=== PATIENT | female | born 1955 | race Caucasian/White ===

== ENCOUNTER 2018-09-14 02:50 | Emergency (ER) | payer BC ==
--- OUTSIDE RECORDS SUMMARY | 2018-09-14 02:53 | XMS REPORT | Continuity of Care Document ---
:1955 Author Organization Interface Problems Problem Status Onset Classification Date Comments Source Date Reported Depression with Active Finding 08/16/[address] [facility] [place] Dyspnea Active Finding 08/16/[address] [facility] [place] Hyperlipidemia Active Finding 08/16/[address] [facility] [place] COPD Active Finding 08/16/[address] [facility] [place] History of Active Finding 08/16/[address] [facility] [address] abdominal aortic [facility] repair [place] GERD Active Finding 08/16/[address] [facility] [place] Hypertension Active Finding 08/16/[address] [facility] [place] Hypokalemia Resolved Finding 08/16/[address] [facility] [place] Medications Medication Details Route Status Patient Ordering Order Source Instructions Provider Date Alprazolam NEEDED Active [facility] [place] Formoterol TWICE Active Prezas [facility] Fumarate DAILY [facility]16 [facility] [place] Prednisone TWICE Active Prezas [facility] DAILY [facility]16 [facility] [place] Azithromycin ZPAK Active Prezas [facility] Tab [facility]16 [facility] [place] Atorvastatin AT BEDTIME Active [facility] Calcium [facility]16 [facility] [place] Losartan/Hydroc DAILY Active [facility] hlorothiazide [facility]16 [facility] [place] Sertraline Hcl DAILY Active [facility] [place] Tiotropium DAILY Active [facility] [place] Metoprolol DAILY Active [facility] Succinate [facility]16 [facility] [place] Allergies, Adverse Reactions, Alerts Substance Category Reaction Severity Reaction Status Date Comments Source type Reported No Known Unknown Allergy to Active [facility] Drug Substance 7 [facility] Allergies [place] Immunizations Immunization Date Given Site Status Last Updated Comments Source Results Order Name Results Value Reference Date Interpretation Comments Source Range Laboratory Prothrombin 10.6 9.5 - 12.5 08/15 [facility] Studies Time SECONDS [facility] [place] Laboratory INR 0.90 08/15 [facility] Studies International /2016 [facility] Normalized [place] Ratio Laboratory Activated 22.8 24.3 - 08/15 [facility] Studies Partial SECONDS 36.9 [facility] Thromboplast [place] Time Laboratory Platelet 325 K/uL 152 - 406 08/15 [facility] Count [facility] [place] Laboratory Mean Platelet 7.6 fL 7.6 - 11.3 08/15 [facility] Volume [facility] [place] Laboratory Urine pH 5.5 05/22 [facility] [place] Laboratory Urine Total Urine Total 05/22 [facility] Protein Protein [facility] [place] Laboratory Urine null 05/22 [facility] Studies Specific [facility] [place] Laboratory Urine Nitrite Urine 05/22 [facility] Studies Nitrite [facility] [place] Laboratory Urine Urine 05/22 [facility] Studies Leukocyte Leukocyte /2016 [facility] Esterase Esterase [place] Laboratory Urine Ketones Urine 05/22 [facility] Studies Ketones [facility] [place] Laboratory Urine Glucose Urine 05/22 [facility] Studies Glucose [facility] [place] Laboratory Urine Blood Urine Blood 05/22 [facility] [place] Laboratory Urine WBC null 05/22 [facility] Studies [facility] [place] Laboratory Urine null 05/22 [facility] Studies Squamous [facility] Epithelial [place] Cells Laboratory Urine RBC null 05/22 [facility] Studies [facility] [place] Laboratory Urine Hyaline null 05/22 [facility] Studies Casts [facility] [place] Laboratory Urine Culture Urine 05/22 [facility] Studies Reflexed Culture /2016 [facility] Reflexed [place] Laboratory Urine Coarse Urine 05/22 [facility] Studies Granular Coarse [facility] Casts Granular [place] Casts Laboratory Urine Calcium Urine 05/22 [facility] Studies Oxalate Calcium [facility] - Crystals Oxalate [place] Crystals Laboratory Urine null 05/22 [facility] Studies Bacteria [facility] [place] Laboratory Segmented 66 % 40 - 80 05/[address] [facility] Studies Neutrophils /2016 [facility] [place] Laboratory Monocytes 9 % 0 - 10 05/22 [facility] St[facility] Studies /2016 [facility] [place] Laboratory Metamyelocyte 2 % 0 - 0 05/22 [facility]. Studies s /2016 [facility] [place] Laboratory Lymphocytes 17 % 15 - 42 05/22 [facility]. Studies /2016 [facility] [place] Laboratory Eosinophils 1 % 0 - 3 05/22 [facility]. Studies /2016 [facility] [place] Laboratory Clumped Clumped 05/22 [facility] Studies Platelets Platelets /2016 [facility] [place] Laboratory Blood Blood 05/22 [facility] Studies Morphology Morphology /2016 [facility] Comment Comment [place] Laboratory Band 4 % 0 - 1 05/22 [facility]. Studies Neutrophils /2016 [facility] [place] Laboratory Atypical 1 05/22 [facility] Studies Lymphocytes /2016 [facility] [place] Laboratory White Blood 11.7 K/uL 4.3 - 10.9 05/22 [facility] Studies Count /2016 [facility] [place] Laboratory Red Cell 13.0 % 12.1 - 05/22 [facility] Studies Distribution 15.2 [facility] Width [place] Laboratory Red Blood 4.92 M/uL 3.86 - 05/22 [facility] Studies Count 4.86 /2016 [facility] [place] Laboratory Neutrophils % 71.6 % 41.7 - 05/22 [facility]. Studies 73.7 /2016 [facility] [place] Laboratory Monocytes % 10.5 % 3.3 - 12.3 05/22 [facility]. Studies /2016 [facility] [place] Laboratory Mean 96.0 fL 80 - 100 05/22 [facility] Studies Corpuscular /2016 [facility] Volume [place] Laboratory Mean 34.0 g/dL 32.0 - 05/22 [facility] Studies Corpuscular 36.0 /2016 [facility] Hemoglobin [place] Concent Laboratory Mean 32.7 pg 27.0 - 05/22 [facility] Studies Corpuscular 35.0 /2016 [facility] Hemoglobin [place] Laboratory Lymphocytes % 16.6 % 15.3 - 05/22 [facility]. Studies 44.8 /2016 [facility] [place] Laboratory Hemoglobin 16.1 g/dL 12.0 - 05/22 [facility]. Studies 15.0 /2016 [facility] [place] Laboratory Hematocrit 47.3 % 36.0 - 05/22 [facility] St[facility] Studies 45.0 /2017 [facility] [place] Laboratory Eosinophils % 0.7 % 0 - 4.4 05/22 [facility] St[facility] Studies /2016 [facility] [place] Laboratory Basophils % 0.6 % 0 - 1.3 05/22 [facility] St[facility] Studies /2016 [facility] [place] Laboratory Absolute 8.4 K/uL 1.8 - 8.0 05/22 [facility] St. Studies Neutrophil /2016 [facility] [place] Laboratory Absolute 1.2 K/uL 0.1 - 1.3 05/22 [facility] St. Studies Monocytes /2016 [facility] - (CBC) [place] Laboratory Absolute 1.9 K/uL 0.7 - 4.9 05/22 [facility] St. Studies Lymphocytes [facility] - (CBC) [place] Laboratory Absolute 0.1 K/uL 0 - 0.5 05/22 [facility] St. Studies Eosinophils [facility] - (CBC) [place] Laboratory Absolute 0.1 K/uL 0 - 0.5 05/22 [facility]. Studies Basophils [facility] - (CBC) [place] Laboratory Rapid null 05/22 [facility]. Studies Troponin I /2016 [facility] [place] Laboratory Sodium Level 137 mEq/L 135 - 145 05/22 [facility] St[facility] Studies /2016 [facility] [place] Laboratory Potassium 3.0 mEq/L 3.6 - 5.0 05/22 [facility] St[facility] Studies Level /2016 [facility] [place] Laboratory Chloride 95 mEq/L 101 - 111 05/22 [facility] St[facility] Studies Level /2016 [facility] [place] Laboratory Carbon 30 mEq/L 21 - 31 05/22 [facility] St[facility] Studies Dioxide Level /2016 [facility] [place] Laboratory Total 0.4 mg/dL 0.3 - 1.2 05/22 [facility]. Studies Bilirubin /2016 [facility] [place] Laboratory Serum Total 8.3 g/dL 6.0 - 8.3 05/22 [facility]. Studies Protein /2016 [facility] [place] Laboratory Globulin 4.0 g/dL 2.3 - 3.5 05/22 [facility]. Studies /2016 [facility] [place] Laboratory Estimat 64 mL/min 90 05/22 [facility] St[facility] Studies Glomerular /2016 [facility] - Filtration [place] Rate Laboratory Direct 0.1 mg/dL 0 - 0.2 05/22 [facility] Studies Bilirubin /2016 [facility] [place] Laboratory Creatinine 0.89 mg/dL 0.44 - 09 [facility] St[facility] Studies 1.00 /2016 [facility] [place] Laboratory Blood Urea 21 mg/dL 6 - 20 05/22 [facility]. Studies Nitrogen /2016 [facility] [place] Laboratory Aspartate 23 IU/L 10 - 42 05/22 [facility] Studies Amino Transf /2016 [facility] - (AST/SGOT) [place] Laboratory Alkaline 80 IU/L 42 - 121 05/22 [facility]. Studies Phosphatase /2016 [facility] [place] Laboratory Albumin/Globu 1.1 1.1 - 1.8 05/22 [facility]. Studies josé manuel Ratio /2016 [facility] [place] Laboratory Albumin 4.3 g/dL 3.2 - 5.5 05/22 [facility]. Studies [facility] [place] Laboratory Alanine 26 IU/L 10 - 60 05/22 [facility] Studies Aminotransfer Lisandrabryson - ase [place] (ALT/SGPT) Laboratory Lipase 32 U/L 22 - 51 05/22 [facility]. Studies [facility] [place] Laboratory Glucose Level 95 mg/dL 65 - 120 05/22 [facility]. Studies [facility] [place] Laboratory Calcium Level 9.9 mg/dL 8.5 - 10.5 05/22 [facility]. Studies [facility] [place] Vital Signs Vital Sign Value Date Comments Source Temperature Oral (F) 97 F 08/15/2017 [facility] Freddy Liu Heart Rate 51 08/15/2017 [facility] Freddy Liu Respitory Rate 18 [facility] Systolic (mm Hg) 116 08/15/2017 [facility] Freddy Gilliamt Diastolic (mm Hg) 64 08/15/2017 [facility] Freddy Liu Height 5 08/15/2017 [facility] Freddy Liu Weight 138 08/15/2017 [facility] Freddy Liu Encounters Location Location Encounter Encounter Reason Attending ADM DC Status Source Details Type Number For Provider Date Date Visit [facility] Departed [id number] 05/22 05/22 [facility] [place] [facility] [id number] 08/15 08/15 [facility] [place] [facility] [place] [facility] [place] [id number] [facility] Procedures Procedure Code Date Perfomer Comments Source Spine Lumbar Wo [id number] [facility] Short Con 7 - [place] C Spine Wo Con [id number] [facility] 7 - [place] Myelography [id number] [facility] Lumbar 7 - [place] Myelography C [id number] [facility] Spine 7 - [place] Abdomen & Pelvis [id number] [facility] Short W Contrast 7 - [place] Chest Single [id number] [facility] View 7 - [place]
[2018-09-14] MEDS ORDERED: NA CHLORIDE 0.9% 1,000 ML ONE (03:10)
[2018-09-14] MEDS ORDERED: ONDANSETRON 4 MG/2 ML VIAL ONE (03:10)
[2018-09-14 03:30] LABS: Absolute Lymphocytes (CBC) 1.4 K/uL (0.7-4.9); Absolute Monocytes 1.3 K/uL (0.1-1.3); Absolute Neutrophil 7.5 K/uL (1.8-8.0); Basophils % 0.4 % (0-1.3); Eosinophils % 1.1 % (0-4.4); Hematocrit 28.7 % (36.0-45.0); Lymphocytes % 13.3 % (15.3-44.8); MPV 7.9 fL (7.6-11.3); Monocytes % 12.7 % (3.3-12.3); RBC Red Blood Cell Count 3.04 M/uL (3.86-4.86)
[2018-09-14 03:31] LABS: Protime INR 1.08
[2018-09-14 03:50] LABS: Arterial Blood Carboxyhemoglob 1.6 % (0-1.5); Blood Gas Oxyhemoglobin 84.3 % (94-97); Blood O2 Saturation 86.6 % (92-98.5)
[2018-09-14 03:59] LABS: ALT/SGPT 54 U/L (12-78); AST/SGOT 79 U/L (15-37); Albumin 2.5 g/dL (3.4-5.0); Alkaline Phosphatase 50 U/L (45-117); BUN Blood Urea Nitrogen 7 mg/dL (7-18); Bicarbonate 33 mmol/L (21-32); Bilirubin Direct 0.3 mg/dL (0-0.2); Bilirubin Total 0.9 mg/dL (0.2-1.0); Glucose Level 94 mg/dL (74-106); Lipase 77 U/L (73-393); Magnesium 1.9 mg/dL (1.8-2.4); NT PRO-BNP 3803 pg/mL (<125); Protein, Total 5.8 g/dL (6.4-8.2); Sodium Level 142 mmol/L (136-145); Troponin (Emerg Dept Use Only) 0.19 ng/mL (0.0-0.045)
[2018-09-14 04:00] LABS: Potassium 2.8 mmol/L (3.5-5.1)
[2018-09-14 04:01] LABS: Urine Blood 1+ (NEG); Urine Glucose NEGATIVE (NEG); Urine Protein NEGATIVE (NEG); Urine pH 6.5 (5.0-7.0)
[2018-09-14] MEDS ORDERED: IPRATROPIUM BROM 0.5MG/2.5ML ONE (04:06)
[2018-09-14] MEDS ORDERED: METHYLPREDNISOLONE 125 MG INJ ONE (04:06)
[2018-09-14] MEDS ORDERED: ALBUTEROL 2.5 MG/3 ML NEB SOL ONE (04:06)
[2018-09-14] MEDS ORDERED: FAMOTIDINE 20 MG/2 ML VIAL IV ONE (04:06)
[2018-09-14] MEDS ORDERED: PIPER/TAZO/NS 3.375gm 3.375 GM/100 ML BAG ONE (04:07)
[2018-09-14] MEDS ORDERED: NS KCL 20MEQ 1,000 ML IV ONE (04:31)
[2018-09-14 04:32] LABS: Blood Morphology Comment NOT SEEN (NOT SEEN); Platelet Estimate ADEQ; Urine White Blood Cell Casts OK
[2018-09-14] MEDS ORDERED: KCL 20 MEQ/100 mL IVPB 20 MEQ/100 ML BAG IV ONE ×2 (04:32→06:45)
[2018-09-14] MEDS ORDERED: FENTANYL CITR 100 MCG/2 ML ONE (06:45)
--- NOTE | 2018-09-14 07:21 | ER ---
Nurse's Notes [facility] Name: Amanda Malik Age: 63 yrs Sex: Female : 1955 Arrival Date: 09/14/2018 Time: 02:51 Bed 17 Private MD: Diagnosis: Dyspnea;Hypoxemia;Abdominal aortic aneurysm, ruptured-ENDOLEAK, 4.5 CM SACK;Chronic obstructive pulmonary disease with (acute) exacerbation;Solitary pulmonary nodule;Hypokalemia;Anemia, unspecified Presentation: 09/14 02:53 Presenting complaint: EMS states: Pt was released yesterday after having back surgery. tl2 Pt reports nausea and vomiting 2 hours ago. Transition of care: patient was not received from another setting of care. Onset of symptoms was September 14, 2018 at 00:00. Risk Assessment: Do you want to hurt yourself or someone else? Patient reports no desire to harm self or others. Initial Sepsis Screen: Does the patient meet any 2 criteria? No. Patient's initial sepsis screen is negative. Does the patient have a suspected source of infection? No. Patient's initial sepsis screen is negative. Care prior to arrival: IV initiated. 22 GA, in the left antecubital area. 02:53 Method Of Arrival: EMS: [facility] tl2 02:53 Acuity: EMILY 3 tl2 Triage Assessment: 02:57 General: Appears in no apparent distress. uncomfortable, Behavior is calm. Pain: tl2 Complains of pain in back. Neuro: Level of Consciousness is awake, obeys commands, lethargic, Oriented to person, place, time, situation. Cardiovascular: Denies chest pain. Respiratory: Reports shortness of breath Airway is patent Respiratory effort is even, unlabored, Respiratory pattern is regular, symmetrical, Onset: The symptoms/episode began/occurred this morning, the patient has mild shortness of breath. GI: Reports nausea, vomiting. : No signs and/or symptoms were reported regarding the genitourinary system. Derm: Skin is pink, warm \T\ dry. Musculoskeletal: Circulation, motion, and sensation intact. Historical: - Allergies: 02:57 No Known Allergies; tl2 - Home Meds: 02:57 Albuterol Inhl [Active]; Breo Ellipta 200-25 mcg/dose inhalation dsdv 1 puff once daily tl2 [Active]; 03:06 omeprazole 20 mg Oral cpDR 1 cap once daily [Active]; metoprolol succinate 25 mg oral tl2 Tb24 1 tab BID [Active]; escitalopram oxalate 20 mg oral tab 1 tab once daily [Active]; Tylenol #3 Oral [Active]; atorvastatin 10 mg oral tab 1 tab once daily [Active]; cyclobenzaprine 10 mg Oral tab 1 tab 3 times per day [Active]; - PMHx: 02:57 COPD; Hypertension; High Cholesterol; tl2 - PSHx: 02:57 back surgery; tl2 - Immunization history:: Adult Immunizations up to date. - Social history:: Smoking status: Patient/guardian denies using tobacco. - Ebola Screening: : No symptoms or risks identified at this time. - Family history:: not pertinent. Screenin:59 Abuse screen: Denies threats or abuse. Nutritional screening: No deficits noted. tl2 Tuberculosis screening: No symptoms or risk factors identified. Fall Risk IV access (20 points). Gait- Weak (10 pts.). Assessment: 03:03 General: see triage assessment. tl2 07:34 General: Appears in no apparent distress. comfortable, Behavior is calm, cooperative, em Denies fever. Neuro: Level of Consciousness is awake, alert, obeys commands, Oriented to person, place, time, situation. Cardiovascular: Capillary refill < 3 seconds Patient's skin is warm and dry. Rhythm is sinus rhythm. Respiratory: Reports shortness of breath Airway is patent Respiratory effort is even, unlabored, Respiratory pattern is regular, symmetrical, Breath sounds are clear bilaterally. GI: Abdomen is round. Derm: proximate 6 inch surgical incision with clean and dry ABD pad noted to lumbar area. Musculoskeletal: Range of motion: intact in all extremities. 08:24 Reassessment: Patient appears in no apparent distress at this time. Patient and/or em family updated on plan of care and expected duration. Pain level reassessed. Patient is alert, oriented x 3, equal unlabored respirations, skin warm/dry/pink. 09:10 Reassessment: Patient appears in no apparent distress at this time. Patient and/or em family updated on plan of care and expected duration. Pain level reassessed. Patient is alert, oriented x 3, equal unlabored respirations, skin warm/dry/pink. assisted pt in turning to the left side. 09:45 Reassessment: Patient appears in no apparent distress at this time. Patient and/or em family updated on plan of care and expected duration. Pain level reassessed. Patient is alert, oriented x 3, equal unlabored respirations, skin warm/dry/pink. 10:30 Reassessment: Patient appears in no apparent distress at this time. Patient and/or em family updated on plan of care and expected duration. Pain level reassessed. Patient is alert, oriented x 3, equal unlabored respirations, skin warm/dry/pink. 11:05 Reassessment: Patient appears in no apparent distress at this time. report given to em Leslie Dunne RN at [facility], pending EMS transportation. 11:30 Reassessment: Patient appears in no apparent distress at this time. Patient and/or em family updated on plan of care and expected duration. Pain level reassessed. Patient is alert, oriented x 3, equal unlabored respirations, skin warm/dry/pink. report given to EMS. Vital Signs: 02:57 BP 105 / 65; Pulse 96; Resp 18; Temp 98.6(O); Pulse Ox 94% on R/A; Weight 63.5 kg; tl2 Height 5 ft. 3 in. (160.02 cm); Pain 4/10; 04:02 BP 125 / 73; Pulse 93; Resp 20; Pulse Ox 94% on 1 lpm NC; tl2 05:36 BP 115 / 69; Pulse 91; Resp 20; Pulse Ox 95% on 1 lpm NC; tl1 06:19 BP 116 / 100; Pulse 93; Resp 22; Pulse Ox 96% on 1 lpm NC; tl1 06:43 BP 112 / 65; Pulse 87; Resp 18; Pulse Ox 93% on 1 lpm NC; Pain 0/10; tl2 07:15 BP 104 / 63; Pulse 85; Resp 18; Temp 99.2(O); Pulse Ox 100% on 1 lpm NC; Pain 8/10; em 08:47 BP 111 / 77; Pulse 94; Resp 18; Temp 99.2(O); Pulse Ox 96% on 2 lpm NC; mh5 09:31 BP 133 / 78; Pulse 86; Resp 18; Pulse Ox 95% on 1 lpm NC; Pain 8/10; em 10:37 BP 143 / 92; Pulse 85; Resp 18; Temp 98.6(O); Pulse Ox 97% on 2 lpm NC; em 11:30 BP 154 / 82; Pulse 84; Resp 18; Pulse Ox 95% on 1 lpm NC; em 02:57 Body Mass Index 24.80 (63.50 kg, 160.02 cm) tl2 ED Course: 02:51 Patient arrived in ED. ds1 02:55 Triage completed. tl2 02:57 Arm band placed on right wrist. tl2 02:59 Patient has correct armband on for positive identification. Placed in gown. Bed in low tl2 position. Call light in reach. Side rails up X2. Adult w/ patient. 02:59 Maintain EMS IV. Dressing intact. Good blood return noted. Site clean \T\ dry. Gauge \T\ tl 2 site: 22 g L AC. 03:01 Rd Chamorro MD is Attending Physician. [facility] 03:06 X-ray completed. Portable x-ray completed in exam room. Patient tolerated procedure kw well. 03:08 XRAY Chest (1 view) In Process Unspecified. EDMS 03:42 Urine Culture Sent. tl2 04:48 CT completed. Patient tolerated procedure well. Patient moved to CT via stretcher. Patient moved back from CT. 04:51 CT Aorta for Dissection In Process Unspecified. EDMS 04:55 Inserted 18 gauge 8 cm midline to right upper brachial vein on first attempt. Line with fc good blood return and flushes well. 05:01 Princess Mcnally, ZAYRA is Primary Nurse. tl1 07:30 William cath inserted, using sterile technique, 16 Fr., by me, balloon inflated, Patient mh5 tolerated well. 11:40 No provider procedures requiring assistance completed. Patient transferred, IV remains em in place. Administered Medications: 03:02 Drug: NS 0.9% 1000 ml Route: IV; Rate: 1 bolus; Site: left antecubital; tl1 04:00 Follow up: IV Status: Completed infusion tl1 03:03 Drug: Zofran 4 mg Route: IVP; Infused Over: 2 mins; Site: left antecubital; tl1 06:43 Follow up: Response: No adverse reaction; Marked relief of symptoms; Nausea is decreasedtl1 04:15 Drug: Albuterol - atroVENT (3:1) (2.5 mg - 0.5 mg) 3 ml Route: Nebulizer; tl2 06:41 Follow up: Response: No adverse reaction; No change in condition tl1 04:18 Drug: SOLU-Medrol 125 mg Route: IVP; Site: left antecubital; tl2 06:41 Follow up: Response: No adverse reaction; No change in condition tl1 04:18 Drug: Pepcid 20 mg Route: IVP; Site: left antecubital; tl2 06:40 Follow up: Response: No adverse reaction; No change in condition tl1 05:01 Drug: Potassium Chloride 20 mEq Route: IV; Rate: per protocol; Site: right upper arm; tl1 06:39 Follow up: IV Status: Completed infusion tl1 05:02 Drug: Zosyn 3.375 grams Route: IVPB; Infused Over: 60 mins; Site: left antecubital; tl1 06:00 Follow up: IV Status: Completed infusion tl1 06:40 Drug: Potassium Chloride 20 mEq Route: IV; Rate: per protocol; Site: right upper arm; tl1 09:23 Follow up: IV Status: Completed infusion; IV Intake: 100ml em 06:40 Drug: fentaNYL (PF) 25 mcg Route: IVP; Infused Over: 2 mins; Site: left antecubital; tl1 06:43 Follow up: Response: No adverse reaction; Marked relief of symptoms; Pain is decreased tl1 09:17 Drug: NS 0.9% with KCl 20 mEq/L 1000 ml Route: IV; Rate: 125 ml/hr; Site: right upper la1 arm; 11:42 Follow up: IV Status: Infusion continued upon transfer; IV Intake: 300ml em Intake: 09:23 IV: 100ml; Total: 100ml. em 11:42 IV: 300ml; Total: 400ml. em Outcome: 07:21 ER care complete, transfer ordered by MD. valera 11:40 Transferred by ground EMS to [facility], Transfer form completed. em X-rays sent w/ patient. 11:40 Condition: good 11:40 Instructed on the need for transfer, Demonstrated understanding of instructions. 11:41 Patient left the ED. em Signatures: Dispatcher [employer] [address] Dale MD MD cha Hagler, Ervin eh Chretien, Felicia RN RN fc Jacob Gong, GERIATRIC ASSISTANT GERIATRIC ASSISTANT em Perez, Gisselle ds1 Gianna Elias Lee RN RN la1 Princess Mcnally RN RN tl1 Romana Houston, RN RN tl2 Alexandria Bridges [facility] Corrections: (The following items were deleted from the chart) 08:46 08:44 William cath inserted, using sterile technique, 16 Fr., by nv, balloon inflated, [facility] Patient tolerated well. [facility] 09:31 07:15 BP 104 / 63; Pulse 85bpm; Resp 18bpm; Pulse Ox 100% RA; Temp 99.2F Oral; Pain em 8/10; em
--- NOTE | 2018-09-14 07:21 | EDPHYS ---
Physician Documentation [facility] Name: Amanda Malik Age: 63 yrs Sex: Female : 1955 Arrival Date: 09/14/2018 Time: 02:51 Bed 17 Private MD: ED Physician Rd Chamorro HPI: 09/14 03:34 This 63 yrs old Female presents to ER via EMS with complaints of Shortness Of moraima Breath, Nausea/Vomiting. 03:34 The patient has shortness of breath at rest. Onset: The symptoms/episode began/occurred moraima 4 day(s) ago. Duration: The symptoms are continuous, and are steadily getting worse. The patient's shortness of breath has no apparent modifying factors. Associated signs and symptoms: The patient has no apparent associated signs or symptoms. Severity of symptoms: At their worst the symptoms were mild moderate in the emergency department the symptoms are unchanged. The patient has not experienced similar symptoms in the past. Historical: - Allergies: 02:57 No Known Allergies; tl2 - Home Meds: 02:57 Albuterol Inhl [Active]; Breo Ellipta 200-25 mcg/dose inhalation dsdv 1 puff once daily tl2 [Active]; 03:06 omeprazole 20 mg Oral cpDR 1 cap once daily [Active]; metoprolol succinate 25 mg oral tl2 Tb24 1 tab BID [Active]; escitalopram oxalate 20 mg oral tab 1 tab once daily [Active]; Tylenol #3 Oral [Active]; atorvastatin 10 mg oral tab 1 tab once daily [Active]; cyclobenzaprine 10 mg Oral tab 1 tab 3 times per day [Active]; - PMHx: 02:57 COPD; Hypertension; High Cholesterol; tl2 - PSHx: 02:57 back surgery; tl2 - Immunization history:: Adult Immunizations up to date. - Social history:: Smoking status: Patient/guardian denies using tobacco. - Ebola Screening: : No symptoms or risks identified at this time. - Family history:: not pertinent. ROS: 03:35 Constitutional: Negative for fever, chills, and weight loss, Eyes: Negative for injury, moraima pain, redness, and discharge, ENT: Negative for injury, pain, and discharge, Neck: Negative for injury, pain, and swelling, Cardiovascular: Negative for chest pain, palpitations, and edema, : Negative for injury, bleeding, discharge, and swelling, MS/Extremity: Negative for injury and deformity, Skin: Negative for injury, rash, and discoloration, Psych: Negative for depression, anxiety, suicide ideation, homicidal ideation, and hallucinations, Allergy/Immunology: Negative for hives, rash, and allergies, Endocrine: Negative for neck swelling, polydipsia, polyuria, polyphagia, and marked weight changes, Hematologic/Lymphatic: Negative for swollen nodes, abnormal bleeding, and unusual bruising. 03:35 Respiratory: Positive for shortness of breath. 03:35 Abdomen/GI: Positive for abdominal cramps, abdominal distension. 03:35 Back: Positive for decreased range of motion, pain at rest, pain with movement. 04:11 Respiratory: Positive for moraima 04:11 Neuro: Positive for altered mental status, weakness. Exam: 03:35 Constitutional: This is a well developed, well nourished patient who is awake, alert, moraima and in no acute distress. Head/Face: Normocephalic, atraumatic. Eyes: Pupils equal round and reactive to light, extra-ocular motions intact. Lids and lashes normal. Conjunctiva and sclera are non-icteric and not injected. Cornea within normal limits. Periorbital areas with no swelling, redness, or edema. ENT: Nares patent. No nasal discharge, no septal abnormalities noted. Tympanic membranes are normal and external auditory canals are clear. Oropharynx with no redness, swelling, or masses, exudates, or evidence of obstruction, uvula midline. Mucous membranes moist. Neck: Trachea midline, no thyromegaly or masses palpated, and no cervical lymphadenopathy. Supple, full range of motion without nuchal rigidity, or vertebral point tenderness. No Meningismus. Chest/axilla: Normal chest wall appearance and motion. Nontender with no deformity. No lesions are appreciated. Cardiovascular: Regular rate and rhythm with a normal S1 and S2. No gallops, murmurs, or rubs. Normal PMI, no JVD. No pulse deficits. Female : Normal external genitalia. Skin: Warm, dry with normal turgor. Normal color with no rashes, no lesions, and no evidence of cellulitis. MS/ Extremity: Pulses equal, no cyanosis. Neurovascular intact. Full, normal range of motion. Neuro: Awake and alert, GCS 15, oriented to person, place, time, and situation. Cranial nerves II-XII grossly intact. Motor strength 5/5 in all extremities. Sensory grossly intact. Cerebellar exam normal. Normal gait. Psych: Awake, alert, with orientation to person, place and time. Behavior, mood, and affect are within normal limits. 03:35 Respiratory: the patient does not display signs of respiratory distress, Respirations: no acute changes, Breath sounds: decreased breath sounds, rhonchi, that are mild, are scattered, Respiratory rate: 18 04:11 Musculoskeletal/extremity: DVT Exam: No signs of deep vein thrombosis. no pain, no moraima swelling, no tenderness, negative Homans' sign noted on exam, no appreciated bluish discoloration, no erythema, no increased warmth. 04:11 Respiratory: Respirations: Breath sounds: moraima Vital Signs: 02:57 BP 105 / 65; Pulse 96; Resp 18; Temp 98.6(O); Pulse Ox 94% on R/A; Weight 63.5 kg; tl2 Height 5 ft. 3 in. (160.02 cm); Pain 4/10; 04:02 BP 125 / 73; Pulse 93; Resp 20; Pulse Ox 94% on 1 lpm NC; tl2 05:36 BP 115 / 69; Pulse 91; Resp 20; Pulse Ox 95% on 1 lpm NC; tl1 06:19 BP 116 / 100; Pulse 93; Resp 22; Pulse Ox 96% on 1 lpm NC; tl1 06:43 BP 112 / 65; Pulse 87; Resp 18; Pulse Ox 93% on 1 lpm NC; Pain 0/10; tl2 07:15 BP 104 / 63; Pulse 85; Resp 18; Temp 99.2(O); Pulse Ox 100% on 1 lpm NC; Pain 8/10; em 08:47 BP 111 / 77; Pulse 94; Resp 18; Temp 99.2(O); Pulse Ox 96% on 2 lpm NC; mh5 09:31 BP 133 / 78; Pulse 86; Resp 18; Pulse Ox 95% on 1 lpm NC; Pain 8/10; em 10:37 BP 143 / 92; Pulse 85; Resp 18; Temp 98.6(O); Pulse Ox 97% on 2 lpm NC; em 11:30 BP 154 / 82; Pulse 84; Resp 18; Pulse Ox 95% on 1 lpm NC; em 02:57 Body Mass Index 24.80 (63.50 kg, 160.02 cm) tl2 MDM: 03:01 Patient medically screened. [facility] 03:37 Data reviewed: vital signs, nurses notes, lab test result(s), cardiac enzymes, CBC, [facility] electrolytes, hepatic panel, urinalysis, EKG, radiologic studies, CT scan, plain films. 09/14 02:53 Order name: Basic Metabolic Panel; Complete Time: 05:59 [facility] 09/14 02:53 Order name: CBC with Diff; Complete Time: 05:59 [facility] 09/14 02:53 Order name: LFT's; Complete Time: 05:59 [facility] 09/14 02:53 Order name: Magnesium; Complete Time: 05:59 [facility] 09/14 02:53 Order name: NT PRO-BNP; Complete Time: 05:59 [facility] 09/14 02:53 Order name: PT-INR; Complete Time: 05:59 [facility] 09/14 02:53 Order name: Troponin (emerg Dept Use Only); Complete Time: 05:59 [facility] 09/14 02:53 Order name: XRAY Chest (1 view); Complete Time: 09:25 [facility] 09/14 02:53 Order name: Lipase; Complete Time: 05:59 [facility] 09/14 03:34 Order name: ABG; Complete Time: 05:59 [facility] 09/14 03:34 Order name: Blood Culture Adult (2) [facility] 09/14 03:34 Order name: Urine Culture [facility] 09/14 03:51 Order name: Urine Dipstick--Ancillary (enter results); Complete Time: 05:59 09/14 04:32 Order name: CBC Smear Scan [facility] 09/14 02:53 Order name: EKG; Complete Time: 02:53 [facility] 09/14 02:53 Order name: Cardiac monitoring; Complete Time: 03:31 [facility] 09/14 02:53 Order name: EKG - Nurse/Tech; Complete Time: 03:31 [facility] 09/14 02:53 Order name: IV Saline Lock; Complete Time: 03:11 [facility] 09/14 03:34 Order name: CT Aorta for Dissection; Complete Time: 09:10 [facility] 09/14 02:53 Order name: Labs collected and sent; Complete Time: 03:11 [facility] 09/14 02:53 Order name: O2 Per Protocol; Complete Time: 03:03 [facility] 09/14 02:53 Order name: O2 Sat Monitoring; Complete Time: 03:03 [facility] 09/14 03:34 Order name: Urine Dipstick-Ancillary (obtain specimen); Complete Time: 03:40 [facility] 09/14 04:17 Order name: IV Saline Lock - Large Bore; Complete Time: 05:02 moraima 09/14 07:23 Order name: NPO; Complete Time: 07:32 [facility] Administered Medications: 03:02 Drug: NS 0.9% 1000 ml Route: IV; Rate: 1 bolus; Site: left antecubital; tl1 04:00 Follow up: IV Status: Completed infusion tl1 03:03 Drug: Zofran 4 mg Route: IVP; Infused Over: 2 mins; Site: left antecubital; tl1 06:43 Follow up: Response: No adverse reaction; Marked relief of symptoms; Nausea is decreasedtl1 04:15 Drug: Albuterol - atroVENT (3:1) (2.5 mg - 0.5 mg) 3 ml Route: Nebulizer; tl2 06:41 Follow up: Response: No adverse reaction; No change in condition tl1 04:18 Drug: SOLU-Medrol 125 mg Route: IVP; Site: left antecubital; tl2 06:41 Follow up: Response: No adverse reaction; No change in condition tl1 04:18 Drug: Pepcid 20 mg Route: IVP; Site: left antecubital; tl2 06:40 Follow up: Response: No adverse reaction; No change in condition tl1 05:01 Drug: Potassium Chloride 20 mEq Route: IV; Rate: per protocol; Site: right upper arm; tl1 06:39 Follow up: IV Status: Completed infusion tl1 05:02 Drug: Zosyn 3.375 grams Route: IVPB; Infused Over: 60 mins; Site: left antecubital; tl1 06:00 Follow up: IV Status: Completed infusion tl1 06:40 Drug: Potassium Chloride 20 mEq Route: IV; Rate: per protocol; Site: right upper arm; tl1 09:23 Follow up: IV Status: Completed infusion; IV Intake: 100ml em 06:40 Drug: fentaNYL (PF) 25 mcg Route: IVP; Infused Over: 2 mins; Site: left antecubital; tl1 06:43 Follow up: Response: No adverse reaction; Marked relief of symptoms; Pain is decreased tl1 09:17 Drug: NS 0.9% with KCl 20 mEq/L 1000 ml Route: IV; Rate: 125 ml/hr; Site: right upper la1 arm; 11:42 Follow up: IV Status: Infusion continued upon transfer; IV Intake: 300ml em Disposition: 09/14/18 07:21 Transfer ordered to [facility]. Diagnosis are Dyspnea, Hypoxemia, Abdominal aortic aneurysm, ruptured - ENDOLEAK, 4.5 CM SACK, Chronic obstructive pulmonary disease with (acute) exacerbation, Solitary pulmonary nodule, Hypokalemia, Anemia, unspecified. - Reason for transfer: Higher level of care. - [facility]. - Condition is Serious. - Problem is new. - Symptoms have improved. Signatures: Dispatcher [employer] [address] Chamorro MD MD cha Mickail, Joel, PA PA Jacob Serrato, TWISTING FRAME OPERATOR TWISTING FRAME OPERATOR Jt Kelly PA PA [id number] Jitendra Nunes RN RN la1 Princess Mcnally RN RN tl1 Romana Houston, RN RN tl2 Corrections: (The following items were deleted from the chart) 03:36 02:59 Abdomen Pelvis W Con+CT.RAD.BRZ ordered. [facility] 03:42 03:34 William ordered. [facility] tl2 11:41 07:21 09/14/2018 07:21 Transfer ordered to [facility]. Diagnosis is em Dyspnea; Hypoxemia; Abdominal aortic aneurysm, ruptured - ENDOLEAK, 4.5 CM SACK; Chronic obstructive pulmonary disease with (acute) exacerbation; Solitary pulmonary nodule; Hypokalemia; Anemia, unspecified. Reason for transfer: Higher level of care. Accepting physician is TO [facility], ICU. Condition is Serious. Problem is new. Symptoms have improved. moraima
--- NOTE | 2018-09-14 07:46 | EKG ---
Test Date: 2018-09-14 Test Time: 03:18:47 Infantry Assaultman: ANDRES MEASUREMENT RESULTS: Intervals: Rate: 94 MN: 130 QRSD: 72 QT: 376 QTc: 470 [place]: P: 50 MN: 130 QRS: 44 T: 43 INTERPRETIVE STATEMENTS: Sinus rhythm with occasional premature ventricular complexes Low voltage QRS Nonspecific ST abnormality Abnormal ECG Compared to ECG 09/20/2017 16:46:20 Low QRS voltage now present ST (T wave) deviation now present Sinus tachycardia no longer present T-wave abnormality no longer present Electronically Signed On 09-14-18 07:45:40 PILE DRIVER ENGINEER by Baldemar Nunez
--- NOTE | 2018-09-14 08:52 | RAD REPORT ---
EXAM DESCRIPTION: CT - Angio Aorta For Dissection - 09/14/2018 4:50 am CLINICAL HISTORY: . Chest and abdominal pain COMPARISON: May 2017 CT abdomen TECHNIQUE: Computed tomography angiography of the chest, abdomen pelvis were obtained. 100 cc Isovue 370 was administered intravenously. Coronal and sagittal reconstruction were performed.Preliminary r eport generated by virtual radiologic and review prior to dictation MIP 3D reconstruction was performed All CT scans are performed using dose optimization technique as appropriate and may include automated exposure control or mA/KV adjustment according to patient size. FINDINGS: An aortic dissection is not seen. An aorto bi-iliac stent has been placed into an abdomin al aortic aneurysm. The aneurysm has mildly increased in size from May 2017 currently measuring 4.5 centimeters. Previously it measured 4.2 centimeters. There is a endoleak from a right lumbar art aurora into the posterior aspect of the aneurysm. . The celiac, SMA and MIGUEL ANGEL are patent . Mild narrowing of the celiac artery A lung consolidation is not present. A pericardial effusion is not seen. A pleural effusion is not n oted. 17 millimeter right upper lobe nodule The liver,spleen, pancreas adrenals kidneys demonstrate no acute abnormality. Right renal cortical th inning may be secondary to prior inflammation or ischemia. The appendix is normal. There no evidence diverticulitis. No ascites is noted. Bilateral inguinal hernias contain fat Postsurgical changes involve the lumbar spine. Nonspecific stranding is present within the anterior subcutaneous fat of the pelvis IMPRESSION: Negative for an aortic dissection. An aorto bi-iliac stent. Endoleak from a right lumbar artery into the abdominal aortic aneurysm 17 millimeter right upper lobe nodule. Nuclear medicine PET-CT scan recommended
--- NOTE | 2018-09-14 09:03 | RAD REPORT ---
EXAM DESCRIPTION: Raheem Single View09/14/2018 3:07 am CLINICAL HISTORY: Shortness of breath COMPARISON: September 2017 FINDINGS: A 17 millimeter right upper lobe nodule has developed The left lung appears clear of acute infiltrate. The heart is normal size IMPRESSION: 17 millimeter right upper lobe nodule. Nuclear medicine PET-CT scan recommended
[2018-09-14 11:59] VITALS: TEMP 98.6
[2018-09-14 12:00] VITALS: BP 154/82; O2SAT 95
== END 2018-09-14 11:41 | disposition short-term general hospital (02) ==
LOC: ER 02:50
DX: J44.1 Chronic obstructive pulmonary disease with (acute) exacerbation (principal); R09.02 Hypoxemia; I71.3 Abdominal aortic aneurysm, ruptured; R91.1 Solitary pulmonary nodule; E87.6 Hypokalemia; D64.9 Anemia, unspecified; I10 Essential (primary) hypertension; E78.00 Pure hypercholesterolemia, unspecified
CPT/HCPCS: 36415; 51702; 71045; 71275; 74175; 80048; 80076; 81003; 82805; 83690; 83735; 83880; 84484; 85025; 85610; 87040; 87086; 87088; 87205; 93005; 94640; 99285; J2405; J2543; J2930; J3010; J7030; Q9967

== ENCOUNTER 2019-02-28 18:05 | Inpatient (IN) | payer BC ==
--- OUTSIDE RECORDS SUMMARY | 2019-02-28 18:08 | XMS REPORT | Clinical Summary ---
:1955 Author Organization [facility] Address [address] [place] [address] Care Team Providers Name Role Phone Herman Watkisn Primary Care Provider Allergies No Known Allergies Medications Medication Sig Dispensed Refills Start Date End Date Status metoprolol Take 25 mg by 0 Active (TOPROL-XL) 25 MG 24 mouth 2 (two) hr tablet times daily. zolpidem (AMBIEN) 10 Take 10 mg by 0 Active mg tablet mouth every night as needed for Insomnia. escitalopram oxalate Take 20 mg by 0 Active (LEXAPRO) 10 MG mouth daily. tablet cyclobenzaprine Take 10 mg by 0 Active (FLEXERIL) 10 MG mouth 3 (three) tablet times daily as needed for Muscle spasms. omeprazole (PRILOSEC) Take 20 mg by 0 Active 20 MG capsule mouth daily. atorvastatin Take 10 mg by 0 Active (LIPITOR) 10 MG mouth every tablet evening. acetaminophen-codeine Take 1 tablet by 0 Active (TYLENOL #4) 300-60 mouth every 4 mg per tablet (four) hours as needed for Pain. tiotropium bromide Inhale 18 mcg by 0 Active 2.5 mcg/actuation mouth via inhaler Mist daily. Missing or Apply 1.3 % 0 Active Non-Formulary topically every 12 Medication (twelve) hours Diclofenac Epolamine Topical patch 1.3% . ipratropium Take 2.5 mLs (0.5 75 mL 0 09/19/2018 Active (ATROVENT) 0.02 % mg total) by 0 nebulizer solution nebulization every 6 (six) hours as needed. docusate sodium Take 1 capsule 10 capsule 0 09/17/2018 (COLACE) 100 MG (100 mg total) by 9 capsule mouth 2 (two) times daily for 30 days. polyethylene glycol Take 17 g by mouth 1020 g 0 09/17/2018 (GLYCOLAX) 17 gram 2 (two) times 9 packet daily for 30 days. Active Problems Problem Noted Date AAA (abdominal aortic aneurysm) 09/14/2018 Encounters Date Type Specialty Care Team Description 09/14/2018 - Hospital Encounter General Internal César Guzman 09/20/2018 Medicine MD Miguel 09/14/2018 Travel 09/14/2018 Telephone Internal Medicine Sarah Dalal transfer request MD Kely after 02/27/2018 Social History Tobacco Use Types Packs/Day Years Used Date Former Smoker Cigarettes Quit: 09/11/2009 Smokeless Tobacco: Never Used Sex Assigned at Date Recorded Not on file Job Start Date Occupation Industry Not on file Not on file Not on file Travel History Travel Start Travel End No recent travel history available. Last Filed Vital Signs Vital Sign Reading Time Taken Blood Pressure 113/57 09/20/2018 4:00 PM SCRUB NURSE Pulse 66 09/20/2018 4:00 PM SCRUB NURSE Temperature 36.4 C (97.5 F) 09/20/2018 4:00 PM SCRUB NURSE Respiratory Rate 17 09/20/2018 4:00 PM SCRUB NURSE Oxygen Saturation 99% 09/20/2018 4:00 PM SCRUB NURSE Inhaled Oxygen Concentration 28% 09/19/2018 4:42 PM SCRUB NURSE Weight 67.1 kg (148 lb) 09/14/2018 1:00 PM SCRUB NURSE Height 152.4 cm (5') 09/14/2018 1:00 PM SCRUB NURSE Body Mass Index 28.9 09/14/2018 1:00 PM SCRUB NURSE Plan of Treatment Not on file Procedures Procedure Name Priority Date/Time Associated Comments Diagnosis REPORT OF PROCEDURE - 09/25/2018 2:52 ENDOSCOPY SCAN PM SCRUB NURSE RHYTHM STRIP - SCAN 09/25/2018 2:52 PM SCRUB NURSE CBC W/PLT COUNT & Routine 09/20/2018 4:20 Results for this AUTO DIFFERENTIAL AM SCRUB NURSE procedure are in the results section. CBC W/PLT COUNT & Routine 09/20/2018 4:20 Results for this AUTO DIFFERENTIAL AM SCRUB NURSE procedure are in the results section. BASIC METABOLIC PANEL Routine 09/20/2018 4:20 Results for this (7) AM SCRUB NURSE procedure are in the results section. CT/CTA AAA AND RUNOFF Routine 09/17/2018 2:13 Results for this PM SCRUB NURSE procedure are in the results section. CBC W/PLT COUNT & Routine 09/17/2018 5:36 Results for this AUTO DIFFERENTIAL AM SCRUB NURSE procedure are in the results section. MAGNESIUM Routine 09/17/2018 5:36 Results for this AM SCRUB NURSE procedure are in the results section. PHOSPHORUS Routine 09/17/2018 5:36 Results for this AM SCRUB NURSE procedure are in the results section. CBC W/PLT COUNT & Routine 09/17/2018 5:36 Results for this AUTO DIFFERENTIAL AM SCRUB NURSE procedure are in the results section. BASIC METABOLIC PANEL Routine 09/17/2018 5:36 Results for this (7) AM SCRUB NURSE procedure are in the results section. CBC W/PLT COUNT & Routine 09/16/2018 5:02 Results for this AUTO DIFFERENTIAL AM SCRUB NURSE procedure are in the results section. CBC W/PLT COUNT & Routine 09/16/2018 5:02 Results for this AUTO DIFFERENTIAL AM SCRUB NURSE procedure are in the results section. BASIC METABOLIC PANEL Routine 09/16/2018 5:02 Results for this (7) AM SCRUB NURSE procedure are in the results section. CBC W/PLT COUNT & Routine 09/15/2018 4:55 Results for this AUTO DIFFERENTIAL AM SCRUB NURSE procedure are in the results section. PHOSPHORUS Routine 09/15/2018 4:55 Results for this AM SCRUB NURSE procedure are in the results section. MAGNESIUM Routine 09/15/2018 4:55 Results for this AM SCRUB NURSE procedure are in the results section. B-TYPE NATRIURETIC Routine 09/15/2018 4:55 Results for this FACTOR (BNP) AM SCRUB NURSE procedure are in the results section. CBC W/PLT COUNT & Routine 09/15/2018 4:55 Results for this AUTO DIFFERENTIAL AM SCRUB NURSE procedure are in the results section. BASIC METABOLIC PANEL Routine 09/15/2018 4:55 Results for this (7) AM SCRUB NURSE procedure are in the results section. BASIC METABOLIC PANEL Routine 09/14/2018 8:37 Results for this (7) PM SCRUB NURSE procedure are in the results section. CBC W/PLT COUNT & Routine 09/14/2018 4:03 Results for this AUTO DIFFERENTIAL PM SCRUB NURSE procedure are in the results section. CBC W/PLT COUNT & Routine 09/14/2018 4:03 Results for this AUTO DIFFERENTIAL PM SCRUB NURSE procedure are in the results section. after 02/27/2018 Results EKG-SCANNED (09/25/2018 2:52 PM SCRUB NURSE) Narrative Performed At RHYTHM STRIP - SCAN (09/25/2018 2:52 PM SCRUB NURSE) Narrative Performed At CBC with platelet count + automated diff (09/20/2018 4:20 AM SCRUB NURSE)Only the most recent of5 resultswithin the time period is included. WBC 12.3 (H) 4.0 - 10.0 K/L [facility] RBC 3.32 (L) 4.00 - 5.00 M/L [facility] Hemoglobin 10.4 (L) 12.0 - 15.5 GM/DL [facility] Hematocrit 33.8 (L) 36.0 - 46.0 % [facility] MCV 101.8 (H) 82.0 - 99.0 fL [facility] MCH 31.3 27.0 - 33.0 pg [facility] MCHC 30.8 (L) 32.0 - 36.0 GM/DL [facility] RDW 14.6 12.0 - 15.0 % [facility] Platelets 395 150 - 430 K/CU MM [facility] MPV 9.7 6.0 - 11.5 fL [facility] nRBC 0 0 - 0 /100 WBC [facility] % Neutros 66 % [facility] % Lymphs 17 % [facility] % Monos 12 % [facility] % Eos 2 % [facility] % Baso 1 % [facility] # Neutros 8.14 (H) 1.80 - 8.00 K/L [facility] # Lymphs 2.04 1.48 - 4.50 K/L [facility] # Monos 1.46 (H) 0.00 - 1.30 K/L [facility] # Eos 0.28 0.00 - 0.50 K/L [facility] # Baso 0.07 0.00 - 0.20 K/L [facility] Immature Granulocytes-Relative 3 (H) 0 - 0 % [facility] Specimen Blood Performing Organization Address City/State/Zipcode Phone Number [facility] [address], [place] [id number] Basic Metabolic Panel (09/20/2018 4:20 AM SCRUB NURSE)Only the most recent of5 resultswithin the time period is included. Sodium 139 135 - 148 meq/L [facility] Potassium 4.5 3.6 - 5.5 meq/L [facility] Chloride 102 98 - 106 meq/L [facility] CO2 28 20 - 29 meq/L [facility] BUN 14 10 - 26 mg/dL [facility] Creatinine 0.63 0.50 - 1.20 mg/dL [facility] Glucose 91 70 - 110 mg/dL [facility] Calcium 9.3 8.5 - 10.5 mg/dL [facility] EGFR 95Comment: ESTIMATED GFR IS NOT mL/min/1.73 sq m [facility] ACCURATE CREATININE CLEARANCE IN PREDICTING GLOMERULAR FILTRATION RATE. ESTIMATED GFR IS NOT APPLICABLE FOR DIALYSIS PATIENTS. Specimen Blood Performing Organization Address City/State/Zipcode Phone Number [facility] [address], [place] [id number] [phone] CTA AAA and Runoff (09/17/2018 2:13 PM SCRUB NURSE) Specimen Narrative Performed At Addendum Begins [employer] [facility] REPORT STATUS:A Addendum: I agree with the previously described non vascular findings. Additionally there is mild skin thickening in the lower anterior abdominal wall and subcutaneous edema which may be secondary to cellulitis. Signed: Dain Rivers MD Report Verified Date/Time:09/17/2018 18:40:47 Reading Location: [place] [address] Angio Body Reading Room Addendum Ends FINAL REPORT CT angiography of the abdominal aorta with runoff, 17 September 2018 INDICATION: This is a 63 year old female with a diagnosis of abdominal aortic aneurysm presents for assessment. Note, a runoff study was requested in with the above indication. This study is performed in an attempt to avoid an invasive procedure. TECHNIQUE: Spiral acquisition before and during intravenous contrast administration using a [employer] multidetector CT scanner. Images were obtained before and during the dynamic passage of intravenous contrast material.Multi-planar 3-D volume-rendering reconstruction was performed using an independent workstation interactively by the interpreting physician as well as the 3-D specialist for optimal visualisation of the abdominal aorta, pelvic arteries, and its proximal branches. Please refer to the contrast sheet scanned in the EPIC system for the amount and route of contrast given. This exam was performed according to our departmental dose-optimisation programme, which includes automated exposure control, adjustment of the mA and/or kV according to patient size and/or use of iterative reconstruction technique. Dose modulation, iterative reconstruction, and/or weight based adjustment of the mA/kV was utilized to reduce the radiation dose to as low as reasonably achievable. FINDINGS: VASCULAR: The distal descending thoracic aorta is unremarkable with mild atherosclerosis identified. In the abdominal aorta, endostent is placed, in the infrarenal abdominal aorta, below the takeoff of the left renal artery, with the iliac limbs place in the left and right common iliac arteries distally. Inside the stent, some circumferential intraluminal thrombus is identified, at the proximal infrarenal level with no luminal obstruction identified. Small type II endoleak is identified, at image 152, at L4 level, from a right-sided lumbar artery. No prior examination is available for comparison and therefore the aortic volume is not provided. There is no evidence of acute aortic pathology, specifically, there is no dissection, intramural hematoma, or contained rupture. Quantitative dimensions of the abdominal aorta are as follows: 2.0 cm at the mesenteric segment; 1.8 cm at the renal segment; 4.2 x 3.7 cm at the mid infrarenal level; and 2.2 cm at the aortic bifurcation. 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 At image 73, it measure approximately 1 cm in diameter. 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 Correlate clinically. The celiac axis well enhanced by contrast, psoas the hepatic and splenic arteries. The SMA is widely patent with minimal calcific atherosclerosis identified. The MIGUEL ANGEL fills retrogradely by surrounding collaterals. Single left renal arteries identified that is widely patent. Single right renal arteries identified that is widely patent. There could be accessory inferior right renal artery identified that is not well filled by contrast as reflected by some cortical scarring is seen in the lower pole of the right kidney. No prior examination is available for comparison. The common iliac, external iliac, and the common femoral arteries, bilaterally, are widely patent. Minimal nonobstructive atherosclerosis is seen mostly in the common iliac arteries. The left and the right internal iliac arteries are patent with calcific atherosclerosis identified. There is either localised atherosclerotic ulceration versus localised dissection flap in the distal right common femoral artery, at image 268. The left SFA and the left profunda system is widely patent. The left popliteal artery is widely patent. In the right, the right SFA is widely patent. The right profunda system is widely patent. The right popliteal artery is widely patent. In the left lower extremity, the left tibioperoneal trunk is widely patent. The left anterior tibial artery is well seen down to level of the ankle, and the dorsalis pedis artery is still identified. The left posterior tibial artery is also patent and the plantar arch is seen distally. The left peroneal artery is a small calibre vessel. In the right, the right tibioperoneal trunk is widely patent. The right anterior tibial artery is well seen down to level of the ankle and the dorsalis pedis artery is identified. The right posterior tibial artery is patent plantar arch is seen distally. The right peroneal artery is a small calibre vessel. NON-VASCULAR: The lung bases are unremarkable. Dependent changes are seen in the lung bases. Some subsegmental atelectatic changes identified. Left basal pleural thickening is noted. In the abdomen, the liver and spleen appears unremarkable. The liver edge is smooth. No abnormal enhancing structure is identified. The adrenal glands are not enlarged. The gallbladder the pancreas appears unremarkable. The kidneys are normal in size and shape. No hydronephrosis or perirenal fluid collections identified. A hyperdense cyst is identified anterior aspect of the left kidney, at image 115, too small to characterize. Continue follow-up can be made in future examination. Cortical scarring is identified in the inferior pole of the kidney, that could be due to prolapse of the accessory inferior right renal artery. Bowel is not well assessed by CT angiography as enteric contrast is not given. No obvious bowel dilation is identified. Bilateral fat-containing inguinal hernia is seen. No free air free fluid seen abdomen and pelvis. The prostate gland is unremarkable. The uterus is not well appreciated. No obvious abnormal adnexal mass is seen and CT is not optimised in assessment of pelvic gynaecological structures. No free air free fluid seen abdomen and pelvis. No significant retroperitoneal adenopathy is identified. In the bony windows, no acute bony pathology is seen. However, surgical material is identified in the lower lumbar vertebral body with significant beam hardening artefact and streak artefact identified, and associated laminectomy is seen. Correlate with operative report. CONCLUSIONS: 1.Endostent is placed in the infrarenal abdominal aorta. The stent appears to be well positioned. Type II endoleak, arising from a right lumbar artery at L4 level is identified.See arrows in PACS for details. There is no evidence of acute aortic pathology, specifically, there is no dissection, intramural hematoma, or contained rupture. Quantitative dimension of the abdominal aorta are as noted. Maximum diameter measure 4.2 x 3.7 cm. No prior examination is available for comparison and therefore aortic volume is not provided. Should patient present for follow-up, in the future, and if there is no peripheral vascular disease symptoms, there is no need to image the lower extremities, to limit radiation exposure. 2.No inflow disease. 3.The SFA and the popliteal arteries, bilaterally, widely patent. 4.Details of the runoff vessels as described above. 5.Other findings as described above, including the status of the mesenteric and renal arteries. 6.An addendum will be dictated regarding the non-vascular findings by the [employer] Operator Radiologist. Signed: Morteza Johnson MD Report Verified Date/Time:09/17/2018 14:46:36 Reading Location: [place] [address] Cardiology MRI Procedure Note Interface, External Ris In - 09/17/2018 6:42 PM SCRUB NURSE Addendum Begins REPORT STATUS:A Addendum: I agree with the previously described non vascular findings. Additionally there is mild skin thickening in the lower anterior abdominal wall and subcutaneous edema which may be secondary to cellulitis. Signed: Dain Rivers MD Report Verified Date/Time: 09/17/2018 18:40:47 Reading Location: [place] [address] Angio Body Reading Room Addendum Ends FINAL REPORT CT angiography of the abdominal aorta with runoff, 17 September 2018 INDICATION: This is a 63 year old female with a diagnosis of abdominal aortic aneurysm presents for assessment. Note, a runoff study was requested in with the above indication. This study is performed in an attempt to avoid an invasive procedure. TECHNIQUE: Spiral acquisition before and during intravenous contrast administration using a [employer] multidetector CT scanner. Images were obtained before and during the dynamic passage of intravenous contrast material. Multi-planar 3-D volume-rendering reconstruction was performed using an independent workstation interactively by the interpreting physician as well as the 3-D specialist for optimal visualisation of the abdominal aorta, pelvic arteries, and its proximal branches. Please refer to the contrast sheet scanned in the EPIC system for the amount and route of contrast given. This exam was performed according to our departmental dose-optimisation programme, which includes automated exposure control, adjustment of the mA and/or kV according to patient size and/or use of iterative reconstruction technique. Dose modulation, iterative reconstruction, and/or weight based adjustment of the mA/kV was utilized to reduce the radiation dose to as low as reasonably achievable. FINDINGS: VASCULAR: The distal descending thoracic aorta is unremarkable with mild atherosclerosis identified. In the abdominal aorta, endostent is placed, in the infrarenal abdominal aorta, below the takeoff of the left renal artery, with the iliac limbs place in the left and right common iliac arteries distally. Inside the stent, some circumferential intraluminal thrombus is identified, at the proximal infrarenal level with no luminal obstruction identified. Small type II endoleak is identified, at image 152, at L4 level, from a right-sided lumbar artery. No prior examination is available for comparison and therefore the aortic volume is not provided. There is no evidence of acute aortic pathology, specifically, there is no dissection, intramural hematoma, or contained rupture. Quantitative dimensions of the abdominal aorta are as follows: 2.0 cm at the mesenteric segment; 1.8 cm at the renal segment; 4.2 x 3.7 cm at the mid infrarenal level; and 2.2 cm at the aortic bifurcation. 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 At image 73, it measure approximately 1 cm in diameter. 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 Correlate clinically. The celiac axis well enhanced by contrast, psoas the hepatic and splenic arteries. The SMA is widely patent with minimal calcific atherosclerosis identified. The MIGUEL ANGEL fills retrogradely by surrounding collaterals. Single left renal arteries identified that is widely patent. Single right renal arteries identified that is widely patent. There could be accessory inferior right renal artery identified that is not well filled by contrast as reflected by some cortical scarring is seen in the lower pole of the right kidney. No prior examination is available for comparison. The common iliac, external iliac, and the common femoral arteries, bilaterally, are widely patent. Minimal nonobstructive atherosclerosis is seen mostly in the common iliac arteries. The left and the right internal iliac arteries are patent with calcific atherosclerosis identified. There is either localised atherosclerotic ulceration versus localised dissection flap in the distal right common femoral artery, at image 268. The left SFA and the left profunda system is widely patent. The left popliteal artery is widely patent. In the right, the right SFA is widely patent. The right profunda system is widely patent. The right popliteal artery is widely patent. In the left lower extremity, the left tibioperoneal trunk is widely patent. The left anterior tibial artery is well seen down to level of the ankle, and the dorsalis pedis artery is still identified. The left posterior tibial artery is also patent and the plantar arch is seen distally. The left peroneal artery is a small calibre vessel. In the right, the right tibioperoneal trunk is widely patent. The right anterior tibial artery is well seen down to level of the ankle and the dorsalis pedis artery is identified. The right posterior tibial artery is patent plantar arch is seen distally. The right peroneal artery is a small calibre vessel. NON-VASCULAR: The lung bases are unremarkable. Dependent changes are seen in the lung bases. Some subsegmental atelectatic changes identified. Left basal pleural thickening is noted. In the abdomen, the liver and spleen appears unremarkable. The liver edge is smooth. No abnormal enhancing structure is identified. The adrenal glands are not enlarged. The gallbladder the pancreas appears unremarkable. The kidneys are normal in size and shape. No hydronephrosis or perirenal fluid collections identified. A hyperdense cyst is identified anterior aspect of the left kidney, at image 115, too small to characterize. Continue follow-up can be made in future examination. Cortical scarring is identified in the inferior pole of the kidney, that could be due to prolapse of the accessory inferior right renal artery. Bowel is not well assessed by CT angiography as enteric contrast is not given. No obvious bowel dilation is identified. Bilateral fat-containing inguinal hernia is seen. No free air free fluid seen abdomen and pelvis. The prostate gland is unremarkable. The uterus is not well appreciated. No obvious abnormal adnexal mass is seen and CT is not optimised in assessment of pelvic gynaecological structures. No free air free fluid seen abdomen and pelvis. No significant retroperitoneal adenopathy is identified. In the bony windows, no acute bony pathology is seen. However, surgical material is identified in the lower lumbar vertebral body with significant beam hardening artefact and streak artefact identified, and associated laminectomy is seen. Correlate with operative report. CONCLUSIONS: 1. Endostent is placed in the infrarenal abdominal aorta. The stent appears to be well positioned. Type II endoleak, arising from a right lumbar artery at L4 level is identified. See arrows in PACS for details. There is no evidence of acute aortic pathology, specifically, there is no dissection, intramural hematoma, or contained rupture. Quantitative dimension of the abdominal aorta are as noted. Maximum diameter measure 4.2 x 3.7 cm. No prior examination is available for comparison and therefore aortic volume is not provided. Should patient present for follow-up, in the future, and if there is no peripheral vascular disease symptoms, there is no need to image the lower extremities, to limit radiation exposure. 2. No inflow disease. 3. The SFA and the popliteal arteries, bilaterally, widely patent. 4. Details of the runoff vessels as described above. 5. Other findings as described above, including the status of the mesenteric and renal arteries. 6. An addendum will be dictated regarding the non-vascular findings by the [employer] Operator Radiologist. Signed: Morteza Johnson MD Report Verified Date/Time: 09/17/2018 14:46:36 Reading Location: [place] [address] Cardiology MRI Performing Organization Address City/[facility] Cent[facility] Phone Number GE [facility]IS Phosphorus (09/17/2018 5:36 AM SCRUB NURSE)Only the most recent of2 resultswithin the time period is included. Phosphorus 3.8 2.5 - 4.5 mg/dL [facility] Specimen Blood Performing Organization Address City/[facility] Centercode Phone Number [employer] [facility] [address] [place], [place] [phone] Magnesium (09/17/2018 5:36 AM SCRUB NURSE)Only the most recent of2 resultswithin the time period is included. Magnesium 1.9 1.5 - 3.0 mg/dL [facility] Specimen Blood Performing Organization Address [facility] Center[facility] Phone Number [facility] [address], [place] [phone] B-type Natriuretic Factor (BNP) (09/15/2018 4:55 AM SCRUB NURSE) BNP 418 (H) 0 - 100 pg/mL [facility] Specimen Blood Performing Organization Address City/State/Zipcode Phone Number [facility] [address] [facility] [place], [place] [address] [phone] after 02/27/2018 Insurance Payer Benefit Plan / Subscriber ID Type Phone Address Group BLUE CROSS/BLUE BCBS PPO POS EPO xxxxxxxxxxxx PPO [phone] [address] [place] [address] Advance Directives For more information, please contact:[facility] [place], [place] [phone] Code Status Date Activated Date Inactivated Comments Full Code 09/14/2018 2:51 PM This code status was determined by: Patient
--- OUTSIDE RECORDS SUMMARY | 2019-02-28 18:09 | XMS REPORT | Continuity of Care Document ---
[...] Laboratory Prothrombin 10.6 9.5 - 12.5 08/15 [facility] Studies Time SECONDS [facility] [place] [facility] INR 0.90 08/15 [facility] Studies International /2016 [facility] Normalized [place] Ratio Laboratory Activated 22.8 24.3 - 08/15 [facility] Studies Partial SECONDS 36.9 [facility] Thromboplast [place] Time Laboratory Platelet 325 K/uL 152 - 406 08/15 [facility] Studies Count [facility] [place] [facility] Mean Platelet 7.6 fL 7.6 - 11.3 08/15 [facility] Studies Volume [facility] [place] [facility] Urine pH 5.5 05/22 [facility] Studies [facility] [place] [facility] Urine Total Urine Total 05/22 [facility] Studies Protein Protein [facility] [place] [facility] Urine null 05/22 [facility] Studies Specific [facility] Longs [place] [facility] Urine Nitrite Urine 05/22 [facility] Studies Nitrite [facility] [place] [facility] Urine Urine 05/22 [facility] Studies Leukocyte Leukocyte /2016 [facility] Esterase Esterase [place] [facility] Urine Ketones Urine 05/22 [facility] Studies Ketones [facility] [place] [facility] Urine Glucose Urine 05/22 [facility] Studies Glucose [facility] [place] [facility] Urine Blood Urine Blood 05/22 [facility] Studies [facility] [place] [facility] Urine WBC null 05/22 [facility] Studies [facility] [place] [facility] Urine null 05/22 [facility] Studies Squamous [facility] Epithelial [place] Cells Laboratory Urine RBC null 05/22 [facility] Studies [facility] [place] [facility] Urine Hyaline null 05/22 [facility] Studies Casts [facility] [place] [facility] Urine Culture Urine 05/22 [facility] Studies Reflexed Culture /2016 [facility] Reflexed [place] [facility] Urine Coarse Urine 05/22 [facility] Studies Granular Coarse [facility] Casts Granular [place] Casts Laboratory Urine Calcium Urine 05/22 [facility] Studies Oxalate Calcium [facility] Crystals Oxalate [place] Crystals Laboratory Urine null 05/22 [facility] Studies Bacteria [facility] [place] [facility] Segmented 66 % 40 - 80 05/[address] [facility] Studies Neutrophils /2016 [facility] [place] [facility] Monocytes 9 % 0 - 10 05/[address] [facility] [address] Studies /2016 [facility] [place] [facility] Metamyelocyte 2 % 0 - 0 05/22 [facility]. Studies s /2016 [facility] [place] [facility] Lymphocytes 17 % 15 - 42 05/22 [facility]. Studies /2016 [facility] [place] [facility] Eosinophils 1 % 0 - 3 05/22 [facility]. Studies /2016 [facility] [place] [facility] Clumped Clumped 05/22 [facility] Studies Platelets Platelets /2016 [facility] [place] [facility] Blood Blood 05/22 [facility] Studies Morphology Morphology /2016 [facility] Comment Comment [place] [facility] Band 4 % 0 - 1 05/22 [facility]. Studies Neutrophils /2016 [facility] [place] [facility] Atypical 1 05/22 [facility] Studies Lymphocytes /2016 [facility] [place] [facility] White Blood 11.7 K/uL 4.3 - 10.9 05/22 [facility] Studies Count /2016 [facility] [place] [facility] Red Cell 13.0 % 12.1 - 05/22 [facility] Studies Distribution 15.2 [facility] Width [place] [facility] Red Blood 4.92 M/uL 3.86 - 05/22 [facility] Studies Count 4.86 /2016 [facility] [place] [facility] Neutrophils % 71.6 % 41.7 - 05/22 [facility]. Studies 73.7 /2016 [facility] [place] [facility] Monocytes % 10.5 % 3.3 - 12.3 05/22 [facility]. Studies /2016 [facility] [place] [facility] Mean 96.0 fL 80 - 100 05/22 [facility] Studies Corpuscular /2016 [facility] Volume [place] [facility] Mean 34.0 g/dL 32.0 - 05/22 [facility] Studies Corpuscular 36.0 /2016 [facility] Hemoglobin [place] Concent Laboratory Mean 32.7 pg 27.0 - 05/22 [facility] Studies Corpuscular 35.0 /2016 [facility] Hemoglobin [place] [facility] Lymphocytes % 16.6 % 15.3 - 05/22 [facility]. Studies 44.8 /2016 [facility] [place] [facility] Hemoglobin 16.1 g/dL 12.0 - 05/22 [facility]. Studies 15.0 /2016 [facility] [place] [facility] Hematocrit 47.3 % 36.0 - 05/[address] [facility] Studies 45.0 /2017 [facility] [place] [facility] Eosinophils % 0.7 % 0 - 4.4 05/[address] [facility] Studies /2016 [facility] [place] [facility] Basophils % 0.6 % 0 - 1.3 05/[address] [facility] Studies /2016 [facility] [place] [facility] Absolute 8.4 K/uL 1.8 - 8.0 05/[address] [facility] Studies Neutrophil /2016 [facility] [place] [facility] Absolute 1.2 K/uL 0.1 - 1.3 05/[address] [facility] Studies Monocytes /2016 [facility] (CBC) [place] [facility] Absolute 1.9 K/uL 0.7 - 4.9 05/[address] [facility] Studies Lymphocytes [facility] (CBC) [place] [facility] Absolute 0.1 K/uL 0 - 0.5 05/[address] [facility] Studies Eosinophils [facility] (CBC) [place] [facility] Absolute 0.1 K/uL 0 - 0.5 05/22 [facility]. Studies Basophils [facility] (CBC) [place] [facility] Rapid null 05/22 [facility]. Studies Troponin I /2016 [facility] [place] [facility] Sodium Level 137 mEq/L 135 - 145 05/[address] [facility] [address] Studies /2016 [facility] [place] [facility] Potassium 3.0 mEq/L 3.6 - 5.0 05/[address] [facility] Studies Level /2016 [facility] [place] [facility] Chloride 95 mEq/L 101 - 111 05/[address] [facility] Studies Level /2016 [facility] [place] [facility] Carbon 30 mEq/L 21 - 31 05/[address] [facility] [address] Studies Dioxide Level /2016 [facility] [place] [facility] Total 0.4 mg/dL 0.3 - 1.2 05/22 [facility]. Studies Bilirubin /2016 [facility] [place] [facility] Serum Total 8.3 g/dL 6.0 - 8.3 05/22 [facility]. Studies Protein /2016 [facility] [place] [facility] Globulin 4.0 g/dL 2.3 - 3.5 05/22 [facility]. Studies /2016 [facility] [place] [facility] Estimat 64 mL/min 90 05/[address] [facility] Studies Glomerular /2016 [facility] Filtration [place] Rate Laboratory Direct 0.1 mg/dL 0 - 0.2 05/22 [facility] Studies Bilirubin /2016 [facility] [place] [facility] Creatinine 0.89 mg/dL 0.44 - [address] [facility] Studies 1.00 /2016 [facility] [place] [facility] Blood Urea 21 mg/dL 6 - 20 05/22 [facility]. Studies Nitrogen /2016 [facility] [place] [facility] Aspartate 23 IU/L 10 - 42 05/22 [facility] Studies Amino Transf /2016 [facility] - (AST/SGOT) [place] [facility] Alkaline 80 IU/L 42 - 121 05/22 [facility]. Studies Phosphatase /2016 [facility] [place] [facility] Albumin/Globu 1.1 1.1 - 1.8 05/22 [facility]. Studies josé maneul Ratio /2016 [facility] [place] [facility] Albumin 4.3 g/dL 3.2 - 5.5 05/22 [facility]. Studies [facility] [place] [facility] Alanine 26 IU/L 10 - 60 05/22 [facility] Studies Aminotransfer [facility] [place] (ALT/SGPT) Laboratory Lipase 32 U/L 22 - 51 05/22 [facility]. Studies [facility] [place] [facility] Glucose Level 95 mg/dL 65 - 120 05/22 [facility]. Studies [facility] [place] [facility] Calcium Level 9.9 mg/dL 8.5 - 10.5 05/22 [facility]. Studies [facility] [place] Vital Signs Vital Sign Value Date Comments Source Temperature Oral (F) 97 F 08/15/2017 [facility] Freddy Liu Heart Rate 51 08/15/2017 [facility] Freddy Liu Respitory Rate 18 [facility]2017 [facility] Systolic (mm Hg) 116 08/15/2017 [facility] Freddy Gilliamt Diastolic (mm Hg) 64 08/15/2017 [facility] Freddy Liu Height 5 08/15/2017 [facility] Freddy Liu Weight 138 08/15/2017 [facility] Freddy Liu Encounters Location Location Encounter Encounter Reason Attending ADM DC Status Source Details Type Number For Provider Date Date Visit [facility] Departed [id number] 05/22 05/22 [facility] [place] [facility] [id number] 08/15 08/15 [facility] [place] [facility] [place] [facility] [place]readmit [id number] [facility] Procedures Procedure Code Date Perfomer Comments Source Spine Lumbar Wo [id number] [facility] Con 7 - [place] C Spine Wo Con [id number] [facility] - [place] Myelography [id number] [facility] Lumbar 7 - [place] Myelography C [id number] [facility] Spine 7 - [place] Abdomen & Pelvis [id number] [facility] Short W Contrast 7 - [place] Chest Single [id number] [facility] View 7 - [place]
--- OUTSIDE RECORDS SUMMARY | 2019-02-28 18:15 | XMS REPORT ---
:1955 [facility] Address [address] [place] [address] Care Team Providers Name Role Phone KARL RUSSELL Unavailable Unavailable Payers Payer Name Policy Type Policy Number Effective Date Expiration Date Problems This patient has no known problems. Allergies, Adverse Reactions, Alerts Allergy Allergy Status Severity Reaction(s) Onset Inactive Treating Comments Name Type Date Date Clinician No Known DA Active U 2018-12 Allergies - 00:00:0 0 No Known DA Active U 2018-11 Allergies - 00:00:0 0 No Known DA Active U 2015-12 Allergies -07 00:00:0 0 Medications This patient has no known medications. Results Test Description Test Time Test Comments Text Results Atomic Results Result Comments CBC W/O DIFF 2018-12-19 11:16:00 Test Item Value Reference Range Comments WHITE BLOOD CELL (test code=WBC) 8.2 K/MM3 3.8-9.8 RED BLOOD CELL (test code=RBC) 3.79 M/MM3 3.58-4.97 HEMOGLOBIN (test code=HGB) 10.6 G/DL 11.2-14.9 HEMATOCRIT (test code=HCT) 34.9 % 33.2-43.5 MEAN CELL VOLUME (test code=MCV) 92 fL 80.7-99.1 MEAN CELL HGB (test code=MCH) 28.0 pg 27.0-34.1 MEAN CELL HGB CONCETRATION (test code=MCHC) 30.4 % 32.2-35.7 RED CELL DISTRIBUTION WIDTH (test code=RDW) 14.7 % 12.1-15.2 PLATELET COUNT (test code=PLT) 336 K/MM3 129-368 IMMATURE GRANULOCYTE % (test code=IG%) 1.0 % 0.0-2.0 NEUTROPHIL # (test code=NT#) 4.14 K/mm3 2.0-7.6 IMMATURE GRANULOCYTE # (test code=IG#) 0.08 x10 3/uL 0-0.03 LYMPHOCYTE # (test code=LY#) 1.62 K/mm3 1.0-3.8 MONOCYTE # (test code=MO#) 0.80 K/mm3 0.1-0.8 EOSINOPHIL # (test code=EO#) 1.44 K/mm3 0.0-0.2 BASOPHIL # (test code=BA#) 0.09 K/mm3 0.0-0.2 NUCLEATED RBC # (test code=NRBC#) 0.00 K/mm3 0.0-0.1 WBC [id number] 11:16:00 Test Item Value Reference Range Comments RBC MORPHOLOGY REQUIRED (test code=RBCM) NORMAL TOTAL CELLS COUNTED (test code=TCC) 130 #CELLS SEGMENTED NEUTROPHILS (test code=SEG) 58.5 % 36.2-73.8 BAND NEUTROPHIL (test code=BAND) 8.5 % 0-10 LYMPHOCYTE (test code=LYMPH) 5.9 % 12.9-45.1 ATYPICAL LYMPH (test code=ALYMPH) 9.3 % 0-0 MONOCYTE (test code=MON) 3.4 % 0-11 EOSINOPHIL (test code=EOS) 11.9 % 1-7 METAMYELOCYTE (test code=META) 1.7 % 0-0 PLASMA CELL (test code=GUS) 0.8 % 0-0 POIKILOCYTOSIS (test code=POIK) FEW NONE PLATELET ESTIMATE (test code=PLTEST) ADEQUATE ADEQUATE PLATELET MORPHOLOGY (test code=PLTMORPH) NORMAL NORMAL - XR CHEST [id number] 08:27:00 Patient Name: MOISÉS CANNON Unit No: [id number] EXAMS: CPT CODE: [id number] XR CHEST 1V 20983 EXAMINATION: - XR CHEST 1V. LOCATION: B2. HISTORY: S/P CHEST TUBE REMOVAL. COMPARISON: Radiograph dated 12/18. TECHNIQUE: Single AP view of the chest was obtained. FINDINGS: The heart is normal in size. Mild left basilar opacities are present, unchanged. There is blunting of the right costophrenic angle. Diffuse subcutaneous emphysema is seen in the soft tissues. No new osseous abnormality is identified. IMPRESSION: No interval change in the appearance of the chest. at 0827 Reported and signed by: Pushpa Wagoner MD CC: Chito Hanson MD Technologist: Maryjane Giles, RT(R) Transcrpt Date/Tm/Trnsp: 12/19/2018 (826) [email or web address] Orig Print D/T: S: 12/19/2018 (829) [facility] NAME: MOISÉS CANNON [address] PHYS: [place] [address] : 1955 AGE: 63 SEX: F LOC: Z.SI04 A PHONE #: [phone] EXAM DATE: 12/19/2018 STATUS: ADM IN FAX #: [phone] RADIOLOGY NO: PAGE 1 Signed ReportBASIC METABOLIC [id number] 06:07:00 Test Item Value Reference Range Comments SODIUM (test code=NA) 138 MMOL/L 137-145 POTASSIUM (test code=K) 4.7 MMOL/L 3.5-5.1 CHLORIDE (test code=CL) 101 MMOL/L 98-107 CARBON DIOXIDE (test code=CO2) 31 MMOL/L 22-30 GLUCOSE (test code=GLU) 97 MG/DL 74-106 BLOOD UREA NITROGEN (test 10 MG/DL 7-17 code=BUN) GLOMERULAR FILTRATION RATE > 60 Reporting units: ml/min/1.73 (test code=GFR) m2 (Modified MDRD Formula)Reference Range: > or=60 ml/min/1.73 m2 CREATININE (test code=CREAT) 0.60 MG/DL 0.52-1.04 CALCIUM (test code=CA) 9.2 MG/DL 8.4-10.2 [id number] 06:07:00 Test Item Value Reference Range Comments MAGNESIUM (test code=MAG) 2.0 MG/DL 1.6-2.3 CBC W/O [id number] 05:55:00 Test Item Value Reference Range Comments WHITE BLOOD CELL (test code=WBC) 8.2 K/MM3 3.8-9.8 RED BLOOD CELL (test code=RBC) 3.79 M/MM3 3.58-4.97 HEMOGLOBIN (test code=HGB) 10.6 G/DL 11.2-14.9 HEMATOCRIT (test code=HCT) 34.9 % 33.2-43.5 MEAN CELL VOLUME (test code=MCV) 92 fL 80.7-99.1 MEAN CELL HGB (test code=MCH) 28.0 pg 27.0-34.1 MEAN CELL HGB CONCETRATION (test code=MCHC) 30.4 % 32.2-35.7 RED CELL DISTRIBUTION WIDTH (test code=RDW) 14.7 % 12.1-15.2 PLATELET COUNT (test code=PLT) 336 K/MM3 129-368 IMMATURE GRANULOCYTE % (test code=IG%) 1.0 % 0.0-2.0 NEUTROPHIL # (test code=NT#) 4.14 K/mm3 2.0-7.6 IMMATURE GRANULOCYTE # (test code=IG#) 0.08 x10 3/uL 0-0.03 LYMPHOCYTE # (test code=LY#) 1.62 K/mm3 1.0-3.8 MONOCYTE # (test code=MO#) 0.80 K/mm3 0.1-0.8 EOSINOPHIL # (test code=EO#) 1.44 K/mm3 0.0-0.2 BASOPHIL # (test code=BA#) 0.09 K/mm3 0.0-0.2 NUCLEATED RBC # (test code=NRBC#) 0.00 K/mm3 0.0-0.1 WBC [id number] 05:55:00 Test Item Value Reference Range Comments RBC MORPHOLOGY REQUIRED (test code=RBCM) TOTAL CELLS COUNTED (test code=TCC) #CELLS SEGMENTED NEUTROPHILS (test code=SEG) % 36.2-73.8 LYMPHOCYTE (test code=LYMPH) % 12.9-45.1 MONOCYTE (test code=MON) % 0-11 PLATELET ESTIMATE (test code=PLTEST) ADEQUATE PLATELET MORPHOLOGY (test code=PLTMORPH) NORMAL CBC W/AUTO [id number] 05:55:00 Test Item Value Reference Range Comments WHITE BLOOD CELL (test code=WBC) 8.2 K/MM3 3.8-9.8 RED BLOOD CELL (test code=RBC) 3.79 M/MM3 3.58-4.97 HEMOGLOBIN (test code=HGB) 10.6 G/DL 11.2-14.9 HEMATOCRIT (test code=HCT) 34.9 % 33.2-43.5 MEAN CELL VOLUME (test code=MCV) 92 fL 80.7-99.1 MEAN CELL HGB (test code=MCH) 28.0 pg 27.0-34.1 MEAN CELL HGB CONCETRATION (test code=MCHC) 30.4 % 32.2-35.7 RED CELL DISTRIBUTION WIDTH (test code=RDW) 14.7 % 12.1-15.2 PLATELET COUNT (test code=PLT) 336 K/MM3 129-368 MEAN PLATELET VOLUME (test code=MPV) 9.4 fl 7.4-10.4 NEUTROPHIL % (test code=NT%) 50.7 % 43-75 IMMATURE GRANULOCYTE % (test code=IG%) 1.0 % 0.0-2.0 LYMPHOCYTE % (test code=LY%) 19.8 % 14-44 MONOCYTE % (test code=MO%) 9.8 % 4-13 EOSINOPHIL % (test code=EO%) 17.6 % 0-6 BASOPHIL % (test code=BA%) 1.1 % 0-2 NUCLEATED RBC % (test code=NRBC%) 0.0 % 0-1.0 NEUTROPHIL # (test code=NT#) 4.14 K/mm3 2.0-7.6 IMMATURE GRANULOCYTE # (test code=IG#) 0.08 x10 3/uL 0-0.03 LYMPHOCYTE # (test code=LY#) 1.62 K/mm3 1.0-3.8 MONOCYTE # (test code=MO#) 0.80 K/mm3 0.1-0.8 EOSINOPHIL # (test code=EO#) 1.44 K/mm3 0.0-0.2 BASOPHIL # (test code=BA#) 0.09 K/mm3 0.0-0.2 NUCLEATED RBC # (test code=NRBC#) 0.00 K/mm3 0.0-0.1 WBC [id number] 05:55:00 Test Item Value Reference Range Comments RBC MORPHOLOGY REQUIRED (test code=RBCM) TOTAL CELLS COUNTED (test code=TCC) #CELLS SEGMENTED NEUTROPHILS (test code=SEG) % 36.2-73.8 LYMPHOCYTE (test code=LYMPH) % 12.9-45.1 MONOCYTE (test code=MON) % 0-11 PLATELET ESTIMATE (test code=PLTEST) ADEQUATE PLATELET MORPHOLOGY (test code=PLTMORPH) NORMAL - XR CHEST [id number] 13:33:00 Patient Name: MOISÉS CANNON Unit No: [id number] EXAMS: CPT CODE: [id number] XR CHEST 1V 02111 Chest Radiograph History: RIGHT CHEST TUBE REMOVAL Comparison: December 18, 2018, earlier the same day Location: R16 A single frontal view of the chest is submitted. The heart appears unchanged in size. Pulmonary vasculature is unremarkable. The right-sided chest tube has been removed. No pneumothorax is identified. There is a minimal patchy opacity in the left lung base. The bones appear unchanged. Severe subcutaneous emphysema is again identified. The vascular catheterappears unchanged. IMPRESSION: Minimal patchy opacity left lung base. This could be due to atelectasis or pneumonia. Severe subcutaneous emphysema. at 1333 Reported and signed by: Beny Aguero MD CC: Chito Hanson MD; Oumou Stanley NP Technologist: Jo-Ann Hall (RT) Transcrpt Date/Tm/Trnsp: 12/18/2018 (6195) [email or web address] Orig Print D/T: S: 12/18/2018 (3089) [facility] NAME: MOISÉS CANNON[address] PHYS: [place] [address] : 09/1954 AGE: 63 SEX: F LOC: Z.SI04 A PHONE #: [phone] EXAM DATE: STATUS: ADM IN FAX #: [phone] RADIOLOGY NO: PAGE 1 Signed ReportCBC W/O [id number] 09:20: 00 Test Item Value Reference Range Comments WHITE BLOOD CELL (test code=WBC) 8.1 K/MM3 3.8-9.8 RED BLOOD CELL (test code=RBC) 3.57 M/MM3 3.58-4.97 HEMOGLOBIN (test code=HGB) 10.1 G/DL 11.2-14.9 HEMATOCRIT (test code=HCT) 32.5 % 33.2-43.5 MEAN CELL VOLUME (test code=MCV) 91 fL 80.7-99.1 MEAN CELL HGB (test code=MCH) 28.3 pg 27.0-34.1 MEAN CELL HGB CONCETRATION (test code=MCHC) 31.1 % 32.2-35.7 RED CELL DISTRIBUTION WIDTH (test code=RDW) 14.8 % 12.1-15.2 PLATELET COUNT (test code=PLT) 320 K/MM3 129-368 IMMATURE GRANULOCYTE % (test code=IG%) 1.0 % 0.0-2.0 NEUTROPHIL # (test code=NT#) 4.43 K/mm3 2.0-7.6 IMMATURE GRANULOCYTE # (test code=IG#) 0.08 x10 3/uL 0-0.03 LYMPHOCYTE # (test code=LY#) 1.50 K/mm3 1.0-3.8 MONOCYTE # (test code=MO#) 0.85 K/mm3 0.1-0.8 EOSINOPHIL # (test code=EO#) 1.13 K/mm3 0.0-0.2 BASOPHIL # (test code=BA#) 0.06 K/mm3 0.0-0.2 NUCLEATED RBC # (test code=NRBC#) 0.00 K/mm3 0.0-0.1 WBC [id number] 09:20:00 Test Item Value Reference Range Comments RBC MORPHOLOGY REQUIRED (test code=RBCM) NORMAL TOTAL CELLS COUNTED (test code=TCC) 130 #CELLS SEGMENTED NEUTROPHILS (test code=SEG) 62.2 % 36.2-73.8 BAND NEUTROPHIL (test code=BAND) 0.0 % 0-10 LYMPHOCYTE (test code=LYMPH) 11.7 % 12.9-45.1 ATYPICAL LYMPH (test code=ALYMPH) 0.0 % 0-0 MONOCYTE (test code=MON) 4.5 % 0-11 EOSINOPHIL (test code=EOS) 21.6 % 1-7 NUCLEATED RED BLOOD CELL (test code=NRBC) 3 0-0 PLATELET ESTIMATE (test code=PLTEST) ADEQUATE ADEQUATE PLATELET MORPHOLOGY (test code=PLTMORPH) NORMAL NORMAL - XR CHEST [id number] 08:19:00 Patient Name: MOISÉS CANNON Unit No: [id number] EXAMS: CPT CODE: [id number] XR CHEST 1V 42153 EXAMINATION: - XR CHEST 1V. LOCATION: B2. HISTORY: F/U. COMPARISON: Radiograph dated 12/17/2018. TECHNIQUE: Single AP viewof the chest was obtained. FINDINGS: Right chest tube and right IJ line are unchanged in position. The heart is normal in size. Small right pleural effusion is present. Mild left basilar opacities are unchanged. Extensive subcutaneous emphysema is seenin the soft tissues. No new osseous abnormality is identified. IMPRESSION: Small right pleural effusion. Mild left basilar opacities, likely representing atelectasis. at 0819 Reported and signed by: Pushpa Wagoner MD CC: Chito Hanson MD Technologist: Maryjane Giles RT(R) Transcrpt Date/Tm/Trnsp: 12/18/2018 (818) [email or web address] Orig Print D/T: S: 12/18/2018 (08) [facility] NAME: MOISÉS CANNON [address] PHYS: [place] [address] : 1955 AGE: 63 SEX: F LOC: Z.SI04 A PHONE #: [phone] EXAM DATE: STATUS: ADM IN FAX #: [phone] RADIOLOGY NO: PAGE 1 Signed ReportBASIC METABOLIC [id number] 05:44:00 Test Item Value Reference Range Comments SODIUM (test code=NA) 135 MMOL/L 137-145 POTASSIUM (test code=K) 4.0 MMOL/L 3.5-5.1 CHLORIDE (test code=CL) 103 MMOL/L 98-107 CARBON DIOXIDE (test code=CO2) 29 MMOL/L 22-30 GLUCOSE (test code=GLU) 106 MG/DL 74-106 BLOOD UREA NITROGEN (test 10 MG/DL 7-17 code=BUN) GLOMERULAR FILTRATION RATE > 60 Reporting units: ml/min/1.73 (test code=GFR) m2 (Modified MDRD Formula)Reference Range: > or=60 ml/min/1.73 m2 CREATININE (test code=CREAT) 0.50 MG/DL 0.52-1.04 CALCIUM (test code=CA) 8.8 MG/DL 8.4-10.2 [id number] 05:44:00 Test Item Value Reference Range Comments MAGNESIUM (test code=MAG) 1.9 MG/DL 1.6-2.3 CBC W/O [id number] 05:30:00 Test Item Value Reference Range Comments WHITE BLOOD CELL (test code=WBC) 8.1 K/MM3 3.8-9.8 RED BLOOD CELL (test code=RBC) 3.57 M/MM3 3.58-4.97 HEMOGLOBIN (test code=HGB) 10.1 G/DL 11.2-14.9 HEMATOCRIT (test code=HCT) 32.5 % 33.2-43.5 MEAN CELL VOLUME (test code=MCV) 91 fL 80.7-99.1 MEAN CELL HGB (test code=MCH) 28.3 pg 27.0-34.1 MEAN CELL HGB CONCETRATION (test code=MCHC) 31.1 % 32.2-35.7 RED CELL DISTRIBUTION WIDTH (test code=RDW) 14.8 % 12.1-15.2 PLATELET COUNT (test code=PLT) 320 K/MM3 129-368 IMMATURE GRANULOCYTE % (test code=IG%) 1.0 % 0.0-2.0 NEUTROPHIL # (test code=NT#) 4.43 K/mm3 2.0-7.6 IMMATURE GRANULOCYTE # (test code=IG#) 0.08 x10 3/uL 0-0.03 LYMPHOCYTE # (test code=LY#) 1.50 K/mm3 1.0-3.8 MONOCYTE # (test code=MO#) 0.85 K/mm3 0.1-0.8 EOSINOPHIL # (test code=EO#) 1.13 K/mm3 0.0-0.2 BASOPHIL # (test code=BA#) 0.06 K/mm3 0.0-0.2 NUCLEATED RBC # (test code=NRBC#) 0.00 K/mm3 0.0-0.1 WBC [id number] 05:30:00 Test Item Value Reference Range Comments RBC MORPHOLOGY REQUIRED (test code=RBCM) TOTAL CELLS COUNTED (test code=TCC) #CELLS SEGMENTED NEUTROPHILS (test code=SEG) % 36.2-73.8 LYMPHOCYTE (test code=LYMPH) % 12.9-45.1 MONOCYTE (test code=MON) % 0-11 PLATELET ESTIMATE (test code=PLTEST) ADEQUATE PLATELET MORPHOLOGY (test code=PLTMORPH) NORMAL CBC W/AUTO [id number] 05:30:00 Test Item Value Reference Range Comments WHITE BLOOD CELL (test code=WBC) 8.1 K/MM3 3.8-9.8 RED BLOOD CELL (test code=RBC) 3.57 M/MM3 3.58-4.97 HEMOGLOBIN (test code=HGB) 10.1 G/DL 11.2-14.9 HEMATOCRIT (test code=HCT) 32.5 % 33.2-43.5 MEAN CELL VOLUME (test code=MCV) 91 fL 80.7-99.1 MEAN CELL HGB (test code=MCH) 28.3 pg 27.0-34.1 MEAN CELL HGB CONCETRATION (test code=MCHC) 31.1 % 32.2-35.7 RED CELL DISTRIBUTION WIDTH (test code=RDW) 14.8 % 12.1-15.2 PLATELET COUNT (test code=PLT) 320 K/MM3 129-368 MEAN PLATELET VOLUME (test code=MPV) 9.2 fl 7.4-10.4 NEUTROPHIL % (test code=NT%) 55.1 % 43-75 IMMATURE GRANULOCYTE % (test code=IG%) 1.0 % 0.0-2.0 LYMPHOCYTE % (test code=LY%) 18.6 % 14-44 MONOCYTE % (test code=MO%) 10.6 % 4-13 EOSINOPHIL % (test code=EO%) 14.0 % 0-6 BASOPHIL % (test code=BA%) 0.7 % 0-2 NUCLEATED RBC % (test code=NRBC%) 0.0 % 0-1.0 NEUTROPHIL # (test code=NT#) 4.43 K/mm3 2.0-7.6 IMMATURE GRANULOCYTE # (test code=IG#) 0.08 x10 3/uL 0-0.03 LYMPHOCYTE # (test code=LY#) 1.50 K/mm3 1.0-3.8 MONOCYTE # (test code=MO#) 0.85 K/mm3 0.1-0.8 EOSINOPHIL # (test code=EO#) 1.13 K/mm3 0.0-0.2 BASOPHIL # (test code=BA#) 0.06 K/mm3 0.0-0.2 NUCLEATED RBC # (test code=NRBC#) 0.00 K/mm3 0.0-0.1 WBC [id number] 05:30:00 Test Item Value Reference Range Comments RBC MORPHOLOGY REQUIRED (test code=RBCM) TOTAL CELLS COUNTED (test code=TCC) #CELLS SEGMENTED NEUTROPHILS (test code=SEG) % 36.2-73.8 LYMPHOCYTE (test code=LYMPH) % 12.9-45.1 MONOCYTE (test code=MON) % 0-11 PLATELET ESTIMATE (test code=PLTEST) ADEQUATE PLATELET MORPHOLOGY (test code=PLTMORPH) NORMAL CBC W/O [id number] 09:18:00 Test Item Value Reference Range Comments WHITE BLOOD CELL (test code=WBC) 7.7 K/MM3 3.8-9.8 RED BLOOD CELL (test code=RBC) 3.51 M/MM3 3.58-4.97 HEMOGLOBIN (test code=HGB) 9.9 G/DL 11.2-14.9 HEMATOCRIT (test code=HCT) 32.0 % 33.2-43.5 MEAN CELL VOLUME (test code=MCV) 91 fL 80.7-99.1 MEAN CELL HGB (test code=MCH) 28.2 pg 27.0-34.1 MEAN CELL HGB CONCETRATION (test code=MCHC) 30.9 % 32.2-35.7 RED CELL DISTRIBUTION WIDTH (test code=RDW) 15.0 % 12.1-15.2 PLATELET COUNT (test code=PLT) 316 K/MM3 129-368 IMMATURE GRANULOCYTE % (test code=IG%) 1.3 % 0.0-2.0 NEUTROPHIL # (test code=NT#) 4.52 K/mm3 2.0-7.6 IMMATURE GRANULOCYTE # (test code=IG#) 0.10 x10 3/uL 0-0.03 LYMPHOCYTE # (test code=LY#) 1.21 K/mm3 1.0-3.8 MONOCYTE # (test code=MO#) 0.99 K/mm3 0.1-0.8 EOSINOPHIL # (test code=EO#) 0.86 K/mm3 0.0-0.2 BASOPHIL # (test code=BA#) 0.05 K/mm3 0.0-0.2 NUCLEATED RBC # (test code=NRBC#) 0.00 K/mm3 0.0-0.1 WBC [id number] 09:18:00 Test Item Value Reference Range Comments RBC MORPHOLOGY REQUIRED (test code=RBCM) NORMAL TOTAL CELLS COUNTED (test code=TCC) 130 #CELLS SEGMENTED NEUTROPHILS (test code=SEG) 72.6 % 36.2-73.8 BAND NEUTROPHIL (test code=BAND) 0.0 % 0-10 LYMPHOCYTE (test code=LYMPH) 8.8 % 12.9-45.1 ATYPICAL LYMPH (test code=ALYMPH) 1.8 % 0-0 MONOCYTE (test code=MON) 8.0 % 0-11 EOSINOPHIL (test code=EOS) 7.9 % 1-7 BASOPHIL (test code=BASO) 0.9 % 0-2 NUCLEATED RED BLOOD CELL (test code=NRBC) 2 0-0 PLATELET ESTIMATE (test code=PLTEST) ADEQUATE ADEQUATE PLATELET MORPHOLOGY (test code=PLTMORPH) NORMAL NORMAL - XR CHEST [id number] 08:48:00 Patient Name: MOISÉS CANNON Unit No: [id number] EXAMS: CPT CODE: [id number] XR CHEST 1V 36457 REASON FOR EXAM: Chest tube, lung lesion, subcutaneous emphysema.. COMPARISON: December 16, 2018. Chest, portable single frontal view. The right-sided chest tube and jugular line are stable in position. Similar appearance to subcutaneous emphysema, limiting detail of the chest The lungs are well-inflated with moredensity in the left lung than right. Small right effusion versus postop changes. No focal abnormality. This could represent a diffuse pneumonia or other interstitial process. Heart size is normal. No left effusion or pneumothorax can be seen. Osseous structures appear to be intact. IMPRESSION: Stable chest with chest tube in place and no detectable pneumothorax. There is more density in the left lung than seen on film several days ago possibly developing asymmetric pulmonary edema or pneumonia. Location: U19 * * Electronically Signed by Chris Ortiz MD on 2018 at 0848 Reported and signed by: Chris Ortiz MD CC: Chito Hanson MD Technologist: Maryjane Giles, RT( R) Transcrpt Date/Tm/Trnsp: 12/17/2018 (0848) [email or web address].RCM Orig Print D/T: S: 12/17/2018 (9251) [facility] NAME: MOISÉS CANNON [address] PHYS: [place] [address] : 1955 AGE: 63 SEX: F LOC: Z.SI04 A PHONE #: [phone] EXAM DATE: 12/17/2018 STATUS: ADM IN FAX #: [phone] RADIOLOGY NO: PAGE 1 Signed ReportBASIC METABOLIC [id number] 05:48:00 Test Item Value Reference Range Comments SODIUM (test code=NA) 136 MMOL/L 137-145 POTASSIUM (test code=K) 3.8 MMOL/L 3.5-5.1 CHLORIDE (test code=CL) 103 MMOL/L 98-107 CARBON DIOXIDE (test code=CO2) 30 MMOL/L 22-30 GLUCOSE (test code=GLU) 110 MG/DL 74-106 BLOOD UREA NITROGEN (test 8 MG/DL 7-17 code=BUN) GLOMERULAR FILTRATION RATE > 60 Reporting units: ml/min/1.73 (test code=GFR) m2 (Modified MDRD Formula)Reference Range: > or=60 ml/min/1.73 m2 CREATININE (test code=CREAT) 0.60 MG/DL 0.52-1.04 CALCIUM (test code=CA) 8.6 MG/DL 8.4-10.2 [id number] 05:48:00 Test Item Value Reference Range Comments MAGNESIUM (test code=MAG) 2.0 MG/DL 1.6-2.3 PROTHROMBIN [id number] 05:37:00 Test Item Value Reference Range Comments PROTHROMBIN TIME PATIENT (test 10.4 SECONDS 9.6-11.6 code=PTP) INTERNATIONAL NORMAL RATIO 1.0 0.8-1.1 The INR is to be used only (test code=INR) for monitoring oral anticoagulanttherapy. INDICATION INR VALUE 1. Prophylaxis, deep venous thrombosis, including high risk surgery. 2.0 - 3.0 2. Prophylaxis, deep venous thrombosis, hip surgery, treatment for deep venous thrombosis or pulmonary prevention of systemic embolism in patients with valvular heart disease, atrial fibrillation, tissue heart valve, or acute myocardial infarction. 2.0 - 3.0 3. Mechanical prosthesis heart valves, recurrent systemic embolism. 3.0 - 4.5 CBC W/O [id number] 05:18:00 Test Item Value Reference Range Comments WHITE BLOOD CELL (test code=WBC) 7.7 K/MM3 3.8-9.8 RED BLOOD CELL (test code=RBC) 3.51 M/MM3 3.58-4.97 HEMOGLOBIN (test code=HGB) 9.9 G/DL 11.2-14.9 HEMATOCRIT (test code=HCT) 32.0 % 33.2-43.5 MEAN CELL VOLUME (test code=MCV) 91 fL 80.7-99.1 MEAN CELL HGB (test code=MCH) 28.2 pg 27.0-34.1 MEAN CELL HGB CONCETRATION (test code=MCHC) 30.9 % 32.2-35.7 RED CELL DISTRIBUTION WIDTH (test code=RDW) 15.0 % 12.1-15.2 PLATELET COUNT (test code=PLT) 316 K/MM3 129-368 IMMATURE GRANULOCYTE % (test code=IG%) 1.3 % 0.0-2.0 NEUTROPHIL # (test code=NT#) 4.52 K/mm3 2.0-7.6 IMMATURE GRANULOCYTE # (test code=IG#) 0.10 x10 3/uL 0-0.03 LYMPHOCYTE # (test code=LY#) 1.21 K/mm3 1.0-3.8 MONOCYTE # (test code=MO#) 0.99 K/mm3 0.1-0.8 EOSINOPHIL # (test code=EO#) 0.86 K/mm3 0.0-0.2 BASOPHIL # (test code=BA#) 0.05 K/mm3 0.0-0.2 NUCLEATED RBC # (test code=NRBC#) 0.00 K/mm3 0.0-0.1 WBC [id number] 05:18:00 Test Item Value Reference Range Comments RBC MORPHOLOGY REQUIRED (test code=RBCM) TOTAL CELLS COUNTED (test code=TCC) #CELLS SEGMENTED NEUTROPHILS (test code=SEG) % 36.2-73.8 LYMPHOCYTE (test code=LYMPH) % 12.9-45.1 MONOCYTE (test code=MON) % 0-11 PLATELET ESTIMATE (test code=PLTEST) ADEQUATE PLATELET MORPHOLOGY (test code=PLTMORPH) NORMAL CBC W/AUTO [id number] 05:18:00 Test Item Value Reference Range Comments WHITE BLOOD CELL (test code=WBC) 7.7 K/MM3 3.8-9.8 RED BLOOD CELL (test code=RBC) 3.51 M/MM3 3.58-4.97 HEMOGLOBIN (test code=HGB) 9.9 G/DL 11.2-14.9 HEMATOCRIT (test code=HCT) 32.0 % 33.2-43.5 MEAN CELL VOLUME (test code=MCV) 91 fL 80.7-99.1 MEAN CELL HGB (test code=MCH) 28.2 pg 27.0-34.1 MEAN CELL HGB CONCETRATION (test code=MCHC) 30.9 % 32.2-35.7 RED CELL DISTRIBUTION WIDTH (test code=RDW) 15.0 % 12.1-15.2 PLATELET COUNT (test code=PLT) 316 K/MM3 129-368 MEAN PLATELET VOLUME (test code=MPV) 9.5 fl 7.4-10.4 NEUTROPHIL % (test code=NT%) 58.5 % 43-75 IMMATURE GRANULOCYTE % (test code=IG%) 1.3 % 0.0-2.0 LYMPHOCYTE % (test code=LY%) 15.7 % 14-44 MONOCYTE % (test code=MO%) 12.8 % 4-13 EOSINOPHIL % (test code=EO%) 11.1 % 0-6 BASOPHIL % (test code=BA%) 0.6 % 0-2 NUCLEATED RBC % (test code=NRBC%) 0.0 % 0-1.0 NEUTROPHIL # (test code=NT#) 4.52 K/mm3 2.0-7.6 IMMATURE GRANULOCYTE # (test code=IG#) 0.10 x10 3/uL 0-0.03 LYMPHOCYTE # (test code=LY#) 1.21 K/mm3 1.0-3.8 MONOCYTE # (test code=MO#) 0.99 K/mm3 0.1-0.8 EOSINOPHIL # (test code=EO#) 0.86 K/mm3 0.0-0.2 BASOPHIL # (test code=BA#) 0.05 K/mm3 0.0-0.2 NUCLEATED RBC # (test code=NRBC#) 0.00 K/mm3 0.0-0.1 WBC [id number] 05:18:00 Test Item Value Reference Range Comments RBC MORPHOLOGY REQUIRED (test code=RBCM) TOTAL CELLS COUNTED (test code=TCC) #CELLS SEGMENTED NEUTROPHILS (test code=SEG) % 36.2-73.8 LYMPHOCYTE (test code=LYMPH) % 12.9-45.1 MONOCYTE (test code=MON) % 0-11 PLATELET ESTIMATE (test code=PLTEST) ADEQUATE PLATELET MORPHOLOGY (test code=PLTMORPH) NORMAL - XR CHEST [id number] 07:05:00 Patient Name: MOISÉS CANNON Unit No: [id number] EXAMS: CPT CODE: [id number] XR CHEST 1V [id number] Single View Chest. Location: B2 Clinical Indication: 63-year-old with chest tube and subcutaneous emphysema Comparison: December 15, 2018 Findings: An AP view of the chest was obtained. There is postoperative change of the right upper lung. A chest tube is present. The right hemidiaphragm is elevated. There is diffuse chest wall subcutaneous emphysema. This obscures evaluation of the lung parenchyma. Heart size is normal. No acute osseous abnormality. Impression: No interval change. at 0705 Reported and signed by: Chris Simmons M.D. CC: Chito Hanson MD Technologist: Jericho Bates, RT(R) Transcrpt Date/Tm/Trnsp: 12/16/2018 (0705) [id number] Orig Print D/T: S: 12/16/2018 (0708) [facility] NAME: MOISÉS CANNON [id number] PHYS: [place] [address] : 1955 AGE: 63 SEX: F LOC: [id number].[id number] A PHONE #: [phone] EXAM DATE: 12/16/2018 STATUS: ADM IN FAX #: [phone] RADIOLOGY NO: PAGE 1 Signed ReportBASIC METABOLIC [id number] 06:21:00 Test Item Value Reference Range Comments SODIUM (test code=NA) 131 MMOL/L 137-145 POTASSIUM (test code=K) 4.1 MMOL/L 3.5-5.1 CHLORIDE (test code=CL) 98 MMOL/L 98-107 CARBON DIOXIDE (test code=CO2) 29 MMOL/L 22-30 GLUCOSE (test code=GLU) 101 MG/DL 74-106 BLOOD UREA NITROGEN (test 6 MG/DL 7-17 code=BUN) GLOMERULAR FILTRATION RATE > 60 Reporting units: ml/min/1.73 (test code=GFR) m2 (Modified MDRD Formula)Reference Range: > or=60 ml/min/1.73 m2 CREATININE (test code=CREAT) 0.50 MG/DL 0.52-1.04 CALCIUM (test code=CA) 9.0 MG/DL 8.4-10.2 [id number] 06:21:00 Test Item Value Reference Range Comments MAGNESIUM (test code=MAG) 2.0 MG/DL 1.6-2.3 CBC W/AUTO [id number] 05:52:00 Test Item Value Reference Range Comments WHITE BLOOD CELL (test code=WBC) 7.9 K/MM3 3.8-9.8 RED BLOOD CELL (test code=RBC) 3.64 M/MM3 3.58-4.97 HEMOGLOBIN (test code=HGB) 10.2 G/DL 11.2-14.9 HEMATOCRIT (test code=HCT) 32.9 % 33.2-43.5 MEAN CELL VOLUME (test code=MCV) 90 fL 80.7-99.1 MEAN CELL HGB (test code=MCH) 28.0 pg 27.0-34.1 MEAN CELL HGB CONCETRATION (test code=MCHC) 31.0 % 32.2-35.7 RED CELL DISTRIBUTION WIDTH (test code=RDW) 14.8 % 12.1-15.2 PLATELET COUNT (test code=PLT) 320 K/MM3 129-368 MEAN PLATELET VOLUME (test code=MPV) 9.4 fl 7.4-10.4 NEUTROPHIL % (test code=NT%) 66.6 % 43-75 IMMATURE GRANULOCYTE % (test code=IG%) 1.8 % 0.0-2.0 LYMPHOCYTE % (test code=LY%) 14.4 % 14-44 MONOCYTE % (test code=MO%) 9.3 % 4-13 EOSINOPHIL % (test code=EO%) 7.3 % 0-6 BASOPHIL % (test code=BA%) 0.6 % 0-2 NUCLEATED RBC % (test code=NRBC%) 0.0 % 0-1.0 NEUTROPHIL # (test code=NT#) 5.23 K/mm3 2.0-7.6 IMMATURE GRANULOCYTE # (test code=IG#) 0.14 x10 3/uL 0-0.03 LYMPHOCYTE # (test code=LY#) 1.13 K/mm3 1.0-3.8 MONOCYTE # (test code=MO#) 0.73 K/mm3 0.1-0.8 EOSINOPHIL # (test code=EO#) 0.57 K/mm3 0.0-0.2 BASOPHIL # (test code=BA#) 0.05 K/mm3 0.0-0.2 NUCLEATED RBC # (test code=NRBC#) 0.00 K/mm3 0.0-0.1 - XR CHEST [id number] 05:42:00 Patient Name: MOISÉS CANNON Unit No: [id number] EXAMS: CPT CODE: [id number] XR CHEST 1V 68925 Location: U19. CHEST, FRONTAL VIEW HISTORY: SUBQ EMPHYSEMA, CHEST TUBE IN PLACE FINDINGS: Since , the extensive subcutaneous emphysema is unchanged. Partial resection of the right lung with the right chest tube remaining in place. No obvious pneumothorax, somewhat limited due to the extensive subcutaneous air. The heart size is normal. Aorta is partially calcified. Right IJ within theSVC. The bones are intact. IMPRESSION: Stable operative changes in the right lung with chest tube. Extensive subcutaneous emphysema without any obvious pneumothorax. Electronically Signed by Obed Villasenor MD on 2018 at 0542 Reported and signed by: Obed Villasenor MD CC: Chito Hanson MD Technologist : Jericho Bates RT(R) Transcrpt Date/Tm/ Trnsp: 12/15/2018 (0542) [email or web address] Orig Print D/T: S: 12/15/2018 ( 0545) [facility] NAME: MOISÉS CANNON [address] PHYS: [place] [address] : 1955 AGE: 63 SEX: F LOC: Z.SI04 A PHONE #: [phone] EXAM DATE: 12/15/2018 STATUS: ADM IN FAX #: [phone] RADIOLOGY NO: PAGE 1 Signed Report- XR CHEST [id number] 08:24:00 Patient Name: MOISÉS CANNON Unit No: [id number] EXAMS: CPT CODE: [id number] XR CHEST 1V 81935 REASON FOR EXAM: Chest tube, thoracotomy.. COMPARISON: December. Chest, portable single frontal view. Fara graph the right-sided chest tubein stable position. No detectable pneumothorax. Jugular line stable as well. The degree of subcutaneous emphysema is very similar including distribution. The lungs are well-inflated with continued densities in the left lung base likely pneumonia or atelectasis. Elevated right diaphragm. Heart size is normal. No effusion or pneumothorax can be seen. Osseous structures appear to be intact. IMPRESSION: Stable chest with chest tube in place. No pneumothorax documented. Subcutaneous emphysema distribution appears to be similar. Left basilar densities, stable likely atelectasis versus pneumonia Location: U19 at 0824 Reported and signed by: Chris Ortiz MD CC: Chito Hanson MD Technologist: Maryjane Chan, RT(R) Transcrpt Date/Tm/Trnsp: 12/14/2018 (0824) A[facility]en Orig Print D/T: S: 12/14/2018 (0827) [facility] NAME: MOISÉS CANNON [address] PHYS: [place] [address] : 1955 AGE: 63 SEX: F LOC: Z.SI04 A PHONE #: [phone] EXAM DATE : 12/14/2018 STATUS: ADM IN FAX #: [phone] NO: PAGE 1 Signed ReportBASIC METABOLIC [id number] 07:39 :00 Test Item Value Reference Range Comments SODIUM (test code=NA) 131 MMOL/L 137-145 POTASSIUM (test code=K) 3.8 MMOL/L 3.5-5.1 CHLORIDE (test code=CL) 98 MMOL/L 98-107 CARBON DIOXIDE (test code=CO2) 27 MMOL/L 22-30 GLUCOSE (test code=GLU) 90 MG/DL 74-106 BLOOD UREA NITROGEN (test 7 MG/DL 7-17 code=BUN) GLOMERULAR FILTRATION RATE > 60 Reporting units: ml/min/1.73 (test code=GFR) m2 (Modified MDRD Formula)Reference Range: > or=60 ml/min/1.73 m2 CREATININE (test code=CREAT) 0.50 MG/DL 0.52-1.04 CALCIUM (test code=CA) 8.6 MG/DL 8.4-10.2 [id number] 07:39:00 Test Item Value Reference Range Comments MAGNESIUM (test code=MAG) 2.0 MG/DL 1.6-2.3 CBC W/AUTO [id number] 07:24:00 Test Item Value Reference Range Comments WHITE BLOOD CELL (test code=WBC) 9.8 K/MM3 3.8-9.8 RED BLOOD CELL (test code=RBC) 3.72 M/MM3 3.58-4.97 HEMOGLOBIN (test code=HGB) 10.6 G/DL 11.2-14.9 HEMATOCRIT (test code=HCT) 33.2 % 33.2-43.5 MEAN CELL VOLUME (test code=MCV) 89 fL 80.7-99.1 MEAN CELL HGB (test code=MCH) 28.5 pg 27.0-34.1 MEAN CELL HGB CONCETRATION (test code=MCHC) 31.9 % 32.2-35.7 RED CELL DISTRIBUTION WIDTH (test code=RDW) 14.9 % 12.1-15.2 PLATELET COUNT (test code=PLT) 323 K/MM3 129-368 MEAN PLATELET VOLUME (test code=MPV) 9.3 fl 7.4-10.4 NEUTROPHIL % (test code=NT%) 71.2 % 43-75 IMMATURE GRANULOCYTE % (test code=IG%) 1.4 % 0.0-2.0 LYMPHOCYTE % (test code=LY%) 14.8 % 14-44 MONOCYTE % (test code=MO%) 7.7 % 4-13 EOSINOPHIL % (test code=EO%) 4.6 % 0-6 BASOPHIL % (test code=BA%) 0.3 % 0-2 NUCLEATED RBC % (test code=NRBC%) 0.0 % 0-1.0 NEUTROPHIL # (test code=NT#) 6.99 K/mm3 2.0-7.6 IMMATURE GRANULOCYTE # (test code=IG#) 0.14 x10 3/uL 0-0.03 LYMPHOCYTE # (test code=LY#) 1.45 K/mm3 1.0-3.8 MONOCYTE # (test code=MO#) 0.76 K/mm3 0.1-0.8 EOSINOPHIL # (test code=EO#) 0.45 K/mm3 0.0-0.2 BASOPHIL # (test code=BA#) 0.03 K/mm3 0.0-0.2 NUCLEATED RBC # (test code=NRBC#) 0.00 K/mm3 0.0-0.1 [id number] 11:49:00 Test Item Value Reference Range Comments POTASSIUM (test code=K) 3.7 MMOL/L 3.5-5.1 - XR CHEST [id number] 07:42:00 Patient Name: MOISÉS CANNON Unit No: [id number] EXAMS: CPT CODE: [id number] XR CHEST 1V 09016 EXAMINATION: - XR CHEST 1V. LOCATION: B2. HISTORY: F/U. COMPARISON: Radiograph dated 12/12/2018. TECHNIQUE: Single AP viewof the chest was obtained. FINDINGS: Right IJ line and right chest tube are unchanged in position. The heart is normal in size. There is elevation of the righthemidiaphragm with mild blunting of the right costophrenic angle. Mild left basilar opacitiesare present. There is no pneumothorax. Extensive subcutaneous emphysema is seen throughout the visualized soft tissues, not significantly changed. There has been prior lower cervical spine surgery. No new osseous abnormality is identified. IMPRESSION: Small right pleural effusion and/or atelectasis. Mild left basilar opacities, likely representing atelectasis. Extensive subcutaneous emphysema, unchanged. at 0742 Reported and signed by: Pushpa Wagoner MD CC: Chito Hanson MD Technologist: Maryjane Giles, RT(R) Transcrpt Date/Tm/Trnsp: 12/13/2018 (0742) [email or web address] Orig Print D/T: S: (0745) [facility] NAME : MOISÉS CANNON [address] PHYS: [place] [address] : 1954 AGE: 63 SEX: F LOC: Z.SI04 A PHONE #: [phone] EXAM DATE: STATUS: ADM IN FAX #: [phone] RADIOLOGY NO: PAGE 1 Signed ReportTB TEST [id number] 07:32: 00 Test Item Value Reference Range Comments TB TEST IGRA (test code=TBTEST) Negative Negative BASIC METABOLIC [id number] 05:53:00 Test Item Value Reference Range Comments SODIUM (test code=NA) 134 MMOL/L 137-145 POTASSIUM (test code=K) 3.4 MMOL/L 3.5-5.1 CHLORIDE (test code=CL) 99 MMOL/L 98-107 CARBON DIOXIDE (test code=CO2) 28 MMOL/L 22-30 GLUCOSE (test code=GLU) 99 MG/DL 74-106 BLOOD UREA NITROGEN (test 6 MG/DL 7-17 code=BUN) GLOMERULAR FILTRATION RATE > 60 Reporting units: ml/min/1.73 (test code=GFR) m2 (Modified MDRD Formula)Reference Range: > or=60 ml/min/1.73 m2 CREATININE (test code=CREAT) 0.50 MG/DL 0.52-1.04 CALCIUM (test code=CA) 8.7 MG/DL 8.4-10.2 [id number] 05:53:00 Test Item Value Reference Range Comments MAGNESIUM (test code=MAG) 1.8 MG/DL 1.6-2.3 CBC W/AUTO [id number] 05:35:00 Test Item Value Reference Range Comments WHITE BLOOD CELL (test code=WBC) 9.2 K/MM3 3.8-9.8 RED BLOOD CELL (test code=RBC) 3.69 M/MM3 3.58-4.97 HEMOGLOBIN (test code=HGB) 10.4 G/DL 11.2-14.9 HEMATOCRIT (test code=HCT) 33.1 % 33.2-43.5 MEAN CELL VOLUME (test code=MCV) 90 fL 80.7-99.1 MEAN CELL HGB (test code=MCH) 28.2 pg 27.0-34.1 MEAN CELL HGB CONCETRATION (test code=MCHC) 31.4 % 32.2-35.7 RED CELL DISTRIBUTION WIDTH (test code=RDW) 15.0 % 12.1-15.2 PLATELET COUNT (test code=PLT) 281 K/MM3 129-368 MEAN PLATELET VOLUME (test code=MPV) 9.7 fl 7.4-10.4 NEUTROPHIL % (test code=NT%) 71.0 % 43-75 IMMATURE GRANULOCYTE % (test code=IG%) 1.5 % 0.0-2.0 LYMPHOCYTE % (test code=LY%) 16.0 % 14-44 MONOCYTE % (test code=MO%) 7.7 % 4-13 EOSINOPHIL % (test code=EO%) 3.5 % 0-6 BASOPHIL % (test code=BA%) 0.3 % 0-2 NUCLEATED RBC % (test code=NRBC%) 0.0 % 0-1.0 NEUTROPHIL # (test code=NT#) 6.52 K/mm3 2.0-7.6 IMMATURE GRANULOCYTE # (test code=IG#) 0.14 x10 3/uL 0-0.03 LYMPHOCYTE # (test code=LY#) 1.47 K/mm3 1.0-3.8 MONOCYTE # (test code=MO#) 0.71 K/mm3 0.1-0.8 EOSINOPHIL # (test code=EO#) 0.32 K/mm3 0.0-0.2 BASOPHIL # (test code=BA#) 0.03 K/mm3 0.0-0.2 NUCLEATED RBC # (test code=NRBC#) 0.00 K/mm3 0.0-0.1 - XR CHEST [id number] 08:38:00 Patient Name: MOISÉS CANNON Unit No: [id number] EXAMS: CPT CODE: [id number] XR CHEST 1V 82507 REASON FOR EXAM: Lung tumor resection. COMPARISON: December 11, 2018. Chest, portable single frontal view. The right -sided chest tube is in good position, stable. No obvious pneumothorax. Right jugular line intact as well in the superior vena cava. Similar, extensive subcutaneous emphysema limits the study. The lungs are fairly well-inflated and clear. Postop findings in the right lung. Heart size is normal. No effusion or pneumothorax can be seen. Osseous structures appear to be intact. IMPRESSION: No identifiable pneumothorax. Slightly limited study. Right chest tube , stable. Similar appearance to subcutaneous emphysema. Location: U19 at 0838 Reported and signed by:Chris Ortiz MD CC: Chito Hanson MD Technologist: Maryjane Giles RT(R) Transcrpt Date/Tm/Trnsp: 12/12/2018 (0838) Ayleen Orig Print D/T: S: 12/12/2018 (0841) [facility] NAME: MOISÉS CANNON [address] PHYS: [place] [address] : 1955 AGE: 63 SEX: F LOC: Z.SI04 A PHONE #: [phone] EXAM DATE: 12/12/2018 STATUS: ADM IN FAX #: [phone] RADIOLOGY NO: PAGE 1 Signed ReportAB [id number] 07:36:00 Test Item Value Reference Range Comments AB COCCIDIOIDES (test code=COCCIAB) <0.150 < 1:2 BASIC METABOLIC [id number] 05:56:00 Test Item Value Reference Range Comments SODIUM (test code=NA) 134 MMOL/L 137-145 POTASSIUM (test code=K) 3.5 MMOL/L 3.5-5.1 CHLORIDE (test code=CL) 99 MMOL/L 98-107 CARBON DIOXIDE (test code=CO2) 31 MMOL/L 22-30 GLUCOSE (test code=GLU) 99 MG/DL 74-106 BLOOD UREA NITROGEN (test 8 MG/DL 7-17 code=BUN) GLOMERULAR FILTRATION RATE > 60 Reporting units: ml/min/1.73 (test code=GFR) m2 (Modified MDRD Formula)Reference Range: > or=60 ml/min/1.73 m2 CREATININE (test code=CREAT) 0.50 MG/DL 0.52-1.04 CALCIUM (test code=CA) 8.7 MG/DL 8.4-10.2 [id number] 05:56:00 Test Item Value Reference Range Comments MAGNESIUM (test code=MAG) 1.9 MG/DL 1.6-2.3 CBC W/AUTO [id number] 05:42:00 Test Item Value Reference Range Comments WHITE BLOOD CELL (test code=WBC) 7.7 K/MM3 3.8-9.8 RED BLOOD CELL (test code=RBC) 3.72 M/MM3 3.58-4.97 HEMOGLOBIN (test code=HGB) 10.5 G/DL 11.2-14.9 HEMATOCRIT (test code=HCT) 33.1 % 33.2-43.5 MEAN CELL VOLUME (test code=MCV) 89 fL 80.7-99.1 MEAN CELL HGB (test code=MCH) 28.2 pg 27.0-34.1 MEAN CELL HGB CONCETRATION (test code=MCHC) 31.7 % 32.2-35.7 RED CELL DISTRIBUTION WIDTH (test code=RDW) 14.8 % 12.1-15.2 PLATELET COUNT (test code=PLT) 305 K/MM3 129-368 MEAN PLATELET VOLUME (test code=MPV) 9.8 fl 7.4-10.4 NEUTROPHIL % (test code=NT%) 71.5 % 43-75 IMMATURE GRANULOCYTE % (test code=IG%) 1.0 % 0.0-2.0 LYMPHOCYTE % (test code=LY%) 16.6 % 14-44 MONOCYTE % (test code=MO%) 8.0 % 4-13 EOSINOPHIL % (test code=EO%) 2.6 % 0-6 BASOPHIL % (test code=BA%) 0.3 % 0-2 NUCLEATED RBC % (test code=NRBC%) 0.0 % 0-1.0 NEUTROPHIL # (test code=NT#) 5.51 K/mm3 2.0-7.6 IMMATURE GRANULOCYTE # (test code=IG#) 0.08 x10 3/uL 0-0.03 LYMPHOCYTE # (test code=LY#) 1.28 K/mm3 1.0-3.8 MONOCYTE # (test code=MO#) 0.62 K/mm3 0.1-0.8 EOSINOPHIL # (test code=EO#) 0.20 K/mm3 0.0-0.2 BASOPHIL # (test code=BA#) 0.02 K/mm3 0.0-0.2 NUCLEATED RBC # (test code=NRBC#) 0.00 K/mm3 0.0-0.1 AG HISTOPLASMA [id number] 07:26:00 Test Item Value Reference Range Comments AG HISTOPLASMA UA (test code=HISUAAG) <0.5 EIA unit <0.5 ng/mL - XR CHEST [id number] 06:56:00 Patient Name: MOISÉS CANNON Unit No: [id number] EXAMS: CPT CODE: [id number] XR CHEST 1V 18936 Location: U19. CHEST, FRONTAL VIEW HISTORY: S/P CT INSERTION, RIGHT FINDINGS: Since 12/08/18, the right chest tube is stable in position. There is extensive diffuse subcutaneous emphysema limiting assessment of the lungs. No definite pneumothorax. Probable atelectasis in the left lower lobe. The heart size is normal. Aorta is partially calcified. Right IJ CVC within the SVC. Anterior cervical fusion. IMPRESSION: Extensive subcutaneous emphysema. Stable right chest tube. No gross pneumothorax, though assessment is significantly limited. at 0656 Reported and signed by: Obed Villasenor MD CC: Chito Hanson MD Technologist: Maryjane Giles RT(R) Transcrpt Date/Tm/Trnsp: 12/11/2018 (0656) [email or web address] OrigPrint D/T: S: 12/11/2018 (0700) [facility] NAME: MOISÉS CANNON [address] PHYS: [place] [address] : 1955 AGE: 63 SEX: F LOC: Z.SI04 A PHONE #: [phone] EXAM DATE: 12/11/2018 STATUS: ADM IN FAX #: [phone] RADIOLOGY NO: PAGE 1 Signed ReportBASIC METABOLIC [id number] 05:46:00 Test Item Value Reference Range Comments SODIUM (test code=NA) 134 MMOL/L 137-145 POTASSIUM (test code=K) 3.3 MMOL/L 3.5-5.1 CHLORIDE (test code=CL) 97 MMOL/L 98-107 CARBON DIOXIDE (test code=CO2) 30 MMOL/L 22-30 ANION GAP (test code=GAP) 10 MMOL/L 14-24 GLUCOSE (test code=GLU) 117 MG/DL 74-106 BLOOD UREA NITROGEN (test 7 MG/DL 7-17 code=BUN) GLOMERULAR FILTRATION RATE > 60 Reporting units: ml/min/1.73 (test code=GFR) m2 (Modified MDRD Formula)Reference Range: > or=60 ml/min/1.73 m2 CREATININE (test code=CREAT) 0.50 MG/DL 0.52-1.04 CALCIUM (test code=CA) 8.7 MG/DL 8.4-10.2 [id number] 05:46:00 Test Item Value Reference Range Comments MAGNESIUM (test code=MAG) 1.9 MG/DL 1.6-2.3 CBC W/AUTO [id number] 05:28:00 Test Item Value Reference Range Comments WHITE BLOOD CELL (test code=WBC) 7.8 K/MM3 3.8-9.8 RED BLOOD CELL (test code=RBC) 3.79 M/MM3 3.58-4.97 HEMOGLOBIN (test code=HGB) 10.8 G/DL 11.2-14.9 HEMATOCRIT (test code=HCT) 34.0 % 33.2-43.5 MEAN CELL VOLUME (test code=MCV) 90 fL 80.7-99.1 MEAN CELL HGB (test code=MCH) 28.5 pg 27.0-34.1 MEAN CELL HGB CONCETRATION (test code=MCHC) 31.8 % 32.2-35.7 RED CELL DISTRIBUTION WIDTH (test code=RDW) 14.6 % 12.1-15.2 PLATELET COUNT (test code=PLT) 286 K/MM3 129-368 MEAN PLATELET VOLUME (test code=MPV) 9.8 fl 7.4-10.4 NEUTROPHIL % (test code=NT%) 71.9 % 43-75 IMMATURE GRANULOCYTE % (test code=IG%) 1.0 % 0.0-2.0 LYMPHOCYTE % (test code=LY%) 15.4 % 14-44 MONOCYTE % (test code=MO%) 8.8 % 4-13 EOSINOPHIL % (test code=EO%) 2.4 % 0-6 BASOPHIL % (test code=BA%) 0.5 % 0-2 NUCLEATED RBC % (test code=NRBC%) 0.0 % 0-1.0 NEUTROPHIL # (test code=NT#) 5.60 K/mm3 2.0-7.6 IMMATURE GRANULOCYTE # (test code=IG#) 0.08 x10 3/uL 0-0.03 LYMPHOCYTE # (test code=LY#) 1.20 K/mm3 1.0-3.8 MONOCYTE # (test code=MO#) 0.69 K/mm3 0.1-0.8 EOSINOPHIL # (test code=EO#) 0.19 K/mm3 0.0-0.2 BASOPHIL # (test code=BA#) 0.04 K/mm3 0.0-0.2 NUCLEATED RBC # (test code=NRBC#) 0.00 K/mm3 0.0-0.1 BASIC METABOLIC [id number] 05:54:00 Test Item Value Reference Range Comments SODIUM (test code=NA) 131 MMOL/L 137-145 POTASSIUM (test code=K) 3.8 MMOL/L 3.5-5.1 CHLORIDE (test code=CL) 92 MMOL/L 98-107 CARBON DIOXIDE (test code=CO2) 28 MMOL/L 22-30 ANION GAP (test code=GAP) 15 MMOL/L 14-24 GLUCOSE (test code=GLU) 98 MG/DL 74-106 BLOOD UREA NITROGEN (test 9 MG/DL 7-17 code=BUN) GLOMERULAR FILTRATION RATE > 60 Reporting units: ml/min/1.73 (test code=GFR) m2 (Modified MDRD Formula)Reference Range: > or=60 ml/min/1.73 m2 CREATININE (test code=CREAT) 0.40 MG/DL 0.52-1.04 CALCIUM (test code=CA) 8.7 MG/DL 8.4-10.2 CBC W/AUTO [id number] 05:35:00 Test Item Value Reference Range Comments WHITE BLOOD CELL (test code=WBC) 7.3 K/MM3 3.8-9.8 RED BLOOD CELL (test code=RBC) 3.99 M/MM3 3.58-4.97 HEMOGLOBIN (test code=HGB) 11.4 G/DL 11.2-14.9 HEMATOCRIT (test code=HCT) 35.9 % 33.2-43.5 MEAN CELL VOLUME (test code=MCV) 90 fL 80.7-99.1 MEAN CELL HGB (test code=MCH) 28.6 pg 27.0-34.1 MEAN CELL HGB CONCETRATION (test code=MCHC) 31.8 % 32.2-35.7 RED CELL DISTRIBUTION WIDTH (test code=RDW) 14.3 % 12.1-15.2 PLATELET COUNT (test code=PLT) 293 K/MM3 129-368 MEAN PLATELET VOLUME (test code=MPV) 9.7 fl 7.4-10.4 NEUTROPHIL % (test code=NT%) 71.2 % 43-75 IMMATURE GRANULOCYTE % (test code=IG%) 1.1 % 0.0-2.0 LYMPHOCYTE % (test code=LY%) 15.3 % 14-44 MONOCYTE % (test code=MO%) 9.8 % 4-13 EOSINOPHIL % (test code=EO%) 2.3 % 0-6 BASOPHIL % (test code=BA%) 0.3 % 0-2 NUCLEATED RBC % (test code=NRBC%) 0.0 % 0-1.0 NEUTROPHIL # (test code=NT#) 5.21 K/mm3 2.0-7.6 IMMATURE GRANULOCYTE # (test code=IG#) 0.08 x10 3/uL 0-0.03 LYMPHOCYTE # (test code=LY#) 1.12 K/mm3 1.0-3.8 MONOCYTE # (test code=MO#) 0.72 K/mm3 0.1-0.8 EOSINOPHIL # (test code=EO#) 0.17 K/mm3 0.0-0.2 BASOPHIL # (test code=BA#) 0.02 K/mm3 0.0-0.2 NUCLEATED RBC # (test code=NRBC#) 0.00 K/mm3 0.0-0.1 BASIC METABOLIC [id number] 06:18:00 Test Item Value Reference Range Comments SODIUM (test code=NA) 129 MMOL/L 137-145 POTASSIUM (test code=K) 4.2 MMOL/L 3.5-5.1 CHLORIDE (test code=CL) 97 MMOL/L 98-107 CARBON DIOXIDE (test code=CO2) 27 MMOL/L 22-30 GLUCOSE (test code=GLU) 92 MG/DL 74-106 BLOOD UREA NITROGEN (test 17 MG/DL 7-17 code=BUN) GLOMERULAR FILTRATION RATE > 60 Reporting units: ml/min/1.73 (test code=GFR) m2 (Modified MDRD Formula)Reference Range: > or=60 ml/min/1.73 m2 CREATININE (test code=CREAT) 0.50 MG/DL 0.52-1.04 CALCIUM (test code=CA) 8.5 MG/DL 8.4-10.2 CBC W/AUTO [id number] 05:48:00 Test Item Value Reference Range Comments WHITE BLOOD CELL (test code=WBC) 7.9 K/MM3 3.8-9.8 RED BLOOD CELL (test code=RBC) 3.89 M/MM3 3.58-4.97 HEMOGLOBIN (test code=HGB) 11.2 G/DL 11.2-14.9 HEMATOCRIT (test code=HCT) 35.5 % 33.2-43.5 MEAN CELL VOLUME (test code=MCV) 91 fL 80.7-99.1 MEAN CELL HGB (test code=MCH) 28.8 pg 27.0-34.1 MEAN CELL HGB CONCETRATION (test code=MCHC) 31.5 % 32.2-35.7 RED CELL DISTRIBUTION WIDTH (test code=RDW) 14.3 % 12.1-15.2 PLATELET COUNT (test code=PLT) 274 K/MM3 129-368 MEAN PLATELET VOLUME (test code=MPV) 9.4 fl 7.4-10.4 NEUTROPHIL % (test code=NT%) 74.1 % 43-75 IMMATURE GRANULOCYTE % (test code=IG%) 0.9 % 0.0-2.0 LYMPHOCYTE % (test code=LY%) 14.1 % 14-44 MONOCYTE % (test code=MO%) 8.6 % 4-13 EOSINOPHIL % (test code=EO%) 2.0 % 0-6 BASOPHIL % (test code=BA%) 0.3 % 0-2 NUCLEATED RBC % (test code=NRBC%) 0.0 % 0-1.0 NEUTROPHIL # (test code=NT#) 5.86 K/mm3 2.0-7.6 IMMATURE GRANULOCYTE # (test code=IG#) 0.07 x10 3/uL 0-0.03 LYMPHOCYTE # (test code=LY#) 1.11 K/mm3 1.0-3.8 MONOCYTE # (test code=MO#) 0.68 K/mm3 0.1-0.8 EOSINOPHIL # (test code=EO#) 0.16 K/mm3 0.0-0.2 BASOPHIL # (test code=BA#) 0.02 K/mm3 0.0-0.2 NUCLEATED RBC # (test code=NRBC#) 0.00 K/mm3 0.0-0.1 - XR CHEST [id number] 11:16:00 Patient Name: MOISÉS CANNON Unit No: [id number] EXAMS: CPT CODE: [id number] XR CHEST 1V 99097 Site ID: [id number] HISTORY: Subcutaneous emphysema, right chest tube placement COMPARISON: 4 hours prior FINDINGS: Extensive diffuse subcutaneous emphysema remains present, limiting lung field and pleural space evaluation on this portable frontal radiograph. A right apical chest tube is in place, thereis evidence of prior right partial pneumonectomy. Cardiomediastinal silhouette does not appear enlarged. Right IJ line is appropriately positioned. IMPRESSION: Right apical chest tube in place, cannot accurately comment upon the presence or absence of a pneumothorax given the extensive overlying subcutaneous emphysema at 1116 Reported and signed by: Chano Cherry MD CC: Chito Hanson MD; Chris Rivera MD Technologist: Maksim Gonzales, RT(R) Transcrpt Date/Tm/Trnsp: 2018 (1116) [email or web address] Orig Print D/T: S: 12/08/2018 (1119) [facility] NAME: MOISÉS CANNON [id number] [address] PHYS: [place] [address] : 1955 AGE: 63 SEX: F LOC: Z.SI04 A PHONE #: [phone] EXAM DATE: 12/08/2018 STATUS: ADM IN FAX #: [phone] NO: PAGE 1 Signed [id number] 08:28:00 Test Item Value Reference Range Comments MAGNESIUM (test code=MAG) 2.0 MG/DL 1.6-2.3 - XR CHEST [id number] 07:15:00 Patient Name: MOISÉS CANNON Unit No: [id number] EXAMS: CPT CODE: [id number] XR CHEST 1V 19830 Location of dictation: B2 Portable chest one view. HISTORY: resp distress COMMENT: Compared to an earlier study the same day. The right IJ central line remains present. Cardiac silhouette is stable. There are more pronounced interstitial infiltrates overlying the lungs. Accounting for the presence of extensive subcutaneous air, findings suggest possible interstitial edema. No new consolidation, pneumothorax or significant effusion seen. Visualized soft tissues and skeletal structures are unremarkable. IMPRESSION: Suspect mild interstitial edema. Electronically Signed by Neelima Ghosh M.D. on at 0715 Reported and signed by: Neelima Ghosh M.D. CC: Chito Hanson MD; Jose Luis De La Vega MD Technologist: Renee (RT) (R) Transcrpt Date/Tm/Trnsp: 12/08/2018 (0715) [email or web address] Orig Print D/T: S: (0718) [facility] [place] NAME: MOISÉS CANNON [id number] [address] PHYS: Jose Luis Rodriguez MD [place] [id number] : 1954 AGE: 63 SEX: F LOC: Z.SI04 A PHONE #: [phone] EXAM DATE: STATUS: ADM IN FAX #: [phone] RADIOLOGY NO: PAGE 1 Signed Report- XR CHEST [id number] 07:08: 00 Patient Name: MOISÉS CANNON Unit No: [id number] EXAMS: CPT CODE: [id number] XR CHEST 1V 78885 Location of dictation: B2 Portable chest one view. HISTORY: F/U SUBCUTANEOUS EMPHYSEMA COMMENT: Compared to one day prior. Right IJ central line and right chest tube remain in place. The appearance of the heart and lungs is not appreciably changed. No definite pneumothorax but evaluation obscured by persistent but slightly improved subcutaneous emphysema. IMPRESSION: Stable appearance of the chest. at 0708 Reported and signed by: Neelima Ghosh M.D. CC: Chito Hanson MD; Oumou Stanley NP Technologist: Jericho Bates, RT(R) Transcrpt Date/Tm/Trnsp: 12/08/2018 (0708) [email or web address] Orig Print D/T: S: 12/08/2018 (0711) [facility] [place] NAME: MOISÉS CANNON [id number] [address] PHYS: [place] [address] : 1955 AGE: 63 SEX: F LOC: [email or web address] A PHONE #: [phone] EXAM DATE: STATUS: ADM IN FAX #: [phone] RADIOLOGY NO: PAGE 1 Signed ReportC ARTERIAL BLOOD [id number] 07:01:00 Test Item Value Reference Range Comments POC ARTERIAL BLOOD GAS PH (test code=POCPHA) 7.382 7.35-7.45 POC ARTERIAL BLOOD GAS PCO2 (test 51.4 mmHg 35.0-45.0 code=OGRYGA1Z) POC ARTERIAL BLOOD GAS PO2 (test 82 75.0-100.0 code=YRJWW9W) POC HCO3 ARTERIAL (test code=PBKAZP2Y) 30.5 MMOL/L 20.0-26.0 POC BASE EXCESS (test code=POCBEA) 5.0 MMOL/L -3.0-3.0 POC O2 SATURATION (test code=POCO2S) 96 % 92.0-98.5 FIO2 (test code=FIO2A) 40 % 21-100 ABG DELIVERY (test code=MARCUS) N/C ABG SITE (test code=SITEA) R Brachial ALLENS TEST (test code=ALLENS) N/A CHECK MD West/RBJob~ PROTHROMBIN [id number] 06:11:00 Test Item Value Reference Range Comments PROTHROMBIN TIME PATIENT (test 10.3 SECONDS 9.6-11.6 code=PTP) INTERNATIONAL NORMAL RATIO 1.0 0.8-1.1 The INR is to be used only (test code=INR) for monitoring oral anticoagulanttherapy. INDICATION INR VALUE 1. Prophylaxis, deep venous thrombosis, including high risk surgery. 2.0 - 3.0 2. Prophylaxis, deep venous thrombosis, hip surgery, treatment for deep venous thrombosis or pulmonary prevention of systemic embolism in patients with valvular heart disease, atrial fibrillation, tissue heart valve, or acute myocardial infarction. 2.0 - 3.0 3. Mechanical prosthesis heart valves, recurrent systemic embolism. 3.0 - 4.5 PTT [id number] 06:11:00 Test Item Value Reference Range Comments PTT ACTIVATED (test code=APTT) 23.2 SECONDS 22.0-33.0 BASIC METABOLIC [id number] 06:09:00 Test Item Value Reference Range Comments SODIUM (test code=NA) 136 MMOL/L 137-145 POTASSIUM (test code=K) 3.6 MMOL/L 3.5-5.1 CHLORIDE (test code=CL) 95 MMOL/L 98-107 CARBON DIOXIDE (test code=CO2) 30 MMOL/L 22-30 ANION GAP (test code=GAP) 15 MMOL/L 14-24 GLUCOSE (test code=GLU) 92 MG/DL 74-106 BLOOD UREA NITROGEN (test 16 MG/DL 7-17 code=BUN) GLOMERULAR FILTRATION RATE > 60 Reporting units: ml/min/1.73 (test code=GFR) m2 (Modified MDRD Formula)Reference Range: > or=60 ml/min/1.73 m2 CREATININE (test code=CREAT) 0.60 MG/DL 0.52-1.04 CALCIUM (test code=CA) 9.0 MG/DL 8.4-10.2 CBC W/AUTO [id number] 05:57:00 Test Item Value Reference Range Comments WHITE BLOOD CELL (test code=WBC) 10.1 K/MM3 3.8-9.8 RED BLOOD CELL (test code=RBC) 4.38 M/MM3 3.58-4.97 HEMOGLOBIN (test code=HGB) 12.5 G/DL 11.2-14.9 HEMATOCRIT (test code=HCT) 39.4 % 33.2-43.5 MEAN CELL VOLUME (test code=MCV) 90 fL 80.7-99.1 MEAN CELL HGB (test code=MCH) 28.5 pg 27.0-34.1 MEAN CELL HGB CONCETRATION (test code=MCHC) 31.7 % 32.2-35.7 RED CELL DISTRIBUTION WIDTH (test code=RDW) 14.6 % 12.1-15.2 PLATELET COUNT (test code=PLT) 324 K/MM3 129-368 MEAN PLATELET VOLUME (test code=MPV) 9.6 fl 7.4-10.4 NEUTROPHIL % (test code=NT%) 79.2 % 43-75 IMMATURE GRANULOCYTE % (test code=IG%) 0.6 % 0.0-2.0 LYMPHOCYTE % (test code=LY%) 9.3 % 14-44 MONOCYTE % (test code=MO%) 8.8 % 4-13 EOSINOPHIL % (test code=EO%) 1.8 % 0-6 BASOPHIL % (test code=BA%) 0.3 % 0-2 NUCLEATED RBC % (test code=NRBC%) 0.0 % 0-1.0 NEUTROPHIL # (test code=NT#) 8.04 K/mm3 2.0-7.6 IMMATURE GRANULOCYTE # (test code=IG#) 0.06 x10 3/uL 0-0.03 LYMPHOCYTE # (test code=LY#) 0.94 K/mm3 1.0-3.8 MONOCYTE # (test code=MO#) 0.89 K/mm3 0.1-0.8 EOSINOPHIL # (test code=EO#) 0.18 K/mm3 0.0-0.2 BASOPHIL # (test code=BA#) 0.03 K/mm3 0.0-0.2 NUCLEATED RBC # (test code=NRBC#) 0.00 K/mm3 0.0-0.1 BASIC METABOLIC [id number] 12:08:00 Test Item Value Reference Range Comments SODIUM (test code=NA) 134 MMOL/L 137-145 POTASSIUM (test code=K) 3.7 MMOL/L 3.5-5.1 CHLORIDE (test code=CL) 98 MMOL/L 98-107 CARBON DIOXIDE (test code=CO2) 30 MMOL/L 22-30 GLUCOSE (test code=GLU) 93 MG/DL 74-106 BLOOD UREA NITROGEN (test 9 MG/DL 7-17 code=BUN) GLOMERULAR FILTRATION RATE > 60 Reporting units: ml/min/1.73 (test code=GFR) m2 (Modified MDRD Formula)Reference Range: > or=60 ml/min/1.73 m2 CREATININE (test code=CREAT) 0.50 MG/DL 0.52-1.04 CALCIUM (test code=CA) 8.8 MG/DL 8.4-10.2 PROTHROMBIN [id number] 12:01:00 Test Item Value Reference Range Comments PROTHROMBIN TIME PATIENT (test 10.2 SECONDS 9.6-11.6 code=PTP) INTERNATIONAL NORMAL RATIO 1.0 0.8-1.1 The INR is to be used only (test code=INR) for monitoring oral anticoagulanttherapy. INDICATION INR VALUE 1. Prophylaxis, deep venous thrombosis, including high risk surgery. 2.0 - 3.0 2. Prophylaxis, deep venous thrombosis, hip surgery, treatment for deep venous thrombosis or pulmonary prevention of systemic embolism in patients with valvular heart disease, atrial fibrillation, tissue heart valve, or acute myocardial infarction. 2.0 - 3.0 3. Mechanical prosthesis heart valves, recurrent systemic embolism. 3.0 - 4.5 PTT [id number] 12:01:00 Test Item Value Reference Range Comments PTT ACTIVATED (test code=APTT) 24.1 SECONDS 21.0-33.0 CBC W/AUTO [id number] 11:49:00 Test Item Value Reference Range Comments WHITE BLOOD CELL (test code=WBC) 7.9 K/MM3 3.8-9.8 RED BLOOD CELL (test code=RBC) 3.97 M/MM3 3.58-4.97 HEMOGLOBIN (test code=HGB) 11.5 G/DL 11.2-14.9 HEMATOCRIT (test code=HCT) 35.8 % 33.2-43.5 MEAN CELL VOLUME (test code=MCV) 90 fL 80.7-99.1 MEAN CELL HGB (test code=MCH) 29.0 pg 27.0-34.1 MEAN CELL HGB CONCETRATION (test code=MCHC) 32.1 % 32.2-35.7 RED CELL DISTRIBUTION WIDTH (test code=RDW) 14.7 % 12.1-15.2 PLATELET COUNT (test code=PLT) 290 K/MM3 129-368 MEAN PLATELET VOLUME (test code=MPV) 9.5 fl 7.4-10.4 NEUTROPHIL % (test code=NT%) 73.6 % 43-75 IMMATURE GRANULOCYTE % (test code=IG%) 0.8 % 0.0-2.0 LYMPHOCYTE % (test code=LY%) 13.8 % 14-44 MONOCYTE % (test code=MO%) 9.1 % 4-13 EOSINOPHIL % (test code=EO%) 2.4 % 0-6 BASOPHIL % (test code=BA%) 0.3 % 0-2 NUCLEATED RBC % (test code=NRBC%) 0.0 % 0-1.0 NEUTROPHIL # (test code=NT#) 5.83 K/mm3 2.0-7.6 IMMATURE GRANULOCYTE # (test code=IG#) 0.06 x10 3/uL 0-0.03 LYMPHOCYTE # (test code=LY#) 1.09 K/mm3 1.0-3.8 MONOCYTE # (test code=MO#) 0.72 K/mm3 0.1-0.8 EOSINOPHIL # (test code=EO#) 0.19 K/mm3 0.0-0.2 BASOPHIL # (test code=BA#) 0.02 K/mm3 0.0-0.2 NUCLEATED RBC # (test code=NRBC#) 0.00 K/mm3 0.0-0.1 - XR CHEST [id number] 08:32:00 Patient Name: MOISÉS CANNON Unit No: [id number] EXAMS: CPT CODE: [id number] XR CHEST 1V 54216 Location of dictation: B2 Portable chest one view. HISTORY: S /P R.A. R LUNG MASS RESECTION COMMENT: Compared to one day prior. Support lines and catheters remain in good positions. Cardiac silhouette is stable. Patchy infiltrates again noted with elevation of the right diaphragm. Extensive subcutaneous air also unchanged. There has been no significant changes. IMPRESSION: No acute findings orchanges in the chest. at 0832 Reported and signed by: Neelima Ghosh M.D. CC: Chito Hanson MD Technologist: RT Luc(R) Transcrpt Date/Tm/Trnsp: 2018 (0832) [email or web address] Orig Print D/T: S: 12/07/2018 (0835) [facility] NAME: MOISÉS CANNON [address] PHYS: [place] [address] : 1955 AGE: 63 SEX: F LOC: Z.SI04 A PHONE #: [phone] EXAM DATE: 12/07/2018 STATUS: ADM IN FAX #: [phone] RADIOLOGY NO: PAGE 1 Signed Report- XR CHEST [id number] 07:52:00 Patient Name: MOISÉS CANNON Unit No: [id number] EXAMS: CPT CODE: [id number] XR CHEST 1V 52760 Location of dictation: B2 Portable chest one view. HISTORY: S/P R.A. RIGHT LUNG MASS RESECTION COMMENT: Compared to 2 days prior. The heart is normal in size. There is decreased lucency in the mediastinum. The appearance of the lungs are stable with patchy bibasilar infiltrates and possibly small effusions. Extensive subcutaneous air again noted and may be slightly improved.No new changes noted. A right IJ central line remains in place. Patient is post cervical fusion. Bone anchors overlie the right humeral head. IMPRESSION: Overall improvedappearance of the chest with no unfavorable findings over 2 days. ElectronicallySigned by Neelima Ghosh M.D. on 12/06/2018 at 0752 Reported and signed by: Neelima Ghosh M.D. CC: Chito Hanson MD Technologist: RT Luc(R) Transcrpt Date/Tm/Trnsp : 12/06/2018 (0752) [email or web address] Orig Print D/T: S: 12/06/2018 (0755 ) [facility] NAME: DAVISMOISÉSTEN DUEÑAS [address] PHYS: [place] [address] : 1955 AGE: 63 SEX: F LOC: Z.SI04 A PHONE #: [phone] EXAM DATE: 12/06/2018 STATUS: ADM IN FAX #: [phone] RADIOLOGY NO: PAGE 1 Signed ReportBASIC METABOLIC [id number] 05:28:00 Test Item Value Reference Range Comments SODIUM (test code=NA) 135 MMOL/L 137-145 POTASSIUM (test code=K) 3.8 MMOL/L 3.5-5.1 CHLORIDE (test code=CL) 98 MMOL/L 98-107 CARBON DIOXIDE (test code=CO2) 32 MMOL/L 22-30 GLUCOSE (test code=GLU) 109 MG/DL 74-106 BLOOD UREA NITROGEN (test 11 MG/DL 7-17 code=BUN) GLOMERULAR FILTRATION RATE > 60 Reporting units: ml/min/1.73 (test code=GFR) m2 (Modified MDRD Formula)Reference Range: > or=60 ml/min/1.73 m2 CREATININE (test code=CREAT) 0.60 MG/DL 0.52-1.04 CALCIUM (test code=CA) 9.1 MG/DL 8.4-10.2 [id number] 05:28:00 Test Item Value Reference Range Comments MAGNESIUM (test code=MAG) 2.0 MG/DL 1.6-2.3 CBC W/AUTO [id number] 05:05:00 Test Item Value Reference Range Comments WHITE BLOOD CELL (test code=WBC) 8.7 K/MM3 3.8-9.8 RED BLOOD CELL (test code=RBC) 4.07 M/MM3 3.58-4.97 HEMOGLOBIN (test code=HGB) 11.6 G/DL 11.2-14.9 HEMATOCRIT (test code=HCT) 37.0 % 33.2-43.5 MEAN CELL VOLUME (test code=MCV) 91 fL 80.7-99.1 MEAN CELL HGB (test code=MCH) 28.5 pg 27.0-34.1 MEAN CELL HGB CONCETRATION (test code=MCHC) 31.4 % 32.2-35.7 RED CELL DISTRIBUTION WIDTH (test code=RDW) 14.7 % 12.1-15.2 PLATELET COUNT (test code=PLT) 281 K/MM3 129-368 MEAN PLATELET VOLUME (test code=MPV) 9.7 fl 7.4-10.4 NEUTROPHIL % (test code=NT%) 73.9 % 43-75 IMMATURE GRANULOCYTE % (test code=IG%) 0.5 % 0.0-2.0 LYMPHOCYTE % (test code=LY%) 14.7 % 14-44 MONOCYTE % (test code=MO%) 8.6 % 4-13 EOSINOPHIL % (test code=EO%) 2.1 % 0-6 BASOPHIL % (test code=BA%) 0.2 % 0-2 NUCLEATED RBC % (test code=NRBC%) 0.0 % 0-1.0 NEUTROPHIL # (test code=NT#) 6.45 K/mm3 2.0-7.6 IMMATURE GRANULOCYTE # (test code=IG#) 0.04 x10 3/uL 0-0.03 LYMPHOCYTE # (test code=LY#) 1.28 K/mm3 1.0-3.8 MONOCYTE # (test code=MO#) 0.75 K/mm3 0.1-0.8 EOSINOPHIL # (test code=EO#) 0.18 K/mm3 0.0-0.2 BASOPHIL # (test code=BA#) 0.02 K/mm3 0.0-0.2 NUCLEATED RBC # (test code=NRBC#) 0.00 K/mm3 0.0-0.1 [id number] 16:13:00 RUN DATE: 12/05/18 [facility] PAGE 1 RUN TIME: 1614 Specimen Inquiry RUN USER: INTERFACE PATIENT: MOISÉS CANNON LOC: LAURA U #: [id number] AGE/SX: 63/F ROOM: [facility] RE11/30/18[facility] DR: Chris Rivera MD : 55 BED: A DIS: STATUS: ADM IN TLOC: SPEC #: [id number]: [id number] RECD: 11/30/18-1834 STATUS: BERTRAND DENIS #: [id number] PAOLA: 11/30/18 [facility] DR: Chris Rivera MD ENTERED: 11/30/18 SP TYPE: LUNG OTHR DR: Chito Hanson MD ORDERED: SURG PATH LVL 5/2, FS, AFB/2, GMS/2, TOUCH PREP EA A CODES: [id number] - BRONCHUS OF RIG BIOPSY, NOS [id number] - BRONCHUS OF RIG INFLAMMATION, N [id number] [id number] - BRONCHUS OF RIG GRANULOMATOUS I [id number] T24466 - BRONCHUS OF RIG NECROTIZING GRA J35135 [id number] - BRONCHUS OF RIG NECROSIS, NOS [id number] - BRONCHUS OF RIG DYSPLASIA, NOS [id number] - LUNG, NOS [id number] - BODY TISSUE, NO EMPHYSEMA, NOS [id number] - BODY TISSUE , NO DYSPLASIA, NOS COPIES TO: Chito Hanson MD [address] [place] [address] [address] [place] [address] [email or web address] [place] [address] [place] [address] PROCEDURES: SURG PATH LVL 5 (11/30/18-1835) FS (11/30/18) AFB (-1121) GMS (12/05/18-1121) TOUCH PREP EA A (12/05/18 -1117) TISSUES: A. LUNG, NOS - RUL TISSUE B. LUNG, NOS - RT UPPER LOBE BULLAE CLINICAL HISTORY LUNG LESION CPT CODES CPT CODE(S): [id number] , [id number] , 98442 , 08654N1 , , , CONTINUED ON NEXT PAGE RUN DATE: [facility] PAGE 2 RUN TIME: 1614 Specimen Inquiry RUN USER: INTERFACE SPEC #: [id number] PATIENT: MOISÉS CANNON #[id number] ( Continued) FINAL DIAGNOSIS A. Lung, right upper lobe, wedge biopsy: CASEATING GRANULOMA. FUNGAL ORGANISMS PRESENT. NO DYSPLASIAOR MALIGNANCY IDENTIFIED. B. Lung, right upper lobe, bullae, wedge biopsy: LUNG TISSUE WITH EMPHYSEMATOUS CHANGES. NO DYSPLASIA OR MALIGNANCY IDENTIFIED. 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 / MB GROSS DESCRIPTION A. Right upper lobe. Received is a segment of lung, measuring 8 x 2.3 x 1.5 cm. There is a palpable nodule. The surface surrounding the nodule is inked green. The stapled margin, measuring 7.5 cm in length, is inked blue. Upon sectioning there is a firm molina-anand nodule, measuring 1.6 x 1.5 x 1.3 cm. The nodule is well-circumscribed. Printing Mechanist sections of nodule submitted for frozen section labeled FS1/ TP1 and submitted for permanent section as A1 and the remainder of the nodule submitted entirely as A2-A3 and entire lung tissue is sectioned and submitted as A4-A8. B. Right upper lobe bullae. Received are three pieces of lung tissue with stapled margins. They measure 3.5 x 0.9 x 0.7, 4 x 1 x0.5 and 4 x 1.1 x 0.6 cm. The margins are inked black, green and blue. They are each sectioned, no nodules are grossly identified. They are submitted each as B1-B3. /tc/nr MICROSCOPIC DESCRIPTION A. Right upper lobe. Sections show lung tissue with a large granuloma with necrotic center. Special stain (GMS, with good controls, blocks A2 and A3) shows numerous fungal organisms (yeast forms) within the granuloma. AFB stain (with good controls, blocks A2 and A3) is negative for acid-fast bacilli. Adjacent lung tissue has emphysematous changes. No dysplasia or malignancy is identified. B. Right upper lobe bullae. Sections show fragments of lung tissue with emphysematous changes. Prominent bullae are seen. There is no evidence of dysplasia or malignancy. /paula Signed SIGNATURE ON FILE ZacChris J. 12/05/18 1613 END OF REPORT - XR CHEST [id number] 08:14:00 Patient Name: MOISÉS CANNON Unit No: [id number] EXAMS: CPT CODE: [id number] XR CHEST 1V 72371 Location of dictation: B2 Portable chest one view. HISTORY: S/P R.A. RIGHT LUNG MASS RESECTION COMMENT: Compared to one day prior. A right IJ central line remains in place. The heart is normal and stable in size. There are more pronounced left perihilar and bibasilar infiltrates with persistent elevation of the right diaphragm. No obvious pneumothorax seen however there is subtle lucency adjacent to the left heart border suggesting pneumomediastinum. There is continued worsening of severe subcutaneous emphysema IMPRESSION: 1. Development of bibasilar atelectasis and questionable small pneumomediastinum. 2. Worsening subcutaneous emphysema. at 0814 Reported andsigned by: Neelima Ghosh M.D. CC: Chito Hanson MD Technologist: Maryjane Giles RT(R) Transcrpt Date/Tm/Trnsp: 12/05/2018(813) [email or web address] Orig Print D /T: S: 12/05/2018 (08) [facility] NAME: MOISÉS CANNON [address] PHYS: [place] [address] : 1954 AGE: 63 SEX: F LOC: Z.SI04 A PHONE #: [phone] EXAM DATE: STATUS: ADM IN FAX #: [phone] RADIOLOGY NO: PAGE 1 Signed ReportBASIC METABOLIC [id number] 06:36 :00 Test Item Value Reference Range Comments SODIUM (test code=NA) 134 MMOL/L 137-145 POTASSIUM (test code=K) 4.1 MMOL/L 3.5-5.1 CHLORIDE (test code=CL) 97 MMOL/L 98-107 CARBON DIOXIDE (test code=CO2) 32 MMOL/L 22-30 ANION GAP (test code=GAP) 9 MMOL/L 14-24 GLUCOSE (test code=GLU) 98 MG/DL 74-106 BLOOD UREA NITROGEN (test 15 MG/DL 7-17 code=BUN) GLOMERULAR FILTRATION RATE > 60 Reporting units: ml/min/1.73 (test code=GFR) m2 (Modified MDRD Formula)Reference Range: > or=60 ml/min/1.73 m2 CREATININE (test code=CREAT) 0.50 MG/DL 0.52-1.04 CALCIUM (test code=CA) 9.0 MG/DL 8.4-10.2 [id number] 06:36:00 Test Item Value Reference Range Comments MAGNESIUM (test code=MAG) 1.9 MG/DL 1.6-2.3 CBC W/AUTO [id number] 06:20:00 Test Item Value Reference Range Comments WHITE BLOOD CELL (test code=WBC) 9.3 K/MM3 3.8-9.8 RED BLOOD CELL (test code=RBC) 4.42 M/MM3 3.58-4.97 HEMOGLOBIN (test code=HGB) 12.6 G/DL 11.2-14.9 HEMATOCRIT (test code=HCT) 40.3 % 33.2-43.5 MEAN CELL VOLUME (test code=MCV) 91 fL 80.7-99.1 MEAN CELL HGB (test code=MCH) 28.5 pg 27.0-34.1 MEAN CELL HGB CONCETRATION (test code=MCHC) 31.3 % 32.2-35.7 RED CELL DISTRIBUTION WIDTH (test code=RDW) 14.7 % 12.1-15.2 PLATELET COUNT (test code=PLT) 263 K/MM3 129-368 MEAN PLATELET VOLUME (test code=MPV) 9.6 fl 7.4-10.4 NEUTROPHIL % (test code=NT%) 79.7 % 43-75 IMMATURE GRANULOCYTE % (test code=IG%) 0.4 % 0.0-2.0 LYMPHOCYTE % (test code=LY%) 12.4 % 14-44 MONOCYTE % (test code=MO%) 6.2 % 4-13 EOSINOPHIL % (test code=EO%) 1.2 % 0-6 BASOPHIL % (test code=BA%) 0.1 % 0-2 NUCLEATED RBC % (test code=NRBC%) 0.0 % 0-1.0 NEUTROPHIL # (test code=NT#) 7.42 K/mm3 2.0-7.6 IMMATURE GRANULOCYTE # (test code=IG#) 0.04 x10 3/uL 0-0.03 LYMPHOCYTE # (test code=LY#) 1.16 K/mm3 1.0-3.8 MONOCYTE # (test code=MO#) 0.58 K/mm3 0.1-0.8 EOSINOPHIL # (test code=EO#) 0.11 K/mm3 0.0-0.2 BASOPHIL # (test code=BA#) 0.01 K/mm3 0.0-0.2 NUCLEATED RBC # (test code=NRBC#) 0.00 K/mm3 0.0-0.1 BASIC METABOLIC [id number] 21:07:00 Test Item Value Reference Range Comments SODIUM (test code=NA) 135 MMOL/L 137-145 POTASSIUM (test code=K) 3.8 MMOL/L 3.5-5.1 CHLORIDE (test code=CL) 97 MMOL/L 98-107 CARBON DIOXIDE (test code=CO2) 31 MMOL/L 22-30 ANION GAP (test code=GAP) 11 MMOL/L 14-24 GLUCOSE (test code=GLU) 105 MG/DL 74-106 BLOOD UREA NITROGEN (test 13 MG/DL 7-17 code=BUN) GLOMERULAR FILTRATION RATE > 60 Reporting units: ml/min/1.73 (test code=GFR) m2 (Modified MDRD Formula)Reference Range: > or=60 ml/min/1.73 m2 CREATININE (test code=CREAT) 0.50 MG/DL 0.52-1.04 CALCIUM (test code=CA) 9.0 MG/DL 8.4-10.2 [id number] 21:07:00 Test Item Value Reference Range Comments MAGNESIUM (test code=MAG) 1.8 MG/DL 1.6-2.3 ARTERIAL BLOOD [id number] 20:51:00 Test Item Value Reference Range Comments ARTERIAL BLOOD GAS PH (test 7.46 mmHg 7.35-7.45 code=PHA) ARTERIAL BLOOD GAS PCO2 (test 41.7 mmHg 35.0-45.0 code=PCO2A) ARTERIAL BLOOD GAS PO2 (test 67.8 mmol/L 80.0-100.0 code=PO2A) BICARBONATE TOTAL HCO3 (test 28.7 mmol/L 20.0-26.0 code=HCO3) BASE EXCESS (test code=ERICA) 4.3 mmol/L -3.0-3.0 ABG O2 SATURATION (test 94.3 % 95.0-100.0 All critical values report code=SATA) to and readback by Dr. Barbara Monk by RODGER at 12/04/2018 8:50:22 PM ABG L/M (test code=L/M) 4 L/MIN ABG DELIVERY (test code=MARCUS) N/C ABG TEMPERATURE (test 37.0 C >37 code=TEMPA) ABG SITE (test code=SITEA) LR ALLENS TEST (test code=ALLENS) Y CHECK FIO2 (test code=COHBGFFIO2) 36 % GLUCOSE BEDSIDE [id number] 14:59:00 Test Item Value Reference Range Comments GLUCOSE BEDSIDE TEST NOT PERFORMED 60-99 Previously reported TESTING (test MG/DL result: 55 MG/DLEdited code=GLUBED) by: MAO.TQL on 12/04/18:74022312/04/18 1457: GLU BED previously reported as: 55 L MG/DL GLUCOSE BEDSIDE [id number] 13:35:00 Test Item Value Reference Range Comments GLUCOSE BEDSIDE TESTING (test code=GLUBED) 55 MG/DL 60-99 CALCIUM [id number] 12:44:00 Test Item Value Reference Range Comments CALCIUM IONIZED (test code=BABAK) 1.11 MMOL/L 1.12-1.30 PROTHROMBIN [id number] 10:01:00 Test Item Value Reference Range Comments PROTHROMBIN TIME PATIENT (test 9.9 SECONDS 9.6-11.6 code=PTP) INTERNATIONAL NORMAL RATIO 0.9 0.8-1.1 The INR is to be used only (test code=INR) for monitoring oral anticoagulanttherapy. INDICATION INR VALUE 1. Prophylaxis, deep venous thrombosis, including high risk surgery. 2.0 - 3.0 2. Prophylaxis, deep venous thrombosis, hip surgery, treatment for deep venous thrombosis or pulmonary prevention of systemic embolism in patients with valvular heart disease, atrial fibrillation, tissue heart valve, or acute myocardial infarction. 2.0 - 3.0 3. Mechanical prosthesis heart valves, recurrent systemic embolism. 3.0 - 4.5 Comments to Byproducts Supervisor: nonePTT [id number] 10:01:00 Test Item Value Reference Range Comments PTT ACTIVATED (test code=APTT) 24.2 SECONDS 22.0-33.0 Comments to Byproducts Supervisor: none- XR CHEST [id number] 09:06:00 Patient Name: MOISÉS CANNON Unit No: [id number] EXAMS: CPT CODE: [id number] XR CHEST 1V 32253 Location of dictation: B2 Portable chest one view. HISTORY: right chest tube, subq emphysema COMMENT: Compared to one day prior. RightIJ central line and right chest tube are again noted. There is progression of extensivesubcutaneous emphysema. The heart is normal in size. No new consolidation, obvious pneumothorax or significant effusion. The right hemidiaphragm remains elevated. IMPRESSION: Worsening subcutaneous emphysema otherwise stable appearance of the chest with right chest tube in place at 0906 Reported and signed by: Neelima Ghosh M.D. CC: Chito Hanson MD; Oumou Stanley NP Technologist: Jo-Ann Hall (RT) Transcrpt Date/Tm/Trnsp: 12/04/2018 (905) [facility] Print D/T: S: (09) [facility] NAME: MOISÉS CANNON [address] PHYS: DONY.[place] [address] : 1955 AGE: 63 SEX: F LOC: Z.SI04 A PHONE #: [phone] EXAM DATE: 12/04/2018 STATUS: ADM IN FAX #: [phone] RADIOLOGY NO: PAGE 1 Signed ReportBASIC METABOLIC [id number] 07:35:00 Test Item Value Reference Range Comments SODIUM (test code=NA) 135 MMOL/L 137-145 POTASSIUM (test code=K) 4.2 MMOL/L 3.5-5.1 CHLORIDE (test code=CL) 98 MMOL/L 98-107 CARBON DIOXIDE (test code=CO2) 32 MMOL/L 22-30 GLUCOSE (test code=GLU) 102 MG/DL 74-106 BLOOD UREA NITROGEN (test 13 MG/DL 7-17 code=BUN) GLOMERULAR FILTRATION RATE > 60 Reporting units: ml/min/1.73 (test code=GFR) m2 (Modified MDRD Formula)Reference Range: > or=60 ml/min/1.73 m2 CREATININE (test code=CREAT) 0.60 MG/DL 0.52-1.04 CALCIUM (test code=CA) 9.1 MG/DL 8.4-10.2 [id number] 07:35:00 Test Item Value Reference Range Comments PHOSPHOROUS (test code=PHOS) 3.7 MG/DL 2.5-4.5 [id number] 07:35:00 Test Item Value Reference Range Comments MAGNESIUM (test code=MAG) 1.9 MG/DL 1.6-2.3 CBC W/AUTO [id number] 07:25:00 Test Item Value Reference Range Comments WHITE BLOOD CELL (test code=WBC) 7.9 K/MM3 3.8-9.8 RED BLOOD CELL (test code=RBC) 4.20 M/MM3 3.58-4.97 HEMOGLOBIN (test code=HGB) 12.0 G/DL 11.2-14.9 HEMATOCRIT (test code=HCT) 38.9 % 33.2-43.5 MEAN CELL VOLUME (test code=MCV) 93 fL 80.7-99.1 MEAN CELL HGB (test code=MCH) 28.6 pg 27.0-34.1 MEAN CELL HGB CONCETRATION (test code=MCHC) 30.8 % 32.2-35.7 RED CELL DISTRIBUTION WIDTH (test code=RDW) 14.7 % 12.1-15.2 PLATELET COUNT (test code=PLT) 252 K/MM3 129-368 MEAN PLATELET VOLUME (test code=MPV) 9.9 fl 7.4-10.4 NEUTROPHIL % (test code=NT%) 73.7 % 43-75 IMMATURE GRANULOCYTE % (test code=IG%) 0.5 % 0.0-2.0 LYMPHOCYTE % (test code=LY%) 16.7 % 14-44 MONOCYTE % (test code=MO%) 7.7 % 4-13 EOSINOPHIL % (test code=EO%) 1.1 % 0-6 BASOPHIL % (test code=BA%) 0.3 % 0-2 NUCLEATED RBC % (test code=NRBC%) 0.0 % 0-1.0 NEUTROPHIL # (test code=NT#) 5.81 K/mm3 2.0-7.6 IMMATURE GRANULOCYTE # (test code=IG#) 0.04 x10 3/uL 0-0.03 LYMPHOCYTE # (test code=LY#) 1.32 K/mm3 1.0-3.8 MONOCYTE # (test code=MO#) 0.61 K/mm3 0.1-0.8 EOSINOPHIL # (test code=EO#) 0.09 K/mm3 0.0-0.2 BASOPHIL # (test code=BA#) 0.02 K/mm3 0.0-0.2 NUCLEATED RBC # (test code=NRBC#) 0.00 K/mm3 0.0-0.1 - XR CHEST [id number] 18:47:00 Patient Name: MOISÉS CANNON Unit No: [id number] EXAMS: CPT CODE: [id number] XR CHEST 1V 18103 EXAM: Portable chest one view. Location code:J9 HISTORY: Pneumothorax COMPARISON: 12/03/2018 Findings : Stable position of right-sided chest tube and right-sided IJ catheter. Stable mild right pneumothorax. Extensive interval development of thoracic and neck soft tissue emphysematous changes. No focal consolidation or large pleural effusion. The bones are intact. The cardiac silhouette is normal in size. IMPRESSION: Stable right pneumothorax status post placement of right-sided chest tube. Interval development of extensive soft tissue emphysematous changes. at 1847 Reported and signed by: Kraig Elizabeth M.D. CC: Chito Hanson MD;Oumou Stanley NP Technologist: Soumya Chapa RT( R) Transcrpt Date/Tm/Trnsp: 12/03/2018 ( 1846) [email or web address] Orig Print D/T: S: 12/03/2018 (1849) [facility] NAME: MOISÉS CANNON [id number] PHYS: [place] [address] : 1955 AGE: 63 SEX: F LOC: [id number] PHONE #: [phone] EXAM DATE: 12/03/2018 STATUS: ADM IN FAX #:[phone] RADIOLOGY NO: PAGE 1 Signed Report- XR CHEST [id number] 07:46:00 Patient Name: MOISÉS CANNON Unit No: [id number] EXAMS: CPT CODE: [id number] XR CHEST 1V 30257 Location of dictation: B2 Portable chest one view. HISTORY: Post Op Thoracotomy COMMENT: Compared to one day prior. A right IJ centralline and chest tube are again noted. Postsurgical changes of partial lobectomy again noted with slight improved aeration of the right lung. There is now small fluid or thickening ofthe right interlobar fissure and slightly more pronounced perihilar infiltrates. No lobar consolidation, pneumothorax or effusion seen. Visualized soft tissues and skeletal structures are unremarkable. IMPRESSION: 1. More pronounced perihilar infiltrates with fluid and/or thickening of the right interlobar fissure. 2. Status post partial right lobectomy. No pneumothorax with right chest tube in place. at 0746 Reported and signed by: Neelima Ghosh M.D. CC: Chito Hanson MD Technologist: RT Luc(R) Transcrpt Date/Tm/Trnsp: 12/03/2018 (0746) [email or web address] Orig Print D/T: S: 12/03/2018 (0749) [facility] NAME: MOISÉS CANNON [id number] PHYS: [place] [address] : 1955 AGE: 63 SEX: F LOC: [id number].[email or web address] A PHONE #: [phone] EXAM DATE: 12/03 STATUS: ADM IN FAX #: [phone] RADIOLOGY NO: PAGE 1 Signed ReportBASIC METABOLIC [id number] 04:54:00 Test Item Value Reference Range Comments SODIUM (test code=NA) 137 MMOL/L 137-145 POTASSIUM (test code=K) 4.5 MMOL/L 3.5-5.1 CHLORIDE (test code=CL) 101 MMOL/L 98-107 CARBON DIOXIDE (test code=CO2) 32 MMOL/L 22-30 ANION GAP (test code=GAP) 9 MMOL/L 14-24 GLUCOSE (test code=GLU) 91 MG/DL 74-106 BLOOD UREA NITROGEN (test 14 MG/DL 7-17 code=BUN) GLOMERULAR FILTRATION RATE > 60 Reporting units: ml/min/1.73 (test code=GFR) m2 (Modified MDRD Formula)Reference Range: > or=60 ml/min/1.73 m2 CREATININE (test code=CREAT) 0.60 MG/DL 0.52-1.04 CALCIUM (test code=CA) 8.8 MG/DL 8.4-10.2 [id number] 04:54:00 Test Item Value Reference Range Comments MAGNESIUM (test code=MAG) 2.0 MG/DL 1.6-2.3 CBC W/AUTO [id number] 04:29:00 Test Item Value Reference Range Comments WHITE BLOOD CELL (test code=WBC) 8.8 K/MM3 3.8-9.8 RED BLOOD CELL (test code=RBC) 3.62 M/MM3 3.58-4.97 HEMOGLOBIN (test code=HGB) 10.4 G/DL 11.2-14.9 HEMATOCRIT (test code=HCT) 34.0 % 33.2-43.5 MEAN CELL VOLUME (test code=MCV) 94 fL 80.7-99.1 MEAN CELL HGB (test code=MCH) 28.7 pg 27.0-34.1 MEAN CELL HGB CONCETRATION (test code=MCHC) 30.6 % 32.2-35.7 RED CELL DISTRIBUTION WIDTH (test code=RDW) 14.6 % 12.1-15.2 PLATELET COUNT (test code=PLT) 205 K/MM3 129-368 MEAN PLATELET VOLUME (test code=MPV) 9.4 fl 7.4-10.4 NEUTROPHIL % (test code=NT%) 68.9 % 43-75 IMMATURE GRANULOCYTE % (test code=IG%) 0.5 % 0.0-2.0 LYMPHOCYTE % (test code=LY%) 16.4 % 14-44 MONOCYTE % (test code=MO%) 11.2 % 4-13 EOSINOPHIL % (test code=EO%) 2.4 % 0-6 BASOPHIL % (test code=BA%) 0.6 % 0-2 NUCLEATED RBC % (test code=NRBC%) 0.0 % 0-1.0 NEUTROPHIL # (test code=NT#) 6.10 K/mm3 2.0-7.6 IMMATURE GRANULOCYTE # (test code=IG#) 0.04 x10 3/uL 0-0.03 LYMPHOCYTE # (test code=LY#) 1.45 K/mm3 1.0-3.8 MONOCYTE # (test code=MO#) 0.99 K/mm3 0.1-0.8 EOSINOPHIL # (test code=EO#) 0.21 K/mm3 0.0-0.2 BASOPHIL # (test code=BA#) 0.05 K/mm3 0.0-0.2 NUCLEATED RBC # (test code=NRBC#) 0.00 K/mm3 0.0-0.1 - XR CHEST [id number] 06:22:00 Patient Name: MOISÉS CANNON Unit No: [id number] EXAMS: CPT CODE: [id number] XR CHEST 1V 20001 AP VIEW OF THE CHEST LOCATION: R16 CLINICAL HISTORY: Postop thoracotomy. COMPARISON: Chest radiograph 12/01/2018. FINDINGS: Compared to patient's previous exam dated 12/01/2018, there has been no significant interval change. The cardiomediastinal shadow is within normal limits. Atherosclerotic calcifications are noted in the aorta. Postoperative changes are noted in the right thorax. The right central venous catheter and the right thoracostomy tube are stable. The left lung is clear. No pleural fluids. Degenerative bony changes and right humeral head suture anchors are noted. No acute bony abnormality is found. IMPRESSION : No significant interval change since 12/01/2018. at 0622 Reported and signed by: Svetlana Ham MD CC: Chito Hanson MD Technologist: Jericho Bates , RT(R) Transcrpt Date/Tm/Trnsp: 12/02/2018 (0622) t.SDR.JSL Orig Print D/T: S: 12/02/2018 (0644) [facility] NAME: MOISÉS CANNON [address] PHYS: [place] [address] : 1955 AGE: 63 SEX: F LOC: Z.SI04 A PHONE #: [phone] EXAM DATE: 12/02/2018 STATUS:ADM IN FAX #: [phone] RADIOLOGY NO: PAGE 1 Signed ReportBASIC METABOLIC [id number] 05:59:00 Test Item Value Reference Range Comments SODIUM (test code=NA) 139 MMOL/L 137-145 POTASSIUM (test code=K) 5.1 MMOL/L 3.5-5.1 CHLORIDE (test code=CL) 106 MMOL/L 98-107 CARBON DIOXIDE (test code=CO2) 31 MMOL/L 22-30 GLUCOSE (test code=GLU) 97 MG/DL 74-106 BLOOD UREA NITROGEN (test 16 MG/DL 7-17 code=BUN) GLOMERULAR FILTRATION RATE > 60 Reporting units: ml/min/1.73 (test code=GFR) m2 (Modified MDRD Formula)Reference Range: > or=60 ml/min/1.73 m2 CREATININE (test code=CREAT) 0.70 MG/DL 0.52-1.04 CALCIUM (test code=CA) 8.4 MG/DL 8.4-10.2 [id number] 05:59:00 Test Item Value Reference Range Comments MAGNESIUM (test code=MAG) 2.1 MG/DL 1.6-2.3 CBC W/AUTO [id number] 05:53:00 Test Item Value Reference Range Comments WHITE BLOOD CELL (test code=WBC) 10.6 K/MM3 3.8-9.8 RED BLOOD CELL (test code=RBC) 3.63 M/MM3 3.58-4.97 HEMOGLOBIN (test code=HGB) 10.6 G/DL 11.2-14.9 HEMATOCRIT (test code=HCT) 34.2 % 33.2-43.5 MEAN CELL VOLUME (test code=MCV) 94 fL 80.7-99.1 MEAN CELL HGB (test code=MCH) 29.2 pg 27.0-34.1 MEAN CELL HGB CONCETRATION (test code=MCHC) 31.0 % 32.2-35.7 RED CELL DISTRIBUTION WIDTH (test code=RDW) 14.7 % 12.1-15.2 PLATELET COUNT (test code=PLT) 225 K/MM3 129-368 MEAN PLATELET VOLUME (test code=MPV) 9.7 fl 7.4-10.4 NEUTROPHIL % (test code=NT%) 74.8 % 43-75 IMMATURE GRANULOCYTE % (test code=IG%) 0.6 % 0.0-2.0 LYMPHOCYTE % (test code=LY%) 13.4 % 14-44 MONOCYTE % (test code=MO%) 9.9 % 4-13 EOSINOPHIL % (test code=EO%) 0.9 % 0-6 BASOPHIL % (test code=BA%) 0.4 % 0-2 NUCLEATED RBC % (test code=NRBC%) 0.0 % 0-1.0 NEUTROPHIL # (test code=NT#) 7.91 K/mm3 2.0-7.6 IMMATURE GRANULOCYTE # (test code=IG#) 0.06 x10 3/uL 0-0.03 LYMPHOCYTE # (test code=LY#) 1.42 K/mm3 1.0-3.8 MONOCYTE # (test code=MO#) 1.05 K/mm3 0.1-0.8 EOSINOPHIL # (test code=EO#) 0.09 K/mm3 0.0-0.2 BASOPHIL # (test code=BA#) 0.04 K/mm3 0.0-0.2 NUCLEATED RBC # (test code=NRBC#) 0.00 K/mm3 0.0-0.1 [id number] 21:37:00 Test Item Value Reference Range Comments POTASSIUM (test code=K) 3.2 MMOL/L 3.5-5.1 Is this a LINE draw? YBASIC METABOLIC [id number] 07:40:00 Test Item Value Reference Range Comments SODIUM (test code=NA) 137 MMOL/L 137-145 POTASSIUM (test code=K) 4.1 MMOL/L 3.5-5.1 CHLORIDE (test code=CL) 104 MMOL/L 98-107 CARBON DIOXIDE (test code=CO2) 25 MMOL/L 22-30 GLUCOSE (test code=GLU) 143 MG/DL 74-106 BLOOD UREA NITROGEN (test 16 MG/DL 7-17 code=BUN) GLOMERULAR FILTRATION RATE > 60 Reporting units: ml/min/1.73 (test code=GFR) m2 (Modified MDRD Formula)Reference Range: > or=60 ml/min/1.73 m2 CREATININE (test code=CREAT) 0.60 MG/DL 0.52-1.04 CALCIUM (test code=CA) 8.4 MG/DL 8.4-10.2 [id number] 07:40:00 Test Item Value Reference Range Comments MAGNESIUM (test code=MAG) 1.9 MG/DL 1.6-2.3 CBC W/AUTO [id number] 07:27:00 Test Item Value Reference Range Comments WHITE BLOOD CELL (test code=WBC) 12.4 K/MM3 3.8-9.8 RED BLOOD CELL (test code=RBC) 4.06 M/MM3 3.58-4.97 HEMOGLOBIN (test code=HGB) 11.6 G/DL 11.2-14.9 HEMATOCRIT (test code=HCT) 38.1 % 33.2-43.5 MEAN CELL VOLUME (test code=MCV) 94 fL 80.7-99.1 MEAN CELL HGB (test code=MCH) 28.6 pg 27.0-34.1 MEAN CELL HGB CONCETRATION (test code=MCHC) 30.4 % 32.2-35.7 RED CELL DISTRIBUTION WIDTH (test code=RDW) 14.3 % 12.1-15.2 PLATELET COUNT (test code=PLT) 212 K/MM3 129-368 MEAN PLATELET VOLUME (test code=MPV) 9.9 fl 7.4-10.4 NEUTROPHIL % (test code=NT%) 92.7 % 43-75 IMMATURE GRANULOCYTE % (test code=IG%) 0.5 % 0.0-2.0 LYMPHOCYTE % (test code=LY%) 3.1 % 14-44 MONOCYTE % (test code=MO%) 3.6 % 4-13 EOSINOPHIL % (test code=EO%) 0.0 % 0-6 BASOPHIL % (test code=BA%) 0.1 % 0-2 NUCLEATED RBC % (test code=NRBC%) 0.0 % 0-1.0 NEUTROPHIL # (test code=NT#) 11.50 K/mm3 2.0-7.6 IMMATURE GRANULOCYTE # (test code=IG#) 0.06 x10 3/uL 0-0.03 LYMPHOCYTE # (test code=LY#) 0.38 K/mm3 1.0-3.8 MONOCYTE # (test code=MO#) 0.44 K/mm3 0.1-0.8 EOSINOPHIL # (test code=EO#) 0.00 K/mm3 0.0-0.2 BASOPHIL # (test code=BA#) 0.01 K/mm3 0.0-0.2 NUCLEATED RBC # (test code=NRBC#) 0.00 K/mm3 0.0-0.1 - XR CHEST [id number] 06:27:00 Patient Name: MOISÉS CANNON Unit No: [id number] EXAMS: CPT CODE: [id number] XR CHEST 1V 29672 Exam: Chest portable erect Location: F6 History: Post Op Thoracotomy Comparison: 11/30/2018 Findings : No change has occurred in the aeration of the lungs. The heart size is unchanged. The mediastinal silhouette is unremarkable. The bony thorax is intact. The right chest tube and right IJ line remain in place. Impression: Stable chest/no change. at 06 Reported and signed by: Shola Duran M.D. CC: Chito Hanson MD Technologist: Jericho Bates, RT(R) Transcrpt Date/Tm/Trnsp: 12/01/2018 (626) t.DEBBI.FC Orig Print D/T: S: 12/01/2018 (629) [facility] NAME: MOISÉS CANNON [id number] PHYS: [place] [address] : 1955 AGE: 63 SEX: F LOC: Z.SI04 A PHONE #: [phone] EXAM DATE: 12/01/2018 STATUS: ADM IN FAX #: [phone] RADIOLOGY NO: PAGE 1 Signed ReportBASIC METABOLIC [id number] 20:46:00 Test Item Value Reference Range Comments SODIUM (test code=NA) 138 MMOL/L 137-145 POTASSIUM (test code=K) 4.5 MMOL/L 3.5-5.1 CHLORIDE (test code=CL) 105 MMOL/L 98-107 CARBON DIOXIDE (test code=CO2) 26 MMOL/L 22-30 ANION GAP (test code=GAP) 12 MMOL/L 14-24 GLUCOSE (test code=GLU) 147 MG/DL 74-106 BLOOD UREA NITROGEN (test 14 MG/DL 7-17 code=BUN) GLOMERULAR FILTRATION RATE > 60 Reporting units: ml/min/1.73 (test code=GFR) m2 (Modified MDRD Formula)Reference Range: > or=60 ml/min/1.73 m2 CREATININE (test code=CREAT) 0.50 MG/DL 0.52-1.04 CALCIUM (test code=CA) 8.8 MG/DL 8.4-10.2 [id number] 20:46:00 Test Item Value Reference Range Comments MAGNESIUM (test code=MAG) 1.9 MG/DL 1.6-2.3 BASIC METABOLIC [id number] 20:42:00 Test Item Value Reference Range Comments SODIUM (test code=NA) 138 MMOL/L 137-145 POTASSIUM (test code=K) MMOL/L 3.5-5.1 CHLORIDE (test code=CL) 105 MMOL/L 98-107 CARBON DIOXIDE (test code=CO2) 26 MMOL/L 22-30 GLUCOSE (test code=GLU) 147 MG/DL 74-106 BLOOD UREA NITROGEN (test 14 MG/DL 17 code=BUN) GLOMERULAR FILTRATION RATE > 60 Reporting units: ml/min/1.73 (test code=GFR) m2 (Modified MDRD Formula)Reference Range: > or=60 ml/min/1.73 m2 CREATININE (test code=CREAT) 0.50 MG/DL 0.52-1.04 CALCIUM (test code=CA) 8.8 MG/DL 8.4-10.2 [id number] 20:42:00 Test Item Value Reference Range Comments MAGNESIUM (test code=MAG) 1.9 MG/DL 1.6-2.3 CBC W/AUTO [id number] 20:04:00 Test Item Value Reference Range Comments WHITE BLOOD CELL (test code=WBC) 12.5 K/MM3 3.8-9.8 RED BLOOD CELL (test code=RBC) 4.30 M/MM3 3.58-4.97 HEMOGLOBIN (test code=HGB) 12.5 G/DL 11.2-14.9 HEMATOCRIT (test code=HCT) 39.7 % 33.2-43.5 MEAN CELL VOLUME (test code=MCV) 92 fL 80.7-99.1 MEAN CELL HGB (test code=MCH) 29.1 pg 27.0-34.1 MEAN CELL HGB CONCETRATION (test code=MCHC) 31.5 % 32.2-35.7 RED CELL DISTRIBUTION WIDTH (test code=RDW) 14.2 % 12.1-15.2 PLATELET COUNT (test code=PLT) 246 K/MM3 129-368 MEAN PLATELET VOLUME (test code=MPV) 9.6 fl 7.4-10.4 NEUTROPHIL % (test code=NT%) 82.7 % 43-75 IMMATURE GRANULOCYTE % (test code=IG%) 1.0 % 0.0-2.0 LYMPHOCYTE % (test code=LY%) 13.6 % 14-44 MONOCYTE % (test code=MO%) 1.8 % 4-13 EOSINOPHIL % (test code=EO%) 0.4 % 0-6 BASOPHIL % (test code=BA%) 0.5 % 0-2 NUCLEATED RBC % (test code=NRBC%) 0.0 % 0-1.0 NEUTROPHIL # (test code=NT#) 10.37 K/mm3 2.0-7.6 IMMATURE GRANULOCYTE # (test code=IG#) 0.12 x10 3/uL 0-0.03 LYMPHOCYTE # (test code=LY#) 1.70 K/mm3 1.0-3.8 MONOCYTE # (test code=MO#) 0.22 K/mm3 0.1-0.8 EOSINOPHIL # (test code=EO#) 0.05 K/mm3 0.0-0.2 BASOPHIL # (test code=BA#) 0.06 K/mm3 0.0-0.2 NUCLEATED RBC # (test code=NRBC#) 0.00 K/mm3 0.0-0.1 ARTERIAL BLOOD [id number] 19:53:00 Test Item Value Reference Range Comments ARTERIAL BLOOD GAS PH (test 7.22 mmHg 7.35-7.45 code=PHA) ARTERIAL BLOOD GAS PCO2 (test 48.2 mmHg 35.0-45.0 code=PCO2A) ARTERIAL BLOOD GAS PO2 (test 96.3 mmol/L 80.0-100.0 code=PO2A) BICARBONATE TOTAL HCO3 (test 19.2 mmol/L 20.0-26.0 code=HCO3) BASE EXCESS (test code=ERICA) -8.7 mmol/L -3.0-3.0 ABG O2 SATURATION (test 95.9 % 95.0-100.0 All critical values report code=SATA) to and readback by ZAYRA NOEL & COU by JYOTHIPAULA at 11/30/2018 7:53:09 PM ABG L/M (test code=L/M) 15 L/MIN ABG DELIVERY (test code=MARCUS) NRBMASK ABG TEMPERATURE (test 37.0 C >37 code=TEMPA) ABG SITE (test code=SITEA) AL ALLENS TEST (test code=ALLENS) NA CHECK FIO2 (test code=COHBGFFIO2) 100 % - XR CHEST [id number] 19:38:00 Patient Name: MOISÉS CANNON Unit No: [id number] EXAMS: CPT CODE: [id number] XR CHEST 1V 40000 EXAM: CHEST ONE VIEW INDICATION: Post Op Thoracotomy COMPARISON: November 28, 2018 TECHNIQUE: AP view of the chest FINDINGS: The right central venous catheter tip overlies the SVC. The heart size is mildly enlarged. There are diffuse congestive changes bilaterally. There is a right-sided chest tube seen in place. There are postsurgical changes involving the right lung. No pneumothorax or pleural effusion is identified. The osseous structures are normal. IMPRESSION: Mild cardiomegaly with mild congestive changes bilaterally. No pneumothorax is identified. LOCATION: B2 [id number] Reported and signed by: Mahi Campa MD CC: Chito Hanson MD Technologist: Jo-Ann Hall (RT) Transcrpt Date/Tm/Trnsp: 11/30/2018 (1937) 16 Orig Print D/T: S: 11/30/2018 (1940) [facility] NAME: MOISÉS CANNON [address] PHYS: [place] [address] : 1955 AGE: 63 SEX: F LOC: ZCourtneyDSU PHONE #: [phone] EXAM DATE: 11/30/2018 STATUS: REG [facility] [place] FAX #: [phone] RADIOLOGY NO: PAGE 1 Signed ReportHIV 12 AB [id number] 17:53:00 Test Item Value Reference Range Comments AB HIV 1 2 (test NON REACTIVE NON-REAC NOTE: A NONREACTIVE RESULT code=TON24UR) INDICATES THAT HIV-1 AND HIV-2ANTIBODIES HAVE NOT BEEN FOUND IN THIS PATIENT SPECIMEN. ANON-REACTIVE RESULT, HOWEVER, DOES NOT PRECLUDE PREVIOUSEXPOSURE OR INFECTION WITH HIV1. AG HIV1 P24 (test NON REACTIVE NONE REAC code=PSD9E29) PROTHROMBIN [id number] 15:49:00 Test Item Value Reference Range Comments PROTHROMBIN TIME PATIENT (test 9.7 SECONDS 9.6-11.6 code=PTP) INTERNATIONAL NORMAL RATIO 0.9 0.8-1.1 The INR is to be used only (test code=INR) for monitoring oral anticoagulanttherapy. INDICATION INR VALUE 1. Prophylaxis, deep venous thrombosis, including high risk surgery. 2.0 - 3.0 2. Prophylaxis, deep venous thrombosis, hip surgery, treatment for deep venous thrombosis or pulmonary prevention of systemic embolism in patients with valvular heart disease, atrial fibrillation, tissue heart valve, or acute myocardial infarction. 2.0 - 3.0 3. Mechanical prosthesis heart valves, recurrent systemic embolism. 3.0 - 4.5 PTT [id number] 15:49:00 Test Item Value Reference Range Comments PTT ACTIVATED (test code=APTT) 23.4 SECONDS 22.0-33.0 - XR CHEST 2 [id number] 15:47:00 Patient Name: MOISÉS CANNON Unit No: [id number] EXAMS: CPT CODE: [id number] XR CHEST 2 V 84543 EXAM: CHEST 2 VIEWS INDICATION: PRE-OP COMPARISON: CT dated November 06, 2018 TECHNIQUE: PA and lateral views of the chest. FINDINGS: The heart size is normal. The lungs are clear bilaterally. The pulmonary vasculature is normal. No pneumothorax or pleural effusion is identified. The osseous structures are normal. IMPRESSION: No acute cardiopulmonary process. LOCATION: B2 at 1547 * * Reported and signed by: Mahi Campa MD CC: Chito Hanson MD Technologist: [facility] STUDENT ; Christian Villavicencio, RT(R) Transcrpt Date/Tm/Trnsp: 11/28/2018 ( 5747) 16 Orig Print D/T: S: 11/28/2018 (0821) [facility] NAME: MOISÉS CANNON[address] PHYS: [place] [address] : 1955 AGE: 63 SEX: F LOC: Z.5MU PHONE #: [phone] EXAM DATE: 11/28/2018 STATUS: PRE IN FAX #: [phone] RADIOLOGY NO: PAGE 1 Signed ReportBASIC METABOLIC [id number] 15:42:00 Test Item Value Reference Range Comments SODIUM (test code=NA) 138 MMOL/L 137-145 POTASSIUM (test code=K) 4.0 MMOL/L 3.5-5.1 CHLORIDE (test code=CL) 107 MMOL/L 98-107 CARBON DIOXIDE (test code=CO2) 24 MMOL/L 22-30 ANION GAP (test code=GAP) 11 MMOL/L 14-24 GLUCOSE (test code=GLU) 115 MG/DL 74-106 BLOOD UREA NITROGEN (test 16 MG/DL 7-17 code=BUN) GLOMERULAR FILTRATION RATE > 60 Reporting units: ml/min/1.73 (test code=GFR) m2 (Modified MDRD Formula)Reference Range: > or=60 ml/min/1.73 m2 CREATININE (test code=CREAT) 0.70 MG/DL 0.52-1.04 CALCIUM (test code=CA) 9.2 MG/DL 8.4-10.2 CBC W/AUTO [id number] 15:32:00 Test Item Value Reference Range Comments WHITE BLOOD CELL (test code=WBC) 9.3 K/MM3 3.8-9.8 RED BLOOD CELL (test code=RBC) 4.54 M/MM3 3.58-4.97 HEMOGLOBIN (test code=HGB) 13.1 G/DL 11.2-14.9 HEMATOCRIT (test code=HCT) 41.3 % 33.2-43.5 MEAN CELL VOLUME (test code=MCV) 91 fL 80.7-99.1 MEAN CELL HGB (test code=MCH) 28.9 pg 27.0-34.1 MEAN CELL HGB CONCETRATION (test code=MCHC) 31.7 % 32.2-35.7 RED CELL DISTRIBUTION WIDTH (test code=RDW) 14.1 % 12.1-15.2 PLATELET COUNT (test code=PLT) 253 K/MM3 129-368 MEAN PLATELET VOLUME (test code=MPV) 9.0 fl 7.4-10.4 NEUTROPHIL % (test code=NT%) 67.8 % 43-75 IMMATURE GRANULOCYTE % (test code=IG%) 0.6 % 0.0-2.0 LYMPHOCYTE % (test code=LY%) 20.8 % 14-44 MONOCYTE % (test code=MO%) 8.7 % 4-13 EOSINOPHIL % (test code=EO%) 1.3 % 0-6 BASOPHIL % (test code=BA%) 0.8 % 0-2 NUCLEATED RBC % (test code=NRBC%) 0.0 % 0-1.0 NEUTROPHIL # (test code=NT#) 6.30 K/mm3 2.0-7.6 IMMATURE GRANULOCYTE # (test code=IG#) 0.06 x10 3/uL 0-0.03 LYMPHOCYTE # (test code=LY#) 1.93 K/mm3 1.0-3.8 MONOCYTE # (test code=MO#) 0.81 K/mm3 0.1-0.8 EOSINOPHIL # (test code=EO#) 0.12 K/mm3 0.0-0.2 BASOPHIL # (test code=BA#) 0.07 K/mm3 0.0-0.2 NUCLEATED RBC # (test code=NRBC#) 0.00 K/mm3 0.0-0.1 - CTA ABD PEL W [id number] 10:28:00 Patient Name: MOISÉS CANNON Unit No: [id number] Report Has Been Amended EXAMS: CPT CODE: [id number] CTA ABD PEL W CONT 90062 Addendum - 11/15/2018 SIGNED 11/15/2018 ADDENDUM: [id number] CT/CTAAPWCONTAddendum: 3-D/MIP reconstructions of the central arteries were created. Electronically Signed by Paul Simmons on 03/2019 at 1028 Reported and signed by: Chris Simmons M.D. Transcribed: 11/15/2018 (1028) Marlena.RB24 Report CTA Abdomen and Pelvis with and without contrast. Location: B2 Clinical indication: 63-year-old with endoleak following aneurysm repair Comparison: November 25, 2015 CT Technique: Computed axial images were obtained from the diaphragms through the pubic symphysis both before and after the IV administration of 100 mL Isovue-370. Up to date CT equipment and radiation dose technique were utilized. Up-to-date CT equipment and radiation dose reduction technique were utilized. Findings: Abdomen: There has been prior stent graft repair of an aortic aneurysm. An aortobiiliac stent graft is present. The excluded sac measures up to 4.5 x 3.6 cm. There is enhancement within the sac which is likely the result of retrograde flow within a lumbar artery, a type II endoleak. There is some crescentic thrombus within the stent graft, not flow-limiting. 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 Flow is preserved within the common hepatic, splenic, and left gastric arteries. Superior mesenteric artery is patent. Bilateral main renal arteries are patent. The inferior mesenteric artery is occluded as a result of the abdominal aortic aneurysm. Mild scarring and/or atelectasis of the lung bases. The liver, gallbladder, spleen, adrenal glands, and pancreas are without acute abnormality. 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 There is bilateral renal cortical thinning. Small superficial cysts are present, largest 9 mm on the left. No bowel obstruction. Pelvis: The iliac limbs of the aortoiliac stent graft are patent. [facility] NAME: MOISÉS CANNON [address] PHYS: [place] [address] : 1955 AGE:63 SEX: F LOC: Z.CTS PHONE #: [phone] EXAM DATE: 11/06/2018 STATUS: DEP CLI FAX #: [phone] RAD #: D/C DT PAGE 1 Signed Report (CONTINUED) Patient Name: MOISÉS CANNON Unit No: [id number] Report Has Been Amended * * EXAMS: CPT CODE: [id number] CTA ABD PEL W CONT 51165 < Continued> Bilateral external iliac arteries are patent. Bilateral internal iliac arteries are calcified but patent. 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 Urinary bladder is partially distended. Uterus is been removed. No free pelvic fluid. No acute osseous abnormality. Prior posterior lumbar fusion and laminectomy. Impression: 1. Status post aortobiiliac endoluminal stent graftrepair of an aortic aneurysm. The residual sac measures up to 4.5 cm in diameter. 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 2. 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 3. 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 4. Interval right renal infarct. at 1346 Reported and signed by: Chris Simmons M.D. CC: Radha Hanson MD Technologist: Anam Bill, RT(R); Kalen CTDI: DLP: Trnscrpt: 2018 (1346) t.SDR.RB24 [facility] NAME: MOISÉS CANNON [address] PHYS: [place] [address] : 1955 AGE: 63 SEX: F LOC: Z.JACQUELIN PHONE #: [phone] DATE: 11/06/2018 STATUS: DEP CLI FAX #: [phone] RAD #: D/C DT PAGE 2 Signed Report Patient Name: MOISÉS CANNON Unit No: [id number] Report Has Been Amended EXAMS: CPT CODE: [id number] CTA ABD PEL W CONT 31320 <Continued> Orig Print D/T: S: 11/06/2018 (0489) [facility] NAME: MOISÉS CANNON [id number] PHYS:[place] [address] : 1955 AGE: 63 SEX: F LOC: [facility] PHONE #: [phone] EXAM DATE: 11/06/2018 STATUS: DEP CLI FAX #: [phone] RAD #: D/C DT PAGE 3 Signed ReportBEDSIDE [id number] 14:50:00 Test Item Value Reference Range Comments BEDSIDE CREATININE (test code=CREATBED) 0.6 MG/DL 0.6-1.4 - CT CHEST W/[id number] 14:06:00 Patient Name: MOISÉS CANNON Unit No: [id number] EXAMS: CPT CODE: [id number] CT CHEST W/CONTRAST 11022 EXAM: Chest CT with contrast Location: B2 INDICATION:Lung nodule COMPARISON: Chest x-ray on 12/21/2015 TECHNIQUE: Helical CT of the chest was performed following the administration of 100 mL Isovue-370 IV contrast. 5 mm axial and coronal and sagittal reformatted images were performed. DISCUSSION: Lungs and airways: A 14 mm rounded right upper lobe nodule is identified. This is visible on the vp lab film, but was not evident on the prior chest x-ray on 12/21/2015. This abuts the anterior pleural surface on sagittal image 69 and axial image 372. There is relatively low internal attenuation, approximately 11 Hounsfield units on sagittal image 69. There is moderate to marked emphysema, greater in the upper lobes. No consolidation or pleural effusion is seen. Heart and mediastinum: The thoracic aorta is normal in caliber, withmoderate thoracic chronic atherosclerosis. No thoracic or dissection is seen. Central pulmonary arteries are unremarkable. No cardiomegaly, pericardial effusion, or mediastinal mass is seen. There is a small hiatal hernia. Lymph nodes: No lymphadenopathy. Bones/soft tissues: There is a partially healed left anterior 3rd rib fracture. No acute fracture or evidence of bony neoplastic process is seen. 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 Please refer to the CTA abdomen and pelvis performed concurrently. IMPRESSION: 1. COPD. There is a 14 mm rounded right upper lobe nodule abutting the anterior pleural surface. This is visible on the vp lab film, and was not present on the prior chest x-ray and November 2015. This is suspicious for malignancy. Further evaluation is recommended with short -term CT chest follow-up in 3 months, PET CT, or tissue sampling. 2.Small hiatal hernia. 3. Celiac artery aneurysm and dissection; please refer to the CT abdomen and pelvis performed concurrently. One or more of the following dose reduction techniques were used: Automated exposure control, adjustment of the mA and/or kV according to patient size, and/or utilization of iterative reconstruction technique. [facility] [place] NAME: MOISÉS CANNON [id number] PHYS: Chris Sky MD [place] [id number] : 1955 AGE: 63 SEX: F : [place] PHONE #: [phone] EXAM DATE: 11/06/2018 STATUS: REG CLI FAX #: [phone] RAD #: D/C DT PAGE 1 Signed Report ( CONTINUED) Patient Name: MOISÉS CANNON Unit No: [id number] EXAMS: CPT CODE: [id number] CT CHEST W/CONTRAST 13592 < Continued> DLP: 1708 mGy-cm CTDI: 51 mGy at 1406 Reported and signed by: Jake Menchaca MD CC: Chito Hanson MD Technologist: Anam Bill, RT(R); Kalen CTDI: DLP: Trnscrpt: 11/06/2018 ( 1406) t.[email or web address] [facility] [place] NAME: MOISÉS CANNON [id number] [facility] [place] [address] : 1955 AGE: 63 SEX: F LOC: [place] PHONE #: [phone] EXAM DATE: 11/06/2018 STATUS: REG CLI FAX #: [phone] RAD #: D/C DT PAGE 2 Signed Report Patient Name: MOISÉS CANNON Unit No: [id number] EXAMS: CPT CODE: [id number] CT CHEST W/CONTRAST 99965 <Continued> Orig Print D/T: S: 11/06/2018 (2436) [facility] NAME : MOISÉS CANNON [id number] PHYS: [place] [address] : 1954 AGE: 63 SEX: F LOC: Z.CTS PHONE #: [phone] EXAM DATE: 11/06/2018 STATUS: REG CLI FAX #: [phone] RAD #: D/C DT PAGE 3 Signed Report- CTA ABD PEL W [id number] 13:46:00 Patient Name: MOISÉS CANNON Unit No: [id number] EXAMS: CPT CODE: [id number] CTA ABD PEL W CONT 89135 CTA Abdomen and Pelvis with and without contrast. Location: B2 Clinical indication: 63-year-old with endoleak following aneurysm repair Comparison: November 25, 2015 CT Technique: Computed axial images were obtained from thediaphragms through the pubic symphysis both before and after the IV administration of 100 mL Isovue-370. Up to date CT equipment and radiation dose technique were utilized. Up-to-date CT equipment and radiation dose reduction technique were utilized. Findings: Abdomen: There has been prior stent graft repair of an aortic aneurysm. An aortobiiliac stent graft is present. The excluded sac measures up to 4.5 x 3.6 cm. There is enhancement within the sac which is likely the result of retrograde flow within a lumbar artery,a type II endoleak. There is some crescentic thrombus within the stent graft, not flow-limiting. 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 Flow is preserved within the common hepatic, splenic, and left gastric arteries. Superior mesenteric artery is patent. Bilateral main renal arteries are patent. The inferior mesenteric artery is occluded as a result of the abdominal aortic aneurysm. Mild scarring and/or atelectasis of the lung bases. The liver, gallbladder, spleen,adrenal glands, and pancreas are without acute abnormality. 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 There is bilateral renal cortical thinning. Small superficial cysts are present, largest 9 mm on the left. No bowel obstruction. Pelvis: The iliac limbs of the aortoiliac stent graft are patent. Bilateral external iliac arteries are patent. Bilateral internal iliac arteries are calcified but patent. 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 Urinary bladder is partially distended. Uterus is been removed. No free pelvic fluid. No acute osseous abnormality. Prior posterior lumbar fusion and laminectomy. Impression: 1. Status post aortobiiliac endoluminal stent graft repair of an aortic aneurysm. The residual sac measures up to 4.5 cm in diameter. 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 2. 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 3. 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 4. Interval right renal infarct. [facility] [place] NAME: MOISÉS CANNON [id number] PHYS: Chris Sky MD [place] [id number] : 1955 AGE: 63 SEX: F LOC: KO-SU PHONE #: [phone] EXAM DATE: 11/06/2018 STATUS: REG CLI FAX #: [phone] RAD #: D/C DT PAGE 1 Signed Report (CONTINUED) Patient Name: MOISÉS CANNON Unit No: [id number] EXAMS: CPT CODE: [id number] CTA ABD PEL W CONT 12345 <Continued> Electronically Signed by Paul Simmons on at 1346 Reported and signed by: Chris Simmons M.D. CC: Chito Hanson MD Technologist: Anam Bill RT(R); Kalen CTDI: DLP: Trnscrpt : 11/06/2018 (6336) [email or web address] [facility] [place] NAME: MOISÉS CANNON [id number] PHYS : Chris Sky MD [place] [id number] : 09/1954 AGE: 63 SEX: F LOC: KO-SU PHONE #: [phone] EXAM DATE: STATUS: REG CLI FAX #: [phone] RAD #: D/C DT PAGE 2 Signed Report Patient Name: MOISÉS CANNON Unit No: [id number] EXAMS: CPT CODE : [id number] CTA ABD PEL WCONT 30401 <Continued> Orig Print D/T: S: 11/06/2018 (1349) [facility] NAME: MOISÉS CANNON [id number] PHYS: [place] [address] : 1954 AGE: 63 SEX: F LOC: ZBELIA PHONE #: [phone] EXAM DATE: 11/06/2018 STATUS: REG CLI FAX #: [phone] RAD #: D/C DT PAGE 3 Signed ReportCBC W/PLT COUNT & AUTO [id number] 05:53:00 Test Item Value Reference Range Comments WHITE BLOOD CELL COUNT (BEAKER) (test kxyl=761) 12.3 K/ L 4.0-10.0 RED BLOOD CELL COUNT (BEAKER) (test lecg=012) 3.32 M/ L 4.00-5.00 HEMOGLOBIN (BEAKER) (test sqre=350) 10.4 GM/DL 12.0-15.5 HEMATOCRIT (BEAKER) (test fdgq=571) 33.8 % 36.0-46.0 MEAN CORPUSCULAR VOLUME (BEAKER) (test fwmb=267) 101.8 fL 82.0-99.0 MEAN CORPUSCULAR HEMOGLOBIN (BEAKER) (test 31.3 pg 27.0-33.0 ohxr=882) MEAN CORPUSCULAR HEMOGLOBIN CONC (BEAKER) (test 30.8 GM/DL 32.0-36.0 nsdb=668) RED CELL DISTRIBUTION WIDTH (BEAKER) (test 14.6 % 12.0-15.0 lddv=552) PLATELET COUNT (BEAKER) (test wrrj=478) 395 K/CU MM 150-430 MEAN PLATELET VOLUME (BEAKER) (test xchu=676) 9.7 fL 6.0-11.5 NUCLEATED RED BLOOD CELLS (BEAKER) (test 0 /100 WBC 0-0 jpyo=105) NEUTROPHILS RELATIVE PERCENT (BEAKER) (test 66 % sssk=434) LYMPHOCYTES RELATIVE PERCENT (BEAKER) (test 17 % cuyx=174) MONOCYTES RELATIVE PERCENT (BEAKER) (test 12 % ufpb=455) EOSINOPHILS RELATIVE PERCENT (BEAKER) (test 2 % vdzb=732) BASOPHILS RELATIVE PERCENT (BEAKER) (test 1 % tvgt=640) NEUTROPHILS ABSOLUTE COUNT (BEAKER) (test 8.14 K/ L 1.80-8.00 uhha=574) LYMPHOCYTES ABSOLUTE COUNT (BEAKER) (test 2.04 K/ L 1.48-4.50 umct=412) MONOCYTES ABSOLUTE COUNT (BEAKER) (test 1.46 K/ L 0.00-1.30 buat=325) EOSINOPHILS ABSOLUTE COUNT (BEAKER) (test 0.28 K/ L 0.00-0.50 epod=426) BASOPHILS ABSOLUTE COUNT (BEAKER) (test 0.07 K/ L 0.00-0.20 pykg=849) IMMATURE GRANULOCYTES-RELATIVE PERCENT (BEAKER) 3 % 0-0 (test nchx=1071) BASIC METABOLIC [id number] 05:36:00 Test Item Value Reference Range Comments SODIUM (BEAKER) (test 139 meq/L 135-148 qxob=345) POTASSIUM (BEAKER) (test 4.5 meq/L 3.6-5.5 jzuk=436) CHLORIDE (BEAKER) (test 102 meq/L 98-106 wrqm=041) CO2 (BEAKER) (test 28 meq/L 20-29 mrhu=526) BLOOD UREA NITROGEN 14 mg/dL 10-26 (BEAKER) (test qbjj=810) CREATININE (BEAKER) (test 0.63 mg/dL 0.50-1.20 ndvp=884) GLUCOSE RANDOM (BEAKER) 91 mg/dL 70-110 (test ujwu=627) CALCIUM (BEAKER) (test 9.3 mg/dL 8.5-10.5 wxoy=455) EGFR (BEAKER) (test 95 mL/min/1.73 sq m ESTIMATED GFR IS NOT mvfw=6720) ACCURATE CREATININE CLEARANCE IN PREDICTING GLOMERULAR FILTRATION RATE. ESTIMATED GFR IS NOT APPLICABLE FOR DIALYSIS PATIENTS. CT, CTA AAA, W/ RAVINDER.EXT.[id number] 18:40:00Addendum BeginsREPORT STATUS:A Addendum: I agree with the previously described non vascular findings. Additionally there is mild skin thickening in the lower anterior abdominal wall and subcutaneous edema which may be secondary to cellulitis. Signed: Ela Dain Ferrellort Verified Date/Time: 09/17/2018 18: 40:47 Reading Location: [place] [id number] Angio Body Reading RoomAddendum EndsFINAL REPORT CT angiography of the abdominal aorta with runoff , September2018 INDICATION: This is a 63 year old female with a diagnosis of abdominal aortic aneurysm presentsfor assessment. Note, a runoff study was requested in with the above indication. This study is performed in an attempt to avoid an invasive procedure. TECHNIQUE: Spiral acquisition before and during intravenous contrast administration using a [employer] multidetector CT scanner. Images were obtained before and during the dynamic passage of intravenous contrast material. Multi-planar 3-D volume-rendering reconstruction was performed using an independent workstation interactively by the interpreting physician as well as the 3-D specialist for optimal visualisation of the abdominal aorta, pelvic arteries, and its proximal branches. Please refer to the contrast sheet scanned in the EPIC system for the amountand route of contrast given. This exam was performed according to our departmental dose-optimisationprogramme, which includes automated exposure control, adjustment of the mA and/or kV according to patient size and/or use of iterative reconstruction technique. Dose modulation, iterative reconstruction, and/or weight based adjustment of the mA/ kV was utilized to reduce the radiation dose to as low asreasonably achievable. FINDINGS: VASCULAR: The distal descending thoracic aorta is unremarkable with mild atherosclerosis identified. In the abdominal aorta, endostent is placed, in the infrarenal abdominal aorta, below the takeoff of the left renal artery, with the iliac limbs place in the left and right common iliac arteries distally. Inside the stent, some circumferential intraluminal thrombus isidentified, at the proximal infrarenal level with no luminal obstruction identified. Small type II endoleak is identified, at image 152, at L4 level, from a right-sided lumbar artery. No prior examination is available for comparison and therefore the aortic volume is not provided. There is no evidenceof acute aortic pathology, specifically, there is no [...] patent. In the right, the right SFA iswidely patent. The right profunda system is widely [...] right, the right tibioperoneal trunk is widely patent.The right anterior tibial artery is well seen down to level of the ankle and the dorsalis pedis artery is identified. The right posterior tibial artery is patent plantar arch is seen distally. The right peroneal artery is a small calibre vessel. NON- VASCULAR: The lung bases are unremarkable. Dependentchanges are seen in the lung bases. Some [...] abdomen and pelvis. The prostate gland is unremarkable.The uterus is not well appreciated. No obvious abnormal adnexal mass is seen and CT is not optimisedin assessment of pelvic gynaecological structures. No free air free fluid seen abdomen and pelvis. No significant retroperitoneal adenopathy is identified. In the bony windows, no acute bony pathology is seen. However, surgical material is identified in the lower lumbar vertebral body with significantbeam hardening artefact and streak artefact identified, and associated laminectomy is seen. Correlate with operative report. CONCLUSIONS: 1. Endostent is placed in the infrarenal abdominal aorta. The stent appears to be well positioned. Type II endoleak, arising from a right lumbar artery at L4 levelis identified. See arrows in PACS for details. [...] dictated regarding the non-vascular findings by the Flotation Tender Radiologist. Signed: Morteza Johnson MDReport Verified Date/Time: 09/17/2018 14:46:36 Reading Location: [facility] B1 P047 Cardiology [facility] METABOLIC [id number] 07: 21:00 Test Item Value Reference Range Comments SODIUM (BEAKER) (test 145 meq/L 135-148 xnnz=999) POTASSIUM (BEAKER) (test 4.0 meq/L 3.6-5.5 zqhp=176) CHLORIDE (BEAKER) (test 103 meq/L 98-106 xhyr=854) CO2 (BEAKER) (test 32 meq/L 20-29 mwjd=139) BLOOD UREA NITROGEN 12 mg/dL 10-26 (BEAKER) (test qhrn=272) CREATININE (BEAKER) (test 0.63 mg/dL 0.50-1.20 myid=701) GLUCOSE RANDOM (BEAKER) 78 mg/dL 70-110 (test wtzv=710) CALCIUM (BEAKER) (test 8.5 mg/dL 8.5-10.5 krfo=388) EGFR (BEAKER) (test 95 mL/min/1.73 sq m ESTIMATED GFR IS NOT zfzn=5303) ACCURATE CREATININE CLEARANCE IN PREDICTING GLOMERULAR FILTRATION RATE. ESTIMATED GFR IS NOT APPLICABLE FOR DIALYSIS PATIENTS. [id number] 07:20:00 Test Item Value Reference Range Comments PHOSPHORUS (BEAKER) (test cdcy=811) 3.8 mg/dL 2.5-4.5 [id number] 07:15:00 Test Item Value Reference Range Comments MAGNESIUM (BEAKER) (test nmtt=458) 1.9 mg/dL 1.5-3.0 CBC W/PLT COUNT & AUTO [id number] 06:56:00 Test Item Value Reference Range Comments WHITE BLOOD CELL COUNT (BEAKER) (test ervz=001) 10.8 K/ L 4.0-10.0 RED BLOOD CELL COUNT (BEAKER) (test usgz=824) 3.02 M/ L 4.00-5.00 HEMOGLOBIN (BEAKER) (test chtl=036) 9.7 GM/DL 12.0-15.5 HEMATOCRIT (BEAKER) (test npdn=639) 30.4 % 36.0-46.0 MEAN CORPUSCULAR VOLUME (BEAKER) (test ttgv=115) 100.7 fL 82.0-99.0 MEAN CORPUSCULAR HEMOGLOBIN (BEAKER) (test 32.1 pg 27.0-33.0 jedg=507) MEAN CORPUSCULAR HEMOGLOBIN CONC (BEAKER) (test 31.9 GM/DL 32.0-36.0 ezik=886) RED CELL DISTRIBUTION WIDTH (BEAKER) (test 14.7 % 12.0-15.0 yuuc=385) PLATELET COUNT (BEAKER) (test ndqi=282) 344 K/CU MM 150-430 MEAN PLATELET VOLUME (BEAKER) (test hqam=698) 9.9 fL 6.0-11.5 NUCLEATED RED BLOOD CELLS (BEAKER) (test 0 /100 WBC 0-0 dshe=166) NEUTROPHILS RELATIVE PERCENT (BEAKER) (test 66 % qcfs=689) LYMPHOCYTES RELATIVE PERCENT (BEAKER) (test 17 % enuw=125) MONOCYTES RELATIVE PERCENT (BEAKER) (test 10 % hwaa=409) EOSINOPHILS RELATIVE PERCENT (BEAKER) (test 4 % gkcn=766) BASOPHILS RELATIVE PERCENT (BEAKER) (test 1 % afrt=576) NEUTROPHILS ABSOLUTE COUNT (BEAKER) (test 7.09 K/ L 1.80-8.00 uznz=731) LYMPHOCYTES ABSOLUTE COUNT (BEAKER) (test 1.87 K/ L 1.48-4.50 kzxt=664) MONOCYTES ABSOLUTE COUNT (BEAKER) (test 1.02 K/ L 0.00-1.30 almn=072) EOSINOPHILS ABSOLUTE COUNT (BEAKER) (test 0.41 K/ L 0.00-0.50 pthf=799) BASOPHILS ABSOLUTE COUNT (BEAKER) (test 0.05 K/ L 0.00-0.20 uejh=859) IMMATURE GRANULOCYTES-RELATIVE PERCENT (BEAKER) 3 % 0-0 (test bahe=0616) BASIC METABOLIC [id number] 05:51:00 Test Item Value Reference Range Comments SODIUM (BEAKER) (test 141 meq/L 135-148 hxrp=567) POTASSIUM (BEAKER) (test 4.0 meq/L 3.6-5.5 ecqq=578) CHLORIDE (BEAKER) (test 105 meq/L 98-106 jtfo=817) CO2 (BEAKER) (test 32 meq/L 20-29 qkim=564) BLOOD UREA NITROGEN 14 mg/dL 10-26 (BEAKER) (test jowx=258) CREATININE (BEAKER) (test 0.60 mg/dL 0.50-1.20 eqej=793) GLUCOSE RANDOM (BEAKER) 87 mg/dL 70-110 (test ynuo=037) CALCIUM (BEAKER) (test 8.1 mg/dL 8.5-10.5 qljc=269) EGFR (BEAKER) (test 101 mL/min/1.73 sq m ESTIMATED GFR IS NOT joyh=7878) ACCURATE CREATININE CLEARANCE IN PREDICTING GLOMERULAR FILTRATION RATE. ESTIMATED GFR IS NOT APPLICABLE FOR DIALYSIS PATIENTS. CBC W/PLT COUNT & AUTO [id number] 05:23:00 Test Item Value Reference Range Comments WHITE BLOOD CELL COUNT (BEAKER) (test svor=948) 9.3 K/ L 4.0-10.0 RED BLOOD CELL COUNT (BEAKER) (test fnkw=920) 2.85 M/ L 4.00-5.00 HEMOGLOBIN (BEAKER) (test xswo=940) 8.9 GM/DL 12.0-15.5 HEMATOCRIT (BEAKER) (test rfhk=538) 29.2 % 36.0-46.0 MEAN CORPUSCULAR VOLUME (BEAKER) (test thfl=900) 102.5 fL 82.0-99.0 MEAN CORPUSCULAR HEMOGLOBIN (BEAKER) (test 31.2 pg 27.0-33.0 aylx=824) MEAN CORPUSCULAR HEMOGLOBIN CONC (BEAKER) (test 30.5 GM/DL 32.0-36.0 xgqe=516) RED CELL DISTRIBUTION WIDTH (BEAKER) (test 14.9 % 12.0-15.0 stxi=701) PLATELET COUNT (BEAKER) (test reyw=265) 303 K/CU MM 150-430 MEAN PLATELET VOLUME (BEAKER) (test euhl=017) 9.6 fL 6.0-11.5 NUCLEATED RED BLOOD CELLS (BEAKER) (test 0 /100 WBC 0-0 cmrf=156) NEUTROPHILS RELATIVE PERCENT (BEAKER) (test 63 % bnif=285) LYMPHOCYTES RELATIVE PERCENT (BEAKER) (test 21 % fwjk=144) MONOCYTES RELATIVE PERCENT (BEAKER) (test 10 % cfve=841) EOSINOPHILS RELATIVE PERCENT (BEAKER) (test 3 % uaxt=339) BASOPHILS RELATIVE PERCENT (BEAKER) (test 0 % lwtr=488) NEUTROPHILS ABSOLUTE COUNT (BEAKER) (test 5.86 K/ L 1.80-8.00 blnv=121) LYMPHOCYTES ABSOLUTE COUNT (BEAKER) (test 1.96 K/ L 1.48-4.50 ftvz=840) MONOCYTES ABSOLUTE COUNT (BEAKER) (test 0.95 K/ L 0.00-1.30 sawv=024) EOSINOPHILS ABSOLUTE COUNT (BEAKER) (test 0.29 K/ L 0.00-0.50 dqhi=163) BASOPHILS ABSOLUTE COUNT (BEAKER) (test 0.03 K/ L 0.00-0.20 xzji=166) IMMATURE GRANULOCYTES-RELATIVE PERCENT (BEAKER) 2 % 0-0 (test tjid=7367) B-TYPE NATRIURETIC FACTOR (BNP)2018-09-15 05:51:00 Test Item Value Reference Range Comments B-TYPE NATRIURETIC PEPTIDE (BEAKER) (test 418 pg/mL 0-100 mtfy=152) [id number] 05:49:00 Test Item Value Reference Range Comments PHOSPHORUS (BEAKER) (test kecw=114) 1.5 mg/dL 2.5-4.5 BASIC METABOLIC [id number] 05:45:00 Test Item Value Reference Range Comments SODIUM (BEAKER) (test 144 meq/L 135-148 vdgt=602) POTASSIUM (BEAKER) (test 4.8 meq/L 3.6-5.5 xwwa=204) CHLORIDE (BEAKER) (test 105 meq/L 98-106 ithd=982) CO2 (BEAKER) (test 32 meq/L 20-29 hkaj=240) BLOOD UREA NITROGEN 12 mg/dL 10-26 (BEAKER) (test eqxn=710) CREATININE (BEAKER) (test 0.62 mg/dL 0.50-1.20 fkhi=680) GLUCOSE RANDOM (BEAKER) 113 mg/dL 70-110 (test dfyl=155) CALCIUM (BEAKER) (test 8.5 mg/dL 8.5-10.5 mpiq=290) EGFR (BEAKER) (test 97 mL/min/1.73 sq m ESTIMATED GFR IS NOT xijm=6866) ACCURATE CREATININE CLEARANCE IN PREDICTING GLOMERULAR FILTRATION RATE. ESTIMATED GFR IS NOT APPLICABLE FOR DIALYSIS PATIENTS. [id number] 05:39:00 Test Item Value Reference Range Comments MAGNESIUM (BEAKER) (test klqr=950) 2.3 mg/dL 1.5-3.0 CBC W/PLT COUNT & AUTO [id number] 05:24:00 Test Item Value Reference Range Comments WHITE BLOOD CELL COUNT (BEAKER) (test uuvl=075) 10.9 K/ L 4.0-10.0 RED BLOOD CELL COUNT (BEAKER) (test sdbc=196) 2.93 M/ L 4.00-5.00 HEMOGLOBIN (BEAKER) (test vkaq=138) 9.2 GM/DL 12.0-15.5 HEMATOCRIT (BEAKER) (test bwit=455) 29.3 % 36.0-46.0 MEAN CORPUSCULAR VOLUME (BEAKER) (test sewm=612) 100.0 fL 82.0-99.0 MEAN CORPUSCULAR HEMOGLOBIN (BEAKER) (test 31.4 pg 27.0-33.0 mydp=936) MEAN CORPUSCULAR HEMOGLOBIN CONC (BEAKER) (test 31.4 GM/DL 32.0-36.0 hdod=171) RED CELL DISTRIBUTION WIDTH (BEAKER) (test 14.7 % 12.0-15.0 ypyn=079) PLATELET COUNT (BEAKER) (test ytno=039) 313 K/CU MM 150-430 MEAN PLATELET VOLUME (BEAKER) (test ahdk=421) 9.7 fL 6.0-11.5 NUCLEATED RED BLOOD CELLS (BEAKER) (test 0 /100 WBC 0-0 oxrx=473) NEUTROPHILS RELATIVE PERCENT (BEAKER) (test 82 % iouz=932) LYMPHOCYTES RELATIVE PERCENT (BEAKER) (test 9 % fdny=705) MONOCYTES RELATIVE PERCENT (BEAKER) (test 8 % eohy=255) EOSINOPHILS RELATIVE PERCENT (BEAKER) (test 0 % fesg=018) BASOPHILS RELATIVE PERCENT (BEAKER) (test 0 % mefa=409) NEUTROPHILS ABSOLUTE COUNT (BEAKER) (test 8.88 K/ L 1.80-8.00 zfzp=673) LYMPHOCYTES ABSOLUTE COUNT (BEAKER) (test 1.00 K/ L 1.48-4.50 tiin=848) MONOCYTES ABSOLUTE COUNT (BEAKER) (test 0.86 K/ L 0.00-1.30 zmwf=209) EOSINOPHILS ABSOLUTE COUNT (BEAKER) (test 0.03 K/ L 0.00-0.50 dpsa=278) BASOPHILS ABSOLUTE COUNT (BEAKER) (test 0.01 K/ L 0.00-0.20 fqhl=323) IMMATURE GRANULOCYTES-RELATIVE PERCENT (BEAKER) 1 % 0-0 (test mteh=4655) BASIC METABOLIC [id number] 21:36:00 Test Item Value Reference Range Comments SODIUM (BEAKER) (test 141 meq/L 135-148 dchp=886) POTASSIUM (BEAKER) (test 3.2 meq/L 3.6-5.5 wkfc=556) CHLORIDE (BEAKER) (test 102 meq/L 98-106 tmsu=680) CO2 (BEAKER) (test 31 meq/L 20-29 wvun=970) BLOOD UREA NITROGEN 9 mg/dL 10-26 (BEAKER) (test kprl=190) CREATININE (BEAKER) (test 0.65 mg/dL 0.50-1.20 rgul=675) GLUCOSE RANDOM (BEAKER) 150 mg/dL 70-110 (test dumf=614) CALCIUM (BEAKER) (test 8.3 mg/dL 8.5-10.5 tivm=030) EGFR (BEAKER) (test 92 mL/min/1.73 sq m ESTIMATED GFR IS NOT voku=1175) ACCURATE CREATININE CLEARANCE IN PREDICTING GLOMERULAR FILTRATION RATE. ESTIMATED GFR IS NOT APPLICABLE FOR DIALYSIS PATIENTS. CBC W/PLT COUNT & AUTO [id number] 16:26:00 Test Item Value Reference Range Comments WHITE BLOOD CELL COUNT (BEAKER) (test xrpl=961) 8.1 K/ L 4.0-10.0 RED BLOOD CELL COUNT (BEAKER) (test wdqj=753) 2.93 M/ L 4.00-5.00 HEMOGLOBIN (BEAKER) (test lblj=117) 9.3 GM/DL 12.0-15.5 HEMATOCRIT (BEAKER) (test ataq=448) 28.7 % 36.0-46.0 MEAN CORPUSCULAR VOLUME (BEAKER) (test zzjt=016) 98.0 fL 82.0-99.0 MEAN CORPUSCULAR HEMOGLOBIN (BEAKER) (test 31.7 pg 27.0-33.0 fulk=725) MEAN CORPUSCULAR HEMOGLOBIN CONC (BEAKER) (test 32.4 GM/DL 32.0-36.0 cdhj=796) RED CELL DISTRIBUTION WIDTH (BEAKER) (test 14.5 % 12.0-15.0 lxvg=413) PLATELET COUNT (BEAKER) (test vlph=908) 277 K/CU MM 150-430 MEAN PLATELET VOLUME (BEAKER) (test kqry=578) 9.5 fL 6.0-11.5 NUCLEATED RED BLOOD CELLS (BEAKER) (test 0 /100 WBC 0-0 dlyl=219) NEUTROPHILS RELATIVE PERCENT (BEAKER) (test 89 % dhno=769) LYMPHOCYTES RELATIVE PERCENT (BEAKER) (test 7 % nekl=718) MONOCYTES RELATIVE PERCENT (BEAKER) (test 3 % zhcm=221) EOSINOPHILS RELATIVE PERCENT (BEAKER) (test 0 % bzed=272) BASOPHILS RELATIVE PERCENT (BEAKER) (test 0 % dxqb=680) NEUTROPHILS ABSOLUTE COUNT (BEAKER) (test 7.22 K/ L 1.80-8.00 npkj=934) LYMPHOCYTES ABSOLUTE COUNT (BEAKER) (test 0.55 K/ L 1.48-4.50 deyq=743) MONOCYTES ABSOLUTE COUNT (BEAKER) (test 0.25 K/ L 0.00-1.30 koqt=272) EOSINOPHILS ABSOLUTE COUNT (BEAKER) (test 0.01 K/ L 0.00-0.50 vxcj=183) BASOPHILS ABSOLUTE COUNT (BEAKER) (test 0.01 K/ L 0.00-0.20 xcrn=842) IMMATURE GRANULOCYTES-RELATIVE PERCENT (BEAKER) 1 % 0-0 (test bjqq=4401)
[2019-02-28 19:05] LABS: Absolute Lymphocytes (CBC) 1.4 K/uL (0.7-4.9); Basophils % 1.3 % (0-1.3); Hematocrit 38.6 % (36.0-45.0); Lymphocytes % 22.5 % (15.3-44.8); MPV 8.3 fL (7.6-11.3); Monocytes % 12.8 % (3.3-12.3)
--- NOTE | 2019-02-28 19:13 | RAD REPORT ---
EXAM DESCRIPTION: RAD - Chest Single View - 02/28/2019 6:55 pm CLINICAL HISTORY: sob Chest pain. COMPARISON: Chest Single View dated 09/14/2018; Chest Pa And Lat (2 Views) dated 09/20/2017; Chest Sing le View dated 05/22/2017; Chest Single View dated 05/22/2016; Angio Aorta For Dissection dated 9 FINDINGS: Portable technique limits examination quality. A small to moderate right pleural effusion is suspected. The lungs appear emphysematous. The heart is normal in size. No displaced fractures.Hardware plate is present cervical spine.
[2019-02-28 19:26] LABS: ALT/SGPT 18 U/L (12-78); AST/SGOT 18 U/L (15-37); Albumin 3.4 g/dL (3.4-5.0); Alkaline Phosphatase 115 U/L (45-117); BUN Blood Urea Nitrogen 7 mg/dL (7-18); Bicarbonate 26 mmol/L (21-32); Bilirubin Direct 0.1 mg/dL (0-0.2); Bilirubin Total 0.4 mg/dL (0.2-1.0); Glucose Level 82 mg/dL (74-106); Magnesium 2.2 mg/dL (1.8-2.4); NT PRO-BNP 310 pg/mL (<125); Potassium 3.8 mmol/L (3.5-5.1); Protein, Total 7.2 g/dL (6.4-8.2); Sodium Level 141 mmol/L (136-145); Troponin (Emerg Dept Use Only) < 0.02 ng/mL (0.0-0.045)
[2019-02-28] MEDS ORDERED: IPRATROPIUM BROM 0.5MG/2.5ML ONE (19:44)
[2019-02-28] MEDS ORDERED: ALBUTEROL 2.5 MG/3 ML NEB SOL ONE (19:44)
[2019-02-28] MEDS ORDERED: METHYLPREDNISOLONE 125 MG INJ ONE (19:44)
--- NOTE | 2019-02-28 22:17 | ER ---
Nurse's Notes [facility] Name: Amanda Malik Age: 63 yrs Sex: Female : 1955 Arrival Date: 02/28/2019 Time: 18:06 Bed 24 Private MD: Herman Watkins S Diagnosis: Chronic obstructive pulmonary disease with (acute) exacerbation;Pleural effusion, not elsewhere classified;Hypoxemia Presentation: 02/28 18:08 Presenting complaint: Patient states: Shortness of breath for the past week. Patient aj1 reports productive cough. Reports that she had surgery for a lung infection and a chest tube 2 months ago. Transition of care: patient was not received from another setting of care. Onset of symptoms was February 2019. Risk Assessment: Do you want to hurt yourself or someone else? Patient reports no desire to harm self or others. Initial Sepsis Screen: Does the patient meet any 2 criteria? HR > 90 bpm. No. Patient's initial sepsis screen is negative. Does the patient have a suspected source of infection? Yes: Productive cough/pneumonia. Care prior to arrival: None. 18:08 Method Of Arrival: Wheelchair aj 18:08 Acuity: EMILY 3 aj1 Triage Assessment: 18:13 General: Appears in no apparent distress. uncomfortable, Behavior is calm, cooperative, aj1 appropriate for age. Pain: Denies pain. Neuro: Level of Consciousness is awake, alert, obeys commands, Oriented to person, place, time, situation. Cardiovascular: Patient's skin is warm and dry. Respiratory: Reports shortness of breath cough that is productive, Airway is patent Respiratory effort is even, unlabored, Respiratory pattern is regular, symmetrical, Onset: The symptoms/episode began/occurred "several days", the patient has mild shortness of breath. Historical: - Allergies: 18:13 No Known Allergies; aj1 - Home Meds: 18:13 Albuterol Inhl [Active]; atorvastatin 10 mg Oral tab 1 tab once daily [Active]; Breo aj1 Ellipta 200-25 mcg/dose inhalation dsdv 1 puff once daily [Active]; cyclobenzaprine 10 mg Oral tab 1 tab 3 times per day [Active]; escitalopram oxalate 20 mg Oral tab 1 tab once daily [Active]; metoprolol succinate 25 mg Oral Tb24 1 tab BID [Active]; omeprazole 20 mg Oral cpDR 1 cap once daily [Active]; 22:53 Tylenol #3 Oral [Active]; mg2 - PMHx: 18:13 COPD; High Cholesterol; Hypertension; aj1 - Immunization history:: Flu vaccine is up to date. - Social history:: Smoking status: Patient/guardian denies using tobacco. - Ebola Screening: : Patient denies travel to an Ebola-affected area in the 21 days before illness onset. Screenin:06 Abuse screen: Denies threats or abuse. Denies injuries from another. Nutritional aj screening: No deficits noted. Tuberculosis screening: No symptoms or risk factors identified. Fall Risk None identified. Assessment: 19:06 General: Appears in no apparent distress. uncomfortable, Behavior is calm, cooperative, aj appropriate for age. Pain: Denies pain. Neuro: Level of Consciousness is awake, alert, obeys commands, Oriented to person, place, time, situation, Appropriate for age. Cardiovascular: Reports None Capillary refill < 3 seconds in bilateral fingers Patient's skin is warm and dry. Rhythm is regular. Respiratory: Reports shortness of breath Airway is patent Respiratory effort is even, labored, Respiratory pattern is tachypnea Breath sounds with wheezes. Derm: Skin is intact, is healthy with good turgor, Skin is pink, warm \\T\\ dry. normal. 22:13 Reassessment: dr nicholson at bedside talking to the patient and family. mg2 Vital Signs: 18:13 BP 127 / 80; Pulse 92; Resp 20; Temp 98.2; Pulse Ox 95% on R/A; Weight 56.7 kg (R); aj1 Height 5 ft. 0 in. (152.40 cm) (R); Pain 0/10; 19:06 BP 145 / 90; Pulse 89; Resp 22; Pulse Ox 96% on 3 lpm NC; aj 22:12 Pulse 101; Resp 23; Pulse Ox 95% on 3 lpm NC; mg2 22:35 BP 120 / 86; Pulse 101; Resp 23; Temp 98.1; Pulse Ox 95% on 1 lpm NC; mg2 18:13 Body Mass Index 24.41 (56.70 kg, 152.40 cm) aj1 ED Course: 18:06 Patient arrived in ED. as 18:06 Herman Watkins MD is Private Physician. as 18:12 Triage completed. aj1 18:13 Arm band placed on. aj1 18:17 Jorden Mendoza MD is Attending Physician. kdr 18:49 Emely Syed RN is Primary Nurse. aj 18:51 Initial lab(s) drawn, by me, sent to lab. Inserted saline lock: 22 gauge in left lt1 antecubital area, using aseptic technique. 19:02 Chest Single View In Process Unspecified. EDMS 19:06 Jt Kelly PA is PHCP. jr8 19:06 Patient has correct armband on for positive identification. aj 22:16 Lesly Ferris MD is Hospitalizing Provider. jr8 22:36 No provider procedures requiring assistance completed. Patient admitted, IV remains in mg2 place. Administered Medications: 19:32 Drug: Albuterol - atroVENT (3:1) (2.5 mg - 0.5 mg) 3 ml Route: Nebulizer; aj 23:07 Follow up: Response: No adverse reaction; Marked relief of symptoms mg2 19:33 Drug: SOLU-Medrol 125 mg Route: IVP; Site: left antecubital; aj 23:06 Follow up: Response: No adverse reaction; Marked relief of symptoms mg2 Outcome: 22:16 Decision to Hospitalize by Provider. jr8 22:53 Admitted to Med/surg accompanied by tech, via wheelchair, room 230, with oxygen, with mg2 chart, Report called to ZAYRA Dodson 22:53 Condition: stable 22:53 Instructed on the need for admit, Demonstrated understanding of instructions. 23:10 Patient left the ED. mg2 Signatures: Dispatcher [employer] ED[facility] Tigist Odonnell RN RN aj1 Emely Syed, RN RN aj Jorden Mendoza MD MD kdr Martinez, Amelia as Jt Kelly PA PA jr8 Grayson Macdonald RN RN mg2 [place], [place] [id number]
[2019-02-28 22:18] LABS: Arterial Blood Carboxyhemoglob 0.9 % (0-1.5); Blood O2 Saturation 87.6 % (92-98.5)
--- NOTE | 2019-02-28 22:18 | EDPHYS ---
Physician Documentation [facility] Name: Amanda Malik Age: 63 yrs Sex: Female : 1955 Arrival Date: 02/28/2019 Time: 18:06 Bed 24 Private MD: Herman Watkins S ED Physician Jorden Mendoza HPI: 02/28 20:36 This 63 yrs old Female presents to ER via Wheelchair with complaints of jr8 Shortness Of Breath. 20:36 The patient has shortness of breath at rest. Onset: The symptoms/episode began/occurred jr8 gradually, 1 week(s) ago, and became worse and became persistent. Duration: The symptoms are continuous. The patient's shortness of breath is aggravated by exertion, talking, walking, is alleviated by nothing. Associated signs and symptoms: Pertinent positives: productive cough. Severity of symptoms: At their worst the symptoms were moderate in the emergency department the symptoms are unchanged. It is unknown whether or not the patient has had similar symptoms in the past. The patient has not recently seen a physician. Historical: - Allergies: 18:13 No Known Allergies; aj1 - Home Meds: 18:13 Albuterol Inhl [Active]; atorvastatin 10 mg Oral tab 1 tab once daily [Active]; Breo aj1 Ellipta 200-25 mcg/dose inhalation dsdv 1 puff once daily [Active]; cyclobenzaprine 10 mg Oral tab 1 tab 3 times per day [Active]; escitalopram oxalate 20 mg Oral tab 1 tab once daily [Active]; metoprolol succinate 25 mg Oral Tb24 1 tab BID [Active]; omeprazole 20 mg Oral cpDR 1 cap once daily [Active]; 22:53 Tylenol #3 Oral [Active]; mg2 - PMHx: 18:13 COPD; High Cholesterol; Hypertension; aj1 - Immunization history:: Flu vaccine is up to date. - Social history:: Smoking status: Patient/guardian denies using tobacco. - Ebola Screening: : Patient denies travel to an Ebola-affected area in the 21 days before illness onset. ROS: 20:36 Eyes: Negative for injury, pain, redness, and discharge, ENT: Negative for injury, jr8 pain, and discharge, Neck: Negative for injury, pain, and swelling, Cardiovascular: Negative for chest pain, palpitations, and edema, Abdomen/GI: Negative for abdominal pain, nausea, vomiting, diarrhea, and constipation, Back: Negative for injury and pain, MS/Extremity: Negative for injury and deformity, Skin: Negative for injury, rash, and discoloration, Neuro: Negative for headache, weakness, numbness, tingling, and seizure. 20:36 Respiratory: Positive for cough, dyspnea on exertion, shortness of breath, wheezing. Exam: 20:36 Eyes: Pupils equal round and reactive to light, extra-ocular motions intact. Lids and jr8 lashes normal. Conjunctiva and sclera are non-icteric and not injected. Cornea within normal limits. Periorbital areas with no swelling, redness, or edema. ENT: Nares patent. No nasal discharge, no septal abnormalities noted. Tympanic membranes are normal and external auditory canals are clear. Oropharynx with no redness, swelling, or masses, exudates, or evidence of obstruction, uvula midline. Mucous membranes moist. Neck: Trachea midline, no thyromegaly or masses palpated, and no cervical lymphadenopathy. Supple, full range of motion without nuchal rigidity, or vertebral point tenderness. No Meningismus. Cardiovascular: Regular rate and rhythm with a normal S1 and S2. No gallops, murmurs, or rubs. Normal PMI, no JVD. No pulse deficits. Abdomen/GI: Soft, non-tender, with normal bowel sounds. No distension or tympany. No guarding or rebound. No evidence of tenderness throughout. Back: No spinal tenderness. No costovertebral tenderness. Full range of motion. Skin: Warm, dry with normal turgor. Normal color with no rashes, no lesions, and no evidence of cellulitis. MS/ Extremity: Pulses equal, no cyanosis. Neurovascular intact. Full, normal range of motion. Neuro: Awake and alert, GCS 15, oriented to person, place, time, and situation. Cranial nerves II-XII grossly intact. Motor strength 5/5 in all extremities. Sensory grossly intact. Cerebellar exam normal. Normal gait. 20:36 Respiratory: mild respiratory distress is noted, Respirations: labored breathing, pursed lip breathing, tachypnea, Breath sounds: wheezing: expiratory that is moderate, is heard diffusely, Respiratory rate: 30 Vital Signs: 18:13 BP 127 / 80; Pulse 92; Resp 20; Temp 98.2; Pulse Ox 95% on R/A; Weight 56.7 kg (R); aj1 Height 5 ft. 0 in. (152.40 cm) (R); Pain 0/10; 19:06 BP 145 / 90; Pulse 89; Resp 22; Pulse Ox 96% on 3 lpm NC; aj 22:12 Pulse 101; Resp 23; Pulse Ox 95% on 3 lpm NC; mg2 22:35 BP 120 / 86; Pulse 101; Resp 23; Temp 98.1; Pulse Ox 95% on 1 lpm NC; mg2 18:13 Body Mass Index 24.41 (56.70 kg, 152.40 cm) aj1 MDM: 19:10 Patient medically screened. jr8 22:14 Data reviewed: vital signs, nurses notes, lab test result(s), EKG, radiologic studies, jr8 plain films, and as a result, I will admit patient. Data interpreted: Pulse oximetry: on room air is 95 %. Interpretation: normal. Counseling: I had a detailed discussion with the patient and/or guardian regarding: the historical points, exam findings, and any diagnostic results supporting the discharge/admit diagnosis, lab results, radiology results, the need for further work-up and treatment in the hospital. Physician consultation: Lesly Ferris MD was called at 22:15, was contacted at 22:15, regarding admission, to the telemetry unit. consult, patient's condition, and will see patient in ED. ED course: Patient could not lay down for CT due to shortness of breath. Continues to be tachypneic. Will admit to obs after seeing abg which shows hypoxia. 02/28 18:17 Order name: Basic Metabolic Panel; Complete Time: 19:34 kdr 02/28 18:17 Order name: CBC with Diff; Complete Time: 19:21 kdr 02/28 18:17 Order name: LFT's; Complete Time: 19:34 kdr 02/28 18:17 Order name: Magnesium; Complete Time: 19:34 kdr 02/28 18:17 Order name: NT PRO-BNP; Complete Time: 19:34 kdr 02/28 18:17 Order name: PT-INR; Complete Time: 19:21 kdr 02/28 18:17 Order name: Troponin (emerg Dept Use Only); Complete Time: 19:34 kdr 02/28 18:57 Order name: Chest Single View; Complete Time: 19:34 EDMS 02/28 21:28 Order name: ABG; Complete Time: 13:57 jr8 02/28 22:43 Order name: Urine Dipstick--Ancillary (enter results) ar5 02/28 18:17 Order name: EKG; Complete Time: 18:58 kdr 02/28 18:17 Order name: Cardiac monitoring; Complete Time: 18:52 kdr 02/28 18:17 Order name: EKG - Nurse/Tech; Complete Time: 18:52 kdr 02/28 18:17 Order name: IV Saline Lock; Complete Time: 18:52 kdr 02/28 18:17 Order name: Labs collected and sent; Complete Time: 18:52 kdr 02/28 18:17 Order name: O2 Per Protocol; Complete Time: 18:52 kdr 02/28 18:17 Order name: O2 Sat Monitoring; Complete Time: 18:52 kdr Administered Medications: 19:32 Drug: Albuterol - atroVENT (3:1) (2.5 mg - 0.5 mg) 3 ml Route: Nebulizer; aj 23:07 Follow up: Response: No adverse reaction; Marked relief of symptoms mg2 19:33 Drug: SOLU-Medrol 125 mg Route: IVP; Site: left antecubital; aj 23:06 Follow up: Response: No adverse reaction; Marked relief of symptoms mg2 Disposition: 03/01 05:55 Co-signature as Attending Physician, Jorden Mendoza MD I agree with the assessment and kdr plan of care. Disposition: 02/28/19 22:16 Hospitalization ordered by Lesly Ferris for Observation. Preliminary diagnosis are Chronic obstructive pulmonary disease with (acute) exacerbation, Pleural effusion, not elsewhere classified, Hypoxemia. - Bed requested for Telemetry/MedSurg (observation). - Status is Observation. mg2 - Condition is Stable. - Problem is new. - Symptoms have improved. UTI on Admission? No Signatures: Dispatcher [employer] [facility] Tigist Odonnell RN RN aj1 Promise Irizarry RN Emely Rodriguez RN RN aj Rittger, Kevin, MD MD [facility] Jt Kelly PA PA jr8 Grayson Macdonald RN RN mg2 Corrections: (The following items were deleted from the chart) 02/28 19:02 18:58 Chest Single View+RAD.RAD.BRZ ordered. EDAL EDMS 21:30 20:37 Thorax W/ Con+CT.RAD.BRZ ordered. EDAL EDAL 22:17 22:16 Hospitalization Ordered by Lesly Ferris MD for Observation. Preliminary jr8 diagnosis is Chronic obstructive pulmonary disease with (acute) exacerbation; Pleural effusion, not elsewhere classified. Bed requested for Telemetry/MedSurg (observation). Status is Observation. Condition is Stable. Problem is new. Symptoms have improved. UTI on Admission? No. jr8 22:24 22:17 02/28/2019 22:16 Hospitalization Ordered by Lesly Ferris MD for Observation. mw Preliminary diagnosis is Chronic obstructive pulmonary disease with (acute) exacerbation; Pleural effusion, not elsewhere classified; Hypoxemia. Bed requested for Telemetry/MedSurg (observation). Status is Observation. Condition is Stable. Problem is new. Symptoms have improved. UTI on Admission? No. jr8 23:10 22:24 02/28/2019 22:16 Hospitalization Ordered by Lesly Ferris MD for Observation. mg2 Preliminary diagnosis is Chronic obstructive pulmonary disease with (acute) exacerbation; Pleural effusion, not elsewhere classified; Hypoxemia. Bed requested for Telemetry/MedSurg (observation). Status is Observation. Condition is Stable. Problem is new. Symptoms have improved. UTI on Admission? No. mw
--- NOTE | 2019-02-28 22:53 | P.HP ---
Certification for Inpatient Patient admitted to: Observation With expected LOS: <2 Midnights Practitioner: I am a practitioner with admitting privileges, knowledge of patient current condition, hospital course, and medical plan of care. Services: Services provided to patient in accordance with Admission requirements found in Title 42 Section 412.3 of the Code of Federal Regulations Patient History Date of Service: 02/28/19 Reason for admission: acute on chronic respiratory failure History of Present Illness: Ms Malik is a 63 years old woman with history of HTN, COPD, who was recently admitted in the hospital at [facility] after have a lung biopsy (patient states that biopsy report showed fungal pneumonia, completed treatment already) . The procedure was complicated with a pneumothorax requiring jail chest tube. She came to ED at this time complaining of progressive dyspnea. Her symptoms got worse in the last 3 days. She is also complaining of productive cough with yellowish secretions (she says that do not have secretions when she is ok) No history of fever or chills. Lab work shows normal WBC count, CXR shows right mild to moderate pleural effusion (same side that she has had chest tube placed) O2 Sat was > 95 on RA at rest, but minimal movements make it drop to 88%. ABG shows O2 55.7 on RA. Allergies No Known Drug Allergies Allergy (Verified 08/15/17 09:40) Unknown No Known Allergies Allergy (Uncoded 05/21/16 21:20) Unknown Home Medications: Atorvastatin Calcium [Lipitor*] 10 mg PO BEDTIME 05/21/16 Losartan/Hydrochlorothiazide [Losartan-Hctz 100-12.5 mg Tab] 1 tab PO DAILY 06/26 Metoprolol Succinate [Toprol Xl*] 50 mg PO DAILY 05/21/16 Sertraline HCl 50 mg PO DAILY 05/21/16 Tiotropium [Spiriva Handihaler*] 1 cap IN DAILY 05/21/16 Formoterol Fumarate [Perforomist] 20 mcg IH BID #60 vial.neb 05/22/16 predniSONE [Deltasone] 20 mg PO BID #15 tab 05/22/16 Alprazolam [Xanax] 1 tab PO PRN 08/15/17 - Past Medical/Surgical History Diabetic: No -: Hyperlipidemia -: Hypertension -: GERD -: Depression -: COPD -: History of abdominal aortic aneurysm, status post stent -: Abdominal aortic aneurysm stent -: Cholecystectomy -: Appendectomy -: Hysterectomy -: Tonsillectomy -: Bladder suspension Psychosocial/ Personal History: She is , has 3 children, 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 - Family History Family History: Reviewed- Non-Contributory - Social History Smoking Status: Former smoker Alcohol use: Yes CD- Drugs: No Caffeine use: Yes Place of Residence: Home Review of Systems 10-point ROS is otherwise unremarkable Physical Examination - Physical Exam General: Alert, In no apparent distress, Other (anxious) HEENT: Atraumatic, PERRLA, Mucous membr. moist/pink, EOMI, Sclerae nonicteric Neck: Supple, 2+ carotid pulse no bruit, No LAD, Without JVD or thyroid abnormality Respiratory: Clear to auscultation bilaterally, Diminished Cardiovascular: Regular rate/rhythm, Normal S1 S2 Gastrointestinal: Normal bowel sounds, No tenderness Musculoskeletal: No tenderness Integumentary: No rashes Neurological: Normal gait, Normal speech, Normal strength at 5/5 x4 extr, Normal tone, Normal affect Lymphatics: No axilla or inguinal lymphadenopathy - Studies Laboratory Data (last 24 hrs) 02/28/19 18:50: PT 11.8, INR 1.00 02/28/19 18:50: WBC 6.3, Hgb 12.1, Hct 38.6, Plt Count 385 02/28/19 18:50: Sodium 141, Potassium 3.8, BUN 7, Creatinine 0.87, Glucose 82, Magnesium 2.2, Total Bilirubin 0.4, AST 18, ALT 18, Alkaline Phosphatase 115 Assessment and Plan - Problems (Diagnosis) (1) COPD exacerbation Current Visit: Yes Status: Acute (2) Depression with anxiety Current Visit: No Status: Chronic (3) History of abdominal aortic aneurysm (AAA) repair Current Visit: No Status: Chronic (4) Hypertension Current Visit: No Status: Chronic Qualifiers: Hypertension type: essential hypertension Qualified Code(s): I10 - Essential (primary) hypertension - Plan The patient will be admitted to the hospital due to acute an chronic respiratory failure secondary to COPD exacerbation. Will order IV steroids, breathing treatments, and pulmonology consult for treatment adjustment. - Advance Directives Does patient have a Living Will: No Does patient have a Durable POA for Healthcare: No - Code Status/Comfort Care Code Status Assessed: Yes Code Status: Full Code
[2019-02-28 23:21] LABS: Urine Blood NEGATIVE (NEG); Urine Glucose NEGATIVE (NEG); Urine Protein NEGATIVE (NEG); Urine Specific Gravity <1.005 (1.005-1.030); Urine pH 5.5 (5.0-7.0)
[2019-02-28] MEDS ORDERED: ONDANSETRON 4 MG/2 ML VIAL IV PRN (23:23)
[2019-02-28] MEDS ORDERED: IPRATROPIUM BROM 0.5MG/2.5ML NEB PRN (23:23)
[2019-03-01] MEDS: ALBUTEROL 2.5 MG/3 ML NEB SOL NEB PRN ×3 (00:10→18:00)
[2019-03-01] MEDS: ZOLPIDEM TARTRATE 10 MG TABLET PO PRN ×2 (00:11→20:41)
[2019-03-01] MEDS: METHYLPREDNISOLONE 40 MG INJ IV SCH ×2 (00:12→05:56)
[2019-03-01 00:43] VITALS: BMI 21.6
[2019-03-01 06:23] LABS: Absolute Lymphocytes (CBC) 0.4 K/uL (0.7-4.9); Basophils % 0.4 % (0-1.3); Hematocrit 36.5 % (36.0-45.0); Lymphocytes % 8.9 % (15.3-44.8); Monocytes % 1.2 % (3.3-12.3); RBC Red Blood Cell Count 4.36 M/uL (3.86-4.86)
[2019-03-01 06:35] LABS: Potassium 3.4 mmol/L (3.5-5.1)
[2019-03-01] MEDS: ENOXAPARIN 40 MG/0.4 ML SQ SCH (08:51)
[2019-03-01] MEDS ORDERED: POTASSIUM CL SA 10 MEQ TAB PO ONE ×2 (09:00→21:00)
[2019-03-01 09:03] LABS: Blood Morphology Comment NOT SEEN (NOT SEEN); Platelet Estimate ADEQ
--- NOTE | 2019-03-01 10:51 | EKG ---
Test Date: 2019-02-28 Test Time: 18:39:25 Wire Spring Relay Adjuster: MG MEASUREMENT RESULTS: Intervals: Rate: 92 CA: 108 QRSD: 68 QT: 370 QTc: 457 [place]: P: 57 CA: 108 QRS: 29 T: 33 INTERPRETIVE STATEMENTS: Sinus rhythm with short CA Low voltage QRS Abnormal ECG Compared to ECG 09/14/2018 03:18:47 Short CA interval now present Ventricular premature complex(es) no longer present ST (T wave) deviation no longer present Electronically Signed On 03-01-19 10:50:04 CDT by Karl Meyer
--- NOTE | 2019-03-01 10:56 | P.CNS ---
Date of Consult: 03/01/19 Chief Complaint: acute on chronic respiratory failure History of Present Illness: Patient is a 63 years of age with a history of COPD admitted with worsening dyspnea over the past 3-4 days patient has a history of COPD and is compliant with her bronchodilators also has a cough denies any fever chills sees a boat oar maker as an outpatient the quit smoking about 8 years ago denies any lower extremity edema no abdominal complaints feeling slightly better has not had an exacerbation for a number of years Allergies No Known Drug Allergies Allergy (Verified 02/28/19 23:32) Unknown No Known Allergies Allergy (Uncoded 02/28/19 23:32) Unknown Home Medications: Atorvastatin Calcium [Lipitor*] 10 mg PO BEDTIME 05/21/16 Metoprolol Succinate [Toprol Xl*] 50 mg PO BEDTIME 05/21/16 Tiotropium [Spiriva Handihaler*] 1 cap IN DAILY 05/21/16 Alprazolam [Xanax] 1 tab PO DAILYPRN PRN 08/15/17 Escitalopram Oxalate 10 mg PO BEDTIME 02/28/19 Fluticasone/Vilanterol [Breo Ellipta 200-25 Mcg INH] 1 each IH BEDTIME 02/28/19 Omeprazole 20 mg PO BEDTIME 02/28/19 Zolpidem Tartrate [Ambien] 10 mg PO BEDTIME 02/28/19 - Past Medical/Surgical History Diabetic: No -: Hyperlipidemia -: Hypertension -: GERD -: Depression -: COPD -: History of abdominal aortic aneurysm, status post stent -: Abdominal aortic aneurysm stent -: Cholecystectomy -: Appendectomy -: Hysterectomy -: Tonsillectomy -: Bladder suspension -: Shoulder Surgery -: Back Surgery Psychosocial/ Personal History: She is , has 3 children, 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 - Family History Sister Medical History: Cancer Father Medical History: Heart disease, Lung disease, Diabetes Mother Medical History: Other (see notes) Notes: COPD Osteoporosis - Social History Alcohol use: Yes CD- Drugs: No Caffeine use: Yes Place of Residence: Home Review of Systems 10-point ROS is otherwise unremarkable General: Weakness Respiratory: Cough, Shortness of Breath Physical Examination Temp Pulse Resp BP Pulse Ox 97.5 F 107 H 20 143/88 H 92 03/01/19 08:00 03/01/19 08:00 03/01/19 08:00 03/01/19 08:00 03/01/19 08:00 General: Alert, In no apparent distress, Oriented x3 HEENT: Atraumatic Neck: Supple Respiratory: Expiratory wheezes Cardiovascular: No edema, Regular rate/rhythm Gastrointestinal: Normal bowel sounds Laboratory Data (last 24 hrs) 02/28/19 18:50: PT 11.8, INR 1.00 02/28/19 18:50: WBC 6.3, Hgb 12.1, Hct 38.6, Plt Count 385 02/28/19 18:50: Sodium 141, Potassium 3.8, BUN 7, Creatinine 0.87, Glucose 82, Magnesium 2.2, Total Bilirubin 0.4, AST 18, ALT 18, Alkaline Phosphatase 115 - Problems (1) COPD exacerbation Current Visit: Yes Status: Acute Plan: Patient is 63 years of age admitted with COPD exacerbation does have a history of COPD quit smoking 8 years ago patient is hypoxic with low CO chest x-ray shows elevated right hemidiaphragm otherwise clear rule out thromboembolism by CT pulmonary angiogram labs reviewed no evidence of sepsis the change director to prednisone 20 mg twice a day schedule long-acting bronchodilators room-air pulse ox possible discharge tomorrow follow up with me in 2 weeks patient may qualify for home O2 possible discharge tomorrow patient is compliant with the therapy at home she uses Breo and Spiriva sees a boat oar maker as an outpatient
--- NOTE | 2019-03-01 11:18 | P.PN ---
Subjective Date of Service: 03/01/19 Chief Complaint: acute on chronic respiratory failure Pt seen and examined at bedside. Chart reviewed. Case DW with Pulmonology. Denied having acute event overnight. States she feels much better than before. Review of Systems 10-point ROS is otherwise unremarkable Physical Examination - Vital Signs Temperature: 97.5 F Blood Pressure: 143/88 Pulse: 107 Respirations: 20 Pulse Ox (%): 92 - Physical Exam General: Alert, In no apparent distress HEENT: Atraumatic, PERRLA, EOMI Neck: Supple, JVD not distended Respiratory: Normal air movement, Expiratory wheezes, Inspiratory wheezes Cardiovascular: Regular rate/rhythm, Normal S1 S2 Gastrointestinal: Normal bowel sounds, No tenderness Musculoskeletal: No tenderness Integumentary: No rashes Neurological: Normal speech, Normal tone, Normal affect Lymphatics: No axilla or inguinal lymphadenopathy - Studies Laboratory Data (last 24 hrs) 02/28/19 18:50: PT 11.8, INR 1.00 02/28/19 18:50: WBC 6.3, Hgb 12.1, Hct 38.6, Plt Count 385 02/28/19 18:50: Sodium 141, Potassium 3.8, BUN 7, Creatinine 0.87, Glucose 82, Magnesium 2.2, Total Bilirubin 0.4, AST 18, ALT 18, Alkaline Phosphatase 115 Medications List Reviewed: Yes Assessment And Plan - Current Problems (Diagnosis) (1) Acute and chronic respiratory failure Current Visit: Yes Status: Acute Plan: Acute on Chronic Respiratory Failure most likely 2.2 to COPD exacerbation -Oxygen, Duonebs and steroids at this time. -Wean off the oxygen as tolerated. If not will need Home Oxygen setup -S.P Lung biopsy in flowery branch and found to have Fungal PNA - Completed treatment course there -Pulmonology consulted. Appreciated [facility] Qualifiers: Respiratory failure complication: hypercapnia Qualified Code(s): J96.22 - Acute and chronic respiratory failure with hypercapnia (2) COPD exacerbation Current Visit: Yes Status: Acute (3) GERD (gastroesophageal reflux disease) Current Visit: No Status: Chronic Qualifiers: Esophagitis presence: esophagitis presence not specified Qualified Code(s) : K21.9 - Gastro-esophageal reflux disease without esophagitis (4) History of abdominal aortic aneurysm (AAA) repair Current Visit: No Status: Chronic (5) Hyperlipidemia Current Visit: No Status: Chronic Qualifiers: Hyperlipidemia type: unspecified Qualified Code(s): E78.5 - Hyperlipidemia , unspecified (6) Hypertension Current Visit: No Status: Chronic Qualifiers: Hypertension type: essential hypertension Qualified Code(s): I10 - Essential (primary) hypertension - Plan Pending Clinical Improvement Discharge Plan: Home Plan to discharge in: 48 Hours - Code Status/Comfort Care Code Status Assessed: Yes Critical Care: No
[2019-03-01] MEDS: ARFORMOTEROL TARTRATE 15 MCG/2 ML VIAL.NEB NEB SCH ×2 (11:50→20:00)
--- NOTE | 2019-03-01 11:50 | RAD REPORT ---
EXAM DESCRIPTION: CT - Chest Angio - 03/01/2019 11:25 am CLINICAL HISTORY: Chest pain, shortness of breath, history of aortic aneurysm, hypertension, COPD COMPARISON: None. TECHNIQUE: Dynamically enhanced 3 mm thick images of the chest were obtained during administration o f approximately 150mL Isovue 370 IV contrast. Coronal and oblique MIP reconstruction images were gene rated and reviewed. Exam utilizes a protocol to evaluate the pulmonary arterial tree. Patient was imaged in a left lateral decubitus position. Due to pain, patient could not tolerate otoniel dard supine position. All CT scans are performed using dose optimization technique as appropriate and may include automated exposure control or mA/KV adjustment according to patient size. FINDINGS: No pulmonary emboli are identified. The aorta as imaged shows no acute or suspicious finding. No pericardial thickening or effusion. No infiltrate or mass in the lung parenchyma. COPD changes are evident. No pleural effusion or pleura l thickening. Atelectasis changes are present related to the left lateral decubitus positioning. No mediastinal or hilar suspicious masses. No chest wall masses or abnormal axillary lymphadenopathy. IMPRESSION: No pulmonary emboli identified. COPD with no acute lung parenchymal process.
[2019-03-01] MEDS: IPRATROPIUM BROM 0.5MG/2.5ML NEB SCH ×3 (13:35→20:00)
[2019-03-01] MEDS ORDERED: ACETAMINOPHEN 500 MG TAB PO PRN (19:54)
[2019-03-01] MEDS: predniSONE 20 MG TAB PO SCH (20:40)
[2019-03-02] MEDS: IPRATROPIUM BROM 0.5MG/2.5ML NEB SCH ×2 (02:00→07:40)
[2019-03-02 06:26] LABS: BUN Blood Urea Nitrogen 15 mg/dL (7-18); Bicarbonate 27 mmol/L (21-32); Glucose Level 122 mg/dL (74-106); Potassium 4.8 mmol/L (3.5-5.1); Sodium Level 141 mmol/L (136-145)
[2019-03-02] MEDS: ARFORMOTEROL TARTRATE 15 MCG/2 ML VIAL.NEB NEB SCH (07:40)
[2019-03-02] MEDS: ALBUTEROL 2.5 MG/3 ML NEB SOL NEB PRN (07:40)
[2019-03-02 08:26] VITALS: BP 148/67; TEMP 97.4
[2019-03-02] MEDS: predniSONE 20 MG TAB PO SCH (08:36)
[2019-03-02] MEDS: ENOXAPARIN 40 MG/0.4 ML SQ SCH (08:36)
[2019-03-02 09:32] VITALS: O2SAT 94
--- NOTE | 2019-03-02 11:03 | P.SSS ---
Patient History Date of Service: 03/02/19 Reason for admission: acute on chronic respiratory failure History of Present Illness: SEE HPI Allergies No Known Drug Allergies Allergy (Verified 02/28/19 23:32) Unknown No Known Allergies Allergy (Uncoded 02/28/19 23:32) Unknown Home Medications: Atorvastatin Calcium [Lipitor*] 10 mg PO BEDTIME 05/21/16 Metoprolol Succinate [Toprol Xl*] 50 mg PO BEDTIME 05/21/16 Tiotropium [Spiriva Handihaler*] 1 cap IN DAILY 05/21/16 Alprazolam [Xanax] 1 tab PO DAILYPRN PRN 08/15/17 Escitalopram Oxalate 10 mg PO BEDTIME 02/28/19 Fluticasone/Vilanterol [Breo Ellipta 200-25 Mcg INH] 1 each IH BEDTIME 02/28/19 Omeprazole 20 mg PO BEDTIME 02/28/19 Zolpidem Tartrate [Ambien] 10 mg PO BEDTIME 02/28/19 predniSONE [Prednisone*] 20 mg PO BID #10 tab 03/02/19 - Past Medical/Surgical History Has patient received pneumonia vaccine in the past: Yes Diabetic: No -: Hyperlipidemia -: Hypertension -: GERD -: Depression -: COPD -: History of abdominal aortic aneurysm, status post stent -: Abdominal aortic aneurysm stent -: Cholecystectomy -: Appendectomy -: Hysterectomy -: Tonsillectomy -: Bladder suspension -: Shoulder Surgery -: Back Surgery Psychosocial/ Personal History: She is , has 3 children, 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 - Family History Family History: Reviewed- Non-Contributory - Family History Sister -: Cancer Father -: Heart disease, Lung disease, Diabetes Mother -: Other (see notes) Notes: COPD Osteoporosis - Social History Smoking Status: Former smoker Alcohol use: Yes CD- Drugs: No Caffeine use: Yes Place of Residence: Home Review of Systems 10-point ROS is otherwise unremarkable Physical Examination - Vital Signs Temperature: 97.4 F Blood Pressure: 148/67 Pulse: 96 Respirations: 16 Pulse Ox (%): 94 - Physical Exam General: Alert, In no apparent distress HEENT: Atraumatic, PERRLA, Mucous membr. moist/pink, EOMI, Sclerae nonicteric Neck: Supple, 2+ carotid pulse no bruit, No LAD, Without JVD or thyroid abnormality Respiratory: Clear to auscultation bilaterally, Normal air movement Cardiovascular: Regular rate/rhythm, Normal S1 S2 Gastrointestinal: Normal bowel sounds, No tenderness Musculoskeletal: No tenderness Integumentary: No rashes Neurological: Normal gait, Normal speech, Normal strength at 5/5 x4 extr, Normal tone, Normal affect Lymphatics: No axilla or inguinal lymphadenopathy - Studies Laboratory Data (last 24 hrs) 03/02/19 05:58: Sodium 141, Potassium 4.8, BUN 15, Creatinine 0.57, Glucose 122 H 03/01/19 15:11: Potassium 3.9 - Diagnosis (Problem(s)) (1) Acute and chronic respiratory failure Current Visit: Yes Status: Resolved Qualifiers: Respiratory failure complication: hypercapnia Qualified Code(s): J96.22 - Acute and chronic respiratory failure with hypercapnia (2) COPD exacerbation Current Visit: Yes Status: Resolved (3) GERD (gastroesophageal reflux disease) Current Visit: No Status: Chronic Qualifiers: Esophagitis presence: esophagitis presence not specified Qualified Code(s) : K21.9 - Gastro-esophageal reflux disease without esophagitis (4) History of abdominal aortic aneurysm (AAA) repair Current Visit: No Status: Chronic (5) Hyperlipidemia Current Visit: No Status: Chronic Qualifiers: Hyperlipidemia type: unspecified Qualified Code(s): E78.5 - Hyperlipidemia , unspecified (6) Hypertension Current Visit: No Status: Chronic Qualifiers: Hypertension type: essential hypertension Qualified Code(s): I10 - Essential (primary) hypertension Treatment Summary: OVERALL DURING THE HOSPITAL STAY PATIENT REMAINED STABLE PATIENT WAS INITIALLY ADMITTED TO THE HOSPITAL FOR ACUTE ON CHRONIC RESPIRATORY FAILURE WAS FOUND TO HAVE COPD EXACERBATION WELL. PATIENT WAS STARTED ON DUO NEBS, STEROIDS, OXYGEN. PATIENT HAD MARKED IMPROVEMENT IN HER SYMPTOMS. PATIENT WAS WEANED OFF OF OXYGEN SUCCESSFULLY. PULMONOLOGY WAS CONSULTED. WHO AGREED WITH THE PLAN. PATIENT THEN WAS DISCHARGED HOME UNDER STABLE CONDITION WHEN SHE WAS ABLE TO BE WEANED OFF OF OXYGEN AMBULATE AND TOLERATE HER DIET WELL. PATIENT WAS FEELING MUCH BETTER THAN BEFORE AND THUS WAS DISCHARGED HOME UNDER STABLE CONDITION. - Disposition Disposition: ROUTINE DISCHARGE Condition: GOOD Diet: Regular Activity: Ad nikky
== END 2019-03-02 11:32 | disposition home or self-care (01) | DRG 189 ==
LOC: ER 18:05 → ERHOLD 22:30 → 2ND 23:01 → OBSVTOIN 03-02 09:09
PROVIDERS: ADMIT Internal Medicine; ATTEND Family Medicine
DX: J96.22 Acute and chronic respiratory failure with hypercapnia (principal); J44.1 Chronic obstructive pulmonary disease with (acute) exacerbation; F41.8 Other specified anxiety disorders; I10 Essential (primary) hypertension; E78.5 Hyperlipidemia, unspecified; K21.9 Gastro-esophageal reflux disease without esophagitis; Z79.52 Long term (current) use of systemic steroids; Z87.891 Personal history of nicotine dependence
CPT/HCPCS: 36415; 71045; 71275; 80048; 80076; 81003; 82805; 83735; 83880; 84132; 84484; 85025; 85610; 93005; 94640; 96374; 99285; G0378; J1650; J2920; J2930; J7512; J7605; Q9967

== ENCOUNTER 2019-06-13 08:29 | Day surgery (SDC) | payer BC ==
[2019-06-13 09:48] VITALS: BMI 24.4
[2019-06-13 09:49] LABS: MPV 7.7 fL (7.6-11.3)
[2019-06-13 09:53] LABS: Protime INR 0.9
[2019-06-13] MEDS ORDERED: DIAZEPAM 5 MG TABLET ONE (10:01)
--- NOTE | 2019-06-13 11:52 | RAD REPORT ---
EXAM DESCRIPTION: RAD - Myelography Lumbar - 06/13/2019 11:29 am CLINICAL HISTORY: M54.5 COMPARISON: Myelography Lumbar dated 08/15/2017 TECHNIQUE: The procedure, risks and alternatives to the procedure were discussed with the patient in detail. After answering all questions, both oral and written consent were obtained. Time-out procedu re was performed. The patient was placed in an oblique prone position on the fluoroscopic table. The skin of the lower back was prepped and draped in the usual sterile fashion. After anesthetizing the skin and deeper sof t tissues with 1% lidocaine, a 22 gauge needle was advanced into the thecal sac at the L3 level. Following confirmation of CSF returned, approximately 10 cc of Isovue 200M was injected into the suba rachnoid space. Patient was then transferred to the CT for dedicated CT lumbar myelography, separatel y reported. At the conclusion of the procedure the needle was withdrawn and a sterile bandage placed over the pun cture site. The patient tolerated the procedure well without immediate complications. Total fluoro time: 2.3 minutes Images obtained: 10 IMPRESSION: Successful fluoroscopic guided lumbar puncture hand contrast injection for CT lumbar mye logram. CT lumbar myelogram is separately reported.
--- NOTE | 2019-06-13 12:10 | RAD REPORT ---
EXAM DESCRIPTION: CT - Spine Lumbar Wo Con - 06/13/2019 11:35 am CLINICAL HISTORY: Radiculopathy. M54.16,M54.17,M48.062 COMPARISON: Spine Lumbar Wo Con dated 08/15/2017 TECHNIQUE: Axial CT imaging of the lumbar spine was performed as a CT lumbar myelogram. High-resolut ion disc space images were obtained. Fluoroscopically guided lumbar puncture for myelographic contras t injection is separately reported. All CT scans are performed using dose optimization technique as appropriate and may include automated exposure control or mA/KV adjustment according to patient size. FINDINGS: Hardware construct is present spanning L3-S1 demonstrating no evidence of loosening or inf ection. Mild superior endplate compression deformity is present affecting L3, chronic in appearance w ith loss of vertebral body height is estimated at 15%. The interpeduncular screws at this level may p artially breech. Benign the compressed superior endplate. Posterior laminectomy is present spanning the L3-5 levels. A cystic lesion is seen along the ventral aspect of canal from the level of the inferior endplate of L2 to the inferior endplate of L3, measuri ng 25 x 13 x 9 mm (CC x AP x T). The cystic structure is noted to contain small amount of intrathecal contrast. The lesion narrows the central canal moderately along the right. The findings favor acquir ed spinal arachnoid cyst. No significant canal stenosis seen elsewhere. No aggressive marrow lesion identified. An endograft is present in the abdominal aorta. IMPRESSION: Acquired spinal arachnoid cyst (25 x 13 x 9 mm) is suspected along the ventral right asp ect of the canal predominately at the L3 level as detailed. This results in moderate canal narrowing at this level. Hardware construct is noted spanning L3-S1. Superior compression deformity of L3 is noted with distal superior margins of the interpeduncular screws at this level partially protruding beyond the sofia sed superior endplate.
[2019-06-13 12:16] LABS: Platelet Estimate ADEQ
[2019-06-13 15:00] VITALS: BP 81/65; TEMP 97.1; O2SAT 93
== END 2019-06-13 14:45 | disposition home or self-care (01) ==
LOC: DS 08:29
PROVIDERS: ATTEND Orthopaedic Surgery Orthopaedic Surgery of the Spine
DX: M54.5 Low back pain (principal); M54.2 Cervicalgia; M96.1 Postlaminectomy syndrome, not elsewhere classified; M54.16 Radiculopathy, lumbar region; M54.17 Radiculopathy, lumbosacral region; M48.062 Spinal stenosis, lumbar region with neurogenic claudication; M75.41 Impingement syndrome of right shoulder; Z68.27 Body mass index [BMI] 27.0-27.9, adult
CPT/HCPCS: 36415; 85049; 85610; 85730; 72131; 62304; Q9966

== ENCOUNTER 2019-08-31 13:32 | Emergency (ER) | payer BC ==
--- OUTSIDE RECORDS SUMMARY | 2019-08-31 13:38 | XMS REPORT ---
:1955 [facility] Address [address] [place] [address] Care Team Providers Name Role Phone KARL RUSSELL Unavailable Unavailable Payers Payer Name Policy Type Policy Number Effective Date Expiration Date Problems This patient has no known problems. Allergies, Adverse Reactions, Alerts Allergy Allergy Status Severity Reaction(s) Onset Inactive Treating Comments Name Type Date Date Clinician No Known DA Active U 2018-12 Allergies - 00:00:0 0 No Known DA Active U 2018-11 Allergies -20 00:00:0 0 No Known DA Active U [...] # (test code=NRBC#) 0.00 K/mm3 0.0-0.1 WBC [id number] 11:16:00 Test Item Value Reference Range Comments [...] (test code=PLTMORPH) NORMAL NORMAL - XR CHEST [id number] 08:27:00 Patient Name: MOISÉS CANNON Unit No: [id number] EXAMS: CPT CODE: [id number] XR CHEST 1V 36415 EXAMINATION: - XR CHEST 1V. LOCATION: B2. [...] Wagoner MD CC: Chito Hanson MD Technologist: RT Luc(R) Transcrpt Date/Tm/Trnsp: 12/19/2018 (826) t.[email or web address].PR7 Orig Print D/T: S: 12/19/2018 (829) [facility] NAME: MOISÉS CANNON [address] PHYS: [place] [address] : 1955 AGE: 63 SEX: F LOC: Z.SI04 A PHONE #: [phone] EXAM DATE: 12/19/2018 STATUS: ADM IN FAX #: [phone] RADIOLOGY NO: PAGE 1 Signed ReportBASIC METABOLIC [id number] 06:07:00 Test Item Value Reference Range Comments [...] 0.52-1.04 CALCIUM (test code=CA) 9.2 MG/DL 8.4-10.2 [id number] 06:07:00 Test Item Value Reference Range Comments MAGNESIUM (test code=MAG) 2.0 MG/DL 1.6-2.3 CBC W/O [id number] 05:55:00 Test Item Value Reference Range Comments [...] # (test code=NRBC#) 0.00 K/mm3 0.0-0.1 WBC [id number] 05:55:00 Test Item Value Reference Range Comments RBC MORPHOLOGY REQUIRED (test code=RBCM) TOTAL CELLS COUNTED (test code=TCC) #CELLS SEGMENTED NEUTROPHILS (test code=SEG) % 36.2-73.8 LYMPHOCYTE (test code=LYMPH) % 12.9-45.1 MONOCYTE (test code=MON) % 0-11 PLATELET ESTIMATE (test code=PLTEST) ADEQUATE PLATELET MORPHOLOGY (test code=PLTMORPH) NORMAL CBC W/AUTO [id number] 05:55:00 Test Item Value Reference Range Comments [...] # (test code=NRBC#) 0.00 K/mm3 0.0-0.1 WBC [id number] 05:55:00 Test Item Value Reference Range Comments RBC MORPHOLOGY REQUIRED (test code=RBCM) TOTAL CELLS COUNTED (test code=TCC) #CELLS SEGMENTED NEUTROPHILS (test code=SEG) % 36.2-73.8 LYMPHOCYTE (test code=LYMPH) % 12.9-45.1 MONOCYTE (test code=MON) % 0-11 PLATELET ESTIMATE (test code=PLTEST) ADEQUATE PLATELET MORPHOLOGY (test code=PLTMORPH) NORMAL - XR CHEST [id number] 13:33:00 Patient Name: MOISÉS CANNON Unit No: [id number] EXAMS: CPT CODE: [id number] XR CHEST 1V 08217 Chest Radiograph History: RIGHT CHEST TUBE REMOVAL [...] MD CC: Chito Hanson MD; Oumou Stanley OBJECTIVE C DEVELOPER Technologist: Jo-Ann Hall (RT) Transcrpt Date/Tm/Trnsp: 12/18/2018 (8363) t.DEBBI.PMT Orig Print D/T: S: 12/18/2018 (9227) [facility] NAME: MOISÉS CANNON[address] PHYS: [place] [address] : 09/1954 AGE: 63 SEX: F LOC: Z.SI04 A PHONE #: [phone] EXAM DATE: STATUS: ADM IN FAX #: [phone] RADIOLOGY NO: PAGE 1 Signed ReportCBC W/O [id number] 09:20: 00 Test Item Value Reference Range [...] # (test code=NRBC#) 0.00 K/mm3 0.0-0.1 WBC [id number] 09:20:00 Test Item Value Reference Range Comments [...] (test code=PLTMORPH) NORMAL NORMAL - XR CHEST [id number] 08:19:00 Patient Name: MOISÉS CANNON Unit No: [id number] EXAMS: CPT CODE: [id number] XR CHEST 1V 45183 EXAMINATION: - XR CHEST 1V. LOCATION: B2. [...] Maryjane Giles RT(R) Transcrpt Date/Tm/Trnsp: 12/18/2018 (818) t.ANYAR.PR7 Orig Print D/T: S: 12/18/2018 (821) [facility] NAME: MOISÉS CANNON [address] PHYS: [place] [address] : 1955 AGE: 63 SEX: F LOC: Z.SI04 A PHONE #: [phone] EXAM DATE: STATUS: ADM IN FAX #: [phone] RADIOLOGY NO: PAGE 1 Signed ReportBASIC METABOLIC [id number] 05:44:00 Test Item Value Reference Range [...] 0.52-1.04 CALCIUM (test code=CA) 8.8 MG/DL 8.4-10.2 [id number] 05:44:00 Test Item Value Reference Range Comments MAGNESIUM (test code=MAG) 1.9 MG/DL 1.6-2.3 CBC W/O [id number] 05:30:00 Test Item Value Reference Range Comments [...] # (test code=NRBC#) 0.00 K/mm3 0.0-0.1 WBC [id number] 05:30:00 Test Item Value Reference Range Comments RBC MORPHOLOGY REQUIRED (test code=RBCM) TOTAL CELLS COUNTED (test code=TCC) #CELLS SEGMENTED NEUTROPHILS (test code=SEG) % 36.2-73.8 LYMPHOCYTE (test code=LYMPH) % 12.9-45.1 MONOCYTE (test code=MON) % 0-11 PLATELET ESTIMATE (test code=PLTEST) ADEQUATE PLATELET MORPHOLOGY (test code=PLTMORPH) NORMAL CBC W/AUTO [id number] 05:30:00 Test Item Value Reference Range Comments [...] # (test code=NRBC#) 0.00 K/mm3 0.0-0.1 WBC [id number] 05:30:00 Test Item Value Reference Range Comments RBC MORPHOLOGY REQUIRED (test code=RBCM) TOTAL CELLS COUNTED (test code=TCC) #CELLS SEGMENTED NEUTROPHILS (test code=SEG) % 36.2-73.8 LYMPHOCYTE (test code=LYMPH) % 12.9-45.1 MONOCYTE (test code=MON) % 0-11 PLATELET ESTIMATE (test code=PLTEST) ADEQUATE PLATELET MORPHOLOGY (test code=PLTMORPH) NORMAL CBC W/O [id number] 09:18:00 Test Item Value Reference Range Comments [...] # (test code=NRBC#) 0.00 K/mm3 0.0-0.1 WBC [id number] 09:18:00 Test Item Value Reference Range Comments [...] (test code=PLTMORPH) NORMAL NORMAL - XR CHEST [id number] 08:48:00 Patient Name: MOISÉS CANNON Unit No: [id number] EXAMS: CPT CODE: [id number] XR CHEST 1V 64180 REASON FOR EXAM: Chest tube, lung lesion, [...] Giles, RT( R) Transcrpt Date/Tm/Trnsp: 12/17/2018 (0848) t.ANYAR.RCM Orig Print D/T: S: 12/17/2018 (8402) [facility] NAME: MOISÉS CANNON [address] PHYS: [place] [address] : 1955 AGE: 63 SEX: F LOC: Z.SI04 A PHONE #: [phone] EXAM DATE: 12/17/2018 STATUS: ADM IN FAX #: [phone] RADIOLOGY NO: PAGE 1 Signed ReportBASIC METABOLIC [id number] 05:48:00 Test Item Value Reference Range Comments [...] 0.52-1.04 CALCIUM (test code=CA) 8.6 MG/DL 8.4-10.2 [id number] 05:48:00 Test Item Value Reference Range Comments MAGNESIUM (test code=MAG) 2.0 MG/DL 1.6-2.3 PROTHROMBIN [id number] 05:37:00 Test Item Value Reference Range Comments [...] systemic embolism. 3.0 - 4.5 CBC W/O [id number] 05:18:00 Test Item Value Reference Range Comments [...] # (test code=NRBC#) 0.00 K/mm3 0.0-0.1 WBC [id number] 05:18:00 Test Item Value Reference Range Comments RBC MORPHOLOGY REQUIRED (test code=RBCM) TOTAL CELLS COUNTED (test code=TCC) #CELLS SEGMENTED NEUTROPHILS (test code=SEG) % 36.2-73.8 LYMPHOCYTE (test code=LYMPH) % 12.9-45.1 MONOCYTE (test code=MON) % 0-11 PLATELET ESTIMATE (test code=PLTEST) ADEQUATE PLATELET MORPHOLOGY (test code=PLTMORPH) NORMAL CBC W/AUTO [id number] 05:18:00 Test Item Value Reference Range Comments [...] # (test code=NRBC#) 0.00 K/mm3 0.0-0.1 WBC [id number] 05:18:00 Test Item Value Reference Range Comments RBC MORPHOLOGY REQUIRED (test code=RBCM) TOTAL CELLS COUNTED (test code=TCC) #CELLS SEGMENTED NEUTROPHILS (test code=SEG) % 36.2-73.8 LYMPHOCYTE (test code=LYMPH) % 12.9-45.1 MONOCYTE (test code=MON) % 0-11 PLATELET ESTIMATE (test code=PLTEST) ADEQUATE PLATELET MORPHOLOGY (test code=PLTMORPH) NORMAL - XR CHEST [id number] 07:05:00 Patient Name: MOISÉS CANNON Unit No: [id number] EXAMS: CPT CODE: [id number] XR CHEST 1V 08951 Single View Chest. Location: B2 Clinical Indication: [...] M.D. CC: Chito Hanson MD Technologist: Jericho I. Bates, RT(R) Transcrpt Date/Tm/Trnsp: 12/16/2018 (704) JuanRB24 Orig Print D/T: S: 12/16/2018 (707) [facility] Alessandro NAME: MOISÉS CANNON [address] PHYS: [place] [address] : 1955 AGE: 63 SEX: F LOC: Z.SI04 A PHONE #: [phone] EXAM DATE: 12/16/2018 STATUS: ADM IN FAX #: [phone] RADIOLOGY NO: PAGE 1 Signed ReportBASIC METABOLIC [id number] 06:21:00 Test Item Value Reference Range Comments [...] 0.52-1.04 CALCIUM (test code=CA) 9.0 MG/DL 8.4-10.2 [id number] 06:21:00 Test Item Value Reference Range Comments MAGNESIUM (test code=MAG) 2.0 MG/DL 1.6-2.3 CBC W/AUTO [id number] 05:52:00 Test Item Value Reference Range Comments [...] code=NRBC#) 0.00 K/mm3 0.0-0.1 - XR CHEST [id number] 05:42:00 Patient Name: MOISÉS CANNON Unit No: [id number] EXAMS: CPT CODE: [id number] XR CHEST 1V 07986 Location: U19. CHEST, FRONTAL VIEW HISTORY: SUBQ [...] CC: Chito Hanson MD Technologist : Jericho Bates, RT(R) Transcrpt Date/Tm/ Trnsp: 12/15/2018 (0542) t.SDR.SP17 Orig Print D/T: S: 12/15/2018 ( 0589) [facility] NAME: MOISÉS CANNON [address] PHYS: [place] [address] : 1955 AGE: 63 SEX: F LOC: Z.SI04 A PHONE #: [phone] EXAM DATE: 12/15/2018 STATUS: ADM IN FAX #: [phone] RADIOLOGY NO: PAGE 1 Signed Report- XR CHEST [id number] 08:24:00 Patient Name: MOISÉS CANNON Unit No: [id number] EXAMS: CPT CODE: [id number] XR CHEST 1V 50905 REASON FOR EXAM: Chest tube, thoracotomy.. COMPARISON: [...] MD Technologist: Maryjane Giles, RT(R) Transcrpt Date/Tm/Trnsp: 12/14/2018 (0824) Ayleen Orig Print D/T: S: 12/14/2018 (0827) [facility] Alessandro NAME: MOISÉS CANNON [address] PHYS: [place] [address] : 1955 AGE: 63 SEX: F LOC: Z.SI04 A PHONE #: [phone] EXAM DATE : 12/14/2018 STATUS: ADM IN FAX #: [phone] NO: PAGE 1 Signed ReportBASIC METABOLIC [id number] 07:39 :00 Test Item Value Reference Range [...] 0.52-1.04 CALCIUM (test code=CA) 8.6 MG/DL 8.4-10.2 [id number] 07:39:00 Test Item Value Reference Range Comments MAGNESIUM (test code=MAG) 2.0 MG/DL 1.6-2.3 CBC W/AUTO [id number] 07:24:00 Test Item Value Reference Range Comments [...] RBC # (test code=NRBC#) 0.00 K/mm3 0.0-0.1 [id number] 11:49:00 Test Item Value Reference Range Comments POTASSIUM (test code=K) 3.7 MMOL/L 3.5-5.1 - XR CHEST [id number] 07:42:00 Patient Name: MOISÉS CANNON Unit No: [id number] EXAMS: CPT CODE: [id number] XR CHEST 1V 01629 EXAMINATION: - XR CHEST 1V. LOCATION: B2. [...] MD Technologist: Maryjane Giles RT(R) Transcrpt Date/Tm/Trnsp: 12/13/2018 (0742) t.SDR.PR7 Orig Print D/T: S: (0745) [facility] NAME : MOISÉS CANNON [address] PHYS: [place] [address] : 1954 AGE: 63 SEX: F LOC: Z.SI04 A PHONE #: [phone] EXAM DATE: STATUS: ADM IN FAX #: [phone] RADIOLOGY NO: PAGE 1 Signed ReportTB TEST [id number] 07:32: 00 Test Item Value Reference Range Comments TB TEST IGRA (test code=TBTEST) Negative Negative BASIC METABOLIC [id number] 05:53:00 Test Item Value Reference Range Comments [...] 0.52-1.04 CALCIUM (test code=CA) 8.7 MG/DL 8.4-10.2 [id number] 05:53:00 Test Item Value Reference Range Comments MAGNESIUM (test code=MAG) 1.8 MG/DL 1.6-2.3 CBC W/AUTO [id number] 05:35:00 Test Item Value Reference Range Comments [...] code=NRBC#) 0.00 K/mm3 0.0-0.1 - XR CHEST [id number] 08:38:00 Patient Name: MOISÉS CANNON Unit No: [id number] EXAMS: CPT CODE: [id number] XR CHEST 1V 84899 REASON FOR EXAM: Lung tumor resection. COMPARISON: [...] Maryjane Giles RT(R) Transcrpt Date/Tm/Trnsp: 12/12/2018 (0838) tFRANCISCO Orig Print D/T: S: 12/12/2018 (0841) [facility] NAME: MOISÉS CANNON [address] PHYS: [place] [address] : 1955 AGE: 63 SEX: F LOC: Z.SI04 A PHONE #: [phone] EXAM DATE: 12/12/2018 STATUS: ADM IN FAX #: [phone] RADIOLOGY NO: PAGE 1 Signed ReportAB [id number] 07:36:00 Test Item Value Reference Range Comments AB COCCIDIOIDES (test code=COCCIAB) <0.150 < 1:2 BASIC METABOLIC [id number] 05:56:00 Test Item Value Reference Range Comments [...] 0.52-1.04 CALCIUM (test code=CA) 8.7 MG/DL 8.4-10.2 [id number] 05:56:00 Test Item Value Reference Range Comments MAGNESIUM (test code=MAG) 1.9 MG/DL 1.6-2.3 CBC W/AUTO [id number] 05:42:00 Test Item Value Reference Range Comments [...] (test code=NRBC#) 0.00 K/mm3 0.0-0.1 AG HISTOPLASMA [id number] 07:26:00 Test Item Value Reference Range Comments AG HISTOPLASMA UA (test code=HISUAAG) <0.5 EIA unit <0.5 ng/mL - XR CHEST [id number] 06:56:00 Patient Name: MOISÉS CANNON Unit No: [id number] EXAMS: CPT CODE: [id number] XR CHEST 1V 72120 Location: U19. CHEST, FRONTAL VIEW HISTORY: S/P [...] MD Technologist: Maryjane Giles, RT(R) Transcrpt Date/Tm/Trnsp: 12/11/2018 (0656) JuanSP17 OrigPrint D/T: S: 12/11/2018 (0700) [facility] NAME: MOISÉS CANNON [address] PHYS: [place] [address] : 1955 AGE: 63 SEX: F LOC: Z.SI04 A PHONE #: [phone] EXAM DATE: 12/11/2018 STATUS: ADM IN FAX #: [phone] RADIOLOGY NO: PAGE 1 Signed ReportBASIC METABOLIC [id number] 05:46:00 Test Item Value Reference Range Comments [...] 0.52-1.04 CALCIUM (test code=CA) 8.7 MG/DL 8.4-10.2 [id number] 05:46:00 Test Item Value Reference Range Comments MAGNESIUM (test code=MAG) 1.9 MG/DL 1.6-2.3 CBC W/AUTO [id number] 05:28:00 Test Item Value Reference Range Comments [...] (test code=NRBC#) 0.00 K/mm3 0.0-0.1 BASIC METABOLIC [id number] 05:54:00 Test Item Value Reference Range Comments [...] (test code=CA) 8.7 MG/DL 8.4-10.2 CBC W/AUTO [id number] 05:35:00 Test Item Value Reference Range Comments [...] (test code=NRBC#) 0.00 K/mm3 0.0-0.1 BASIC METABOLIC [id number] 06:18:00 Test Item Value Reference Range Comments [...] (test code=CA) 8.5 MG/DL 8.4-10.2 CBC W/AUTO [id number] 05:48:00 Test Item Value Reference Range Comments [...] code=NRBC#) 0.00 K/mm3 0.0-0.1 - XR CHEST [id number] 11:16:00 Patient Name: MOISÉS CANNON Unit No: [id number] EXAMS: CPT CODE: [id number] XR CHEST 1V 01290 Site ID: [id number] HISTORY: Subcutaneous emphysema, right [...] Hanson MD; Chris Rivera MD Technologist: Maksim Gonzales RT(R) Transcrpt Date/Tm/Trnsp: 2018 (1116) JuanAJP6 Orig Print D/T: S: 12/08/2018 (1119) [facility] NAME: MOISÉS CANNON [address] PHYS: [place] [address] : 1955 AGE: 63 SEX: F LOC: Z.SI04 A PHONE #: [phone] EXAM DATE: 12/08/2018 STATUS: ADM IN FAX #: [phone] NO: PAGE 1 Signed [id number] 08:28:00 Test Item Value Reference Range Comments MAGNESIUM (test code=MAG) 2.0 MG/DL 1.6-2.3 - XR CHEST [id number] 07:15:00 Patient Name: MOISÉS CANNON Unit No: [id number] EXAMS: CPT CODE: [id number] XR CHEST 1V 93454 Location of dictation: B2 Portable chest one [...] Renee (RT) (R) Transcrpt Date/Tm/Trnsp: 12/08/2018 (0715) Marlena.PX Orig Print D/T: S: (0718) [facility] Alessandro NAME: MOISÉS CANNON [address] PHYS: [place] [address] : 1954 AGE: 63 SEX: F LOC: Z.SI04 A PHONE #: [phone] EXAM DATE: STATUS: ADM IN FAX #: [phone] RADIOLOGY NO: PAGE 1 Signed Report- XR CHEST [id number] 07:08: 00 Patient Name: MOISÉS CANNON Unit No: [id number] EXAMS: CPT CODE: [id number] XR CHEST 1V 50565 Location of dictation: B2 Portable chest one [...] Jericho Bates, RT(R) Transcrpt Date/Tm/Trnsp: 12/08/2018 (0708) Marlena.PX Orig Print D/T: S: 12/08/2018 (0711) [facility] Alessandro NAME: MOISÉS CANNON [address] PHYS: [place] [address] : 1955 AGE: 63 SEX: F LOC: Z.SI04 A PHONE #: [phone] EXAM DATE: STATUS: ADM IN FAX #: [phone] RADIOLOGY NO: PAGE 1 [facility]LO[facility] [id number] 07:01:00 Test Item Value Reference Range Comments POC ARTERIAL BLOOD GAS PH (test code=POCPHA) 7.382 7.35-7.45 POC ARTERIAL BLOOD GAS PCO2 (test 51.4 mmHg 35.0-45.0 code=PIFDWU2D) POC ARTERIAL BLOOD GAS PO2 (test 82 75.0-100.0 code=HLTUY9Q) POC HCO3 ARTERIAL (test code=KRYENI5G) 30.5 MMOL/L 20.0-26.0 POC BASE EXCESS (test code=POCBEA) 5.0 MMOL/L -3.0-3.0 POC O2 SATURATION (test code=POCO2S) 96 % 92.0-98.5 FIO2 (test code=FIO2A) 40 % 21-100 ABG DELIVERY (test code=MARCUS) N/C ABG SITE (test code=SITEA) R Brachial ALLENS TEST (test code=ALLENS) N/A CHECK Ntlucy/RBV~ PROTHROMBIN [id number] 06:11:00 Test Item Value Reference Range Comments [...] recurrent systemic embolism. 3.0 - 4.5 PTT [id number] 06:11:00 Test Item Value Reference Range Comments PTT ACTIVATED (test code=APTT) 23.2 SECONDS 22.0-33.0 BASIC METABOLIC [id number] 06:09:00 Test Item Value Reference Range Comments [...] (test code=CA) 9.0 MG/DL 8.4-10.2 CBC W/AUTO [id number] 05:57:00 Test Item Value Reference Range Comments [...] (test code=NRBC#) 0.00 K/mm3 0.0-0.1 BASIC METABOLIC [id number] 12:08:00 Test Item Value Reference Range Comments [...] CALCIUM (test code=CA) 8.8 MG/DL 8.4-10.2 PROTHROMBIN [id number] 12:01:00 Test Item Value Reference Range Comments [...] recurrent systemic embolism. 3.0 - 4.5 PTT [id number] 12:01:00 Test Item Value Reference Range Comments PTT ACTIVATED (test code=APTT) 24.1 SECONDS 21.0-33.0 CBC W/AUTO [id number] 11:49:00 Test Item Value Reference Range Comments [...] code=NRBC#) 0.00 K/mm3 0.0-0.1 - XR CHEST [id number] 08:32:00 Patient Name: MOISÉS CANNON Unit No: [id number] EXAMS: CPT CODE: [id number] XR CHEST 1V 80502 Location of dictation: B2 Portable chest one [...] MD Technologist: Maryjane Giles RT(R) Transcrpt Date/Tm/Trnsp: 2018 (0832) Marlena.PXC Orig Print D/T: S: 12/07/2018 (0835) [facility] NAME: MOISÉS CANNON [address] PHYS: [place] [address] : 1955 AGE: 63 SEX: F LOC: Z.SI04 A PHONE #: [phone] EXAM DATE: 12/07/2018 STATUS: ADM IN FAX #: [phone] RADIOLOGY NO: PAGE 1 Signed Report- XR CHEST [id number] 07:52:00 Patient Name: MOISÉS CANNON Unit No: [id number] EXAMS: CPT CODE: [id number] XR CHEST 1V 46781 Location of dictation: B2 Portable chest one [...] M.D. CC: Chito Hanson MD Technologist: Maryjane Giles, RT(R) Transcrpt Date/Tm/Trnsp : 12/06/2018 (0752) t.ANYAR.PXC Orig Print D/T: S: 12/06/2018 (0755 ) [facility] NAME: MOISÉS CANNON [address] PHYS: [place] [address] : 1955 AGE: 63 SEX: F LOC: Z.SI04 A PHONE #: [phone] EXAM DATE: 12/06/2018 STATUS: ADM IN FAX #: [phone] RADIOLOGY NO: PAGE 1 Signed ReportBASIC METABOLIC [id number] 05:28:00 Test Item Value Reference Range Comments [...] 0.52-1.04 CALCIUM (test code=CA) 9.1 MG/DL 8.4-10.2 [id number] 05:28:00 Test Item Value Reference Range Comments MAGNESIUM (test code=MAG) 2.0 MG/DL 1.6-2.3 CBC W/AUTO [id number] 05:05:00 Test Item Value Reference Range Comments [...] RBC # (test code=NRBC#) 0.00 K/mm3 0.0-0.1 [id number] 16:13:00 RUN DATE: 12/05/18 [facility] - [facility] PAGE 1 RUN TIME: 1614 Specimen Inquiry RUN USER: INTERFACE PATIENT: MOISÉS CANNON LOC: LAURA U #: [id number] AGE/SX: 63/F ROOM: [facility] RE11/30/18[facility] DR: Chris Rivera MD : 55 BED: A DIS: STATUS: ADM IN TLOC: SPEC #: [id number] RECD: 03/ STATUS: SOUT REQ #: [id number] PAOLA: 11/30/18 [facility] DR: Chris Rivera MD ENTERED: 11/30/18 SP TYPE: LUNG OTHR DR: Chito Hanson MD ORDERED: SURG PATH LVL 5/2, FS, AFB/2, GMS/2, TOUCH PREP EA A CODES: [id number] A17550 - BRONCHUS OF RIG BIOPSY, NOS C41676 I85978 - BRONCHUS OF RIG INFLAMMATION, N R78448 A05773 - BRONCHUS OF RIG GRANULOMATOUS I E63469 D80239 - BRONCHUS OF RIG NECROTIZING GRA D99097 L16593 - BRONCHUS OF RIG NECROSIS, NOS [id number] - BRONCHUS OF RIG DYSPLASIA, NOS U21534 - LUNG, NOS YG4589 V72370 - BODY TISSUE, NO EMPHYSEMA, NOS QE1738 H19788 - BODY TISSUE , NO DYSPLASIA, NOS COPIES TO: Chito Hanson MD [address] [place] [address] [address] [place] [id number] [email or web address] [place] [address] [facility].[address] [place] [address] PROCEDURES: SURG PATH LVL 5 (11/30/18-1835) FS (11/30/18) AFB (-1121) GMS (12/05/18-1121) TOUCH PREP EA A (12/05/18 -1117) TISSUES: A. LUNG, NOS - RUL TISSUE B. LUNG, NOS - RT UPPER LOBE BULLAE CLINICAL HISTORY LUNG LESION CPT CODES CPT CODE(S): 50531Q1 , 71643 , 85818 , 42540W8 , , , CONTINUED ON NEXT PAGE RUN DATE: [facility] PAGE 2 RUN TIME: 1614 Specimen Inquiry RUN USER: INTERFACE SPEC #: [id number] PATIENT: MOISÉS CANNON #[id number] ( Continued) FINAL DIAGNOSIS A. Lung, right [...] x 1.3 cm. The nodule is well-circumscribed. Rig Mechanic sections of nodule submitted for frozen section [...] or malignancy. /paula Signed SIGNATURE ON FILE Chris FrankCourtney 12/05/18 1613 END OF REPORT - XR CHEST [id number] 08:14:00 Patient Name: MOISÉS CANNON Unit No: [id number] EXAMS: CPT CODE: [id number] XR CHEST 1V 60424 Location of dictation: B2 Portable chest one [...] MD Technologist: Maryjane Giles RT(R) Transcrpt Date/Tm/Trnsp: 12/05/2018(0814) [email or web address] Orig Print D /T: S: 12/05/2018 (0817) [facility] NAME: MOISÉS CANNON [address] PHYS: [place] [address] : 1954 AGE: 63 SEX: F LOC: Z.SI04 A PHONE #: [phone] EXAM DATE: STATUS: ADM IN FAX #: [phone] RADIOLOGY NO: PAGE 1 Signed ReportBASIC METABOLIC [id number] 06:36 :00 Test Item Value Reference Range [...] 0.52-1.04 CALCIUM (test code=CA) 9.0 MG/DL 8.4-10.2 [id number] 06:36:00 Test Item Value Reference Range Comments MAGNESIUM (test code=MAG) 1.9 MG/DL 1.6-2.3 CBC W/AUTO [id number] 06:20:00 Test Item Value Reference Range Comments [...] (test code=NRBC#) 0.00 K/mm3 0.0-0.1 BASIC METABOLIC [id number] 21:07:00 Test Item Value Reference Range Comments [...] 0.52-1.04 CALCIUM (test code=CA) 9.0 MG/DL 8.4-10.2 [id number] 21:07:00 Test Item Value Reference Range Comments MAGNESIUM (test code=MAG) 1.8 MG/DL 1.6-2.3 ARTERIAL BLOOD [id number] 20:51:00 Test Item Value Reference Range Comments [...] FIO2 (test code=COHBGFFIO2) 36 % GLUCOSE BEDSIDE [id number] 14:59:00 Test Item Value Reference Range Comments GLUCOSE BEDSIDE TEST NOT PERFORMED 60-99 Previously reported TESTING (test MG/DL result: 55 MG/DLEdited code=GLUBED) by: MARISATQL on 12/04/18:02505112/04/18 1457: GLU BED previously reported as: 55 L MG/DL GLUCOSE BEDSIDE [id number] 13:35:00 Test Item Value Reference Range Comments GLUCOSE BEDSIDE TESTING (test code=GLUBED) 55 MG/DL 60-99 CALCIUM [id number] 12:44:00 Test Item Value Reference Range Comments CALCIUM IONIZED (test code=BABAK) 1.11 MMOL/L 1.12-1.30 PROTHROMBIN [id number] 10:01:00 Test Item Value Reference Range Comments [...] systemic embolism. 3.0 - 4.5 Comments to Bottom Stop Attacher: nonePTT [id number] 10:01:00 Test Item Value Reference Range Comments PTT ACTIVATED (test code=APTT) 24.2 SECONDS 22.0-33.0 Comments to Bottom Stop Attacher: none- XR CHEST [id number] 09:06:00 Patient Name: MOISÉS CANNON Unit No: [id number] EXAMS: CPT CODE: [id number] XR CHEST 1V 77295 Location of dictation: B2 Portable chest one [...] Jo-Ann Hall (RT) Transcrpt Date/Tm/Trnsp: 12/04/2018 (905) [email or web address] Orig Print D/T: S: (909) [facility] NAME: MOISÉS CANNON [address] PHYS: DONY.[place] [address] : 1955 AGE: 63 SEX: F LOC: Z.SI04 A PHONE #: [phone] EXAM DATE: 12/04/2018 STATUS: ADM IN FAX #: [phone] RADIOLOGY NO: PAGE 1 Signed ReportBASIC METABOLIC [id number] 07:35:00 Test Item Value Reference Range Comments [...] 0.52-1.04 CALCIUM (test code=CA) 9.1 MG/DL 8.4-10.2 [id number] 07:35:00 Test Item Value Reference Range Comments PHOSPHOROUS (test code=PHOS) 3.7 MG/DL 2.5-4.5 [id number] 07:35:00 Test Item Value Reference Range Comments MAGNESIUM (test code=MAG) 1.9 MG/DL 1.6-2.3 CBC W/AUTO [id number] 07:25:00 Test Item Value Reference Range Comments [...] code=NRBC#) 0.00 K/mm3 0.0-0.1 - XR CHEST [id number] 18:47:00 Patient Name: MOISÉS CANNON Unit No: [id number] EXAMS: CPT CODE: [id number] XR CHEST 1V 22383 EXAM: Portable chest one view. Location code:J9 [...] Chapa RT( R) Transcrpt Date/Tm/Trnsp: 12/03/2018 ( 184) JuanRR16 Orig Print D/T: S: 12/03/2018 (185) [facility] NAME: MOISÉS CANNON [id number] PHYS: DONY[place] [address] : 1955 AGE: 63 SEX: F LOC: Z.355 A PHONE #: [phone] EXAM DATE: 12/03/2018 STATUS: ADM IN FAX #:[phone] RADIOLOGY NO: PAGE 1 Signed Report- XR CHEST [id number] 07:46:00 Patient Name: MOISÉS CANNON Unit No: [id number] EXAMS: CPT CODE: [id number] XR CHEST 1V 76615 Location of dictation: B2 Portable chest one [...] t.ANYAR.PXC Orig Print D/T: S: 12/03/2018 (0749) [facility] NAME: MOISÉS CANNON [address] PHYS: [place] [address] : 1955 AGE: 63 SEX: F LOC: Z.SI04 A PHONE #: [phone] EXAM DATE: 12/03 STATUS: ADM IN FAX #: [phone] RADIOLOGY NO: PAGE 1 Signed ReportBASIC METABOLIC [id number] 04:54:00 Test Item Value Reference Range Comments [...] 0.52-1.04 CALCIUM (test code=CA) 8.8 MG/DL 8.4-10.2 [id number] 04:54:00 Test Item Value Reference Range Comments MAGNESIUM (test code=MAG) 2.0 MG/DL 1.6-2.3 CBC W/AUTO [id number] 04:29:00 Test Item Value Reference Range Comments [...] code=NRBC#) 0.00 K/mm3 0.0-0.1 - XR CHEST [id number] 06:22:00 Patient Name: MOISÉS CANNON Unit No: [id number] EXAMS: CPT CODE: [id number] XR CHEST 1V 06941 AP VIEW OF THE CHEST LOCATION: R16 [...] Jericho Bates , RT(R) Transcrpt Date/Tm/Trnsp: 12/02/2018 (06) t.DEBBI.FRANCISL Orig Print D/T: S: 12/02/2018 (0644) [facility] NAME: MOISÉS CANNON [address] PHYS: [place] [address] : 1955 AGE: 63 SEX: F LOC: Z.SI04 A PHONE #: [phone] EXAM DATE: 12/02/2018 STATUS:ADM IN FAX #: [phone] RADIOLOGY NO: PAGE 1 Signed ReportBASIC METABOLIC [id number] 05:59:00 Test Item Value Reference Range Comments [...] 0.52-1.04 CALCIUM (test code=CA) 8.4 MG/DL 8.4-10.2 [id number] 05:59:00 Test Item Value Reference Range Comments MAGNESIUM (test code=MAG) 2.1 MG/DL 1.6-2.3 CBC W/AUTO [id number] 05:53:00 Test Item Value Reference Range Comments [...] RBC # (test code=NRBC#) 0.00 K/mm3 0.0-0.1 [id number] 21:37:00 Test Item Value Reference Range Comments POTASSIUM (test code=K) 3.2 MMOL/L 3.5-5.1 Is this a LINE draw? YBASIC METABOLIC [id number] 07:40:00 Test Item Value Reference Range Comments [...] 0.52-1.04 CALCIUM (test code=CA) 8.4 MG/DL 8.4-10.2 [id number] 07:40:00 Test Item Value Reference Range Comments MAGNESIUM (test code=MAG) 1.9 MG/DL 1.6-2.3 CBC W/AUTO [id number] 07:27:00 Test Item Value Reference Range Comments [...] code=NRBC#) 0.00 K/mm3 0.0-0.1 - XR CHEST [id number] 06:27:00 Patient Name: MOISÉS CANNON Unit No: [id number] EXAMS: CPT CODE: [id number] XR CHEST 1V 24990 Exam: Chest portable erect Location: F6 History: Post Op Thoracotomy Comparison: 11/30/2018 Findings : No change has occurred in the aeration of the lungs. The heart size is unchanged. The mediastinal silhouette is unremarkable. The bony thorax is intact. The right chest tube and right IJ line remain in place. Impression: Stable chest/no change. at 0627 Reported and signed by: Shola Duran M.D. CC: Chito Hanson MD Technologist: Jericho Bates, RT(R) Transcrpt Date/Tm/Trnsp: 12/01/2018 (626) JuanFC Orig Print D/T: S: 12/01/2018 (629) [facility] NAME: MOISÉS CANNON [address] PHYS: [place] [address] : 1955 AGE: 63 SEX: F LOC: Z.SI04 A PHONE #: [phone] EXAM DATE: 12/01/2018 STATUS: ADM IN FAX #: [phone] RADIOLOGY NO: PAGE 1 Signed ReportBASIC METABOLIC [id number] 20:46:00 Test Item Value Reference Range Comments [...] 0.52-1.04 CALCIUM (test code=CA) 8.8 MG/DL 8.4-10.2 [id number] 20:46:00 Test Item Value Reference Range Comments MAGNESIUM (test code=MAG) 1.9 MG/DL 1.6-2.3 BASIC METABOLIC [id number] 20:42:00 Test Item Value Reference Range Comments [...] 0.52-1.04 CALCIUM (test code=CA) 8.8 MG/DL 8.4-10.2 [id number] 20:42:00 Test Item Value Reference Range Comments MAGNESIUM (test code=MAG) 1.9 MG/DL 1.6-2.3 CBC W/AUTO [id number] 20:04:00 Test Item Value Reference Range Comments [...] (test code=NRBC#) 0.00 K/mm3 0.0-0.1 ARTERIAL BLOOD [id number] 19:53:00 Test Item Value Reference Range Comments [...] (test code=COHBGFFIO2) 100 % - XR CHEST [id number] 19:38:00 Patient Name: MOISÉS CANNON Unit No: [id number] EXAMS: CPT CODE: [id number] XR CHEST 1V 18923 EXAM: CHEST ONE VIEW INDICATION: Post Op [...] bilaterally. No pneumothorax is identified. LOCATION: B2 [id number] Reported and signed by: Mahi Campa MD CC: Chito Hanson MD Technologist: Jo-Ann Hall (RT) Transcrpt Date/Tm/Trnsp: 11/30/2018 (1937) 16 Orig Print D/T: S: 11/30/2018 (1940) [facility] NAME: MOISÉS CANNON [address] PHYS: [place] [address] : 1955 AGE: 63 SEX: F LOC: ZCourtneyDSU PHONE #: [phone] EXAM DATE: 11/30/2018 STATUS: REG [facility] [place] FAX #: [phone] RADIOLOGY NO: PAGE 1 Signed ReportHIV 12 AB [id number] 17:53:00 Test Item Value Reference Range Comments AB HIV 1 2 (test NON REACTIVE NON-REAC NOTE: A NONREACTIVE RESULT code=SEJ30QX) INDICATES THAT HIV-1 AND HIV-2ANTIBODIES HAVE NOT BEEN FOUND IN THIS PATIENT SPECIMEN. ANON-REACTIVE RESULT, HOWEVER, DOES NOT PRECLUDE PREVIOUSEXPOSURE OR INFECTION WITH HIV1. AG HIV1 P24 (test NON REACTIVE NONE REAC code=WGY6I94) PROTHROMBIN [id number] 15:49:00 Test Item Value Reference Range Comments [...] recurrent systemic embolism. 3.0 - 4.5 PTT [id number] 15:49:00 Test Item Value Reference Range Comments PTT ACTIVATED (test code=APTT) 23.4 SECONDS 22.0-33.0 - XR CHEST 2 [id number] 15:47:00 Patient Name: MOISÉS CANNON Unit No: [id number] EXAMS: CPT CODE: [id number] XR CHEST 2 V 10221 EXAM: CHEST 2 VIEWS INDICATION: PRE-OP COMPARISON: [...] Campa MD CC: Chito Hanson MD Technologist: FORMERLY [facility] [employer] ; Christian Villavicencio, RT(R) Transcrpt Date/Tm/Trnsp: 11/28/2018 ( 1547) 16 Orig Print D/T: S: 11/28/2018 (6362) [facility] NAME: MOISÉS CANNON[address] PHYS: [place] [address] : 1955 AGE: 63 SEX: F LOC: Z.5MU PHONE #: [phone] EXAM DATE: 11/28/2018 STATUS: PRE IN FAX #: [phone] RADIOLOGY NO: PAGE 1 Signed ReportBASIC METABOLIC [id number] 15:42:00 Test Item Value Reference Range Comments [...] (test code=CA) 9.2 MG/DL 8.4-10.2 CBC W/AUTO [id number] 15:32:00 Test Item Value Reference Range Comments [...] K/mm3 0.0-0.1 - CTA ABD PEL W [id number] 10:28:00 Patient Name: MOISÉS CANNON Unit No: [id number] Report Has Been Amended EXAMS: CPT CODE: [id number] CTA ABD PEL W CONT 47707 Addendum - 11/15/2018 SIGNED 11/15/2018 ADDENDUM: [id number] CT/CTAAPWCONTAddendum: 3-D/MIP reconstructions of the central arteries were created. Electronically Signed by Paul Simmons on 03/2019 at 1028 Reported and signed by: Chris Simmons M.D. Transcribed: 11/15/2018 (1028) aylaDEBBI.RB24 Report CTA Abdomen and Pelvis with and [...] of the aortoiliac stent graft are patent. [facility]: MOIS[facility]S CANNON [address] PHYS: [place] [address] : 1955 AGE:63 SEX: F LOC: Z.CTS PHONE #: [phone] EXAM DATE: 11/06/2018 STATUS: DEP CLI FAX #: [phone] RAD #: D/C DT PAGE 1 Signed Report (CONTINUED) Patient Name: MOISÉS CANNON Unit No: [id number] Report Has Been Amended * * EXAMS: CPT CODE: [id number] CTA ABD PEL W CONT 34268 < Continued> Bilateral external iliac arteries are [...] M.D. CC: Radha Hanson MD Technologist: Anam Bill RT(R); Kalen CTDI: DLP: Trnscrpt: 2018 (1346) t.SDR.RB24 [facility] NAME: MOISÉS CANNON [address] PHYS: [place] [address] : 1955 AGE: 63 SEX: F LOC: Z.CTS PHONE #: [phone] DATE: 11/06/2018 STATUS: DEP CLI FAX #: [phone] RAD #: D/C DT PAGE 2 Signed Report Patient Name: MOISÉS CANNON Unit No: [id number] Report Has Been Amended EXAMS: CPT CODE: [id number] CTA ABD PEL W CONT 16575 <Continued> Orig Print D/T: S: 11/06/2018 (2708) [facility] NAME: MOISÉS CANNON [address] PHYS:[place] [address] : 1955 AGE: 63 SEX: F LOC: KAYLYN PHONE #: [phone] EXAM DATE: 11/06/2018 STATUS: DEP CLI FAX #: [phone] RAD #: D/C DT PAGE 3 Signed ReportBEDSIDE [id number] 14:50:00 Test Item Value Reference Range Comments BEDSIDE CREATININE (test code=CREATBED) 0.6 MG/DL 0.6-1.4 - CT CHEST W/[id number] 14:06:00 Patient Name: MOISÉS CANNON Unit No: [id number] EXAMS: CPT CODE: [id number] CT CHEST W/CONTRAST 21631 EXAM: Chest CT with contrast Location: B2 INDICATION:Lung nodule COMPARISON: Chest x-ray on 12/21/2015 TECHNIQUE: Helical CT of the chest was performed following the administration of 100 mL Isovue-370 IV contrast. 5 mm axial and coronal and sagittal reformatted images were performed. DISCUSSION: Lungs and airways: A 14 mm rounded right upper lobe nodule is identified. This is visible on the independent living advisor film, but was not evident on the [...] pleural surface. This is visible on the independent living advisor film, and was not present on the [...] size, and/or utilization of iterative reconstruction technique. [facility] NAME: MOISÉS CANNON [address] PHYS: [place] [address] : 1955 AGE: 63 SEX: F : GarlandCTS PHONE #: [phone] EXAM DATE: 11/06/2018 STATUS: REG CLI FAX #: [phone] RAD #: D/C DT PAGE 1 Signed Report ( CONTINUED) Patient Name: MOISÉS CANNON Unit No: [id number] EXAMS: CPT CODE: [id number] CT CHEST W/CONTRAST 07609 < Continued> DLP: 1708 mGy-cm CTDI: 51 mGy at 1406 Reported and signed by: Jake Menchaca MD CC: Chito Hanson MD Technologist: Anam Bill, RT(R); Kalen CTDI: DLP: Trnscrpt: 11/06/2018 ( 1406) t.SDR.BC0 [facility] NAME: MOISÉS CANNON [address] [place] [address] : 1955 AGE: 63 SEX: F LOC: GarlandCTS PHONE #: [phone] EXAM DATE: 11/06/2018 STATUS: REG CLI FAX #: [phone] RAD #: D/C DT PAGE 2 Signed Report Patient Name: MOISÉS CANNON Unit No: [id number] EXAMS: CPT CODE: [id number] CT CHEST W/CONTRAST 14517 <Continued> Orig Print D/T: S: 11/06/2018 (0320) [facility] NAME : MOISÉS CANNON [address] PHYS: [place] [address] : 1954 AGE: 63 SEX: F LOC: Z.CTS PHONE #: [phone] EXAM DATE: 11/06/2018 STATUS: REG CLI FAX #: [phone] RAD #: D/C DT PAGE 3 Signed Report- CTA ABD PEL W [id number] 13:46:00 Patient Name: MOISÉS CANNON Unit No: [id number] EXAMS: CPT CODE: [id number] CTA ABD PEL W CONT 93875 CTA Abdomen and Pelvis with and without [...] femoral artery. 4. Interval right renal infarct. [facility] NAME: MOISÉS CANNON [address] PHYS: Chris Sky MD [place] [id number] : 1955 AGE: 63 SEX: F LOC: [employer] PHONE #: [phone] EXAM DATE: 11/06/2018 STATUS: REG CLI FAX #: [phone] RAD #: D/C DT PAGE 1 Signed Report (CONTINUED) Patient Name: MOISÉS CANNON Unit No: [id number] EXAMS: CPT CODE: [id number] CTA ABD PEL W CONT 36467 <Continued> Electronically Signed by Paul Smimons on at 1346 Reported and signed by: Chris Simmons M.D. CC: Chito Hanson MD Technologist: Anam Bill, RT(R); Kalen CTDI: DLP: Trnscrpt : 11/06/2018 (9026) tJUDAH.RB24 [facility] NAME: MOISÉS CANNON [address] PHYS : [place] [address] : 09/1954 AGE: 63 SEX: F LOC: [employer] PHONE #: [phone] EXAM DATE: STATUS: REG CLI FAX #: [phone] RAD #: D/C DT PAGE 2 Signed Report Patient Name: MOISÉS CANNON Unit No: [id number] EXAMS: CPT CODE : [id number] CTA ABD PEL WCONT 29701 <Continued> Orig Print D/T: S: 11/06/2018 (1349) [facility] NAME: MOISÉS CANNON [address] PHYS: [place] [address] : 1954 AGE: 63 SEX: F LOC: ZBELIA PHONE #: [phone] EXAM DATE: 11/06/2018 STATUS: REG CLI FAX #: [phone] RAD #: D/C DT PAGE 3 Signed ReportCBC W/PLT COUNT & AUTO [id number] 05:53:00 Test Item Value Reference Range Comments WHITE BLOOD CELL COUNT (BEAKER) (test hmtr=246) 12.3 K/ L 4.0-10.0 RED BLOOD CELL COUNT (BEAKER) (test pnwx=892) 3.32 M/ L 4.00-5.00 HEMOGLOBIN (BEAKER) (test cltj=205) 10.4 GM/DL 12.0-15.5 HEMATOCRIT (BEAKER) (test ilta=068) 33.8 % 36.0-46.0 MEAN CORPUSCULAR VOLUME (BEAKER) (test diio=911) 101.8 fL 82.0-99.0 MEAN CORPUSCULAR HEMOGLOBIN (BEAKER) (test 31.3 pg 27.0-33.0 becc=023) MEAN CORPUSCULAR HEMOGLOBIN CONC (BEAKER) (test 30.8 GM/DL 32.0-36.0 gvtl=031) RED CELL DISTRIBUTION WIDTH (BEAKER) (test 14.6 % 12.0-15.0 gulb=984) PLATELET COUNT (BEAKER) (test lvgu=876) 395 K/CU MM 150-430 MEAN PLATELET VOLUME (BEAKER) (test iumx=176) 9.7 fL 6.0-11.5 NUCLEATED RED BLOOD CELLS (BEAKER) (test 0 /100 WBC 0-0 cbho=426) NEUTROPHILS RELATIVE PERCENT (BEAKER) (test 66 % fhel=461) LYMPHOCYTES RELATIVE PERCENT (BEAKER) (test 17 % wswz=921) MONOCYTES RELATIVE PERCENT (BEAKER) (test 12 % ehqp=168) EOSINOPHILS RELATIVE PERCENT (BEAKER) (test 2 % ctrw=810) BASOPHILS RELATIVE PERCENT (BEAKER) (test 1 % nysn=016) NEUTROPHILS ABSOLUTE COUNT (BEAKER) (test 8.14 K/ L 1.80-8.00 ojzg=678) LYMPHOCYTES ABSOLUTE COUNT (BEAKER) (test 2.04 K/ L 1.48-4.50 mbkx=765) MONOCYTES ABSOLUTE COUNT (BEAKER) (test 1.46 K/ L 0.00-1.30 qjos=680) EOSINOPHILS ABSOLUTE COUNT (BEAKER) (test 0.28 K/ L 0.00-0.50 ktfp=352) BASOPHILS ABSOLUTE COUNT (BEAKER) (test 0.07 K/ L 0.00-0.20 xarv=509) IMMATURE GRANULOCYTES-RELATIVE PERCENT (BEAKER) 3 % 0-0 (test lvmh=2360) BASIC METABOLIC [id number] 05:36:00 Test Item Value Reference Range Comments SODIUM (BEAKER) (test 139 meq/L 135-148 hiyj=930) POTASSIUM (BEAKER) (test 4.5 meq/L 3.6-5.5 izpl=488) CHLORIDE (BEAKER) (test 102 meq/L 98-106 xgmc=222) CO2 (BEAKER) (test 28 meq/L 20-29 skgu=471) BLOOD UREA NITROGEN 14 mg/dL 10-26 (BEAKER) (test swza=125) CREATININE (BEAKER) (test 0.63 mg/dL 0.50-1.20 asdh=851) GLUCOSE RANDOM (BEAKER) 91 mg/dL 70-110 (test yfov=195) CALCIUM (BEAKER) (test 9.3 mg/dL 8.5-10.5 arrp=307) EGFR (BEAKER) (test 95 mL/min/1.73 sq m ESTIMATED GFR IS NOT mofc=0407) ACCURATE CREATININE CLEARANCE IN PREDICTING GLOMERULAR FILTRATION RATE. ESTIMATED GFR IS NOT APPLICABLE FOR DIALYSIS PATIENTS. CT, CTA AAA, W/ RAVINDER.EXT.[id number] 18:40:00Addendum BeginsREPORT STATUS:A Addendum: I agree with the previously described non vascular findings. Additionally there is mild skin thickening in the lower anterior abdominal wall and subcutaneous edema which may be secondary to cellulitis. Signed: Dain [place] Verified Date/Time: 09/17/2018 18: 40:47 Reading Location: [place] [address] Angio Body Reading RoomAddendum EndsFINAL REPORT CT [...] and during intravenous contrast administration using a [employer] multidetector CT scanner. Images were obtained before [...] dictated regarding the non-vascular findings by the Media Job Titles Radiologist. Signed: Morteza Johnson MDReport Verified Date/Time: 09/17/2018 14:46:36 Reading Location: [facility] P[address] Cardiology MRI [facility] METABOLIC [id number] 07: 21:00 Test Item Value Reference Range Comments SODIUM (BEAKER) (test 145 meq/L 135-148 japl=690) POTASSIUM (BEAKER) (test 4.0 meq/L 3.6-5.5 eprf=307) CHLORIDE (BEAKER) (test 103 meq/L 98-106 srxv=251) CO2 (BEAKER) (test 32 meq/L 20-29 bdev=402) BLOOD UREA NITROGEN 12 mg/dL 10-26 (BEAKER) (test mlse=126) CREATININE (BEAKER) (test 0.63 mg/dL 0.50-1.20 axqs=797) GLUCOSE RANDOM (BEAKER) 78 mg/dL 70-110 (test jhkv=908) CALCIUM (BEAKER) (test 8.5 mg/dL 8.5-10.5 miat=540) EGFR (BEAKER) (test 95 mL/min/1.73 sq m ESTIMATED GFR IS NOT gbup=8732) ACCURATE CREATININE CLEARANCE IN PREDICTING GLOMERULAR FILTRATION RATE. ESTIMATED GFR IS NOT APPLICABLE FOR DIALYSIS PATIENTS. [id number] 07:20:00 Test Item Value Reference Range Comments PHOSPHORUS (BEAKER) (test kzej=142) 3.8 mg/dL 2.5-4.5 [id number] 07:15:00 Test Item Value Reference Range Comments MAGNESIUM (BEAKER) (test ngnc=725) 1.9 mg/dL 1.5-3.0 CBC W/PLT COUNT & AUTO [id number] 06:56:00 Test Item Value Reference Range Comments WHITE BLOOD CELL COUNT (BEAKER) (test uwma=763) 10.8 K/ L 4.0-10.0 RED BLOOD CELL COUNT (BEAKER) (test tlmb=285) 3.02 M/ L 4.00-5.00 HEMOGLOBIN (BEAKER) (test alfz=624) 9.7 GM/DL 12.0-15.5 HEMATOCRIT (BEAKER) (test afsf=181) 30.4 % 36.0-46.0 MEAN CORPUSCULAR VOLUME (BEAKER) (test qsam=704) 100.7 fL 82.0-99.0 MEAN CORPUSCULAR HEMOGLOBIN (BEAKER) (test 32.1 pg 27.0-33.0 nfjm=029) MEAN CORPUSCULAR HEMOGLOBIN CONC (BEAKER) (test 31.9 GM/DL 32.0-36.0 djeu=222) RED CELL DISTRIBUTION WIDTH (BEAKER) (test 14.7 % 12.0-15.0 uaai=013) PLATELET COUNT (BEAKER) (test synu=696) 344 K/CU MM 150-430 MEAN PLATELET VOLUME (BEAKER) (test utmi=315) 9.9 fL 6.0-11.5 NUCLEATED RED BLOOD CELLS (BEAKER) (test 0 /100 WBC 0-0 tent=538) NEUTROPHILS RELATIVE PERCENT (BEAKER) (test 66 % wdwt=869) LYMPHOCYTES RELATIVE PERCENT (BEAKER) (test 17 % umfi=530) MONOCYTES RELATIVE PERCENT (BEAKER) (test 10 % xlqc=814) EOSINOPHILS RELATIVE PERCENT (BEAKER) (test 4 % ksxx=985) BASOPHILS RELATIVE PERCENT (BEAKER) (test 1 % yopy=937) NEUTROPHILS ABSOLUTE COUNT (BEAKER) (test 7.09 K/ L 1.80-8.00 waws=136) LYMPHOCYTES ABSOLUTE COUNT (BEAKER) (test 1.87 K/ L 1.48-4.50 grli=467) MONOCYTES ABSOLUTE COUNT (BEAKER) (test 1.02 K/ L 0.00-1.30 byci=323) EOSINOPHILS ABSOLUTE COUNT (BEAKER) (test 0.41 K/ L 0.00-0.50 euyy=932) BASOPHILS ABSOLUTE COUNT (BEAKER) (test 0.05 K/ L 0.00-0.20 kknr=301) IMMATURE GRANULOCYTES-RELATIVE PERCENT (BEAKER) 3 % 0-0 (test ukfs=5713) BASIC METABOLIC [id number] 05:51:00 Test Item Value Reference Range Comments SODIUM (BEAKER) (test 141 meq/L 135-148 heyw=902) POTASSIUM (BEAKER) (test 4.0 meq/L 3.6-5.5 ggql=798) CHLORIDE (BEAKER) (test 105 meq/L 98-106 vgtw=895) CO2 (BEAKER) (test 32 meq/L 20-29 ukym=221) BLOOD UREA NITROGEN 14 mg/dL 10-26 (BEAKER) (test grbz=571) CREATININE (BEAKER) (test 0.60 mg/dL 0.50-1.20 kdqq=786) GLUCOSE RANDOM (BEAKER) 87 mg/dL 70-110 (test ixyo=090) CALCIUM (BEAKER) (test 8.1 mg/dL 8.5-10.5 frgr=384) EGFR (BEAKER) (test 101 mL/min/1.73 sq m ESTIMATED GFR IS NOT pqts=4383) ACCURATE CREATININE CLEARANCE IN PREDICTING GLOMERULAR FILTRATION RATE. ESTIMATED GFR IS NOT APPLICABLE FOR DIALYSIS PATIENTS. CBC W/PLT COUNT & AUTO [id number] 05:23:00 Test Item Value Reference Range Comments WHITE BLOOD CELL COUNT (BEAKER) (test zmow=248) 9.3 K/ L 4.0-10.0 RED BLOOD CELL COUNT (BEAKER) (test updz=343) 2.85 M/ L 4.00-5.00 HEMOGLOBIN (BEAKER) (test cjsd=643) 8.9 GM/DL 12.0-15.5 HEMATOCRIT (BEAKER) (test llqc=569) 29.2 % 36.0-46.0 MEAN CORPUSCULAR VOLUME (BEAKER) (test jozp=657) 102.5 fL 82.0-99.0 MEAN CORPUSCULAR HEMOGLOBIN (BEAKER) (test 31.2 pg 27.0-33.0 tnib=144) MEAN CORPUSCULAR HEMOGLOBIN CONC (BEAKER) (test 30.5 GM/DL 32.0-36.0 fido=160) RED CELL DISTRIBUTION WIDTH (BEAKER) (test 14.9 % 12.0-15.0 saaz=302) PLATELET COUNT (BEAKER) (test maev=763) 303 K/CU MM 150-430 MEAN PLATELET VOLUME (BEAKER) (test uoqq=637) 9.6 fL 6.0-11.5 NUCLEATED RED BLOOD CELLS (BEAKER) (test 0 /100 WBC 0-0 iqhb=942) NEUTROPHILS RELATIVE PERCENT (BEAKER) (test 63 % qqrv=899) LYMPHOCYTES RELATIVE PERCENT (BEAKER) (test 21 % jdob=244) MONOCYTES RELATIVE PERCENT (BEAKER) (test 10 % slpv=906) EOSINOPHILS RELATIVE PERCENT (BEAKER) (test 3 % ppry=284) BASOPHILS RELATIVE PERCENT (BEAKER) (test 0 % vxsm=925) NEUTROPHILS ABSOLUTE COUNT (BEAKER) (test 5.86 K/ L 1.80-8.00 xaph=734) LYMPHOCYTES ABSOLUTE COUNT (BEAKER) (test 1.96 K/ L 1.48-4.50 amdo=448) MONOCYTES ABSOLUTE COUNT (BEAKER) (test 0.95 K/ L 0.00-1.30 ajpo=535) EOSINOPHILS ABSOLUTE COUNT (BEAKER) (test 0.29 K/ L 0.00-0.50 eowi=047) BASOPHILS ABSOLUTE COUNT (BEAKER) (test 0.03 K/ L 0.00-0.20 vgrr=439) IMMATURE GRANULOCYTES-RELATIVE PERCENT (BEAKER) 2 % 0-0 (test clau=4934) B-TYPE NATRIURETIC FACTOR (BNP)2018-09-15 05:51:00 Test Item Value Reference Range Comments B-TYPE NATRIURETIC PEPTIDE (BEAKER) (test 418 pg/mL 0-100 kcwj=722) [id number] 05:49:00 Test Item Value Reference Range Comments PHOSPHORUS (BEAKER) (test rzlr=732) 1.5 mg/dL 2.5-4.5 BASIC METABOLIC [id number] 05:45:00 Test Item Value Reference Range Comments SODIUM (BEAKER) (test 144 meq/L 135-148 govt=274) POTASSIUM (BEAKER) (test 4.8 meq/L 3.6-5.5 cvhr=529) CHLORIDE (BEAKER) (test 105 meq/L 98-106 kbyc=142) CO2 (BEAKER) (test 32 meq/L 20-29 voxb=254) BLOOD UREA NITROGEN 12 mg/dL 10-26 (BEAKER) (test qotp=548) CREATININE (BEAKER) (test 0.62 mg/dL 0.50-1.20 uyjk=624) GLUCOSE RANDOM (BEAKER) 113 mg/dL 70-110 (test bbfr=589) CALCIUM (BEAKER) (test 8.5 mg/dL 8.5-10.5 fcwx=763) EGFR (BEAKER) (test 97 mL/min/1.73 sq m ESTIMATED GFR IS NOT mzdx=6822) ACCURATE CREATININE CLEARANCE IN PREDICTING GLOMERULAR FILTRATION RATE. ESTIMATED GFR IS NOT APPLICABLE FOR DIALYSIS PATIENTS. [id number] 05:39:00 Test Item Value Reference Range Comments MAGNESIUM (BEAKER) (test usnf=986) 2.3 mg/dL 1.5-3.0 CBC W/PLT COUNT & AUTO [id number] 05:24:00 Test Item Value Reference Range Comments WHITE BLOOD CELL COUNT (BEAKER) (test xquu=674) 10.9 K/ L 4.0-10.0 RED BLOOD CELL COUNT (BEAKER) (test xxdb=007) 2.93 M/ L 4.00-5.00 HEMOGLOBIN (BEAKER) (test wwot=816) 9.2 GM/DL 12.0-15.5 HEMATOCRIT (BEAKER) (test vxsq=500) 29.3 % 36.0-46.0 MEAN CORPUSCULAR VOLUME (BEAKER) (test jygw=028) 100.0 fL 82.0-99.0 MEAN CORPUSCULAR HEMOGLOBIN (BEAKER) (test 31.4 pg 27.0-33.0 vrft=323) MEAN CORPUSCULAR HEMOGLOBIN CONC (BEAKER) (test 31.4 GM/DL 32.0-36.0 xjou=985) RED CELL DISTRIBUTION WIDTH (BEAKER) (test 14.7 % 12.0-15.0 uqmm=268) PLATELET COUNT (BEAKER) (test nvit=761) 313 K/CU MM 150-430 MEAN PLATELET VOLUME (BEAKER) (test jqpj=609) 9.7 fL 6.0-11.5 NUCLEATED RED BLOOD CELLS (BEAKER) (test 0 /100 WBC 0-0 sywl=884) NEUTROPHILS RELATIVE PERCENT (BEAKER) (test 82 % vckw=939) LYMPHOCYTES RELATIVE PERCENT (BEAKER) (test 9 % mwks=832) MONOCYTES RELATIVE PERCENT (BEAKER) (test 8 % hgbx=767) EOSINOPHILS RELATIVE PERCENT (BEAKER) (test 0 % sahr=437) BASOPHILS RELATIVE PERCENT (BEAKER) (test 0 % oabs=200) NEUTROPHILS ABSOLUTE COUNT (BEAKER) (test 8.88 K/ L 1.80-8.00 tcza=764) LYMPHOCYTES ABSOLUTE COUNT (BEAKER) (test 1.00 K/ L 1.48-4.50 yewr=533) MONOCYTES ABSOLUTE COUNT (BEAKER) (test 0.86 K/ L 0.00-1.30 ygck=701) EOSINOPHILS ABSOLUTE COUNT (BEAKER) (test 0.03 K/ L 0.00-0.50 ajob=076) BASOPHILS ABSOLUTE COUNT (BEAKER) (test 0.01 K/ L 0.00-0.20 xyfe=399) IMMATURE GRANULOCYTES-RELATIVE PERCENT (BEAKER) 1 % 0-0 (test swot=3837) BASIC METABOLIC [id number] 21:36:00 Test Item Value Reference Range Comments SODIUM (BEAKER) (test 141 meq/L 135-148 vebu=161) POTASSIUM (BEAKER) (test 3.2 meq/L 3.6-5.5 apwo=230) CHLORIDE (BEAKER) (test 102 meq/L 98-106 dpak=511) CO2 (BEAKER) (test 31 meq/L 20-29 pdgd=420) BLOOD UREA NITROGEN 9 mg/dL 10-26 (BEAKER) (test qpdb=709) CREATININE (BEAKER) (test 0.65 mg/dL 0.50-1.20 yswq=534) GLUCOSE RANDOM (BEAKER) 150 mg/dL 70-110 (test xjbr=468) CALCIUM (BEAKER) (test 8.3 mg/dL 8.5-10.5 wyvm=038) EGFR (BEAKER) (test 92 mL/min/1.73 sq m ESTIMATED GFR IS NOT qezi=6440) ACCURATE CREATININE CLEARANCE IN PREDICTING GLOMERULAR FILTRATION RATE. ESTIMATED GFR IS NOT APPLICABLE FOR DIALYSIS PATIENTS. CBC W/PLT COUNT & AUTO [id number] 16:26:00 Test Item Value Reference Range Comments WHITE BLOOD CELL COUNT (BEAKER) (test wpjp=482) 8.1 K/ L 4.0-10.0 RED BLOOD CELL COUNT (BEAKER) (test iyrw=142) 2.93 M/ L 4.00-5.00 HEMOGLOBIN (BEAKER) (test ypce=489) 9.3 GM/DL 12.0-15.5 HEMATOCRIT (BEAKER) (test ckwd=385) 28.7 % 36.0-46.0 MEAN CORPUSCULAR VOLUME (BEAKER) (test kezc=674) 98.0 fL 82.0-99.0 MEAN CORPUSCULAR HEMOGLOBIN (BEAKER) (test 31.7 pg 27.0-33.0 qkcw=252) MEAN CORPUSCULAR HEMOGLOBIN CONC (BEAKER) (test 32.4 GM/DL 32.0-36.0 uwbd=821) RED CELL DISTRIBUTION WIDTH (BEAKER) (test 14.5 % 12.0-15.0 waav=395) PLATELET COUNT (BEAKER) (test nayp=519) 277 K/CU MM 150-430 MEAN PLATELET VOLUME (BEAKER) (test qiij=757) 9.5 fL 6.0-11.5 NUCLEATED RED BLOOD CELLS (BEAKER) (test 0 /100 WBC 0-0 egte=412) NEUTROPHILS RELATIVE PERCENT (BEAKER) (test 89 % sspo=507) LYMPHOCYTES RELATIVE PERCENT (BEAKER) (test 7 % qhgb=171) MONOCYTES RELATIVE PERCENT (BEAKER) (test 3 % yqgt=539) EOSINOPHILS RELATIVE PERCENT (BEAKER) (test 0 % otsc=240) BASOPHILS RELATIVE PERCENT (BEAKER) (test 0 % mutv=101) NEUTROPHILS ABSOLUTE COUNT (BEAKER) (test 7.22 K/ L 1.80-8.00 krzg=160) LYMPHOCYTES ABSOLUTE COUNT (BEAKER) (test 0.55 K/ L 1.48-4.50 tkkr=617) MONOCYTES ABSOLUTE COUNT (BEAKER) (test 0.25 K/ L 0.00-1.30 wvlf=[id number]) EOSINOPHILS ABSOLUTE COUNT (BEAKER) (test 0.01 K/ L 0.00-0.50 kqie=050) BASOPHILS ABSOLUTE COUNT (BEAKER) (test 0.01 K/ L 0.00-0.20 zkjl=151) IMMATURE GRANULOCYTES-RELATIVE PERCENT (BEAKER) 1 % 0-0 (test [id number])
[2019-08-31] MEDS ORDERED: FOLIC ACID 1 MG TABLET ONE (14:34)
[2019-08-31] MEDS ORDERED: predniSONE 20 MG TAB ONE (14:34)
[2019-08-31] MEDS ORDERED: THIAMINE HCL 100 MG TABLET ONE (14:34)
[2019-08-31] MEDS ORDERED: ALBUTEROL 2.5 MG/3 ML NEB SOL ONE (14:34)
[2019-08-31] MEDS ORDERED: FAMOTIDINE 20 MG TAB ONE (14:35)
[2019-08-31] MEDS ORDERED: NYSTATIN 500,000 UNIT/5 ML UDC PO SCH (15:00)
[2019-08-31] MEDS ORDERED: CYANOCOBALAMIN 1000MCG/ML INJ IM SCH (15:00)
--- NOTE | 2019-08-31 15:40 | RAD REPORT ---
EXAM DESCRIPTION: Raheem Smith And Shantell (2 Views)08/31/2019 3:11 pm CLINICAL HISTORY: Cough COMPARISON: February 2019 FINDINGS: Postsurgical changes involve the right lung. A few areas of subsegmental atelectasis are present within the lung bases. The heart is normal size
--- NOTE | 2019-08-31 16:11 | EDPHYS ---
Physician Documentation [facility] Name: Amanda Malik Age: 64 yrs Sex: Female : 1955 Arrival Date: 08/31/2019 Time: 13:35 Bed 13 Private MD: Herman Watkins S ED Physician Mayela Lemus HPI: 08/31 16:05 This 64 yrs old Female presents to ER via Ambulatory with complaints of snw Breathing Difficulty. 16:05 The patient has shortness of breath at rest, with light activity. Onset: The snw symptoms/episode began/occurred gradually, and became persistent. Duration: The symptoms are continuous. The patient's shortness of breath is aggravated by coughing, light activity. Associated signs and symptoms: The patient has no apparent associated signs or symptoms. Severity of symptoms: At their worst the symptoms were moderate. The patient has experienced similar episodes in the past. It is unknown whether or not the patient has recently seen a physician. Historical: - Allergies: 13:43 No Known Allergies; aj1 - Home Meds: 13:43 Albuterol Inhl [Active]; atorvastatin 10 mg Oral tab 1 tab once daily [Active]; Breo aj1 Ellipta 200-25 mcg/dose inhalation dsdv 1 puff once daily [Active]; cyclobenzaprine 10 mg Oral tab 1 tab 3 times per day [Active]; escitalopram oxalate 20 mg Oral tab 1 tab once daily [Active]; metoprolol succinate 25 mg Oral Tb24 1 tab BID [Active]; omeprazole 20 mg Oral cpDR 1 cap once daily [Active]; Tylenol #3 Oral [Active]; - PMHx: 13:43 COPD; High Cholesterol; Hypertension; aj1 - Immunization history:: Flu vaccine is up to date. - Social history:: Smoking status: Patient/guardian denies using tobacco. - Ebola Screening: : Patient denies travel to an Ebola-affected area in the 21 days before illness onset. ROS: 16:04 Constitutional: Negative for fever, chills, and weight loss, Eyes: Negative for injury, snw pain, redness, and discharge, ENT: Negative for injury, pain, and discharge, Neck: Negative for injury, pain, and swelling. 16:04 Cardiovascular: Negative for chest pain, palpitations, and edema. 16:04 Abdomen/GI: Negative for abdominal pain, nausea, vomiting, diarrhea, and constipation, Back: Negative for injury and pain, : Negative for injury, bleeding, discharge, and swelling, MS/Extremity: Negative for injury and deformity, Skin: Negative for injury, rash, and discoloration, Neuro: Negative for headache, weakness, numbness, tingling, and seizure. 16:04 Respiratory: Positive for cough, shortness of breath. Exam: 14:21 Constitutional: This is a well developed, well nourished patient who is awake, alert, snw and in no acute distress. Head/Face: Normocephalic, atraumatic. Eyes: Pupils equal round and reactive to light, extra-ocular motions intact. Lids and lashes normal. Conjunctiva and sclera are non-icteric and not injected. Cornea within normal limits. Periorbital areas with no swelling, redness, or edema. ENT: Nares patent. No nasal discharge, no septal abnormalities noted. Tympanic membranes are normal and external auditory canals are clear. Oropharynx with no redness, swelling, or masses, exudates, or evidence of obstruction, uvula midline. Mucous membranes moist. Neck: Trachea midline, no thyromegaly or masses palpated, and no cervical lymphadenopathy. Supple, full range of motion without nuchal rigidity, or vertebral point tenderness. No Meningismus. Chest/axilla: Normal chest wall appearance and motion. Nontender with no deformity. No lesions are appreciated. Cardiovascular: Regular rate and rhythm with a normal S1 and S2. No gallops, murmurs, or rubs. Normal PMI, no JVD. No pulse deficits. Abdomen/GI: Soft, non-tender, with normal bowel sounds. No distension or tympany. No guarding or rebound. No evidence of tenderness throughout. Back: No spinal tenderness. No costovertebral tenderness. Full range of motion. MS/ Extremity: Pulses equal, no cyanosis. Neurovascular intact. Full, normal range of motion. Neuro: Awake and alert, GCS 15, oriented to person, place, time, and situation. Cranial nerves II-XII grossly intact. Motor strength 5/5 in all extremities. Sensory grossly intact. Cerebellar exam normal. Normal gait. 14:21 ENT: Nares patent. No nasal discharge, no septal abnormalities noted. Tympanic membranes are normal and external auditory canals are clear. Oropharynx with no redness, swelling, or masses, exudates, or evidence of obstruction, uvula midline. Mucous membranes moist. tongue tender with increased redness, no noted white plaques 14:21 Respiratory: the patient does not display signs of respiratory distress, Respirations: prolonged exhalation, pursed lip breathing, shallow respirations, tachypnea, Breath sounds: bronchial sounds, that are moderate, are heard in the left posterior lower lobe and right posterior lower lobe, wheezin:21 Skin: Appearance: normal except for affected area, injury, avulsion(s), a very small of the right great toe with nail clipped too short, lateral aspect tender with mild erythema. Vital Signs: 13:43 BP 128 / 84; Pulse 110; Resp 20; Temp 97.7; Pulse Ox 98% on R/A; Weight 56.25 kg (R); aj1 Pain 10/10; 14:00 BP 97 / 46; Pulse 110; Resp 19; Pulse Ox 97% on R/A; rv 14:30 BP 120 / 68; Pulse 96; Resp 19; Pulse Ox 100% on R/A; rv 15:00 BP 108 / 82; Pulse 104; Resp 18; Pulse Ox 100% on R/A; rv 15:30 BP 120 / 72; Pulse 102; Resp 18; Pulse Ox 100% on R/A; rv 16:30 BP 115 / 62; Pulse 118; Resp 19; Pulse Ox 100% on R/A; rv MDM: 13:54 Patient medically screened. snw 16:10 Data reviewed: vital signs, nurses notes. Data interpreted: Pulse oximetry: on room air snw is 98 %. Interpretation: acceptable. Counseling: I had a detailed discussion with the patient and/or guardian regarding: the historical points, exam findings, and any diagnostic results supporting the discharge/admit diagnosis, the presence of at least one elevated blood pressure reading (>120/80) during this emergency department visit, lab results, radiology results, the need for outpatient follow up, to return to the emergency department if symptoms worsen or persist or if there are any questions or concerns that arise at home. Special discussion: Based on the history and exam findings, there is no indication for further emergent testing or inpatient evaluation. I discussed with the patient/guardian the need to see the primary care provider for further evaluation of the symptoms. I discussed with the patient/guardian the need to see the fiber glass worker for further evaluation of the symptoms. 08/31 13:45 Order name: Flu; Complete Time: 16:42 [facility] 08/31 13:45 Order name: Strep; Complete Time: 16:34 [facility] 08/31 13:45 Order name: Chest Pa And Lat (2 Views) XRAY; Complete Time: 15:56 [facility] 08/31 16:38 Order name: Throat Culture EDMS Administered Medications: 14:40 Drug: Albuterol 2.5 mg Route: Inhalation; rv 14:40 Drug: predniSONE 40 mg Route: PO; rv 14:41 Drug: foLIC Acid 1 mg Route: PO; rv 14:41 Drug: Thiamine 100 mg Route: PO; rv 14:42 Drug: Pepcid 20 mg Route: PO; rv 15:07 Drug: Cyanocobalamin 1000 mcg Route: IM; Site: left deltoid; rv 15:15 Drug: Albuterol 2.5 mg Route: Inhalation; rv 15:45 Drug: Albuterol 2.5 mg Route: Inhalation; rv 16:00 Drug: nystatin 064954 units Route: PO; rv Disposition: 17:13 Co-signature as Attending Physician, Mayela Lemus MD. ma2 Disposition: 08/31/19 16:09 Discharged to Home. Impression: Chronic obstructive pulmonary disease with (acute) exacerbation. - Condition is Stable. - Discharge Instructions: Chronic Obstructive Pulmonary Disease. - Prescriptions for Prednisone 20 mg Oral Tablet - take 2 tablet by ORAL route once daily for 5 days; 10 tablet. Albuterol Sulfate 90 mcg/actuation - inhale 1-2 puff by INHALATION route every 4-6 hours; 1 Inhaler. Pepcid 20 mg Oral Tablet - take 1 tablet by ORAL route once daily; 20 tablet. Zithromax 500 mg Oral Tablet - take 1 tablet by ORAL route once daily for 5 days; 5 tablet. - Medication Reconciliation Form, Thank You Letter, Antibiotic Education, Prescription Opioid Use form. - Follow up: Herman Watkins MD; When: 2 - 3 days; Reason: Recheck today's complaints, Continuance of care, Re-evaluation by your physician. Follow up: Emergency Department; When: As needed; Reason: Worsening of condition. - Notes: Please rinse mouth after use of inhalers Signatures: Dispatcher [employer] Tigist Gallegos RN RN aj1 Ida Rock, INCOMING FREIGHT CLERK-C INCOMING FREIGHT CLERK-Csnw Hawa Greenberg RN RN Mayela Lemus MD MD ma2 Antonio Hunt RN RN rv Corrections: (The following items were deleted from the chart) 16:56 16:09 08/31/2019 16:09 Discharged to Home. Impression: Chronic obstructive pulmonary hb disease with (acute) exacerbation. Condition is Stable. Forms are Medication Reconciliation Form, Thank You Letter, Antibiotic Education, Prescription Opioid Use. Follow up: Herman Watkins; When: 2 - 3 days; Reason: Recheck today's complaints, Continuance of care, Re-evaluation by your physician. Follow up: Emergency Department; When: As needed; Reason: Worsening of condition. snw
--- NOTE | 2019-08-31 16:11 | ER ---
Nurse's Notes [facility] Name: Amanda Malik Age: 64 yrs Sex: Female : 1955 Arrival Date: 08/31/2019 Time: 13:35 Bed 13 Private MD: Herman Watkins S Diagnosis: Chronic obstructive pulmonary disease with (acute) exacerbation Presentation: 08/31 13:40 Presenting complaint: Patient states: Shortness of breath for the past 3 weeks. Reports aj1 sinus pressure, productive cough, nasal congestion. Patient also reports redness to her tongue for several months and an infected toe that she would like to have checked out today as well. Transition of care: patient was not received from another setting of care. Onset of symptoms was August 31, 2019. Risk Assessment: Do you want to hurt yourself or someone else? Patient reports no desire to harm self or others. Initial Sepsis Screen: Does the patient meet any 2 criteria? HR > 90 bpm. No. Patient's initial sepsis screen is negative. Does the patient have a suspected source of infection? Yes: Productive cough/pneumonia. Care prior to arrival: None. 13:40 Method Of Arrival: Ambulatory aj1 13:40 Acuity: EMILY 3 aj1 Triage Assessment: 13:43 General: Appears in no apparent distress. uncomfortable, Behavior is calm, cooperative, aj1 appropriate for age. Pain: Complains of pain in back. Neuro: Level of Consciousness is awake, alert, obeys commands. Cardiovascular: Patient's skin is warm and dry. Respiratory: Reports shortness of breath Airway is patent Respiratory effort is even, unlabored, Respiratory pattern is regular, symmetrical, Onset: The symptoms/episode began/occurred 3 week ago. 14:10 Respiratory: the patient has mild shortness of breath. rv Historical: - Allergies: 13:43 No Known Allergies; aj1 - Home Meds: 13:43 Albuterol Inhl [Active]; atorvastatin 10 mg Oral tab 1 tab once daily [Active]; Breo aj1 Ellipta 200-25 mcg/dose inhalation dsdv 1 puff once daily [Active]; cyclobenzaprine 10 mg Oral tab 1 tab 3 times per day [Active]; escitalopram oxalate 20 mg Oral tab 1 tab once daily [Active]; metoprolol succinate 25 mg Oral Tb24 1 tab BID [Active]; omeprazole 20 mg Oral cpDR 1 cap once daily [Active]; Tylenol #3 Oral [Active]; - PMHx: 13:43 COPD; High Cholesterol; Hypertension; aj1 - Immunization history:: Flu vaccine is up to date. - Social history:: Smoking status: Patient/guardian denies using tobacco. - Ebola Screening: : Patient denies travel to an Ebola-affected area in the 21 days before illness onset. Screenin:09 Abuse screen: Denies threats or abuse. Denies injuries from another. Nutritional rv screening: No deficits noted. Tuberculosis screening: No symptoms or risk factors identified. Fall Risk None identified. Assessment: 14:01 General: Appears in no apparent distress. uncomfortable, Behavior is calm, cooperative. rv Pain: Complains of pain in back. Neuro: Level of Consciousness is awake, alert, obeys commands, Oriented to person, place, time, situation. Cardiovascular: Patient's skin is warm and dry. Respiratory: Airway is patent Breath sounds with wheezes in left posterior lower lobe. GI: No signs and/or symptoms were reported involving the gastrointestinal system. : No signs and/or symptoms were reported regarding the genitourinary system. EENT: No signs and/or symptoms were reported regarding the EENT system. Derm: Skin is intact. Musculoskeletal: Reports pain in back. 14:06 Cardiovascular: Rhythm is sinus tachycardia with unifocal PVCs. Respiratory: rv Respiratory effort is even. Vital Signs: 13:43 BP 128 / 84; Pulse 110; Resp 20; Temp 97.7; Pulse Ox 98% on R/A; Weight 56.25 kg (R); aj1 Pain 10/10; 14:00 BP 97 / 46; Pulse 110; Resp 19; Pulse Ox 97% on R/A; rv 14:30 BP 120 / 68; Pulse 96; Resp 19; Pulse Ox 100% on R/A; rv 15:00 BP 108 / 82; Pulse 104; Resp 18; Pulse Ox 100% on R/A; rv 15:30 BP 120 / 72; Pulse 102; Resp 18; Pulse Ox 100% on R/A; rv 16:30 BP 115 / 62; Pulse 118; Resp 19; Pulse Ox 100% on R/A; rv ED Course: 13:35 Patient arrived in ED. mr 13:35 Herman Watkins MD is Private Physician. mr 13:42 Triage completed. aj1 13:42 Ida Rock FNP-C is [facility]. snw 13:42 Mayela Lemus MD is Attending Physician. snw 13:43 Arm band placed on Patient placed in waiting room, Patient notified of wait time. aj1 13:57 Antonio Hunt, ZAYRA is Primary Nurse. rv 14:09 Patient has correct armband on for positive identification. Call light in reach. Side rv rails up X 1. bus monitor on. Pulse ox on. NIBP on. 15:08 Inserted saline lock: 22 gauge in right antecubital area, using aseptic technique. rv Blood collected. 15:09 Chest Pa And Lat (2 Views) XRAY In Process Unspecified. EDMS 16:06 Herman Watkins MD is Referral Physician. snw 16:31 No provider procedures requiring assistance completed. Patient did not have IV access rv during this emergency room visit. Administered Medications: 14:40 Drug: Albuterol 2.5 mg Route: Inhalation; rv 14:40 Drug: predniSONE 40 mg Route: PO; rv 14:41 Drug: foLIC Acid 1 mg Route: PO; rv 14:41 Drug: Thiamine 100 mg Route: PO; rv 14:42 Drug: Pepcid 20 mg Route: PO; rv 15:07 Drug: Cyanocobalamin 1000 mcg Route: IM; Site: left deltoid; rv 15:15 Drug: Albuterol 2.5 mg Route: Inhalation; rv 15:45 Drug: Albuterol 2.5 mg Route: Inhalation; rv 16:00 Drug: nystatin 899139 units Route: PO; rv Outcome: 16:09 Discharge ordered by . snw 16:56 Patient left the ED. Signatures: Dispatcher [employer] EDMS Tigist Odonnell RN RN aj1 Ida Rock FNP-C FNP-Lida Dorina Gómez Hawa Greenberg, ZAYRA RN Antonio Hunt, ZAYRA RN rv
[2019-08-31 18:54] VITALS: TEMP 97.7
[2019-08-31 18:57] VITALS: O2SAT 100
[2019-08-31 19:00] VITALS: BP 115/62
== END 2019-08-31 16:56 | disposition home or self-care (01) ==
LOC: ER 13:32
DX: J44.1 Chronic obstructive pulmonary disease with (acute) exacerbation (principal); I10 Essential (primary) hypertension; E78.00 Pure hypercholesterolemia, unspecified
CPT/HCPCS: 87070; 87081; 87804 ×2; 71046; 96372; 99285; J3420; J7512

== ENCOUNTER 2019-11-30 06:21 | Observation (INO) | payer BC, OTHER ==
--- OUTSIDE RECORDS SUMMARY | 2019-11-30 06:29 | XMS REPORT ---
:1955 [facility] Address [address] [place] [address] Care Team Providers Name Role Phone KARL [...] # (test code=NRBC#) 0.00 K/mm3 0.0-0.1 WBC [id number] 11:16:00 Test Item Value Reference Range Comments [...] (test code=PLTMORPH) NORMAL NORMAL - XR CHEST [id number] 08:27:00 Patient Name: MOISÉS CANNON Unit No: [id number] EXAMS: CPT CODE: [id number] XR CHEST 1V 87580 EXAMINATION: - XR CHEST 1V. LOCATION: B2. [...] t.ANYAR.PR7 Orig Print D/T: S: 12/19/2018 (829) [facility] NAME: MOISÉS CANNON [address] PHYS: [place] [address] : 1955 AGE: 63 SEX: F LOC: Z.SI04 A PHONE #: [phone] EXAM DATE: 12/19/2018 STATUS: ADM IN FAX #: [phone] RADIOLOGY NO: PAGE 1 Signed ReportBASIC METABOLIC [id number] 06:07:00 Test Item Value Reference Range Comments [...] 0.52-1.04 CALCIUM (test code=CA) 9.2 MG/DL 8.4-10.2 [id number] 06:07:00 Test Item Value Reference Range Comments MAGNESIUM (test code=MAG) 2.0 MG/DL 1.6-2.3 CBC W/O [id number] 05:55:00 Test Item Value Reference Range Comments [...] # (test code=NRBC#) 0.00 K/mm3 0.0-0.1 WBC [id number] 05:55:00 Test Item Value Reference Range Comments RBC MORPHOLOGY REQUIRED (test code=RBCM) TOTAL CELLS COUNTED (test code=TCC) #CELLS SEGMENTED NEUTROPHILS (test code=SEG) % 36.2-73.8 LYMPHOCYTE (test code=LYMPH) % 12.9-45.1 MONOCYTE (test code=MON) % 0-11 PLATELET ESTIMATE (test code=PLTEST) ADEQUATE PLATELET MORPHOLOGY (test code=PLTMORPH) NORMAL CBC W/AUTO [id number] 05:55:00 Test Item Value Reference Range Comments [...] # (test code=NRBC#) 0.00 K/mm3 0.0-0.1 WBC [id number] 05:55:00 Test Item Value Reference Range Comments RBC MORPHOLOGY REQUIRED (test code=RBCM) TOTAL CELLS COUNTED (test code=TCC) #CELLS SEGMENTED NEUTROPHILS (test code=SEG) % 36.2-73.8 LYMPHOCYTE (test code=LYMPH) % 12.9-45.1 MONOCYTE (test code=MON) % 0-11 PLATELET ESTIMATE (test code=PLTEST) ADEQUATE PLATELET MORPHOLOGY (test code=PLTMORPH) NORMAL - XR CHEST [id number] 13:33:00 Patient Name: MOISÉS CANNON Unit No: [id number] EXAMS: CPT CODE: [id number] XR CHEST 1V 41719 Chest Radiograph History: RIGHT CHEST TUBE REMOVAL [...] MD CC: Chito Hanson MD; Oumou Stanley RN TRANSFER Technologist: Jo-Ann Hall (RT) Transcrpt Date/Tm/Trnsp: 12/18/2018 (0053) t.DEBBI.PMT Orig Print D/T: S: 12/18/2018 (5982) [facility] NAME: MOISÉS CANNON[address] PHYS: [place] [address] : 09/1954 AGE: 63 SEX: F LOC: Z.SI04 A PHONE #: [phone] EXAM DATE: STATUS: ADM IN FAX #: [phone] RADIOLOGY NO: PAGE 1 Signed ReportCBC W/O [id number] 09:20: 00 Test Item Value Reference Range [...] # (test code=NRBC#) 0.00 K/mm3 0.0-0.1 WBC [id number] 09:20:00 Test Item Value Reference Range Comments [...] (test code=PLTMORPH) NORMAL NORMAL - XR CHEST [id number] 08:19:00 Patient Name: MOISÉS CANNON Unit No: [id number] EXAMS: CPT CODE: [id number] XR CHEST 1V 10007 EXAMINATION: - XR CHEST 1V. LOCATION: B2. [...] t.ANYAR.PR7 Orig Print D/T: S: 12/18/2018 (821) [facility] NAME: MOISÉS CANNON [address] PHYS: [place] [address] : 1955 AGE: 63 SEX: F LOC: Z.SI04 A PHONE #: [phone] EXAM DATE: STATUS: ADM IN FAX #: [phone] RADIOLOGY NO: PAGE 1 Signed ReportBASIC METABOLIC [id number] 05:44:00 Test Item Value Reference Range [...] 0.52-1.04 CALCIUM (test code=CA) 8.8 MG/DL 8.4-10.2 [id number] 05:44:00 Test Item Value Reference Range Comments MAGNESIUM (test code=MAG) 1.9 MG/DL 1.6-2.3 CBC W/O [id number] 05:30:00 Test Item Value Reference Range Comments [...] # (test code=NRBC#) 0.00 K/mm3 0.0-0.1 WBC [id number] 05:30:00 Test Item Value Reference Range Comments RBC MORPHOLOGY REQUIRED (test code=RBCM) TOTAL CELLS COUNTED (test code=TCC) #CELLS SEGMENTED NEUTROPHILS (test code=SEG) % 36.2-73.8 LYMPHOCYTE (test code=LYMPH) % 12.9-45.1 MONOCYTE (test code=MON) % 0-11 PLATELET ESTIMATE (test code=PLTEST) ADEQUATE PLATELET MORPHOLOGY (test code=PLTMORPH) NORMAL CBC W/AUTO [id number] 05:30:00 Test Item Value Reference Range Comments [...] # (test code=NRBC#) 0.00 K/mm3 0.0-0.1 WBC [id number] 05:30:00 Test Item Value Reference Range Comments RBC MORPHOLOGY REQUIRED (test code=RBCM) TOTAL CELLS COUNTED (test code=TCC) #CELLS SEGMENTED NEUTROPHILS (test code=SEG) % 36.2-73.8 LYMPHOCYTE (test code=LYMPH) % 12.9-45.1 MONOCYTE (test code=MON) % 0-11 PLATELET ESTIMATE (test code=PLTEST) ADEQUATE PLATELET MORPHOLOGY (test code=PLTMORPH) NORMAL CBC W/O [id number] 09:18:00 Test Item Value Reference Range Comments [...] # (test code=NRBC#) 0.00 K/mm3 0.0-0.1 WBC [id number] 09:18:00 Test Item Value Reference Range Comments [...] (test code=PLTMORPH) NORMAL NORMAL - XR CHEST [id number] 08:48:00 Patient Name: MOISÉS CANNON Unit No: [id number] EXAMS: CPT CODE: [id number] XR CHEST 1V 45000 REASON FOR EXAM: Chest tube, lung lesion, [...] (0848) t.ANYAR.RCM Orig Print D/T: S: 12/17/2018 (8806) [facility] NAME: MOISÉS CANNON [address] PHYS: [place] [address] : 1955 AGE: 63 SEX: F LOC: Z.SI04 A PHONE #: [phone] EXAM DATE: 12/17/2018 STATUS: ADM IN FAX #: [phone] RADIOLOGY NO: PAGE 1 Signed ReportBASIC METABOLIC [id number] 05:48:00 Test Item Value Reference Range Comments [...] 0.52-1.04 CALCIUM (test code=CA) 8.6 MG/DL 8.4-10.2 [id number] 05:48:00 Test Item Value Reference Range Comments MAGNESIUM (test code=MAG) 2.0 MG/DL 1.6-2.3 PROTHROMBIN [id number] 05:37:00 Test Item Value Reference Range Comments [...] systemic embolism. 3.0 - 4.5 CBC W/O [id number] 05:18:00 Test Item Value Reference Range Comments [...] # (test code=NRBC#) 0.00 K/mm3 0.0-0.1 WBC [id number] 05:18:00 Test Item Value Reference Range Comments RBC MORPHOLOGY REQUIRED (test code=RBCM) TOTAL CELLS COUNTED (test code=TCC) #CELLS SEGMENTED NEUTROPHILS (test code=SEG) % 36.2-73.8 LYMPHOCYTE (test code=LYMPH) % 12.9-45.1 MONOCYTE (test code=MON) % 0-11 PLATELET ESTIMATE (test code=PLTEST) ADEQUATE PLATELET MORPHOLOGY (test code=PLTMORPH) NORMAL CBC W/AUTO [id number] 05:18:00 Test Item Value Reference Range Comments [...] # (test code=NRBC#) 0.00 K/mm3 0.0-0.1 WBC [id number] 05:18:00 Test Item Value Reference Range Comments RBC MORPHOLOGY REQUIRED (test code=RBCM) TOTAL CELLS COUNTED (test code=TCC) #CELLS SEGMENTED NEUTROPHILS (test code=SEG) % 36.2-73.8 LYMPHOCYTE (test code=LYMPH) % 12.9-45.1 MONOCYTE (test code=MON) % 0-11 PLATELET ESTIMATE (test code=PLTEST) ADEQUATE PLATELET MORPHOLOGY (test code=PLTMORPH) NORMAL - XR CHEST [id number] 07:05:00 Patient Name: MOISÉS CANNON Unit No: [id number] EXAMS: CPT CODE: [id number] XR CHEST 1V 75400 Single View Chest. Location: B2 Clinical Indication: [...] JuanRB24 Orig Print D/T: S: 12/16/2018 (707) [facility] NAME: MOISÉS CANNON [address] PHYS: [place] [address] : 1955 AGE: 63 SEX: F LOC: Z.SI04 A PHONE #: [phone] EXAM DATE: 12/16/2018 STATUS: ADM IN FAX #: [phone] RADIOLOGY NO: PAGE 1 Signed ReportBASIC METABOLIC [id number] 06:21:00 Test Item Value Reference Range Comments [...] 0.52-1.04 CALCIUM (test code=CA) 9.0 MG/DL 8.4-10.2 [id number] 06:21:00 Test Item Value Reference Range Comments MAGNESIUM (test code=MAG) 2.0 MG/DL 1.6-2.3 CBC W/AUTO [id number] 05:52:00 Test Item Value Reference Range Comments [...] code=NRBC#) 0.00 K/mm3 0.0-0.1 - XR CHEST [id number] 05:42:00 Patient Name: MOISÉS CANNON Unit No: [id number] EXAMS: CPT CODE: [id number] XR CHEST 1V 31753 Location: U19. CHEST, FRONTAL VIEW HISTORY: SUBQ [...] t.SDR.SP17 Orig Print D/T: S: 12/15/2018 ( 0593) [facility] NAME: MOISÉS CANNON [address] PHYS: [place] [address] : 1955 AGE: 63 SEX: F LOC: Z.SI04 A PHONE #: [phone] EXAM DATE: 12/15/2018 STATUS: ADM IN FAX #: [phone] RADIOLOGY NO: PAGE 1 Signed Report- XR CHEST [id number] 08:24:00 Patient Name: MOISÉS CANNON Unit No: [id number] EXAMS: CPT CODE: [id number] XR CHEST 1V 11112 REASON FOR EXAM: Chest tube, thoracotomy.. COMPARISON: [...] 12/14/2018 (0827) [facility] NAME: MOISÉS CANNON [address] PHYS: [place] [address] : 1955 AGE: 63 SEX: F LOC: Z.SI04 A PHONE #: [phone] EXAM DATE : 12/14/2018 STATUS: ADM IN FAX #: [phone] NO: PAGE 1 Signed ReportBASIC METABOLIC [id number] 07:39 :00 Test Item Value Reference Range [...] 0.52-1.04 CALCIUM (test code=CA) 8.6 MG/DL 8.4-10.2 [id number] 07:39:00 Test Item Value Reference Range Comments MAGNESIUM (test code=MAG) 2.0 MG/DL 1.6-2.3 CBC W/AUTO [id number] 07:24:00 Test Item Value Reference Range Comments [...] RBC # (test code=NRBC#) 0.00 K/mm3 0.0-0.1 [id number] 11:49:00 Test Item Value Reference Range Comments POTASSIUM (test code=K) 3.7 MMOL/L 3.5-5.1 - XR CHEST [id number] 07:42:00 Patient Name: MOISÉS CANNON Unit No: [id number] EXAMS: CPT CODE: [id number] XR CHEST 1V 37024 EXAMINATION: - XR CHEST 1V. LOCATION: B2. [...] (0742) t.SDR.PR7 Orig Print D/T: S: (0745) [facility] NAME : MOISÉS CANNON [address] PHYS: [place] [address] : 1954 AGE: 63 SEX: F LOC: Z.SI04 A PHONE #: [phone] EXAM DATE: STATUS: ADM IN FAX #: [phone] RADIOLOGY NO: PAGE 1 Signed ReportTB TEST [id number] 07:32: 00 Test Item Value Reference Range Comments TB TEST IGRA (test code=TBTEST) Negative Negative BASIC METABOLIC [id number] 05:53:00 Test Item Value Reference Range Comments [...] 0.52-1.04 CALCIUM (test code=CA) 8.7 MG/DL 8.4-10.2 [id number] 05:53:00 Test Item Value Reference Range Comments MAGNESIUM (test code=MAG) 1.8 MG/DL 1.6-2.3 CBC W/AUTO [id number] 05:35:00 Test Item Value Reference Range Comments [...] code=NRBC#) 0.00 K/mm3 0.0-0.1 - XR CHEST [id number] 08:38:00 Patient Name: MOISÉS CANNON Unit No: [id number] EXAMS: CPT CODE: [id number] XR CHEST 1V 38624 REASON FOR EXAM: Lung tumor resection. COMPARISON: [...] tFRANCISCO Orig Print D/T: S: 12/12/2018 (0841) [facility] NAME: MOISÉS CANNON [address] PHYS: [place] [address] : 1955 AGE: 63 SEX: F LOC: Z.SI04 A PHONE #: [phone] EXAM DATE: 12/12/2018 STATUS: ADM IN FAX #: [phone] RADIOLOGY NO: PAGE 1 Signed ReportAB [id number] 07:36:00 Test Item Value Reference Range Comments AB COCCIDIOIDES (test code=COCCIAB) <0.150 < 1:2 BASIC METABOLIC [id number] 05:56:00 Test Item Value Reference Range Comments [...] 0.52-1.04 CALCIUM (test code=CA) 8.7 MG/DL 8.4-10.2 [id number] 05:56:00 Test Item Value Reference Range Comments MAGNESIUM (test code=MAG) 1.9 MG/DL 1.6-2.3 CBC W/AUTO [id number] 05:42:00 Test Item Value Reference Range Comments [...] (test code=NRBC#) 0.00 K/mm3 0.0-0.1 AG HISTOPLASMA [id number] 07:26:00 Test Item Value Reference Range Comments AG HISTOPLASMA UA (test code=HISUAAG) <0.5 EIA unit <0.5 ng/mL - XR CHEST [id number] 06:56:00 Patient Name: MOISÉS CANNON Unit No: [id number] EXAMS: CPT CODE: [id number] XR CHEST 1V 52365 Location: U19. CHEST, FRONTAL VIEW HISTORY: S/P [...] (0656) JuanSP17 OrigPrint D/T: S: 12/11/2018 (0700) [facility] NAME: MOISÉS CANNON [address] PHYS: [place] [address] : 1955 AGE: 63 SEX: F LOC: Z.SI04 A PHONE #: [phone] EXAM DATE: 12/11/2018 STATUS: ADM IN FAX #: [phone] RADIOLOGY NO: PAGE 1 Signed ReportBASIC METABOLIC [id number] 05:46:00 Test Item Value Reference Range Comments [...] 0.52-1.04 CALCIUM (test code=CA) 8.7 MG/DL 8.4-10.2 [id number] 05:46:00 Test Item Value Reference Range Comments MAGNESIUM (test code=MAG) 1.9 MG/DL 1.6-2.3 CBC W/AUTO [id number] 05:28:00 Test Item Value Reference Range Comments [...] (test code=NRBC#) 0.00 K/mm3 0.0-0.1 BASIC METABOLIC [id number] 05:54:00 Test Item Value Reference Range Comments [...] (test code=CA) 8.7 MG/DL 8.4-10.2 CBC W/AUTO [id number] 05:35:00 Test Item Value Reference Range Comments [...] (test code=NRBC#) 0.00 K/mm3 0.0-0.1 BASIC METABOLIC [id number] 06:18:00 Test Item Value Reference Range Comments [...] (test code=CA) 8.5 MG/DL 8.4-10.2 CBC W/AUTO [id number] 05:48:00 Test Item Value Reference Range Comments [...] code=NRBC#) 0.00 K/mm3 0.0-0.1 - XR CHEST [id number] 11:16:00 Patient Name: MOISÉS CANNON Unit No: [id number] EXAMS: CPT CODE: [id number] XR CHEST 1V 82376 Site ID: [id number] HISTORY: Subcutaneous emphysema, right [...] JuanAJP6 Orig Print D/T: S: 12/08/2018 (1119) [facility] NAME: MOISÉS CANNON [address] PHYS: [place] [address] : 1955 AGE: 63 SEX: F LOC: Z.SI04 A PHONE #: [phone] EXAM DATE: 12/08/2018 STATUS: ADM IN FAX #: [phone] NO: PAGE 1 Signed [id number] 08:28:00 Test Item Value Reference Range Comments MAGNESIUM (test code=MAG) 2.0 MG/DL 1.6-2.3 - XR CHEST [id number] 07:15:00 Patient Name: MOISÉS CANNON Unit No: [id number] EXAMS: CPT CODE: [id number] XR CHEST 1V 07710 Location of dictation: B2 Portable chest one [...] (0715) Marlena.PX Orig Print D/T: S: (0718) [facility] NAME: MOISÉS CANNON [address] PHYS: [place] [address] : 1954 AGE: 63 SEX: F LOC: Z.SI04 A PHONE #: [phone] EXAM DATE: STATUS: ADM IN FAX #: [phone] RADIOLOGY NO: PAGE 1 Signed Report- XR CHEST [id number] 07:08: 00 Patient Name: MOISÉS CANNON Unit No: [id number] EXAMS: CPT CODE: [id number] XR CHEST 1V 35816 Location of dictation: B2 Portable chest one [...] Marlena.PX Orig Print D/T: S: 12/08/2018 (0711) [facility] Aless[facility] NAME: MOISÉS CANNON [address] PHYS: [place] [address] : 1955 AGE: 63 SEX: F LOC: Z.SI04 A PHONE #: [phone] EXAM DATE: STATUS: ADM IN FAX #: [phone] RADIOLOGY NO: PAGE 1 [facility] ART[facility]LO[facility] [id number] 07:01:00 Test Item Value Reference Range Comments POC ARTERIAL BLOOD GAS PH (test code=POCPHA) 7.382 7.35-7.45 POC ARTERIAL BLOOD GAS PCO2 (test 51.4 mmHg 35.0-45.0 code=KTYIEY6L) POC ARTERIAL BLOOD GAS PO2 (test 82 75.0-100.0 code=HREWY6Y) POC HCO3 ARTERIAL (test code=JVUCPD6Z) 30.5 MMOL/L 20.0-26.0 POC BASE EXCESS (test code=POCBEA) 5.0 MMOL/L -3.0-3.0 POC O2 SATURATION (test code=POCO2S) 96 % 92.0-98.5 FIO2 (test code=FIO2A) 40 % 21-100 ABG DELIVERY (test code=MARCUS) N/C ABG SITE (test code=SITEA) R Brachial ALLENS TEST (test code=ALLENS) N/A CHECK Ntlucy/RBV~ PROTHROMBIN [id number] 06:11:00 Test Item Value Reference Range Comments [...] recurrent systemic embolism. 3.0 - 4.5 PTT [id number] 06:11:00 Test Item Value Reference Range Comments PTT ACTIVATED (test code=APTT) 23.2 SECONDS 22.0-33.0 BASIC METABOLIC [id number] 06:09:00 Test Item Value Reference Range Comments [...] (test code=CA) 9.0 MG/DL 8.4-10.2 CBC W/AUTO [id number] 05:57:00 Test Item Value Reference Range Comments [...] (test code=NRBC#) 0.00 K/mm3 0.0-0.1 BASIC METABOLIC [id number] 12:08:00 Test Item Value Reference Range Comments [...] CALCIUM (test code=CA) 8.8 MG/DL 8.4-10.2 PROTHROMBIN [id number] 12:01:00 Test Item Value Reference Range Comments [...] recurrent systemic embolism. 3.0 - 4.5 PTT [id number] 12:01:00 Test Item Value Reference Range Comments PTT ACTIVATED (test code=APTT) 24.1 SECONDS 21.0-33.0 CBC W/AUTO [id number] 11:49:00 Test Item Value Reference Range Comments [...] code=NRBC#) 0.00 K/mm3 0.0-0.1 - XR CHEST [id number] 08:32:00 Patient Name: MOISÉS CANNON Unit No: [id number] EXAMS: CPT CODE: [id number] XR CHEST 1V 21194 Location of dictation: B2 Portable chest one [...] Marlena.PXC Orig Print D/T: S: 12/07/2018 (0835) [facility] NAME: MOISÉS CANNON [address] PHYS: [place] [address] : 1955 AGE: 63 SEX: F LOC: Z.SI04 A PHONE #: [phone] EXAM DATE: 12/07/2018 STATUS: ADM IN FAX #: [phone] RADIOLOGY NO: PAGE 1 Signed Report- XR CHEST [id number] 07:52:00 Patient Name: MOISÉS CANNON Unit No: [id number] EXAMS: CPT CODE: [id number] XR CHEST 1V 72779 Location of dictation: B2 Portable chest one [...] Orig Print D/T: S: 12/06/2018 (0755 ) [facility] NAME: MOISÉS CANNON [address] PHYS: [place] [address] : 1955 AGE: 63 SEX: F LOC: Z.SI04 A PHONE #: [phone] EXAM DATE: 12/06/2018 STATUS: ADM IN FAX #: [phone] RADIOLOGY NO: PAGE 1 Signed ReportBASIC METABOLIC [id number] 05:28:00 Test Item Value Reference Range Comments [...] 0.52-1.04 CALCIUM (test code=CA) 9.1 MG/DL 8.4-10.2 [id number] 05:28:00 Test Item Value Reference Range Comments MAGNESIUM (test code=MAG) 2.0 MG/DL 1.6-2.3 CBC W/AUTO [id number] 05:05:00 Test Item Value Reference Range Comments [...] RBC # (test code=NRBC#) 0.00 K/mm3 0.0-0.1 [id number] 16:13:00 RUN DATE: 12/05/18 [facility] - Lab PAGE 1 RUN TIME: 1614 Specimen Inquiry RUN USER: INTERFACE PATIENT: MOISÉS CANNON LOC: LAURA U #: [id number] AGE/SX: 63/F ROOM: [facility] RE11/30/18[facility] DR: Chris Rivera MD : 55 BED: A DIS: STATUS: ADM IN TLOC: SPEC #: [id number] RECD: 03/ STATUS: SOUT REQ #: [id number] PAOLA: 11/30/[address] [facility] [address]: Chris Rivera MD ENTERED: 11/30/18 SP TYPE: LUNG OTHR DR: Chito Hanson MD ORDERED: SURG PATH LVL 5/2, FS, AFB/2, GMS/2, TOUCH PREP EA A CODES: Y52590 N28481 - BRONCHUS OF RIG BIOPSY, NOS I53080 F92358 - BRONCHUS OF RIG INFLAMMATION, N N16108 D44705 - BRONCHUS OF RIG GRANULOMATOUS I E95468 R95574 - BRONCHUS OF RIG NECROTIZING GRA D65588 U62345 - BRONCHUS OF RIG NECROSIS, NOS [id number] - BRONCHUS OF RIG DYSPLASIA, NOS X69663 - LUNG, NOS PA8679 P34464 - BODY TISSUE, NO EMPHYSEMA, NOS KF6240 F52056 - BODY TISSUE , NO DYSPLASIA, NOS COPIES TO: Chito Hanson MD [address] [place] [address] [address] [place] [id number] [email or web address] [address] [facility] [place] [address] PROCEDURES: SURG PATH LVL 5 (11/30/18-1835) FS (11/30/18) AFB (-1121) GMS (12/05/18-1121) TOUCH PREP EA A (12/05/18 -1117) TISSUES: A. LUNG, NOS - RUL TISSUE B. LUNG, NOS - RT UPPER LOBE BULLAE CLINICAL HISTORY LUNG LESION CPT CODES CPT CODE(S): 19639T3 , 05566 , 23725 , 89700K5 , , , CONTINUED ON NEXT PAGE RUN DATE: [facility] PAGE 2 RUN TIME: 1614 Specimen Inquiry RUN USER: INTERFACE SPEC #: [id number] PATIENT: MOISÉS CANNON #[id number] ( Continued) FINAL DIAGNOSIS A. Lung, right [...] x 1.3 cm. The nodule is well-circumscribed. [employer] sections of nodule submitted for frozen section [...] 1613 END OF REPORT - XR CHEST [id number] 08:14:00 Patient Name: MOISÉS CANNON Unit No: [id number] EXAMS: CPT CODE: [id number] XR CHEST 1V 19226 Location of dictation: B2 Portable chest one [...] Orig Print D /T: S: 12/05/2018 (0817) [facility] NAME: MOISÉS CANNON [address] PHYS: [place] [address] : 1954 AGE: 63 SEX: F LOC: Z.SI04 A PHONE #: [phone] EXAM DATE: STATUS: ADM IN FAX #: [phone] RADIOLOGY NO: PAGE 1 Signed ReportBASIC METABOLIC [id number] 06:36 :00 Test Item Value Reference Range [...] 0.52-1.04 CALCIUM (test code=CA) 9.0 MG/DL 8.4-10.2 [id number] 06:36:00 Test Item Value Reference Range Comments MAGNESIUM (test code=MAG) 1.9 MG/DL 1.6-2.3 CBC W/AUTO [id number] 06:20:00 Test Item Value Reference Range Comments [...] (test code=NRBC#) 0.00 K/mm3 0.0-0.1 BASIC METABOLIC [id number] 21:07:00 Test Item Value Reference Range Comments [...] 0.52-1.04 CALCIUM (test code=CA) 9.0 MG/DL 8.4-10.2 [id number] 21:07:00 Test Item Value Reference Range Comments MAGNESIUM (test code=MAG) 1.8 MG/DL 1.6-2.3 ARTERIAL BLOOD [id number] 20:51:00 Test Item Value Reference Range Comments [...] FIO2 (test code=COHBGFFIO2) 36 % GLUCOSE BEDSIDE [id number] 14:59:00 Test Item Value Reference Range Comments GLUCOSE BEDSIDE TEST NOT PERFORMED 60-99 Previously reported TESTING (test MG/DL result: 55 MG/DLEdited code=GLUBED) by: MARISATQL on 12/04/18:19485612/04/18 1457: GLU BED previously reported as: 55 L MG/DL GLUCOSE BEDSIDE [id number] 13:35:00 Test Item Value Reference Range Comments GLUCOSE BEDSIDE TESTING (test code=GLUBED) 55 MG/DL 60-99 CALCIUM [id number] 12:44:00 Test Item Value Reference Range Comments CALCIUM IONIZED (test code=BABAK) 1.11 MMOL/L 1.12-1.30 PROTHROMBIN [id number] 10:01:00 Test Item Value Reference Range Comments [...] systemic embolism. 3.0 - 4.5 Comments to [employer]: nonePTT [id number] 10:01:00 Test Item Value Reference Range Comments PTT ACTIVATED (test code=APTT) 24.2 SECONDS 22.0-33.0 Comments to Staff [employer]: none- XR CHEST [id number] 09:06:00 Patient Name: MOISÉS CANNON Unit No: [id number] EXAMS: CPT CODE: [id number] XR CHEST 1V 16885 Location of dictation: B2 Portable chest one [...] (905) [email or web address] Orig Print D/T: S: (909) [facility] NAME: MOISÉS CANNON [id number] PHYS: DONY.Gi[place] [address] : 1955 AGE: 63 SEX: F LOC: Z.SI04 A PHONE #: [phone] EXAM DATE: 12/04/2018 STATUS: ADM IN FAX #: [phone] RADIOLOGY NO: PAGE 1 Signed ReportBASIC METABOLIC [id number] 07:35:00 Test Item Value Reference Range Comments [...] 0.52-1.04 CALCIUM (test code=CA) 9.1 MG/DL 8.4-10.2 [id number] 07:35:00 Test Item Value Reference Range Comments PHOSPHOROUS (test code=PHOS) 3.7 MG/DL 2.5-4.5 [id number] 07:35:00 Test Item Value Reference Range Comments MAGNESIUM (test code=MAG) 1.9 MG/DL 1.6-2.3 CBC W/AUTO [id number] 07:25:00 Test Item Value Reference Range Comments [...] code=NRBC#) 0.00 K/mm3 0.0-0.1 - XR CHEST [id number] 18:47:00 Patient Name: MOISÉS CANNON Unit No: [id number] EXAMS: CPT CODE: [id number] XR CHEST 1V 53685 EXAM: Portable chest one view. Location code:J9 [...] [email or web address] Orig Print D/T: S: 12/03/2018 (185) [facility] NAME: MOISÉS CANNON [id number] PHYS: DONY[place] [address] : 1955 AGE: 63 SEX: F LOC: Z.355 A PHONE #: [phone] EXAM DATE: 12/03/2018 STATUS: ADM IN FAX #:[phone] RADIOLOGY NO: PAGE 1 Signed Report- XR CHEST [id number] 07:46:00 Patient Name: MOISÉS CANNON Unit No: [id number] EXAMS: CPT CODE: [id number] XR CHEST 1V 64942 Location of dictation: B2 Portable chest one [...] [email or web address] Orig Print D/T: S: 12/03/2018 (0749) [facility] NAME: MOISÉS CANNON [id number] PHYS: [place] [address] : 1955 AGE: 63 SEX: F LOC: Z.SI04 A PHONE #: [phone] EXAM DATE: 12/03 STATUS: ADM IN FAX #: [phone] RADIOLOGY NO: PAGE 1 Signed ReportBASIC METABOLIC [id number] 04:54:00 Test Item Value Reference Range Comments [...] 0.52-1.04 CALCIUM (test code=CA) 8.8 MG/DL 8.4-10.2 [id number] 04:54:00 Test Item Value Reference Range Comments MAGNESIUM (test code=MAG) 2.0 MG/DL 1.6-2.3 CBC W/AUTO [id number] 04:29:00 Test Item Value Reference Range Comments [...] code=NRBC#) 0.00 K/mm3 0.0-0.1 - XR CHEST [id number] 06:22:00 Patient Name: MOISÉS CANNON Unit No: [id number] EXAMS: CPT CODE: [id number] XR CHEST 1V 20920 AP VIEW OF THE CHEST LOCATION: R16 [...] [email or web address] Orig Print D/T: S: 12/02/2018 (0644) [facility] NAME: MOISÉS CANNON [id number] PHYS: [place] [address] : 1955 AGE: 63 SEX: F LOC: Z.SI04 A PHONE #: [phone] EXAM DATE: 12/02/2018 STATUS:ADM IN FAX #: [phone] RADIOLOGY NO: PAGE 1 Signed ReportBASIC METABOLIC [id number] 05:59:00 Test Item Value Reference Range Comments [...] 0.52-1.04 CALCIUM (test code=CA) 8.4 MG/DL 8.4-10.2 [id number] 05:59:00 Test Item Value Reference Range Comments MAGNESIUM (test code=MAG) 2.1 MG/DL 1.6-2.3 CBC W/AUTO [id number] 05:53:00 Test Item Value Reference Range Comments [...] RBC # (test code=NRBC#) 0.00 K/mm3 0.0-0.1 [id number] 21:37:00 Test Item Value Reference Range Comments POTASSIUM (test code=K) 3.2 MMOL/L 3.5-5.1 Is this a LINE draw? YBASIC METABOLIC [id number] 07:40:00 Test Item Value Reference Range Comments [...] 0.52-1.04 CALCIUM (test code=CA) 8.4 MG/DL 8.4-10.2 [id number] 07:40:00 Test Item Value Reference Range Comments MAGNESIUM (test code=MAG) 1.9 MG/DL 1.6-2.3 CBC W/AUTO [id number] 07:27:00 Test Item Value Reference Range Comments [...] code=NRBC#) 0.00 K/mm3 0.0-0.1 - XR CHEST [id number] 06:27:00 Patient Name: MOISÉS CANNON Unit No: [id number] EXAMS: CPT CODE: [id number] XR CHEST 1V 13788 Exam: Chest portable erect Location: F6 History: [...] JuanFC Orig Print D/T: S: 12/01/2018 (629) [facility] NAME: MOISÉS CANNON [id number] PHYS: [place] [address] : 1955 AGE: 63 SEX: F LOC: Z.SI04 A PHONE #: [phone] EXAM DATE: 12/01/2018 STATUS: ADM IN FAX #: [phone] RADIOLOGY NO: PAGE 1 Signed ReportBASIC METABOLIC [id number] 20:46:00 Test Item Value Reference Range Comments [...] 0.52-1.04 CALCIUM (test code=CA) 8.8 MG/DL 8.4-10.2 [id number] 20:46:00 Test Item Value Reference Range Comments MAGNESIUM (test code=MAG) 1.9 MG/DL 1.6-2.3 BASIC METABOLIC [id number] 20:42:00 Test Item Value Reference Range Comments [...] 0.52-1.04 CALCIUM (test code=CA) 8.8 MG/DL 8.4-10.2 [id number] 20:42:00 Test Item Value Reference Range Comments MAGNESIUM (test code=MAG) 1.9 MG/DL 1.6-2.3 CBC W/AUTO [id number] 20:04:00 Test Item Value Reference Range Comments [...] (test code=NRBC#) 0.00 K/mm3 0.0-0.1 ARTERIAL BLOOD [id number] 19:53:00 Test Item Value Reference Range Comments [...] (test code=COHBGFFIO2) 100 % - XR CHEST [id number] 19:38:00 Patient Name: MOISÉS CANNON Unit No: [id number] EXAMS: CPT CODE: [id number] XR CHEST 1V 10551 EXAM: CHEST ONE VIEW INDICATION: Post Op [...] bilaterally. No pneumothorax is identified. LOCATION: B2 [id number] Reported and signed by: Mahi Campa MD CC: Chito Hanson MD Technologist: Jo-Ann Hall (RT) Transcrpt Date/Tm/Trnsp: 11/30/2018 (1937) 16 Orig Print D/T: S: 11/30/2018 (1940) [facility] NAME: MOISÉS CANNON [address] PHYS: [place] [address] : 1955 AGE: 63 SEX: F LOC: ZCourtneyDSU PHONE #: [phone] EXAM DATE: 11/30/2018 STATUS: REG [facility] [place] FA[place] #: [phone] RADIOLOGY NO: PAGE 1 Signed ReportHIV 12 AB [id number] 17:53:00 Test Item Value Reference Range Comments AB HIV 1 2 (test NON REACTIVE NON-REAC NOTE: A NONREACTIVE RESULT code=JCX50XZ) INDICATES THAT HIV-1 AND HIV-2ANTIBODIES HAVE NOT BEEN FOUND IN THIS PATIENT SPECIMEN. ANON-REACTIVE RESULT, HOWEVER, DOES NOT PRECLUDE PREVIOUSEXPOSURE OR INFECTION WITH HIV1. AG HIV1 P24 (test NON REACTIVE NONE REAC code=AYT0V01) PROTHROMBIN [id number] 15:49:00 Test Item Value Reference Range Comments [...] recurrent systemic embolism. 3.0 - 4.5 PTT [id number] 15:49:00 Test Item Value Reference Range Comments PTT ACTIVATED (test code=APTT) 23.4 SECONDS 22.0-33.0 - XR CHEST 2 [id number] 15:47:00 Patient Name: MOISÉS CANNON Unit No: [id number] EXAMS: CPT CODE: [id number] XR CHEST 2 V 40924 EXAM: CHEST 2 VIEWS INDICATION: PRE-OP COMPARISON: [...] MD CC: Chito Hanson MD Technologist: [facility]LY [facility] STUDENT ; Christian Villavicencio, RT(R) Transcrpt Date/Tm/Trnsp: 11/28/2018 ( 1547) 16 Orig Print D/T: S: 11/28/2018 (3709) [facility] NAME: MOISÉS CANNON[address] PHYS: [place] [address] : 1955 AGE: 63 SEX: F LOC: Z.5MU PHONE #: [phone] EXAM DATE: 11/28/2018 STATUS: PRE IN FAX #: [phone] RADIOLOGY NO: PAGE 1 Signed ReportBASIC METABOLIC [id number] 15:42:00 Test Item Value Reference Range Comments [...] (test code=CA) 9.2 MG/DL 8.4-10.2 CBC W/AUTO [id number] 15:32:00 Test Item Value Reference Range Comments [...] K/mm3 0.0-0.1 - CTA ABD PEL W [id number] 10:28:00 Patient Name: MOISÉS CANNON Unit No: [id number] Report Has Been Amended EXAMS: CPT CODE: [id number] CTA ABD PEL W CONT 99596 Addendum - 11/15/2018 SIGNED 11/15/2018 ADDENDUM: [id number] CT/CTAAPWCONTAddendum: 3-D/MIP reconstructions of the central arteries [...] of the aortoiliac stent graft are patent. [facility]: MO[facility]S CANNON [address] PHYS: [place] [address] : 1955 AGE:63 SEX: F LOC: Z.CTS PHONE #: [phone] EXAM DATE: 11/06/2018 STATUS: DEP CLI FAX #: [phone] RAD #: D/C DT PAGE 1 Signed Report (CONTINUED) Patient Name: MOISÉS CANNON Unit No: [id number] Report Has Been Amended * * EXAMS: CPT CODE: [id number] CTA ABD PEL W CONT 96569 < Continued> Bilateral external iliac arteries are [...] Kalen CTDI: DLP: Trnscrpt: 2018 (1346) t.SDR.RB24 [facility] NAME: MOISÉS CANNON [address] PHYS: [place] [address] : 1955 AGE: 63 SEX: F LOC: Z.CTS PHONE #: [phone] DATE: 11/06/2018 STATUS: DEP CLI FAX #: [phone] RAD #: D/C DT PAGE 2 Signed Report Patient Name: MOISÉS CANNON Unit No: [id number] Report Has Been Amended EXAMS: CPT CODE: [id number] CTA ABD PEL W CONT 35241 <Continued> Orig Print D/T: S: 11/06/2018 (0164) [facility] NAME: MOISÉS CANNON [address] PHYS:[place] [address] : 1955 AGE: 63 SEX: F LOC: KAYLYN PHONE #: [phone] EXAM DATE: 11/06/2018 STATUS: DEP CLI FAX #: [phone] RAD #: D/C DT PAGE 3 Signed ReportBEDSIDE [id number] 14:50:00 Test Item Value Reference Range Comments BEDSIDE CREATININE (test code=CREATBED) 0.6 MG/DL 0.6-1.4 - CT CHEST [id number] 14:06:00 Patient Name: MOISÉS CANNON Unit No: [id number] EXAMS: CPT CODE: [id number] CT CHEST W/CONTRAST 81162 EXAM: Chest CT with contrast Location: B2 INDICATION:Lung nodule COMPARISON: Chest x-ray on 12/21/2015 TECHNIQUE: Helical CT of the chest was performed following the administration of 100 mL Isovue-370 IV contrast. 5 mm axial and coronal and sagittal reformatted images were performed. DISCUSSION: Lungs and airways: A 14 mm rounded right upper lobe nodule is identified. This is visible on the studio designer film, but was not evident on the [...] pleural surface. This is visible on the studio designer film, and was not present on the [...] reconstruction technique. [facility] NAME: MOISÉS CANNON [address] PHYS: [place] [address] : 1955 AGE: 63 SEX: F : GarlandCTS PHONE #: [phone] EXAM DATE: 11/06/2018 STATUS: REG CLI FAX #: [phone] RAD #: D/C DT PAGE 1 Signed Report ( CONTINUED) Patient Name: MOISÉS CANNON Unit No: [id number] EXAMS: CPT CODE: [id number] CT CHEST W/CONTRAST 66323 < Continued> DLP: 1708 mGy-cm CTDI: 51 mGy at 1406 Reported and signed by: Jake Menchaca MD CC: Chito Hanson MD Technologist: Anam Bill, RT(R); Kalen CTDI: DLP: Trnscrpt: 11/06/2018 ( 1406) t.SDR.BC0 [facility] NAME: MOISÉS CANNON [address]: [place] [address] : 1955 AGE: 63 SEX: F LOC: GarlandCTS PHONE #: [phone] EXAM DATE: 11/06/2018 STATUS: REG CLI FAX #: [phone] RAD #: D/C DT PAGE 2 Signed Report Patient Name: MOISÉS CANNON Unit No: [id number] EXAMS: CPT CODE: [id number] CT CHEST W/CONTRAST 98818 <Continued> Orig Print D/T: S: 11/06/2018 (1235) [facility] NAME : MOISÉS CANNON [address] PHYS: [place] [address] : 1954 AGE: 63 SEX: F LOC: Z.CTS PHONE #: [phone] EXAM DATE: 11/06/2018 STATUS: REG CLI FAX #: [phone] RAD #: D/C DT PAGE 3 Signed Report- CTA ABD PEL W [id number] 13:46:00 Patient Name: MOISÉS CANNON Unit No: [id number] EXAMS: CPT CODE: [id number] CTA ABD PEL W CONT 85737 CTA Abdomen and Pelvis with and without [...] femoral artery. 4. Interval right renal infarct. [facility] NAME: MOISÉS CANNON [address] PHYS: Chris Sky MD [place] [id number] : 1955 AGE: 63 SEX: F LOC: WinFreeCandy PHONE #: [phone] EXAM DATE: 11/06/2018 STATUS: REG CLI FAX #: [phone] RAD #: D/C DT PAGE 1 Signed Report (CONTINUED) Patient Name: MOISÉS CANNON Unit No: [id number] EXAMS: CPT CODE: [id number] CTA ABD PEL W CONT 25297 <Continued> Electronically Signed by Paul Simmons on at 1346 Reported and signed by: Chris Simmons M.D. CC: Chito Hanson MD Technologist: Anam Bill, RT(R); Kalen CTDI: DLP: Trnscrpt : 11/06/2018 (6046) tJUDAH.RB24 [facility] NAME: MOISÉS CANNON [id number] PHYS : [place] [address] : 09/1954 AGE: 63 SEX: F LOC: [employer]andy PHONE #: [phone] EXAM DATE: STATUS: REG CLI FAX #: [phone] RAD #: D/C DT PAGE 2 Signed Report Patient Name: MOISÉS CANNON Unit No: [id number] EXAMS: CPT CODE : [id number] CTA ABD PEL WCONT 67294 <Continued> Orig Print D/T: S: 11/06/2018 (1349) [facility] NAME: MOISÉS CANNON [address] PHYS: [place] [address] : 1954 AGE: 63 SEX: F LOC: ZBELIA PHONE #: [phone] EXAM DATE: 11/06/2018 STATUS: REG CLI FAX #: [phone] RAD #: D/C DT PAGE 3 Signed ReportCBC W/PLT COUNT & AUTO [id number] 05:53:00 Test Item Value Reference Range Comments WHITE BLOOD CELL COUNT (BEAKER) (test fqyr=030) 12.3 K/ L 4.0-10.0 RED BLOOD CELL COUNT (BEAKER) (test wyaa=412) 3.32 M/ L 4.00-5.00 HEMOGLOBIN (BEAKER) (test okvy=802) 10.4 GM/DL 12.0-15.5 HEMATOCRIT (BEAKER) (test ickm=185) 33.8 % 36.0-46.0 MEAN CORPUSCULAR VOLUME (BEAKER) (test uadk=519) 101.8 fL 82.0-99.0 MEAN CORPUSCULAR HEMOGLOBIN (BEAKER) (test 31.3 pg 27.0-33.0 yjar=642) MEAN CORPUSCULAR HEMOGLOBIN CONC (BEAKER) (test 30.8 GM/DL 32.0-36.0 plev=033) RED CELL DISTRIBUTION WIDTH (BEAKER) (test 14.6 % 12.0-15.0 zkpu=035) PLATELET COUNT (BEAKER) (test hiif=217) 395 K/CU MM 150-430 MEAN PLATELET VOLUME (BEAKER) (test dmdk=233) 9.7 fL 6.0-11.5 NUCLEATED RED BLOOD CELLS (BEAKER) (test 0 /100 WBC 0-0 hkku=777) NEUTROPHILS RELATIVE PERCENT (BEAKER) (test 66 % cxis=956) LYMPHOCYTES RELATIVE PERCENT (BEAKER) (test 17 % aqbv=693) MONOCYTES RELATIVE PERCENT (BEAKER) (test 12 % xacz=230) EOSINOPHILS RELATIVE PERCENT (BEAKER) (test 2 % sspo=578) BASOPHILS RELATIVE PERCENT (BEAKER) (test 1 % rlns=449) NEUTROPHILS ABSOLUTE COUNT (BEAKER) (test 8.14 K/ L 1.80-8.00 ppjn=416) LYMPHOCYTES ABSOLUTE COUNT (BEAKER) (test 2.04 K/ L 1.48-4.50 pane=971) MONOCYTES ABSOLUTE COUNT (BEAKER) (test 1.46 K/ L 0.00-1.30 otte=895) EOSINOPHILS ABSOLUTE COUNT (BEAKER) (test 0.28 K/ L 0.00-0.50 hkuz=409) BASOPHILS ABSOLUTE COUNT (BEAKER) (test 0.07 K/ L 0.00-0.20 kvut=938) IMMATURE GRANULOCYTES-RELATIVE PERCENT (BEAKER) 3 % 0-0 (test bshs=7238) BASIC METABOLIC [id number] 05:36:00 Test Item Value Reference Range Comments SODIUM (BEAKER) (test 139 meq/L 135-148 yhxm=933) POTASSIUM (BEAKER) (test 4.5 meq/L 3.6-5.5 adgy=571) CHLORIDE (BEAKER) (test 102 meq/L 98-106 pmvq=066) CO2 (BEAKER) (test 28 meq/L 20-29 blhk=837) BLOOD UREA NITROGEN 14 mg/dL 10-26 (BEAKER) (test uqxs=347) CREATININE (BEAKER) (test 0.63 mg/dL 0.50-1.20 rkfv=566) GLUCOSE RANDOM (BEAKER) 91 mg/dL 70-110 (test rqqa=652) CALCIUM (BEAKER) (test 9.3 mg/dL 8.5-10.5 jwls=643) EGFR (BEAKER) (test 95 mL/min/1.73 sq m ESTIMATED GFR IS NOT bcnz=1621) ACCURATE CREATININE CLEARANCE IN PREDICTING GLOMERULAR FILTRATION RATE. ESTIMATED GFR IS NOT APPLICABLE FOR DIALYSIS PATIENTS. CT, CTA AAA, W/ RAVINDER.EXT.[id number] 18:40:00Addendum BeginsREPORT STATUS:A Addendum: I agree with the previously described non vascular findings. Additionally there is mild skin thickening in the lower anterior abdominal wall and subcutaneous edema which may be secondary to cellulitis. Signed: Dain [place] Verified Date/Time: 09/17/2018 18: 40:47 Reading Location: [place] [address] Angio Body Reading RoomAddendum EndsFINAL REPORT CT [...] and during intravenous contrast administration using a ApplyMap multidetector CT scanner. Images were obtained before [...] dictated regarding the non-vascular findings by the Parent Educator Radiologist. Signed: Morteza Johnson MDReport Verified Date/Time: 09/17/2018 14:46:36 Reading Location: [facility] P047 Cardiology [facility] METABOLIC [id number] 07: 21:00 Test Item Value Reference Range Comments SODIUM (BEAKER) (test 145 meq/L 135-148 lyxr=026) POTASSIUM (BEAKER) (test 4.0 meq/L 3.6-5.5 ozsd=684) CHLORIDE (BEAKER) (test 103 meq/L 98-106 hxaq=940) CO2 (BEAKER) (test 32 meq/L 20-29 kdas=824) BLOOD UREA NITROGEN 12 mg/dL 10-26 (BEAKER) (test wuvr=527) CREATININE (BEAKER) (test 0.63 mg/dL 0.50-1.20 lako=442) GLUCOSE RANDOM (BEAKER) 78 mg/dL 70-110 (test nadr=820) CALCIUM (BEAKER) (test 8.5 mg/dL 8.5-10.5 hiif=337) EGFR (BEAKER) (test 95 mL/min/1.73 sq m ESTIMATED GFR IS NOT xwbx=5416) ACCURATE CREATININE CLEARANCE IN PREDICTING GLOMERULAR FILTRATION RATE. ESTIMATED GFR IS NOT APPLICABLE FOR DIALYSIS PATIENTS. [id number] 07:20:00 Test Item Value Reference Range Comments PHOSPHORUS (BEAKER) (test tmqp=294) 3.8 mg/dL 2.5-4.5 [id number] 07:15:00 Test Item Value Reference Range Comments MAGNESIUM (BEAKER) (test hlds=453) 1.9 mg/dL 1.5-3.0 CBC W/PLT COUNT & AUTO [id number] 06:56:00 Test Item Value Reference Range Comments WHITE BLOOD CELL COUNT (BEAKER) (test vzjz=917) 10.8 K/ L 4.0-10.0 RED BLOOD CELL COUNT (BEAKER) (test xdnf=121) 3.02 M/ L 4.00-5.00 HEMOGLOBIN (BEAKER) (test qfeh=139) 9.7 GM/DL 12.0-15.5 HEMATOCRIT (BEAKER) (test lqen=557) 30.4 % 36.0-46.0 MEAN CORPUSCULAR VOLUME (BEAKER) (test uarj=973) 100.7 fL 82.0-99.0 MEAN CORPUSCULAR HEMOGLOBIN (BEAKER) (test 32.1 pg 27.0-33.0 fclw=279) MEAN CORPUSCULAR HEMOGLOBIN CONC (BEAKER) (test 31.9 GM/DL 32.0-36.0 hnmc=617) RED CELL DISTRIBUTION WIDTH (BEAKER) (test 14.7 % 12.0-15.0 nxky=211) PLATELET COUNT (BEAKER) (test znic=047) 344 K/CU MM 150-430 MEAN PLATELET VOLUME (BEAKER) (test szdt=499) 9.9 fL 6.0-11.5 NUCLEATED RED BLOOD CELLS (BEAKER) (test 0 /100 WBC 0-0 lwiv=379) NEUTROPHILS RELATIVE PERCENT (BEAKER) (test 66 % oulk=761) LYMPHOCYTES RELATIVE PERCENT (BEAKER) (test 17 % dtch=507) MONOCYTES RELATIVE PERCENT (BEAKER) (test 10 % ggjb=278) EOSINOPHILS RELATIVE PERCENT (BEAKER) (test 4 % lxbl=440) BASOPHILS RELATIVE PERCENT (BEAKER) (test 1 % mkuu=538) NEUTROPHILS ABSOLUTE COUNT (BEAKER) (test 7.09 K/ L 1.80-8.00 uqge=556) LYMPHOCYTES ABSOLUTE COUNT (BEAKER) (test 1.87 K/ L 1.48-4.50 fhap=242) MONOCYTES ABSOLUTE COUNT (BEAKER) (test 1.02 K/ L 0.00-1.30 ojor=257) EOSINOPHILS ABSOLUTE COUNT (BEAKER) (test 0.41 K/ L 0.00-0.50 rfza=562) BASOPHILS ABSOLUTE COUNT (BEAKER) (test 0.05 K/ L 0.00-0.20 yexz=772) IMMATURE GRANULOCYTES-RELATIVE PERCENT (BEAKER) 3 % 0-0 (test bxsr=9080) BASIC METABOLIC [id number] 05:51:00 Test Item Value Reference Range Comments SODIUM (BEAKER) (test 141 meq/L 135-148 zwnl=573) POTASSIUM (BEAKER) (test 4.0 meq/L 3.6-5.5 dflj=801) CHLORIDE (BEAKER) (test 105 meq/L 98-106 fdde=341) CO2 (BEAKER) (test 32 meq/L 20-29 jnla=916) BLOOD UREA NITROGEN 14 mg/dL 10-26 (BEAKER) (test xvoh=133) CREATININE (BEAKER) (test 0.60 mg/dL 0.50-1.20 sbvp=942) GLUCOSE RANDOM (BEAKER) 87 mg/dL 70-110 (test uolw=377) CALCIUM (BEAKER) (test 8.1 mg/dL 8.5-10.5 zxpn=109) EGFR (BEAKER) (test 101 mL/min/1.73 sq m ESTIMATED GFR IS NOT oymc=2004) ACCURATE CREATININE CLEARANCE IN PREDICTING GLOMERULAR FILTRATION RATE. ESTIMATED GFR IS NOT APPLICABLE FOR DIALYSIS PATIENTS. CBC W/PLT COUNT & AUTO [id number] 05:23:00 Test Item Value Reference Range Comments WHITE BLOOD CELL COUNT (BEAKER) (test engp=087) 9.3 K/ L 4.0-10.0 RED BLOOD CELL COUNT (BEAKER) (test cwwt=955) 2.85 M/ L 4.00-5.00 HEMOGLOBIN (BEAKER) (test urya=172) 8.9 GM/DL 12.0-15.5 HEMATOCRIT (BEAKER) (test oxoc=065) 29.2 % 36.0-46.0 MEAN CORPUSCULAR VOLUME (BEAKER) (test jefo=704) 102.5 fL 82.0-99.0 MEAN CORPUSCULAR HEMOGLOBIN (BEAKER) (test 31.2 pg 27.0-33.0 uxws=573) MEAN CORPUSCULAR HEMOGLOBIN CONC (BEAKER) (test 30.5 GM/DL 32.0-36.0 lzqk=672) RED CELL DISTRIBUTION WIDTH (BEAKER) (test 14.9 % 12.0-15.0 flyi=218) PLATELET COUNT (BEAKER) (test ksmw=377) 303 K/CU MM 150-430 MEAN PLATELET VOLUME (BEAKER) (test smcr=285) 9.6 fL 6.0-11.5 NUCLEATED RED BLOOD CELLS (BEAKER) (test 0 /100 WBC 0-0 vohv=582) NEUTROPHILS RELATIVE PERCENT (BEAKER) (test 63 % ifyt=726) LYMPHOCYTES RELATIVE PERCENT (BEAKER) (test 21 % vnec=199) MONOCYTES RELATIVE PERCENT (BEAKER) (test 10 % hbzl=861) EOSINOPHILS RELATIVE PERCENT (BEAKER) (test 3 % kcaz=953) BASOPHILS RELATIVE PERCENT (BEAKER) (test 0 % vvjp=342) NEUTROPHILS ABSOLUTE COUNT (BEAKER) (test 5.86 K/ L 1.80-8.00 ufxg=025) LYMPHOCYTES ABSOLUTE COUNT (BEAKER) (test 1.96 K/ L 1.48-4.50 icvd=162) MONOCYTES ABSOLUTE COUNT (BEAKER) (test 0.95 K/ L 0.00-1.30 srud=287) EOSINOPHILS ABSOLUTE COUNT (BEAKER) (test 0.29 K/ L 0.00-0.50 nfaq=110) BASOPHILS ABSOLUTE COUNT (BEAKER) (test 0.03 K/ L 0.00-0.20 fufv=655) IMMATURE GRANULOCYTES-RELATIVE PERCENT (BEAKER) 2 % 0-0 (test pjgt=8068) B-TYPE NATRIURETIC FACTOR (BNP)2018-09-15 05:51:00 Test Item Value Reference Range Comments B-TYPE NATRIURETIC PEPTIDE (BEAKER) (test 418 pg/mL 0-100 kfzx=975) [id number] 05:49:00 Test Item Value Reference Range Comments PHOSPHORUS (BEAKER) (test bqsw=471) 1.5 mg/dL 2.5-4.5 BASIC METABOLIC [id number] 05:45:00 Test Item Value Reference Range Comments SODIUM (BEAKER) (test 144 meq/L 135-148 mfrh=310) POTASSIUM (BEAKER) (test 4.8 meq/L 3.6-5.5 wplh=755) CHLORIDE (BEAKER) (test 105 meq/L 98-106 iskt=719) CO2 (BEAKER) (test 32 meq/L 20-29 ednm=890) BLOOD UREA NITROGEN 12 mg/dL 10-26 (BEAKER) (test uyoh=324) CREATININE (BEAKER) (test 0.62 mg/dL 0.50-1.20 zbgr=599) GLUCOSE RANDOM (BEAKER) 113 mg/dL 70-110 (test gfac=391) CALCIUM (BEAKER) (test 8.5 mg/dL 8.5-10.5 nvhz=569) EGFR (BEAKER) (test 97 mL/min/1.73 sq m ESTIMATED GFR IS NOT fmbx=1248) ACCURATE CREATININE CLEARANCE IN PREDICTING GLOMERULAR FILTRATION RATE. ESTIMATED GFR IS NOT APPLICABLE FOR DIALYSIS PATIENTS. [id number] 05:39:00 Test Item Value Reference Range Comments MAGNESIUM (BEAKER) (test mvuj=128) 2.3 mg/dL 1.5-3.0 CBC W/PLT COUNT & AUTO [id number] 05:24:00 Test Item Value Reference Range Comments WHITE BLOOD CELL COUNT (BEAKER) (test pkwt=510) 10.9 K/ L 4.0-10.0 RED BLOOD CELL COUNT (BEAKER) (test qmuk=226) 2.93 M/ L 4.00-5.00 HEMOGLOBIN (BEAKER) (test qvap=461) 9.2 GM/DL 12.0-15.5 HEMATOCRIT (BEAKER) (test nktm=650) 29.3 % 36.0-46.0 MEAN CORPUSCULAR VOLUME (BEAKER) (test ryxm=808) 100.0 fL 82.0-99.0 MEAN CORPUSCULAR HEMOGLOBIN (BEAKER) (test 31.4 pg 27.0-33.0 jxin=255) MEAN CORPUSCULAR HEMOGLOBIN CONC (BEAKER) (test 31.4 GM/DL 32.0-36.0 hhov=500) RED CELL DISTRIBUTION WIDTH (BEAKER) (test 14.7 % 12.0-15.0 sdqx=931) PLATELET COUNT (BEAKER) (test ekeb=112) 313 K/CU MM 150-430 MEAN PLATELET VOLUME (BEAKER) (test irea=818) 9.7 fL 6.0-11.5 NUCLEATED RED BLOOD CELLS (BEAKER) (test 0 /100 WBC 0-0 zhvd=403) NEUTROPHILS RELATIVE PERCENT (BEAKER) (test 82 % msnf=189) LYMPHOCYTES RELATIVE PERCENT (BEAKER) (test 9 % jcox=853) MONOCYTES RELATIVE PERCENT (BEAKER) (test 8 % hlcc=515) EOSINOPHILS RELATIVE PERCENT (BEAKER) (test 0 % jhji=306) BASOPHILS RELATIVE PERCENT (BEAKER) (test 0 % wtlm=189) NEUTROPHILS ABSOLUTE COUNT (BEAKER) (test 8.88 K/ L 1.80-8.00 dkab=510) LYMPHOCYTES ABSOLUTE COUNT (BEAKER) (test 1.00 K/ L 1.48-4.50 zsmd=910) MONOCYTES ABSOLUTE COUNT (BEAKER) (test 0.86 K/ L 0.00-1.30 yqon=507) EOSINOPHILS ABSOLUTE COUNT (BEAKER) (test 0.03 K/ L 0.00-0.50 chpj=895) BASOPHILS ABSOLUTE COUNT (BEAKER) (test 0.01 K/ L 0.00-0.20 whaa=947) IMMATURE GRANULOCYTES-RELATIVE PERCENT (BEAKER) 1 % 0-0 (test hjic=1883) BASIC METABOLIC [id number] 21:36:00 Test Item Value Reference Range Comments SODIUM (BEAKER) (test 141 meq/L 135-148 aiih=343) POTASSIUM (BEAKER) (test 3.2 meq/L 3.6-5.5 jtpo=695) CHLORIDE (BEAKER) (test 102 meq/L 98-106 vtuu=633) CO2 (BEAKER) (test 31 meq/L 20-29 hjgh=283) BLOOD UREA NITROGEN 9 mg/dL 10-26 (BEAKER) (test bwon=653) CREATININE (BEAKER) (test 0.65 mg/dL 0.50-1.20 tpim=104) GLUCOSE RANDOM (BEAKER) 150 mg/dL 70-110 (test gpup=604) CALCIUM (BEAKER) (test 8.3 mg/dL 8.5-10.5 qqlg=043) EGFR (BEAKER) (test 92 mL/min/1.73 sq m ESTIMATED GFR IS NOT acel=8876) ACCURATE CREATININE CLEARANCE IN PREDICTING GLOMERULAR FILTRATION RATE. ESTIMATED GFR IS NOT APPLICABLE FOR DIALYSIS PATIENTS. CBC W/PLT COUNT & AUTO [id number] 16:26:00 Test Item Value Reference Range Comments WHITE BLOOD CELL COUNT (BEAKER) (test fjim=196) 8.1 K/ L 4.0-10.0 RED BLOOD CELL COUNT (BEAKER) (test onlc=557) 2.93 M/ L 4.00-5.00 HEMOGLOBIN (BEAKER) (test yvez=179) 9.3 GM/DL 12.0-15.5 HEMATOCRIT (BEAKER) (test koju=972) 28.7 % 36.0-46.0 MEAN CORPUSCULAR VOLUME (BEAKER) (test hrny=893) 98.0 fL 82.0-99.0 MEAN CORPUSCULAR HEMOGLOBIN (BEAKER) (test 31.7 pg 27.0-33.0 gqqp=433) MEAN CORPUSCULAR HEMOGLOBIN CONC (BEAKER) (test 32.4 GM/DL 32.0-36.0 sxxs=180) RED CELL DISTRIBUTION WIDTH (BEAKER) (test 14.5 % 12.0-15.0 mkpq=550) PLATELET COUNT (BEAKER) (test pnns=149) 277 K/CU MM 150-430 MEAN PLATELET VOLUME (BEAKER) (test nyfg=537) 9.5 fL 6.0-11.5 NUCLEATED RED BLOOD CELLS (BEAKER) (test 0 /100 WBC 0-0 ouqv=054) NEUTROPHILS RELATIVE PERCENT (BEAKER) (test 89 % qfer=030) LYMPHOCYTES RELATIVE PERCENT (BEAKER) (test 7 % bqda=065) MONOCYTES RELATIVE PERCENT (BEAKER) (test 3 % jgfy=176) EOSINOPHILS RELATIVE PERCENT (BEAKER) (test 0 % hkku=621) BASOPHILS RELATIVE PERCENT (BEAKER) (test 0 % lthf=741) NEUTROPHILS ABSOLUTE COUNT (BEAKER) (test 7.22 K/ L 1.80-8.00 lcuy=987) LYMPHOCYTES ABSOLUTE COUNT (BEAKER) (test 0.55 K/ L 1.48-4.50 ttzh=325) MONOCYTES ABSOLUTE COUNT (BEAKER) (test 0.25 K/ L 0.00-1.30 fkix=067) EOSINOPHILS ABSOLUTE COUNT (BEAKER) (test 0.01 K/ L 0.00-0.50 ccpg=365) BASOPHILS ABSOLUTE COUNT (BEAKER) (test 0.01 K/ L 0.00-0.20 yymb=817) IMMATURE GRANULOCYTES-RELATIVE PERCENT (BEAKER) 1 % 0-0 (test fddr=6589)
--- OUTSIDE RECORDS SUMMARY | 2019-11-30 06:30 | XMS REPORT | Summary of Care ---
:1955 Author Organization [facility] Address [address] [place] [id number] Care Team Providers Name Role Phone Herman Watkins MD Primary Care Provider Reason for Visit Reason Comments Refill Request Encounter Details Date Type Department Care Team Description 10/14/2019 Refill [facility] Family Medicine Harley Herman MD Refill Request - [address] [address] [place] [address] Allergies No Known Allergiesdocumented as of this encounter (statuses as of 10/14/2019) Medications Medication Sig Dispensed Refills Start Date End Date Status ALBUTEROL SULFATE, 0 Active BULK, MISC sodium chloride 7% Inhale 4 mL 2 60 Vial 11 06/08/2017 Active (HYPER-BISI) nebulizer (two) times solution daily. chlorzoxazone 500 mg Take 1 tablet 1 06/26/2017 Active tablet by mouth 3 (three) times daily before meals. meloxicam 15 mg Take 15 mg by 2 06/22/2017 Active tablet mouth daily. nystatin 100,000 Take 5 mL by 1 Bottle 0 08/18/2017 Active unit/mL suspension mouth 4 (four) times daily. cetirizine 10 mg Take 1 tablet 30 tablet 6 09/07/2017 Active tablet by mouth daily. sodium chloride Use 1 [place] in 1 Bottle 6 09/07/2017 Active (SALINE NASAL MIST) each nostril 2 0.65 % nasal spray (two) times daily. escitalopram oxalate Take 1 tablet 30 tablet 5 12/04/2017 Active (LEXAPRO) 20 mg by mouth tablet daily. acyclovir 400 mg Take 1 tablet 30 tablet 0 12/04/2017 Active tablet by mouth 3 (three) times daily. clotrimazole-betameth Apply to 45 g 1 12/04/2017 Active asone cream area(s) 2 (two) times daily. albuterol 2.5 mg /3 Inhale 3 mL 2 Box 11 07/05/2018 Active mL (0.083 %) every 4 (four) nebulizer solution hours as needed for Wheezing or Shortness of Breath. albuterol sulfate Inhale 1 Puff 1 Each 07/05/2018 Active (PROAIR RESPICLICK) every 4 (four) 90 mcg/actuation AePB hours as needed for Other (shortness of breath wheezing). pantoprazole 20 mg EC Take 1 tablet 30 tablet 1 11/21/2018 Active tabletIndications: by mouth Gastroesophageal daily. reflux disease, esophagitis presence not specified tiotropium 18 mcg Inhale 1 30 capsule 11 01/17/2019 Active inhalationIndications capsule daily. : Stage 3 severe COPD by GOLD classification fluticasone-vilantero Inhale 1 28 Each 11 01/17/2019 Active l (BREO ELLIPTA) Inhaler daily. 100-25 mcg/dose DsDvIndications: Stage 3 severe COPD by GOLD classification zolpidem 10 mg Take 1 tablet 30 tablet 2 05/20/2019 Active tabletIndications: by mouth at Insomnia, unspecified bedtime as type needed for Insomnia. escitalopram oxalate Take 1 tablet 90 tablet 1 06/12/2019 Active 10 mg by mouth tabletIndications: daily. Depression, unspecified depression type metoprolol succinate Take 1 tablet 90 tablet 0 06/28/2019 Active XL 50 mg 24 hr by mouth tabletIndications: daily. Essential hypertension atorvastatin 10 mg TAKE 1 TAB BY 90 tablet 0 06/28/2019 Active tablet MOUTH AT BEDTIME. losartan-hydrochlorot Take 1 tablet 90 tablet 0 06/28/2019 Active hiazide 50-12.5 mg by mouth per daily. tabletIndications: Essential hypertension OMEPRAZOLE 20 mg TAKE 1 CAPSULE 90 capsule 0 10/14/2019 Active capsuleIndications: BY MOUTH EVERY Gastroesophageal DAY reflux disease, esophagitis presence not specified omeprazole 20 mg Take 1 capsule 90 capsule 0 04/15/2019 10/14/19 Discontinued capsuleIndications: by mouth 20 Gastroesophageal daily. reflux disease, esophagitis presence not specified documented as of this encounter (statuses as of 10/14/2019) Active Problems Problem Noted Date Gastroesophageal reflux disease, esophagitis presence not specified 12/04/2017 Chronic back pain, unspecified back location, unspecified back pain 12/04/2017 laterality Insomnia, unspecified type 12/20/2016 Essential hypertension 10/07/2016 Chronic obstructive pulmonary disease with acute exacerbation 06/15/2016 Infection of skin due to methicillin resistant Staphylococcus aureus 2015 (MRSA) Cyst of left kidney 11/30/2015 Hyperlipidemia 08/21/2015 Spondylosis of lumbosacral region 08/21/2015 Osteopenia 08/21/2015 Depression 08/21/2015 documented as of this encounter (statuses as of 10/14/2019) Immunizations Name Administration Dates Next Due Influenza Virus Vaccine Quad IM 3+ YRS 06/06/2017, 06/15/2016 Pneumococcal 13 Conjugate, PCV13 (Prevnar 13) 06/06/2017 Pneumococcal Polysaccharide, PPSV23 (PNEUMOVAX) 06/15/2016 Zoster(Zostavax)(Shingles) 06/06/2017 documented as of this encounter Social History Tobacco Use Types Packs/Day Years Used Date Former Smoker Cigarettes Quit: 09/29/2008 Smokeless Tobacco: Never Used Alcohol Use Drinks/Week oz/Week Comments Yes occasional Sex Assigned at Date Recorded Not on file Job Start Date Occupation Industry Not on file Not on file Not on file Travel History Travel Start Travel End No recent travel history available. documented as of this encounter Last Filed Vital Signs Not on filedocumented in this encounter Plan of Treatment Date Type Specialty Care Team Description 10/17/2019 Office Visit Family Medicine Herman Watkins MD [address] [place] [id number] Health Maintenance Due Date Last Done Comments DTaP,Tdap,and Td Vaccines (1 - Tdap) 1966 COLONOSCOPY 2005 LUNG CANCER SCREEN: Recommended for age 1208/11/2010 55-80 with 30 + pack year history Zoster Recombinant Vaccine (SHINGRIX) (2 08/01/2017 06/06/2017 of 3) Breast Cancer Screening (MAMMOGRAM) 12/27/2018 12/27/2017, 10/12/2016 INFLUENZA VACCINE (#1) 2019 06/06/2017, 06/15/2016 PNEUMOCOCCAL 0-64 YEARS COMBINED SERIES Completed 06/06/2017, 06/15/2016 HEPATITIS C (HCV) SCREEN Completed 10/04/2017 PAP SMEAR Discontinued documented as of this encounter Results Not on filedocumented in this encounter Visit Diagnoses Diagnosis Gastroesophageal reflux disease, esophagitis presence not specified documented in this encounter Additional Health Concerns Infection Noted Time Resolved Time Contact- MRSA 05/16/2016 8:48 AM CDT documented as of this encounter Insurance Payer Benefit Plan Subscriber ID Effective Dates Phone Address Type / Group [facility] [employer] [id number] 2017-Zane [phone] [address] PPO/ POS [place] [employer] t 7 [id number] [place] [address] documented as of this encounter
--- OUTSIDE RECORDS SUMMARY | 2019-11-30 06:30 | XMS REPORT | Summary of Care ---
:1955 Author Organization [facility] Address [address] [place] [address] Care Team Providers Name Role Phone Herman Watkins MD Primary Care Provider Reason for Referral Radiology Services (Routine) Status Reason Specialty Diagnoses / Referred By Referred To Procedures Contact Contact New Request Diagnostic Diagnoses Breast cancer screening Roland, Radiology Procedures BI SCREENING MAMMOGRAM BILATERAL MD Herman [facility] [place] [address] Reason for Visit Reason Comments Follow-up GERD Hypertension Refill Request Encounter Details Date Type Department Care Team Description 10/17/2019 Office Visit [facility] Family Herman Watkins, Depression, unspecified depression type (Primary Dx); [facility] Insomnia, unspecified type; [facility] [address] Gastroesophageal reflux disease, esophagitis presence not specified; Drive [facility] Essential hypertension; [place], [place] Hyperlipidemia, unspecified hyperlipidemia type ; [id number] Breast cancer screening [phone] Allergies No Known Allergiesdocumented as of this encounter (statuses as of 10/17/2019) Medications Medication Sig Dispensed Refills Start End Date Status Date ALBUTEROL SULFATE, 0 Active BULK, MISC chlorzoxazone 500 mg Take 1 tablet 1 Active tablet by mouth 3 7 (three) times daily before meals. cetirizine 10 mg Take 1 tablet 30 tablet 6 Active tablet by mouth 7 daily. acyclovir 400 mg Take 1 tablet 30 tablet 0 Active tablet by mouth 3 8 (three) times daily. clotrimazole-betamet Apply to 45 g 1 Active hasone cream area(s) 2 8 (two) times daily. albuterol 2.5 mg /3 Inhale 3 mL 2 Box 11 Active mL (0.083 %) every 4 8 nebulizer solution (four) hours as needed for Wheezing or Shortness of Breath. albuterol sulfate Inhale 1 Puff 1 Each 11 Active (PROAIR RESPICLICK) every 4 8 90 mcg/actuation (four) hours AePB as needed for Other (shortness of breath wheezing). fluticasone-vilanter Inhale 1 28 Each 11 Active ol (BREO ELLIPTA) Inhaler 9 100-25 mcg/dose daily. DsDvIndications: Stage 3 severe COPD by GOLD classification OMEPRAZOLE 20 mg TAKE 1 90 capsule 0 Active capsuleIndications: CAPSULE BY 0 Gastroesophageal MOUTH EVERY reflux disease, DAY esophagitis presence not specified zolpidem 10 mg Take 1 tablet 30 tablet 2 Active tabletIndications: by mouth at 0 Insomnia, bedtime as unspecified type needed for Insomnia. escitalopram oxalate Take 1 tablet 30 tablet 5 Active (LEXAPRO) 20 mg by mouth 0 tabletIndications: daily. Depression, unspecified depression type atorvastatin 10 mg TAKE 1 TAB BY 90 tablet 1 Active tabletIndications: MOUTH AT 0 Hyperlipidemia, BEDTIME. unspecified hyperlipidemia type metoprolol succinate Take 1 tablet 90 tablet 1 Active XL 50 mg 24 hr by mouth 0 tabletIndications: daily. Essential hypertension losartan-hydrochloro Take 1 tablet 90 tablet 1 Active thiazide 50-12.5 mg by mouth 0 per daily. tabletIndications: Essential hypertension sodium chloride 7% Inhale 4 mL 2 60 Vial 11 10/17/19 Discontinued (HYPER-BISI) (two) times 7 20 (Therapy nebulizer solution daily. completed) meloxicam 15 mg Take 15 mg by 2 10/17/19 Discontinued tablet mouth daily. 7 20 (Therapy completed) nystatin 100,000 Take 5 mL by 1 Bottle 0 10/17/19 Discontinued unit/mL suspension mouth 4 7 20 (Therapy (four) times completed) daily. sodium chloride Use 1 [place] 1 Bottle 6 10/17/19 Discontinued (SALINE NASAL MIST) in each 7 20 (Therapy 0.65 % nasal spray nostril 2 completed) (two) times daily. escitalopram oxalate Take 1 tablet 30 tablet 5 10/17/19 Discontinued (LEXAPRO) 20 mg by mouth 8 20 (Reorder) tablet daily. pantoprazole 20 mg Take 1 tablet 30 tablet 1 10/17/19 Discontinued EC by mouth 9 20 (Duplicate) tabletIndications: daily. Gastroesophageal reflux disease, esophagitis presence not specified tiotropium 18 mcg Inhale 1 30 capsule 11 10/17/19 Discontinued inhalationIndication capsule 9 20 (Therapy s: Stage 3 severe daily. completed) COPD by GOLD classification zolpidem 10 mg Take 1 tablet 30 tablet 2 10/17/19 Discontinued tabletIndications: by mouth at 9 20 (Reorder) Insomnia, bedtime as unspecified type needed for Insomnia. escitalopram oxalate Take 1 tablet 90 tablet 1 10/17/19 Discontinued 10 mg by mouth 9 20 (Duplicate) tabletIndications: daily. Depression, unspecified depression type metoprolol succinate Take 1 tablet 90 tablet 0 10/17/19 Discontinued XL 50 mg 24 hr by mouth 9 20 (Reorder) tabletIndications: daily. Essential hypertension atorvastatin 10 mg TAKE 1 TAB BY 90 tablet 0 10/17/19 Discontinued tablet MOUTH AT 9 20 (Reorder) BEDTIME. losartan-hydrochloro Take 1 tablet 90 tablet 0 10/17/19 Discontinued thiazide 50-12.5 mg by mouth 9 20 (Reorder) per daily. tabletIndications: Essential hypertension documented as of this encounter (statuses as of 10/17/2019) Active Problems Problem Noted Date Gastroesophageal reflux [...] as of this encounter (statuses as of 10/17/2019) Immunizations Name Administration Dates Next Due Influenza [...] of this encounter Last Filed Vital Signs Vital Sign Reading Time Taken Comments Blood Pressure 110/60 10/17/2019 2:19 PM [place] Pulse - - Temperature - - Respiratory Rate - - Oxygen Saturation - - Inhaled Oxygen Concentration - - Weight 60.8 kg (134 lb) 10/17/2019 2:19 PM [place] Height - - Body Mass Index 26.17 01/17/2019 10:32 AM CDT documented in this encounter Progress Notes Herman Watkins MD - 10/17/2019 2:15 PM CST Cc: htn, GERD f/u Chief Complaint Patient presents with Follow-up GERD Hypertension Refill Request Amanda Malik is a 64 year old female. Here for routine f/u Allergies Amanda Barnett has No Known Allergies. Medications Outpatient Medications Prior to Visit Medication Sig Dispense Refill atorvastatin 10 mg tablet TAKE 1 TAB BY MOUTH AT BEDTIME. 90 tablet 0 losartan-hydrochlorothiazide 50-12.5 mg per tablet Take 1 tablet by mouth daily. 90 tablet 0 metoprolol succinate XL 50 mg 24 hr tablet Take 1 tablet by mouth daily. 90 tablet 0 zolpidem 10 mg tablet Take 1 tablet by mouth at bedtime as needed for Insomnia. 30 tablet 2 OMEPRAZOLE 20 mg capsule TAKE 1 CAPSULE BY MOUTH EVERY DAY 90 capsule 0 escitalopram oxalate 10 mg tablet Take 1 tablet by mouth daily. 90 tablet 1 fluticasone-vilanterol (BREO ELLIPTA) 100-25 mcg/dose DsDv Inhale 1 Inhaler daily. 28 Each 11 tiotropium 18 mcg inhalation Inhale 1 capsule daily. 30 capsule 11 pantoprazole 20 mg EC tablet Take 1 tablet by mouth daily. 30 tablet 1 albuterol 2.5 mg /3 mL (0.083 %) nebulizer solution Inhale 3 mL every 4 ( four) hours as needed for Wheezing or Shortness of Breath. 2 Box 11 albuterol sulfate (PROAIR RESPICLICK) 90 mcg/actuation AePB Inhale 1 Puff every 4 (four) hours as needed for Other (shortness of breath wheezing). 1 Each 11 acyclovir 400 mg tablet Take 1 tablet by mouth 3 (three) times daily. 30 tablet 0 clotrimazole-betamethasone cream Apply to area(s) 2 (two) times daily. 45 g 1 escitalopram oxalate (LEXAPRO) 20 mg tablet Take 1 tablet by mouth daily. 30 tablet 5 cetirizine 10 mg tablet Take 1 tablet by mouth daily. 30 tablet 6 sodium chloride (SALINE NASAL MIST) 0.65 % nasal spray Use 1 [place] in each nostril 2 (two) timesdaily. 1 Bottle 6 nystatin 100,000 unit/mL suspension Take 5 mL by mouth 4 (four) times daily. 1 Bottle 0 chlorzoxazone 500 mg tablet Take 1 tablet by mouth 3 (three) times daily before meals. 1 meloxicam 15 mg tablet Take 15 mg by mouth daily. 2 sodium chloride 7% (HYPER-BISI) nebulizer solution Inhale 4 mL 2 (two) times daily. 60 Vial 11 ALBUTEROL SULFATE, BULK, MISC No facility-administered medications prior to visit. Histories Past Medical History: Diagnosis Date Abdominal aortic aneurysm (AAA) >39 mm diameter Anxiety Arthritis COPD (chronic obstructive pulmonary disease) Depression Esophageal reflux Essential hypertension 10/07/2016 Hyperlipidemia Past Surgical History: Procedure Laterality Date APPENDECTOMY HYSTERECTOMY OPEN SHOULDER ROTATOR CUFF REPAIR Right SLING OPER STRES INCONTINENCE SPINE SURGERY TONSILLECTOMY Social History Socioeconomic History Marital status: Spouse name: Not on file Number of children: Not on file Years of education: Not on file Highest education level: Not on file Occupational History Not on file Social Needs Financial resource strain: Not on file Food insecurity: Worry: Not on file Inability: Not on file Transportation needs: Medical: Not on file Non-medical: Not on file Tobacco Use Smoking status: Former Smoker Types: Cigarettes Last attempt to quit: 09/29/2008 Years since quittin.0 Smokeless tobacco: Never Used Substance and Sexual Activity Alcohol use: Yes Comment: occasional Drug use: No Sexual activity: Not on file Lifestyle Physical activity: Days per week: Not on file Minutes per session: Not on file Stress: Not on file Relationships Social connections: Talks on phone: Not on file Gets together: Not on file Attends yazidism service: Not on file Active member of club or organization: Not on file Attends meetings of clubs or organizations: Not on file Relationship status: Not on file Intimate partner violence: Fear of current or ex partner: Not on file Emotionally abused: Not on file Physically abused: Not on file Forced sexual activity: Not on file Other Topics Concern Not on file Social History Narrative Not on file Family History Problem Relation Age of Onset Heart Mother Diabetes Mother Heart Father Diabetes Father Atherosclerosis Father GI Father Review of Systems Vital Signs BP 110/60 | Wt 134 lb (60.8 kg) | BMI 26.17 kg/m Physical Exam Constitutional: She is oriented to person, place, and time. She appears well- developed and well-nourished. HENT: Head: Normocephalic and atraumatic. Right Ear: External ear normal. Left Ear: External ear normal. Eyes: Pupils are equal, round, and reactive to light. Cardiovascular: Normal rate, regular rhythm and normal heart sounds. Pulmonary/Chest: Effort normal and breath sounds normal. Abdominal: Soft. Musculoskeletal: Normal range of motion. Neurological: She is alert and oriented to person, place, and time. Skin: Skin is warm. Vitals reviewed. Assessment/Plan HTN, stable, medication refill GERD, medication refill This visit did not involve counseling and coordination that comprised more than 50% of the visit time.Electronically signed by Herman Watkins MD at 2019 2:30 PM CSTdocumented in this encounter Plan of Treatment Name Type Priority Associated Diagnoses Order Schedule BI SCREENING MAMMOGRAM IMAGING Routine Breast cancer screening Expected: , BILATERAL Expires: 12/15/2020 Health Maintenance Due Date Last Done Comments [...] filedocumented in this encounter Visit Diagnoses Diagnosis Depression, unspecified depression type - Primary Insomnia, unspecified type Gastroesophageal reflux disease, esophagitis presence not specified Essential hypertension Unspecified essential hypertension Hyperlipidemia, unspecified hyperlipidemia type Breast cancer screening Breast screening, unspecified documented in this encounter Additional Health Concerns Infection Noted Time Resolved Time Contact- MRSA 05/16/2016 8:48 AM CDT documented as of this encounter Insurance Payer Benefit Plan Subscriber ID Effective Dates Phone Address Type / Group [facility] [id number] 2017-Zane [phone] [address] PPO/ POS [place] [employer] t [id number] [place] [address] documented as of this encounter"
--- OUTSIDE RECORDS SUMMARY | 2019-11-30 06:30 | XMS REPORT | Summary of Care ---
:1955 Author Organization [facility] Address [address] [place] [address] Care Team Providers Name Role Phone Herman Watkins MD Primary Care Provider Encounter Details Date Type Department Care Team Description 10/17/2019 Orders Only [facility] Doctor Unassigned, No [address] [facility] [place] [address] [address] [place] [address] Allergies No Known Allergiesdocumented as of this encounter (statuses as of 10/17/2019) Medications Medication Sig Dispensed Refills Start Date End Date Status ALBUTEROL SULFATE, 0 Active BULK, MISC sodium chloride 7% Inhale 4 mL 2 60 Vial 11 06/08/2017 Active (HYPER-BISI) nebulizer (two) times solution daily. chlorzoxazone 500 mg Take 1 tablet by 1 06/26/2017 Active tablet mouth 3 (three) times daily before meals. meloxicam 15 mg tablet Take 15 mg by 2 06/22/2017 Active mouth daily. nystatin 100,000 Take 5 mL by 1 Bottle 0 08/18/2017 Active unit/mL suspension mouth 4 (four) times daily. cetirizine 10 mg tablet Take 1 tablet by 30 tablet 6 09/07/2017 Active mouth daily. sodium chloride (SALINE Use 1 [place] in 1 Bottle 6 09/07/2017 Active NASAL MIST) 0.65 % each nostril 2 nasal spray (two) times daily. escitalopram oxalate Take 1 tablet by 30 tablet 5 12/04/2017 Active (LEXAPRO) 20 mg tablet mouth daily. acyclovir 400 mg tablet Take 1 tablet by 30 tablet 0 12/04/2017 Active mouth 3 (three) times daily. clotrimazole-betamethas Apply to 45 g 1 12/04/2017 Active one cream area(s) 2 (two) times daily. albuterol 2.5 mg /3 mL Inhale 3 mL 2 Box 11 07/05/2018 Active (0.083 %) nebulizer every 4 (four) solution hours as needed for Wheezing or Shortness of Breath. albuterol sulfate Inhale 1 Puff 1 Each 11 07/05/2018 Active (PROAIR RESPICLICK) 90 every 4 (four) mcg/actuation AePB hours as needed for Other (shortness of breath wheezing). pantoprazole 20 mg EC Take 1 tablet by 30 tablet 1 11/21/2018 Active tabletIndications: mouth daily. Gastroesophageal reflux disease, esophagitis presence not specified tiotropium 18 mcg Inhale 1 capsule 30 capsule 11 01/17/2019 Active inhalationIndications: daily. Stage 3 severe COPD by GOLD classification fluticasone-vilanterol Inhale 1 Inhaler 28 Each 11 01/17/2019 Active (BREO ELLIPTA) 100-25 daily. mcg/dose DsDvIndications: Stage 3 severe COPD by GOLD classification zolpidem 10 mg Take 1 tablet by 30 tablet 2 05/20/2019 Active tabletIndications: mouth at bedtime Insomnia, unspecified as needed for type Insomnia. escitalopram oxalate 10 Take 1 tablet by 90 tablet 1 06/12/2019 Active mg tabletIndications: mouth daily. Depression, unspecified depression type metoprolol succinate XL Take 1 tablet by 90 tablet 0 06/28/2019 Active 50 mg 24 hr mouth daily. tabletIndications: Essential hypertension atorvastatin 10 mg TAKE 1 TAB BY 90 tablet 0 06/28/2019 Active tablet MOUTH AT BEDTIME. losartan-hydrochlorothi Take 1 tablet by 90 tablet 0 06/28/2019 Active azide 50-12.5 mg per mouth daily. 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
--- OUTSIDE RECORDS SUMMARY | 2019-11-30 06:30 | XMS REPORT | Summary of Care ---
:1955 Author Organization [facility] - Health Address [address] [place] [address] Care Team Providers Name Role Phone Herman Watkins MD Primary Care Provider Encounter Details Date Type Department Care Team Description 09/25/2019 Orders Only [facility] Doctor Unassigned, No [address] [facility] [place] [address] [address] [place] [address] Allergies No Known Allergiesdocumented as of this encounter (statuses as of 09/25/2019) Medications Medication Sig Dispensed Refills Start Date [...] mouth daily. sodium chloride (SALINE Use 1 Gilbert in 1 Bottle 6 09/07/2017 Active NASAL [...] Stage 3 severe COPD by GOLD classification omeprazole 20 mg Take 1 capsule 90 capsule 0 04/15/2019 Active capsuleIndications: by mouth daily. Gastroesophageal reflux disease, esophagitis presence not specified zolpidem 10 mg Take 1 tablet by [...] mg per mouth daily. tabletIndications: Essential hypertension documented as of this encounter (statuses as of 09/25/2019) Active Problems Problem Noted Date Gastroesophageal reflux [...] as of this encounter (statuses as of 09/25/2019) Immunizations Name Administration Dates Next Due Influenza [...] Last Done Comments DTaP,Tdap,and Td Vaccines (1 1966 - Tdap) LUNG CANCER SCREEN: 2010 Recommended for age 55-80 with 30 + pack year history Zoster Recombinant Vaccine 08/01/2017 06/06/2017 (SHINGRIX) (2 of 3) Breast Cancer Screening 12/27/2018 12/27/2017, (MAMMOGRAM) 10/12/2016 INFLUENZA VACCINE (#1) 2019 06/06/2017, 06/15/2016 COLONOSCOPY 09/11/2019 Postponed from 2005 (Parent Refused) PNEUMOCOCCAL 0-64 YEARS Completed 06/06/2017, COMBINED SERIES 06/15/2016 HEPATITIS C (HCV) SCREEN Completed 10/04/2017 PAP SMEAR Discontinued documented as of this encounter Procedures Procedure Name Priority Date/Time Associated Diagnosis Comments EXTERNAL PROVIDER Routine 09/25/2019 12:01 AM 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
--- OUTSIDE RECORDS SUMMARY | 2019-11-30 06:31 | XMS REPORT | Summary of Care ---
:1955 Author Organization [facility] - [facility] Address [address] [place] [address] Care Team Providers Name Role Phone Herman Watkins MD Primary Care Provider Reason for Referral Radiology Services (Routine) Status Reason Specialty Diagnoses / Referred By Referred To Procedures Contact Contact New Request Diagnostic Diagnoses Breast cancer screening Roland, Radiology Procedures BI SCREENING MAMMOGRAM BILATERAL MD Herman [facility] [place] [address] Reason for Visit Reason Comments Follow-up GERD Hypertension Refill Request Encounter Details Date Type Department Care Team Description 10/17/2019 Office Visit [facility] Herman Watkins, Depression, unspecified depression type (Primary Dx); [facility] Insomnia, unspecified type; [facility] [address] Gastroesophageal reflux disease, esophagitis presence not specified; Drive [facility] Essential hypertension; [place], [place] Hyperlipidemia, unspecified hyperlipidemia type ; [id number] Breast cancer screening [phone] Allergies No Known Allergiesdocumented as of this [...] times completed) daily. 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 1 [...] file Gets together: Not on file Attends spiritism service: Not on file Active member of [...] Effective Dates Phone Address Type / Group [facility] [id number] 2017-Zane [phone] [address] PPO/ POS [place] [employer] t [id number] [place] [address] documented as of this encounter"
--- OUTSIDE RECORDS SUMMARY | 2019-11-30 06:31 | XMS REPORT | Summary of Care ---
:1955 Author Organization [facility] Address [address] [place] [address] Care Team Providers Name Role Phone Herman Watkins MD Primary Care Provider Reason for Referral Radiology Services (Routine) Status Reason Specialty Diagnoses / Referred By Referred To Procedures Contact Contact Closed Diagnostic Diagnoses Breast cancer screening Herman Watkins, Radiology Procedures BI SCREENING MAMMOGRAM BILATERAL [address] [place] [address] Reason for Visit Radiology Services (Routine) Status Reason Specialty Diagnoses / Referred By Referred To Procedures Contact Contact Closed Diagnostic Diagnoses Breast cancer screening Herman Watkins, Radiology Procedures BI SCREENING MAMMOGRAM BILATERAL [address] [place] [address] Encounter Details Date Type Department Care Team Description 10/25/2019 Hospital Encounter [facility] Herman Watkins MD Arrived [facility] [address] [place] [address] Allergies No Known Allergiesdocumented as of this encounter (statuses as of 10/26/2019) Medications Medication Sig Dispensed Refills Start Date End Date Status ALBUTEROL SULFATE, 0 Active BULK, MISC chlorzoxazone 500 mg Take 1 tablet by 1 06/26/2017 Active tablet mouth 3 (three) times daily before meals. cetirizine 10 mg tablet Take 1 tablet by 30 tablet 6 09/07/2017 Active mouth daily. acyclovir 400 mg tablet Take [...] Puff 1 Each 07/05/2018 Active (PROAIR RESPICLICK) 90 every 4 (four) mcg/actuation AePB hours as needed for Other (shortness of breath wheezing). fluticasone-vilanterol Inhale 1 Inhaler 28 Each 11 01/17/2019 Active (BREO ELLIPTA) 100-25 daily. mcg/dose DsDvIndications: Stage 3 severe COPD by GOLD classification OMEPRAZOLE 20 mg TAKE 1 CAPSULE 90 capsule 0 10/14/2019 Active capsuleIndications: BY MOUTH EVERY Gastroesophageal reflux DAY disease, esophagitis presence not specified zolpidem 10 mg Take 1 tablet by 30 tablet 2 10/17/2019 Active tabletIndications: mouth at bedtime Insomnia, unspecified as needed for type Insomnia. escitalopram oxalate Take 1 tablet by 30 tablet 5 10/17/2019 Active (LEXAPRO) 20 mg mouth daily. tabletIndications: Depression, unspecified depression type atorvastatin 10 mg TAKE 1 TAB BY 90 tablet 1 10/17/2019 Active tabletIndications: MOUTH AT Hyperlipidemia, BEDTIME. unspecified hyperlipidemia type metoprolol succinate XL Take 1 tablet by 90 tablet 1 10/17/2019 Active 50 mg 24 hr mouth daily. tabletIndications: Essential hypertension losartan-hydrochlorothi Take 1 tablet by 90 tablet 1 10/17/2019 Active azide 50-12.5 mg per mouth daily. 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 Name Type Priority Associated Diagnoses Order Schedule BI SCREENING MAMMOGRAM IMAGING Routine Breast cancer screening 1 Occurrences starting BILATERAL 10/25/2019 until 10/25/2019 Health Maintenance Due Date Last Done Comments [...] Procedure Name Priority Date/Time Associated Diagnosis Comments NOTICE OF PRIVACY Routine 10/25/2019 10:21 AM PRACTICES DATABASE SECURITY EXPERT CONSENT/REFUSAL FOR Routine 10/25/2019 10:21 AM DIAGNOSIS AND TREATMENT DATABASE SECURITY EXPERT ASSIGNMENT OF BENEFITS Routine 10/25/2019 10:20 AM DATABASE SECURITY EXPERT documented in this encounter Results Not on filedocumented in this encounter Visit Diagnoses Diagnosis Breast cancer screening Breast screening, unspecified documented in this encounter Additional Health Concerns Infection Noted Time Resolved Time Contact- MRSA 05/16/2016 8:48 AM CDT documented as of this encounter Insurance Payer Benefit Plan Subscriber ID Effective Dates Phone Address Type / Group [facility] [id number] 2017-Zane [phone] [address] PPO/ POS [place] [address] t [id number] [place] [address] documented as of this encounter
--- OUTSIDE RECORDS SUMMARY | 2019-11-30 06:31 | XMS REPORT | Summary of Care ---
:1955 Author Organization [facility] - [facility] Address [address] [place] [address] Care Team Providers Name Role Phone Herman Watkins MD Primary Care Provider Reason for Visit Reason Comments Refill Request Encounter Details Date Type Department Care Team Description 10/31/2019 Refill [facility] Herman Watkins MD Refill Request - [address] [address] [place] [address] Allergies No Known Allergiesdocumented as of this encounter (statuses as of 11/04/2019) Medications Medication Sig Dispensed Refills Start Date End Date Status ALBUTEROL SULFATE, 0 Active BULK, MISC chlorzoxazone 500 mg Take 1 tablet 1 06/26/2017 Active tablet by mouth 3 (three) times daily before meals. cetirizine 10 mg Take 1 tablet 30 tablet 6 09/07/2017 Active tablet by mouth daily. acyclovir 400 mg Take 1 tablet [...] 1 Each 11 07/05/2018 Active (PROAIR RESPICLICK) every 4 (four) 90 mcg/actuation AePB hours as needed for Other (shortness of breath wheezing). fluticasone-vilantero Inhale 1 28 Each 01/17/2019 Active l (BREO ELLIPTA) Inhaler daily. 100-25 mcg/dose DsDvIndications: Stage 3 severe COPD by GOLD classification OMEPRAZOLE 20 mg TAKE 1 CAPSULE 90 capsule 0 10/14/2019 Active capsuleIndications: BY MOUTH EVERY Gastroesophageal DAY reflux disease, esophagitis presence not specified zolpidem 10 mg Take 1 tablet 30 tablet 2 10/17/2019 Active tabletIndications: by mouth at Insomnia, unspecified bedtime as type needed for Insomnia. atorvastatin 10 mg TAKE 1 TAB BY 90 tablet 1 10/17/2019 Active tabletIndications: MOUTH AT Hyperlipidemia, BEDTIME. unspecified hyperlipidemia type metoprolol succinate Take 1 tablet 90 tablet 1 10/17/2019 Active XL 50 mg 24 hr by mouth tabletIndications: daily. Essential hypertension losartan-hydrochlorot Take 1 tablet 90 tablet 1 10/17/2019 Active hiazide 50-12.5 mg by mouth per daily. tabletIndications: Essential hypertension ESCITALOPRAM OXALATE TAKE 1 TABLET 90 tablet 2 11/04/2019 Active 20 mg BY MOUTH EVERY tabletIndications: DAY Depression, unspecified depression type escitalopram oxalate Take 1 tablet 30 tablet 5 10/17/2019 11/04/19 Discontinued (LEXAPRO) 20 mg by mouth 20 tabletIndications: daily. Depression, unspecified depression type documented as of this encounter (statuses as of 11/04/2019) Active Problems Problem Noted Date Gastroesophageal reflux [...] as of this encounter (statuses as of 11/04/2019) Immunizations Name Administration Dates Next Due Influenza [...] COLONOSCOPY 2005 LUNG CANCER SCREEN: Recommended for 2010 age 55-80 with 30 + pack year history Zoster Recombinant Vaccine 08/01/2017 06/06/2017 (SHINGRIX) (2 of 3) INFLUENZA VACCINE (#1) 2019 06/06/2017, 06/15/2016 Breast Cancer Screening (MAMMOGRAM) 10/25/2020 10/25/2019, 12/27/2017, 10/12/2016 PNEUMOCOCCAL 0-64 YEARS COMBINED Completed 06/06/2017, 06/15/2016 SERIES HEPATITIS C (HCV) SCREEN Completed 10/04/2017 PAP SMEAR Discontinued documented as of this encounter Results Not on filedocumented in this encounter Visit Diagnoses Diagnosis Depression, unspecified depression type documented in this encounter Additional Health Concerns Infection Noted Time Resolved Time Contact- MRSA 05/16/2016 8:48 AM CDT documented as of this encounter Insurance Payer Benefit Plan Subscriber ID Effective Dates Phone Address Type / Group [facility] [employer] [id number] 2017-Zane [phone] [address] PPO/ POS [place] [employer] t 7 [id number] [place] [address] documented as of this encounter
[2019-11-30] MEDS ORDERED: ACETAMINOPHEN 500 MG TAB ONE (07:08)
[2019-11-30] MEDS ORDERED: ALBUTEROL INHALER 60 PUFF/8 GM IH ONE (08:00)
--- NOTE | 2019-11-30 08:04 | RAD REPORT ---
EXAM DESCRIPTION: Raheem Single View11/30/2019 7:49 am CLINICAL HISTORY: cough COMPARISON: 2018 FINDINGS: Postsurgical changes involve right lung The lungs appear clear of acute infiltrate. The heart is normal size IMPRESSION: No acute abnormalities displayed
[2019-11-30] MEDS ORDERED: NA CHLORIDE 0.9% 2,000 ML ONE (08:11)
[2019-11-30] MEDS ORDERED: predniSONE 20 MG TAB ONE (08:11)
[2019-11-30 08:12] LABS: Absolute Lymphocytes (CBC) 1.2 K/uL (0.7-4.9); Basophils % 0.7 % (0-1.3); Hematocrit 42.7 % (36.0-45.0); Lymphocytes % 9.9 % (15.3-44.8); MPV 7.7 fL (7.6-11.3); RBC Red Blood Cell Count 4.56 M/uL (3.86-4.86)
[2019-11-30 08:15] LABS: Protime INR 0.91
[2019-11-30 08:31] LABS: ALT/SGPT 20 U/L (12-78); AST/SGOT 12 U/L (15-37); Alkaline Phosphatase 75 U/L (45-117); Amylase Level 34 U/L (25-115); BUN Blood Urea Nitrogen 15 mg/dL (7-18); Bicarbonate 26 mmol/L (21-32); Bilirubin Direct 0.1 mg/dL (0-0.2); Bilirubin Total 0.3 mg/dL (0.2-1.0); Creatine Phosphokinase 38 U/L (26-192); Glucose Level 101 mg/dL (74-106); Lipase 91 U/L (73-393); Potassium 3.5 mmol/L (3.5-5.1); Protein, Total 6.7 g/dL (6.4-8.2); Sodium Level 142 mmol/L (136-145); Troponin (Emerg Dept Use Only) < 0.02 ng/mL (0.0-0.045)
[2019-11-30] MEDS ORDERED: Magnesium Sulfate 2gm IVPB 2 G/50 ML BAG IV ONE (08:59)
[2019-11-30 09:03] LABS: Urine Bacteria 20-50 /HPF (<20); Urine Culture Reflex Order REFLEXED; Urine RBC <5 /HPF (NONE SEEN)
--- NOTE | 2019-11-30 10:28 | ER ---
Nurse's Notes [facility] Name: Amanda Malik Age: 64 yrs Sex: Female : 1955 Arrival Date: 11/30/2019 Time: 06:23 Bed 7 Private MD: Herman Watkins S Diagnosis: Chronic obstructive pulmonary disease with (acute) exacerbation;Other viral infections of unspecified site Presentation: 11/29 06:45 Chief complaint: Patient states: I have a cough, fever, shortness of breath, body jb4 aches, and a severe runny nose. 06:45 Coronavirus screen: Patient reports a subjective fever or greater than 100.4F, or jb4 cough, or shortness of breath, or difficulty breathing. Surgical mask placed on patient. Patient moved to private room, placed in contact and droplet isolation with eye protection until further assessment. Patient denies travel on a cruise ship or to a country the [facility] currently lists as an affected area. Patient denies contact with known and/or suspected case of COVID-19. Ebola Screen: No symptoms or risks identified at this time. Initial Sepsis Screen: Does the patient meet any 2 criteria? RR > 20 per min. HR > 90 bpm. Yes Does the patient have a suspected source of infection? Yes: Productive cough/pneumonia If YES to both, name of provider notified: Brooke MCKEON Risk Assessment: Do you want to hurt yourself or someone else? Patient reports no desire to harm self or others. 06:45 Method Of Arrival: Wheelchair jb4 06:45 Acuity: EMILY 2 jb4 Triage Assessment: 06:45 General: Appears distressed, uncomfortable, ill, Behavior is cooperative, agitated, jb4 anxious. Pain: Denies pain. Respiratory: Airway is patent Respiratory effort is even, labored, pursed lip, Respiratory pattern is tachypnea Breath sounds are diminished bilaterally. Breath sounds with wheezes in right upper lobe, right middle lobe and right lower lobe. GI: Reports vomiting. Historical: - Allergies: 07:01 No Known Allergies; jb4 - Home Meds: 07:01 Albuterol Inhl [Active]; atorvastatin 10 mg Oral tab 1 tab once daily [Active]; Breo jb4 Ellipta 200-25 mcg/dose inhalation dsdv 1 puff once daily [Active]; cyclobenzaprine 10 mg Oral tab 1 tab 3 times per day [Active]; escitalopram oxalate 20 mg Oral tab 1 tab once daily [Active]; metoprolol succinate 25 mg Oral Tb24 1 tab BID [Active]; omeprazole 20 mg Oral cpDR 1 cap once daily [Active]; Tylenol #3 Oral [Active]; - PMHx: 07:01 COPD; High Cholesterol; Hypertension; jb4 - PSHx: 07:01 back; neck; jb4 - Immunization history:: Adult Immunizations unknown. - Social history:: Smoking status: Patient denies any tobacco usage or history of. Screenin:10 Abuse screen: Denies threats or abuse. Nutritional screening: No deficits noted. ea Tuberculosis screening: No symptoms or risk factors identified. 09:05 Fall Risk None identified. em Assessment: 07:00 General: RECD REPORT FROM SEBLE IVERSON. 64YO WF P/W FEVER, COUGH AND SOB. PT ON DROPLET bp PRECAUTIONS. GI: Reports nausea. 08:00 Reassessment: PT PLACED ON B/S COMMODE. bp 08:25 Reassessment: COVID SPECIMEN OBTAINED AND SENT TO LAB. GI: Abdomen is non-distended, NO bp ACTIVE VOMITING. 09:24 Reassessment: Patient appears in no apparent distress at this time. Patient and/or em family updated on plan of care and expected duration. Pain level reassessed. Patient is alert, oriented x 3, equal unlabored respirations, skin warm/dry/pink. Patient denies pain at this time. Patient states feeling better. Patient states symptoms have improved. 10:10 Reassessment: COVID test sent to lab, Health Dept notified, PUI# [phone] [id number], lab iw notified. 10:30 Reassessment: Patient appears in no apparent distress at this time. chips and sandwich em given to pt, tolerated well. 11:03 Reassessment: DR ARIAS AT B/S FOR ADMIT EVAL. bp 11:56 Reassessment: ADMIT IN PROCESS. PT SLEEPING QUIETLY. bp 13:14 Reassessment: Patient appears in no apparent distress at this time. Patient and/or em family updated on plan of care and expected duration. Pain level reassessed. pending room assignment. 14:11 Reassessment: Patient appears in no apparent distress at this time. Patient and/or em family updated on plan of care and expected duration. Pain level reassessed. Patient is alert, oriented x 3, equal unlabored respirations, skin warm/dry/pink. 14:46 Reassessment: ADMIT COMPLETED, TRANSPORT PENDING. bp Vital Signs: 06:45 BP 136 / 97; Pulse 139; Resp 24; Temp 100.1; Pulse Ox 90% on R/A; Weight 58.97 kg (R); jb4 Height 5 ft. 0 in. (152.40 cm); Pain 0/10; 08:00 BP 122 / 87; Pulse 117; Resp 37; Pulse Ox 94% on 2 lpm NC; bp 08:25 BP 128 / 63; Pulse 117; Resp 19; Temp 97; Pulse Ox 96% on 2 lpm NC; bp 09:24 BP 117 / 67; Pulse 111; Resp 24; Temp 98.0(O); Pulse Ox 94% on 2 lpm NC; Pain 0/10; em 10:00 BP 109 / 78; Pulse 104; Resp 19; Pulse Ox 92% ; bp 11:00 BP 104 / 64; Pulse 100; Resp 18; Pulse Ox 94% ; bp 11:56 BP 130 / 88; Pulse 98; Resp 18; Pulse Ox 93% on R/A; bp 13:00 BP 114 / 60; Pulse 88; Resp 16; Pulse Ox 95% on 2 lpm NC; Pain 0/10; em 14:11 BP 120 / 78; Pulse 92; Resp 18; Pulse Ox 99% on 2 lpm NC; em 06:45 Body Mass Index 25.39 (58.97 kg, 152.40 cm) jb4 ED Course: 06:23 Patient arrived in ED. es 06:24 Herman Watkins MD is Private Physician. es 06:39 Brooke oMrse FNP-C is PSYCHIATRICP. kb 06:39 Rd Chamorro MD is Attending Physician. kb 06:54 Harley Sanchez, ZAYRA is Primary Nurse. jb4 06:58 Triage completed. jb4 07:00 Inserted saline lock: 18 gauge in left forearm, using aseptic technique. Blood jb4 collected. 07:00 Second set of blood cultures drawn by me, Flu and/or RSV swab sent to lab. jb4 07:10 EKG completed in triage. Results shown to MD. ea 07:10 Patient has correct armband on for positive identification. Placed in gown. Bed in low bp position. Call light in reach. Side rails up X2. satellite project site monitor on. Pulse ox on. NIBP on. 07:51 Chest Single View XRAY In Process Unspecified. EDMS 10:22 Melisa Arias MD is Hospitalizing Provider. kb 12:14 CT completed. Patient tolerated procedure well. Patient moved back from CT. bq 14:47 No provider procedures requiring assistance completed. Patient admitted, IV remains in bp place. Administered Medications: 07:00 Drug: Tylenol 1000 mg Route: PO; jb4 08:27 Follow up: Response: Temperature is decreased bp 08:00 Drug: Albuterol HFA Inhaler 2 puffs Route: Inhalation; bp 09:20 Follow up: Response: No adverse reaction; Marked relief of symptoms em 08:01 CANCELLED (Physician Discretion): Xopenex (3) 1.25 mg Inhalation once bp 08:01 CANCELLED (Physician Discretion): AtroVENT Aerosol 0.5 mg Inhalation once bp 08:15 Drug: NS 0.9% (30 ml/kg) 30 ml/kg Route: IV; Rate: bolus; Site: left forearm; bp 14:49 Follow up: IV Status: Completed infusion; IV Intake: 1800ml bp 08:15 Drug: predniSONE 40 mg Route: PO; bp 08:27 Follow up: Response: No adverse reaction bp 09:00 Drug: Magnesium Sulfate 2 grams Route: IVPB; Infused Over: 1 hrs; Site: left forearm; em 10:04 Follow up: Response: No adverse reaction; Marked relief of symptoms; IV Status: em Completed infusion; IV Intake: 100ml Intake: 10:04 IV: 100ml; Total: 100ml. em 14:49 IV: 1800ml; Total: 1900ml. bp Outcome: 10:27 Decision to Hospitalize by Provider. kb 14:47 Admitted to Med/surg family with patient, via wheelchair, room 417, with chart, Report bp called to YANELIS IVERSON 14:49 Condition: stable bp 14:49 Instructed on the need for admit. 15:12 Patient left the ED. bp Addendum: 12/01/2019 16:09 Addendum: Other notified of negative COVID-19 results. advised to continue to monitor d m5 symptoms and to return if she her symptoms get worse. Signatures: Dispatcher [employer] Brooke Dobson, CHURN DRILLER HELPER-C CHURN DRILLER HELPER-Ckb Vianney Wilkerson, RN RN Pat Dennis Betty bq Munoz, Edgar, ZAYRA RN Gregoria Rojas, RN RN Harley Hendricks, RN RN jb4 Cinthya Pedersen RN RN ea Peltier, Brian RN RN bp Corrections: (The following items were deleted from the chart) 11/29 10:12 10:10 Reassessment: COVID test sent to lab, Health Dept notified, PUI# [phone] [id number] iw 14:11 09:24 BP 117 / 67; Pulse 111bpm; Resp 24bpm; Pulse Ox 94% 2 lpm Nasal Cannula; Pain em 0; em
--- NOTE | 2019-11-30 10:28 | EDPHYS ---
Physician Documentation [facility] Name: Amanda Malik Age: 64 yrs Sex: Female : 1955 Arrival Date: 11/30/2019 Time: 06:23 Bed 7 Private MD: Herman Watkins S ED Physician Rd Chamorro HPI: 11/29 07:11 This 64 yrs old Female presents to ER via Wheelchair with complaints of kb Cough, Fever, Vomiting, Breathing Difficulty. 07:12 The patient has shortness of breath at rest. Onset: The symptoms/episode began/occurred kb this morning. Duration: The symptoms are continuous, and are unchanged since they started. The patient's shortness of breath is aggravated by nothing, is alleviated by nothing. Associated signs and symptoms: Pertinent positives: non-productive cough, fever, Pertinent negatives: chest pain, productive cough, diaphoresis, dizziness, hemoptysis, loss of consciousness, nausea, numbness in extremities, visual changes, vomiting. Severity of symptoms: At their worst the symptoms were moderate in the emergency department the symptoms are unchanged. The patient has experienced similar episodes in the past. The patient has not recently seen a physician. 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 Last night she started having a runny nose that got worse throughout the night. This morning she was coughing that made her vomit a few times and couldn't catch her breath. . Historical: - Allergies: 07:01 No Known Allergies; jb4 - Home Meds: 07:01 Albuterol Inhl [Active]; atorvastatin 10 mg Oral tab 1 tab once daily [Active]; Breo jb4 Ellipta 200-25 mcg/dose inhalation dsdv 1 puff once daily [Active]; cyclobenzaprine 10 mg Oral tab 1 tab 3 times per day [Active]; escitalopram oxalate 20 mg Oral tab 1 tab once daily [Active]; metoprolol succinate 25 mg Oral Tb24 1 tab BID [Active]; omeprazole 20 mg Oral cpDR 1 cap once daily [Active]; Tylenol #3 Oral [Active]; - PMHx: 07:01 COPD; High Cholesterol; Hypertension; jb4 - PSHx: 07:01 back; neck; jb4 - Immunization history:: Adult Immunizations unknown. - Social history:: Smoking status: Patient denies any tobacco usage or history of. ROS: 08:28 Neck: Negative for injury, pain, and swelling, Cardiovascular: Negative for chest pain, kb palpitations, and edema, Back: Negative for injury and pain, : Negative for injury, bleeding, discharge, and swelling, MS/Extremity: Negative for injury and deformity, Skin: Negative for injury, rash, and discoloration, Neuro: Negative for headache, weakness, numbness, tingling, and seizure. 08:28 Constitutional: Positive for fever, Negative for body aches, chills, fatigue, malaise, poor PO intake, weight loss. 08:28 ENT: Positive for rhinorrhea. 08:28 Respiratory: Positive for cough, dyspnea on exertion, shortness of breath. Exam: 08:29 Constitutional: This is a well developed, well nourished patient who is awake, alert, kb and in no acute distress. Head/Face: Normocephalic, atraumatic. ENT: Nares patent. No nasal discharge, no septal abnormalities noted. Tympanic membranes are normal and external auditory canals are clear. Oropharynx with no redness, swelling, or masses, exudates, or evidence of obstruction, uvula midline. Mucous membranes moist. Neck: Trachea midline, no thyromegaly or masses palpated, and no cervical lymphadenopathy. Supple, full range of motion without nuchal rigidity, or vertebral point tenderness. No Meningismus. Chest/axilla: Normal chest wall appearance and motion. Nontender with no deformity. No lesions are appreciated. Cardiovascular: Regular rate and rhythm with a normal S1 and S2. No gallops, murmurs, or rubs. Normal PMI, no JVD. No pulse deficits. Abdomen/GI: Soft, non-tender, with normal bowel sounds. No distension or tympany. No guarding or rebound. No evidence of tenderness throughout. Skin: Warm, dry with normal turgor. Normal color with no rashes, no lesions, and no evidence of cellulitis. MS/ Extremity: Pulses equal, no cyanosis. Neurovascular intact. Full, normal range of motion. Neuro: Awake and alert, GCS 15, oriented to person, place, time, and situation. Cranial nerves II-XII grossly intact. Motor strength 5/5 in all extremities. Sensory grossly intact. Cerebellar exam normal. Normal gait. 08:29 Respiratory: moderate respiratory distress is noted, Respirations: labored breathing, that is moderate, Breath sounds: decreased breath sounds, that are mild, are located in both bases, wheezing: inspiratory that is mild, is scattered. Vital Signs: 06:45 BP 136 / 97; Pulse 139; Resp 24; Temp 100.1; Pulse Ox 90% on R/A; Weight 58.97 kg (R); jb4 Height 5 ft. 0 in. (152.40 cm); Pain 0/10; 08:00 BP 122 / 87; Pulse 117; Resp 37; Pulse Ox 94% on 2 lpm NC; bp 08:25 BP 128 / 63; Pulse 117; Resp 19; Temp 97; Pulse Ox 96% on 2 lpm NC; bp 09:24 BP 117 / 67; Pulse 111; Resp 24; Temp 98.0(O); Pulse Ox 94% on 2 lpm NC; Pain 0/10; em 10:00 BP 109 / 78; Pulse 104; Resp 19; Pulse Ox 92% ; bp 11:00 BP 104 / 64; Pulse 100; Resp 18; Pulse Ox 94% ; bp 11:56 BP 130 / 88; Pulse 98; Resp 18; Pulse Ox 93% on R/A; bp 13:00 BP 114 / 60; Pulse 88; Resp 16; Pulse Ox 95% on 2 lpm NC; Pain 0/10; em 14:11 BP 120 / 78; Pulse 92; Resp 18; Pulse Ox 99% on 2 lpm NC; em 06:45 Body Mass Index 25.39 (58.97 kg, 152.40 cm) jb4 MDM: 06:39 Patient medically screened. kb 07:08 ED course: Pt's family member, Jammie Reynoso, educated on droplet precautions and that pt cannot have visitors due to isolation status. Her number is . She left pt's purse and it was given to pt by me. . 07:11 Data reviewed: vital signs, nurses notes. Data interpreted: Pulse oximetry: on room air kb is 90 %. Interpretation: borderline. 10:21 Counseling: I had a detailed discussion with the patient and/or guardian regarding: the kb historical points, exam findings, and any diagnostic results supporting the discharge/admit diagnosis, lab results, radiology results, the need for further work-up and treatment in the hospital. Physician consultation: Melisa Enrique MD was contacted at 10:15, regarding admission, to the telemetry unit. patient's condition, and will see patient in ED, shortly. ED course: Pt work of breathing is still increased. O2 sat 89% on room air. Will admit . 10:27 ED course: Pt is on droplet precautions due to possible COVID-19 infection. Test kb pending. 11/29 07:03 Order name: Amylase, Serum; Complete Time: 08:35 kb 11/29 07:03 Order name: Basic Metabolic Panel; Complete Time: 08:35 kb 11/29 07:03 Order name: Blood Culture Adult (2) kb 11/29 07:03 Order name: CBC with Diff; Complete Time: 08:35 kb 11/29 07:03 Order name: Ckmb; Complete Time: 08:35 kb 11/29 07:03 Order name: CPK; Complete Time: 08:35 kb 11/29 07:03 Order name: Lactate; Complete Time: 08:02 kb 11/29 07:03 Order name: LFT's; Complete Time: 08:35 kb 11/29 07:03 Order name: Lipase; Complete Time: 08:35 kb 11/29 07:03 Order name: Procalcitonin; Complete Time: 08:46 kb 11/29 07:03 Order name: Protime (+inr); Complete Time: 08:35 kb 11/29 07:03 Order name: Ptt, Activated; Complete Time: 08:35 kb 11/29 07:03 Order name: Troponin (emerg Dept Use Only); Complete Time: 08:35 kb 11/29 07:03 Order name: Urine Microscopic Only; Complete Time: 09:08 kb 11/29 07:03 Order name: Chest Single View XRAY; Complete Time: 08:13 kb 11/29 07:03 Order name: Accucheck; Complete Time: 08:02 kb 11/29 07:03 Order name: Cardiac monitoring; Complete Time: 08:27 kb 11/29 07:03 Order name: Flu; Complete Time: 07:50 kb 11/29 07:51 Order name: Misc. Lab Test kb 11/29 08:41 Order name: Urine Dipstick--Ancillary (enter results); Complete Time: 11:28 eb 11/29 09:05 Order name: Urine Culture EDMS 11/29 11:00 Order name: Lactate Sepsis 2 HR Follow-up; Complete Time: 11:01 EDMS 11/29 11:53 Order name: Thorax Wo Con; Complete Time: 12:35 EDMS 11/29 07:03 Order name: EKG - Nurse/Tech; Complete Time: 08:27 kb 11/29 07:03 Order name: IV Saline Lock - Large Bore; Complete Time: 08:27 kb 11/29 07:03 Order name: Labs collected and sent; Complete Time: 08:27 kb 11/29 07:03 Order name: O2 Per Protocol; Complete Time: 08:27 kb 11/29 07:03 Order name: O2 Sat Monitoring; Complete Time: 08:27 kb 11/29 07:03 Order name: Urine Dipstick-Ancillary (obtain specimen); Complete Time: 08:51 kb 11/29 07:53 Order name: Labs - recollect needed; Complete Time: 08:01 iw Administered Medications: 07:00 Drug: Tylenol 1000 mg Route: PO; jb4 08:27 Follow up: Response: Temperature is decreased bp 08:00 Drug: Albuterol HFA Inhaler 2 puffs Route: Inhalation; bp 09:20 Follow up: Response: No adverse reaction; Marked relief of symptoms em 08:01 CANCELLED (Physician Discretion): Xopenex (3) 1.25 mg Inhalation once bp 08:01 CANCELLED (Physician Discretion): AtroVENT Aerosol 0.5 mg Inhalation once bp 08:15 Drug: NS 0.9% (30 ml/kg) 30 ml/kg Route: IV; Rate: bolus; Site: left forearm; bp 14:49 Follow up: IV Status: Completed infusion; IV Intake: 1800ml bp 08:15 Drug: predniSONE 40 mg Route: PO; bp 08:27 Follow up: Response: No adverse reaction bp 09:00 Drug: Magnesium Sulfate 2 grams Route: IVPB; Infused Over: 1 hrs; Site: left forearm; em 10:04 Follow up: Response: No adverse reaction; Marked relief of symptoms; IV Status: em Completed infusion; IV Intake: 100ml Disposition: 11/30/19 10:27 Hospitalization ordered by Melisa Enrique for Observation. Preliminary diagnosis are Chronic obstructive pulmonary disease with (acute) exacerbation, Other viral infections of unspecified site. - Bed requested for Telemetry/MedSurg (observation). - Status is Observation. bp - Condition is Stable. - Problem is new. - Symptoms are unchanged. Addendum: 12/01/2019 18:05 Co-signature as Attending Physician, Rd Chamorro MD I agree with the assessment and c russell plan of care. Signatures: Dispatcher [employer] EDBrooke Winn, POLYSOM TECH-C POLYSOM TECH-Ckb Rd Chamorro MD MD cha Munoz, Edgar, RN RN Gregoria Rojas, RN RN Harley Sanchez, RN RN jb4 Onesimo Gomez, RN RN ja1 Jake Maya, RN RN bp Corrections: (The following items were deleted from the chart) 11/29 08:01 07:05 Xopenex (3) 1.25 mg Inhalation once ordered. kb bp 08:01 07:05 AtroVENT Aerosol 0.5 mg Inhalation once ordered. kb bp 14:31 10:27 Hospitalization Ordered by Melisa Enrique MD for Observation. Preliminary diagnosis ja1 is Chronic obstructive pulmonary disease with (acute) exacerbation; Other viral infections of unspecified site. Bed requested for Telemetry/MedSurg (observation). Status is Observation. Condition is Stable. Problem is new. Symptoms are unchanged. kb 15:12 14:31 11/30/2019 10:27 Hospitalization Ordered by Melisa Enrique MD for Observation. bp Preliminary diagnosis is Chronic obstructive pulmonary disease with (acute) exacerbation; Other viral infections of unspecified site. Bed requested for Telemetry/MedSurg (observation). Status is Observation. Condition is Stable. Problem is new. Symptoms are unchanged. ja1
[2019-11-30 11:19] LABS: Urine Blood NEGATIVE (NEG); Urine Glucose NEGATIVE (NEG); Urine Protein NEGATIVE (NEG)
--- NOTE | 2019-11-30 12:31 | RAD REPORT ---
EXAM DESCRIPTION: CT - Thorax Wo Con - 11/30/2019 12:16 pm CLINICAL HISTORY: sob COMPARISON: 2019 TECHNIQUE: Computed axial tomography of the chest was obtained. Contrast was not requested. All CT scans are performed using dose optimization technique as appropriate and may include automated exposure control or mA/KV adjustment according to patient size. FINDINGS: The evaluation of mediastinum, servando and vessels is limited secondary to lack of IV contras t administration. Centrilobular emphysema. A few areas of scarring are present within the lungs. Lungs are otherwise cl ear. No ground-glass opacities. . No mediastinal or hilar lymphadenopathy is seen. A pleural effusion is not present. No pericardial effusion IMPRESSION: COPD without visualization of an acute abnormality
[2019-11-30] MEDS: IPRATROPIUM 200 PUFF/12.9 GM INH IH SCH ×3 (14:46→21:00)
[2019-11-30] MEDS ORDERED: ONDANSETRON 4 MG/2 ML VIAL IV PRN (14:46)
[2019-11-30] MEDS: ALBUTEROL INHALER 60 PUFF/8 GM IH SCH ×2 (14:46→20:46)
[2019-11-30] MEDS ORDERED: Levofloxacin 750mg IV 750 MG/150 ML BAG IV SCH (14:46)
[2019-11-30] MEDS ORDERED: ACETAMINOPHEN 500 MG TAB PO PRN (14:46)
[2019-11-30] MEDS ORDERED: POTASSIUM CL SA 10 MEQ TAB PO ONE (16:00)
[2019-11-30 16:37] VITALS: BMI 25.4
[2019-11-30] MEDS: predniSONE 20 MG TAB PO SCH (20:59)
[2019-11-30] MEDS ORDERED: ZOLPIDEM TARTRATE 5 MG TABLET PO SCH (21:00)
--- NOTE | 2019-11-30 21:32 | HP ---
Date of Admission: 11/30/2019 Consultants: Dr. Hare's with Infectious Disease, Dr. Wild with Pulmonology. Chief Complaint: Fever, shortness of breath, cough, wheezing. Code Status: Full. History Of Present Illness: Patient is a 64-year-old female with past medical history of hypertensio n, hyperlipidemia, COPD, depression, GERD, abdominal aortic aneurysm, status post stent, comes in wit h fever of 102, shortness of breath, and worsening respiratory symptoms. Patient does have a nonprod uctive cough. Denies any nausea or vomiting. 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 She does meet the criteria for coronavirus testing. She is a percent of i [employer]. Health Department was contacted and the patient was tested. The patient's symptoms are con stant, moderate, progressively worsening. In the ER, she was found to be tachycardic, tachypneic. S he was febrile, had a low-grade temperature of 100.1. Her lactate was elevated. Procal was negative . White count was 12.3 with neutrophilia. Chest x-ray was clear. Influenza screen was negative as was the CT chest, which showed COPD changes. Patient was referred for admission. When seen in the E R, she was awake, alert, oriented x3, in some mild respiratory distress. Past Medical History: COPD, hypertension, hyperlipidemia, GERD, depression, history of abdominal aor tic aneurysm, status post stent. Past Surgical History: Abdominal aortic aneurysm with stent, cholecystectomy, appendectomy, hysterec lenin, tonsillectomy, bladder suspension, shoulder surgery, back surgery. Allergies: NO KNOWN DRUG ALLERGIES. Medications: List reviewed. Social History: Patient is , has 3 children. 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 Does use alcohol occasionally. Family History: Sister has cancer. Father, heart disease, lung disease, and diabetes. Mother had C OPD and osteoporosis. Review of Systems: Ten-point system reviewed, negative except as per HPI. Physical Examination: Vital Signs: Blood pressure 136/97, pulse 139, respirations 24, temperature 100.1, O2 sat 90% on edward m air, had to be placed on 2 L via nasal cannula, improved to 94%. General: Awake, alert, oriented x3. Elderly female, ill-appearing, in mild respiratory distress. HEENT: Normocephalic, atraumatic. PERRLA. EOMI. Patient has a mask on. Oropharynx is not checked . CV: S1, S2. Sinus tachycardia. Peripheral pulses present. Respiratory, patient is tachypneic with use of accessory muscles. Diffuse wheezing is heard. Gastrointestinal: Abdomen is soft, nontender, nondistended. Positive bowel sounds. Extremities: No clubbing or cyanosis. No visible edema. Neurologic: Nonfocal. Patient has symmetric strength. Laboratory Data: UA: Positive nitrite, negative leukocyte esterase, 5-10 squamous epithelial cells, 20-50 urine bacteria. Sodium 142, potassium 3.5, chloride 106, CO2 of 26, BUN 15, creatinine 0.74, glucose 101. Lactate 2.6, repeat lactate is 1.6. Calcium 8.3, AST 12, ALT 20. Troponin less than 0 .02. Albumin 3. Lipase 91. Procalcitonin less than 0.05. INR is 0.91. WBC 12.3, H and H 13.9 and 42.7, platelets 248, neutrophils 77%. Influenza screen is negative. Imaging Studies: Chest x-ray shows no acute abnormalities. CT scan of the chest shows COPD without visualization of an acute abnormality. Assessment: A 64-year-old female with. 1.Acute respiratory distress with hypoxia. Patient now on 2 L via nasal cannula, likely secondary t o acute on chronic obstructive pulmonary disease exacerbation and possible coronavirus. 2.Fever, unknown origin. May be related to possible coronavirus due to possible exposure from her c ontact. She does not have any known positive contacts, however. She has high fever, meets criteria by the Health Department due to her shortness of breath, fever, and has been tested. We will await [facility] Department results in the 24-48 hours. Patient has been placed on droplet precautions. We kristopher l consult ID and Pulmonology. 3.Acute on chronic obstructive pulmonary disease exacerbation. We will start on supplemental oxygen . Continue inhalers with albuterol and ipratropium. Patient to use her own inhalers if available. W e will start on p.o. steroids. Case discussed with Dr. Wild. Her chest x-ray and CT scan show c hronic obstructive pulmonary disease changes. 4.Essential hypertension. Resume home medications as appropriate. 5.Mixed hyperlipidemia, stable. 6.Gastroesophageal reflux disease. Continue home medications. 7.Major depressive disorder, stable. 8.History of abdominal aortic aneurysm, status post stent. Plan: Admit patient to airborne isolation room with strict donning and doffing, which should be obse rved. Await coronavirus testing. Length of stay greater than 2 midnights. OSEAS Voice ID: [id number]
[2019-12-01] MEDS: ALBUTEROL INHALER 60 PUFF/8 GM IH SCH ×2 (02:46→08:08)
[2019-12-01 06:39] LABS: Absolute Lymphocytes (CBC) 0.7 K/uL (0.7-4.9); Basophils % 0.2 % (0-1.3); Hematocrit 40.8 % (36.0-45.0); Lymphocytes % 7.9 % (15.3-44.8); MPV 7.7 fL (7.6-11.3)
[2019-12-01 06:46] LABS: BUN Blood Urea Nitrogen 8 mg/dL (7-18); Bicarbonate 24 mmol/L (21-32); Glucose Level 133 mg/dL (74-106); Potassium 4.4 mmol/L (3.5-5.1); Sodium Level 141 mmol/L (136-145)
[2019-12-01] MEDS: predniSONE 20 MG TAB PO SCH (07:43)
[2019-12-01] MEDS: IPRATROPIUM 200 PUFF/12.9 GM INH IH SCH (07:43)
[2019-12-01] MEDS ORDERED: ENOXAPARIN 40 MG/0.4 ML SQ SCH (09:00)
--- NOTE | 2019-12-01 10:48 | P.CNS ---
Date of Consult: 12/01/19 Reason for Consult: COPD exacerbation Chief Complaint: Shortness of breath cough History of Present Illness: Patient is 64 years of age with a history severe COPD got worse in the past 2 days started having worsening cough some fever exposed to grandchildren over also been sick recently the patient is compliant with the bronchodilators does take low-dose prednisone at home also has a nebulizer on oxygen at home feeling somewhat better Allergies No Known Drug Allergies Allergy (Verified 06/13/19 09:51) Unknown No Known Allergies Allergy (Uncoded 02/28/19 23:32) Unknown Home Medications: Atorvastatin Calcium [Lipitor*] 10 mg PO BEDTIME 05/21/16 Metoprolol Succinate [Toprol Xl*] 50 mg PO BEDTIME 05/21/16 Tiotropium [Spiriva Handihaler*] 1 cap IN DAILY 05/21/16 Escitalopram Oxalate 10 mg PO BEDTIME 02/28/19 Fluticasone/Vilanterol [Breo Ellipta 200-25 Mcg INH] 1 each IH BEDTIME 02/28/19 Omeprazole 20 mg PO BEDTIME 02/28/19 Zolpidem Tartrate [Ambien] 10 mg PO BEDTIME 02/28/19 Cyclobenzaprine HCl 10 mg PO TID 11/30/19 Ipratropium/Albuterol Sulfate [Iprat-Albut 0.5-3(2.5) mg/3 ml] 3 ml IH QIDP PRN 11/30/19 predniSONE [Deltasone*] 1 tab PO DAILY 11/30/19 - Past Medical/Surgical History Diabetic: No -: Hyperlipidemia -: Hypertension -: GERD -: Depression -: COPD -: History of abdominal aortic aneurysm, status post stent -: Abdominal aortic aneurysm stent -: Cholecystectomy -: Appendectomy -: Hysterectomy -: Tonsillectomy -: Bladder suspension -: Shoulder Surgery -: Back Surgery Psychosocial/ Personal History: She is , has 3 children, 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 - Family History Sister Medical History: Cancer Father Medical History: Heart disease, Lung disease, Diabetes Mother Medical History: Other (see notes) Notes: COPD Osteoporosis - Social History Alcohol use: Yes CD- Drugs: No Caffeine use: Yes Place of Residence: Home Review of Systems 10-point ROS is otherwise unremarkable General: Weakness Respiratory: Cough, Shortness of Breath Physical Examination Temp Pulse Resp BP Pulse Ox 97.2 F 83 20 124/68 94 12/01/19 08:00 12/01/19 08:00 12/01/19 08:00 12/01/19 08:00 12/01/19 08:00 General: Alert, In no apparent distress, Oriented x3 Respiratory: Expiratory wheezes Cardiovascular: No edema, Normal S1 S2 - Problems (1) COPD exacerbation Current Visit: Yes Status: Acute Plan: Patient is 64 years of age with a history of COPD admitted with an exacerbation patient had a mild fever on admission patient was examined and evaluated by me using PPE. Patient can be discharged home on prednisone 20 mg twice a day for 7 days consider Zithromax due to is anti inflammatory fax vital signs are stable patient can be discharged home with a face mask I will either do a telephone visit next week she is still having symptoms or she will follow up in my office patient's chest x-rays clear pro calcitonin level negative
[2019-12-01 11:43] VITALS: BP 135/80; TEMP 96.8; O2SAT 93
--- NOTE | 2019-12-01 13:40 | DS ---
Date of Discharge: 12/01/2019 Director Of Institutional Sales: Dr. Wild with Pulmonology. Discharge Diagnoses: 1. Acute respiratory distress with hypoxia. 2. Fever. 3. Acute on chronic significant chronic obstructive pulmonary disease exacerbation. 4. Essential hypertension. 5. Mixed hyperlipidemia. 6. Gastroesophageal reflux disease. 7. Major depressive disorder. 8. History of abdominal aortic aneurysm. Hospital Course: Patient is a 64-year-old female with past medical history of hypertension, hyperlipidemia, COPD, depression, GERD, abdominal aortic aneurysm , status post stent, is on home oxygen, comes in with fever of 102, shortness of breath, worsening respiratory symptoms. Patient was admitted to the hospital for COPD exacerbation, respiratory distress. She met the criteria for coronavirus testing and health department agreed and testing was sent off, currently pending at the time of discharge. Patient was started on IV antibiotics, inhalers, and steroids. Patient seen by Pulmonology. Chest x-ray and CT scan showed COPD changes. Patient did well over the course of the hospital stay. She was afebrile. White blood cell count came down. Lactic acid improved. She has had no signs of sepsis. Her procalcitonin was negative. She did have abnormal UA. Her urine culture still pending at this time. Blood cultures were negative. Flu screen was also negative. Patient was then cleared for discharge, sent home in stable condition. She will finish off course of azithromycin and double up on her steroids for the next week. Return to the ER for worsening condition. Followup: Follow up with primary care physician in 2 to 3 days. Follow up with adult basic education instructor, Dr. Wild in 1 to 2 weeks. Diet: Heart healthy. Activity: As tolerated. Physical Examination: General: Awake, alert, oriented x3. No acute distress. CV: S1, S2. Respiratory: Moving air well bilaterally. Minimal wheezing. Gastrointestinal: Abdomen is soft, nontender, nondistended. Positive bowel sounds. Extremities: No clubbing, cyanosis, or edema. Neurologic: Nonfocal. ADDENDUM. Andino virus testing came back negative SA/MODL Voice ID: [id number] Report ID: [id number] [facility]
[2019-12-01] MEDS ORDERED: CYCLOBENZAPRINE 10 MG TAB PO SCH (14:00)
[2019-12-01] MEDS ORDERED: ATORVASTATIN 10 MG TAB PO SCH (21:00)
[2019-12-01] MEDS ORDERED: HOME MED 1 EA UNK (Fluticasone/Vilanterol [Breo Ellipta 200-25 Mcg Inh] 1 EACH) IH SCH (21:00)
[2019-12-01] MEDS ORDERED: METOPROLOL XL 50 MG TAB PO SCH (21:00)
[2019-12-01] MEDS ORDERED: ESCITALOPRAM OXALATE 10 MG PO SCH (21:00)
[2019-12-01] MEDS ORDERED: HOME MED 1 EA UNK (Omeprazole [Omeprazole] 20 MG) PO SCH (21:00)
[2019-12-02] MEDS ORDERED: HOME MED 1 EA UNK (Tiotropium [Spiriva Handihaler*] 1 CAP) IN SCH (09:00)
== END 2019-12-01 12:17 | disposition home or self-care (01) ==
LOC: ER 06:21 → ERHOLD 12:16 → INTOOBSV 12:16 → 4TH 15:01
PROVIDERS: ADMIT Family Medicine; ATTEND Family Medicine
DX: Z03.818 Encounter for observation for suspected exposure to other biological agents ruled out (principal); R06.03 Acute respiratory distress; R09.02 Hypoxemia; R50.9 Fever, unspecified; J44.1 Chronic obstructive pulmonary disease with (acute) exacerbation; I10 Essential (primary) hypertension; E78.2 Mixed hyperlipidemia; K21.9 Gastro-esophageal reflux disease without esophagitis; F32.9 Major depressive disorder, single episode, unspecified; Z79.899 Other long term (current) drug therapy; Z87.891 Personal history of nicotine dependence
CPT/HCPCS: 96365; 96361; 87040 ×2; 87088; 87070; 85025 ×2; 87086; 80048 ×2; 36415; 82150; 82550; 87205; 85610; 80076; 83605 ×2; 85730; 87077; 87186; 84484; 82553; 83690; 84145; 87804 ×2; 71250; 71045; 99285; U0001; J1650; J3475; J7030; G0378 ×3; 81003; 81015; 96366; J7512

== ENCOUNTER 2020-04-02 14:17 | Observation (INO) | payer BC ==
--- OUTSIDE RECORDS SUMMARY | 2020-04-02 14:25 | XMS REPORT | Clinical Summary ---
:1955 Author Organization [facility] Address [address] [place] [address] Care Team Providers Name Role Phone Martine Watkins Primary Care Provider Unavailable Allergies No Known Allergies Medications Medication Sig Dispensed Refills Start Date End Date Status metoprolol Take 25 mg by 0 Activ e (TOPROL-XL) 25 MG 24 mouth 2 (two) [...] daily. atorvastatin Take 10 mg by 0 Act kristie (LIPITOR) 10 MG mouth every tablet evening. [...] 2.5 mLs (0.5 75 mL 0 09/19/2018 (ATROVENT) 0.02 % mg total) by 0 nebulizer solution nebulization every 6 (six) hours as needed. Active Problems Problem Noted Date AAA (abdominal aortic aneurysm) 09/14/2018 Social History Tobacco Use Types Packs/Day Years Used Date Former Smoker Cigarettes Quit: 09/11/19 10 Smokeless Tobacco: Never Used Sex Assigned at Date Recorded Not on file Job Start Date Occupation Industry Not on file Not on file Not on file Travel History Travel Start Travel End No recent travel history available. Last Filed Vital Signs Not on file Plan of Treatment Not on file Results Not on fileafter 04/02/2019 Insurance Payer Benefit Plan / Subscriber ID Type Phone Address Group BLUE CROSS/BLUE BCBS PPO POS EPO xxxxxxxxxxxx PPO [phone] [address] [place] [address] Advance Directives For more information, please contact:[address] [phone] Code Status Date Activated Date Inactivated Comments Full Code 09/14/2018 2:51 PM This code status was determined by: Patient
--- OUTSIDE RECORDS SUMMARY | 2020-04-02 14:29 | XMS REPORT | Continuity of Care Document ---
:1955 Author Organization [facility] t Address [address] [place] [place] [address] Care Team Providers Name Role Phone Martine Watkins Primary Care Physician Unavailable Roland ASCENCIO Attending Clinician Vishnu Herman MD Attending Clinician Winsome MCNAIR Attending Clinician Doctor Unassigned, Name Attending Clinician Unavailable NAHOMY RUSSELL Attending Clinician Unavailable NAHOMY RUSSELL Admitting Clinician Unavailable Payers Payer Name Policy Type Policy Number Effective Date Expiration Date S ource Problems Condition Condition Condition Status Onset Resolution Last Treating Co mments Source Name Details Category Date Date Treatment Clinician Date AAA AAA Disease Active [facility] (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) 00 [facility] Allergies, Adverse Reactions, Alerts Allergy Allergy Status Severity Reaction(s) Onset Inactive Treating Comm ents Source Name Type Date Date Clinician No Known DA [facility] No Known DA [facility] [place] 00[facility]: [address] No Known DA Active [facility] [place] 00:[facility]: [address] Social History Social Habit Start Date Stop Date Quantity Comments Source Sex Assigned At [facility] History of tobacco 2009-09-11 [facility] Smoking Status Start Date Stop Date Source Former smoker 2018-09-15 00:00:00 2018-09-15 00:00:00 [facility] Medications Ordered Filled Start Stop Current Ordering Indication Dosage Frequency Signature Comments Components Source Medication Medication Date Date Medication? Clinician (SIG) Name Name ipratropium 2020- No .5mg Take 2.[address] (ATROVENT) 09-19 mLs (0.5 [facility] - 0.02 % 00:00: 23:59 mg total) Medic al nebulizer 00 :00 by [place] solution nebulizati on every 6 (six) hours as needed. cyclobenzap Yes 10mg Take [address] [facility] rine 1-04 by mouth 3 [facility] - (FLEXERIL) 15:00: (three) Medi zan 10 MG 14 times Center tablet daily as needed for Muscle spasms. omeprazole Yes 20mg QD Take [address] (PRILOSEC) 1-04 by mouth [facility] - 20 MG 15:00: daily. Medical capsule 14 [place] atorvastati Yes 10mg QD Take [address] [facility] n (LIPITOR) 1-04 by mouth [facility] - 10 MG 15:00: every Medical tablet 14 evening. [place] acetaminoph Yes 1{tbl} Take [address] en-codeine 1-04 tablet by [facility] - (TYLENOL 15:00: mouth Medical #4) 300-60 14 every 4 Center mg per (four) tablet hours as needed for Pain. tiotropium Yes 18ug QD Inhale [address] bromide 2.5 1-04 mcg by [facility] - mcg/actuati 15:00: mouth via Amanda anderson on Mist 14 inhaler Center daily. Missing or Yes 1.3% Apply 1.[address] Non-Formula 1-04 % [facility] - ry 15:00: topically Medical Medication 14 every 12 Cente r (twelve) hours Diclofenac Epolamine Topical patch 1.3% . metoprolol 0 Yes 25mg Q.5D Take [address] (TOPROL-XL) 04 by mouth 2 Lisandra kes - 25 MG 24 hr 15:00: (two) Medic al tablet 13 times Center daily. zolpidem Yes 10mg Take [address] [facility] (AMBIEN) 10 09-14 by mouth [facility] - mg tablet 15:00: every Medical 13 night as Center needed for Insomnia. escitalopra Yes 20mg QD Take [address] [facility] m oxalate 09-14 by mouth [facility] - (LEXAPRO) 15:00: daily. Medica l 10 MG 13 Center tablet Procedures This patient has no known procedures. Encounters Start End Encounter Admission Attending Care Care Encounter Source Date/Time Date/Time Type Type Clinicians Facility Department ID 2020-03-31 2020-03-31 Telephone [facility] [phone] [id number] 00:00:00 00:00:00 [facility] [id number] [place] [id number] Professio [phone] [place] [address] [address] 2020-03-11 2020-03-11 Refill [facility] [id number] 00:00:00 00:00:00 [facility] [id number] Vishnu [place] [id number] Professio [phone] [place] [address] [address] 2020-01-21 2020-01-21 [facility] [id number] 00:00:00 00:00:00 Nancy Quintana [id number] [place] [id number] Professio [phone] [address] 2020-01-20 2020-01-20 [facility] [id number] 00:00:00 00:00:00 [facility] [id number] [place] [id number] Professio [phone] [place] [address] [address] 2020-01-17 2020-01-17 Telephone Roland, RUST [id number] 00:00:00 00:00:00 [facility] [id number] [place] [id number] Professio [phone] [place] [address] Office [facility] 2020-01-16 2020-01-16 [facility] [id number] 00:00:00 00:00:00 [facility] [id number] [place] [id number] Professio [phone] [place] [address] Office [facility] 2020-01-16 2020-01-16 [facility] [id number] 00:00:00 00:00:00 Herman Quintana [id number] [place] [id number] Professio [phone] [address] 2020-01-01 2020-01-01 [facility] [id number] 00:00:00 00:00:00 Herman Shafer [id number] [place] [id number] Professio [phone] 2019-12-24 2019-12-24 [facility] [id number] 10:28:50 10:43:50 ne Visit Harley Quintana [id number] Vishnu [place] [id number] Professio [phone] [address] 2019-12-20 2019-12-20 [facility] [id number] 00:00:00 00:00:00 Herman Quintana [id number] [place] [id number] Professio [phone] [address] 2019-12-19 2019-12-19 Orders Doctor HERMINIA [id number] 00:00:00 00:00:00 Only Unassigned, SARAH [id number] [place] [facility] [id number] [phone] [phone] 2019-12-18 Telephone Roland RUST [id number] 00:00:00 00:00:00 Herman [facility] [id number] [place] [id number] Professio [phone] [place] [address] 2019-12-04 2019-12-04 Telemedici Roland RUST [id number] 06:54:04 07:09:04 ne Visit Herman [facility] [id number] [place] [id number] Professio [phone] [place] [address] 2019-10-31 2019-10-31 Refill Roland RUST [id number] 00:00:00 00:00:00 [facility] [id number] [place] [id number] Professio [phone] [place] [address] 2019-10-25 2019-10-25 [facility] [id number] 10:00:00 23:59:00 Encounter Herman Quintana [id number] [place] [id number] [place] [phone] 2019-10-17 2019-10-17 Office Roland RUST [id number] 14:16:28 14:31:28 Visit [facility] [id number] [place] [id number] [facility] [phone] [place] [address] [address] Results Test Description Test Time Test Comments Results Result Comments Source CBC W/O DIFF 2018-12-19 11:16:00 Test Item Value Reference Range Interpretation Comme nts WHITE BLOOD CELL (test code = WBC) 8.2 K/MM3 3.8-9.8 N RED BLOOD CELL (test code = RBC) 3.79 M/MM3 3.58-4.97 N HEMOGLOBIN (test code = HGB) 10.6 G/DL 11.2-14.9 L HEMATOCRIT (test code = HCT) 34.9 % 33.2-43.5 N MEAN CELL VOLUME (test code = MCV) 92 fL 80.7-99.1 N MEAN CELL HGB (test code = MCH) 28.0 pg 27.0-34.1 N MEAN CELL HGB CONCETRATION (test code = MCHC) 30.4 % 32.2-35. 7 L RED CELL DISTRIBUTION WIDTH (test code = RDW) 14.7 % 12.1-15. 2 N PLATELET COUNT (test code = PLT) 336 K/MM3 129-368 N IMMATURE GRANULOCYTE % (test code = IG%) 1.0 % 0.0-2.0 N NEUTROPHIL # (test code = NT#) 4.14 K/mm3 2.0-7.6 N IMMATURE GRANULOCYTE # (test code = IG#) 0.08 x10 3/uL 0-0.03 H LYMPHOCYTE # (test code = LY#) 1.62 K/mm3 1.0-3.8 N MONOCYTE # (test code = MO#) 0.80 K/mm3 0.1-0.8 N EOSINOPHIL # (test code = EO#) 1.44 K/mm3 0.0-0.2 H BASOPHIL # (test code = BA#) 0.09 K/mm3 0.0-0.2 N NUCLEATED RBC # (test code = NRBC#) 0.00 K/mm3 0.0-0.1 N WBC [id number] 11:16:00 Test Item Value Reference Range Interpretation Comments RBC MORPHOLOGY REQUIRED (test code NORMAL = RBCM) TOTAL CELLS COUNTED (test code = 130 #CELLS TCC) SEGMENTED NEUTROPHILS (test code = 58.5 % 36.2-73.8 N SEG) BAND NEUTROPHIL (test code = BAND) 8.5 % 0-10 N LYMPHOCYTE (test code = LYMPH) 5.9 % 12.9-45.1 L ATYPICAL LYMPH (test code = 9.3 % 0-0 H ALYMPH) MONOCYTE (test code = MON) 3.4 % 0-11 N EOSINOPHIL (test code = EOS) 11.9 % 1-7 H METAMYELOCYTE (test code = META) 1.7 % 0-0 H PLASMA CELL (test code = GUS) 0.8 % 0-0 H POIKILOCYTOSIS (test code = POIK) FEW NONE PLATELET ESTIMATE (test code = ADEQUATE ADEQUATE PLTEST) PLATELET MORPHOLOGY (test code = NORMAL NORMAL PLTMORPH) - XR CHEST [id number] 08:27:00 Patient Name: MOISÉS CANNON Unit No: [id number] EXAMS: CPT CODE: [id number] XR CHEST 1V [id number] EXAMINATION: - XR CHEST 1V. LOCATION: B2. HISTORY: S/P CHEST TUBE REMOVAL. COMPARISON: Radiograph dated 12/18/2018. TECHNIQUE: Single AP view of the chest [...] MD Technologist: Maryjane Giles RT(R) Transcrpt Date/Tm/Trnsp: 12/19/2018 (826) [email or web address] Orig Print D/T: S: 12/19/2018 (829) [facility] NAME: MOISÉS CANNON [id number] PHYS: [place] [address] : 1955 AGE: 63 SEX: F LOC: Z.SI04 A PHONE #: [phone] EXAM DATE: 12/19/2018 STATUS: ADM IN FAX #: [phone] RADIOLOGY NO: PAGE 1 Signed ReportBASIC METABOLIC PANEL 2018-12-19 06:07:00 Test Item Value Reference Range Interpretation Comments SODIUM (test code = 138 MMOL/L 137-145 N NA) POTASSIUM (test code = 4.7 MMOL/L 3.5-5.1 N K) CHLORIDE (test code = 101 MMOL/L 98-107 N CL) CARBON DIOXIDE (test 31 MMOL/L 22-30 H code = CO2) GLUCOSE (test code = 97 MG/DL 74-106 N GLU) BLOOD UREA NITROGEN 10 MG/DL 7-17 N (test code = BUN) GLOMERULAR FILTRATION > 60 Report ing units: RATE (test code = GFR) ml/mi n/1.73 m2 (Modified MDRD Formula)Referen ce Range: > or = 6 0 ml/min/1.73 m2 CREATININE (test code 0.60 MG/DL 0.52-1.04 N = CREAT) CALCIUM (test code = 9.2 MG/DL 8.4-10.2 N CA) [id number] 06:07:00 Test Item Value Reference Range Interpretation Comments MAGNESIUM (test code = MAG) 2.0 MG/DL 1.6-2.3 N CBC W/O [id number] 05:55:00 Test Item Value Reference Range Interpretation Comments WHITE BLOOD CELL (test code = 8.2 K/MM3 3.8-9.8 N WBC) RED BLOOD CELL (test code = 3.79 M/MM3 3.58-4.97 N RBC) HEMOGLOBIN (test code = HGB) 10.6 G/DL 11.2-14.9 L HEMATOCRIT (test code = HCT) 34.9 % 33.2-43.5 N MEAN CELL VOLUME (test code = 92 fL 80.7-99.1 N MCV) MEAN CELL HGB (test code = MCH) 28.0 pg 27.0-34.1 N MEAN CELL HGB CONCETRATION 30.4 % 32.2-35.7 L (test code = MCHC) RED CELL DISTRIBUTION WIDTH 14.7 % 12.1-15.2 N (test code = RDW) PLATELET COUNT (test code = 336 K/MM3 129-368 N PLT) IMMATURE GRANULOCYTE % (test 1.0 % 0.0-2.0 N code = IG%) NEUTROPHIL # (test code = NT#) 4.14 K/mm3 2.0-7.6 N IMMATURE GRANULOCYTE # (test 0.08 x10 3/uL 0-0.03 H code = IG#) LYMPHOCYTE # (test code = LY#) 1.62 K/mm3 1.0-3.8 N MONOCYTE # (test code = MO#) 0.80 K/mm3 0.1-0.8 N EOSINOPHIL # (test code = EO#) 1.44 K/mm3 0.0-0.2 H BASOPHIL # (test code = BA#) 0.09 K/mm3 0.0-0.2 N NUCLEATED RBC # (test code = 0.00 K/mm3 0.0-0.1 N NRBC#) WBC [id number] 05:55:00 Test Item Value Reference Range Interpretation Comments RBC MORPHOLOGY REQUIRED (test code = RBCM) TOTAL CELLS COUNTED (test code = TCC) #CELLS SEGMENTED NEUTROPHILS (test code = % 36.2-73.8 SEG) LYMPHOCYTE (test code = LYMPH) % 12.9-45.1 MONOCYTE (test code = MON) % 0-11 PLATELET ESTIMATE (test code = ADEQUATE PLTEST) PLATELET MORPHOLOGY (test code = NORMAL PLTMORPH) CBC W/AUTO [id number] 05:55:00 Test Item Value Reference Range Interpretation Comments WHITE BLOOD CELL (test code = 8.2 K/MM3 3.8-9.8 N WBC) RED BLOOD CELL (test code = 3.79 M/MM3 3.58-4.97 N RBC) HEMOGLOBIN (test code = HGB) 10.6 G/DL 11.2-14.9 L HEMATOCRIT (test code = HCT) 34.9 % 33.2-43.5 N MEAN CELL VOLUME (test code = 92 fL 80.7-99.1 N MCV) MEAN CELL HGB (test code = MCH) 28.0 pg 27.0-34.1 N MEAN CELL HGB CONCETRATION 30.4 % 32.2-35.7 L (test code = MCHC) RED CELL DISTRIBUTION WIDTH 14.7 % 12.1-15.2 N (test code = RDW) PLATELET COUNT (test code = 336 K/MM3 129-368 N PLT) MEAN PLATELET VOLUME (test code 9.4 fl 7.4-10.4 N = MPV) NEUTROPHIL % (test code = NT%) 50.7 % 43-75 N IMMATURE GRANULOCYTE % (test 1.0 % 0.0-2.0 N code = IG%) LYMPHOCYTE % (test code = LY%) 19.8 % 14-44 N MONOCYTE % (test code = MO%) 9.8 % 4-13 N EOSINOPHIL % (test code = EO%) 17.6 % 0-6 H BASOPHIL % (test code = BA%) 1.1 % 0-2 N NUCLEATED RBC % (test code = 0.0 % 0-1.0 N NRBC%) NEUTROPHIL # (test code = NT#) 4.14 K/mm3 2.0-7.6 N IMMATURE GRANULOCYTE # (test 0.08 x10 3/uL 0-0.03 H code = IG#) LYMPHOCYTE # (test code = LY#) 1.62 K/mm3 1.0-3.8 N MONOCYTE # (test code = MO#) 0.80 K/mm3 0.1-0.8 N EOSINOPHIL # (test code = EO#) 1.44 K/mm3 0.0-0.2 H BASOPHIL # (test code = BA#) 0.09 K/mm3 0.0-0.2 N NUCLEATED RBC # (test code = 0.00 K/mm3 0.0-0.1 N NRBC#) WBC [id number] 05:55:00 Test Item Value Reference Range Interpretation Comments RBC MORPHOLOGY REQUIRED (test code = RBCM) TOTAL CELLS COUNTED (test code = TCC) #CELLS SEGMENTED NEUTROPHILS (test code = % 36.2-73.8 SEG) LYMPHOCYTE (test code = LYMPH) % 12.9-45.1 MONOCYTE (test code = MON) % 0-11 PLATELET ESTIMATE (test code = ADEQUATE PLTEST) PLATELET MORPHOLOGY (test code = NORMAL PLTMORPH) - XR CHEST [id number] 13:33:00 Patient Name: MOISÉS CANNON Unit No: [id number] EXAMS: CPT CODE: [id number] XR CHEST 1V [id number] Chest Radiograph History: RIGHT CHEST TUBE REMOVAL [...] Technologist: Jo-Ann Hall (RT) Transcrpt Date/Tm/Trnsp: 12/18/2018 (4976) Marlena.[email or web address] Orig Print D/T: S: 12/18/2018 (7007) [facility] NAME: MOISÉS CANNON[address] PHYS: DONY.Giovanna Rosal[place] [address] : 1955 AGE: 63 SEX: F LOC: Z.SI04 A PHONE #: [phone] EXAM DATE: 12/18/2018 STATUS: ADM IN FAX #: [phone] RADIOLOGY NO: PAGE 1 Signed ReportCBC W/O [id number] 09:20:00 Test Item Value Reference Range Interpretation Comments WHITE BLOOD CELL (test code = 8.1 K/MM3 3.8-9.8 N WBC) RED BLOOD CELL (test code = 3.57 M/MM3 3.58-4.97 L RBC) HEMOGLOBIN (test code = HGB) 10.1 G/DL 11.2-14.9 L HEMATOCRIT (test code = HCT) 32.5 % 33.2-43.5 L MEAN CELL VOLUME (test code = 91 fL 80.7-99.1 N MCV) MEAN CELL HGB (test code = MCH) 28.3 pg 27.0-34.1 N MEAN CELL HGB CONCETRATION 31.1 % 32.2-35.7 L (test code = MCHC) RED CELL DISTRIBUTION WIDTH 14.8 % 12.1-15.2 N (test code = RDW) PLATELET COUNT (test code = 320 K/MM3 129-368 N PLT) IMMATURE GRANULOCYTE % (test 1.0 % 0.0-2.0 N code = IG%) NEUTROPHIL # (test code = NT#) 4.43 K/mm3 2.0-7.6 N IMMATURE GRANULOCYTE # (test 0.08 x10 3/uL 0-0.03 H code = IG#) LYMPHOCYTE # (test code = LY#) 1.50 K/mm3 1.0-3.8 N MONOCYTE # (test code = MO#) 0.85 K/mm3 0.1-0.8 H EOSINOPHIL # (test code = EO#) 1.13 K/mm3 0.0-0.2 H BASOPHIL # (test code = BA#) 0.06 K/mm3 0.0-0.2 N NUCLEATED RBC # (test code = 0.00 K/mm3 0.0-0.1 N NRBC#) WBC [id number] 09:20:00 Test Item Value Reference Range Interpretation Comments RBC MORPHOLOGY REQUIRED (test code NORMAL = RBCM) TOTAL CELLS COUNTED (test code = 130 #CELLS TCC) SEGMENTED NEUTROPHILS (test code = 62.2 % 36.2-73.8 N SEG) BAND NEUTROPHIL (test code = BAND) 0.0 % 0-10 N LYMPHOCYTE (test code = LYMPH) 11.7 % 12.9-45.1 L ATYPICAL LYMPH (test code = 0.0 % 0-0 N ALYMPH) MONOCYTE (test code = MON) 4.5 % 0-11 N EOSINOPHIL (test code = EOS) 21.6 % 1-7 H NUCLEATED RED BLOOD CELL (test 3 0-0 H code = NRBC) PLATELET ESTIMATE (test code = ADEQUATE ADEQUATE PLTEST) PLATELET MORPHOLOGY (test code = NORMAL NORMAL PLTMORPH) - XR CHEST [id number] 08:19:00 Patient Name: MOISÉS CANNON Unit No: [id number] EXAMS: CPT CODE: [id number] XR CHEST 1V [id number] EXAMINATION: - XR CHEST 1V. LOCATION: B2. [...] and signed by: Pushpa Wagoner MD CC: Cihto Hanson MD Technologist: Maryjane Giles RT(R) Transcrpt Date/Tm/Trnsp: 12/18/2018 (818) [email or web address] Orig Print D/T: S: 12/18/2018 (08) [facility] NAME: MOISÉS CANNON [id number] PHYS: [place] [address] : 1955 AGE: 63 SEX: F LOC: TAWANNA Nuñez PHONE #: [phone] EXAM DATE: 12/18/2018 STATUS: ADM IN FAX #: [phone] RADIOLOGY NO: PAGE 1 Signed ReportBASIC METABOLIC [id number] 05:44:00 Test Item Value Reference Range Interpretation Comments SODIUM (test code = 135 MMOL/L 137-145 L NA) POTASSIUM (test code = 4.0 MMOL/L 3.5-5.1 N K) CHLORIDE (test code = 103 MMOL/L 98-107 N CL) CARBON DIOXIDE (test 29 MMOL/L 22-30 N code = CO2) GLUCOSE (test code = 106 MG/DL 74-106 N GLU) BLOOD UREA NITROGEN 10 MG/DL 7-17 N (test code = BUN) GLOMERULAR FILTRATION > 60 Report ing units: RATE (test code = GFR) ml/mi n/1.73 m2 (Modified MDRD Formula)Referen ce Range: > or = 6 0 ml/min/1.73 m2 CREATININE (test code 0.50 MG/DL 0.52-1.04 L = CREAT) CALCIUM (test code = 8.8 MG/DL 8.4-10.2 N CA) [id number] 05:44:00 Test Item Value Reference Range Interpretation Comments MAGNESIUM (test code = MAG) 1.9 MG/DL 1.6-2.3 N CBC W/O [id number] 05:30:00 Test Item Value Reference Range Interpretation Comments WHITE BLOOD CELL (test code = 8.1 K/MM3 3.8-9.8 N WBC) RED BLOOD CELL (test code = 3.57 M/MM3 3.58-4.97 L RBC) HEMOGLOBIN (test code = HGB) 10.1 G/DL 11.2-14.9 L HEMATOCRIT (test code = HCT) 32.5 % 33.2-43.5 L MEAN CELL VOLUME (test code = 91 fL 80.7-99.1 N MCV) MEAN CELL HGB (test code = MCH) 28.3 pg 27.0-34.1 N MEAN CELL HGB CONCETRATION 31.1 % 32.2-35.7 L (test code = MCHC) RED CELL DISTRIBUTION WIDTH 14.8 % 12.1-15.2 N (test code = RDW) PLATELET COUNT (test code = 320 K/MM3 129-368 N PLT) IMMATURE GRANULOCYTE % (test 1.0 % 0.0-2.0 N code = IG%) NEUTROPHIL # (test code = NT#) 4.43 K/mm3 2.0-7.6 N IMMATURE GRANULOCYTE # (test 0.08 x10 3/uL 0-0.03 H code = IG#) LYMPHOCYTE # (test code = LY#) 1.50 K/mm3 1.0-3.8 N MONOCYTE # (test code = MO#) 0.85 K/mm3 0.1-0.8 H EOSINOPHIL # (test code = EO#) 1.13 K/mm3 0.0-0.2 H BASOPHIL # (test code = BA#) 0.06 K/mm3 0.0-0.2 N NUCLEATED RBC # (test code = 0.00 K/mm3 0.0-0.1 N NRBC#) WBC [id number] 05:30:00 Test Item Value Reference Range Interpretation Comments RBC MORPHOLOGY REQUIRED (test code = RBCM) TOTAL CELLS COUNTED (test code = TCC) #CELLS SEGMENTED NEUTROPHILS (test code = % 36.2-73.8 SEG) LYMPHOCYTE (test code = LYMPH) % 12.9-45.1 MONOCYTE (test code = MON) % 0-11 PLATELET ESTIMATE (test code = ADEQUATE PLTEST) PLATELET MORPHOLOGY (test code = NORMAL PLTMORPH) CBC W/AUTO [id number] 05:30:00 Test Item Value Reference Range Interpretation Comments WHITE BLOOD CELL (test code = 8.1 K/MM3 3.8-9.8 N WBC) RED BLOOD CELL (test code = 3.57 M/MM3 3.58-4.97 L RBC) HEMOGLOBIN (test code = HGB) 10.1 G/DL 11.2-14.9 L HEMATOCRIT (test code = HCT) 32.5 % 33.2-43.5 L MEAN CELL VOLUME (test code = 91 fL 80.7-99.1 N MCV) MEAN CELL HGB (test code = MCH) 28.3 pg 27.0-34.1 N MEAN CELL HGB CONCETRATION 31.1 % 32.2-35.7 L (test code = MCHC) RED CELL DISTRIBUTION WIDTH 14.8 % 12.1-15.2 N (test code = RDW) PLATELET COUNT (test code = 320 K/MM3 129-368 N PLT) MEAN PLATELET VOLUME (test code 9.2 fl 7.4-10.4 N = MPV) NEUTROPHIL % (test code = NT%) 55.1 % 43-75 N IMMATURE GRANULOCYTE % (test 1.0 % 0.0-2.0 N code = IG%) LYMPHOCYTE % (test code = LY%) 18.6 % 14-44 N MONOCYTE % (test code = MO%) 10.6 % 4-13 N EOSINOPHIL % (test code = EO%) 14.0 % 0-6 H BASOPHIL % (test code = BA%) 0.7 % 0-2 N NUCLEATED RBC % (test code = 0.0 % 0-1.0 N NRBC%) NEUTROPHIL # (test code = NT#) 4.43 K/mm3 2.0-7.6 N IMMATURE GRANULOCYTE # (test 0.08 x10 3/uL 0-0.03 H code = IG#) LYMPHOCYTE # (test code = LY#) 1.50 K/mm3 1.0-3.8 N MONOCYTE # (test code = MO#) 0.85 K/mm3 0.1-0.8 H EOSINOPHIL # (test code = EO#) 1.13 K/mm3 0.0-0.2 H BASOPHIL # (test code = BA#) 0.06 K/mm3 0.0-0.2 N NUCLEATED RBC # (test code = 0.00 K/mm3 0.0-0.1 N NRBC#) WBC [id number] 05:30:00 Test Item Value Reference Range Interpretation Comments RBC MORPHOLOGY REQUIRED (test code = RBCM) TOTAL CELLS COUNTED (test code = TCC) #CELLS SEGMENTED NEUTROPHILS (test code = % 36.2-73.8 SEG) LYMPHOCYTE (test code = LYMPH) % 12.9-45.1 MONOCYTE (test code = MON) % 0-11 PLATELET ESTIMATE (test code = ADEQUATE PLTEST) PLATELET MORPHOLOGY (test code = NORMAL PLTMORPH) CBC W/O [id number] 09:18:00 Test Item Value Reference Range Interpretation Comments WHITE BLOOD CELL (test code = 7.7 K/MM3 3.8-9.8 N WBC) RED BLOOD CELL (test code = 3.51 M/MM3 3.58-4.97 L RBC) HEMOGLOBIN (test code = HGB) 9.9 G/DL 11.2-14.9 L HEMATOCRIT (test code = HCT) 32.0 % 33.2-43.5 L MEAN CELL VOLUME (test code = 91 fL 80.7-99.1 N MCV) MEAN CELL HGB (test code = MCH) 28.2 pg 27.0-34.1 N MEAN CELL HGB CONCETRATION 30.9 % 32.2-35.7 L (test code = MCHC) RED CELL DISTRIBUTION WIDTH 15.0 % 12.1-15.2 N (test code = RDW) PLATELET COUNT (test code = 316 K/MM3 129-368 N PLT) IMMATURE GRANULOCYTE % (test 1.3 % 0.0-2.0 N code = IG%) NEUTROPHIL # (test code = NT#) 4.52 K/mm3 2.0-7.6 N IMMATURE GRANULOCYTE # (test 0.10 x10 3/uL 0-0.03 H code = IG#) LYMPHOCYTE # (test code = LY#) 1.21 K/mm3 1.0-3.8 N MONOCYTE # (test code = MO#) 0.99 K/mm3 0.1-0.8 H EOSINOPHIL # (test code = EO#) 0.86 K/mm3 0.0-0.2 H BASOPHIL # (test code = BA#) 0.05 K/mm3 0.0-0.2 N NUCLEATED RBC # (test code = 0.00 K/mm3 0.0-0.1 N NRBC#) WBC [id number] 09:18:00 Test Item Value Reference Range Interpretation Comments RBC MORPHOLOGY REQUIRED (test code NORMAL = RBCM) TOTAL CELLS COUNTED (test code = 130 #CELLS TCC) SEGMENTED NEUTROPHILS (test code = 72.6 % 36.2-73.8 N SEG) BAND NEUTROPHIL (test code = BAND) 0.0 % 0-10 N LYMPHOCYTE (test code = LYMPH) 8.8 % 12.9-45.1 L ATYPICAL LYMPH (test code = 1.8 % 0-0 H ALYMPH) MONOCYTE (test code = MON) 8.0 % 0-11 N EOSINOPHIL (test code = EOS) 7.9 % 1-7 H BASOPHIL (test code = BASO) 0.9 % 0-2 N NUCLEATED RED BLOOD CELL (test 2 0-0 H code = NRBC) PLATELET ESTIMATE (test code = ADEQUATE ADEQUATE PLTEST) PLATELET MORPHOLOGY (test code = NORMAL NORMAL PLTMORPH) - XR CHEST [id number] 08:48:00 Patient Name: MOISÉS CANNON Unit No: [id number] EXAMS: CPT CODE: [id number] XR CHEST 1V [id number] REASON FOR EXAM: Chest tube, lung lesion, [...] with chest tube in place and no detec table pneumothorax. There is more density in the left lung than seen on film several days ago possibly developing asymmetric pulmonary edema or pneumonia. Location: U19 at 0848 Reported and signed by: Chris Ortiz MD CC: Chito Hanson MD Technologist: Maryjnae Giles RT(R) Transcrpt Date/Tm/Trnsp: 12/17/2018 (0848) [facility] Orig Print D/T: S: 12/17/2018 (0851) [facility] NAME: MOISÉS CANNON [id number] [address] PHYS: [place] [address] : 1955 AGE: 63 SEX: F LOC: [id number] A PHONE #: [phone] EXAM DATE: 12/17/2018 STATUS: ADM IN FAX #: [phone] RADIOLOGY NO: PAGE 1 Signed ReportBASIC METABOLIC [id number] 05:48:00 Test Item Value Reference Range Interpretation Comments SODIUM (test code = 136 MMOL/L 137-145 L NA) POTASSIUM (test code = 3.8 MMOL/L 3.5-5.1 N K) CHLORIDE (test code = 103 MMOL/L 98-107 N CL) CARBON DIOXIDE (test 30 MMOL/L 22-30 N code = CO2) GLUCOSE (test code = 110 MG/DL 74-106 H GLU) BLOOD UREA NITROGEN 8 MG/DL 7-17 N (test code = BUN) GLOMERULAR FILTRATION > 60 Report ing units: RATE (test code = GFR) ml/mi n/1.73 m2 (Modified MDRD Formula)Referen ce Range: > or = 6 0 ml/min/1.73 m2 CREATININE (test code 0.60 MG/DL 0.52-1.04 N = CREAT) CALCIUM (test code = 8.6 MG/DL 8.4-10.2 N CA) [id number] 05:48:00 Test Item Value Reference Range Interpretation Comments MAGNESIUM (test code = MAG) 2.0 MG/DL 1.6-2.3 N PROTHROMBIN [id number] 05:37:00 Test Item Value Reference Range Interpretation Comments PROTHROMBIN TIME 10.4 SECONDS 9.6-11.6 N PATIENT (test code = PTP) INTERNATIONAL NORMAL 1.0 0.8-1.1 N The INR is to be RATIO (test code = used only for INR) monitoring oral anticoagulantth erap y. INDICATION I NR VALUE ---- ---- ---- -------1. Prophylaxis, de ep venous thrombos is, including hig h risk surgery. 2.0 - 3.0 2. Prophylaxis, de ep venous thrombos is, hip surgery, treatment for d eep venous thrombosis or pulmonary prevention of systemic emboli sm in patients wit h valvular heart disease, atrial fibrillation, tissue heart va lve, or acute myocar dial infarction. 2.0 - 3 .0 3. Mechanical prosthesis hear t valves, recurrent syste meredith embolism. 3.0 - 4.5 CBC W/O [id number] 05:18:00 Test Item Value Reference Range Interpretation Comments WHITE BLOOD CELL (test code = 7.7 K/MM3 3.8-9.8 N WBC) RED BLOOD CELL (test code = 3.51 M/MM3 3.58-4.97 L RBC) HEMOGLOBIN (test code = HGB) 9.9 G/DL 11.2-14.9 L HEMATOCRIT (test code = HCT) 32.0 % 33.2-43.5 L MEAN CELL VOLUME (test code = 91 fL 80.7-99.1 N MCV) MEAN CELL HGB (test code = MCH) 28.2 pg 27.0-34.1 N MEAN CELL HGB CONCETRATION 30.9 % 32.2-35.7 L (test code = MCHC) RED CELL DISTRIBUTION WIDTH 15.0 % 12.1-15.2 N (test code = RDW) PLATELET COUNT (test code = 316 K/MM3 129-368 N PLT) IMMATURE GRANULOCYTE % (test 1.3 % 0.0-2.0 N code = IG%) NEUTROPHIL # (test code = NT#) 4.52 K/mm3 2.0-7.6 N IMMATURE GRANULOCYTE # (test 0.10 x10 3/uL 0-0.03 H code = IG#) LYMPHOCYTE # (test code = LY#) 1.21 K/mm3 1.0-3.8 N MONOCYTE # (test code = MO#) 0.99 K/mm3 0.1-0.8 H EOSINOPHIL # (test code = EO#) 0.86 K/mm3 0.0-0.2 H BASOPHIL # (test code = BA#) 0.05 K/mm3 0.0-0.2 N NUCLEATED RBC # (test code = 0.00 K/mm3 0.0-0.1 N NRBC#) WBC [id number] 05:18:00 Test Item Value Reference Range Interpretation Comments RBC MORPHOLOGY REQUIRED (test code = RBCM) TOTAL CELLS COUNTED (test code = TCC) #CELLS SEGMENTED NEUTROPHILS (test code = % 36.2-73.8 SEG) LYMPHOCYTE (test code = LYMPH) % 12.9-45.1 MONOCYTE (test code = MON) % 0-11 PLATELET ESTIMATE (test code = ADEQUATE PLTEST) PLATELET MORPHOLOGY (test code = NORMAL PLTMORPH) CBC W/AUTO [id number] 05:18:00 Test Item Value Reference Range Interpretation Comments WHITE BLOOD CELL (test code = 7.7 K/MM3 3.8-9.8 N WBC) RED BLOOD CELL (test code = 3.51 M/MM3 3.58-4.97 L RBC) HEMOGLOBIN (test code = HGB) 9.9 G/DL 11.2-14.9 L HEMATOCRIT (test code = HCT) 32.0 % 33.2-43.5 L MEAN CELL VOLUME (test code = 91 fL 80.7-99.1 N MCV) MEAN CELL HGB (test code = MCH) 28.2 pg 27.0-34.1 N MEAN CELL HGB CONCETRATION 30.9 % 32.2-35.7 L (test code = MCHC) RED CELL DISTRIBUTION WIDTH 15.0 % 12.1-15.2 N (test code = RDW) PLATELET COUNT (test code = 316 K/MM3 129-368 N PLT) MEAN PLATELET VOLUME (test code 9.5 fl 7.4-10.4 N = MPV) NEUTROPHIL % (test code = NT%) 58.5 % 43-75 N IMMATURE GRANULOCYTE % (test 1.3 % 0.0-2.0 N code = IG%) LYMPHOCYTE % (test code = LY%) 15.7 % 14-44 N MONOCYTE % (test code = MO%) 12.8 % 4-13 N EOSINOPHIL % (test code = EO%) 11.1 % 0-6 H BASOPHIL % (test code = BA%) 0.6 % 0-2 N NUCLEATED RBC % (test code = 0.0 % 0-1.0 N NRBC%) NEUTROPHIL # (test code = NT#) 4.52 K/mm3 2.0-7.6 N IMMATURE GRANULOCYTE # (test 0.10 x10 3/uL 0-0.03 H code = IG#) LYMPHOCYTE # (test code = LY#) 1.21 K/mm3 1.0-3.8 N MONOCYTE # (test code = MO#) 0.99 K/mm3 0.1-0.8 H EOSINOPHIL # (test code = EO#) 0.86 K/mm3 0.0-0.2 H BASOPHIL # (test code = BA#) 0.05 K/mm3 0.0-0.2 N NUCLEATED RBC # (test code = 0.00 K/mm3 0.0-0.1 N NRBC#) WBC [id number] 05:18:00 Test Item Value Reference Range Interpretation Comments RBC MORPHOLOGY REQUIRED (test code = RBCM) TOTAL CELLS COUNTED (test code = TCC) #CELLS SEGMENTED NEUTROPHILS (test code = % 36.2-73.8 SEG) LYMPHOCYTE (test code = LYMPH) % 12.9-45.1 MONOCYTE (test code = MON) % 0-11 PLATELET ESTIMATE (test code = ADEQUATE PLTEST) PLATELET MORPHOLOGY (test code = NORMAL PLTMORPH) - XR CHEST [id number] 07:05:00 Patient Name: MOISÉS CANNON Unit No: [id number] EXAMS: CPT CODE: [id number] XR CHEST 1V 91140 Single View Chest. Location: Clinical Indication: 63-year-old with chest tube and [...] Technologist: Jericho Bates, RT(R) Transcrpt Date/Tm/Trnsp: 12/16/2018 (07) [email or web address] Orig Print D/T: S: 12/16/2018 (0708) [facility] NAME: MOISÉS CANNON [id number] PHYS: [place] [address] : 1955 AGE: 63 SEX: F LOC: Z.SI04 A PHONE #: [phone] EXAM DATE: 12/16/2018 STATUS: ADM IN FAX #: [phone] RADIOLOGY NO: PAGE 1 Signed ReportBASIC METABOLIC [id number] 06:21:00 Test Item Value Reference Range Interpretation Comments SODIUM (test code = 131 MMOL/L 137-145 L NA) POTASSIUM (test code = 4.1 MMOL/L 3.5-5.1 N K) CHLORIDE (test code = 98 MMOL/L 98-107 N CL) CARBON DIOXIDE (test 29 MMOL/L 22-30 N code = CO2) GLUCOSE (test code = 101 MG/DL 74-106 N GLU) BLOOD UREA NITROGEN 6 MG/DL 7-17 L (test code = BUN) GLOMERULAR FILTRATION > 60 Report ing units: RATE (test code = GFR) ml/mi n/1.73 m2 (Modified MDRD Formula)Referen ce Range: > or = 6 0 ml/min/1.73 m2 CREATININE (test code 0.50 MG/DL 0.52-1.04 L = CREAT) CALCIUM (test code = 9.0 MG/DL 8.4-10.2 N CA) [id number] 06:21:00 Test Item Value Reference Range Interpretation Comments MAGNESIUM (test code = MAG) 2.0 MG/DL 1.6-2.3 N CBC W/AUTO [id number] 05:52:00 Test Item Value Reference Range Interpretation Comments WHITE BLOOD CELL (test code = 7.9 K/MM3 3.8-9.8 N WBC) RED BLOOD CELL (test code = 3.64 M/MM3 3.58-4.97 N RBC) HEMOGLOBIN (test code = HGB) 10.2 G/DL 11.2-14.9 L HEMATOCRIT (test code = HCT) 32.9 % 33.2-43.5 L MEAN CELL VOLUME (test code = 90 fL 80.7-99.1 N MCV) MEAN CELL HGB (test code = MCH) 28.0 pg 27.0-34.1 N MEAN CELL HGB CONCETRATION 31.0 % 32.2-35.7 L (test code = MCHC) RED CELL DISTRIBUTION WIDTH 14.8 % 12.1-15.2 N (test code = RDW) PLATELET COUNT (test code = 320 K/MM3 129-368 N PLT) MEAN PLATELET VOLUME (test code 9.4 fl 7.4-10.4 N = MPV) NEUTROPHIL % (test code = NT%) 66.6 % 43-75 N IMMATURE GRANULOCYTE % (test 1.8 % 0.0-2.0 N code = IG%) LYMPHOCYTE % (test code = LY%) 14.4 % 14-44 N MONOCYTE % (test code = MO%) 9.3 % 4-13 N EOSINOPHIL % (test code = EO%) 7.3 % 0-6 H BASOPHIL % (test code = BA%) 0.6 % 0-2 N NUCLEATED RBC % (test code = 0.0 % 0-1.0 N NRBC%) NEUTROPHIL # (test code = NT#) 5.23 K/mm3 2.0-7.6 N IMMATURE GRANULOCYTE # (test 0.14 x10 3/uL 0-0.03 H code = IG#) LYMPHOCYTE # (test code = LY#) 1.13 K/mm3 1.0-3.8 N MONOCYTE # (test code = MO#) 0.73 K/mm3 0.1-0.8 N EOSINOPHIL # (test code = EO#) 0.57 K/mm3 0.0-0.2 H BASOPHIL # (test code = BA#) 0.05 K/mm3 0.0-0.2 N NUCLEATED RBC # (test code = 0.00 K/mm3 0.0-0.1 N NRBC#) - XR CHEST [id number] 05:42:00 Patient Name: MOISÉS CANNON Unit No: [id number] EXAMS: CPT CODE: [id number] XR CHEST 1V 61529 Location: U19. CHEST, FRONTAL VIEW HISTORY: SUBQ EMPHYSEMA, CHEST TUBE IN PLACE FINDINGS: Since 12/14/18, the extensive subcutaneous emphysema is unchanged. Partial resection of the right lung with the right chest tube remaining in place. No obvious pneumothorax, somewhat limited due to the extensive subcutaneous air. The heart size is normal. Aorta is partially calcified. Right IJ within the SVC. The bones are intact. IMPRESSION: Stable operative changes in the right lung with chest tube. Extensive subcutaneous emphysema without any obvious pneumothorax. at 0542 Reported and signed by: Obed Villasenor MD CC: Chito Hanson MD Technologist: Jericho Bates, RT(R) Transcrpt Date/Tm/Trnsp: 12/15/2018 (0542) [id number] Orig Print D/T: S: 12/15/2018 (0545) CHERYL Francois NAME: MOISÉS CANNON [id number] PHYS: [place] [address] : 1955 AGE: 63 SEX: F LOC: Z.SI04 A PHONE #: [phone] EXAM DATE: 12/15/2018 STATUS: ADM IN FAX #: [phone] RADIOLOGY NO: PAGE 1 Signed Report- XR CHEST 1V 2018-12-14 08:24:00 Patient Name: MOISÉS CANNON Unit No: [id number] EXAMS: CPT CODE: [id number] XR CHEST 1V 32630 REASON FOR EXAM: Chest tube, thoracotomy.. COMPARISON: December 13, 2018. Chest, portable single frontal view. Fara graph the right- sided chest tubein stable position. No detectable pneumothorax. [...] Technologist: Maryjane Giles, RT(R) Transcrpt Date/Tm/Trnsp: 12/14/2018 (823) JuanRCM Orig Print D/T: S: 12/14/2018 (08) CHERYL Francois NAME: MOISÉS CANNON [id number] PHYS: [place] [address] : 1955 AGE: 63 SEX: F LOC: Z.SI04 A PHONE #: [phone] EXAM DATE: 12/14/2018 STATUS: ADM IN FAX #: [phone] NO: PAGE 1 Signed ReportBASIC METABOLIC PANEL 2018-12-14 07:39:00 Test Item Value Reference Range Interpretation Comments SODIUM (test code = 131 MMOL/L 137-145 L NA) POTASSIUM (test code = 3.8 MMOL/L 3.5-5.1 N K) CHLORIDE (test code = 98 MMOL/L 98-107 N CL) CARBON DIOXIDE (test 27 MMOL/L 22-30 N code = CO2) GLUCOSE (test code = 90 MG/DL 74-106 N GLU) BLOOD UREA NITROGEN 7 MG/DL 7-17 N (test code = BUN) GLOMERULAR FILTRATION > 60 Report ing units: RATE (test code = GFR) ml/mi n/1.73 m2 (Modified MDRD Formula)Referen ce Range: > or = 6 0 ml/min/1.73 m2 CREATININE (test code 0.50 MG/DL 0.52-1.04 L = CREAT) CALCIUM (test code = 8.6 MG/DL 8.4-10.2 N CA) [id number] 07:39:00 Test Item Value Reference Range Interpretation Comments MAGNESIUM (test code = MAG) 2.0 MG/DL 1.6-2.3 N CBC W/AUTO [id number] 07:24:00 Test Item Value Reference Range Interpretation Comments WHITE BLOOD CELL (test code = 9.8 K/MM3 3.8-9.8 N WBC) RED BLOOD CELL (test code = 3.72 M/MM3 3.58-4.97 N RBC) HEMOGLOBIN (test code = HGB) 10.6 G/DL 11.2-14.9 L HEMATOCRIT (test code = HCT) 33.2 % 33.2-43.5 N MEAN CELL VOLUME (test code = 89 fL 80.7-99.1 N MCV) MEAN CELL HGB (test code = MCH) 28.5 pg 27.0-34.1 N MEAN CELL HGB CONCETRATION 31.9 % 32.2-35.7 L (test code = MCHC) RED CELL DISTRIBUTION WIDTH 14.9 % 12.1-15.2 N (test code = RDW) PLATELET COUNT (test code = 323 K/MM3 129-368 N PLT) MEAN PLATELET VOLUME (test code 9.3 fl 7.4-10.4 N = MPV) NEUTROPHIL % (test code = NT%) 71.2 % 43-75 N IMMATURE GRANULOCYTE % (test 1.4 % 0.0-2.0 N code = IG%) LYMPHOCYTE % (test code = LY%) 14.8 % 14-44 N MONOCYTE % (test code = MO%) 7.7 % 4-13 N EOSINOPHIL % (test code = EO%) 4.6 % 0-6 N BASOPHIL % (test code = BA%) 0.3 % 0-2 N NUCLEATED RBC % (test code = 0.0 % 0-1.0 N NRBC%) NEUTROPHIL # (test code = NT#) 6.99 K/mm3 2.0-7.6 N IMMATURE GRANULOCYTE # (test 0.14 x10 3/uL 0-0.03 H code = IG#) LYMPHOCYTE # (test code = LY#) 1.45 K/mm3 1.0-3.8 N MONOCYTE # (test code = MO#) 0.76 K/mm3 0.1-0.8 N EOSINOPHIL # (test code = EO#) 0.45 K/mm3 0.0-0.2 H BASOPHIL # (test code = BA#) 0.03 K/mm3 0.0-0.2 N NUCLEATED RBC # (test code = 0.00 K/mm3 0.0-0.1 N NRBC#) [id number] 11:49:00 Test Item Value Reference Range Interpretation Comments POTASSIUM (test code = K) 3.7 MMOL/L 3.5-5.1 N - XR CHEST [id number] 07:42:00 Patient Name: MOISÉS CANNON Unit No: [id number] EXAMS: CPT CODE: [id number] XR CHEST 1V 74597 EXAMINATION: - XR CHEST 1V. LOCATION: B2. [...] Wagoner MD CC: Chito Hanson MD Technologist: Lauren Giles, RT(R) Transcrpt Date/Tm/Trnsp: 12/13/2018 (0742) [email or web address] Orig Print D/T: S: 12/13/2018 (0745) [facility] NAME: MOISÉS CANNON [address] PHYS: [place] [address] : 1955 AGE: 63 SEX: F LOC: Z.SI04 A PHONE #: [phone] EXAM DATE: 12/13/2018 STATUS: ADM IN FAX #: [phone] RADIOLOGY NO: PAGE 1 Signed ReportTB TEST [id number] 07:32:00 Test Item Value Reference Range Interpretation Comments TB TEST IGRA (test code = TBTEST) Negative Negative BASIC METABOLIC [id number] 05:53:00 Test Item Value Reference Range Interpretation Comments SODIUM (test code = 134 MMOL/L 137-145 L NA) POTASSIUM (test code = 3.4 MMOL/L 3.5-5.1 L K) CHLORIDE (test code = 99 MMOL/L 98-107 N CL) CARBON DIOXIDE (test 28 MMOL/L 22-30 N code = CO2) GLUCOSE (test code = 99 MG/DL 74-106 N GLU) BLOOD UREA NITROGEN 6 MG/DL 7-17 L (test code = BUN) GLOMERULAR FILTRATION > 60 Report ing units: RATE (test code = GFR) ml/mi n/1.73 m2 (Modified MDRD Formula)Referen ce Range: > or = 6 0 ml/min/1.73 m2 CREATININE (test code 0.50 MG/DL 0.52-1.04 L = CREAT) CALCIUM (test code = 8.7 MG/DL 8.4-10.2 N CA) [id number] 05:53:00 Test Item Value Reference Range Interpretation Comments MAGNESIUM (test code = MAG) 1.8 MG/DL 1.6-2.3 N CBC W/AUTO [id number] 05:35:00 Test Item Value Reference Range Interpretation Comments WHITE BLOOD CELL (test code = 9.2 K/MM3 3.8-9.8 N WBC) RED BLOOD CELL (test code = 3.69 M/MM3 3.58-4.97 N RBC) HEMOGLOBIN (test code = HGB) 10.4 G/DL 11.2-14.9 L HEMATOCRIT (test code = HCT) 33.1 % 33.2-43.5 L MEAN CELL VOLUME (test code = 90 fL 80.7-99.1 N MCV) MEAN CELL HGB (test code = MCH) 28.2 pg 27.0-34.1 N MEAN CELL HGB CONCETRATION 31.4 % 32.2-35.7 L (test code = MCHC) RED CELL DISTRIBUTION WIDTH 15.0 % 12.1-15.2 N (test code = RDW) PLATELET COUNT (test code = 281 K/MM3 129-368 N PLT) MEAN PLATELET VOLUME (test code 9.7 fl 7.4-10.4 N = MPV) NEUTROPHIL % (test code = NT%) 71.0 % 43-75 N IMMATURE GRANULOCYTE % (test 1.5 % 0.0-2.0 N code = IG%) LYMPHOCYTE % (test code = LY%) 16.0 % 14-44 N MONOCYTE % (test code = MO%) 7.7 % 4-13 N EOSINOPHIL % (test code = EO%) 3.5 % 0-6 N BASOPHIL % (test code = BA%) 0.3 % 0-2 N NUCLEATED RBC % (test code = 0.0 % 0-1.0 N NRBC%) NEUTROPHIL # (test code = NT#) 6.52 K/mm3 2.0-7.6 N IMMATURE GRANULOCYTE # (test 0.14 x10 3/uL 0-0.03 H code = IG#) LYMPHOCYTE # (test code = LY#) 1.47 K/mm3 1.0-3.8 N MONOCYTE # (test code = MO#) 0.71 K/mm3 0.1-0.8 N EOSINOPHIL # (test code = EO#) 0.32 K/mm3 0.0-0.2 H BASOPHIL # (test code = BA#) 0.03 K/mm3 0.0-0.2 N NUCLEATED RBC # (test code = 0.00 K/mm3 0.0-0.1 N NRBC#) - XR CHEST [id number] 08:38:00 Patient Name: MOISÉS CANNON Unit No: [id number] EXAMS: CPT CODE: [id number] XR CHEST 1V 43271 REASON FOR EXAM: Lung tumor resection. COMPARISON: December 11, 2018. Chest, portable single frontal view. The right-sided chest tube is in good position, stable. No obvious pneumothorax. Right jugular line intact as well in the superior vena cava. Similar, extensive subcutaneous emphysema limits the study. The lungs are fairly well-inflated and clear. Postop findings in the right lung. H eart size is normal. No effusion or pneumothorax can be seen. Osseous structures appear to be intact. IMPRESSION: No identifiable pneumothorax. Slightly limited study. Right chest tube, stable. Similar appearance to subcutaneous emphysema. Location: U19 at 0838 Reported and signed by:Chris Ortiz MD CC: Chito Hanson MD Technologist: Maryjane Giles RT(R) Transcrpt Date/Tm/Trnsp: 12/12/2018 (0838) Ayleen Orig Print D/T: S: 12/12/2018 (0841) [facility] NAME: MOISÉS CANNON [id number] [address] PHYS: [place] [address] : 1955 AGE: 63 SEX: F LOC: Z.SI04 A PHONE #: [phone] EXAM DATE: 12/12/2018 STATUS: ADM IN FAX #: [phone] RADIOLOGY NO: PAGE 1 Signed ReportAB COCCIDIOIDES 2018-12-12 07:36:00 Test Item Value Reference Range Interpretation Comments AB COCCIDIOIDES (test code = COCCIAB) <0.150 < 1:2 BASIC METABOLIC [id number] 05:56:00 Test Item Value Reference Range Interpretation Comments SODIUM (test code = 134 MMOL/L 137-145 L NA) POTASSIUM (test code = 3.5 MMOL/L 3.5-5.1 N K) CHLORIDE (test code = 99 MMOL/L 98-107 N CL) CARBON DIOXIDE (test 31 MMOL/L 22-30 H code = CO2) GLUCOSE (test code = 99 MG/DL 74-106 N GLU) BLOOD UREA NITROGEN 8 MG/DL 7-17 N (test code = BUN) GLOMERULAR FILTRATION > 60 Report ing units: RATE (test code = GFR) ml/mi n/1.73 m2 (Modified MDRD Formula)Referen ce Range: > or = 6 0 ml/min/1.73 m2 CREATININE (test code 0.50 MG/DL 0.52-1.04 L = CREAT) CALCIUM (test code = 8.7 MG/DL 8.4-10.2 N CA) [id number] 05:56:00 Test Item Value Reference Range Interpretation Comments MAGNESIUM (test code = MAG) 1.9 MG/DL 1.6-2.3 N CBC W/AUTO [id number] 05:42:00 Test Item Value Reference Range Interpretation Comments WHITE BLOOD CELL (test code = 7.7 K/MM3 3.8-9.8 N WBC) RED BLOOD CELL (test code = 3.72 M/MM3 3.58-4.97 N RBC) HEMOGLOBIN (test code = HGB) 10.5 G/DL 11.2-14.9 L HEMATOCRIT (test code = HCT) 33.1 % 33.2-43.5 L MEAN CELL VOLUME (test code = 89 fL 80.7-99.1 N MCV) MEAN CELL HGB (test code = MCH) 28.2 pg 27.0-34.1 N MEAN CELL HGB CONCETRATION 31.7 % 32.2-35.7 L (test code = MCHC) RED CELL DISTRIBUTION WIDTH 14.8 % 12.1-15.2 N (test code = RDW) PLATELET COUNT (test code = 305 K/MM3 129-368 N PLT) MEAN PLATELET VOLUME (test code 9.8 fl 7.4-10.4 N = MPV) NEUTROPHIL % (test code = NT%) 71.5 % 43-75 N IMMATURE GRANULOCYTE % (test 1.0 % 0.0-2.0 N code = IG%) LYMPHOCYTE % (test code = LY%) 16.6 % 14-44 N MONOCYTE % (test code = MO%) 8.0 % 4-13 N EOSINOPHIL % (test code = EO%) 2.6 % 0-6 N BASOPHIL % (test code = BA%) 0.3 % 0-2 N NUCLEATED RBC % (test code = 0.0 % 0-1.0 N NRBC%) NEUTROPHIL # (test code = NT#) 5.51 K/mm3 2.0-7.6 N IMMATURE GRANULOCYTE # (test 0.08 x10 3/uL 0-0.03 H code = IG#) LYMPHOCYTE # (test code = LY#) 1.28 K/mm3 1.0-3.8 N MONOCYTE # (test code = MO#) 0.62 K/mm3 0.1-0.8 N EOSINOPHIL # (test code = EO#) 0.20 K/mm3 0.0-0.2 N BASOPHIL # (test code = BA#) 0.02 K/mm3 0.0-0.2 N NUCLEATED RBC # (test code = 0.00 K/mm3 0.0-0.1 N NRBC#) AG HISTOPLASMA [id number] 07:26:00 Test Item Value Reference Range Interpretation Comments AG HISTOPLASMA UA (test code = <0.5 EIA unit <0.5 ng/mL HISUAAG) - XR CHEST [id number] 06:56:00 Patient Name: MOISÉS CANNON Unit No: [id number] EXAMS: CPT CODE: [id number] XR CHEST 1V 74662 Location: U19. CHEST, FRONTAL VIEW HISTORY: S/P [...] OrigPrint D/T: S: 12/11/2018 (0700) [facility] NAME: MOISÉS CANNON [address] [address] PHYS: [place] [address] : 1955 AGE: 63 SEX: F LOC: Z.SI04 A PHONE #: [phone] EXAM DATE: 12/11/2018 STATUS: ADM IN FAX #: [phone] RADIOLOGY NO: PAGE 1 Signed ReportBASIC METABOLIC PANEL 2018-12-11 05:46:00 Test Item Value Reference Range Interpretation Comments SODIUM (test code = 134 MMOL/L 137-145 L NA) POTASSIUM (test code = 3.3 MMOL/L 3.5-5.1 L K) CHLORIDE (test code = 97 MMOL/L 98-107 L CL) CARBON DIOXIDE (test 30 MMOL/L 22-30 N code = CO2) ANION GAP (test code = 10 MMOL/L 14-24 L GAP) GLUCOSE (test code = 117 MG/DL 74-106 H GLU) BLOOD UREA NITROGEN 7 MG/DL 7-17 N (test code = BUN) GLOMERULAR FILTRATION > 60 Report ing units: RATE (test code = GFR) ml/mi n/1.73 m2 (Modified MDRD Formula)Referen ce Range: > or = 6 0 ml/min/1.73 m2 CREATININE (test code 0.50 MG/DL 0.52-1.04 L = CREAT) CALCIUM (test code = 8.7 MG/DL 8.4-10.2 N CA) [id number] 05:46:00 Test Item Value Reference Range Interpretation Comments MAGNESIUM (test code = MAG) 1.9 MG/DL 1.6-2.3 N CBC W/AUTO [id number] 05:28:00 Test Item Value Reference Range Interpretation Comments WHITE BLOOD CELL (test code = 7.8 K/MM3 3.8-9.8 N WBC) RED BLOOD CELL (test code = 3.79 M/MM3 3.58-4.97 N RBC) HEMOGLOBIN (test code = HGB) 10.8 G/DL 11.2-14.9 L HEMATOCRIT (test code = HCT) 34.0 % 33.2-43.5 N MEAN CELL VOLUME (test code = 90 fL 80.7-99.1 N MCV) MEAN CELL HGB (test code = MCH) 28.5 pg 27.0-34.1 N MEAN CELL HGB CONCETRATION 31.8 % 32.2-35.7 L (test code = MCHC) RED CELL DISTRIBUTION WIDTH 14.6 % 12.1-15.2 N (test code = RDW) PLATELET COUNT (test code = 286 K/MM3 129-368 N PLT) MEAN PLATELET VOLUME (test code 9.8 fl 7.4-10.4 N = MPV) NEUTROPHIL % (test code = NT%) 71.9 % 43-75 N IMMATURE GRANULOCYTE % (test 1.0 % 0.0-2.0 N code = IG%) LYMPHOCYTE % (test code = LY%) 15.4 % 14-44 N MONOCYTE % (test code = MO%) 8.8 % 4-13 N EOSINOPHIL % (test code = EO%) 2.4 % 0-6 N BASOPHIL % (test code = BA%) 0.5 % 0-2 N NUCLEATED RBC % (test code = 0.0 % 0-1.0 N NRBC%) NEUTROPHIL # (test code = NT#) 5.60 K/mm3 2.0-7.6 N IMMATURE GRANULOCYTE # (test 0.08 x10 3/uL 0-0.03 H code = IG#) LYMPHOCYTE # (test code = LY#) 1.20 K/mm3 1.0-3.8 N MONOCYTE # (test code = MO#) 0.69 K/mm3 0.1-0.8 N EOSINOPHIL # (test code = EO#) 0.19 K/mm3 0.0-0.2 N BASOPHIL # (test code = BA#) 0.04 K/mm3 0.0-0.2 N NUCLEATED RBC # (test code = 0.00 K/mm3 0.0-0.1 N NRBC#) BASIC METABOLIC [id number] 05:54:00 Test Item Value Reference Range Interpretation Comments SODIUM (test code = 131 MMOL/L 137-145 L NA) POTASSIUM (test code = 3.8 MMOL/L 3.5-5.1 N K) CHLORIDE (test code = 92 MMOL/L 98-107 L CL) CARBON DIOXIDE (test 28 MMOL/L 22-30 N code = CO2) ANION GAP (test code = 15 MMOL/L 14-24 N GAP) GLUCOSE (test code = 98 MG/DL 74-106 N GLU) BLOOD UREA NITROGEN 9 MG/DL 7-17 N (test code = BUN) GLOMERULAR FILTRATION > 60 Report ing units: RATE (test code = GFR) ml/mi n/1.73 m2 (Modified MDRD Formula)Referen ce Range: > or = 6 0 ml/min/1.73 m2 CREATININE (test code 0.40 MG/DL 0.52-1.04 L = CREAT) CALCIUM (test code = 8.7 MG/DL 8.4-10.2 N CA) CBC W/AUTO [id number] 05:35:00 Test Item Value Reference Range Interpretation Comments WHITE BLOOD CELL (test code = 7.3 K/MM3 3.8-9.8 N WBC) RED BLOOD CELL (test code = 3.99 M/MM3 3.58-4.97 N RBC) HEMOGLOBIN (test code = HGB) 11.4 G/DL 11.2-14.9 N HEMATOCRIT (test code = HCT) 35.9 % 33.2-43.5 N MEAN CELL VOLUME (test code = 90 fL 80.7-99.1 N MCV) MEAN CELL HGB (test code = MCH) 28.6 pg 27.0-34.1 N MEAN CELL HGB CONCETRATION 31.8 % 32.2-35.7 L (test code = MCHC) RED CELL DISTRIBUTION WIDTH 14.3 % 12.1-15.2 N (test code = RDW) PLATELET COUNT (test code = 293 K/MM3 129-368 N PLT) MEAN PLATELET VOLUME (test code 9.7 fl 7.4-10.4 N = MPV) NEUTROPHIL % (test code = NT%) 71.2 % 43-75 N IMMATURE GRANULOCYTE % (test 1.1 % 0.0-2.0 N code = IG%) LYMPHOCYTE % (test code = LY%) 15.3 % 14-44 N MONOCYTE % (test code = MO%) 9.8 % 4-13 N EOSINOPHIL % (test code = EO%) 2.3 % 0-6 N BASOPHIL % (test code = BA%) 0.3 % 0-2 N NUCLEATED RBC % (test code = 0.0 % 0-1.0 N NRBC%) NEUTROPHIL # (test code = NT#) 5.21 K/mm3 2.0-7.6 N IMMATURE GRANULOCYTE # (test 0.08 x10 3/uL 0-0.03 H code = IG#) LYMPHOCYTE # (test code = LY#) 1.12 K/mm3 1.0-3.8 N MONOCYTE # (test code = MO#) 0.72 K/mm3 0.1-0.8 N EOSINOPHIL # (test code = EO#) 0.17 K/mm3 0.0-0.2 N BASOPHIL # (test code = BA#) 0.02 K/mm3 0.0-0.2 N NUCLEATED RBC # (test code = 0.00 K/mm3 0.0-0.1 N NRBC#) BASIC METABOLIC [id number] 06:18:00 Test Item Value Reference Range Interpretation Comments SODIUM (test code = 129 MMOL/L 137-145 L NA) POTASSIUM (test code = 4.2 MMOL/L 3.5-5.1 N K) CHLORIDE (test code = 97 MMOL/L 98-107 L CL) CARBON DIOXIDE (test 27 MMOL/L 22-30 N code = CO2) GLUCOSE (test code = 92 MG/DL 74-106 N GLU) BLOOD UREA NITROGEN 17 MG/DL 7-17 N (test code = BUN) GLOMERULAR FILTRATION > 60 Report ing units: RATE (test code = GFR) ml/mi n/1.73 m2 (Modified MDRD Formula)Referen ce Range: > or = 6 0 ml/min/1.73 m2 CREATININE (test code 0.50 MG/DL 0.52-1.04 L = CREAT) CALCIUM (test code = 8.5 MG/DL 8.4-10.2 N CA) CBC W/AUTO [id number] 05:48:00 Test Item Value Reference Range Interpretation Comments WHITE BLOOD CELL (test code = 7.9 K/MM3 3.8-9.8 N WBC) RED BLOOD CELL (test code = 3.89 M/MM3 3.58-4.97 N RBC) HEMOGLOBIN (test code = HGB) 11.2 G/DL 11.2-14.9 N HEMATOCRIT (test code = HCT) 35.5 % 33.2-43.5 N MEAN CELL VOLUME (test code = 91 fL 80.7-99.1 N MCV) MEAN CELL HGB (test code = MCH) 28.8 pg 27.0-34.1 N MEAN CELL HGB CONCETRATION 31.5 % 32.2-35.7 L (test code = MCHC) RED CELL DISTRIBUTION WIDTH 14.3 % 12.1-15.2 N (test code = RDW) PLATELET COUNT (test code = 274 K/MM3 129-368 N PLT) MEAN PLATELET VOLUME (test code 9.4 fl 7.4-10.4 N = MPV) NEUTROPHIL % (test code = NT%) 74.1 % 43-75 N IMMATURE GRANULOCYTE % (test 0.9 % 0.0-2.0 N code = IG%) LYMPHOCYTE % (test code = LY%) 14.1 % 14-44 N MONOCYTE % (test code = MO%) 8.6 % 4-13 N EOSINOPHIL % (test code = EO%) 2.0 % 0-6 N BASOPHIL % (test code = BA%) 0.3 % 0-2 N NUCLEATED RBC % (test code = 0.0 % 0-1.0 N NRBC%) NEUTROPHIL # (test code = NT#) 5.86 K/mm3 2.0-7.6 N IMMATURE GRANULOCYTE # (test 0.07 x10 3/uL 0-0.03 H code = IG#) LYMPHOCYTE # (test code = LY#) 1.11 K/mm3 1.0-3.8 N MONOCYTE # (test code = MO#) 0.68 K/mm3 0.1-0.8 N EOSINOPHIL # (test code = EO#) 0.16 K/mm3 0.0-0.2 N BASOPHIL # (test code = BA#) 0.02 K/mm3 0.0-0.2 N NUCLEATED RBC # (test code = 0.00 K/mm3 0.0-0.1 N NRBC#) - XR CHEST [id number] 11:16:00 Patient Name: MOISÉS CANNON Unit No: [id number] EXAMS: CPT CODE: [id number] XR CHEST 1V [id number] Site ID: [id number] HISTORY: Subcutaneous emphysema, right chest tube p lacement COMPARISON: 4 hours prior FINDINGS: Extensive diffuse [...] MD Technologist: Maksim Gonzales RT(R) Transcrpt Date/Tm/Trnsp: 12/08/2018 (1116) [email or web address] Orig Print D/T: S: 12/08/2018 (1119) [facility] NAME: MOISÉS CANNON [id number] [address] PHYS: [place] [address] : 1955 AGE: 63 SEX: F LOC: [id number] A PHONE #: [phone] EXAM DATE: 12/08/2018 STATUS: ADM IN FAX #: [phone] NO: PAGE 1 Signed [id number] 08:28:00 Test Item Value Reference Range Interpretation Comments MAGNESIUM (test code = MAG) 2.0 MG/DL 1.6-2.3 N - XR CHEST [id number] 07:15:00 Patient Name: MOISÉS CANNON Unit No: [id number] EXAMS: CPT CODE: [id number] XR CHEST 1V [id number] Location of dictation: B2 Portable chest one [...] are unremarkable. IMPRESSION: Suspect mild interstitial edema. at 0715 Reported and signed by: Neelima Ghosh M.D. CC: Chito Hanson MD; Jose Luis De La Vega MD Technologist: Renee, (RT) (R) Transcrpt Date/Tm/Trnsp: 12/08/2018 (0915) [email or web address] Orig Print D/T: S: 12/08/2018 (2718) CHERYL Francois NAME: MOISÉS CANNON [id number] [address] PHYS: [place] [address] : 1955 AGE: 63 SEX: F LOC: Z.SI04 A PHONE #: [phone] EXAM DATE: 12/08/2018 STATUS: ADM IN FAX #: [phone] RADIOLOGY NO: PAGE 1 Signed Report- XR CHEST [id number] 07:08:00 Patient Name: MOISÉS CANNON Unit No: [id number] EXAMS: CPT CODE: [id number] XR CHEST 1V 88686 Location of dictation: B2 Portable chest one [...] Jericho Bates, RT(R) Transcrpt Date/Tm/Trnsp: 12/08/2018 (0708) [email or web address] Orig Print D/T: S: 12/08/2018 (0711) [facility] NAME: MOISÉS CANNON [id number] [address] PHYS: DONY.Giovanna - ElviemalikO[place] [address] : 1955 AGE: 63 SEX: F LOC: Z.SI04 A PHONE #: [phone] EXAM DATE: 12/08/2018 STATUS: ADM IN FAX #: [phone] RADIOLOGY NO: PAGE 1 Signed ReportPOC ARTERIAL BLOOD GAS 2018-12-08 07:01:00 Test Item Value Reference Range Interpretation Comments POC ARTERIAL BLOOD GAS PH 7.382 7.35-7.45 N (test code = POCPHA) POC ARTERIAL BLOOD GAS PCO2 51.4 mmHg 35.0-45.0 HH (test code = AJVZII1I) POC ARTERIAL BLOOD GAS PO2 82 75.0-100.0 N (test code = ODSJC4Q) POC HCO3 ARTERIAL (test code 30.5 MMOL/L 20.0-26.0 HH = SLRTTB6P) POC BASE EXCESS (test code = 5.0 MMOL/L -3.0-3.0 H POCBEA) POC O2 SATURATION (test code 96 % 92.0-98.5 N = POCO2S) FIO2 (test code = FIO2A) 40 % 21-100 N ABG DELIVERY (test code = N/C MARCUS) ABG SITE (test code = SITEA) R Brachial ALLENS TEST (test code = N/A CHECK Ntlucy/RBJob~ ALLENS) PROTHROMBIN [id number] 06:11:00 Test Item Value Reference Range Interpretation Comments PROTHROMBIN TIME 10.3 SECONDS 9.6-11.6 N PATIENT (test code = PTP) INTERNATIONAL NORMAL 1.0 0.8-1.1 N The INR is to be RATIO (test code = used only for INR) monitoring oral anticoagulantth erap y. INDICATION I NR VALUE ---- ---- ---- -------1. Prophylaxis, de ep venous thrombos is, including hig h risk surgery. 2.0 - 3.0 2. Prophylaxis, de ep venous thrombos is, hip surgery, treatment for d eep venous thrombosis or pulmonary prevention of systemic emboli sm in patients wit h valvular heart disease, atrial fibrillation, tissue heart va lve, or acute myocar dial infarction. 2.0 - 3 .0 3. Mechanical prosthesis hear t valves, recurrent syste meredith embolism. 3.0 - 4.5 PTT [id number] 06:11:00 Test Item Value Reference Range Interpretation Comments PTT ACTIVATED (test code = APTT) 23.2 SECONDS 22.0-33.0 N BASIC METABOLIC [id number] 06:09:00 Test Item Value Reference Range Interpretation Comments SODIUM (test code = 136 MMOL/L 137-145 L NA) POTASSIUM (test code = 3.6 MMOL/L 3.5-5.1 N K) CHLORIDE (test code = 95 MMOL/L 98-107 L CL) CARBON DIOXIDE (test 30 MMOL/L 22-30 N code = CO2) ANION GAP (test code = 15 MMOL/L 14-24 N GAP) GLUCOSE (test code = 92 MG/DL 74-106 N GLU) BLOOD UREA NITROGEN 16 MG/DL 7-17 N (test code = BUN) GLOMERULAR FILTRATION > 60 Report ing units: RATE (test code = GFR) ml/mi n/1.73 m2 (Modified MDRD Formula)Referen ce Range: > or = 6 0 ml/min/1.73 m2 CREATININE (test code 0.60 MG/DL 0.52-1.04 N = CREAT) CALCIUM (test code = 9.0 MG/DL 8.4-10.2 N CA) CBC W/AUTO [id number] 05:57:00 Test Item Value Reference Range Interpretation Comments WHITE BLOOD CELL (test code = 10.1 K/MM3 3.8-9.8 H WBC) RED BLOOD CELL (test code = 4.38 M/MM3 3.58-4.97 N RBC) HEMOGLOBIN (test code = HGB) 12.5 G/DL 11.2-14.9 N HEMATOCRIT (test code = HCT) 39.4 % 33.2-43.5 MEAN CELL VOLUME (test code = 90 fL 80.7-99.1 N MCV) MEAN CELL HGB (test code = MCH) 28.5 pg 27.0-34.1 N MEAN CELL HGB CONCETRATION 31.7 % 32.2-35.7 L (test code = MCHC) RED CELL DISTRIBUTION WIDTH 14.6 % 12.1-15.2 N (test code = RDW) PLATELET COUNT (test code = 324 K/MM3 129-368 N PLT) MEAN PLATELET VOLUME (test code 9.6 fl 7.4-10.4 N = MPV) NEUTROPHIL % (test code = NT%) 79.2 % 43-75 H IMMATURE GRANULOCYTE % (test 0.6 % 0.0-2.0 N code = IG%) LYMPHOCYTE % (test code = LY%) 9.3 % 14-44 L MONOCYTE % (test code = MO%) 8.8 % 4-13 N EOSINOPHIL % (test code = EO%) 1.8 % 0-6 N BASOPHIL % (test code = BA%) 0.3 % 0-2 N NUCLEATED RBC % (test code = 0.0 % 0-1.0 N NRBC%) NEUTROPHIL # (test code = NT#) 8.04 K/mm3 2.0-7.6 H IMMATURE GRANULOCYTE # (test 0.06 x10 3/uL 0-0.03 H code = IG#) LYMPHOCYTE # (test code = LY#) 0.94 K/mm3 1.0-3.8 L MONOCYTE # (test code = MO#) 0.89 K/mm3 0.1-0.8 H EOSINOPHIL # (test code = EO#) 0.18 K/mm3 0.0-0.2 N BASOPHIL # (test code = BA#) 0.03 K/mm3 0.0-0.2 N NUCLEATED RBC # (test code = 0.00 K/mm3 0.0-0.1 N NRBC#) BASIC METABOLIC [id number] 12:08:00 Test Item Value Reference Range Interpretation Comments SODIUM (test code = 134 MMOL/L 137-145 L NA) POTASSIUM (test code = 3.7 MMOL/L 3.5-5.1 N K) CHLORIDE (test code = 98 MMOL/L 98-107 N CL) CARBON DIOXIDE (test 30 MMOL/L 22-30 N code = CO2) GLUCOSE (test code = 93 MG/DL 74-106 N GLU) BLOOD UREA NITROGEN 9 MG/DL 7-17 N (test code = BUN) GLOMERULAR FILTRATION > 60 Report ing units: RATE (test code = GFR) ml/mi n/1.73 m2 (Modified MDRD Formula)Referen ce Range: > or = 6 0 ml/min/1.73 m2 CREATININE (test code 0.50 MG/DL 0.52-1.04 L = CREAT) CALCIUM (test code = 8.8 MG/DL 8.4-10.2 N CA) PROTHROMBIN [id number] 12:01:00 Test Item Value Reference Range Interpretation Comments PROTHROMBIN TIME 10.2 SECONDS 9.6-11.6 N PATIENT (test code = PTP) INTERNATIONAL NORMAL 1.0 0.8-1.1 N The INR is to be RATIO (test code = used only for INR) monitoring oral anticoagulantth erap y. INDICATION I NR VALUE ---- ---- ---- -------1. Prophylaxis, de ep venous thrombos is, including hig h risk surgery. 2.0 - 3.0 2. Prophylaxis, de ep venous thrombos is, hip surgery, treatment for d eep venous thrombosis or pulmonary prevention of systemic emboli sm in patients wit h valvular heart disease, atrial fibrillation, tissue heart va lve, or acute myocar dial infarction. 2.0 - 3 .0 3. Mechanical prosthesis hear t valves, recurrent syste meredith embolism. 3.0 - 4.5 PTT [id number] 12:01:00 Test Item Value Reference Range Interpretation Comments PTT ACTIVATED (test code = APTT) 24.1 SECONDS 21.0-33.0 N CBC W/AUTO [id number] 11:49:00 Test Item Value Reference Range Interpretation Comments WHITE BLOOD CELL (test code = 7.9 K/MM3 3.8-9.8 N WBC) RED BLOOD CELL (test code = 3.97 M/MM3 3.58-4.97 N RBC) HEMOGLOBIN (test code = HGB) 11.5 G/DL 11.2-14.9 N HEMATOCRIT (test code = HCT) 35.8 % 33.2-43.5 N MEAN CELL VOLUME (test code = 90 fL 80.7-99.1 N MCV) MEAN CELL HGB (test code = MCH) 29.0 pg 27.0-34.1 N MEAN CELL HGB CONCETRATION 32.1 % 32.2-35.7 L (test code = MCHC) RED CELL DISTRIBUTION WIDTH 14.7 % 12.1-15.2 N (test code = RDW) PLATELET COUNT (test code = 290 K/MM3 129-368 N PLT) MEAN PLATELET VOLUME (test code 9.5 fl 7.4-10.4 N = MPV) NEUTROPHIL % (test code = NT%) 73.6 % 43-75 N IMMATURE GRANULOCYTE % (test 0.8 % 0.0-2.0 N code = IG%) LYMPHOCYTE % (test code = LY%) 13.8 % 14-44 L MONOCYTE % (test code = MO%) 9.1 % 4-13 N EOSINOPHIL % (test code = EO%) 2.4 % 0-6 N BASOPHIL % (test code = BA%) 0.3 % 0-2 N NUCLEATED RBC % (test code = 0.0 % 0-1.0 N NRBC%) NEUTROPHIL # (test code = NT#) 5.83 K/mm3 2.0-7.6 N IMMATURE GRANULOCYTE # (test 0.06 x10 3/uL 0-0.03 H code = IG#) LYMPHOCYTE # (test code = LY#) 1.09 K/mm3 1.0-3.8 N MONOCYTE # (test code = MO#) 0.72 K/mm3 0.1-0.8 N EOSINOPHIL # (test code = EO#) 0.19 K/mm3 0.0-0.2 N BASOPHIL # (test code = BA#) 0.02 K/mm3 0.0-0.2 N NUCLEATED RBC # (test code = 0.00 K/mm3 0.0-0.1 N NRBC#) - XR CHEST [id number] 08:32:00 Patient Name: MOISÉS CANNON Unit No: [id number] EXAMS: CPT CODE: [id number] XR CHEST 1V 35437 Location of dictation: B2 Portable chest one view. HISTORY: S/P R.A. R LUNG MASS RESECTION COMMENT: Compared to one day prior. Support lines and catheters remain in good positions. Cardiac silhouette is stable. Patchy infiltrates again noted with elevation of the right diaphragm. Extensive subcutaneous air also unchanged. There has been no significant changes. IMPRESSION: No acute findings or changes in the chest. at 0832 Reported and signed by: Neelima Ghosh M.D. CC: Chito Hanson MD Technologist: RT Luc(R) Transcrpt Date/Tm/Trnsp: 12/07/2018 (0832) Marlena.PX Orig Print D/T: S: 12/07/2018 (0835) [facility] NAME: MOISÉS CANNON [id number] [address] PHYS: [place] [address] : 1955 AGE: 63 SEX: F LOC: Z.SI04 A PHONE #: [phone] EXAM DATE: 12/07/2018 STATUS: ADM IN FAX #: [phone] RADIOLOGY NO: PAGE 1 Signed Report- XR CHEST [id number] 07:52:00 Patient Name: MOISÉS CANNON Unit No: [id number] EXAMS: CPT CODE: [id number] XR CHEST 1V 84141 Location of dictation: B2 Portable chest one view. HISTORY: S/P R.A. RIGHT LUNG MASS RESECTION COMMENT:Compared to 2 days prior. The heart is [...] Hanson MD Technologist: RT Luc(R) Transcrpt Date/Tm/Trnsp: 12/06/2018 (0752) JuanPXC Orig Print D/T: S: 12/06/2018 (0755) [facility] NAME: MOISÉS CANNON [id number] [address] PHYS: [place] [address] : 1955 AGE: 63 SEX: F LOC: [id number] [place] PHONE #: [phone] EXAM DATE: 12/06/2018 STATUS: ADM IN FAX #: [phone] RADIOLOGY NO: PAGE 1 Signed ReportBASIC METABOLIC [id number] 05:28:00 Test Item Value Reference Range Interpretation Comments SODIUM (test code = 135 MMOL/L 137-145 L NA) POTASSIUM (test code = 3.8 MMOL/L 3.5-5.1 N K) CHLORIDE (test code = 98 MMOL/L 98-107 N CL) CARBON DIOXIDE (test 32 MMOL/L 22-30 H code = CO2) GLUCOSE (test code = 109 MG/DL 74-106 H GLU) BLOOD UREA NITROGEN 11 MG/DL 7-17 N (test code = BUN) GLOMERULAR FILTRATION > 60 Report ing units: RATE (test code = GFR) ml/mi n/1.73 m2 (Modified MDRD Formula)Referen ce Range: > or = 6 0 ml/min/1.73 m2 CREATININE (test code 0.60 MG/DL 0.52-1.04 N = CREAT) CALCIUM (test code = 9.1 MG/DL 8.4-10.2 N CA) [id number] 05:28:00 Test Item Value Reference Range Interpretation Comments MAGNESIUM (test code = MAG) 2.0 MG/DL 1.6-2.3 N CBC W/AUTO [id number] 05:05:00 Test Item Value Reference Range Interpretation Comments WHITE BLOOD CELL (test code = 8.7 K/MM3 3.8-9.8 N WBC) RED BLOOD CELL (test code = 4.07 M/MM3 3.58-4.97 N RBC) HEMOGLOBIN (test code = HGB) 11.6 G/DL 11.2-14.9 N HEMATOCRIT (test code = HCT) 37.0 % 33.2-43.5 N MEAN CELL VOLUME (test code = 91 fL 80.7-99.1 N MCV) MEAN CELL HGB (test code = MCH) 28.5 pg 27.0-34.1 N MEAN CELL HGB CONCETRATION 31.4 % 32.2-35.7 L (test code = MCHC) RED CELL DISTRIBUTION WIDTH 14.7 % 12.1-15.2 N (test code = RDW) PLATELET COUNT (test code = 281 K/MM3 129-368 N PLT) MEAN PLATELET VOLUME (test code 9.7 fl 7.4-10.4 N = MPV) NEUTROPHIL % (test code = NT%) 73.9 % 43-75 N IMMATURE GRANULOCYTE % (test 0.5 % 0.0-2.0 N code = IG%) LYMPHOCYTE % (test code = LY%) 14.7 % 14-44 N MONOCYTE % (test code = MO%) 8.6 % 4-13 N EOSINOPHIL % (test code = EO%) 2.1 % 0-6 N BASOPHIL % (test code = BA%) 0.2 % 0-2 N NUCLEATED RBC % (test code = 0.0 % 0-1.0 N NRBC%) NEUTROPHIL # (test code = NT#) 6.45 K/mm3 2.0-7.6 N IMMATURE GRANULOCYTE # (test 0.04 x10 3/uL 0-0.03 H code = IG#) LYMPHOCYTE # (test code = LY#) 1.28 K/mm3 1.0-3.8 N MONOCYTE # (test code = MO#) 0.75 K/mm3 0.1-0.8 N EOSINOPHIL # (test code = EO#) 0.18 K/mm3 0.0-0.2 N BASOPHIL # (test code = BA#) 0.02 K/mm3 0.0-0.2 N NUCLEATED RBC # (test code = 0.00 K/mm3 0.0-0.1 N NRBC#) [id number] 16:13:00 RUN DATE: 12/05/18 [facility] - Lab PAGE 1 RUN TIME: 1614 Specimen Inquiry RUN USER: INTERFACE PATIENT: MOISÉS CANNON LOC: LAURA U #: [id number] AGE/SX: 63/F ROOM: [facility] RE11/30/18[facility] DR: Chris Rivera MD : 55 BED: A DIS: STATUS: ADM IN TLOC: SPEC #: [id number] RECD: 11/30/18 STATUS: BERTRAND REEver[place] #: [id number] PAOLA: 11/30/[address] [facility] [address]: Chris Rivera MD ENTERED: 11/30/18 SP TYPE: LUNG OTHR DR: Chito Hanson MD ORDERED: SURG PATH LVL 5/2, FS, AFB/2, GMS/2, TOUCH PREP EA A CODES: [id number] [id number] - BRONCHUS OF RIG BIOPSY, NOS Y21381 B08077 - BRONCHUS OF RIG INFLAMMATION, N J53752 L05986 - BRONCHUS OF RIG GRANULOMATOUS I A79289 P82159 - BRONCHUS OF RIG NECROTIZING GRA I44761 L11233 - BRONCHUS OF RIG NECROSIS, NOS [id number] - BRONCHUS OF RIG DYSPLASIA, NOS Q40012 - LUNG, NOS BW7525 U03756 - BODY TISSUE, NO EMPHYSEMA, NOS CT7558 I55323 - BODY TISSUE, NO DYSPLASIA, NOS COPIES TO: Chito Hanson MD [address] [place] [address] [address] [place], [place] [address] [email or web address] [address] [facility] [place], [place] [id number] PROCEDURES: SURG PATH LVL 5 (11/30/18) FS (11/30/18) AFB (12/05/18) GMS (12/05/18) TOUCH PREP EA A (12/05/18) TISSUES: A. LUNG, NOS - RUL TISSUE B. LUNG, NOS - RT UPPER LOBE BULLAE CLINICAL HISTORY LUNG LESION CPT CODES CPT CODE(S): 83625T1 , 09518 , 30788 , 78791H3 , , , CONTINUED ON NEXT PAGE RUN DATE: 12/05/18 [facility] - Lab PAGE 2 RUN TIME: 1614 Specimen Inquiry RUN USER: INTERFACE S PEC #: [id number] PATIENT: MOISÉS CANNON #[id number] (Continued) FINAL DIAGNOSIS A. Lung, right upper lobe, wedge biopsy: CASEATING GRANULOMA. FUNGAL ORGANISMS PRESENT. NO DYSPLASIAOR MALIGNANCY IDENTIFIED. B. Lung, right upper lobe, bullae, wedge biopsy: LUNG TISSUE WITH EMPHYSEMATOUS CHANGES. NO DYSPLASIA OR MALIGNANCY IDENTIFIED. 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 /MB GROSS DESCRIPTION A. Right upper lobe. Received is a segment of lung, measuring 8 x 2.3 x 1.5 cm. There is a palpable nodule. The surface surrounding the nodule is inked green. The stapled margin, measuring 7.5 cm in length, is inked blue. Upon sectioning there is a firm molina-anand nodule, measuring 1.6 x 1.5 x 1.3 cm. The nodule is well-circumscribed. Analytics Architect sections of nodule submitted for frozen section labeled FS1/TP1 and submitted for permanent section as A1 and the remainder of the nodule submitted entirely as A2-A3 and entire lung tissue is sectioned and submitted as A4-A8. B. Right upper lobe bullae. Rec eived are three pieces of lung tissue with [...] is no evidence of dysplasia or malignancy. /paula-- Signed SIGNATURE ON FILE Chris Frank 12/05/18 1613 END OF REPORT - XR CHEST [id number] 08:14:00 Patient Name: MOISÉS CANNON Unit No: [id number] EXAMS: CPT CODE: [id number] XR CHEST 1V 78450 Location of dictation: B2 Portable chest one [...] Technologist: Maryjane Giles RT(R) Transcrpt Date/Tm/Trnsp: 12/05/2018(0814) Marlena.[facility] Orig Print D/T: S: 12/05/2018 (0817) [facility] NAME: MOISÉS CANNON [id number] [address] PHYS: [place] [address] : 1955 AGE: 63 SEX: F LOC: ZANAIS Nuñez PHONE #: [phone] EXAM DATE: 12/05/2018 STATUS: ADM IN FAX #: [phone] RADIOLOGY NO: PAGE 1 Signed ReportBASIC METABOLIC PANEL 2018-12-05 06:36:00 Test Item Value Reference Range Interpretation Comments SODIUM (test code = 134 MMOL/L 137-145 L NA) POTASSIUM (test code = 4.1 MMOL/L 3.5-5.1 N K) CHLORIDE (test code = 97 MMOL/L 98-107 L CL) CARBON DIOXIDE (test 32 MMOL/L 22-30 H code = CO2) ANION GAP (test code = 9 MMOL/L 14-24 L GAP) GLUCOSE (test code = 98 MG/DL 74-106 N GLU) BLOOD UREA NITROGEN 15 MG/DL 7-17 N (test code = BUN) GLOMERULAR FILTRATION > 60 Report ing units: RATE (test code = GFR) ml/mi n/1.73 m2 (Modified MDRD Formula)Referen ce Range: > or = 6 0 ml/min/1.73 m2 CREATININE (test code 0.50 MG/DL 0.52-1.04 L = CREAT) CALCIUM (test code = 9.0 MG/DL 8.4-10.2 N CA) [id number] 06:36:00 Test Item Value Reference Range Interpretation Comments MAGNESIUM (test code = MAG) 1.9 MG/DL 1.6-2.3 N CBC W/AUTO [id number] 06:20:00 Test Item Value Reference Range Interpretation Comments WHITE BLOOD CELL (test code = 9.3 K/MM3 3.8-9.8 N WBC) RED BLOOD CELL (test code = 4.42 M/MM3 3.58-4.97 N RBC) HEMOGLOBIN (test code = HGB) 12.6 G/DL 11.2-14.9 N HEMATOCRIT (test code = HCT) 40.3 % 33.2-43.5 N MEAN CELL VOLUME (test code = 91 fL 80.7-99.1 N MCV) MEAN CELL HGB (test code = MCH) 28.5 pg 27.0-34.1 N MEAN CELL HGB CONCETRATION 31.3 % 32.2-35.7 L (test code = MCHC) RED CELL DISTRIBUTION WIDTH 14.7 % 12.1-15.2 N (test code = RDW) PLATELET COUNT (test code = 263 K/MM3 129-368 N PLT) MEAN PLATELET VOLUME (test code 9.6 fl 7.4-10.4 N = MPV) NEUTROPHIL % (test code = NT%) 79.7 % 43-75 H IMMATURE GRANULOCYTE % (test 0.4 % 0.0-2.0 N code = IG%) LYMPHOCYTE % (test code = LY%) 12.4 % 14-44 L MONOCYTE % (test code = MO%) 6.2 % 4-13 N EOSINOPHIL % (test code = EO%) 1.2 % 0-6 N BASOPHIL % (test code = BA%) 0.1 % 0-2 N NUCLEATED RBC % (test code = 0.0 % 0-1.0 N NRBC%) NEUTROPHIL # (test code = NT#) 7.42 K/mm3 2.0-7.6 N IMMATURE GRANULOCYTE # (test 0.04 x10 3/uL 0-0.03 H code = IG#) LYMPHOCYTE # (test code = LY#) 1.16 K/mm3 1.0-3.8 N MONOCYTE # (test code = MO#) 0.58 K/mm3 0.1-0.8 N EOSINOPHIL # (test code = EO#) 0.11 K/mm3 0.0-0.2 N BASOPHIL # (test code = BA#) 0.01 K/mm3 0.0-0.2 N NUCLEATED RBC # (test code = 0.00 K/mm3 0.0-0.1 N NRBC#) BASIC METABOLIC [id number] 21:07:00 Test Item Value Reference Range Interpretation Comments SODIUM (test code = 135 MMOL/L 137-145 L NA) POTASSIUM (test code = 3.8 MMOL/L 3.5-5.1 N K) CHLORIDE (test code = 97 MMOL/L 98-107 L CL) CARBON DIOXIDE (test 31 MMOL/L 22-30 H code = CO2) ANION GAP (test code = 11 MMOL/L 14-24 L GAP) GLUCOSE (test code = 105 MG/DL 74-106 N GLU) BLOOD UREA NITROGEN 13 MG/DL 7-17 N (test code = BUN) GLOMERULAR FILTRATION > 60 Report ing units: RATE (test code = GFR) ml/mi n/1.73 m2 (Modified MDRD Formula)Referen ce Range: > or = 6 0 ml/min/1.73 m2 CREATININE (test code 0.50 MG/DL 0.52-1.04 L = CREAT) CALCIUM (test code = 9.0 MG/DL 8.4-10.2 N CA) [id number] 21:07:00 Test Item Value Reference Range Interpretation Comments MAGNESIUM (test code = MAG) 1.8 MG/DL 1.6-2.3 N ARTERIAL BLOOD [id number] 20:51:00 Test Item Value Reference Range Interpretation Comments ARTERIAL BLOOD GAS PH 7.46 mmHg 7.35-7.45 H (test code = PHA) ARTERIAL BLOOD GAS PCO2 41.7 mmHg 35.0-45.0 N (test code = PCO2A) ARTERIAL BLOOD GAS PO2 67.8 mmol/L 80.0-100.0 L (test code = PO2A) BICARBONATE TOTAL HCO3 28.7 mmol/L 20.0-26.0 H (test code = HCO3) BASE EXCESS (test code 4.3 mmol/L -3.0-3.0 H = ERICA) ABG O2 SATURATION (test 94.3 % 95.0-100.0 L All critical values code = SATA) report to and readback by Dr. Barbara Monk by RODGER at 12/04/2018 8:50: 22 PM ABG L/M (test code = 4 L/MIN L/M) ABG DELIVERY (test code N/C = MARCUS) ABG TEMPERATURE (test 37.0 C >37 code = TEMPA) ABG SITE (test code = LR SITEA) ALLENS TEST (test code Y CHECK = ALLENS) FIO2 (test code = 36 % COHBGFFIO2) GLUCOSE BEDSIDE [id number] 14:59:00 Test Item Value Reference Range Interpretation Comments GLUCOSE BEDSIDE TEST NOT PERFORMED 60-99 Previo usly reported TESTING (test MG/DL result: 55 code = GLUBED) MG/DLEdited b y: Z.LAB.TQL on 12/04/18:765310 1457: GLU B ED previously repo rted as: 55 L MG/DL GLUCOSE BEDSIDE [id number] 13:35:00 Test Item Value Reference Range Interpretation Comments GLUCOSE BEDSIDE TESTING (test code = 55 MG/DL 60-99 L GLUBED) CALCIUM [id number] 12:44:00 Test Item Value Reference Range Interpretation Comments CALCIUM IONIZED (test code = BABAK) 1.11 MMOL/L 1.12-1.30 L PROTHROMBIN [id number] 10:01:00 Test Item Value Reference Range Interpretation Comments PROTHROMBIN TIME 9.9 SECONDS 9.6-11.6 N PATIENT (test code = PTP) INTERNATIONAL NORMAL 0.9 0.8-1.1 N The INR is to be RATIO (test code = INR) used only for monitoring oral anticoagulantth erap y. INDICATION I NR VALUE ---- ---- ---- -------1. Prophylaxis, de ep venous thrombos is, including hig h risk surgery. 2.0 - 3.0 2. Prophylaxis, de ep venous thrombos is, hip surgery, treatment for d eep venous thrombosis or pulmonary prevention of systemic emboli sm in patients wit h valvular heart disease, atrial fibrillation, tissue heart va lve, or acute myocar dial infarction. 2.0 - 3 .0 3. Mechanical prosthesis hear t valves, recurrent syste meredith embolism. 3.0 - 4.5 Comments to Telephone Lines Repairer: nonePTT [id number] 10:01:00 Test Item Value Reference Range Interpretation Comments PTT ACTIVATED (test code = APTT) 24.2 SECONDS 22.0-33.0 N Comments to Telephone Lines Repairer: none- XR CHEST [id number] 09:06:00 Patient Name: MOISÉS CANNON Unit No: [id number] EXAMS: CPT CODE: [id number] XR CHEST 1V 95880 Location of dictation: B2 Portable chest one [...] Technologist: Jo-Ann Hall (RT) Transcrpt Date/Tm/Trnsp: 12/04/2018 (0906) [email or web address] Orig Print D/T: S: 12/04/2018 (09) [facility] NAME: MOISÉS CANNON [id number] [address] PHYS: DONY.Giovanna - [place] [address] : 1955 AGE: 63 SEX: F LOC: [id number].SI04 A PHONE #: [phone] EXAM DATE: 12/04/2018 STATUS: ADM IN FAX #: [phone] RADIOLOGY NO: PAGE 1 Signed ReportBASIC METABOLIC [id number] 07:35:00 Test Item Value Reference Range Interpretation Comments SODIUM (test code = 135 MMOL/L 137-145 L NA) POTASSIUM (test code = 4.2 MMOL/L 3.5-5.1 N K) CHLORIDE (test code = 98 MMOL/L 98-107 N CL) CARBON DIOXIDE (test 32 MMOL/L 22-30 H code = CO2) GLUCOSE (test code = 102 MG/DL 74-106 N GLU) BLOOD UREA NITROGEN 13 MG/DL 7-17 N (test code = BUN) GLOMERULAR FILTRATION > 60 Report ing units: RATE (test code = GFR) ml/mi n/1.73 m2 (Modified MDRD Formula)Referen ce Range: > or = 6 0 ml/min/1.73 m2 CREATININE (test code 0.60 MG/DL 0.52-1.04 N = CREAT) CALCIUM (test code = 9.1 MG/DL 8.4-10.2 N CA) [id number] 07:35:00 Test Item Value Reference Range Interpretation Comments PHOSPHOROUS (test code = PHOS) 3.7 MG/DL 2.5-4.5 N [id number] 07:35:00 Test Item Value Reference Range Interpretation Comments MAGNESIUM (test code = MAG) 1.9 MG/DL 1.6-2.3 N CBC W/AUTO [id number] 07:25:00 Test Item Value Reference Range Interpretation Comments WHITE BLOOD CELL (test code = 7.9 K/MM3 3.8-9.8 N WBC) RED BLOOD CELL (test code = 4.20 M/MM3 3.58-4.97 RBC) HEMOGLOBIN (test code = HGB) 12.0 G/DL 11.2-14.9 N HEMATOCRIT (test code = HCT) 38.9 % 33.2-43.5 MEAN CELL VOLUME (test code = 93 fL 80.7-99.1 N MCV) MEAN CELL HGB (test code = MCH) 28.6 pg 27.0-34.1 N MEAN CELL HGB CONCETRATION 30.8 % 32.2-35.7 L (test code = MCHC) RED CELL DISTRIBUTION WIDTH 14.7 % 12.1-15.2 N (test code = RDW) PLATELET COUNT (test code = 252 K/MM3 129-368 PLT) MEAN PLATELET VOLUME (test code 9.9 fl 7.4-10.4 N = MPV) NEUTROPHIL % (test code = NT%) 73.7 % 43-75 N IMMATURE GRANULOCYTE % (test 0.5 % 0.0-2.0 N code = IG%) LYMPHOCYTE % (test code = LY%) 16.7 % 14-44 N MONOCYTE % (test code = MO%) 7.7 % 4-13 N EOSINOPHIL % (test code = EO%) 1.1 % 0-6 N BASOPHIL % (test code = BA%) 0.3 % 0-2 N NUCLEATED RBC % (test code = 0.0 % 0-1.0 N NRBC%) NEUTROPHIL # (test code = NT#) 5.81 K/mm3 2.0-7.6 N IMMATURE GRANULOCYTE # (test 0.04 x10 3/uL 0-0.03 H code = IG#) LYMPHOCYTE # (test code = LY#) 1.32 K/mm3 1.0-3.8 N MONOCYTE # (test code = MO#) 0.61 K/mm3 0.1-0.8 N EOSINOPHIL # (test code = EO#) 0.09 K/mm3 0.0-0.2 N BASOPHIL # (test code = BA#) 0.02 K/mm3 0.0-0.2 N NUCLEATED RBC # (test code = 0.00 K/mm3 0.0-0.1 N NRBC#) - XR CHEST [id number] 18:47:00 Patient Name: MOISÉS CANNON Unit No: [id number] EXAMS: CPT CODE: [id number] XR CHEST 1V 26896 EXAM: Portable chest one view. Location code:J9 HI STORY: Pneumothorax COMPARISON: 12/03/2018 Findings: Stable position of right-sided chest tube and [...] Elizabeth M.D. CC: Chito Hanson MD;Oumou Stanley [employer] Technologist: Soumya Chapa RT(R) Transcrpt Date/Tm/Trnsp: 12/03/2018 (1846) [email or web address] Orig Print D/T: S: 12/03/2018 (1849) [facility] NAME: MOISÉS CANNON [id number] PHYS: [place] [address] : 1955 AGE: 63 SEX: F LOC: Z.355 A PHONE #: [phone] EXAM DATE: 12/03/2018 STATUS: ADM IN FAX #:[phone] RADIOLOGY NO: PAGE 1 Signed Report- XR CHEST [id number] 07:46:00 Patient Name: MOISÉS CANNON Unit No: [id number] EXAMS: CPT CODE: [id number] XR CHEST 1V 25130 Location of dictation: B2 Portable chest one view. HISTORY: Post Op Thoracotomy COMMENT: Compared to one day prior. A right IJ centralline and chest tube are again noted. Postsurgical changes of partial lobectomy again noted with slight improved aeration of the right lung. There is now small fluid or thickening ofthe right interlobar fissure and slightly more pronounced perihilar infiltrates. No lobar cons olidation, pneumothorax or effusion seen. Visualized soft tissues and skeletal structures are unremarkable. IMPRESSION: 1. More pronounced perihilar infiltrates with fluid and/or thickening of the right interlobar fissure. 2. Status post partial right lobectomy. No pneumothorax with right chest tube in place. at 0746 Reported and signed by: Neelima Ghosh M.D. CC: Chito Hanson MD Technologist: Maryjane Giles RT(R) Transcrpt Date/Tm/Trnsp: 12/03/2018 (0746) [id number] Orig Print D/T: S: 12/03/2018 (0749) [facility] NAME: MOISÉS CANNON [id number] [address] PHYS: [place] [address] : 1955 AGE: 63 SEX: F LOC: Z.SI04 A PHONE #: [phone] EXAM DATE: 12/03/2018 STATUS: ADM IN FAX #: [phone] RADIOLOGY NO: PAGE 1 Signed ReportBASIC METABOLIC PANEL 2018-12-03 04:54:00 Test Item Value Reference Range Interpretation Comments SODIUM (test code = 137 MMOL/L 137-145 N NA) POTASSIUM (test code = 4.5 MMOL/L 3.5-5.1 N K) CHLORIDE (test code = 101 MMOL/L 98-107 N CL) CARBON DIOXIDE (test 32 MMOL/L 22-30 H code = CO2) ANION GAP (test code = 9 MMOL/L 14-24 L GAP) GLUCOSE (test code = 91 MG/DL 74-106 N GLU) BLOOD UREA NITROGEN 14 MG/DL 7-17 N (test code = BUN) GLOMERULAR FILTRATION > 60 Report ing units: RATE (test code = GFR) ml/mi n/1.73 m2 (Modified MDRD Formula)Referen ce Range: > or = 6 0 ml/min/1.73 m2 CREATININE (test code 0.60 MG/DL 0.52-1.04 N = CREAT) CALCIUM (test code = 8.8 MG/DL 8.4-10.2 N CA) [id number] 04:54:00 Test Item Value Reference Range Interpretation Comments MAGNESIUM (test code = MAG) 2.0 MG/DL 1.6-2.3 N CBC W/AUTO [id number] 04:29:00 Test Item Value Reference Range Interpretation Comments WHITE BLOOD CELL (test code = 8.8 K/MM3 3.8-9.8 N WBC) RED BLOOD CELL (test code = 3.62 M/MM3 3.58-4.97 N RBC) HEMOGLOBIN (test code = HGB) 10.4 G/DL 11.2-14.9 L HEMATOCRIT (test code = HCT) 34.0 % 33.2-43.5 N MEAN CELL VOLUME (test code = 94 fL 80.7-99.1 N MCV) MEAN CELL HGB (test code = MCH) 28.7 pg 27.0-34.1 N MEAN CELL HGB CONCETRATION 30.6 % 32.2-35.7 L (test code = MCHC) RED CELL DISTRIBUTION WIDTH 14.6 % 12.1-15.2 N (test code = RDW) PLATELET COUNT (test code = 205 K/MM3 129-368 N PLT) MEAN PLATELET VOLUME (test code 9.4 fl 7.4-10.4 N = MPV) NEUTROPHIL % (test code = NT%) 68.9 % 43-75 N IMMATURE GRANULOCYTE % (test 0.5 % 0.0-2.0 N code = IG%) LYMPHOCYTE % (test code = LY%) 16.4 % 14-44 N MONOCYTE % (test code = MO%) 11.2 % 4-13 N EOSINOPHIL % (test code = EO%) 2.4 % 0-6 N BASOPHIL % (test code = BA%) 0.6 % 0-2 N NUCLEATED RBC % (test code = 0.0 % 0-1.0 N NRBC%) NEUTROPHIL # (test code = NT#) 6.10 K/mm3 2.0-7.6 N IMMATURE GRANULOCYTE # (test 0.04 x10 3/uL 0-0.03 H code = IG#) LYMPHOCYTE # (test code = LY#) 1.45 K/mm3 1.0-3.8 N MONOCYTE # (test code = MO#) 0.99 K/mm3 0.1-0.8 H EOSINOPHIL # (test code = EO#) 0.21 K/mm3 0.0-0.2 H BASOPHIL # (test code = BA#) 0.05 K/mm3 0.0-0.2 N NUCLEATED RBC # (test code = 0.00 K/mm3 0.0-0.1 N NRBC#) - XR CHEST [id number] 06:22:00 Patient Name: MOISÉS CANNON Unit No: [id number] EXAMS: CPT CODE: [id number] XR CHEST 1V 81992 AP VIEW OF THE CHEST LOCATION: R16 [...] noted. No acute bony abnormality is found. IMPRESSION: No significant interval change since 12/01/2018. at 0622 Reported and signed by: Svetlana Ham MD CC: Chito Hanson MD Technologist: Jericho Bates, RT(R) Transcrpt Date/Tm/Trnsp: 12/02/2018 (0622) [email or web address] Orig Print D/T: S: 12/02/2018 (0644) [facility] NAME: MOISÉS CANNON [id number] [address] PHYS: [place] [address] : 1955 AGE: 63 SEX: F LOC: Z.SI04 A PHONE #: [phone] EXAM DATE: 12/02/2018 STATUS:ADM IN FAX #: [phone] RADIOLOGY NO: PAGE 1 Signed ReportBASIC METABOLIC PANEL 2018-12-02 05:59:00 Test Item Value Reference Range Interpretation Comments SODIUM (test code = 139 MMOL/L 137-145 N NA) POTASSIUM (test code = 5.1 MMOL/L 3.5-5.1 N K) CHLORIDE (test code = 106 MMOL/L 98-107 N CL) CARBON DIOXIDE (test 31 MMOL/L 22-30 H code = CO2) GLUCOSE (test code = 97 MG/DL 74-106 N GLU) BLOOD UREA NITROGEN 16 MG/DL 7-17 N (test code = BUN) GLOMERULAR FILTRATION > 60 Report ing units: RATE (test code = GFR) ml/mi n/1.73 m2 (Modified MDRD Formula)Referen ce Range: > or = 6 0 ml/min/1.73 m2 CREATININE (test code 0.70 MG/DL 0.52-1.04 N = CREAT) CALCIUM (test code = 8.4 MG/DL 8.4-10.2 N CA) [id number] 05:59:00 Test Item Value Reference Range Interpretation Comments MAGNESIUM (test code = MAG) 2.1 MG/DL 1.6-2.3 N CBC W/AUTO [id number] 05:53:00 Test Item Value Reference Range Interpretation Comments WHITE BLOOD CELL (test code = 10.6 K/MM3 3.8-9.8 H WBC) RED BLOOD CELL (test code = 3.63 M/MM3 3.58-4.97 N RBC) HEMOGLOBIN (test code = HGB) 10.6 G/DL 11.2-14.9 L HEMATOCRIT (test code = HCT) 34.2 % 33.2-43.5 MEAN CELL VOLUME (test code = 94 fL 80.7-99.1 N MCV) MEAN CELL HGB (test code = MCH) 29.2 pg 27.0-34.1 N MEAN CELL HGB CONCETRATION 31.0 % 32.2-35.7 L (test code = MCHC) RED CELL DISTRIBUTION WIDTH 14.7 % 12.1-15.2 N (test code = RDW) PLATELET COUNT (test code = 225 K/MM3 129-368 N PLT) MEAN PLATELET VOLUME (test code 9.7 fl 7.4-10.4 N = MPV) NEUTROPHIL % (test code = NT%) 74.8 % 43-75 N IMMATURE GRANULOCYTE % (test 0.6 % 0.0-2.0 N code = IG%) LYMPHOCYTE % (test code = LY%) 13.4 % 14-44 L MONOCYTE % (test code = MO%) 9.9 % 4-13 N EOSINOPHIL % (test code = EO%) 0.9 % 0-6 N BASOPHIL % (test code = BA%) 0.4 % 0-2 N NUCLEATED RBC % (test code = 0.0 % 0-1.0 N NRBC%) NEUTROPHIL # (test code = NT#) 7.91 K/mm3 2.0-7.6 H IMMATURE GRANULOCYTE # (test 0.06 x10 3/uL 0-0.03 H code = IG#) LYMPHOCYTE # (test code = LY#) 1.42 K/mm3 1.0-3.8 N MONOCYTE # (test code = MO#) 1.05 K/mm3 0.1-0.8 H EOSINOPHIL # (test code = EO#) 0.09 K/mm3 0.0-0.2 N BASOPHIL # (test code = BA#) 0.04 K/mm3 0.0-0.2 N NUCLEATED RBC # (test code = 0.00 K/mm3 0.0-0.1 N NRBC#) [id number] 21:37:00 Test Item Value Reference Range Interpretation Comments POTASSIUM (test code = K) 3.2 MMOL/L 3.5-5.1 L Is this a LINE draw? YBASIC METABOLIC [id number] 07:40:00 Test Item Value Reference Range Interpretation Comments SODIUM (test code = 137 MMOL/L 137-145 N NA) POTASSIUM (test code = 4.1 MMOL/L 3.5-5.1 N K) CHLORIDE (test code = 104 MMOL/L 98-107 N CL) CARBON DIOXIDE (test 25 MMOL/L 22-30 N code = CO2) GLUCOSE (test code = 143 MG/DL 74-106 H GLU) BLOOD UREA NITROGEN 16 MG/DL 7-17 N (test code = BUN) GLOMERULAR FILTRATION > 60 Report ing units: RATE (test code = GFR) ml/mi n/1.73 m2 (Modified MDRD Formula)Referen ce Range: > or = 6 0 ml/min/1.73 m2 CREATININE (test code 0.60 MG/DL 0.52-1.04 N = CREAT) CALCIUM (test code = 8.4 MG/DL 8.4-10.2 N CA) [id number] 07:40:00 Test Item Value Reference Range Interpretation Comments MAGNESIUM (test code = MAG) 1.9 MG/DL 1.6-2.3 N CBC W/AUTO [id number] 07:27:00 Test Item Value Reference Range Interpretation Comments WHITE BLOOD CELL (test code = 12.4 K/MM3 3.8-9.8 H WBC) RED BLOOD CELL (test code = 4.06 M/MM3 3.58-4.97 N RBC) HEMOGLOBIN (test code = HGB) 11.6 G/DL 11.2-14.9 N HEMATOCRIT (test code = HCT) 38.1 % 33.2-43.5 N MEAN CELL VOLUME (test code = 94 fL 80.7-99.1 N MCV) MEAN CELL HGB (test code = MCH) 28.6 pg 27.0-34.1 N MEAN CELL HGB CONCETRATION 30.4 % 32.2-35.7 L (test code = MCHC) RED CELL DISTRIBUTION WIDTH 14.3 % 12.1-15.2 N (test code = RDW) PLATELET COUNT (test code = 212 K/MM3 129-368 N PLT) MEAN PLATELET VOLUME (test code 9.9 fl 7.4-10.4 N = MPV) NEUTROPHIL % (test code = NT%) 92.7 % 43-75 H IMMATURE GRANULOCYTE % (test 0.5 % 0.0-2.0 N code = IG%) LYMPHOCYTE % (test code = LY%) 3.1 % 14-44 L MONOCYTE % (test code = MO%) 3.6 % 4-13 L EOSINOPHIL % (test code = EO%) 0.0 % 0-6 N BASOPHIL % (test code = BA%) 0.1 % 0-2 N NUCLEATED RBC % (test code = 0.0 % 0-1.0 N NRBC%) NEUTROPHIL # (test code = NT#) 11.50 K/mm3 2.0-7.6 H IMMATURE GRANULOCYTE # (test 0.06 x10 3/uL 0-0.03 H code = IG#) LYMPHOCYTE # (test code = LY#) 0.38 K/mm3 1.0-3.8 L MONOCYTE # (test code = MO#) 0.44 K/mm3 0.1-0.8 N EOSINOPHIL # (test code = EO#) 0.00 K/mm3 0.0-0.2 N BASOPHIL # (test code = BA#) 0.01 K/mm3 0.0-0.2 N NUCLEATED RBC # (test code = 0.00 K/mm3 0.0-0.1 N NRBC#) - XR CHEST [id number] 06:27:00 Patient Name: MOISÉS CANNON Unit No: [id number] EXAMS: CPT CODE: [id number] XR CHEST 1V 09194 Exam: Chest portable erect Location: F6 History: P ost Op Thoracotomy Comparison: 11/30/2018 Findings: No change has occurred in the aeration of the lungs. The heart size is unchanged. The mediastinal silhouette is unremarkable. The bony thorax is intact. The right chest tube and right IJ line remain in place. Impression: Stable chest/no change. at 0627 Reported and signed by: Shola Duran M.D. CC: Chito Hanson MD Technologist: Jericho Bates, RT(R) Transcrpt Date/Tm/Trnsp: 12/01/2018 (626) Juan Orig Print D/T: S: 12/01/2018 (30) [facility] NAME: MOISÉS CANNON [id number] [address] PHYS: [place] [address] : 1955 AGE: 63 SEX: F LOC: Z.SI04 A PHONE #: [phone] EXAM DATE: 12/01/2018 STATUS: ADM IN FAX #: [phone] RADIOLOGY NO: PAGE 1 Signed ReportBASIC METABOLIC PANEL 2018-11-30 20:46:00 Test Item Value Reference Range Interpretation Comments SODIUM (test code = 138 MMOL/L 137-145 N NA) POTASSIUM (test code = 4.5 MMOL/L 3.5-5.1 N K) CHLORIDE (test code = 105 MMOL/L 98-107 N CL) CARBON DIOXIDE (test 26 MMOL/L 22-30 N code = CO2) ANION GAP (test code = 12 MMOL/L 14-24 L GAP) GLUCOSE (test code = 147 MG/DL 74-106 H GLU) BLOOD UREA NITROGEN 14 MG/DL 7-17 N (test code = BUN) GLOMERULAR FILTRATION > 60 Report ing units: RATE (test code = GFR) ml/mi n/1.73 m2 (Modified MDRD Formula)Referen ce Range: > or = 6 0 ml/min/1.73 m2 CREATININE (test code 0.50 MG/DL 0.52-1.04 L = CREAT) CALCIUM (test code = 8.8 MG/DL 8.4-10.2 N CA) [id number] 20:46:00 Test Item Value Reference Range Interpretation Comments MAGNESIUM (test code = MAG) 1.9 MG/DL 1.6-2.3 N BASIC METABOLIC [id number] 20:42:00 Test Item Value Reference Range Interpretation Comments SODIUM (test code = 138 MMOL/L 137-145 N NA) POTASSIUM (test code = MMOL/L 3.5-5.1 K) CHLORIDE (test code = 105 MMOL/L 98-107 N CL) CARBON DIOXIDE (test 26 MMOL/L 22-30 N code = CO2) GLUCOSE (test code = 147 MG/DL 74-106 H GLU) BLOOD UREA NITROGEN 14 MG/DL 7-17 N (test code = BUN) GLOMERULAR FILTRATION > 60 Report ing units: RATE (test code = GFR) ml/mi n/1.73 m2 (Modified MDRD Formula)Referen ce Range: > or = 6 0 ml/min/1.73 m2 CREATININE (test code 0.50 MG/DL 0.52-1.04 L = CREAT) CALCIUM (test code = 8.8 MG/DL 8.4-10.2 N CA) [id number] 20:42:00 Test Item Value Reference Range Interpretation Comments MAGNESIUM (test code = MAG) 1.9 MG/DL 1.6-2.3 N CBC W/AUTO [id number] 20:04:00 Test Item Value Reference Range Interpretation Comments WHITE BLOOD CELL (test code = 12.5 K/MM3 3.8-9.8 H WBC) RED BLOOD CELL (test code = 4.30 M/MM3 3.58-4.97 N RBC) HEMOGLOBIN (test code = HGB) 12.5 G/DL 11.2-14.9 N HEMATOCRIT (test code = HCT) 39.7 % 33.2-43.5 N MEAN CELL VOLUME (test code = 92 fL 80.7-99.1 N MCV) MEAN CELL HGB (test code = MCH) 29.1 pg 27.0-34.1 N MEAN CELL HGB CONCETRATION 31.5 % 32.2-35.7 L (test code = MCHC) RED CELL DISTRIBUTION WIDTH 14.2 % 12.1-15.2 N (test code = RDW) PLATELET COUNT (test code = 246 K/MM3 129-368 N PLT) MEAN PLATELET VOLUME (test code 9.6 fl 7.4-10.4 N = MPV) NEUTROPHIL % (test code = NT%) 82.7 % 43-75 H IMMATURE GRANULOCYTE % (test 1.0 % 0.0-2.0 N code = IG%) LYMPHOCYTE % (test code = LY%) 13.6 % 14-44 L MONOCYTE % (test code = MO%) 1.8 % 4-13 L EOSINOPHIL % (test code = EO%) 0.4 % 0-6 N BASOPHIL % (test code = BA%) 0.5 % 0-2 N NUCLEATED RBC % (test code = 0.0 % 0-1.0 N NRBC%) NEUTROPHIL # (test code = NT#) 10.37 K/mm3 2.0-7.6 H IMMATURE GRANULOCYTE # (test 0.12 x10 3/uL 0-0.03 H code = IG#) LYMPHOCYTE # (test code = LY#) 1.70 K/mm3 1.0-3.8 N MONOCYTE # (test code = MO#) 0.22 K/mm3 0.1-0.8 N EOSINOPHIL # (test code = EO#) 0.05 K/mm3 0.0-0.2 N BASOPHIL # (test code = BA#) 0.06 K/mm3 0.0-0.2 N NUCLEATED RBC # (test code = 0.00 K/mm3 0.0-0.1 N NRBC#) ARTERIAL BLOOD [id number] 19:53:00 Test Item Value Reference Range Interpretation Comments ARTERIAL BLOOD GAS PH 7.22 mmHg 7.35-7.45 LL (test code = PHA) ARTERIAL BLOOD GAS PCO2 48.2 mmHg 35.0-45.0 H (test code = PCO2A) ARTERIAL BLOOD GAS PO2 96.3 mmol/L 80.0-100.0 N (test code = PO2A) BICARBONATE TOTAL HCO3 19.2 mmol/L 20.0-26.0 L (test code = HCO3) BASE EXCESS (test code -8.7 mmol/L -3.0-3.0 L = ERICA) ABG O2 SATURATION (test 95.9 % 95.0-100.0 N All critical values code = SATA) report to and readback by ZAYRA NOEL & COU by JYOTHIPAULA at 11/30/2018 7:53: 09 PM ABG L/M (test code = 15 L/MIN L/M) ABG DELIVERY (test code NRBMASK = MARCUS) ABG TEMPERATURE (test 37.0 C >37 code = TEMPA) ABG SITE (test code = AL SITEA) ALLENS TEST (test code NA CHECK = ALLENS) FIO2 (test code = 100 % COHBGFFIO2) - XR CHEST [id number] 19:38:00 Patient Name: MOISÉS CANNON Unit No: [id number] EXAMS: CPT CODE: [id number] XR CHEST 1V 77516 EXAM: CHEST ONE VIEW INDICATION: Post Op [...] bilaterally. No pneumothorax is identified. LOCATION: B2 [id number] Reported and signed by: Mahi Campa MD CC: Martine Hanson MD Technologist: Jo-Ann Hall (RT) Transcrpt Date/Tm/Trnsp: 11/30/2018 (1937) 16 Orig Print D/T: S: 11/30/2018 (1940) [facility] NAME: MOISÉS CANNON [id number] PHYS: [place] [address] : 1955 AGE: 63 SEX: F LOC: HENRYU PHONE #: [phone] EXAM DATE: 11/30/2018 STATUS: REG SDC FAX #: [phone] RADIOLOGY NO: PAGE 1 Signed ReportHIV 12 AB DIFFERENTIATION 2018-11-28 17:53:00 Test Item Value Reference Range Interpretation Comments AB HIV 1 2 NON REACTIVE NON-REAC NOTE: A NONREA CTIVE (test code = RESULT INDICATE S THAT VOU26CG) HIV-1 AND HIV-2 ANTIBODIES HAVE NOT BEEN F OUND IN THIS PATIENT SP ECIMEN. ANON-REACTIVE R ESULT, HOWEVER, DOES N OT PRECLUDE PREVIOUSEXPOSUR E OR INFECTION WITH HIV1. AG HIV1 P24 NON REACTIVE NONE REAC (test code = [id number]) PROTHROMBIN [id number] 15:49:00 Test Item Value Reference Range Interpretation Comments PROTHROMBIN TIME 9.7 SECONDS 9.6-11.6 N PATIENT (test code = PTP) INTERNATIONAL NORMAL 0.9 0.8-1.1 N The INR is to be RATIO (test code = INR) used only for monitoring oral anticoagulantth erap y. INDICATION I NR VALUE ---- ---- ---- -------1. Prophylaxis, de ep venous thrombos is, including hig h risk surgery. 2.0 - 3.0 2. Prophylaxis, de ep venous thrombos is, hip surgery, treatment for d eep venous thrombosis or pulmonary prevention of systemic emboli sm in patients wit h valvular heart disease, atrial fibrillation, tissue heart va lve, or acute myocar dial infarction. 2.0 - 3 .0 3. Mechanical prosthesis hear t valves, recurrent syste meredith embolism. 3.0 - 4.5 PTT [id number] 15:49:00 Test Item Value Reference Range Interpretation Comments PTT ACTIVATED (test code = APTT) 23.4 SECONDS 22.0-33.0 N - XR CHEST 2 [id number] 15:47:00 Patient Name: MOISÉS CANNON Unit No: [id number] EXAMS: CPT CODE: [id number] XR CHEST 2 V 13044 EXAM: CHEST 2 VIEWS INDICATION: PRE-OP COMPARISON: CT dated November 06, 2018 TECHNIQUE: PA and lateral views of the chest. FINDINGS: The heart size is normal. The lungs are clear bilaterally. The pulmonary vasculature is normal. No pneumothorax or pleural effusion is identified. The osseous structures are normal. IMPRESSION: No acute cardiopulmonary process. LOCATION: B2 at 1547 Reported and signed by: Mahi Campa MD CC: Chito Hanson MD Technologist: [facility] STUDENT ; Christian Villavicencio, RT(R) Transcrpt Date/Tm/Trnsp: 11/28/2018 (1547) 16 Orig Print D/T: S: 11/28/2018 (2636) [facility] NAME: MOISÉS CANNON[address] PHYS: [place] [address] : 1955 AGE: 63 SEX: F LOC: Z.5MU PHONE #: [phone] EXAM DATE: 11/28/2018 STATUS: PRE IN FAX #: [phone] RADIOLOGY NO: PAGE 1 Signed ReportBASIC METABOLIC [id number] 15:42:00 Test Item Value Reference Range Interpretation Comments SODIUM (test code = 138 MMOL/L 137-145 N NA) POTASSIUM (test code = 4.0 MMOL/L 3.5-5.1 N K) CHLORIDE (test code = 107 MMOL/L 98-107 N CL) CARBON DIOXIDE (test 24 MMOL/L 22-30 N code = CO2) ANION GAP (test code = 11 MMOL/L 14-24 L GAP) GLUCOSE (test code = 115 MG/DL 74-106 H GLU) BLOOD UREA NITROGEN 16 MG/DL 7-17 N (test code = BUN) GLOMERULAR FILTRATION > 60 Report ing units: RATE (test code = GFR) ml/mi n/1.73 m2 (Modified MDRD Formula)Referen ce Range: > or = 6 0 ml/min/1.73 m2 CREATININE (test code 0.70 MG/DL 0.52-1.04 N = CREAT) CALCIUM (test code = 9.2 MG/DL 8.4-10.2 N CA) CBC W/AUTO [id number] 15:32:00 Test Item Value Reference Range Interpretation Comments WHITE BLOOD CELL (test code = 9.3 K/MM3 3.8-9.8 N WBC) RED BLOOD CELL (test code = 4.54 M/MM3 3.58-4.97 N RBC) HEMOGLOBIN (test code = HGB) 13.1 G/DL 11.2-14.9 N HEMATOCRIT (test code = HCT) 41.3 % 33.2-43.5 N MEAN CELL VOLUME (test code = 91 fL 80.7-99.1 N MCV) MEAN CELL HGB (test code = MCH) 28.9 pg 27.0-34.1 N MEAN CELL HGB CONCETRATION 31.7 % 32.2-35.7 L (test code = MCHC) RED CELL DISTRIBUTION WIDTH 14.1 % 12.1-15.2 N (test code = RDW) PLATELET COUNT (test code = 253 K/MM3 129-368 N PLT) MEAN PLATELET VOLUME (test code 9.0 fl 7.4-10.4 N = MPV) NEUTROPHIL % (test code = NT%) 67.8 % 43-75 N IMMATURE GRANULOCYTE % (test 0.6 % 0.0-2.0 N code = IG%) LYMPHOCYTE % (test code = LY%) 20.8 % 14-44 N MONOCYTE % (test code = MO%) 8.7 % 4-13 N EOSINOPHIL % (test code = EO%) 1.3 % 0-6 N BASOPHIL % (test code = BA%) 0.8 % 0-2 N NUCLEATED RBC % (test code = 0.0 % 0-1.0 N NRBC%) NEUTROPHIL # (test code = NT#) 6.30 K/mm3 2.0-7.6 N IMMATURE GRANULOCYTE # (test 0.06 x10 3/uL 0-0.03 H code = IG#) LYMPHOCYTE # (test code = LY#) 1.93 K/mm3 1.0-3.8 N MONOCYTE # (test code = MO#) 0.81 K/mm3 0.1-0.8 H EOSINOPHIL # (test code = EO#) 0.12 K/mm3 0.0-0.2 N BASOPHIL # (test code = BA#) 0.07 K/mm3 0.0-0.2 N NUCLEATED RBC # (test code = 0.00 K/mm3 0.0-0.1 N NRBC#) - CTA ABD PEL W [id number] 10:28:00 Patient Name: MOISÉS CANNON Unit No: [id number] Report Has Been Amended EXAMS: CPT CODE: [id number] CTA ABD PEL W CONT 87813 Addendum - 11/15/2018 SIGNED 11/15/2018 ADDENDUM: [id number] CT/CTAAPWCONTAddendum: 3-D/MIP reconstructions of the central arteries were created. at 1028 Reported and signed by: Chris Simmons M.D. Transcribed: 11/15/2018 (1023) [id number] Report CTA Abdomen and Pelvis with and [...] of the aortoiliac stent graft are patent. [facility] NAME: MOISÉS CANNON [id number] PHYS: [place] [address] : 1955 AGE:63 SEX: F LOC: Z.CTS PHONE #: [phone] EXAM DATE: 11/06/2018 STATUS: DEP CLI FAX #: [phone] RAD #: D/C DT PAGE 1 Signed Report (CONTINUED) Patient Name: MOISÉS CANNON Unit No: [id number] Report Has Been Amended EXAMS: CPT CODE: [id number] CTA ABD PEL W CONT 78373 <Continue d> Bilateral external iliac arteries are patent. Bilateral [...] infarct. at 1346 Reported and signed by: hCris Simmons M.D. CC: Radha Hanson MD Technologist: Anam Bill, RT(R); Kalen CTDI: DLP: Trnscrpt: 11/06/2018 (4060) [id number] [facility] NAME: MOISÉS CANNON [address] [address] PHYS: Chris Sky MD [place] [id number] : 1955 AGE: 63 SEX: F LOC: KAYLYN PHONE #: [phone] DATE: 11/06/2018 STATUS: DEP CLI FAX #: [phone] RAD #: D/C DT PAGE 2 Signed Report Patient Name: MOISÉS CANNON Unit No: [id number] Report Has Be en Amended EXAMS: CPT CODE: [id number] CTA ABD PEL W CONT [id number] <Continued> Orig Print D/T: S: 11/06/2018 (9980) [facility] NAME: MOISÉS CANNON [address] PHYS: Chris Sky MD [place] [id number] : 1955 AGE: 63 SEX: F LOC: KAYLYN PHONE #: [phone] EXAM DATE: 11/06/2018 STATUS: DEP CLI FAX #: [phone] RAD #: D/C DT PAGE 3 Signed ReportBEDSIDE [id number] 14:50:00 Test Item Value Reference Range Interpretation Comments BEDSIDE CREATININE (test code = 0.6 MG/DL 0.6-1.4 N CREATBED) - CT CHEST [id number] 14:06:00 Patient Name: MOISÉS CANNON Unit No: [id number] EXAMS: CPT CODE: [id number] CT CHEST W/CONTRAST 27026 EXAM: Chest CT with contrast Location: B2 INDICATION:Lung nodule COMPARISON: Chest x-ray on 12/21/2015 TECHNIQUE: Helical CT of the chest was performed following the administration of 100 mL Isovue-370 IV contrast. 5 mm axial and coronal and sagittal reformatted images were performed. DISCUSSION: Lungs and airways: A 14 mm rounded right upper lobe nodule is identified. This is visible on the evp strategy film, but was not evident on the [...] pleural surface. This is visible on the evp strategy film, and was not present on the prior chest x-ray and November 2015. This is suspicious for malignancy. Further evaluation is recommended with short-term CT chest follow-up in 3 months, PET CT, or tissue sampling. 2.Small hiatal hernia. 3. Celiac artery aneurysm and dissection; please refer to the CT abdomen and pelvis performed concurrently. One or more of the following dose reduction techniques were used: Automated exposure control, adjustment of the mA and/or kV according to patient size, and/or utilization of iterative reconstruction technique. [facility] NAME: MOISÉS CANNON [id number] [address] PHYS: [place] [address] : 1955 AGE: 63 SEX: F : Z.CTS PHONE #: [phone] EXAM DATE: 11/06/2018 STATUS: REG CLI FAX #: [phone] RAD #: D/C DT PAGE 1 Signed Report (CONTINUED) Patient Name: MOISÉS CANNON Unit No: [id number] EXAMS: CPT CODE: [id number] CT CHEST W/CONTRAST 64445 <Continued> DLP: 1708 mGy-cm CTDI: 51 mGy at 1406 Reported and signed by: Jake Menchaca MD CC: Chito Hanson MD Technologist: Anam Bill, RT(R); Kalen CTDI: DLP: Trnscrpt: 11/06/2018 (1406) [email or web address] [facility] NAME: MOISÉS CANNON [address] AmandaPHYS: [place] [address] : 1955 AGE: 63 SEX: F LOC: [place] PHONE #: [phone] EXAM DATE: 11/06/2018 STATUS: REG CLI FAX #: [phone] RAD #: D/C DT PAGE 2 Signed Report Patient Name: MOISÉS CANNON Unit No: [id number] EXAMS: CPT CODE: [id number] CT CHEST W/CONTRAST 13367 <Continued> Orig Print D/T: S: 11/06/2018 (7019) [facility] NAME: MOISÉS RICKETTS [id number] [address] PHYS: [place] [address] : 1955 AGE: 63 SEX: F LOC: ZCourtneyCTS PHONE #: [phone] EXAM DATE: 11/06/2018 STATUS: REG CLI FAX #: [phone] RAD #: D/C DT PAGE 3 Signed Report- CTA ABD PEL W [id number] 13:46:00 Patient Name: MOISÉS CANNON Unit No: [id number] EXAMS: CPT CODE: [id number] CTA ABD PEL W CONT 40668 CTA Abdomen and Pelvis with and without [...] to 4.5 x 3.6 cm. There is enhancem ent within the sac which is likely the [...] femoral artery. 4. Interval right renal infarct. [facility] NAME: MOISÉS CANNON [address] [address] PHYS: [place] [address] : 1955 AGE: 63 SEX: F LOC: [facility] PHONE #: [phone] EXAM DATE: 11/06/2018 STATUS: REG CLI FAX #: [phone] RAD #: D/C DT PAGE 1 Signed Report (CONTINUED) Patient Name: MOISÉS CANNON Unit No: [id number] EXAMS: CPT CODE: [id number] CTA ABD PEL W CONT 29173 <Continued> at 1346 Reported and signed by: Chris Simmons M.D. CC: Chito Hanson MD Technologist: Anam Bill, RT(R); Kalen CTDI: DLP: Trnscrpt: 11/06/2018 (8820) [email or web address] [facility] NAME: MOISÉS CANNON [address] PHYS: [place] [address] : 1955 AGE: 63 SEX: F LOC: [place] PHONE #: [phone] EXAM DATE: 11/06/2018 STATUS: REG CLI FAX #: [phone] RAD #: D/C DT PAGE 2 Signed Report Patient Name: MOISÉS CANNON Unit No: [id number] EXAMS: CPT CODE: [id number] CTA ABD PEL WCONT 30037 <Continued> Orig Print D/T: S: 11/06/2018 (5890) [facility] NAME: MOISÉS CANNON [id number] PHYS: Chris Sky MD [place] [id number] : 1955 AGE: 63 SEX: F LOC: [facility] PHONE #: [phone] EXAM DATE: 11/06/2018 STATUS: REG CLI FAX #: [phone] RAD #: D/C DT PAGE 3 Signed ReportCBC W/PLT COUNT & AUTO [id number] 05:53:00 Test Item Value Reference Range Interpretation Comments WHITE BLOOD CELL COUNT (BEAKER) 12.3 K/ L 4.0-10.0 H (test code = 775) RED BLOOD CELL COUNT (BEAKER) 3.32 M/ L 4.00-5.00 L (test code = 761) HEMOGLOBIN (BEAKER) (test code = 10.4 GM/DL 12.0-15.5 L 410) HEMATOCRIT (BEAKER) (test code = 33.8 % 36.0-46.0 L 411) MEAN CORPUSCULAR VOLUME (BEAKER) 101.8 fL 82.0-99.0 H (test code = 753) MEAN CORPUSCULAR HEMOGLOBIN 31.3 pg 27.0-33.0 (BEAKER) (test code = 751) MEAN CORPUSCULAR HEMOGLOBIN CONC 30.8 GM/DL 32.0-36.0 L (BEAKER) (test code = 752) RED CELL DISTRIBUTION WIDTH 14.6 % 12.0-15.0 (BEAKER) (test code = 412) PLATELET COUNT (BEAKER) (test 395 K/CU MM 150-430 code = 756) MEAN PLATELET VOLUME (BEAKER) 9.7 fL 6.0-11.5 (test code = 754) NUCLEATED RED BLOOD CELLS 0 /100 WBC 0-0 (BEAKER) (test code = 413) NEUTROPHILS RELATIVE PERCENT 66 % (BEAKER) (test code = 429) LYMPHOCYTES RELATIVE PERCENT 17 % (BEAKER) (test code = 430) MONOCYTES RELATIVE PERCENT 12 % (BEAKER) (test code = 431) EOSINOPHILS RELATIVE PERCENT 2 % (BEAKER) (test code = 432) BASOPHILS RELATIVE PERCENT 1 % (BEAKER) (test code = 437) NEUTROPHILS ABSOLUTE COUNT 8.14 K/ L 1.80-8.00 H (BEAKER) (test code = 670) LYMPHOCYTES ABSOLUTE COUNT 2.04 K/ L 1.48-4.50 (BEAKER) (test code = 414) MONOCYTES ABSOLUTE COUNT (BEAKER) 1.46 K/ L 0.00-1.30 H (test code = 415) EOSINOPHILS ABSOLUTE COUNT 0.28 K/ L 0.00-0.50 (BEAKER) (test code = 416) BASOPHILS ABSOLUTE COUNT (BEAKER) 0.07 K/ L 0.00-0.20 (test code = 417) IMMATURE GRANULOCYTES-RELATIVE 3 % 0-0 H PERCENT (BEAKER) (test code = 2801) BASIC METABOLIC [id number] 05:36:00 Test Item Value Reference Range Interpretation Comments SODIUM (BEAKER) 139 meq/L 135-148 (test code = 381) POTASSIUM (BEAKER) 4.5 meq/L 3.6-5.5 (test code = 379) CHLORIDE (BEAKER) 102 meq/L 98-106 (test code = 382) CO2 (BEAKER) (test 28 meq/L 20-29 code = 355) BLOOD UREA NITROGEN 14 mg/dL 10-26 (BEAKER) (test code = 354) CREATININE (BEAKER) 0.63 mg/dL 0.50-1.20 (test code = 358) GLUCOSE RANDOM 91 mg/dL 70-110 (BEAKER) (test code = 652) CALCIUM (BEAKER) 9.3 mg/dL 8.5-10.5 (test code = 697) EGFR (BEAKER) (test 95 mL/min/1.73 ESTIMA DAVID GFR IS code = 1092) sq m NOT ACCURATE CREATININE CLEARANCE IN PREDICTING GLOMERULAR FILTRATION RATE . ESTIMATED GFR I S NOT APPLICABLE FOR DIALYSIS PATIEN TS. CT, CTA AAA, W/ RAVINDER.EXT.[id number] 18:40:00Addendum BeginsREPORT STATUS:A Addendum: I agree with the previously described non vascular findings. Additionally there is mild skin thickening in the lower anterior abdominal wall and subcutaneous edema which may be secondary to cellulitis. Signed: Dain Rivers MDReport Verified Date/Time: 09/17/2018 18:40:47 Reading Location: [place] [address] Angio Body Reading RoomAddendum EndsFINAL REPORT CT angiography of the abdominal aorta with runoff, September2018 INDICATION: This is a 63 year old female with a diagnosis of abdominal aortic aneurysm presentsfor assessment. Note, a runoff study was requested in with the above indication. This study is performed in an attempt to avoid an invasive procedure. TECHNIQUE: Spiral acquisition before and during int ravenous contrast administration using a [employer] multidetector CT scanner. Images were obtained before [...] internal iliac arteries are patent with calcific ath erosclerosis identified. There is either localised atherosclerotic ulceration [...] x 3.7 cm. No prior examination is av ailable for comparison and therefore aortic volume is [...] dictated regarding the non-vascular findings by the Tooth Grinder Radiologist. Signed: [facility] Verified Date/Time: 09/17/2018 14:46:36 Reading Location: [place] [address] Cardiology MRI BASI METABOLIC [id number] 07:21:00 Test Item Value Reference Range Interpretation Comments SODIUM (BEAKER) 145 meq/L 135-148 (test code = 381) POTASSIUM (BEAKER) 4.0 meq/L 3.6-5.5 (test code = 379) CHLORIDE (BEAKER) 103 meq/L 98-106 (test code = 382) CO2 (BEAKER) (test 32 meq/L 20-29 H code = 355) BLOOD UREA NITROGEN 12 mg/dL 10-26 (BEAKER) (test code = 354) CREATININE (BEAKER) 0.63 mg/dL 0.50-1.20 (test code = 358) GLUCOSE RANDOM 78 mg/dL 70-110 (BEAKER) (test code = 652) CALCIUM (BEAKER) 8.5 mg/dL 8.5-10.5 (test code = 697) EGFR (BEAKER) (test 95 mL/min/1.73 ESTIMA DAVID GFR IS code = 1092) sq m NOT ACCURATE CREATININE CLEARANCE IN PREDICTING GLOMERULAR FILTRATION RATE . ESTIMATED GFR I S NOT APPLICABLE FOR DIALYSIS PATIEN TS. [id number] 07:20:00 Test Item Value Reference Range Interpretation Comments PHOSPHORUS (BEAKER) (test code = 3.8 mg/dL 2.5-4.5 604) [id number] 07:15:00 Test Item Value Reference Range Interpretation Comments MAGNESIUM (BEAKER) (test code = 1.9 mg/dL 1.5-3.0 627) CBC W/PLT COUNT & AUTO [id number] 06:56:00 Test Item Value Reference Range Interpretation Comments WHITE BLOOD CELL COUNT (BEAKER) 10.8 K/ L 4.0-10.0 H (test code = 775) RED BLOOD CELL COUNT (BEAKER) 3.02 M/ L 4.00-5.00 L (test code = 761) HEMOGLOBIN (BEAKER) (test code = 9.7 GM/DL 12.0-15.5 L 410) HEMATOCRIT (BEAKER) (test code = 30.4 % 36.0-46.0 L 411) MEAN CORPUSCULAR VOLUME (BEAKER) 100.7 fL 82.0-99.0 H (test code = 753) MEAN CORPUSCULAR HEMOGLOBIN 32.1 pg 27.0-33.0 (BEAKER) (test code = 751) MEAN CORPUSCULAR HEMOGLOBIN CONC 31.9 GM/DL 32.0-36.0 L (BEAKER) (test code = 752) RED CELL DISTRIBUTION WIDTH 14.7 % 12.0-15.0 (BEAKER) (test code = 412) PLATELET COUNT (BEAKER) (test 344 K/CU MM 150-430 code = 756) MEAN PLATELET VOLUME (BEAKER) 9.9 fL 6.0-11.5 (test code = 754) NUCLEATED RED BLOOD CELLS 0 /100 WBC 0-0 (BEAKER) (test code = 413) NEUTROPHILS RELATIVE PERCENT 66 % (BEAKER) (test code = 429) LYMPHOCYTES RELATIVE PERCENT 17 % (BEAKER) (test code = 430) MONOCYTES RELATIVE PERCENT 10 % (BEAKER) (test code = 431) EOSINOPHILS RELATIVE PERCENT 4 % (BEAKER) (test code = 432) BASOPHILS RELATIVE PERCENT 1 % (BEAKER) (test code = 437) NEUTROPHILS ABSOLUTE COUNT 7.09 K/ L 1.80-8.00 (BEAKER) (test code = 670) LYMPHOCYTES ABSOLUTE COUNT 1.87 K/ L 1.48-4.50 (BEAKER) (test code = 414) MONOCYTES ABSOLUTE COUNT (BEAKER) 1.02 K/ L 0.00-1.30 (test code = 415) EOSINOPHILS ABSOLUTE COUNT 0.41 K/ L 0.00-0.50 (BEAKER) (test code = 416) BASOPHILS ABSOLUTE COUNT (BEAKER) 0.05 K/ L 0.00-0.20 (test code = 417) IMMATURE GRANULOCYTES-RELATIVE 3 % 0-0 H PERCENT (BEAKER) (test code = 2801) BASIC METABOLIC [id number] 05:51:00 Test Item Value Reference Range Interpretation Comments SODIUM (BEAKER) 141 meq/L 135-148 (test code = 381) POTASSIUM (BEAKER) 4.0 meq/L 3.6-5.5 (test code = 379) CHLORIDE (BEAKER) 105 meq/L 98-106 (test code = 382) CO2 (BEAKER) (test 32 meq/L 20-29 H code = 355) BLOOD UREA NITROGEN 14 mg/dL 10-26 (BEAKER) (test code = 354) CREATININE (BEAKER) 0.60 mg/dL 0.50-1.20 (test code = 358) GLUCOSE RANDOM 87 mg/dL 70-110 (BEAKER) (test code = 652) CALCIUM (BEAKER) 8.1 mg/dL 8.5-10.5 L (test code = 697) EGFR (BEAKER) (test 101 mL/min/1.73 ESTIM ATED GFR IS code = 1092) sq m NOT ACCURATE CREATININE CLEARANCE IN PREDICTING GLOMERULAR FILTRATION RATE . ESTIMATED GFR I S NOT APPLICABLE FOR DIALYSIS PATIEN TS. CBC W/PLT COUNT & AUTO [id number] 05:23:00 Test Item Value Reference Range Interpretation Comments WHITE BLOOD CELL COUNT (BEAKER) 9.3 K/ L 4.0-10.0 (test code = 775) RED BLOOD CELL COUNT (BEAKER) 2.85 M/ L 4.00-5.00 L (test code = 761) HEMOGLOBIN (BEAKER) (test code = 8.9 GM/DL 12.0-15.5 L 410) HEMATOCRIT (BEAKER) (test code = 29.2 % 36.0-46.0 L 411) MEAN CORPUSCULAR VOLUME (BEAKER) 102.5 fL 82.0-99.0 H (test code = 753) MEAN CORPUSCULAR HEMOGLOBIN 31.2 pg 27.0-33.0 (BEAKER) (test code = 751) MEAN CORPUSCULAR HEMOGLOBIN CONC 30.5 GM/DL 32.0-36.0 L (BEAKER) (test code = 752) RED CELL DISTRIBUTION WIDTH 14.9 % 12.0-15.0 (BEAKER) (test code = 412) PLATELET COUNT (BEAKER) (test 303 K/CU MM 150-430 code = 756) MEAN PLATELET VOLUME (BEAKER) 9.6 fL 6.0-11.5 (test code = 754) NUCLEATED RED BLOOD CELLS 0 /100 WBC 0-0 (BEAKER) (test code = 413) NEUTROPHILS RELATIVE PERCENT 63 % (BEAKER) (test code = 429) LYMPHOCYTES RELATIVE PERCENT 21 % (BEAKER) (test code = 430) MONOCYTES RELATIVE PERCENT 10 % (BEAKER) (test code = 431) EOSINOPHILS RELATIVE PERCENT 3 % (BEAKER) (test code = 432) BASOPHILS RELATIVE PERCENT 0 % (BEAKER) (test code = 437) NEUTROPHILS ABSOLUTE COUNT 5.86 K/ L 1.80-8.00 (BEAKER) (test code = 670) LYMPHOCYTES ABSOLUTE COUNT 1.96 K/ L 1.48-4.50 (BEAKER) (test code = 414) MONOCYTES ABSOLUTE COUNT (BEAKER) 0.95 K/ L 0.00-1.30 (test code = 415) EOSINOPHILS ABSOLUTE COUNT 0.29 K/ L 0.00-0.50 (BEAKER) (test code = 416) BASOPHILS ABSOLUTE COUNT (BEAKER) 0.03 K/ L 0.00-0.20 (test code = 417) IMMATURE GRANULOCYTES-RELATIVE 2 % 0-0 H PERCENT (BEAKER) (test code = 2801) B-TYPE NATRIURETIC FACTOR (BNP)2018-09-15 05:51:00 Test Item Value Reference Range Interpretation Comments B-TYPE NATRIURETIC PEPTIDE (BEAKER) 418 pg/mL 0-100 H (test code = 700) [id number] 05:49:00 Test Item Value Reference Range Interpretation Comments PHOSPHORUS (BEAKER) (test code = 1.5 mg/dL 2.5-4.5 LL 604) BASIC METABOLIC [id number] 05:45:00 Test Item Value Reference Range Interpretation Comments SODIUM (BEAKER) 144 meq/L 135-148 (test code = 381) POTASSIUM (BEAKER) 4.8 meq/L 3.6-5.5 (test code = 379) CHLORIDE (BEAKER) 105 meq/L 98-106 (test code = 382) CO2 (BEAKER) (test 32 meq/L 20-29 H code = 355) BLOOD UREA NITROGEN 12 mg/dL 10-26 (BEAKER) (test code = 354) CREATININE (BEAKER) 0.62 mg/dL 0.50-1.20 (test code = 358) GLUCOSE RANDOM 113 mg/dL 70-110 H (BEAKER) (test code = 652) CALCIUM (BEAKER) 8.5 mg/dL 8.5-10.5 (test code = 697) EGFR (BEAKER) (test 97 mL/min/1.73 ESTIMA DAVID GFR IS code = 1092) sq m NOT ACCURATE CREATININE CLEARANCE IN PREDICTING GLOMERULAR FILTRATION RATE . ESTIMATED GFR I S NOT APPLICABLE FOR DIALYSIS PATIEN TS. [id number] 05:39:00 Test Item Value Reference Range Interpretation Comments MAGNESIUM (BEAKER) (test code = 2.3 mg/dL 1.5-3.0 627) CBC W/PLT COUNT & AUTO [id number] 05:24:00 Test Item Value Reference Range Interpretation Comments WHITE BLOOD CELL COUNT (BEAKER) 10.9 K/ L 4.0-10.0 H (test code = 775) RED BLOOD CELL COUNT (BEAKER) 2.93 M/ L 4.00-5.00 L (test code = 761) HEMOGLOBIN (BEAKER) (test code = 9.2 GM/DL 12.0-15.5 L 410) HEMATOCRIT (BEAKER) (test code = 29.3 % 36.0-46.0 L 411) MEAN CORPUSCULAR VOLUME (BEAKER) 100.0 fL 82.0-99.0 H (test code = 753) MEAN CORPUSCULAR HEMOGLOBIN 31.4 pg 27.0-33.0 (BEAKER) (test code = 751) MEAN CORPUSCULAR HEMOGLOBIN CONC 31.4 GM/DL 32.0-36.0 L (BEAKER) (test code = 752) RED CELL DISTRIBUTION WIDTH 14.7 % 12.0-15.0 (BEAKER) (test code = 412) PLATELET COUNT (BEAKER) (test 313 K/CU MM 150-430 code = 756) MEAN PLATELET VOLUME (BEAKER) 9.7 fL 6.0-11.5 (test code = 754) NUCLEATED RED BLOOD CELLS 0 /100 WBC 0-0 (BEAKER) (test code = 413) NEUTROPHILS RELATIVE PERCENT 82 % (BEAKER) (test code = 429) LYMPHOCYTES RELATIVE PERCENT 9 % (BEAKER) (test code = 430) MONOCYTES RELATIVE PERCENT 8 % (BEAKER) (test code = 431) EOSINOPHILS RELATIVE PERCENT 0 % (BEAKER) (test code = 432) BASOPHILS RELATIVE PERCENT 0 % (BEAKER) (test code = 437) NEUTROPHILS ABSOLUTE COUNT 8.88 K/ L 1.80-8.00 H (BEAKER) (test code = 670) LYMPHOCYTES ABSOLUTE COUNT 1.00 K/ L 1.48-4.50 L (BEAKER) (test code = 414) MONOCYTES ABSOLUTE COUNT (BEAKER) 0.86 K/ L 0.00-1.30 (test code = 415) EOSINOPHILS ABSOLUTE COUNT 0.03 K/ L 0.00-0.50 (BEAKER) (test code = 416) BASOPHILS ABSOLUTE COUNT (BEAKER) 0.01 K/ L 0.00-0.20 (test code = 417) IMMATURE GRANULOCYTES-RELATIVE 1 % 0-0 H PERCENT (BEAKER) (test code = 2801) BASIC METABOLIC [id number] 21:36:00 Test Item Value Reference Range Interpretation Comments SODIUM (BEAKER) 141 meq/L 135-148 (test code = 381) POTASSIUM (BEAKER) 3.2 meq/L 3.6-5.5 L (test code = 379) CHLORIDE (BEAKER) 102 meq/L 98-106 (test code = 382) CO2 (BEAKER) (test 31 meq/L 20-29 H code = 355) BLOOD UREA NITROGEN 9 mg/dL 10-26 L (BEAKER) (test code = 354) CREATININE (BEAKER) 0.65 mg/dL 0.50-1.20 (test code = 358) GLUCOSE RANDOM 150 mg/dL 70-110 H (BEAKER) (test code = 652) CALCIUM (BEAKER) 8.3 mg/dL 8.5-10.5 L (test code = 697) EGFR (BEAKER) (test 92 mL/min/1.73 ESTIMA DAVID GFR IS code = 1092) sq m NOT ACCURATE CREATININE CLEARANCE IN PREDICTING GLOMERULAR FILTRATION RATE . ESTIMATED GFR I S NOT APPLICABLE FOR DIALYSIS PATIEN TS. CBC W/PLT COUNT & AUTO [id number] 16:26:00 Test Item Value Reference Range Interpretation Comments WHITE BLOOD CELL COUNT (BEAKER) 8.1 K/ L 4.0-10.0 (test code = 775) RED BLOOD CELL COUNT (BEAKER) 2.93 M/ L 4.00-5.00 L (test code = 761) HEMOGLOBIN (BEAKER) (test code = 9.3 GM/DL 12.0-15.5 L 410) HEMATOCRIT (BEAKER) (test code = 28.7 % 36.0-46.0 L 411) MEAN CORPUSCULAR VOLUME (BEAKER) 98.0 fL 82.0-99.0 (test code = 753) MEAN CORPUSCULAR HEMOGLOBIN 31.7 pg 27.0-33.0 (BEAKER) (test code = 751) MEAN CORPUSCULAR HEMOGLOBIN CONC 32.4 GM/DL 32.0-36.0 (BEAKER) (test code = 752) RED CELL DISTRIBUTION WIDTH 14.5 % 12.0-15.0 (BEAKER) (test code = 412) PLATELET COUNT (BEAKER) (test 277 K/CU MM 150-430 code = 756) MEAN PLATELET VOLUME (BEAKER) 9.5 fL 6.0-11.5 (test code = 754) NUCLEATED RED BLOOD CELLS 0 /100 WBC 0-0 (BEAKER) (test code = 413) NEUTROPHILS RELATIVE PERCENT 89 % (BEAKER) (test code = 429) LYMPHOCYTES RELATIVE PERCENT 7 % (BEAKER) (test code = 430) MONOCYTES RELATIVE PERCENT 3 % (BEAKER) (test code = 431) EOSINOPHILS RELATIVE PERCENT 0 % (BEAKER) (test code = 432) BASOPHILS RELATIVE PERCENT 0 % (BEAKER) (test code = 437) NEUTROPHILS ABSOLUTE COUNT 7.22 K/ L 1.80-8.00 (BEAKER) (test code = 670) LYMPHOCYTES ABSOLUTE COUNT 0.55 K/ L 1.48-4.50 L (BEAKER) (test code = 414) MONOCYTES ABSOLUTE COUNT (BEAKER) 0.25 K/ L 0.00-1.30 (test code = 415) EOSINOPHILS ABSOLUTE COUNT 0.01 K/ L 0.00-0.50 (BEAKER) (test code = 416) BASOPHILS ABSOLUTE COUNT (BEAKER) 0.01 K/ L 0.00-0.20 (test code = 417) IMMATURE GRANULOCYTES-RELATIVE 1 % 0-0 H PERCENT (BEAKER) (test code = 2801)
--- OUTSIDE RECORDS SUMMARY | 2020-04-02 14:29 | XMS REPORT | Summary of Care ---
:1955 Author Organization [facility] - [facility] Address [address] [place] [address] Care Team Providers Name Role Phone Herman Watkins MD Primary Care Provider Reason for Visit Reason Comments Refill Request Encounter Details Date Type Department Care Team Description 01/20/2020 Refill [facility] Family Medicine Herman Wallace MD Refill Request - [address] [address] [place] [address] [phone] Allergies No Known Allergiesdocumented as of this encounter (statuses as of 01/21/2020) Medications Medication Sig Dispensed Refills Start Date End Date Status ALBUTEROL SULFATE, BULK, 0 Active MISC chlorzoxazone 500 mg Take 1 tablet 1 06/26/2017 Active tablet by mouth 3 (three) times daily before meals. cetirizine 10 mg tablet Take 1 tablet 30 tablet 6 09/07/2017 Active by mouth daily. acyclovir 400 mg tablet Take 1 tablet 30 tablet 0 12/04/2017 Active by mouth 3 (three) times daily. clotrimazole-betamethason Apply to 45 g 1 12/04/2017 Active e cream area(s) 2 (two) times daily. albuterol 2.5 mg /3 mL Inhale 3 mL 2 Box 11 07/05/2018 Active (0.083 %) nebulizer every 4 (four) solution hours as needed for Wheezing or Shortness of Breath. albuterol sulfate (PROAIR Inhale 1 Puff 1 Each 11 07/05/2018 Active RESPICLICK) 90 every 4 (four) mcg/actuation AePB hours as needed for Other (shortness of breath wheezing). fluticasone-vilanterol Inhale 1 28 Each 11 01/17/2019 Active (BREO ELLIPTA) 100-25 Inhaler daily. mcg/dose DsDvIndications: Stage 3 severe COPD by GOLD classification OMEPRAZOLE 20 mg TAKE 1 CAPSULE 90 capsule 0 10/14/2019 Active capsuleIndications: BY MOUTH EVERY Gastroesophageal reflux DAY disease, esophagitis presence not specified atorvastatin 10 mg TAKE 1 TAB BY 90 tablet 1 10/17/2019 Active tabletIndications: MOUTH AT Hyperlipidemia, BEDTIME. unspecified hyperlipidemia type metoprolol succinate XL Take 1 tablet 90 tablet 1 10/17/2019 Active 50 mg 24 hr by mouth daily. tabletIndications: Essential hypertension ESCITALOPRAM OXALATE 20 TAKE 1 TABLET 90 tablet 2 11/04/2019 Active mg tabletIndications: BY MOUTH EVERY Depression, unspecified DAY depression type predniSONE 20 mg Take 1 tablet 5 tablet 0 12/04/2019 Active tabletIndications: by mouth daily. Chronic back pain, unspecified back location, unspecified back pain laterality azithromycin 500 mg Take 1 tablet 3 tablet 0 12/24/2019 Active tabletIndications: by mouth daily. Rhinosinusitis ZOLPIDEM 10 mg TAKE 1 TABLET 30 tablet 2 01/20/2020 Active tabletIndications: BY MOUTH EVERY Insomnia, unspecified DAY AT BEDTIME type NEEDED FOR INSOMNIA losartan 50 mg Take 1 tablet 30 tablet 2 01/20/2020 Active tabletIndications: by mouth daily. Essential hypertension hydroCHLOROthiazide 12.5 Take 1 capsule 30 capsule 2 0 Active mg capsuleIndications: by mouth daily. Essential hypertension documented as of this encounter (statuses as of 01/21/2020) Active Problems Problem Noted Date Gastroesophageal reflux disease, esophagitis presence not specified 12/04/2017 Chronic back pain, unspecified back location, unspecif ied back pain 12/04/2017 laterality Insomnia, unspecified type 12/20/2016 Essential hypertension 10/07/2016 Chronic obstructive pulmonary disease with acute exace rbation 06/15/2016 Infection of skin due to methicillin resistant Staphyl ococcus aureus 05/17/2016 (MRSA) Cyst of left kidney 11/30/2015 Hyperlipidemia 08/21/2015 Spondylosis of lumbosacral region 08/21/2015 Osteopenia 08/21/2015 Depression 08/21/2015 documented as of this encounter (statuses as of 01/21/2020) Immunizations Name Administration Dates Next Due Influenza Virus Vaccine Quad IM 3+ YRS 06/06/2017, 6 Pneumococcal 13 Conjugate, PCV13 (Prevnar 13) 06/06/2017 Pneumococcal Polysaccharide, PPSV23 (PNEUMOVAX) 06/15/2016 Zoster(Zostavax)(Shingles) 06/06/2017 documented as of this encounter Social History Tobacco Use Types Packs/Day Years Used Date Former Smoker Cigarettes Quit: 09/29/19 09 Smokeless Tobacco: Never Used Alcohol Use Drinks/Week [...] 06/06/2017 (SHINGRIX) (2 of 3) INFLUENZA VACCINE (Season Ended) 2020 06/06/2017, 01/2016 Breast Cancer Screening (MAMMOGRAM) 10/25/2020 10/25/2019, 12/27/2017, 10/12/2016 PNEUMOCOCCAL 0-64 YEARS COMBINED Completed 06/06/2017, 01/2016 SERIES HEPATITIS C (HCV) SCREEN Completed 10/04/2017 PAP SMEAR Discontinued documented as of this encounter Results Not on filedocumented in this encounter Visit Diagnoses Diagnosis Essential hypertension Unspecified essential hypertension documented in this encounter Additional Health Concerns Infection Onset Date Last Indicated Resolved Time Contact- MRSA 05/16/2016 05/16/2016 documented as of this encounter Insurance Payer Benefit Plan Subscriber ID Effective Dates Phone Address Type / Group [facility] [id number] 2017-[id number] [phone] [address] PPO/POS [place] [employer] t 7 [id number] [place] [address] documented as of this encounter
--- OUTSIDE RECORDS SUMMARY | 2020-04-02 14:29 | XMS REPORT | Summary of Care ---
:1955 Author Organization [facility] - [facility] Address [address] [place] [address] Care Team Providers Name Role Phone Herman Watkins MD Primary Care Provider Reason for Visit Reason Comments Medication Problem losartan-hydrochlorothiazide 50-12.5 mg per tablet Encounter Details Date Type Department Care Team Description 01/17/2020 Telephone [facility] Family Jono Watkins MD Medication Problem Medicine - [place] [address] ([facility]chlorot [facility] [place] hiazide 50-12.[place] [address] tablet) [id number] Allergies No Known Allergiesdocumented as of this encounter (statuses as of 01/20/2020) Medications Medication Sig Dispensed Refills Start End Status Date Date ALBUTEROL SULFATE, 0 A ctive BULK, MISC chlorzoxazone 500 mg Take 1 tablet 1 06/26/20 Active tablet by mouth 3 17 (three) times daily before meals. cetirizine 10 mg tablet Take 1 tablet 30 tablet 6 09/07/20 Active by mouth 17 daily. acyclovir 400 mg tablet Take 1 tablet 30 tablet 0 12/05/19 Active by mouth 3 18 (three) times daily. clotrimazole-betamethas Apply to 45 g 1 12/05/19 Active one cream area(s) 2 18 (two) times daily. albuterol 2.5 mg /3 mL Inhale 3 mL 2 Box 11 07/05/20 Active (0.083 %) nebulizer every 4 18 solution (four) hours as needed for Wheezing or Shortness of Breath. albuterol sulfate Inhale 1 Puff 1 Each 07/05/20 Active (PROAIR RESPICLICK) 90 every 4 18 mcg/actuation AePB (four) hours as needed for Other (shortness of breath wheezing). fluticasone-vilanterol Inhale 1 28 Each 01/18/20 Active (BREO ELLIPTA) 100-25 Inhaler 19 mcg/dose daily. DsDvIndications: Stage 3 severe COPD by GOLD classification OMEPRAZOLE 20 mg TAKE 1 90 capsule 0 10/14/19 Ac tive capsuleIndications: CAPSULE BY 20 Gastroesophageal reflux MOUTH EVERY disease, esophagitis DAY presence not specified atorvastatin 10 mg TAKE 1 TAB BY 90 tablet 1 10/17/19 Active tabletIndications: MOUTH AT 20 Hyperlipidemia, BEDTIME. unspecified hyperlipidemia type metoprolol succinate XL Take 1 tablet 90 tablet 1 10/17/19 Active 50 mg 24 hr by mouth 20 tabletIndications: daily. Essential hypertension ESCITALOPRAM OXALATE 20 TAKE 1 TABLET 90 tablet 2 11/04/19 Active mg tabletIndications: BY MOUTH 20 Depression, unspecified EVERY DAY depression type predniSONE 20 mg Take 1 tablet 5 tablet 0 12/04/19 Active tabletIndications: by mouth 20 Chronic back pain, daily. unspecified back location, unspecified back pain laterality azithromycin 500 mg Take 1 tablet 3 tablet 0 12/24/19 Active tabletIndications: by mouth 20 Rhinosinusitis daily. losartan 50 mg Take 1 tablet 30 tablet 2 01/20/20 A ctive tabletIndications: by mouth 20 Essential hypertension daily. hydroCHLOROthiazide Take 1 30 capsule 2 01/20/20 Active 12.5 mg capsule by 20 capsuleIndications: mouth daily. Essential hypertension losartan-hydrochlorothi Take 1 tablet 90 tablet 0 01/16/20 Discontinued azide 50-12.5 mg per by mouth 20 020 (Availability) tabletIndications: daily. Essential hypertension documented as of this encounter (statuses as of 01/20/2020) Active Problems Problem Noted Date Gastroesophageal reflux [...] as of this encounter (statuses as of 01/20/2020) Immunizations Name Administration Dates Next Due Influenza [...] this encounter Visit Diagnoses Diagnosis Essential hypertension - Primary Unspecified essential hypertension documented in this encounter Additional Health Concerns Infection Onset Date Last Indicated Resolved Time Contact- MRSA 05/16/2016 05/16/2016 documented as of this encounter Insurance Payer Benefit Plan Subscriber ID Effective Dates Phone Address Type / Group [facility] [id number] 2017-[id number] [phone] [address] PPO/POS [facility] t [id number] [place] [address] documented as of this encounter
--- OUTSIDE RECORDS SUMMARY | 2020-04-02 14:29 | XMS REPORT | Summary of Care ---
:1955 Author Organization [facility] Address [address] [place] [address] Care Team Providers Name Role Phone Herman Watkins MD Primary Care Provider Reason for Visit Reason Comments Refill Request Encounter Details Date Type Department Care Team Description 01/16/2020 Refill [facility] Herman Wallace MD Refill Request - [address] [address] [place] [address] [phone] Allergies No Known Allergiesdocumented as of this encounter (statuses as of 01/20/2020) Medications Medication Sig Dispensed Refills Start Date End Date Status ALBUTEROL SULFATE, 0 A ctive BULK, MISC [...] breath wheezing). fluticasone-vilantero Inhale 1 28 Each 11 01/17/2019 Active l (BREO ELLIPTA) Inhaler daily. 100-25 mcg/dose DsDvIndications: Stage 3 severe COPD by GOLD classification OMEPRAZOLE 20 mg TAKE 1 CAPSULE 90 capsule 0 10/14/2019 Active capsuleIndications: BY MOUTH EVERY Gastroesophageal DAY reflux disease, esophagitis presence not specified atorvastatin 10 mg TAKE 1 TAB BY 90 tablet 1 10/17/2019 Active tabletIndications: MOUTH AT Hyperlipidemia, BEDTIME. unspecified hyperlipidemia type metoprolol succinate Take 1 tablet 90 tablet 1 10/17/2019 Active XL 50 mg 24 hr by mouth tabletIndications: daily. Essential hypertension ESCITALOPRAM OXALATE TAKE 1 TABLET 90 tablet 2 11/04/2019 Active 20 mg BY MOUTH EVERY tabletIndications: DAY Depression, unspecified depression type predniSONE 20 mg Take 1 tablet 5 tablet 0 12/04/2019 Active tabletIndications: by mouth Chronic back pain, daily. unspecified back location, unspecified back pain laterality azithromycin 500 mg Take 1 tablet 3 tablet 0 12/24/2019 Active tabletIndications: by mouth Rhinosinusitis daily. losartan-hydrochlorot Take 1 tablet 90 tablet 0 01/16/2020 Active hiazide 50-12.5 mg by mouth per daily. tabletIndications: Essential hypertension ZOLPIDEM 10 mg TAKE 1 TABLET 30 tablet 2 01/20/2020 Active tabletIndications: BY MOUTH EVERY Insomnia, unspecified DAY AT BEDTIME type NEEDED FOR INSOMNIA zolpidem 10 mg Take 1 tablet 30 tablet 2 10/17/2019 01/20/20 Discontinued tabletIndications: by mouth at 20 Insomnia, unspecified bedtime as type needed for Insomnia. documented as of this encounter (statuses as [...] filedocumented in this encounter Visit Diagnoses Diagnosis Insomnia, unspecified type documented in this encounter Additional Health Concerns Infection Onset Date Last Indicated Resolved Time Contact- MRSA 05/16/2016 05/16/2016 documented as of this encounter Insurance Payer Benefit Plan Subscriber ID Effective Dates Phone Address Type / Group [facility] [address] [employer] [place] [id number] 2017-Zane [phone] [address] PPO/POS [place] [employer] t 7 [id number] [place] [address] documented as of this encounter
--- OUTSIDE RECORDS SUMMARY | 2020-04-02 14:30 | XMS REPORT | Summary of Care ---
:1955 Author Organization [facility] Address [address] [place] [address] Care Team Providers Name Role Phone Herman Watkins MD Primary Care Provider Reason for Visit Reason Comments Refill Request Encounter Details Date Type Department Care Team Description 03/11/[address] [facility] Richard patel, Harley Mares MD Refill Request - [address] [place] [address] [place] [address] [phone] Allergies No Known Allergiesdocumented as of this encounter (statuses as of 03/11/2020) Medications Medication Sig Dispensed Refills Start End Date Status Date ALBUTEROL SULFATE, 0 A ctive BULK, MISC chlorzoxazone 500 mg Take 1 tablet 1 Active tablet by mouth 3 7 (three) times daily before meals. cetirizine 10 mg tablet Take 1 tablet 30 tablet 6 Active by mouth 7 daily. acyclovir 400 mg tablet Take 1 tablet 30 tablet 0 Active by mouth 3 8 (three) times daily. clotrimazole-betamethas Apply to 45 g 1 Active one cream area(s) 2 8 (two) times daily. albuterol 2.5 mg /3 mL Inhale 3 mL 2 Box 11 Active (0.083 %) nebulizer every 4 8 solution (four) hours as needed for Wheezing or Shortness of Breath. albuterol sulfate Inhale 1 Puff 1 Each 11 Active (PROAIR RESPICLICK) 90 every 4 8 mcg/actuation AePB (four) hours as needed for Other (shortness of breath wheezing). atorvastatin 10 mg TAKE 1 TAB BY 90 tablet 1 Active tabletIndications: MOUTH AT 0 Hyperlipidemia, BEDTIME. unspecified hyperlipidemia type metoprolol succinate XL Take 1 tablet 90 tablet 1 Active 50 mg 24 hr by mouth 0 tabletIndications: daily. Essential hypertension ESCITALOPRAM OXALATE 20 TAKE 1 TABLET 90 tablet 2 Active mg tabletIndications: BY MOUTH 0 Depression, unspecified EVERY DAY depression type predniSONE 20 mg Take 1 tablet 5 tablet 0 Active tabletIndications: by mouth 0 Chronic back pain, daily. unspecified back location, unspecified back pain laterality azithromycin 500 mg Take 1 tablet 3 tablet 0 Active tabletIndications: by mouth 0 Rhinosinusitis daily. ZOLPIDEM 10 mg TAKE 1 TABLET 30 tablet 2 A ctive tabletIndications: BY MOUTH 0 Insomnia, unspecified EVERY DAY AT type BEDTIME NEEDED FOR INSOMNIA losartan 50 mg Take 1 tablet 30 tablet 2 A ctive tabletIndications: by mouth 0 Essential hypertension daily. hydroCHLOROthiazide Take 1 30 capsule 2 Active 12.5 mg capsule by 0 capsuleIndications: mouth daily. Essential hypertension fluticasone Inhale 1 28 Each 0 Active furoate-vilanterol Inhaler 0 (BREO ELLIPTA) 100-25 daily. mcg/dose DsDvIndications: Stage 3 severe COPD by GOLD classification OMEPRAZOLE 20 mg TAKE 1 90 capsule 0 Ac tive capsuleIndications: CAPSULE BY 0 Gastroesophageal reflux MOUTH EVERY disease, esophagitis DAY presence not specified OMEPRAZOLE 20 mg TAKE 1 90 capsule 0 03/11/20 Di scontinued capsuleIndications: CAPSULE BY 0 20 Gastroesophageal reflux MOUTH EVERY disease, esophagitis DAY presence not specified documented as of this encounter (statuses as of 03/11/2020) Active Problems Problem Noted Date Gastroesophageal reflux [...] as of this encounter (statuses as of 03/11/2020) Immunizations Name Administration Dates Next Due Influenza [...] DTaP,Tdap,and Td Vaccines (1 - Tdap) 1966 Depression Screening 1967 COLONOSCOPY 2005 LUNG CANCER SCREEN: Recommended for 2010 age 55-80 with 30 + pack year history Zoster Recombinant Vaccine 08/01/2017 06/06/2017 (SHINGRIX) (2 of 3) INFLUENZA VACCINE (#1) 2020 06/06/2017, 06/15/2016 Breast Cancer Screening (MAMMOGRAM) 10/25/2020 10/25/2019, 12/27/2017, 10/12/2016 PNEUMOCOCCAL 0-64 YEARS COMBINED Completed 06/06/2017, 01/2016 SERIES HEPATITIS C (HCV) SCREEN Completed 10/04/2017 PAP SMEAR Discontinued documented as of this encounter Results Not on filedocumented in this encounter Visit Diagnoses Diagnosis Gastroesophageal reflux disease, esophag itis presence not specified documented in this encounter Additional Health Concerns Infection Onset Date Last Indicated Resolved Time Contact- MRSA 05/16/2016 05/16/2016 documented as of this encounter Insurance Payer Benefit Plan Subscriber ID Effective Dates Phone Address Type / Group [facility] [employer] [id number] 2017-Zane [phone] [address] PPO/POS [facility] t 7 [id number] [place] [address] documented as of this encounter
--- OUTSIDE RECORDS SUMMARY | 2020-04-02 14:30 | XMS REPORT | Summary of Care ---
:1955 Author Organization [facility] Address [address] [place] [address] Care Team Providers Name Role Phone Herman Watkins MD Primary Care Provider Reason for Visit Reason Comments Refill Request Encounter Details Date Type Department Care Team Description 01/21/2020 Telephone [facility] Nancy Schumacher DO Refill Request Clinic [address] , [place] [address] [place] [address] [phone] Allergies No Known Allergiesdocumented as of this encounter (statuses as of 01/22/2020) Medications Medication Sig Dispensed Refills Start End [...] sulfate Inhale 1 Puff 1 Each 11 07/05/20 Active (PROAIR RESPICLICK) 90 every 4 18 mcg/actuation AePB (four) hours as needed for Other (shortness of breath wheezing). OMEPRAZOLE 20 mg TAKE 1 90 capsule [...] Active tabletIndications: by mouth 20 Rhinosinusitis daily. ZOLPIDEM 10 mg TAKE 1 TABLET 30 tablet 2 01/20/20 A ctive tabletIndications: BY MOUTH 20 Insomnia, unspecified EVERY DAY AT type BEDTIME NEEDED FOR INSOMNIA losartan 50 mg Take 1 tablet 30 tablet 2 01/20/20 A ctive tabletIndications: by mouth 20 Essential hypertension daily. hydroCHLOROthiazide Take 1 30 capsule 2 01/20/20 Active 12.5 mg capsule by 20 capsuleIndications: mouth daily. Essential hypertension fluticasone Inhale 1 28 Each 0 01/22/20 Active furoate-vilanterol Inhaler 20 (BREO ELLIPTA) 100-25 daily. mcg/dose DsDvIndications: Stage 3 severe COPD by GOLD classification fluticasone-vilanterol Inhale 1 28 Each 11 01/18/20 Discontinued (BREO ELLIPTA) 100-25 Inhaler 19 020 (Reorder) mcg/dose daily. DsDvIndications: Stage 3 severe COPD by GOLD classification documented as of this encounter (statuses as of 01/22/2020) Active Problems Problem Noted Date Gastroesophageal reflux [...] as of this encounter (statuses as of 01/22/2020) Immunizations Name Administration Dates Next Due Influenza [...] filedocumented in this encounter Visit Diagnoses Diagnosis Stage 3 severe COPD by GOLD classificati on documented in this encounter Additional Health Concerns Infection Onset Date Last Indicated Resolved Time Contact- MRSA 05/16/2016 05/16/2016 documented as of this encounter Insurance Payer Benefit Plan Subscriber ID Effective Dates Phone Address Type / Group [facility] [place] [employer] [id number] 2017-Zane [phone] [address] PPO/POS [facility] 7 [id number] [place] [address] documented as of this encounter
--- OUTSIDE RECORDS SUMMARY | 2020-04-02 14:30 | XMS REPORT | Summary of Care ---
:1955 Author Organization [facility] Address [address] [place] [address] Care Team Providers Name Role Phone Herman Watkins MD Primary Care Provider Reason for Visit Reason Comments Refill Request Encounter Details Date Type Department Care Team Description 01/16/2020 Refill [facility] Pediatric and Herman Watkins MD Refill Request Adult Primary Care- [address] [place] [address] [place] [address] , [address] [place] [address] Allergies No Known Allergiesdocumented as of this encounter (statuses as of 01/31/2020) Medications Medication Sig Dispensed Refills Start End [...] albuterol sulfate Inhale 1 Puff 1 Each Active (PROAIR RESPICLICK) every 4 8 90 mcg/actuation (four) hours AePB as needed for Other (shortness of breath wheezing). OMEPRAZOLE 20 mg TAKE 1 90 capsule 0 Ac tive capsuleIndications: CAPSULE BY 0 Gastroesophageal MOUTH EVERY reflux disease, DAY esophagitis presence not specified atorvastatin 10 mg TAKE 1 TAB BY 90 tablet 1 Active tabletIndications: MOUTH AT 0 Hyperlipidemia, BEDTIME. unspecified hyperlipidemia type metoprolol succinate Take 1 tablet 90 tablet 1 Active XL 50 mg 24 hr by mouth 0 tabletIndications: daily. Essential hypertension ESCITALOPRAM OXALATE TAKE 1 TABLET 90 tablet 2 Active 20 mg BY MOUTH 0 tabletIndications: EVERY DAY Depression, unspecified depression type predniSONE 20 mg Take 1 tablet 5 tablet 0 Active tabletIndications: by mouth 0 Chronic back pain, daily. unspecified back location, unspecified back pain laterality azithromycin 500 mg Take 1 tablet 3 tablet 0 Active tabletIndications: by mouth 0 Rhinosinusitis daily. fluticasone-vilanter Inhale 1 28 Each 01/22/20 Discontinued ol (BREO ELLIPTA) Inhaler 9 20 (R eorder) 100-25 mcg/dose daily. DsDvIndications: Stage 3 severe COPD by GOLD classification zolpidem 10 mg Take 1 tablet 30 tablet 2 01/20/20 D iscontinued tabletIndications: by mouth at 0 20 Insomnia, bedtime as unspecified type needed for Insomnia. losartan-hydrochloro Take 1 tablet 90 tablet 1 01/15 Discontinued thiazide 50-12.5 mg by mouth 0 20 (Reorder) per daily. tabletIndications: Essential hypertension losartan-hydrochloro Take 1 tablet 90 tablet 0 01/19 Discontinued thiazide 50-12.5 mg by mouth 0 20 (Availability) per daily. tabletIndications: Essential hypertension documented as of this encounter (statuses as of 01/31/2020) Active Problems Problem Noted Date Gastroesophageal reflux [...] as of this encounter (statuses as of 01/31/2020) Immunizations Name Administration Dates Next Due Influenza [...] Effective Dates Phone Address Type / Group [facility] [id number] 2017-Zane [phone] [address] PPO/POS [facility] 7 [id number] [place] [address] documented as of this encounter
--- OUTSIDE RECORDS SUMMARY | 2020-04-02 14:30 | XMS REPORT | Summary of Care ---
:1955 Author Organization [facility] - [facility] Address [address] [place] [address] Care Team Providers Name Role Phone Herman Watkins MD Primary Care Provider Reason for Referral (Routine) Status Reason Specialty Diagnoses / Referred By Referred To Procedures Contact Contact New Request Orthopedic Surgery Diagnoses Chronic back pain, unspecified back location, unspecified back pain laterality Norman Watkins Thomas L Procedures CONSULT/REFERRAL ORTHOPAEDIC SURGERY MD Herman II, [address] [place] [address] [place] [address] [place], [place] Phone: [phone] Phone: Reason for Visit Reason Comments Referral/consult Encounter Details Date Type Department Care Team Description 03/31/2020 Telephone [facility] Jono Watkins MD Referral/consult Medicine - [address] [place] [address] Dr kristie SINGH, [place] [phone] Allergies No Known Allergiesdocumented as of this encounter (statuses as of 04/01/2020) Medications Medication Sig Dispensed Refills Start Date [...] mg capsuleIndications: by mouth daily. Essential hypertension fluticasone Inhale 1 28 Each 0 01/22/2020 Active furoate-vilanterol (BREO Inhaler daily. ELLIPTA) 100-25 mcg/dose DsDvIndications: Stage 3 severe COPD by GOLD classification OMEPRAZOLE 20 mg TAKE 1 CAPSULE 90 capsule 0 03/11/2020 Active capsuleIndications: BY MOUTH EVERY Gastroesophageal reflux DAY disease, esophagitis presence not specified documented as of this encounter (statuses as of 04/01/2020) Active Problems Problem Noted Date Gastroesophageal reflux [...] as of this encounter (statuses as of 04/01/2020) Immunizations Name Administration Dates Next Due Influenza [...] filedocumented in this encounter Visit Diagnoses Diagnosis Chronic back pain, unspecified back loca tion, unspecified back pain laterality - Primary documented in this encounter Additional Health Concerns Infection Onset Date Last Indicated Resolved Time Contact- MRSA 05/16/2016 05/16/2016 documented as of this encounter Insurance Payer Benefit Plan Subscriber ID Effective Dates Phone Address Type / Group [facility] [id number] 2017-Zane [phone] [address] PPO/POS [place] [employer] t [id number] [place] [address] documented as of this encounter
[2020-04-02] MEDS ORDERED: ONDANSETRON 4 MG/2 ML VIAL ONE (14:45)
[2020-04-02 15:10] LABS: Absolute Lymphocytes (CBC) 1.1 K/uL (0.7-4.9); Basophils % 0.2 % (0-1.3); Hematocrit 44.4 % (36.0-45.0); Lymphocytes % 19.8 % (15.3-44.8); MPV 8.5 fL (7.6-11.3); RBC Red Blood Cell Count 4.86 M/uL (3.86-4.86)
[2020-04-02 15:11] LABS: Protime INR 1.05
[2020-04-02 15:25] LABS: ALT/SGPT 28 U/L (12-78); AST/SGOT 29 U/L (15-37); Albumin 3.5 g/dL (3.4-5.0); Alkaline Phosphatase 68 U/L (45-117); BUN Blood Urea Nitrogen 10 mg/dL (7-18); Bicarbonate 25 mmol/L (21-32); Bilirubin Direct 0.2 mg/dL (0-0.2); Bilirubin Total 0.6 mg/dL (0.2-1.0); Glucose Level 89 mg/dL (74-106); NT PRO-BNP 121 pg/mL (<125); Potassium 3.5 mmol/L (3.5-5.1); Protein, Total 7.3 g/dL (6.4-8.2); Sodium Level 137 mmol/L (136-145); Troponin (Emerg Dept Use Only) < 0.02 ng/mL (0.0-0.045)
--- NOTE | 2020-04-02 16:20 | RAD REPORT ---
EXAM DESCRIPTION: CT - Chest For Pe Angio - 04/02/2020 3:52 pm CLINICAL HISTORY: Chest pain COMPARISON: November 1999 TECHNIQUE: Dynamically enhanced axial 3 mm thick images of the chest were obtained during administra tion of <100> mL Isovue 370 IV contrast. Coronal and oblique reconstruction images were generated and reviewed. Exam utilizes a protocol for optimal evaluation of pulmonary arterial tree. Maximum intensity projections 3D imaging was utilized All CT scans are performed using dose optimization technique as appropriate and may include automated exposure control or mA/KV adjustment according to patient size. FINDINGS: A pulmonary embolus is not seen. A thoracic aortic aneurysm is not noted. A pleural effusion is not seen. A pericardial effusion is not seen. Centrilobular emphysema. Few areas of scarring are seen within the lungs. IMPRESSION: Negative for a pulmonary embolism.
--- NOTE | 2020-04-02 16:31 | EDPHYS ---
Physician Documentation [facility] Name: Amanda Malik Age: 64 yrs Sex: Female : 1955 Arrival Date: 04/02/2020 Time: 14:21 Bed 4 Private MD: Herman Watkins S ED Physician Jorden Mendoza HPI: 04/02 14:40 This 64 yrs old Female presents to ER via Wheelchair with complaints of jmm Nausea, Passed Out Prior To Arrival. 14:40 The patient presents to the emergency department with nausea, vomiting. Onset: The jmm symptoms/episode began/occurred gradually, 1 week(s) ago. Possible causes: unknown. The symptoms are aggravated by nothing. The symptoms are alleviated by nothing. This is a 64year old female with a history of COPD, HLP, HTN that presents to the ED with complaints of a syncopal episode which occurred while at her PCP. Patient states she had been having ongoing nausea this past week with multiple episodes of vomiting. Denies abdominal pain or diarrhea. Patient states she collapsed while standing. . Historical: - Allergies: 14:32 No Known Allergies; ss - PMHx: 14:32 COPD; High Cholesterol; Hypertension; GERD; ss - PSHx: 14:32 back; neck; ss - Immunization history:: Adult Immunizations unknown. - Social history:: Smoking status: Patient/guardian denies using tobacco, but has a distant history of tobacco abuse. ROS: 14:40 Constitutional: Negative for fever, chills, and weight loss, Cardiovascular: Negative jmm for chest pain, palpitations, and edema, Respiratory: Negative for shortness of breath, cough, wheezing, and pleuritic chest pain. 14:40 Abdomen/GI: Positive for nausea and vomiting. 14:40 Neuro: Positive for loss of consciousness, syncope. 14:40 All other systems are negative. Exam: 14:40 Constitutional: This is a well developed, well nourished patient who is awake, alert, jmm and in no acute distress. Head/Face: atraumatic. Eyes: EOMI, no conjunctival erythema appreciated ENT: Moist Mucus Membranes Neck: Trachea midline, Supple Chest/axilla: Normal chest wall appearance and motion. Cardiovascular: Regular rate and rhythm. No edema appreciated Respiratory: Normal respirations, no respiratory distress appreciated Abdomen/GI: Non distended, soft Back: Normal ROM Skin: General appearance color normal MS/ Extremity: Moves all extremities, no obvious deformities appreciated, no edema noted to the lower extremities Neuro: Awake and alert, normal gait Psych: Behavior is normal, Mood is normal, Patient is cooperative and pleasant 14:40 ECG was reviewed by the Attending Physician. Vital Signs: 14:30 BP 114 / 71; Pulse 101; Resp 19; Temp 98.7(TE); Pulse Ox 92% on R/A; Weight 58.97 kg; ss Height 5 ft. 0 in. (152.40 cm); Pain 0/10; 15:54 BP 100 / 57; Pulse 90; Resp 18; Pulse Ox 95% ; ll1 17:22 BP 106 / 64; Pulse 90; Resp 18; Pulse Ox 95% on R/A; ll1 17:42 BP 92 / 58; Pulse 90; Resp 18; Temp 97.9; Pulse Ox 95% ; ll1 18:12 BP 105 / 65; Pulse 100; Resp 18; Pulse Ox 98% on R/A; ll1 19:30 BP 95 / 58; Pulse 104; Resp 20; Temp 98.3; Pulse Ox 92% ; rr5 19:47 BP 96 / 62; Pulse 103; Resp 19; Pulse Ox 92% on R/A; rr5 14:30 Body Mass Index 25.39 (58.97 kg, 152.40 cm) ss MDM: 14:33 Patient medically screened. [facility] 16:29 Data reviewed: vital signs, nurses notes. Counseling: I had a detailed discussion with [facility] the patient and/or guardian regarding: the historical points, exam findings, and any diagnostic results supporting the discharge/admit diagnosis, lab results, radiology results, the need for further work-up and treatment in the hospital. ED course: I discussed the patient with Jitendra Nunes whom accepted the patient to Dr. Montgomery's service. . 04/02 14:25 Order name: Basic Metabolic Panel; Complete Time: 15:30 [facility] 04/02 14:25 Order name: CBC with Diff [facility] 04/02 14:25 Order name: LFT's; Complete Time: 15:30 [facility] 04/02 14:25 Order name: Magnesium; Complete Time: 15:30 [facility] 04/02 14:25 Order name: NT PRO-BNP; Complete Time: 15:30 [facility] 04/02 14:25 Order name: PT-INR; Complete Time: 15:30 [facility] 04/02 14:25 Order name: Troponin (emerg Dept Use Only); Complete Time: 15:30 [facility] 04/02 17:19 Order name: Urine Dipstick--Ancillary (enter results) bd 04/02 17:26 Order name: CBC with Automated Diff [facility] 04/02 17:26 Order name: CBC with Automated Diff [facility] 04/02 17:26 Order name: Comprehensive Metabolic Panel [facility] 04/02 17:26 Order name: Comprehensive Metabolic Panel [facility] 04/02 17:26 Order name: Magnesium [facility] 04/02 17:26 Order name: Magnesium [facility] 04/02 14:25 Order name: XRAY Chest (1 view); Complete Time: 16:46 [facility] 04/02 14:25 Order name: EKG; Complete Time: 14:26 [facility] 04/02 14:25 Order name: Cardiac monitoring; Complete Time: 14:33 [facility] 04/02 14:25 Order name: EKG - Nurse/Tech; Complete Time: 14:33 [facility] 04/02 14:25 Order name: IV Saline Lock; Complete Time: 14:33 [facility] 04/02 14:25 Order name: Labs collected and sent; Complete Time: 14:33 [facility] 04/02 14:25 Order name: O2 Per Protocol; Complete Time: 14:33 [facility] 04/02 15:31 Order name: CT Chest For PE Angio; Complete Time: 16:25 [facility] 04/02 15:31 Order name: CT Abd/Pelvis - IV Contrast Only; Complete Time: 16:46 [facility] 04/02 17:26 Order name: Heart Healthy [facility] 04/02 17:26 Order name: Phosphorus [facility] 04/02 17:26 Order name: Phosphorus [facility] 04/02 17:30 Order name: Echo with Doppler [facility] 04/02 17:30 Order name: Carotid Artery Bilateral [facility] 04/02 19:40 Order name: CBC Smear Scan [facility] 04/02 14:25 Order name: O2 Sat Monitoring; Complete Time: 14:33 [facility] 04/02 14:34 Order name: Urine Dipstick-Ancillary (obtain specimen); Complete Time: 19:01 jm EC:40 Rate is 99 beats/min. Rhythm is regular. QRS [place] is Normal. MA interval is normal. QRS jmm interval is normal. QT interval is normal. No Q waves. T waves are Flattened in leads III, aVF, V1, V2, V3. ST Segment is depressed in leads V4, V5, V6, <1mm. Reviewed by me. Administered Medications: 14:44 Drug: Zofran (Ondansetron) 4 mg Route: IVP; Site: right antecubital; ll1 15:57 Follow up: Response: No adverse reaction; RASS: Alert and Calm (0) ll1 Disposition: 04/03 07:28 Co-signature as Attending Physician, Jorden Mendoza MD I agree with the assessment and kdr plan of care. Disposition: 04/02/20 16:30 Hospitalization ordered by Keagan Montgomery for Observation. Preliminary diagnosis are Syncope and collapse, Abnormal EKG. - Bed requested for Telemetry/MedSurg (observation). - Status is Observation. rr5 - Condition is Stable. - Problem is new. - Symptoms are unchanged. Signatures: Dispatcher [employer] EDMS Jacinda Valerio Kevin, MD MD [facility] Obdulio Rondon PA PA [facility] Reina Xiong RN RN Jorge Brasher RN RN rr5 aGbi Sandhu RN RN ll1 Corrections: (The following items were deleted from the chart) 04/02 18:49 16:30 Hospitalization Ordered by Keagan Montgomery MD for Observation. Preliminary bd diagnosis is Syncope and collapse; Abnormal EKG. Bed requested for Telemetry/MedSurg (observation). Status is Observation. Condition is Stable. Problem is new. Symptoms are unchanged. [facility] 20:15 18:49 04/02/2020 16:30 Hospitalization Ordered by Keagan Montgomery MD for Observation. rr5 Preliminary diagnosis is Syncope and collapse; Abnormal EKG. Bed requested for Telemetry/MedSurg (observation). Status is Observation. Condition is Stable. Problem is new. Symptoms are unchanged. bd
--- NOTE | 2020-04-02 16:31 | ER ---
Nurse's Notes [facility] Name: Amanda Malik Age: 64 yrs Sex: Female : 1955 Arrival Date: 04/02/2020 Time: 14:21 Bed 4 Private MD: Herman Watkins S Diagnosis: Syncope and collapse;Abnormal EKG Presentation: 04/02 14:30 Chief complaint: Patient states: N/V x 1 week. Pt reports that she was at a doctor's ss appointment and had a syncopal episode. Coronavirus screen: Patient denies a cough. Patient denies shortness of breath or difficulty breathing. Patient denies measured and/or subjective temperature greater than 100.4F prior to today's visit. Patient denies travel on a cruise ship or to a country the [facility] currently lists as an affected area. Patient denies contact with known and/or suspected case of COVID-19. Proceed with normal triage. Patient instructed to continue to wear a mask when interacting with others. Patient moved to private room, placed in contact and droplet isolation with eye protection until further assessment. Ebola Screen: Patient denies exposure to infectious person. Patient denies travel to an Ebola-affected area in the 21 days before illness onset. Initial Sepsis Screen: Does the patient meet any 2 criteria? No. Patient's initial sepsis screen is negative. Does the patient have a suspected source of infection? No. Patient's initial sepsis screen is negative. Risk Assessment: Do you want to hurt yourself or someone else? Patient reports no desire to harm self or others. Onset of symptoms was March 26, 2020. 14:30 Method Of Arrival: Wheelchair ss 14:30 Acuity: EMILY 3 ss Historical: - Allergies: 14:32 No Known Allergies; ss - PMHx: 14:32 COPD; High Cholesterol; Hypertension; GERD; ss - PSHx: 14:32 back; neck; ss - Immunization history:: Adult Immunizations unknown. - Social history:: Smoking status: Patient/guardian denies using tobacco, but has a distant history of tobacco abuse. Screenin:51 Abuse screen: Denies threats or abuse. Nutritional screening: No deficits noted. ll1 Tuberculosis screening: No symptoms or risk factors identified. Fall Risk No fall in past 12 months (0 pts). IV access (20 points). Ambulatory Aid- Crutches/Cane/Walker (15 pts). Gait- Weak (10 pts.). Total Chaudhari Fall Scale indicates High Risk Score (45 or more points). Fall prevention measures have been instituted. Side Rails Up X 2 Frequent Obs/Assessments Occuring As available patient and family educated on Fall Prevention Program and Strategies. Assessment: 14:50 General: Appears ill, Behavior is calm, cooperative. Pain: Denies pain. Neuro: Level of ll1 Consciousness is awake, alert, obeys commands, Oriented to person, place, time, situation, Appropriate for age Insights Manager are equal bilaterally Moves all extremities. Full function Gait is steady, Speech is normal, Facial symmetry appears normal, Pupils are PERRLA, Reports a syncopal episode. Cardiovascular: No deficits noted. Respiratory: No deficits noted. Denies cough. GI: Abdomen is flat, Bowel sounds present X 4 quads. Abd is soft and non tender Reports cramping, diarrhea, nausea, vomiting. : No deficits noted. 15:50 Reassessment: Patient appears in no apparent distress at this time. No changes from ll1 previously documented assessment. Patient and/or family updated on plan of care and expected duration. Pain level reassessed. Patient is alert, oriented x 3, equal unlabored respirations, skin warm/dry/pink. 16:50 Reassessment: Patient appears in no apparent distress at this time. No changes from ll1 previously documented assessment. Patient and/or family updated on plan of care and expected duration. Pain level reassessed. Patient is alert, oriented x 3, equal unlabored respirations, skin warm/dry/pink. 17:50 Reassessment: Patient appears in no apparent distress at this time. No changes from ll1 previously documented assessment. Patient and/or family updated on plan of care and expected duration. Pain level reassessed. Patient is alert, oriented x 3, equal unlabored respirations, skin warm/dry/pink. 18:50 Reassessment: Patient appears in no apparent distress at this time. No changes from jb4 previously documented assessment. Patient and/or family updated on plan of care and expected duration. Pain level reassessed. Patient is alert, oriented x 3, equal unlabored respirations, skin warm/dry/pink. 19:00 Reassessment: Patient appears in no apparent distress at this time. Patient and/or jb4 family updated on plan of care and expected duration. Pain level reassessed. Patient is alert, oriented x 3, equal unlabored respirations, skin warm/dry/pink. Vital Signs: 14:30 BP 114 / 71; Pulse 101; Resp 19; Temp 98.7(TE); Pulse Ox 92% on R/A; Weight 58.97 kg; ss Height 5 ft. 0 in. (152.40 cm); Pain 0/10; 15:54 BP 100 / 57; Pulse 90; Resp 18; Pulse Ox 95% ; ll1 17:22 BP 106 / 64; Pulse 90; Resp 18; Pulse Ox 95% on R/A; ll1 17:42 BP 92 / 58; Pulse 90; Resp 18; Temp 97.9; Pulse Ox 95% ; ll1 18:12 BP 105 / 65; Pulse 100; Resp 18; Pulse Ox 98% on R/A; ll1 19:30 BP 95 / 58; Pulse 104; Resp 20; Temp 98.3; Pulse Ox 92% ; rr5 19:47 BP 96 / 62; Pulse 103; Resp 19; Pulse Ox 92% on R/A; rr5 14:30 Body Mass Index 25.39 (58.97 kg, 152.40 cm) ED Course: 14:21 Patient arrived in ED. mr 14:21 Herman Watkins MD is Private Physician. mr 14:23 Gabi Sandhu, RN is Primary Nurse. ll1 14:24 Obdulio Rondon PA is PHCP. jmm 14:32 Triage completed. ss 14:32 Arm band placed on right wrist. ss 14:39 XRAY Chest (1 view) In Process Unspecified. EDMS 14:51 Patient has correct armband on for positive identification. Bed in low position. Call ll1 light in reach. Side rails up X2. Pulse ox on. NIBP on. 15:52 CT Chest For PE Angio In Process Unspecified. EDMS 15:53 CT Abd/Pelvis - IV Contrast Only In Process Unspecified. EDMS 16:30 Keagan Montgomery MD is Hospitalizing Provider. jmm 17:20 Jorden Mendoza MD is Attending Physician. kdr 19:00 Inserted saline lock: 22 gauge in right antecubital area, using aseptic technique. rr5 ,using aseptic technique. inserted from AM shift. 19:49 No provider procedures requiring assistance completed. Patient admitted, IV remains in rr5 place. intact, No redness/swelling at site. Administered Medications: 14:44 Drug: Zofran (Ondansetron) 4 mg Route: IVP; Site: right antecubital; ll1 15:57 Follow up: Response: No adverse reaction; RASS: Alert and Calm (0) ll1 Outcome: 16:30 Decision to Hospitalize by Provider. destiny 19:49 Admitted to Med/surg accompanied by tech, via stretcher, room 201, with chart, Report rr5 called to antonio 19:49 Condition: stable 19:49 Instructed on the need for admit. 20:15 Patient left the ED. rr5 Signatures: Dispatcher [employer] EDMS Jorden Mendoza MD MD kdr Mickail, Joel, PA PA [facility] Rico, Dorina XiongReina, RN RN ss Harley Sanchez RN RN jb4 Jorge Brasher RN RN rr5 Gabi Sandhu RN RN ll1
--- NOTE | 2020-04-02 16:33 | RAD REPORT ---
EXAM DESCRIPTION: CT - Abdomen Pelvis W Contrast - 04/02/2020 3:52 pm CLINICAL HISTORY: Abdominal pain COMPARISON: 2016 TECHNIQUE: Computed axial tomography of the abdomen pelvis was obtained. 100 cc Isovue-300 was admin istered intravenously. Oral contrast was not requested which limits evaluation of bowel. All CT scans are performed using dose optimization technique as appropriate and may include automated exposure control or mA/KV adjustment according to patient size. FINDINGS: A small hiatal hernia The liver, spleen, pancreas, adrenal and left kidney appear unremarkable. Right renal cortical thinning Endovascular graft has been placed into an abdominal aortic aneurysm. The graft is patent. No retrope ritoneal hematoma Postsurgical changes involve lumbar spine. No evidence of diverticulitis IMPRESSION: No acute abnormality is displayed.
--- NOTE | 2020-04-02 16:40 | RAD REPORT ---
EXAM DESCRIPTION: Raheem Single View04/02/2020 2:39 pm CLINICAL HISTORY: Chest pain COMPARISON: 2014 FINDINGS: Lungs are hyperaerated The lungs appear clear of acute infiltrate. The heart is normal size IMPRESSION: No acute abnormalities displayed
--- NOTE | 2020-04-02 17:19 | P.HP ---
Certification for Inpatient Patient admitted to: Observation With expected LOS: <2 Midnights Patient will require the following post-hospital care: None Practitioner: I am a practitioner with admitting privileges, knowledge of patient current condition, hospital course, and medical plan of care. Services: Services provided to patient in accordance with Admission requirements found in Title 42 Section 412.3 of the Code of Federal Regulations Patient History Date of Service: 04/02/20 Reason for admission: Syncope History of Present Illness: 64year old female with a history of COPD, hypertension, hyperlipidemia, history of AAA repair came with syncopal episode . She states that she has been sick having nausea and vomiting and diarrhea for the last 1 week. She was in Dr. Back Office for follow up when all of a sudden she collapsed. Lasted for a few seconds. Denies any chest pain or palpitation, no fever or chills . Denies any recent travel or sick contacts No fever but associated with chills Denies any cough or shortness of breath No exposure to COVID 19 Patient was assessed in the ER and was admitted for further management 1 Allergies No Known Drug Allergies Allergy (Verified 06/13/19 09:51) Unknown No Known Allergies Allergy (Uncoded 02/28/19 23:32) Unknown Home medications list reviewed: Yes Home Medications: Atorvastatin Calcium [Lipitor*] 10 mg PO BEDTIME 05/21/16 Metoprolol Succinate [Toprol Xl*] 50 mg PO BEDTIME 05/21/16 Tiotropium [Spiriva Handihaler*] 1 cap IN DAILY 05/21/16 Escitalopram Oxalate 10 mg PO BEDTIME 02/28/19 Fluticasone/Vilanterol [Breo Ellipta 200-25 Mcg INH] 1 each IH BEDTIME 02/28/19 Omeprazole 20 mg PO BEDTIME 02/28/19 Zolpidem Tartrate [Ambien] 10 mg PO BEDTIME 02/28/19 Cyclobenzaprine HCl 10 mg PO TID 11/30/19 Ipratropium/Albuterol Sulfate [Iprat-Albut 0.5-3(2.5) mg/3 ml] 3 ml IH QIDP PRN 11/30/19 predniSONE [Deltasone*] 1 tab PO DAILY 11/30/19 Azithromycin Tab [Zithromax*] 250 mg PO ZPAK #1 roman 12/01/19 predniSONE [Prednisone*] 20 mg PO BID #14 tab 12/01/19 - Past Medical/Surgical History Diabetic: No Past Medical History: Reviewed- Non-Contributory -: Hyperlipidemia -: Hypertension -: GERD -: Depression -: COPD -: History of abdominal aortic aneurysm, status post stent Past Surgical History: Reviewed- Non-Contributory -: Abdominal aortic aneurysm stent -: Cholecystectomy -: Appendectomy -: Hysterectomy -: Tonsillectomy -: Bladder suspension -: Shoulder Surgery -: Back Surgery Psychosocial/ Personal History: She is , has 3 children, 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 - Family History Family History: Reviewed- Non-Contributory - Family History Sister -: Cancer Father -: Heart disease, Lung disease, Diabetes Mother -: Other (see notes) Notes: COPD Osteoporosis - Social History Smoking Status: Never smoker Alcohol use: Yes CD- Drugs: No Caffeine use: Yes Review of Systems 10-point ROS is otherwise unremarkable Physical Examination - Vital Signs Temperature: 98.4 F Blood Pressure: 146/85 Pulse: 78 Respirations: 18 - Physical Exam General: Alert, In no apparent distress, Oriented x3 HEENT: Atraumatic, Normocephalic Neck: Supple, 2+ carotid pulse no bruit Respiratory: Clear to auscultation bilaterally, Normal air movement Cardiovascular: Regular rate/rhythm, Normal S1 S2 Capillary refill: <2 Seconds Gastrointestinal: Soft and benign, W/out hepatosplenomegaly Musculoskeletal: No clubbing, No swelling Integumentary: No rashes, No breakdown Neurological: Normal speech, Normal strength at 5/5 x4 extr Lymphatics: No axilla or inguinal lymphadenopathy - Studies Laboratory Data (last 24 hrs) 04/02/20 14:40: PT 12.4, INR 1.05 04/02/20 14:40: WBC 5.4, Hgb 14.8, Hct 44.4, Plt Count 227 04/02/20 14:40: Sodium 137, Potassium 3.5, BUN 10, Creatinine 0.65, Glucose 89, Magnesium 2.0, Total Bilirubin 0.6, AST 29, ALT 28, Alkaline Phosphatase 68 Assessment and Plan - Problems (Diagnosis) (1) Syncope Current Visit: Yes Status: Acute (2) COPD (chronic obstructive pulmonary disease) Current Visit: No Status: Chronic Qualifiers: COPD type: COPD with acute exacerbation Qualified Code(s): J44.1 - Chronic obstructive pulmonary disease with (acute) exacerbation (3) Depression with anxiety Current Visit: No Status: Chronic (4) GERD (gastroesophageal reflux disease) Current Visit: No Status: Chronic Qualifiers: Esophagitis presence: esophagitis presence not specified Qualified Code(s): K21.9 - Gastro-esophageal reflux disease without esophagitis (5) History of abdominal aortic aneurysm (AAA) repair Current Visit: No Status: Chronic (6) Hyperlipidemia Current Visit: No Status: Chronic Qualifiers: Hyperlipidemia type: unspecified Qualified Code(s): E78.5 - Hyperlipidemia, unspecified (7) Hypertension Current Visit: No Status: Chronic Qualifiers: Hypertension type: essential hypertension Qualified Code(s): I10 - Essential (primary) hypertension - Advance Directives Does patient have a Living Will: No Does patient have a Durable POA for Healthcare: No Physician Review Additional Text: Syncope Hypertension Hyperlipidemia History of AAA status post repair Dehydration Anxiety Plan Monitor under telemetry IV hydration Covid 19 Continue home medications and titrate as needed Will get a syncopal workup That echocardiogram carotid Doppler, get a CT of the brain CT of the abdomen pelvis findings noted no acute changes GI/DVT prophylaxis Advanced directives full code Time Spent Managing Pts Care (In Minutes): 46
[2020-04-02] MEDS ORDERED: ACETAMINOPHEN 500 MG TAB PO PRN (17:22)
[2020-04-02 17:58] LABS: Urine Blood NEGATIVE (NEG); Urine Glucose NEGATIVE (NEG); Urine Protein NEGATIVE (NEG); Urine Specific Gravity <1.005 (1.005-1.030); Urine pH 5.5 (5.0-7.0)
--- NOTE | 2020-04-02 18:58 | RAD REPORT ---
EXAM DESCRIPTION: USCarotid Artery Bilateral04/02/2020 6:32 pm CLINICAL HISTORY: syncope COMPARISON: None FINDINGS: The velocity of the right internal carotid artery equals 78 cm/sec. The right ICA/CCA rati o 1.4 The velocity of the left internal carotid artery equals 63 cm/sec. The left ICA/CCA ratio .8 Left carotid artery is tortuous Mild plaque is present within the carotid arteries. The vertebral arteries demonstrate antegrade flow IMPRESSION: Mild plaque within the carotid arteries without evidence of a hemodynamically significan t stenosis NASCET criteria used. Mild 0-49% stenosis Moderate 50-69% stenosis Severe 70-99% stenosis
[2020-04-02 19:39] LABS: Blood Morphology Comment NOT SEEN (NOT SEEN); Platelet Estimate ADEQ; Urine White Blood Cell Casts OK
[2020-04-02] MEDS: ONDANSETRON 4 MG/2 ML VIAL IV PRN (20:54)
[2020-04-02] MEDS ORDERED: HOME MED 1 EA UNK (Fluticasone/Vilanterol [Breo Ellipta 200-25 Mcg Inh] 1 EACH) IH SCH (21:00)
[2020-04-02] MEDS: METOPROLOL XL 50 MG TAB PO SCH (21:00)
[2020-04-02] MEDS ORDERED: ESCITALOPRAM OXALATE 10 MG PO SCH (21:00)
[2020-04-02] MEDS ORDERED: HOME MED 1 EA UNK (Omeprazole [Omeprazole] 20 MG) PO SCH (21:00)
[2020-04-02] MEDS ORDERED: CYCLOBENZAPRINE 10 MG TAB PO SCH (21:00)
[2020-04-02] MEDS: NA CHLORIDE 0.9% 1,000 ML IV SCH (21:47)
[2020-04-02 22:10] VITALS: BMI 25.4
[2020-04-02] MEDS: ZOLPIDEM TARTRATE 10 MG TABLET PO SCH (22:56)
[2020-04-02] MEDS: ATORVASTATIN 10 MG TAB PO SCH (22:56)
[2020-04-02] MEDS: PANTOPRAZOLE 40MG TABLET PO SCH (22:56)
[2020-04-02] MEDS: ESCITALOPRAM 20 MG TAB PO SCH (22:57)
[2020-04-03] MEDS: NA CHLORIDE 0.9% 1,000 ML IV SCH ×3 (04:00→13:57)
[2020-04-03 05:29] LABS: Absolute Lymphocytes (CBC) 1.2 K/uL (0.7-4.9); Basophils % 0.7 % (0-1.3); Hematocrit 39.7 % (36.0-45.0); Lymphocytes % 29.7 % (15.3-44.8); MPV 8.3 fL (7.6-11.3); RBC Red Blood Cell Count 4.32 M/uL (3.86-4.86)
[2020-04-03 06:07] LABS: ALT/SGPT 25 U/L (12-78); AST/SGOT 22 U/L (15-37); Albumin 2.8 g/dL (3.4-5.0); Alkaline Phosphatase 57 U/L (45-117); BUN Blood Urea Nitrogen 9 mg/dL (7-18); Bicarbonate 28 mmol/L (21-32); Bilirubin Total 0.4 mg/dL (0.2-1.0); Glucose Level 89 mg/dL (74-106); Magnesium 1.8 mg/dL (1.8-2.4); Phosphorus 2.9 mg/dL (2.5-4.9); Potassium 3.4 mmol/L (3.5-5.1); Sodium Level 141 mmol/L (136-145)
[2020-04-03] MEDS ORDERED: POTASSIUM CL SA 10 MEQ TAB PO ONE (06:10)
[2020-04-03] MEDS ORDERED: MAGNESIUM SULFATE 1 gm IVPB 1 GM/100 ML BAG IV ONE (06:11)
[2020-04-03] MEDS: ONDANSETRON 4 MG/2 ML VIAL IV PRN (07:36)
[2020-04-03 08:48] LABS: Blood Morphology Comment NOT SEEN (NOT SEEN); Platelet Estimate ADEQ
--- NOTE | 2020-04-03 12:04 | P.PN ---
Subjective Date of Service: 04/03/20 Chief Complaint: Syncope , Nausea Subjective: No new changes Review of Systems 10-point ROS is otherwise unremarkable Physical Examination - Vital Signs Temperature: 97.3 F Blood Pressure: 110/59 Pulse: 91 Respirations: 18 Pulse Ox (%): 87 - Physical Exam General: Alert, In no apparent distress HEENT: Atraumatic, Normocephalic Neck: Supple Respiratory: Clear to auscultation bilaterally, Normal air movement Cardiovascular: Normal pulses, Regular rate/rhythm Capillary refill: <2 Seconds Gastrointestinal: Soft and benign, W/out hepatosplenomegaly Musculoskeletal: No clubbing, No swelling Integumentary: No significant lesion, No tenderness/swelling Neurological: Normal speech, Normal strength at 5/5 x4 extr Lymphatics: No axilla or inguinal lymphadenopathy - Studies Laboratory Data (last 24 hrs) 04/02/20 14:40: PT 12.4, INR 1.05 04/02/20 14:40: WBC 5.4, Hgb 14.8, Hct 44.4, Plt Count 227 04/02/20 14:40: Sodium 137, Potassium 3.5, BUN 10, Creatinine 0.65, Glucose 89, Magnesium 2.0, Total Bilirubin 0.6, AST 29, ALT 28, Alkaline Phosphatase 68 Assessment & Plan - Problems (Diagnosis) (1) Syncope Current Visit: Yes Status: Acute (2) COPD (chronic obstructive pulmonary disease) Current Visit: No Status: Chronic Qualifiers: COPD type: COPD with acute exacerbation Qualified Code(s): J44.1 - Chronic obstructive pulmonary disease with (acute) exacerbation (3) Depression with anxiety Current Visit: No Status: Chronic (4) GERD (gastroesophageal reflux disease) Current Visit: No Status: Chronic Qualifiers: Esophagitis presence: esophagitis presence not specified Qualified Code(s): K21.9 - Gastro-esophageal reflux disease without esophagitis (5) History of abdominal aortic aneurysm (AAA) repair Current Visit: No Status: Chronic (6) Hyperlipidemia Current Visit: No Status: Chronic Qualifiers: Hyperlipidemia type: unspecified Qualified Code(s): E78.5 - Hyperlipidemia, unspecified (7) Hypertension Current Visit: No Status: Chronic Qualifiers: Hypertension type: essential hypertension Qualified Code(s): I10 - Essential (primary) hypertension Physician Review Additional Text: Syncope Hypertension Hyperlipidemia History of AAA status post repair Dehydration Anxiety Plan Monitor under telemetry IV hydration Covid 19 test Continue home medications and titrate as needed syncopal workup echocardiogram pending carotid Doppler no acute stenosis CT of the brain CT of the abdomen pelvis findings noted no acute changes Patient still continues to have nausea PT eval appreciated No orthostatics changes GI/DVT prophylaxis Advanced directives full code Time Spent Managing Pts Care (In Minutes): 38
[2020-04-03 13:18] LABS: Urine Appearance CLEAR; Urine Bilirubin NEGATIVE (NEG); Urine Blood NEGATIVE (NEG); Urine Color YELLOW; Urine Glucose NEGATIVE (NEG); Urine Protein NEGATIVE (NEG); Urine Urobilinogen 0.2 mg/dL (0.2-1.0); Urine pH 5.5 (5.0-7.0)
[2020-04-03 13:25] LABS: Urine Microscopic Reflex NO UMIC
--- NOTE | 2020-04-03 15:27 | EKG ---
Test Date: 2020-04-02 Test Time: 14:33:48 Echo Technician: JUSTIN MEASUREMENT RESULTS: Intervals: Rate: 99 NH: 112 QRSD: 68 QT: 334 QTc: 428 [place]: P: 58 NH: 112 QRS: 69 T: 83 INTERPRETIVE STATEMENTS: Normal sinus rhythm ST & T wave abnormality, consider lateral ischemia Abnormal ECG Compared to ECG 02/28/2019 18:39:25 ST (T wave) deviation now present Possible ischemia now present Short NH interval no longer present Electronically Signed On 04-03-20 15:24:21 CDT by Baldemar Nunez
[2020-04-03] MEDS: METOPROLOL XL 50 MG TAB PO SCH (20:26)
[2020-04-03] MEDS: PANTOPRAZOLE 40MG TABLET PO SCH (20:26)
[2020-04-03] MEDS: ZOLPIDEM TARTRATE 10 MG TABLET PO SCH (20:27)
[2020-04-03] MEDS: ESCITALOPRAM 20 MG TAB PO SCH (20:27)
[2020-04-03] MEDS: ATORVASTATIN 10 MG TAB PO SCH (20:27)
[2020-04-04] MEDS: NA CHLORIDE 0.9% 1,000 ML IV SCH (01:25)
[2020-04-04 05:23] VITALS: TEMP 98.1
[2020-04-04 06:24] LABS: Absolute Lymphocytes (CBC) 1.3 K/uL (0.7-4.9); Basophils % 0.8 % (0-1.3); Hematocrit 34.1 % (36.0-45.0); Lymphocytes % 26.5 % (15.3-44.8); MPV 8.5 fL (7.6-11.3); RBC Red Blood Cell Count 3.72 M/uL (3.86-4.86)
[2020-04-04 06:30] LABS: ALT/SGPT 19 U/L (12-78); AST/SGOT 20 U/L (15-37); Albumin 2.5 g/dL (3.4-5.0); Alkaline Phosphatase 52 U/L (45-117); BUN Blood Urea Nitrogen 6 mg/dL (7-18); Bicarbonate 25 mmol/L (21-32); Bilirubin Total 0.3 mg/dL (0.2-1.0); Glucose Level 91 mg/dL (74-106); Magnesium 1.9 mg/dL (1.8-2.4); Protein, Total 5.4 g/dL (6.4-8.2); Sodium Level 142 mmol/L (136-145)
[2020-04-04 08:21] VITALS: O2SAT 91
[2020-04-04 09:05] LABS: Blood Morphology Comment NOT SEEN (NOT SEEN); Platelet Estimate ADEQ; Urine White Blood Cell Casts OK
[2020-04-04 09:42] VITALS: BP 99/65
--- NOTE | 2020-04-04 10:38 | P.DS ---
Admission Date: 04/02/20 Discharge Date: 04/04/20 Disposition: ROUTINE DISCHARGE Discharge Condition: GOOD Reason for Admission: Syncope , Nausea - Problems (1) Syncope Status: Acute (2) COPD (chronic obstructive pulmonary disease) Status: Chronic Qualifiers: COPD type: COPD with acute exacerbation Qualified Code(s): J44.1 - Chronic obstructive pulmonary disease with (acute) exacerbation (3) Depression with anxiety Status: Chronic (4) GERD (gastroesophageal reflux disease) Status: Chronic Qualifiers: Esophagitis presence: esophagitis presence not specified Qualified Code(s): K21.9 - Gastro-esophageal reflux disease without esophagitis (5) History of abdominal aortic aneurysm (AAA) repair Status: Chronic (6) Hyperlipidemia Status: Chronic Qualifiers: Hyperlipidemia type: unspecified Qualified Code(s): E78.5 - Hyperlipidemia, unspecified (7) Hypertension Status: Chronic Qualifiers: Hypertension type: essential hypertension Qualified Code(s): I10 - Essential (primary) hypertension Brief History of Present Illness: 64year old female with a history of COPD, hypertension, hyperlipidemia, history of AAA repair came with syncopal episode . She states that she has been sick having nausea and vomiting and diarrhea for the last 1 week. She was in Dr[address] Back Office for follow up when all of a sudden she collapsed. Lasted for a few seconds. Denies any chest pain or palpitation, no fever or chills . Denies any recent travel or sick contacts No fever but associated with chills Denies any cough or shortness of breath No exposure to COVID 19 Patient was assessed in the ER and was admitted for further management 1 Hospital Course: Syncope Hypertension Hyperlipidemia History of AAA status post repair Dehydration Anxiety Course The patient was admitted and was monitored closely under telemetry. Started on IV hydration . continue home medications and titrate as needed Underwent syncopal workup carotid Doppler no acute stenosis CT of the abdomen pelvis findings noted no acute changes PT eval appreciated No orthostatics changes She responded well to treatment and wanted go home and is being discharged home today in stable condition with advice to follow up with PCP in 1 week Vital Signs/Physical Exam: Temp Pulse Resp BP Pulse Ox 98.1 F 76 18 99/65 93 04/04/20 08:00 04/04/20 08:00 04/04/20 08:00 04/04/20 08:00 04/04/20 08:00 General: Alert, In no apparent distress HEENT: Atraumatic, Normocephalic Neck: Supple, 2+ carotid pulse no bruit Respiratory: Clear to auscultation bilaterally Cardiovascular: Regular rate/rhythm, Normal S1 S2 Capillary refill: <2 Seconds Gastrointestinal: Soft and benign, W/out hepatosplenomegaly Musculoskeletal: No swelling Integumentary: No rashes Neurological: Normal speech, Normal strength at 5/5 x4 extr Laboratory Data at Discharge: WBC 4.8 K/uL (4.3-10.9) D 04/04/20 05:47 Hgb 11.4 g/dL (12.0-15.0) L 04/04/20 05:47 Hct 34.1 % (36.0-45.0) L 04/04/20 05:47 Plt Count 187 K/uL (152-406) 04/04/20 05:47 PT 12.4 SECONDS (9.5-12.5) 04/02/20 14:40 INR 1.05 04/02/20 14:40 Sodium Cancelled 04/04/20 06:00 Potassium Cancelled 04/04/20 06:00 BUN Cancelled 04/04/20 06:00 Creatinine Cancelled 04/04/20 06:00 Glucose Cancelled 04/04/20 06:00 Phosphorus 2.9 mg/dL (2.5-4.9) 04/03/20 05:12 Magnesium 1.9 mg/dL (1.8-2.4) 04/04/20 05:47 Total Bilirubin Cancelled 04/04/20 06:00 AST Cancelled 04/04/20 06:00 ALT Cancelled 04/04/20 06:00 Alkaline Phosphatase Cancelled 04/04/20 06:00 Home Medications: Atorvastatin Calcium [Lipitor*] 10 mg PO BEDTIME 05/21/16 Metoprolol Succinate [Toprol Xl*] 50 mg PO BEDTIME 05/21/16 Tiotropium [Spiriva Handihaler*] 1 cap IN DAILY 05/21/16 Escitalopram Oxalate 10 mg PO BEDTIME 02/28/19 Fluticasone/Vilanterol [Breo Ellipta 200-25 Mcg INH] 1 each IH BEDTIME 02/28/19 Omeprazole 20 mg PO BEDTIME 02/28/19 Zolpidem Tartrate [Ambien] 10 mg PO BEDTIME 02/28/19 Ipratropium/Albuterol Sulfate [Iprat-Albut 0.5-3(2.5) mg/3 ml] 3 ml IH QIDP PRN 11/30/19 Losartan Potassium [Cozaar*] 50 mg PO BEDTIME 04/02/20 predniSONE [Prednisone*] 10 mg PO SEECOM 04/02/20 Meclizine HCl [Antivert*] 12.5 mg PO BID #20 tab 04/04/20 Ondansetron HCl [Zofran] 4 mg PO Q6H PRN #10 tablet 04/04/20 New Medications: Meclizine HCl [Antivert*] 12.5 mg PO BID #20 tab Ondansetron HCl [Zofran] 4 mg PO Q6H PRN #10 tablet PRN Reason: Nausea / Vomiting Diet: AHA Time spent managing pt's care (in minutes): 42
--- NOTE | 2020-04-06 08:49 | ECHO ---
HEIGHT: 5 ft 0 in WEIGHT: 130 lb 0 oz DATE OF STUDY: 04/03/[address]: Zafar Montgomery DO 2-DIMENSIONAL: YES M.MODE: YES DOPPLER: YES COLOR FLOW: YES TDS: YES PORTABLE: NO DEFINITY: NO BUBBLE STUDY: NO DIAGNOSIS: SYNCOPE CARDIAC HISTORY: CATHERIZATION: NO SURGERY: NO PROSTHETIC VALVE: NO PACEMAKER: NO MEASUREMENTS (cm) DIASTOLIC (NORMALS) SYSTOLIC (NORMALS) IVSd 1.0 (0.6-1.2) LA Diam 2.7 (1.9-4.0) LVEF 65% LVIDd 3.5 (3.5-5.7) LVIDs 2.3 (2.0-3.5) %FS 35% LVPWd 1.1 (0.6-1.2) Ao Diam 3.0 (2.0-3.7) 2 DIMENSIONAL ASSESSMENT: RIGHT ATRIUM: NORMAL LEFT ATRIUM: NORMAL RIGHT VENTRICLE: NORMAL LEFT VENTRICLE: NORMAL TRICUSPID VALVE: NORMAL MITRAL VALVE: NORMAL PULMONIC VALVE: NORMAL AORTIC VALVE: NORMAL PERICARDIAL EFFUSION: NONE AORTIC ROOT: NORMAL LEFT VENTRICULAR WALL MOTION: NORMAL DOPPLER/COLOR FLOW: NORMAL COMMENTS: TECHNICALLY DIFFICULT STUDY. GROSSLY NORMAL LEFT VENTRICULAR SIZE AND FUNCTION. NO EFFUSION. NO AORTIC STENOSIS. NO WALL MOTION ABNORMALITY. TECHNOLOGIST: Kelsea CHRISTIANSON
== END 2020-04-04 11:43 | disposition home or self-care (01) ==
LOC: ER 14:17 → ERHOLD 17:23 → 2ND 19:52
PROVIDERS: ADMIT Family Medicine; ATTEND Family Medicine
DX: R55 Syncope and collapse (principal); U07.1 COVID-19; J44.9 Chronic obstructive pulmonary disease, unspecified; F41.8 Other specified anxiety disorders; K21.9 Gastro-esophageal reflux disease without esophagitis; E78.5 Hyperlipidemia, unspecified; I10 Essential (primary) hypertension; E86.0 Dehydration; R94.31 Abnormal electrocardiogram [ECG] [EKG]; I65.23 Occlusion and stenosis of bilateral carotid arteries; Z79.899 Other long term (current) drug therapy
CPT/HCPCS: 93005; 93306; 85025 ×3; 80048; 36415 ×2; 83735 ×3; 84100; 84132; 85610; 80076; 81003 ×2; 84484; 80053 ×2; 83880; 71275; 74177; 71045; 93880; 97112; 97116; 97161; 94760 ×2; 96374; 99285; U0002; Q9967; J3475; J7030 ×4; J2405 ×3; G0378 ×4

== ENCOUNTER 2022-05-24 14:48 | Inpatient (IN) | payer OTHER, BC ==
--- OUTSIDE RECORDS SUMMARY | 2022-05-24 14:55 | XMS REPORT | Continuity of Care Document ---
:1955 Author Organization [facility] t Address [address] [place] [place] [address] Care Team Providers Name Role Phone HERMAN KELLEY Primary Care Physician Unavailable Herman Kelley MD Attending Clinician HERMAN KELLEY Attending Clinician Unavailable Nancy Schumacher DO Attending Clinician KARL RUSSELL Attending Clinician Unavailable KARL RUSSELL Admitting Clinician Unavailable Payers Payer Name Policy Type Policy Number Effective Date Expiration Date S ource Problems Condition Condition Condition Status Onset Resolution Last Treating Co mments Source Name Details Category Date Date Treatment Clinician Date Reduced Reduced Disease Active Univers mobility mobility 5-12 ity of 00:00: [place] [address] Medical Branch Dyspnea on Dyspnea on Disease Active U nivers minimal minimal 5-12 ity of exertion exertion 00:00: [place] 00 Medical Branch AAA AAA Disease Active [facility] (abdominal (abdominal 1-04 Lisandra kes aortic aortic 00:00: Medical aneurysm) aneurysm) 00 Cent er Gastroesop Gastroesop Disease Active U nivers hageal hageal 3-26 ity of reflux reflux 00:00: [place] disease, disease, 00 Medica l esophagiti esophagiti Br anch s presence s presence not not specified specified Chronic Chronic Disease Active Univers back pain, back pain, 3-26 it y of unspecifie [place] Medical location, location, Bran ch unspecifie unspecifie d back d back pain pain laterality laterality Insomnia, Insomnia, Disease Active Uni vers unspecifie unspecifie 4-11 it y of d type d type 00:00: [place] [facility] Essential Essential Disease Active Uni vers hypertensi hypertensi 1-27 it y of on on 00:00: [place] [facility] Chronic Chronic Disease Active 2015-09 Univers obstructiv obstructiv 0-05 it y of e e 00:00: [place] pulmonary pulmonary 00 Medi zan disease disease Branch with acute with acute exacerbati exacerbati on on Infection Infection Disease Active Uni vers of skin of skin 9-06 ity of due to due to 00:00: [place] methicilli methicilli 00 Me dical n n Branch resistant resistant Staphyloco Staphyloco ccus ccus aureus aureus (MRSA) (MRSA) Cyst of Cyst of Disease Active Univers left left 3-21 ity of kidney kidney 00:00: [place] [facility] Hyperlipid Hyperlipid Disease Active 2014-09 U nivers emia emia 2-11 ity of 00:00: [place] [facility] 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 U nivers s of s of 2-11 ity of lumbosacra lumbosacra [place] Medica l Branch Osteopenia Osteopenia Disease Active 2014-09 U nivers 2-11 ity of 00:00: [place] [facility] Depression Depression Disease Active 2014-09 U nivers 2-11 ity of 00:00: [place] [facility] Allergies, Adverse Reactions, Alerts Allergy Allergy Status Severity Reaction(s) Onset Inactive Treating Comm ents Source Name Type Date Date Clinician No Known DA Active [facility] 4-04 [place] 00:00: [address] No Known DA Active [facility] Allergie 3-20 [place] 00:00: [address] No Known DA Active U [facility] Allergie 4-07 [place] 00:00: [address] NO KNOWN Drug Active Univers ALLERGIE Class ity of [facility] Social History Social Habit Start Date Stop Date Quantity Comments Source History SDOH University o f Alcohol Frequency [place] M ed[facility] History SDOH University o f Alcohol Std [place] Medical Drinks Branch History SDOH University o f Alcohol Binge [place] Medic al Branch Exposure to 2022-04-29 2022-05-09 Not sure University of SARS-CoV-2 00:00:00 10:25:00 [facility] (event) [place] Alcohol intake 2022-03-15 2022-03-15 Current drinker Unive rsity of 00:00:00 00:00:00 of alcohol [facility] (finding) Branch Tobacco use and 2018-09-14 2018-09-[address] [facility] Lisandra kes exposure 00:00:00 00:00:00 [facility] Alcohol Comment 2015-09-29 2015-09-29 occasional Universit y of 00:00:00 00:00:00 [facility] History of 2009-09-[address] [facility] tobacco use 00:00:00 [facility] At [address] [facility] Lisandra kes 00:00:00 00:00:00 [facility] Smoking Status Start Date Stop Date Source Ex-smoker 2017-09-07 00:00:00 2017-09-07 00:00:00 Universi ty [facility] Medications Ordered Filled Start Stop Current Ordering Indication Dosage Frequency Signature Comments Components Source Medication Medication Date Date Medication? Clinician (SIG) Name Name nystatin Yes [id number] Apply to U nivers 100,000 8-29 area(s) 2 ity of unit/gram 00:00: (two) [place] powder 00 times Medical daily. Branch LOSARTAN 50 Yes [id number] TAKE 1 Univers mg tablet 7-15 TABLET BY ity o f 00:00: MOUTH [place] 00 EVERY DAY Medical Branch ATORVASTATI Yes [id number] TAKE 1 Univers N 10 mg 6-30 TABLET BY ity of tablet 00:00: MOUTH [place] 00 EVERYDAY Medical AT BEDTIME Branch OMEPRAZOLE Yes [id number] TAKE 1 Univers 20 mg 6-27 CAPSULE BY ity of capsule 00:00: MOUTH [place] 00 EVERY DAY Medical Branch METOPROLOL Yes [id number] TAKE 1 U nivers SUCCINATE 6-27 TABLET BY ity o f XL 50 mg 24 00:00: MOUTH [place] hr tablet 00 EVERY DAY Medic al Branch terbinafine 2021- No [id number] Apply to Univers HCL 1 % 6-14 - area(s) 2 ity of cream 00:00: 00:00 (two) [place] 00 :00 times Medical daily. Branch escitalopra Yes [id number] 20mg Take 1 Univers m oxalate 6-08 tablet by ity o f 20 mg 00:00: mouth [place] tablet 00 daily. Medical Branch zolpidem 2021- No [id number] 10mg Take 1 U nivers (AMBIEN) 10 4-18 - tablet by it y of mg tablet 00:00: 00:00 mouth at [place] as 00 :00 bedtime as Medical needed for Branch Insomnia. nystatin 2021- No [id number] Take 5 mL Univers 100,000 24 - by mouth 4 ity o f unit/mL 00:00: 00:00 (four) [place] suspension 00 :00 times Medical daily. Branch fluticasone 2020-09 Yes [id number] 1{puff} Inhale 1 Univers furoate-anu 2-30 Puff ity of anteroL 00:00: daily. [place] (BREO 00 Medical ELLIPTA) Branch 100-25 mcg/dose DsDv albuterol 2020-09 Yes [id number] 2.5mg Inhale 3 Univers 2.5 mg /3 2-30 mL every 4 ity of mL (0.083 00:00: (four) [place] %) 00 hours as Medical nebulizer needed for Bran ch solution Wheezing or Shortness of Breath. albuterol 2020-09 Yes [id number] 2{puff} Inhale 2 Univers 90 2-30 Puffs ity of mcg/actuati 00:00: every 6 [place] as on inhaler 00 (six) Medical hours as Branch needed for Wheezing or Shortness of Breath. oxybutynin Yes [id number] 10mg Take 1 U nivers 10 mg 24 hr 8-17 tablet by ity of tablet 00:00: mouth [place] 00 daily. Medical Branch meloxicam Yes [id number] 7.5mg Take 1 Univers (MOBIC) 7.5 8-02 tablet by ity of mg tablet 00:00: mouth [place] 00 daily. Medical Branch HYDROCHLORO 2021- No [id number] TAKE 1 Univers THIAZIDE 8 08-29 CAPSULE BY ity of 12.5 mg 00:00: 00:00 MOUTH [place] capsule 00 :00 EVERY DAY Medical Branch escitalopra Yes 20mg QD Take [address] [facility] oxalate 1-10 by mouth [facility] (LEXAPRO) 17:56: daily. Medica l 10 MG 18 Center tablet cyclobenzap Yes 10mg Take [address] [facility] rine 1-10 by mouth 3 [facility] (FLEXERIL) 17:56: (three) Medi zan 10 MG 18 times Center tablet daily as needed for Muscle spasms. omeprazole Yes 20mg QD Take [address] (PRILOSEC) 1-10 by mouth [facility] 20 MG 17:56: daily. Medical capsule 18 Center atorvastati Yes 10mg QD Take [address] [facility] n (LIPITOR) 1-10 by mouth Luke s 10 MG 17:56: every Medical tablet 18 evening. Center acetaminoph Yes 1{tbl} Take [address] en-codeine 1-10 tablet by Alex barnes (TYLENOL 17:56: mouth Medical #4) 300-60 18 every 4 Center mg per (four) tablet hours as needed for Pain. tiotropium Yes 18ug QD Inhale [address] bromide 2.5 1-10 mcg by Freddy mcg/actuati 17:56: mouth via M edical on Mist 18 inhaler Center daily. Missing or Yes 1.3% Apply 1.[address] Non-Formula 1-10 % Freddy ry 17:56: topically Medical Medication 18 every 12 Cente r (twelve) hours Diclofenac Epolamine Topical patch 1.3% . metoprolol Yes 25mg Q.5D Take [address] (TOPROL-XL) 1-10 by mouth 2 Lisandra kes 25 MG 24 hr 17:56: (two) Medic al tablet 18 times Center daily. zolpidem Yes 10mg Take [address] (AMBIEN) 10 1-10 by mouth Luke s mg tablet 17:56: every Medical 18 night as Center needed for Insomnia. Immunizations Ordered Filled Immunization Date Status Comments [facility] Immunization Name Name SARS-COV-2 COVID-19 2021-09-09 Completed Unive rsity of PFIZER VACCINE 00:00:00 [facility] SARS-COV-2 COVID-19 2020-10-22 Completed Unive rsity of PFIZER VACCINE 00:00:00 [facility] SARS-COV-2 COVID-19 2020-10-01 Completed Unive rsity of PFIZER VACCINE 00:00:00 [facility] Influenza Virus 2017-06-06 Completed Universit y of Vaccine Quad IM 3+ 00:00:00 [facility] Pneumococcal 13 2017-06-06 Completed Universit y of Conjugate, PCV13 00:00:00 [facility] dical (Prevnar 13) Branch Zoster(Zostavax)(Sh 2017-06-06 Completed Unive rsity of ingles) 00:00:00 [facility] Influenza Virus 2016-06-15 Completed Universit y of Vaccine Quad IM 3+ 00:00:00 [facility] Pneumococcal 2016-06-15 Completed University o f Polysaccharide, 00:00:00 [facility] ical PPSV23 (PNEUMOVAX) Branch Vital Signs Vital Name Observation Time Observation Value Comments Source Systolic blood 2022-05-09 15:19:00 128 mm[Hg] Univer sity of [place] pressure [facility] Diastolic blood 2022-05-09 15:19:00 71 mm[Hg] Unive rsity of [facility] Heart rate 2022-05-09 15:19:00 52 /min [facility] Body weight 2022-05-09 15:19:00 58.469 kg [facility] BMI 2022-05-09 15:19:00 25.17 kg/m2 [facility] Procedures This patient has no known procedures. Encounters Start End Encounter Admission Attending Care Care Encounter Source Date/Time Date/Time Type Type Clinicians Facility Department ID 2022-05-24 Preadmit nullFlavo [facility] [id number] Me moria 14:50:55 r gali Peng 2021-04-26 Preadmit nullFlavo [facility] [id number] Me moria 14:49:52 kim Peng 2022-05-09 2022-05-09 Office Roland [facility] [id number] Univers 10:15:00 10:30:00 Visit [facility] [id number] it amy of [place] [id number] [place] MULUGETA?BLEA [phone] [address] OFFICE BUILDING 2022-05-09 2022-05-09 Outpatient R ROLAND [facility] [id number] Univers 10:15:00 10:15:00 HERMAN sheldon [facility] 2020-10-09 2020-10-09 [facility] [id number] 00:00:00 00:00:00 [facility] [id number] [place] [id number] Professio [phone] [place] [address] [address] 2020-09-29 2020-09-29 [facility] [id number] 00:00:00 00:00:00 [facility] [id number] [place] [id number] Professio [phone] [place] [address] [address] 2020-09-24 2020-09-24 Gaurang Schumacher [facility] [id number] 00:00:00 00:00:00 Nancy [place] [id number] [place] [id number] Professio [phone] [address] Results Test Description Test Time Test Comments [...] = NRBC#) 0.00 K/mm3 0.0-0.1 N WBC [id number] 11:16:00 Test Item Value Reference Range Interpretation [...] = NORMAL NORMAL PLTMORPH) - XR CHEST [id number] 08:27:00 Patient Name: MOISÉS CANNON Unit No: [id number] EXAMS: CPT CODE: [id number] XR CHEST 1V 76431 EXAMINATION: - XR CHEST 1V. LOCATION: B2. HISTORY: S/P CHEST TUBE REMOVAL. COMPARISON: Radiograph dated 12/18/2018. TECHNIQUE: Single AP view of the chest was obtained. FINDINGS: The heart is normalin size. Mild left basilar opacities are present, unchanged. There is blunting of the right costophrenic angle. Diffuse subcutaneous emphysema is seen in the soft tissues. No new osseous abnormality isidentified. IMPRESSION: No interval change in the appearance of the chest. at 0827 Reported and signed by: Pushpa Wagoner MD CC: Chito Hanson MD Technologist: RT Luc(R) Transcrpt Date/Tm/Trnsp: 12/19/2018 (08) [email or web address] Orig Print D/T: S: 12/19/2018 (0830) [facility] NAME: MOISÉS CANNON [id number] PHYS: [place] [address] : 1955 AGE: 63 SEX: F LOC: Z.SI04 A PHONE #: [phone] EXAM DATE: 12/19/2018 STATUS: ADM IN FAX #: [phone] RADIOLOGY NO: PAGE 1 Signed ReportBASIC METABOLIC [id number] 06:07:00 Test Item Value Reference Range Interpretation [...] code = 9.2 MG/DL 8.4-10.2 N CA) [id number] 06:07:00 Test Item Value Reference Range Interpretation Comments MAGNESIUM (test code = MAG) 2.0 MG/DL 1.6-2.3 N CBC W/O [id number] 05:55:00 Test Item Value Reference Range Interpretation [...] = 0.00 K/mm3 0.0-0.1 N NRBC#) WBC [id number] 05:55:00 Test Item Value Reference Range Interpretation Comments RBC MORPHOLOGY REQUIRED (test code = RBCM) TOTAL CELLS COUNTED (test code = TCC) #CELLS SEGMENTED NEUTROPHILS (test code = % 36.2-73.8 SEG) LYMPHOCYTE (test code = LYMPH) % 12.9-45.1 MONOCYTE (test code = MON) % 0-11 PLATELET ESTIMATE (test code = ADEQUATE PLTEST) PLATELET MORPHOLOGY (test code = NORMAL PLTMORPH) CBC W/AUTO [id number] 05:55:00 Test Item Value Reference Range Interpretation [...] = 0.00 K/mm3 0.0-0.1 N NRBC#) WBC [id number] 05:55:00 Test Item Value Reference Range Interpretation Comments RBC MORPHOLOGY REQUIRED (test code = RBCM) TOTAL CELLS COUNTED (test code = TCC) #CELLS SEGMENTED NEUTROPHILS (test code = % 36.2-73.8 SEG) LYMPHOCYTE (test code = LYMPH) % 12.9-45.1 MONOCYTE (test code = MON) % 0-11 PLATELET ESTIMATE (test code = ADEQUATE PLTEST) PLATELET MORPHOLOGY (test code = NORMAL PLTMORPH) - XR CHEST [id number] 13:33:00 Patient Name: MOISÉS CANNON Unit No: [id number] EXAMS: CPT CODE: [id number] XR CHEST 1V 28602 Chest Radiograph History: RIGHT CHEST TUBE REMOVAL Comparison: December 18, 2018, earlier the same d ay Location: R16 A single frontal view of the chest is submitted. The heart appears unchanged in size. Pulmonary vasculature is unremarkable. The right- sided chest tube has been removed. No pneumothorax is identified. There is a minimal patchy opacity in the left lung base. The bones appear unchanged.Severe subcutaneous emphysema is again identified. The vascular catheter appears unchanged. IMPRESSION: Minimal patchy opacity left lung base. This could be due to atelectasis or pneumonia. Severe subcutaneous emphysema. at 1333 Reported and signed by: Beny Aguero MD CC: Chito Hanson MD; Oumou Stanley [employer] ATTENDANT Technologist: Jo-Ann Hall (RT) Transcrpt Date/Tm/Trnsp: 12/18/2018 (4751) Keiry Orig Print D/T: S: 12/18/2018 (6696) [facility] NAME: MOISÉS CANNON [id number] PHYS: DONY.Giovanna - Jaden,[place] [address] : 1955 AGE: 63 SEX: F LOC: Z.SI04 A PHONE #: EXAM DATE: 12/18/2018 STATUS: ADM IN FAX #: [phone] RADIOLOGY NO: PAGE 1 Signed ReportCBC W/O [id number] 09:20:00 Test Item Value Reference Range Interpretation [...] = 0.00 K/mm3 0.0-0.1 N NRBC#) WBC [id number] 09:20:00 Test Item Value Reference Range Interpretation [...] = NORMAL NORMAL PLTMORPH) - XR CHEST [id number] 08:19:00 Patient Name: MOISÉS CANNON Unit No: [id number] EXAMS: CPT CODE: [id number] XR CHEST 1V 32420 EXAMINATION: - XR CHEST 1V. LOCATION: B2. HISTORY: F/U. COMPARISON: Radiograph dated 12/17/2018. TECHNIQUE: Single AP view of the chest was obtained. FINDINGS: Right chest tube and right IJ line are unchanged in position. The heart is normal in size. Small right pleural effusion is present. Mild left basilar opacities are unchanged. Extensive subcutaneous emphysema is seen in the soft tissues. Nonew osseous abnormality is identified. IMPRESSION: Small right pleural effusion. Mild left basilar opacities, likely representing atelectasis. at 0819 Reported and signed by: Pushpa Wagoner MD CC: Chito Hanson MD Technologist: Maryjane Giles RT(R) Transcrpt Date/Tm/Trnsp: 12/18/2018 (0819) [email or web address] Orig Print D/T: S: 12/18/2018 (0822) [facility] NAME: MOISÉS CANNON [id number] [address] PHYS: [place] [address] : 1955 AGE: 63 SEX: F LOC: Z.SI04 A PHONE #: [phone] EXAM DATE: 12/18/2018 STATUS: ADM IN FAX #: [phone] RADIOLOGY NO: PAGE 1 Signed ReportBASIC METABOLIC [id number] 05:44:00 Test Item Value Reference Range Interpretation [...] code = 8.8 MG/DL 8.4-10.2 N CA) [id number] 05:44:00 Test Item Value Reference Range Interpretation Comments MAGNESIUM (test code = MAG) 1.9 MG/DL 1.6-2.3 N CBC W/O [id number] 05:30:00 Test Item Value Reference Range Interpretation [...] = 0.00 K/mm3 0.0-0.1 N NRBC#) WBC [id number] 05:30:00 Test Item Value Reference Range Interpretation Comments RBC MORPHOLOGY REQUIRED (test code = RBCM) TOTAL CELLS COUNTED (test code = TCC) #CELLS SEGMENTED NEUTROPHILS (test code = % 36.2-73.8 SEG) LYMPHOCYTE (test code = LYMPH) % 12.9-45.1 MONOCYTE (test code = MON) % 0-11 PLATELET ESTIMATE (test code = ADEQUATE PLTEST) PLATELET MORPHOLOGY (test code = NORMAL PLTMORPH) CBC W/AUTO [id number] 05:30:00 Test Item Value Reference Range Interpretation [...] = 0.00 K/mm3 0.0-0.1 N NRBC#) WBC [id number] 05:30:00 Test Item Value Reference Range Interpretation Comments RBC MORPHOLOGY REQUIRED (test code = RBCM) TOTAL CELLS COUNTED (test code = TCC) #CELLS SEGMENTED NEUTROPHILS (test code = % 36.2-73.8 SEG) LYMPHOCYTE (test code = LYMPH) % 12.9-45.1 MONOCYTE (test code = MON) % 0-11 PLATELET ESTIMATE (test code = ADEQUATE PLTEST) PLATELET MORPHOLOGY (test code = NORMAL PLTMORPH) CBC W/O [id number] 09:18:00 Test Item Value Reference Range Interpretation [...] = 0.00 K/mm3 0.0-0.1 N NRBC#) WBC [id number] 09:18:00 Test Item Value Reference Range Interpretation [...] = NORMAL NORMAL PLTMORPH) - XR CHEST [id number] 08:48:00 Patient Name: MOISÉS CANNON Unit No: [id number] EXAMS: CPT CODE: [id number] XR CHEST 1V 56042 REASON FOR EXAM: Chest tube, lung lesion, subcutaneous emphysema.. COMPARISON: December 16, 2018. Chest, portable single frontal view. The right-sided chest tube and jugular line are stable in position. Similar appearance to subcutaneous emphysema, limiting detail of the chest The lungs are well-inflated with more density in the left lung than right. Small right effusion versus postop changes. No focal abnormality. This could represent a diffuse pneumonia or other interstitial process. Heart size is normal. No left effusion or pneumothorax can be seen. Osseous structures appear to be intact. IMPRESSION: Stable chest with chest tube in place and no detectable pneumothorax. There is more density inthe left lung than seen on film several days ago possibly developing asymmetric pulmonary edema or pneumonia. Location: [facility] at 0848 Reported and signed by: Chris Ortiz MD CC: Chito Hanson MD Technologist: Maryjane Giles RT(R) Transcrpt Date/Tm/Trnsp: 12/17/2018 (48) Ayleen Orig Print D/T: S: 12/17/2018 (0851) [facility] NAME: MOISÉS CANNON [id number] PHYS: [place] [address] : 1955 AGE: 63 SEX: F LOC: Z.SI04 A PHONE #: [phone] EXAM DATE: 12/17/2018 STATUS: ADM IN FAX #: [phone] RADIOLOGY NO: PAGE 1 Signed ReportBASIC METABOLIC [id number] 05:48:00 Test Item Value Reference Range Interpretation [...] code = 8.6 MG/DL 8.4-10.2 N CA) [id number] 05:48:00 Test Item Value Reference Range Interpretation Comments MAGNESIUM (test code = MAG) 2.0 MG/DL 1.6-2.3 N PROTHROMBIN [id number] 05:37:00 Test Item Value Reference Range Interpretation Comments PROTHROMBIN TIME 10.4 SECONDS 9.6-11.6 N PATIENT (test code = PTP) INTERNATIONAL NORMAL 1.0 0.8-1.1 N The INR is to be RATIO (test code = used only for INR) monitoring oral anticoagulantth erap y. INDICATION I NR VALUE ---- ---- ---- -------1. Prophylaxis, de ep venous thrombos is, including high risk surgery. 2.0 - 3.0 2. Prophylaxis, deep venous thrombosis, hip surgery, treatm ent for deep venous thrombosis or pulmonary prevention of systemic emboli sm in patients wit h valvular heart disease, atrial fibrillation, tissue heart va lve, or acute myocar dial infarction. 2. 0 - 3.0 3. Flat Optical Element Maker al prosthesis hear t valves, recurre nt systemic emboli sm. 3.0 - 4.5 CBC W/O [id number] 05:18:00 Test Item Value Reference Range Interpretation [...] = 0.00 K/mm3 0.0-0.1 N NRBC#) WBC [id number] 05:18:00 Test Item Value Reference Range Interpretation Comments RBC MORPHOLOGY REQUIRED (test code = RBCM) TOTAL CELLS COUNTED (test code = TCC) #CELLS SEGMENTED NEUTROPHILS (test code = % 36.2-73.8 SEG) LYMPHOCYTE (test code = LYMPH) % 12.9-45.1 MONOCYTE (test code = MON) % 0-11 PLATELET ESTIMATE (test code = ADEQUATE PLTEST) PLATELET MORPHOLOGY (test code = NORMAL PLTMORPH) CBC W/AUTO [id number] 05:18:00 Test Item Value Reference Range Interpretation [...] = 0.00 K/mm3 0.0-0.1 N NRBC#) WBC [id number] 05:18:00 Test Item Value Reference Range Interpretation Comments RBC MORPHOLOGY REQUIRED (test code = RBCM) TOTAL CELLS COUNTED (test code = TCC) #CELLS SEGMENTED NEUTROPHILS (test code = % 36.2-73.8 SEG) LYMPHOCYTE (test code = LYMPH) % 12.9-45.1 MONOCYTE (test code = MON) % 0-11 PLATELET ESTIMATE (test code = ADEQUATE PLTEST) PLATELET MORPHOLOGY (test code = NORMAL PLTMORPH) - XR CHEST [id number] 07:05:00 Patient Name: MOISÉS CANNON Unit No: [id number] EXAMS: CPT CODE: [id number] XR CHEST 1V 60954 Single View Chest. Location: B2 Clinical Indication: [...] Technologist: Jericho Bates, RT(R) Transcrpt Date/Tm/Trnsp: 12/16/2018 (704) [email or web address] Orig Print D/T: S: 12/16/2018 (707) [facility] NAME: MOISÉS CANNON [id number] PHYS: [place] [address] : 1955 AGE: 63 SEX: F LOC: Z.SI04 A PHONE #: [phone] EXAM DATE: 12/16/2018 STATUS: ADM IN FAX #: [phone] RADIOLOGY NO: PAGE 1 Signed ReportBASIC METABOLIC [id number] 06:21:00 Test Item Value Reference Range Interpretation [...] code = 9.0 MG/DL 8.4-10.2 N CA) [id number] 06:21:00 Test Item Value Reference Range Interpretation Comments MAGNESIUM (test code = MAG) 2.0 MG/DL 1.6-2.3 N CBC W/AUTO [id number] 05:52:00 Test Item Value Reference Range Interpretation [...] K/mm3 0.0-0.1 N NRBC#) - XR CHEST [id number] 05:42:00 Patient Name: MOISÉS CANNON Unit No: [id number] EXAMS: CPT CODE: [id number] XR CHEST 1V 10927 Location: U19. CHEST, FRONTAL VIEW HISTORY: SUBQ EMPHYSEMA, CHEST TUBE IN PLACE FINDINGS: Since 12/14/18, the extensive subcutaneous emphysema is unchanged. Partial resection of the right lung withthe right chest tube remaining in place. No [...] Technologist: Jericho Bates, RT(R) Transcrpt Date/Tm/Trnsp: 12/15/2018 (42) [email or web address] Orig Print D/T: S: 12/15/2018 (0545) [facility] Al[facility] NAME: MOISÉS CANNON [id number] [address]: [place] [address] : 1955 AGE: 63 SEX: F LOC: Z.SI04 A PHONE #: [phone] EXAM DATE: 12/15/2018 STATUS: ADM IN FAX #: [phone] RADIOLOGY NO: PAGE 1 Signed Report- XR CHEST [id number] 08:24:00 Patient Name: MOISÉS CANNON Unit No: [id number] EXAMS: CPT CODE: [id number] XR CHEST 1V 77805 REASON FOR EXAM: Chest tube, thoracotomy.. COMPARISON: December 13, 2018. Chest, portable single frontal view. Fara graph the right-sided chest tube in stable position. No detectable pneumothorax. Jugular line stable as well. The degree of subcutaneous emphysema is very similar including distribution.The lungs are well-inflated with continued densities in [...] by: Chris Ortiz MD CC: Chito Hanson MDTechnologist: Maryjane Giles RT(R) Transcrpt Date/Tm/Trnsp: 12/14/2018 (823) [email or web address] Orig PrintD/T: S: 12/14/2018 (08) [facility] Al[facility] NAME: MOISÉS CANNON [id number] [address] PHYS: [place] [address] : 1955 AGE: 63 SEX: F LOC: TAWANNA Nuñez PHONE #: [phone] EXAM DATE: 12/14/2018 STATUS: ADM IN FAX #: [phone] RADIOLOGY NO: PAGE 1 Signed ReportBASIC METABOLIC [id number] 07:39:00 Test Item Value Reference Range Interpretation [...] code = 8.6 MG/DL 8.4-10.2 N CA) [id number] 07:39:00 Test Item Value Reference Range Interpretation Comments MAGNESIUM (test code = MAG) 2.0 MG/DL 1.6-2.3 N CBC W/AUTO [id number] 07:24:00 Test Item Value Reference Range Interpretation [...] code = 0.00 K/mm3 0.0-0.1 N NRBC#) [id number] 11:49:00 Test Item Value Reference Range Interpretation Comments POTASSIUM (test code = K) 3.7 MMOL/L 3.5-5.1 N - XR CHEST [id number] 07:42:00 Patient Name: MOISÉS CANNON Unit No: [id number] EXAMS: CPT CODE: [id number] XR CHEST 1V 49949 EXAMINATION: - XR CHEST 1V. LOCATION: B2. HISTORY: F/U. COMPARISON: Radiograph dated 12/12/2018. T ECHNIQUE: Single AP view of the chest was obtained. FINDINGS: Right IJ line and right chest tube areunchanged in position. The heart is normal in size. There is elevation of the right hemidiaphragm with mild blunting of the right costophrenic angle. Mild left basilar opacities are present. There is no pneumothorax. Extensive subcutaneous emphysema is seen throughout the visualized soft tissues, not significantly changed. There has been prior lower cervical spine surgery. No new osseous abnormality is identified. IMPRESSION: Small right pleural effusion and/or atelectasis. Mild left basilar opacities, likely representing atelectasis. Extensive subcutaneous emphysema, unchanged. at 0742 Reported and signed by: Pushpa Wagoner MD CC: Chito Calderon MD Technologist: Maryjane Giles RT(R) Transcrpt Date/Tm/Trnsp: 12/13/2018 (0742) t.ANYAR.PR7 Orig Print D/T: S: 12/13/2018 (0745) [facility] NAME: DAVISMOISÉS LEANA [id number] PHYS: [place] [address] : 1955 AGE: 63 [id number] LOC: Z.SI04 A PHONE #: [phone] EXAM DATE: 12/13/2018 STATUS: ADM IN FAX #: [phone] RADIOLOGYNO: PAGE 1 Signed ReportTB TEST IGRA 2018-12-13 07:32:00 Test Item Value Reference Range Interpretation Comments TB TEST IGRA (test code = TBTEST) Negative Negative BASIC METABOLIC [id number] 05:53:00 Test Item Value Reference Range Interpretation [...] code = 8.7 MG/DL 8.4-10.2 N CA) [id number] 05:53:00 Test Item Value Reference Range Interpretation Comments MAGNESIUM (test code = MAG) 1.8 MG/DL 1.6-2.3 N CBC W/AUTO [id number] 05:35:00 Test Item Value Reference Range Interpretation [...] K/mm3 0.0-0.1 N NRBC#) - XR CHEST [id number] 08:38:00 Patient Name: MOISÉS CANNON Unit No: [id number] EXAMS: CPT CODE: [id number] XR CHEST 1V 84493 REASON FOR EXAM: Lung tumor resection. COMPARISON: December 11, 2018. Chest, portable single frontalview. The right-sided chest tube is in good position, stable. No obvious pneumothorax. Right jugularline intact as well in the superior vena cava. Similar, extensive subcutaneous emphysema limits the study. The lungs are fairly well-inflated and clear. Postop findings in the right lung. Heart size isnormal. No effusion or pneumothorax can be seen. Osseous structures appear to be intact. IMPRESSION:No identifiable pneumothorax. Slightly limited study. Right chest tube, stable. Similar appearance to subcutaneous emphysema. Location: U19 at 0838 Reported and signed by: Chris Ortiz MD CC: Chito Hanson MD Technologist: Maryjane Giles RT(R) Transcrpt Date/Tm/Trnsp: 12/12/2018 (0838) tFRANCISCO Orig Print D/T: S: 12/12/2018 (0841) [facility] NAME: MOISÉS CANNON [address] PHYS: [place] [address] : 1955 AGE: 63 SEX: F LOC: Z.SI04 A PHONE #: [phone] EXAM DATE: 12/12/2018 STATUS: ADM IN FAX #: [phone] RADIOLOGY NO: PAGE 1 Signed Report AB [id number] 07:36:00 Test Item Value Reference Range Interpretation Comments AB COCCIDIOIDES (test code = COCCIAB) <0.150 < 1:2 BASIC METABOLIC [id number] 05:56:00 Test Item Value Reference Range Interpretation [...] code = 8.7 MG/DL 8.4-10.2 N CA) [id number] 05:56:00 Test Item Value Reference Range Interpretation Comments MAGNESIUM (test code = MAG) 1.9 MG/DL 1.6-2.3 N CBC W/AUTO [id number] 05:42:00 Test Item Value Reference Range Interpretation [...] 0.00 K/mm3 0.0-0.1 N NRBC#) AG HISTOPLASMA [id number] 07:26:00 Test Item Value Reference Range Interpretation Comments AG HISTOPLASMA UA (test code = <0.5 EIA unit <0.5 ng/mL HISUAAG) - XR CHEST [id number] 06:56:00 Patient Name: MOISÉS CANNON Unit No: [id number] EXAMS: CPT CODE: [id number] XR CHEST 1V 89951 Location: U19. CHEST, FRONTAL VIEW HISTORY: S/P [...] gross pneumothorax, though assessment is significantly limited. Electronically Signed by Obed Villasenor MD on12/11/2018 at 0656 Reported and signed by: Obed Villasenor MD CC: Chito Hanson MD Technologist: Maryjane Giles RT(R) Transcrpt Date/Tm/Trnsp: 12/11/2018 (0656) t.SDR.SP17 Orig Print D/T: S: 12/11/2018 (0700) [facility] NAME: CANNONMOISÉSTEN DUEÑAS [address] PHYS: [place] [address] : 1955 AGE: 63 SEX: F LOC: Z.SI04 A PHONE #: [phone] EXAM DATE: 12/11/2018 STATUS: ADM IN FAX #: [phone] RADIOLOGY NO: PAGE 1 Signed R eportBASIC METABOLIC [id number] 05:46:00 Test Item Value Reference Range Interpretation [...] code = 8.7 MG/DL 8.4-10.2 N CA) [id number] 05:46:00 Test Item Value Reference Range Interpretation Comments MAGNESIUM (test code = MAG) 1.9 MG/DL 1.6-2.3 N CBC W/AUTO [id number] 05:28:00 Test Item Value Reference Range Interpretation [...] 0.00 K/mm3 0.0-0.1 N NRBC#) BASIC METABOLIC [id number] 05:54:00 Test Item Value Reference Range Interpretation [...] 8.7 MG/DL 8.4-10.2 N CA) CBC W/AUTO [id number] 05:35:00 Test Item Value Reference Range Interpretation [...] 0.00 K/mm3 0.0-0.1 N NRBC#) BASIC METABOLIC [id number] 06:18:00 Test Item Value Reference Range Interpretation [...] 8.5 MG/DL 8.4-10.2 N CA) CBC W/AUTO [id number] 05:48:00 Test Item Value Reference Range Interpretation [...] K/mm3 0.0-0.1 N NRBC#) - XR CHEST [id number] 11:16:00 Patient Name: MOISÉS CANNON Unit No: [id number] EXAMS: CPT CODE: [id number] XR CHEST 1V 23828 Site ID: [id number] HISTORY: Subcutaneous emphysema, right [...] Maksim Gonzales RT(R) Transcrpt Date/Tm/Trnsp: 12/08/2018 (1116) t.SDR.AJP6 Orig Print D/T: S: 12/08/2018 (1119) [facility] NAME: MOISÉS CANNON [id number] PHYS: [place] [address] : 1955 AGE: 63 SEX: F LOC: Z.SI04 A PHONE #: [phone] EXAM DATE: 12/08/2018 STATUS: ADM IN FAX #: [phone] RADIOLOGY NO: PAGE 1 Signed ReportMAGNESIUM 2018-12-08 08:28:00 Test Item Value Reference Range Interpretation Comments MAGNESIUM (test code = MAG) 2.0 MG/DL 1.6-2.3 N - XR CHEST [id number] 07:15:00 Patient Name: MOISÉS CANNON Unit No: [id number] EXAMS: CPT CODE: [id number] XR CHEST 1V 82570 Location of dictation: B2 Portable chest one view. HISTORY: resp distress COMMENT: Compared to an earlier study the same day. The right IJ central line remains present. Cardiac silhouette is stable. There are more pronounced interstitial infiltrates overlying the lungs. Accounting for the presenceof extensive subcutaneous air, findings suggest possible interstitial edema. No new consolidation, pneumothorax or significant effusion seen. Visualized soft tissues and skeletal structures are unremarkable. IMPRESSION: Suspect mild interstitial edema. at 0715 Reported and signed by: Neelima Ghosh M.D. CC: Chito Hanson MD; Jose Luis De La Vega MD Technologist: Pavel Ma, (RT) (R) Transcrpt Date/Tm/Trnsp: 12/08/2018 (07) t.ANYAR.[facility] Orig Print D/T: S: 12/08/2018 (0718) [facility] NAME: MOISÉS CANNON [address] PHYS: [place] [address] : 1955 AGE: 63 SEX: F LOC: Z.SI04 A PHONE #: [phone] EXAM DATE: 12/08/2018 STATUS: ADM IN FAX #: [phone] RADIOLOGY NO: PAGE 1 Signed Report- XR CHEST [id number] 07:08:00 Patient Name: MOISÉS CANNON Unit No: [id number] EXAMS: CPT CODE: [id number] XR CHEST 1V 70356 Location of dictation: B2 Portable chest one view. HISTORY: F/U SUBCUTANEOUS EMPHYSEMA COMMENT:Compared to one day prior. Right IJ central [...] Marlena.PXC Orig Print D/T: S: 12/08/2018 (0711) [facility] Al[facility] NAME: MOISÉS CANNON [address] PHYS: DONY. - [place] [address]WRC: 1955 AGE: 63 SEX: F LOC: Z.SI04 A PHONE #: [phone] EXAM DATE:12/08/2018 STATUS: ADM IN FAX #: [phone] RADIOLOGY NO: PAGE 1 Signed ReportPOC ARTERIAL BLOOD [id number] 07:01:00 Test Item Value Reference Range Interpretation Comments POC ARTERIAL BLOOD GAS PH 7.382 7.35-7.45 N (test code = POCPHA) POC ARTERIAL BLOOD GAS PCO2 51.4 mmHg 35.0-45.0 HH (test code = MBIHIR2S) POC ARTERIAL BLOOD GAS PO2 82 75.0-100.0 N (test code = PDHIN6J) POC HCO3 ARTERIAL (test code 30.5 MMOL/L 20.0-26.0 HH = ZVTCVB8V) POC BASE EXCESS (test code = 5.0 MMOL/L -3.0-3.0 H POCBEA) POC O2 SATURATION (test code 96 % 92.0-98.5 N = POCO2S) FIO2 (test code = FIO2A) 40 % 21-100 N ABG DELIVERY (test code = N/C MARCUS) ABG SITE (test code = SITEA) R Brachial ALLENS TEST (test code = N/A CHECK MD West/SNEHA~ MARIXA) PROTHROMBIN [id number] 06:11:00 Test Item Value Reference Range Interpretation Comments PROTHROMBIN TIME 10.3 SECONDS 9.6-11.6 N PATIENT (test code = PTP) INTERNATIONAL NORMAL 1.0 0.8-1.1 N The INR is to be RATIO (test code = used only for INR) monitoring oral anticoagulantth erap y. INDICATION I NR VALUE ---- ---- ---- -------1. Prophylaxis, de ep venous thrombos is, including high risk surgery. 2.0 - 3.0 2. Prophylaxis, deep venous thrombosis, hip surgery, treatm ent for deep venous thrombosis or pulmonary prevention of systemic emboli sm in patients wit h valvular heart disease, atrial fibrillation, tissue heart va lve, or acute myocar dial infarction. 2. 0 - 3.0 3. Flat Optical Element Maker al prosthesis hear t valves, recurre nt systemic emboli sm. 3.0 - 4.5 PTT [id number] 06:11:00 Test Item Value Reference Range Interpretation Comments PTT ACTIVATED (test code = APTT) 23.2 SECONDS 22.0-33.0 N BASIC METABOLIC [id number] 06:09:00 Test Item Value Reference Range Interpretation [...] 9.0 MG/DL 8.4-10.2 N CA) CBC W/AUTO [id number] 05:57:00 Test Item Value Reference Range Interpretation [...] 0.00 K/mm3 0.0-0.1 N NRBC#) BASIC METABOLIC [id number] 12:08:00 Test Item Value Reference Range Interpretation [...] = 8.8 MG/DL 8.4-10.2 N CA) PROTHROMBIN [id number] 12:01:00 Test Item Value Reference Range Interpretation Comments PROTHROMBIN TIME 10.2 SECONDS 9.6-11.6 N PATIENT (test code = PTP) INTERNATIONAL NORMAL 1.0 0.8-1.1 N The INR is to be RATIO (test code = used only for INR) monitoring oral anticoagulantth erap y. INDICATION I NR VALUE ---- ---- ---- -------1. Prophylaxis, de ep venous thrombos is, including high risk surgery. 2.0 - 3.0 2. Prophylaxis, deep venous thrombosis, hip surgery, treatm ent for deep venous thrombosis or pulmonary prevention of systemic emboli sm in patients wit h valvular heart disease, atrial fibrillation, tissue heart va lve, or acute myocar dial infarction. 2.0 - 3.0 3. Flat Optical Element Maker al prosthesis hear t valves, recurre nt systemic emboli sm. 3.0 - 4.5 PTT [id number] 12:01:00 Test Item Value Reference Range Interpretation Comments PTT ACTIVATED (test code = APTT) 24.1 SECONDS 21.0-33.0 N CBC W/AUTO [id number] 11:49:00 Test Item Value Reference Range Interpretation [...] K/mm3 0.0-0.1 N NRBC#) - XR CHEST [id number] 08:32:00 Patient Name: MOISÉS CANNON Unit No: [id number] EXAMS: CPT CODE: [id number] XR CHEST 1V 53180 Location of dictation: B2 Portable chest one [...] MD Technologist: Maryjane Giles, RT(R) Transcrpt Date/Tm/Trnsp: 12/07/2018 (0832) t.ANYAR.PXC Orig Print D/T: S: 12/07/2018 (0835) [facility] NAME: MOISÉS CANNON [id number] PHYS: [place] [address] : 1955 AGE: 63 SEX: F LOC: Z.SI04 A PHONE #: [phone] EXAM DATE: 12/07/2018 STATUS: ADM IN FAX #: [phone] RADIOLOGY NO: PAGE 1 Signed Report- XR CHEST [id number] 07:52:00 Patient Name: MOISÉS CANNON Unit No: [id number] EXAMS: CPT CODE: [id number] XR CHEST 1V 48261 Location of dictation: B2 Portable chest one view. HISTORY: S/P R.A. RIGHT LUNG MASS RESECTION COMMENT: Compared to 2 days prior. The heart is normal in size. There is decreased lucency in the mediastinum. The appearance of the lungs are stable with patchy bibasilar infiltrates and possibly small effusions. Extensive subcutaneous air again noted and may be slightly improved. No new changes noted. A right IJ central line remains in place. Patient is post cervical fusion. Bone anchors overlie the right humeral head. IMPRESSION: Overall improved appearance of the chest with no unfavorable findings over 2 days. at 0752 Reported and signed by: Neelima Ghosh M.D. CC: Chito Hanson MD Technologist: Maryjane Giles, RT(R) Transcrpt Date/Tm/Trnsp: 12/06/2018 (0752) JuanPXC Orig Print D/T: S: 12/06/2018 (0755) [facility] Franc[facility] NAME: MOISÉS CANNON [id number] PHYS: [place] [address] : 1955 AGE: 63 SEX: F LOC: Z.SI04 A PHONE #: [phone] EXAM DATE: 12/06/2018 STATUS: ADM IN FAX #: [phone] RADIOLOGY NO: PAGE 1 Signed ReportBASIC METABOLIC [id number] 05:28:00 Test Item Value Reference Range Interpretation [...] code = 9.1 MG/DL 8.4-10.2 N CA) [id number] 05:28:00 Test Item Value Reference Range Interpretation Comments MAGNESIUM (test code = MAG) 2.0 MG/DL 1.6-2.3 N CBC W/AUTO [id number] 05:05:00 Test Item Value Reference Range Interpretation [...] code = 0.00 K/mm3 0.0-0.1 N NRBC#) [id number] 16:13:00 RUN DATE: 12/05/18 [facility] PAGE 1 RUN TIME: 1614 Specimen Inquiry RUN USER: INTERFACE -PATIENT: MOISÉS CANNON LOC: LAURA U #: [id number] AGE/SX: 63/F ROOM: [facility] RE11/30/[place] DR: Chris Rivera MD : 55 BED: A DIS: STATUS: ADM IN TLOC: SPEC #: [id number] RECD: 11/30/18 STATUS: BERTRAND DENIS #: [id number] PAOLA: 11/30/18 [facility] DR: Chris Rivera MD ENTERED: 11/30/18 SP TYPE: LUNG OTHR DR: Chito Hanson MD ORDERED: SURG PATH LVL 5/2, FS, AFB/2, GMS/2, TOUCH PREP EA A CODES: [id number] [id number] - BRONCHUS OF RIG BIOPSY, NOS D58651 N09016 - BRONCHUS OF RIG INFLAMMATION, N R05035 P23499 - BRONCHUS OF RIG GRANULOMATOUS I W01014 R00639 - BRONCHUS OF RIG NECROTIZINGGRA J12231 T62327 - BRONCHUS OF RIG NECROSIS, NOS O48342 U85418 - BRONCHUS OF RIG DYSPLASIA, NOS B93000 - LUNG, NOS QQ2816 J52092 - BODY TISSUE, NO EMPHYSEMA, NOS WR0409 X03899 - BODY TISSUE, NO DYSPLASIA, NOS COPIES TO: Chito Hanson MD [address] [place] [address] [address] [place] [address] [email or web address] [place] [address] [facility] [place] [address] PROCEDURES: SURG PATH LVL 5 (11/30/181835) FS (11/30/18) AFB (12/05/18) GMS (12/05/18) TOUCHPREP EA A (12/05/18) TISSUES: A. LUNG, NOS - RUL TISSUE B. LUNG, NOS - RT UPPER LOBE BULLAE CLINICAL HISTORY LUNG LESION CPT CODES CPT CODE(S): 27915G9 , 09258 , 16329 , 97934D0 , , , CONTINUEDON NEXT PAGE RUN DATE: 12/05/18 [facility] PAGE 2 RUN TIME: 1614 Specimen Inquiry RUN USER: INTERFACE SPEC #: [id number] PATIENT: MOISÉS CANNON #[id number] (Continued) FINAL DIAGNOSIS A. Lung, right upperlobe, wedge biopsy: CASEATING GRANULOMA. FUNGAL ORGANISMS PRESENT. NO DYSPLASIA OR MALIGNANCY IDENTIFIED. B. Lung, right upper lobe, [...] 1.5 x 1.3 cm. The nodule is well- circumscribed. Television Operator sectionsof nodule submitted for frozen section labeled FS1/TP1 and submitted for permanent section as A1 andthe remainder of the nodule submitted entirely as A2-A3 and entire lung tissue is sectioned and submitted as A4-A8. B. Right upper lobe bullae. Received are three pieces of lung tissue with stapled margins. They measure 3.5 x 0.9 x 0.7, 4 x 1 x 0.5 and 4 x 1.1 x 0.6 cm. The margins are inked black, green and blue. They are each sectioned, no nodules are grossly identified. They are submitted each as B1-B3. /tc/nr MICROSCOPIC DESCRIPTION A. Right upper lobe. Sections show lung tissue with a large granuloma with necrotic center. Special stain (GMS, with good controls, blocks A2 and A3) shows numerousfungal organisms (yeast forms) within the granuloma. AFB stain (with good controls, blocks A2 and A3) is negative for acid-fast bacilli. Adjacent lung tissue has emphysematous changes. No dysplasia or malignancy is identified. B. Right upper lobe bullae. Sections show fragments of lung tissue with emphysematous changes. Prominent bullae are seen. There is no evidence of dysplasia or malignancy. /paula--- --------- Signed SIGNATURE ON FILE Chris Frank 12/05/18 1613 END OF REPORT - XR CHEST 1V 2018-12-05 08:14:00 Patient Name: MOISÉS CANNON Unit No: [id number] EXAMS: CPT CODE: [id number] XR CHEST 1V 50759 Location of dictation: B2 Portable chest one view. HISTORY: S/P R.A. RIGHT LUNG MASS RESECTION COMMENT: Compared to one day prior. A right IJ central line remains in place. The heart is normal andstable in size. There are more pronounced left perihilar and bibasilar infiltrates with persistent elevation of the right diaphragm. No obvious pneumothorax seen however there is subtle lucency adjacent to the left heart border suggesting pneumomediastinum. There is continued worsening of severe subcutaneous emphysema IMPRESSION: 1. Development of bibasilar atelectasis and questionable small pneumomediastinum. 2. Worsening subcutaneous emphysema. at 0814 Reported and signed by: Neelima Ghosh M.D. CC: Chito Hanson MD Technologist: RT Zia(R) Transcrpt Date/Tm/Trnsp: 12/05/2018 (0814) t.ANYAR.[facility] Orig Print D/T: S: 12/05/2018 (0817) [facility] NAME: MOISÉS CANNON [id number] PHYS: [place] [address] : 1955 AGE: 63 SEX: F LOC: Z.SI04 A PHONE #: [phone] EXAM DATE: 12/05/2018 STATUS: ADM IN FAX #: [phone] RADIOLOGY NO: PAGE 1 Signed ReportBASIC METABOLIC [id number] 06:36:00 Test Item Value Reference Range Interpretation [...] code = 9.0 MG/DL 8.4-10.2 N CA) [id number] 06:36:00 Test Item Value Reference Range Interpretation Comments MAGNESIUM (test code = MAG) 1.9 MG/DL 1.6-2.3 N CBC W/AUTO [id number] 06:20:00 Test Item Value Reference Range Interpretation [...] 0.00 K/mm3 0.0-0.1 N NRBC#) BASIC METABOLIC [id number] 21:07:00 Test Item Value Reference Range Interpretation [...] code = 9.0 MG/DL 8.4-10.2 N CA) [id number] 21:07:00 Test Item Value Reference Range Interpretation Comments MAGNESIUM (test code = MAG) 1.8 MG/DL 1.6-2.3 N ARTERIAL BLOOD [id number] 20:51:00 Test Item Value Reference Range Interpretation [...] code = 36 % COHBGFFIO2) GLUCOSE BEDSIDE [id number] 14:59:00 Test Item Value Reference Range Interpretation Comments GLUCOSE BEDSIDE TEST NOT PERFORMED 60- Previo usly reported TESTING (test MG/DL result: 55 code = GLUBED) MG/DLEdited b y: Z.LAB.TQL on 12/04/18:993020 1457: GLU BE D previously repo rted as: 55 L MG/DL GLUCOSE BEDSIDE [id number] 13:35:00 Test Item Value Reference Range Interpretation Comments GLUCOSE BEDSIDE TESTING (test code = 55 MG/DL 60-99 L GLUBED) CALCIUM [id number] 12:44:00 Test Item Value Reference Range Interpretation Comments CALCIUM IONIZED (test code = BABAK) 1.11 MMOL/L 1.12-1.30 L PROTHROMBIN [id number] 10:01:00 Test Item Value Reference Range Interpretation Comments PROTHROMBIN TIME 9.9 SECONDS 9.6-11.6 N PATIENT (test code = PTP) INTERNATIONAL NORMAL 0.9 0.8-1.1 N The INR is to be RATIO (test code = INR) used only for monitoring oral anticoagulantth erap y. INDICATION INR VALUE ---- ---- ---- -------1. Prophylaxis, de ep venous thrombos is, including high risk surgery. 2.0 - 3.0 2. Prophylaxis, deep venous thrombosis, hip surgery, treatm ent for deep venous thrombosis or pulmonary prevention of systemic emboli sm in patients wit h valvular heart disease, atrial fibrillation, tissue heart va lve, or acute myocar dial infarction. 2.0 - 3.0 3. Flat Optical Element Maker al prosthesis hear t valves, recurre nt systemic emboli sm. 3.0 - 4.5 Comments to Provider Scribe: nonePTT [id number] 10:01:00 Test Item Value Reference Range Interpretation Comments PTT ACTIVATED (test code = APTT) 24.2 SECONDS 22.0-33.0 N Comments to Provider Scribe: none- XR CHEST [id number] 09:06:00 Patient Name: MOISÉS CANNON Unit No: [id number] EXAMS: CPT CODE: [id number] XR CHEST 1V 08935 Location of dictation: B2 Portable chest one view. HISTORY: right chest tube, subq emphysema COMMENT: Compared to one day prior. Right IJ central line and right chest tube are again noted. There isprogression of extensive subcutaneous emphysema. The heart is normal in size. No new consolidation, o bvious pneumothorax or significant effusion. The right hemidiaphragm remains elevated. IMPRESSION: Worsening subcutaneous emphysema otherwise stable appearance of the chest with right chest tube in place at 0906 Reported and signed by: Panchito Miller CC: Chito Hanson MD; [place] NP Technologist: Jo-Ann Hall (RT) Transcrpt Date/Tm/Trnsp: 12/04/2018 (09) [facility] Orig Print D/T: S: 12/04/2018 (0910) [facility] NAME: MOISÉS CANNON [id number] PHYS: DONY.Giovanna [place] [address] : 1955 AGE: 63 SEX: F LOC: Z.SI04 A PHONE #: [phone] EXAM DATE: 12/04/2018 STATUS: ADM IN FAX #: [phone] RADIOLOGY NO: PAGE 1 Signed ReportBASIC METABOLIC [id number] 07:35:00 Test Item Value Reference Range Interpretation [...] code = 9.1 MG/DL 8.4-10.2 N CA) [id number] 07:35:00 Test Item Value Reference Range Interpretation Comments PHOSPHOROUS (test code = PHOS) 3.7 MG/DL 2.5-4.5 N [id number] 07:35:00 Test Item Value Reference Range Interpretation Comments MAGNESIUM (test code = MAG) 1.9 MG/DL 1.6-2.3 N CBC W/AUTO [id number] 07:25:00 Test Item Value Reference Range Interpretation [...] K/mm3 0.0-0.1 N NRBC#) - XR CHEST [id number] 18:47:00 Patient Name: MOISÉS CANNON Unit No: [id number] EXAMS: CPT CODE: [id number] XR CHEST 1V 71816 EXAM: Portable chest one view. Location code:J9 HISTORY: Pneumothorax COMPARISON: 12/03/2018 Fin dings: Stable position of right-sided chest tube and [...] by: Kraig Elizabeth M.D. CC: Chito Hanson MD; Oumou [place] NP Technologist: RT Janay(R) Transcrpt Date/Tm/Trnsp: 12/03/2018 (184) JuanRR16 Orig Print D/T: S: 12/03/2018 (185) [facility] NAME: MOISÉS CANNON [id number] PHYS: [place] [address] : 1955 AGE: 63 SEX: F LOC: ZCourtney355 A PHONE #: [phone] EXAM DATE: 12/03/2018 STATUS: ADM IN FAX #: [phone] RADIOLOGY NO: PAGE 1 Signed Report- XR CHEST [id number] 07:46:00 Patient Name: MOISÉS CANNON Unit No: [id number] EXAMS: CPT CODE: [id number] XR CHEST 1V 67205 Location of dictation: B2 Portable chest one view. HISTORY: Post Op Thoracotomy COMMENT: Compared to one day prior. A right IJ central line and chest tube are again noted. Postsurgical changes ofpartial lobectomy again noted with slight improved aeration of the right lung. There is now small fluid or thickening of the right interlobar fissure and slightly more pronounced perihilar infiltrates.No lobar consolidation, pneumothorax or effusion seen. Visualized soft tissues and skeletal structures are unremarkable. IMPRESSION: 1. More pronounced perihilar infiltrates with fluid and/or thickening of the right interlobar fissure. 2. Status post partial right lobectomy. No pneumothorax with rightchest tube in place. at 0746 Reported and signed by: Neelima Ghosh M.D. CC: Chito Hanson MD Technologist: Maryjane Giles RT(R) Transcrpt Date/Tm/Trnsp: 12/03/2018 (0746) t.SDR.PXC Orig Print D/T: S: 12/03/2018 (0749) [facility] NAME: MOISÉS CANNON [id number] PHYS: [place] [address] : 1955 AGE: 63 SEX: F LOC: Z.SI04 A PHONE #: [phone] EXAM DATE: 12/03/2018 STATUS: ADM IN FAX #: [phone] RADIOLOGY NO: PAGE 1 Signed ReportBASIC METABOLIC [id number] 04:54:00 Test Item Value Reference Range Interpretation [...] code = 8.8 MG/DL 8.4-10.2 N CA) [id number] 04:54:00 Test Item Value Reference Range Interpretation Comments MAGNESIUM (test code = MAG) 2.0 MG/DL 1.6-2.3 N CBC W/AUTO [id number] 04:29:00 Test Item Value Reference Range Interpretation [...] K/mm3 0.0-0.1 N NRBC#) - XR CHEST [id number] 06:22:00 Patient Name: MOISÉS CANNON Unit No: [id number] EXAMS: CPT CODE: [id number] XR CHEST 1V 83881 AP VIEW OF THE CHEST LOCATION: R16 [...] Jericho Bates, RT(R) Transcrpt Date/Tm/Trnsp: 12/02/2018 (0622) Marlena.JESSICA Orig Print D/T: S: 12/02/2018 (0644) [facility] NAME: MOISÉS CANNON [address] PHYS: [place] [address] : 1955 AGE: 63 SEX: F LOC: ZANAIS Nuñez PHONE #: [phone] EXAM DATE: 12/02/2018 STATUS: ADM IN FAX #: [phone] RADIOLOGY NO: PAGE 1 Signed ReportBASIC METABOLIC [id number] 05:59:00 Test Item Value Reference Range Interpretation [...] code = 8.4 MG/DL 8.4-10.2 N CA) [id number] 05:59:00 Test Item Value Reference Range Interpretation Comments MAGNESIUM (test code = MAG) 2.1 MG/DL 1.6-2.3 N CBC W/AUTO [id number] 05:53:00 Test Item Value Reference Range Interpretation [...] code = 0.00 K/mm3 0.0-0.1 N NRBC#) [id number] 21:37:00 Test Item Value Reference Range Interpretation Comments POTASSIUM (test code = K) 3.2 MMOL/L 3.5-5.1 L Is this a LINE draw? YBASIC METABOLIC [id number] 07:40:00 Test Item Value Reference Range Interpretation [...] code = 8.4 MG/DL 8.4-10.2 N CA) [id number] 07:40:00 Test Item Value Reference Range Interpretation Comments MAGNESIUM (test code = MAG) 1.9 MG/DL 1.6-2.3 N CBC W/AUTO [id number] 07:27:00 Test Item Value Reference Range Interpretation [...] K/mm3 0.0-0.1 N NRBC#) - XR CHEST [id number] 06:27:00 Patient Name: MOISÉS CANNON Unit No: [id number] EXAMS: CPT CODE: [id number] XR CHEST 1V 84866 Exam: Chest portable erect Location: F6 History: Post Op Thoracotomy Comparison: 11/30/2018 Find ings: No change has occurred in the aeration of the lungs. The heart size is unchanged. The mediastinal silhouette is unremarkable. The bony thorax is intact. The right chest tube and right IJ line remain in place. Impression: Stable chest/no change. at 0627 Reported and signed by: Shola Duran M.D. CC: Chito Hanson MDTechnologist: Jericho Bates, RT(R) Transcrpt Date/Tm/Trnsp: 12/01/2018 (626) Ajay Orig Print D/T: S: 12/01/2018 (629) [facility] NAME: MOISÉS CANNON [address] PHYS: [place] [address] : 1955 AGE: 63 SEX: F LOC: Z.SI04 A PHONE #: [phone] EXAM DATE: 12/01/2018 STATUS: ADM IN FAX #: [phone] RADIOLOGY NO: PAGE 1 Signed ReportBASIC METABOLIC [id number] 20:46:00 Test Item Value Reference Range Interpretation [...] code = 8.8 MG/DL 8.4-10.2 N CA) [id number] 20:46:00 Test Item Value Reference Range Interpretation Comments MAGNESIUM (test code = MAG) 1.9 MG/DL 1.6-2.3 N BASIC METABOLIC [id number] 20:42:00 Test Item Value Reference Range Interpretation [...] code = 8.8 MG/DL 8.4-10.2 N CA) [id number] 20:42:00 Test Item Value Reference Range Interpretation Comments MAGNESIUM (test code = MAG) 1.9 MG/DL 1.6-2.3 N CBC W/AUTO [id number] 20:04:00 Test Item Value Reference Range Interpretation [...] 0.00 K/mm3 0.0-0.1 N NRBC#) ARTERIAL BLOOD [id number] 19:53:00 Test Item Value Reference Range Interpretation [...] readback by ZAYRA NOEL & COU by YARIEL at 11/30/2018 7:53: 09 PM ABG L/M (test code = 15 L/MIN L/M) ABG DELIVERY (test code NRBMASK = MARCUS) ABG TEMPERATURE (test 37.0 C >37 code = TEMPA) ABG SITE (test code = AL SITEA) ALLENS TEST (test code NA CHECK = ALLENS) FIO2 (test code = 100 % COHBGFFIO2) - XR CHEST [id number] 19:38:00 Patient Name: MOISÉS CANNON Unit No: [id number] EXAMS: CPT CODE: [id number] XR CHEST 1V 54461 EXAM: CHEST ONE VIEW INDICATION: Post Op Thoracotomy COMPARISON: November 28, 2018 TECHNIQUE: AP view of the chest FINDINGS: The right central venous catheter tip overlies the SVC. The heart size ismildly enlarged. There are diffuse congestive changes bilaterally. There is a right-sided chest tubeseen in place. There are postsurgical changes involving the right lung. No pneumothorax or pleural ef fusion is identified. The osseous structures are normal. IMPRESSION: Mild cardiomegaly with mild congestive changes bilaterally. No pneumothorax is identified. LOCATION: B2 at 1938 Reported and signed by: Mahi Campa MD CC: Chito Hanson MD Technologist: Jo-Ann Hall (RT) Transcrpt Date/Tm/Trnsp: 11/30/2018 (1937) [id number] Orig Print D/T: S: 11/30/2018 (1940) [facility] NAME: MOISÉS CANNON [address] PHYS: [place] [address] : 1955 AGE: 63 SEX: F LOC: ZCourtneyDSU PHONE #: [phone] EXAM DATE: 11/30/2018 STATUS: [facility] FAX #: [phone] RADIOLOGY NO: PAGE 1 Signed ReportHIV 12 AB DIFFERENTIATION 2018-11-28 17:53:00 Test Item Value Reference Range Interpretation Comments AB HIV 1 2 NON REACTIVE NON-REAC NOTE: A NONREAC TIVE RESULT (test code = INDICATES THAT HIV-1 AND VEC51GE) HIV-2ANTIBODIES HAVE NOT BEEN FOUND IN T HIS PATIENT SPECIMEN. ANON- REACTIVE RESULT, HOWEVER , DOES NOT PRECLUDE PREVIO USEXPOSURE OR INFECTION WI TH HIV1. AG HIV1 P24 NON REACTIVE NONE REAC (test code = ORH8V98) PROTHROMBIN [id number] 15:49:00 Test Item Value Reference Range Interpretation Comments PROTHROMBIN TIME 9.7 SECONDS 9.6-11.6 N PATIENT (test code = PTP) INTERNATIONAL NORMAL 0.9 0.8-1.1 N The INR is to be RATIO (test code = INR) used only for monitoring oral anticoagulantth erap y. INDICATION I NR VALUE ---- ---- ---- -------1. Prophylaxis, de ep venous thrombos is, including high risk surgery. 2.0 - 3.0 2. Prophylaxis, deep venous thrombosis, hip surgery, treatm ent for deep venous thrombosis or pulmonary prevention of systemic emboli sm in patients wit h valvular heart disease, atrial fibrillation, tissue heart va lve, or acute myocar dial infarction. 2. 0 - 3.0 3. Flat Optical Element Maker al prosthesis hear t valves, recurre nt systemic emboli sm. 3.0 - 4.5 PTT [id number] 15:49:00 Test Item Value Reference Range Interpretation Comments PTT ACTIVATED (test code = APTT) 23.4 SECONDS 22.0-33.0 N - XR CHEST 2 [id number] 15:47:00 Patient Name: MOISÉS CANNON Unit No: [id number] EXAMS: CPT CODE: [id number] XR CHEST 2 [id number] EXAM: CHEST 2 VIEWS INDICATION: PRE-OP COMPARISON: [...] Campa MD CC: Chito Hanson MD Technologist: [facility] STUDENT ; Christian Villavicencio, RT(R) Transcrpt Date/Tm/Trnsp: 11/28/2018(1547) [id number] Orig Print D/T: S: 11/28/2018 (1688) [facility] NAME: MOISÉS CANNON [id number] PHYS: [place] [address] : 1955 AGE: 63 SEX: F LOC: Z.5MU PHONE #: [phone] EXAM DATE: 11/28/2018 STATUS: PRE IN FAX #: [phone] RADIOLOGY NO: PAGE 1 Signed ReportBASIC METABOLIC [id number] 15:42:00 Test Item Value Reference Range Interpretation [...] 9.2 MG/DL 8.4-10.2 N CA) CBC W/AUTO [id number] 15:32:00 Test Item Value Reference Range Interpretation [...] N NRBC#) - CTA ABD PEL W [id number] 10:28:00 Patient Name: MOISÉS CANNON Unit No: [id number] Report Has Been Amended EXAMS: CPTCODE: [id number] CTA ABD PEL W CONT 86662 Addendum - 11/15/2018 SIGNED 11/15/2018 ADDENDUM: [id number] CT/CTAAPWCONT Addendum: 3-D/MIP reconstructions of the central arteries were created. at 1028 Reported and signed by: Chris Simmons M.D. Transcribed: 11/15/2018 (7239) t.DEBBI.RB24 Report CTA Abdomen and Pelvis with and [...] of retrograde flow within a lumbar artery, atype II endoleak. There is some crescentic thrombus within the stent graft, not flow-limiting. 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 Flow is preserved within the common hepatic, splenic, and left gastric arteries. Superior mesent juanita artery is patent. Bilateral main renal arteries [...] of the aortoiliac stent graft are patent. [facility] NAME: LYSSA CANNON [address] PHYS: [place] [address] : 1955 AGE: 63 SEX: F LOC: Z.CTS PHONE #: [phone] EXAM DATE: 11/06/2018 STATUS: DEP CLI FAX #: [phone] RAD #: D/C DT PAGE 1 Signed Report (CONTINUED) Patient Name: MOISÉS CANNON Unit No: [id number] Report Has Been Amended EXAMS: CPT CODE: [id number] CTA ABD PEL W CONT 92588 (Continued) Bilateral external iliac arteries are patent. Bilateral internal iliac arteries are calcified but patent. 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 Urinary bladder is partially distended. Uterus is been removed. No free pelvic fluid. No acute osseous abnormality. Prior posterior lumbar fusion and laminectomy. Impression: 1. Status post aortobiiliacendoluminal stent graft repair of an aortic aneurysm. The residual sac measures up to 4.5 cm in diameter. 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 2. 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 3. 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 4. Interval right renal infarct. at 1346 Reported and signed by: Chris Smimons M.D. CC: Chito Hanson MD Technologist: Anam Bill, RT(R); Kalen CTDI: DLP: Trnscrpt: 11/06/2018 (1346) t.SDR.RB24 [facility] NAME: MOISÉS CANNON [address] PHYS: Chris Sky MD [place] [id number] : 1955GE: 63 SEX: F LOC: GarlandCTS PHONE #: [phone] EXAM DATE: 11/06/2018 STATUS: DEP CLI FAX #: [phone] RAD #: D/C DT PAGE 2 Signed Report Patient Name: MOISÉS CANNON Unit No: [id number] Report Has Been Amended EXAMS: CPT CODE: [id number] CTA ABD PEL W CONT 59150 (Continued) Orig Print D/T: S: 11/06/2018 (1349) [facility] NAME: MOISÉS CANNON [address] PHYS: Chris Sky MD [place] [id number] : 1955 AGE: 63 SEX: F LOC: GarlandCTS PHONE #: [phone] EXAM DATE: 11/06/2018 STATUS: DEP CLI FAX #: [phone] RAD #: D/C DT PAGE 3 Signed ReportBEDSIDE [id number] 14:50:00 Test Item Value Reference Range Interpretation Comments BEDSIDE CREATININE (test code = 0.6 MG/DL 0.6-1.4 N CREATBED) - CT CHEST [id number] 14:06:00 Patient Name: MIOSÉS CANNON Unit No: [id number] EXAMS: CPT CODE: [id number] CT CHEST W/CONTRAST 64098 EXAM: Chest CT with contrast Location: B2 INDICATION: Lung nodule COMPARISON: Chest x-ray on 12/21/2015 TECHNIQUE: Helical CT of the chest was performed following the administration of 100 mL Isovue-370 IV contrast. 5 mm axial and coronal and sagittal reformatted images were performed. DISCUSSION: Lungs and airways: A 14 mm rounded right upper lobe nodule is identified. This is visible onthe middleware consultant film, but was not evident on the [...] The thoracic aorta is normal in caliber, with moderate thoracic chronic atherosclerosis. No thoracic or dissection is seen. Central pulmonary arteries are unremarkable. No cardiomegaly, pericardial effusion, ormediastinal mass is seen. There is a small hiatal hernia. Lymph nodes: No lymphadenopathy. Bones/soft tissues: There is a partially healed left anterior 3rd rib fracture. No acute fracture or evidenceof bony neoplastic process is seen. 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 Please refer to the CTA abdomen and pelvis performed concurrently. IMPRESSION: 1. COPD. There is a 14 mm rounded right upper lobe noduleabutting the anterior pleural surface. This is visible on the middleware consultant film, and was not present on theprior chest x-ray and November 2015. This is suspicious for malignancy. Further evaluation is recommended with short-term CT chest follow-up in 3 months, PET CT, or tissue sampling. 2. Small hiatal hernia. 3. Celiac artery aneurysm and dissection; please refer to the CT abdomen and pelvis performed concurrently. One or more of the following dose reduction techniques were used: Automated exposure control, adjustment of the mA and/or kV according to patient size, and/or utilization of iterative reconstruction technique. [facility] NAME: MOISÉS CANNON [id number] PHYS: [place] [address] : 1955 AGE: 63 SEX: F LOC: Z.CTS PHONE #: [phone] EXAM DATE: 11/06/2018 STATUS: REG CLI FAX #: [phone] RAD #: D/C DT PAGE 1 Signed Report (CONTINUED) Patient Name: MOISÉS CANNON Unit No: [id number] EXAMS: CPT CODE: [id number] C T CHEST W/CONTRAST 65355 (Continued) DLP: 1708 mGy-cm CTDI: 51 mGy at 1406 Reported and signed by: Jake Menchaca MD CC: Chito Hanson MD Technologist: Anam Bill, RT(R); Kalen CTDI: DLP: Trnscrpt: 11/06/2018 (1406) t.SDR.BC0 [facility] NAME: MOISÉS CANNON [address] PHYS: Chris Sky MD [place], [place] [address]CGP: 1955 AGE: 63 SEX: F LOC: Mixbook PHONE #: [phone] EXAM DATE: 11/06/2018 STATUS: REG CLI FAX #: [phone] RAD #: D/C DT PAGE 2 Signed Report Patient Name: MOISÉS CANNON Unit No: [id number] EXAMS: CPT CODE: [id number] CT CHEST W/CONTRAST 57836 (Continued)Orig Print D/T: S: 11/06/2018 (1409) [facility] NAME: MOISÉS CANNON [address] PHYS: [place] [address] : 1955 AGE: 63 SEX: F LOC:Mixbook PHONE #: [phone] EXAM DATE: 11/06/2018 STATUS: REG CLI FAX #: [phone] RAD #: D/C DT PAGE 3 Signed Report- CTA ABD PEL W [id number] 13:46:00 Patient Name: MOISÉS CANNON Unit No: [id number] EXAMS: CPT CODE: [id number] CTA ABD PEL WCONT 04502 CTA Abdomen and Pelvis with and without [...] as a result of the abdominal aortic ane urysm. Mild scarring and/or atelectasis of the lung [...] iliac arteries are patent. Bilateral internal iliac arteriesare calcified but patent. There is a dissection [...] as detailed above. 2. Interval development of dissection/aneur ysm of the mid celiac trunk, up to 1.1 cm in diameter. 3. 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 4. Interval right renal infarct. [facility] NAME: MOISÉS CANNON [id number] PHYS: [place] [address] : 1955 AGE: 63 SEX: F LOC: GarlandCTS PHONE #: [phone] EXAM DATE: 11/06/2018 STATUS: REG CLI FAX #: [phone] RAD #:D/C DT PAGE 1 Signed Report (CONTINUED) Patient Name: MOISÉS CANNON Unit No: [id number] EXAMS: CPT CODE: [id number] CTA ABD PEL W CONT 51337 (Continued) at 1346 Reported and signed by: Chris Simmons M.D. CC: Chito Hanson MD Technologist: Anam Bill RT(R); Kalen CTDI: DLP: Trnscrpt: 11/06/2018 (1346) t.SDR.RB24 [facility] NAME: MOISÉS CANNON [address] [address] PHYS: Chris Sky MD [place] [id number] : 1955 AGE: 63 SEX: F LOC: GarlandCTS PHONE #: [phone] EXAM DATE: 11/06/2018 STATUS: REG CLI FAX #: [phone] RAD #: D/C DT PAGE 2 Signed Report Patient Name:MOISÉS CANNON Unit No: [id number] EXAMS: CPT CODE: [id number] CTA ABD PEL W CONT 77293 (Continued) Orig Print D/T: S: 11/06/2018 (1349) [facility] NAME: MOISÉS CANNON [address] PHYS: [place] [address] : 1955 AGE: 63 SEX: F LOC: GarlandCTS PHONE #: [phone] EXAM DATE: 11/06/2018 STATUS: REG CLI FAX #: [phone] RAD #: D/C DT PAGE 3 Signed ReportCBC W/PLT COUNT & AUTO [id number] 05:53:00 Test Item Value Reference Range Interpretation [...] (BEAKER) (test code = 2801) BASIC METABOLIC [id number] 05:36:00 Test Item Value Reference Range Interpretation [...] DIALYSIS PATIEN TS. CT, CTA AAA, W/ RAVINDER.EXT.[id number] 18:40:00Addendum BeginsREPORT STATUS:A Addendum: I agree with the previously described non vascular findings. Additionally there is mild skin thickening in the lower anterior abdominal wall and subcutaneous edema which may be secondary to cellulitis. Signed: Dain [place] Verified Date/Time: 09/17/2018 18:40:47 Reading Location: [place] [address] Angio Body Reading RoomAddendum EndsFINAL REPORT CT angiography of the abdominal aorta with runoff, 17 September 2018INDICATION: This is a 63 year old female with a diagnosis of abdominal aortic aneurysm presents for assessment. Note, a runoff study was requested in with the above indication. This study is performed in an attempt to avoid an invasive procedure. TECHNIQUE: Spiral acquisition before and during intravenous contrast administration using a [employer] multidetector CT scanner. Images were obtained before [...] no luminal obstruction identified. Small type II endoleakis identified, at image 152, at L4 level, from a right-sided lumbar artery. No prior examination is available for comparison and therefore the aortic volume is not provided. There is no evidence of acute aortic pathology, specifically, there is no dissection, intramural hematoma, or contained rupture. Quantitative dimensions of the abdominal aorta are as follows: 2.0 cm at the mesenteric segment; 1.8cm at the renal segment; 4.2 x 3.7 [...] that is not well filled by contrast asreflected by some cortical scarring is seen in the lower pole of the right kidney. No prior examination is available for comparison. The common iliac, external iliac, and the common femoral arteries, bilaterally, are widely patent. Minimal nonobstructive atherosclerosis is seen mostly in the common iliac arteries. The left and the right internal iliac arteries are patent with calcific atherosclerosisidentified. There is either localised atherosclerotic ulceration versus localised dissection flap inthe distal right common femoral artery, at image [...] widely patent. The left anterior tibial artery iswell seen down to level of the ankle, [...] well assessed by CT angiography as enteric contrastis not given. No obvious bowel dilation is identified. Bilateral fat-containing inguinal hernia is seen. No free air free fluid seen abdomen and pelvis. The prostate gland is unremarkable. The uterus is not well appreciated. No obvious abnormal adnexal mass is seen and CT is not optimised in assessment of pelvic gynaecological structures. No free air free fluid seen abdomen and pelvis. No significantretroperitoneal adenopathy is identified. In the bony windows, no acute bony pathology is seen. However, surgical material is identified in the lower lumbar vertebral body with significant beam hardening artefact and streak artefact identified, and associated laminectomy is seen. Correlate with operati ve report. CONCLUSIONS: 1. Endostent is placed in the infrarenal abdominal aorta. The stent appears to be well positioned. Type II endoleak, arising from a right lumbar artery at L4 level is identified. See arrows in PACS for details. There is no evidence of acute aortic pathology, specifically, thereis no dissection, intramural hematoma, or contained rupture. Quantitative dimension of the abdominalaorta are as noted. Maximum diameter measure 4.2 [...] dictated regarding the non-vascular findings by the Construction Field Engineer Radiologist. Signed: Morteza [facility] Verified Date/Time: 09/17/2018 14:46:36 Reading Location: [place] [address] Cardiology MRI BASI METABOLIC [id number] 07:21:00 Test Item Value Reference Range Interpretation [...] S NOT APPLICABLE FOR DIALYSIS PATIEN TS. [id number] 07:20:00 Test Item Value Reference Range Interpretation Comments PHOSPHORUS (BEAKER) (test code = 3.8 mg/dL 2.5-4.5 604) [id number] 07:15:00 Test Item Value Reference Range Interpretation Comments MAGNESIUM (BEAKER) (test code = 1.9 mg/dL 1.5-3.0 627) CBC W/PLT COUNT & AUTO [id number] 06:56:00 Test Item Value Reference Range Interpretation [...] (BEAKER) (test code = 2801) BASIC METABOLIC [id number] 05:51:00 Test Item Value Reference Range Interpretation [...] PATIEN TS. CBC W/PLT COUNT & AUTO [id number] 05:23:00 Test Item Value Reference Range Interpretation [...] 0-0 H PERCENT (BEAKER) (test code = 2803) B-TYPE NATRIURETIC FACTOR (BNP)2018-09-15 05:51:00 Test Item Value Reference Range Interpretation Comments B-TYPE NATRIURETIC PEPTIDE (BEAKER) 418 pg/mL 0-100 H (test code = 700) [id number] 05:49:00 Test Item Value Reference Range Interpretation Comments PHOSPHORUS (BEAKER) (test code = 1.5 mg/dL 2.5-4.5 LL 604) BASIC METABOLIC [id number] 05:45:00 Test Item Value Reference Range Interpretation [...] S NOT APPLICABLE FOR DIALYSIS PATIEN TS. [id number] 05:39:00 Test Item Value Reference Range Interpretation Comments MAGNESIUM (BEAKER) (test code = 2.3 mg/dL 1.5-3.0 627) CBC W/PLT COUNT & AUTO [id number] 05:24:00 Test Item Value Reference Range Interpretation [...] (BEAKER) (test code = 2801) BASIC METABOLIC [id number] 21:36:00 Test Item Value Reference Range Interpretation [...] PATIEN TS. CBC W/PLT COUNT & AUTO [id number] 16:26:00 Test Item Value Reference Range Interpretation [...]
[2022-05-24 15:32] LABS: Absolute Lymphocytes (CBC) 1.7 K/uL (0.7-4.9); Hematocrit 42.2 % (36.0-45.0); Lymphocytes % 23.3 % (15.3-44.8); MPV 6.9 fL (7.6-11.3); RBC Red Blood Cell Count 4.49 M/uL (3.86-4.86)
[2022-05-24 15:33] LABS: Protime INR 1.05
--- NOTE | 2022-05-24 15:57 | RAD REPORT ---
EXAM DESCRIPTION: RAD - Chest Single View - 05/24/2022 3:37 pm CLINICAL HISTORY: CHEST PAIN Chest pain. COMPARISON: Chest Single View dated 04/02/2020; Chest Single View dated 11/30/2019; Chest Pa And Lat ( 2 Views) dated 08/31/2019; Chest Single View dated 02/28/2019 FINDINGS: Portable technique limits examination quality. The lungs are grossly clear. Blunted right costophrenic angle, chronic. The heart is normal in size. No displaced fractures. IMPRESSION: No acute intrathoracic process suspected.
[2022-05-24 15:58] LABS: SARS-CoV-2 Antigen Rapid Res Negative (Negative)
[2022-05-24 16:14] LABS: Troponin High Sensitivity 4.2 pg/mL (<58.9)
--- NOTE | 2022-05-24 16:50 | RAD REPORT ---
EXAM DESCRIPTION: CT - Angio Aorta For Dissection - 05/24/2022 4:37 pm CLINICAL HISTORY: Chest pain radiating to the back. chest pain with history of AAA COMPARISON: Angio Aorta For Dissection dated 09/14/2018 TECHNIQUE: CT angiography of the aorta was performed with MIPs. All CT scans are performed using dose optimization technique as appropriate and may include automated exposure control or mA/KV adjustment according to patient size. FINDINGS: A left aortic arch is present with normal branching pattern of the great vessels.Moderate atherosclerosis is seen involving the aortic arch. No thoracic aortic aneurysm evident. No dissection present. Narrowing of the ostium of the celiac axis is seen with mild poststenotic dilatation. Mild atherosclerosis at the origin of SMA. Both renal arteries are patent. Aortic stent in endograft is s een within abdominal aortic aneurysm. No acute finding related is suspected. No evidence of pulmonary embolism. Prominent COPD. Mild fatty liver. The spleen, pancreas and adrenal glands are normal. Postsurgical changes or signifi cant atrophy of the posterior aspect of the right kidney noted. Left kidney contains a small exophyti c cyst anteriorly measuring 13 mm. No bowel obstruction, free fluid or abscess.No pathologic enlarged lymphadenopathy identified. Hardware is in place lumbar spine with posterior laminectomy. IMPRESSION: Advanced COPD. No acute aortic finding is evident. Abdominal aortic aneurysm is present with endograft in place. No acute finding related to this is andrea pected.
[2022-05-24 17:05] LABS: Albumin 3.4 g/dL (3.4-5.0); Bilirubin Direct 0.1 mg/dL (0-0.2); Bilirubin Total 0.5 mg/dL (0.2-1.0); Magnesium 2.1 mg/dL (1.8-2.4); Protein, Total 7.2 g/dL (6.4-8.2)
--- NOTE | 2022-05-24 18:03 | EDPHYS ---
Physician Documentation [facility] Name: Amanda Malik Age: 66 yrs Sex: Female : 1955 Arrival Date: 05/24/2022 Time: 14:49 Bed 8 Private MD: ED Physician Rd Chamorro HPI: 05/24 15:10 This 66 yrs old Female presents to ER via Wheelchair with complaints of Chest Pain, cp Back Pain. 15:10 The patient or guardian reports chest pain that is located primarily in the anterior cp chest wall. Onset: today, about 1300. The pain radiates to low back. 15:10 Associated signs and symptoms: Pertinent negatives: abdominal pain, cough, lower cp extremity pain, lower extremity swelling, shortness of breath, syncope, vomiting. Duration: The patient or guardian reports a single episode, that is now resolved. 15:10 Patient reports history of Aortic Aneurysm repair approximately 6 years ago. cp Historical: - Home Meds: 14:58 Albuterol Inhl [Active]; atorvastatin 10 mg Oral tab 1 tab once daily [Active]; Breo bm7 Ellipta 200-25 mcg/dose inhalation dsdv 1 puff once daily [Active]; escitalopram oxalate 20 mg Oral tab 1 tab once daily [Active]; metoprolol succinate 25 mg Oral Tb24 1 tab BID [Active]; omeprazole 20 mg Oral cpDR 1 cap once daily [Active]; - PMHx: 14:58 COPD; GERD; High Cholesterol; Hypertension; AAA; bm7 - PSHx: 14:58 back and shoulder; Hyst; AAA; bm7 - Immunization history:: Adult Immunizations up to date, Client reports receiving the 2nd dose of the Covid vaccine, Client reports receiving the 1st dose of the Covid vaccine. - Social history:: Smoking status: Patient/guardian denies using tobacco, the patient reports quitting approximately 15 years ago. ROS: 15:15 Constitutional: Negative for body aches, chills, fever, poor PO intake. cp 15:15 Eyes: Negative for injury, pain, redness, and discharge. cp 15:15 Neck: Negative for pain with movement, pain at rest, stiffness. 15:15 Cardiovascular: Positive for chest pain, Negative for edema, palpitations. 15:15 Respiratory: Negative for cough, shortness of breath, wheezing. 15:15 Abdomen/GI: Negative for abdominal pain, nausea, vomiting, and diarrhea. 15:15 Back: Positive for radiated pain. 15:15 : Negative for urinary symptoms. 15:15 Neuro: Negative for altered mental status, dizziness, headache, syncope, weakness. 15:15 All other systems are negative. Exam: 15:20 Constitutional: The patient appears in no acute distress, alert, awake, cp non-diaphoretic, non-toxic, well developed, well nourished. 15:20 Head/Face: Normocephalic, atraumatic. cp 15:20 Eyes: Periorbital structures: appear normal, Conjunctiva: normal, no exudate, no injection, Sclera: no appreciated abnormality, Lids and lashes: appear normal, bilaterally. 15:20 ENT: External ear(s): are unremarkable, Nose: is normal, Mouth: is normal, Posterior pharynx: is normal, airway is patent, no erythema, no exudate. 15:20 Neck: ROM/movement: is normal, is supple, without pain, no range of motions limitations. 15:20 Chest/axilla: Inspection: normal. 15:20 Cardiovascular: Rate: normal, Rhythm: regular, JVD: is not appreciated. 15:20 Respiratory: the patient does not display signs of respiratory distress, Respirations: normal, no use of accessory muscles, no retractions, labored breathing, that is mild, Breath sounds: are clear throughout, no decreased breath sounds, no rales, no stridor, no wheezing. 15:20 Abdomen/GI: Inspection: abdomen appears normal, Palpation: abdomen is soft and non-tender, in all quadrants. 15:20 Back: CVA tenderness, is absent. 15:20 Neuro: Orientation: to person, place \T\ time. Mentation: is normal, Motor: moves all fours, strength is normal. Vital Signs: 14:55 BP 113 / 70 LA Sitting (auto/reg); Pulse 78; Resp 16; Temp 99.0(TE); Pulse Ox 99% on bm7 R/A; Weight 57.61 kg (R); Height 5 ft. 0 in. (152.40 cm); Pain 10/10; 15:01 BP 122 / 70 RA Sitting (man/reg); Pulse 78; bm7 15:23 BP 137 / 64; Pulse 56; Resp 20; Pulse Ox 100% on R/A; Pain 2/10; eh3 16:30 BP 115 / 70; Pulse 57; Resp 12; Pulse Ox 97% on R/A; eh3 17:45 BP 108 / 67; Pulse 58; Resp 14; Pulse Ox 98% on R/A; eh3 18:45 BP 106 / 54; Pulse 65; Resp 20; Pulse Ox 94% on R/A; eh3 19:45 BP 104 / 59; Pulse 62; Resp 17; Pulse Ox 96% on R/A; eh3 14:55 Body Mass Index 24.80 (57.61 kg, 152.40 cm) bm7 MDM: 15:07 Patient medically screened. [facility] 17:15 Data reviewed: vital signs, nurses notes, lab test result(s), EKG, radiologic studies, cp CT scan, plain films. 17:15 Test interpretation: by ED physician or midlevel provider: ECG, plain radiologic cp studies. Response to treatment: the patient's symptoms have markedly improved after treatment, and as a result, I will admit patient. 18:00 Physician consultation: Jitendra Nunes was contacted at 18:00, regarding admission, to the telemetry unit. patient's condition, and will see patient in ED, shortly. 05/24 15:07 Order name: Basic Metabolic Panel; Complete Time: 16:17 ld1 05/24 16:17 Interpretation: Reviewed. 05/24 15:07 Order name: CBC with Diff; Complete Time: 15:44 ld1 05/24 15:45 Interpretation: Normal except: MPV 6.9; MN% 14.9. 05/24 15:07 Order name: Troponin HS; Complete Time: 16:17 ld1 05/24 16:17 Interpretation: Reviewed. 05/24 15:11 Order name: LFT's; Complete Time: 17:08 05/24 17:08 Interpretation: Normal except: GLOB 3.8; A/G 0.9. 05/24 15:11 Order name: Magnesium; Complete Time: 17:08 05/24 15:11 Order name: NT PRO-BNP; Complete Time: 17:08 05/24 15:07 Order name: XRAY Chest (1 view); Complete Time: 16:06 [facility] 05/24 15:07 Order name: EKG; Complete Time: 15:08 ld1 05/24 15:07 Order name: Cardiac monitoring; Complete Time: 15:14 ld1 05/24 15:07 Order name: EKG - Nurse/Tech; Complete Time: 15:19 ld1 05/24 15:11 Order name: PT-INR; Complete Time: 15:44 cp 05/24 15:11 Order name: Lipase; Complete Time: 17:08 cp 05/24 15:17 Order name: CT Aorta for Dissection; Complete Time: 16:55 cp 05/24 16:56 Interpretation: Report reviewed. cp 05/24 15:19 Order name: SARS RAPID; Complete Time: 16:06 jl7 05/24 15:07 Order name: IV Saline Lock; Complete Time: 15:19 ld1 05/24 15:07 Order name: Labs collected and sent; Complete Time: 15:19 ld1 05/24 15:07 Order name: O2 Per Protocol; Complete Time: 15:14 ld1 05/24 15:07 Order name: O2 Sat Monitoring; Complete Time: 15:14 ld1 Administered Medications: No medications were administered Disposition Summary: 05/24/22 18:02 Hospitalization Ordered Hospitalization Status: Observation cp Location: Telemetry/MedSurg (observation) cp Condition: Stable cp Problem: new cp Symptoms: are resolved cp Bed/Room Type: Standard Room Assignment: [facility](05/24/22 18:46) Provider: Chris Bautista(05/24/22 19:02) la1 Diagnosis - Chest pain, unspecified cp Forms: - Medication Reconciliation Form cp - SBAR form cp Signatures: Dispatcher [employer] Catherine Padilla RN RN dw Anderson, Corey, MD MD cha Attema, Lee, CONDUCTOR PULLMAN-C CONDUCTOR PULLMAN-Cla1 Rd Daniel PA PA cp Abby Osorio, RN RN 7 Shaylee Walker RN RN ld1 Corrections: (The following items were deleted from the chart) 15:00 14:58 Home Meds: cyclobenzaprine 10 mg Oral tab 1 tab 3 times per day; sd beaver 18:46 18:02 cp dw 19:02 18:02 Jitendra Nunes cp la1
--- NOTE | 2022-05-24 18:03 | ER ---
Nurse's Notes [facility] Name: Amanda Malik Age: 66 yrs Sex: Female : 1955 Arrival Date: 05/24/2022 Time: 14:49 Bed 8 Private MD: Diagnosis: Chest pain, unspecified Presentation: 05/24 14:55 Chief complaint: Patient states: I started having really bad chest and back pain and I bm7 feel like im having a heart attack. I have a AAA and a CT scan I had done says that it is leaking. Coronavirus screen: At this time, the client does not indicate any symptoms associated with coronavirus-19. Ebola Screen: No symptoms or risks identified at this time. Initial Sepsis Screen: Does the patient meet any 2 criteria? No. Patient's initial sepsis screen is negative. Does the patient have a suspected source of infection? No. Patient's initial sepsis screen is negative. Risk Assessment: Do you want to hurt yourself or someone else? Patient reports no desire to harm self or others. Onset of symptoms was May 24, 2022 at 13:00. 14:55 Method Of Arrival: Wheelchair bm7 14:55 Acuity: EMILY 2 bm7 Triage Assessment: 14:58 General: Appears in no apparent distress. comfortable, Behavior is calm, cooperative, bm7 appropriate for age. Pain: Complains of pain in chest Pain radiates to back. EENT: No deficits noted. No signs and/or symptoms were reported regarding the EENT system. Neuro: No deficits noted. Cardiovascular: Reports chest pain, Chest pain is described as mild, radiates back. Respiratory: No deficits noted. GI: No deficits noted. No signs and/or symptoms were reported involving the gastrointestinal system. : No deficits noted. No signs and/or symptoms were reported regarding the genitourinary system. Derm: No deficits noted. No signs and/or symptoms reported regarding the dermatologic system. Musculoskeletal: No deficits noted. No signs and/or symptoms reported regarding the musculoskeletal system. Historical: - Home Meds: 14:58 Albuterol Inhl [Active]; atorvastatin 10 mg Oral tab 1 tab once daily [Active]; Breo bm7 Ellipta 200-25 mcg/dose inhalation dsdv 1 puff once daily [Active]; escitalopram oxalate 20 mg Oral tab 1 tab once daily [Active]; metoprolol succinate 25 mg Oral Tb24 1 tab BID [Active]; omeprazole 20 mg Oral cpDR 1 cap once daily [Active]; - PMHx: 14:58 COPD; GERD; High Cholesterol; Hypertension; AAA; bm7 - PSHx: 14:58 back and shoulder; Hyst; AAA; bm7 - Immunization history:: Adult Immunizations up to date, Client reports receiving the 2nd dose of the Covid vaccine, Client reports receiving the 1st dose of the Covid vaccine. - Social history:: Smoking status: Patient/guardian denies using tobacco, the patient reports quitting approximately 15 years ago. Screenin:19 Abuse screen: Denies threats or abuse. Denies injuries from another. Nutritional eh3 screening: No deficits noted. Tuberculosis screening: No symptoms or risk factors identified. Fall Risk None identified. Assessment: 15:19 General: Appears in no apparent distress. comfortable, Behavior is calm, cooperative, eh3 appropriate for age. Pain: Complains of pain in right clavicle, anterior aspect of right upper chest and mid-sternal area Pain radiates to right posterior upper chest wall Pain currently is 2 out of 10 on a pain scale. at worst was 10 out of 10 on a pain scale. Pain began 2 hours ago. Neuro: Level of Consciousness is awake, alert, obeys commands, Oriented to person, place, time, situation. Cardiovascular: Capillary refill < 3 seconds Patient's skin is warm and dry. Respiratory: Airway is patent Respiratory effort is even, unlabored. GI: No signs and/or symptoms were reported involving the gastrointestinal system. : No signs and/or symptoms were reported regarding the genitourinary system. EENT: No signs and/or symptoms were reported regarding the EENT system. Derm: No signs and/or symptoms reported regarding the dermatologic system. Musculoskeletal: No signs and/or symptoms reported regarding the musculoskeletal system. 16:19 Reassessment: pure wick in place, sheets changed, elevated feet. tp1 16:54 Reassessment: Patient and/or family updated on plan of care and expected duration. Pain eh3 level reassessed. Patient is alert, oriented x 3, equal unlabored respirations, skin warm/dry/pink. 17:49 Reassessment: Patient and/or family updated on plan of care and expected duration. Pain eh3 level reassessed. Patient is alert, oriented x 3, equal unlabored respirations, skin warm/dry/pink. 19:10 Reassessment: Patient and/or family updated on plan of care and expected duration. Pain eh3 level reassessed. Patient is alert, oriented x 3, equal unlabored respirations, skin warm/dry/pink. BP dropped to 95/60 at 1900. Repositioned pt and BP increased to 128/92. 20:00 Reassessment: Attempted to call report to 4th floor, nurse stated bed still unassigned. eh3 Will attempt to called report again in 15 mins. Vital Signs: 14:55 BP 113 / 70 LA Sitting (auto/reg); Pulse 78; Resp 16; Temp 99.0(TE); Pulse Ox 99% on bm7 R/A; Weight 57.61 kg (R); Height 5 ft. 0 in. (152.40 cm); Pain 10/10; 15:01 BP 122 / 70 RA Sitting (man/reg); Pulse 78; bm7 15:23 BP 137 / 64; Pulse 56; Resp 20; Pulse Ox 100% on R/A; Pain 2/10; eh3 16:30 BP 115 / 70; Pulse 57; Resp 12; Pulse Ox 97% on R/A; eh3 17:45 BP 108 / 67; Pulse 58; Resp 14; Pulse Ox 98% on R/A; eh3 18:45 BP 106 / 54; Pulse 65; Resp 20; Pulse Ox 94% on R/A; eh3 19:45 BP 104 / 59; Pulse 62; Resp 17; Pulse Ox 96% on R/A; eh3 14:55 Body Mass Index 24.80 (57.61 kg, 152.40 cm) bm7 Vitals: 14:58 The patient's bilateral blood pressures are equal. bm7 ED Course: 14:49 Patient arrived in ED. rg4 14:58 Triage completed. bm7 14:58 Arm band placed on right wrist. bm7 15:03 Rd Daniel PA is PHCP. cp 15:03 Rd Chamorro MD is Attending Physician. cp 15:13 Karen Saini, RN is Primary Nurse. 3 15:19 Patient has correct armband on for positive identification. Bed in low position. Call 3 light in reach. Side rails up X2. Adult w/ patient. Client placed on continuous cardiac and pulse oximetry monitoring. NIBP monitoring applied. Door closed. Noise minimized. Lights dimmed. Warm blanket given. 15:19 Inserted saline lock: 20 gauge in right antecubital area, using aseptic technique. ld1 Blood collected. 15:19 No provider procedures requiring assistance completed. Patient maintains SpO2 eh3 saturation greater than 95% on room air. 15:24 LFT's Sent. eh3 15:24 Magnesium Sent. eh3 15:24 NT PRO-BNP Sent. eh3 15:24 PT-INR Sent. eh3 15:24 Lipase Sent. eh3 15:39 XRAY Chest (1 view) In Process Unspecified. EDMS 15:42 SARS RAPID Sent. eh3 16:39 CT Aorta for Dissection In Process Unspecified. EDMS 16:54 Client placed on continuous cardiac and pulse oximetry monitoring. NIBP monitoring eh3 applied. Pure wick in place. 17:15 Diet: Patient given snack. Patient given water. Tolerated well. eh3 17:38 Cleaned of incontinence. pure wick leaked into brief. Changed into new dry brief and eh3 replaced pure wick. 18:01 Jitendra Nunes is Hospitalizing Provider. cp 19:02 Chris Bautista MD is Hospitalizing Provider. la1 20:22 Patient admitted, IV remains in place. aa9 Administered Medications: No medications were administered Medication: 15:19 VIS not applicable for this client. eh3 Outcome: 18:02 Decision to Hospitalize by Provider. cp 20:21 Admitted to Tele accompanied by tech, via wheelchair, room 403, with chart, Report aa9 called to Maryanne IVERSON 20:21 Condition: stable 20:21 Instructed on the need for admit. 20:45 Patient left the ED. eh3 Signatures: Dispatcher [employer] EDMS Jitendra Nunes, MAMMALOGY TEACHER-C MAMMALOGY TEACHER-Cla1 Rd Daniel PA PA cp Garcia, Rubi rg4 Abby Osorio, RN RN bm7 Shaylee Walker RN RN ld1 Jammie Reynoso, RN RN tp1 Karen Saini, ZAYRA RN eh3 Hedy Auguste, RN RN aa9 Corrections: (The following items were deleted from the chart) 15:00 14:58 Home Meds: cyclobenzaprine 10 mg Oral tab 1 tab 3 times per day; bm7 bm7
--- NOTE | 2022-05-24 19:58 | P.HP ---
Certification for Inpatient Patient admitted to: Observation With expected LOS: <2 Midnights Patient will require the following post-hospital care: None Practitioner: I am a practitioner with admitting privileges, knowledge of patient current condition, hospital course, and medical plan of care. Services: Services provided to patient in accordance with Admission requirements found in Title 42 Section 412.3 of the Code of Federal Regulations <Jitendra Nunes Savannah Ku - Last Filed: 05/24/22 19:55> Patient History Date of Service: 05/24/22 Reason for admission: Chest pain History of Present Illness: 66-year-old female with history of COPD, GERD, hypertension, hyperlipidemia, abdominal aortic aneurysm presents the emergency department with chest pain she reports her pain began while at rest at around 1300 today pain was described as sharp/stabbing radiating to the back she denies similar episodes in the past. She is evaluated in the emergency department her initial high-sensitivity troponin was 4.2 EKG without STEMI criteria present chest x-ray negative for any acute findings CT dissection protocol showed advanced COPD, no acute aortic finding, abdominal aortic aneurysm present with endograft in place no acute finding related to this suspected. ED provider wishes to admit patient to observation for ACS rule out. 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 - Family History Sister -: Cancer Father -: Heart disease, Lung disease, Diabetes Mother -: Other (see notes) Notes: COPD Osteoporosis - Social History Smoking Status: Former smoker Alcohol use: Yes CD- Drugs: No Caffeine use: Yes Place of Residence: Home <Jitendra Nunes - Last Filed: 05/24/22 19:55> Date of Service: 05/25/22 <Chris Bautista - Last Filed: 05/25/22 16:27> Allergies No Known Drug Allergies Allergy (Verified 05/24/22 21:32) Unknown No Known Allergies Allergy (Uncoded 02/28/19 23:32) Unknown Home Medications: Atorvastatin Calcium [Lipitor*] 10 mg PO BEDTIME 05/21/16 Metoprolol Succinate [Toprol Xl*] 50 mg PO BEDTIME 05/21/16 Escitalopram Oxalate 20 mg PO BEDTIME 02/28/19 Fluticasone/Vilanterol [Breo Ellipta 200-25 Mcg INH] 1 each IH BEDTIME 02/28/19 Omeprazole 20 mg PO BEDTIME 02/28/19 Ipratropium/Albuterol Sulfate [Iprat-Albut 0.5-3(2.5) mg/3 ml] 3 ml IH QIDP PRN 11/30/19 Losartan/Hydrochlorothiazide [Losartan-Hctz 50-12.5 mg Tab] 1 tab PO BEDTIME 05/24/22 Review of Systems 10-point ROS is otherwise unremarkable Cardiovascular: Chest Pain <Jitendra Nunes - Last Filed: 05/24/22 19:55> Physical Examination - Physical Exam General: Alert, In no apparent distress, Oriented x3 HEENT: Atraumatic, PERRLA, Mucous membr. moist/pink, EOMI, Sclerae nonicteric Neck: Supple, 2+ carotid pulse no bruit, No LAD, Without JVD or thyroid abnormality Respiratory: Clear to auscultation bilaterally, Normal air movement Cardiovascular: Regular rate/rhythm, Normal S1 S2 Gastrointestinal: Normal bowel sounds, No tenderness Musculoskeletal: No tenderness Integumentary: No rashes Neurological: Normal speech, Normal strength at 5/5 x4 extr, Normal tone, Normal affect - Studies Laboratory Data (last 24 hrs) 05/24/22 15:17: PT 11.6, INR 1.05 05/24/22 15:17: Magnesium 2.1, Total Bilirubin 0.5, AST 16, ALT 21, Alkaline Phosphatase 81, Lipase 125 05/24/22 15:17: WBC 7.30, Hgb 14.2, Hct 42.2, Plt Count 258 05/24/22 15:17: Sodium 141, Potassium 4.0, BUN 8, Creatinine 0.69, Glucose 93 <Jitendra Nunes - Last Filed: 05/24/22 19:55> - Studies Laboratory Data (last 24 hrs) 05/24/22 15:17: Magnesium 2.1, Total Bilirubin 0.5, AST 16, ALT 21, Alkaline Phosphatase 81, Lipase 125 <Chris Bautista - Last Filed: 05/25/22 16:27> Assessment and Plan - Plan Assessment: Chest pain rule out ACS Hypertension hyperlipidemia GERD COPD AAA S/P endograft stenting Plan: Chest pain rule out ACS: Trend troponins, monitor on telemetry, cardiology consulted. Aspirin, statin, beta-esteban therapy in place. Hypertension: Obtain and continue medications, initiate beta-esteban therapy given chest pain and concern for possible ACS. hyperlipidemia: Continue atorvastatin 40 mg GERD: Daily PPI, may be contributing to chest pain. COPD: As needed nebulizer treatments patient is former smoker. AAA S/P endograft stenting: CT dissection protocol performed, stable no acute findings related to aortic aneurysm/endograft DVT PPX: Lovenox Code status: Full Discharge Plan: Home Plan to discharge in: 24 Hours - Advance Directives Does patient have a Living Will: No Does patient have a Durable POA for Healthcare: No - Code Status/Comfort Care Code Status Assessed: Yes (Full code) Critical Care: No Time Spent Managing Pts Care (In Minutes): 55 <Jitendra Nunes - Last Filed: 05/24/22 19:55> Physician Review: Patient Assessed, Agree with Above Assessment and Plan <Chris Bautista - Last Filed: 05/25/22 16:27>
[2022-05-24] MEDS ORDERED: MORPHINE 2 MG/ML SYR IV PRN (20:42)
[2022-05-24] MEDS ORDERED: ONDANSETRON 4 MG/2 ML VIAL IV PRN (20:42)
[2022-05-24 20:57] VITALS: BMI 24.6
[2022-05-24] MEDS: ATORVASTATIN 40 MG TAB PO SCH (22:09)
[2022-05-24 23:24] LABS: Bilirubin Direct 0.1 mg/dL (0-0.2); Bilirubin Total 0.4 mg/dL (0.2-1.0); Protein, Total 6.5 g/dL (6.4-8.2); Troponin High Sensitivity 6.1 pg/mL (<58.9)
[2022-05-25 04:21] LABS: Absolute Lymphocytes (CBC) 1.5 K/uL (0.7-4.9); Hematocrit 40.7 % (36.0-45.0); Lymphocytes % 9.4 % (15.3-44.8); MCV 84.6 fL (80-100); MPV 6.7 fL (7.6-11.3); RBC Red Blood Cell Count 4.81 M/uL (3.86-4.86)
[2022-05-25 04:52] LABS: Albumin 2.4 g/dL (3.4-5.0); Potassium 3.3 mmol/L (3.5-5.1); Protein, Total 6.9 g/dL (6.4-8.2); Troponin High Sensitivity 13.6 pg/mL (<58.9)
[2022-05-25] MEDS: METOPROLOL TAR 25 MG TAB PO SCH ×2 (06:00→16:01)
[2022-05-25] MEDS: PANTOPRAZOLE 40MG TABLET PO SCH (06:28)
[2022-05-25] MEDS: ENOXAPARIN 40 MG/0.4 ML SQ SCH (08:18)
[2022-05-25] MEDS: ASPIRIN EC 81 MG TAB PO SCH (08:18)
[2022-05-25] MEDS ORDERED: POTASSIUM CL SA 10 MEQ TAB PO ONE ×2 (09:00→21:00)
--- NOTE | 2022-05-25 16:20 | P.PN ---
Subjective Date of Service: 05/25/22 Chief Complaint: Chest pain Subjective: No new changes No acute events since admission. She reports that she has persistent shortness of breath with exertion. Denies any current chest pain. Review of Systems 10-point ROS is otherwise unremarkable Respiratory: SOB with Excertion Physical Examination - Vital Signs Temperature: 97.1 F Blood Pressure: 99/51 Pulse: 73 Respirations: 18 Pulse Ox (%): 91 - Physical Exam General: Alert, In no apparent distress, Oriented x3 HEENT: Atraumatic, PERRLA, Mucous membr. moist/pink, EOMI, Sclerae nonicteric Neck: Supple, JVD not distended Respiratory: Clear to auscultation bilaterally, Normal air movement Cardiovascular: No edema, Regular rate/rhythm, Normal S1 S2, No gallops, No rubs, No murmurs Gastrointestinal: Normal bowel sounds, Soft and benign, Non-distended, No tenderness, No rebound, No guarding Musculoskeletal: No clubbing Integumentary: No rashes Neurological: Normal speech, Cranial nerves 3-12 intact, Normal affect - Studies Laboratory Data (last 24 hrs) 05/24/22 15:17: Magnesium 2.1, Total Bilirubin 0.5, AST 16, ALT 21, Alkaline Phosphatase 81, Lipase 125 05/24/22 15:17: Sodium 141, Potassium 4.0, BUN 8, Creatinine 0.69, Glucose 93 Assessment And Plan - Plan # Chest Pain - evaluating for ACS # History of Abdominal Aortic Aneurysm s/p Endograft Stenting # Hypertension # Dyslipidemia Based on history and physical examination, cannot exclude ischemia as a possible etiology of her chest pain. - Evaluation thus far: - EKG: reportedly without STEMI criteria - Serial troponin: 6.1 -> 13.6 -> 4.2 - Ordered transthoracic echocardiogram - Ordered chest x-ray = "no acute intrathoracic process suspected." - Ordered d-dimer - CT dissection protocol = "Advanced COPD. No acute aortic finding is evident. Abdominal aortic aneurysm is present with endograft in place. No acute finding related to this is suspected." - Management plan: - Consult Cardiology - recommendations appreciated - Continue aspirin, atrovastatin, metoprolol - If cardiac ischemia confirmed, plan to start KYLAH-inhibitor/ARB as tolerated # Chronic Obstructive Pulmonary Disorder # History of Tobacco Use Disorder - No evidence of exacerbation - Continue home medications # Gastroesophageal Reflux Disease - Continue pantoprazole Will monitor for today given leukocytosis (steroid induced?). If stable, possible discharge tomorrow Chris Bautista M.D.
--- NOTE | 2022-05-25 16:22 | RAD REPORT ---
EXAM DESCRIPTION: RAD - Chest Single View - 05/25/2022 4:12 pm CLINICAL HISTORY: shortness of breath COMPARISON: Chest Single View dated 05/24/2022; Chest Single View dated 04/02/2020; Chest Single View dated 11/30/2019; Chest Pa And Lat (2 Views) dated 08/31/2019 FINDINGS: Lines: None. Lungs: No evidence of edema or pneumonia. Chain sutures in the right lung. Emphysema. Pleural: No significant pleural effusions or pneumothorax. Cardiac: The heart size is within normal limits. Mediastinum: Within normal limits. Bones: No acute fractures. Spinal stimulator. ACDF in the cervical spine. Other: None IMPRESSION: No acute cardiopulmonary disease. No significant change from prior.
--- NOTE | 2022-05-25 17:10 | EKG ---
Test Date: 2022-05-24 Test Time: 15:10:42 Distresser: JUSTIN MEASUREMENT RESULTS: Intervals: Rate: 57 AK: 144 QRSD: 72 QT: 444 QTc: 432 Reading: P: 91 AK: 144 QRS: 78 T: 76 INTERPRETIVE STATEMENTS: Sinus bradycardia Otherwise normal ECG Compared to ECG 04/02/2020 14:33:48 Sinus rhythm no longer present ST (T wave) deviation no longer present Possible ischemia no longer present Electronically Signed On 05-25-22 17:06:52 CDT by Baldemar Nunez
[2022-05-25] MEDS: ATORVASTATIN 40 MG TAB PO SCH (21:15)
[2022-05-26] MEDS: METOPROLOL TAR 25 MG TAB PO SCH (05:40)
[2022-05-26] MEDS: PANTOPRAZOLE 40MG TABLET PO SCH (05:40)
[2022-05-26 06:26] LABS: Absolute Lymphocytes (CBC) 2.1 K/uL (0.7-4.9); Hematocrit 40.9 % (36.0-45.0); Lymphocytes % 31.4 % (15.3-44.8); MCV 93.6 fL (80-100); MPV 7.3 fL (7.6-11.3); RBC Red Blood Cell Count 4.37 M/uL (3.86-4.86)
[2022-05-26 06:57] LABS: Bilirubin Total 0.6 mg/dL (0.2-1.0); Potassium 4.1 mmol/L (3.5-5.1); Protein, Total 6.5 g/dL (6.4-8.2)
--- NOTE | 2022-05-26 07:56 | P.DS ---
Admission Date: 05/24/22 Discharge Date: 05/26/22 Disposition: ROUTINE DISCHARGE Discharge Condition: GOOD Reason for Admission: Chest pain Consultations: 1. Cardiology Hospital Course: DIAGNOSES: # Atypical Chest Pain # History of Abdominal Aortic Aneurysm s/p Endograft Stenting # Hypertension # Dyslipidemia # Chronic Obstructive Pulmonary Disorder # History of Tobacco Use Disorder # Gastroesophageal Reflux Disease HOSPITAL COURSE: Ms. Amanda Malik is a pleasant 66 year old female with a past medical history significant for abdominal aortic aneurysm s/p endograft stenting, chronic obstructive pulmonary disease, tobacco use disorder, hypertension, and dyslipidemia who was admitted to [facility] on 05/24/2022 for chest pain. She was admitted to the Medicine service. Her troponin trend was 6.1 -> 13.6 -> 4.2, and EKG was reportedly without STEMI criteria. A transthoracic echocardiogram was obtained and formal report is pending, but per discussion with Dr. Nunez (who reviewed the images), the transthoracic echocardiogram was within normal limits. A chest x-ray revealed, " no acute intrathoracic process suspected." CT aortic dissection protocol revealed, "advanced COPD. No acute aortic findings evident. Abdominal aortic aneurysm is present with endograft in place. No acute finding related to this is suspected." Cardiology was consulted and she was cleared for discharge from a cardiac standpoint with outpatient follow-up. On 05/26/2022, she was seen on morning rounds and deemed medically stable for discharge. She was discharged with instructions to schedule follow-up appointments with her PCP (Dr. Watkins) in 3-5 days and Cardiology (Dr. Nunez) in 5-7 days. She was given the opportunity to ask questions and reported no further questions. Furthermore, all questions were answered to the best of my ability. Today, I personally spent 20 minutes on her case, of which greater than 50% of the time was spent in patient education, counseling, and coordination of care as described above. - Physical Exam General: Alert, In no apparent distress, Oriented x3 HEENT: Atraumatic, PERRLA, Mucous membr. moist/pink, EOMI, Sclerae nonicteric Neck: Supple, JVD not distended Respiratory: Clear to auscultation bilaterally, Normal air movement Cardiovascular: No edema, Regular rate/rhythm, Normal S1 S2, No gallops, No rubs, No murmurs Gastrointestinal: Normal bowel sounds, Soft and benign, Non-distended, No tenderness, No rebound, No guarding Musculoskeletal: No clubbing Integumentary: No rashes Neurological: Normal speech, Cranial nerves 3-12 intact, Normal affect Vital Signs/Physical Exam: Temp Pulse Resp BP Pulse Ox 97.6 F 66 17 149/75 H 95 05/26/22 04:00 05/26/22 05:40 05/26/22 04:00 05/26/22 05:40 05/26/22 04:00 Laboratory Data at Discharge: WBC 6.80 K/uL (4.3-10.9) 05/26/22 05:32 Hgb 13.9 g/dL (12.0-15.0) 05/26/22 05:32 Hct 40.9 % (36.0-45.0) 05/26/22 05:32 Plt Count 268 K/uL (152-406) D 05/26/22 05:32 PT 11.6 SECONDS (9.5-12.5) 05/24/22 15:17 INR 1.05 05/24/22 15:17 Sodium 141 mmol/L (136-145) 05/26/22 05:32 Potassium 4.1 mmol/L (3.5-5.1) 05/26/22 05:32 BUN 8 mg/dL (7-18) 05/26/22 05:32 Creatinine 0.59 mg/dL (0.55-1.3) 05/26/22 05:32 Glucose 92 mg/dL (74-106) 05/26/22 05:32 Magnesium 2.1 mg/dL (1.8-2.4) 05/24/22 15:17 Total Bilirubin 0.6 mg/dL (0.2-1.0) 05/26/22 05:32 AST 14 U/L (15-37) L 05/26/22 05:32 ALT 15 U/L (12-78) 05/26/22 05:32 Alkaline Phosphatase 73 U/L (45-117) D 05/26/22 05:32 Lipase 125 U/L (73-393) 05/24/22 15:17 Home Medications: RX: Atorvastatin Calcium [Lipitor*] 10 mg PO BEDTIME 05/21/16 RX: Metoprolol Succinate [Toprol Xl*] 50 mg PO BEDTIME 05/21/16 RX: Escitalopram Oxalate 20 mg PO BEDTIME 02/28/19 RX: Fluticasone/Vilanterol [Breo Ellipta 200-25 Mcg INH] 1 each IH BEDTIME 02/28/19 RX: Omeprazole 20 mg PO BEDTIME 02/28/19 RX: Ipratropium/Albuterol Sulfate [Iprat-Albut 0.5-3(2.5) mg/3 ml] 3 ml IH QIDP PRN 11/30/19 RX: Losartan/Hydrochlorothiazide [Losartan-Hctz 50-12.5 mg Tab] 1 tab PO BEDTIME 05/24/22 Physician Discharge Instructions: 1. Please schedule a follow-up appointment with your PCP (Dr. Watkins) in 3-5 days 2. Please schedule a follow-up appointment with Cardiology (Dr. Nunez) in 3-5 days Diet: AHA Activity: Ad nikky Followup: Baldemar Nunez MD [ACTIVE - CAN ADMIT] - (animal keeper- call to schedule an appointment) Herman Watkins MD [Primary Care Provider] - (call to schedule an appointment) Time spent managing pt's care (in minutes): 20
[2022-05-26 08:32] VITALS: BP 135/66; TEMP 98.6
[2022-05-26] MEDS: ENOXAPARIN 40 MG/0.4 ML SQ SCH (09:00)
[2022-05-26] MEDS: ASPIRIN EC 81 MG TAB PO SCH (09:18)
[2022-05-26 09:35] VITALS: O2SAT 92
--- NOTE | 2022-05-29 18:00 | CON ---
Date of Consultation: 05/25/2022 Reason For Consultation: Atypical chest pain. History Of Present Illness: Ms. Malik is a 66-year-old woman. She has a history of AAA, hyperte nsion, dyslipidemia, gastroesophageal reflux disease, and COPD. She has had surgery on her abdominal aortic aneurysm. She came in with anterior chest wall pain that is sharp, stabbing, radiating to th e low back. No nausea, vomiting, diaphoresis, PND, orthopnea, pedal edema, palpitation, or syncope. She denied any fever or chills. Allergies: NONE. Review of Systems: Negative. Social History: Negative. Family History: Negative. Medications: At home include inhalers, metoprolol, and omeprazole. Physical Examination: Vital Signs: Stable, afebrile. HEENT: Negative. Neck: Supple with no bruit. Chest: Clear to auscultation and percussion. Cardiac: Revealed a regular rhythm and rate. No murmurs, gallops, or rubs. Abdomen: Benign. Extremities: Revealed no clubbing, cyanosis, or edema. Diagnostic Data: Showed a white count of 16,000. Her D-dimer was 1604. Potassium was 3.3. Troponi n was negative. BNP was negative. Chest x-ray was negative. EKG showed sinus bradycardia. CT diss ection showed COPD. Last echocardiogram on Ms. Malik in 2019 was normal. She has had a carotid ultrasound that showed some mild plaquing in 2019. Assessment And Plan: I believe her chest pain is atypical. I think it is most likely gastroesophage al reflux disease. I am comfortable with her going home without any further cardiac workup at this p oint considering her EKG, troponin and BNP are normal as well as chest x-ray. Consider proton pump i nhibitor and I will make arrangements for her to have an outpatient office visit and possibly a Bev can. NB/MODL Voice ID: [id number] Report ID: [id number]
== END 2022-05-26 10:21 | disposition home or self-care (01) | DRG 313 ==
LOC: ER 14:48 → ERHOLD 19:11 → 4TH 20:20
PROVIDERS: ADMIT Internal Medicine; ATTEND Internal Medicine
DX: R07.89 Other chest pain (principal); I10 Essential (primary) hypertension; E78.5 Hyperlipidemia, unspecified; J44.9 Chronic obstructive pulmonary disease, unspecified; K21.9 Gastro-esophageal reflux disease without esophagitis; Z95.828 Presence of other vascular implants and grafts; Z87.891 Personal history of nicotine dependence; Z20.822 Contact with and (suspected) exposure to COVID-19
CPT/HCPCS: 36415; 71045; 71275; 74175; 80048; 80053; 80076; 83690; 83735; 83880; 84132; 84484; 85025; 85379; 85610; 87811; 93005; 99285; J1650; Q9967

== ENCOUNTER 2023-02-25 16:33 | Inpatient (IN) | payer OTHER, BC ==
--- OUTSIDE RECORDS SUMMARY | 2023-02-25 16:50 | XMS REPORT | Continuity of Care Document ---
:1955 Author Organization [facility] t Address [address] [place] [address] [place] [id number] Care Team Providers Name Role Phone Herman Watkins Primary Care Physician MAIRA WILLIAM Attending Clinician Unavailable Maira Nazario Attending Clinician YULIANA JACOBO Attending Clinician Unavailable Yuliana Lopez Attending Clinician Herman Watkins MD Attending Clinician HERMAN WATKINS Attending Clinician Unavailable REGLA REYNAGA Attending Clinician Unavailable Regla Patel Attending Clinician Ben Brush DO Attending Clinician ANGIE POOLE Attending Clinician Unavailable Angie Poole MD Attending Clinician Doctor Unassigned, [place] Attending Clinician Unavailable Natali Baldwin MD Attending Clinician Margarette Bradford MD Attending Clinician V[facility]-Lab Attending Clinician Unavailable ESAU SHIRLEY Attending Clinician Unavailable Nurse, [facility] Pob Immunization Attending Clinician Unavailable Esau Shirley DO Attending Clinician BEN BRUSH Attending Clinician Unavailable BEN BRUSH Attending Clinician Unavailable SKIP MERRILL Attending Clinician Unavailable Elias Bai MD Attending Clinician ELIAS BAI Attending Clinician Unavailable Gramm CRANE HELPER, Brandy A Attending Clinician GRAMM BRANDY A Attending Clinician Unavailable Skip Merrill MD Attending Clinician Yemi Augustin S Attending Clinician Jack [facility] Attending Clinician Brent OTYi Attending Clinician Unavailable Lab, [facility] Fam Pob I Attending Clinician Unavailable EUGENIA JIMENEZ Attending Clinician Unavailable Yuki Johnson MD Attending Clinician Aubrey Hutson Attending Clinician AUBREY WATERMAN Attending Clinician Unavailable YUKI JOHNSON Attending Clinician Unavailable KARL RUSSELL Attending Clinician Unavailable ANGIE POOLE Admitting Clinician Unavailable Angie Poole MD Admitting Clinician HERMAN WATKINS Admitting Clinician Unavailable KARL RUSSELL Admitting Clinician Unavailable Payers Payer Name Policy Type Policy Number Effective Date Expiration Date S our MEDICARE PART A \\T\\ [id number] 2020 B 00:00:00 [employer] TRADITIONAL [id number] 2020 00:00:00 Problems Condition Condition Condition Status Onset Resolution Last Treating Co mments Source Name Details Category Date Date Treatment Clinician Date Macromasti Macromasti Disease Active 2021-09 Overview : Univers a a -08 Formattin ity of 00:00: g of this note Medical might be Branch different from the original. Added automatic ally from request for surgery [id number] Reduced Reduced Disease Active Univers mobility mobility 5-12 ity of 00:00: Medical Branch Dyspnea on Dyspnea on Disease Active U nivers minimal minimal 5-12 ity of exertion exertion 00:00: Medical Branch AAA AAA Disease Recurre [facility] (abdominal (abdominal nce 1-04 [place] aortic aortic 00:00: Medical aneurysm) aneurysm) 00 Cent er Gastroesop Gastroesop Disease Active U nivers hageal hageal 3-26 ity of reflux reflux 00:00: [place] disease, disease, 00 Medica l esophagiti esophagiti [...] y of d type d type 00:00: [place] [facility] Essential Essential Disease Active Uni vers hypertensi hypertensi 1-27 it y of on on 00:00: [place] [address] Medical Branch Chronic Chronic Disease Active 2015-09 Univers obstructiv obstructiv 0-05 it y of e e 00:00: [place] pulmonary pulmonary 00 Medi zan disease disease Branch with acute with acute exacerbati exacerbati on on Infection Infection Disease Active Uni vers of skin of skin 05-17 ity of due to due to 00:00: [place] methicilli methicilli 00 Me dical n n Branch resistant resistant Staphyloco Staphyloco ccus ccus aureus aureus (MRSA) (MRSA) Infection Infection Disease Active Uni vers of skin of skin 05-17 ity of due to due to 00:00: [place] methicilli methicilli 00 Me dical n n Branch resistant resistant Staphyloco Staphyloco ccus ccus aureus aureus (MRSA) (MRSA) Cyst of Cyst of Disease Active Univers left left 3-21 ity of kidney kidney 00:00: [place] [address] Medical Branch Hyperlipid Hyperlipid Disease Active 2014-09 U nivers emia emia 2-11 ity of 00:00: [place] [address] Medical Branch 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 U nivers s of s of 2-11 ity of lumbosacra lumbosacra 00:[place] l region 00 Medica l Branch Osteopenia Osteopenia Disease Active 2014-09 U nivers 2 ity of 00:00: [place] [address] Medical Branch Depression Depression Disease Active 2014-09 U nivers 2 ity of 00:00: [address] Allergies, Adverse Reactions, Alerts Allergy Allergy Status Severity Reaction(s) Onset Inactive Treating Comm ents Source Name Type Date Date Clinician No Known DA Active U [facility] Allergie 4-04 [place] [facility] 00:00: [address] No Known DA Active U [facility] Allergie 3-20 [place] 00:00: [address] No Known DA Active U [facility] Allergie 4-07 [place] 00:00: [address] NO KNOWN Drug Active Univers ALLERGIE Class ity of S [facility] Social History Social Habit Start Date Stop Date Quantity Comments Source History SDOH University o f Alcohol Frequency [place] M edical Branch History SDOH University o f Alcohol Std [place] Medical Drinks Branch History SDOH University o f Alcohol Binge [place] Medic al Branch Alcohol intake 2023-02-23 2023-02-23 Current drinker Unive rsity of 00:00:00 00:00:00 of alcohol [facility] (finding) Branch Exposure to 2022-11-29 2022-12-09 Not sure University of SARS-CoV-2 00:00:00 13:34:00 [facility] (event) Branch Tobacco use and 2022-08-24 2022-08-24 Smokeless tobacco Un iversity of exposure 00:00:00 00:00:00 non-user [facility] Alcohol Comment 2015-09-29 2015-09-29 occasional Universit y of 00:00:00 00:00:00 [facility] History of 2008-09-29 Cigarette Smoker Universi ty of tobacco use 00:00:00 [facility] Sex Ass[birth year] [facility] 00:00:00 00:00:00 Medical Center Smoking Status Start Date Stop Date Source Ex-smoker 2022-08-24 00:00:00 2022-08-24 00:00:00 [facility] Medical Branch Medications Ordered Filled Start Stop Current Ordering Indication Dosage Frequency Signature Comments Components Source Medication Medication Date Date Medication? Clinician (SIG) Name Name iopamidol 2022- No [id number] 100mL 100 mL, Univers (ISOVUE 02-24 Intravenou ity o f 370-500 mL) 05:45: 05:45 s, ONCE, 1 [place] injection 00 :00 dose, On Medica l 100 mL Fri Branch 02/24/23 at 0045, Routine acetaminoph No 1000mg 1,000 mg, Univers en 02-24 Oral, ity of (TYLENOL) 04:15: 03:05 ONCE, 1 [place] tablet 00 :00 dose, On Medical 1,000 mg Ita Branch 02/23/23 at 2315, Routine NaCl 0.9% 2022- No 1000mL at 999 Uni vers (NS) bolus 02-24 mL/hr, ity of infusion 03:30: 04:00 1,000 mL, [place] 1,000 mL 00 :00 IV Medical Infusion, Branch ONCE, 1 dose, On Ita 02/23/23 at 2230, STAT proMETHazin 2022- No 12.5mg 12.5 mg, Univers e 02-24 IV ity of (PHENERGAN) 02:30: 02:56 [place], [place] 12.5 mg in 00 :00 ONCE, 1 Medica l NaCl 0.9% dose, On Branch (NS) 50 mL Ita IV 02/23/23 at piggyback 2130, GRACIELA proMETHazin 2022-0 Yes [id number] 25mg Take 1 Univers e 25 mg -16 tablet by ity of tablet 00:00: mouth [place] 00 every 6 Medical (six) Branch hours as needed for Nausea and Vomiting (N/V). NaCl 0.9% 2022- No 1000mL at 999 Uni vers (NS) bolus 02-2316 mL/hr, ity of infusion 23:30: 00:48 1,000 mL, [place] 1,000 mL 00 :00 IV Medical Infusion, Branch ONCE, 1 dose, On Ita 02/23/23 at 1830, STAT ondansetron 2022- No 4mg 4 mg, Slow Univers (ZOFRAN 02-23 IV Push, ity of (PF)) 22:30: 22:37 ONCE, 1 [place] injection 4 00 :00 dose, On Medi zan mg Ita Branch 02/23/23 at 1730, GRACIELA triamcinolo 2022- No [id number] 40mg Univers ne 02-13 ity of acetonide 16:15: 15:21 [place] (KENALOG) 00 :00 Medical injection Branch 40 mg triamcinolo 2022- No [id number] 40mg 40 mg, Univers ne 02-13 Intramuscu ity of acetonide 16:15: 15:21 lar, ONCE, [place] (KENALOG) 00 :00 1 dose, On Medi zan injection 02/13/23 Bran ch 40 mg at 1115, Routine triamcinolo 2022- No [id number] 40mg Univers ne 02-13 ity of acetonide 16:15: 15:21 [place] (KENALOG) 00 :00 Medical injection Branch 40 mg triamcinolo 2022- No [id number] 40mg 40 mg, Univers ne 02-13 Intramuscu ity of acetonide 16:15: 15:21 lar, ONCE, [place] (KENALOG) 00 :00 1 dose, On Medi zan injection 02/13/23 Bran ch 40 mg at 1115, Routine methylPREDN 2022- No [id number] 80mg Univers ISolone 02-13 ity of acetate 16:00: 15:20 [place] (DEPO-MEDRO 00 :00 Medical L) Branch injection 80 mg methylPREDN 2022- No [id number] 80mg 80 mg, Univers ISolone 02-13 Intramuscu ity o f acetate 16:00: 15:20 lar, ONCE, [place] (DEPO-MEDRO 00 :00 1 dose, On Me dical L) 02/13/23 Branch injection at 1100, 80 mg Routine methylPREDN 2022- No [id number] 80mg Univers ISolone 02-13 06-05 ity of acetate 16:00: 15:20 [place] (DEPO-MEDRO 00 :00 Medical L) Branch injection 80 mg methylPREDN 2022- No [id number] 80mg 80 mg, Univers ISolone 02-13-05 Intramuscu ity o f acetate 16:00: 15:20 lar, ONCE, [place] (DEPO-MEDRO 00 :00 1 dose, On Me dical L) 02/13/23 Branch injection at 1100, 80 mg Routine tretinoin Yes [id number] Apply to Univers 0.025 % 6-05 area(s) at ity of cream 00:00: bedtime. [address] semaglutide Yes [id number] .25mg inject Univers (OZEMPIC) 6-05 0.25 mg ity of 0.25 mg or 00:00: [place] 0.5 mg (2 00 skin Medical mg/3 mL) weekly. Branch PnIj tretinoin Yes [id number] Apply to Univers 0.025 % 6-05 area(s) at ity of cream 00:00: bedtime. [address] semaglutide Yes [id number] .25mg inject Univers (OZEMPIC) 6-05 0.25 mg ity of 0.25 mg or 00:00: under the [place] 0.5 mg (2 00 skin Medical mg/3 mL) weekly. Branch PnIj tretinoin Yes [id number] Apply to Univers 0.025 % 6-05 area(s) at ity of cream 00:00: bedtime. [address] semaglutide Yes [id number] .25mg inject Univers (OZEMPIC) 6-05 0.25 mg ity of 0.25 mg or 00:00: under the [place] 0.5 mg (2 00 skin Medical mg/3 mL) weekly. Branch PnIj tretinoin Yes [id number] Apply to Univers 0.025 % 6-05 area(s) at ity of cream 00:00: bedtime. [address] semaglutide 2023-0 Yes [id number] .25mg inject Univers (OZEMPIC) 6-05 0.25 mg ity of 0.25 mg or 00:00: under the [place] 0.5 mg (2 00 skin Medical mg/3 mL) weekly. Branch PnIj tretinoin 2022-0 Yes [id number] Apply to Univers 0.025 % 6-05 area(s) at ity of cream 00:00: bedtime. [address] semaglutide 2022-0 Yes [id number] .25mg inject Univers (OZEMPIC) 6-05 0.25 mg ity of 0.25 mg or 00:00: under the [place] 0.5 mg (2 00 skin Medical mg/3 mL) weekly. Branch PnIj tretinoin 2022-0 Yes [id number] Apply to Univers 0.025 % 6-05 area(s) at ity of cream 00:00: bedtime. [address] semaglutide 0 Yes [id number] .25mg inject Univers (OZEMPIC) 6-05 0.25 mg ity of 0.25 mg or 00:00: under the [place] 0.5 mg (2 00 skin Medical mg/3 mL) weekly. Branch PnIj tretinoin 2022-0 Yes [id number] Apply to Univers 0.025 % 6-05 area(s) at ity of cream 00:00: bedtime. [address] semaglutide 0 Yes [id number] .25mg inject Univers (OZEMPIC) 6-05 0.25 mg ity of 0.25 mg or 00:00: under the [place] 0.5 mg (2 00 skin Medical mg/3 mL) weekly. Branch PnIj tretinoin 2022-0 Yes [id number] Apply to Univers 0.025 % 6-05 area(s) at ity of cream 00:00: bedtime. [address] semaglutide 0 Yes [id number] .25mg inject Univers (OZEMPIC) 6-05 0.25 mg ity of 0.25 mg or 00:00: under the [place] 0.5 mg (2 00 skin Medical mg/3 mL) weekly. Branch PnIj OMEPRAZOLE 2022-0 Yes [id number] TAKE 1 Univers 20 mg 5-10 CAPSULE BY ity of capsule 00:00: MOUTH [place] 00 EVERY DAY Medical Branch OMEPRAZOLE 2023-0 Yes [id number] TAKE 1 Univers 20 mg 5-10 CAPSULE BY ity of capsule 00:00: MOUTH [place] 00 EVERY DAY Medical Branch OMEPRAZOLE 2023-0 Yes [id number] TAKE 1 Univers 20 mg 5-10 CAPSULE BY ity of capsule 00:00: MOUTH [place] 00 EVERY DAY Medical Branch OMEPRAZOLE 2023-0 Yes [id number] TAKE 1 Univers 20 mg 5-10 CAPSULE BY ity of capsule 00:00: MOUTH [place] 00 EVERY DAY Medical Branch OMEPRAZOLE 2023-0 Yes [id number] TAKE 1 Univers 20 mg 5-10 CAPSULE BY ity of capsule 00:00: MOUTH [place] 00 EVERY DAY Medical Branch OMEPRAZOLE 2023-0 Yes [id number] TAKE 1 Univers 20 mg 5-10 CAPSULE BY ity of capsule 00:00: MOUTH [place] 00 EVERY DAY Medical Branch OMEPRAZOLE 2023-0 Yes [id number] TAKE 1 Univers 20 mg 5-10 CAPSULE BY ity of capsule 00:00: MOUTH [place] 00 EVERY DAY Medical Branch OMEPRAZOLE 2023-0 Yes [id number] TAKE 1 Univers 20 mg 5-10 CAPSULE BY ity of capsule 00:00: MOUTH [place] 00 EVERY DAY Medical Branch OMEPRAZOLE 2023-0 Yes [id number] TAKE 1 Univers 20 mg 5-10 CAPSULE BY ity of capsule 00:00: MOUTH [place] 00 EVERY DAY Medical Branch triamcinolo 0 2022- No [id number] 40mg Univers ne 11-24 ity of acetonide 18:15: 17:42 [place] (KENALOG) 00 :00 Medical injection Branch 40 mg triamcinolo 2022- No [id number] 40mg 40 mg, Univers ne 11-24 Intramuscu ity of acetonide 18:15: 17:42 lar, ONCE, [place] (KENALOG) 00 :00 1 dose, On Medi zan injection Ita Branch 40 mg 11/24/22 at 1315, Routine triamcinolo 2022- No [id number] 40mg Univers ne 11-24 ity of acetonide 18:15: 17:42 [place] (KENALOG) 00 :00 Medical injection Branch 40 mg triamcinolo 2022- No [id number] 40mg 40 mg, Univers ne 11-24 Intramuscu ity of acetonide 18:15: 17:42 lar, ONCE, [place] (KENALOG) 00 :00 1 dose, On Medi zan injection Ita Branch 40 mg 11/24/22 at 1315, Routine methylPREDN 0 3- No [id number] 80mg Univers ISolone 11-24 ity of acetate 18:00: 17:41 [place] (DEPO-MEDRO 00 :00 Medical L) Branch injection 80 mg methylPREDN 0 2022- No [id number] 80mg 80 mg, Univers ISolone 11-24 Intramuscu ity o f acetate 18:00: 17:41 lar, ONCE, [place] (DEPO-MEDRO 00 :00 1 dose, On Me dical L) Ita Branch injection 11/24/22 at 80 mg 1300, Routine methylPREDN 0 2022- No [id number] 80mg Univers ISolone 11-24 ity of acetate 18:00: 17:41 [place] (DEPO-MEDRO 00 :00 Medical L) Branch injection 80 mg methylPREDN 0 2022- No [id number] 80mg 80 mg, Univers ISolone 11-24 Intramuscu ity o f acetate 18:00: 17:41 lar, ONCE, [place] (DEPO-MEDRO 00 :00 1 dose, On Me dical L) Ita Branch injection 11/24/22 at 80 mg 1300, Routine diclofenac 2022-0 Yes [id number] 50mg Take 1 Univers 50 mg EC 3-16 tablet by ity of tablet 00:00: mouth in [place] [address] the Medical morning Branch and 1 tablet in the evening. Take with meals. fluocinonid 2022-0 Yes [id number] Apply to Univers e 0.05 % 3-16 area(s) 2 ity of cream 00:00: (two) [place] 00 times Medical daily. Branch diclofenac 2022-0 Yes [id number] 50mg Take 1 Univers 50 mg EC 3-16 tablet by ity of tablet 00:00: mouth in [place] [address] the Medical morning Branch and 1 tablet in the evening. Take with meals. fluocinonid 2022-0 Yes [id number] Apply to Univers e 0.05 % 3-16 area(s) 2 ity of cream 00:00: (two) [place] 00 times Medical daily. Branch diclofenac 3-0 Yes [id number] 50mg Take 1 Univers 50 mg EC 3-16 tablet by ity of tablet 00:00: mouth in [place] 00 the Medical morning Branch and 1 tablet in the evening. Take with meals. fluocinonid 2023-0 Yes [id number] Apply to Univers e 0.05 % 3-16 area(s) 2 ity of cream 00:00: (two) [place] 00 times Medical daily. Branch diclofenac 2023-0 Yes [id number] 50mg Take 1 Univers 50 mg EC 3-16 tablet by ity of tablet 00:00: mouth in [place] 00 the Medical morning Branch and 1 tablet in the evening. Take with meals. fluocinonid 3-0 Yes [id number] Apply to Univers e 0.05 % 3-16 area(s) 2 ity of cream 00:00: (two) [place] 00 times Medical daily. Branch diclofenac 3-0 Yes [id number] 50mg Take 1 Univers 50 mg EC 3-16 tablet by ity of tablet 00:00: mouth in [place] 00 the Medical morning Branch and 1 tablet in the evening. Take with meals. fluocinonid 3-0 Yes [id number] Apply to Univers e 0.05 % 3-16 area(s) 2 ity of cream 00:00: (two) [place] 00 times Medical daily. Branch diclofenac 2023-0 Yes [id number] 50mg Take 1 Univers 50 mg EC 3-16 tablet by ity of tablet 00:00: mouth in [place] 00 the Medical morning Branch and 1 tablet in the evening. Take with meals. fluocinonid 2023-0 Yes [id number] Apply to Univers e 0.05 % 3-16 area(s) 2 ity of cream 00:00: (two) [place] 00 times Medical daily. Branch diclofenac 2023-0 Yes [id number] 50mg Take 1 Univers 50 mg EC 3-16 tablet by ity of tablet 00:00: mouth in [place] [address] the Medical morning Branch and 1 tablet in the evening. Take with meals. fluocinonid 2023-0 Yes [id number] Apply to Univers e 0.05 % 3-16 area(s) 2 ity of cream 00:00: (two) [place] 00 times Medical daily. Branch diclofenac 2023-0 Yes [id number] 50mg Take 1 Univers 50 mg EC 3-16 tablet by ity of tablet 00:00: mouth in [place] 00 the Medical morning Branch and 1 tablet in the evening. Take with meals. fluocinonid 2023-0 Yes [id number] Apply to Univers e 0.05 % 3-16 area(s) 2 ity of cream 00:00: (two) [place] 00 times Medical daily. Branch diclofenac 3-0 Yes [id number] 50mg Take 1 Univers 50 mg EC 3-16 tablet by ity of tablet 00:00: mouth in [place] 00 the Medical morning Branch and 1 tablet in the evening. Take with meals. fluocinonid 3-0 Yes [id number] Apply to Univers e 0.05 % 3-16 area(s) 2 ity of cream 00:00: (two) [place] 00 times Medical daily. Branch diclofenac 3-0 Yes [id number] 50mg Take 1 Univers 50 mg EC 3-16 tablet by ity of tablet 00:00: mouth in [place] [address] the Medical morning Branch and 1 tablet in the evening. Take with meals. fluocinonid 3-0 Yes [id number] Apply to Univers e 0.05 % 3-16 area(s) 2 ity of cream 00:00: (two) [place] 00 times Medical daily. Branch diclofenac 3-0 Yes [id number] 50mg Take 1 Univers 50 mg EC 3-16 tablet by ity of tablet 00:00: mouth in [place] [address] the Medical morning Branch and 1 tablet in the evening. Take with meals. fluocinonid 3-0 Yes [id number] Apply to Univers e 0.05 % 3-16 area(s) 2 ity of cream 00:00: (two) [place] 00 times Medical daily. Branch diclofenac 2023-0 Yes [id number] 50mg Take 1 Univers 50 mg EC 3-16 tablet by ity of tablet 00:00: mouth in [place] [address] the Medical morning Branch and 1 tablet in the evening. Take with meals. fluocinonid 2023-0 Yes [id number] Apply to Univers e 0.05 % 3-16 area(s) 2 ity of cream 00:00: (two) [place] 00 times Medical daily. Branch diclofenac 2023-0 Yes [id number] 50mg Take 1 Univers 50 mg EC 3-16 tablet by ity of tablet 00:00: mouth in [place] 00 the Medical morning Branch and 1 tablet in the evening. Take with meals. fluocinonid Yes [id number] Apply to Univers e 0.05 % 3-16 area(s) 2 ity of cream 00:00: (two) [place] 00 times Medical daily. Branch BREO Yes [id number] 1{puff} INHALE 1 U nivers ELLIPTA 2-15 PUFF DAILY ity of 100-25 00:00: [place] mcg/dose 00 Medical DsDv Branch BREO Yes [id number] 1{puff} INHALE 1 U nivers ELLIPTA 2-15 PUFF DAILY ity of 100-25 00:00: [place] mcg/dose 00 Medical DsDv Branch BREO Yes [id number] 1{puff} INHALE 1 U nivers ELLIPTA 2-15 PUFF DAILY ity of 100-25 00:00: [place] mcg/dose 00 Medical DsDv Branch BREO Yes [id number] 1{puff} INHALE 1 U nivers ELLIPTA 2-15 PUFF DAILY ity of 100-25 00:00: [place] mcg/dose 00 Medical DsDv Branch BREO Yes [id number] 1{puff} INHALE 1 U nivers ELLIPTA 2-15 PUFF DAILY ity of 100-25 00:00: [place] mcg/dose 00 Medical DsDv Branch BREO Yes [id number] 1{puff} INHALE 1 U nivers ELLIPTA 2-15 PUFF DAILY ity of 100-25 00:00: [place] mcg/dose 00 Medical DsDv Branch BREO Yes [id number] 1{puff} INHALE 1 U nivers ELLIPTA 2-15 PUFF DAILY ity of 100-25 00:00: [place] mcg/dose 00 Medical DsDv Branch BREO Yes [id number] 1{puff} INHALE 1 U nivers ELLIPTA 2-15 PUFF DAILY ity of 100-25 00:00: [place] mcg/dose 00 Medical DsDv Branch BREO Yes [id number] 1{puff} INHALE 1 U nivers ELLIPTA 2-15 PUFF DAILY ity of 100-25 00:00: [place] mcg/dose 00 Medical DsDv Branch [facility] [id number] 1{puff} INHALE 1 U nivers ELLIPTA 2-15 PUFF DAILY ity of 100-25 00:00: [place] mcg/dose 00 Medical DsDv Branch [facility] 20[facility]0 Yes [id number] 1{puff} INHALE 1 U nivers ELLIPTA 2-15 PUFF DAILY ity of 100-25 00:00: [place] mcg/dose 00 Medical DsDv Branch [facility] 20[facility]0 Yes [id number] 1{puff} INHALE 1 U nivers ELLIPTA 2-15 PUFF DAILY ity of 100-25 00:00: [place] mcg/dose 00 Medical DsDv Branch [facility] 2022-0 Yes [id number] 1{puff} INHALE 1 U nivers ELLIPTA 2-15 PUFF DAILY ity of 100-25 00:00: [place] mcg/dose 00 Medical DsDv Branch [facility] 2022-0 Yes [id number] 1{puff} INHALE 1 U nivers ELLIPTA 2-15 PUFF DAILY ity of 100-25 00:00: [place] mcg/dose 00 [facility] mupirocin 2 2022- No [id number] Apply to Univers % ointment 10-24 area(s) ity o f 00:00: 05:59 every 12 [place] 00 :00 (twelve) Medical hours for Branch 21 days. mupirocin 2 2022-2022- No [id number] Apply to Univers % ointment 2-07 area(s) ity o f 00:00: 05:59 every 12 [place] 00 :00 (twelve) Medical hours for Branch 21 days. albuterol 2022- No 2.5mg 2.5 mg, Uni vers (PROVENTIL) 10-06 Inhalation i ty of 2.5 mg /3 18:00: 18:03 , ONCE, 1 [place] mL (0.083 00 :00 dose, On Medica l %) Ita [place] nebulizer 10/06/22 at solution 1215, 2.5 mg Routine, PACU albuterol 2022- No 2.5mg 2.5 mg, Uni vers (PROVENTIL) 10-06 Inhalation i ty of 2.5 mg /3 18:00: 18:03 , ONCE, 1 [place] mL (0.083 00 :00 dose, On Medica l %) Ita Branch nebulizer 10/06/22 at solution 1215, 2.5 mg Routine, PACU HYDROcodone 2022-0 3- No 1{tbl} 1 tablet, Univers -acetaminop 10-06 Oral, ity of hen (NORCO 17:30: 19:46 ONCE, 1 [place] 5) 5-325 mg 00 :00 dose, On Medi zan tablet u Branch tablet 10/06/22 at 1130, Routine, PACU HYDROcodone 2022- No 1{tbl} 1 tablet, Univers -acetaminop 10-06 Oral, ity of hen (NORCO 17:30: 19:46 ONCE, 1 [place] 5) 5-325 mg 00 :00 dose, On Medi zan tablet Ita Branch tablet 10/06/22 at 1130, Routine, PACU FENTanyl PF 2022- Yes 25ug 25 mcg, Uni vers (SUBLIMAZE 10-06 Slow IV ity of (PF)) 17:19: Push, [place] injection 14 Q5MIN PRN, Medi zan 25 mcg 4 doses, Branch Starting on Ita 10/06/22 at 1119, Until Discontinu ed, Routine, Pain (scale 4-6), PACU ondansetron 0 Yes 4mg 4 mg, Slow Univers (ZOFRAN 10-06 IV Push, ity of (PF)) 17:19: PRN, 1 [place] injection 4 14 dose, Medical mg Starting Branch on Ita 10/06/22 at 1119, Until Discontinu ed, Routine, Nausea and Vomiting (N/V), PACU FENTanyl PF 2022-0 2022- No 25ug 25 mcg, Un ravi (SUBLIMAZE 10-06 Slow IV ity o f (PF)) 17:19: 22:54 Push, [place] injection 14 :04 Q5MIN PRN, Medi zan 25 mcg 4 doses, Branch Starting on Ita 10/06/22 at 1119, Until Ita 10/06/22 at 1654, Routine, Pain (scale 4-6), PACU ondansetron 2022- No 4mg 4 mg, Slow Univers (ZOFRAN 10-06 IV Push, ity of (PF)) 17:19: 22:54 PRN, 1 [place] injection 4 14 :04 dose, Medical mg Starting Branch on Ita 10/06/22 at 1119, Until Ita 10/06/22 at 1654, Routine, Nausea and Vomiting (N/V), PACU bupivacaine 2022- No PRN, Unive rs (preserv 10-06 Starting ity of free) 0.5% 15:23: 17:31 on [place] (SENSORCAIN 00 :17 10/06/22 at [place] dicmd E [facility]) 0.5 0923, Branch % (5 mg/mL) Intra-op 30 mL, bupivacaine liposome (PF) (EXPAREL (PF)) 1.3 % (13.3 mg/mL) 266 mg, NaCl 0.9% (NS) 10 mL ceFAZolin 2022- No 2000mg 2,000 mg, Univers (ANCEF) 10-06 Intravenou ity o f 2,000 mg in 14:30: 14:29 s, Q8H [place] NaCl 0.9% 00 :00 ABX, 3 Medical (NS) 100 mL doses, Branch MINI-BAG First dose on Ita 10/06/22 at 0830, Last dose on Mon10/07/22 at 0030, Administer over 30 Minutes, 100 mL
Reas on for Anti-Infec tive: Surgical Prophylaxi s
Barth rgical Prophylaxi s: Other (see Comments)< br>Duratio n of therapy: within 24 hours of surgery ceFAZolin 2022- No 2000mg 2,000 mg, Univers (ANCEF) 10-06 Intravenou ity o f 2,000 mg in 14:30: 22:54 s, Q8H [place] NaCl 0.9% 00 :04 ABX, 3 Medical (NS) 100 mL doses, Branch MINI-BAG First dose on Ita 10/06/22 at 0830, Last dose on Mon10/07/22 at 0030, Administer over 30 Minutes, 100 mL
Reas on for Anti-Infec tive: Surgical Prophylaxi s
Barth rgical Prophylaxi s: Other (see Comments)< br>Duratio n of therapy: within 24 hours of surgery tranexamic 2022- No PRN, Univer s acid 10-06 Starting ity of (CYKLOKAPRO 14:00: 17:31 on Ita [place] N) 00 :17 10/06/22 at Medical injection 0800, Branch Until Ita 10/06/22 at 1131, Routine, Intra-op ceFAZolin 2022- No PRN, Univers (ANCEF) 3 10-06 Starting ity o f g, 13:15: 17:31 on [facility] gentamicin 00 :17 10/06/22 at [facility] ical 240 mg in 0715, [place] NaCl 0.9% Intra-op (NS) 3,000 mL OR irrigation gentian 2022- No PRN, Univers simin 1 % 10-06 Starting ity of solution 13:15: 17:31 on [facility] 00 :17 10/06/22 at Medical 0715, Branch Until [place] 10/06/22 at 1131, Routine, Intra-op scopolamine 2022- No 1.5mg 1.5 mg, U nivers transdermal 10-06 Topical, ity of (TRANSDERM- 12:15: 11:48 Administer [place] SCOP) patch 00 :00 over 72 Medic al 1.5 mg Hours, Branch ONCE, 1 dose, On [place] 10/06/22 at 0615, Routine, DSU Pre-op scopolamine 2022- No 1.5mg 1.5 mg, U nivers transdermal 10-06 Topical, ity of (TRANSDERM- 12:15: 22:54 Administer [place] SCOP) patch 00 :04 over 72 Medic al 1.5 mg Hours, Branch ONCE, 1 dose, On [place] 10/06/22 at 0615, Routine, DSU Pre-op lactated 2022- No 1000mL at 42 Unive rs ringers IV 10-06 mL/hr, ity of infusion 11:30: 11:48 1,000 mL, [place] 1,000 mL 00 :00 IV Medical Infusion, Branch ONCE, 1 dose, On [place] 10/06/22 at 0530, Routine, DSU Pre-op lactated 2022- No 1000mL at 42 Unive rs ringers IV 10-06 mL/hr, ity of infusion 11:30: 11:48 1,000 mL, [place] 1,000 mL 00 :00 IV Medical Infusion, Branch ONCE, 1 dose, On Mon10/06/22 at 0530, Routine, DSU Pre-op acetaminoph 2022- No 1000mg 1,000 mg, Univers en 10-06 Oral, O.R. ity of (TYLENOL) 11:29: 11:47 [place] 04 :00 ONCE, 1 Medical 1,000 mg dose, Branch Starting on Mon10/06/22 at 0529, Until Discontinu ed, Routine, Pain (scale 1-3), DSU Pre-op acetaminoph 2022- No 1000mg 1,000 mg, Univers en 10-06 Oral, O.R. ity of (TYLENOL) 11:29: 11:47 [place] 04 :00 ONCE, 1 Medical 1,000 mg dose, Branch Starting on Mon10/06/22 at 0529, Until Discontinu ed, Routine, Pain (scale 1-3), DSU Pre-op celecoxib 2022- No 200mg 200 mg, Uni vers (CELEBREX) 10-06 Oral, O.R. it y of capsule 200 11:28: 11:47 HOLDING [place] mg 53 :00 ONCE, 1 Medical dose, Branch Starting on Mon10/06/22 at 0528, Until Discontinu ed, Routine, Pain, DSU Pre-op celecoxib 2022-2022- No 200mg 200 mg, Uni vers (CELEBREX) 10-06 Oral, O.R. it y of capsule 200 11:28: 11:47 [place]ING [place] mg 53 :00 ONCE, 1 Medical dose, Branch Starting on Mon10/06/22 at 0528, Until Discontinu ed, Routine, Pain, DSU Pre-op gabapentin 2022- No 600mg 600 mg, Un ravi (NEURONTIN) 10-06 Oral, O.R. i ty of tablet 600 11:: 11:47 HOLDING [place] mg 48 :00 ONCE, 1 Medical dose, Branch Starting on Mon10/06/22 at 0526, Until Discontinu ed, Routine, Surgery/Pr ocedure, DSU Pre-op gabapentin 2022-2022- No 600mg 600 mg, Un ravi (NEURONTIN) 10-06 Oral, O.R. i ty of tablet 600 11:: 11:47 HOLDING [place] mg 48 :00 ONCE, 1 Medical dose, Branch Starting on Mon10/06/22 at 0526, Until Discontinu ed, Routine, Surgery/Pr ocedure, DSU Pre-op celecoxib 2022-2022- No [id number] 100mg Take 1 Univers (CELEBREX) 10-06 capsule by it y of 100 mg 00:00: 05:59 mouth in [place] capsule 00 :00 the [facility] morning [place] and 1 capsule in the evening. Take with meals. Do all this for 7 days. celecoxib 2022-0 3- No [id number] 100mg Take 1 Univers (CELEBREX) 10-06 capsule by it y of 100 mg 00:00: 05:59 mouth in [place] capsule 00 :00 the [facility] morning [place] and 1 capsule in the evening. Take with meals. Do all this for 7 days. celecoxib 2022-0 3- No [id number] 100mg Take 1 Univers (CELEBREX) 10-06 capsule by it y of 100 mg 00:00: 05:59 mouth in [place] capsule 00 :00 the [facility] morning Branch and 1 capsule in the evening. Take with meals. Do all this for 7 days. celecoxib 2022-0 3- No [id number] 100mg Take 1 Univers (CELEBREX) 10-06 capsule by it y of 100 mg 00:00: 05:59 mouth in [place] capsule 00 :00 the [facility] morning [place] and 1 capsule in the evening. Take with meals. Do all this for 7 days. celecoxib 2022-0 2023- No [id number] 100mg Take 1 Univers (CELEBREX) 10-06 capsule by it y of 100 mg 00:00: 05:59 mouth in [place] capsule 00 :00 the Medical morning Branch and 1 capsule in the evening. Take with meals. Do all this for 7 days. celecoxib 2022-2022- No [id number] 100mg Take 1 Univers (CELEBREX) 10-06 capsule by it y of 100 mg 00:00: 05:59 mouth in [place] capsule 00 :00 the Medical morning Branch and 1 capsule in the evening. Take with meals. Do all this for 7 days. gabapentin 2022-0 2022- No [id number] 600mg Take 2 Univers 300 mg 1-10 -25 capsules ity of capsule 00:00: 05:59 by mouth [place] 00 :00 every 8 Medical ([facility]) Branch hours for 14 days. celecoxib 2022-2022- No [id number] 200mg Take 2 Univers 100 mg 1-10 -25 capsules ity of capsule 00:00: 05:59 by mouth [place] 00 :00 in the Medical morning Branch and 2 capsules in the evening. Take with meals. Do all this for 14 days. acetaminoph 2022-2022- No [id number] 1000mg Take 2 Univers en 500 mg 1-10 -25 tablets by ity of tablet 00:00: 05:59 mouth [place] 00 :00 every 8 [facility] ([facility]) Branch hours for 14 days. OTC gabapentin 2022-0 2022- No [id number] 600mg Take 2 Univers 300 mg 1-10 -25 capsules ity of capsule 00:00: 05:59 by mouth [place] 00 :00 every 8 [facility] ([facility]) Branch hours for 14 days. celecoxib 2022-0 2022- No [id number] 200mg Take 2 Univers 100 mg 1-10 -25 capsules ity of capsule 00:00: 05:59 by mouth [place] 00 :00 in the Medical morning Branch and 2 capsules in the evening. Take with meals. Do all this for 14 days. acetaminoph 202-0 2022- No [id number] 1000mg Take 2 Univers en 500 mg 1-10 01-25 tablets by ity of tablet 00:00: 05:59 mouth [place] 00 :00 every 8 Medical (eight) Branch hours for 14 days. OTC gabapentin 202-0 2022- No [id number] 600mg Take 2 Univers 300 mg 1-10 -25 capsules ity of capsule 00:00: 05:59 by mouth [place] 00 :00 every 8 Medical ([facility]) Branch hours for 14 days. celecoxib 202-0 2022- No [id number] 200mg Take 2 Univers 100 mg 1-10 -25 capsules ity of capsule 00:00: 05:59 by mouth [place] 00 :00 in the Medical morning Branch and 2 capsules in the evening. Take with meals. Do all this for 14 days. acetaminoph 202-0 2022- No [id number] 1000mg Take 2 Univers en 500 mg 1-10 -25 tablets by ity of tablet 00:00: 05:59 mouth [place] 00 :00 every 8 [facility] ([facility]) Branch hours for 14 days. OTC gabapentin 2022-0 2022- No [id number] 600mg Take 2 Univers 300 mg 1-10 -25 capsules ity of capsule 00:00: 05:59 by mouth [place] 00 :00 every 8 [facility] ([facility]) Branch hours for 14 days. celecoxib 2022-0 2022- No [id number] 200mg Take 2 Univers 100 mg 1-10 -25 capsules ity of capsule 00:00: 05:59 by mouth [place] 00 :00 in the Medical morning Branch and 2 capsules in the evening. Take with meals. Do all this for 14 days. acetaminoph 2022-2022- No [id number] 1000mg Take 2 Univers en 500 mg 1-10 -25 tablets by ity of tablet 00:00: 05:59 mouth [place] 00 :00 every 8 [facility] ([facility]) Branch hours for 14 days. OTC gabapentin 2022-0 2022- No [id number] 600mg Take 2 Univers 300 mg 1-10 -25 capsules ity of capsule 00:00: 05:59 by mouth [place] 00 :00 every 8 [facility] (eight) Branch hours for 14 days. celecoxib 202-0 2022- No [id number] 200mg Take 2 Univers 100 mg 1-10 01-25 capsules ity of capsule 00:00: 05:59 by mouth [place] 00 :00 in the Medical morning Branch and 2 capsules in the evening. Take with meals. Do all this for 14 days. acetaminoph 202-0 2022- No [id number] 1000mg Take 2 Univers en 500 mg 1-10 -25 tablets by ity of tablet 00:00: 05:59 mouth [place] 00 :00 every 8 Medical (eight) Branch hours for 14 days. OTC gabapentin 2023-0 202- No [id number] 600mg Take 2 Univers 300 mg 1-10 -25 capsules ity of capsule 00:00: 05:59 by mouth [place] 00 :00 every 8 Medical (eight) Branch hours for 14 days. celecoxib 2023-0 202- No [id number] 200mg Take 2 Univers 100 mg 1-10 -25 capsules ity of capsule 00:00: 05:59 by mouth [place] 00 :00 in the Medical morning Branch and 2 capsules in the evening. Take with meals. Do all this for 14 days. acetaminoph 202-0 2022- No [id number] 1000mg Take 2 Univers en 500 mg 1-10 -25 tablets by ity of tablet 00:00: 05:59 mouth [place] 00 :00 every 8 Medical (eight) Branch hours for 14 days. OTC gabapentin 2023-0 2022- No [id number] 600mg Take 2 Univers 300 mg 1-10 -25 capsules ity of capsule 00:00: 05:59 by mouth [place] 00 :00 every 8 Medical (eight) Branch hours for 14 days. celecoxib 2023-0 2022- No [id number] 200mg Take 2 Univers 100 mg 1-10 -25 capsules ity of capsule 00:00: 05:59 by mouth [place] 00 :00 in the Medical morning Branch and 2 capsules in the evening. Take with meals. Do all this for 14 days. acetaminoph 2023-0 2022- No [id number] 1000mg Take 2 Univers en 500 mg 1-10 -25 tablets by ity of tablet 00:00: 05:59 mouth [place] 00 :00 every 8 Medical (eight) Branch hours for 14 days. OTC gabapentin 2023-0 2022- No [id number] 600mg Take 2 Univers 300 mg 1-10 -25 capsules ity of capsule 00:00: 05:59 by mouth [place] 00 :00 every 8 Medical (eight) Branch hours for 14 days. celecoxib 2023-0 202- No [id number] 200mg Take 2 Univers 100 mg 1-10 -25 capsules ity of capsule 00:00: 05:59 by mouth [place] 00 :00 in the Medical morning Branch and 2 capsules in the evening. Take with meals. Do all this for 14 days. acetaminoph 2023-0 202- No [id number] 1000mg Take 2 Univers en 500 mg 1-10 -25 tablets by ity of tablet 00:00: 05:59 mouth [place] 00 :00 every 8 [facility] ([facility]) Branch hours for 14 days. OTC gabapentin 2023-0 202- No [id number] 600mg Take 2 Univers 300 mg 1-10 -25 capsules ity of capsule 00:00: 05:59 by mouth [place] 00 :00 every 8 [facility] ([facility]) Branch hours for 14 days. celecoxib 2023-0 202- No [id number] 200mg Take 2 Univers 100 mg 1-10 -25 capsules ity of capsule 00:00: 05:59 by mouth [place] 00 :00 in the Medical morning Branch and 2 capsules in the evening. Take with meals. Do all this for 14 days. acetaminoph 202-0 2022- No [id number] 1000mg Take 2 Univers en 500 mg 1-10 -25 tablets by ity of tablet 00:00: 05:59 mouth [place] 00 :00 every 8 [facility] ([facility]) Branch hours for 14 days. OTC gabapentin 2023-0 2022- No [id number] 600mg Take 2 Univers 300 mg 1-10 -25 capsules ity of capsule 00:00: 05:59 by mouth [place] 00 :00 every 8 [facility] ([facility]) Branch hours for 14 days. celecoxib 2023-0 2022- No [id number] 200mg Take 2 Univers 100 mg 1-10 -25 capsules ity of capsule 00:00: 05:59 by mouth [place] 00 :00 in the Medical morning Branch and 2 capsules in the evening. Take with meals. Do all this for 14 days. acetaminoph 2023-0 2022- No [id number] 1000mg Take 2 Univers en 500 mg 1-10 -25 tablets by ity of tablet 00:00: 05:59 mouth [place] 00 :00 every 8 [facility] ([facility]) Branch hours for 14 days. OTC gabapentin 2023-0 202- No [id number] 600mg Take 2 Univers 300 mg 1-10 01-25 capsules ity of capsule 00:00: 05:59 by mouth [place] 00 :00 every 8 [facility] ([facility]) Branch hours for 14 days. acetaminoph 2023-0 2022- No [id number] 1000mg Take 2 Univers en 500 mg 09-20-25 tablets by ity of tablet 00:00: 05:59 mouth [place] 00 :00 every 8 Medical (eight) Branch hours for 14 days. OTC gabapentin 2023-0 2022- No [id number] 600mg Take 2 Univers 300 mg -06 11-25 capsules ity of capsule 00:00: 05:59 by mouth [place] 00 :00 every 8 Medical (eight) Branch hours for 14 days. acetaminoph 2022-0 2022- No [id number] 1000mg Take 2 Univers en 500 mg -06 11-25 tablets by ity of tablet 00:00: 05:59 mouth [place] 00 :00 every 8 Medical (eight) Branch hours for 14 days. OTC clindamycin 2022-0 2022- No [id number] 300mg Take 1 Univers 300 mg 09-20 capsule by ity of capsule 00:00: 05:59 mouth 4 [place] 00 :00 ([facility]) Medical times [place] daily for 7 days. clindamycin 2022-0 2022- No [id number] 300mg Take 1 Univers 300 mg 09-20 capsule by ity of capsule 00:00: 05:59 mouth 4 [place] 00 :00 ([facility]) [facility] times [place] daily for 7 days. celecoxib 2022-0 2022- No [id number] 200mg Take 1 Univers (CELEBREX) 09-20 capsule by it y of 200 mg 00:00: 05:59 mouth in [place] capsule 00 :00 the Medical morning Branch and 1 capsule in the evening. Take with meals. Do all this for 7 days. clindamycin 2022-0 2022- No [id number] 300mg Take 1 Univers 300 mg 09-2018 capsule by ity of capsule 00:00: 05:59 mouth 4 [place] 00 :00 ([facility]) [facility] times [place] daily for 7 days. celecoxib 202-0 2022- No [id number] 200mg Take 1 Univers (CELEBREX) 09-20-18 capsule by it y of 200 mg 00:00: 05:59 mouth in [place] capsule 00 :00 the Medical morning Branch and 1 capsule in the evening. Take with meals. Do all this for 7 days. clindamycin 2023-0 2023- No [id number] 300mg Take 1 Univers 300 mg 09-20 capsule by ity of capsule 00:00: 05:59 mouth 4 [place] 00 :00 ([facility] daily for 7 days. celecoxib 2023-0 2023- No [id number] 200mg Take 1 Univers (CELEBREX) 09-20 capsule by it y of 200 mg 00:00: 05:59 mouth in [place] capsule 00 :00 [facility] and 1 capsule in the evening. Take with meals. Do all this for 7 days. clindamycin 2023-0 2023- No [id number] 300mg Take 1 Univers 300 mg 09-20 capsule by ity of capsule 00:00: 05:59 mouth 4 [place] 00 :00 ([facility] daily for 7 days. celecoxib 2023-0 2023- No [id number] 200mg Take 1 Univers (CELEBREX) 09-20 capsule by it y of 200 mg 00:00: 05:59 mouth in [place] capsule 00 :00 [facility] and 1 capsule in the evening. Take with meals. Do all this for 7 days. clindamycin 2023-0 2023- No [id number] 300mg Take 1 Univers 300 mg 09-20 capsule by ity of capsule 00:00: 05:59 mouth 4 [place] 00 :00 ([facility] daily for 7 days. celecoxib 2023-0 2023- No [id number] 200mg Take 1 Univers (CELEBREX) 09-20 capsule by it y of 200 mg 00:00: 05:59 mouth in [place] capsule 00 :00 [facility] and 1 capsule in the evening. Take with meals. Do all this for 7 days. clindamycin 2023-0 2023- No [id number] 300mg Take 1 Univers 300 mg 09-20 capsule by ity of capsule 00:00: 05:59 mouth 4 [place] 00 :00 ([facility] times [place] daily for 7 days. celecoxib 2023-0 2023- No [id number] 200mg Take 1 Univers (CELEBREX) 09-20 capsule by it y of 200 mg 00:00: 05:59 mouth in [place] capsule 00 :00 the Medical morning Branch and 1 capsule in the evening. Take with meals. Do all this for 7 days. clindamycin 2022- No [id number] 300mg Take 1 Univers 300 mg 09-20 capsule by ity of capsule 00:00: 05:59 mouth 4 [place] 00 :00 (four) Medical times Branch daily for 7 days. celecoxib 2022- No [id number] 200mg Take 1 Univers (CELEBREX) 09-20 capsule by it y of 200 mg 00:00: 05:59 mouth in [place] capsule 00 :00 the Medical morning Branch and 1 capsule in the evening. Take with meals. Do all this for 7 days. ESCITALOPRA 2021-09 Yes [id number] TAKE 1 Univers M OXALATE 2-28 TABLET BY ity o f 20 mg 00:00: MOUTH [place] tablet 00 EVERY DAY Medical Branch ESCITALOPRA 2021-09 Yes [id number] TAKE 1 Univers M OXALATE 2-28 TABLET BY ity o f 20 mg 00:00: MOUTH [place] tablet 00 EVERY DAY Medical Branch ESCITALOPRA 2021-09 Yes [id number] TAKE 1 Univers M OXALATE 2-28 TABLET BY ity o f 20 mg 00:00: MOUTH [place] tablet 00 EVERY DAY Medical Branch ESCITALOPRA 2021-09 Yes [id number] TAKE 1 Univers M OXALATE 2-28 TABLET BY ity o f 20 mg 00:00: MOUTH [place] tablet 00 EVERY DAY Medical Branch ESCITALOPRA 2021-09 Yes [id number] TAKE 1 Univers M OXALATE 2-28 TABLET BY ity o f 20 mg 00:00: MOUTH [place] tablet 00 EVERY DAY Medical Branch ESCITALOPRA 2021-09 Yes [id number] TAKE 1 Univers M OXALATE 2-28 TABLET BY ity o f 20 mg 00:00: MOUTH [place] tablet 00 EVERY DAY Medical Branch ESCITALOPRA 2021-09 Yes [id number] TAKE 1 Univers M OXALATE 2-28 TABLET BY ity o f 20 mg 00:00: MOUTH [place] tablet 00 EVERY DAY Medical Branch ESCITALOPRA 2021-09 Yes [id number] TAKE 1 Univers M OXALATE 2-28 TABLET BY ity o f 20 mg 00:00: MOUTH [place] tablet 00 EVERY DAY Medical Branch ESCITALOPRA 2021-09 Yes [id number] TAKE 1 Univers M OXALATE 2-28 TABLET BY ity o f 20 mg 00:00: MOUTH [place] tablet 00 EVERY DAY Medical Branch ESCITALOPRA 2021-09 Yes [id number] TAKE 1 Univers M OXALATE 2-28 TABLET BY ity o f 20 mg 00:00: MOUTH [place] tablet 00 EVERY DAY Medical Branch ESCITALOPRA 2021-09 Yes [id number] TAKE 1 Univers M OXALATE 2-28 TABLET BY ity o f 20 mg 00:00: MOUTH [place] tablet 00 EVERY DAY Medical Branch ESCITALOPRA 2021-09 Yes [id number] TAKE 1 Univers M OXALATE 2-28 TABLET BY ity o f 20 mg 00:00: MOUTH [place] tablet 00 EVERY DAY Medical Branch ESCITALOPRA 2021-09 Yes [id number] TAKE 1 Univers M OXALATE 2-28 TABLET BY ity o f 20 mg 00:00: MOUTH [place] tablet 00 EVERY DAY Medical Branch ESCITALOPRA 2021-09 Yes [id number] TAKE 1 Univers M OXALATE 2-28 TABLET BY ity o f 20 mg 00:00: MOUTH [place] tablet 00 EVERY DAY Medical Branch ESCITALOPRA 2021-09 Yes [id number] TAKE 1 Univers M OXALATE 2-28 TABLET BY ity o f 20 mg 00:00: MOUTH [place] tablet 00 EVERY DAY Medical Branch ESCITALOPRA 2021-09 Yes [id number] TAKE 1 Univers M OXALATE 2-28 TABLET BY ity o f 20 mg 00:00: MOUTH [place] tablet 00 EVERY DAY Medical Branch ESCITALOPRA 2021-09 Yes [id number] TAKE 1 Univers M OXALATE 2-28 TABLET BY ity o f 20 mg 00:00: MOUTH [place] tablet 00 EVERY DAY Medical Branch ESCITALOPRA 2021-09 Yes [id number] TAKE 1 Univers M OXALATE 2-28 TABLET BY ity o f 20 mg 00:00: MOUTH [place] tablet 00 EVERY DAY Medical Branch ESCITALOPRA 2021-09 Yes [id number] TAKE 1 Univers M OXALATE 2-28 TABLET BY ity o f 20 mg 00:00: MOUTH [place] tablet 00 EVERY DAY Medical Branch ESCITALOPRA 2021-09 Yes [id number] TAKE 1 Univers M OXALATE 2-28 TABLET BY ity o f 20 mg 00:00: MOUTH [place] tablet 00 EVERY DAY Medical Branch ESCITALOPRA 2021-09 Yes [id number] TAKE 1 Univers M OXALATE 2-28 TABLET BY ity o f 20 mg 00:00: MOUTH [place] tablet 00 EVERY DAY Medical Branch ESCITALOPRA 2021-09 Yes [id number] TAKE 1 Univers M OXALATE 2-28 TABLET BY ity o f 20 mg 00:00: MOUTH [place] tablet 00 EVERY DAY Medical Branch ESCITALOPRA 2021-09 Yes [id number] TAKE 1 Univers M OXALATE 2-28 TABLET BY ity o f 20 mg 00:00: MOUTH [place] tablet 00 EVERY DAY Medical Branch ESCITALOPRA 2021-09 Yes [id number] TAKE 1 Univers M OXALATE 2-28 TABLET BY ity o f 20 mg 00:00: MOUTH [place] tablet 00 EVERY DAY Medical Branch ESCITALOPRA 2021-09 Yes [id number] TAKE 1 Univers M OXALATE 2-28 TABLET BY ity o f 20 mg 00:00: MOUTH [place] tablet 00 EVERY DAY Medical Branch ESCITALOPRA 2021-09 Yes [id number] TAKE 1 Univers M OXALATE 2-28 TABLET BY ity o f 20 mg 00:00: MOUTH [place] tablet 00 EVERY DAY Medical Branch ESCITALOPRA 2021-09 Yes [id number] TAKE 1 Univers M OXALATE 2-28 TABLET BY ity o f 20 mg 00:00: MOUTH [place] tablet 00 EVERY DAY Medical Branch ESCITALOPRA 2021-09 Yes [id number] TAKE 1 Univers M OXALATE 2-28 TABLET BY ity o f 20 mg 00:00: MOUTH [place] tablet 00 EVERY DAY Medical Branch ESCITALOPRA 2021-09 Yes [id number] TAKE 1 Univers M OXALATE 2-28 TABLET BY ity o f 20 mg 00:00: MOUTH [place] tablet 00 EVERY DAY Medical Branch ESCITALOPRA 2021-09 Yes [id number] TAKE 1 Univers M OXALATE 2-28 TABLET BY ity o f 20 mg 00:00: MOUTH [place] tablet 00 EVERY DAY Medical Branch ESCITALOPRA 2021-09 Yes [id number] TAKE 1 Univers M OXALATE 2-28 TABLET BY ity o f 20 mg 00:00: MOUTH [place] tablet 00 EVERY DAY Medical Branch ESCITALOPRA 2021-09 Yes [id number] TAKE 1 Univers M OXALATE 2-28 TABLET BY ity o f 20 mg 00:00: MOUTH [place] tablet 00 EVERY DAY Medical Branch ESCITALOPRA 2021-09 Yes [id number] TAKE 1 Univers M OXALATE 2-28 TABLET BY ity o f 20 mg 00:00: MOUTH [place] tablet 00 EVERY DAY Medical Branch ESCITALOPRA 2021-09 Yes [id number] TAKE 1 Univers M OXALATE 2-28 TABLET BY ity o f 20 mg 00:00: MOUTH [place] tablet 00 EVERY DAY Medical Branch ESCITALOPRA 2021-09 Yes [id number] TAKE 1 Univers M OXALATE 2-28 TABLET BY ity o f 20 mg 00:00: MOUTH [place] tablet 00 EVERY DAY Medical Branch ESCITALOPRA 2021-09 Yes [id number] TAKE 1 Univers M OXALATE 2-28 TABLET BY ity o f 20 mg 00:00: MOUTH [place] tablet 00 EVERY DAY [facility] Branch ketorolac 2021-09- No [id number] 60mg Uni vers (TORADOL) 10-25 ity of injection 19:00: 18:23 [place] 60 mg 00 :00 [facility] Branch ketorolac 2021-09- No [id number] 60mg 60 mg, U nivers (TORADOL) 10-25 Intramuscu ity of injection 19:00: 18:23 [place], ONCE, [place] 60 mg 00 :00 1 dose, On [facility] 08/24/22 at 1300, Routine ketorolac 2021-09- No [id number] 60mg Uni vers (TORADOL) 10-25 ity of injection 19:00: 18:23 [place] 60 mg 00 :00 [facility] Branch ketorolac 2021-09- No [id number] 60mg 60 mg, U nivers (TORADOL) 10-25 Intramuscu ity of injection 19:00: 18:23 [place], ONCE, [place] 60 mg 00 :00 1 dose, On [facility] 08/24/22 at 1300, Routine MELOXICAM 2021-09 Yes [id number] TAKE 1 U nivers 7.5 mg 2-05 TABLET BY ity of tablet 00:00: MOUTH [place] 00 EVERY DAY [facility] Branch MELOXICAM 2021-09 Yes [id number] TAKE 1 U nivers 7.5 mg 2-05 TABLET BY ity of tablet 00:00: MOUTH [place] 00 EVERY DAY [facility] Branch MELOXICAM 2021-09 Yes [id number] TAKE 1 U nivers 7.5 mg 2-05 TABLET BY ity of tablet 00:00: MOUTH [place] 00 EVERY DAY [facility] Branch MELOXICAM 2021-09 Yes [id number] TAKE 1 U nivers 7.5 mg 2-05 TABLET BY ity of tablet 00:00: MOUTH [place] 00 EVERY DAY [facility] Branch MELOXICAM 2021-09 Yes [id number] TAKE 1 U nivers 7.5 mg 2-05 TABLET BY ity of tablet 00:00: MOUTH [place] EVERY DAY Medical Branch MELOXICAM 2021-09 Yes [id number] TAKE 1 U nivers 7.5 mg 2-05 TABLET BY ity of tablet 00:00: MOUTH [place] EVERY DAY Medical Branch MELOXICAM 2021-09 Yes [id number] TAKE 1 U nivers 7.5 mg 2-05 TABLET BY ity of tablet 00:00: MOUTH [place] 00 EVERY DAY Medical Branch MELOXICAM 2021-09 Yes [id number] TAKE 1 U nivers 7.5 mg 2-05 TABLET BY ity of tablet 00:00: MOUTH [place] EVERY DAY Medical Branch MELOXICAM 2021-09 Yes [id number] TAKE 1 U nivers 7.5 mg 2-05 TABLET BY ity of tablet 00:00: MOUTH [place] EVERY DAY Medical Branch MELOXICAM 2021-09 Yes [id number] TAKE 1 U nivers 7.5 mg 2-05 TABLET BY ity of tablet 00:00: MOUTH [place] 00 EVERY DAY Medical Branch MELOXICAM 2021-09 Yes [id number] TAKE 1 U nivers 7.5 mg 2-05 TABLET BY ity of tablet 00:00: MOUTH [place] 00 EVERY DAY Medical Branch MELOXICAM 2021-09 Yes [id number] TAKE 1 U nivers 7.5 mg 2-05 TABLET BY ity of tablet 00:00: MOUTH [place] EVERY DAY Medical Branch MELOXICAM 2021-09 Yes [id number] TAKE 1 U nivers 7.5 mg 2-05 TABLET BY ity of tablet 00:00: MOUTH [place] EVERY DAY Medical Branch MELOXICAM 2021-09 Yes [id number] TAKE 1 U nivers 7.5 mg 2-05 TABLET BY ity of tablet 00:00: MOUTH [place] 00 EVERY DAY Medical Branch MELOXICAM 2021-09 Yes [id number] TAKE 1 U nivers 7.5 mg 2-05 TABLET BY ity of tablet 00:00: MOUTH [place] 00 EVERY DAY Medical Branch MELOXICAM 2021-09 Yes [id number] TAKE 1 U nivers 7.5 mg 2-05 TABLET BY ity of tablet 00:00: MOUTH [place] EVERY DAY Medical Branch MELOXICAM 2021-09- No [id number] TAKE 1 Univers 7.5 mg 2-05 01-26 TABLET BY ity of tablet 00:00: 00:00 MOUTH [place] 00 :00 EVERY DAY Medical Branch triamcinolo 2021-09- No [id number] 40mg Univers ne 0-10 - ity of acetonide 20:00: 18:55 [place] (KENALOG) 00 :00 Medical injection Branch 40 mg triamcinolo 2021-09- No [id number] 40mg 40 mg, Univers ne 0-10 - Intramuscu ity of acetonide 20:00: 18:55 [place], ONCE, [place] ([place] 00 :00 1 dose, On Medi zan injection Mon Branch 40 mg 06/20/22 at 1500, Routine triamcinolo 2021-09- No [id number] 40mg Univers ne 0-10 06-20 ity of acetonide 20:00: 18:55 [place] (KENALOG) 00 :00 Medical injection Branch 40 mg triamcinolo 2021-09- No [id number] 40mg 40 mg, Univers ne 0-10 06-20 Intramuscu ity of acetonide 20:00: 18:55 [place], ONCE, [place] ([place] 00 :00 1 dose, On Medi zan injection Mon Branch 40 mg 06/20/22 at 1500, Routine methylPREDN 2021-09- No [id number] 80mg [facility] ISolone 0-10 - ity of acetate 19:45: 18:55 [place] (DEPO-MEDRO 00 :00 Medical L) Branch injection 80 mg methylPREDN 2021-09- No [id number] 80mg 80 mg, [facility] ISolone 0-10 06-20 Intramuscu ity of acetate 19:45: 18:55 [place], ONCE, Baljeet as (DEPO-MEDRO 00 :00 1 dose, On Me dical L) Mon Branch injection 06/20/22 80 mg at 1445, Routine methylPREDN 2021-09- No [id number] 80mg [facility] ISolone 0-10 - ity of acetate 19:45: 18:55 [place] (DEPO-MEDRO 00 :00 Medical L) Branch injection 80 mg methylPREDN 2021-09- No [id number] 80mg 80 mg, [facility] ISolone 06-20 Intramuscu ity of acetate 19:45: 18:55 [place], ONCE, [place] (DEPO-MEDRO 00 :00 1 dose, On Me dical L) Mon Branch injection 06/20/22 80 mg at 1445, Routine MELOXICAM Yes [id number] TAKE 1 U nivers 7.5 mg 9-21 TABLET BY ity of tablet 00:00: MOUTH [place] 00 EVERY DAY Medical Branch MELOXICAM Yes [id number] TAKE 1 U nivers 7.5 mg 9-21 TABLET BY ity of tablet 00:00: MOUTH [place] 00 EVERY DAY Medical Branch MELOXICAM Yes [id number] TAKE 1 U nivers 7.5 mg 9-21 TABLET BY ity of tablet 00:00: MOUTH [place] 00 EVERY DAY Medical Branch MELOXICAM Yes [id number] TAKE 1 U nivers 7.5 mg 9-21 TABLET BY ity of tablet 00:00: MOUTH [place] 00 EVERY DAY Medical Branch MELOXICAM Yes [id number] TAKE 1 U nivers 7.5 mg 9-21 TABLET BY ity of tablet 00:00: MOUTH [place] 00 EVERY DAY Medical Branch MELOXICAM Yes [id number] TAKE 1 U nivers 7.5 mg 9-21 TABLET BY ity of tablet 00:00: MOUTH [place] 00 EVERY DAY Medical Branch MELOXICAM 0 Yes [id number] TAKE 1 U nivers 7.5 mg 9-21 TABLET BY ity of tablet 00:00: MOUTH [place] 00 EVERY DAY Medical Branch MELOXICAM 0 Yes [id number] TAKE 1 [facility] nivers 7.5 mg 9-21 TABLET BY ity of tablet 00:00: MOUTH [place] 00 EVERY DAY Medical Branch MELOXICAM 2021- No [id number] TAKE 1 [facility] 7.5 mg 9-21 12-05 TABLET BY ity of tablet 00:00: 00:00 MOUTH [place] 00 :00 EVERY DAY Medical Branch nystatin Yes [id number] Apply to U nivers 100,000 8-29 area(s) 2 ity of unit/gram 00:00: (two) [place] powder 00 times Medical daily. Branch nystatin 2022-0 Yes [id number] Apply to U nivers 100,000 8-29 area(s) 2 ity of unit/gram 00:00: (two) [place] powder 00 times Medical daily. Branch nystatin 2022-0 Yes [id number] Apply to U nivers 100,000 8-29 area(s) 2 ity of unit/gram 00:00: (two) [place] powder 00 times Medical daily. Branch nystatin 2022-0 Yes [id number] Apply to U nivers 100,000 8-29 area(s) 2 ity of unit/gram 00:00: (two) [place] powder 00 times Medical daily. Branch nystatin 2022-0 Yes [id number] Apply to U nivers 100,000 8-29 area(s) 2 ity of unit/gram 00:00: (two) [place] powder 00 times Medical daily. Branch nystatin 2022-0 Yes [id number] Apply to U nivers 100,000 8-29 area(s) 2 ity of unit/gram 00:00: (two) [place] powder 00 times Medical daily. Branch nystatin 2022-0 Yes [id number] Apply to U nivers 100,000 8-29 area(s) 2 ity of unit/gram 00:00: (two) [place] powder 00 times Medical daily. Branch nystatin 2022-0 Yes [id number] Apply to U nivers 100,000 8-29 area(s) 2 ity of unit/gram 00:00: (two) [place] powder 00 times Medical daily. Branch nystatin 2022-0 Yes [id number] Apply to U nivers 100,000 8-29 area(s) 2 ity of unit/gram 00:00: (two) [place] powder 00 times Medical daily. Branch nystatin 2022-0 Yes [id number] Apply to U nivers 100,000 8-29 area(s) 2 ity of unit/gram 00:00: (two) [place] powder 00 times Medical daily. Branch nystatin 2022-0 Yes [id number] Apply to U nivers 100,000 8-29 area(s) 2 ity of unit/gram 00:00: (two) [place] powder 00 times Medical daily. Branch nystatin 2022-0 Yes [id number] Apply to U nivers 100,000 8-29 area(s) 2 ity of unit/gram 00:00: (two) [place] powder 00 times Medical daily. Branch nystatin 2022-0 Yes [id number] Apply to U nivers 100,000 8-29 area(s) 2 ity of unit/gram 00:00: (two) [place] powder 00 times Medical daily. Branch nystatin 2022-0 Yes [id number] Apply to U nivers 100,000 8-29 area(s) 2 ity of unit/gram 00:00: (two) [place] powder 00 times Medical daily. Branch nystatin 2022-0 Yes [id number] Apply to U nivers 100,000 8-29 area(s) 2 ity of unit/gram 00:00: (two) [place] powder 00 times Medical daily. Branch nystatin 2022-0 Yes [id number] Apply to U nivers 100,000 8-29 area(s) 2 ity of unit/gram 00:00: (two) [place] powder 00 times Medical daily. Branch nystatin 2022-0 Yes [id number] Apply to U nivers 100,000 8-29 area(s) 2 ity of unit/gram 00:00: (two) [place] powder 00 times Medical daily. Branch nystatin 2022-0 Yes [id number] Apply to U nivers 100,000 8-29 area(s) 2 ity of unit/gram 00:00: (two) [place] powder 00 times Medical daily. Branch nystatin 2022-0 Yes [id number] Apply to U nivers 100,000 8-29 area(s) 2 ity of unit/gram 00:00: (two) [place] powder 00 times Medical daily. Branch nystatin 2022-0 Yes [id number] Apply to U nivers 100,000 8-29 area(s) 2 ity of unit/gram 00:00: (two) [place] powder 00 times Medical daily. Branch nystatin 2022-0 Yes [id number] Apply to U nivers 100,000 8-29 area(s) 2 ity of unit/gram 00:00: (two) [place] powder 00 times Medical daily. Branch nystatin 2022-0 Yes [id number] Apply to U nivers 100,000 8-29 area(s) 2 ity of unit/gram 00:00: (two) [place] powder 00 times Medical daily. Branch nystatin 2022-0 Yes [id number] Apply to U nivers 100,000 8-29 area(s) 2 ity of unit/gram 00:00: (two) [place] powder 00 times Medical daily. Branch nystatin 2022-0 Yes [id number] Apply to U nivers 100,000 8-29 area(s) 2 ity of unit/gram 00:00: (two) [place] powder 00 times Medical daily. Branch nystatin 2022-0 Yes [id number] Apply to U nivers 100,000 8-29 area(s) 2 ity of unit/gram 00:00: (two) [place] powder 00 times Medical daily. Branch nystatin 2022-0 Yes [id number] Apply to U nivers 100,000 8-29 area(s) 2 ity of unit/gram 00:00: (two) [place] powder 00 times Medical daily. Branch nystatin 2022-0 Yes [id number] Apply to U nivers 100,000 8-29 area(s) 2 ity of unit/gram 00:00: (two) [place] powder 00 times Medical daily. Branch nystatin 2022-0 Yes [id number] Apply to U nivers 100,000 8-29 area(s) 2 ity of unit/gram 00:00: (two) [place] powder 00 times Medical daily. Branch nystatin 2022-0 Yes [id number] Apply to U nivers 100,000 8-29 area(s) 2 ity of unit/gram 00:00: (two) [place] powder 00 times Medical daily. Branch nystatin 2022-0 Yes [id number] Apply to U nivers 100,000 8-29 area(s) 2 ity of unit/gram 00:00: (two) [place] powder 00 times Medical daily. Branch nystatin 2022-0 Yes [id number] Apply to U nivers 100,000 8-29 area(s) 2 ity of unit/gram 00:00: (two) [place] powder 00 times Medical daily. Branch nystatin 2022-0 Yes [id number] Apply to U nivers 100,000 8-29 area(s) 2 ity of unit/gram 00:00: (two) [place] powder 00 times Medical daily. Branch nystatin 2022-0 Yes [id number] Apply to U nivers 100,000 8-29 area(s) 2 ity of unit/gram 00:00: (two) [place] powder 00 times Medical daily. Branch nystatin 2022-0 Yes [id number] Apply to U nivers 100,000 8-29 area(s) 2 ity of unit/gram 00:00: (two) [place] powder 00 times Medical daily. Branch nystatin 2022-0 Yes [id number] Apply to U nivers 100,000 8-29 area(s) 2 ity of unit/gram 00:00: (two) [place] powder 00 times Medical daily. Branch nystatin 2022-0 Yes [id number] Apply to U nivers 100,000 8-29 area(s) 2 ity of unit/gram 00:00: (two) [place] powder 00 times Medical daily. Branch nystatin 2022-0 Yes [id number] Apply to U nivers 100,000 8-29 area(s) 2 ity of unit/gram 00:00: (two) [place] powder 00 times Medical daily. Branch nystatin 2022-0 Yes [id number] Apply to U nivers 100,000 8-29 area(s) 2 ity of unit/gram 00:00: (two) [place] powder 00 times Medical daily. Branch nystatin 2022-0 Yes [id number] Apply to U nivers 100,000 8-29 area(s) 2 ity of unit/gram 00:00: (two) [place] powder 00 times Medical daily. Branch nystatin 2022-0 Yes [id number] Apply to U nivers 100,000 8-29 area(s) 2 ity of unit/gram 00:00: (two) [place] powder 00 times Medical daily. Branch nystatin 2022-0 Yes [id number] Apply to U nivers 100,000 8-29 area(s) 2 ity of unit/gram 00:00: (two) [place] powder 00 times Medical daily. Branch nystatin 2022-0 Yes [id number] Apply to U nivers 100,000 8-29 area(s) 2 ity of unit/gram 00:00: (two) [place] powder 00 times Medical daily. Branch nystatin 2022-0 Yes [id number] Apply to U nivers 100,000 8-29 area(s) 2 ity of unit/gram 00:00: (two) [place] powder 00 times Medical daily. Branch nystatin 2022-0 Yes [id number] Apply to U nivers 100,000 8-29 area(s) 2 ity of unit/gram 00:00: (two) [place] powder 00 times Medical daily. Branch nystatin 2022-0 Yes [id number] Apply to U nivers 100,000 8-29 area(s) 2 ity of unit/gram 00:00: (two) [place] powder 00 times Medical daily. Branch nystatin 2022-0 Yes [id number] Apply to U nivers 100,000 8-29 area(s) 2 ity of unit/gram 00:00: (two) [place] powder 00 times Medical daily. Branch nystatin 2022-0 Yes [id number] Apply to U nivers 100,000 8-29 area(s) 2 ity of unit/gram 00:00: (two) [place] powder 00 times Medical daily. Branch nystatin 2022-0 Yes [id number] Apply to U nivers 100,000 8-29 area(s) 2 ity of unit/gram 00:00: (two) [place] powder 00 times Medical daily. Branch nystatin 2022-0 Yes [id number] Apply to U nivers 100,000 8-29 area(s) 2 ity of unit/gram 00:00: (two) [place] powder 00 times Medical daily. Branch nystatin 2022-0 Yes [id number] Apply to U nivers 100,000 8-29 area(s) 2 ity of unit/gram 00:00: (two) [place] powder 00 times Medical daily. Branch LOSARTAN 50 2021-0 Yes [id number] TAKE 1 [facility] mg tablet 7-15 TABLET BY ity o f 00:00: MOUTH [place] 00 EVERY DAY Medical Branch LOSARTAN 50 2021-0 Yes [id number] TAKE 1 [facility] mg tablet 7-15 TABLET BY ity o f 00:00: MOUTH [place] 00 EVERY DAY Medical Branch LOSARTAN 50 2021-0 Yes [id number] TAKE 1 [facility] mg tablet 7-15 TABLET BY ity o f 00:00: MOUTH [place] 00 EVERY DAY Medical Branch LOSARTAN 50 2-0 Yes [id number] TAKE 1 [facility] mg tablet 7-15 TABLET BY ity o f 00:00: MOUTH [place] 00 EVERY DAY Medical Branch LOSARTAN 50 2022-0 Yes [id number] TAKE 1 [facility] mg tablet 7-15 TABLET BY ity o f 00:00: MOUTH [place] 00 EVERY DAY Medical Branch LOSARTAN 50 2-0 Yes [id number] TAKE 1 [facility] mg tablet 7-15 TABLET BY ity o f 00:00: MOUTH [place] 00 EVERY DAY Medical Branch LOSARTAN 50 2-0 Yes [id number] TAKE 1 [facility] mg tablet 7-15 TABLET BY ity o f 00:00: MOUTH [place] 00 EVERY DAY Medical Branch LOSARTAN 50 2-0 Yes [id number] TAKE 1 [facility] mg tablet 7-15 TABLET BY ity o f 00:00: MOUTH [place] 00 EVERY DAY Medical Branch LOSARTAN 50 2-0 Yes [id number] TAKE 1 [facility] mg tablet 7-15 TABLET BY ity o f 00:00: MOUTH [place] 00 EVERY DAY Medical Branch LOSARTAN 50 2-0 Yes [id number] TAKE 1 [facility] mg tablet 7-15 TABLET BY ity o f 00:00: MOUTH [place] 00 EVERY DAY Medical Branch LOSARTAN 50 2-0 Yes [id number] TAKE 1 [facility] mg tablet 7-15 TABLET BY ity o f 00:00: MOUTH [place] 00 EVERY DAY Medical Branch LOSARTAN 50 2-0 Yes [id number] TAKE 1 [facility] mg tablet 7-15 TABLET BY ity o f 00:00: MOUTH [place] 00 EVERY DAY Medical Branch LOSARTAN 50 2-0 Yes [id number] TAKE 1 [facility] mg tablet 7-15 TABLET BY ity o f 00:00: MOUTH [place] 00 EVERY DAY Medical Branch LOSARTAN 50 2-0 Yes [id number] TAKE 1 [facility] mg tablet 7-15 TABLET BY ity o f 00:00: MOUTH [place] 00 EVERY DAY Medical Branch LOSARTAN 50 2-0 Yes [id number] TAKE 1 [facility] mg tablet 7-15 TABLET BY ity o f 00:00: MOUTH [place] 00 EVERY DAY Medical Branch LOSARTAN 50 2-0 Yes [id number] TAKE 1 [facility] mg tablet 7-15 TABLET BY ity o f 00:00: MOUTH [place] 00 EVERY DAY Medical Branch LOSARTAN 50 2-0 Yes [id number] TAKE 1 [facility] mg tablet 7-15 TABLET BY ity o f 00:00: MOUTH [place] 00 EVERY DAY Medical Branch LOSARTAN 50 2-0 Yes [id number] TAKE 1 [facility] mg tablet 7-15 TABLET BY ity o f 00:00: MOUTH [place] 00 EVERY DAY Medical Branch LOSARTAN 50 2-0 Yes [id number] TAKE 1 [facility] mg tablet 7-15 TABLET BY ity o f 00:00: MOUTH [place] 00 EVERY DAY Medical Branch LOSARTAN 50 2-0 Yes [id number] TAKE 1 [facility] mg tablet 7-15 TABLET BY ity o f 00:00: MOUTH [place] 00 EVERY DAY Medical Branch LOSARTAN 50 2-0 Yes [id number] TAKE 1 [facility] mg tablet 7-15 TABLET BY ity o f 00:00: MOUTH [place] 00 EVERY DAY Medical Branch LOSARTAN 50 2022-0 Yes [id number] TAKE 1 [facility] mg tablet 7-15 TABLET BY ity o f 00:00: MOUTH [place] 00 EVERY DAY Medical Branch LOSARTAN 50 2022-0 Yes [id number] TAKE 1 [facility] mg tablet 7-15 TABLET BY ity o f 00:00: MOUTH [place] 00 EVERY DAY Medical Branch LOSARTAN 50 2-0 Yes [id number] TAKE 1 [facility] mg tablet 7-15 TABLET BY ity o f 00:00: MOUTH [place] 00 EVERY DAY Medical Branch LOSARTAN 50 2-0 Yes [id number] TAKE 1 [facility] mg tablet 7-15 TABLET BY ity o f 00:00: MOUTH [place] 00 EVERY DAY Medical Branch LOSARTAN 50 2-0 Yes [id number] TAKE 1 [facility] mg tablet 7-15 TABLET BY ity o f 00:00: MOUTH [place] 00 EVERY DAY Medical Branch LOSARTAN 50 2022-0 Yes [id number] TAKE 1 [facility] mg tablet 7-15 TABLET BY ity o f 00:00: MOUTH [place] 00 EVERY DAY Medical Branch LOSARTAN 50 2-0 Yes [id number] TAKE 1 [facility] mg tablet 7-15 TABLET BY ity o f 00:00: MOUTH [place] 00 EVERY DAY Medical Branch LOSARTAN 50 2022-0 Yes [id number] TAKE 1 [facility] mg tablet 7-15 TABLET BY ity o f 00:00: MOUTH [place] 00 EVERY DAY Medical Branch LOSARTAN 50 2022-0 Yes [id number] TAKE 1 [facility] mg tablet 7-15 TABLET BY ity o f 00:00: MOUTH [place] 00 EVERY DAY Medical Branch LOSARTAN 50 2022-0 Yes [id number] TAKE 1 [facility] mg tablet 7-15 TABLET BY ity o f 00:00: MOUTH [place] 00 EVERY DAY Medical Branch LOSARTAN 50 2022-0 Yes [id number] TAKE 1 [facility] mg tablet 7-15 TABLET BY ity o f 00:00: MOUTH [place] 00 EVERY DAY Medical Branch LOSARTAN 50 2022-0 Yes [id number] TAKE 1 [facility] mg tablet 7-15 TABLET BY ity o f 00:00: MOUTH [place] 00 EVERY DAY Medical Branch LOSARTAN 50 2022-0 Yes [id number] TAKE 1 [facility] mg tablet 7-15 TABLET BY ity o f 00:00: MOUTH [place] 00 EVERY DAY Medical Branch LOSARTAN 50 2-0 Yes [id number] TAKE 1 [facility] mg tablet 7-15 TABLET BY ity o f 00:00: MOUTH [place] 00 EVERY DAY Medical Branch LOSARTAN 50 2022-0 Yes [id number] TAKE 1 [facility] mg tablet 7-15 TABLET BY ity o f 00:00: MOUTH [place] 00 EVERY DAY Medical Branch LOSARTAN 50 2-0 Yes [id number] TAKE 1 [facility] mg tablet 7-15 TABLET BY ity o f 00:00: MOUTH [place] 00 EVERY DAY Medical Branch LOSARTAN 50 2-0 Yes [id number] TAKE 1 [facility] mg tablet 7-15 TABLET BY ity o f 00:00: MOUTH [place] 00 EVERY DAY Medical Branch LOSARTAN 50 2-0 Yes [id number] TAKE 1 [facility] mg tablet 7-15 TABLET BY ity o f 00:00: MOUTH [place] 00 EVERY DAY Medical Branch LOSARTAN 50 2-0 Yes [id number] TAKE 1 [facility] mg tablet 7-15 TABLET BY ity o f 00:00: MOUTH [place] 00 EVERY DAY Medical Branch LOSARTAN 50 2-0 Yes [id number] TAKE 1 [facility] mg tablet 7-15 TABLET BY ity o f 00:00: MOUTH [place] 00 EVERY DAY Medical Branch LOSARTAN 50 2-0 Yes [id number] TAKE 1 [facility] mg tablet 7-15 TABLET BY ity o f 00:00: MOUTH [place] 00 EVERY DAY Medical Branch LOSARTAN 50 2022-0 Yes [id number] TAKE 1 [facility] mg tablet 7-15 TABLET BY ity o f 00:00: MOUTH [place] 00 EVERY DAY Medical Branch LOSARTAN 50 2-0 Yes [id number] TAKE 1 [facility] mg tablet 7-15 TABLET BY ity o f 00:00: MOUTH [place] 00 EVERY DAY Medical Branch LOSARTAN 50 2022-0 Yes [id number] TAKE 1 [facility] mg tablet 7-15 TABLET BY ity o f 00:00: MOUTH [place] 00 EVERY DAY Medical Branch LOSARTAN 50 2-0 Yes [id number] TAKE 1 [facility] mg tablet 7-15 TABLET BY ity o f 00:00: MOUTH [place] 00 EVERY DAY Medical Branch LOSARTAN 50 2022-0 Yes [id number] TAKE 1 [facility] mg tablet 7-15 TABLET BY ity o f 00:00: MOUTH [place] 00 EVERY DAY Medical Branch LOSARTAN 50 2022-0 Yes [id number] TAKE 1 [facility] mg tablet 7-15 TABLET BY ity o f 00:00: MOUTH [place] 00 EVERY DAY Medical Branch LOSARTAN 50 2021-0 Yes [id number] TAKE 1 [facility] mg tablet 7-15 TABLET BY ity o f 00:00: MOUTH [place] 00 EVERY DAY Medical Branch LOSARTAN 50 2021-0 Yes [id number] TAKE 1 [facility] mg tablet 7-15 TABLET BY ity o f 00:00: MOUTH [place] EVERY DAY Medical Branch ATORVASTATI 2021-0 Yes [id number] TAKE 1 [facility] N 10 mg 6-30 TABLET BY ity of tablet 00:00: MOUTH [place] 00 EVERYDAY Medical AT BEDTIME Branch ATORVASTA 2021-0 Yes [id number] TAKE 1 [facility] N 10 mg 6-30 TABLET BY ity of tablet 00:00: MOUTH [place] EVERYDAY Medical AT BEDTIME [place] ATORVASTA 0 Yes [id number] TAKE 1 [facility] N 10 mg 6-30 TABLET BY ity of tablet 00:00: MOUTH EVERYDAY Medical AT BEDTIME [place] ATORVASTA 0 Yes [id number] TAKE 1 [facility] N 10 mg 6-30 TABLET BY ity of tablet 00:00: MOUTH [place] 00 EVERYDAY Medical AT BEDTIME [place] [facility] Yes [id number] TAKE 1 [facility] N 10 mg 6-30 TABLET BY ity of tablet 00:00: MOUTH [place] 00 EVERYDAY Medical AT BEDTIME [place] ATORVASTA 2021-0 Yes [id number] TAKE 1 [facility] N 10 mg 6-30 TABLET BY ity of tablet 00:00: MOUTH [place] EVERYDAY Medical AT BEDTIME [place] ATORVASTA 2021-0 Yes [id number] TAKE 1 [facility] N 10 mg 6-30 TABLET BY ity of tablet 00:00: MOUTH [place] 00 EVERYDAY Medical AT BEDTIME [place] AT[facility]STA 2021-0 Yes [id number] TAKE 1 [facility] N 10 mg 6-30 TABLET BY ity of tablet 00:00: MOUTH [place] 00 EVERYDAY Medical AT BEDTIME [place] AT[facility] 2021-0 Yes [id number] TAKE 1 [facility] N 10 mg 6-30 TABLET BY ity of tablet 00:00: MOUTH [place] 00 EVERYDAY Medical AT BEDTIME [place] ATORVASTA 2021-0 Yes [id number] TAKE 1 [facility] N 10 mg 6-30 TABLET BY ity of tablet 00:00: MOUTH EVERYDAY Medical AT BEDTIME [facility] 2021-0 Yes [id number] TAKE 1 [facility] N 10 mg 6-30 TABLET BY ity of tablet 00:00: MOUTH EVERYDAY Medical AT BEDTIME [facility] 2021-0 Yes [id number] TAKE 1 [facility] N 10 mg 6-30 TABLET BY ity of tablet 00:00: MOUTH EVERYDAY Medical AT BEDTIME [facility] 2021-0 Yes [id number] TAKE 1 [facility] N 10 mg 6-30 TABLET BY ity of tablet 00:00: MOUTH EVERYDAY Medical AT BEDTIME [facility] 2021-0 Yes [id number] TAKE 1 [facility] N 10 mg 6-30 TABLET BY ity of tablet 00:00: MOUTH EVERYDAY Medical AT BEDTIME [facility] 2021-0 Yes [id number] TAKE 1 [facility] N 10 mg 6-30 TABLET BY ity of tablet 00:00: MOUTH EVERYDAY Medical AT BEDTIME [facility] 2021-0 Yes [id number] TAKE 1 [facility] N 10 mg 6-30 TABLET BY ity of tablet 00:00: MOUTH EVERYDAY Medical AT BEDTIME [facility] 2021-0 Yes [id number] TAKE 1 [facility] N 10 mg 6-30 TABLET BY ity of tablet 00:00: MOUTH EVERYDAY Medical AT BEDTIME [facility] 2021-0 Yes [id number] TAKE 1 [facility] N 10 mg 6-30 TABLET BY ity of tablet 00:00: MOUTH EVERYDAY Medical AT BEDTIME [facility] 2021-0 Yes [id number] TAKE 1 [facility] N 10 mg 6-30 TABLET BY ity of tablet 00:00: MOUTH EVERYDAY Medical AT BEDTIME [facility] 2021-0 Yes [id number] TAKE 1 [facility] N 10 mg 6-30 TABLET BY ity of tablet 00:00: MOUTH EVERYDAY Medical AT BEDTIME Branch ATORVASTA 2021-0 Yes [id number] TAKE 1 [facility] N 10 mg 6-30 TABLET BY ity of tablet 00:00: MOUTH EVERYDAY Medical AT BEDTIME Branch ATORVASTA 2021-0 Yes [id number] TAKE 1 [facility] N 10 mg 6-30 TABLET BY ity of tablet 00:00: MOUTH EVERYDAY Medical AT BEDTIME [place] [facility]0 Yes [id number] TAKE 1 [facility] N 10 mg 6-30 TABLET BY ity of tablet 00:00: MOUTH 00 EVERYDAY Medical AT BEDTIME [facility] 2021-0 Yes [id number] TAKE 1 [facility] N 10 mg 6-30 TABLET BY ity of tablet 00:00: MOUTH EVERYDAY Medical AT BEDTIME [place] [facility] 2021-0 Yes [id number] TAKE 1 [facility] N 10 mg 6-30 TABLET BY ity of tablet 00:00: MOUTH EVERYDAY Medical AT BEDTIME [place] [facility] 2021-0 Yes [id number] TAKE 1 [facility] N 10 mg 6-30 TABLET BY ity of tablet 00:00: MOUTH EVERYDAY Medical AT BEDTIME [facility] 2021-0 Yes [id number] TAKE 1 [facility] N 10 mg 6-30 TABLET BY ity of tablet 00:00: MOUTH EVERYDAY Medical AT BEDTIME [place] [facility] 2021-0 Yes [id number] TAKE 1 [facility] N 10 mg 6-30 TABLET BY ity of tablet 00:00: MOUTH EVERYDAY Medical AT BEDTIME [facility] 2021-0 Yes [id number] TAKE 1 [facility] N 10 mg 6-30 TABLET BY ity of tablet 00:00: MOUTH EVERYDAY Medical AT BEDTIME [facility] 2021-0 Yes [id number] TAKE 1 [facility] N 10 mg 6-30 TABLET BY ity of tablet 00:00: MOUTH EVERYDAY Medical AT BEDTIME [place] [facility] 2021-0 Yes [id number] TAKE 1 [facility] N 10 mg 6-30 TABLET BY ity of tablet 00:00: MOUTH EVERYDAY Medical AT BEDTIME [place] [facility]-0 Yes [id number] TAKE 1 [facility] N 10 mg 6-30 TABLET BY ity of tablet 00:00: MOUTH EVERYDAY Medical AT BEDTIME [place] [facility] 2021-0 Yes [id number] TAKE 1 [facility] N 10 mg 6-30 TABLET BY ity of tablet 00:00: MOUTH EVERYDAY Medical AT BEDTIME [place] [facility] 2021-0 Yes [id number] TAKE 1 [facility] N 10 mg 6-30 TABLET BY ity of tablet 00:00: MOUTH EVERYDAY Medical AT BEDTIME [facility] 2021-0 Yes [id number] TAKE 1 [facility] N 10 mg 6-30 TABLET BY ity of tablet 00:00: MOUTH [place] 00 EVERYDAY Medical AT BEDTIME [facility] 2021-0 Yes [id number] TAKE 1 [facility] N 10 mg 6-30 TABLET BY ity of tablet 00:00: MOUTH [place] EVERYDAY Medical AT BEDTIME [facility] 2021-0 Yes [id number] TAKE 1 [facility] N 10 mg 6-30 TABLET BY ity of tablet 00:00: MOUTH [place] EVERYDAY Medical AT BEDTIME [facility] 0 Yes [id number] TAKE 1 [facility] N 10 mg 6-30 TABLET BY ity of tablet 00:00: MOUTH EVERYDAY Medical AT BEDTIME [facility] 0 Yes [id number] TAKE 1 [facility] N 10 mg 6-30 TABLET BY ity of tablet 00:00: MOUTH EVERYDAY Medical AT BEDTIME [facility] 0 Yes [id number] TAKE 1 [facility] N 10 mg 6-30 TABLET BY ity of tablet 00:00: MOUTH EVERYDAY Medical AT BEDTIME [facility] 2021-0 Yes [id number] TAKE 1 [facility] N 10 mg 6-30 TABLET BY ity of tablet 00:00: MOUTH EVERYDAY Medical AT BEDTIME [facility] 0 Yes [id number] TAKE 1 [facility] N 10 mg 6-30 TABLET BY ity of tablet 00:00: MOUTH EVERYDAY Medical AT BEDTIME [facility] 2021-0 Yes [id number] TAKE 1 [facility] N 10 mg 6-30 TABLET BY ity of tablet 00:00: MOUTH EVERYDAY Medical AT BEDTIME [facility] 2021-0 Yes [id number] TAKE 1 [facility] N 10 mg 6-30 TABLET BY ity of tablet 00:00: MOUTH EVERYDAY Medical AT BEDTIME [facility] 2021-0 Yes [id number] TAKE 1 [facility] N 10 mg 6-30 TABLET BY ity of tablet 00:00: MOUTH [place] EVERYDAY Medical AT BEDTIME [place] [facility] 2021-0 Yes [id number] TAKE 1 [facility] N 10 mg 6-30 TABLET BY ity of tablet 00:00: MOUTH EVERYDAY Medical AT BEDTIME [facility] 2022-0 Yes [id number] TAKE 1 [facility] N 10 mg 6-30 TABLET BY ity of tablet 00:00: MOUTH [place] 00 EVERYDAY Medical AT BEDTIME Branch ATORVASTATI 2021-0 Yes [id number] TAKE 1 [facility] N 10 mg 6-30 TABLET BY ity of tablet 00:00: MOUTH [place] 00 EVERYDAY Medical AT BEDTIME Branch ATORVASTATI 2021-0 Yes [id number] TAKE 1 [facility] N 10 mg 6-30 TABLET BY ity of tablet 00:00: MOUTH [place] 00 EVERYDAY Medical AT BEDTIME Branch ATORVASTATI 2021-0 Yes [id number] TAKE 1 [facility] N 10 mg 6-30 TABLET BY ity of tablet 00:00: MOUTH [place] 00 EVERYDAY Medical AT BEDTIME Branch OMEPRAZOLE 2021-0 Yes [id number] TAKE 1 [facility] 20 mg 6-27 CAPSULE BY ity of capsule 00:00: MOUTH [place] 00 EVERY DAY Medical Branch METOPROLOL 2021-0 Yes [id number] TAKE 1 U nivers SUCCINATE 6-27 TABLET BY ity o f XL 50 mg 24 00:00: MOUTH [place] hr tablet 00 EVERY DAY Medic al Branch OMEPRAZOLE 2021-0 Yes [id number] TAKE 1 [facility] 20 mg 6-27 CAPSULE BY ity of capsule 00:00: MOUTH [place] 00 EVERY DAY Medical Branch METOPROLOL 2021-0 Yes [id number] TAKE 1 U nivers SUCCINATE 6-27 TABLET BY ity o f XL 50 mg 24 00:00: MOUTH [place] hr tablet 00 EVERY DAY Medic al Branch OMEPRAZOLE 2021-0 Yes [id number] TAKE 1 [facility] 20 mg 6-27 CAPSULE BY ity of capsule 00:00: MOUTH [place] 00 EVERY DAY Medical Branch METOPROLOL 2021-0 Yes [id number] TAKE 1 U nivers SUCCINATE 6-27 TABLET BY ity o f XL 50 mg 24 00:00: MOUTH [place] hr tablet 00 EVERY DAY Medic al Branch OMEPRAZOLE 2021-0 Yes [id number] TAKE 1 [facility] 20 mg 6-27 CAPSULE BY ity of capsule 00:00: MOUTH [place] 00 EVERY DAY Medical Branch METOPROLOL 2021-0 Yes [id number] TAKE 1 U nivers SUCCINATE 6-27 TABLET BY ity o f XL 50 mg 24 00:00: MOUTH [place] hr tablet 00 EVERY DAY Medic al Branch OMEPRAZOLE 2021-0 Yes [id number] TAKE 1 [facility] 20 mg 6-27 CAPSULE BY ity of capsule 00:00: MOUTH [place] 00 EVERY DAY Medical Branch METOPROLOL 2021-0 Yes [id number] TAKE 1 U nivers SUCCINATE 6-27 TABLET BY ity o f XL 50 mg 24 00:00: MOUTH [place] hr tablet 00 EVERY DAY Medic al Branch OMEPRAZOLE 2021-0 Yes [id number] TAKE 1 [facility] 20 mg 6-27 CAPSULE BY ity of capsule 00:00: MOUTH [place] 00 EVERY DAY Medical Branch METOPROLOL 2021-0 Yes [id number] TAKE 1 U nivers SUCCINATE 6-27 TABLET BY ity o f XL 50 mg 24 00:00: MOUTH [place] hr tablet 00 EVERY DAY [facility] al Branch OMEPRAZOLE 2021-0 Yes [id number] TAKE 1 [facility] 20 mg 6-27 CAPSULE BY ity of capsule 00:00: MOUTH [place] 00 EVERY DAY Medical Branch METOPROLOL 2021-0 Yes [id number] TAKE 1 U nivers SUCCINATE 6-27 TABLET BY ity o f XL 50 mg 24 00:00: MOUTH [place] hr tablet 00 EVERY DAY Medic al Branch OMEPRAZOLE 2021-0 Yes [id number] TAKE 1 [facility] 20 mg 6-27 CAPSULE BY ity of capsule 00:00: MOUTH [place] 00 EVERY DAY Medical Branch METOPROLOL 2021-0 Yes [id number] TAKE 1 U nivers SUCCINATE 6-27 TABLET BY ity o f XL 50 mg 24 00:00: MOUTH [place] hr tablet 00 EVERY DAY Medic al Branch OMEPRAZOLE 2021-0 Yes [id number] TAKE 1 [facility] 20 mg 6-27 CAPSULE BY ity of capsule 00:00: MOUTH [place] 00 EVERY DAY Medical Branch METOPROLOL 2021-0 Yes [id number] TAKE 1 [facility] nivers SUCCINATE 6-27 TABLET BY ity o f XL 50 mg 24 00:00: MOUTH [place] hr tablet 00 EVERY DAY Medic al Branch OMEPRAZOLE 2021-0 Yes [id number] TAKE 1 [facility] 20 mg 6-27 CAPSULE BY ity of capsule 00:00: MOUTH [place] 00 EVERY DAY Medical Branch METOPROLOL 2021-0 Yes [id number] TAKE 1 U nivers SUCCINATE 6-27 TABLET BY ity o f XL 50 mg 24 00:00: MOUTH [place] hr tablet 00 EVERY DAY Medic al Branch OMEPRAZOLE 2021-0 Yes [id number] TAKE 1 [facility] 20 mg 6-27 CAPSULE BY ity of capsule 00:00: MOUTH [place] 00 EVERY DAY Medical Branch METOPROLOL 2021-0 Yes [id number] TAKE 1 [facility] nivers SUCCINATE 6-27 TABLET BY ity o f XL 50 mg 24 00:00: MOUTH [place] hr tablet 00 EVERY DAY Medic al Branch OMEPRAZOLE 2021-0 Yes [id number] TAKE 1 [facility] 20 mg 6-27 CAPSULE BY ity of capsule 00:00: MOUTH [place] 00 EVERY DAY Medical Branch METOPROLOL 0 Yes [id number] TAKE 1 [facility] nivers SUCCINATE 6-27 TABLET BY ity o f XL 50 mg 24 00:00: MOUTH [place] hr tablet 00 EVERY DAY Medic al Branch OMEPRAZOLE 0 Yes [id number] TAKE 1 [facility] 20 mg 6-27 CAPSULE BY ity of capsule 00:00: MOUTH [place] 00 EVERY DAY Medical Branch METOPROLOL 0 Yes [id number] TAKE 1 [facility] nivers SUCCINATE 6-27 TABLET BY ity o f XL 50 mg 24 00:00: MOUTH [place] hr tablet 00 EVERY DAY Medic al Branch OMEPRAZOLE 0 Yes [id number] TAKE 1 [facility] 20 mg 6-27 CAPSULE BY ity of capsule 00:00: MOUTH [place] 00 EVERY DAY Medical Branch METOPROLOL 0 Yes [id number] TAKE 1 [facility] nivers SUCCINATE 6-27 TABLET BY ity o f XL 50 mg 24 00:00: MOUTH [place] hr tablet 00 EVERY DAY Medic al Branch OMEPRAZOLE 0 Yes [id number] TAKE 1 [facility] 20 mg 6-27 CAPSULE BY ity of capsule 00:00: MOUTH [place] 00 EVERY DAY Medical Branch METOPROLOL 0 Yes [id number] TAKE 1 [facility] nivers SUCCINATE 6-27 TABLET BY ity o f XL 50 mg 24 00:00: MOUTH [place] hr tablet 00 EVERY DAY Medic al Branch OMEPRAZOLE 0 Yes [id number] TAKE 1 [facility] 20 mg 6-27 CAPSULE BY ity of capsule 00:00: MOUTH [place] 00 EVERY DAY Medical Branch METOPROLOL 0 Yes [id number] TAKE 1 [facility] nivers SUCCINATE 6-27 TABLET BY ity o f XL 50 mg 24 00:00: MOUTH [place] hr tablet 00 EVERY DAY Medic al Branch OMEPRAZOLE 0 Yes [id number] TAKE 1 [facility] 20 mg 6-27 CAPSULE BY ity of capsule 00:00: MOUTH [place] 00 EVERY DAY Medical Branch METOPROLOL 0 Yes [id number] TAKE 1 [facility] nivers SUCCINATE 6-27 TABLET BY ity o f XL 50 mg 24 00:00: MOUTH [place] hr tablet 00 EVERY DAY Medic al [facility] OMEPRAZOLE 2021-0 Yes [id number] TAKE 1 [facility] 20 mg 6-27 CAPSULE BY ity of capsule 00:00: MOUTH [place] 00 EVERY DAY Medical Branch METOPROLOL 2021-0 Yes [id number] TAKE 1 [facility] nivers SUCCINATE 6-27 TABLET BY ity o f XL 50 mg 24 00:00: MOUTH [place] hr tablet 00 EVERY DAY Medic al [facility] OMEPRAZOLE 2021-0 Yes [id number] TAKE 1 [facility] 20 mg 6-27 CAPSULE BY ity of capsule 00:00: MOUTH [place] 00 EVERY DAY Medical [facility] METOPROLOL 2021-0 Yes [id number] TAKE 1 [facility] nivers SUCCINATE 6-27 TABLET BY ity o f XL 50 mg 24 00:00: MOUTH [place] hr tablet 00 EVERY DAY [facility] al [facility] OMEPRAZOLE 2021-0 Yes [id number] TAKE 1 [facility] 20 mg 6-27 CAPSULE BY ity of capsule 00:00: MOUTH [place] 00 EVERY DAY Medical [facility] METOPROLOL 2021-0 Yes [id number] TAKE 1 [facility] nivers SUCCINATE 6-27 TABLET BY ity o f XL 50 mg 24 00:00: MOUTH [place] hr tablet 00 EVERY DAY Medic al [facility] OMEPRAZOLE 2021-0 Yes [id number] TAKE 1 [facility] 20 mg 6-27 CAPSULE BY ity of capsule 00:00: MOUTH [place] 00 EVERY DAY Medical [facility] METOPROLOL 2021-0 Yes [id number] TAKE 1 [facility] nivers SUCCINATE 6-27 TABLET BY ity o f XL 50 mg 24 00:00: MOUTH [place] hr tablet 00 EVERY DAY [facility] OMEPRAZOLE 2021-0 Yes [id number] TAKE 1 [facility] 20 mg 6-27 CAPSULE BY ity of capsule 00:00: MOUTH [place] 00 EVERY DAY [facility] METOPROLOL 2021-0 Yes [id number] TAKE 1 [facility] nivers SUCCINATE 6-27 TABLET BY ity o f XL 50 mg 24 00:00: MOUTH [place] hr tablet 00 EVERY DAY [facility] al [facility] OMEPRAZOLE 2021-0 Yes [id number] TAKE 1 [facility] 20 mg 6-27 CAPSULE BY ity of capsule 00:00: MOUTH [place] 00 EVERY DAY Medical Branch METOPROLOL 2021-0 Yes [id number] TAKE 1 [facility] nivers SUCCINATE 6-27 TABLET BY ity o f XL 50 mg 24 00:00: MOUTH [place] hr tablet 00 EVERY DAY [facility] al [facility] OMEPRAZOLE 2021-0 Yes [id number] TAKE 1 [facility] 20 mg 6-27 CAPSULE BY ity of capsule 00:00: MOUTH [place] 00 EVERY DAY [facility] METOPROLOL 2021-0 Yes [id number] TAKE 1 [facility] nivers SUCCINATE 6-27 TABLET BY ity o f XL 50 mg 24 00:00: MOUTH [place] hr tablet 00 EVERY DAY [facility] al [facility] OMEPRAZOLE 2021-0 Yes [id number] TAKE 1 [facility] 20 mg 6-27 CAPSULE BY ity of capsule 00:00: MOUTH [place] 00 EVERY DAY Medical [facility] METOPROLOL 2021-0 Yes [id number] TAKE 1 [facility] nivers SUCCINATE 6-27 TABLET BY ity o f XL 50 mg 24 00:00: MOUTH [place] hr tablet 00 EVERY DAY [facility] al [facility] OMEPRAZOLE 2021-0 Yes [id number] TAKE 1 [facility] 20 mg 6-27 CAPSULE BY ity of capsule 00:00: MOUTH [place] 00 EVERY DAY Medical [facility] METOPROLOL 2021-0 Yes [id number] TAKE 1 [facility] nivers SUCCINATE 6-27 TABLET BY ity o f XL 50 mg 24 00:00: MOUTH [place] hr tablet 00 EVERY DAY [facility] al [facility] OMEPRAZOLE 2021-0 Yes [id number] TAKE 1 [facility] 20 mg 6-27 CAPSULE BY ity of capsule 00:00: MOUTH [place] 00 EVERY DAY Medical Branch METOPROLOL 2021-0 Yes [id number] TAKE 1 [facility] nivers SUCCINATE 6-27 TABLET BY ity o f XL 50 mg 24 00:00: MOUTH [place] hr tablet 00 EVERY DAY [facility] OMEPRAZOLE 2021-0 Yes [id number] TAKE 1 [facility] 20 mg 6-27 CAPSULE BY ity of capsule 00:00: MOUTH [place] 00 EVERY DAY [facility] METOPROLOL 2021-0 Yes [id number] TAKE 1 [facility] nivers SUCCINATE 6-27 TABLET BY ity o f XL 50 mg 24 00:00: MOUTH [place] hr tablet 00 EVERY DAY [facility] OMEPRAZOLE 2021-0 Yes [id number] TAKE 1 [facility] 20 mg 6-27 CAPSULE BY ity of capsule 00:00: MOUTH [place] 00 EVERY DAY [facility] METOPROLOL 2021-0 Yes [id number] TAKE 1 [facility] nivers SUCCINATE 6-27 TABLET BY ity o f XL 50 mg 24 00:00: MOUTH [place] hr tablet 00 EVERY DAY [facility] al [facility] OMEPRAZOLE 2021-0 Yes [id number] TAKE 1 [facility] 20 mg 6-27 CAPSULE BY ity of capsule 00:00: MOUTH [place] 00 EVERY DAY [facility] METOPROLOL 2021-0 Yes [id number] TAKE 1 [facility] nivers SUCCINATE 6-27 TABLET BY ity o f XL 50 mg 24 00:00: MOUTH [place] hr tablet 00 EVERY DAY [facility] al [facility] OMEPRAZOLE 2021-0 Yes [id number] TAKE 1 [facility] 20 mg 6-27 CAPSULE BY ity of capsule 00:00: MOUTH [place] 00 EVERY DAY [facility] Branch METOPROLOL 2021-0 Yes [id number] TAKE 1 [facility] nivers SUCCINATE 6-27 TABLET BY ity o f XL 50 mg 24 00:00: MOUTH [place] hr tablet 00 EVERY DAY [facility] al [facility] OMEPRAZOLE 2021-0 Yes [id number] TAKE 1 [facility] 20 mg 6-27 CAPSULE BY ity of capsule 00:00: MOUTH [place] 00 EVERY DAY [facility] METOPROLOL 2021-0 Yes [id number] TAKE 1 [facility] nivers SUCCINATE 6-27 TABLET BY ity o f XL 50 mg 24 00:00: MOUTH [place] hr tablet 00 EVERY DAY [facility] OMEPRAZOLE 2021-0 Yes [id number] TAKE 1 [facility] 20 mg 6-27 CAPSULE BY ity of capsule 00:00: MOUTH [place] 00 EVERY DAY [facility] Branch METOPROLOL 2021-0 Yes [id number] TAKE 1 [facility] nivers SUCCINATE 6-27 TABLET BY ity o f XL 50 mg 24 00:00: MOUTH [place] hr tablet 00 EVERY DAY [facility] al [facility] OMEPRAZOLE 2021-0 Yes [id number] TAKE 1 [facility] 20 mg 6-27 CAPSULE BY ity of capsule 00:00: MOUTH [place] 00 EVERY DAY [facility] Branch METOPROLOL 2021-0 Yes [id number] TAKE 1 [facility] nivers SUCCINATE 6-27 TABLET BY ity o f XL 50 mg 24 00:00: MOUTH [place] hr tablet 00 EVERY DAY [facility] al [facility] OMEPRAZOLE 2021-0 Yes [id number] TAKE 1 [facility] 20 mg 6-27 CAPSULE BY ity of capsule 00:00: MOUTH [place] 00 EVERY DAY Medical Branch METOPROLOL 2021-0 Yes [id number] TAKE 1 [facility] nivers SUCCINATE 6-27 TABLET BY ity o f XL 50 mg 24 00:00: MOUTH [place] hr tablet 00 EVERY DAY [facility] al [facility] OMEPRAZOLE 2021-0 Yes [id number] TAKE 1 [facility] 20 mg 6-27 CAPSULE BY ity of capsule 00:00: MOUTH [place] 00 EVERY DAY [facility] Branch METOPROLOL 2021-0 Yes [id number] TAKE 1 U nivers SUCCINATE 6-27 TABLET BY ity o f XL 50 mg 24 00:00: MOUTH [place] hr tablet 00 EVERY DAY Medic al Branch OMEPRAZOLE 0 Yes [id number] TAKE 1 [facility] 20 mg 6-27 CAPSULE BY ity of capsule 00:00: MOUTH [place] 00 EVERY DAY Medical Branch METOPROLOL 0 Yes [id number] TAKE 1 U nivers SUCCINATE 6-27 TABLET BY ity o f XL 50 mg 24 00:00: MOUTH [place] hr tablet 00 EVERY DAY Medic al [facility] OMEPRAZOLE 0 Yes [id number] TAKE 1 [facility] 20 mg 6-27 CAPSULE BY ity of capsule 00:00: MOUTH [place] 00 EVERY DAY Medical Branch METOPROLOL 0 Yes [id number] TAKE 1 U nivers SUCCINATE 6-27 TABLET BY ity o f XL 50 mg 24 00:00: MOUTH [place] hr tablet 00 EVERY DAY Medic al [facility] OMEPRAZOLE 0 Yes [id number] TAKE 1 [facility] 20 mg 6-27 CAPSULE BY ity of capsule 00:00: MOUTH [place] 00 EVERY DAY Medical Branch METOPROLOL 0 Yes [id number] TAKE 1 U nivers SUCCINATE 6-27 TABLET BY ity o f XL 50 mg 24 00:00: MOUTH [place] hr tablet 00 EVERY DAY Medic al [facility] OMEPRAZOLE 0 Yes [id number] TAKE 1 [facility] 20 mg 6-27 CAPSULE BY ity of capsule 00:00: MOUTH [place] 00 EVERY DAY Medical Branch METOPROLOL 0 Yes [id number] TAKE 1 U nivers SUCCINATE 6-27 TABLET BY ity o f XL 50 mg 24 00:00: MOUTH [place] hr tablet 00 EVERY DAY Medic al Branch OMEPRAZOLE 0 Yes [id number] TAKE 1 [facility] 20 mg 6-27 CAPSULE BY ity of capsule 00:00: MOUTH [place] 00 EVERY DAY Medical Branch METOPROLOL 0 Yes [id number] TAKE 1 U nivers SUCCINATE 6-27 TABLET BY ity o f XL 50 mg 24 00:00: MOUTH [place] hr tablet 00 EVERY DAY Medic al Branch METOPROLOL 0 Yes [id number] TAKE 1 U nivers SUCCINATE 6-27 TABLET BY ity o f XL 50 mg 24 00:00: MOUTH [place] hr tablet 00 EVERY DAY Medic al Branch METOPROLOL 0 Yes [id number] TAKE 1 U nivers SUCCINATE 6-27 TABLET BY ity o f XL 50 mg 24 00:00: MOUTH [place] hr tablet 00 EVERY DAY Medic al Branch METOPROLOL Yes [id number] TAKE 1 U nivers SUCCINATE 6-27 TABLET BY ity o f XL 50 mg 24 00:00: MOUTH [place] hr tablet 00 EVERY DAY Medic al Branch METOPROLOL Yes [id number] TAKE 1 U nivers SUCCINATE 6-27 TABLET BY ity o f XL 50 mg 24 00:00: MOUTH [place] hr tablet 00 EVERY DAY Medic al Branch METOPROLOL Yes [id number] TAKE 1 U nivers SUCCINATE 6-27 TABLET BY ity o f XL 50 mg 24 00:00: MOUTH [place] hr tablet 00 EVERY DAY Medic al Branch METOPROLOL Yes [id number] TAKE 1 U nivers SUCCINATE 6-27 TABLET BY ity o f XL 50 mg 24 00:00: MOUTH [place] hr tablet 00 EVERY DAY Medic al Branch METOPROLOL Yes [id number] TAKE 1 U nivers SUCCINATE 6-27 TABLET BY ity o f XL 50 mg 24 00:00: MOUTH [place] hr tablet 00 EVERY DAY Medic al Branch METOPROLOL Yes [id number] TAKE 1 U nivers SUCCINATE 6-27 TABLET BY ity o f XL 50 mg 24 00:00: MOUTH [place] hr tablet 00 EVERY DAY Medic al Branch METOPROLOL Yes [id number] TAKE 1 U nivers SUCCINATE 6-27 TABLET BY ity o f XL 50 mg 24 00:00: MOUTH [place] hr tablet 00 EVERY DAY Medic al Branch OMEPRAZOLE 2022- No [id number] TAKE 1 [facility] 20 mg 6-27 05-10 CAPSULE BY ity of capsule 00:00: 00:00 MOUTH [place] 00 :00 EVERY DAY Medical Branch terbinafine 2021- No [id number] Apply to [facility] HCL 1 % 6-14 05-09 area(s) 2 ity of cream 00:00: 00:00 (two) [place] 00 :00 times Medical daily. Branch escitalopra Yes [id number] 20mg Take 1 [facility] m oxalate 6-08 tablet by ity o f 20 mg 00:00: mouth [place] tablet 00 daily. Medical Branch escitalopra Yes [id number] 20mg Take 1 [facility] m oxalate 6-08 tablet by ity o f 20 mg 00:00: mouth [place] tablet 00 daily. [facility] Branch escitalopra Yes [id number] 20mg Take 1 [facility] m oxalate 6-08 tablet by ity o f 20 mg 00:00: mouth [place] tablet 00 daily. [facility] escitalopra Yes [id number] 20mg Take 1 [facility] m oxalate 6-08 tablet by ity o f 20 mg 00:00: mouth [place] tablet 00 daily. [facility] Branch escitalopra Yes [id number] 20mg Take 1 [facility] m oxalate 6-08 tablet by ity o f 20 mg 00:00: mouth [place] tablet 00 daily. [facility] Branch escitalopra Yes [id number] 20mg Take 1 [facility] m oxalate 6-08 tablet by ity o f 20 mg 00:00: mouth [place] tablet 00 daily. [facility] escitalopra Yes [id number] 20mg Take 1 [facility] m oxalate 6-08 tablet by ity o f 20 mg 00:00: mouth [place] tablet 00 daily. [facility] escitalopra Yes [id number] 20mg Take 1 [facility] m oxalate 6-08 tablet by ity o f 20 mg 00:00: mouth [place] tablet 00 daily. [facility] Branch escitalopra Yes [id number] 20mg Take 1 [facility] m oxalate 6-08 tablet by ity o f 20 mg 00:00: mouth [place] tablet 00 daily. [facility] escitalopra Yes [id number] 20mg Take 1 [facility] m oxalate 6-08 tablet by ity o f 20 mg 00:00: mouth [place] tablet 00 daily. [facility] Branch escitalopra Yes [id number] 20mg Take 1 [facility] m oxalate 6-08 tablet by ity o f 20 mg 00:00: mouth [place] tablet 00 daily. [facility] Branch escitalopra Yes [id number] 20mg Take 1 [facility] m oxalate 6-08 tablet by ity o f 20 mg 00:00: mouth [place] tablet 00 daily. [facility] escitalopra Yes [id number] 20mg Take 1 [facility] m oxalate 6-08 tablet by ity o f 20 mg 00:00: mouth [place] tablet 00 daily. [facility] escitalopra Yes [id number] 20mg Take 1 [facility] m oxalate 6-08 tablet by ity o f 20 mg 00:00: mouth [place] tablet 00 daily. Medical Branch escitalopra 2021- No [id number] 20mg Take 1 [facility] m oxalate 6-08 12-28 tablet by ity of 20 mg 00:00: 00:00 mouth [place] tablet 00 :00 daily. Medical Branch zolpidem 2021- No [id number] 10mg Take 1 U nivers (AMBIEN) 10 4-18 08-29 tablet by it y of mg tablet 00:00: 00:00 mouth at [place] 00 :00 bedtime as Medical needed for Branch Insomnia. nystatin 2021- No [id number] Take 5 mL [facility] 100,000 24 -29 by mouth 4 ity o f unit/mL 00:00: 00:00 (four) [place] suspension 00 :00 times Medical daily. Branch fluticasone 2020-09 Yes [id number] 1{puff} Inhale 1 [facility] furoate-anu 2-30 Puff ity of anteroL 00:00: daily. [place] ([place] [address] Medical ELLIP) Branch 100-25 mcg/dose DsDv albuterol 2020-09 Yes [id number] 2.5mg Inhale 3 [facility] 2.5 mg /3 2-30 mL every 4 ity of mL (0.083 00:00: (four) [place] %) 00 hours as Medical nebulizer needed for Bran ch solution Wheezing or Shortness of Breath. albuterol 2020-09 Yes [id number] 2{puff} Inhale 2 [facility] 90 2-30 Puffs ity of mcg/actuati 00:00: every 6 [place] on inhaler 00 (six) Medical hours as Branch needed for Wheezing or Shortness of Breath. fluticasone 2020-09 Yes [id number] 1{puff} Inhale 1 [facility] furoate-anu 2-30 Puff ity of anteroL 00:00: daily. [place] ([facility] 00 Medical ELLIP[place]) Branch 100-25 mcg/dose DsDv albuterol 2020-09 Yes [id number] 2.5mg Inhale 3 [facility] 2.5 mg /3 2-30 mL every 4 ity of mL (0.083 00:00: (four) [place] %) 00 hours as Medical nebulizer needed for Bran ch solution Wheezing or Shortness of Breath. albuterol 2020-09 Yes [id number] 2{puff} Inhale 2 [facility] 90 2-30 Puffs ity of mcg/actuati 00:00: every 6 [place] on inhaler 00 (six) Medical hours as Branch needed for Wheezing or Shortness of Breath. fluticasone 2020-09 Yes [id number] 1{puff} Inhale 1 [facility] furoate-anu 2-30 Puff ity of anteroL 00:00: daily. [place] ([address]) Branch 100-25 mcg/dose DsDv albuterol 2020-09 Yes [id number] 2.5mg Inhale 3 [facility] 2.5 mg /3 2-30 mL every 4 ity of mL (0.083 00:00: (four) [place] %) 00 hours as Medical nebulizer needed for Bran ch solution Wheezing or Shortness of Breath. albuterol 2020-09 Yes [id number] 2{puff} Inhale 2 [facility] 90 2-30 Puffs ity of mcg/actuati 00:00: every 6 [place] on inhaler 00 (six) Medical hours as Branch needed for Wheezing or Shortness of Breath. fluticasone 2020-09 Yes [id number] 1{puff} Inhale 1 [facility] furoate-anu 2-30 Puff ity of anteroL 00:00: daily. [place] ([address]) Branch 100-25 mcg/dose DsDv albuterol 2020-09 Yes [id number] 2.5mg Inhale 3 [facility] 2.5 mg /3 2-30 mL every 4 ity of mL (0.083 00:00: (four) [place] %) 00 hours as Medical nebulizer needed for Bran ch solution Wheezing or Shortness of Breath. albuterol 2020-09 Yes [id number] 2{puff} Inhale 2 [facility] 90 2-30 Puffs ity of mcg/actuati 00:00: every 6 [place] on inhaler 00 (six) Medical hours as Branch needed for Wheezing or Shortness of Breath. fluticasone 2020-09 Yes [id number] 1{puff} Inhale 1 [facility] furoate-anu 2-30 Puff ity of anteroL 00:00: daily. [address]) Branch 100-25 mcg/dose DsDv albuterol 2020-09 Yes [id number] 2.5mg Inhale 3 Univers 2.5 mg /3 2-30 mL every 4 ity of mL (0.083 00:00: (four) [place] %) 00 hours as Medical nebulizer needed for Bran ch solution Wheezing or Shortness of Breath. albuterol 2020-09 Yes [id number] 2{puff} Inhale 2 [facility] 90 2-30 Puffs ity of mcg/actuati 00:00: every 6 [place] on inhaler 00 (six) Medical hours as Branch needed for Wheezing or Shortness of Breath. fluticasone 2020-09 Yes [id number] 1{puff} Inhale 1 [facility] furoate-anu 2-30 Puff ity of anteroL 00:00: daily. [place] ([facility]) Branch 100-25 mcg/dose DsDv albuterol 2020-09 Yes [id number] 2.5mg Inhale 3 Univers 2.5 mg /3 2-30 mL every 4 ity of mL (0.083 00:00: (four) [place] %) 00 hours as Medical nebulizer needed for Bran ch solution Wheezing or Shortness of Breath. albuterol 2020-09 Yes [id number] 2{puff} Inhale 2 [facility] 90 2-30 Puffs ity of mcg/actuati 00:00: every 6 [place] on inhaler 00 (six) Medical hours as Branch needed for Wheezing or Shortness of Breath. fluticasone 2020-09 Yes [id number] 1{puff} Inhale 1 [facility] furoate-anu 2-30 Puff ity of anteroL 00:00: daily. [place] ([facility] Medical ELLIP) Branch 100-25 mcg/dose DsDv albuterol 2020-09 Yes [id number] 2.5mg Inhale 3 Univers 2.5 mg /3 2-30 mL every 4 ity of mL (0.083 00:00: (four) [place] %) 00 hours as Medical nebulizer needed for Bran ch solution Wheezing or Shortness of Breath. albuterol 2020-09 Yes [id number] 2{puff} Inhale 2 [facility] 90 2-30 Puffs ity of mcg/actuati 00:00: every 6 [place] on inhaler 00 (six) Medical hours as Branch needed for Wheezing or Shortness of Breath. fluticasone 2020-09 Yes [id number] 1{puff} Inhale 1 [facility] furoate-anu 2-30 Puff ity of anteroL 00:00: daily. [place] ([address]) Branch 100-25 mcg/dose DsDv albuterol 2020-09 Yes [id number] 2.5mg Inhale 3 Univers 2.5 mg /3 2-30 mL every 4 ity of mL (0.083 00:00: (four) [place] %) 00 hours as Medical nebulizer needed for Bran ch solution Wheezing or Shortness of Breath. albuterol 2020-09 Yes [id number] 2{puff} Inhale 2 [facility] 90 2-30 Puffs ity of mcg/actuati 00:00: every 6 [place] on inhaler 00 (six) Medical hours as Branch needed for Wheezing or Shortness of Breath. fluticasone 2020-09 Yes [id number] 1{puff} Inhale 1 [facility] furoate-anu 2-30 Puff ity of anteroL 00:00: daily. [place] ([address]) Branch 100-25 mcg/dose DsDv albuterol 2020-09 Yes [id number] 2.5mg Inhale 3 Univers 2.5 mg /3 2-30 mL every 4 ity of mL (0.083 00:00: (four) [place] %) 00 hours as Medical nebulizer needed for Bran ch solution Wheezing or Shortness of Breath. albuterol 2020-09 Yes [id number] 2{puff} Inhale 2 [facility] 90 2-30 Puffs ity of mcg/actuati 00:00: every 6 [place] on inhaler 00 (six) Medical hours as Branch needed for Wheezing or Shortness of Breath. fluticasone 2020-09 Yes [id number] 1{puff} Inhale 1 [facility] furoate-anu 2-30 Puff ity of anteroL 00:00: daily. [place] ([address]) Branch 100-25 mcg/dose DsDv albuterol 2020-09 Yes [id number] 2.5mg Inhale 3 Univers 2.5 mg /3 2-30 mL every 4 ity of mL (0.083 00:00: (four) [place] %) 00 hours as Medical nebulizer needed for Bran ch solution Wheezing or Shortness of Breath. albuterol 2020-09 Yes [id number] 2{puff} Inhale 2 [facility] 90 2-30 Puffs ity of mcg/actuati 00:00: every 6 [place] on inhaler 00 (six) Medical hours as Branch needed for Wheezing or Shortness of Breath. fluticasone 2020-09 Yes [id number] 1{puff} Inhale 1 [facility] furoate-anu 2-30 Puff ity of anteroL 00:00: daily. [place] ([address]) Branch 100-25 mcg/dose DsDv albuterol 2020-09 Yes [id number] 2.5mg Inhale 3 Univers 2.5 mg /3 2-30 mL every 4 ity of mL (0.083 00:00: (four) [place] %) 00 hours as Medical nebulizer needed for Bran ch solution Wheezing or Shortness of Breath. albuterol 2020-09 Yes [id number] 2{puff} Inhale 2 Univers 90 2-30 Puffs ity of mcg/actuati 00:00: every 6 [place] on inhaler 00 (six) Medical hours as Branch needed for Wheezing or Shortness of Breath. fluticasone 2020-09 Yes [id number] 1{puff} Inhale 1 [facility] furoate-anu 2-30 Puff ity of anteroL 00:00: daily. [place] ([address]) Branch 100-25 mcg/dose DsDv albuterol 2020-09 Yes [id number] 2.5mg Inhale 3 Univers 2.5 mg /3 2-30 mL every 4 ity of mL (0.083 00:00: (four) [place] %) 00 hours as Medical nebulizer needed for Bran ch solution Wheezing or Shortness of Breath. albuterol 2020-09 Yes [id number] 2{puff} Inhale 2 Univers 90 2-30 Puffs ity of mcg/actuati 00:00: every 6 [place] on inhaler 00 (six) Medical hours as Branch needed for Wheezing or Shortness of Breath. fluticasone 2020-09 Yes [id number] 1{puff} Inhale 1 [facility] furoate-anu 2-30 Puff ity of anteroL 00:00: daily. [place] ([address]) Branch 100-25 mcg/dose DsDv albuterol 2020-09 Yes [id number] 2.5mg Inhale 3 Univers 2.5 mg /3 2-30 mL every 4 ity of mL (0.083 00:00: (four) [place] %) 00 hours as Medical nebulizer needed for Bran ch solution Wheezing or Shortness of Breath. albuterol 2020-09 Yes [id number] 2{puff} Inhale 2 Univers 90 2-30 Puffs ity of mcg/actuati 00:00: every 6 [place] on inhaler 00 (six) Medical hours as Branch needed for Wheezing or Shortness of Breath. fluticasone 2020-09 Yes [id number] 1{puff} Inhale 1 [facility] furoate-anu 2-30 Puff ity of anteroL 00:00: daily. [place] ([address]) Branch 100-25 mcg/dose DsDv albuterol 2020-09 Yes [id number] 2.5mg Inhale 3 Univers 2.5 mg /3 2-30 mL every 4 ity of mL (0.083 00:00: (four) [place] %) 00 hours as Medical nebulizer needed for Bran ch solution Wheezing or Shortness of Breath. albuterol 2020-09 Yes [id number] 2{puff} Inhale 2 Univers 90 2-30 Puffs ity of mcg/actuati 00:00: every 6 [place] on inhaler 00 (six) Medical hours as Branch needed for Wheezing or Shortness of Breath. fluticasone 2020-09 Yes [id number] 1{puff} Inhale 1 [facility] furoate-anu 2-30 Puff ity of anteroL 00:00: daily. [place] ([address]) Branch 100-25 mcg/dose DsDv albuterol 2020-09 Yes [id number] 2.5mg Inhale 3 Univers 2.5 mg /3 2-30 mL every 4 ity of mL (0.083 00:00: (four) [place] %) 00 hours as Medical nebulizer needed for Bran ch solution Wheezing or Shortness of Breath. albuterol 2020-09 Yes [id number] 2{puff} Inhale 2 Univers 90 2-30 Puffs ity of mcg/actuati 00:00: every 6 [place] on inhaler 00 (six) Medical hours as Branch needed for Wheezing or Shortness of Breath. fluticasone 2020-09 Yes [id number] 1{puff} Inhale 1 [facility] furoate-anu 2-30 Puff ity of anteroL 00:00: daily. [place] ([address]) Branch 100-25 mcg/dose DsDv albuterol 2020-09 Yes [id number] 2.5mg Inhale 3 Univers 2.5 mg /3 2-30 mL every 4 ity of mL (0.083 00:00: (four) [place] %) 00 hours as Medical nebulizer needed for Bran ch solution Wheezing or Shortness of Breath. albuterol 2020-09 Yes [id number] 2{puff} Inhale 2 Univers 90 2-30 Puffs ity of mcg/actuati 00:00: every 6 [place] on inhaler 00 (six) Medical hours as Branch needed for Wheezing or Shortness of Breath. fluticasone 2020-09 Yes [id number] 1{puff} Inhale 1 [facility] furoate-anu 2-30 Puff ity of anteroL 00:00: daily. [place] ([address]) Branch 100-25 mcg/dose DsDv albuterol 2020-09 Yes [id number] 2.5mg Inhale 3 [facility] 2.5 mg /3 2-30 mL every 4 ity of mL (0.083 00:00: (four) [place] %) 00 hours as Medical nebulizer needed for Bran ch solution Wheezing or Shortness of Breath. albuterol 2020-09 Yes [id number] 2{puff} Inhale 2 [facility] 90 2-30 Puffs ity of mcg/actuati 00:00: every 6 [place] as on inhaler 00 (six) Medical hours as Branch needed for Wheezing or Shortness of Breath. fluticasone 2020-09 Yes [id number] 1{puff} Inhale 1 [facility] furoate-anu 2-30 Puff ity of anteroL 00:00: daily. [place] ([address]) Branch 100-25 mcg/dose DsDv albuterol 2020-09 Yes [id number] 2.5mg Inhale 3 [facility] 2.5 mg /3 2-30 mL every 4 ity of mL (0.083 00:00: (four) [place] %) 00 hours as Medical nebulizer needed for Bran ch solution Wheezing or Shortness of Breath. albuterol 2020-09 Yes [id number] 2{puff} Inhale 2 [facility] 90 2-30 Puffs ity of mcg/actuati 00:00: every 6 [place] as on inhaler 00 (six) Medical hours as Branch needed for Wheezing or Shortness of Breath. fluticasone 2020-09 Yes [id number] 1{puff} Inhale 1 [facility] furoate-anu 2-30 Puff ity of anteroL 00:00: daily. [place] ([address]) Branch 100-25 mcg/dose DsDv albuterol 2020-09 Yes [id number] 2.5mg Inhale 3 [facility] 2.5 mg /3 2-30 mL every 4 ity of mL (0.083 00:00: (four) [place] %) 00 hours as Medical nebulizer needed for Bran ch solution Wheezing or Shortness of Breath. albuterol 2020-09 Yes [id number] 2{puff} Inhale 2 [facility] 90 2-30 Puffs ity of mcg/actuati 00:00: every 6 [place] as on inhaler 00 (six) Medical hours as Branch needed for Wheezing or Shortness of Breath. fluticasone 2020-09 Yes [id number] 1{puff} Inhale 1 [facility] furoate-anu 2-30 Puff ity of anteroL 00:00: daily. [place] ([address]) Branch 100-25 mcg/dose DsDv albuterol 2020-09 Yes [id number] 2.5mg Inhale 3 [facility] 2.5 mg /3 2-30 mL every 4 ity of mL (0.083 00:00: (four) [place] %) 00 hours as Medical nebulizer needed for Bran ch solution Wheezing or Shortness of Breath. albuterol 2020-09 Yes [id number] 2{puff} Inhale 2 [facility] 90 2-30 Puffs ity of mcg/actuati 00:00: every 6 [place] as on inhaler 00 (six) Medical hours as Branch needed for Wheezing or Shortness of Breath. fluticasone 2020-09 Yes [id number] 1{puff} Inhale 1 [facility] furoate-anu 2-30 Puff ity of anteroL 00:00: daily. [place] ([address]) Branch 100-25 mcg/dose DsDv albuterol 2020-09 Yes [id number] 2.5mg Inhale 3 [facility] 2.5 mg /3 2-30 mL every 4 ity of mL (0.083 00:00: (four) [place] %) 00 hours as Medical nebulizer needed for Bran ch solution Wheezing or Shortness of Breath. albuterol 2020-09 Yes [id number] 2{puff} Inhale 2 [facility] 90 2-30 Puffs ity of mcg/actuati 00:00: every 6 [place] as on inhaler 00 (six) Medical hours as Branch needed for Wheezing or Shortness of Breath. fluticasone 2020-09 Yes [id number] 1{puff} Inhale 1 [facility] furoate-anu 2-30 Puff ity of anteroL 00:00: daily. [address]) Branch 100-25 mcg/dose DsDv albuterol 2020-09 Yes [id number] 2.5mg Inhale 3 [facility] 2.5 mg /3 2-30 mL every 4 ity of mL (0.083 00:00: (four) [place] %) 00 hours as Medical nebulizer needed for Bran ch solution Wheezing or Shortness of Breath. albuterol 2020-09 Yes [id number] 2{puff} Inhale 2 [facility] 90 2-30 Puffs ity of mcg/actuati 00:00: every 6 [place] as on inhaler 00 (six) Medical hours as Branch needed for Wheezing or Shortness of Breath. fluticasone 2020-09 Yes [id number] 1{puff} Inhale 1 [facility] furoate-anu 2-30 Puff ity of anteroL 00:00: daily. [place] ([address]) Branch 100-25 mcg/dose DsDv albuterol 2020-09 Yes [id number] 2.5mg Inhale 3 [facility] 2.5 mg /3 2-30 mL every 4 ity of mL (0.083 00:00: (four) [place] %) 00 hours as Medical nebulizer needed for Bran ch solution Wheezing or Shortness of Breath. albuterol 2020-09 Yes [id number] 2{puff} Inhale 2 [facility] 90 2-30 Puffs ity of mcg/actuati 00:00: every 6 [place] as on inhaler 00 (six) Medical hours as Branch needed for Wheezing or Shortness of Breath. fluticasone 2020-09 Yes [id number] 1{puff} Inhale 1 [facility] furoate-anu 2-30 Puff ity of anteroL 00:00: daily. [place] ([address]) Branch 100-25 mcg/dose DsDv albuterol 2020-09 Yes [id number] 2.5mg Inhale 3 [facility] 2.5 mg /3 2-30 mL every 4 ity of mL (0.083 00:00: (four) [place] %) 00 hours as Medical nebulizer needed for Bran ch solution Wheezing or Shortness of Breath. albuterol 2020-09 Yes [id number] 2{puff} Inhale 2 [facility] 90 2-30 Puffs ity of mcg/actuati 00:00: every 6 [place] as on inhaler 00 (six) Medical hours as Branch needed for Wheezing or Shortness of Breath. fluticasone 2020-09 Yes [id number] 1{puff} Inhale 1 [facility] furoate-anu 2-30 Puff ity of anteroL 00:00: daily. [place] ([address]) Branch 100-25 mcg/dose DsDv albuterol 2020-09 Yes [id number] 2.5mg Inhale 3 [facility] 2.5 mg /3 2-30 mL every 4 ity of mL (0.083 00:00: (four) [place] %) 00 hours as Medical nebulizer needed for Bran ch solution Wheezing or Shortness of Breath. albuterol 2020-09 Yes [id number] 2{puff} Inhale 2 [facility] 90 2-30 Puffs ity of mcg/actuati 00:00: every 6 [place] as on inhaler 00 (six) Medical hours as Branch needed for Wheezing or Shortness of Breath. fluticasone 2020-09 Yes [id number] 1{puff} Inhale 1 [facility] furoate-anu 2-30 Puff ity of anteroL 00:00: daily. [place] ([address]) Branch 100-25 mcg/dose DsDv albuterol 2020-09 Yes [id number] 2.5mg Inhale 3 [facility] 2.5 mg /3 2-30 mL every 4 ity of mL (0.083 00:00: (four) [place] %) 00 hours as Medical nebulizer needed for Bran ch solution Wheezing or Shortness of Breath. albuterol 2020-09 Yes [id number] 2{puff} Inhale 2 [facility] 90 2-30 Puffs ity of mcg/actuati 00:00: every 6 [place] as on inhaler 00 (six) Medical hours as Branch needed for Wheezing or Shortness of Breath. fluticasone 2020-09 Yes [id number] 1{puff} Inhale 1 [facility] furoate-anu 2-30 Puff ity of anteroL 00:00: daily. [place] ([address]) Branch 100-25 mcg/dose DsDv albuterol 2020-09 Yes [id number] 2.5mg Inhale 3 [facility] 2.5 mg /3 2-30 mL every 4 ity of mL (0.083 00:00: (four) [place] %) 00 hours as Medical nebulizer needed for Bran ch solution Wheezing or Shortness of Breath. albuterol 2020-09 Yes [id number] 2{puff} Inhale 2 [facility] 90 2-30 Puffs ity of mcg/actuati 00:00: every 6 [place] as on inhaler 00 (six) Medical hours as Branch needed for Wheezing or Shortness of Breath. fluticasone 2020-09 Yes [id number] 1{puff} Inhale 1 [facility] furoate-aun 2-30 Puff ity of anteroL 00:00: daily. [place] ([address]) Branch 100-25 mcg/dose DsDv albuterol 2020-09 Yes [id number] 2.5mg Inhale 3 [facility] 2.5 mg /3 2-30 mL every 4 ity of mL (0.083 00:00: (four) [place] %) 00 hours as Medical nebulizer needed for Bran ch solution Wheezing or Shortness of Breath. albuterol 2020-09 Yes [id number] 2{puff} Inhale 2 [facility] 90 2-30 Puffs ity of mcg/actuati 00:00: every 6 [place] as on inhaler 00 (six) Medical hours as Branch needed for Wheezing or Shortness of Breath. fluticasone 2020-09 Yes [id number] 1{puff} Inhale 1 [facility] furoate-anu 2-30 Puff ity of anteroL 00:00: daily. [place] ([address]) Branch 100-25 mcg/dose DsDv albuterol 2020-09 Yes [id number] 2.5mg Inhale 3 [facility] 2.5 mg /3 2-30 mL every 4 ity of mL (0.083 00:00: (four) [place] %) 00 hours as Medical nebulizer needed for Bran ch solution Wheezing or Shortness of Breath. albuterol 2020-09 Yes [id number] 2{puff} Inhale 2 [facility] 90 2-30 Puffs ity of mcg/actuati 00:00: every 6 [place] as on inhaler 00 (six) Medical hours as Branch needed for Wheezing or Shortness of Breath. fluticasone 2020-09 Yes [id number] 1{puff} Inhale 1 [facility] furoate-anu 2-30 Puff ity of anteroL 00:00: daily. [place] ([address]) Branch 100-25 mcg/dose DsDv albuterol 2020-09 Yes [id number] 2.5mg Inhale 3 [facility] 2.5 mg /3 2-30 mL every 4 ity of mL (0.083 00:00: (four) [place] %) 00 hours as Medical nebulizer needed for Bran ch solution Wheezing or Shortness of Breath. albuterol 2020-09 Yes [id number] 2{puff} Inhale 2 [facility] 90 2-30 Puffs ity of mcg/actuati 00:00: every 6 [place] as on inhaler 00 (six) Medical hours as Branch needed for Wheezing or Shortness of Breath. fluticasone 2020-09 Yes [id number] 1{puff} Inhale 1 [facility] furoate-anu 2-30 Puff ity of anteroL 00:00: daily. [place] ([address]) Branch 100-25 mcg/dose DsDv albuterol 2020-09 Yes [id number] 2.5mg Inhale 3 [facility] 2.5 mg /3 2-30 mL every 4 ity of mL (0.083 00:00: (four) [place] %) 00 hours as Medical nebulizer needed for Bran ch solution Wheezing or Shortness of Breath. albuterol 2020-09 Yes [id number] 2{puff} Inhale 2 [facility] 90 2-30 Puffs ity of mcg/actuati 00:00: every 6 [place] as on inhaler 00 (six) Medical hours as Branch needed for Wheezing or Shortness of Breath. fluticasone 2020-09 Yes [id number] 1{puff} Inhale 1 [facility] furoate-anu 2-30 Puff ity of anteroL 00:00: daily. [place] ([address]) Branch 100-25 mcg/dose DsDv albuterol 2020-09 Yes [id number] 2.5mg Inhale 3 [facility] 2.5 mg /3 2-30 mL every 4 ity of mL (0.083 00:00: (four) [place] %) 00 hours as Medical nebulizer needed for Bran ch solution Wheezing or Shortness of Breath. albuterol 2020-09 Yes [id number] 2{puff} Inhale 2 [facility] 90 2-30 Puffs ity of mcg/actuati 00:00: every 6 [place] as on inhaler 00 (six) Medical hours as Branch needed for Wheezing or Shortness of Breath. fluticasone 2020-09 Yes [id number] 1{puff} Inhale 1 [facility] furoate-anu 2-30 Puff ity of anteroL 00:00: daily. [place] ([address]) Branch 100-25 mcg/dose DsDv albuterol 2020-09 Yes [id number] 2.5mg Inhale 3 [facility] 2.5 mg /3 2-30 mL every 4 ity of mL (0.083 00:00: (four) [place] %) 00 hours as Medical nebulizer needed for Bran ch solution Wheezing or Shortness of Breath. albuterol 2020-09 Yes [id number] 2{puff} Inhale 2 [facility] 90 2-30 Puffs ity of mcg/actuati 00:00: every 6 [place] as on inhaler 00 (six) Medical hours as Branch needed for Wheezing or Shortness of Breath. fluticasone 2020-09 Yes [id number] 1{puff} Inhale 1 [facility] furoate-anu 2-30 Puff ity of anteroL 00:00: daily. [place] ([address]) Branch 100-25 mcg/dose DsDv albuterol 2020-09 Yes [id number] 2.5mg Inhale 3 [facility] 2.5 mg /3 2-30 mL every 4 ity of mL (0.083 00:00: (four) [place] %) 00 hours as Medical nebulizer needed for Bran ch solution Wheezing or Shortness of Breath. albuterol 2020-09 Yes [id number] 2{puff} Inhale 2 [facility] 90 2-30 Puffs ity of mcg/actuati 00:00: every 6 [place] as on inhaler 00 (six) Medical hours as Branch needed for Wheezing or Shortness of Breath. fluticasone 2020-09 Yes [id number] 1{puff} Inhale 1 [facility] furoate-anu 2-30 Puff ity of anteroL 00:00: daily. [place] ([address]) Branch 100-25 mcg/dose DsDv albuterol 2020-09 Yes [id number] 2.5mg Inhale 3 [facility] 2.5 mg /3 2-30 mL every 4 ity of mL (0.083 00:00: (four) [place] %) 00 hours as Medical nebulizer needed for Bran ch solution Wheezing or Shortness of Breath. albuterol 2020-09 Yes [id number] 2{puff} Inhale 2 [facility] 90 2-30 Puffs ity of mcg/actuati 00:00: every 6 [place] as on inhaler 00 (six) Medical hours as Branch needed for Wheezing or Shortness of Breath. fluticasone 2020-09 Yes [id number] 1{puff} Inhale 1 [facility] furoate-anu 2-30 Puff ity of anteroL 00:00: daily. [place] ([address]) Branch 100-25 mcg/dose DsDv albuterol 2020-09 Yes [id number] 2.5mg Inhale 3 [facility] 2.5 mg /3 2-30 mL every 4 ity of mL (0.083 00:00: (four) [place] %) 00 hours as Medical nebulizer needed for Bran ch solution Wheezing or Shortness of Breath. albuterol 2020-09 Yes [id number] 2{puff} Inhale 2 [facility] 90 2-30 Puffs ity of mcg/actuati 00:00: every 6 [place] as on inhaler 00 (six) Medical hours as Branch needed for Wheezing or Shortness of Breath. albuterol 2020-09 Yes [id number] 2.5mg Inhale 3 [facility] 2.5 mg /3 2-30 mL every 4 ity of mL (0.083 00:00: (four) [place] %) 00 hours as Medical nebulizer needed for Bran ch solution Wheezing or Shortness of Breath. albuterol 2020-09 Yes [id number] 2{puff} Inhale 2 [facility] 90 2-30 Puffs ity of mcg/actuati 00:00: every 6 [place] as on inhaler 00 (six) Medical hours as Branch needed for Wheezing or Shortness of Breath. albuterol 2020-09 Yes [id number] 2.5mg Inhale 3 [facility] 2.5 mg /3 2-30 mL every 4 ity of mL (0.083 00:00: (four) [place] %) 00 hours as Medical nebulizer needed for Bran ch solution Wheezing or Shortness of Breath. albuterol 2020-09 Yes [id number] 2{puff} Inhale 2 [facility] 90 2-30 Puffs ity of mcg/actuati 00:00: every 6 [place] as on inhaler 00 (six) Medical hours as Branch needed for Wheezing or Shortness of Breath. albuterol 2020-09 Yes [id number] 2.5mg Inhale 3 [facility] 2.5 mg /3 2-30 mL every 4 ity of mL (0.083 00:00: (four) [place] %) 00 hours as Medical nebulizer needed for Bran ch solution Wheezing or Shortness of Breath. albuterol 2020-09 Yes [id number] 2{puff} Inhale 2 [facility] 90 2-30 Puffs ity of mcg/actuati 00:00: every 6 [place] as on inhaler 00 (six) Medical hours as Branch needed for Wheezing or Shortness of Breath. albuterol 2020-09 Yes [id number] 2.5mg Inhale 3 [facility] 2.5 mg /3 2-30 mL every 4 ity of mL (0.083 00:00: (four) [place] %) 00 hours as Medical nebulizer needed for Bran ch solution Wheezing or Shortness of Breath. albuterol 2020-09 Yes [id number] 2{puff} Inhale 2 [facility] 90 2-30 Puffs ity of mcg/actuati 00:00: every 6 [place] as on inhaler 00 (six) Medical hours as Branch needed for Wheezing or Shortness of Breath. albuterol 2020-09 Yes [id number] 2.5mg Inhale 3 [facility] 2.5 mg /3 2-30 mL every 4 ity of mL (0.083 00:00: (four) [place] %) 00 hours as Medical nebulizer needed for Bran ch solution Wheezing or Shortness of Breath. albuterol 2020-09 Yes [id number] 2{puff} Inhale 2 [facility] 90 2-30 Puffs ity of mcg/actuati 00:00: every 6 [place] as on inhaler 00 (six) Medical hours as Branch needed for Wheezing or Shortness of Breath. albuterol 2020-09 Yes [id number] 2.5mg Inhale 3 [facility] 2.5 mg /3 2-30 mL every 4 ity of mL (0.083 00:00: (four) [place] %) 00 hours as Medical nebulizer needed for Bran ch solution Wheezing or Shortness of Breath. albuterol 2020-09 Yes [id number] 2{puff} Inhale 2 [facility] 90 2-30 Puffs ity of mcg/actuati 00:00: every 6 [place] as on inhaler 00 (six) Medical hours as Branch needed for Wheezing or Shortness of Breath. albuterol 2020-09 Yes [id number] 2.5mg Inhale 3 [facility] 2.5 mg /3 2-30 mL every 4 ity of mL (0.083 00:00: (four) [place] %) 00 hours as Medical nebulizer needed for Bran ch solution Wheezing or Shortness of Breath. albuterol 2020-09 Yes [id number] 2{puff} Inhale 2 [facility] 90 2-30 Puffs ity of mcg/actuati 00:00: every 6 [place] as on inhaler 00 (six) Medical hours as Branch needed for Wheezing or Shortness of Breath. albuterol 2020-09 Yes [id number] 2.5mg Inhale 3 [facility] 2.5 mg /3 2-30 mL every 4 ity of mL (0.083 00:00: (four) [place] %) 00 hours as Medical nebulizer needed for Bran ch solution Wheezing or Shortness of Breath. albuterol 2020-09 Yes [id number] 2{puff} Inhale 2 [facility] 90 2-30 Puffs ity of mcg/actuati 00:00: every 6 [place] as on inhaler 00 (six) Medical hours as Branch needed for Wheezing or Shortness of Breath. albuterol 2020-09 Yes [id number] 2.5mg Inhale 3 [facility] 2.5 mg /3 2-30 mL every 4 ity of mL (0.083 00:00: (four) [place] %) 00 hours as Medical nebulizer needed for Bran ch solution Wheezing or Shortness of Breath. albuterol 2020-09 Yes [id number] 2{puff} Inhale 2 [facility] 90 2-30 Puffs ity of mcg/actuati 00:00: every 6 [place] as on inhaler 00 (six) Medical hours as Branch needed for Wheezing or Shortness of Breath. albuterol 2020-09 Yes [id number] 2.5mg Inhale 3 [facility] 2.5 mg /3 2-30 mL every 4 ity of mL (0.083 00:00: (four) [place] %) 00 hours as Medical nebulizer needed for Bran ch solution Wheezing or Shortness of Breath. albuterol 2020-09 Yes [id number] 2{puff} Inhale 2 [facility] 90 2-30 Puffs ity of mcg/actuati 00:00: every 6 [place] as on inhaler 00 (six) Medical hours as Branch needed for Wheezing or Shortness of Breath. albuterol 2020-09 Yes [id number] 2.5mg Inhale 3 [facility] 2.5 mg /3 2-30 mL every 4 ity of mL (0.083 00:00: (four) [place] %) 00 hours as Medical nebulizer needed for Bran ch solution Wheezing or Shortness of Breath. albuterol 2020-09 Yes [id number] 2{puff} Inhale 2 [facility] 90 2-30 Puffs ity of mcg/actuati 00:00: every 6 [place] as on inhaler 00 (six) Medical hours as Branch needed for Wheezing or Shortness of Breath. albuterol 2020-09 Yes [id number] 2.5mg Inhale 3 [facility] 2.5 mg /3 2-30 mL every 4 ity of mL (0.083 00:00: (four) [place] %) 00 hours as Medical nebulizer needed for Bran ch solution Wheezing or Shortness of Breath. albuterol 2020-09 Yes [id number] 2{puff} Inhale 2 [facility] 90 2-30 Puffs ity of mcg/actuati 00:00: every 6 [place] as on inhaler 00 (six) Medical hours as Branch needed for Wheezing or Shortness of Breath. albuterol 2020-09 Yes [id number] 2.5mg Inhale 3 [facility] 2.5 mg /3 2-30 mL every 4 ity of mL (0.083 00:00: (four) [place] %) 00 hours as Medical nebulizer needed for Bran ch solution Wheezing or Shortness of Breath. albuterol 2020-09 Yes [id number] 2{puff} Inhale 2 [facility] 90 2-30 Puffs ity of mcg/actuati 00:00: every 6 [place] as on inhaler 00 (six) Medical hours as Branch needed for Wheezing or Shortness of Breath. albuterol 2020-09 Yes [id number] 2.5mg Inhale 3 [facility] 2.5 mg /3 2-30 mL every 4 ity of mL (0.083 00:00: (four) [place] %) 00 hours as Medical nebulizer needed for Bran ch solution Wheezing or Shortness of Breath. albuterol 2020-09 Yes [id number] 2{puff} Inhale 2 [facility] 90 2-30 Puffs ity of mcg/actuati 00:00: every 6 [place] as on inhaler 00 (six) Medical hours as Branch needed for Wheezing or Shortness of Breath. fluticasone 2020-09- No [id number] 1{puff} Inhale 1 [facility] furoate-anu 2-30 02-15 Puff ity of anteroL 00:00: 00:00 daily. [place] (BREO 00 :00 Medical ELLIP[facility]) Branch 100-25 mcg/dose DsDv oxybutynin Yes [id number] 10mg Take 1 U nivers 10 mg 24 hr 8-17 tablet by ity of tablet 00:00: mouth 00 daily. Medical Branch oxybutynin Yes [id number] 10mg Take 1 U nivers 10 mg 24 hr 8-17 tablet by ity of tablet 00:00: mouth [place] 00 daily. Medical [facility] oxybutynin Yes [id number] 10mg Take 1 U nivers 10 mg 24 hr 8-17 tablet by ity of tablet 00:00: mouth 00 daily. [facility] oxybutynin Yes [id number] 10mg Take 1 U nivers 10 mg 24 hr 8-17 tablet by ity of tablet 00:00: mouth [place] 00 daily. Medical [facility] oxybutynin 2020-0 Yes [id number] 10mg Take 1 U nivers 10 mg 24 hr 8-17 tablet by ity of tablet 00:00: mouth [place] 00 daily. Medical [facility] oxybutynin 2020-0 Yes [id number] 10mg Take 1 U nivers 10 mg 24 hr 8-17 tablet by ity of tablet 00:00: mouth [place] 00 daily. [facility] oxybutynin 2020-0 Yes [id number] 10mg Take 1 U nivers 10 mg 24 hr 8-17 tablet by ity of tablet 00:00: mouth [place] 00 daily. [facility] oxybutynin 2020-0 Yes [id number] 10mg Take 1 U nivers 10 mg 24 hr 8-17 tablet by ity of tablet 00:00: mouth [place] 00 daily. [facility] oxybutynin 2020-0 Yes [id number] 10mg Take 1 U nivers 10 mg 24 hr 8-17 tablet by ity of tablet 00:00: mouth [place] 00 daily. [facility] oxybutynin 2020-0 Yes [id number] 10mg Take 1 U nivers 10 mg 24 hr 8-17 tablet by ity of tablet 00:00: mouth [place] 00 daily. [facility] oxybutynin 2020-0 Yes [id number] 10mg Take 1 U nivers 10 mg 24 hr 8-17 tablet by ity of tablet 00:00: mouth [place] 00 daily. [facility] oxybutynin 2020-0 Yes [id number] 10mg Take 1 U nivers 10 mg 24 hr 8-17 tablet by ity of tablet 00:00: mouth [place] 00 daily. [facility] oxybutynin 2020-0 Yes [id number] 10mg Take 1 U nivers 10 mg 24 hr 8-17 tablet by ity of tablet 00:00: mouth [place] 00 daily. [facility] oxybutynin 2020-0 Yes [id number] 10mg Take 1 U nivers 10 mg 24 hr 8-17 tablet by ity of tablet 00:00: mouth [place] 00 daily. [facility] oxybutynin 2020-0 Yes [id number] 10mg Take 1 U nivers 10 mg 24 hr 8-17 tablet by ity of tablet 00:00: mouth [place] 00 daily. [facility] oxybutynin 2020-0 Yes [id number] 10mg Take 1 U nivers 10 mg 24 hr 8-17 tablet by ity of tablet 00:00: mouth [place] 00 daily. [facility] oxybutynin 1-0 Yes [id number] 10mg Take 1 U nivers 10 mg 24 hr 8-17 tablet by ity of tablet 00:00: mouth [place] 00 daily. [facility] oxybutynin 2020-0 Yes [id number] 10mg Take 1 U nivers 10 mg 24 hr 8-17 tablet by ity of tablet 00:00: mouth [place] 00 daily. [facility] oxybutynin 2020-0 Yes [id number] 10mg Take 1 U nivers 10 mg 24 hr 8-17 tablet by ity of tablet 00:00: mouth [place] 00 daily. [facility] oxybutynin 2020-0 Yes [id number] 10mg Take 1 U nivers 10 mg 24 hr 8-17 tablet by ity of tablet 00:00: mouth [place] 00 daily. [facility] oxybutynin 2020-0 Yes [id number] 10mg Take 1 U nivers 10 mg 24 hr 8-17 tablet by ity of tablet 00:00: mouth [place] 00 daily. [facility] oxybutynin 2020-0 Yes [id number] 10mg Take 1 U nivers 10 mg 24 hr 8-17 tablet by ity of tablet 00:00: mouth [place] 00 daily. [facility] oxybutynin 2020-0 Yes [id number] 10mg Take 1 U nivers 10 mg 24 hr 8-17 tablet by ity of tablet 00:00: mouth [place] 00 daily. [facility] oxybutynin 2020-0 Yes [id number] 10mg Take 1 U nivers 10 mg 24 hr 8-17 tablet by ity of tablet 00:00: mouth [place] 00 daily. [facility] oxybutynin 2020-0 Yes [id number] 10mg Take 1 U nivers 10 mg 24 hr 8-17 tablet by ity of tablet 00:00: mouth [place] 00 daily. [facility] oxybutynin 2020-0 Yes [id number] 10mg Take 1 U nivers 10 mg 24 hr 8-17 tablet by ity of tablet 00:00: mouth [place] 00 daily. [facility] oxybutynin 2020-0 Yes [id number] 10mg Take 1 U nivers 10 mg 24 hr 8-17 tablet by ity of tablet 00:00: mouth [place] 00 daily. [facility] oxybutynin 2020-0 Yes [id number] 10mg Take 1 U nivers 10 mg 24 hr 8-17 tablet by ity of tablet 00:00: mouth [place] 00 daily. [facility] oxybutynin 2020-0 Yes [id number] 10mg Take 1 U nivers 10 mg 24 hr 8-17 tablet by ity of tablet 00:00: mouth [place] 00 daily. [facility] oxybutynin 2020-0 Yes [id number] 10mg Take 1 U nivers 10 mg 24 hr 8-17 tablet by ity of tablet 00:00: mouth [place] 00 daily. [facility] oxybutynin 2020-0 Yes [id number] 10mg Take 1 U nivers 10 mg 24 hr 8-17 tablet by ity of tablet 00:00: mouth [place] 00 daily. [facility] oxybutynin 2020-0 Yes [id number] 10mg Take 1 U nivers 10 mg 24 hr 8-17 tablet by ity of tablet 00:00: mouth [place] 00 daily. [facility] oxybutynin 2020-0 Yes [id number] 10mg Take 1 U nivers 10 mg 24 hr 8-17 tablet by ity of tablet 00:00: mouth [place] 00 daily. [facility] oxybutynin 2020-0 Yes [id number] 10mg Take 1 U nivers 10 mg 24 hr 8-17 tablet by ity of tablet 00:00: mouth [place] 00 daily. [facility] oxybutynin 2020-0 Yes [id number] 10mg Take 1 U nivers 10 mg 24 hr 8-17 tablet by ity of tablet 00:00: mouth [place] 00 daily. [facility] oxybutynin 2020-0 Yes [id number] 10mg Take 1 U nivers 10 mg 24 hr 8-17 tablet by ity of tablet 00:00: mouth [place] 00 daily. [facility] oxybutynin 2020-0 Yes [id number] 10mg Take 1 U nivers 10 mg 24 hr 8-17 tablet by ity of tablet 00:00: mouth [place] 00 daily. [facility] oxybutynin 2020-0 Yes [id number] 10mg Take 1 U nivers 10 mg 24 hr 8-17 tablet by ity of tablet 00:00: mouth [place] 00 daily. [facility] oxybutynin 2020-0 Yes [id number] 10mg Take 1 U nivers 10 mg 24 hr 8-17 tablet by ity of tablet 00:00: mouth [place] 00 daily. [facility] oxybutynin 2020-0 Yes [id number] 10mg Take 1 U nivers 10 mg 24 hr 8-17 tablet by ity of tablet 00:00: mouth [place] 00 daily. [facility] oxybutynin 2020-0 Yes [id number] 10mg Take 1 U nivers 10 mg 24 hr 8-17 tablet by ity of tablet 00:00: mouth [place] 00 daily. [facility] oxybutynin 2020-0 Yes [id number] 10mg Take 1 U nivers 10 mg 24 hr 8-17 tablet by ity of tablet 00:00: mouth [place] 00 daily. [facility] oxybutynin 2020-0 Yes [id number] 10mg Take 1 U nivers 10 mg 24 hr 8-17 tablet by ity of tablet 00:00: mouth [place] 00 daily. [facility] oxybutynin 2020-0 Yes [id number] 10mg Take 1 U nivers 10 mg 24 hr 8-17 tablet by ity of tablet 00:00: mouth [place] 00 daily. [facility] oxybutynin 2020-0 Yes [id number] 10mg Take 1 U nivers 10 mg 24 hr 8-17 tablet by ity of tablet 00:00: mouth [place] 00 daily. [facility] oxybutynin 2020-0 Yes [id number] 10mg Take 1 U nivers 10 mg 24 hr 8-17 tablet by ity of tablet 00:00: mouth [place] 00 daily. [facility] oxybutynin 2020-0 Yes [id number] 10mg Take 1 U nivers 10 mg 24 hr 8-17 tablet by ity of tablet 00:00: mouth [place] 00 daily. [facility] oxybutynin 2020-0 Yes [id number] 10mg Take 1 U nivers 10 mg 24 hr 8-17 tablet by ity of tablet 00:00: mouth [place] 00 daily. [facility] oxybutynin 2020-0 Yes [id number] 10mg Take 1 [facility] nivers 10 mg 24 hr 8-17 tablet by ity of tablet 00:00: mouth [place] 00 daily. [facility] oxybutynin 2020-0 Yes [id number] 10mg Take 1 [facility] nivers 10 mg 24 hr 8-17 tablet by ity of tablet 00:00: mouth [place] 00 daily. [facility] meloxicam 2020-0 Yes [id number] 7.5mg Take 1 [facility] ([facility]BIC) 7.5 8-02 tablet by ity of mg tablet 00:00: mouth [place] 00 daily. [facility] meloxicam Yes [id number] 7.5mg Take 1 [facility] (MOBIC) 7.5 8- tablet by ity of mg tablet 00:00: mouth [place] 00 daily. [facility] meloxicam 2021- No [id number] 7.5mg Take 1 [facility] (MOBIC) 7.5 8-10 20- tablet by it y of mg tablet 00:00: 00:00 mouth [place] 00 :00 daily. [facility] HYDROCHLORO 2021- No [id number] TAKE 1 [facility] THIAZIDE 04-16 CAPSULE BY ity of 12.5 mg 00:00: 00:00 MOUTH [place] capsule 00 :00 EVERY DAY [facility] omeprazole Yes 20mg QD Take [address] [facility] (PRILOSEC) 1-10 by mouth [facility] 20 MG 17:56: daily. [facility] capsule 18 [place] atorvastati Yes 10mg QD Take [address] [facility] (LIPITOR) 1-10 by mouth [facility] 10 MG 17:56: every Medical tablet 18 evening. [place] escitalopra Yes 20mg QD Take 20 mg [...] 20 MG 17:56: daily. Medical capsule 18 [place] atorvastati Yes 10mg QD Take [address] [facility] (LIPITOR) 1-10 by mouth [facility] 10 MG 17:56: every Medical tablet 18 evening. [place] acetaminoph Yes 1{tbl} Take [address] [facility] [address] [facility] en-codeine 1-10 tablet by [facility] (TYLENOL 17:56: mouth Medical #4) 300-60 18 every 4 Center mg per (four) tablet hours as needed for Pain. tiotropium 2019-0 Yes 18ug QD Inhale [address] bromide 2.5 1-10 mcg by [facility] mcg/actuati 17:56: mouth via M edical on Mist 18 inhaler Center daily. Missing or 2019-0 Yes 1.3% Apply 1.[address] Non-Formula 1-10 % [facility] ry 17:56: topically Medical Medication 18 every 12 Cente r (twelve) hours Diclofenac Epolamine Topical patch 1.3% . metoprolol 2019-0 Yes 25mg Q.5D Take [address] [facility] (TOPROL-XL) 1-10 by mouth 2 [place] 25 MG 24 hr 17:56: (two) Medic al tablet 18 times Center daily. zolpidem 2019-0 Yes 10mg Take [address] [facility] (AMBIEN) 10 1-10 by mouth [facility] mg tablet 17:56: every Medical 18 night as Center needed for Insomnia. acetaminoph 2019-0 Yes 1{tbl} Take [address] en-codeine 1-10 tablet by [facility] (TYLENOL 17:56: mouth Medical #4) 300-60 18 every 4 Center mg per (four) tablet hours as needed for Pain. tiotropium 2019-0 Yes 18ug QD Inhale [address] bromide 2.5 1-10 mcg by [facility] mcg/actuati 17:56: mouth via [facility] on [facility] 18 inhaler Center daily. Missing or 2019- Yes 1.3% Apply 1.[address] Non-Formula 1-10 % [facility] 17:56: topically Medical Medication 18 every 12 Cente r (twelve) hours Diclofenac Epolamine Topical patch 1.3% . metoprolol 2019-0 Yes 25mg Q.5D Take [address] (TOPROL-XL) 1-10 by mouth 2 [place] 25 MG 24 hr 17:56: (two) Medic al tablet 18 times Center daily. zolpidem 2019-0 Yes 10mg Take [address] [facility] (AMBIEN) 10 1-10 by mouth [facility] mg tablet 17:56: every Medical 18 night as Center needed for Insomnia. escitalopra 2019-0 Yes 20mg QD Take [address] [facility] oxalate 1-10 by mouth [facility] (LEXAPRO) 17:56: daily. Medica l 10 MG 18 Center tablet cyclobenzap 2019-0 Yes 10mg Take [address] [facility] rine 1-10 by mouth 3 [facility] (FLEXERIL) 17:56: (three) Medi zan 10 MG 18 times Center tablet daily as needed for Muscle spasms. Immunizations Ordered Filled Immunization Date Status Comments [facility] e Immunization Name Name Influenza Virus 2022-07-20 Completed Universit y of Vaccine,quad 00:00:00 [place] [facility] 65+ Influenza Virus 2022-07-20 Completed [facility] of Vaccine,quad 00:00:00 [place] [facility] 65+ Influenza Virus 2022-07-20 Completed [facility] of Vaccine,quad 00:00:00 [place] [facility] 65+ Influenza Virus 2022-07-20 Completed [facility]it [facility] of Vaccine,quad 00:00:00 [place] [facility] 65+ Influenza Virus 2022-07-20 Completed [facility]it [facility] of Vaccine,quad 00:00:00 [place] [facility] 65+ Influenza Virus 2022-07-20 Completed [facility]it [facility] of Vaccine,quad 00:00:00 [place] [facility] 65+ Influenza Virus 2022-07-20 Completed [facility]it [facility] of Vaccine,quad 00:00:00 [place] [facility] 65+ Influenza Virus 2022-07-20 Completed [facility] of Vaccine,quad 00:00:00 [place] [facility] 65+ Influenza Virus 2022-07-20 Completed [facility] of Vaccine,quad 00:00:00 [place] [facility] 65+ Influenza Virus 2022-07-20 Completed [facility]it [facility] of Vaccine,quad 00:00:00 [place] [facility] 65+ Influenza Virus 2022-07-20 Completed Universit [facility] of Vaccine,quad 00:00:00 [place] [facility] 65+ Influenza Virus 2022-07-20 Completed [facility]it [facility] of Vaccine,quad 00:00:00 [place] [facility] 65+ Influenza Virus 2022-07-20 Completed Universit [facility] of Vaccine,quad 00:00:00 [place] [facility] 65+ Influenza Virus 2022-07-20 Completed Universit y of Vaccine,quad 00:00:00 [place] [facility] 65+ Influenza Virus 2022-07-20 Completed Universit y of Vaccine,quad 00:00:00 [place] [facility] 65+ Influenza Virus 2022-07-20 Completed Universit [facility] of Vaccine,quad 00:00:00 [place] [facility] 65+ Influenza Virus 2022-07-20 Completed Universit [facility] of Vaccine,quad 00:00:00 [place] [facility] 65+ Influenza Virus 2022-07-20 Completed [facility]it y of Vaccine,quad 00:00:00 [place] [facility] 65+ Influenza Virus 2022-07-20 Completed Universit y of Vaccine,quad 00:00:00 [place] [facility] 65+ Influenza Virus 2022-07-20 Completed Universit y of Vaccine,quad 00:00:00 [place] [facility] 65+ Influenza Virus 2022-07-20 Completed [facility]it [facility] of Vaccine,quad 00:00:00 [place] [facility] 65+ Influenza Virus 2022-07-20 Completed [facility]it y of Vaccine,quad 00:00:00 [place] [facility] 65+ Influenza Virus 2022-07-20 Completed [facility]it y of Vaccine,quad 00:00:00 [place] [facility] 65+ Influenza Virus 2022-07-20 Completed [facility]it y of Vaccine,quad 00:00:00 [place] [facility] 65+ Influenza Virus 2022-07-20 Completed Universit y of Vaccine,quad 00:00:00 [place] [facility] 65+ Influenza Virus 2022-07-20 Completed Universit y of Vaccine,quad 00:00:00 [place] [facility] 65+ Influenza Virus 2022-07-20 Completed Universit y of Vaccine,quad 00:00:00 [place] [facility] 65+ Influenza Virus 2022-07-20 Completed Universit y of Vaccine,quad 00:00:00 [place] [facility] 65+ Influenza Virus 2022-07-20 Completed Universit [facility] of Vaccine,quad 00:00:00 [place] [facility] 65+ Influenza Virus 2022-07-20 Completed Universit y of Vaccine,quad 00:00:00 [place] [facility] 65+ Influenza Virus 2022-07-20 Completed Universit y of Vaccine,quad 00:00:00 [place] [facility] 65+ Influenza Virus 2022-07-20 Completed Universit y of Vaccine,quad 00:00:00 [place] [facility] 65+ Influenza Virus 2022-07-20 Completed Universit y of Vaccine,quad 00:00:00 [place] [facility] 65+ Influenza Virus 2022-07-20 Completed Universit y of Vaccine,quad 00:00:00 [place] [facility] 65+ Influenza Virus 2022-07-20 Completed Universit y of Vaccine,quad 00:00:00 [place] [facility] 65+ Influenza Virus 2022-07-20 Completed Universit y of Vaccine,quad 00:00:00 [place] [facility] 65+ Influenza Virus 2022-07-20 Completed Universit y of Vaccine,quad 00:00:00 [place] [facility] 65+ Influenza Virus 2022-07-20 Completed Universit y of Vaccine,quad 00:00:00 [place] [facility] 65+ SARS-COV-2 COVID-19 2021-09-09 Completed Unive rsity of PFIZER VACCINE 00:00:00 [facility] SARS-COV-2 COVID-19 2021-09-09 Completed Unive rsity of PFIZER VACCINE 00:00:00 [facility] SARS-COV-2 COVID-19 2021-09-09 Completed Unive rsity of PFIZER VACCINE 00:00:00 [facility] SARS-COV-2 COVID-19 2021-09-09 Completed Unive rsity of PFIZER VACCINE 00:00:00 [facility] SARS-COV-2 COVID-19 2021-09-09 Completed Unive rsity of PFIZER VACCINE 00:00:00 [facility] SARS-COV-2 COVID-19 2021-09-09 Completed Unive rsity of PFIZER VACCINE 00:00:00 [facility] SARS-COV-2 COVID-19 2021-09-09 Completed Unive rsity of PFIZER VACCINE 00:00:00 [facility] SARS-COV-2 COVID-19 2021-09-09 Completed Unive rsity of PFIZER VACCINE 00:00:00 [facility] SARS-COV-2 COVID-19 2021-09-09 Completed Unive rsity of PFIZER VACCINE 00:00:00 [facility] SARS-COV-2 COVID-19 2021-09-09 Completed Unive rsity of PFIZER VACCINE 00:00:00 [facility] SARS-COV-2 COVID-19 2021-09-09 Completed Unive rsity of PFIZER VACCINE 00:00:00 [facility] SARS-COV-2 COVID-19 2021-09-09 Completed Unive rsity of PFIZER VACCINE 00:00:00 [facility] SARS-COV-2 COVID-19 2021-09-09 Completed Unive rsity of PFIZER VACCINE 00:00:00 [facility] SARS-COV-2 COVID-19 2021-09-09 Completed Unive rsity of PFIZER VACCINE 00:00:00 [facility] SARS-COV-2 COVID-19 2021-09-09 Completed Unive rsity of PFIZER VACCINE 00:00:00 [facility] SARS-COV-2 COVID-19 2021-09-09 Completed Unive rsity of PFIZER VACCINE 00:00:00 [facility] SARS-COV-2 COVID-19 2021-09-09 Completed Unive rsity of PFIZER VACCINE 00:00:00 [facility] SARS-COV-2 COVID-19 2021-09-09 Completed Unive rsity of PFIZER VACCINE 00:00:00 [facility] SARS-COV-2 COVID-19 2021-09-09 Completed Unive rsity of PFIZER VACCINE 00:00:00 [facility] SARS-COV-2 COVID-19 2021-09-09 Completed Unive rsity of PFIZER VACCINE 00:00:00 [facility] SARS-COV-2 COVID-19 2021-09-09 Completed Unive rsity of PFIZER VACCINE 00:00:00 [facility] SARS-COV-2 COVID-19 2021-09-09 Completed Unive rsity of PFIZER VACCINE 00:00:00 [facility] SARS-COV-2 COVID-19 2021-09-09 Completed Unive rsity of PFIZER VACCINE 00:00:00 [facility] SARS-COV-2 COVID-19 2021-09-09 Completed Unive rsity of PFIZER VACCINE 00:00:00 [facility] SARS-COV-2 COVID-19 2021-09-09 Completed Unive rsity of PFIZER VACCINE 00:00:00 [facility] SARS-COV-2 COVID-19 2021-09-09 Completed Unive rsity of PFIZER VACCINE 00:00:00 [facility] SARS-COV-2 COVID-19 2021-09-09 Completed Unive rsity of PFIZER VACCINE 00:00:00 [facility] SARS-COV-2 COVID-19 2021-09-09 Completed Unive rsity of PFIZER VACCINE 00:00:00 [facility] SARS-COV-2 COVID-19 2021-09-09 Completed Unive rsity of PFIZER VACCINE 00:00:00 [facility] SARS-COV-2 COVID-19 2021-09-09 Completed Unive rsity of PFIZER VACCINE 00:00:00 [facility] SARS-COV-2 COVID-19 2021-09-09 Completed Unive rsity of PFIZER VACCINE 00:00:00 [facility] SARS-COV-2 COVID-19 2021-09-09 Completed Unive rsity of PFIZER VACCINE 00:00:00 [facility] SARS-COV-2 COVID-19 2021-09-09 Completed Unive rsity of PFIZER VACCINE 00:00:00 [facility] SARS-COV-2 COVID-19 2021-09-09 Completed Unive rsity of PFIZER VACCINE 00:00:00 [facility] SARS-COV-2 COVID-19 2021-09-09 Completed Unive rsity of PFIZER VACCINE 00:00:00 [facility] SARS-COV-2 COVID-19 2021-09-09 Completed Unive rsity of PFIZER VACCINE 00:00:00 [facility] SARS-COV-2 COVID-19 2021-09-09 Completed Unive rsity of PFIZER VACCINE 00:00:00 [facility] SARS-COV-2 COVID-19 2021-09-09 Completed Unive rsity of PFIZER VACCINE 00:00:00 [facility] SARS-COV-2 COVID-19 2021-09-09 Completed Unive rsity of PFIZER VACCINE 00:00:00 [facility] SARS-COV-2 COVID-19 2021-09-09 Completed Unive rsity of PFIZER VACCINE 00:00:00 [facility] SARS-COV-2 COVID-19 2021-09-09 Completed Unive rsity of PFIZER VACCINE 00:00:00 [facility] SARS-COV-2 COVID-19 2021-09-09 Completed Unive rsity of PFIZER VACCINE 00:00:00 [facility] SARS-COV-2 COVID-19 2021-09-09 Completed Unive rsity of PFIZER VACCINE 00:00:00 [facility] SARS-COV-2 COVID-19 2021-09-09 Completed Unive rsity of PFIZER VACCINE 00:00:00 [facility] SARS-COV-2 COVID-19 2021-09-09 Completed Unive rsity of PFIZER VACCINE 00:00:00 [facility] SARS-COV-2 COVID-19 2021-09-09 Completed Unive rsity of PFIZER VACCINE 00:00:00 [facility] SARS-COV-2 COVID-19 2021-09-09 Completed Unive rsity of PFIZER VACCINE 00:00:00 [facility] SARS-COV-2 COVID-19 2021-09-09 Completed Unive rsity of PFIZER VACCINE 00:00:00 [facility] SARS-COV-2 COVID-19 2021-09-09 Completed Unive rsity of PFIZER VACCINE 00:00:00 [facility] SARS-COV-2 COVID-19 2021-09-09 Completed Unive rsity of PFIZER VACCINE 00:00:00 [facility] SARS-COV-2 COVID-19 2020-10-22 Completed Unive rsity of PFIZER VACCINE 00:00:00 [facility] SARS-COV-2 COVID-19 2020-10-22 Completed Unive rsity of PFIZER VACCINE 00:00:00 [facility] SARS-COV-2 COVID-19 2020-10-22 Completed Unive rsity of PFIZER VACCINE 00:00:00 [facility] SARS-COV-2 COVID-19 2020-10-22 Completed Unive rsity of PFIZER VACCINE 00:00:00 [facility] SARS-COV-2 COVID-19 2020-10-22 Completed Unive rsity of PFIZER VACCINE 00:00:00 [facility] SARS-COV-2 COVID-19 2020-10-22 Completed Unive rsity of PFIZER VACCINE 00:00:00 [facility] SARS-COV-2 COVID-19 2020-10-22 Completed Unive rsity of PFIZER VACCINE 00:00:00 [facility] SARS-COV-2 COVID-19 2020-10-22 Completed Unive rsity of PFIZER VACCINE 00:00:00 [facility] SARS-COV-2 COVID-19 2020-10-22 Completed Unive rsity of PFIZER VACCINE 00:00:00 [facility] SARS-COV-2 COVID-19 2020-10-22 Completed Unive rsity of PFIZER VACCINE 00:00:00 [facility] SARS-COV-2 COVID-19 2020-10-22 Completed Unive rsity of PFIZER VACCINE 00:00:00 [facility] SARS-COV-2 COVID-19 2020-10-22 Completed Unive rsity of PFIZER VACCINE 00:00:00 [facility] SARS-COV-2 COVID-19 2020-10-22 Completed Unive rsity of PFIZER VACCINE 00:00:00 [facility] SARS-COV-2 COVID-19 2020-10-22 Completed Unive rsity of PFIZER VACCINE 00:00:00 [facility] SARS-COV-2 COVID-19 2020-10-22 Completed Unive rsity of PFIZER VACCINE 00:00:00 [facility] SARS-COV-2 COVID-19 2020-10-22 Completed Unive rsity of PFIZER VACCINE 00:00:00 [facility] SARS-COV-2 COVID-19 2020-10-22 Completed Unive rsity of PFIZER VACCINE 00:00:00 [facility] SARS-COV-2 COVID-19 2020-10-22 Completed Unive rsity of PFIZER VACCINE 00:00:00 [facility] SARS-COV-2 COVID-19 2020-10-22 Completed Unive rsity of PFIZER VACCINE 00:00:00 [facility] SARS-COV-2 COVID-19 2020-10-22 Completed Unive rsity of PFIZER VACCINE 00:00:00 [facility] SARS-COV-2 COVID-19 2020-10-22 Completed Unive rsity of PFIZER VACCINE 00:00:00 [facility] SARS-COV-2 COVID-19 2020-10-22 Completed Unive rsity of PFIZER VACCINE 00:00:00 [facility] SARS-COV-2 COVID-19 2020-10-22 Completed Unive rsity of PFIZER VACCINE 00:00:00 [facility] SARS-COV-2 COVID-19 2020-10-22 Completed Unive rsity of PFIZER VACCINE 00:00:00 [facility] SARS-COV-2 COVID-19 2020-10-22 Completed Unive rsity of PFIZER VACCINE 00:00:00 [facility] SARS-COV-2 COVID-19 2020-10-22 Completed Unive rsity of PFIZER VACCINE 00:00:00 [facility] SARS-COV-2 COVID-19 2020-10-22 Completed Unive rsity of PFIZER VACCINE 00:00:00 [facility] SARS-COV-2 COVID-19 2020-10-22 Completed Unive rsity of PFIZER VACCINE 00:00:00 [facility] SARS-COV-2 COVID-19 2020-10-22 Completed Unive rsity of PFIZER VACCINE 00:00:00 [facility] SARS-COV-2 COVID-19 2020-10-22 Completed Unive rsity of PFIZER VACCINE 00:00:00 [facility] SARS-COV-2 COVID-19 2020-10-22 Completed Unive rsity of PFIZER VACCINE 00:00:00 [facility] SARS-COV-2 COVID-19 2020-10-22 Completed Unive rsity of PFIZER VACCINE 00:00:00 [facility] SARS-COV-2 COVID-19 2020-10-22 Completed Unive rsity of PFIZER VACCINE 00:00:00 [facility] SARS-COV-2 COVID-19 2020-10-22 Completed Unive [facility]ity of PFIZER VACCINE 00:00:00 [facility] SARS-COV-2 COVID-19 2020-10-22 Completed Unive rsity of PFIZER VACCINE 00:00:00 [facility] SARS-COV-2 COVID-19 2020-10-22 Completed Unive rsity of PFIZER VACCINE 00:00:00 [place] [facility] SARS-COV-2 COVID-19 2020-10-22 Completed Unive rsity of PFIZER VACCINE 00:00:00 [facility] SARS-COV-2 COVID-19 2020-10-22 Completed Unive rsity of PFIZER VACCINE 00:00:00 [facility] SARS-COV-2 COVID-19 2020-10-22 Completed Unive rsity of PFIZER VACCINE 00:00:00 [facility] SARS-COV-2 COVID-19 2020-10-22 Completed Unive rsity of PFIZER VACCINE 00:00:00 [facility] SARS-COV-2 COVID-19 2020-10-22 Completed Unive rsity of PFIZER VACCINE 00:00:00 [facility] SARS-COV-2 COVID-19 2020-10-22 Completed Unive [facility]ity of PFIZER VACCINE 00:00:00 [facility] SARS-COV-2 COVID-19 2020-10-22 Completed Unive rsity of PFIZER VACCINE 00:00:00 [facility] SARS-COV-2 COVID-19 2020-10-22 Completed [facility] of PFIZER VACCINE 00:00:00 [facility] SARS-COV-2 COVID-19 2020-10-22 Completed Un[facility]ity of PFIZER VACCINE 00:00:00 [facility] SARS-COV-2 COVID-19 2020-10-22 Completed Un[facility]ity of PFIZER VACCINE 00:00:00 [facility] SARS-COV-2 COVID-19 2020-10-22 Completed Un[facility] of PFIZER VACCINE 00:00:00 [facility] SARS-COV-2 COVID-19 2020-10-22 Completed Unive rsity of PFIZER VACCINE 00:00:00 [facility] SARS-COV-2 COVID-19 2020-10-22 Completed Unive [facility]ity of PFIZER VACCINE 00:00:00 [facility] SARS-COV-2 COVID-19 2020-10-22 Completed Unive [facility]ity of PFIZER VACCINE 00:00:00 [facility] SARS-COV-2 COVID-19 2020-10-01 Completed [facility] of PFIZER VACCINE 00:00:00 [facility] SARS-COV-2 COVID-19 2020-10-01 Completed Unive rsity of PFIZER VACCINE 00:00:00 [facility] SARS-COV-2 COVID-19 2020-10-01 Completed Unive [facility]ity of PFIZER VACCINE 00:00:00 [facility] SARS-COV-2 COVID-19 2020-10-01 Completed Unive rsity of PFIZER VACCINE 00:00:00 [facility] SARS-COV-2 COVID-19 2020-10-01 Completed [facility]ive [facility]ity of PFIZER VACCINE 00:00:00 [facility] SARS-COV-2 COVID-19 2020-10-01 Completed Unive [facility] of PFIZER VACCINE 00:00:00 [facility] SARS-COV-2 COVID-19 2020-10-01 Completed [facility]ive [facility] of PFIZER VACCINE 00:00:00 [facility] SARS-COV-2 COVID-19 2020-10-01 Completed [facility]ity of PFIZER VACCINE 00:00:00 [facility] SARS-COV-2 COVID-19 2020-10-01 Completed Unive rsity of PFIZER VACCINE 00:00:00 [facility] SARS-COV-2 COVID-19 2020-10-01 Completed [facility] of PFIZER VACCINE 00:00:00 [facility] SARS-COV-2 COVID-19 2020-10-01 Completed [facility] of PFIZER VACCINE 00:00:00 [facility] SARS-COV-2 COVID-19 2020-10-01 Completed [facility] of PFIZER VACCINE 00:00:00 [facility] SARS-COV-2 COVID-19 2020-10-01 Completed [facility]ive [facility] of PFIZER VACCINE 00:00:00 [facility] SARS-COV-2 COVID-19 2020-10-01 Completed [facility]ive [facility] of PFIZER VACCINE 00:00:00 [facility] SARS-COV-2 COVID-19 2020-10-01 Completed [facility] of PFIZER VACCINE 00:00:00 [facility] SARS-COV-2 COVID-19 2020-10-01 Completed [facility] of PFIZER VACCINE 00:00:00 [facility] SARS-COV-2 COVID-19 2020-10-01 Completed [facility]ive [facility] of PFIZER VACCINE 00:00:00 [facility] SARS-COV-2 COVID-19 2020-10-01 Completed Unive [facility]ity of PFIZER VACCINE 00:00:00 [facility] SARS-COV-2 COVID-19 2020-10-01 Completed Unive [facility] of PFIZER VACCINE 00:00:00 [facility] SARS-COV-2 COVID-19 2020-10-01 Completed Unive [facility] of PFIZER VACCINE 00:00:00 [facility] SARS-COV-2 COVID-19 2020-10-01 Completed Unive [facility]ity of PFIZER VACCINE 00:00:00 [facility] SARS-COV-2 COVID-19 2020-10-01 Completed [facility]ive [facility] of PFIZER VACCINE 00:00:00 [facility] SARS-COV-2 COVID-19 2020-10-01 Completed Unive [facility]ity of PFIZER VACCINE 00:00:00 [facility] SARS-COV-2 COVID-19 2020-10-01 Completed Unive [facility] of PFIZER VACCINE 00:00:00 [facility] SARS-COV-2 COVID-19 2020-10-01 Completed [facility]ive [facility] of PFIZER VACCINE 00:00:00 [facility] SARS-COV-2 COVID-19 2020-10-01 Completed [facility] of PFIZER VACCINE 00:00:00 [facility] SARS-COV-2 COVID-19 2020-10-01 Completed Unive [facility]ity of PFIZER VACCINE 00:00:00 [facility] SARS-COV-2 COVID-19 2020-10-01 Completed Unive rsity of PFIZER VACCINE 00:00:00 [facility] SARS-COV-2 COVID-19 2020-10-01 Completed Unive [facility] of PFIZER VACCINE 00:00:00 [facility] SARS-COV-2 COVID-19 2020-10-01 Completed [facility]ive [facility] of PFIZER VACCINE 00:00:00 [facility] SARS-COV-2 COVID-19 2020-10-01 Completed Unive [facility]ity of PFIZER VACCINE 00:00:00 [facility] SARS-COV-2 COVID-19 2020-10-01 Completed Unive [facility] of PFIZER VACCINE 00:00:00 [facility] SARS-COV-2 COVID-19 2020-10-01 Completed Unive [facility]ity of PFIZER VACCINE 00:00:00 [facility] SARS-COV-2 COVID-19 2020-10-01 Completed Unive [facility] of PFIZER VACCINE 00:00:00 [facility] SARS-COV-2 COVID-19 2020-10-01 Completed [facility]ive [facility] of PFIZER VACCINE 00:00:00 [facility] SARS-COV-2 COVID-19 2020-10-01 Completed [facility] of PFIZER VACCINE 00:00:00 [facility] SARS-COV-2 COVID-19 2020-10-01 Completed [facility]ive [facility] of PFIZER VACCINE 00:00:00 [facility] SARS-COV-2 COVID-19 2020-10-01 Completed Unive [facility] of PFIZER VACCINE 00:00:00 [facility] SARS-COV-2 COVID-19 2020-10-01 Completed [facility]ive [facility] of PFIZER VACCINE 00:00:00 [facility] SARS-COV-2 COVID-19 2020-10-01 Completed Unive [facility] of PFIZER VACCINE 00:00:00 [facility] SARS-COV-2 COVID-19 2020-10-01 Completed [facility] of PFIZER VACCINE 00:00:00 [facility] SARS-COV-2 COVID-19 2020-10-01 Completed [facility]ive [facility] of PFIZER VACCINE 00:00:00 [facility] SARS-COV-2 COVID-19 2020-10-01 Completed [facility] of PFIZER VACCINE 00:00:00 [facility] [facility] SARS-COV-2 COVID-19 2020-10-01 Completed [facility] PFIZER VACCINE 00:00:00 [facility] SARS-COV-2 COVID-19 2020-10-01 Completed [facility] PFIZER VACCINE 00:00:00 [facility] SARS-COV-2 COVID-19 2020-10-01 Completed [facility] PFIZER VACCINE 00:00:00 [facility] SARS-COV-2 COVID-19 2020-10-01 Completed [facility] PFIZER VACCINE 00:00:00 [facility] SARS-COV-2 COVID-19 2020-10-01 Completed [facility] PFIZER VACCINE 00:00:00 [facility] SARS-COV-2 COVID-19 2020-10-01 Completed [facility] of PFIZER VACCINE 00:00:00 [facility] SARS-COV-2 COVID-19 2020-10-01 Completed [facility] of PFIZER VACCINE 00:00:00 [facility] Zoster Vaccine 2020-08-21 Completed [facility] of Recombinant 00:00:00 [facility] Zoster Vaccine 2020-08-21 Completed [facility] Recombinant 00:00:00 [facility] Zoster Vaccine 2020-08-21 Completed [facility] Recombinant 00:00:00 [facility] Zoster Vaccine 2020-08-21 Completed [facility] Recombinant 00:00:00 [facility] Zoster Vaccine 2020-08-21 Completed [facility] Recombinant 00:00:00 [facility] Zoster Vaccine 2020-08-21 Completed [facility] Recombinant 00:00:00 [facility] Zoster Vaccine 2020-08-21 Completed [facility] Recombinant 00:00:00 [facility] Zoster Vaccine 2020-08-21 Completed [facility] Recombinant 00:00:00 [facility] Zoster Vaccine 2020-08-21 Completed [facility] Recombinant 00:00:00 [facility] Zoster Vaccine 2020-08-21 Completed [facility] Recombinant 00:00:00 [facility] Zoster Vaccine 2020-08-21 Completed [facility] Recombinant 00:00:00 [facility] Zoster Vaccine 2020-08-21 Completed [facility] Recombinant 00:00:00 [facility] Zoster Vaccine 2020-08-21 Completed [facility] Recombinant 00:00:00 [facility] Zoster Vaccine 2020-08-21 Completed [facility] Recombinant 00:00:00 [facility] Zoster Vaccine 2020-08-21 Completed [facility] Recombinant 00:00:00 [facility] Zoster Vaccine 2020-08-21 Completed [facility] Recombinant 00:00:00 [facility] Zoster Vaccine 2020-08-21 Completed [facility] Recombinant 00:00:00 [facility] Zoster Vaccine 2020-08-21 Completed [facility] Recombinant 00:00:00 [facility] Zoster Vaccine 2020-08-21 Completed [facility] Recombinant 00:00:00 [facility] Zoster Vaccine 2020-08-21 Completed [facility] Recombinant 00:00:00 [facility] Zoster Vaccine 2020-08-21 Completed [facility] Recombinant 00:00:00 [facility] Zoster Vaccine 2020-08-21 Completed [facility] Recombinant 00:00:00 [facility] Zoster Vaccine 2020-08-21 Completed [facility] Recombinant 00:00:00 [facility] Zoster Vaccine 2020-08-21 Completed [facility] Recombinant 00:00:00 [facility] Zoster Vaccine 2020-08-21 Completed [facility] Recombinant 00:00:00 [facility] Zoster Vaccine 2020-08-21 Completed [facility] Recombinant 00:00:00 [facility] Zoster Vaccine 2020-08-21 Completed [facility] Recombinant 00:00:00 [facility] Zoster Vaccine 2020-08-21 Completed [facility] Recombinant 00:00:00 [facility] Zoster Vaccine 2020-08-21 Completed [facility] of Recombinant 00:00:00 [facility] Zoster Vaccine 2020-08-21 Completed [facility] Recombinant 00:00:00 [facility] Zoster Vaccine 2020-08-21 Completed [facility] Recombinant 00:00:00 [facility] Zoster Vaccine 2020-08-21 Completed [facility] Recombinant 00:00:00 [facility] Zoster Vaccine 2020-08-21 Completed [facility] Recombinant 00:00:00 [facility] Zoster Vaccine 2020-08-21 Completed [facility] Recombinant 00:00:00 [facility] Zoster Vaccine 2020-08-21 Completed [facility] Recombinant 00:00:00 [facility] Zoster Vaccine 2020-08-21 Completed [facility] Recombinant 00:00:00 [facility] Zoster Vaccine 2020-08-21 Completed [facility] Recombinant 00:00:00 [facility] Zoster Vaccine 2020-08-21 Completed [facility] Recombinant 00:00:00 [facility] Zoster Vaccine 2020-06-15 Completed [facility] Recombinant 00:00:00 [facility] Influenza Virus 2020-06-15 Completed [facility]it y of Vaccine Quad IM 3+ 00:00:[address] [facility] Zoster Vaccine 2020-06-15 Completed [facility] Recombinant 00:00:00 [facility] Influenza Virus 2020-06-15 Completed [facility] Vaccine Quad IM 3+ 00:00:[address] [facility] Zoster Vaccine 2020-06-15 Completed [facility] Recombinant 00:00:00 [facility] Influenza Virus 2020-06-15 Completed [facility] Vaccine Quad IM 3+ 00:00:[address] [facility] Zoster Vaccine 2020-06-15 Completed [facility] Recombinant 00:00:00 [facility] Influenza Virus 2020-06-15 Completed [facility] Vaccine Quad IM 3+ 00:00:[address] [facility] Zoster Vaccine 2020-06-15 Completed [facility] Recombinant 00:00:00 [facility] Influenza Virus 2020-06-15 Completed [facility] Vaccine Quad IM 3+ 00:00:[address] [facility] Zoster Vaccine 2020-06-15 Completed [facility] Recombinant 00:00:00 [facility] Influenza Virus 2020-06-15 Completed [facility] Vaccine Quad IM 3+ 00:00:[address] [facility] Zoster Vaccine 2020-06-15 Completed [facility] Recombinant 00:00:00 [facility] Influenza Virus 2020-06-15 Completed [facility] Vaccine Quad IM 3+ 00:00:[address] [facility] Zoster Vaccine 2020-06-15 Completed [facility] Recombinant 00:00:00 [facility] Influenza Virus 2020-06-15 Completed [facility] of Vaccine Quad IM 3+ 00:00:[address] [facility] Zoster Vaccine 2020-06-15 Completed [facility] Recombinant 00:00:00 [facility] Influenza Virus 2020-06-15 Completed [facility] of Vaccine Quad IM 3+ 00:00:[address] [facility] Zoster Vaccine 2020-06-15 Completed [facility] Recombinant 00:00:00 [facility] Influenza Virus 2020-06-15 Completed [facility] of Vaccine Quad IM 3+ 00:00:[address] [facility] Zoster Vaccine 2020-06-15 Completed [facility] Recombinant 00:00:00 [facility] Influenza Virus 2020-06-15 Completed [facility] of Vaccine Quad IM 3+ 00:00:[address] [facility] Zoster Vaccine 2020-06-15 Completed [facility] Recombinant 00:00:00 [facility] Influenza Virus 2020-06-15 Completed [facility] Vaccine Quad IM 3+ 00:00:[address] [facility] Zoster Vaccine 2020-06-15 Completed [facility] Recombinant 00:00:00 [facility] Influenza Virus 2020-06-15 Completed [facility] of Vaccine Quad IM 3+ 00:00:[address] [facility] Zoster Vaccine 2020-06-15 Completed [facility] Recombinant 00:00:00 [facility] Influenza Virus 2020-06-15 Completed [facility] Vaccine Quad IM 3+ 00:00:[address] [facility] Zoster Vaccine 2020-06-15 Completed [facility] Recombinant 00:00:00 [facility] Influenza Virus 2020-06-15 Completed [facility] Vaccine Quad IM 3+ 00:00:[address] [facility] Zoster Vaccine 2020-06-15 Completed [facility] Recombinant 00:00:00 [facility] Influenza Virus 2020-06-15 Completed [facility] of Vaccine Quad IM 3+ 00:00:[address] [facility] Zoster Vaccine 2020-06-15 Completed [facility] Recombinant 00:00:00 [facility] Influenza Virus 2020-06-15 Completed [facility] Vaccine Quad IM 3+ 00:00:[address] [facility] Zoster Vaccine 2020-06-15 Completed [facility] Recombinant 00:00:00 [facility] Influenza Virus 2020-06-15 Completed [facility] of Vaccine Quad IM 3+ 00:00:[address] [facility] Zoster Vaccine 2020-06-15 Completed [facility] Recombinant 00:00:00 [facility] Influenza Virus 2020-06-15 Completed [facility] of Vaccine Quad IM 3+ 00:00:[address] [facility] Zoster Vaccine 2020-06-15 Completed [facility] Recombinant 00:00:00 [facility] Influenza Virus 2020-06-15 Completed [facility] Vaccine Quad IM 3+ 00:00:[address] [facility] Zoster Vaccine 2020-06-15 Completed [facility] Recombinant 00:00:00 [facility] Influenza Virus 2020-06-15 Completed [facility] of Vaccine Quad IM 3+ 00:00:[address] [facility] Zoster Vaccine 2020-06-15 Completed [facility] Recombinant 00:00:00 [facility] Influenza Virus 2020-06-15 Completed [facility] of Vaccine Quad IM 3+ 00:00:[address] [facility] Zoster Vaccine 2020-06-15 Completed [facility] Recombinant 00:00:00 [facility] Influenza Virus 2020-06-15 Completed [facility] Vaccine Quad IM 3+ 00:00:[address] [facility] Zoster Vaccine 2020-06-15 Completed [facility] Recombinant 00:00:00 [facility] Influenza Virus 2020-06-15 Completed [facility] of Vaccine Quad IM 3+ 00:00:[address] [facility] Zoster Vaccine 2020-06-15 Completed [facility] Recombinant 00:00:00 [facility] Influenza Virus 2020-06-15 Completed [facility] of Vaccine Quad IM 3+ 00:00:[address] [facility] Zoster Vaccine 2020-06-15 Completed [facility] Recombinant 00:00:00 [facility] Influenza Virus 2020-06-15 Completed [facility] Vaccine Quad IM 3+ 00:00:[address] [facility] Zoster Vaccine 2020-06-15 Completed [facility] Recombinant 00:00:00 [facility] Influenza Virus 2020-06-15 Completed [facility] of Vaccine Quad IM 3+ 00:00:[address] [facility] Zoster Vaccine 2020-06-15 Completed [facility] Recombinant 00:00:00 [facility] Influenza Virus 2020-06-15 Completed [facility] of Vaccine Quad IM 3+ 00:00:[address] [facility] Zoster Vaccine 2020-06-15 Completed [facility] Recombinant 00:00:00 [facility] Influenza Virus 2020-06-15 Completed [facility] Vaccine Quad IM 3+ 00:00:[address] [facility] Zoster Vaccine 2020-06-15 Completed [facility] Recombinant 00:00:00 [facility] Influenza Virus 2020-06-15 Completed [facility] of Vaccine Quad IM 3+ 00:00:[address] [facility] Zoster Vaccine 2020-06-15 Completed [facility] Recombinant 00:00:00 [facility] Influenza Virus 2020-06-15 Completed [facility] Vaccine Quad IM 3+ 00:00:[address] [facility] Zoster Vaccine 2020-06-15 Completed [facility] Recombinant 00:00:00 [facility] Influenza Virus 2020-06-15 Completed [facility] Vaccine Quad IM 3+ 00:00:[address] [facility] Zoster Vaccine 2020-06-15 Completed [facility] Recombinant 00:00:00 [facility] Influenza Virus 2020-06-15 Completed [facility] Vaccine Quad IM 3+ 00:00:[address] [facility] Zoster Vaccine 2020-06-15 Completed [facility] Recombinant 00:00:00 [facility] Influenza Virus 2020-06-15 Completed [facility] Vaccine Quad IM 3+ 00:00:[address] [facility] Zoster Vaccine 2020-06-15 Completed [facility] Recombinant 00:00:00 [facility] Influenza Virus 2020-06-15 Completed [facility] of Vaccine Quad IM 3+ 00:00:[address] [facility] Zoster Vaccine 2020-06-15 Completed [facility] Recombinant 00:00:00 [facility] Influenza Virus 2020-06-15 Completed [facility] Vaccine Quad IM 3+ 00:00:[address] [facility] Zoster Vaccine 2020-06-15 Completed [facility] Recombinant 00:00:00 [facility] Influenza Virus 2020-06-15 Completed [facility] of Vaccine Quad IM 3+ 00:00:[address] [facility] Zoster Vaccine 2020-06-15 Completed [facility] Recombinant 00:00:00 [facility] Influenza Virus 2020-06-15 Completed [facility] Vaccine Quad IM 3+ 00:00:00 [facility] Influenza Virus 2019-07-25 Completed [facility] Vaccine Quad .5 mL 00:00:00 [facility] Influenza Virus 2019-07-25 Completed [facility] Vaccine Quad .5 mL 00:00:00 [facility] Influenza Virus 2019-07-25 Completed [facility] Vaccine Quad .5 mL 00:00:00 [facility] Influenza Virus 2019-07-25 Completed [facility] Vaccine Quad .5 mL 00:00:00 [facility] Influenza Virus 2019-07-25 Completed [facility] Vaccine Quad .5 mL 00:00:00 [facility] Influenza Virus 2019-07-25 Completed [facility] Vaccine Quad .5 mL 00:00:00 [facility] Influenza Virus 2019-07-25 Completed [facility] Vaccine Quad .5 mL 00:00:00 [facility] Influenza Virus 2019-07-25 Completed [facility] Vaccine Quad .5 mL 00:00:00 [facility] Influenza Virus 2019-07-25 Completed [facility] Vaccine Quad .5 mL 00:00:00 [facility] Influenza Virus 2019-07-25 Completed [facility] Vaccine Quad .5 mL 00:00:00 [facility] Influenza Virus 2019-07-25 Completed [facility] Vaccine Quad .5 mL 00:00:00 [facility] Influenza Virus 2019-07-25 Completed [facility] Vaccine Quad .5 mL 00:00:00 [facility] Influenza Virus 2019-07-25 Completed [facility] Vaccine Quad .5 mL 00:00:00 [facility] Influenza Virus 2019-07-25 Completed [facility] Vaccine Quad .5 mL 00:00:00 [facility] Influenza Virus 2019-07-25 Completed [facility] Vaccine Quad .5 mL 00:00:00 [facility] Influenza Virus 2019-07-25 Completed [facility] Vaccine Quad .5 mL 00:00:00 [facility] Influenza Virus 2019-07-25 Completed [facility] Vaccine Quad .5 mL 00:00:00 [facility] Influenza Virus 2019-07-25 Completed [facility] Vaccine Quad .5 mL 00:00:00 [facility] Influenza Virus 2019-07-25 Completed [facility] Vaccine Quad .5 mL 00:00:00 [facility] Influenza Virus 2019-07-25 Completed [facility] Vaccine Quad .5 mL 00:00:00 [facility] Influenza Virus 2019-07-25 Completed [facility] Vaccine Quad .5 mL 00:00:00 [facility] Influenza Virus 2019-07-25 Completed [facility] Vaccine Quad .5 mL 00:00:00 [facility] Influenza Virus 2019-07-25 Completed [facility] Vaccine Quad .5 mL 00:00:00 [facility] Influenza Virus 2019-07-25 Completed [facility] Vaccine Quad .5 mL 00:00:00 [facility] Influenza Virus 2019-07-25 Completed [facility] Vaccine Quad .5 mL 00:00:00 [facility] Influenza Virus 2019-07-25 Completed [facility] Vaccine Quad .5 mL 00:00:00 [facility] Influenza Virus 2019-07-25 Completed [facility] Vaccine Quad .5 mL 00:00:00 [facility] Influenza Virus 2019-07-25 Completed [facility] Vaccine Quad .5 mL 00:00:00 [facility] Influenza Virus 2019-07-25 Completed [facility] Vaccine Quad .5 mL 00:00:00 [facility] Influenza Virus 2019-07-25 Completed [facility] Vaccine Quad .5 mL 00:00:00 [facility] Influenza Virus 2019-07-25 Completed [facility] Vaccine Quad .5 mL 00:00:00 [facility] Influenza Virus 2019-07-25 Completed [facility] Vaccine Quad .5 mL 00:00:00 [facility] Influenza Virus 2019-07-25 Completed [facility] Vaccine Quad .5 mL 00:00:00 [facility] Influenza Virus 2019-07-25 Completed [facility] Vaccine Quad .5 mL 00:00:00 [facility] Influenza Virus 2019-07-25 Completed [facility] Vaccine Quad .5 mL 00:00:00 [facility] Influenza Virus 2019-07-25 Completed [facility] Vaccine Quad .5 mL 00:00:00 [facility] Influenza Virus 2019-07-25 Completed [facility] Vaccine Quad .5 mL 00:00:00 [facility] Influenza Virus 2019-07-25 Completed [facility] Vaccine Quad .5 mL 00:00:00 [facility] Influenza Virus 2018-07-10 Completed [facility] Vaccine Quad .5 mL 00:00:00 [facility] Influenza Virus 2018-07-10 Completed [facility] Vaccine Quad .5 mL 00:00:00 [facility] Influenza Virus 2018-07-10 Completed [facility] Vaccine Quad .5 mL 00:00:00 [facility] Influenza Virus 2018-07-10 Completed [facility] Vaccine Quad .5 mL 00:00:00 [facility] Influenza Virus 2018-07-10 Completed [facility] Vaccine Quad .5 mL 00:00:00 [facility] Influenza Virus 2018-07-10 Completed [facility] Vaccine Quad .5 mL 00:00:00 [facility] Influenza Virus 2018-07-10 Completed [facility] Vaccine Quad .5 mL 00:00:00 [facility] Influenza Virus 2018-07-10 Completed [facility] Vaccine Quad .5 mL 00:00:00 [facility] Influenza Virus 2018-07-10 Completed [facility] Vaccine Quad .5 mL 00:00:00 [facility] Influenza Virus 2018-07-10 Completed [facility] Vaccine Quad .5 mL 00:00:00 [facility] Influenza Virus 2018-07-10 Completed [facility] Vaccine Quad .5 mL 00:00:00 [facility] Influenza Virus 2018-07-10 Completed [facility] Vaccine Quad .5 mL 00:00:00 [facility] Influenza Virus 2018-07-10 Completed [facility] Vaccine Quad .5 mL 00:00:00 [facility] Influenza Virus 2018-07-10 Completed [facility] Vaccine Quad .5 mL 00:00:00 [facility] Influenza Virus 2018-07-10 Completed [facility] Vaccine Quad .5 mL 00:00:00 [facility] Influenza Virus 2018-07-10 Completed [facility] Vaccine Quad .5 mL 00:00:00 [facility] Influenza Virus 2018-07-10 Completed [facility] Vaccine Quad .5 mL 00:00:00 [facility] Influenza Virus 2018-07-10 Completed [facility] Vaccine Quad .5 mL 00:00:00 [facility] Influenza Virus 2018-07-10 Completed [facility] Vaccine Quad .5 mL 00:00:00 [facility] Influenza Virus 2018-07-10 Completed [facility] Vaccine Quad .5 mL 00:00:00 [facility] Influenza Virus 2018-07-10 Completed [facility] Vaccine Quad .5 mL 00:00:00 [facility] Influenza Virus 2018-07-10 Completed [facility] Vaccine Quad .5 mL 00:00:00 [facility] Influenza Virus 2018-07-10 Completed [facility] Vaccine Quad .5 mL 00:00:00 [facility] Influenza Virus 2018-07-10 Completed [facility] Vaccine Quad .5 mL 00:00:00 [facility] Influenza Virus 2018-07-10 Completed [facility] Vaccine Quad .5 mL 00:00:00 [facility] Influenza Virus 2018-07-10 Completed [facility] Vaccine Quad .5 mL 00:00:00 [facility] Influenza Virus 2018-07-10 Completed [facility] Vaccine Quad .5 mL 00:00:00 [facility] Influenza Virus 2018-07-10 Completed [facility] Vaccine Quad .5 mL 00:00:00 [facility] Influenza Virus 2018-07-10 Completed [facility] Vaccine Quad .5 mL 00:00:00 [facility] Influenza Virus 2018-07-10 Completed [facility] Vaccine Quad .5 mL 00:00:00 [facility] Influenza Virus 2018-07-10 Completed [facility] Vaccine Quad .5 mL 00:00:00 [facility] Influenza Virus 2018-07-10 Completed [facility] Vaccine Quad .5 mL 00:00:00 [facility] Influenza Virus 2018-07-10 Completed [facility] Vaccine Quad .5 mL 00:00:00 [facility] Influenza Virus 2018-07-10 Completed [facility] Vaccine Quad .5 mL 00:00:00 [facility] Influenza Virus 2018-07-10 Completed [facility] Vaccine Quad .5 mL 00:00:00 [facility] Influenza Virus 2018-07-10 Completed [facility] Vaccine Quad .5 mL 00:00:00 [facility] Influenza Virus 2018-07-10 Completed [facility] Vaccine Quad .5 mL 00:00:00 [facility] Influenza Virus 2018-07-10 Completed [facility] Vaccine Quad .5 mL 00:00:00 [facility] 6[facility] Influenza Virus 2017-06-06 Completed [facility] of Vaccine Quad IM 3+ 00:00:[address] [facility] Pneumococcal 13 2017-06-06 Completed [facility]it y of Conjugate, PCV13 00:00:00 [facility] dical (Prevnar 13) Branch Zoster(Zostavax)( 2017-06-06 Completed [facility]ive [facility] of ingles) 00:00:00 [facility] Influenza Virus 2017-06-06 Completed [facility] of Vaccine Quad IM 3+ 00:00:[address] [facility] Pneumococcal 13 2017-06-06 Completed [facility] of Conjugate, PCV13 00:00:00 [facility] dical (Prevnar 13) Branch Zoster(Zostavax)( 2017-06-06 Completed [facility] of ingles) 00:00:00 [facility] Influenza Virus 2017-06-06 Completed [facility] of Vaccine Quad IM 3+ 00:00:[address] [facility] Pneumococcal 13 2017-06-06 Completed [facility] of Conjugate, PCV13 00:00:00 [facility] dical (Prevnar 13) Branch Zoster(Zostavax)( 2017-06-06 Completed [facility] of ingles) 00:00:00 [facility] Influenza Virus 2017-06-06 Completed [facility] of Vaccine Quad IM 3+ 00:00:[address] [facility] Pneumococcal 13 2017-06-06 Completed [facility] Conjugate, PCV13 00:00:00 [facility] (Prevnar 13) [facility] Zoster(Zostavax)( 2017-06-06 Completed [facility] of ingles) 00:00:00 [facility] Influenza Virus 2017-06-06 Completed [facility] of Vaccine Quad IM 3+ 00:00:[address] [facility] Pneumococcal 13 2017-06-06 Completed [facility] Conjugate, PCV13 00:00:00 [facility] (Prevnar 13) [facility] Zoster(Zostavax)( 2017-06-06 Completed [facility] of ingles) 00:00:00 [facility] Influenza Virus 2017-06-06 Completed [facility] of Vaccine Quad IM 3+ 00:00:[address] [facility] Pneumococcal 13 2017-06-06 Completed [facility] of Conjugate, PCV13 00:00:00 [facility] (Prevnar 13) [facility] Zoster(Zostavax)( 2017-06-06 Completed [facility] of ingles) 00:00:00 [facility] Influenza Virus 2017-06-06 Completed [facility] of Vaccine Quad IM 3+ 00:00:[address] [facility] Pneumococcal 13 2017-06-06 Completed [facility] of Conjugate, PCV13 00:00:00 [facility] dical (Prevnar 13) Branch Zoster(Zostavax)( 2017-06-06 Completed [facility] of ingles) 00:00:00 [facility] Influenza Virus 2017-06-06 Completed [facility] of Vaccine Quad IM 3+ 00:00:[address] [facility] Pneumococcal 13 2017-06-06 Completed [facility] of Conjugate, PCV13 00:00:00 [facility] (Prevnar 13) [facility] Zoster(Zostavax)( 2017-06-06 Completed [facility] of ingles) 00:00:00 [facility] Influenza Virus 2017-06-06 Completed [facility] of Vaccine Quad IM 3+ 00:00:[address] [facility] Pneumococcal 13 2017-06-06 Completed [facility] of Conjugate, PCV13 00:00:00 [facility] (Prevnar 13) [facility] Zoster(Zostavax)( 2017-06-06 Completed [facility] of ingles) 00:00:00 [facility] Influenza Virus 2017-06-06 Completed [facility] of Vaccine Quad IM 3+ 00:00:[address] [facility] Pneumococcal 13 2017-06-06 Completed [facility] of Conjugate, PCV13 00:00:00 [facility] (Prevnar 13) Branch Zoster(Zostavax)( 2017-06-06 Completed [facility] of ingles) 00:00:00 [facility] Influenza Virus 2017-06-06 Completed [facility] of Vaccine Quad IM 3+ 00:00:[address] [facility] Pneumococcal 13 2017-06-06 Completed [facility]it [facility] of Conjugate, PCV13 00:00:00 [facility] dical (Prevnar 13) Branch Zoster(Zostavax)( 2017-06-06 Completed [facility] ingles) 00:00:00 [facility] Influenza Virus 2017-06-06 Completed [facility] Vaccine Quad IM 3+ 00:00:[address] [facility] Pneumococcal 13 2017-06-06 Completed [facility] of Conjugate, PCV13 00:00:00 [facility] dical (Prevnar 13) Branch Zoster(Zostavax)( 2017-06-06 Completed [facility] ingles) 00:00:00 [facility] Influenza Virus 2017-06-06 Completed [facility] Vaccine Quad IM 3+ 00:00:[address] [facility] Pneumococcal 13 2017-06-06 Completed [facility] of Conjugate, PCV13 00:00:00 [facility] dical (Prevnar 13) Branch Zoster(Zostavax)( 2017-06-06 Completed [facility] ingles) 00:00:00 [facility] Influenza Virus 2017-06-06 Completed [facility] Vaccine Quad IM 3+ 00:00:[address] [facility] Pneumococcal 13 2017-06-06 Completed [facility] of Conjugate, PCV13 00:00:00 [facility] dical (Prevnar 13) Branch Zoster(Zostavax)( 2017-06-06 Completed [facility] ingles) 00:00:00 [facility] Influenza Virus 2017-06-06 Completed [facility] Vaccine Quad IM 3+ 00:00:[address] [facility] Pneumococcal 13 2017-06-06 Completed [facility] Conjugate, PCV13 00:00:00 [place] [facility] (Prevnar 13) Branch Zoster(Zostavax)( 2017-06-06 Completed [facility] ingles) 00:00:00 [facility] Influenza Virus 2017-06-06 Completed [facility] Vaccine Quad IM 3+ 00:00:[address] [facility] Pneumococcal 13 2017-06-06 Completed [facility] Conjugate, PCV13 00:00:00 [place] [facility] (Prevnar 13) Branch Zoster(Zostavax)( 2017-06-06 Completed [facility] ingles) 00:00:00 [facility] Influenza Virus 2017-06-06 Completed [facility] Vaccine Quad IM 3+ 00:00:[address] [facility] Pneumococcal 13 2017-06-06 Completed [facility] of Conjugate, PCV13 00:00:00 [facility] dical (Prevnar 13) Branch Zoster(Zostavax)( 2017-06-06 Completed [facility] ingles) 00:00:00 [facility] Influenza Virus 2017-06-06 Completed [facility] Vaccine Quad IM 3+ 00:00:[address] [facility] Pneumococcal 13 2017-06-06 Completed [facility] of Conjugate, PCV13 00:00:00 [facility] dical (Prevnar 13) Branch Zoster(Zostavax)( 2017-06-06 Completed [facility] ingles) 00:00:00 [facility] Influenza Virus 2017-06-06 Completed [facility] Vaccine Quad IM 3+ 00:00:[address] [facility] Pneumococcal 13 2017-06-06 Completed [facility] Conjugate, PCV13 00:00:00 [place] [facility] (Prevnar 13) Branch Zoster(Zostavax)( 2017-06-06 Completed [facility] ingles) 00:00:00 [facility] Influenza Virus 2017-06-06 Completed [facility] Vaccine Quad IM 3+ 00:00:[address] [facility] Pneumococcal 13 2017-06-06 Completed [facility] of Conjugate, PCV13 00:00:00 [facility] dical (Prevnar 13) Branch Zoster(Zostavax)( 2017-06-06 Completed [facility] ingles) 00:00:00 [facility] Influenza Virus 2017-06-06 Completed [facility] Vaccine Quad IM 3+ 00:00:[address] [facility] Pneumococcal 13 2017-06-06 Completed [facility] Conjugate, PCV13 00:00:00 [place] [facility] (Prevnar 13) Branch Zoster(Zostavax)( 2017-06-06 Completed [facility] ingles) 00:00:00 [facility] Influenza Virus 2017-06-06 Completed [facility] Vaccine Quad IM 3+ 00:00:[address] [facility] Pneumococcal 13 2017-06-06 Completed [facility] Conjugate, PCV13 00:00:00 [place] [facility] (Prevnar 13) Branch Zoster(Zostavax)( 2017-06-06 Completed [facility] ingles) 00:00:00 [facility] Influenza Virus 2017-06-06 Completed [facility] of Vaccine Quad IM 3+ 00:00:[address] [facility] Pneumococcal 13 2017-06-06 Completed [facility] of Conjugate, PCV13 00:00:00 [facility] dical (Prevnar 13) Branch Zoster(Zostavax)( 2017-06-06 Completed [facility] ingles) 00:00:00 [facility] Influenza Virus 2017-06-06 Completed [facility] Vaccine Quad IM 3+ 00:00:[address] [facility] Pneumococcal 13 2017-06-06 Completed [facility] of Conjugate, PCV13 00:00:00 [facility] dical (Prevnar 13) Branch Zoster(Zostavax)( 2017-06-06 Completed [facility]ive rs[facility] of ingmary alice) 00:00:00 [facility] Influenza Virus 2017-06-06 Completed [facility] of Vaccine Quad IM 3+ 00:00:[address] [facility] Pneumococcal 13 2017-06-06 Completed [facility] of Conjugate, PCV13 00:00:00 [place] [facility] (Prevnar 13) Branch Zoster(Zostavax)( 2017-06-06 Completed [facility] ingles) 00:00:00 [facility] Influenza Virus 2017-06-06 Completed [facility] of Vaccine Quad IM 3+ 00:00:[address] [facility] Pneumococcal 13 2017-06-06 Completed [facility] of Conjugate, PCV13 00:00:00 [place] [facility] (Prevnar 13) Branch Zoster(Zostavax)( 2017-06-06 Completed [facility] ingles) 00:00:00 [facility] Influenza Virus 2017-06-06 Completed [facility] of Vaccine Quad IM 3+ 00:00:[address] [facility] Pneumococcal 13 2017-06-06 Completed [facility] of Conjugate, PCV13 00:00:00 [place] [facility] (Prevnar 13) Branch Zoster(Zostavax)( 2017-06-06 Completed [facility] ingles) 00:00:00 [facility] Influenza Virus 2017-06-06 Completed [facility] Vaccine Quad IM 3+ 00:00:[address] [facility] Pneumococcal 13 2017-06-06 Completed [facility] of Conjugate, PCV13 00:00:00 [facility] dical (Prevnar 13) Branch Zoster(Zostavax)( 2017-06-06 Completed [facility] ingles) 00:00:00 [facility] Influenza Virus 2017-06-06 Completed [facility] Vaccine Quad IM 3+ 00:00:[address] [facility] Pneumococcal 13 2017-06-06 Completed [facility] of Conjugate, PCV13 00:00:00 [facility] dical (Prevnar 13) Branch Zoster(Zostavax)( 2017-06-06 Completed [facility] ingles) 00:00:00 [facility] Influenza Virus 2017-06-06 Completed [facility] of Vaccine Quad IM 3+ 00:00:[address] [facility] Pneumococcal 13 2017-06-06 Completed [facility] of Conjugate, PCV13 00:00:00 [facility] dical (Prevnar 13) Branch Zoster(Zostavax)( 2017-06-06 Completed [facility] ingles) 00:00:00 [facility] Influenza Virus 2017-06-06 Completed [facility] of Vaccine Quad IM 3+ 00:00:[address] [facility] Pneumococcal 13 2017-06-06 Completed [facility] of Conjugate, PCV13 00:00:00 [place] [facility] (Prevnar 13) Branch Zoster(Zostavax)( 2017-06-06 Completed [facility] ingles) 00:00:00 [facility] Influenza Virus 2017-06-06 Completed [facility] of Vaccine Quad IM 3+ 00:00:[address] [facility] Pneumococcal 13 2017-06-06 Completed [facility] of Conjugate, PCV13 00:00:00 [place] [facility] (Prevnar 13) Branch Zoster(Zostavax)( 2017-06-06 Completed [facility] ingles) 00:00:00 [facility] Influenza Virus 2017-06-06 Completed [facility] of Vaccine Quad IM 3+ 00:00:[address] [facility] Pneumococcal 13 2017-06-06 Completed [facility] of Conjugate, PCV13 00:00:00 [facility] dical (Prevnar 13) Branch Zoster(Zostavax)( 2017-06-06 Completed [facility] ingles) 00:00:00 [facility] Influenza Virus 2017-06-06 Completed [facility] of Vaccine Quad IM 3+ 00:00:[address] [facility] Pneumococcal 13 2017-06-06 Completed [facility] of Conjugate, PCV13 00:00:00 [facility] dical (Prevnar 13) Branch Zoster(Zostavax)( 2017-06-06 Completed [facility] ingles) 00:00:00 [facility] Influenza Virus 2017-06-06 Completed [facility] of Vaccine Quad IM 3+ 00:00:[address] [facility] Pneumococcal 13 2017-06-06 Completed [facility] of Conjugate, PCV13 00:00:00 [facility] dical (Prevnar 13) Branch Zoster(Zostavax)( 2017-06-06 Completed [facility] ingles) 00:00:00 [facility] Influenza Virus 2017-06-06 Completed [facility] of Vaccine Quad IM 3+ 00:00:[address] [facility] Pneumococcal 13 2017-06-06 Completed [facility] of Conjugate, PCV13 00:00:00 [facility] dical (Prevnar 13) Branch Zoster(Zostavax)( 2017-06-06 Completed [facility] of ingles) 00:00:00 [facility] Influenza Virus 2017-06-06 Completed [facility] of Vaccine Quad IM 3+ 00:00:[address] [facility] Pneumococcal 13 2017-06-06 Completed [facility] of Conjugate, PCV13 00:00:00 [facility] dical (Prevnar 13) Branch Zoster(Zostavax)( 2017-06-06 Completed [facility] of ingles) 00:00:00 [facility] Influenza Virus 2017-06-06 Completed [facility] of Vaccine Quad IM 3+ 00:00:[address] [facility] Pneumococcal 13 2017-06-06 Completed [facility] of Conjugate, PCV13 00:00:00 [place] [facility] (Prevnar 13) Branch Zoster(Zostavax)( 2017-06-06 Completed [facility] ingles) 00:00:00 [facility] Influenza Virus 2017-06-06 Completed [facility] of Vaccine Quad IM 3+ 00:00:[address] [facility] Pneumococcal 13 2017-06-06 Completed [facility] of Conjugate, PCV13 00:00:00 [place] [facility] (Prevnar 13) Branch Zoster(Zostavax)( 2017-06-06 Completed [facility] ingles) 00:00:00 [facility] Influenza Virus 2017-06-06 Completed [facility] of Vaccine Quad IM 3+ 00:00:[address] [facility] Pneumococcal 13 2017-06-06 Completed [facility] of Conjugate, PCV13 00:00:00 [place] [facility] (Prevnar 13) Branch Zoster(Zostavax)( 2017-06-06 Completed [facility] ingles) 00:00:00 [facility] Influenza Virus 2017-06-06 Completed [facility] of Vaccine Quad IM 3+ 00:00:[address] [facility] Pneumococcal 13 2017-06-06 Completed [facility] of Conjugate, PCV13 00:00:00 [facility] dical (Prevnar 13) Branch Zoster(Zostavax)( 2017-06-06 Completed [facility] of ingles) 00:00:00 [facility] Influenza Virus 2017-06-06 Completed [facility] of Vaccine Quad IM 3+ 00:00:[address] [facility] Pneumococcal 13 2017-06-06 Completed [facility] of Conjugate, PCV13 00:00:00 [place] [facility] (Prevnar 13) Branch Zoster(Zostavax)( 2017-06-06 Completed [facility] of ingles) 00:00:00 [facility] Influenza Virus 2017-06-06 Completed [facility] of Vaccine Quad IM 3+ 00:00:[address] [facility] Pneumococcal 13 2017-06-06 Completed [facility] of Conjugate, PCV13 00:00:00 [place] [facility] (Prevnar 13) Branch Zoster(Zostavax)( 2017-06-06 Completed [facility] of ingles) 00:00:00 [facility] Influenza Virus 2017-06-06 Completed [facility] of Vaccine Quad IM 3+ 00:00:[address] [facility] Pneumococcal 13 2017-06-06 Completed [facility] of Conjugate, PCV13 00:00:00 [place] [facility] (Prevnar 13) Branch Zoster(Zostavax)( 2017-06-06 Completed [facility] of ingles) 00:00:00 [facility] Influenza Virus 2017-06-06 Completed [facility] of Vaccine Quad IM 3+ 00:00:[address] [facility] Pneumococcal 13 2017-06-06 Completed [facility] of Conjugate, PCV13 00:00:00 [facility] dical (Prevnar 13) Branch Zoster(Zostavax)( 2017-06-06 Completed [facility] of ingles) 00:00:00 [facility] Influenza Virus 2017-06-06 Completed [facility] of Vaccine Quad IM 3+ 00:00:[address] [facility] Pneumococcal 13 2017-06-06 Completed [facility] of Conjugate, PCV13 00:00:00 [facility] dical (Prevnar 13) Branch Zoster(Zostavax)( 2017-06-06 Completed [facility] of ingles) 00:00:00 [facility] Influenza Virus 2017-06-06 Completed [facility] of Vaccine Quad IM 3+ 00:00:[address] [facility] Pneumococcal 13 2017-06-06 Completed [facility] of Conjugate, PCV13 00:00:00 [facility] dical (Prevnar 13) Branch Zoster(Zostavax)( 2017-06-06 Completed [facility] of ingles) 00:00:00 [facility] Influenza Virus 2017-06-06 Completed [facility] of Vaccine Quad IM 3+ 00:00:[address] [facility] Pneumococcal 13 2017-06-06 Completed [facility] of Conjugate, PCV13 00:00:00 [facility] dical (Prevnar 13) Branch Zoster(Zostavax)( 2017-06-06 Completed [facility] of ingles) 00:00:00 [facility] Influenza Virus 2017-06-06 Completed [facility] of Vaccine Quad IM 3+ 00:00:[address] [facility] Pneumococcal 13 2017-06-06 Completed [facility] of Conjugate, PCV13 00:00:00 [facility] dical (Prevnar 13) Branch Zoster(Zostavax)( 2017-06-06 Completed [facility] rs[facility] of ingles) 00:00:00 [facility] Influenza Virus 2017-06-06 Completed [facility] of Vaccine Quad IM 3+ 00:00:[address] [facility] Pneumococcal 13 2017-06-06 Completed [facility] of Conjugate, PCV13 00:00:00 [facility] dical (Prevnar 13) Branch Zoster(Zostavax)( 2017-06-06 Completed [facility] of ingles) 00:00:00 [facility] Influenza Virus 2016-06-15 Completed [facility] of Vaccine Quad IM 3+ 00:00:[address] [facility] Pneumococcal 2016-06-15 Completed University o f Polysaccharide, 00:00:00 [facility] ical PPSV23 (PNEUMOVAX) Branch Influenza Virus 2016-06-15 Completed [facility] y of Vaccine Quad IM 3+ 00:00:[address] [facility] Pneumococcal 2016-06-15 Completed University o f Polysaccharide, 00:00:00 [facility] PPSV23 (PNEUMOVAX) Branch Influenza Virus 2016-06-15 Completed [facility] of Vaccine Quad IM 3+ 00:00:[address] [facility] Pneumococcal 2016-06-15 Completed [facility] o f Polysaccharide, 00:00:00 [place] [facility] PPSV23 (PNEUMOVAX) Branch Influenza Virus 2016-06-15 Completed [facility] of Vaccine Quad IM 3+ 00:00:[address] [facility] Pneumococcal 2016-06-15 Completed [facility] o f Polysaccharide, 00:00:00 [place] [facility] PPSV23 (PNEUMOVAX) Branch Influenza Virus 2016-06-15 Completed [facility] of Vaccine Quad IM 3+ 00:00:[address] [facility] Pneumococcal 2016-06-15 Completed [facility] o f Polysaccharide, 00:00:00 [place] [facility] PPSV23 (PNEUMOVAX) Branch Influenza Virus 2016-06-15 Completed [facility] of Vaccine Quad IM 3+ 00:00:[address] [facility] Pneumococcal 2016-06-15 Completed [facility] o f Polysaccharide, 00:00:00 [place] [facility] PPSV23 (PNEUMOVAX) Branch Influenza Virus 2016-06-15 Completed [facility] of Vaccine Quad IM 3+ 00:00:[address] [facility] Pneumococcal 2016-06-15 Completed [facility] o f Polysaccharide, 00:00:00 [place] [facility] PPSV23 (PNEUMOVAX) Branch Influenza Virus 2016-06-15 Completed [facility] of Vaccine Quad IM 3+ 00:00:[address] [facility] Pneumococcal 2016-06-15 Completed [facility] o f Polysaccharide, 00:00:00 [place] [facility] PPSV23 (PNEUMOVAX) Branch Influenza Virus 2016-06-15 Completed [facility] of Vaccine Quad IM 3+ 00:00:[address] [facility] Pneumococcal 2016-06-15 Completed [facility] o f Polysaccharide, 00:00:00 [place] [facility] PPSV23 (PNEUMOVAX) Branch Influenza Virus 2016-06-15 Completed [facility] of Vaccine Quad IM 3+ 00:00:[address] [facility] Pneumococcal 2016-06-15 Completed [facility] o f Polysaccharide, 00:00:00 [place] [facility] PPSV23 (PNEUMOVAX) Branch Influenza Virus 2016-06-15 Completed [facility] of Vaccine Quad IM 3+ 00:00:[address] [facility] Pneumococcal 2016-06-15 Completed [facility] o f Polysaccharide, 00:00:00 [place] [facility] PPSV23 (PNEUMOVAX) Branch Influenza Virus 2016-06-15 Completed [facility] of Vaccine Quad IM 3+ 00:00:[address] [facility] Pneumococcal 2016-06-15 Completed [facility] o f Polysaccharide, 00:00:00 [place] [facility] PPSV23 (PNEUMOVAX) Branch Influenza Virus 2016-06-15 Completed [facility] of Vaccine Quad IM 3+ 00:00:[address] [facility] Pneumococcal 2016-06-15 Completed [facility] o f Polysaccharide, 00:00:00 [place] [facility] PPSV23 (PNEUMOVAX) Branch Influenza Virus 2016-06-15 Completed [facility] of Vaccine Quad IM 3+ 00:00:[address] [facility] Pneumococcal 2016-06-15 Completed [facility] o f Polysaccharide, 00:00:00 [place] [facility] PPSV23 (PNEUMOVAX) Branch Influenza Virus 2016-06-15 Completed [facility] of Vaccine Quad IM 3+ 00:00:[address] [facility] Pneumococcal 2016-06-15 Completed [facility] o f Polysaccharide, 00:00:00 [place] [facility] PPSV23 (PNEUMOVAX) Branch Influenza Virus 2016-06-15 Completed [facility] of Vaccine Quad IM 3+ 00:00:[address] [facility] Pneumococcal 2016-06-15 Completed [facility] o f Polysaccharide, 00:00:00 [place] [facility] PPSV23 (PNEUMOVAX) Branch Influenza Virus 2016-06-15 Completed [facility] of Vaccine Quad IM 3+ 00:00:[address] [facility] Pneumococcal 2016-06-15 Completed [facility] o f Polysaccharide, 00:00:00 [place] [facility] PPSV23 (PNEUMOVAX) Branch Influenza Virus 2016-06-15 Completed [facility] of Vaccine Quad IM 3+ 00:00:[address] [facility] Pneumococcal 2016-06-15 Completed [facility] o f Polysaccharide, 00:00:00 [place] [facility] PPSV23 (PNEUMOVAX) Branch Influenza Virus 2016-06-15 Completed [facility] of Vaccine Quad IM 3+ 00:00:[address] [facility] Pneumococcal 2016-06-15 Completed [facility] o f Polysaccharide, 00:00:00 [place] [facility] PPSV23 (PNEUMOVAX) Branch Influenza Virus 2016-06-15 Completed [facility] of Vaccine Quad IM 3+ 00:00:[address] [facility] Pneumococcal 2016-06-15 Completed [facility] o f Polysaccharide, 00:00:00 [place] [facility] PPSV23 (PNEUMOVAX) Branch Influenza Virus 2016-06-15 Completed [facility] of Vaccine Quad IM 3+ 00:00:[address] [facility] Pneumococcal 2016-06-15 Completed [facility] o f Polysaccharide, 00:00:00 [place] [facility] PPSV23 (PNEUMOVAX) Branch Influenza Virus 2016-06-15 Completed [facility] of Vaccine Quad IM 3+ 00:00:[address] [facility] Pneumococcal 2016-06-15 Completed [facility] o f Polysaccharide, 00:00:00 [place] [facility] PPSV23 (PNEUMOVAX) Branch Influenza Virus 2016-06-15 Completed [facility] of Vaccine Quad IM 3+ 00:00:[address] [facility] Pneumococcal 2016-06-15 Completed [facility] o f Polysaccharide, 00:00:00 [place] [facility] PPSV23 (PNEUMOVAX) Branch Influenza Virus 2016-06-15 Completed [facility] of Vaccine Quad IM 3+ 00:00:[address] [facility] Pneumococcal 2016-06-15 Completed [facility] o f Polysaccharide, 00:00:00 [place] [facility] PPSV23 (PNEUMOVAX) Branch Influenza Virus 2016-06-15 Completed [facility] of Vaccine Quad IM 3+ 00:00:[address] [facility] Pneumococcal 2016-06-15 Completed [facility] o f Polysaccharide, 00:00:00 [place] [facility] PPSV23 (PNEUMOVAX) Branch Influenza Virus 2016-06-15 Completed [facility] y of Vaccine Quad IM 3+ 00:00:[address] [facility] Pneumococcal 2016-06-15 Completed [facility] o f Polysaccharide, 00:00:00 [place] [facility] PPSV23 (PNEUMOVAX) Branch Influenza Virus 2016-06-15 Completed [facility] of Vaccine Quad IM 3+ 00:00:[address] [facility] Pneumococcal 2016-06-15 Completed [facility] o f Polysaccharide, 00:00:00 [place] [facility] PPSV23 (PNEUMOVAX) Branch Influenza Virus 2016-06-15 Completed [facility] y of Vaccine Quad IM 3+ 00:00:[address] [facility] Pneumococcal 2016-06-15 Completed [facility] o f Polysaccharide, 00:00:00 [place] [facility] PPSV23 (PNEUMOVAX) Branch Influenza Virus 2016-06-15 Completed [facility] of Vaccine Quad IM 3+ 00:00:[address] [facility] Pneumococcal 2016-06-15 Completed [facility] o f Polysaccharide, 00:00:00 [place] [facility] PPSV23 (PNEUMOVAX) Branch Influenza Virus 2016-06-15 Completed [facility] of Vaccine Quad IM 3+ 00:00:[address] [facility] Pneumococcal 2016-06-15 Completed [facility] o f Polysaccharide, 00:00:00 [place] [facility] PPSV23 (PNEUMOVAX) Branch Influenza Virus 2016-06-15 Completed [facility] of Vaccine Quad IM 3+ 00:00:[address] [facility] Pneumococcal 2016-06-15 Completed [facility] o f Polysaccharide, 00:00:00 [place] [facility] PPSV23 (PNEUMOVAX) Branch Influenza Virus 2016-06-15 Completed [facility] of Vaccine Quad IM 3+ 00:00:[address] [facility] Pneumococcal 2016-06-15 Completed [facility] o f Polysaccharide, 00:00:00 [place] [facility] PPSV23 (PNEUMOVAX) Branch Influenza Virus 2016-06-15 Completed [facility] of Vaccine Quad IM 3+ 00:00:[address] [facility] Pneumococcal 2016-06-15 Completed [facility] o f Polysaccharide, 00:00:00 [place] [facility] PPSV23 (PNEUMOVAX) Branch Influenza Virus 2016-06-15 Completed [facility] of Vaccine Quad IM 3+ 00:00:[address] [facility] Pneumococcal 2016-06-15 Completed [facility] o f Polysaccharide, 00:00:00 [place] [facility] PPSV23 (PNEUMOVAX) Branch Influenza Virus 2016-06-15 Completed [facility] of Vaccine Quad IM 3+ 00:00:[address] [facility] Pneumococcal 2016-06-15 Completed [facility] o f Polysaccharide, 00:00:00 [place] [facility] PPSV23 (PNEUMOVAX) Branch Influenza Virus 2016-06-15 Completed [facility] of Vaccine Quad IM 3+ 00:00:[address] [facility] Pneumococcal 2016-06-15 Completed [facility] o f Polysaccharide, 00:00:00 [place] [facility] PPSV23 (PNEUMOVAX) Branch Influenza Virus 2016-06-15 Completed [facility] of Vaccine Quad IM 3+ 00:00:[address] [facility] Pneumococcal 2016-06-15 Completed [facility] o f Polysaccharide, 00:00:00 [place] [facility] PPSV23 (PNEUMOVAX) Branch Influenza Virus 2016-06-15 Completed [facility] of Vaccine Quad IM 3+ 00:00:[address] [facility] Pneumococcal 2016-06-15 Completed [facility] o f Polysaccharide, 00:00:00 [place] [facility] PPSV23 (PNEUMOVAX) Branch Influenza Virus 2016-06-15 Completed [facility] of Vaccine Quad IM 3+ 00:00:[address] [facility] Pneumococcal 2016-06-15 Completed [facility] o f Polysaccharide, 00:00:00 [place] [facility] PPSV23 (PNEUMOVAX) Branch Influenza Virus 2016-06-15 Completed [facility] of Vaccine Quad IM 3+ 00:00:[address] [facility] Pneumococcal 2016-06-15 Completed [facility] o f Polysaccharide, 00:00:00 [place] [facility] PPSV23 (PNEUMOVAX) Branch Influenza Virus 2016-06-15 Completed [facility] of Vaccine Quad IM 3+ 00:00:[address] [facility] Pneumococcal 2016-06-15 Completed [facility] o f Polysaccharide, 00:00:00 [place] [facility] PPSV23 (PNEUMOVAX) Branch Influenza Virus 2016-06-15 Completed [facility] of Vaccine Quad IM 3+ 00:00:[address] [facility] Pneumococcal 2016-06-15 Completed [facility] o f Polysaccharide, 00:00:00 [place] [facility] PPSV23 (PNEUMOVAX) Branch Influenza Virus 2016-06-15 Completed [facility] of Vaccine Quad IM 3+ 00:00:[address] [facility] Pneumococcal 2016-06-15 Completed [facility] o f Polysaccharide, 00:00:00 [place] [facility] PPSV23 (PNEUMOVAX) Branch Influenza Virus 2016-06-15 Completed [facility] y of Vaccine Quad IM 3+ 00:00:[address] [facility] Pneumococcal 2016-06-15 Completed [facility] o f Polysaccharide, 00:00:00 [place] [facility] PPSV23 (PNEUMOVAX) Branch Influenza Virus 2016-06-15 Completed [facility] of Vaccine Quad IM 3+ 00:00:[address] [facility] Pneumococcal 2016-06-15 Completed [facility] o f Polysaccharide, 00:00:00 [place] [facility] PPSV23 (PNEUMOVAX) Branch Influenza Virus 2016-06-15 Completed [facility] of Vaccine Quad IM 3+ 00:00:[address] [facility] Pneumococcal 2016-06-15 Completed [facility] o f Polysaccharide, 00:00:00 [place] [facility] PPSV23 (PNEUMOVAX) Branch Influenza Virus 2016-06-15 Completed [facility] of Vaccine Quad IM 3+ 00:00:[address] [facility] Pneumococcal 2016-06-15 Completed [facility] o f Polysaccharide, 00:00:00 [place] [facility] PPSV23 (PNEUMOVAX) Branch Influenza Virus 2016-06-15 Completed [facility] of Vaccine Quad IM 3+ 00:00:[address] [facility] Pneumococcal 2016-06-15 Completed [facility] o f Polysaccharide, 00:00:00 [place] [facility] PPSV23 (PNEUMOVAX) Branch Influenza Virus 2016-06-15 Completed [facility] of Vaccine Quad IM 3+ 00:00:[address] [facility] Pneumococcal 2016-06-15 Completed University o f Polysaccharide, 00:00:00 [place] [facility] PPSV23 (PNEUMOVAX) Branch Influenza Virus 2016-06-15 Completed Universit y of Vaccine Quad IM 3+ 00:00:[address] [facility] Pneumococcal 2016-06-15 Completed University o f Polysaccharide, 00:00:00 [place] [facility] PPSV23 (PNEUMOVAX) Branch Vital Signs Vital Name Observation Time Observation Value Comments Source Systolic blood 2023-02-24 06:00:00 111 mm[Hg] Univer sity of pressure [facility] Diastolic blood 2023-02-24 06:00:00 83 mm[Hg] Unive rsity of pressure [facility] Heart rate 2023-02-24 06:00:00 97 /min [facility]i ty [facility] Oxygen saturation in 2023-02-24 06:00:00 94 /min University of Arterial blood by [employer] zan Pulse oximetry Branch Body temperature 2023-02-24 03:00:00 38.33 Eliana Univ ers[facility] Respiratory rate 2023-02-24 03:00:00 19 /min Univ ersity [facility] Body height 2023-02-23 22:21:00 162.6 cm [facility] Body weight 2023-02-23 22:21:00 55.792 kg [facility] BMI 2023-02-23 22:21:00 21.11 kg/m2 [facility] Systolic blood 2023-02-23 21:04:00 120 mm[Hg] Univer sity of pressure [facility] Diastolic blood 2023-02-23 21:04:00 74 mm[Hg] Unive rsity of pressure [facility] Heart rate 2023-02-23 21:04:00 133 /min [facility] Body temperature 2023-02-23 21:04:00 37.5 Eliana Univ [facility] Body height 2023-02-23 21:04:00 152.4 cm [facility] Systolic blood 2023-02-13 14:50:00 132 mm[Hg] Univer sity of pressure [facility] Diastolic blood 2023-02-13 14:50:00 88 mm[Hg] Unive rsity of pressure [facility] Heart rate 2023-02-13 14:49:00 67 /min [facility] Respiratory rate 2023-02-13 14:49:00 18 /min Univ ers[facility] Body height 2023-02-13 14:49:00 157.5 cm [facility] Body weight 2023-02-13 14:49:00 55.838 kg [facility] BMI 2023-02-13 14:49:00 22.52 kg/m2 [facility] Oxygen saturation in 2023-02-13 14:49:00 97 /min University of Arterial blood by [employer] Pulse oximetry Branch Systolic blood 2022-12-09 18:45:00 149 mm[Hg] Univer [facility]ity of [facility] Diastolic blood 2022-12-09 18:45:00 83 mm[Hg] Unive rsity of pressure [facility] Heart rate 2022-12-09 18:45:00 65 /min [facility] Body temperature 2022-12-09 18:45:00 36.33 Eliana [facility] Respiratory rate 2022-12-09 18:45:00 18 /min [facility] Body weight 2022-12-09 18:45:00 54.658 kg [facility] BMI 2022-12-09 18:45:00 23.53 kg/m2 [facility] Oxygen saturation in 2022-12-09 18:45:00 96 /min University of Arterial blood by [place] [employer] zan Pulse oximetry Branch Systolic blood 2022-11-24 16:59:00 133 mm[Hg] Univer sity of pressure [facility] Diastolic blood 2022-11-24 16:59:00 85 mm[Hg] Unive rsity of pressure [facility] Heart rate 2022-11-24 16:59:00 85 /min [facility] Body weight 2022-11-24 16:59:00 56.79 kg [facility] BMI 2022-11-24 16:59:00 24.45 kg/m2 [facility] Oxygen saturation in 2022-11-24 16:59:00 91 /min University of Arterial blood by [place] [employer] zan Pulse oximetry Branch Systolic blood 2022-10-24 16:25:00 120 mm[Hg] Univer sity of [facility] Diastolic blood 2022-10-24 16:25:00 75 mm[Hg] Unive rsity of pressure [facility] Heart rate 2022-10-24 16:25:00 66 /min [facility] Body temperature 2022-10-24 16:25:00 36 Eliana [facility] [place] [facility] Respiratory rate 2022-10-24 16:25:00 18 /min Univ [facility] [place] [facility] Body weight 2022-10-24 16:25:00 58.287 kg [facility] BMI 2022-10-24 16:25:00 25.10 kg/m2 [facility] Oxygen saturation in 2022-10-24 16:25:00 94 /min University of Arterial blood by [facility] zan Pulse oximetry Branch Systolic blood 2022-10-10 17:11:00 110 mm[Hg] Univer sity of pressure [facility] Diastolic blood 2022-10-10 17:11:00 86 mm[Hg] Unive rsity of pressure [facility] Heart rate 2022-10-10 17:11:00 73 /min [facility] Body temperature 2022-10-10 17:11:00 36.11 Eliana Univ [facility] [place] [facility] Respiratory rate 2022-10-10 17:11:00 18 /min Univ [facility] [place] [facility] Body weight 2022-10-10 17:11:00 58.695 kg [facility] BMI 2022-10-10 17:11:00 25.27 kg/m2 [facility] Oxygen saturation in 2022-10-10 17:11:00 94 /min University of Arterial blood by [facility] Pulse oximetry Branch Systolic blood 2022-10-07 17:41:00 118 mm[Hg] Univer sity of pressure [facility] Diastolic blood 2022-10-07 17:41:00 65 mm[Hg] Unive rsity of pressure [facility] Heart rate 2022-10-07 17:41:00 86 /min [facility] Body weight 2022-10-07 17:41:00 60.283 kg [facility] BMI 2022-10-07 17:41:00 25.96 kg/m2 [facility] Oxygen saturation in 2022-10-07 17:41:00 91 /min University of Arterial blood by [facility] Pulse oximetry Branch Systolic blood 2022-10-06 20:35:00 101 mm[Hg] Univer sity of pressure [facility] Diastolic blood 2022-10-06 20:35:00 66 mm[Hg] Unive rsity of pressure [facility] Heart rate 2022-10-06 20:35:00 90 /min [facility] Oxygen saturation in 2022-10-06 20:35:00 95 /min University of Arterial blood by [place] [employer] zan Pulse oximetry Branch Respiratory rate 2022-10-06 20:15:00 14 /min Univ [facility] [place] [facility] Body temperature 2022-10-06 17:22:00 36.89 Eliana [facility] [place] [facility] Body height 2022-10-06 11:29:00 152.4 cm [facility] [place] [facility] [place] Body weight 2022-10-06 11:29:00 57.607 kg [facility] [place] [facility] BMI 2022-10-06 11:29:00 24.80 kg/m2 [facility] [place] [facility] Systolic blood 2022-10-06 18:00:00 114 mm[Hg] Univer sity of pressure [facility] Diastolic blood 2022-10-06 18:00:00 68 mm[Hg] Unive rsity of pressure [place] [facility] [place] Heart rate 2022-10-06 18:00:00 92 /min [facility] [place] [facility] [place] Respiratory rate 2022-10-06 18:00:00 13 /min Univ ersity of [facility] Oxygen saturation in 2022-10-06 18:00:00 92 /min University of Arterial blood by [place] [employer] zan Pulse oximetry Branch Body temperature 2022-10-06 17:22:00 36.89 Eliana Univ [facility] Body height 2022-10-06 11:29:00 152.4 cm [facility] Body weight 2022-10-06 11:29:00 57.607 kg [facility] BMI 2022-10-06 11:29:00 24.80 kg/m2 [facility] [place] [facility] Systolic blood 2022-09-20 17:17:00 130 mm[Hg] Univer sity of pressure [facility] Diastolic blood 2022-09-20 17:17:00 83 mm[Hg] Unive rsity of pressure [facility] Heart rate 2022-09-20 17:17:00 59 /min [facility] Body temperature 2022-09-20 17:17:00 36.39 Eliana [facility] [place] [facility] Respiratory rate 2022-09-20 17:17:00 16 /min Univ [facility] [place] [facility] Body height 2022-09-20 17:17:00 152.4 cm [facility] Body weight 2022-09-20 17:17:00 57.335 kg [facility] BMI 2022-09-20 17:17:00 24.69 kg/m2 [facility] Oxygen saturation in 2022-09-20 17:17:00 94 /min [facility]terial blood by [place] [facility] P[facility] oximetry Branch Systolic blood 2022-08-24 18:04:00 121 mm[Hg] Univer sity of pressure [facility] Diastolic blood 2022-08-24 18:04:00 73 mm[Hg] Unive rsity of pressure [facility] Heart rate 2022-08-24 18:04:00 73 /min [facility] Body height 2022-08-24 18:04:00 152.4 cm [facility] Body weight 2022-08-24 18:04:00 58.469 kg [facility] [place] [facility] BMI 2022-08-24 18:04:00 25.17 kg/m2 [facility] Oxygen saturation in 2022-08-24 18:04:00 98 /min [facility] of Arterial blood by [place] [facility] Pulse oximetry Branch Systolic blood 2022-07-19 19:24:00 123 mm[Hg] Univer sity of pressure [facility] Diastolic blood 2022-07-19 19:24:00 66 mm[Hg] Unive rsity of pressure [facility] Heart rate 2022-07-19 19:24:00 61 /min [facility] Body temperature 2022-07-19 19:24:00 36.5 Eliana Univ [facility] [place] [facility] Body height 2022-07-19 19:24:00 152.4 cm [facility] Body weight 2022-07-19 19:24:00 57.267 kg [facility] BMI 2022-07-19 19:24:00 24.66 kg/m2 [facility] Systolic blood 2022-06-20 18:36:00 125 mm[Hg] Univer sity of pressure [facility] Diastolic blood 2022-06-20 18:36:00 74 mm[Hg] Unive rsity of pressure [facility] Heart rate 2022-06-20 18:36:00 47 /min Universi [facility] Body weight 2022-06-20 18:36:00 [facility] 2022-06-20 18:36:00 24.02 kg/m2 [facility] Oxygen saturation in 2022-06-20 18:36:00 97 /min [facility] blood by [facility] Pulse oximetry Branch Systolic blood 2022-05-09 15:19:00 128 mm[facility]Hg] [facility] 2022-05-09 15:19:00 71 mm[Hg] [facility] [place] Heart rate 2022-05-09 15:19:00 52 /min [facility] Body weight 2022-05-09 15:19:00 58.469 kg [facility] BMI 2022-05-09 15:19:00 25.17 kg/m2 [facility] Procedures Procedure Date / Time Performing Clinician Source Performed CT ABDOMEN PELVIS W 2023-02-24 04:46:26 Maira William [facility] CONTRAST [facility] XR CHEST 1 VW 2023-02-24 04:18:27 Maira William [facility] URINALYSIS 2023-02-23 23:42:00 Maira William [facility] RAPID INFLUENZA A/B 2023-02-23 23:05:00 Maira William [facility] LIPASE 2023-02-23 22:34:00 Maira William [facility] TROPONIN I 2023-02-23 22:34:00 Maira William [facility] COMP. METABOLIC PANEL 2023-02-23 22:34:00 Maira William [facility] ([id number]) [facility] CBC WITH DIFF 2023-02-23 22:34:00 Maira William [facility] COVID-19 (ID NOW RAPID 2023-02-23 22:34:00 Maira William [facility] TESTING) [facility] [place] REDUCTION MAMMOPLASTY 2022-10-06 13:04:00 Angie Poole [facility]ENEFITS 2022-10-06 10:59:55 Doctor Unassigned, [facility] PATIENT FINANCIAL 2022-09-21 06:01:00 Doctor Raúl, [facility] RESPONSIBILITY - ALL [place] [place] [facility] FORMS EXTERNAL PROVIDER RECORDS 2022-06-15 05:01:00 Doctor Lydiassigned, [facility] Encounters Start End Encounter Admission Attending Care Care Encounter Source Date/Time Date/Time Type Type Clinicians Facility Department ID 2023-02-25 Preadmit nullFlavo [facility] [id number] Me moria 16:37:00 alex Peng 2021-04-26 Preadmit nullFlavo [facility] [id number] [place] moria 14:49:52 alex Peng 2023-02-23 2023-02-24 Emergency X NATALIIA [facility] ERT [id number] Univers 17:17:00 02:01:00 [facility]23-[facility]-23 2023-02-24 [facility] [id number] Univers 17:17:00 02:01:00 Maira SINGH 350.1.13.10 i ty [place] [id number] [address] 2023-02-23 2023-02-23 Outpatient R EMILY [facility] [id number] Univers 16:00:00 17:05:26 YULIANA [facility] 2023-02-23 2023-02-23 Office [facility] 1.2.840.114 [id number] Univers 16:00:00 17:05:26 Visit Yuliana Nuñez HEALTH 350.1.13.10 i ty of [place] 4.2.7.2.686 Baljeet as STEVIE?BLEA [id number] [place] [address] MEDICAL OFFICE BUILDING 2023-02-20 2023-02-20 [facility]phone [facility] [id number] Univers 00:00:00 00:00:00 Herman HEALTH 350.1.13.10 it y of [place] 4.2.7.2.686 Baljeet as STEVIE?BLEA [id number] [address] OFFICE [facility] 2023-02-13 2023-02-13 Outpatient R ROLAND [facility] [id number] Univers 09:45:00 11:55:15 HERMAN amy [facility] 2023-02-13 2023-02-13 Office [facility] 1.2.840.114 [id number] Univers 09:45:00 11:55:15 Visit [facility] 350.1.13.10 it y of [place] 4.2.7.2.686 Baljeet as STEVIE?BLEA [id number] [address] OFFICE [facility] 2023-01-18 2023-01-18 Refill [facility] 1..840.114 [id number] Univers 00:00:00 00:00:00 [facility] 350.1.13.10 it y of [place] 4.2.7.2.686 Baljeet as STEVIE?BLEA [id number] [address] OFFICE [facility] 2023-01-16 2023-01-16 [facility] [id number] Univers 14:00:00 14:00:00 REGLA [facility] 2022-12-09 2022-12-09 [facility] [id number] Univers 14:00:00 14:19:15 REGLA [facility] 2022-12-09 2022-12-09 Office [facility] [id number] Univers 14:00:00 14:19:15 Visit [facility] 350.1.13.10 ity of [facility] 4.2.7.2.[place] [id number] [address] [facility] 2022-11-24 2022-11-24 [facility] [id number] Univers 12:00:00 12:20:27 HERMAN sheldon [facility] 2022-11-24 2022-11-24 Office [facility] 1.2.840.114 [id number] Univers 12:00:00 12:20:27 Visit [facility] 350.1.13.10 it y of [place] 4.2.7.2.686 Baljeet as STEVIE?BLEA [id number] [place] dical KNEY 044 [facility] OFFICE [facility] 2022-10-24 2022-10-24 Outpatient R JAVIER, [facility] [id number] Univers 10:15:00 11:06:14 REGLA ity [facility] 2022-10-24 2022-10-24 Office Javier, [facility] 1.2.733.149 [id number] Univers 10:15:00 11:06:14 Visit [facility] 350.1.13.10 ity of [place] C[place] [id number] [address] [facility] 2022-10-22 2022-10-22 Gaurang [facility] 1.2.840.114 [id number] Univers 00:00:00 00:00:00 Ben SINGH 350.1.13.10 i ty of [place]2.[place] [id number] [place] dical NAL 085 [facility] 2022-10-10 2022-10-10 Outpatient [facility] [id number] Univers 11:00:00 12:08:38 REGLA ity [facility] 2022-10-10 2022-10-10 Office [facility] [id number] [id number] Univers 11:00:00 12:08:38 Visit [facility] 350.1.13.10 ity of [place].2.[place] [id number] [address] [facility] 2022-10-07 2022-10-07 [facility] [id number] Univers 11:30:00 12:15:14 REGLA ity [facility] 2022-10-07 2022-10-07 Office [facility] [id number] Univers 11:30:00 12:15:14 Visit Regla [place] 350.1.13.10 ity of [place]2.7.2.[place] [id number] [facility] AND [address] DIABETES CLINIC 2022-10-06 2022-10-06 Outpatient R VIRGILIO [facility] [id number] Univers 04:59:00 14:45:00 ANGIE ity of [facility] 2022-10-06 2022-10-06 Hospital [facility] 1.2.840.114 [id number] Univers 04:59:00 14:45:00 Encounter Angie Pinto HEALTH 350.1.13.10 ity of [place]2.686 [place] [facility] [id number] [address] ([facility]) 2022-10-06 2022-10-06 Surgery [facility] 1.2.348.694 [id number] Univers 07:05:00 12:07:00 Angie Pinto SPECIALTY 350.1.13.10 ity of CARE 4.2.7.2.686 [facility] AT [id number] [place] MORRISSEY 020 [facility] 2022-10-06 2022-10-06 Orders Doctor HERMINIA 1.2.840.114 [id number] Univers 00:00:00 00:00:00 Only Unassigned, SARAH 350.1.13.10 ity [place] [facility] 4.2.7.2.686 Baljeet as [id number] [facility] 009 [place] 2022-10-04 2022-10-04 Telephone [facility] 1.2.840.114 [id number] Univers 00:00:00 00:00:00 Angie G SPECIALTY 350.1.13.10 ity of CARE 4.2.7.2.686 [facility] AT [id number] [place] MORRISSEY 201 [facility] 2022-10-03 2022-10-03 Telephone [facility] 1.2.840.114 [id number] Univers 00:00:00 00:00:00 Angie G SPECIALTY 350.1.13.10 ity of CARE 4.2.7.2.686 [facility] AT [id number] [place] MORRISSEY [address] [place] [address] 2022-10-03 2022-10-03 Telephone HERMINIA Baldwin 1.2.816.581 [id number] Univers 00:00:00 00:00:00 Natali SARAH 350.1.13.10 it y of HOSPITAL 4.2.7.2.686 Baljeet as [id number] [facility] 010 [place] 2022-09-29 2022-09-29 Telephone Sanchez [facility] 1.2.971.230 [id number] Univers 00:00:00 00:00:00 Margarette SPECIALTY 350.1.13.10 ity of [place] [facility] 4.2.7.2.686 [place] CENTER AT [id number] [place] d[place] MORRISSEY [address] [place] [address] 2022-09-26 2022-09-26 Telephone Virgilio [facility] 1.2.840.114 [id number] Univers 00:00:00 00:00:00 Angie Pinto SPECIALTY 350.1.13.10 ity [place] 4[place]2.7.2.[place] AT [id number] [place] MORRISSEY [address] [place] [address] 2022-09-21 2022-09-21 Orders Doctor HERMINIA 1.2.840.114 [id number] Univers 00:00:00 00:00:00 Only Unassigned, SARAH 350.1.13.10 ity of [place] [facility] 4.2.7.2.686 Baljeet as [id number] [address] 2022-09-21 2022-09-21 Telephone Virgilio [facility] 1.2.840.114 [id number] Univers 00:00:00 00:00:00 Angie G SPECIALTY 350.1.13.10 ity of [place] 4[place]2.7.2.686 [place] AT [id number] [place] MORRISSEY [address] [place] [address] 2022-09-20 2022-09-20 Outpatient R VIRGILIO [facility] [id number] Univers 11:15:00 11:56:55 ANGIE ity of [facility] 2022-09-20 2022-09-20 Office Virgilio [facility] 1.2.755.848 [id number] Univers 11:15:00 11:56:55 Visit Angie G SPECIALTY 350.1.13.10 ity of C[place] 4.2.7.2.686 [place] AT [id number] [place] d[place] MORRISSEY [address] [place] [address] 2022-09-20 2022-09-20 Prep For Bradford [facility] 1.2.840.114 [id number] Univers 00:00:00 00:00:00 Surgery Margarette SPECIALTY 350.1.13.10 ity of [place] CARE 4.2.7.2.686 [place] AT [id number] [place] d[place] MORRISSEY [address] [place] [address] 2022-09-19 2022-09-19 Telephone [facility] [id number] Univers 00:00:00 00:00:00 Herman HEALTH 350.1.13.10 it y of [place] 4.2.7.2.686 Baljeet as STEVIE?BLEA [id number] [address] OFFICE [facility] 2022-09-07 2022-09-07 Refill [facility] 1.2.840.114 [id number] Univers 00:00:00 00:00:00 Herman HEALTH 350.1.13.10 it y of [place] 4.2.7.2.686 Baljeet as STEVIE?BLEA [id number] [address] OFFICE [facility] 2022-08-24 2022-08-24 Outpatient R ROLAND [facility] [id number] Univers 12:00:00 12:22:07 HERMAN ity [facility] 2022-08-24 2022-08-24 Office [facility] 1.2.840.114 [id number] Univers 12:00:00 12:22:07 Visit [facility] 350.1.13.10 it y of [place] 4.2.7.2.686 Baljeet as STEVIE?BLEA [id number] [address] OFFICE BUILDING 2022-08-15 2022-08-15 [facility]ill [facility] 1.2.840.114 [id number] Univers 00:00:00 00:00:00 Herman HEALTH 350.1.13.10 it y of [place] 4.2.7.2.686 Baljeet as STEVIE?BLEA [id number] [place]s deion[address] OFFICE [facility] 2022-07-19 2022-07-19 Outpatient R VIRGILIO [facility] [id number] Univers 13:00:00 14:48:29 ANGIE sheldon [facility] 2022-07-19 2022-07-19 Office [facility] 1.2.509.390 [id number] Univers 13:00:00 14:48:29 Visit Angie Pinto SPECIALTY 350.1.13.10 ity of C[place] 4.2.7.2.686 [place] CENTER AT [id number] Ks deion[address] 2022-06-20 2022-06-20 Outpatient R ROLAND [facility] [id number] Univers 13:45:00 13:55:51 HERMAN sheldon [facility] 2022-06-20 2022-06-20 Office [facility] 1.2.840.114 [id number] Univers 13:45:00 13:55:51 Visit HermanAdvisor Client Match 350.1.13.10 it y [facility] 4.2.7.2.686 Baljeet as STEVIE?BLEA [id number] [address] OFFICE [facility] 2022-06-20 2022-06-20 Telephone [facility] 1.2.840.114 [id number] Univers 00:00:00 00:00:00 Angie Pinto SPECIALTY 350.1.13.10 ity of C[place] 4.2.7.2.686 [place] AT [id number] [place] d[place] MORRISSEY [address] [place] [address] 2022-06-15 2022-06-15 Orders Doctor HERMINIA 1.2.840.114 [id number] Univers 00:00:00 00:00:00 Only Unassigned, SARAH 350.1.13.10 ity of [place] [facility] 4.2.7.2.686 Baljeet as [id number] [address] 2022-05-31 2022-05-31 Refill [facility] 1.2.840.114 [id number] Univers 00:00:00 00:00:00 Herman HEALTH 350.1.13.10 it y [facility] 4.2.7.2.686 Baljeet as STEVIE?BLEA [id number] [place] [address] MEDICAL OFFICE [facility] 2022-05-27 2022-05-27 Telephone [facility] 1.2.840.114 [id number] Univers 00:00:00 00:00:00 Angie G SPECIALTY 350.1.13.10 ity of C[place] 4[place]2.7.2.686 [place] AT [id number] [place] MORRISSEY 201 [facility] 2022-05-25 2022-05-25 Telephone [facility] 1.2.214.806 [id number] Univers 00:00:00 00:00:00 [facility] 350.1.13.10 it y of [place] 4.2.7.2.686 Baljeet as STEVIE?BLEA [id number] [address] MEDICAL OFFICE [facility] 2022-05-09 2022-05-09 [facility] [id number] [facility] 10:15:00 10:42:15 [facility] 2022-05-09 2022-05-09 Office [facility] [id number] Univers 10:15:00 10:30:00 Visit [facility] [id number] it y of [place] [id number] [place] as STEVIE?BLEA [phone] [address] OFFICE [facility] 2022-05-09 2022-05-09 [facility] [id number] Univers 10:15:00 10:15:00 [facility] 2022-04-08 2022-04-08 Telephone [facility] [id number] Univers 00:00:00 00:00:00 Angie G [facility] [id number] ity of [id number] [phone] [place] MORRIS[place] 201 [facility] 2022-03-30 2022-03-30 Orders Doctor HOPE 1.2.840.114 [id number] Univers 00:00:00 00:00:00 Only Unassigned, SARAH 350.1.13.10 ity of [place] [facility] 4.2.7.2.686 Baljeet as [phone] [address] 2022-03-25 2022-03-25 ADORE Boo 1.2.840.114 [id number] Univers 00:00:00 00:00:00 [facility] 350.1.13.10 it y of [facility] 4.2.7.2.686 Baljeet as STEVIE?BLEA [phone] Ks deionbekah CRESPO [address] [place] [address] MEDICAL OFFICE BUILDING 2022-03-25 2022-03-25 Telephone Virgilio [facility] 1.2.840.114 [id number] Univers 00:00:00 00:00:00 Angie G SPECIALTY 350.1.13.10 ity of [place]2.[place].2.[place] [phone] [place]s deionbekah MORRISSEY [address] [place] [address] 2022-03-23 2022-03-23 Telephone [facility] 1.2.840.114 [id number] Univers 00:00:00 00:00:00 Angie G SPECIALTY 350.1.13.10 ity of C[place] 4.2.7.2.686 [place] [phone] Ks deionbekah MORRISSEY [address] [place] [address] 2022-03-15 2022-03-15 Outpatient Alex POOLE [facility] [id number] Univers 15:00:00 16:32:46 ANGIE itamy [facility] 2022-03-15 2022-03-15 Office [facility] 1.2.855.528 [id number] Univers 15:00:00 16:32:46 Visit Angie G SPECIALTY 350.1.13.10 ity of C[place] 4.2.7.2.[place] [phone] Ks deionbekah MORRISSEY [address] [place] [address] 2022-03-15 2022-03-15 Outpatient [facility] [id number] Univers 15:00:00 16:32:46 ANGIE itamy [facility] 2022-03-10 2022-03-10 Gaurang Wtakins [facility] 1.2.840.114 [id number] Univers 00:00:00 00:00:00 Herman HEALTH 350.1.13.10 it y of [place] 4.2.7.2.686 Baljeet as STEVIE?BLEA [phone] [place] douglas [address] MEDICAL OFFICE [facility] 2022-03-08 2022-03-08 Outpatient [facility] [id number] Univers 13:15:00 13:15:00 ANGIE sheldon [facility] 2022-03-06 2022-03-06 Gaurang [facility] 1.2.840.114 [id number] Univers 00:00:00 00:00:00 [place] [facility] 350.1.13.10 it y of [facility] 4.2.7.2.686 Baljeet as STEVIE?BLEA [phone] [facility]KE [address] [place] [address] OFFICE [facility] 2022-02-28 2022-02-28 Outpatient R [facility] [id number] Univers 13:49:26 23:59:00 ANGIE goldieamy [facility] 2022-02-28 2022-02-28 [facility] 1.2.840.114 [id number] Univers 13:49:26 23:59:00 Encounter Angie Pinto SAMANTHA 350.1.13.10 ity of [facility] 4.2.7.2.686 [facility] [place] [phone] [address] 2022-02-28 2022-02-28 Hospital [facility] 1.2.840.114 [id number] Univers 10:25:00 13:48:00 Encounter Angie Pinto SAMANTHA 350.1.13.10 ity of [facility] 4.2.7.2.686 [facility] [place] [phone] [facility] [address] 2022-02-23 2022-02-23 Patient [facility] 1.2.044.173 [id number] Univers 00:00:00 00:00:00 Secure Msg Angie Evie SPECIALTY 350.1.13.10 ity of CARE 4.2.7.2.686 [facility] [place] AT [phone] Ks douglas MORRISSEY [address] [place] [address] 2022-02-22 2022-02-22 Blender Helper Vls-Lab [facility] 1.2.840.114 [id number] Univers 14:00:00 14:15:00 Visit Angie Poole SPECIALTY 350.1.13.1 0 ity of CARE 4.2.7.2.686 [place] CENTER AT [phone] Ks deionbekah TAMKEAAmy 353 [facility] 2022-02-22 2022-02-22 Outpatient [facility] [id number] Univers 14:00:00 14:00:00 ANGIE pito [facility] 2022-02-22 2022-02-22 Office [facility] 1.2.468.508 [id number] Univers 13:00:00 13:48:46 Visit Angie Pinto SPECIALTY 350.1.13.10 ity of CARE 4.2.7.2.686 [place] CENTER AT [phone] Ks deionbekah MORRISSEY 201 [facility] 2022-02-22 2022-02-22 Outpatient [facility] [id number] Univers 13:00:00 13:48:46 ANGIE sheldon [facility] 2022-02-22 2022-02-22 Outpatient Alex POOLE [facility] [id number] Univers 13:00:00 13:48:46 ANGIE sheldon [facility] 2022-02-16 2022-02-16 Office [facility] 1.2.840.114 [id number] Univers 14:15:00 14:20:13 Visit [facility] 350.1.13.10 it y of [place] 4.2.7.2.686 Baljeet as STEVIE?BLEA [phone] [place]s douglas CRESPO [address] MEDICAL OFFICE BUILDING 2022-02-16 2022-02-16 Outpatient Alex WATKINS [facility] [id number] Univers 14:15:00 14:20:13 HERMAN sheldon [facility] 2022-02-16 2022-02-16 Outpatient Alex WATKINS [facility] [id number] Univers 14:15:00 14:15:00 [facility] 2022-02-16 2022-02-16 Orders Doctor HOPE 1.2.840.114 [id number] Univers 00:00:00 00:00:00 Only Unassigned, SARAH 350.1.13.10 ity of [place] [facility] 4.2.7.2.686 Baljeet as [phone] [address] 2022-01-05 2022-01-05 Orders Doctor HERMINIA 1.2.840.114 [id number] Univers 00:00:00 00:00:00 Only Unassigned, SAARH 350.1.13.10 ity of [place] [facility] 4.2.7.2.686 Baljeet as [phone] [address] 2022-01-03 2022-01-03 Telephone [facility] 1.2.555.814 [id number] Univers 00:00:00 00:00:00 Herman HEALTH 350.1.13.10 it y of [place] 4.2.7.2.686 Baljeet as STEVIE?BLEA [phone] [address] OFFICE [facility] 2021-12-27 2021-12-27 Telephone [facility] 1.2.619.980 [id number] Univers 00:00:00 00:00:00 Herman HEALTH 350.1.13.10 it y of [place] 4.2.7.2.686 Baljeet as STEVIE?BLEA [phone] [address] OFFICE [facility] 2021-12-25 2021-12-25 Ref[facility] 1.2.840.114 [id number] Univers 00:00:00 00:00:00 Herman HEALTH 350.1.13.10 it y of [place] 4.2.7.2.686 Baljeet as PROFESSIO [phone] [address] ONE 2021-12-22 2021-12-22 Telephone [facility] 1.2.816.373 [id number] Univers 00:00:00 00:00:00 Herman HEALTH 350.1.13.10 it y of [place] 4.2.7.2.686 Baljeet as STEVIE?BLEA [phone] [address] OFFICE [facility] 2021-12-21 2021-12-21 Orders Doctor HERMINIA 1.2.840.114 [id number] Univers 00:00:00 00:00:00 Only Unassigned, SARAH 350.1.13.10 ity of [place] [facility] 4.2.7.2.686 Baljeet as [phone] [address] 2021-12-08 2021-12-08 Orders Doctor HERMINIA 1.2.840.114 [id number] Univers 00:00:00 00:00:00 Only Unassigned, SARAH 350.1.13.10 ity of [place] [facility] 4.2.7.2.686 Baljeet as [phone] [address] 2021-11-30 2021-11-30 Orders Doctor HERMINIA 1.2.840.114 [id number] Univers 00:00:00 00:00:00 Only Unassigned, SARAH 350.1.13.10 ity of [place] [facility] 4.2.7.2.686 Baljeet as [phone] [address] 2021-11-25 2021-11-25 Angela Watkins MDRENÉ 1.2.020.374 [id number] Univers 00:00:00 00:00:00 Herman HEALTH 350.1.13.10 it y of [place] 4.2.7.2.686 Baljeet as STEVIE?BLEA [phone] [address] OFFICE BUILDING 2021-11-09 2021-11-09 Gaurang Watkins MDRENÉ 1.2.840.114 [id number] Univers 00:00:00 00:00:00 Herman HEALTH 350.1.13.10 it y of [place] 4.2.7.2.686 Baljeet as PROFESSIO [phone] [address] OFFICE BUILDING ONE 2021-10-30 2021-10-30 Gaurang Watkins MDRENÉ 1.2.840.114 [id number] Univers 00:00:00 00:00:00 Herman HEALTH 350.1.13.10 it y of [place] 4.2.7.2.686 Baljeet as PROFESSIO [phone] [address] OFFICE BUILDING ONE 2021-10-25 2021-10-25 Gaurang Watkins [facility] 1.2.840.114 [id number] Univers 00:00:00 00:00:00 Herman HEALTH 350.1.13.10 it y of [facility] 4.2.7.2.686 Baljeet as PROFESSIO [phone] [place]s douglas TREVIZO [address] [place] [address] OFFICE BUILDING ONE 2021-10-04 2021-10-04 Patient Roland [facility] 1.2.840.114 [id number] Univers 00:00:00 00:00:00 Secure Msg [facility] 350.1.13.10 ity of [facility] 4.2.7.2.686 Baljeet as STEVIE?BLEA [phone] Ks douglas BALLESTEROS[address] OFFICE BUILDING 2021-09-15 2021-09-15 Office [facility] 1.2.840.114 [id number] Univers 14:00:00 14:44:21 Visit [facility] 350.1.13.10 it y of [place] 4.2.7.2.686 Baljeet as STEVIE?BLEA [phone] [facility] FAVIAN[address] OFFICE [facility] 2021-09-15 2021-09-15 Outpatient R ROLAND [facility] [id number] Univers 14:00:00 14:44:21 [facility] 2021-09-15 2021-09-15 Outpatient R ROLAND [facility] [id number] Univers 14:00:00 14:00:00 [facility] 2021-09-15 2021-09-15 Telephone [facility] 1.2.509.043 [id number] Univers 00:00:00 00:00:00 [facility] 350.1.13.10 it y of [facility] 4.2.7.2.686 Baljeet as STEVIE?BLEA [phone] [address] OFFICE [facility] 2021-09-09 2021-09-09 Outpatient Alex SHIRLEY [facility] [id number] Univers 14:40:00 14:40:00 ESAU sheldon [facility] 2021-09-09 2021-09-09 Imm/Inj Nurse, Adc Pob Immunization [facility] 1.2.840.114 [id number] Univers 14:40:00 14:40:00 Visit Esau Shirley 350.1.13 .10 ity of [facility] 4.2.7.2.686 [place] PROFESS[place] [phone] [place]s dicbekah TREVIZO 421 [facility] 2021-09-09 2021-09-09 Outpatient R CASPER [facility] [id number] Univers 14:40:00 14:33:08 ESAU ity of [facility] 2021-09-09 2021-09-09 Office Winsome [facility] 1.2.840.114 [id number] Univers 14:00:00 14:30:00 Visit Ben SINGH 350.1.13.10 i ty of [place] 4.2.7.2.686 [place] PROFESSIO [phone] [place] douglas SANTHOSH 085 [facility] 2021-09-09 2021-09-09 Outpatient R BEN BRUSH [facility] [id number] Univers 14:00:00 14:00:00 BEN BRUSH i ty of [facility] 2021-08-19 2021-08-19 Telephone [facility] 1.2.892.022 [id number] Univers 00:00:00 00:00:00 [facility] 350.1.13.10 it y of [place] 4.2.7.2.686 Baljeet as STEVIE?BLEA [phone] [place]s douglas CRESPO 044 [facility] 2021-08-10 2021-08-10 Reftammie [facility] 1.2.840.114 [id number] Univers 00:00:00 00:00:00 [facility] 350.1.13.10 it y of [place] 4.2.7.2.686 Baljeet as PROFESSIO [phone] Ks deionmd SANTHOSH 044 [facility] ONE 2021-08-09 2021-08-09 Orders Doctor HERMINIA 1.2.840.114 [id number] Univers 00:00:00 00:00:00 Only Unassigned, SARAH 350.1.13.10 ity of [place] [facility] 4.2.7.2.686 Baljeet as [phone] [address] 2021-08-06 2021-08-06 Reftammie [facility] 1.2.840.114 [id number] Univers 00:00:00 00:00:00 Herman HEALTH 350.1.13.10 it y of [place] 4.2.7.2.686 Baljeet as PROFESSIO [phone] [address] ONE 2021-06-20 2021-06-20 [facility] 1.2.840.114 [id number] Univers 00:00:00 00:00:00 Shiwan [place] 350.1.13.10 i ty of [place] 4.2.7.2.686 [place] Profess[place] [phone] [facility] 085 [facility] 2021-05-13 2021-05-13 Angela [facility] 1.2.872.055 [id number] Univers 00:00:00 00:00:00 [facility] 350.1.13.10 it y of [place] 4.2.7.2.686 Baljeet as Stevie?Blea [phone] [facility] [address] [place] [address] 2021-05-11 2021-05-11 [facility] 1.2.840.114 [id number] Univers 00:00:00 00:00:00 Herman [facility] 350.1.13.10 it y of [place] 4.2.7.2.686 Baljeet as Professio [phone] [address] One 2021-05-04 2021-05-04 [facility] 1.2.840.114 [id number] Univers 00:00:00 00:00:00 [facility] 350.1.13.10 it y of [place] 4.2.7.2.686 Baljeet as Professio [phone] [address] One 2021-04-30 2021-04-30 Outpatient Alex MERRILL [facility] [id number] Univers 10:30:00 10:30:00 SKIP sheldon [facility] 2021-04-29 2021-04-29 Outpatient Alex MERRILL [facility] [id number] Univers 09:45:00 09:45:00 SKIP sheldon [facility] 2021-04-28 2021-04-28 [facility] 1.2.840.114 [id number] Univers 09:37:11 23:59:00 Encounter Herman Samantha 350.1.13.10 ity of [place] 4.2.7.2.686 [place] [id number] [facility] [address] 2021-04-28 2021-04-28 [facility] 1.2.840.114 [id number] Univers 09:30:00 09:36:00 Encounter Elias Patel Samantha 350.1.13.10 ity of [place] 4.2.7.2.686 [facility] [phone] [facility] [address] 2021-04-28 2021-04-28 Outpatient [facility] [id number] Univers 00:00:00 00:00:00 [facility] 2021-04-27 2021-04-27 Orders Doctor HERMINIA 1.2.840.114 [id number] Univers 00:00:00 00:00:00 Only Unassigned, SARAH 350.1.13.10 ity of [place] [facility] 4.2.7.2.686 Baljeet as [phone] [facility] [address] 2021-04-27 2021-04-27 Telephone [facility] 1.2.640.481 [id number] Univers 00:00:00 00:00:00 Brandy Singh 350.1.13.10 ity of [place] 4.2.7.2.686 [place] Profess[place] [phone] Ks dical nal [address] [place] [address] 2021-04-26 2021-04-26 Office [facility] 1.2.840.114 [id number] Univers 14:49:46 15:40:00 Visit Brandy Singh 350.1.13.10 ity of [place] 4.2.7.2.686 [place] Profess[place] [phone] Ks dical nal [address] [place] [address] 2021-04-26 2021-04-26 Outpatient [facility] [id number] Univers 15:00:00 15:00:00 BRANDY sheldon [facility] 2021-04-13 2021-04-13 Telephone Roland [facility] 1.2.088.818 [id number] Univers 00:00:00 00:00:00 Herman Shafer 350.1.13.10 it y of [place] 4.2.7.2.686 Baljeet as Professio [phone] [address] Office [facility] One 2021-04-12 2021-04-12 Hospital [facility] 1.2.840.114 [id number] Univers 14:28:30 23:59:00 Encounter Herman Singh 350.1.13.10 ity of [place] 4.2.7.2.686 [place] [facility] [phone] [facility] [address] 2021-04-12 2021-04-12 Office [facility] 1.2.840.114 [id number] Univers 13:27:35 13:42:35 Visit Herman Shafer 350.1.13.10 it y of [place] 4.2.7.2.686 Baljeet as Professio [phone] [address] One 2021-04-12 2021-04-12 Outpatient R ROLAND [facility] [id number] Univers 13:30:00 13:30:00 HERMAN sheldon [facility] 2021-04-12 2021-04-12 Orders Doctor HERMINIA 1.2.840.114 [id number] Univers 00:00:00 00:00:00 Only Unassigned, SARAH 350.1.13.10 ity of [place] [facility] 4.2.7.2.686 Baljeet as [phone] [facility] [address] 2021-04-05 2021-04-05 Telephone [facility] 1.2.317.362 [id number] Univers 00:00:00 00:00:00 Herman Shafer 350.1.13.10 it y of [place] 4.2.7.2.686 Baljeet as Professio [phone] [address] Office [facility] One 2021-04-02 2021-04-02 Telephone [facility] 1.2.840.114 [id number] Univers 00:00:00 00:00:00 [facility] 350.1.13.10 it y of Surgical 4.2.7.2.686 Baljeet as Specialti [phone] Ks dical es 198 [facility] 2021-04-01 2021-04-01 Reftammie Roland [facility] 1.2.840.114 [id number] Univers 00:00:00 00:00:00 [facility] 350.1.13.10 it y of [place] 4.2.7.2.686 Baljeet as Professio [phone] Me dical nal [address] Office [facility] One 2021-03-22 2021-03-22 Telephone [facility] 1.2.840.114 [id number] Univers 00:00:00 00:00:00 Skip [facility] 350.1.13.10 it y of Surgical 4.2.7.2.686 Baljeet as Specialti [phone] Ks dical es 198 [facility] 2021-03-22 2021-03-22 Orders Doctor HERMINIA 1.2.840.114 [id number] Univers 00:00:00 00:00:00 Only Unassigned, SARAH 350.1.13.10 ity of [place] [facility] 4.2.7.2.686 Baljeet as [phone] [address] 2021-03-18 2021-03-18 Telephone [facility] 1.2.840.114 [id number] Univers 00:00:00 00:00:00 Skip Singh 350.1.13.10 i ty of [place] 4.2.7.2.686 [place] [phone] Ks dical nal 198 [facility] 2021-03-16 2021-03-16 Telephone [facility] 1.2.399.366 [id number] Univers 00:00:00 00:00:00 Yemi Singh 350.1.13.10 i ty of [place] 4.2.7.2.686 [place] [phone] [place]s dical nal 198 [facility] 2021-03-15 2021-03-15 Office [facility] 1.2.286.013 [id number] Univers 13:38:05 14:13:02 Visit Skip [facility] 350.1.13.10 it y of Surgical 4.2.7.2.686 Baljeet as Specialti [phone] Ks dical es 198 [facility] 2021-03-15 2021-03-15 Outpatient Alex MERRILL [facility] [id number] Univers 13:45:00 13:45:00 SKIP sheldon [facility] 2021-02-16 2021-02-16 [facility] 1.2.840.114 [id number] Univers 10:23:22 23:59:00 Encounter Herman Singh 350.1.13.10 ity of [place] 4.2.7.2.686 [place] [phone] [facility] [address] 2021-02-16 2021-02-16 [facility] 1.2.840.114 [id number] Univers 10:22:27 10:22:27 Encounter Herman Jack[place]onton 350.1.13.10 ity of [place] 4.2.7.2.686 [place] [id number] [facility] [address] 2021-02-16 2021-02-16 Outpatient [facility] [id number] Univers 00:00:00 00:00:00 HERMAN sheldon [facility] 2021-02-16 2021-02-16 Refill Doctor [facility] 1.2.840.114 [id number] Univers 00:00:00 00:00:00 Unassigned, Health 350.1.13.10 ity of [place] Samantha 4.2.7.2.686 Baljeet as Professio [phone] [place] dical nal [address] Office Building One 2021-02-16 2021-02-16 Refill Winsome [facility] 1.2.840.114 [id number] Univers 00:00:00 00:00:00 Ben Samantha 350.1.13.10 i ty of [place] 4.2.7.2.686 [place] [phone] [place]s dical nal 085 [facility] 2021-02-11 2021-02-11 Office [facility] 1.2.840.114 [id number] Univers 10:11:49 10:47:01 Visit [facility] 350.1.13.10 it y of [place] 4.2.7.2.686 Baljeet as Professio [phone] [address] One 2021-02-11 2021-02-11 Outpatient R ROLAND [facility] [id number] Univers 10:15:00 10:15:00 HERMAN ity [facility] 2021-02-05 2021-02-05 Orders Doctor HERMINIA 1.2.840.114 [id number] Univers 00:00:00 00:00:00 Only Unassigned, SARAH 350.1.13.10 ity of [place] [facility] 4.2.7.2.686 Baljeet as [phone] [address] 2021-02-04 2021-02-04 Refill Roland [facility] 1.2.840.114 [id number] Univers 00:00:00 00:00:00 [facility] 350.1.13.10 it y of [place] 4.2.7.2.686 Baljeet as Professio [phone] [address] Office [facility] One 2021-02-02 2021-02-02 Patient Jack [facility] 1.2.840.114 [id number] Univers 00:00:00 00:00:00 Outreach Jessika Barnett [facility] 350.1.13.10 i ty of [place] 4.2.7.2.686 Baljeet as Professio [phone] [address] One 2021-02-01 2021-02-01 Refill Doctor [facility] 1.2.840.114 [id number] Univers 00:00:00 00:00:00 Unassigned, Health 350.1.13.10 ity [place] 4.2.7.2.686 Baljeet as Professio [phone] [address] One 2021-01-27 2021-01-27 Orders Doctor HERMINIA 1.2.840.114 [id number] Univers 00:00:00 00:00:00 Only Unassigned, SARAH 350.1.13.10 ity of [place] [facility] 4.2.7.2.686 Baljeet as [id number] [facility] [address] 2021-01-21 2021-01-21 Hospital [facility] 1.2.840.114 [id number] Univers 12:40:28 23:59:00 Encounter Herman iSngh 350.1.13.10 ity of [place] 4.2.7.2.686 [place] [phone] [facility] [address] 2021-01-21 2021-01-21 Office [facility] 1.2.840.114 [id number] Univers 12:04:11 12:25:41 Visit Herman [facility] 350.1.13.10 it y of [place] 4.2.7.2.686 Baljeet as Professio [phone] [facility] nal [address] [place] Office Building One 2021-01-21 2021-01-21 Outpatient R ROLAND [facility] [id number] Univers 12:15:00 12:15:00 [facility] 2021-01-21 2021-01-21 Orders Doctor HERMINIA 1.2.840.114 [id number] Univers 00:00:00 00:00:00 Only Unassigned, SARAH [id number] ity of [place] [facility] 4.2.7.2.686 Baljeet as [phone] [facility] [address] [place] 2021-01-20 2021-01-20 Ancillary Yi Kennedy [facility] 1 .2.840.114 [id number] Univers 09:53:52 10:53:52 Visit Skip Merrill [id number] ity of [place] 4[place]2.7.2.686 [place] Profess[place] [phone] [place] d[place] nal [address] [place] [address] 2021-01-20 2021-01-20 Outpatient R DESIRAE [facility] [id number] Univers 10:15:00 10:15:00 SKIP sheldon [facility] 2021-01-07 2021-01-07 Telephone [facility] [id number] Univers 00:00:00 00:00:00 [facility] [id number] it y of [place] [id number] Baljeet as Professio [phone] [place] dicmd nal [address] [place] [address] 2021-01-05 2021-01-05 [facility] 1.2.840.114 [id number] Univers 12:07:20 23:59:00 Encounter Herman Singh [id number] ity of [place] [id number] [place] [facility] [phone] [facility] [address] [place] 2021-01-05 2021-01-05 [facility] [id number] Univers 00:00:00 00:00:00 HERMAN sheldon [facility] 2021-01-05 2021-01-05 Orders Doctor HERMINIA 1.2.840.114 [id number] Univers 00:00:00 00:00:00 Only Unassigned, SARAH [id number] ity of [place] [facility] [id number] Baljeet as [phone] [facility] [address] [place] 2020-12-30 2020-12-30 [facility] [id number] Univers 00:00:00 00:00:00 HERMAN sheldon [facility] 2020-12-25 2020-12-25 [facility] 1.2.840.114 [id number] Univers 00:00:00 00:00:00 [facility] [id number] it y of [place] [id number] Baljeet as Professio [phone] [place] dical [place]al [address] [place] [address] Office [facility] One 2020-12-23 2020-12-23 [facility] 1.2.840.114 [id number] Univers 12:28:15 13:38:28 Visit Herman [facility] [id number] it y of [place] [id number] Baljeet as Professio [phone] [place] dical nal [address] [place] [address] Office [facility] One 2020-12-23 2020-12-23 [facility] Fam Pob I [facility] [place] 1.2. 840.114 [id number] Univers 13:09:13 13:29:13 Visit Herman Watkins [facility] 350.1.13.10 ity of [place] 4.2.7.2.686 Baljeet as Professio [phone] [address] Office [facility] One 2020-12-23 2020-12-23 Outpatient R ROLAND [facility] [id number] Univers 12:30:00 12:30:00 HERMAN amy [facility] 2020-10-22 2020-10-22 Outpatient R BARBARA [facility] [id number] Univers 10:20:00 10:20:00 EUGENIA amy [facility] 2020-10-09 2020-10-09 [facility]phone [facility] 1.2.442.595 [id number] Univers 00:00:00 00:00:00 Herman [facility] 350.1.13.10 it y of [place] 4.2.7.2.686 Baljeet as Professio [phone] [address] One 2020-10-09 2020-10-09 [facility]phone [facility] 1.2.986.415 [id number] 00:00:00 00:00:00 [facility] 350.1.13.10 [place] 4.2.7.2.686 Professio [phone] [address] One 2020-10-01 2020-10-01 Outpatient R BARBARA [facility] [id number] Univers 10:10:00 10:10:00 EUGENIA [facility] 2020-09-29 2020-09-29 Telephone Roland [facility] 1.2.235.153 [id number] Univers 00:00:00 00:00:00 [facility] 350.1.13.10 it y of [place] 4.2.7.2.686 Baljeet as Professio [phone] [address] Office [facility] One 2020-09-29 2020-09-29 Patient Casper [facility] 1.2.840.114 [id number] Univers 00:00:00 00:00:00 Outreach Esaumolly BUTLER 350.1.13.10 i ty of [facility] [place] [phone] [place] dical [address] [place] 2020-09-29 2020-09-29 Telephone Roland MDRENÉ 1.2.931.989 [id number] 00:00:00 00:00:00 [facility] 350.1.13.10 [place] 4.2.7.2.686 Professio [phone] [place] [address] Office [facility] 2020-09-24 2020-09-24 Refill Winsome [facility] 1.2.840.114 [id number] Univers 00:00:00 00:00:00 Shiwan [place] 350.1.13.10 i ty of [place] [phone] [facility] 2020-09-24 2020-09-24 Refill Winsome [facility] 1.2.840.114 [id number] 00:00:00 00:00:00 Shiwan [place] 350.1.13.10 [place] 4.2.7.2.686 Professio [phone] [address] 2020-09-23 2020-09-23 Outpatient R BARBARA [facility] [id number] Univers 15:40:00 15:40:00 EUGENIA ity of [facility] 2020-09-14 2020-09-14 Orders Doctor HERMINIA 1.2.840.114 [id number] Univers 00:00:00 00:00:00 Only Unassigned, SARAH 350.1.13.10 ity of [place] [facility] 4.2.7.2.686 Baljeet as [phone] [address] 2020-09-03 2020-09-03 [facility] 1.2.840.114 [id number] Univers 00:00:00 00:00:00 [facility] 350.1.13.10 it y of [place] 4.2.7.2.686 Baljeet as Professio [phone] [facility] [address] [place] Office [facility] 2020-08-19 2020-08-19 Telephone [facility] 1.2.444.206 [id number] Univers 00:00:00 00:00:00 [facility] 350.1.13.10 it y of [place] 4.2.7.2.686 Baljeet as Professio [phone] [place] dical nal [address] [place] Office [facility] One 2020-08-17 2020-08-17 [facility], Adc Fam Pob I [facility] 1.2. 840.114 [id number] Univers 09:30:19 09:47:15 Visit Herman Watkins [facility] 350.1.13.10 ity of [place] 4.2.7.2.686 Baljeet as Professio [phone] [facility] nal [address] [place] Office [facility] One 2020-08-17 2020-08-17 Outpatient R ROLAND [facility] [id number] Univers 09:00:00 09:00:00 HERMAN ity [facility] 2020-08-14 2020-08-14 Telephone [facility] 1.2.667.829 [id number] Univers 00:00:00 00:00:00 [facility] 350.1.13.10 it y of [place] 4.2.7.2.686 Baljeet as Professio [phone] [facility] nal [address] [place] Office [facility] One 2020 2020 Reftammie [facility] 1.2.840.114 [id number] Univers 00:00:00 00:00:00 Shiwan [place] 350.1.13.10 i ty of [place] [phone] [facility] nal 085 [facility] 2020-07-16 2020-07-16 Reftammie Johnson [facility] 1.2.840.114 [id number] Univers 00:00:00 00:00:00 [facility] 350.1.13.10 it y of [place] 4.2.7.2.686 Baljeet as Professio [phone] [facility] [address] [place] Office [facility] One 2020-07-16 2020-07-16 Re[facility]ammie [facility] 1.2.840.114 [id number] Univers 00:00:00 00:00:00 [facility] 350.1.13.10 it y of [place] 4.2.7.2.686 Baljeet as Professio [phone] [place] dical nal [address] [facility] 2020-07-16 2020-07-16 Orders Doctor HERMINIA 1.2.840.114 [id number] Univers 00:00:00 00:00:00 Only Unassigned, SARAH 350.1.13.10 ity of [place] [facility] 4.2.7.2.686 Baljeet as [phone] [address] 2020-07-15 2020-07-15 Gaurang [facility] 1.2.840.114 [id number] Univers 00:00:00 00:00:00 Shiwan [place] 350.1.13.10 i ty of [place].2.[place] [phone] [place] dicmd nal 059 [facility] 2020-07-02 2020-07-02 Orders Doctor HERMINIA 1.2.840.114 [id number] Univers 00:00:00 00:00:00 Only Unassigned, SARAH 350.1.13.10 ity of [place] [facility] 4.2.7.2.686 Baljeet as [phone] [address] 2020-06-18 2020-06-18 Telephone [facility] 1.2.821.986 [id number] Univers 00:00:00 00:00:00 [facility] 350.1.13.10 it y of [place] 4.2.7.2.686 Baljeet as Professio [phone] [place] dical nal [address] [facility] 2020-06-17 2020-06-17 Gaurang [facility] 1.2.840.114 [id number] Univers 00:00:00 00:00:00 Shiwan [place] 350.1.13.10 i ty of [place] [phone] [place] dicmd nal 085 [facility] 2020-06-12 2020-06-12 Telephone [facility] 1.2.321.035 [id number] Univers 00:00:00 00:00:00 [facility] 350.1.13.10 it y of [place] 4.2.7.2.686 Baljeet as Professio [phone] [place] dical nal [address] [place] Office Building One 2020-05-25 2020-05-25 [facility] 1.2.840.114 [id number] Univers 00:00:00 00:00:00 [facility] 350.1.13.10 it y of [place] 4.2.7.2.686 Baljeet as Professio [phone] [place] dical nal [address] [place] Office Building One 2020-05-25 2020-05-25 Refill [facility] 1.2.840.114 [id number] Univers 00:00:00 00:00:00 [facility] 350.1.13.10 it y of [place] 4.2.7.2.686 Baljeet as Professio [phone] [place] dical nal [address] [place] Office [facility] One 2020-05-22 2020-05-22 [facility] 1.2.840.114 [id number] Univers 00:00:00 00:00:00 [facility] 350.1.13.10 it y of [place] 4.2.7.2.686 Baljeet as Professio [phone] [place] dical nal [address] [place] Office [facility] One 2020-05-22 2020-05-22 Reftammie [facility] 1.2.840.114 [id number] Univers 00:00:00 00:00:00 Shiwan [place] 350.1.13.10 i ty of [place].2.[place] [phone] [place] dical nal 085 [facility] 2020-05-21 2020-05-21 Office [facility] 1.2.840.114 [id number] Univers 15:36:34 16:06:34 Visit [facility] 350.1.13.10 it y of [place] 4.2.7.2.686 Baljeet as Professio [phone] [place] dical nal [address] [place] Office [facility] 2020-05-21 2020-05-21 [facility] [id number] Univers 16:00:00 16:00:00 AUBREY sheldon [facility] 2020-05-04 2020-05-04 Orders Doctor HOPE 1.2.840.114 [id number] Univers 00:00:00 00:00:00 Only Unassigned, SARAH 350.1.13.10 ity of [place] [facility] 4.2.7.2.686 Baljeet as [phone] [address] 2020-04-22 2020-04-22 Reftammie [facility] 1.2.840.114 [id number] Univers 00:00:00 00:00:00 [facility] 350.1.13.10 it y of [place] 4.2.7.2.686 Baljeet as Professio [phone] [address] Office [facility] One 2020-04-22 2020-04-22 Reftammie Colesoswaldoalexsandra [facility] 1.2.840.114 [id number] Univers 00:00:00 00:00:00 [facility] 350.1.13.10 it y of Vishnu Singh 4.2.7.2.686 Baljeet as Professio [phone] [facility] nal [address] [place] [address] 2020-04-12 2020-04-12 Re[facility]ammie [facility] 1.2.840.114 [id number] Univers 00:00:00 00:00:00 [facility] 350.1.13.10 it y of [place] 4.2.7.2.686 Baljeet as Professio [phone] [address] 2020-04-03 2020-04-03 Telephone [facility] 1.2.878.205 [id number] Univers 00:00:00 00:00:00 Herman Singh 350.1.13.10 i ty of [place].2.[place] [phone] [address] 2020-04-02 2020-04-02 Orders Doctor HERMINIA 1.2.840.114 [id number] Univers 00:00:00 00:00:00 Only Unassigned, SARAH 350.1.13.10 ity of [place] [facility] 4.2.7.2.686 Baljeet as [phone] [address] 2020-03-31 2020-03-31 [facility] 1.2.047.437 [id number] Univers 00:00:00 00:00:00 [facility] 350.1.13.10 it y of [place] 4.2.7.2.686 Baljeet as Professio [phone] [place] dical nal [address] [place] [address] One 2020-03-11 2020-03-11 [facility] Darioalexsandra [facility] 1.2.840.114 [id number] Univers 00:00:00 00:00:00 [facility] 350.1.13.10 it y of [place] 4.2.7.2.686 Baljeet as Professio [phone] [place] dical nal [address] [place] [address] One 2020-02-15 2020-02-15 [facility] 1.2.840.114 [id number] Univers 00:00:00 00:00:00 Shigildardo Singh 350.1.13.10 i ty of [place]2.7.2.[place] [phone] Ks deionmd nal [address] [place] [address] 2020-01-21 2020-01-21 Telephone [facility] 1.2.756.836 [id number] Univers 00:00:00 00:00:00 [facility] [place] 350.1.13.10 i ty of [place].7.2.[place] [phone] [facility] nal [address] [place] [address] 2020-01-20 2020-01-20 [facility] 1.2.840.114 [id number] Univers 00:00:00 00:00:00 [facility] 350.1.13.10 it y of [place] 4.2.7.2.686 Baljeet as Professio [phone] [facility] [address] [place] [address] One 2020-01-17 2020-01-17 Telephone [facility] 1.2.141.937 [id number] Univers 00:00:00 00:00:00 [facility] 350.1.13.10 it y of [place] 4.2.7.2.686 Baljeet as Professio [phone] [facility] nal [address] [place] [address] One 2020-01-16 2020-01-16 [facility] 1.2.840.114 [id number] Univers 00:00:00 00:00:00 [facility] 350.1.13.10 it y of [place] 4.2.7.2.686 Baljeet as Professio [phone] [address] 2020-01-16 2020-01-16 Refill [facility] 1.2.840.114 [id number] Univers 00:00:00 00:00:00 Herman Singh 350.1.13.10 i ty of [place] [phone] [address] 2020-01-01 2020-01-01 Telephone [facility] 1.2.755.581 [id number] Univers 00:00:00 00:00:00 [facility] 350.1.13.10 it y of [place] 4.2.7.2.686 Baljeet as Professio [phone] [address] 2019-12-24 2019-12-24 Outpatient R ELIZABETH [facility] [id number] Univers 11:00:00 11:00:00 YUKI ity of [facility] 2019-12-24 2019-12-24 Telemedici SharynalexsandraNOR[facility] 1.2.840.114 [id number] Univers 10:28:50 10:43:50 ne Visit Yuki Singh 350.1.13.10 ity of [place] 4.2.7.2.686 [place] Profess[place] [phone] [address] 2019-12-20 2019-12-20 Telephone [facility] 1.2.696.386 [id number] Univers 00:00:00 00:00:00 Herman Singh 350.1.13.10 i ty of [place]7.2.[place] [phone] [address] 2019-12-19 2019-12-19 Orders Doctor HOPE 1.2.840.114 [id number] Univers 00:00:00 00:00:00 Only Unassigned, SARAH 350.1.13.10 ity of [place] [facility] 4.2.7.2.686 Baljeet as [phone] [facility] [address] [place] 2019-12-18 2019-12-18 Telephone [facility] 1.2.320.667 [id number] Univers 00:00:00 00:00:00 [facility] 350.1.13.10 it y of [place] 4.2.7.2.686 Baljeet as Professio [phone] [address] 2019-12-04 2019-12-04 [facility] [id number] Univers 12:15:00 12:15:00 HERMAN sheldon [facility] 2019-12-04 2019-12-04 Telemedici [facility] 1.2.840.114 [id number] Univers 06:54:04 07:09:04 ne Visit Herman [facility] 350.1.13.10 i ty of [place] 4.2.7.2.686 Baljeet as Professio [phone] [address] 2019-10-31 2019-10-31 Refill [facility] 1.2.840.114 [id number] Univers 00:00:00 00:00:00 [facility] 350.1.13.10 it y of [place] 4.2.7.2.686 Baljeet as Professio [phone] [address] 2019-10-25 2019-10-25 [facility] [id number] Univers 10:20:22 23:59:00 HERMAN sheldon [facility] 2019-10-25 2019-10-25 Hospital [facility] 1.2.840.114 [id number] Univers 10:00:00 23:59:00 Encounter Herman Singh 350.1.13.10 ity of [place].7.2.[place] [phone] [facility] [address] [place] 2019-10-17 2019-10-17 Office [facility] 1.2.840.114 [id number] Univers 14:16:28 14:31:28 Visit [facility] 350.1.13.10 it y of [place] 4.2.7.2.686 Baljeet as Professio [phone] [place] dical nal [address] [place] Office [facility] One 2019-10-17 2019-10-17 Orders Doctor HERMINIA 1.2.840.114 [id number] Univers 00:00:00 00:00:00 Only Unassigned, SARAH 350.1.13.10 ity of [place] [facility] 4.2.7.2.686 Baljeet as [phone] [address] 2019-10-14 2019-10-14 Gaurang Johnson [facility] 1.2.840.114 [id number] Univers 00:00:00 00:00:00 [facility] 350.1.13.10 it y of [place] 4.2.7.2.686 Baljeet as Professio [phone] [facility] nal [address] [place] [address] One 2019-09-25 2019-09-25 Orders Doctor HERMINIA 1.2.840.114 [id number] Univers 00:00:00 00:00:00 Only Unassigned, SARAH 350.1.13.10 ity of [place] [facility] 4.2.7.2.686 Baljeet as [phone] [address] 2019-05-17 2019-05-17 Gaurang [facility] 1.2.840.114 [id number] Univers 00:00:00 00:00:00 [facility] 350.1.13.10 it y of [place] 4.2.7.2.686 Baljeet as Professio [phone] [facility] nal [address] [place] [address] One 2019-05-15 2019-05-15 Gaurang [facility] 1.2.840.114 [id number] Univers 00:00:00 00:00:00 [facility] 350.1.13.10 it y of [place] 4.2.7.2.686 Baljeet as Professio [phone] [facility] nal [address] [place] [address] One 2019-04-15 2019-04-15 Angela [facility] 1.2.408.199 [id number] Univers 00:00:00 00:00:00 [facility] 350.1.13.10 it y of [place] 4.2.7.2.686 Baljeet as Professio [phone] Me dical nal [address] Building One 2007-07-09 2007-07-09 Orders Doctor HERMINIA 1.2.840.114 [id number] Univers 00:00:00 00:00:00 Only Unassigned, SARAH 350.1.13.10 ity of [place] [facility] 4.2.7.2.686 Baljeet as [phone] [facility] [address] [place] Results Test Description Test Time Test Comments Results Result Comments Source TROPONIN I 2023-02-24 01:21:44 Test Item Value Reference Range Interpretation Comme nts TROPONIN I (test code = 9585697442) 0.002 ng/mL <=0.034 DEVENDRA (test code = DEVENDRA) Reference (Normal) Range (defined by the 99th percentile reference limit): <= 0.034 ng/mL Note: Cardiac troponin begins to rise 3-4 hours after the onset of ischemia. Repeat in 4-6 hours if the sample was drawn within 3-4 hours of the onset of the symptom and found normal. Diagnosis of myocardial injury is made with acute changes in cTn concentrations with at least one serial sample above the 99th percentile upper reference limit (URL), taken together with the patient's clinical presentation. Biotin has been reported to cause a negative bias, interpret results relative to patient's use of biotin. Lab Interpretation (test code = Normal 03438-4) [facility]. METABOLIC PANEL (49539)2023-02-23 23:09:07 Test Item Value Reference Range Interpretation Comments NA (test code = 137 mmol/L 135-145 9765665121) K (test code = 3.1 mmol/L 3.5-5.0 L 7846816174) CL (test code = 98 mmol/L 98-108 9862874503) CO2 TOTAL (test code = 29 mmol/L 23-31 5658224023) AGAP (test code = 10 2-16 4897694953) BUN (test code = 10 mg/dL 7-23 4150839822) GLUCOSE (test code = 121 mg/dL 70-110 H 4332970888) CREATININE (test code = 0.53 mg/dL 0.50-1.04 8760161782) TOTAL BILI (test code = 0.9 mg/dL 0.1-1.3 6809327220) CALCIUM (test code = 8.9 mg/dL 8.6-10.6 3141646243) T PROTEIN (test code = 6.5 g/dL 6.3-8.2 1043524761) ALBUMIN (test code = 3.9 g/dL 3.5-5.0 0660856105) ALK PHOS (test code = 65 U/L 34-122 1863313430) ALTv (test code = 24 U/L 5-35 1742-6) AST(SGOT) (test code = 35 U/L 13-40 9681850204) eGFR (test code = 115.1 mL/min/1.73m2 8719565567) DEVENDRA (test code = DEVENDRA) Association of Glomerular Filtration Rate (GFR) and Staging of Kidney Disease* + --+ --+ ------+| GFR (mL/min/1.73 m2) ?| With Kidney Damage ?| ?Without Kidney Damage+ --------+ --------+ +| ?>90 ?| ?Stage one ?| ? Normal ?+ ---+ ---+ -------+| ?60-89 ?| ?Stage two ?| ? Decreased GFR ? + --+ --+ ------+| ?30-59 ?| ?Stage three ?| ? Stage three ? + --+ --+ ------+| ?15-29 ?| ?Stage four ? | ? Stage four ?+ ---+ ---+ -------+| ?<15 (or dialysis) ? ?| ?Stage five ? | ? Stage five ?+ ---+ ---+ -------+ *Each stage assumes the associated GFR level has been in effect for at least three months. ?Stages 1 to 5, with or without kidney disease, indicate chronic kidney disease. Notes: Determination of stages one and two (with eGFR >59mL/min/1.73 m2) requires estimation of kidney damage for at least three months as defined by structural or functional abnormalities of the kidney, manifested by either:Pathological abnormalities or Markers of kidney damage (including abnormalities in the composition of the blood or urine or abnormalities in imaging tests). Lab Interpretation Abnormal (test code = 65847-0) [facility]47 Test Item Value Reference Range Interpretation Comments LIPASE (test code = 7441071469) 58 U/L 0-220 Lab Interpretation (test code = Normal 02641-1) [facility] WITH [id number] 23:00:04 Test Item Value Reference Range Interpretation Comments WBC (test code = 13.55 See_Comment H [Automated 6690-2) message] The system which generated this result transmit aleksandra reference range : 4.30 - 11.10 10*3/?L. The reference range was not used to interpret this result as normal/abnormal . RBC (test code = 4.80 See_Comment [Automated 789-8) message] The system which generated this result transmit aleksandra reference range : 3.93 - 5.25 10*6/?L. The reference range was not used to interpret this result as normal/abnormal . HGB (test code = 15.0 g/dL 11.6-15.0 718-7) HCT (test code = 43.4 % 35.7-45.2 4544-3) MCV (test code = 90.4 fL 80.6-95.5 787-2) MCH (test code = 31.3 pg 25.9-32.8 785-6) MCHC (test code = 34.6 g/dL 31.6-35.1 786-4) RDW-SD (test code = 50.7 fL 39.0-49.9 H 16066-3) RDW-CV (test code = 15.2 % 12.0-15.5 788-0) PLT (test code = 253 See_Comment [Automated 777-3) message] The system which generated this result transmit aleksandra reference range : 166 - 358 10*3/ ?L. The reference range was not u sed to interpret th is result as normal/abnormal . MPV (test code = 9.4 fL 9.5-12.9 L 33678-3) NRBC/100 WBC (test 0.0 See_Comment [Automat ed code = 9852959838) message] The system which generated this result transmit aleksandra reference range : 0.0 - 10.0 /100 WBCs. The reference range was not used to interpret this result as normal/abnormal . NRBC x10^3 (test code See_Comment [Auto mated = 5532100000) message] The system which generated this result transmit aleksandra reference range : 10*3/?L. The reference range was not used to interpret this result as normal/abnormal . GRAN MAT (NEUT) % 84.0 % (test code = 770-8) IMM GRAN % (test code 0.50 % = 3796831934) LYMPH % (test code = 6.9 % 736-9) MONO % (test code = 8.1 % 5905-5) EOS % (test code = 0.2 % 713-8) BASO % (test code = 0.3 % 706-2) GRAN MAT x10^3(ANC) 11.37 10*3/uL 1.88-7.09 H (test code = 4860626460) IMM GRAN x10^3 (test 0.07 10*3/uL 0.00-0.06 H code = 7239134081) LYMPH x10^3 (test code 0.94 10*3/uL 1.32-3.29 L = 731-0) MONO x10^3 (test code 1.10 10*3/uL 0.33-0.92 H = 742-7) EOS x10^3 (test code = 0.03 10*3/uL 0.03-0.39 711-2) BASO x10^3 (test code 0.04 10*3/uL 0.01-0.07 = 704-7) Lab Interpretation Abnormal (test code = 46651-3) [facility] W/O [id number] 11:16:00 Test Item Value Reference Range Interpretation [...] = 0.00 K/mm3 0.0-0.1 N NRBC#) WBC [id number] 11:16:00 Test Item Value Reference Range Interpretation [...] = NORMAL NORMAL PLTMORPH) - XR CHEST [id number] 08:27:00 Patient Name: MOISÉS CANNON Unit No: [id number] EXAMS: CPT CODE: [id number] XR CHEST 1V 23668 EXAMINATION: - XR CHEST 1V. LOCATION: B2. [...] change in the appearance of the chest. Electronically Signedby Pushpa Wagoner MD on 12/19/2018 at 0827 Reported and signed by: Pushpa Wagoner MD CC: Alen Hanson MD Technologist: Maryjane Giles RT(R) Transcrpt Date/Tm/Trnsp: 12/19/2018 (826) [email or web address] Orig Print D/T: S: 12/19/2018 (829) [facility] NAME: MOISÉS CANNON [address] [place] PHYS: [place] [address] : 1955 AGE: 63 SEX: F LOC: Z.SI04 A PHONE #: [phone] EXAM DATE: 12/19/2018 STATUS: ADM IN FAX #: [phone] RADIOLOGY NO: PAGE 1 Signed ReportBASIC METABOLIC [id number] 06:07:00 Test Item Value Reference Range Interpretation [...] code = 9.2 MG/DL 8.4-10.2 N CA) [id number] 06:07:00 Test Item Value Reference Range Interpretation Comments MAGNESIUM (test code = MAG) 2.0 MG/DL 1.6-2.3 N CBC W/O [id number] 05:55:00 Test Item Value Reference Range Interpretation [...] = 0.00 K/mm3 0.0-0.1 N NRBC#) WBC [id number] 05:55:00 Test Item Value Reference Range Interpretation Comments RBC MORPHOLOGY REQUIRED (test code = RBCM) TOTAL CELLS COUNTED (test code = TCC) #CELLS SEGMENTED NEUTROPHILS (test code = % 36.2-73.8 SEG) LYMPHOCYTE (test code = LYMPH) % 12.9-45.1 MONOCYTE (test code = MON) % 0-11 PLATELET ESTIMATE (test code = ADEQUATE PLTEST) PLATELET MORPHOLOGY (test code = NORMAL PLTMORPH) CBC W/AUTO [id number] 05:55:00 Test Item Value Reference Range Interpretation [...] = 0.00 K/mm3 0.0-0.1 N NRBC#) WBC [id number] 05:55:00 Test Item Value Reference Range Interpretation Comments RBC MORPHOLOGY REQUIRED (test code = RBCM) TOTAL CELLS COUNTED (test code = TCC) #CELLS SEGMENTED NEUTROPHILS (test code = % 36.2-73.8 SEG) LYMPHOCYTE (test code = LYMPH) % 12.9-45.1 MONOCYTE (test code = MON) % 0-11 PLATELET ESTIMATE (test code = ADEQUATE PLTEST) PLATELET MORPHOLOGY (test code = NORMAL PLTMORPH) - XR CHEST [id number] 13:33:00 Patient Name: MOISÉS CANNON Unit No: [id number] EXAMS: CPT CODE: [id number] XR CHEST 1V [id number] Chest Radiograph History: RIGHT CHEST TUBE REMOVAL Comparison: December 18, 2018, earlier the same da y Location: R16 A single frontal view of the chest is submitted. The heart appears unchanged in size. Pulmonary vasculature is unremarkable. The right- sided chest tube has been removed. No pneumothoraxis identified. There is a minimal patchy opacity in the left lung base. The bones appear unchanged. Severe subcutaneous emphysema is again identified. The vascular catheter appears unchanged. IMPRESSION: Minimal patchy opacity left lung base. This could be due to atelectasis or pneumonia. Severe subcutaneous emphysema. at 1333 Reported and signed by: Beny Aguero MD CC: Alen Hanson MD; Oumou Stanley NP Technologist:Jo-Ann Hall (RT) Transcrpt Date/Tm/Trnsp: 12/18/2018 (8713) JuanPMT Orig Print D/T: S: 12/18/2018 (0586) [facility] NAME: MOISÉS CANNON [address] PHYS: DONY.Giovanna - [place] [address] : 1955 AGE: 63 SEX: F LOC: ZCourtneySI04 A PHONE #: EXAM DATE: 12/18/2018 STATUS: ADM IN FAX #: [phone] RADIOLOGY NO: PAGE 1 Signed ReportCBC W/O [id number] 09:20:00 Test Item Value Reference Range Interpretation [...] = 0.00 K/mm3 0.0-0.1 N NRBC#) WBC [id number] 09:20:00 Test Item Value Reference Range Interpretation [...] = NORMAL NORMAL PLTMORPH) - XR CHEST [id number] 08:19:00 Patient Name: MOISÉS CANNON Unit No: [id number] EXAMS: CPT CODE: [id number] XR CHEST 1V 29388 EXAMINATION: - XR CHEST 1V. LOCATION: B2. HISTORY: F/U. COMPARISON: Radiograph dated 12/17/2018. TE CHNIQUE: Single AP view of the chest was obtained. FINDINGS: Right chest tube and right IJ line areunchanged in position. The heart is normal in size. Small right pleural effusion is present. Mild left basilar opacities are unchanged. Extensive subcutaneous emphysema is seen in the soft tissues. No new osseous abnormality is identified. IMPRESSION: Small right pleural effusion. Mild left basilar opacities, likely representing atelectasis. at 0819 Reported and signed by: Pushpa Wagoner MD CC: Alen Hanson MD Technologist: RT Luc(R) Transcrpt Date/Tm/Trnsp: 12/18/2018 (08) t.SDR.PR7 Orig Print D/T: S: 12/18/2018 (08) [facility] NAME: MOISÉS CANNON [address] PHYS: [place] [address] : 1955 AGE: 63 SEX: F LOC: Z.SI04 A PHONE #: [phone] EXAM DATE: 12/18/2018 STATUS: ADM IN FAX #: [phone] RADIOLOGY NO: PAGE 1 Signed ReportBASIC METABOLIC [id number] 05:44:00 Test Item Value Reference Range Interpretation [...] code = 8.8 MG/DL 8.4-10.2 N CA) [id number] 05:44:00 Test Item Value Reference Range Interpretation Comments MAGNESIUM (test code = MAG) 1.9 MG/DL 1.6-2.3 N CBC W/O [id number] 05:30:00 Test Item Value Reference Range Interpretation [...] = 0.00 K/mm3 0.0-0.1 N NRBC#) WBC [id number] 05:30:00 Test Item Value Reference Range Interpretation Comments RBC MORPHOLOGY REQUIRED (test code = RBCM) TOTAL CELLS COUNTED (test code = TCC) #CELLS SEGMENTED NEUTROPHILS (test code = % 36.2-73.8 SEG) LYMPHOCYTE (test code = LYMPH) % 12.9-45.1 MONOCYTE (test code = MON) % 0-11 PLATELET ESTIMATE (test code = ADEQUATE PLTEST) PLATELET MORPHOLOGY (test code = NORMAL PLTMORPH) CBC W/AUTO [id number] 05:30:00 Test Item Value Reference Range Interpretation [...] = 0.00 K/mm3 0.0-0.1 N NRBC#) WBC [id number] 05:30:00 Test Item Value Reference Range Interpretation Comments RBC MORPHOLOGY REQUIRED (test code = RBCM) TOTAL CELLS COUNTED (test code = TCC) #CELLS SEGMENTED NEUTROPHILS (test code = % 36.2-73.8 SEG) LYMPHOCYTE (test code = LYMPH) % 12.9-45.1 MONOCYTE (test code = MON) % 0-11 PLATELET ESTIMATE (test code = ADEQUATE PLTEST) PLATELET MORPHOLOGY (test code = NORMAL PLTMORPH) CBC W/O [id number] 09:18:00 Test Item Value Reference Range Interpretation [...] = 0.00 K/mm3 0.0-0.1 N NRBC#) WBC [id number] 09:18:00 Test Item Value Reference Range Interpretation [...] = NORMAL NORMAL PLTMORPH) - XR CHEST [id number] 08:48:00 Patient Name: MOISÉS CANNON Unit No: [id number] EXAMS: CPT CODE: [id number] XR CHEST 1V 85409 REASON FOR EXAM: Chest tube, lung lesion, [...] and signed by: Chris Ortiz MD CC: Alen Hanson MD Technologist: Maryjane Giles, RT(R) Transcrpt Date/Tm/Trnsp: 12/17/2018 (0848) Ayleen Orig Print D/T: S: 12/17/2018 (0851) [facility] NAME: MOISÉS CANNON [id number] PHYS: [place] [address] : 1955 AGE: 63 SEX: F LOC: Z.SI04 A PHONE #: [phone] EXAM DATE: 12/17/2018 STATUS: ADM IN FAX #: [phone] RADIOLOGY NO: PAGE 1 Signed ReportBASIC METABOLIC [id number] 05:48:00 Test Item Value Reference Range Interpretation [...] code = 8.6 MG/DL 8.4-10.2 N CA) [id number] 05:48:00 Test Item Value Reference Range Interpretation Comments MAGNESIUM (test code = MAG) 2.0 MG/DL 1.6-2.3 N PROTHROMBIN [id number] 05:37:00 Test Item Value Reference Range Interpretation Comments PROTHROMBIN TIME 10.4 SECONDS 9.6-11.6 N PATIENT (test code = PTP) INTERNATIONAL NORMAL 1.0 0.8-1.1 N The INR is to be RATIO (test code = used only for INR) monitoring oral anticoagulantth erap y. INDICATION INR [...] myocar dial infarction. 2.0 - 3.0 3. Reed Man al prosthesis hear t valves, recurre nt systemic emboli sm. 3.0 - 4.5 CBC W/O [id number] 05:18:00 Test Item Value Reference Range Interpretation [...] = 0.00 K/mm3 0.0-0.1 N NRBC#) WBC [id number] 05:18:00 Test Item Value Reference Range Interpretation Comments RBC MORPHOLOGY REQUIRED (test code = RBCM) TOTAL CELLS COUNTED (test code = TCC) #CELLS SEGMENTED NEUTROPHILS (test code = % 36.2-73.8 SEG) LYMPHOCYTE (test code = LYMPH) % 12.9-45.1 MONOCYTE (test code = MON) % 0-11 PLATELET ESTIMATE (test code = ADEQUATE PLTEST) PLATELET MORPHOLOGY (test code = NORMAL PLTMORPH) CBC W/AUTO [id number] 05:18:00 Test Item Value Reference Range Interpretation [...] = 0.00 K/mm3 0.0-0.1 N NRBC#) WBC [id number] 05:18:00 Test Item Value Reference Range Interpretation Comments RBC MORPHOLOGY REQUIRED (test code = RBCM) TOTAL CELLS COUNTED (test code = TCC) #CELLS SEGMENTED NEUTROPHILS (test code = % 36.2-73.8 SEG) LYMPHOCYTE (test code = LYMPH) % 12.9-45.1 MONOCYTE (test code = MON) % 0-11 PLATELET ESTIMATE (test code = ADEQUATE PLTEST) PLATELET MORPHOLOGY (test code = NORMAL PLTMORPH) - XR CHEST [id number] 07:05:00 Patient Name: MOISÉS CANNON Unit No: [id number] EXAMS: CPT CODE: [id number] XR CHEST 1V 61737 Single View Chest. Location: B2 Clinical Indication: [...] and signed by: Chris Simmons M.D. CC: Alen Hanson MD Technologist: Jericho Bates, RT(R) Transcrpt Date/Tm/Trnsp: 12/16/2018 (704) JulietaR.RB24 Orig Print D/T: S: 12/16/2018 (0708) [facility] NAME: MOISÉS CANNON [id number] PHYS: [place] [address] : 1955 AGE: 63 SEX: F LOC: Z.SI04 A PHONE #: [phone] EXAM DATE: 12/16/2018 STATUS: ADM IN FAX #: [phone] RADIOLOGY NO: PAGE 1 Signed ReportBASIC METABOLIC [id number] 06:21:00 Test Item Value Reference Range Interpretation [...] code = 9.0 MG/DL 8.4-10.2 N CA) [id number] 06:21:00 Test Item Value Reference Range Interpretation Comments MAGNESIUM (test code = MAG) 2.0 MG/DL 1.6-2.3 N CBC W/AUTO [id number] 05:52:00 Test Item Value Reference Range Interpretation [...] K/mm3 0.0-0.1 N NRBC#) - XR CHEST [id number] 05:42:00 Patient Name: MOISÉS CANNON Unit No: [id number] EXAMS: CPT CODE: [id number] XR CHEST 1V 51897 Location: U19. CHEST, FRONTAL VIEW HISTORY: SUBQ EMPHYSEMA, CHEST TUBE IN PLACE FINDINGS: Since12/14/18, the extensive subcutaneous emphysema is unchanged. Partial resection of the right lung with the right chest tube remaining in place. No obvious pneumothorax, somewhat limited due to the extensive subcutaneous air. The heart size is normal. Aorta is partially calcified. Right IJ within the SVC.The bones are intact. IMPRESSION: Stable operative changes in the right lung with chest tube. Extensive subcutaneous emphysema without any obvious pneumothorax. at 0542 Reported and signed by: Obed Villasenor MD CC: Alen Hanson MD Technologist: Jericho Bates, RT(R) Transcrpt Date/Tm/Trnsp: 12/15/2018 (0542) JuanSP17 Orig Print D/T: S: 12/15/2018 (0545) [facility] NAME: MOISÉS CANNON [address] PHYS: [place] [address] : 1955 AGE: 63 SEX: F : [id number] A PHONE #: [phone] EXAM DATE: 12/15/2018 STATUS: ADM IN FAX #: [phone] RADIOLOGY NO: PAGE 1 Signed Report- XR CHEST [id number] 08:24:00 Patient Name: MOISÉS CANNON Unit No: [id number] EXAMS: CPT CODE: [id number] XR CHEST 1V 62001 REASON FOR EXAM: Chest tube, thoracotomy.. COMPARISON: [...] and signed by: Chris Ortiz MD CC: Alen Hanson MD Technologist: Maryjane Giles, RT(R) Transcrpt Date/Tm/Trnsp: 12/14/2018 (823) [email or web address] Orig Print D/T: S: 12/14/2018 (826) [facility] NAME: MOISÉS CANNON [id number] PHYS: [place] [address] : 1955 AGE: 63 SEX: F LOC: ZCourtneySI04 A PHONE #: [phone] EXAM DATE: 12/14/2018 STATUS: ADM IN FAX #: [phone] RADIOLOGY NO: PAGE 1 Signed ReportBASIC METABOLIC [id number] 07:39:00 Test Item Value Reference Range Interpretation [...] code = 8.6 MG/DL 8.4-10.2 N CA) [id number] 07:39:00 Test Item Value Reference Range Interpretation Comments MAGNESIUM (test code = MAG) 2.0 MG/DL 1.6-2.3 N CBC W/AUTO [id number] 07:24:00 Test Item Value Reference Range Interpretation [...] code = 0.00 K/mm3 0.0-0.1 N NRBC#) [id number] 11:49:00 Test Item Value Reference Range Interpretation Comments POTASSIUM (test code = K) 3.7 MMOL/L 3.5-5.1 N - XR CHEST [id number] 07:42:00 Patient Name: MOISÉS CANNON Unit No: [id number] EXAMS: CPT CODE: [id number] XR CHEST 1V 11013 EXAMINATION: - XR CHEST 1V. LOCATION: B2. [...] and signed by: Pushpa Wagoner MD CC: Alen Hanson MD Technologist: Maryjane Giles RT(R) Transcrpt Date/Tm/Trnsp: 12/13/2018 (0742) JuanPR7 Orig Print D/T: S: 12/13/2018 (0745) [facility] NAME: MOISÉS CANNON [id number] PHYS: [place] [address] : 1955 AGE: 63 SEX: F LOC: Z.SI04 A PHONE #: [phone] EXAM DATE: 12/13/2018 STATUS: ADM IN FAX #: [phone] RADIOLOGY NO: PAGE 1 Signed Report TB TEST [id number] 07:32:00 Test Item Value Reference Range Interpretation Comments TB TEST IGRA (test code = TBTEST) Negative Negative BASIC METABOLIC [id number] 05:53:00 Test Item Value Reference Range Interpretation [...] code = 8.7 MG/DL 8.4-10.2 N CA) [id number] 05:53:00 Test Item Value Reference Range Interpretation Comments MAGNESIUM (test code = MAG) 1.8 MG/DL 1.6-2.3 N CBC W/AUTO [id number] 05:35:00 Test Item Value Reference Range Interpretation [...] K/mm3 0.0-0.1 N NRBC#) - XR CHEST [id number] 08:38:00 Patient Name: MOISÉS CANNON Unit No: [id number] EXAMS: CPT CODE: [id number] XR CHEST 1V 60742 REASON FOR EXAM: Lung tumor resection. COMPARISON: December 11, 2018. Chest, portable single frontal view. The right-sided chest tube is in good position, stable. No obvious pneumothorax. Right jugular line intact as well in the superior vena cava. Similar, extensive subcutaneous emphysema limits thestudy. The lungs are fairly well-inflated and clear. Postop findings in the right lung. Heart size is normal. No effusion or pneumothorax can be seen. Osseous structures appear to be intact. IMPRESSION: No identifiable pneumothorax. Slightly limited study. Right chest tube, stable. Similar appearance to subcutaneous emphysema. Location: U19 at 0838 Reported and signed by: Chris Ortiz MD CC: Alen Hanson MD Technologist: RT Luc(R) Transcrpt Date/Tm/Trnsp: 12/12/2018 (0838) t.ANTWON Orig Print D/T: S: 12/12/2018 (0841) [facility] NAME: MOISÉS CANNON [address] PHYS: [place] [address] : 1955 AGE: 63 SEX: F LOC: Z.SI04 A PHONE #: EXAM DATE: 12/12/2018 STATUS: ADM IN FAX #: [phone] RADIOLOGY NO: PAGE 1 Signed ReportAB [id number] 07:36:00 Test Item Value Reference Range Interpretation Comments AB COCCIDIOIDES (test code = COCCIAB) <0.150 < 1:2 BASIC METABOLIC [id number] 05:56:00 Test Item Value Reference Range Interpretation [...] code = 8.7 MG/DL 8.4-10.2 N CA) [id number] 05:56:00 Test Item Value Reference Range Interpretation Comments MAGNESIUM (test code = MAG) 1.9 MG/DL 1.6-2.3 N CBC W/AUTO [id number] 05:42:00 Test Item Value Reference Range Interpretation [...] 0.00 K/mm3 0.0-0.1 N NRBC#) AG HISTOPLASMA [id number] 07:26:00 Test Item Value Reference Range Interpretation Comments AG HISTOPLASMA UA (test code = <0.5 EIA unit <0.5 ng/mL HISUAAG) - XR CHEST [id number] 06:56:00 Patient Name: MOISÉS CANNON Unit No: [id number] EXAMS: CPT CODE: [id number] XR CHEST 1V 96504 Location: U19. CHEST, FRONTAL VIEW HISTORY: S/P CT INSERTION, RIGHT FINDINGS: Since 12/08/18, theright chest tube is stable in position. There [...] and signed by: Obed Villasenor MD CC: Alen Hanson MD Technologist: Maryjane Giles RT(R) Transcrpt Date/Tm/Trnsp: 12/11/2018 (0656) JulietaR.SP17 Orig Print D/T: S: 12/11/2018 (0700) [facility] NAME: MOISÉS CANNON [address] PHYS: [place] [address] : 1955 AGE: 63 SEX: F LOC: Z.SI04 A PHONE #:[phone] EXAM DATE: 12/11/2018 STATUS: ADM IN FAX #: [phone] RADIOLOGY NO: PAGE 1 Signed ReportBASIC METABOLIC [id number] 05:46:00 Test Item Value Reference Range Interpretation [...] code = 8.7 MG/DL 8.4-10.2 N CA) [id number] 05:46:00 Test Item Value Reference Range Interpretation Comments MAGNESIUM (test code = MAG) 1.9 MG/DL 1.6-2.3 N CBC W/AUTO [id number] 05:28:00 Test Item Value Reference Range Interpretation [...] 0.00 K/mm3 0.0-0.1 N NRBC#) BASIC METABOLIC [id number] 05:54:00 Test Item Value Reference Range Interpretation [...] 8.7 MG/DL 8.4-10.2 N CA) CBC W/AUTO [id number] 05:35:00 Test Item Value Reference Range Interpretation [...] 0.00 K/mm3 0.0-0.1 N NRBC#) BASIC METABOLIC [id number] 06:18:00 Test Item Value Reference Range Interpretation [...] 8.5 MG/DL 8.4-10.2 N CA) CBC W/AUTO [id number] 05:48:00 Test Item Value Reference Range Interpretation [...] K/mm3 0.0-0.1 N NRBC#) - XR CHEST [id number] 11:16:00 Patient Name: MOISÉS CANNON Unit No: [id number] EXAMS: CPT CODE: [id number] XR CHEST 1V 38631 Site ID: [id number] HISTORY: Subcutaneous emphysema, right [...] and signed by: Chano Cherry MD CC: Alen Hanson MD; Chris Rivera MD Technologist: Maksim Gonzales RT(R) Transcrpt Date/Tm/Trnsp: 12/08/2018 (1116) t.ANYAR.AJP6 Orig Print D/T: S: 12/08/2018 (1119) [facility] NAME: MOISÉS CANNON [id number] PHYS: [place] [address] : 1955 AGE: 63 SEX: F LOC: Z.SI04 A PHONE #: [phone] EXAM DATE: 12/08/2018 STATUS: ADM IN FAX #: [phone] RADIOLOGY NO: PAGE 1 Signed ReportMAGNESIUM 2018-12-08 08:28:00 Test Item Value Reference Range Interpretation Comments MAGNESIUM (test code = MAG) 2.0 MG/DL 1.6-2.3 N - XR CHEST [id number] 07:15:00 Patient Name: MOISÉS CANNON Unit No: [id number] EXAMS: CPT CODE: [id number] XR CHEST 1V 00104 Location of dictation: B2 Portable chest one [...] and signed by: Neelima Ghosh M.D. CC: Alen Hanson MD; Jose Luis De La Vega MD Technologist: Pavel Ma, (RT) (R) Transcrpt Date/Tm/Trnsp: 12/08/2018 (0715) [facility] Orig PrintD/T: S: 12/08/2018 (0718) [facility] NAME: MOISÉS CANNON [id number] PHYS: Jose Luis Rodriguez MD [place] [id number] : 1955 AGE: 63 SEX: F LOC: Z.SI04 A PHONE #: [phone] EXAM DATE: 12/08/2018 STATUS: ADM IN FAX #: [phone] RADIOLOGY NO: PAGE 1 Signed Report- XR CHEST 1V 2018-12-08 07:08:00 Patient Name: MOISÉS CANNON Unit No: [id number] EXAMS: CPT CODE: [id number] XR CHEST 1V 30470 Location of dictation: B2 Portable chest one [...] and signed by: Neelima Ghosh M.D. CC: Alen Hanson MD; Oumou Stanley NP Technologist: Jericho Bates, RT(R) Transcrpt Date/Tm/Trnsp: 12/08/2018 (0708) [facility] Orig Print D/T: S: 12/08/2018 (0711) [facility] [address] PHYS: [place] [address] : 1955 AGE: 63 SEX: F LOC: Z.SI04 A PHONE #: [phone] EXAM DATE: 12/08/2018 STATUS: ADM IN FAX #: [phone] RADIOLOGY NO: PAGE 1 Signed [facility] ART[facility] BLOOD [id number] 07:01:00 Test Item Value Reference Range Interpretation Comments POC ARTERIAL BLOOD GAS PH 7.382 7.35-7.45 N (test code = POCPHA) POC ARTERIAL BLOOD GAS PCO2 51.4 mmHg 35.0-45.0 HH (test code = CUEGOQ7N) POC ARTERIAL BLOOD GAS PO2 82 75.0-100.0 N (test code = WXCXF2Y) POC HCO3 ARTERIAL (test code 30.5 MMOL/L 20.0-26.0 HH = WIQLQA0V) POC BASE EXCESS (test code = 5.0 MMOL/L -3.0-3.0 H POCBEA) POC O2 SATURATION (test code 96 % 92.0-98.5 N = POCO2S) FIO2 (test code = FIO2A) 40 % 21-100 N ABG DELIVERY (test code = N/C MARCUS) ABG SITE (test code = SITEA) R Brachial ALLENS TEST (test code = N/A CHECK MD West/RBJob~ NADJAS) PROTHROMBIN [id number] 06:11:00 Test Item Value Reference Range Interpretation Comments PROTHROMBIN TIME 10.3 SECONDS 9.6-11.6 N PATIENT (test code = PTP) INTERNATIONAL NORMAL 1.0 0.8-1.1 N The INR is to be RATIO (test code = used only for INR) monitoring oral anticoagulantth erap y. INDICATION INR [...] myocar dial infarction. 2.0 - 3.0 3. Reed Man al prosthesis hear t valves, recurre nt systemic emboli sm. 3.0 - 4.5 PTT [id number] 06:11:00 Test Item Value Reference Range Interpretation Comments PTT ACTIVATED (test code = APTT) 23.2 SECONDS 22.0-33.0 N BASIC METABOLIC [id number] 06:09:00 Test Item Value Reference Range Interpretation [...] 9.0 MG/DL 8.4-10.2 N CA) CBC W/AUTO [id number] 05:57:00 Test Item Value Reference Range Interpretation [...] 0.00 K/mm3 0.0-0.1 N NRBC#) BASIC METABOLIC [id number] 12:08:00 Test Item Value Reference Range Interpretation [...] = 8.8 MG/DL 8.4-10.2 N CA) PROTHROMBIN [id number] 12:01:00 Test Item Value Reference Range Interpretation [...] dial infarction. 2. 0 - 3.0 3. Reed Man al prosthesis hear t valves, recurre nt systemic emboli sm. 3.0 - 4.5 PTT [id number] 12:01:00 Test Item Value Reference Range Interpretation Comments PTT ACTIVATED (test code = APTT) 24.1 SECONDS 21.0-33.0 N CBC W/AUTO [id number] 11:49:00 Test Item Value Reference Range Interpretation [...] K/mm3 0.0-0.1 N NRBC#) - XR CHEST [id number] 08:32:00 Patient Name: MOISÉS CANNON Unit No: [id number] EXAMS: CPT CODE: [id number] XR CHEST 1V 68691 Location of dictation: B2 Portable chest one [...] and signed by: Neelima Ghosh M.D. CC: Alen Hanson MD Technologist: Maryjane Giles RT(R) Transcrpt Date/Tm/Trnsp: 12/07/2018 (0832) JuanPXC Orig Print D/T: S: 12/07/2018 (0835) [facility]IONETTERupesh Alessandro NAME: MOISÉS CANNON [address] PHYS: [place] [address] : 1955 AGE: 63 SEX: F LOC: Z.SI04 A PHONE #: [phone] EXAM DATE: 12/07/2018 STATUS: ADM IN FAX #: [phone] RADIOLOGY NO: PAGE 1 Signed Report - XR CHEST [id number] 07:52:00 Patient Name: MOISÉS CANNON Unit No: [id number] EXAMS: CPT CODE: [id number] XR CHEST 1V 98029 Location of dictation: B2 Portable chest one view. HISTORY: S/P R.A. RIGHT LUNG MASS RESECTION COMMENT: Compared to 2 days prior. The heart is normal in size. There is decreased lucency in the mediastinum. The appearance of the lungs are stable with patchy bibasilar infiltrates and possibly smalleffusions. Extensive subcutaneous air again noted and may be slightly improved. No new changes noted. A right IJ central line remains in place. Patient is post cervical fusion. Bone anchors overlie theright humeral head. IMPRESSION: Overall improved appearance of the chest with no unfavorable findings over 2 days. at 0752 Reported and signed by: Neelima Ghosh M.D. CC: Alen Hanson MD Technologist: Maryjane Giles RT(R) Transcrpt Date/Tm/Trnsp: 12/06/2018 (0752) Ludwig Orig Print D/T: S: 12/06/2018 (0755) CHERYL Alessandro NAME: MOISÉS CANNON [address] PHYS: [place] [address] : 1955 AGE:63 SEX: F LOC: Z.SI04 A PHONE #: [phone] EXAM DATE: 12/06/2018 STATUS: ADM IN FAX #: [phone] RADIOLOGY NO: PAGE 1 Signed ReportBASIC METABOLIC [id number] 05:28:00 Test Item Value Reference Range Interpretation [...] code = 9.1 MG/DL 8.4-10.2 N CA) [id number] 05:28:00 Test Item Value Reference Range Interpretation Comments MAGNESIUM (test code = MAG) 2.0 MG/DL 1.6-2.3 N CBC W/AUTO [id number] 05:05:00 Test Item Value Reference Range Interpretation [...] code = 0.00 K/mm3 0.0-0.1 N NRBC#) [id number] 16:13:00 RUN DATE: 12/05/18 [facility] PAGE 1 RUN TIME: 1614 Specimen Inquiry RUN USER: INTERFACE P ATIENT: MOISÉS CANNON LOC: LAURA U #: [id number] AGE/SX: 63/F ROOM: [facility] RE11/30/18[facility] DR: Chris Rivera MD : 55 BED: A DIS: STATUS: ADM IN TLOC: SPEC #: [id number] RECD: 11/30/18 STATUS: BERTRAND RE #: [id number] PAOLA: 11/30/[address]: Chris Rivera MD ENTERED: 11/30/18 SP TYPE: LUNG OTHR DR: Alen Hanson MD ORDERED: SURG PATH LVL 5/2, FS, AFB/2, GMS/2, TOUCH PREP EA A CODES: [id number] [id number] - BRONCHUS OF RIG BIOPSY, NOS I35814 V76844 - BRONCHUS OF RIG INFLAMMATION, N V20459 U56732 - BRONCHUS OF RIG GRANULOMATOUS I I87296 D82360 - BRONCHUS OF RIG NECROTIZING GRA B71257 X81290 - BRONCHUS OF RIG NECROSIS, NOS N02704 Q30719 - BRONCHUS OF RIG DYSPLASIA, NOS I71020- LUNG, NOS [id number] X61960 - BODY TISSUE, NO EMPHYSEMA, NOS RB1438 S15811 - BODY TISSUE, NO DYSPLASIA, NOS COPIES TO: Alen Hanson MD [address] [place] [address] [address] [place] [address] [email or web address] [address] [facility] [place] [id number] PROCEDURES:SURG PATH LVL 5 (11/30/18- 1835) FS (11/30/18) AFB (12/05/18-1121) GMS (12/05/18) TOUCH PREP EA A (12/05/18-1117) TISSUES: A. LUNG, NOS - RUL TISSUE B. LUNG, NOS - RT UPPER LOBE BULLAE CLINICAL HISTORY LUNG LESION CPT CODES CPT CODE(S): 58470N7 , 11272 , 49611 , 99776J8 , , , CONTINUED ONNEXT PAGE RUN DATE: 12/05/18 [facility] PAGE 2 RUN TIME: 1614 Specimen Inquiry RUN USER: INTERFACE SPEC #:[id number] PATIENT: MOISÉS CANNON #[id number] (Continued) FINAL DIAGNOSIS A. Lung, right upper [...] x 1.3 cm. The nodule is well-circumscribed. Wall Scraper sections ofnodule submitted for frozen section labeled FS1/TP1 and [...] 0.6 cm. The margins are inked black, greenand blue. They are each sectioned, no nodules are grossly identified. They are submitted each as B1-B3. /tc/nr MICROSCOPIC DESCRIPTION A. Right upper lobe. Sections show lung tissue with a large granulo ma with necrotic center. Special stain (GMS, with [...] is no evidence of dysplasia or malignancy. /paula------ ------ Signed SIGNATURE ON FILE Chris Frank 12/05/18 1613 END OF REPORT - XR CHEST [id number] 08:14:00 Patient Name: MOISÉS CANNON Unit No: [id number] EXAMS: CPT CODE: [id number] XR CHEST 1V 35303 Location of dictation: B2 Portable chest one [...] and signed by: Neelima Ghosh M.D. CC: Alen Hanson MD Technologist: RT Luc(R) Transcrpt Date/Tm/Trnsp: 12/05/2018 (0814) t.[facility] Orig Print D/T: S: 12/05/2018 (0817) [facility] NAME: MOISÉS CANNON [address] PHYS: [place] [address] : 1955 AGE: 63 SEX: F LOC: [id number].SI04 A PHONE #: [phone] EXAM DATE: 12/05/2018 STATUS: ADM IN FAX #: [phone] RADIOLOGY NO: PAGE 1 Signed ReportBASIC METABOLIC [id number] 06:36:00 Test Item Value Reference Range Interpretation [...] code = 9.0 MG/DL 8.4-10.2 N CA) [id number] 06:36:00 Test Item Value Reference Range Interpretation Comments MAGNESIUM (test code = MAG) 1.9 MG/DL 1.6-2.3 N CBC W/AUTO [id number] 06:20:00 Test Item Value Reference Range Interpretation [...] 0.00 K/mm3 0.0-0.1 N NRBC#) BASIC METABOLIC [id number] 21:07:00 Test Item Value Reference Range Interpretation [...] code = 9.0 MG/DL 8.4-10.2 N CA) [id number] 21:07:00 Test Item Value Reference Range Interpretation Comments MAGNESIUM (test code = MAG) 1.8 MG/DL 1.6-2.3 N ARTERIAL BLOOD [id number] 20:51:00 Test Item Value Reference Range Interpretation [...] code = 36 % COHBGFFIO2) GLUCOSE BEDSIDE [id number] 14:59:00 Test Item Value Reference Range Interpretation Comments GLUCOSE BEDSIDE TEST NOT PERFORMED 60-99 Previo usly reported TESTING (test MG/DL result: 55 code = GLUBED) MG/DLEdited b y: Z.LAB.TQL on 12/04/18:886035 1457: GLU BE D previously repo rted as: 55 L MG/DL GLUCOSE BEDSIDE [id number] 13:35:00 Test Item Value Reference Range Interpretation Comments GLUCOSE BEDSIDE TESTING (test code = 55 MG/DL 60-99 L GLUBED) CALCIUM [id number] 12:44:00 Test Item Value Reference Range Interpretation Comments CALCIUM IONIZED (test code = BABAK) 1.11 MMOL/L 1.12-1.30 L PROTHROMBIN [id number] 10:01:00 Test Item Value Reference Range Interpretation [...] myocar dial infarction. 2.0 - 3.0 3. Reed Man al prosthesis hear t valves, recurre nt systemic emboli sm. 3.0 - 4.5 Comments to Reed Cleaner: nonePTT [id number] 10:01:00 Test Item Value Reference Range Interpretation Comments PTT ACTIVATED (test code = APTT) 24.2 SECONDS 22.0-33.0 N Comments to Reed Cleaner: none- XR CHEST [id number] 09:06:00 Patient Name: MOISÉS CANNON Unit No: [id number] EXAMS: CPT CODE: [id number] XR CHEST 1V 19593 Location of dictation: B2 Portable chest one view. HISTORY: right chest tube, subq emphysema COMMENT: Compared to one day prior. Right IJ central line and right chest tube are again noted. There is progression of extensive subcutaneous emphysema. The heart is normal in size. No new consolidation, obvious pneumothorax or significant effusion. The right hemidiaphragm remains elevated. IMPRESSION: Worsening subcutaneous emphysema otherwise stable appearance of the chest with right chest tube in place at 0906 Reported and signed by: Neelima Ghosh M.D. CC: Alen Hanson MD; Oumou Stanley BALING MACHINE TENDER Technologist: Jo-Ann Hall (RT) Transcrpt Date/Tm/Trnsp: 12/04/2018 (0906) LilianaC Orig Print D/T: S: 12/04/2018 (0910) [facility] NAME: MOISÉS CANNON [address] PHYS: DONY.Giovanna - Oumou [place] [address] : 1955 AGE: 63 SEX: F LOC: Z.SI04 A PHONE #: [phone] EXAM DATE: 12/04/2018 STATUS: ADM IN FAX #: [phone] RADIOLOGY NO: PAGE 1 Signed ReportBASIC METABOLIC [id number] 07:35:00 Test Item Value Reference Range Interpretation [...] code = 9.1 MG/DL 8.4-10.2 N CA) [id number] 07:35:00 Test Item Value Reference Range Interpretation Comments PHOSPHOROUS (test code = PHOS) 3.7 MG/DL 2.5-4.5 N [id number] 07:35:00 Test Item Value Reference Range Interpretation Comments MAGNESIUM (test code = MAG) 1.9 MG/DL 1.6-2.3 N CBC W/AUTO [id number] 07:25:00 Test Item Value Reference Range Interpretation [...] K/mm3 0.0-0.1 N NRBC#) - XR CHEST [id number] 18:47:00 Patient Name: MOISÉS CANNON Unit No: [id number] EXAMS: CPT CODE: [id number] XR CHEST 1V 36224 EXAM: Portable chest one view. Location code:J9 HISTORY: Pneumothorax COMPARISON: 12/03/2018 Findings: Stable position of [...] and signed by: Kraig Elizabeth M.D. CC: Alen Hanson MD; Gretchen LEE Technologist: Soumya Chapa RT(R) Transcrpt Date/Tm/Trnsp: 12/03/2018 (1846) JuanRR16 Orig Print D/T: S: 12/03/2018 (1849) [facility] NAME: MOISÉS CANNON [address] PHYS: DOYN.Giovanna - [place] [address] : 1955 AGE: 63 SEX: F LOC: Z.355 A PHONE #: [phone] EXAM DATE: 12/03/2018 STATUS: ADM IN FAX #: [phone] RADIOLOGY NO: PAGE 1 Signed Report- XR CHEST [id number] 07:46:00 Patient Name: MOISÉS CANNON Unit No: [id number] EXAMS: CPT CODE: [id number] XR CHEST 1V 30951 Location of dictation: B2 Portable chest one [...] and signed by: Neelima Ghosh M.D. CC: Alen Hanson MD Technologist: Maryjane Giles, RT(R) Transcrpt Date/Tm/Trnsp: 12/03/2018 (0746) t.SDR.PXC Orig Print D/T: S: 12/03/2018 (0749) [facility] NAME: MOISÉS CANNON [address] PHYS: [place] [address] : 1955 AGE: 63 SEX: F LOC: Z.SI04 A PHONE #: [phone] EXAM DATE: 12/03/2018 STATUS: ADM IN FAX #: [phone] RADIOLOGY NO: PAGE 1 Signed ReportBASIC METABOLIC [id number] 04:54:00 Test Item Value Reference Range Interpretation [...] code = 8.8 MG/DL 8.4-10.2 N CA) [id number] 04:54:00 Test Item Value Reference Range Interpretation Comments MAGNESIUM (test code = MAG) 2.0 MG/DL 1.6-2.3 N CBC W/AUTO [id number] 04:29:00 Test Item Value Reference Range Interpretation [...] K/mm3 0.0-0.1 N NRBC#) - XR CHEST [id number] 06:22:00 Patient Name: MOISÉS CANNON Unit No: [id number] EXAMS: CPT CODE: [id number] XR CHEST 1V 07664 AP VIEW OF THE CHEST LOCATION: R16 CLINICAL HISTORY: Postop thoracotomy. COMPARISON: Chest radio graph 12/01/2018. FINDINGS: Compared to patient's previous exam [...] IMPRESSION: No significant interval change since 12/01/2018. Electronically Signedby Svetlana Ham MD on 12/02/2018 at 0622 Reported and signed by: Svetlana Ham MD CC: Alen Hanson MD Technologist: Jericho Btaes, RT(R) Transcrpt Date/Tm/Trnsp: 12/02/2018 (06) t.SDR.JSL Orig Print D/T: S: 12/02/2018 (0644) [facility] NAME: MOISÉS CANNON [address] PHYS: [place] [address] : 1955 AGE: 63 SEX: F LOC: Z.SI04A PHONE #: [phone] EXAM DATE: 12/02/2018 STATUS: ADM IN FAX #: [phone] RADIOLOGY NO: PAGE1 Signed ReportBASIC METABOLIC [id number] 05:59:00 Test Item Value Reference Range Interpretation [...] code = 8.4 MG/DL 8.4-10.2 N CA) [id number] 05:59:00 Test Item Value Reference Range Interpretation Comments MAGNESIUM (test code = MAG) 2.1 MG/DL 1.6-2.3 N CBC W/AUTO [id number] 05:53:00 Test Item Value Reference Range Interpretation [...] code = 0.00 K/mm3 0.0-0.1 N NRBC#) [id number] 21:37:00 Test Item Value Reference Range Interpretation Comments POTASSIUM (test code = K) 3.2 MMOL/L 3.5-5.1 L Is this a LINE draw? YBASIC METABOLIC [id number] 07:40:00 Test Item Value Reference Range Interpretation [...] code = 8.4 MG/DL 8.4-10.2 N CA) [id number] 07:40:00 Test Item Value Reference Range Interpretation Comments MAGNESIUM (test code = MAG) 1.9 MG/DL 1.6-2.3 N CBC W/AUTO [id number] 07:27:00 Test Item Value Reference Range Interpretation [...] K/mm3 0.0-0.1 N NRBC#) - XR CHEST [id number] 06:27:00 Patient Name: MOISÉS CANNON Unit No: [id number] EXAMS: CPT CODE: [id number] XR CHEST 1V 53934 Exam: Chest portable erect Location: F6 History: Post Op Thoracotomy Comparison: 11/30/2018 Findings: No change has occurred in the aeration of the lungs. The heart size is unchanged. The mediastinal silhouette is unremarkable. The bony thorax is intact. The right chest tube and right IJ line remain in place. Impression: Stable chest/no change. at 06 Reported and signed by: Shola Duran M.D. CC: Alen Hanson MD Technologist: Jericho Bates, RT(R) Transcrpt Date/Tm/Trnsp: 12/01/2018 (626) JuanFC Orig Print D/T: S: 12/01/2018 (629) [facility] NAME: MOISÉS CANNON [address] PHYS: [place] [address] : 1955 AGE: 63 SEX: F LOC: Z.SI04 A PHONE #: [phone] EXAM DATE: 12/01/2018 STATUS: ADM IN FAX #: [phone] RADIOLOGY NO: PAGE 1 Signed ReportBASIC METABOLIC [id number] 20:46:00 Test Item Value Reference Range Interpretation [...] code = 8.8 MG/DL 8.4-10.2 N CA) [id number] 20:46:00 Test Item Value Reference Range Interpretation Comments MAGNESIUM (test code = MAG) 1.9 MG/DL 1.6-2.3 N BASIC METABOLIC [id number] 20:42:00 Test Item Value Reference Range Interpretation [...] code = 8.8 MG/DL 8.4-10.2 N CA) [id number] 20:42:00 Test Item Value Reference Range Interpretation Comments MAGNESIUM (test code = MAG) 1.9 MG/DL 1.6-2.3 N CBC W/AUTO [id number] 20:04:00 Test Item Value Reference Range Interpretation [...] 0.00 K/mm3 0.0-0.1 N NRBC#) ARTERIAL BLOOD [id number] 19:53:00 Test Item Value Reference Range Interpretation [...] = 100 % COHBGFFIO2) - XR CHEST [id number] 19:38:00 Patient Name: MOISÉS CANNON Unit No: [id number] EXAMS: CPT CODE: [id number] XR CHEST 1V 00073 EXAM: CHEST ONE VIEW INDICATION: Post Op [...] and signed by: Mahi Campa MD CC: Alen Hanson MD Technologist: Jo-Ann Hall (RT) Transcrpt Date/Tm/Trnsp: 11/30/2018 (1937) JuanMD16 Orig Print D/T: S: 11/30/2018 (1940) [facility] NAME: MOISÉS CANNON [address] PHYS: [place] [address] : 1955 AGE: 63 SEX: F LOC: ROCKY PHONE #: [phone] EXAM DATE: 11/30/2018 STATUS: REG [facility] FAX #: [phone] RADIOLOGY NO: PAGE 1 Signed ReportHIV 12 AB [id number] 17:53:00 Test Item Value Reference Range Interpretation Comments AB HIV 1 2 NON REACTIVE NON-REAC NOTE: A NONREAC TIVE RESULT (test code = INDICATES THAT HIV-1 AND TOU19VS) HIV-2ANTIBODIES HAVE NOT BEEN FOUND IN T HIS PATIENT SPECIMEN. ANON- REACTIVE RESULT, HOWEVER , DOES NOT PRECLUDE PREVIO USEXPOSURE OR INFECTION WI TH HIV1. AG HIV1 P24 NON REACTIVE NONE REAC (test code = [id number]) PROTHROMBIN [id number] 15:49:00 Test Item Value Reference Range Interpretation [...] myocar dial infarction. 2.0 - 3.0 3. Reed Man al prosthesis hear t valves, recurre nt systemic emboli sm. 3.0 - 4.5 PTT [id number] 15:49:00 Test Item Value Reference Range Interpretation Comments PTT ACTIVATED (test code = APTT) 23.4 SECONDS 22.0-33.0 N - XR CHEST 2 [id number] 15:47:00 Patient Name: MOISÉS CANNON Unit No: [id number] EXAMS: CPT CODE: [id number] XR CHEST 2 [id number] EXAM: CHEST 2 VIEWS INDICATION: PRE-OP COMPARISON: [...] and signed by: Mahi Campa MD CC: Alen Hanson MD Technologist: [facility] STUDENT ; Christian Villavicencio RT(R) Transcrpt Date/Tm/Trnsp: 11/28/2018 (1547) JuanMD16 Orig Print D/T: S: 11/28/2018 (9669) [facility] NAME: MOISÉS CANNON [address] PHYS: [place] [address] : 1955 AGE: 63 SEX: F LOC: Z.5MU PHONE #: [phone] EXAM DATE: 11/28/2018 STATUS: PRE IN FAX #: [phone] RADIOLOGY NO: PAGE 1 Signed ReportBASIC METABOLIC [id number] 15:42:00 Test Item Value Reference Range Interpretation [...] 9.2 MG/DL 8.4-10.2 N CA) CBC W/AUTO [id number] 15:32:00 Test Item Value Reference Range Interpretation [...] N NRBC#) - CTA ABD PEL W [id number] 10:28:00 Patient Name: MOISÉS CANNON Unit No: [id number] Report Has Been Amended EXAMS: CPTCODE: [id number] CTA ABD PEL W CONT 47804 Addendum - 11/15/2018 SIGNED 11/15/2018 ADDENDUM: [id number] CT/CTAAPWCONT Addendum: 3-D/MIP reconstructions of the central arteries were created. at 1028 Reported and signed by: Chris Simmons M.D. Transcribed: 11/15/2018 (6167) t.ANYAR.RB24 Report CTA Abdomen and Pelvis with and [...] hepatic, splenic, and left gastric arteries. Superior mesen teric artery is patent. Bilateral main renal arteries [...] of the aortoiliac stent graft are patent. [facility] NAME: MOISÉS CANNON [address] PHYS: Chris Sky MD [place] [id number] : 1955 AGE: 63 SEX: F LOC: Z.CTS PHONE #: [phone] EXAM DATE: 11/06/2018 STATUS: DEP CLI FAX #: [phone] RAD #: D/C DT PAGE 1 Signed Report (CONTINUED) Patient Name: MOISÉS CANNON Unit No: [id number] Report Has Been Amended EXAMS: CPT CODE: [id number] CTA ABD PEL W CONT 35322 (Continued) Bilateral external iliac arteries are patent. [...] as detailed above. 2. 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 3. 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 4. Interval right renal infarct. at 1346 Reported and signed by: Chris Simmons M.D. CC: Alen Hanson MD Technologist: Anam Bill RT(R); Kalen CTDI: DLP: Trnscrpt: 11/06/2018 (1346) t.SDR.RB24 [facility] NAME: MOISÉS CANNON [address] PHYS: [place] [address] : AGE: 63 SEX: F LOC: GarlandCTS PHONE #: [phone] EXAM DATE: 11/06/2018 STATUS: DEP CLI FAX #: [phone] RAD #: D/C DT PAGE 2 Signed Report Patient Name: MOISÉS CANNON Unit No: [id number] Report Has Been Amended EXAMS: CPT CODE: [id number] CTA ABD PEL W CONT 81295 (Continued) Orig Print D/T: S: 11/06/2018 (1349) [facility] NAME: MOISÉS CANNON [address] PHYS: [place] [address] : 1955 AGE: 63 SEX: F LOC: GarlandCTS PHONE #: [phone] EXAM DATE: 11/06/2018 STATUS: DEP CLI FAX #: [phone] RAD #: D/C DT PAGE 3 Signed ReportBEDSIDE [id number] 14:50:00 Test Item Value Reference Range Interpretation Comments BEDSIDE CREATININE (test code = 0.6 MG/DL 0.6-1.4 N CREATBED) - CT CHEST W/[id number] 14:06:00 Patient Name: MOISÉS CANNON Unit No: [id number] EXAMS: CPT CODE: [id number] CT CHEST W/CONTRAST 88095 EXAM: Chest CT with contrast Location: B2 INDICATION: Lung nodule COMPARISON: Chest x-ray on 12/21/2015 TECHNIQUE: Helical CT of the chest was performed following the administration of 100 mL Isovue-370 IV contrast. 5 mm axial and coronal and sagittal reformatted images were performed. DISCUSSION: Lungs and airways: A 14 mm rounded right upper lobe nodule is identified. This is visible on the financial intern film, but was not evident on the [...] small hiatal hernia. Lymph nodes: No lymphadenopathy. Bones/sof t tissues: There is a partially healed left anterior 3rd rib fracture. No acute fracture or evidence of bony neoplastic process is seen. 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 Please refer to the CTA abdomen andpelvis performed concurrently. IMPRESSION: 1. COPD. There is a 14 mm rounded right upper lobe noduleabutting the anterior pleural surface. This is visible on the financial intern film, and was not present on theprior [...] size, and/or utilization of iterative reconstruction technique. [facility] NAME: MOISÉS CANNON [address] PHYS: [place] [address] : 1955 AGE: 63 SEX: F LOC: Z.CTS PHONE #: [phone] EXAM DATE: 11/06/2018 STATUS: REG CLI FAX #: [phone] RAD #: D/C DT PAGE 1 Signed Report (CONTINUED) Patient Name: MOISÉS CANNON Unit No: [id number] EXAMS: CPT CODE: [id number] CT CHEST W/CONTRAST 65461 (Continued) DLP: 1708 mGy-cm CTDI: 51 mGy at 1406 Reported and signed by: Jake Menchaca MD CC: Alen Hanson MD Technologist: Anam Bill RT(R); Kalen CTDI: DLP: Trnscrpt: 11/06/2018 (3785) t.SDR.BC0 [facility] NAME: MOISÉS CANNON [address] PHYS: Chris [place], [place] [address]IDS: 1955 AGE: 63 SEX: F LOC: GarlandCTS PHONE #: [phone] EXAM DATE: 11/06/2018 STATUS: REG CLI FAX #: [phone] RAD #: D/C DT PAGE 2 Signed Report Patient Name: MOISÉS CANNON Unit No: [id number] EXAMS: CPT CODE: [id number] CT CHEST W/CONTRAST 16272 (Continued) Orig Print D/T: S: 11/06/2018 (1401) [facility] NAME: MOISÉS CANNON [address] [address] PHYS:[place] [address] : 1955 AGE: 63 SEX: F LOC: Z.CTS PHONE #: [phone] EXAM DATE: 11/06/2018 STATUS: REG CLI FAX #: [phone] RAD #: D/C DT PAGE 3 Signed Report- CTA ABD PEL W [id number] 13:46:00 Patient Name: MOISÉS CANNON Unit No: [id number] EXAMS: CPT CODE: [id number] CTA ABD PEL WCONT 58338 CTA Abdomen and Pelvis with and without contrast. Location: B2 Clinical indication: 63-year-old with endoleak following aneurysm repair Comparison: November 25, 2015 CT Technique: Computed axial images were obtained from the diaphragms through the pubic symphysis both before and after the IV a dministration of 100 mL Isovue-370. Up to date [...] crescentic thrombus within the stent graft, not flow- limiting. There is a mixed dissection and aneurysm [...] been an infarct of the right lower polekidney, new from prior exam. There is bilateral renal cortical thinning. Small superficial cysts arepresent, largest 9 mm on the left. No bowel obstruction. Pelvis: The iliac limbs of the aortoiliac stent graft are patent. Bilateral external iliac arteries are patent. Bilateral internal iliac arteries are calcified but patent. There is a dissection of the right common femoral artery, new from priorexam. Urinary bladder is partially distended. Uterus is been removed. No free pelvic fluid. No acuteosseous abnormality. Prior posterior lumbar fusion and laminectomy. Impression: 1. Status post aortobiiliac endoluminal stent graft repair of an aortic aneurysm. The residual sac measures up to 4.5 cmin diameter. 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 2. 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 3. 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 4. Interval right renal infarct. [facility] NAME: MOISÉS CANNON [address] [address] PHYS: [place] [address] : 1955 AGE: 63 SEX: F LOC: Z.CTS PHONE #: [phone] EXAM DATE: 11/06/2018 STATUS: REG CLI FAX #: [phone] RAD #: D/C DT PAGE 1 Signed Report (CONTINUED) Patient Name: MOISÉS CANNON Unit No: [id number] EXAMS: CPT CODE: [id number] CTA ABD PEL W CONT 51826 (Continued) at 1346 Reported and signed by: Chris Simmons M.D. CC: Alen Hanson MD Technologist: Anam Bill, RT(R); Kalen CTDI: DLP: Trnscrpt: 11/06/2018 (1346) JuanRB24 [facility] [place] NAME: MOISÉS CANNON [address] PHYS: Chris Sky MD [place] [id number] : 1955 AGE: 63 SEX: F LOC: KAYLYN PHONE #: [phone] EXAM DATE: 11/06/2018 STATUS: REG CLI FAX #: [phone] RAD #: D/C DT PAGE 2 Signed Report Patient Name: MOISÉS CANNON Unit No: [id number] EXAMS: CPT CODE: [id number] CTA ABD PEL W CONT 46853(Continued) Orig Print D/T: S: 11/06/2018 (1349) [facility] [place] NAME: MOISÉS CANNON [address] PHYS: Chris Sky MD [place] [id number] : 1955 AGE: 63 SEX: F LOC: GarlandCTS PHONE #: [phone] EXAM DATE: 11/06/2018 STATUS: REG CLI FAX #: [phone] RAD #: D/C DT PAGE 3 Signed ReportCBC W/PLT COUNT & AUTO DIFFERENTIAL 2018-09-20 05:53:00 Test Item Value Reference Range Interpretation [...] (BEAKER) (test code = 2801) BASIC METABOLIC [id number] 05:36:00 Test Item Value Reference Range Interpretation [...] 697) EGFR (BEAKER) (test 95 mL/min/1.73 ESTIMA ALEKSANDRA GFR IS code = 1092) sq m NOT ACCURATE CREATININE CLEARANCE IN PREDICTING GLOMERULAR FILTRATION RATE . ESTIMATED GFR I S NOT APPLICABLE FOR DIALYSIS PATIEN TS. CT, CTA AAA, W/ RAVINDER.EXT.WHDPAG7064-01-30 18:40:00Addendum BeginsREPORT STATUS:A Addendum: I agree with the previously described non vascular findings. Additionally there is mild skin thickening in the lower anterior abdominal wall and subcutaneous edema which may be secondary to cellulitis. Signed: Dain Mahmood MDReport Verified Date/Time: 09/17/2018 18:40:47 Reading Location: [place] [address] Angio Body Reading RoomAddendum EndsFINAL REPORT CT [...] and during intravenous contrast administration using a GE multidetector CT scanner. Images were obtained before [...] dictated regarding the non-vascular findings by the Steel Shot Header Operator Radiologist. Signed: Morteza Johnson MDReport Verified Date/Time: 09/17/2018 14:46:36 Reading Location: [place] [address] [facility] MET[facility]OLIC [id number] 07:21:00 Test Item Value Reference Range Interpretation [...] 697) EGFR (BEAKER) (test 95 mL/min/1.73 ESTIMA ALEKSANDRA GFR IS code = 1092) sq m NOT ACCURATE CREATININE CLEARANCE IN PREDICTING GLOMERULAR FILTRATION RATE . ESTIMATED GFR I S NOT APPLICABLE FOR DIALYSIS PATIEN TS. [id number] 07:20:00 Test Item Value Reference Range Interpretation Comments PHOSPHORUS (BEAKER) (test code = 3.8 mg/dL 2.5-4.5 604) [id number] 07:15:00 Test Item Value Reference Range Interpretation Comments MAGNESIUM (BEAKER) (test code = 1.9 mg/dL 1.5-3.0 627) CBC W/PLT COUNT & AUTO [id number] 06:56:00 Test Item Value Reference Range Interpretation [...] (BEAKER) (test code = 2801) BASIC METABOLIC [id number] 05:51:00 Test Item Value Reference Range Interpretation [...] PATIEN TS. CBC W/PLT COUNT & AUTO [id number] 05:23:00 Test Item Value Reference Range Interpretation [...] pg/mL 0-100 H (test code = 700) [id number] 05:49:00 Test Item Value Reference Range Interpretation Comments PHOSPHORUS (BEAKER) (test code = 1.5 mg/dL 2.5-4.5 LL 604) BASIC METABOLIC [id number] 05:45:00 Test Item Value Reference Range Interpretation [...] 697) EGFR (BEAKER) (test 97 mL/min/1.73 ESTIMA ALEKSANDRA GFR IS code = 1092) sq m NOT ACCURATE CREATININE CLEARANCE IN PREDICTING GLOMERULAR FILTRATION RATE . ESTIMATED GFR I S NOT APPLICABLE FOR DIALYSIS PATIEN TS. [id number] 05:39:00 Test Item Value Reference Range Interpretation Comments MAGNESIUM (BEAKER) (test code = 2.3 mg/dL 1.5-3.0 627) CBC W/PLT COUNT & AUTO [id number] 05:24:00 Test Item Value Reference Range Interpretation [...] (BEAKER) (test code = 2801) BASIC METABOLIC [id number] 21:36:00 Test Item Value Reference Range Interpretation [...] 697) EGFR (BEAKER) (test 92 mL/min/1.73 ESTIMA ALEKSANDRA GFR IS code = 1092) sq m NOT ACCURATE CREATININE CLEARANCE IN PREDICTING GLOMERULAR FILTRATION RATE . ESTIMATED GFR I S NOT APPLICABLE FOR DIALYSIS PATIEN TS. CBC W/PLT COUNT & AUTO [id number] 16:26:00 Test Item Value Reference Range Interpretation [...] H PERCENT (BEAKER) (test code = 2801) Notes Date/Time Note Provider Source 2019-02-11 09:37:00-00:00 [id number] [facility] [address] [place] [address] PATIENT NAME: MOISÉS CANNON ADMIT JOHNNY E: 11/30/18 ACCOUNT NO: [id number] ROOM NO: Z.SI04 AGE: 63 REPORT TYPE: DISCHARGE SUMMARY REPORT SEX: F ADMITTING PHYSICIAN:Karen Vasquez MD ATTENDING PHYSICIAN:Chris Rivera MD ADMISSION DATE: 11/30/2018 DISCHARGE DATE: 12/19/2018 DISCHARGE DIAGNOSES: Nodule of the right upper l obe of the lung, status post robotic assisted excision and biopsy of the nodu le of the right upper lobe of the lung; chronic obstructive pulmonary disease with subcutaneous emphysema; 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 HOSPITAL COURSE: The patient is a 63-year-old fe male well known to our services, who is status post an endovascular meghna nt repair of an infrarenal abdominal aortic aneurysm on 12/22/2015. The patient has been doing relatively well. She does have a histor y of emphysema to her lungs and underwent a CT scan of the chest where she was found to have a 14 mm rounded right upper lobe lung nodule. The patient was subsequently admitted an d taken to the operating room on 11/30/2018 where she unde rwent a robotic-assisted excision of the right upper lobe lung nodule and stable excision of blebs, r ight upper lobe of the lung. The patient tolerated the procedure well. She wa s transferred to the ICU in a stable condition. In ICU postoperatively , she maintained a normal sinus rhythm and a stable blood pressure. The patient was the n transferred to the CVU unit where she was doing relative ly well until the patient states she began to cough and with the cough, she noticed that she develop ed subcutaneous emphysema immediately. She had swelling to her chest, to h er neck and to her face. She was then transferred back urgently to the ICU, s o she could be closely monitored. Even though she had lots of subcutane ous emphysema, she denied having any chest pain, short ness of breath or difficulty with swallowing and on 12/08/2018, while in ICU, she did undergo a righ t chest tube insertion with a #[facility] [employer] chest tube, which she tolerate d quite well. The patient was kept being monitored closely in ICU and over emily e, her subcutaneous emphysema started to resolve of the fa ce, the eyes, the neck and the chest and the patient continued her ambulating with physical therapy a nd making good progress. On final pathology, the right u pper lobe wedge biopsy was found to be positive for caseating granuloma. Fungal organisms were present and there was no evidence of malignancy identified. The bullae wedge biopsy was noted to have emphysematous changes with no malignancy o r dysplasia. Infectious disease, Dr. Eric Yu, was consulted and felt that since the granuloma was pretty much burnt out, the patient did not need to be o n antifungal treatment. The chest tube was removed. There was no pneumothorax noted. She was discha rged home in a stable condition. She was instructed to follow up with Dr. Rivera in 1 week and she is also to follow up with her fish rod maker, Dr. Hanson. PATIENT NAME: MOISÉS CANNON Dictated By: BOGDAN Moreland for Ro lexii Rivera MD WT: [id number]:[id number]/MASOUD/JANNIE Conf#: [id number]/DID#: [id number] Authenticated by BOGDAN Moreland On 02/12/2019 05:25:06 PM Authenticated by Chris Rivera MD On 019 08:19:45 AM at 0820 at 0820 PATIENT NAME: MOISÉS CANNON 2018-12-19 21:35:00-00:00 [facility] ([facility]) Hospitalist Progress Note REPORT#:[id number] REPORT STATUS: Signed DATE:12/19/18 TIME: 2134 PATIENT: MOISÉS CANNON UNIT #: [id number] ROOM/BED: SI04-A : 55 AGE: 63 SEX: F ATTEND: Augustus Rivera MD ADM AUTHOR: Romelia Aleman MD * ALL edits or amendments must be made on the [employer]/computer document * Subjective Chief Complaint: 63 y/o female post lung biopsy ,w subcutaneous e mphysema Objective Physical Exam Head/Eyes: looks better Cardiovascular: normal capillary refill, regular rate rhythm Respiratory: aerating well, clear to auscultatio n Neuro/PRODUCTION PLANNER SCHEDULER: alert, oriented X 3 Diagnosis, Assessment Plan Free Text DxA P Notes Free text DxA P notes: Free Text DxA P Notes Assesment: -RUL nodule/blebs s/p excision -Dyspnea on exertion -Extensive subcutaneous emphysema Plan: -Continue oxygen as needed -cont nebs , pulmicort -Monitor chest tube output; Management per CT barth rgeon -Continue home meds as appropriate -pain control -DVT prophylaxis - SCD 12/02 cont chest tube cont oxygen, nebs management per [facility] dvt ppx: scd 12/03 pt is stable, transfer out icu cont chest tube cont cont management 12/04 transferred back to ICU bc of sq emphysema- CV s x following Chest Xray shows worsening s ubcutaneous emphysema otherwise stable appearance of the chest Cont Chest tube Cont current management on clear liquid diet. DVT prophylaxis: SCD 12/05 -Chest Xray shows worsening subcutaneous emphysema and development of bibasilar atelectasis and questionable small pneumomediast inum. 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 -Encourage IS and ambulation -Granddaughter at bedside -Caseating granuloma/fungal-final pathology-ID c onsulted -Cont Chest tube -Cont current management -DVT prophylasix-lovenox 12/07- cxr same. - pt NPO for possible OR today by dr Rivera - will continue with current supportive care. 12/08- breathing comfortably with mask. able to s it at the edge of the bed. - ct in place. CV surgery following. - will continue with current mx. 12/09 -CT in place continue to monitor -Continue current mx -Continue to ambulate 12/10 -CT in place continue to monitor -Continue current mx -Continue to ambulate 12/11 Pt is in ICU,, sitting up in the chair Continue current rx CT to be taken out per DR rivera Eyes are little better 12/12 pt is doing well, no new changes still w subcutaneous emphysema 12/13 Pt is doing about same, still w crepitus 12/14 Pt was sleeping , sitting up in the john r but says had difficulty in breathing seems swelling slightly better 12/16 Pt is about same DW Dr Rivera yesterday, need to give time for e mphysema to improve 12/17 pt is doing much better sats are better 12/18/18: patient is a 62-year-old female doing w ell post lung biopsy. Chest tubes have been removed she is tolerating food ambulating. Continue current treatment which include Xopenex nebulization Protonix tabl et metoprolol twice daily citalopram atorvastatin pain control with Marion morphine Demerol supplement potassium magnesium. DVT prophylaxis with Loveno x. Planning for discharge home tomorrow. 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 12/19/18: pt is doing well. pt is getting dischar ged today. Electronically Signed by Romelia Aleman MD on 12/10 04/29 at 0807 RPT #:[id number] END OF REPORT 2018-12-19 09:59:00-00:00 [facility] ([facility]) Cardiovascular Surgery Prog REPORT#:[id number] REPORT STATUS: Signed DATE:12/19/18 TIME: 958 PATIENT: MOISÉS CANNON UNIT #: [id number] ROOM/BED: [facility] UN[facility]-A : 55 AGE: 63 SEX: F ATTEND: Augustus Rivera MD ADM AUTHOR: Oumou Stanley NP * ALL edits or amendments must be made on the el [employer]/computer document * General Post-op: Day 11 Status post: RIGHT CHEST TUBE INSERTION Subjective Patient reports: No: complaints. Nursing reports: No: complaints. Comments: Seen at bedside Feeling better, with significant improvement to SQ emphysema. Want to and feels ready to go home Seen and evaluated by Dr. Rivera at bedside thi s AM Review of Systems Constitutional: Denies: chills, fatigue, fever, generalized weak ness. Respiratory: Denies: DIAMOND (dyspnea on exertion), SOB. Cardiovascular: Denies: chest pain, DIAMOND (dyspnea on exertion), e cecily, orthopnea. Objective Physical Exam VS/I O: Last Documented: Result Date Time Temp 97.0 12/19 0752 Pulse Ox 100 12/19 0700 B/P 137/94 12/19 0700 Pulse 76 12/19 0700 Resp 14 12/19 0700 FiO2 28 12/19 0647 O2 Delivery Nasal cannula 12/19 0647 O2 Flow Rate 2.299317 12/19 0647 B/P Mean 95 12/19 0500 24 hour I O ending at 0700: 12/19 0700 12/18 1900 Intake Total 200 450 Output Total Balance 200 450 Intake, Oral 200 450 Number Voids 1 3 Medications: Active Meds + DC'd Last 24 Hrs Diphenhydramine HCl 1 MARGOT DAILY PRN PRN TOPICAL (CKD) Alteplase, Recombinant 2 MG ASDIR IV (CKD) Magnesium Sulfate/Dextrose 1 GM ASDIR PRN IV Potassium Chloride 20 MEQ ASDIR PRN IV Fluticasone Propionate 1 SPRAY BID NASAL (CKD) Enoxaparin Sodium 40 MG Q24H SUBQ Ipratropium Freedom 0.5 MG RTQ4H NEB (CKD) Levalbuterol HCl 0.63 MG RTQ4H NEB Atorvastatin Calcium 40 MG BEDTIME PO Citalopram Hydrobromide 20 MG BEDTIME PO Docusate Sodium 100 MG BID PO Metoprolol Tartrate 25 MG BEDTIME PO Pantoprazole 20 MG BEDTIME PO Zolpidem Tartrate 10 MG BEDTIME PO Acetaminophen 650 MG Q4H PRN PRN PO Acetaminophen 650 MG Q4H PRN PRN RECTAL Bisacodyl 5 MG DAILY PRN PRN PO Bisacodyl 10 MG DAILY PRN PRN RECTAL Hydrocodone Bitart/Acetaminophen 1 TAB Q4H PRN P RN PO Hydrocodone Bitart/Acetaminophen 2 TAB Q4H PRN P RN PO Magnesium Hydroxide 30 ML DAILY PRN PRN PO Meperidine HCl 25 MG Q4H PRN PRN IM Naloxone HCl 0.2 MG ASDIR PRN IV Ondansetron HCl 4 MG Q4H PRN PRN IV General appearance: alert, awake, oriented, no a cute distress Wound/incision: Location: right thoracotomy, right chest tube s ite Site condition: dressing clean dry, dressing in tact, no drainage HEENT: Bilateral eyes open, swelling decreasing Neck: neck swelling-decreasing Cardiovascular: BP/pulses equal bilat., normal h eart sounds, regular rate rhythm Respiratory: aerating well, clear to auscultatio n, symmetric expansion, no distress, CT to water seal no air leak. SQ emphy sema area slowly improving Abdomen: soft, non-tender, normal bowel sounds Genitourinary: no william Extremities: moves all, BUE swelling-subq emphys candice-minimal at this time Neuro/PRODUCTION PLANNER SCHEDULER: alert, oriented X 3 Skin: subq enphysema (improving) Results Findings/Data: Laboratory Tests 12/19 0500 Chemistry Sodium (137 - 145 MMOL/L) 138 Potassium (3.5 - 5.1 MMOL/L) 4.7 Chloride (98 - 107 MMOL/L) 101 Carbon Dioxide (22 - 30 MMOL/L) 31 H BUN (7 - 17 MG/DL) 10 Creatinine (0.52 - 1.04 MG/DL) 0.60 Glomerular Filtr Rate > 60 Glucose (74 - 106 MG/DL) 97 Calcium (8.4 - 10.2 MG/DL) 9.2 Magnesium (1.6 - 2.3 MG/DL) 2.0 Laboratory Tests 12/19 0516 Hematology WBC (3.8 - 9.8 K/MM3) 8.2 RBC (3.58 - 4.97 M/MM3) 3.79 Hgb (11.2 - 14.9 G/DL) 10.6 L Hct (33.2 - 43.5 %) 34.9 MCV (80.7 - 99.1 fL) 92 MCH (27.0 - 34.1 pg) 28.0 MCHC (32.2 - 35.7 %) 30.4 L RDW (12.1 - 15.2 %) 14.7 Plt Count (129 - 368 K/MM3) 336 Neut # (Auto) (2.0 - 7.6 K/mm3) 4.14 Lymph # (Auto) (1.0 - 3.8 K/mm3) 1.62 [place] # (Auto) (0.1 - 0.8 K/mm3) 0.80 Eos # (Auto) (0.0 - 0.2 K/mm3) 1.44 H Baso # (Auto) (0.0 - 0.2 K/mm3) 0.09 Immature Gran % (0.0 - 2.0 %) 1.0 Nucleated RBCs # (Man) (0.0 - 0.1 K/mm3) 0.00 Radiology data: Recent Impressions: RADIOLOGY - XR CHEST 1V 12/18 1221 Report Impression - Status: SIGNED Entered: 12/18/2018 1337 IMPRESSION: Minimal patchy opacity left lung base. This coul d be due to atelectasis or pneumonia. Severe subcutaneous emphysema. Impression By: [email or web address] - Beny Aguero MD RADIOLOGY - XR CHEST 1V 12/19 0552 Report Impression - Status: SIGNED Entered: 12/19/2018 0830 IMPRESSION: No interval change in the appearance of the ches t. Impression By: [email or web address] - Pushpa Wagoner MD Diagnosis, Assessment Plan Free Text A P: This is a 63 Y/F with right lung nodule S/p Robotic assisted excision of right upper lob e lung nodule and excision of blebs Extensive subq emphysema- With improvement now t o less extent to face, neck, chest areas. Bilateral eyes open Caseating granuloma/fungal-f inal pathology-no antifungal treatment needed per ID Encourage IS and ambulation. Seen by Dr. Rivera at bedside, plan is for d/c home today. F/U with Dr. Rivera in 1-2 weeks Orders: Procedure Date/time Status Discharge Order with Parameter 12/19 1013 Activ e Plan discussed with: patient, collaborating MD ( Dr. Rivera) at 2231 RPT #:[id number] END OF REPORT 2018-12-19 09:59:00-00:00 [facility] ([facility]) Cardiovascular Surgery Prog REPORT#:[id number] REPORT STATUS: Signed DATE:12/19/18 TIME: 958 PATIENT: MOISÉS CANNON UNIT #: [id number] ROOM[address]BED: [address] : [address] AGE: 63 SEX: F ATTEND: Augustus Rivera MD ADM AUTHOR: Oumou Stanley NP * ALL edits or amendments must be made on the [employer] document * General Post-op: Day 11 Status post: RIGHT CHEST TUBE INSERTION Subjective Patient reports: No: complaints. Nursing reports: No: complaints. Comments: Seen at bedside Feeling better, with significant improvement to SQ emphysema. Want to and feels ready to go home Seen and evaluated by Dr. Rivera at bedside thi s AM Review of Systems Constitutional: Denies: chills, fatigue, fever, generalized weak ness. Respiratory: Denies: DIAMOND (dyspnea on exertion), SOB. Cardiovascular: Denies: chest pain, DIAMOND (dyspnea on exertion), e cecily, orthopnea. Objective Physical Exam VS/I O: Last Documented: Result Date Time Temp 97.0 12/19 0752 Pulse Ox 100 12/19 0700 B/P 137/94 12/19 0700 Pulse 76 12/19 0700 Resp 14 12/19 07 FiO2 28 12/19 0647 O2 Delivery Nasal cannula 12/19 0647 O2 Flow Rate 2.488955 12/19 0647 B/P Mean 95 12/19 0500 24 hour I O ending at 0700: 12/19 0700 12/18 1900 Intake Total 200 450 Output Total Balance 200 450 Intake, Oral 200 450 Number Voids 1 3 Medications: Active Meds + DC'd Last 24 Hrs Diphenhydramine HCl 1 MARGOT DAILY PRN PRN TOPICAL (CKD) Alteplase, Recombinant 2 MG ASDIR IV (CKD) Magnesium Sulfate/Dextrose 1 GM ASDIR PRN IV Potassium Chloride 20 MEQ ASDIR PRN IV Fluticasone Propionate 1 SPRAY BID NASAL (CKD) Enoxaparin Sodium 40 MG Q24H SUBQ Ipratropium Freedom 0.5 MG RTQ4H NEB (CKD) Levalbuterol HCl 0.63 MG RTQ4H NEB Atorvastatin Calcium 40 MG BEDTIME PO Citalopram Hydrobromide 20 MG BEDTIME PO Docusate Sodium 100 MG BID PO Metoprolol Tartrate 25 MG BEDTIME PO Pantoprazole 20 MG BEDTIME PO Zolpidem Tartrate 10 MG BEDTIME PO Acetaminophen 650 MG Q4H PRN PRN PO Acetaminophen 650 MG Q4H PRN PRN RECTAL Bisacodyl 5 MG DAILY PRN PRN PO Bisacodyl 10 MG DAILY PRN PRN RECTAL Hydrocodone Bitart/Acetaminophen 1 TAB Q4H PRN P RN PO Hydrocodone Bitart/Acetaminophen 2 TAB Q4H PRN P RN PO Magnesium Hydroxide 30 ML DAILY PRN PRN PO Meperidine HCl 25 MG Q4H PRN PRN IM Naloxone HCl 0.2 MG ASDIR PRN IV Ondansetron HCl 4 MG Q4H PRN PRN IV General appearance: alert, awake, oriented, no a cute distress Wound/incision: Location: right thoracotomy, right chest tube s ite Site condition: dressing clean dry, dressing in tact, no drainage HEENT: Bilateral eyes open, swelling decreasing Neck: neck swelling-decreasing Cardiovascular: BP/pulses equal bilat., normal h eart sounds, regular rate rhythm Respiratory: aerating well, clear to auscultatio n, symmetric expansion, no distress, CT to water seal no air leak. SQ emphy sema area slowly improving Abdomen: soft, non-tender, normal bowel sounds Genitourinary: no william Extremities: moves all, BUE swelling-subq emphys candice-minimal at this time Neuro/PRODUCTION PLANNER SCHEDULER: alert, oriented X 3 Skin: subq enphysema (improving) Results Findings/Data: Laboratory Tests 12/19 0500 Chemistry Sodium (137 - 145 MMOL/L) 138 Potassium (3.5 - 5.1 MMOL/L) 4.7 Chloride (98 - 107 MMOL/L) 101 Carbon Dioxide (22 - 30 MMOL/L) 31 H BUN (7 - 17 MG/DL) 10 Creatinine (0.52 - 1.04 MG/DL) 0.60 Glomerular Filtr Rate > 60 Glucose (74 - 106 MG/DL) 97 Calcium (8.4 - 10.2 MG/DL) 9.2 Magnesium (1.6 - 2.3 MG/DL) 2.0 Laboratory Tests 12/19 0516 Hematology WBC (3.8 - 9.8 K/MM3) 8.2 RBC (3.58 - 4.97 M/MM3) 3.79 Hgb (11.2 - 14.9 G/DL) 10.6 L Hct (33.2 - 43.5 %) 34.9 MCV (80.7 - 99.1 fL) 92 MCH (27.0 - 34.1 pg) 28.0 MCHC (32.2 - 35.7 %) 30.4 L RDW (12.1 - 15.2 %) 14.7 Plt Count (129 - 368 K/MM3) 336 Neut # (Auto) (2.0 - 7.6 K/mm3) 4.14 Lymph # (Auto) (1.0 - 3.8 K/mm3) 1.62 [place] # (Auto) (0.1 - 0.8 K/mm3) 0.80 Eos # (Auto) (0.0 - 0.2 K/mm3) 1.44 H Baso # (Auto) (0.0 - 0.2 K/mm3) 0.09 Immature Gran % (0.0 - 2.0 %) 1.0 Nucleated RBCs # (Man) (0.0 - 0.1 K/mm3) 0.00 Radiology data: Recent Impressions: RADIOLOGY - XR CHEST 1V 12/18 1221 Report Impression - Status: SIGNED Entered: 12/18/2018 1337 IMPRESSION: Minimal patchy opacity left lung base. This coul d be due to atelectasis or pneumonia. Severe subcutaneous emphysema. Impression By: Keiry - Beny Aguero MD RADIOLOGY - XR CHEST 1V 12/19 0552 Report Impression - Status: SIGNED Entered: 12/19/2018 0830 IMPRESSION: No interval change in the appearance of the ches t. Impression By: [email or web address] - Pushpa Wagoner MD Diagnosis, Assessment Plan Free Text A P: This is a 63 Y/F with right lung nodule S/p Robotic assisted excision of right upper lob e lung nodule and excision of blebs Extensive subq emphysema- With improvement now t o less extent to face, neck, chest areas. Bilateral eyes open Caseating granuloma/fungal-f inal pathology-no antifungal treatment needed per ID Encourage IS and ambulation. Seen by Dr. Rivera at bedside, plan is for d/c home today. F/U with Dr. Rivera in 1-2 weeks Orders: Procedure Date/time Status Discharge Order with Parameter 12/19 1013 Activ e Plan discussed with: patient, collaborating MD ( Dr. Rivera) at 2231 at 2122 RPT #:[id number] END OF REPORT 2018-12-18 19:05:00-00:00 [facility] ([facility]) Hospitalist Progress Note REPORT#:[id number] REPORT STATUS: Signed DATE:12/18/18 TIME: 1904 PATIENT: MOISÉS CANNON UNIT #: [id number] [address]BED: [address] : [address] AGE: 63 SEX: F ATTEND: Augustus Rivera MD ADM AUTHOR: Romelia Aleman MD * ALL edits or amendments must be made on the [employer]/computer document * Subjective Chief Complaint: 63 y/o female post lung biopsy ,w subcutaneous e mphysema Objective Physical Exam Head/Eyes: looks better Cardiovascular: normal capillary refill, regular rate rhythm Respiratory: aerating well, clear to auscultatio n Abdomen: distended, tenderness, normal bowel yanelis nds Extremities: edema, moves al l, normal capillary refill, crepitus over the chest hand , face Musculoskeletal: normal inspection Neuro/PRODUCTION PLANNER SCHEDULER: alert, oriented X 3 Diagnosis, Assessment Plan Free Text DxA P Notes Free text DxA P notes: Free Text DxA P Notes Assesment: -RUL nodule/blebs s/p excision -Dyspnea on exertion -Extensive subcutaneous emphysema Plan: -Continue oxygen as needed -cont nebs , pulmicort -Monitor chest tube output; Management per CT barth rgeon -Continue home meds as appropriate -pain control -DVT prophylaxis - SCD 12/02 cont chest tube cont oxygen, nebs management per [facility] dvt ppx: scd 12/03 pt is stable, transfer out icu cont chest tube cont cont management 12/04 transferred back to ICU bc of sq emphysema- CV s x following Chest Xray shows worsening s ubcutaneous emphysema otherwise stable appearance of the chest Cont Chest tube Cont current management on clear liquid diet. DVT prophylaxis: SCD 12/05 -Chest Xray shows worsening subcutaneous emphysema and development of bibasilar atelectasis and questionable small pneumomediast inum. 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 -Encourage IS and ambulation -Granddaughter at bedside -Caseating granuloma/fungal-final pathology-ID c onsulted -Cont Chest tube -Cont current management -DVT prophylasix-lovenox 12/07- cxr same. - pt NPO for possible OR today by dr Rivera - will continue with current supportive care. 12/08- breathing comfortably with mask. able to s it at the edge of the bed. - ct in place. CV surgery following. - will continue with current mx. 12/09 -CT in place continue to monitor -Continue current mx -Continue to ambulate 12/10 -CT in place continue to monitor -Continue current mx -Continue to ambulate 4/ Pt is in ICU,, sitting up in the chair Continue current rx CT to be taken out per DR rivera Eyes are little better 4/3 pt is doing well, no new changes still w subcutaneous emphysema 4/ Pt is doing about same, still w crepitus 4/ Pt was sleeping , sitting up in the john r but says had difficulty in breathing seems swelling slightly better 12/16 Pt is about same DW Dr Rivera yesterday, need to give time for e mphysema to improve 12/17 pt is doing much better sats are better 12/18/18: patient is a 62-year-old female doing w ell post lung biopsy. Chest tubes have been removed she is tolerating food ambulating. Continue current treatment which include Xopenex nebulization Protonix tabl et metoprolol twice daily citalopram atorvastatin pain control with Marion morphine Demerol supplement potassium magnesium. DVT prophylaxis with Loveno x. Planning for discharge home tomorrow. 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 Quality Advanced Care Plan 65 or Older Discussed with: patient Discussion included: code status BMI Screening > 25 or < 18.5 BMI status/follow-up: abnl BMI, pt to F/U w/PCP Tobacco Use/Counseling Tobacco use/counseling: tobacco user HTN Screening/Follow-up B/P assess/follow-up: normal B/P, no f/u req Electronically Signed by Romelia Aleman MD on 05/30 at 2124 RPT #:[id number] END OF REPORT 2018-12-18 12:30:00-00:00 [facility] ([facility]) Cardiovascular Surgery Prog REPORT#:[id number] REPORT STATUS: Signed DATE:12/18/18 TIME: 1230 PATIENT: MOISÉS CANNON UNIT #: [id number] ROOM/BED: [address] : 55 AGE: 63 SEX: F ATTEND: Augustus Rivera MD ADM AUTHOR: Oumou Stanlye NP * ALL edits or amendments must be made on the [employer]/computer document * General Post-op: day 10 Status post: RIGHT CHEST TUBE INSERTION Subjective Patient reports: No: complaints. Nursing reports: No: complaints. Objective Physical Exam VS/I O: Last Documented: Result Date Time Pulse Ox 100 12/18 899 B/P 122/84 12/18 899 B/P Mean 100 12/18 899 Pulse 75 12/18 0800 Resp 18 12/18 899 FiO2 21 12/18 0851 O2 Delivery Room air 12/18 850 Temp 97.8 12/18 0730 O2 Flow Rate 2.956473 12/17 1044 24 hour I O ending at 0700: 12/18 0700 12/17 1900 Intake Total 100.00 830 Output Total 1 Balance 99.00 830 Intake, IV 100.00 Intake, Oral 830 Number 1 Bowel Movements Number Voids 4 5 Output, Urine 1 Medications: Active Meds + DC'd Last 24 Hrs Diphenhydramine HCl 1 MARGOT DAILY PRN PRN TOPICAL (CKD) Alteplase, Recombinant 2 MG ASDIR IV (CKD) Magnesium Sulfate/Dextrose 1 GM ASDIR PRN IV Potassium Chloride 20 MEQ ASDIR PRN IV Fluticasone Propionate 1 SPRAY BID NASAL (CKD) Enoxaparin Sodium 40 MG Q24H SUBQ Ipratropium Freedom 0.5 MG RTQ4H NEB (CKD) Levalbuterol HCl 0.63 MG RTQ4H NEB Atorvastatin Calcium 40 MG BEDTIME PO Citalopram Hydrobromide 20 MG BEDTIME PO Docusate Sodium 100 MG BID PO Metoprolol Tartrate 25 MG BEDTIME PO Pantoprazole 20 MG BEDTIME PO Zolpidem Tartrate 10 MG BEDTIME PO Acetaminophen 650 MG Q4H PRN PRN PO Acetaminophen 650 MG Q4H PRN PRN RECTAL Bisacodyl 5 MG DAILY PRN PRN PO Bisacodyl 10 MG DAILY PRN PRN RECTAL Hydrocodone Bitart/Acetaminophen 1 TAB Q4H PRN P RN PO Hydrocodone Bitart/Acetaminophen 2 TAB Q4H PRN P RN PO Magnesium Hydroxide 30 ML DAILY PRN PRN PO Meperidine HCl 25 MG Q4H PRN PRN IM Naloxone HCl 0.2 MG ASDIR PRN IV Ondansetron HCl 4 MG Q4H PRN PRN IV General appearance: alert, awake, oriented, no a cute distress HEENT: Bilateral eyes open, swelling decreasing Neck: neck swelling-decreasing Cardiovascular: BP/pulses equal bilat., normal h eart sounds, regular rate rhythm Respiratory: aerating well, clear to auscultatio n, symmetric expansion, no distress, CT to water seal no air leak. SQ emphy sema area slowly improving Abdomen: soft, non-tender, normal bowel sounds Genitourinary: no william Extremities: moves all, BUE swelling-subq emphys candice-minimal at this time Neuro/PRODUCTION PLANNER SCHEDULER: alert, oriented X 3 Skin: subq enphysema (improving) Results Findings/Data: Laboratory Tests 12/18 0430 Chemistry Sodium (137 - 145 MMOL/L) 135 L Potassium (3.5 - 5.1 MMOL/L) 4.0 Chloride (98 - 107 MMOL/L) 103 Carbon Dioxide (22 - 30 MMOL/L) 29 BUN (7 - 17 MG/DL) 10 Creatinine (0.52 - 1.04 MG/DL) 0.50 L Glomerular Filtr Rate > 60 Glucose (74 - 106 MG/DL) 106 Calcium (8.4 - 10.2 MG/DL) 8.8 Magnesium (1.6 - 2.3 MG/DL) 1.9 Laboratory Tests 12/18 0430 Hematology WBC (3.8 - 9.8 K/MM3) 8.1 RBC (3.58 - 4.97 M/MM3) 3.57 L Hgb (11.2 - 14.9 G/DL) 10.1 L Hct (33.2 - 43.5 %) 32.5 L MCV (80.7 - 99.1 fL) 91 MCH (27.0 - 34.1 pg) 28.3 MCHC (32.2 - 35.7 %) 31.1 L RDW (12.1 - 15.2 %) 14.8 Plt Count (129 - 368 K/MM3) 320 Neut # (Auto) (2.0 - 7.6 K/mm3) 4.43 Lymph # (Auto) (1.0 - 3.8 K/mm3) 1.50 [place] # (Auto) (0.1 - 0.8 K/mm3) 0.85 H Eos # (Auto) (0.0 - 0.2 K/mm3) 1.13 H Baso # (Auto) (0.0 - 0.2 K/mm3) 0.06 Total Counted (#CELLS) 130 Immature Gran % (0.0 - 2.0 %) 1.0 Seg Neutrophils % (36.2 - 73.8 %) 62.2 Band Neutrophils % (0 - 10 %) 0.0 Lymphocytes % (Manual) (12.9 - 45.1 %) 11.7 L Atypical Lymphs % (0 - 0 %) 0.0 Monocytes % (Manual) (0 - 11 %) 4.5 Eosinophils % (Manual) (1 - 7 %) 21.6 H Nucleated RBC % (0 - 0) 3 H Nucleated RBCs # (Man) (0.0 - 0.1 K/mm3) 0.00 Platelet Estimate (ADEQUATE) ADEQUATE Plt Morphology Comment (NORMAL) NORMAL Radiology data: Recent Impressions: RADIOLOGY - XR CHEST 1V 12/18 0540 Report Impression - Status: SIGNED Entered: 12/18/2018 0822 IMPRESSION: Small right pleural effusion. Mild left basilar opacities, likely representing atelectasis. Impression By: Kecia Wagoner MD RADIOLOGY - XR CHEST 1V 12/18 1221 Report Impression - Status: SIGNED Entered: 12/18/2018 1337 IMPRESSION: Minimal patchy opacity left lung base. This coul d be due to atelectasis or pneumonia. Severe subcutaneous emphysema. Impression By: Keiry Aguero MD Diagnosis, Assessment Plan Free Text A P: This is a 63 Y/F with right lung nodule S/p Robotic assisted excision of right upper lob e lung nodule and excision of blebs Extensive subq emphysema- With improvement now t o less extent to face, chest areas. Bilateral eyes open CT water seal-no air leak D/C today-repeat CXR no ptx. subq emphysema D/C CVC Caseating granuloma/fungal-f inal pathology-no antifungal treatment needed per ID Encourage IS and ambulation. Plan for possible d/c home tomorrow Orders: Procedure Date/time Status Discontinue chest tube 12/18 1233 Active Central Line - Discontinue 12/18 1233 Active XR CHEST 1V 12/18 1225 Active Plan discussed with: patient, collaborating MD ( Dr. Rivera) at 2146 RPT #:[id number] END OF REPORT 2018-12-18 12:30:00-00:00 [facility] ([facility]) Cardiovascular Surgery Prog REPORT#:[id number] REPORT STATUS: Signed DATE:12/18/18 TIME: 1230 PATIENT: MOISÉS CANNON UNIT #: [id number] ROOM/BED: [facility]-A : 55 AGE: 63 SEX: F ATTEND: Augustus Rivera MD ADM AUTHOR: Oumou Stanley NP * ALL edits or amendments must be made on the el [employer]/computer document * General Post-op: day 10 Status post: RIGHT CHEST TUBE INSERTION Subjective Patient reports: No: complaints. Nursing reports: No: complaints. Objective Physical Exam VS/I O: Last Documented: Result Date Time Pulse Ox 100 12/18 899 B/P 122/84 12/18 899 B/P Mean 100 12/18 899 Pulse 75 12/18 899 Resp 18 12/18 899 FiO2 21 12/18 0851 O2 Delivery Room air 12/18 850 Temp 97.8 12/18 0730 O2 Flow Rate 2.299646 12/17 1044 24 hour I O ending at 0700: 12/18 1900 Intake Total 100.00 830 Output Total 1 Balance 99.00 830 Intake, IV 100.00 Intake, Oral 830 Number 1 Bowel Movements Number Voids 4 5 Output, Urine 1 Medications: Active Meds + DC'd Last 24 Hrs Diphenhydramine HCl 1 MARGOT DAILY PRN PRN TOPICAL (CKD) Alteplase, Recombinant 2 MG ASDIR IV (CKD) Magnesium Sulfate/Dextrose 1 GM ASDIR PRN IV Potassium Chloride 20 MEQ ASDIR PRN IV Fluticasone Propionate 1 SPRAY BID NASAL (CKD) Enoxaparin Sodium 40 MG Q24H SUBQ Ipratropium Freedom 0.5 MG RTQ4H NEB (CKD) Levalbuterol HCl 0.63 MG RTQ4H NEB Atorvastatin Calcium 40 MG BEDTIME PO Citalopram Hydrobromide 20 MG BEDTIME PO Docusate Sodium 100 MG BID PO Metoprolol Tartrate 25 MG BEDTIME PO Pantoprazole 20 MG BEDTIME PO Zolpidem Tartrate 10 MG BEDTIME PO Acetaminophen 650 MG Q4H PRN PRN PO Acetaminophen 650 MG Q4H PRN PRN RECTAL Bisacodyl 5 MG DAILY PRN PRN PO Bisacodyl 10 MG DAILY PRN PRN RECTAL Hydrocodone Bitart/Acetaminophen 1 TAB Q4H PRN P RN PO Hydrocodone Bitart/Acetaminophen 2 TAB Q4H PRN P RN PO Magnesium Hydroxide 30 ML DAILY PRN PRN PO Meperidine HCl 25 MG Q4H PRN PRN IM Naloxone HCl 0.2 MG ASDIR PRN IV Ondansetron HCl 4 MG Q4H PRN PRN IV General appearance: alert, awake, oriented, no a cute distress HEENT: Bilateral eyes open, swelling decreasing Neck: neck swelling-decreasing Cardiovascular: BP/pulses equal bilat., normal h eart sounds, regular rate rhythm Respiratory: aerating well, clear to auscultatio n, symmetric expansion, no distress, CT to water seal no air leak. SQ emphy sema area slowly improving Abdomen: soft, non-tender, normal bowel sounds Genitourinary: no william Extremities: moves all, BUE swelling-subq emphys candice-minimal at this time Neuro/PRODUCTION PLANNER SCHEDULER: alert, oriented X 3 Skin: subq enphysema (improving) Results Findings/Data: Laboratory Tests 12/18 429 Chemistry Sodium (137 - 145 MMOL/L) 135 L Potassium (3.5 - 5.1 MMOL/L) 4.0 Chloride (98 - 107 MMOL/L) 103 Carbon Dioxide (22 - 30 MMOL/L) 29 BUN (7 - 17 MG/DL) 10 Creatinine (0.52 - 1.04 MG/DL) 0.50 L Glomerular Filtr Rate > 60 Glucose (74 - 106 MG/DL) 106 Calcium (8.4 - 10.2 MG/DL) 8.8 Magnesium (1.6 - 2.3 MG/DL) 1.9 Laboratory Tests 12/18 429 Hematology WBC (3.8 - 9.8 K/MM3) 8.1 RBC (3.58 - 4.97 M/MM3) 3.57 L Hgb (11.2 - 14.9 G/DL) 10.1 L Hct (33.2 - 43.5 %) 32.5 L MCV (80.7 - 99.1 fL) 91 MCH (27.0 - 34.1 pg) 28.3 MCHC (32.2 - 35.7 %) 31.1 L RDW (12.1 - 15.2 %) 14.8 Plt Count (129 - 368 K/MM3) 320 Neut # (Auto) (2.0 - 7.6 K/mm3) 4.43 Lymph # (Auto) (1.0 - 3.8 K/mm3) 1.50 [place] # (Auto) (0.1 - 0.8 K/mm3) 0.85 H Eos # (Auto) (0.0 - 0.2 K/mm3) 1.13 H Baso # (Auto) (0.0 - 0.2 K/mm3) 0.06 Total Counted (#CELLS) 130 Immature Gran % (0.0 - 2.0 %) 1.0 Seg Neutrophils % (36.2 - 73.8 %) 62.2 Band Neutrophils % (0 - 10 %) 0.0 Lymphocytes % (Manual) (12.9 - 45.1 %) 11.7 L Atypical Lymphs % (0 - 0 %) 0.0 Monocytes % (Manual) (0 - 11 %) 4.5 Eosinophils % (Manual) (1 - 7 %) 21.6 H Nucleated RBC % (0 - 0) 3 H Nucleated RBCs # (Man) (0.0 - 0.1 K/mm3) 0.00 Platelet Estimate (ADEQUATE) ADEQUATE Plt Morphology Comment (NORMAL) NORMAL Radiology data: Recent Impressions: RADIOLOGY - XR CHEST 1V 12/18 0540 Report Impression - Status: SIGNED Entered: 12/18/2018 0822 IMPRESSION: Small right pleural effusion. Mild left basilar opacities, likely representing atelectasis. Impression By: [email or web address] Rosalinda Wagoner MD RADIOLOGY - XR CHEST 1V 12/18 1221 Report Impression - Status: SIGNED Entered: 12/18/2018 1337 IMPRESSION: Minimal patchy opacity left lung base. This coul d be due to atelectasis or pneumonia. Severe subcutaneous emphysema. Impression By: Keiry Aguero MD Diagnosis, Assessment Plan Free Text A P: This is a 63 Y/F with right lung nodule S/p Robotic assisted excision of right upper lob e lung nodule and excision of blebs Extensive subq emphysema- With improvement now t o less extent to face, chest areas. Bilateral eyes open CT water seal-no air leak D/C today-repeat CXR no ptx. subq emphysema D/C CVC Caseating granuloma/fungal-f inal pathology-no antifungal treatment needed per ID Encourage IS and ambulation. Plan for possible d/c home tomorrow Orders: Procedure Date/time Status Discontinue chest tube 12/18 1233 Active Central Line - Discontinue 12/18 1233 Active XR CHEST 1V 12/18 1225 Active Plan discussed with: patient, collaborating MD ( Dr. Rivera) at 2146 at 2122 RPT #:[id number] END OF REPORT 2018-12-17 20:13:00-00:00 [facility] ([facility]) Hospitalist Progress Note REPORT#:[id number] REPORT STATUS: Signed DATE:12/17/18 TIME: 2012 PATIENT: MOISÉS CANNON UNIT #: [id number] ROOM/BED: [address] : 55 AGE: 63 SEX: F ATTEND: Augustus Rivera MD ADM AUTHOR: Karen Vasquez MD * ALL edits or amendments must be made on the [employer]/computer document * Subjective Chief Complaint: 63 y/o female post lung biopsy ,w subcutaneous e mphysema Review of Systems Constitutional: Reports: fatigue, generalized weakness. Denies: fever. Eyes: Reports: swelling. ENT: Denies: sore throat. Respiratory: Reports: SOB. Cardiovascular: Reports: edema. GI: Denies: diarrhea, vomiting. Neuro: Denies: confusion, dizziness. Systems reviewed negative: Allergy/Immun , Constitutional, Endocrine, ENT, Eyes , GI, , Heme, Musculoskeletal, Neuro, Psych, S kin Objective General VS/I O: Vital Signs: Date Time Temp Pulse Resp B/P B/P Pulse O2 O2 F low FiO2 Mean Ox Delivery Rate 12/17 1954 98.6 105 20 140/79 99 95 Room air 12/17 1915 95 Room air 28 12/17 1800 96 23 124/72 92 94 / 1708 96 27 117/80 94 95 12/17 1600 97.8 12/17 1600 101 28 91 12/17 1501 98 Room air 21 12/17 1500 92 25 115/79 94 100 /08 1400 90 33 97 /08 1300 87 36 114/76 89 100 / 1215 91 22 125/71 93 100 12/17 1120 97.9 12/17 1107 85 20 116/77 92 99 12/17 1044 100 Nasal 2.731762 28 cannula 12/17 1000 78 24 119/81 91 100 12/17 0900 81 17 103/67 81 100 12/17 0800 Nasal 2.830751 cannula 12/17 0800 81 26 118/71 90 100 / 0755 97.8 12/17 0700 76 24 158/91 119 100 / 0644 100 Nasal 2.901136 28 cannula 12/17 0600 79 16 134/74 99 100 / 0500 80 19 108/57 78 93 04/ 0400 98.1 / 0400 82 14 138/67 96 97 / 0300 78 16 135/76 94 96 / 0200 94 17 98/66 78 97 / 0104 80 129/67 89 91 04/08 0000 98.6 04/ 0000 88 20 97 12/16 2300 101 23 98 12/16 2248 103 26 130/66 88 99 12/16 2200 112 28 146/82 106 24 hour I O ending at 0700: 12/17 0700 12/16 1900 Intake Total 250 890 Output Total Balance 250 890 Intake, Oral 250 890 Number 1 Bowel Movements Number Voids 4 4 Medications: Documentation of Current Medications in the [facility] Record : I attest that the foregoing medication list in [facility] medical record is true, accurate, and complete to the best of my knowled ge. Active Meds + DC'd Last 24 Hrs Diphenhydramine HCl 1 MARGOT DAILY PRN PRN TOPICAL (CKD) Alteplase, Recombinant 2 MG ASDIR IV (CKD) Magnesium Sulfate/Dextrose 1 GM ASDIR PRN IV Potassium Chloride 20 MEQ ASDIR PRN IV Fluticasone Propionate 1 SPRAY BID NASAL (CKD) Enoxaparin Sodium 40 MG Q24H SUBQ Ipratropium Freedom 0.5 MG RTQ4H NEB (CKD) Levalbuterol HCl 0.63 MG RTQ4H NEB Atorvastatin Calcium 40 MG BEDTIME PO Citalopram Hydrobromide 20 MG BEDTIME PO Docusate Sodium 100 MG BID PO Metoprolol Tartrate 25 MG BEDTIME PO Pantoprazole 20 MG BEDTIME PO Zolpidem Tartrate 10 MG BEDTIME PO Acetaminophen 650 MG Q4H PRN PRN PO Acetaminophen 650 MG Q4H PRN PRN RECTAL Bisacodyl 5 MG DAILY PRN PRN PO Bisacodyl 10 MG DAILY PRN PRN RECTAL Hydrocodone Bitart/Acetaminophen 1 TAB Q4H PRN P RN PO Hydrocodone Bitart/Acetaminophen 2 TAB Q4H PRN P RN PO Magnesium Hydroxide 30 ML DAILY PRN PRN PO Meperidine HCl 25 MG Q4H PRN PRN IM Naloxone HCl 0.2 MG ASDIR PRN IV Ondansetron HCl 4 MG Q4H PRN PRN IV Physical Exam General appearance: alert, awake, oriented Head/Eyes: looks better ENT: normal dentition, normal ear left, normal e ar right, normal nose, normal pharynx, normal sinus Neck: full range of motion, non-tender, normal thyroid, supple/no meningismus, no bruit/NL carotids, no JVD, no masses or swell ing Cardiovascular: normal capillary refill, regular rate rhythm Respiratory: aerating well, clear to auscultatio n Abdomen: distended, tenderness, normal bowel yanelis nds Extremities: edema, moves al l, normal capillary refill, crepitus over the chest hand , face Musculoskeletal: normal inspection Neuro/PRODUCTION PLANNER SCHEDULER: alert, oriented X 3 Skin: subq emphysema (face, neck and chest ), dr reyes, intact Wound/incision: Site Condition: dressing clean dry, dressing in tact Results Findings/Data: Laboratory Tests 12/17 429 Chemistry Sodium (137 - 145 MMOL/L) 136 L Potassium (3.5 - 5.1 MMOL/L) 3.8 Chloride (98 - 107 MMOL/L) 103 Carbon Dioxide (22 - 30 MMOL/L) 30 BUN (7 - 17 MG/DL) 8 Creatinine (0.52 - 1.04 MG/DL) 0.60 Glomerular Filtr Rate > 60 Glucose (74 - 106 MG/DL) 110 H Calcium (8.4 - 10.2 MG/DL) 8.6 Magnesium (1.6 - 2.3 MG/DL) 2.0 Laboratory Tests 12/17 429 Coagulation INR (0.8 - 1.1) 1.0 PT Patient/Control Mix (9.6 - 11.6 SECONDS) 10. 4 Laboratory Tests 12/17 429 Hematology WBC (3.8 - 9.8 K/MM3) 7.7 RBC (3.58 - 4.97 M/MM3) 3.51 L Hgb (11.2 - 14.9 G/DL) 9.9 L Hct (33.2 - 43.5 %) 32.0 L MCV (80.7 - 99.1 fL) 91 MCH (27.0 - 34.1 pg) 28.2 MCHC (32.2 - 35.7 %) 30.9 L RDW (12.1 - 15.2 %) 15.0 Plt Count (129 - 368 K/MM3) 316 Neut # (Auto) (2.0 - 7.6 K/mm3) 4.52 Lymph # (Auto) (1.0 - 3.8 K/mm3) 1.21 [place] # (Auto) (0.1 - 0.8 K/mm3) 0.99 H Eos # (Auto) (0.0 - 0.2 K/mm3) 0.86 H Baso # (Auto) (0.0 - 0.2 K/mm3) 0.05 Total Counted (#CELLS) 130 Immature Gran % (0.0 - 2.0 %) 1.3 Seg Neutrophils % (36.2 - 73.8 %) 72.6 Band Neutrophils % (0 - 10 %) 0.0 Lymphocytes % (Manual) (12.9 - 45.1 %) 8.8 L Atypical Lymphs % (0 - 0 %) 1.8 H Monocytes % (Manual) (0 - 11 %) 8.0 Eosinophils % (Manual) (1 - 7 %) 7.9 H Basophils % (Manual) (0 - 2 %) 0.9 Nucleated RBC % (0 - 0) 2 H Nucleated RBCs # (Man) (0.0 - 0.1 K/mm3) 0.00 Platelet Estimate (ADEQUATE) ADEQUATE Plt Morphology Comment (NORMAL) NORMAL Diagnosis, Assessment Plan Free Text DxA P Notes Free text DxA P notes: Free Text DxA P Notes Free text DxA P notes: Assesment: -RUL nodule/blebs s/p excision -Dyspnea on exertion -Extensive subcutaneous emphysema Plan: -Continue oxygen as needed -cont nebs , pulmicort -Monitor chest tube output; Management per CT barth rgeon -Continue home meds as appropriate -pain control -DVT prophylaxis - SCD 12/02 cont chest tube cont oxygen, nebs management per [facility] dvt ppx: scd 12/03 pt is stable, transfer out icu cont chest tube cont cont management 12/04 transferred back to ICU bc of sq emphysema- CV s x following Chest Xray shows worsening s ubcutaneous emphysema otherwise stable appearance of the chest Cont Chest tube Cont current management on clear liquid diet. DVT prophylaxis: SCD 12/05 -Chest Xray shows worsening subcutaneous emphysema and development of bibasilar atelectasis and questionable small pneumomediast inum. 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 -Encourage IS and ambulation -Granddaughter at bedside -Caseating granuloma/fungal-final pathology-ID c onsulted -Cont Chest tube -Cont current management -DVT prophylasix-lovenox 12/07- cxr same. - pt NPO for possible OR today by dr Rivera - will continue with current supportive care. 12/08- breathing comfortably with mask. able to s it at the edge of the bed. - ct in place. CV surgery following. - will continue with current mx. 12/09 -CT in place continue to monitor -Continue current mx -Continue to ambulate 12/10 -CT in place continue to monitor -Continue current mx -Continue to ambulate 4/ Pt is in ICU,, sitting up in the chair Continue current rx CT to be taken out per DR rivera Eyes are little better 4/3 pt is doing well, no new changes still w subcutaneous emphysema 4/4 Pt is doing about same, still w crepitus 4/5 Pt was sleeping , sitting up in the john r but says had difficulty in breathing seems swelling slightly better 4/7 Pt is about same DW Dr Rivera yesterday, need to give time for e mphysema to improve 4/8 pt is doing much better sats are better Electronically Signed by Karen Vasquez MD on 04/29 at 2015 RPT #:[id number] END OF REPORT 2018-12-17 10:49:00-00:00 [facility] Cardiovascular Surgery Prog REPORT#:[id number] REPORT STATUS: Signed DATE:12/17/18 TIME: 1049 PATIENT: MOISÉS CANNON UNIT #: [id number] ROOM[address]BED: [address] : 55 AGE: 63 SEX: F ATTEND: Augustus Rivera MD ADM AUTHOR: Oumou Stanley NP * ALL edits or amendments must be made on the [employer]/computer document * General Post-op: day 9 Status post: RIGHT CHEST TUBE INSERTION Subjective Patient reports: No: complaints. Nursing reports: No: complaints. Comments: Seen sitting on the chair With improvement in subq emphysema Review of Systems Constitutional: Denies: chills, fatigue, fever, generalized weak ness. Respiratory: Denies: DIAMOND (dyspnea on exertion), SOB. Cardiovascular: Denies: chest pain, DIAMOND (dyspnea on exer tion), edema, orthopnea, palpitations. Objective Physical Exam VS/I O: Last Documented: Result Date Time Pulse Ox 100 12/17 1000 B/P 119/81 12/17 1000 B/P Mean 91 12/17 1000 Pulse 78 12/17 1000 Resp 24 12/17 1000 O2 Delivery Nasal cannula 12/17 0800 O2 Flow Rate 2.058371 12/17 0800 Temp 97.8 12/17 0755 FiO2 28 12/17 0644 24 hour I O ending at 0700: 12/17 0700 12/16 1900 Intake Total 250 890 Output Total Balance 250 890 Intake, Oral 250 890 Number 1 Bowel Movements Number Voids 4 4 Medications: Active Meds + DC'd Last 24 Hrs Diphenhydramine HCl 1 MARGOT DAILY PRN PRN TOPICAL (CKD) Alteplase, Recombinant 2 MG ASDIR IV (CKD) Magnesium Sulfate/Dextrose 1 GM ASDIR PRN IV Potassium Chloride 20 MEQ ASDIR PRN IV Fluticasone Propionate 1 SPRAY BID NASAL (CKD) Enoxaparin Sodium 40 MG Q24H SUBQ Ipratropium Freedom 0.5 MG RTQ4H NEB (CKD) Levalbuterol HCl 0.63 MG RTQ4H NEB Atorvastatin Calcium 40 MG BEDTIME PO Citalopram Hydrobromide 20 MG BEDTIME PO Docusate Sodium 100 MG BID PO Metoprolol Tartrate 25 MG BEDTIME PO Pantoprazole 20 MG BEDTIME PO Zolpidem Tartrate 10 MG BEDTIME PO Acetaminophen 650 MG Q4H PRN PRN PO Acetaminophen 650 MG Q4H PRN PRN RECTAL Bisacodyl 5 MG DAILY PRN PRN PO Bisacodyl 10 MG DAILY PRN PRN RECTAL Hydrocodone Bitart/Acetaminophen 1 TAB Q4H PRN P RN PO Hydrocodone Bitart/Acetaminophen 2 TAB Q4H PRN P RN PO Magnesium Hydroxide 30 ML DAILY PRN PRN PO Meperidine HCl 25 MG Q4H PRN PRN IM Naloxone HCl 0.2 MG ASDIR PRN IV Ondansetron HCl 4 MG Q4H PRN PRN IV General appearance: alert, awake, oriented, no a cute distress Wound/incision: Location: right thoracotomy, right chest tube s ite Site condition: dressing clean dry, dressing in tact, no drainage HEENT: Bilateral eyes open, swelling decreasing Neck: neck swelling-decreasing Cardiovascular: BP/pulses equal bilat., normal h eart sounds, regular rate rhythm Respiratory: aerating well, clear to auscultatio n, symmetric expansion, no distress, CT to suction no a ie leak subq emphysema SQ empysema to the chest area slowly improving Abdomen: soft, non-tender, normal bowel sounds Genitourinary: no william Extremities: moves all, BUE swelling-subq emphys candice-minimal at this time Neuro/PRODUCTION PLANNER SCHEDULER: alert, oriented X 3 Skin: subq enphysema (improving) Results Findings/Data: Laboratory Tests 12/17 429 Chemistry Sodium (137 - 145 MMOL/L) 136 L Potassium (3.5 - 5.1 MMOL/L) 3.8 Chloride (98 - 107 MMOL/L) 103 Carbon Dioxide (22 - 30 MMOL/L) 30 BUN (7 - 17 MG/DL) 8 Creatinine (0.52 - 1.04 MG/DL) 0.60 Glomerular Filtr Rate > 60 Glucose (74 - 106 MG/DL) 110 H Calcium (8.4 - 10.2 MG/DL) 8.6 Magnesium (1.6 - 2.3 MG/DL) 2.0 Laboratory Tests 12/17 429 Coagulation INR (0.8 - 1.1) 1.0 PT Patient/Control Mix (9.6 - 11.6 SECONDS) 10. 4 Laboratory Tests 12/17 429 Hematology WBC (3.8 - 9.8 K/MM3) 7.7 RBC (3.58 - 4.97 M/MM3) 3.51 L Hgb (11.2 - 14.9 G/DL) 9.9 L Hct (33.2 - 43.5 %) 32.0 L MCV (80.7 - 99.1 fL) 91 MCH (27.0 - 34.1 pg) 28.2 MCHC (32.2 - 35.7 %) 30.9 L RDW (12.1 - 15.2 %) 15.0 Plt Count (129 - 368 K/MM3) 316 Neut # (Auto) (2.0 - 7.6 K/mm3) 4.52 Lymph # (Auto) (1.0 - 3.8 K/mm3) 1.21 [place] # (Auto) (0.1 - 0.8 K/mm3) 0.99 H Eos # (Auto) (0.0 - 0.2 K/mm3) 0.86 H Baso # (Auto) (0.0 - 0.2 K/mm3) 0.05 Total Counted (#CELLS) 130 Immature Gran % (0.0 - 2.0 %) 1.3 Seg Neutrophils % (36.2 - 73.8 %) 72.6 Band Neutrophils % (0 - 10 %) 0.0 Lymphocytes % (Manual) (12.9 - 45.1 %) 8.8 L Atypical Lymphs % (0 - 0 %) 1.8 H Monocytes % (Manual) (0 - 11 %) 8.0 Eosinophils % (Manual) (1 - 7 %) 7.9 H Basophils % (Manual) (0 - 2 %) 0.9 Nucleated RBC % (0 - 0) 2 H Nucleated RBCs # (Man) (0.0 - 0.1 K/mm3) 0.00 Platelet Estimate (ADEQUATE) ADEQUATE Plt Morphology Comment (NORMAL) NORMAL Radiology data: Recent Impressions: RADIOLOGY - XR CHEST 1V 12/17 0540 Report Impression - Status: SIGNED Entered: 12/17/2018 0851 IMPRESSION: Stable chest with chest tube in plac e and no detectable pneumothorax. There is more density in the left lung than seen on film several days ago possibly developing asymme tric pulmonary edema or pneumonia. Location: U19 Impression By: Ayleen - Chris Ortiz MD Diagnosis, Assessment Plan Free Text A P: This is a 63 Y/F with right lung nodule S/p Robotic assisted excision of right upper lob e lung nodule and excision of blebs Extensive subq emphysema-s/p CT removal and re-insertion. With some improvement. Bilateral eyes open CT to suction-no air leak today Caseating granuloma/fungal-f inal pathology-no antifungal treatment needed per ID Encourage IS and ambulation. 1700 Discussed with CV team, will place Chest tube to water seal this evening and monitor patient closely. Plan is to d/c CVC tomorrow and home soon. will monitor for subq air. Orders: Procedure Date/time Status Chest Tube Management 12/17 1805 Active Plan discussed with: patient , collaborating MD (Dr. Rivera, CVS team), nurse ( at bedside) at 1809 RPT #:[id number] END OF REPORT 2018-12-17 10:49:00-00:00 [facility] ([facility]) Cardiovascular Surgery Prog REPORT#:[id number] REPORT STATUS: Signed DATE:12/17/18 TIME: 1049 PATIENT: MOISÉS CANNON UNIT #: [id number] ROOM/BED: [address] : 55 AGE: 63 SEX: F ATTEND: Augustus Rivera MD ADM AUTHOR: Oumou Stanley NP * ALL edits or amendments must be made on the [employer]/computer document * General Post-op: day 9 Status post: RIGHT CHEST TUBE INSERTION Subjective Patient reports: No: complaints. Nursing reports: No: complaints. Comments: Seen sitting on the chair With improvement in subq emphysema Review of Systems Constitutional: Denies: chills, fatigue, fever, generalized weak ness. Respiratory: Denies: DIAMOND (dyspnea on exertion), SOB. Cardiovascular: Denies: chest pain, DIAMOND (dyspnea on exer tion), edema, orthopnea, palpitations. Objective Physical Exam VS/I O: Last Documented: Result Date Time Pulse Ox 100 12/17 1000 B/P 119/81 12/17 1000 B/P Mean 91 12/17 1000 Pulse 78 12/17 1000 Resp 24 12/17 1000 O2 Delivery Nasal cannula 12/17 0800 O2 Flow Rate 2.433803 12/17 0800 Temp 97.8 12/17 0755 FiO2 28 12/17 0644 24 hour I O ending at 0700: 12/17 0700 12/16 1900 Intake Total 250 890 Output Total Balance 250 890 Intake, Oral 250 890 Number 1 Bowel Movements Number Voids 4 4 Medications: Active Meds + DC'd Last 24 Hrs Diphenhydramine HCl 1 MARGOT DAILY PRN PRN TOPICAL (CKD) Alteplase, Recombinant 2 MG ASDIR IV (CKD) Magnesium Sulfate/Dextrose 1 GM ASDIR PRN IV Potassium Chloride 20 MEQ ASDIR PRN IV Fluticasone Propionate 1 SPRAY BID NASAL (CKD) Enoxaparin Sodium 40 MG Q24H SUBQ Ipratropium Freedom 0.5 MG RTQ4H NEB (CKD) Levalbuterol HCl 0.63 MG RTQ4H NEB Atorvastatin Calcium 40 MG BEDTIME PO Citalopram Hydrobromide 20 MG BEDTIME PO Docusate Sodium 100 MG BID PO Metoprolol Tartrate 25 MG BEDTIME PO Pantoprazole 20 MG BEDTIME PO Zolpidem Tartrate 10 MG BEDTIME PO Acetaminophen 650 MG Q4H PRN PRN PO Acetaminophen 650 MG Q4H PRN PRN RECTAL Bisacodyl 5 MG DAILY PRN PRN PO Bisacodyl 10 MG DAILY PRN PRN RECTAL Hydrocodone Bitart/Acetaminophen 1 TAB Q4H PRN P RN PO Hydrocodone Bitart/Acetaminophen 2 TAB Q4H PRN P RN PO Magnesium Hydroxide 30 ML DAILY PRN PRN PO Meperidine HCl 25 MG Q4H PRN PRN IM Naloxone HCl 0.2 MG ASDIR PRN IV Ondansetron HCl 4 MG Q4H PRN PRN IV General appearance: alert, awake, oriented, no a cute distress Wound/incision: Location: right thoracotomy, right chest tube s ite Site condition: dressing clean dry, dressing in tact, no drainage HEENT: Bilateral eyes open, swelling decreasing Neck: neck swelling-decreasing Cardiovascular: BP/pulses equal bilat., normal h eart sounds, regular rate rhythm Respiratory: aerating well, clear to auscultatio n, symmetric expansion, no distress, CT to suction no a ie leak subq emphysema SQ empysema to the chest area slowly improving Abdomen: soft, non-tender, normal bowel sounds Genitourinary: no william Extremities: moves all, BUE swelling-subq emphys candice-minimal at this time Neuro/PRODUCTION PLANNER SCHEDULER: alert, oriented X 3 Skin: subq enphysema (improving) Results Findings/Data: Laboratory Tests 12/17 429 Chemistry Sodium (137 - 145 MMOL/L) 136 L Potassium (3.5 - 5.1 MMOL/L) 3.8 Chloride (98 - 107 MMOL/L) 103 Carbon Dioxide (22 - 30 MMOL/L) 30 BUN (7 - 17 MG/DL) 8 Creatinine (0.52 - 1.04 MG/DL) 0.60 Glomerular Filtr Rate > 60 Glucose (74 - 106 MG/DL) 110 H Calcium (8.4 - 10.2 MG/DL) 8.6 Magnesium (1.6 - 2.3 MG/DL) 2.0 Laboratory Tests 12/17 429 Coagulation INR (0.8 - 1.1) 1.0 PT Patient/Control Mix (9.6 - 11.6 SECONDS) 10. 4 Laboratory Tests 12/17 429 Hematology WBC (3.8 - 9.8 K/MM3) 7.7 RBC (3.58 - 4.97 M/MM3) 3.51 L Hgb (11.2 - 14.9 G/DL) 9.9 L Hct (33.2 - 43.5 %) 32.0 L MCV (80.7 - 99.1 fL) 91 MCH (27.0 - 34.1 pg) 28.2 MCHC (32.2 - 35.7 %) 30.9 L RDW (12.1 - 15.2 %) 15.0 Plt Count (129 - 368 K/MM3) 316 Neut # (Auto) (2.0 - 7.6 K/mm3) 4.52 Lymph # (Auto) (1.0 - 3.8 K/mm3) 1.21 [place] # (Auto) (0.1 - 0.8 K/mm3) 0.99 H Eos # (Auto) (0.0 - 0.2 K/mm3) 0.86 H Baso # (Auto) (0.0 - 0.2 K/mm3) 0.05 Total Counted (#CELLS) 130 Immature Gran % (0.0 - 2.0 %) 1.3 Seg Neutrophils % (36.2 - 73.8 %) 72.6 Band Neutrophils % (0 - 10 %) 0.0 Lymphocytes % (Manual) (12.9 - 45.1 %) 8.8 L Atypical Lymphs % (0 - 0 %) 1.8 H Monocytes % (Manual) (0 - 11 %) 8.0 Eosinophils % (Manual) (1 - 7 %) 7.9 H Basophils % (Manual) (0 - 2 %) 0.9 Nucleated RBC % (0 - 0) 2 H Nucleated RBCs # (Man) (0.0 - 0.1 K/mm3) 0.00 Platelet Estimate (ADEQUATE) ADEQUATE Plt Morphology Comment (NORMAL) NORMAL Radiology data: Recent Impressions: RADIOLOGY - XR CHEST 1V 12/17 0540 Report Impression - Status: SIGNED Entered: 12/17/2018 0851 IMPRESSION: Stable chest with chest tube in plac e and no detectable pneumothorax. There is more density in the left lung than seen on film several days ago possibly developing asymme tric pulmonary edema or pneumonia. Location: U19 Impression By: [facility] - Chris Ortiz MD Diagnosis, Assessment Plan Free Text A P: This is a 63 Y/F with right lung nodule S/p Robotic assisted excision of right upper lob e lung nodule and excision of blebs Extensive subq emphysema-s/p CT removal and re-insertion. With some improvement. Bilateral eyes open CT to suction-no air leak today Caseating granuloma/fungal-f inal pathology-no antifungal treatment needed per ID Encourage IS and ambulation. 1700 Discussed with CV team, will place Chest tube to water seal this evening and monitor patient closely. Plan is to d/c CVC tomorrow and home soon. will monitor for subq air. Orders: Procedure Date/time Status Chest Tube Management 12/17 1806 Active Plan discussed with: patient , collaborating MD (Dr. Rivera, CVS team), nurse ( at bedside) at 1809 at 2122 RPT #:[id number] END OF REPORT 2018-12-17 07:35:00-00:00 [facility] Cardiology Progress Note REPORT#:[id number] REPORT STATUS: Signed DATE:12/17/18 TIME: 734 PATIENT: MOISÉS CANNON UNIT #: [id number] ROOM/BED: [facility] : 55 AGE: 63 SEX: F ATTEND: Augustus Rivera MD ADM AUTHOR: Miguel Chawla MD * ALL edits or amendments must be made on the Digital [employer] document * Subjective Chief Complaint: feels better, less facial swelling Patient reports: No: chest pain, palpitations, shortness of breat h. Objective General VS/I O: 24 hour I O ending at 0700: 12/17 0700 12/16 1900 Intake Total 250 890 Output Total Balance 250 890 Intake, Oral 250 890 Number 1 Bowel Movements Number Voids 4 4 Vital Signs: Date Time Temp Pulse Resp B/P B/P Pulse O2 O2 F low FiO2 Mean Ox Delivery Rate 12/17 0700 76 24 158/91 119 100 04/08 0600 79 16 134/74 99 100 04/08 0500 80 19 108/57 78 93 04/08 0400 98.1 04/08 0400 82 14 138/67 96 97 04/08 0300 78 16 135/76 94 96 04/08 0200 94 17 98/66 78 97 04/08 0104 80 129/67 89 91 04/08 0000 98.6 04/08 0000 88 20 97 04/07 2300 101 23 98 04/07 2248 103 26 130/66 88 99 04/07 2200 112 28 146/82 106 04/07 2000 109 21 126/79 93 96 04/07 1900 98.6 04/07 1900 2.141612 04/07 1900 109 27 128/69 93 97 04/07 1842 99 Nasal 2.259350 28 cannula 04/07 1800 108 42 115/83 94 93 04/07 1700 100 30 107/74 87 97 04/07 1600 98.2 04/07 1600 98 39 116/69 86 93 04/07 1500 93 19 126/74 92 97 04/07 1400 98 20 116/66 84 97 04/07 1300 101 26 141/112 122 97 04/07 1208 105 21 131/81 101 97 12/16 1200 97 18 161/72 103 96 12/16 1159 98.5 12/16 1100 83 18 139/89 107 97 12/16 1000 79 25 165/86 119 96 12/16 0900 79 19 167/78 111 95 12/16 0800 Nasal 3.924071 cannula 12/16 08 81 35 135/85 103 91 12/16 0754 97.8 Status post: Robotic assisted excision of right upper lobe pancho ng nodule. Staple excision of blebs right upper lobe of lung. Physical Exam General appearance: alert, awake, oriented Head/Eyes: atraumatic, Eyelids subcutaneous emph ysema. ENT: moist mucosal membranes Neck: supple/no meningismus, no bruit/NL carotids, no JVD, no masses or swelling Cardiovascular: CV assessment: regular rate and rhythm, BP puls es = bilaterally, normal heart sounds, no murmur Respiratory: decreased breath sounds, on oxygen, clear to auscultation, no distress Abdomen: soft, non-tender, no mass/organ omegaly, no pulsatile mass, no rebound Lower extremity: LE assessment: no edema, 2+ peripheral pulses Musculoskeletal: full range of motion Neuro/PRODUCTION PLANNER SCHEDULER: alert, oriented X 3, CN II-XII intact , no motor deficits Skin: abnormal color (S/Q emphysema) Psychiatry: normal affect, normal judgment/insig ht, normal mood, no hallucinations Results Findings/Data: Laboratory Tests 12/17 429 Chemistry Sodium (137 - 145 MMOL/L) 136 L Potassium (3.5 - 5.1 MMOL/L) 3.8 Chloride (98 - 107 MMOL/L) 103 Carbon Dioxide (22 - 30 MMOL/L) 30 BUN (7 - 17 MG/DL) 8 Creatinine (0.52 - 1.04 MG/DL) 0.60 Glomerular Filtr Rate > 60 Glucose (74 - 106 MG/DL) 110 H Calcium (8.4 - 10.2 MG/DL) 8.6 Magnesium (1.6 - 2.3 MG/DL) 2.0 Laboratory Tests 12/17 429 Coagulation INR (0.8 - 1.1) 1.0 PT Patient/Control Mix (9.6 - 11.6 SECONDS) 10. 4 Laboratory Tests 12/17 429 Hematology WBC (3.8 - 9.8 K/MM3) 7.7 RBC (3.58 - 4.97 M/MM3) 3.51 L Hgb (11.2 - 14.9 G/DL) 9.9 L Hct (33.2 - 43.5 %) 32.0 L MCV (80.7 - 99.1 fL) 91 MCH (27.0 - 34.1 pg) 28.2 MCHC (32.2 - 35.7 %) 30.9 L RDW (12.1 - 15.2 %) 15.0 Plt Count (129 - 368 K/MM3) 316 Neut # (Auto) (2.0 - 7.6 K/mm3) 4.52 Lymph # (Auto) (1.0 - 3.8 K/mm3) 1.21 [place] # (Auto) (0.1 - 0.8 K/mm3) 0.99 H Eos # (Auto) (0.0 - 0.2 K/mm3) 0.86 H Baso # (Auto) (0.0 - 0.2 K/mm3) 0.05 Immature Gran % (0.0 - 2.0 %) 1.3 Nucleated RBCs # (Man) (0.0 - 0.1 K/mm3) 0.00 Laboratory Tests 12/17 0430 Chemistry Magnesium (1.6 - 2.3 MG/DL) 2.0 Diagnosis, Assessment Plan Free Text DxA P Notes Free Text DxA P Notes: IMPRESSION: S/P Robotic assisted excision of right upper lo be lung nodule. Staple excision of blebs right upper lobe of lung. R PTX - subcutaneous emphysema. Improved. CAD-stable HTN HLP PVC's PAD AAA S/P EVAR COPD RECOMMEND: Continue current medical rx. Ambulate at 0828 RPT #:[id number] END OF REPORT 2018-12-16 20:14:00-00:00 [facility] ([facility]) Hospitalist Progress Note REPORT#:[id number] REPORT STATUS: Signed DATE:12/16/18 TIME: 2013 PATIENT: MOISÉS CANNON UNIT #: [id number] ROOM[address]BED: [address] : 55 AGE: 63 SEX: F ATTEND: Augustus Rivera MD ADM AUTHOR: Karen Vasquez MD * ALL edits or amendments must be made on the Digital [employer]/computer document * Subjective Chief Complaint: 63 y/o female post lung biopsy ,w subcutaneous e mphysema Review of Systems Constitutional: Reports: fatigue, generalized weakness. Denies: fever. Eyes: Reports: swelling. ENT: Denies: sore throat. Respiratory: Reports: SOB. Cardiovascular: Reports: edema. GI: Denies: diarrhea, vomiting. Neuro: Denies: confusion, dizziness. Systems reviewed negative: Allergy/Immun , Constitutional, Endocrine, ENT, Eyes , GI, , Heme, Musculoskeletal, Neuro, Psych, S kin Objective General VS/I O: Vital Signs: Date Time Temp Pulse Resp B/P B/P Pulse O2 O2 F low FiO2 Mean Ox Delivery Rate 12/16 1900 98.6 12/16 1900 2.941396 / 1800 108 42 115/83 94 93 04/ 1700 100 30 107/74 87 97 04/07 1600 98.2 04/ 1600 98 39 116/69 86 93 04/07 1500 93 19 126/74 92 97 04/07 1400 98 20 116/66 84 97 04/07 1300 101 26 141/112 122 97 04/07 1208 105 21 131/81 101 97 04/07 1200 97 18 161/72 103 96 04/07 1159 98.5 04/07 1100 83 18 139/89 107 97 04/07 1000 79 25 165/86 119 96 04/07 0900 79 19 167/78 111 95 04/07 0800 Nasal 3.100600 cannula 04/07 0800 81 35 135/85 103 91 04/07 0754 97.8 04/07 0700 90 19 129/59 81 98 04/07 0633 99 Nasal 2.667280 28 cannula 04/07 0600 84 20 129/95 106 96 04/07 0500 80 17 132/87 105 98 04/07 0400 82 17 134/94 110 99 04/07 0300 89 16 134/74 93 98 04/07 0200 84 15 147/88 111 99 04/07 0100 82 15 136/85 104 96 04/07 0000 93 18 134/81 102 99 04/06 2300 106 15 124/84 100 98 04/06 2200 103 23 147/81 107 100 12/15 2100 96 32 144/90 114 100 24 hour I O ending at 0700: 12/16 0700 12/15 1900 Intake Total 250 540 Output Total 2 750 Balance 248 -210 Intake, Oral 250 540 Output, Urine 2 750 Medications: Documentation of Current Medications in the [facility] Record : I attest that the foregoing medication list in [facility] medical record is true, accurate, and complete to the best of my knowled ge. Active Meds + DC'd Last 24 Hrs Diphenhydramine HCl 1 MARGOT DAILY PRN PRN TOPICAL (CKD) Alteplase, Recombinant 2 MG ASDIR IV (CKD) Magnesium Sulfate/Dextrose 1 GM ASDIR PRN IV Potassium Chloride 20 MEQ ASDIR PRN IV Fluticasone Propionate 1 SPRAY BID NASAL (CKD) Enoxaparin Sodium 40 MG Q24H SUBQ Ipratropium Freedom 0.5 MG RTQ4H NEB (CKD) Levalbuterol HCl 0.63 MG RTQ4H NEB Atorvastatin Calcium 40 MG BEDTIME PO Citalopram Hydrobromide 20 MG BEDTIME PO Docusate Sodium 100 MG BID PO Metoprolol Tartrate 25 MG BEDTIME PO Pantoprazole 20 MG BEDTIME PO Zolpidem Tartrate 10 MG BEDTIME PO Acetaminophen 650 MG Q4H PRN PRN PO Acetaminophen 650 MG Q4H PRN PRN RECTAL Bisacodyl 5 MG DAILY PRN PRN PO Bisacodyl 10 MG DAILY PRN PRN RECTAL Hydrocodone Bitart/Acetaminophen 1 TAB Q4H PRN P RN PO Hydrocodone Bitart/Acetaminophen 2 TAB Q4H PRN P RN PO Magnesium Hydroxide 30 ML DAILY PRN PRN PO Meperidine HCl 25 MG Q4H PRN PRN IM Naloxone HCl 0.2 MG ASDIR PRN IV Ondansetron HCl 4 MG Q4H PRN PRN IV Physical Exam General appearance: alert, awake, oriented Head/Eyes: abnormal eyelids, abnormal periorbita l ENT: normal dentition, normal ear left, normal e ar right, normal nose, normal pharynx, normal sinus Neck: full range of motion, non-tender, normal thyroid, supple/no meningismus, no bruit/NL carotids, no JVD, no masses or swell ing Cardiovascular: normal capillary refill, regular rate rhythm Respiratory: aerating well, clear to auscultatio n Abdomen: distended, tenderness, normal bowel yanelis nds Extremities: edema, moves al l, normal capillary refill, crepitus over the chest hand , face Musculoskeletal: normal inspection Neuro/PRODUCTION PLANNER SCHEDULER: alert, oriented X 3 Skin: subq emphysema (face, neck and chest ), dr reyes, intact Wound/incision: Site Condition: dressing clean dry, dressing in tact Results Radiology data: Recent Impressions: RADIOLOGY - XR CHEST 1V 12/16 0603 Report Impression - Status: SIGNED Entered: 12/16/2018 0708 Impression: No interval change. Impression By: [email or web address] - Chris Simmons M.D. Diagnosis, Assessment Plan Free Text DxA P Notes Free text DxA P notes: Free Text DxA P Notes Free text DxA P notes: Assesment: -RUL nodule/blebs s/p excision -Dyspnea on exertion -Extensive subcutaneous emphysema Plan: -Continue oxygen as needed -cont nebs , pulmicort -Monitor chest tube output; Management per CT barth rgeon -Continue home meds as appropriate -pain control -DVT prophylaxis - [facility] 12/02 cont chest tube cont oxygen, nebs management per [facility] dvt ppx: [facility] [place] 12/03 pt is stable, transfer out icu cont chest tube cont cont management 12/04 transferred back to ICU bc of sq emphysema- CV s x following Chest Xray shows worsening s ubcutaneous emphysema otherwise stable appearance of the chest Cont Chest tube Cont current management on clear liquid diet. DVT prophylaxis: [facility] 12/05 -Chest Xray shows worsening subcutaneous emphysema and development of bibasilar atelectasis and questionable small pneumomediast inum. 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 -Encourage IS and ambulation -Granddaughter at bedside -Caseating granuloma/fungal-final pathology-ID c onsulted -Cont Chest tube -Cont current management -DVT prophylasix-lovenox 12/07- cxr same. - pt NPO for possible OR today by dr Rivera - will continue with current supportive care. 12/08- breathing comfortably with mask. able to s it at the edge of the bed. - ct in place. CV surgery following. - will continue with current mx. 12/09 -CT in place continue to monitor -Continue current mx -Continue to ambulate 12/10 -CT in place continue to monitor -Continue current mx -Continue to ambulate 4/ Pt is in ICU,, sitting up in the chair Continue current rx CT to be taken out per DR rivera Eyes are little better / pt is doing well, no new changes still w subcutaneous emphysema / Pt is doing about same, still w crepitus 4/ Pt was sleeping , sitting up in the john r but says had difficulty in breathing seems swelling slightly better 12/16 Pt is about same DW Dr Rivera yesterday, need to give time for e mphysema to improve Quality Advanced Care Plan 65 or Older Discussed with: patient Discussion included: code status BMI Screening > 25 or < 18.5 BMI status/follow-up: abnl BMI, pt to F/U w/PCP Tobacco Use/Counseling Tobacco use/counseling: tobacco user HTN Screening/Follow-up B/P assess/follow-up: normal B/P, no f/u req Electronically Signed by Karen Vasquez MD on 03/29 at 2016 RPT #:[id number] END OF REPORT 2018-12-15 18:41:00-00:00 [id number] [place] [address] PATIENT NAME: MOISÉS CANNON ADMIT JOHNNY E: 11/30/18 ACCOUNT NO: [id number] ROOM NO: Z.SI04 AGE: 63 REPORT TYPE: PROGRESS NOTE SEX: F ADMITTING PHYSICIAN:Karen Vasquez MD ATTENDING PHYSICIAN:Chris Rivera MD DATE: 12/15/2018 SUBJECTIVE: This is a 63-year-old female who is sitting up in the chair with subcutaneous emphysema. Face is swollen, feels b criselda, not in distress. REVIEW OF SYSTEMS: Noted. MEDICATIONS: Noted. OBJECTIVE: HEENT: The patient's face is still swollen, but the eyes are easily open, patient is snoring with her neck extended with a pneic spells occasionally. VITAL SIGNS: Temperature 98. 4, pulse of 97, respiratory rate 20, blood pressure 149/82, sat 97%. HEENT: Face is swollen. Eyes shut as patient is still sleeping. Neck extended. The patient has crepitus on the face. CARDIOVASCULAR: Regular rate and rhythm. Respira tion decreased. ABDOMEN: Soft. EXTREMITIES: No edema. Upper extremity still has crepitus. LABORATORY STUDIES: WBC 7.9, hemoglobin 10, and platelet count is 320. Sodium 131, creatinine 0.5. ASSESSMENT: 1. Status post robotic-assisted excision of the right upper lung nodule. 2. Right pneumothorax with subcutaneous emphysem a. 3. Coronary artery disease, stable. 4. Chronic obstructive pulmonary disease. 5. Hypertension. 6. Hyperlipidemia. 7. Premature ventricular contractions. 8. Peripheral arterial disease. 9. Most likely sleep apnea. 10. AAA, status post EVAR. PLAN: Continue current treatment. Continue to mo bilize. 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 Anemia seems to be stable. Dictated By: Karen Vasquez MD WT: PN:IVETT/SOLANGE/JANNIE PATIENT NAME: MOISÉS CANNON Conf#: [id number]/DID#: [id number] Authenticated by Karen Vasquez MD On 12/15/2018 11:18:29 PM Electronically Signed by Karen Vasquez MD on at 2318 PATIENT NAME: MOISÉS CANNON 2018-12-15 09:06:00-00:00 [facility] ([facility]) Cardiology Progress Note REPORT#:[id number] REPORT STATUS: Signed DATE:12/15/18 TIME: 905 PATIENT: MOISÉS CANNON UNIT #: [id number] ROOM/BED: SI04-A : 55 AGE: 63 SEX: F ATTEND: Augustus Rivera MD ADM AUTHOR: Alen Hanson MD * ALL edits or amendments must be made on the el ectronic/computer document * Subjective Chief Complaint: feels better, less facial swelling Patient reports: Yes: shortness of breath, swelling. No: chest pa in, palpitations. Nursing reports: No: complaints. Objective General VS/I O: 24 hour I O ending at 0700: 04 0700 04/ 1900 Intake Total 150 550 Output Total 850 610 Balance -700 -60 Intake, Oral 150 550 Number 1 2 Bowel Movements Number Voids 1 Output, Chest 10 Tube Drainage Output, Urine 850 600 Vital Signs: Date Time Temp Pulse Resp B/P B/P Pulse O2 O2 F low FiO2 Mean Ox Delivery Rate 12/15 0900 63 34 134/74 99 89 04/06 0819 86 21 126/89 104 96 04/ 0800 98.3 04/ 0800 Nasal 3.835834 cannula 04/ 0716 96 Nasal 3.510555 32 cannula / 0700 75 26 171/94 122 87 04/06 0600 84 16 134/71 97 98 04/06 0500 75 22 139/82 106 91 04/06 0400 98.0 Nasal 2.849399 cannula 04/06 0400 88 19 129/69 86 92 04/06 0300 87 16 157/107 127 100 04/06 0200 97 33 128/90 104 95 04/06 0101 89 34 155/86 115 90 04/06 0000 98.2 Nasal 2.872471 cannula 04/06 0000 96 20 138/79 102 97 04/05 2300 103 19 145/86 109 96 04/05 2200 104 20 126/76 89 94 04/05 2101 147/79 105 04/05 2058 110 34 96 04/05 1999 Nasal 1.125996 cannula 04/05 1999 99.1 Nasal 1.366709 cannula 04/05 1999 106 19 142/73 97 95 04/05 1900 103 19 136/72 95 100 04/05 1845 97 Nasal 3.478650 32 cannula 04/05 1823 101 129/63 90 98 04/05 1820 26 04/05 1700 95 27 147/90 108 96 04/05 1627 97.3 04/05 1600 98 23 145/96 116 96 04/05 1500 95 17 144/77 102 97 04/05 1402 100 21 146/87 112 96 04/05 1300 95 18 136/76 101 98 04/05 1217 98.0 04/05 1201 98 19 153/83 112 94 12/14 1100 91 17 122/92 103 100 12/14 1009 95 146/84 108 95 Status post: Robotic assisted excision of right upper lobe pancho ng nodule. Staple excision of blebs right upper lobe of lung. Physical Exam General appearance: alert, awake, oriented, no a cute distress, pleasant, conversational, mental status normal, no respira tory distress Head/Eyes: atraumatic, Eyelids subcutaneous emph ysema. ENT: moist mucosal membranes Neck: supple/no meningismus, no bruit/NL carotids, no JVD, no masses or swelling Cardiovascular: CV assessment: regular rate and rhythm, BP puls es = bilaterally, normal heart sounds, no murmur Respiratory: decreased breath sounds, on oxygen, clear to auscultation, no distress Abdomen: soft, non-tender, no mass/organ omegaly, no pulsatile mass, no rebound Lower extremity: LE assessment: no edema, 2+ peripheral pulses Musculoskeletal: full range of motion Neuro/PRODUCTION PLANNER SCHEDULER: alert, oriented X 3, CN II-XII intact , no motor deficits Skin: abnormal color (S/Q emphysema) Psychiatry: normal affect, normal judgment/insig ht, normal mood, no hallucinations Results Findings/Data: Laboratory Tests 12/15 05 Chemistry Sodium (137 - 145 MMOL/L) 131 L Potassium (3.5 - 5.1 MMOL/L) 4.1 Chloride (98 - 107 MMOL/L) 98 Carbon Dioxide (22 - 30 MMOL/L) 29 BUN (7 - 17 MG/DL) 6 L Creatinine (0.52 - 1.04 MG/DL) 0.50 L Glomerular Filtr Rate > 60 Glucose (74 - 106 MG/DL) 101 Calcium (8.4 - 10.2 MG/DL) 9.0 Magnesium (1.6 - 2.3 MG/DL) 2.0 Laboratory Tests 12/15 0530 Hematology WBC (3.8 - 9.8 K/MM3) 7.9 RBC (3.58 - 4.97 M/MM3) 3.64 Hgb (11.2 - 14.9 G/DL) 10.2 L Hct (33.2 - 43.5 %) 32.9 L MCV (80.7 - 99.1 fL) 90 MCH (27.0 - 34.1 pg) 28.0 MCHC (32.2 - 35.7 %) 31.0 L RDW (12.1 - 15.2 %) 14.8 Plt Count (129 - 368 K/MM3) 320 MPV (7.4 - 10.4 fl) 9.4 Neut % (Auto) (43 - 75 %) 66.6 Lymph % (Auto) (14 - 44 %) 14.4 [place] % (Auto) (4 - 13 %) 9.3 Eos % (Auto) (0 - 6 %) 7.3 H Baso % (Auto) (0 - 2 %) 0.6 Neut # (Auto) (2.0 - 7.6 K/mm3) 5.23 Lymph # (Auto) (1.0 - 3.8 K/mm3) 1.13 [place] # (Auto) (0.1 - 0.8 K/mm3) 0.73 Eos # (Auto) (0.0 - 0.2 K/mm3) 0.57 H Baso # (Auto) (0.0 - 0.2 K/mm3) 0.05 Immature Gran % (0.0 - 2.0 %) 1.8 Nucleated RBC % (0 - 1.0 %) 0.0 Nucleated RBCs # (Man) (0.0 - 0.1 K/mm3) 0.00 Laboratory Tests 12/15 0530 Chemistry Magnesium (1.6 - 2.3 MG/DL) 2.0 Radiology data: Recent Impressions: RADIOLOGY - XR CHEST 1V 12/15 0515 Report Impression - Status: SIGNED Entered: 12/15/2018 0545 IMPRESSION: Stable operative changes in the right lung with chest tube. Extensive subcutaneous emphysema without any obvious pneum othorax. Impression By: [email or web address] - Obed Villasenor MD Results: labs reviewed, vital signs stable, EKG personally reviewed, rhythm personally rev'd, x-ray personally reviewed, cur rent med profile rev'd EKG Interpretation: normal sinus rhythm Telemetry Interpretation: SR PVC's Treatment Prophylaxis Treatment Prophylaxis William documentation: The data below has been impo rted from nursing documentation. Any exceptions have been noted below under Provider comments. _ Nursing Documentation Date william inserted: 11/30/18 Date william discontinued: 12/01/18 _ Provider comments: [] Diagnosis, Assessment Plan Problem List/A P: 1. Abdominal aortic aneurysm (AAA) >[address] 2. COPD without exacerbation 3. HLD (hyperlipidemia) 4. HTN (hypertension), benign Consultants: cardiovascular surgery Plan discussed with: patient, consultants, patie nt care team, nurse Free Text DxA P Notes Free Text DxA P Notes: IMPRESSION: S/P Robotic assisted excision of right upper lo be lung nodule. Staple excision of blebs right upper lobe of lung. R PTX - subcutaneous emphysema CAD-stable HTN HLP PVC's PAD AAA S/P EVAR COPD RECOMMEND: Continue current medical rx. Ambulate Electronically Signed by Alen Hanson MD on 0 12/15/18 at [facility] RPT #:[id number] END OF REPORT 2018-12-15 08:09:00-00:00 [id number] [place] [address] PATIENT NAME: MOISÉS CANNON ADMIT JOHNNY E: 11/30/18 ACCOUNT NO: [id number] ROOM NO: Z.SI04 AGE: 63 REPORT TYPE: ELECTROCARDIOGRAM SEX: F ADMITTING PHYSICIAN:Karen Vasquez MD ATTENDING PHYSICIAN:Chris Rivera MD Order: [id number] Test Reason : PVC's Test Date/Time Stamp: MonDec 15 2018 08:09:55 Blood Pressure : / mmHG Vent. Rate : 085 BPM Atrial Rate : 085 BPM P-R Int : 128 ms QRS Dur : 072 ms QT Int : 366 ms P-R-T Axes : 054 011 031 degree s QTc Int : 435 ms Normal sinus rhythm Possible Inferior infarct , age undetermined Abnormal ECG When compared with ECG of 15-DEC-2018 08:07, No significant change was found Confirmed by ALEN HANSON ([id number]) on 12/15/2018 2 :08:45 PM Referred By: Chris Rivera Confirmed by:ALEN BRADLEY at 1408 PATIENT NAME: MOISÉS CANNON 2018-12-15 08:07:00-00:00 [id number] [place] [address] PATIENT NAME: MOISÉS CANNON ADMIT JOHNNY E: 11/30/18 ACCOUNT NO: [id number] ROOM NO: Z.SI04 AGE: 63 REPORT TYPE: ELECTROCARDIOGRAM SEX: F ADMITTING PHYSICIAN:Karen Vasquez MD ATTENDING PHYSICIAN:Chris Rivera MD Order: [id number] Test Reason : PVC's Test Date/Time Stamp: MonDec 15 2018 08:07:29 Blood Pressure : / mmHG Vent. Rate : 000 BPM Atrial Rate : 000 BPM P-R Int : 000 ms QRS Dur : 000 ms QT Int : 000 ms P-R-T Axes : 000 000 000 degree s QTc Int : 000 ms No QRS complexes found, no ECG analysis possi ble When compared with ECG of 14-DEC-2018 09:54, Current undetermined rhythm precludes rhythm com parison, needs review Confirmed by ALEN HANSON ([id number]) on 12/15/2018 1 0:57:31 AM Referred By: Chris Rivera Confirmed by:ALEN BRADLEY at 1057 PATIENT NAME: MOISÉS CANNON 2018-12-14 18:54:00-00:00 [facility] ([facility]) Hospitalist Progress Note REPORT#:[id number] REPORT STATUS: Signed DATE:12/14/18 TIME: 1853 PATIENT: MOISÉS CANNON UNIT #: [id number] [address] AGE: 63 SEX: F ATTEND: Augustus Rivera MD ADM AUTHOR: Karen Vasquez MD * ALL edits or amendments must be made on the [employer]/computer document * Subjective Chief Complaint: No change in condition sitti ng up in chair swelling is still persistent but left eye more open better, Left eye is less swollen today. still w crepitus, CT in place Review of Systems Constitutional: Reports: fatigue, generalized weakness. Denies: fever. Eyes: Reports: swelling. ENT: Denies: sore throat. Respiratory: Reports: SOB. Cardiovascular: Reports: edema. GI: Denies: diarrhea, vomiting. Neuro: Denies: confusion, dizziness. Systems reviewed negative: Allergy/Immun , Constitutional, Endocrine, ENT, Eyes , GI, , Heme, Musculoskeletal, Neuro, Psych, S kin Objective General VS/I O: Vital Signs: Date Time Temp Pulse Resp B/P B/P Pulse O2 O2 F low FiO2 Mean Ox Delivery Rate 04/05 1845 97 Nasal 3.363335 32 cannula 04/05 1823 101 129/63 90 98 04/05 1820 26 04/05 1700 95 27 147/90 108 96 04/05 1627 97.3 04/05 1600 98 23 145/96 116 96 04/05 1500 95 17 144/77 102 97 04/05 1402 100 21 146/87 112 96 04/05 1300 95 18 136/76 101 98 04/05 1217 98.0 04/05 1201 98 19 153/83 112 94 04/05 1100 91 17 122/92 103 100 04/05 1009 95 146/84 108 95 04/05 0958 20 04/05 0900 97 18 146/87 110 96 04/05 0800 97 20 149/97 108 93 04/05 0715 98 19 94 04/05 0700 97.3 04/05 0700 Nasal 3.476215 cannula 04/05 0700 100 19 122/60 75 98 04/05 0656 98 Nasal 3.116772 32 cannula 04/05 0645 94 20 96 04/05 0630 91 21 94 04/05 0629 98 21 149/95 115 95 04/05 0615 90 19 94 04/05 0556 96 20 97 04/05 0545 90 19 96 04/05 0530 94 18 97 04/05 0515 98 19 04/05 0500 93 22 96 04/05 0445 91 20 93 04/05 0430 92 95 04/05 0415 100 25 97 04/05 0400 98.2 Nasal 2.767380 cannula 04/05 0400 94 18 129/95 109 96 04/05 0345 89 19 94 04/05 0330 96 18 96 04/05 0300 93 19 143/114 126 95 04/05 0245 89 18 99 04/05 0230 94 18 95 04/05 0215 91 17 92 04/05 0207 88 17 155/89 111 97 04/05 0130 89 17 95 04/05 0045 85 24 94 04/05 0015 87 25 92 04/05 0000 98.6 Nasal 2.849824 cannula 04/05 0000 88 142/96 116 92 04/04 2345 86 26 94 04/04 2329 92 96 04/04 2315 84 95 04/04 2300 84 155/86 108 95 04/04 2245 84 21 97 04/04 2215 85 24 95 04/04 2200 86 20 151/76 108 97 04/04 2145 90 19 96 04/04 2130 92 18 97 04/04 2115 96 18 98 04/04 2100 143/93 112 04/04 2045 104 21 98 04/04 2029 103 20 97 12/13 2014 104 96 /04 1999 Nasal 2.771260 cannula 12/14 1999 98.6 Room air 12/14 1999 104 28 98 04/04 1958 102 26 146/88 113 97 04/04 194 108 26 98 04/04 194 105 26 97 04/04 1930 101 97 04/04 191 105 26 96 04/04 190 105 27 150/88 109 97 24 hour I O ending at 0700: 0405 0700 04 190 Intake Total 1150 700.00 Output Total 60 1561 Balance 1090 -861.00 Intake, IV 200.00 Intake, Oral 1150 500 Number 2 3 Bowel Movements Number Voids 6 Output, Chest 10 10 Tube Drainage Output, Urine 50 1551 Patient 58.967 kg Weight Medications: Documentation of Current Medications in the [facility] Record : I attest that the foregoing medication list in [facility] medical record is true, accurate, and complete to the best of my knowled ge. Active Meds + DC'd Last 24 Hrs Potassium Chloride 40 MEQ NOW ONE PO (DC) Magnesium Sulfate/Dextrose 1 GM ASDIR PRN IV Potassium Chloride 20 MEQ ASDIR PRN IV Fluticasone Propionate 1 SPRAY BID NASAL (CKD) Enoxaparin Sodium 40 MG Q24H SUBQ Ipratropium Freedom 0.5 MG RTQ4H NEB (CKD) Levalbuterol HCl 0.63 MG RTQ4H NEB Atorvastatin Calcium 40 MG BEDTIME PO Citalopram Hydrobromide 20 MG BEDTIME PO Docusate Sodium 100 MG BID PO Metoprolol Tartrate 25 MG BEDTIME PO Pantoprazole 20 MG BEDTIME PO Zolpidem Tartrate 10 MG BEDTIME PO Acetaminophen 650 MG Q4H PRN PRN PO Acetaminophen 650 MG Q4H PRN PRN RECTAL Bisacodyl 5 MG DAILY PRN PRN PO Bisacodyl 10 MG DAILY PRN PRN RECTAL Hydrocodone Bitart/Acetaminophen 1 TAB Q4H PRN P RN PO Hydrocodone Bitart/Acetaminophen 2 TAB Q4H PRN P RN PO Magnesium Hydroxide 30 ML DAILY PRN PRN PO Meperidine HCl 25 MG Q4H PRN PRN IM Naloxone HCl 0.2 MG ASDIR PRN IV Ondansetron HCl 4 MG Q4H PRN PRN IV Physical Exam General appearance: awake, face swollen Head/Eyes: abnormal eyelids, abnormal periorbita l ENT: normal dentition, normal ear left, normal e ar right, normal nose, normal pharynx, normal sinus Neck: full range of motion, non-tender, normal thyroid, supple/no meningismus, no bruit/NL carotids, no JVD, no masses or swell ing Cardiovascular: normal capillary refill, regular rate rhythm Respiratory: aerating well, clear to auscultatio n Abdomen: distended, tenderness, normal bowel yanelis nds Extremities: edema, moves al l, normal capillary refill, crepitus over the chest hand , face Musculoskeletal: normal inspection Neuro/PRODUCTION PLANNER SCHEDULER: alert, oriented X 3 Skin: subq emphysema (face, neck and chest ), dr amy, intact Wound/incision: Site Condition: dressing clean dry, dressing in tact Diagnosis, Assessment Plan Free Text DxA P Notes Free text DxA P notes: Free Text DxA P Notes Free text DxA P notes: Assesment: -RUL nodule/blebs s/p excision -Dyspnea on exertion -Extensive subcutaneous emphysema Plan: -Continue oxygen as needed -cont nebs , pulmicort -Monitor chest tube output; Management per CT barth rgeon -Continue home meds as appropriate -pain control -DVT prophylaxis - SCD 12/02 cont chest tube cont oxygen, nebs management per [facility] ppx: [facility] [place] 12/03 pt is stable, transfer out icu cont chest tube cont cont management 12/04 transferred back to ICU bc of sq emphysema- CV s x following Chest Xray shows worsening s ubcutaneous emphysema otherwise stable appearance of the chest Cont Chest tube Cont current management on clear liquid diet. DVT prophylaxis: [facility] [place] 12/05 -Chest Xray shows worsening subcutaneous emphysema and development of bibasilar atelectasis and questionable small pneumomediast inum. 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 -Encourage IS and ambulation -Granddaughter at bedside -Caseating granuloma/fungal-final pathology-ID c onsulted -Cont Chest tube -Cont current management -DVT prophylasix-lovenox 12/07- cxr same. - pt NPO for possible OR today by dr Rivera - will continue with current supportive care. 12/08- breathing comfortably with mask. able to s it at the edge of the bed. - ct in place. CV surgery following. - will continue with current mx. 12/09 -CT in place continue to monitor -Continue current mx -Continue to ambulate 12/10 -CT in place continue to monitor -Continue current mx -Continue to ambulate 4/2 Pt is in ICU,, sitting up in the chair Continue current rx CT to be taken out per DR rivera Eyes are little better 4/3 pt is doing well, no new changes still w subcutaneous emphysema 4/4 Pt is doing about same, still w crepitus 4/5 Pt was sleeping , sitting up in the john r but says had difficulty in breathing seems swelling slightly better Quality Advanced Care Plan 65 or Older Discussed with: patient Discussion included: code status BMI Screening > 25 or < 18.5 BMI status/follow-up: abnl BMI, pt to F/U w/PCP Tobacco Use/Counseling Tobacco use/counseling: tobacco user HTN Screening/Follow-up B/P assess/follow-up: normal B/P, no f/u req Electronically Signed by Karen Vasquez MD on 02/27 at 1814 RPT #:[id number] END OF REPORT 2018-12-14 10:31:00-00:00 [facility] ([facility]) Cardiovascular Surgery Prog REPORT#:[id number] REPORT STATUS: Signed DATE:12/14/18 TIME: 1031 PATIENT: MOISÉS CANNON UNIT #: [id number] ROOM/BED: [address] : [birth year] AGE: 63 SEX: F ATTEND: Augustus Rivera MD ADM AUTHOR: Oumou Stanley NP * ALL edits or amendments must be made on the Digital [employer] document * General Post-op: day 6 Status post: RIGHT CHEST TUBE INSERTION Subjective Patient reports: Yes: complaints (feeling pressure and tightness) . No: chest pain, incisional pain, nausea, vomiting, pain. Nursing reports: No: complaints. Review of Systems Constitutional: Denies: chills, fatigue, fever, generalized weak ness. Respiratory: Denies: DIAMOND (dyspnea on exertion), SOB, wheezing . Cardiovascular: Denies: chest pain, edema. Objective Physical Exam VS/I O: Last Documented: Result Date Time Pulse Ox 96 12/14 899 B/P 146/87 12/14 0900 B/P Mean 110 12/14 0900 Pulse 97 12/14 0900 Resp 18 12/14 0900 Temp 97.3 12/14 0700 O2 Delivery Nasal cannula 12/14 699 O2 Flow Rate 3.817206 12/14 0700 FiO2 32 / 0656 24 hour I O ending at 0700: 12/14 0700 12/13 1900 Intake Total 1150 700.00 Output Total 60 1561 Balance 1090 -861.00 Intake, IV 200.00 Intake, Oral 1150 500 Number 2 3 Bowel Movements Number Voids 6 Output, Chest 10 10 Tube Drainage Output, Urine 50 1551 Patient 58.967 kg Weight Medications: Active Meds + DC'd Last 24 Hrs Magnesium Sulfate/Dextrose 1 GM ASDIR PRN IV Potassium Chloride 20 MEQ ASDIR PRN IV Fluticasone Propionate 1 SPRAY BID NASAL (CKD) Enoxaparin Sodium 40 MG Q24H SUBQ Ipratropium Freedom 0.5 MG RTQ4H NEB (CKD) Levalbuterol HCl 0.63 MG RTQ4H NEB Atorvastatin Calcium 40 MG BEDTIME PO Citalopram Hydrobromide 20 MG BEDTIME PO Docusate Sodium 100 MG BID PO Metoprolol Tartrate 25 MG BEDTIME PO Pantoprazole 20 MG BEDTIME PO Zolpidem Tartrate 10 MG BEDTIME PO Acetaminophen 650 MG Q4H PRN PRN PO Acetaminophen 650 MG Q4H PRN PRN RECTAL Bisacodyl 5 MG DAILY PRN PRN PO Bisacodyl 10 MG DAILY PRN PRN RECTAL Hydrocodone Bitart/Acetaminophen 1 TAB Q4H PRN P RN PO Hydrocodone Bitart/Acetaminophen 2 TAB Q4H PRN P RN PO Magnesium Hydroxide 30 ML DAILY PRN PRN PO Meperidine HCl 25 MG Q4H PRN PRN IM Naloxone HCl 0.2 MG ASDIR PRN IV Ondansetron HCl 4 MG Q4H PRN PRN IV HEENT: The right eye remains swollen and both eyes open, left eye able to widely open. Neck: tenderness, neck swelling Cardiovascular: ectopy (occational PVCs) , BP/pulses equal bilat., normal heart sounds, regular rate rhythm Respiratory: aerating well, clear to auscultatio n, symmetric expansion, no distress, CT to suction no a ie leak subq emphysema SQ empysema to the chest area slowly improving Abdomen: soft, non-tender, normal bowel sounds Genitourinary: no william Extremities: moves all, BUE swelling-subq emphys candice Neuro/PRODUCTION PLANNER SCHEDULER: alert, oriented X 3 Skin: subq enphysema Results Findings/Data: Laboratory Tests 12/14 12/13 0708 1111 Chemistry Sodium (137 - 145 MMOL/L) 131 L Potassium (3.5 - 5.1 MMOL/L) 3.8 3.7 Chloride (98 - 107 MMOL/L) 98 Carbon Dioxide (22 - 30 MMOL/L) 27 BUN (7 - 17 MG/DL) 7 Creatinine (0.52 - 1.04 MG/DL) 0.50 L Glomerular Filtr Rate > 60 Glucose (74 - 106 MG/DL) 90 Calcium (8.4 - 10.2 MG/DL) 8.6 Magnesium (1.6 - 2.3 MG/DL) 2.0 Laboratory Tests 12/14 0708 Hematology WBC (3.8 - 9.8 K/MM3) 9.8 RBC (3.58 - 4.97 M/MM3) 3.72 Hgb (11.2 - 14.9 G/DL) 10.6 L Hct (33.2 - 43.5 %) 33.2 MCV (80.7 - 99.1 fL) 89 MCH (27.0 - 34.1 pg) 28.5 MCHC (32.2 - 35.7 %) 31.9 L RDW (12.1 - 15.2 %) 14.9 Plt Count (129 - 368 K/MM3) 323 MPV (7.4 - 10.4 fl) 9.3 Neut % (Auto) (43 - 75 %) 71.2 Lymph % (Auto) (14 - 44 %) 14.8 [place] % (Auto) (4 - 13 %) 7.7 Eos % (Auto) (0 - 6 %) 4.6 Baso % (Auto) (0 - 2 %) 0.3 Neut # (Auto) (2.0 - 7.6 K/mm3) 6.99 Lymph # (Auto) (1.0 - 3.8 K/mm3) 1.45 [place] # (Auto) (0.1 - 0.8 K/mm3) 0.76 Eos # (Auto) (0.0 - 0.2 K/mm3) 0.45 H Baso # (Auto) (0.0 - 0.2 K/mm3) 0.03 Immature Gran % (0.0 - 2.0 %) 1.4 Nucleated RBC % (0 - 1.0 %) 0.0 Nucleated RBCs # (Man) (0.0 - 0.1 K/mm3) 0.00 Treatment Prophylaxis Treatment Prophylaxis William documentation: The data below has been impo rted from nursing documentation. Any exceptions have been noted below under Provider comments. _ Nursing Documentation Date william inserted: 11/30/18 Date william discontinued: 12/01/18 _ Provider comments: [] Diagnosis, Assessment Plan Free Text A P: This is a 63 Y/F with right lung nodule S/p Robotic assisted excision of right upper lob e lung nodule and excision of blebs Extensive subq emphysema-s/p CT removal and re-insertion. With some improvement. Bilateral eyes open CT to suction-no air leak today Caseating granuloma/fungal-f inal pathology-no antifungal treatment needed per ID Hypokalemia, hypomagnesemia-resolved Hyponatremia- continue to monitor Check labs in am Encourage IS and ambulation. Plan discussed with: patient, collaborating MD ( Dr. Rivera) at 1405 RPT #:[id number] END OF REPORT 2018-12-14 10:31:00-00:00 [facility] ([facility]) Cardiovascular Surgery Prog REPORT#:[id number] REPORT STATUS: Signed DATE:12/14/18 TIME: 1031 PATIENT: MOISÉS CANNON UNIT #: [id number] ROOM/BED: [address] : [birth year] AGE: 63 SEX: F ATTEND: Augustus Rivera MD ADM AUTHOR: Oumou Stanley NP * ALL edits or amendments must be made on the [employer] document * General Post-op: day 6 Status post: RIGHT CHEST TUBE INSERTION Subjective Patient reports: Yes: complaints (feeling pressure and tightness) . No: chest pain, incisional pain, nausea, vomiting, pain. Nursing reports: No: complaints. Review of Systems Constitutional: Denies: chills, fatigue, fever, generalized weak ness. Respiratory: Denies: DIAMOND (dyspnea on exertion), SOB, wheezing . Cardiovascular: Denies: chest pain, edema. Objective Physical Exam VS/I O: Last Documented: Result Date Time Pulse Ox 96 12/14 0900 B/P 146/87 12/14 0900 B/P Mean 110 12/14 0900 Pulse 97 12/14 0900 Resp 18 12/14 0900 Temp 97.3 12/14 0700 O2 Delivery Nasal cannula 12/14 0700 O2 Flow Rate 3.437733 12/14 0700 FiO2 32 12/14 0656 24 hour I O ending at 0700: 12/14 0700 12/13 1900 Intake Total 1150 700.00 Output Total 60 1561 Balance 1090 -861.00 Intake, IV 200.00 Intake, Oral 1150 500 Number 2 3 Bowel Movements Number Voids 6 Output, Chest 10 10 Tube Drainage Output, Urine 50 1551 Patient 58.967 kg Weight Medications: Active Meds + DC'd Last 24 Hrs Magnesium Sulfate/Dextrose 1 GM ASDIR PRN IV Potassium Chloride 20 MEQ ASDIR PRN IV Fluticasone Propionate 1 SPRAY BID NASAL (CKD) Enoxaparin Sodium 40 MG Q24H SUBQ Ipratropium Freedom 0.5 MG RTQ4H NEB (CKD) Levalbuterol HCl 0.63 MG RTQ4H NEB Atorvastatin Calcium 40 MG BEDTIME PO Citalopram Hydrobromide 20 MG BEDTIME PO Docusate Sodium 100 MG BID PO Metoprolol Tartrate 25 MG BEDTIME PO Pantoprazole 20 MG BEDTIME PO Zolpidem Tartrate 10 MG BEDTIME PO Acetaminophen 650 MG Q4H PRN PRN PO Acetaminophen 650 MG Q4H PRN PRN RECTAL Bisacodyl 5 MG DAILY PRN PRN PO Bisacodyl 10 MG DAILY PRN PRN RECTAL Hydrocodone Bitart/Acetaminophen 1 TAB Q4H PRN P RN PO Hydrocodone Bitart/Acetaminophen 2 TAB Q4H PRN P RN PO Magnesium Hydroxide 30 ML DAILY PRN PRN PO Meperidine HCl 25 MG Q4H PRN PRN IM Naloxone HCl 0.2 MG ASDIR PRN IV Ondansetron HCl 4 MG Q4H PRN PRN IV HEENT: The right eye remains swollen and both eyes open, left eye able to widely open. Neck: tenderness, neck swelling Cardiovascular: ectopy (occational PVCs) , BP/pulses equal bilat., normal heart sounds, regular rate rhythm Respiratory: aerating well, clear to auscultatio n, symmetric expansion, no distress, CT to suction no a ie leak subq emphysema SQ empysema to the chest area slowly improving Abdomen: soft, non-tender, normal bowel sounds Genitourinary: no william Extremities: moves all, BUE swelling-subq emphys candice Neuro/PRODUCTION PLANNER SCHEDULER: alert, oriented X 3 Skin: subq enphysema Results Findings/Data: Laboratory Tests 12/14 12/13 0708 1111 Chemistry Sodium (137 - 145 MMOL/L) 131 L Potassium (3.5 - 5.1 MMOL/L) 3.8 3.7 Chloride (98 - 107 MMOL/L) 98 Carbon Dioxide (22 - 30 MMOL/L) 27 BUN (7 - 17 MG/DL) 7 Creatinine (0.52 - 1.04 MG/DL) 0.50 L Glomerular Filtr Rate > 60 Glucose (74 - 106 MG/DL) 90 Calcium (8.4 - 10.2 MG/DL) 8.6 Magnesium (1.6 - 2.3 MG/DL) 2.0 Laboratory Tests 12/14 0708 Hematology WBC (3.8 - 9.8 K/MM3) 9.8 RBC (3.58 - 4.97 M/MM3) 3.72 Hgb (11.2 - 14.9 G/DL) 10.6 L Hct (33.2 - 43.5 %) 33.2 MCV (80.7 - 99.1 fL) 89 MCH (27.0 - 34.1 pg) 28.5 MCHC (32.2 - 35.7 %) 31.9 L RDW (12.1 - 15.2 %) 14.9 Plt Count (129 - 368 K/MM3) 323 MPV (7.4 - 10.4 fl) 9.3 Neut % (Auto) (43 - 75 %) 71.2 Lymph % (Auto) (14 - 44 %) 14.8 [place] % (Auto) (4 - 13 %) 7.7 Eos % (Auto) (0 - 6 %) 4.6 Baso % (Auto) (0 - 2 %) 0.3 Neut # (Auto) (2.0 - 7.6 K/mm3) 6.99 Lymph # (Auto) (1.0 - 3.8 K/mm3) 1.45 [place] # (Auto) (0.1 - 0.8 K/mm3) 0.76 Eos # (Auto) (0.0 - 0.2 K/mm3) 0.45 H Baso # (Auto) (0.0 - 0.2 K/mm3) 0.03 Immature Gran % (0.0 - 2.0 %) 1.4 Nucleated RBC % (0 - 1.0 %) 0.0 Nucleated RBCs # (Man) (0.0 - 0.1 K/mm3) 0.00 Treatment Prophylaxis Treatment Prophylaxis William documentation: The data below has been impo rted from nursing documentation. Any exceptions have been noted below under Provider comments. _ Nursing Documentation Date nataliia inserted: 11/30/18 Date william discontinued: 12/01/18 _ Provider comments: [] Diagnosis, Assessment Plan Free Text A P: This is a 63 Y/F with right lung nodule S/p Robotic assisted excision of right upper lob e lung nodule and excision of blebs Extensive subq emphysema-s/p CT removal and re-insertion. With some improvement. Bilateral eyes open CT to suction-no air leak today Caseating granuloma/fungal-f inal pathology-no antifungal treatment needed per ID Hypokalemia, hypomagnesemia-resolved Hyponatremia- continue to monitor Check labs in am Encourage IS and ambulation. Plan discussed with: patient, collaborating MD ( Dr. Rivera) at 1405 at 1228 RPT #:[id number] END OF REPORT 2018-12-14 09:54:00-00:00 [id number] [place] [address] PATIENT NAME: MOISÉS CANNON ADMIT JOHNNY E: 11/30/18 ACCOUNT NO: [id number] [facility] AGE[facility] 63 REPORT TYPE: ELECTROCARDIOGRAM SEX: F ADMITTING PHYSICIAN:Karen Vasquez MD ATTENDING PHYSICIAN:Chris Rivera MD Order: [id number] Test Reason : POSSIBLE ARRHYTHMIA Test Date/Time Stamp: MonDec 14 2018 09:54:01 Blood Pressure : / mmHG Vent. Rate : 098 BPM Atrial Rate : 098 BPM P-R Int : 114 ms QRS Dur : 082 ms QT Int : 362 ms P-R-T Axes : 053 031 043 degre es QTc Int : 462 ms Sinus rhythm with frequent premature ventricular complexes Low voltage QRS Borderline ECG When compared with ECG of 09-DEC-2018 05:20, premature ventricular complexes are now present Nonspecific T wave abnormality, improved in Infe rior leads Confirmed by ALEN HANSON ([id number]) on 12/15/2018 7 :10:32 AM Referred By: Chris Rivera Confirmed by:ALEN BRADLEY at 0710 PATIENT NAME: MOISÉS CANNON 2018-12-13 18:49:00-00:00 [facility] ([facility]) Hospitalist Progress Note REPORT#:[id number] REPORT STATUS: Signed DATE:12/13/18 TIME: 1848 PATIENT: MOISÉS CANNON UNIT #: [id number] ROOM/BED: [facility] : 55 AGE: 63 SEX: F ATTEND: Meg Rivera MD ADM AUTHOR: Karen Vasquez MD * ALL edits or amendments must be made on the el [employer]/computer document * Subjective Chief Complaint: No change in condition sitting up in chair swell ing is still persistent but better, Left eye is less swollen today. still w crepitus, CT in place Review of Systems Constitutional: Reports: fatigue, generalized weakness. Denies: fever. Eyes: Reports: swelling. ENT: Denies: sore throat. Respiratory: Reports: SOB. Cardiovascular: Reports: edema. GI: Denies: diarrhea, vomiting. Neuro: Denies: confusion, dizziness. Systems reviewed negative: Allergy/Immun , Constitutional, Endocrine, ENT, Eyes , GI, , Heme, Musculoskeletal, Neuro, Psych, S kin Objective Physical Exam Head/Eyes: abnormal eyelids, abnormal periorbita l ENT: normal dentition, normal ear left, normal e ar right, normal nose, normal pharynx, normal sinus Neck: full range of motion, non-tender, normal thyroid, supple/no meningismus, no bruit/NL carotids, no JVD, no masses or swell ing Cardiovascular: normal capillary refill, regular rate rhythm Respiratory: aerating well, clear to auscultatio n Abdomen: distended, tenderness, normal bowel yanelis nds Extremities: edema, moves all, normal capillary refill Musculoskeletal: normal inspection Neuro/PRODUCTION PLANNER SCHEDULER: alert, oriented X 3 Skin: subq emphysema (face, neck and chest ), dr reyes, intact Wound/incision: Site Condition: dressing clean dry, dressing in tact Diagnosis, Assessment Plan Free Text DxA P Notes Free text DxA P notes: Free Text DxA P Notes Free text DxA P notes: Assesment: -RUL nodule/blebs s/p excision -Dyspnea on exertion -Extensive subcutaneous emphysema Plan: -Continue oxygen as needed -cont nebs , pulmicort -Monitor chest tube output; Management per CT barth rgeon -Continue home meds as appropriate -pain control -DVT prophylaxis - SCD 12/02 cont chest tube cont oxygen, nebs management per [facility] ppx: [facility] 12/03 pt is stable, transfer out icu cont chest tube cont cont management 12/04 transferred back to ICU bc of sq emphysema- CV s x following Chest Xray shows worsening s ubcutaneous emphysema otherwise stable appearance of the chest Cont Chest tube Cont current management on clear liquid diet. DVT prophylaxis: SCD 12/05 -Chest Xray shows worsening subcutaneous emphysema and development of bibasilar atelectasis and questionable small pneumomediast inum. 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 -Encourage IS and ambulation -Granddaughter at bedside -Caseating granuloma/fungal-final pathology-ID c onsulted -Cont Chest tube -Cont current management -DVT prophylasix-lovenox 12/07- cxr same. - pt NPO for possible OR today by dr Rivera - will continue with current supportive care. 12/08- breathing comfortably with mask. able to s it at the edge of the bed. - ct in place. CV surgery following. - will continue with current mx. 12/09 -CT in place continue to monitor -Continue current mx -Continue to ambulate 12/10 -CT in place continue to monitor -Continue current mx -Continue to ambulate / Pt is in ICU,, sitting up in the chair Continue current rx CT to be taken out per DR rivera Eyes are little better 4/3 pt is doing well, no new changes still w subcutaneous emphysema 4/4 Pt is doing about same, still w crepitus Quality Medications Current medication review: I attest that the foregoing medication list in t he medical record is true, accurate, and complete to the best of my knowled ge. Electronically Signed by Karen Vasquez MD on 01/27 at 1857 RPT #:[id number] END OF REPORT 2018-12-13 18:09:00-00:00 [facility] ([facility]) Cardiology Progress Note REPORT#:[id number] REPORT STATUS: Signed DATE:12/13/18 TIME: 180 PATIENT: MOISÉS CANNON UNIT #: [id number] ROOM[address]BED: [address] : [birth year] AGE: 63 SEX: F ATTEND: Augustus Rivera MD ADM AUTHOR: Miguel Chawla MD * ALL edits or amendments must be made on the [employer] document * Subjective Patient reports: No: chest pain, palpitations, shortness of breat h. Objective General VS/I O: 24 hour I O ending at 0700: 12/13 0700 04/ 1900 Intake Total 50 440 Output Total 655 545 Balance -605 -105 Intake, Oral 50 440 Number 1 3 Bowel Movements Number Voids 17 3 Output, Chest 5 25 Tube Drainage Output, Urine 650 520 Vital Signs: Date Time Temp Pulse Resp B/P B/P Pulse O2 O2 F low FiO2 Mean Ox Delivery Rate 12/13 1702 104 133/76 97 97 04/04 1700 22 04/04 1635 96.8 04/04 1627 99 27 140/72 93 99 04/04 1528 24 04/04 1502 92 131/63 90 98 04/04 1413 147/70 100 99 04/04 1400 100 20 04/04 1308 87 17 137/81 101 96 04/04 1205 156/67 97 04/04 1200 96.8 Nasal 2.295735 cannula 04/04 1200 87 24 94 04/04 1137 20 04/04 1103 86 123/74 93 93 04/04 1000 88 23 131/67 91 93 04/04 0903 92 25 107/57 79 93 04/04 0800 85 17 134/75 94 92 04/04 0713 86 17 130/68 91 96 04/04 0700 97.8 04/04 0658 98 Nasal 2.007943 cannula 04/04 0547 79 17 93 04/04 0500 87 20 94 04/04 0400 75 99 04/04 0318 78 17 123/57 79 96 04/04 0221 79 97 04/04 0200 81 124/75 96 96 04/04 0131 136/77 101 04/04 0100 79 144/89 96 04/04 0036 84 18 142/62 89 96 04/04 0000 98.6 04/ 0000 85 97 04/03 2330 97 21 134/79 101 98 04/03 2300 99 134/80 102 94 04/03 0 99 22 134/58 79 96 04/4 105 21 97 04/03 0 103 19 145/67 97 98 /0 106 97 04/ 2100 105 20 141/81 106 96 /1999 107 115/61 82 94 /1950 Nasal 2.627673 cannula 12/12 1950 98.6 107 26 129/80 96 96 Nasal 2.000 000 cannula / 1930 109 20 129/80 100 98 04/1914 97 Nasal 1.844751 26 cannula / 1900 106 20 124/78 94 98 Medications: Active Meds + DC'd Last 24 Hrs Magnesium Sulfate/Dextrose 1 GM ASDIR PRN IV Potassium Chloride 20 MEQ ASDIR PRN IV Fluticasone Propionate 1 SPRAY BID NASAL (CKD) Enoxaparin Sodium 40 MG Q24H SUBQ Ipratropium Freedom 0.5 MG RTQ4H NEB (CKD) Levalbuterol HCl 0.63 MG RTQ4H NEB Atorvastatin Calcium 40 MG BEDTIME PO Citalopram Hydrobromide 20 MG BEDTIME PO Docusate Sodium 100 MG BID PO Metoprolol Tartrate 25 MG BEDTIME PO Pantoprazole 20 MG BEDTIME PO Zolpidem Tartrate 10 MG BEDTIME PO Acetaminophen 650 MG Q4H PRN PRN PO Acetaminophen 650 MG Q4H PRN PRN RECTAL Bisacodyl 5 MG DAILY PRN PRN PO Bisacodyl 10 MG DAILY PRN PRN RECTAL Hydrocodone Bitart/Acetaminophen 1 TAB Q4H PRN P RN PO Hydrocodone Bitart/Acetaminophen 2 TAB Q4H PRN P RN PO Magnesium Hydroxide 30 ML DAILY PRN PRN PO Meperidine HCl 25 MG Q4H PRN PRN IM Naloxone HCl 0.2 MG ASDIR PRN IV Ondansetron HCl 4 MG Q4H PRN PRN IV Status post: Robotic assisted excision of right upper lobe pancho ng nodule. Staple excision of blebs right upper lobe of lung. Physical Exam General appearance: alert, awake, oriented Head/Eyes: atraumatic, Eyelids subcutaneous emph ysema. ENT: moist mucosal membranes Neck: supple/no meningismus, no bruit/NL carotids, no JVD, no masses or swelling Cardiovascular: CV assessment: regular rate and rhythm, BP puls es = bilaterally, normal heart sounds, no murmur Respiratory: decreased breat h sounds, Few crackles. chest tube right side to LWS Abdomen: soft, non-tender, no mass/organ omegaly, no pulsatile mass, no rebound Lower extremity: LE assessment: no edema, 2+ peripheral pulses Musculoskeletal: full range of motion Neuro/PRODUCTION PLANNER SCHEDULER: alert, oriented X 3, CN II-XII intact , no motor deficits Skin: abnormal color (S/Q emphysema) Psychiatry: normal affect, normal judgment/insig ht, normal mood, no hallucinations Results Findings/Data: Laboratory Tests 12/13 12/13 1111 0518 Chemistry Sodium (137 - 145 MMOL/L) 134 L Potassium (3.5 - 5.1 MMOL/L) 3.7 3.4 L Chloride (98 - 107 MMOL/L) 99 Carbon Dioxide (22 - 30 MMOL/L) 28 BUN (7 - 17 MG/DL) 6 L Creatinine (0.52 - 1.04 MG/DL) 0.50 L Glomerular Filtr Rate > 60 Glucose (74 - 106 MG/DL) 99 Calcium (8.4 - 10.2 MG/DL) 8.7 Magnesium (1.6 - 2.3 MG/DL) 1.8 Laboratory Tests 12/13 0518 Hematology WBC (3.8 - 9.8 K/MM3) 9.2 RBC (3.58 - 4.97 M/MM3) 3.69 Hgb (11.2 - 14.9 G/DL) 10.4 L Hct (33.2 - 43.5 %) 33.1 L MCV (80.7 - 99.1 fL) 90 MCH (27.0 - 34.1 pg) 28.2 MCHC (32.2 - 35.7 %) 31.4 L RDW (12.1 - 15.2 %) 15.0 Plt Count (129 - 368 K/MM3) 281 MPV (7.4 - 10.4 fl) 9.7 Neut % (Auto) (43 - 75 %) 71.0 Lymph % (Auto) (14 - 44 %) 16.0 [place] % (Auto) (4 - 13 %) 7.7 Eos % (Auto) (0 - 6 %) 3.5 Baso % (Auto) (0 - 2 %) 0.3 Neut # (Auto) (2.0 - 7.6 K/mm3) 6.52 Lymph # (Auto) (1.0 - 3.8 K/mm3) 1.47 [place] # (Auto) (0.1 - 0.8 K/mm3) 0.71 Eos # (Auto) (0.0 - 0.2 K/mm3) 0.32 H Baso # (Auto) (0.0 - 0.2 K/mm3) 0.03 Immature Gran % (0.0 - 2.0 %) 1.5 Nucleated RBC % (0 - 1.0 %) 0.0 Nucleated RBCs # (Man) (0.0 - 0.1 K/mm3) 0.00 Laboratory Tests 12/13 0518 Chemistry Magnesium (1.6 - 2.3 MG/DL) 1.8 Radiology data: Recent Impressions: RADIOLOGY - XR CHEST 1V 12/13 0544 Report Impression - Status: SIGNED Entered: 12/13/2018 0745 IMPRESSION: Small right pleural effusion and/or atelectasis. Mild left basilar opacities, likely representing atelectasis. Extensive subcutaneous emphysema, unchanged. Impression By: [email or web address] - Pushpa Wagoner MD Diagnosis, Assessment Plan Free Text DxA P Notes Free Text DxA P Notes: IMPRESSION: S/P Robotic assisted excision of right upper lo be lung nodule. Staple excision of blebs right upper lobe of lung. R PTX - subcutaneous emphysema CAD-stable HTN HLP PVC's PAD AAA S/P EVAR COPD RECOMMEND: Continue current medical rx. Ambulate at 1811 RPT #:[id number] END OF REPORT 2018-12-13 10:25:00-00:00 [facility] ([facility]) Cardiovascular Surgery Prog REPORT#:[id number] REPORT STATUS: Signed DATE:12/13/18 TIME: 1025 PATIENT: MOISÉS CANNON UNIT #: [id number] ROOM/BED: [address] : [birth year] AGE: 63 SEX: F ATTEND: Augustus Rivera MD ADM AUTHOR: Oumou Stanley NP * ALL edits or amendments must be made on the Digital [employer]/computer document * General Post-op: day 5 Status post: RIGHT CHEST TUBE INSERTION Subjective Patient reports: No: complaints. Nursing reports: No: complaints. Comments: Seen at bedside, sitting on the chair Has ambulated today. Denies cp or sob Feels that subq air is decreasing. Review of Systems Constitutional: Denies: chills, fatigue, fever, generalized weak ness. Respiratory: Denies: DIAMOND (dyspnea on exertion), SOB. Cardiovascular: Denies: chest pain, DIAMOND (dyspnea on exertion), e cecily, orthopnea. Objective Physical Exam VS/I O: Last Documented: Result Date Time Pulse Ox 93 12/13 1000 B/P 131/67 12/13 1000 B/P Mean 91 12/13 1000 Pulse 88 12/13 1000 Resp 23 12/13 1000 O2 Delivery Nasal cannula 12/13 0720 O2 Flow Rate 2.941676 12/13 0720 Temp 97.8 12/13 0700 FiO2 26 12/12 1915 24 hour I O ending at 0700: 12/13 0700 12/12 1900 Intake Total 50 440 Output Total 655 545 Balance -605 -105 Intake, Oral 50 440 Number 1 3 Bowel Movements Number Voids 17 3 Output, Chest 5 25 Tube Drainage Output, Urine 650 520 Medications: Active Meds + DC'd Last 24 Hrs Magnesium Sulfate/Dextrose 1 GM ASDIR PRN IV Potassium Chloride 20 MEQ ASDIR PRN IV Fluticasone Propionate 1 SPRAY BID NASAL (CKD) Enoxaparin Sodium 40 MG Q24H SUBQ Ipratropium Freedom 0.5 MG RTQ4H NEB (CKD) Levalbuterol HCl 0.63 MG RTQ4H NEB Atorvastatin Calcium 40 MG BEDTIME PO Citalopram Hydrobromide 20 MG BEDTIME PO Docusate Sodium 100 MG BID PO Metoprolol Tartrate 25 MG BEDTIME PO Pantoprazole 20 MG BEDTIME PO Zolpidem Tartrate 10 MG BEDTIME PO Acetaminophen 650 MG Q4H PRN PRN PO Acetaminophen 650 MG Q4H PRN PRN RECTAL Bisacodyl 5 MG DAILY PRN PRN PO Bisacodyl 10 MG DAILY PRN PRN RECTAL Hydrocodone Bitart/Acetaminophen 1 TAB Q4H PRN P RN PO Hydrocodone Bitart/Acetaminophen 2 TAB Q4H PRN P RN PO Magnesium Hydroxide 30 ML DAILY PRN PRN PO Meperidine HCl 25 MG Q4H PRN PRN IM Naloxone HCl 0.2 MG ASDIR PRN IV Ondansetron HCl 4 MG Q4H PRN PRN IV General appearance: alert, awake, oriented, no a cute distress Wound/incision: Location: right thoracotomy, Right chest tube Site condition: dressing clean dry, dressing in tact, no drainage HEENT: The right eye remains swollen and closed. The left eye is open Neck: tenderness, neck swelling Cardiovascular: ectopy (occational PVCs) , BP/pulses equal bilat., normal heart sounds, regular rate rhythm Respiratory: aerating well, clear to auscultatio n, symmetric expansion, no distress, CT to suction no a ie leak subq emphysema SQ empysema to the chest area slowly improving Abdomen: distended (mild), normal bowel sounds Genitourinary: no william Extremities: moves all, BUE swelling-subq emphys candice Neuro/PRODUCTION PLANNER SCHEDULER: alert, oriented X 3 Skin: subq enphysema Results Findings/Data: Laboratory Tests 12/13 517 Chemistry Sodium (137 - 145 MMOL/L) 134 L Potassium (3.5 - 5.1 MMOL/L) 3.4 L Chloride (98 - 107 MMOL/L) 99 Carbon Dioxide (22 - 30 MMOL/L) 28 BUN (7 - 17 MG/DL) 6 L Creatinine (0.52 - 1.04 MG/DL) 0.50 L Glomerular Filtr Rate > 60 Glucose (74 - 106 MG/DL) 99 Calcium (8.4 - 10.2 MG/DL) 8.7 Magnesium (1.6 - 2.3 MG/DL) 1.8 Laboratory Tests 12/13 517 Hematology WBC (3.8 - 9.8 K/MM3) 9.2 RBC (3.58 - 4.97 M/MM3) 3.69 Hgb (11.2 - 14.9 G/DL) 10.4 L Hct (33.2 - 43.5 %) 33.1 L MCV (80.7 - 99.1 fL) 90 MCH (27.0 - 34.1 pg) 28.2 MCHC (32.2 - 35.7 %) 31.4 L RDW (12.1 - 15.2 %) 15.0 Plt Count (129 - 368 K/MM3) 281 MPV (7.4 - 10.4 fl) 9.7 Neut % (Auto) (43 - 75 %) 71.0 Lymph % (Auto) (14 - 44 %) 16.0 [place] % (Auto) (4 - 13 %) 7.7 Eos % (Auto) (0 - 6 %) 3.5 Baso % (Auto) (0 - 2 %) 0.3 Neut # (Auto) (2.0 - 7.6 K/mm3) 6.52 Lymph # (Auto) (1.0 - 3.8 K/mm3) 1.47 [place] # (Auto) (0.1 - 0.8 K/mm3) 0.71 Eos # (Auto) (0.0 - 0.2 K/mm3) 0.32 H Baso # (Auto) (0.0 - 0.2 K/mm3) 0.03 Immature Gran % (0.0 - 2.0 %) 1.5 Nucleated RBC % (0 - 1.0 %) 0.0 Nucleated RBCs # (Man) (0.0 - 0.1 K/mm3) 0.00 Radiology data: Recent Impressions: RADIOLOGY - XR CHEST 1V 12/13 0544 Report Impression - Status: SIGNED Entered: 12/13/2018 0745 IMPRESSION: Small right pleural effusion and/or atelectasis. Mild left basilar opacities, likely representing atelectasis. Extensive subcutaneous emphysema, unchanged. Impression By: [email or web address] - Pushpa Wagoner MD Diagnosis, Assessment Plan Free Text A P: This is a 63 Y/F with right lung nodule S/p Robotic assisted excision of right upper lob e lung nodule and excision of blebs Extensive subq emphysema-s/p CT removal and re-i nsertion CT to suction-no air leak today Caseating granuloma/fungal-f inal pathology-no antifungal treatment needed per ID Hypokalemia, hypomagnesemia-replaced labs in am Encourage IS and ambulation. Orders: Procedure Date/time Status MAGNESIUM 12/14 050 Active CBC W/AUTO DIFF 12/14 499 Active BASIC METABOLIC PANEL 04/05 0500 Active Plan discussed with: patient, collaborating MD ( Dr. Rivera) at 1045 RPT #:[id number] END OF REPORT 2018-12-13 10:25:00-00:00 [facility] ([facility]) Cardiovascular Surgery Prog REPORT#:[id number] REPORT STATUS: Signed DATE:12/13/18 TIME: 1025 PATIENT: MOISÉS CANNON UNIT #: [id number] ROOM/BED: [address] : [birth year] AGE: 63 SEX: F ATTEND: Meg Rivera MD ADM AUTHOR: Oumou Stanley NP * ALL edits or amendments must be made on the Digital [employer]/computer document * General Post-op: day 5 Status post: RIGHT CHEST TUBE INSERTION Subjective Patient reports: No: complaints. Nursing reports: No: complaints. Comments: Seen at bedside, sitting on the chair Has ambulated today. Denies cp or sob Feels that subq air is decreasing. Review of Systems Constitutional: Denies: chills, fatigue, fever, generalized weak ness. Respiratory: Denies: DIAMOND (dyspnea on exertion), SOB. Cardiovascular: Denies: chest pain, DIAMOND (dyspnea on exertion), e cecily, orthopnea. Objective Physical Exam VS/I O: Last Documented: Result Date Time Pulse Ox 93 12/13 1000 B/P 131/67 12/13 1000 B/P Mean 91 12/13 1000 Pulse 88 12/13 1000 Resp 23 12/13 1000 O2 Delivery Nasal cannula 12/13 0720 O2 Flow Rate 2.846105 12/13 0720 Temp 97.8 12/13 0700 FiO2 26 12/12 1915 24 hour I O ending at 0700: 12/13 0700 12/12 1900 Intake Total 50 440 Output Total 655 545 Balance -605 -105 Intake, Oral 50 440 Number 1 3 Bowel Movements Number Voids 17 3 Output, Chest 5 25 Tube Drainage Output, Urine 650 520 Medications: Active Meds + DC'd Last 24 Hrs Magnesium Sulfate/Dextrose 1 GM ASDIR PRN IV Potassium Chloride 20 MEQ ASDIR PRN IV Fluticasone Propionate 1 SPRAY BID NASAL (CKD) Enoxaparin Sodium 40 MG Q24H SUBQ Ipratropium Freedom 0.5 MG RTQ4H NEB (CKD) Levalbuterol HCl 0.63 MG RTQ4H NEB Atorvastatin Calcium 40 MG BEDTIME PO Citalopram Hydrobromide 20 MG BEDTIME PO Docusate Sodium 100 MG BID PO Metoprolol Tartrate 25 MG BEDTIME PO Pantoprazole 20 MG BEDTIME PO Zolpidem Tartrate 10 MG BEDTIME PO Acetaminophen 650 MG Q4H PRN PRN PO Acetaminophen 650 MG Q4H PRN PRN RECTAL Bisacodyl 5 MG DAILY PRN PRN PO Bisacodyl 10 MG DAILY PRN PRN RECTAL Hydrocodone Bitart/Acetaminophen 1 TAB Q4H PRN P RN PO Hydrocodone Bitart/Acetaminophen 2 TAB Q4H PRN P RN PO Magnesium Hydroxide 30 ML DAILY PRN PRN PO Meperidine HCl 25 MG Q4H PRN PRN IM Naloxone HCl 0.2 MG ASDIR PRN IV Ondansetron HCl 4 MG Q4H PRN PRN IV General appearance: alert, awake, oriented, no a cute distress Wound/incision: Location: right thoracotomy, Right chest tube Site condition: dressing clean dry, dressing in tact, no drainage HEENT: The right eye remains swollen and closed. The left eye is open Neck: tenderness, neck swelling Cardiovascular: ectopy (occational PVCs) , BP/pulses equal bilat., normal heart sounds, regular rate rhythm Respiratory: aerating well, clear to auscultatio n, symmetric expansion, no distress, CT to suction no a ie leak subq emphysema SQ empysema to the chest area slowly improving Abdomen: distended (mild), normal bowel sounds Genitourinary: no william Extremities: moves all, BUE swelling-subq emphys candice Neuro/PRODUCTION PLANNER SCHEDULER: alert, oriented X 3 Skin: subq enphysema Results Findings/Data: Laboratory Tests 12/13 517 Chemistry Sodium (137 - 145 MMOL/L) 134 L Potassium (3.5 - 5.1 MMOL/L) 3.4 L Chloride (98 - 107 MMOL/L) 99 Carbon Dioxide (22 - 30 MMOL/L) 28 BUN (7 - 17 MG/DL) 6 L Creatinine (0.52 - 1.04 MG/DL) 0.50 L Glomerular Filtr Rate > 60 Glucose (74 - 106 MG/DL) 99 Calcium (8.4 - 10.2 MG/DL) 8.7 Magnesium (1.6 - 2.3 MG/DL) 1.8 Laboratory Tests 12/13 0518 Hematology WBC (3.8 - 9.8 K/MM3) 9.2 RBC (3.58 - 4.97 M/MM3) 3.69 Hgb (11.2 - 14.9 G/DL) 10.4 L Hct (33.2 - 43.5 %) 33.1 L MCV (80.7 - 99.1 fL) 90 MCH (27.0 - 34.1 pg) 28.2 MCHC (32.2 - 35.7 %) 31.4 L RDW (12.1 - 15.2 %) 15.0 Plt Count (129 - 368 K/MM3) 281 MPV (7.4 - 10.4 fl) 9.7 Neut % (Auto) (43 - 75 %) 71.0 Lymph % (Auto) (14 - 44 %) 16.0 [place] % (Auto) (4 - 13 %) 7.7 Eos % (Auto) (0 - 6 %) 3.5 Baso % (Auto) (0 - 2 %) 0.3 Neut # (Auto) (2.0 - 7.6 K/mm3) 6.52 Lymph # (Auto) (1.0 - 3.8 K/mm3) 1.47 [place] # (Auto) (0.1 - 0.8 K/mm3) 0.71 Eos # (Auto) (0.0 - 0.2 K/mm3) 0.32 H Baso # (Auto) (0.0 - 0.2 K/mm3) 0.03 Immature Gran % (0.0 - 2.0 %) 1.5 Nucleated RBC % (0 - 1.0 %) 0.0 Nucleated RBCs # (Man) (0.0 - 0.1 K/mm3) 0.00 Radiology data: Recent Impressions: RADIOLOGY - XR CHEST 1V 12/13 0544 Report Impression - Status: SIGNED Entered: 12/13/2018 9845 IMPRESSION: Small right pleural effusion and/or atelectasis. Mild left basilar opacities, likely representing atelectasis. Extensive subcutaneous emphysema, unchanged. Impression By: [email or web address] - Pushpa Wagoner MD Diagnosis, Assessment Plan Free Text A P: This is a 63 Y/F with right lung nodule S/p Robotic assisted excision of right upper lob e lung nodule and excision of blebs Extensive subq emphysema-s/p CT removal and re-i nsertion CT to suction-no air leak today Caseating granuloma/fungal-f inal pathology-no antifungal treatment needed per ID Hypokalemia, hypomagnesemia-replaced labs in am Encourage IS and ambulation. Orders: Procedure Date/time Status MAGNESIUM 12/14 499 Active CBC W/AUTO DIFF 12/14 499 Active BASIC METABOLIC PANEL 12/14 499 Active Plan discussed with: patient, collaborating MD ( Dr. Rivera) at 1045 at 1237 RPT #:[id number] END OF REPORT 2018-12-12 20:38:00-00:00 [facility] ([facility]) Hospitalist Progress Note REPORT#:[id number] REPORT STATUS: Signed DATE:12/12/18 TIME: 2037 PATIENT: MOISÉS CANNON UNIT #: [id number] ROOM/BED: [address] : 55 AGE: 63 SEX: F ATTEND: Augustus Rivera MD ADM AUTHOR: Karen Vasquez MD * ALL edits or amendments must be made on the Digital [employer] document * Subjective Chief Complaint: No change in condition sitting up in chair swell ing is still persistent but better, Left eye is less swollen today. still w crepitus, CT in place Review of Systems Constitutional: Reports: fatigue, generalized weakness. Denies: fever. Eyes: Reports: swelling. ENT: Denies: sore throat. Respiratory: Reports: SOB. Cardiovascular: Reports: edema. GI: Denies: diarrhea, vomiting. Neuro: Denies: confusion, dizziness. Systems reviewed negative: Allergy/Immun , Constitutional, Endocrine, ENT, Eyes , GI, , Heme, Musculoskeletal, Neuro, Psych, S kin Objective General VS/I O: Vital Signs: Date Time Temp Pulse Resp B/P B/P Pulse O2 O2 F low FiO2 Mean Ox Delivery Rate 12/12 1950 Nasal 2.875087 cannula /1950 98.6 107 26 129/80 96 96 Nasal 2.000 000 cannula 04/03 1915 97 Nasal 1.694742 26 cannula 04/03 1805 93 04/03 1800 137/67 04/03 1730 103 30 134/84 79 04/03 1700 104 33 117/57 93 04/03 1630 104 34 123/74 92 04/03 1626 97.9 04/03 1600 108 39 122/67 93 04/03 1537 111 20 118/57 94 04/03 1500 109 25 122/74 94 04/03 1430 104 24 137/76 93 04/03 1400 108 33 126/80 94 04/03 1358 109 37 127/81 94 04/03 1256 104 19 117/66 95 04/03 1253 106 21 96 04/03 1120 97.4 04/03 1100 27 92 04/03 1052 96 113/66 04/03 0842 95 04/03 0814 104 125/93 04/03 0800 25 04/03 0745 Nasal 1.896777 cannula 04/03 0715 97.4 04/03 0713 84 21 135/72 100 04/03 0705 95 Nasal 1.911153 26 cannula 04/03 0613 83 23 123/75 91 92 04/03 0513 82 29 120/70 88 93 04/03 0413 83 39 156/68 98 92 04/03 0400 97.5 04/03 0327 87 39 150/63 90 92 04/03 0213 84 28 112/57 77 98 04/03 0113 95 35 111/56 76 04/03 0100 92 04/03 0013 92 34 115/57 82 94 04/03 0001 84 19 103/47 68 95 04/03 0000 97.5 04/03 0000 95 04/02 2300 93 04/02 2213 94 25 119/62 84 04/02 2200 95 04/02 2113 106 30 147/65 94 95 24 hour I O ending at 0700: 04/03 0700 04/02 1900 Intake Total 300 300 Output Total 650 890 Balance -350 -590 Intake, Oral 300 300 Number 1 Bowel Movements Number Voids 5 7 Output, Chest 0 Tube Drainage Output, Urine 650 890 Medications: Documentation of Current Medications in the [facility] Record : I attest that the foregoing medication list in [facility] medical record is true, accurate, and complete to the best of my knowled ge. Active Meds + DC'd Last 24 Hrs Fluticasone Propionate 1 SPRAY BID NASAL (CKD) Enoxaparin Sodium 40 MG Q24H SUBQ Ipratropium Freedom 0.5 MG RTQ4H NEB (CKD) Levalbuterol HCl 0.63 MG RTQ4H NEB Atorvastatin Calcium 40 MG BEDTIME PO Citalopram Hydrobromide 20 MG BEDTIME PO Docusate Sodium 100 MG BID PO Metoprolol Tartrate 25 MG BEDTIME PO Pantoprazole 20 MG BEDTIME PO Zolpidem Tartrate 10 MG BEDTIME PO Acetaminophen 650 MG Q4H PRN PRN PO Acetaminophen 650 MG Q4H PRN PRN RECTAL Bisacodyl 5 MG DAILY PRN PRN PO Bisacodyl 10 MG DAILY PRN PRN RECTAL Hydrocodone Bitart/Acetaminophen 1 TAB Q4H PRN P RN PO Hydrocodone Bitart/Acetaminophen 2 TAB Q4H PRN P RN PO Magnesium Hydroxide 30 ML DAILY PRN PRN PO Meperidine HCl 25 MG Q4H PRN PRN IM Naloxone HCl 0.2 MG ASDIR PRN IV Ondansetron HCl 4 MG Q4H PRN PRN IV Physical Exam General appearance: alert, awake, oriented, face swollen Head/Eyes: abnormal eyelids, abnormal periorbita l ENT: normal dentition, normal ear left, normal e ar right, normal nose, normal pharynx, normal sinus Neck: full range of motion, non-tender, normal thyroid, supple/no meningismus, no bruit/NL carotids, no JVD, no masses or swell ing Cardiovascular: normal capillary refill, regular rate rhythm Respiratory: aerating well, clear to auscultatio n Abdomen: distended, tenderness, normal bowel yanelis nds Extremities: edema, moves all, normal capillary refill Musculoskeletal: normal inspection Neuro/PRODUCTION PLANNER SCHEDULER: alert, oriented X 3 Skin: subq emphysema (face, neck and chest ), dr y, intact Wound/incision: Site Condition: dressing clean dry, dressing in tact Results Radiology data: Recent Impressions: RADIOLOGY - XR CHEST 1V 12/12 0545 Report Impression - Status: SIGNED Entered: 12/12/2018 0841 IMPRESSION: No identifiable pneumothorax. Slight ly limited study. Right chest tube, stable. Similar appearance to subcutaneous emphysema. Location: U19 Impression By: Ayleen - Chris Ortiz MD Diagnosis, Assessment Plan Free Text DxA P Notes Free text DxA P notes: Assesment: -RUL nodule/blebs s/p excision -Dyspnea on exertion -Extensive subcutaneous emphysema Plan: -Continue oxygen as needed -cont nebs , pulmicort -Monitor chest tube output; Management per CT barth rgeon -Continue home meds as appropriate -pain control -DVT prophylaxis - [facility] 12/02 cont chest tube cont oxygen, nebs management per [facility] dvt ppx: [facility] [place] 12/03 pt is stable, transfer out icu cont chest tube cont cont management 12/04 transferred back to ICU bc of sq emphysema- CV s x following Chest Xray shows worsening s ubcutaneous emphysema otherwise stable appearance of the chest Cont Chest tube Cont current management on clear liquid diet. DVT prophylaxis: [facility] 12/05 -Chest Xray shows worsening subcutaneous emphysema and development of bibasilar atelectasis and questionable small pneumomediast inum. 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 -Encourage IS and ambulation -Granddaughter at bedside -Caseating granuloma/fungal-final pathology-ID c onsulted -Cont Chest tube -Cont current management -DVT prophylasix-lovenox 12/07- cxr same. - pt NPO for possible OR today by dr Rivera - will continue with current supportive care. 12/08- breathing comfortably with mask. able to s it at the edge of the bed. - ct in place. CV surgery following. - will continue with current mx. 12/09 -CT in place continue to monitor -Continue current mx -Continue to ambulate 12/10 -CT in place continue to monitor -Continue current mx -Continue to ambulate / Pt is in ICU,, sitting up in the chair Continue current rx CT to be taken out per DR rivera Eyes are little better 4/3 pt is doing well, no new changes still w subcutaneous emphysema Quality Medications Current medication review: I attest that the foregoing medication list in t he medical record is true, accurate, and complete to the best of my knowled ge. Advanced Care Plan 65 or Older Discussed with: patient Discussion included: code status BMI Screening > 25 or < 18.5 BMI status/follow-up: abnl BMI, pt to F/U w/PCP Tobacco Use/Counseling Tobacco use/counseling: tobacco user HTN Screening/Follow-up B/P assess/follow-up: normal B/P, no f/u req Electronically Signed by Karen Vasquez MD on 11/27 at 2041 RPT #:[id number] END OF REPORT 2018-12-12 19:40:00-00:00 [facility] ([facility]) Cardiovascular Surgery Prog REPORT#:[id number] REPORT STATUS: Signed DATE:12/12/18 TIME: 1939 PATIENT: MOISÉS CANNON UNIT #: [id number] ROOM/BED: [address] : 55 AGE: 63 SEX: F ATTEND: Augustus Rivera MD ADM AUTHOR: Mickie Coats * ALL edits or amendments must be made on the Digital [employer]/computer document * General Post-op: day 4 Status post: RIGHT CHEST TUBE INSERTION Subjective Patient reports: Yes: complaints. Nursing reports: No: complaints. Comments: Pt. seen OOB- Chair, her SQ empysema continues to slowly improve. Pt. is asking if she is going to . I re assured her and her sister that she was not going to . She denies having any CP or SOB. There is n o airleak in the chest tube Review of Systems Constitutional: Denies: chills, fatigue, fever, generalized weak ness. Eyes: Denies: other (her right eye remains closed.). Respiratory: Denies: DIAMOND (dyspnea on exertion), productive co ugh (sputum), SOB. Cardiovascular: Denies: chest pain, DIAMOND (dyspnea on exertion). Objective Physical Exam VS/I O: Last Documented: Result Date Time Pulse Ox 97 12/12 1914 FiO2 26 12/12 1914 O2 Delivery Nasal cannula 12/12 1914 O2 Flow Rate 1.561914 12/12 1914 B/P 137/67 12/12 1800 Pulse 103 12/12 1730 Resp 30 12/12 1730 Temp 36.6 12/12 1626 B/P Mean 91 12/12 0613 24 hour I O ending at 0700: 12/12 0700 12/11 1900 Intake Total 300 300 Output Total 650 890 Balance -350 -590 Intake, Oral 300 300 Number 1 Bowel Movements Number Voids 5 7 Output, Chest 0 Tube Drainage Output, Urine 650 890 Medications: Active Meds + DC'd Last 24 Hrs Fluticasone Propionate 1 SPRAY BID NASAL (CKD) Enoxaparin Sodium 40 MG Q24H SUBQ Ipratropium Freedom 0.5 MG RTQ4H NEB (CKD) Levalbuterol HCl 0.63 MG RTQ4H NEB Atorvastatin Calcium 40 MG BEDTIME PO Citalopram Hydrobromide 20 MG BEDTIME PO Docusate Sodium 100 MG BID PO Metoprolol Tartrate 25 MG BEDTIME PO Pantoprazole 20 MG BEDTIME PO Zolpidem Tartrate 10 MG BEDTIME PO Acetaminophen 650 MG Q4H PRN PRN PO Acetaminophen 650 MG Q4H PRN PRN RECTAL Bisacodyl 5 MG DAILY PRN PRN PO Bisacodyl 10 MG DAILY PRN PRN RECTAL Hydrocodone Bitart/Acetaminophen 1 TAB Q4H PRN P RN PO Hydrocodone Bitart/Acetaminophen 2 TAB Q4H PRN P RN PO Magnesium Hydroxide 30 ML DAILY PRN PRN PO Meperidine HCl 25 MG Q4H PRN PRN IM Naloxone HCl 0.2 MG ASDIR PRN IV Ondansetron HCl 4 MG Q4H PRN PRN IV General appearance: alert, awake, oriented, no a cute distress Wound/incision: Location: Robotic assisted right chest wounds Site condition: dressing clean dry, dressing in tact, no drainage, no erythema HEENT: The right eye remains swollen and closed. The left eye is open Neck: tenderness, neck swelling Cardiovascular: ectopy (occational PVCs) , BP/pulses equal bilat., normal heart sounds, regular rate rhythm Respiratory: aerating well, clear to auscultatio n, symmetric expansion, no distress, CT to suction no aie leak subq emphyse ma, SQ empysema to the chest area slowly improving Abdomen: distended (mild), tenderness, normal priscilla wel sounds Genitourinary: no william Extremities: moves all, BUE swelling-subq emphys candice Neuro/PRODUCTION PLANNER SCHEDULER: alert, oriented X 3 Skin: subq enphysema Results Findings/Data: Laboratory Tests 12/13 511 Chemistry Sodium (137 - 145 MMOL/L) 134 L Potassium (3.5 - 5.1 MMOL/L) 3.5 Chloride (98 - 107 MMOL/L) 99 Carbon Dioxide (22 - 30 MMOL/L) 31 H BUN (7 - 17 MG/DL) 8 Creatinine (0.52 - 1.04 MG/DL) 0.50 L Glomerular Filtr Rate > 60 Glucose (74 - 106 MG/DL) 99 Calcium (8.4 - 10.2 MG/DL) 8.7 Magnesium (1.6 - 2.3 MG/DL) 1.9 Laboratory Tests 12/13 511 Hematology WBC (3.8 - 9.8 K/MM3) 7.7 RBC (3.58 - 4.97 M/MM3) 3.72 Hgb (11.2 - 14.9 G/DL) 10.5 L Hct (33.2 - 43.5 %) 33.1 L MCV (80.7 - 99.1 fL) 89 MCH (27.0 - 34.1 pg) 28.2 MCHC (32.2 - 35.7 %) 31.7 L RDW (12.1 - 15.2 %) 14.8 Plt Count (129 - 368 K/MM3) 305 MPV (7.4 - 10.4 fl) 9.8 Neut % (Auto) (43 - 75 %) 71.5 Lymph % (Auto) (14 - 44 %) 16.6 [place] % (Auto) (4 - 13 %) 8.0 Eos % (Auto) (0 - 6 %) 2.6 Baso % (Auto) (0 - 2 %) 0.3 Neut # (Auto) (2.0 - 7.6 K/mm3) 5.51 Lymph # (Auto) (1.0 - 3.8 K/mm3) 1.28 [place] # (Auto) (0.1 - 0.8 K/mm3) 0.62 Eos # (Auto) (0.0 - 0.2 K/mm3) 0.20 Baso # (Auto) (0.0 - 0.2 K/mm3) 0.02 Immature Gran % (0.0 - 2.0 %) 1.0 Nucleated RBC % (0 - 1.0 %) 0.0 Nucleated RBCs # (Man) (0.0 - 0.1 K/mm3) 0.00 Radiology data: Recent Impressions: RADIOLOGY - XR CHEST 1V 12/12 0445 Report Impression - Status: SIGNED Entered: 12/12/2018840 IMPRESSION: No identifiable pneumothorax. Slight ly limited study. Right chest tube, stable. Similar appearance to subcutaneous emphysema. Location: U19 Impression By: Ayleen - Chris Ortiz MD Diagnosis, Assessment Plan Free Text A P: This is a 63 Y/F with right lung nodule S/p Robotic assisted excision of right upper lob e lung nodule and excision of blebs Extensive subq emphysema-s/p CT removal and re-i nsertion CT to suction-no air leak today Caseating granuloma/fungal-f inal pathology-no antifungal treatment needed per ID Encourage IS and ambulation I had a long discussion with the pt. and her sis ter that we will continue to monitor her closely. We are patiently waiting for the SQ emphysema to resolve. I reassured the pt. and her sister that she is not going to . Once the SQ empysema resolves we will remove the chest tube and dischage her home. at 1952 RPT #:[id number] END OF REPORT 2018-12-12 19:40:00-00:00 [facility] ([facility]) Cardiovascular Surgery Prog REPORT#:[id number] REPORT STATUS: Signed DATE:12/12/18 TIME: 1939 PATIENT: MOISÉS CANNON UNIT #: [id number] ROOM/BED: [address] : [birth year] AGE: 63 SEX: F ATTEND: Augustus Rivera MD ADM AUTHOR: Mickie Coats * ALL edits or amendments must be made on the el [employer]/computer document * General Post-op: day 4 Status post: RIGHT CHEST TUBE INSERTION Subjective Patient reports: Yes: complaints. Nursing reports: No: complaints. Comments: Pt. seen OOB- Chair, her SQ empysema continues to slowly improve. Pt. is asking if she is going to . I re assured her and her sister that she was not going to . She denies having any CP or SOB. There is n o airleak in the chest tube Review of Systems Constitutional: Denies: chills, fatigue, fever, generalized weak ness. Eyes: Denies: other (her right eye remains closed.). Respiratory: Denies: DIAMOND (dyspnea on exertion), productive co ugh (sputum), SOB. Cardiovascular: Denies: chest pain, DIAMOND (dyspnea on exertion). Objective Physical Exam VS/I O: Last Documented: Result Date Time Pulse Ox 97 12/12 1914 FiO2 26 12/12 1914 O2 Delivery Nasal cannula 12/12 1914 O2 Flow Rate 1.109920 12/12 191 B/P 137/67 12/12 1800 Pulse 103 12/12 1730 Resp 30 12/12 1730 Temp 36.6 12/12 1626 B/P Mean 91 12/12 0613 24 hour I O ending at 0700: 12/12 0700 12/11 1900 Intake Total 300 300 Output Total 650 890 Balance -350 -590 Intake, Oral 300 300 Number 1 Bowel Movements Number Voids 5 7 Output, Chest 0 Tube Drainage Output, Urine 650 890 Medications: Active Meds + DC'd Last 24 Hrs Fluticasone Propionate 1 SPRAY BID NASAL (CKD) Enoxaparin Sodium 40 MG Q24H SUBQ Ipratropium Freedom 0.5 MG RTQ4H NEB (CKD) Levalbuterol HCl 0.63 MG RTQ4H NEB Atorvastatin Calcium 40 MG BEDTIME PO Citalopram Hydrobromide 20 MG BEDTIME PO Docusate Sodium 100 MG BID PO Metoprolol Tartrate 25 MG BEDTIME PO Pantoprazole 20 MG BEDTIME PO Zolpidem Tartrate 10 MG BEDTIME PO Acetaminophen 650 MG Q4H PRN PRN PO Acetaminophen 650 MG Q4H PRN PRN RECTAL Bisacodyl 5 MG DAILY PRN PRN PO Bisacodyl 10 MG DAILY PRN PRN RECTAL Hydrocodone Bitart/Acetaminophen 1 TAB Q4H PRN P RN PO Hydrocodone Bitart/Acetaminophen 2 TAB Q4H PRN P RN PO Magnesium Hydroxide 30 ML DAILY PRN PRN PO Meperidine HCl 25 MG Q4H PRN PRN IM Naloxone HCl 0.2 MG ASDIR PRN IV Ondansetron HCl 4 MG Q4H PRN PRN IV General appearance: alert, awake, oriented, no a cute distress Wound/incision: Location: Robotic assisted right chest wounds Site condition: dressing clean dry, dressing in tact, no drainage, no erythema HEENT: The right eye remains swollen and closed. The left eye is open Neck: tenderness, neck swelling Cardiovascular: ectopy (occational PVCs) , BP/pulses equal bilat., normal heart sounds, regular rate rhythm Respiratory: aerating well, clear to auscultatio n, symmetric expansion, no distress, CT to suction no aie leak subq emphyse ma, SQ empysema to the chest area slowly improving Abdomen: distended (mild), tenderness, normal priscilla wel sounds Genitourinary: no william Extremities: moves all, BUE swelling-subq emphys candice Neuro/PRODUCTION PLANNER SCHEDULER: alert, oriented X 3 Skin: subq enphysema Results Findings/Data: Laboratory Tests 12/13 511 Chemistry Sodium (137 - 145 MMOL/L) 134 L Potassium (3.5 - 5.1 MMOL/L) 3.5 Chloride (98 - 107 MMOL/L) 99 Carbon Dioxide (22 - 30 MMOL/L) 31 H BUN (7 - 17 MG/DL) 8 Creatinine (0.52 - 1.04 MG/DL) 0.50 L Glomerular Filtr Rate > 60 Glucose (74 - 106 MG/DL) 99 Calcium (8.4 - 10.2 MG/DL) 8.7 Magnesium (1.6 - 2.3 MG/DL) 1.9 Laboratory Tests 12/13 511 Hematology WBC (3.8 - 9.8 K/MM3) 7.7 RBC (3.58 - 4.97 M/MM3) 3.72 Hgb (11.2 - 14.9 G/DL) 10.5 L Hct (33.2 - 43.5 %) 33.1 L MCV (80.7 - 99.1 fL) 89 MCH (27.0 - 34.1 pg) 28.2 MCHC (32.2 - 35.7 %) 31.7 L RDW (12.1 - 15.2 %) 14.8 Plt Count (129 - 368 K/MM3) 305 MPV (7.4 - 10.4 fl) 9.8 Neut % (Auto) (43 - 75 %) 71.5 Lymph % (Auto) (14 - 44 %) 16.6 [place] % (Auto) (4 - 13 %) 8.0 Eos % (Auto) (0 - 6 %) 2.6 Baso % (Auto) (0 - 2 %) 0.3 Neut # (Auto) (2.0 - 7.6 K/mm3) 5.51 Lymph # (Auto) (1.0 - 3.8 K/mm3) 1.28 [place] # (Auto) (0.1 - 0.8 K/mm3) 0.62 Eos # (Auto) (0.0 - 0.2 K/mm3) 0.20 Baso # (Auto) (0.0 - 0.2 K/mm3) 0.02 Immature Gran % (0.0 - 2.0 %) 1.0 Nucleated RBC % (0 - 1.0 %) 0.0 Nucleated RBCs # (Man) (0.0 - 0.1 K/mm3) 0.00 Radiology data: Recent Impressions: RADIOLOGY - XR CHEST 1V 12/12 0545 Report Impression - Status: SIGNED Entered: 12/12/2018 0841 IMPRESSION: No identifiable pneumothorax. Slight ly limited study. Right chest tube, stable. Similar appearance to subcutaneous emphysema. Location: U19 Impression By: Ayleen - Chris Ortiz MD Diagnosis, Assessment Plan Free Text A P: This is a 63 Y/F with right lung nodule S/p Robotic assisted excision of right upper lob e lung nodule and excision of blebs Extensive subq emphysema-s/p CT removal and re-i nsertion CT to suction-no air leak today Caseating granuloma/fungal-f inal pathology-no antifungal treatment needed per ID Encourage IS and ambulation I had a long discussion with the pt. and her sis ter that we will continue to monitor her closely. We are patiently waiting for the SQ emphysema to resolve. I reassured the pt. and her sister that she is not going to . Once the SQ empysema resolves we will remove the chest tube and dischage her home. at 1952 at 1237 RPT #:[id number] END OF REPORT 2018-12-12 18:38:00-00:00 [facility] ([facility]) Infectious Dis. Progress Note REPORT#:[id number] REPORT STATUS: Signed DATE:12/12/18 TIME: 1837 PATIENT: MOISÉS CANNON UNIT #: [id number] ROOM/BED: [address] : [birth year] AGE: 63 SEX: F ATTEND: Augustus Rivera MD ADM AUTHOR: Eric Yu MD * ALL edits or amendments must be made on the [employer]/computer document * Subjective Chief Complaint: 63F Hyperlipidemia.Hypertension. Chronic obstructive pulmonary disease. Coronary artery disease.Jennifer pheral vascular disease. Abdominal aortic aneurysm. s/p Right upper lobectomy. Abdominal aortic aneurysm repair. Back surgery. Patient reports: Yes: complaints (dec facial swelling), feeling better, shortness of breath (dec) . No: cough, fever, nausea, pain controlled, vom iting. Nursing reports: No: cough, diarrhea. Objective General VS/I O: Last Documented: Result Date Time Pulse Ox 93 / 1805 B/P 137/67 12/12 1800 Pulse 103 / 1730 Resp 30 12/12 1730 Temp 97.9 12/12 1626 O2 Delivery Nasal cannula 12/12 0745 O2 Flow Rate 1.970716 12/12 0745 FiO2 26 12/12 0705 B/P Mean 91 12/12 0613 Vital Signs Date Temp Pulse Resp B/P B/P Mean Pulse Ox FiO2 /-12/12 97.4-97.9 82-111 19-39 103-156/47-93 68-98 79-100 26-28 24 hour I O ending at 0700: 12/12 0700 12/11 1900 Intake Total 300 300 Output Total 650 890 Balance -350 -590 Intake, Oral 300 300 Number 1 Bowel Movements Number Voids 5 7 Output, Chest 0 Tube Drainage Output, Urine 650 890 Physical Exam General appearance: chronically ill appearing, o bese, respiratory support, responsiveness, alert, oriented, no acute distre ss, subctaneous emphysema ENT: moist mucosal membranes Neck: non-tender, crepitus Cardiovascular: regular rate rhythm Respiratory: symmetric expansion, no distress Abdomen: non-tender, soft, no distention Extremities: moves all, no clubbing, no cyanosis , no edema Skin: no rash Results Findings/Data: Current Medications Sig/Rimma Start time Last Medication Dose Route Stop Time Status Admin Fluticasone 1 SPRAY BID 12/11 1130 CKD 12/12 Propionate NASAL 01/10 1131 0841 Enoxaparin Sodium 40 MG Q24H 12/10 1730 AC 3 SUBQ 01/09 1731 1700 Ipratropium Freedom 0.5 MG RTQ4H 12/08 1100 CKD 12/12 NEB 01/07 1101 1430 Levalbuterol HCl 0.63 MG RTQ4H 12/08 1100 AC NEB 01/07 1101 1430 Atorvastatin Calcium 40 MG BEDTIME 11/30 2100 A C 12/11 PO 12/30 Citalopram 20 MG BEDTIME 11/30 2099 AC 12/11 Hydrobromide PO 12/30 2100 203 Docusate Sodium 100 MG BID 11/30 2100 AC 12/12 PO 12/30 2100 0840 Metoprolol Tartrate 25 MG BEDTIME 11/30 2100 AC 12/11 PO 12/30 Pantoprazole 20 MG BEDTIME 11/30 2099 AC 12/11 PO 12/30 Zolpidem Tartrate 10 MG BEDTIME 11/30 2100 AC 0 12/06 PO 12/30 2100 0037 Acetaminophen 650 MG Q4H PRN PRN 11/30 1909 AC PO 12/30 1910 Acetaminophen 650 MG Q4H PRN PRN 11/30 1909 AC RECTAL 12/30 1910 Bisacodyl 5 MG DAILY PRN PRN 11/30 1909 AC PO 12/30 1910 Bisacodyl 10 MG DAILY PRN PRN 11/30 1909 AC RECTAL 12/30 1910 Hydrocodone Bitart/ 1 TAB Q4H PRN PRN 11/30 19 10 AC 12/11 Acetaminophen PO 12/30 Hydrocodone Bitart/ 2 TAB Q4H PRN PRN 11/30 191 0 AC 12/10 Acetaminophen PO 12/30 1910 0453 Magnesium Hydroxide 30 ML DAILY PRN PRN 11/30 1 910 AC PO 12/30 1910 Meperidine HCl 25 MG Q4H PRN PRN 11/30 1909 AC 12/07 IM 12/30 1910 225 Naloxone HCl 0.2 MG ASDIR PRN 11/30 1909 AC IV 12/30 1910 Ondansetron HCl 4 MG Q4H PRN PRN 11/30 1909 AC 12/08 IV 12/30 1910 0203 Laboratory Tests 12/12 05 Chemistry Sodium (137 - 145 MMOL/L) 134 L Potassium (3.5 - 5.1 MMOL/L) 3.5 Chloride (98 - 107 MMOL/L) 99 Carbon Dioxide (22 - 30 MMOL/L) 31 H BUN (7 - 17 MG/DL) 8 Creatinine (0.52 - 1.04 MG/DL) 0.50 L Glomerular Filtr Rate > 60 Glucose (74 - 106 MG/DL) 99 Calcium (8.4 - 10.2 MG/DL) 8.7 Magnesium (1.6 - 2.3 MG/DL) 1.9 Laboratory Tests 12/12 05 Hematology WBC (3.8 - 9.8 K/MM3) 7.7 RBC (3.58 - 4.97 M/MM3) 3.72 Hgb (11.2 - 14.9 G/DL) 10.5 L Hct (33.2 - 43.5 %) 33.1 L MCV (80.7 - 99.1 fL) 89 MCH (27.0 - 34.1 pg) 28.2 MCHC (32.2 - 35.7 %) 31.7 L RDW (12.1 - 15.2 %) 14.8 Plt Count (129 - 368 K/MM3) 305 MPV (7.4 - 10.4 fl) 9.8 Neut % (Auto) (43 - 75 %) 71.5 Lymph % (Auto) (14 - 44 %) 16.6 [place] % (Auto) (4 - 13 %) 8.0 Eos % (Auto) (0 - 6 %) 2.6 Baso % (Auto) (0 - 2 %) 0.3 Neut # (Auto) (2.0 - 7.6 K/mm3) 5.51 Lymph # (Auto) (1.0 - 3.8 K/mm3) 1.28 [place] # (Auto) (0.1 - 0.8 K/mm3) 0.62 Eos # (Auto) (0.0 - 0.2 K/mm3) 0.20 Baso # (Auto) (0.0 - 0.2 K/mm3) 0.02 Immature Gran % (0.0 - 2.0 %) 1.0 Nucleated RBC % (0 - 1.0 %) 0.0 Nucleated RBCs # (Man) (0.0 - 0.1 K/mm3) 0.00 Radiology data: Recent Impressions: RADIOLOGY - XR CHEST 1V 12/12 0545 Report Impression - Status: SIGNED Entered: 12/12/2018 0841 IMPRESSION: No identifiable pneumothorax. Slight ly limited study. Right chest tube, stable. Similar appearance to subcutaneous emphysema. Location: U19 Impression By: Ayleen - Chris Ortiz MD Results: labs reviewed, current med profile rev' d Treatment Prophylaxis Treatment Prophylaxis William Documentation: The data below has been impo rted from nursing documentation. Any exceptions have been noted below under Provider comments. 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 (-) PLAN No antimicrobials needed S/p Chest revision per Thoracic surgery Electronically Signed by Eric Yu MD on 12/12 at 1845 RPT #:[id number] END OF REPORT 2018-12-12 06:22:00-00:00 [facility] ([facility]) Cardiology Progress Note REPORT#:[id number] REPORT STATUS: Signed DATE:12/12/18 TIME: 621 PATIENT: MOISÉS CANNON UNIT #: [id number] ROOM/BED: [address] : [birth year] AGE: 63 SEX: F ATTEND: Augustus Rivera MD ADM AUTHOR: Miguel Chawla MD * ALL edits or amendments must be made on the [employer]/computer document * Subjective Chief Complaint: no CP, worsening SOB Patient reports: No: chest pain, palpitations, shortness of breat h. Objective General VS/I O: 24 hour I O ending at 0700: 12/12 0700 12/11 1900 Intake Total 150 300 Output Total 350 890 Balance -200 -590 Intake, Oral 150 300 Number 1 Bowel Movements Number Voids 3 7 Output, Chest 0 Tube Drainage Output, Urine 350 890 Vital Signs: Date Time Temp Pulse Resp B/P B/P Pulse O2 O2 F low FiO2 Mean Ox Delivery Rate 12/12 0513 82 29 120/70 88 93 04/03 0413 83 39 156/68 98 92 04/03 0400 97.5 04/03 0327 87 39 150/63 90 92 04/03 0213 84 28 112/57 77 98 04/03 0113 95 35 111/56 76 04/03 0100 92 04/03 0013 92 34 115/57 82 94 04/03 0001 84 19 103/47 68 95 04/03 0000 97.5 04/03 0000 95 04/ 2300 93 04/ 2213 94 25 119/62 84 04/ 2200 95 04/ 2113 106 30 147/65 94 95 04/ 2021 93 Nasal 2.089848 28 cannula /1999 97.6 04/ 1930 Nasal 1.102044 cannula 04/ 1726 97.5 04/ 1713 102 33 143/82 94 04/02 1613 107 30 156/68 93 04/02 1513 101 34 97/68 98 04/02 1413 101 35 106/74 92 04/02 1313 106 38 136/78 92 04/02 1300 93 04/02 1213 97 25 139/71 04/02 1200 93 04/02 1100 97.7 04/ 1013 102 18 128/74 93 04/02 1000 94 04/02 0913 98 115/76 04/02 0900 22 93 04/02 0823 Nasal 1.081192 cannula 04/ 0813 135/76 04/02 0800 96 20 92 04/02 0715 98.1 04/ 0713 93 21 136/78 95 04/02 0641 94 Nasal 1.933059 26 cannula Medications: Active Meds + DC'd Last 24 Hrs Fluticasone Propionate 1 SPRAY BID NASAL (CKD) Potassium Chloride 20 MEQ NOW ONE PO (DC) Enoxaparin Sodium 40 MG Q24H SUBQ Ipratropium Freedom 0.5 MG RTQ4H NEB (CKD) Levalbuterol HCl 0.63 MG RTQ4H NEB Atorvastatin Calcium 40 MG BEDTIME PO Citalopram Hydrobromide 20 MG BEDTIME PO Docusate Sodium 100 MG BID PO Metoprolol Tartrate 25 MG BEDTIME PO Pantoprazole 20 MG BEDTIME PO Zolpidem Tartrate 10 MG BEDTIME PO Acetaminophen 650 MG Q4H PRN PRN PO Acetaminophen 650 MG Q4H PRN PRN RECTAL Bisacodyl 5 MG DAILY PRN PRN PO Bisacodyl 10 MG DAILY PRN PRN RECTAL Hydrocodone Bitart/Acetaminophen 1 TAB Q4H PRN P RN PO Hydrocodone Bitart/Acetaminophen 2 TAB Q4H PRN P RN PO Magnesium Hydroxide 30 ML DAILY PRN PRN PO Meperidine HCl 25 MG Q4H PRN PRN IM Naloxone HCl 0.2 MG ASDIR PRN IV Ondansetron HCl 4 MG Q4H PRN PRN IV Status post: Robotic assisted excision of right upper lobe pancho ng nodule. Staple excision of blebs right upper lobe of lung. Physical Exam General appearance: alert, awake, oriented Head/Eyes: atraumatic, Eyelids subcutaneous emph ysema. ENT: moist mucosal membranes Neck: supple/no meningismus, no bruit/NL carotids, no JVD, no masses or swelling Cardiovascular: CV assessment: regular rate and rhythm, BP puls es = bilaterally, normal heart sounds, no murmur Respiratory: decreased breat h sounds, Few crackles. chest tube right side to LWS Abdomen: soft, non-tender, no mass/organ omegaly, no pulsatile mass, no rebound Lower extremity: LE assessment: no edema, 2+ peripheral pulses Musculoskeletal: full range of motion Neuro/PRODUCTION PLANNER SCHEDULER: alert, oriented X 3, CN II-XII intact , no motor deficits Skin: abnormal color (S/Q emphysema) Psychiatry: normal affect, normal judgment/insig ht, normal mood, no hallucinations Results Findings/Data: Laboratory Tests 12/13 511 Chemistry Sodium (137 - 145 MMOL/L) 134 L Potassium (3.5 - 5.1 MMOL/L) 3.5 Chloride (98 - 107 MMOL/L) 99 Carbon Dioxide (22 - 30 MMOL/L) 31 H BUN (7 - 17 MG/DL) 8 Creatinine (0.52 - 1.04 MG/DL) 0.50 L Glomerular Filtr Rate > 60 Glucose (74 - 106 MG/DL) 99 Calcium (8.4 - 10.2 MG/DL) 8.7 Magnesium (1.6 - 2.3 MG/DL) 1.9 Laboratory Tests 12/12 05 Hematology WBC (3.8 - 9.8 K/MM3) 7.7 RBC (3.58 - 4.97 M/MM3) 3.72 Hgb (11.2 - 14.9 G/DL) 10.5 L Hct (33.2 - 43.5 %) 33.1 L MCV (80.7 - 99.1 fL) 89 MCH (27.0 - 34.1 pg) 28.2 MCHC (32.2 - 35.7 %) 31.7 L RDW (12.1 - 15.2 %) 14.8 Plt Count (129 - 368 K/MM3) 305 MPV (7.4 - 10.4 fl) 9.8 Neut % (Auto) (43 - 75 %) 71.5 Lymph % (Auto) (14 - 44 %) 16.6 [place] % (Auto) (4 - 13 %) 8.0 Eos % (Auto) (0 - 6 %) 2.6 Baso % (Auto) (0 - 2 %) 0.3 Neut # (Auto) (2.0 - 7.6 K/mm3) 5.51 Lymph # (Auto) (1.0 - 3.8 K/mm3) 1.28 [place] # (Auto) (0.1 - 0.8 K/mm3) 0.62 Eos # (Auto) (0.0 - 0.2 K/mm3) 0.20 Baso # (Auto) (0.0 - 0.2 K/mm3) 0.02 Immature Gran % (0.0 - 2.0 %) 1.0 Nucleated RBC % (0 - 1.0 %) 0.0 Nucleated RBCs # (Man) (0.0 - 0.1 K/mm3) 0.00 Laboratory Tests 12/12 0512 Chemistry Magnesium (1.6 - 2.3 MG/DL) 1.9 Diagnosis, Assessment Plan Free Text DxA P Notes Free Text DxA P Notes: IMPRESSION: S/P Robotic assisted excision of right upper lo be lung nodule. Staple excision of blebs right upper lobe of lung. R PTX - subcutaneous emphysema CAD-stable HTN HLP PVC's PAD AAA S/P EVAR COPD RECOMMEND: Continue current medical rx. Ambulate at 1813 RPT #:[id number] END OF REPORT 2018-12-11 17:54:00-00:00 [facility] ([facility]) Cardiology Progress Note REPORT#:[id number] REPORT STATUS: Signed DATE:12/11/18 TIME: 1753 PATIENT: MOISÉS CANNON UNIT #: [id number] ROOM/BED: [address] : [birth year] AGE: 63 SEX: F ATTEND: Augustus Rivera MD ADM AUTHOR: Sadie Villalba BALING MACHINE TENDER * ALL edits or amendments must be made on the el [employer]/computer document * Subjective Free Text Subj Notes Free Text Subj Notes: sittting in chair. no chest pain or shortness of breath Objective General VS/I O: 24 hour I O ending at 0700: 04 0700 12/10 1900 Intake Total 230 470 Output Total 1050 1390 Balance -820 -920 Intake, Oral 230 470 Number Voids 7 7 Output, Chest 0 20 Tube Drainage Output, Urine 1050 1370 Vital Signs: Date Time Temp Pulse Resp B/P B/P Pulse O2 O2 F low FiO2 Mean Ox Delivery Rate 12/11 1726 97.5 12/11 1413 101 35 106/74 92 04/ 1313 106 38 136/78 92 04/ 1300 93 04/ 1213 97 25 139/71 04/ 1200 93 04/ 1100 97.7 04/ 1013 102 18 128/74 93 04/02 1000 94 04/ 0913 98 115/76 04/02 0900 22 93 04/02 0823 Nasal 1.830747 cannula 04/ 0813 135/76 04/ 0800 96 20 92 04/02 0715 98.1 04/02 0713 93 21 136/78 95 04/02 0641 94 Nasal 1.201271 26 cannula 04/ 0400 98.7 04/02 0224 94 26 111/81 88 91 04/02 0200 93 04/02 0113 94 27 102/67 79 92 04/02 0100 93 04/02 0013 94 22 117/62 83 92 04/02 0000 98.7 04/02 0000 97 12/10 2313 92 33 124/68 89 94 12/10 2300 97 12/10 2213 93 36 142/69 95 97 /3 105 31 120/80 95 96 12/10 2012 108 22 137/76 98 97 /2003 97 12/11 1999 98.9 12/11 1999 97 12/10 1930 Nasal 3.248650 cannula 12/10 1912 112 26 121/71 89 95 12/10 1912 95 Nasal 2.573050 28 cannula 12/10 190 110 21 95 Medications: Active Meds + DC'd Last 24 Hrs Fluticasone Propionate 1 SPRAY BID NASAL (CKD) Potassium Chloride 20 MEQ NOW ONE PO (DC) Enoxaparin Sodium 40 MG Q24H SUBQ Ipratropium Freedom 0.5 MG RTQ4H NEB (CKD) Levalbuterol HCl 0.63 MG RTQ4H NEB Atorvastatin Calcium 40 MG BEDTIME PO Citalopram Hydrobromide 20 MG BEDTIME PO Docusate Sodium 100 MG BID PO Metoprolol Tartrate 25 MG BEDTIME PO Pantoprazole 20 MG BEDTIME PO Zolpidem Tartrate 10 MG BEDTIME PO Acetaminophen 650 MG Q4H PRN PRN PO Acetaminophen 650 MG Q4H PRN PRN RECTAL Bisacodyl 5 MG DAILY PRN PRN PO Bisacodyl 10 MG DAILY PRN PRN RECTAL Hydrocodone Bitart/Acetaminophen 1 TAB Q4H PRN P RN PO Hydrocodone Bitart/Acetaminophen 2 TAB Q4H PRN P RN PO Magnesium Hydroxide 30 ML DAILY PRN PRN PO Meperidine HCl 25 MG Q4H PRN PRN IM Naloxone HCl 0.2 MG ASDIR PRN IV Ondansetron HCl 4 MG Q4H PRN PRN IV Status post: Robotic assisted excision of right upper lobe pancho ng nodule. Staple excision of blebs right upper lobe of lung. Physical Exam General appearance: alert, awake, oriented Head/Eyes: atraumatic, Eyelids subcutaneous emph ysema. ENT: moist mucosal membranes Neck: supple/no meningismus, no bruit/NL carotids, no JVD, no masses or swelling Cardiovascular: CV assessment: regular rate and rhythm, BP puls es = bilaterally, normal heart sounds, no murmur Respiratory: decreased breath sounds, Few crackl es., chest tube right side to LWS Abdomen: soft, non-tender, no mass/organ omegaly, no pulsatile mass, no rebound Lower extremity: LE assessment: no edema, 2+ peripheral pulses Musculoskeletal: full range of motion Neuro/PRODUCTION PLANNER SCHEDULER: alert, oriented X 3, CN II-XII intact , no motor deficits Skin: abnormal color (S/Q emphysema) Psychiatry: normal affect, normal judgment/insig ht, normal mood, no hallucinations Results Findings/Data: Laboratory Tests 12/11 0508 Chemistry Sodium (137 - 145 MMOL/L) 134 L Potassium (3.5 - 5.1 MMOL/L) 3.3 L Chloride (98 - 107 MMOL/L) 97 L Carbon Dioxide (22 - 30 MMOL/L) 30 Anion Gap (14 - 24 MMOL/L) 10 L BUN (7 - 17 MG/DL) 7 Creatinine (0.52 - 1.04 MG/DL) 0.50 L Glomerular Filtr Rate > 60 Glucose (74 - 106 MG/DL) 117 H Calcium (8.4 - 10.2 MG/DL) 8.7 Magnesium (1.6 - 2.3 MG/DL) 1.9 Laboratory Tests 12/11 0508 Hematology WBC (3.8 - 9.8 K/MM3) 7.8 RBC (3.58 - 4.97 M/MM3) 3.79 Hgb (11.2 - 14.9 G/DL) 10.8 L Hct (33.2 - 43.5 %) 34.0 MCV (80.7 - 99.1 fL) 90 MCH (27.0 - 34.1 pg) 28.5 MCHC (32.2 - 35.7 %) 31.8 L RDW (12.1 - 15.2 %) 14.6 Plt Count (129 - 368 K/MM3) 286 MPV (7.4 - 10.4 fl) 9.8 Neut % (Auto) (43 - 75 %) 71.9 Lymph % (Auto) (14 - 44 %) 15.4 [place] % (Auto) (4 - 13 %) 8.8 Eos % (Auto) (0 - 6 %) 2.4 Baso % (Auto) (0 - 2 %) 0.5 Neut # (Auto) (2.0 - 7.6 K/mm3) 5.60 Lymph # (Auto) (1.0 - 3.8 K/mm3) 1.20 [place] # (Auto) (0.1 - 0.8 K/mm3) 0.69 Eos # (Auto) (0.0 - 0.2 K/mm3) 0.19 Baso # (Auto) (0.0 - 0.2 K/mm3) 0.04 Immature Gran % (0.0 - 2.0 %) 1.0 Nucleated RBC % (0 - 1.0 %) 0.0 Nucleated RBCs # (Man) (0.0 - 0.1 K/mm3) 0.00 Laboratory Tests 12/11 0508 Chemistry Magnesium (1.6 - 2.3 MG/DL) 1.9 Radiology data: Recent Impressions: RADIOLOGY - XR CHEST 1V 12/11 0550 Report Impression - Status: SIGNED Entered: 12/11/2018 0700 IMPRESSION: Extensive subcutaneous emphysema. Stable right c hest tube. No gross pneumothorax, though assessment is significantly limited. Impression By: [email or web address] - Obed Villasenor MD Diagnosis, Assessment Plan Free Text DxA P Notes Free Text DxA P Notes: IMPRESSION: S/P Robotic assisted excision of right upper lo be lung nodule. Staple excision of blebs right upper lobe of lung. R PTX - subcutaneous emphysema CAD-stable HTN HLP PVC's PAD AAA S/P EVAR COPD RECOMMEND: Continue current medical rx. Ambulate at 1507 RPT #:[id number] END OF REPORT 2018-12-11 17:54:00-00:00 [facility] ([facility]) Cardiology Progress Note REPORT#:[id number] REPORT STATUS: Signed DATE:12/11/18 TIME: 1754 PATIENT: MOISÉS CANNON UNIT #: [id number] ROOM/BED: [address] : 55 AGE: 63 SEX: F ATTEND: Augustus Rivera MD ADM AUTHOR: Sadie Villalba NP * ALL edits or amendments must be made on the el [employer]/computer document * Subjective Free Text Subj Notes Free Text Subj Notes: sittting in chair. no chest pain or shortness of breath Objective General VS/I O: 24 hour I O ending at 0700: 12/11 0700 12/10 1900 Intake Total 230 470 Output Total 1050 1390 Balance -820 -920 Intake, Oral 230 470 Number Voids 7 7 Output, Chest 0 20 Tube Drainage Output, Urine 1050 1370 Vital Signs: Date Time Temp Pulse Resp B/P B/P Pulse O2 O2 F low FiO2 Mean Ox Delivery Rate 12/11 1726 97.5 12/11 1413 101 35 106/74 92 12/11 1313 106 38 136/78 92 12/11 1300 93 12/11 1213 97 25 139/71 12/11 1200 93 04/02 1100 97.7 12/11 1013 102 18 128/74 93 04/02 1000 94 04/ 0913 98 115/76 04/ 0900 22 93 04/ 0823 Nasal 1.249035 cannula 12/11 0813 135/76 04/ 0800 96 20 92 04/ 0715 98.1 04/ 0713 93 21 136/78 95 04/02 0641 94 Nasal 1.291041 26 cannula / 0400 98.7 04/ 0224 94 26 111/81 88 91 04/ 0200 93 04/ 0113 94 27 102/67 79 92 04/ 0100 93 04/ 0013 94 22 117/62 83 92 04/ 0000 98.7 04/ 0000 97 12/10 2313 92 33 124/68 89 94 12/10 2300 97 12/10 2213 93 36 142/69 95 97 12/103 105 31 120/80 95 96 12/10 2012 108 22 137/76 98 97 12/11 2003 97 12/11 1999 98.9 12/11 1999 97 12/10 1930 Nasal 3.300299 cannula 12/10 191 112 26 121/71 89 95 12/10 191 95 Nasal 2.776945 28 cannula 12/10 1900 110 21 95 Medications: Active Meds + DC'd Last 24 Hrs Fluticasone Propionate 1 SPRAY BID NASAL (CKD) Potassium Chloride 20 MEQ NOW ONE PO (DC) Enoxaparin Sodium 40 MG Q24H SUBQ Ipratropium Freedom 0.5 MG RTQ4H NEB (CKD) Levalbuterol HCl 0.63 MG RTQ4H NEB Atorvastatin Calcium 40 MG BEDTIME PO Citalopram Hydrobromide 20 MG BEDTIME PO Docusate Sodium 100 MG BID PO Metoprolol Tartrate 25 MG BEDTIME PO Pantoprazole 20 MG BEDTIME PO Zolpidem Tartrate 10 MG BEDTIME PO Acetaminophen 650 MG Q4H PRN PRN PO Acetaminophen 650 MG Q4H PRN PRN RECTAL Bisacodyl 5 MG DAILY PRN PRN PO Bisacodyl 10 MG DAILY PRN PRN RECTAL Hydrocodone Bitart/Acetaminophen 1 TAB Q4H PRN P RN PO Hydrocodone Bitart/Acetaminophen 2 TAB Q4H PRN P RN PO Magnesium Hydroxide 30 ML DAILY PRN PRN PO Meperidine HCl 25 MG Q4H PRN PRN IM Naloxone HCl 0.2 MG ASDIR PRN IV Ondansetron HCl 4 MG Q4H PRN PRN IV Status post: Robotic assisted excision of right upper lobe pancho ng nodule. Staple excision of blebs right upper lobe of lung. Physical Exam General appearance: alert, awake, oriented Head/Eyes: atraumatic, Eyelids subcutaneous emph ysema. ENT: moist mucosal membranes Neck: supple/no meningismus, no bruit/NL carotids, no JVD, no masses or swelling Cardiovascular: CV assessment: regular rate and rhythm, BP puls es = bilaterally, normal heart sounds, no murmur Respiratory: decreased breath sounds, Few crackl es., chest tube right side to LWS Abdomen: soft, non-tender, no mass/organ omegaly, no pulsatile mass, no rebound Lower extremity: LE assessment: no edema, 2+ peripheral pulses Musculoskeletal: full range of motion Neuro/PRODUCTION PLANNER SCHEDULER: alert, oriented X 3, CN II-XII intact , no motor deficits Skin: abnormal color (S/Q emphysema) Psychiatry: normal affect, normal judgment/insig ht, normal mood, no hallucinations Results Findings/Data: Laboratory Tests 12/11 0508 Chemistry Sodium (137 - 145 MMOL/L) 134 L Potassium (3.5 - 5.1 MMOL/L) 3.3 L Chloride (98 - 107 MMOL/L) 97 L Carbon Dioxide (22 - 30 MMOL/L) 30 Anion Gap (14 - 24 MMOL/L) 10 L BUN (7 - 17 MG/DL) 7 Creatinine (0.52 - 1.04 MG/DL) 0.50 L Glomerular Filtr Rate > 60 Glucose (74 - 106 MG/DL) 117 H Calcium (8.4 - 10.2 MG/DL) 8.7 Magnesium (1.6 - 2.3 MG/DL) 1.9 Laboratory Tests 12/11 0508 Hematology WBC (3.8 - 9.8 K/MM3) 7.8 RBC (3.58 - 4.97 M/MM3) 3.79 Hgb (11.2 - 14.9 G/DL) 10.8 L Hct (33.2 - 43.5 %) 34.0 MCV (80.7 - 99.1 fL) 90 MCH (27.0 - 34.1 pg) 28.5 MCHC (32.2 - 35.7 %) 31.8 L RDW (12.1 - 15.2 %) 14.6 Plt Count (129 - 368 K/MM3) 286 MPV (7.4 - 10.4 fl) 9.8 Neut % (Auto) (43 - 75 %) 71.9 Lymph % (Auto) (14 - 44 %) 15.4 [place] % (Auto) (4 - 13 %) 8.8 Eos % (Auto) (0 - 6 %) 2.4 Baso % (Auto) (0 - 2 %) 0.5 Neut # (Auto) (2.0 - 7.6 K/mm3) 5.60 Lymph # (Auto) (1.0 - 3.8 K/mm3) 1.20 [place] # (Auto) (0.1 - 0.8 K/mm3) 0.69 Eos # (Auto) (0.0 - 0.2 K/mm3) 0.19 Baso # (Auto) (0.0 - 0.2 K/mm3) 0.04 Immature Gran % (0.0 - 2.0 %) 1.0 Nucleated RBC % (0 - 1.0 %) 0.0 Nucleated RBCs # (Man) (0.0 - 0.1 K/mm3) 0.00 Laboratory Tests 12/11 0508 Chemistry Magnesium (1.6 - 2.3 MG/DL) 1.9 Radiology data: Recent Impressions: RADIOLOGY - XR CHEST 1V 12/11 0550 Report Impression - Status: SIGNED Entered: 12/11/2018 0700 IMPRESSION: Extensive subcutaneous emphysema. Stable right c hest tube. No gross pneumothorax, though assessment is significantly limited. Impression By: [email or web address] - Obed Villasenor MD Diagnosis, Assessment Plan Free Text DxA P Notes Free Text DxA P Notes: IMPRESSION: S/P Robotic assisted excision of right upper lo be lung nodule. Staple excision of blebs right upper lobe of lung. R PTX - subcutaneous emphysema CAD-stable HTN HLP PVC's PAD AAA S/P EVAR COPD RECOMMEND: Continue current medical rx. Ambulate at 1507 at 0703 RPT #:[id number] END OF REPORT 2018-12-11 16:55:00-00:00 [facility] ([facility]) Hospitalist Progress Note REPORT#:[id number] REPORT STATUS: Signed DATE:12/11/18 TIME: 1654 PATIENT: MOISÉS CANNON UNIT #: [id number] ROOM/BED: [address] : 55 AGE: 63 SEX: F ATTEND: Augustus Rivera MD ADM AUTHOR: Karen Vasquez MD * ALL edits or amendments must be made on the Digital [employer]/computer document * Subjective Chief Complaint: swelling is still persistent . but better, Left eye is less swollen today. still w crepitus, CT in place Review of Systems Constitutional: Reports: fatigue, generalized weakness. Denies: fever. Eyes: Reports: swelling. ENT: Denies: sore throat. Respiratory: Reports: SOB. Cardiovascular: Reports: edema. GI: Denies: diarrhea, vomiting. Neuro: Denies: confusion, dizziness. Systems reviewed negative: Allergy/Immun , Constitutional, Endocrine, ENT, Eyes , GI, , Heme, Musculoskeletal, Neuro, Psych, S kin Objective General VS/I O: Vital Signs: Date Time Temp Pulse Resp B/P B/P Pulse O2 O2 Flow FiO2 Mean Ox Delivery Rate 12/11 1413 101 35 106/74 92 04/02 1313 106 38 136/78 92 04/02 1300 93 04/02 1213 97 25 139/71 04/02 1200 93 04/02 1100 97.7 04/02 1013 102 18 128/74 93 04/02 1000 94 04/02 0913 98 115/76 04/02 0900 22 93 04/02 0823 Nasal 1.270874 cannula 04/ 0813 135/76 04/02 0800 96 20 92 04/02 0715 98.1 04/02 0713 93 21 136/78 95 04/02 0641 94 Nasal 1.604619 26 cannula 04/02 0400 98.7 04/ 0224 94 26 111/81 88 91 04/02 0200 93 04/02 0113 94 27 102/67 79 92 04/02 0100 93 04/02 0013 94 22 117/62 83 92 12/11 0000 98.7 12/11 0000 97 12/10 2313 92 33 124/68 89 94 12/100 97 12/10 2212 93 36 142/69 95 97 12/103 105 31 120/80 95 96 12/10 2012 108 22 137/76 98 97 12/11 2003 97 12/11 1999 98.9 12/11 1999 97 12/10 1930 Nasal 3.541866 cannula 12/10 1912 112 26 121/71 89 95 12/10 1912 95 Nasal 2.608507 28 cannula 12/10 190 110 21 95 12/10 1713 106 19 96/60 95 24 hour I O ending at 0700: 12/11 0712/10 190 Intake Total 230 470 Output Total 1050 1390 Balance -820 -920 Intake, Oral 230 470 Number Voids 7 7 Output, Chest 0 20 Tube Drainage Output, Urine 1050 1370 Medications: Documentation of Current Medications in the [facility] Record : I attest that the foregoing medication list in [facility] medical record is true, accurate, and complete to the best of my knowled ge. Active Meds + DC'd Last 24 Hrs Fluticasone Propionate 1 SPRAY BID NASAL (CKD) Potassium Chloride 20 MEQ NOW ONE PO (DC) Enoxaparin Sodium 40 MG Q24H SUBQ Ipratropium Freedom 0.5 MG RTQ4H NEB (CKD) Levalbuterol HCl 0.63 MG RTQ4H NEB Atorvastatin Calcium 40 MG BEDTIME PO Citalopram Hydrobromide 20 MG BEDTIME PO Docusate Sodium 100 MG BID PO Metoprolol Tartrate 25 MG BEDTIME PO Pantoprazole 20 MG BEDTIME PO Zolpidem Tartrate 10 MG BEDTIME PO Acetaminophen 650 MG Q4H PRN PRN PO Acetaminophen 650 MG Q4H PRN PRN RECTAL Bisacodyl 5 MG DAILY PRN PRN PO Bisacodyl 10 MG DAILY PRN PRN RECTAL Hydrocodone Bitart/Acetaminophen 1 TAB Q4H PRN P RN PO Hydrocodone Bitart/Acetaminophen 2 TAB Q4H PRN P RN PO Magnesium Hydroxide 30 ML DAILY PRN PRN PO Meperidine HCl 25 MG Q4H PRN PRN IM Naloxone HCl 0.2 MG ASDIR PRN IV Ondansetron HCl 4 MG Q4H PRN PRN IV Physical Exam General appearance: awake, face swollen spc eyes Head/Eyes: abnormal eyelids, abnormal periorbita l ENT: normal dentition, normal ear left, normal e ar right, normal nose, normal pharynx, normal sinus Neck: full range of motion, non-tender, normal thyroid, supple/no meningismus, no bruit/NL carotids, no JVD, no masses or swell ing Cardiovascular: normal capillary refill, regular rate rhythm Respiratory: aerating well, clear to auscultatio n Abdomen: distended, tenderness, normal bowel yanelis nds Extremities: edema, moves all, normal capillary refill Musculoskeletal: normal inspection Neuro/PRODUCTION PLANNER SCHEDULER: alert, oriented X 3 Skin: subq emphysema (face, neck and chest ), dr reyes, intact Wound/incision: Site Condition: dressing clean dry, dressing in tact Results Findings/Data: Laboratory Tests 12/11 0508 Chemistry Sodium (137 - 145 MMOL/L) 134 L Potassium (3.5 - 5.1 MMOL/L) 3.3 L Chloride (98 - 107 MMOL/L) 97 L Carbon Dioxide (22 - 30 MMOL/L) 30 Anion Gap (14 - 24 MMOL/L) 10 L BUN (7 - 17 MG/DL) 7 Creatinine (0.52 - 1.04 MG/DL) 0.50 L Glomerular Filtr Rate > 60 Glucose (74 - 106 MG/DL) 117 H Calcium (8.4 - 10.2 MG/DL) 8.7 Magnesium (1.6 - 2.3 MG/DL) 1.9 Laboratory Tests 12/11 0508 Hematology WBC (3.8 - 9.8 K/MM3) 7.8 RBC (3.58 - 4.97 M/MM3) 3.79 Hgb (11.2 - 14.9 G/DL) 10.8 L Hct (33.2 - 43.5 %) 34.0 MCV (80.7 - 99.1 fL) 90 MCH (27.0 - 34.1 pg) 28.5 MCHC (32.2 - 35.7 %) 31.8 L RDW (12.1 - 15.2 %) 14.6 Plt Count (129 - 368 K/MM3) 286 MPV (7.4 - 10.4 fl) 9.8 Neut % (Auto) (43 - 75 %) 71.9 Lymph % (Auto) (14 - 44 %) 15.4 [place] % (Auto) (4 - 13 %) 8.8 Eos % (Auto) (0 - 6 %) 2.4 Baso % (Auto) (0 - 2 %) 0.5 Neut # (Auto) (2.0 - 7.6 K/mm3) 5.60 Lymph # (Auto) (1.0 - 3.8 K/mm3) 1.20 [place] # (Auto) (0.1 - 0.8 K/mm3) 0.69 Eos # (Auto) (0.0 - 0.2 K/mm3) 0.19 Baso # (Auto) (0.0 - 0.2 K/mm3) 0.04 Immature Gran % (0.0 - 2.0 %) 1.0 Nucleated RBC % (0 - 1.0 %) 0.0 Nucleated RBCs # (Man) (0.0 - 0.1 K/mm3) 0.00 Diagnosis, Assessment Plan Free Text DxA P Notes Free text DxA P notes: Assesment: -RUL nodule/blebs s/p excision -Dyspnea on exertion -Extensive subcutaneous emphysema Plan: -Continue oxygen as needed -cont nebs , pulmicort -Monitor chest tube output; Management per CT barth rgeon -Continue home meds as appropriate -pain control -DVT prophylaxis - SCD 12/02 cont chest tube cont oxygen, nebs management per [facility] dvt ppx: [facility] [place] 12/03 pt is stable, transfer out icu cont chest tube cont cont management 12/04 transferred back to ICU bc of sq emphysema- CV s x following Chest Xray shows worsening s ubcutaneous emphysema otherwise stable appearance of the chest Cont Chest tube Cont current management on clear liquid diet. DVT prophylaxis: [facility] 12/05 -Chest Xray shows worsening subcutaneous emphysema and development of bibasilar atelectasis and questionable small pneumomediast inum. 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 -Encourage IS and ambulation -Granddaughter at bedside -Caseating granuloma/fungal-final pathology-ID c onsulted -Cont Chest tube -Cont current management -DVT prophylasix-lovenox 12/07- cxr same. - pt NPO for possible OR today by dr Rivera - will continue with current supportive care. 12/08- breathing comfortably with mask. able to s it at the edge of the bed. - ct in place. CV surgery following. - will continue with current mx. 12/09 -CT in place continue to monitor -Continue current mx -Continue to ambulate 12/10 -CT in place continue to monitor -Continue current mx -Continue to ambulate 12/11 Pt is in ICU,, sitting up in the chair Continue current rx CT to be taken out per DR rivera Eyes are little better Quality Medications Current medication review: I attest that the foregoing medication list in t he medical record is true, accurate, and complete to the best of my knowled ge. Advanced Care Plan 65 or Older Discussed with: patient Discussion included: code status BMI Screening > 25 or < 18.5 Patient's BMI: Current BMI: 25.5 BMI status/follow-up: abnl BMI, pt to F/U w/PCP Tobacco Use/Counseling Tobacco use/counseling: tobacco user HTN Screening/Follow-up Last documented vitals: Last Documented: Result Date Time Pulse Ox 92 12/11 1413 B/P 106/74 12/11 1413 Pulse 101 12/11 1413 Resp 35 12/11 1413 Temp 97.7 12/11 1100 O2 Delivery Nasal cannula 12/11 0823 O2 Flow Rate 1.025730 12/11 0823 FiO2 26 12/11 0641 B/P Mean 88 12/11 0224 B/P assess/follow-up: normal B/P, no f/u req Electronically Signed by Karen Vasquez MD on 10/30 at 1659 RPT #:[id number] END OF REPORT 2018-12-11 10:30:00-00:00 [facility] ([facility]) Cardiovascular Surgery Prog REPORT#:[id number] REPORT STATUS: Signed DATE:12/11/18 TIME: 1030 PATIENT: MOISÉS CANNON UNIT #: [id number] ROOM/BED: [address] : 55 AGE: 63 SEX: F ATTEND: Augustus Rivera MD ADM AUTHOR: Oumou Stanley NP * ALL edits or amendments must be made on the [employer]/computer document * General Post-op: day 3 Status post: RIGHT CHEST TUBE INSERTION Subjective Patient reports: No: abdominal pain, chest pain, nausea, vomiting . Comments: Seen at bedside Reports nasal congestion. Ct to suction-no air leak Review of Systems Constitutional: Denies: chills, fever, generalized weakness. ENT: Reports: nasal congestion. Respiratory: Denies: DIAMOND (dyspnea on exertion), SOB. Cardiovascular: Denies: chest pain, DIAMOND (dyspnea on exer tion), edema, orthopnea, palpitations. Objective Physical Exam VS/I O: Last Documented: Result Date Time O2 Delivery Nasal cannula 12/11 822 O2 Flow Rate 1.329648 12/11 08 B/P 135/76 12/11 0813 Pulse Ox 92 12/11 0800 Pulse 96 12/11 08 Resp 20 12/11 0800 Temp 98.1 12/11 0715 FiO2 26 12/11 0641 B/P Mean 88 12/11 0224 24 hour I O ending at 0700: 12/11 0700 04/ 1900 Intake Total 230 470 Output Total 1050 1390 Balance -820 -920 Intake, Oral 230 470 Number Voids 7 7 Output, Chest 0 20 Tube Drainage Output, Urine 1050 1370 Medications: Active Meds + DC'd Last 24 Hrs Enoxaparin Sodium 40 MG Q24H SUBQ Ipratropium Freedom 0.5 MG RTQ4H NEB (CKD) Levalbuterol HCl 0.63 MG RTQ4H NEB Atorvastatin Calcium 40 MG BEDTIME PO Citalopram Hydrobromide 20 MG BEDTIME PO Docusate Sodium 100 MG BID PO Metoprolol Tartrate 25 MG BEDTIME PO Pantoprazole 20 MG BEDTIME PO Zolpidem Tartrate 10 MG BEDTIME PO Acetaminophen 650 MG Q4H PRN PRN PO Acetaminophen 650 MG Q4H PRN PRN RECTAL Bisacodyl 5 MG DAILY PRN PRN PO Bisacodyl 10 MG DAILY PRN PRN RECTAL Hydrocodone Bitart/Acetaminophen 1 TAB Q4H PRN P RN PO Hydrocodone Bitart/Acetaminophen 2 TAB Q4H PRN PRN PO Magnesium Hydroxide 30 ML DAILY PRN PRN PO Meperidine HCl 25 MG Q4H PRN PRN IM Naloxone HCl 0.2 MG ASDIR PRN IV Ondansetron HCl 4 MG Q4H PRN PRN IV General appearance: alert, awake, oriented, no a cute distress HEENT: bilateral eye swollen and closed Neck: tenderness, neck swelling Cardiovascular: ectopy (occational PVCs) , BP/pulses equal bilat., normal heart sounds, regular rate rhythm Respiratory: aerating well, clear to auscultatio n, symmetric expansion, no distress, CT to suction no aie leak subq emphyse ma Abdomen: distended (mild), tenderness, normal priscilla wel sounds Genitourinary: no william Extremities: moves all, BUE swelling-subq emphys candice Neuro/PRODUCTION PLANNER SCHEDULER: alert, oriented X 3 Skin: subq enphysema Results Findings/Data: Laboratory Tests 12/11 050 Chemistry Sodium (137 - 145 MMOL/L) 134 L Potassium (3.5 - 5.1 MMOL/L) 3.3 L Chloride (98 - 107 MMOL/L) 97 L Carbon Dioxide (22 - 30 MMOL/L) 30 Anion Gap (14 - 24 MMOL/L) 10 L BUN (7 - 17 MG/DL) 7 Creatinine (0.52 - 1.04 MG/DL) 0.50 L Glomerular Filtr Rate > 60 Glucose (74 - 106 MG/DL) 117 H Calcium (8.4 - 10.2 MG/DL) 8.7 Magnesium (1.6 - 2.3 MG/DL) 1.9 Laboratory Tests 12/11 0508 Hematology WBC (3.8 - 9.8 K/MM3) 7.8 RBC (3.58 - 4.97 M/MM3) 3.79 Hgb (11.2 - 14.9 G/DL) 10.8 L Hct (33.2 - 43.5 %) 34.0 MCV (80.7 - 99.1 fL) 90 MCH (27.0 - 34.1 pg) 28.5 MCHC (32.2 - 35.7 %) 31.8 L RDW (12.1 - 15.2 %) 14.6 Plt Count (129 - 368 K/MM3) 286 MPV (7.4 - 10.4 fl) 9.8 Neut % (Auto) (43 - 75 %) 71.9 Lymph % (Auto) (14 - 44 %) 15.4 [place] % (Auto) (4 - 13 %) 8.8 Eos % (Auto) (0 - 6 %) 2.4 Baso % (Auto) (0 - 2 %) 0.5 Neut # (Auto) (2.0 - 7.6 K/mm3) 5.60 Lymph # (Auto) (1.0 - 3.8 K/mm3) 1.20 [place] # (Auto) (0.1 - 0.8 K/mm3) 0.69 Eos # (Auto) (0.0 - 0.2 K/mm3) 0.19 Baso # (Auto) (0.0 - 0.2 K/mm3) 0.04 Immature Gran % (0.0 - 2.0 %) 1.0 Nucleated RBC % (0 - 1.0 %) 0.0 Nucleated RBCs # (Man) (0.0 - 0.1 K/mm3) 0.00 Radiology data: Recent Impressions: RADIOLOGY - XR CHEST 1V 12/11 0550 Report Impression - Status: SIGNED Entered: 12/11/2018 0700 IMPRESSION: Extensive subcutaneous emphysema. Stable right c hest tube. No gross pneumothorax, though assessment is significantly limited. Impression By: [email or web address] - Obed Villasenor MD Diagnosis, Assessment Plan Free Text A P: This is a 63 Y/F with right lung nodules S/p Robotic assisted excision of right upper lob e lung nodule and excision of blebs Extensive subq emphysema-s/p CT removal and re-i nsertion CT to suction-no air leak today Nasal congestion-will add flonase Hypokalemia- replaced Caseating granuloma/fungal-final pathology-ID fo llowinevie Encourage IS and ambulation Will cont. Monitor closely Plan discussed with: patient, collaborating MD ( Dr. Rivera) at 1036 RPT #:[id number] END OF REPORT 2018-12-11 10:30:00-00:00 [facility] ([facility]) Cardiovascular Surgery Prog REPORT#:[id number] REPORT STATUS: Signed DATE:12/11/18 TIME: 1030 PATIENT: MOISÉS CANNON UNIT #: [id number] [address] : [birth year] AGE: 63 SEX: F ATTEND: Augustus Rivera MD ADM AUTHOR: Oumou Stanley NP * ALL edits or amendments must be made on the [employer]/computer document * General Post-op: day 3 Status post: RIGHT CHEST TUBE INSERTION Subjective Patient reports: No: abdominal pain, chest pain, nausea, vomiting . Comments: Seen at bedside Reports nasal congestion. Ct to suction-no air leak Review of Systems Constitutional: Denies: chills, fever, generalized weakness. ENT: Reports: nasal congestion. Respiratory: Denies: DIAMOND (dyspnea on exertion), SOB. Cardiovascular: Denies: chest pain, DIAMOND (dyspnea on exer tion), edema, orthopnea, palpitations. Objective Physical Exam VS/I O: Last Documented: Result Date Time O2 Delivery Nasal cannula 12/11 822 O2 Flow Rate 1.266728 12/11 0823 B/P 135/76 12/11 0813 Pulse Ox 92 12/11 0800 Pulse 96 12/11 0800 Resp 20 12/11 0800 Temp 98.1 12/11 0715 FiO2 26 12/11 0641 B/P Mean 88 12/11 0224 24 hour I O ending at 0700: 12/11 0700 04 1900 Intake Total 230 470 Output Total 1050 1390 Balance -820 -920 Intake, Oral 230 470 Number Voids 7 7 Output, Chest 0 20 Tube Drainage Output, Urine 1050 1370 Medications: Active Meds + DC'd Last 24 Hrs Enoxaparin Sodium 40 MG Q24H SUBQ Ipratropium Freedom 0.5 MG RTQ4H NEB (CKD) Levalbuterol HCl 0.63 MG RTQ4H NEB Atorvastatin Calcium 40 MG BEDTIME PO Citalopram Hydrobromide 20 MG BEDTIME PO Docusate Sodium 100 MG BID PO Metoprolol Tartrate 25 MG BEDTIME PO Pantoprazole 20 MG BEDTIME PO Zolpidem Tartrate 10 MG BEDTIME PO Acetaminophen 650 MG Q4H PRN PRN PO Acetaminophen 650 MG Q4H PRN PRN RECTAL Bisacodyl 5 MG DAILY PRN PRN PO Bisacodyl 10 MG DAILY PRN PRN RECTAL Hydrocodone Bitart/Acetaminophen 1 TAB Q4H PRN P RN PO Hydrocodone Bitart/Acetaminophen 2 TAB Q4H PRN P RN PO Magnesium Hydroxide 30 ML DAILY PRN PRN PO Meperidine HCl 25 MG Q4H PRN PRN IM Naloxone HCl 0.2 MG ASDIR PRN IV Ondansetron HCl 4 MG Q4H PRN PRN IV General appearance: alert, awake, oriented, no a cute distress HEENT: bilateral eye swollen and closed Neck: tenderness, neck swelling Cardiovascular: ectopy (occational PVCs) , BP/pulses equal bilat., normal heart sounds, regular rate rhythm Respiratory: aerating well, clear to auscultatio n, symmetric expansion, no distress, CT to suction no aie leak subq emphyse ma Abdomen: distended (mild), tenderness, normal priscilla wel sounds Genitourinary: no william Extremities: moves all, BUE swelling-subq emphys candice Neuro/PRODUCTION PLANNER SCHEDULER: alert, oriented X 3 Skin: subq enphysema Results Findings/Data: Laboratory Tests 12/11 0508 Chemistry Sodium (137 - 145 MMOL/L) 134 L Potassium (3.5 - 5.1 MMOL/L) 3.3 L Chloride (98 - 107 MMOL/L) 97 L Carbon Dioxide (22 - 30 MMOL/L) 30 Anion Gap (14 - 24 MMOL/L) 10 L BUN (7 - 17 MG/DL) 7 Creatinine (0.52 - 1.04 MG/DL) 0.50 L Glomerular Filtr Rate > 60 Glucose (74 - 106 MG/DL) 117 H Calcium (8.4 - 10.2 MG/DL) 8.7 Magnesium (1.6 - 2.3 MG/DL) 1.9 Laboratory Tests 12/11 0508 Hematology WBC (3.8 - 9.8 K/MM3) 7.8 RBC (3.58 - 4.97 M/MM3) 3.79 Hgb (11.2 - 14.9 G/DL) 10.8 L Hct (33.2 - 43.5 %) 34.0 MCV (80.7 - 99.1 fL) 90 MCH (27.0 - 34.1 pg) 28.5 MCHC (32.2 - 35.7 %) 31.8 L RDW (12.1 - 15.2 %) 14.6 Plt Count (129 - 368 K/MM3) 286 MPV (7.4 - 10.4 fl) 9.8 Neut % (Auto) (43 - 75 %) 71.9 Lymph % (Auto) (14 - 44 %) 15.4 [place] % (Auto) (4 - 13 %) 8.8 Eos % (Auto) (0 - 6 %) 2.4 Baso % (Auto) (0 - 2 %) 0.5 Neut # (Auto) (2.0 - 7.6 K/mm3) 5.60 Lymph # (Auto) (1.0 - 3.8 K/mm3) 1.20 [place] # (Auto) (0.1 - 0.8 K/mm3) 0.69 Eos # (Auto) (0.0 - 0.2 K/mm3) 0.19 Baso # (Auto) (0.0 - 0.2 K/mm3) 0.04 Immature Gran % (0.0 - 2.0 %) 1.0 Nucleated RBC % (0 - 1.0 %) 0.0 Nucleated RBCs # (Man) (0.0 - 0.1 K/mm3) 0.00 Radiology data: Recent Impressions: RADIOLOGY - XR CHEST 1V 12/11 0550 Report Impression - Status: SIGNED Entered: 12/11/2018 0700 IMPRESSION: Extensive subcutaneous emphysema. Stable right c hest tube. No gross pneumothorax, though assessment is significantly limited. Impression By: [email or web address] - Obed Villasenor MD Diagnosis, Assessment Plan Free Text A P: This is a 63 Y/F with right lung nodules S/p Robotic assisted excision of right upper lob e lung nodule and excision of blebs Extensive subq emphysema-s/p CT removal and re-i nsertion CT to suction-no air leak today Nasal congestion-will add flonase Hypokalemia- replaced Caseating granuloma/fungal-final pathology-ID fo llowinevie Encourage IS and ambulation Will cont. Monitor closely Plan discussed with: patient, collaborating MD ( Dr. Rivera) at 1036 at 1238 RPT #:[id number] END OF REPORT 2018-12-10 16:27:00-00:00 [facility] ([facility]) Hospitalist Progress Note REPORT#:[id number] REPORT STATUS: Signed DATE:12/10/18 TIME: 1627 PATIENT: MOISÉS CANNON UNIT #: [id number] ROOM/BED: [address] : 55 AGE: 63 SEX: F ATTEND: Augustus Rivera MD ADM AUTHOR: Ana Haas MD * ALL edits or amendments must be made on the [employer]/computer document * Subjective Chief Complaint: swelling is still persistent. Left eye is less s wollen today. Review of Systems Constitutional: Reports: fatigue, generalized weakness. Denies: fever. Eyes: Reports: swelling. ENT: Denies: sore throat. Respiratory: Reports: SOB. Cardiovascular: Reports: edema. GI: Denies: diarrhea, vomiting. Neuro: Denies: confusion, dizziness. Systems reviewed negative: Allergy/Immun , Constitutional, Endocrine, ENT, Eyes , GI, , Heme, Musculoskeletal, Neuro, Psych, S kin Objective General VS/I O: Vital Signs: Date Time Temp Pulse Resp B/P B/P Pulse O2 O2 F low FiO2 Mean Ox Delivery Rate 12/10 1313 102 23 129/79 95 12/10 1213 95 29 121/65 96 12/10 1134 98.0 12/10 1130 92 25 115/69 94 12/10 1013 92 16 112/72 96 12/10 0913 94 33 111/74 12/10 0806 81 31 129/84 96 12/10 0800 95 12/10 0748 Nasal 4.566671 cannula 12/10 0745 97.8 12/10 0715 94 Nasal 4.281813 36 cannula 12/10 0713 82 35 119/77 12/10 0700 94 12/10 0613 84 20 125/88 101 97 12/10 0513 82 30 118/73 91 97 12/10 0423 79 17 117/73 89 96 12/10 0400 98.2 Nasal 2.007931 cannula 12/10 0313 78 39 134/70 98 100 04/ 0213 80 26 145/65 93 92 04/ 0100 79 33 131/96 108 92 04/ 0030 78 20 139/71 98 97 04/ 0000 98.2 Nasal 2.961960 cannula 04 0000 82 17 140/73 101 94 12/09 2330 94 28 126/91 105 95 12/09 2300 88 23 146/76 102 95 12/09 2230 88 17 145/77 105 96 12/09 2200 101 21 145/71 100 94 12/09 2130 102 23 131/83 99 96 12/090 107 35 148/85 111 96 12/09 2030 103 19 154/72 100 95 12/10 1999 97.0 Nasal 2.027007 cannula 12/10 1999 Nasal 2.164562 cannula 12/10 1999 102 19 135/77 100 97 12/09 1900 100 12 121/75 91 100 12/09 1837 100 Nasal 4.848570 36 cannula 12/09 1830 103 27 136/75 101 93 12/09 1800 102 14 132/71 97 97 12/09 1730 103 12 130/94 106 99 12/09 1700 99 14 130/78 97 92 24 hour I O ending at 0700: 12/10 0700 12/09 1900 Intake Total 450 280 Output Total 1300 640 Balance -850 -360 Intake, Oral 450 280 Output, Urine 1300 640 Physical Exam Head/Eyes: abnormal eyelids, abnormal periorbita l ENT: normal dentition, normal ear left, normal e ar right, normal nose, normal pharynx, normal sinus Neck: full range of motion, non-tender, normal thyroid, supple/no meningismus, no bruit/NL carotids, no JVD, no masses or swell ing Cardiovascular: normal capillary refill, regular rate rhythm Respiratory: aerating well, clear to auscultatio n Abdomen: distended, tenderness, normal bowel yanelis nds Extremities: edema, moves all, normal capillary refill Musculoskeletal: normal inspection Neuro/PRODUCTION PLANNER SCHEDULER: alert, oriented X 3 Skin: subq emphysema (face, neck and chest ), dr reyes, intact Wound/incision: Site Condition: dressing clean dry, dressing in tact Results Findings/Data: Laboratory Tests 12/10 0500 Chemistry Sodium (137 - 145 MMOL/L) 131 L Potassium (3.5 - 5.1 MMOL/L) 3.8 Chloride (98 - 107 MMOL/L) 92 L Carbon Dioxide (22 - 30 MMOL/L) 28 Anion Gap (14 - 24 MMOL/L) 15 BUN (7 - 17 MG/DL) 9 Creatinine (0.52 - 1.04 MG/DL) 0.40 L Glomerular Filtr Rate > 60 Glucose (74 - 106 MG/DL) 98 Calcium (8.4 - 10.2 MG/DL) 8.7 Laboratory Tests 12/10 0500 Hematology WBC (3.8 - 9.8 K/MM3) 7.3 RBC (3.58 - 4.97 M/MM3) 3.99 Hgb (11.2 - 14.9 G/DL) 11.4 Hct (33.2 - 43.5 %) 35.9 MCV (80.7 - 99.1 fL) 90 MCH (27.0 - 34.1 pg) 28.6 MCHC (32.2 - 35.7 %) 31.8 L RDW (12.1 - 15.2 %) 14.3 Plt Count (129 - 368 K/MM3) 293 MPV (7.4 - 10.4 fl) 9.7 Neut % (Auto) (43 - 75 %) 71.2 Lymph % (Auto) (14 - 44 %) 15.3 [place] % (Auto) (4 - 13 %) 9.8 Eos % (Auto) (0 - 6 %) 2.3 Baso % (Auto) (0 - 2 %) 0.3 Neut # (Auto) (2.0 - 7.6 K/mm3) 5.21 Lymph # (Auto) (1.0 - 3.8 K/mm3) 1.12 [place] # (Auto) (0.1 - 0.8 K/mm3) 0.72 Eos # (Auto) (0.0 - 0.2 K/mm3) 0.17 Baso # (Auto) (0.0 - 0.2 K/mm3) 0.02 Immature Gran % (0.0 - 2.0 %) 1.1 Nucleated RBC % (0 - 1.0 %) 0.0 Nucleated RBCs # (Man) (0.0 - 0.1 K/mm3) 0.00 Treatment Prophylaxis Treatment Prophylaxis William documentation: The data below has been impo rted from nursing documentation. Any exceptions have been noted below under Provider comments. _ Nursing Documentation Date william inserted: 11/30/18 Date william discontinued: 12/01/18 _ Provider comments: [] Diagnosis, Assessment Plan Free Text DxA P Notes Free text DxA P notes: Assesment: -RUL nodule/blebs s/p excision -Dyspnea on exertion -Extensive subcutaneous emphysema Plan: -Continue oxygen as needed -cont nebs , pulmicort -Monitor chest tube output; Management per CT barth rgeon -Continue home meds as appropriate -pain control -DVT prophylaxis - SCD 12/02 cont chest tube cont oxygen, nebs management per [facility] dvt ppx: scd 12/03 pt is stable, transfer out icu cont chest tube cont cont management 12/04 transferred back to ICU bc of sq emphysema- CV s x following Chest Xray shows worsening s ubcutaneous emphysema otherwise stable appearance of the chest Cont Chest tube Cont current management on clear liquid diet. DVT prophylaxis: SCD 12/05 -Chest Xray shows worsening subcutaneous emphysema and development of bibasilar atelectasis and questionable small pneumomediast inum. 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 -Encourage IS and ambulation -Granddaughter at bedside -Caseating granuloma/fungal-final pathology-ID c onsulted -Cont Chest tube -Cont current management -DVT prophylasix-lovenox 12/07- cxr same. - pt NPO for possible OR today by dr Rivera - will continue with current supportive care. 12/08- breathing comfortably with mask. able to s it at the edge of the bed. - ct in place. CV surgery following. - will continue with current mx. 12/09 -CT in place continue to monitor -Continue current mx -Continue to ambulate 12/10 -CT in place continue to monitor -Continue current mx -Continue to ambulate Quality Medications Current medication review: I attest that the foregoing medication list in [facility] medical record is true, accurate, and complete to the best of my knowled ge. Electronically Signed by Ana Haas MD on 11/27 at 1305 RPT #:[id number] END OF REPORT 2018-12-10 10:37:00-00:00 [facility] ([facility]) Cardiovascular Surgery Prog REPORT#:[id number] REPORT STATUS: Signed DATE:12/10/18 TIME: 1037 PATIENT: MOISÉS CANNON UNIT #: [id number] ROOM/BED: [address] : [birth year] AGE: 63 SEX: F ATTEND: Augustus Rivera MD ADM AUTHOR: Oumou Stanley NP * ALL edits or amendments must be made on the el [employer]/computer document * General Post-op: day 2 Status post: RIGHT CHEST TUBE INSERTION Subjective Patient reports: No: complaints, abdominal pain, chest pain, naus ea, vomiting. Comments: Seen siting on the chair at bedside Denies CP or SOB Able to slighlty open left eye Extensive Subq emphysema Review of Systems Constitutional: Denies: chills, fever, generalized weakness. Respiratory: Denies: DIAMOND (dyspnea on exertion), SOB. Cardiovascular: Denies: chest pain, DIAMOND (dyspnea on exertion), e cecily, orthopnea. Objective Physical Exam VS/I O: Last Documented: Result Date Time B/P 111/74 12/10 912 Pulse 94 12/10 912 Resp 33 12/10 09 Pulse Ox 96 12/10 0806 O2 Delivery Nasal cannula 12/10 0748 O2 Flow Rate 4.985798 12/10 0748 Temp 97.8 12/10 0745 FiO2 36 12/10 0715 B/P Mean 101 12/10 0613 24 hour I O ending at 0700: 12/10 0700 12/09 1900 Intake Total 450 280 Output Total 1300 640 Balance -850 -360 Intake, Oral 450 280 Output, Urine 1300 640 Medications: Active Meds + DC'd Last 24 Hrs Ipratropium Freedom 0.5 MG RTQ4H NEB (CKD) Levalbuterol HCl 0.63 MG RTQ4H NEB Atorvastatin Calcium 40 MG BEDTIME PO Citalopram Hydrobromide 20 MG BEDTIME PO Docusate Sodium 100 MG BID PO Metoprolol Tartrate 25 MG BEDTIME PO Pantoprazole 20 MG BEDTIME PO Zolpidem Tartrate 10 MG BEDTIME PO Acetaminophen 650 MG Q4H PRN PRN PO Acetaminophen 650 MG Q4H PRN PRN RECTAL Bisacodyl 5 MG DAILY PRN PRN PO Bisacodyl 10 MG DAILY PRN PRN RECTAL Hydrocodone Bitart/Acetaminophen 1 TAB Q4H PRN P RN PO Hydrocodone Bitart/Acetaminophen 2 TAB Q4H PRN P RN PO Magnesium Hydroxide 30 ML DAILY PRN PRN PO Meperidine HCl 25 MG Q4H PRN PRN IM Naloxone HCl 0.2 MG ASDIR PRN IV Ondansetron HCl 4 MG Q4H PRN PRN IV General appearance: alert, awake, oriented, no a cute distress Wound/incision: Location: right thoracotomy, right chest tube i nsertion Site condition: ecchymosis (right chest tube si te), dressing clean dry, dressing intact, no drainage, CT to suction no a ir leak HEENT: bilateral eye swollen and closed Neck: tenderness, neck swelling Cardiovascular: ectopy (occational PVCs) , BP/pulses equal bilat., normal heart sounds, regular rate rhythm Respiratory: aerating well, clear to auscultatio n, symmetric expansion, no distress, CT to suction no aie leak subq emphyse ma Abdomen: distended (mild), tenderness, normal priscilla wel sounds Genitourinary: no william Extremities: moves all, BUE swelling-subq emphys candice Neuro/PRODUCTION PLANNER SCHEDULER: alert, oriented X 3 Skin: subq enphysema Results Findings/Data: Laboratory Tests 12/10 0500 Chemistry Sodium (137 - 145 MMOL/L) 131 L Potassium (3.5 - 5.1 MMOL/L) 3.8 Chloride (98 - 107 MMOL/L) 92 L Carbon Dioxide (22 - 30 MMOL/L) 28 Anion Gap (14 - 24 MMOL/L) 15 BUN (7 - 17 MG/DL) 9 Creatinine (0.52 - 1.04 MG/DL) 0.40 L Glomerular Filtr Rate > 60 Glucose (74 - 106 MG/DL) 98 Calcium (8.4 - 10.2 MG/DL) 8.7 Laboratory Tests 12/10 0500 Hematology WBC (3.8 - 9.8 K/MM3) 7.3 RBC (3.58 - 4.97 M/MM3) 3.99 Hgb (11.2 - 14.9 G/DL) 11.4 Hct (33.2 - 43.5 %) 35.9 MCV (80.7 - 99.1 fL) 90 MCH (27.0 - 34.1 pg) 28.6 MCHC (32.2 - 35.7 %) 31.8 L RDW (12.1 - 15.2 %) 14.3 Plt Count (129 - 368 K/MM3) 293 MPV (7.4 - 10.4 fl) 9.7 Neut % (Auto) (43 - 75 %) 71.2 Lymph % (Auto) (14 - 44 %) 15.3 [place] % (Auto) (4 - 13 %) 9.8 Eos % (Auto) (0 - 6 %) 2.3 Baso % (Auto) (0 - 2 %) 0.3 Neut # (Auto) (2.0 - 7.6 K/mm3) 5.21 Lymph # (Auto) (1.0 - 3.8 K/mm3) 1.12 [place] # (Auto) (0.1 - 0.8 K/mm3) 0.72 Eos # (Auto) (0.0 - 0.2 K/mm3) 0.17 Baso # (Auto) (0.0 - 0.2 K/mm3) 0.02 Immature Gran % (0.0 - 2.0 %) 1.1 Nucleated RBC % (0 - 1.0 %) 0.0 Nucleated RBCs # (Man) (0.0 - 0.1 K/mm3) 0.00 Diagnosis, Assessment Plan Free Text A P: This is a 63 Y/F with right lung nodules S/p Robotic assisted excision of right upper lob e lung nodule and excision of blebs Extensive subq emphysema-s/p CT removal and re-i nsertion CT to suction-no air leak today Caseating granuloma/fungal-final pathology-ID fo llowing Encourage IS and ambulation Will cont. Monitor closely Plan discussed with: patient, collaborating MD ( Dr. Rivera) at 1045 RPT #:[id number] END OF REPORT 2018-12-10 10:37:00-00:00 [facility] ([facility] Cardiovascular Surgery Prog REPORT#:[id number] REPORT STATUS: Signed DATE:12/10/18 TIME: 1037 PATIENT: MOISÉS CANNON UNIT #: [id number] ROOM/BED: [address] : [birth year] AGE: 63 SEX: F ATTEND: Augustus Rivera MD ADM AUTHOR: Oumou Stanley NP * ALL edits or amendments must be made on the [employer]/computer document * General Post-op: day 2 Status post: RIGHT CHEST TUBE INSERTION Subjective Patient reports: No: complaints, abdominal pain, chest pain, naus ea, vomiting. Comments: Seen siting on the chair at bedside Denies CP or SOB Able to slighlty open left eye Extensive Subq emphysema Review of Systems Constitutional: Denies: chills, fever, generalized weakness. Respiratory: Denies: DIAMOND (dyspnea on exertion), SOB. Cardiovascular: Denies: chest pain, DIAMOND (dyspnea on exertion), e ceicly, orthopnea. Objective Physical Exam VS/I O: Last Documented: Result Date Time B/P 111/74 12/10 912 Pulse 94 12/10 09 Resp 33 12/10 09 Pulse Ox 96 12/10 0806 O2 Delivery Nasal cannula 12/10 07 O2 Flow Rate 4.132038 12/10 0748 Temp 97.8 12/10 0745 FiO2 36 12/10 0715 B/P Mean 101 12/10 0613 24 hour I O ending at 0700: 12/10 0700 12/09 1900 Intake Total 450 280 Output Total 1300 640 Balance -850 -360 Intake, Oral 450 280 Output, Urine 1300 640 Medications: Active Meds + DC'd Last 24 Hrs Ipratropium Freedom 0.5 MG RTQ4H NEB (CKD) Levalbuterol HCl 0.63 MG RTQ4H NEB Atorvastatin Calcium 40 MG BEDTIME PO Citalopram Hydrobromide 20 MG BEDTIME PO Docusate Sodium 100 MG BID PO Metoprolol Tartrate 25 MG BEDTIME PO Pantoprazole 20 MG BEDTIME PO Zolpidem Tartrate 10 MG BEDTIME PO Acetaminophen 650 MG Q4H PRN PRN PO Acetaminophen 650 MG Q4H PRN PRN RECTAL Bisacodyl 5 MG DAILY PRN PRN PO Bisacodyl 10 MG DAILY PRN PRN RECTAL Hydrocodone Bitart/Acetaminophen 1 TAB Q4H PRN P RN PO Hydrocodone Bitart/Acetaminophen 2 TAB Q4H PRN P RN PO Magnesium Hydroxide 30 ML DAILY PRN PRN PO Meperidine HCl 25 MG Q4H PRN PRN IM Naloxone HCl 0.2 MG ASDIR PRN IV Ondansetron HCl 4 MG Q4H PRN PRN IV General appearance: alert, awake, oriented, no a cute distress Wound/incision: Location: right thoracotomy, right chest tube i nsertion Site condition: ecchymosis (right chest tube si te), dressing clean dry, dressing intact, no drainage, CT to suction no a ir leak HEENT: bilateral eye swollen and closed Neck: tenderness, neck swelling Cardiovascular: ectopy (occational PVCs) , BP/pulses equal bilat., normal heart sounds, regular rate rhythm Respiratory: aerating well, clear to auscultatio n, symmetric expansion, no distress, CT to suction no aie leak subq emphyse ma Abdomen: distended (mild), tenderness, normal priscilla wel sounds Genitourinary: no william Extremities: moves all, BUE swelling-subq emphys candice Neuro/PRODUCTION PLANNER SCHEDULER: alert, oriented X 3 Skin: subq enphysema Results Findings/Data: Laboratory Tests 12/10 0500 Chemistry Sodium (137 - 145 MMOL/L) 131 L Potassium (3.5 - 5.1 MMOL/L) 3.8 Chloride (98 - 107 MMOL/L) 92 L Carbon Dioxide (22 - 30 MMOL/L) 28 Anion Gap (14 - 24 MMOL/L) 15 BUN (7 - 17 MG/DL) 9 Creatinine (0.52 - 1.04 MG/DL) 0.40 L Glomerular Filtr Rate > 60 Glucose (74 - 106 MG/DL) 98 Calcium (8.4 - 10.2 MG/DL) 8.7 Laboratory Tests 12/10 0500 Hematology WBC (3.8 - 9.8 K/MM3) 7.3 RBC (3.58 - 4.97 M/MM3) 3.99 Hgb (11.2 - 14.9 G/DL) 11.4 Hct (33.2 - 43.5 %) 35.9 MCV (80.7 - 99.1 fL) 90 MCH (27.0 - 34.1 pg) 28.6 MCHC (32.2 - 35.7 %) 31.8 L RDW (12.1 - 15.2 %) 14.3 Plt Count (129 - 368 K/MM3) 293 MPV (7.4 - 10.4 fl) 9.7 Neut % (Auto) (43 - 75 %) 71.2 Lymph % (Auto) (14 - 44 %) 15.3 [place] % (Auto) (4 - 13 %) 9.8 Eos % (Auto) (0 - 6 %) 2.3 Baso % (Auto) (0 - 2 %) 0.3 Neut # (Auto) (2.0 - 7.6 K/mm3) 5.21 Lymph # (Auto) (1.0 - 3.8 K/mm3) 1.12 [place] # (Auto) (0.1 - 0.8 K/mm3) 0.72 Eos # (Auto) (0.0 - 0.2 K/mm3) 0.17 Baso # (Auto) (0.0 - 0.2 K/mm3) 0.02 Immature Gran % (0.0 - 2.0 %) 1.1 Nucleated RBC % (0 - 1.0 %) 0.0 Nucleated RBCs # (Man) (0.0 - 0.1 K/mm3) 0.00 Diagnosis, Assessment Plan Free Text A P: This is a 63 Y/F with right lung nodules S/p Robotic assisted excision of right upper lob e lung nodule and excision of blebs Extensive subq emphysema-s/p CT removal and re-i nsertion CT to suction-no air leak today Caseating granuloma/fungal-final pathology-ID jonn cabezas Encourage IS and ambulation Will cont. Monitor closely Plan discussed with: patient, collaborating MD ( Dr. Rivera) at 1045 at 1237 RPT #:[id number] END OF REPORT 2018-12-10 07:50:00-00:00 [facility] ([facility] Cardiology Progress Note REPORT#:[id number] REPORT STATUS: Signed DATE:12/10/18 TIME: 0750 PATIENT: MOISÉS CANNON UNIT #: [id number] ROOM/BED: [address] : [birth year] AGE: 63 SEX: F ATTEND: Augustus Rivera MD ADM AUTHOR: Migeul Chawla MD * ALL edits or amendments must be made on the [employer]/computer document * Subjective Chief Complaint: no CP, worsening SOB Patient reports: No: chest pain, palpitations, shortness of breat h. Objective General VS/I O: 24 hour I O ending at 0700: 12/10 0700 12/09 1900 Intake Total 450 280 Output Total 1300 640 Balance -850 -360 Intake, Oral 450 280 Output, Urine 1300 640 Vital Signs: Date Time Temp Pulse Resp B/P B/P Pulse O2 O2 Flow FiO2 Mean Ox Delivery Rate 12/10 0745 97.8 12/10 0715 94 Nasal 4.441275 36 cannula 12/10 0613 84 20 125/88 101 97 12/10 0513 82 30 118/73 91 97 12/10 0423 79 17 117/73 89 96 12/10 0400 98.2 Nasal 2.895712 cannula 12/10 0313 78 39 134/70 98 100 12/10 0213 80 26 145/65 93 92 12/10 0100 79 33 131/96 108 92 04/ 0030 78 20 139/71 98 97 04/ 0000 98.2 Nasal 2.587679 cannula 04/ 0000 82 17 140/73 101 94 12/09 2330 94 28 126/91 105 95 12/09 2300 88 23 146/76 102 95 12/09 2230 88 17 145/77 105 96 12/09 2200 101 21 145/71 100 94 12/09 2130 102 23 131/83 99 96 12/090 107 35 148/85 111 96 12/09 2029 103 19 154/72 100 95 12/10 1999 97.0 Nasal 2.530029 cannula 12/10 1999 Nasal 2.622814 cannula 12/10 1999 102 19 135/77 100 97 12/09 1900 100 12 121/75 91 100 12/09 1837 100 Nasal 4.854093 36 cannula 12/09 1830 103 27 136/75 101 93 12/09 1800 102 14 132/71 97 97 12/09 1730 103 12 130/94 106 99 12/09 1700 99 14 130/78 97 92 12/09 1630 101 13 131/75 96 92 12/09 1615 97.8 12/09 1600 102 12 136/94 110 96 12/09 1530 104 16 113/76 90 90 12/09 1500 102 14 144/74 101 96 12/09 1433 102 17 148/83 110 12/09 1400 97 20 142/76 102 97 12/09 1330 97 17 145/79 106 94 12/09 1230 93 22 131/71 95 92 12/09 1201 96 19 95 12/09 1200 99 133/90 106 96 12/09 1155 97.9 12/09 1154 163/70 92 97 12/09 1100 93 12 96 12/09 1000 93 14 90 12/09 0909 90 13 117/59 82 87 12/09 0900 92 13 86 12/09 0801 Nasal 4.023012 cannula 12/09 0800 87 14 88 12/09 0757 97.0 Status post: Robotic assisted excision of right upper lobe pancho ng nodule. Staple excision of blebs right upper lobe of lung. Physical Exam General appearance: alert, awake, oriented Head/Eyes: atraumatic, Eyelids subcutaneous emph ysema. ENT: moist mucosal membranes Neck: supple/no meningismus, no bruit/NL carotids, no JVD, no masses or swelling Cardiovascular: CV assessment: regular rate and rhythm, BP puls es = bilaterally, normal heart sounds, no murmur Respiratory: decreased breath sounds, Few crackl es. Lower extremity: LE assessment: no edema, 2+ peripheral pulses Musculoskeletal: full range of motion Neuro/PRODUCTION PLANNER SCHEDULER: alert, oriented X 3, CN II-XII intact , no motor deficits Skin: abnormal color (S/Q emphysema) Psychiatry: normal affect, normal judgment/insig ht, normal mood, no hallucinations Results Findings/Data: Laboratory Tests 12/10 499 Chemistry Sodium (137 - 145 MMOL/L) 131 L Potassium (3.5 - 5.1 MMOL/L) 3.8 Chloride (98 - 107 MMOL/L) 92 L Carbon Dioxide (22 - 30 MMOL/L) 28 Anion Gap (14 - 24 MMOL/L) 15 BUN (7 - 17 MG/DL) 9 Creatinine (0.52 - 1.04 MG/DL) 0.40 L Glomerular Filtr Rate > 60 Glucose (74 - 106 MG/DL) 98 Calcium (8.4 - 10.2 MG/DL) 8.7 Laboratory Tests 12/10 050 Hematology WBC (3.8 - 9.8 K/MM3) 7.3 RBC (3.58 - 4.97 M/MM3) 3.99 Hgb (11.2 - 14.9 G/DL) 11.4 Hct (33.2 - 43.5 %) 35.9 MCV (80.7 - 99.1 fL) 90 MCH (27.0 - 34.1 pg) 28.6 MCHC (32.2 - 35.7 %) 31.8 L RDW (12.1 - 15.2 %) 14.3 Plt Count (129 - 368 K/MM3) 293 MPV (7.4 - 10.4 fl) 9.7 Neut % (Auto) (43 - 75 %) 71.2 Lymph % (Auto) (14 - 44 %) 15.3 [place] % (Auto) (4 - 13 %) 9.8 Eos % (Auto) (0 - 6 %) 2.3 Baso % (Auto) (0 - 2 %) 0.3 Neut # (Auto) (2.0 - 7.6 K/mm3) 5.21 Lymph # (Auto) (1.0 - 3.8 K/mm3) 1.12 [place] # (Auto) (0.1 - 0.8 K/mm3) 0.72 Eos # (Auto) (0.0 - 0.2 K/mm3) 0.17 Baso # (Auto) (0.0 - 0.2 K/mm3) 0.02 Immature Gran % (0.0 - 2.0 %) 1.1 Nucleated RBC % (0 - 1.0 %) 0.0 Nucleated RBCs # (Man) (0.0 - 0.1 K/mm3) 0.00 Diagnosis, Assessment Plan Free Text DxA P Notes Free Text DxA P Notes: IMPRESSION: S/P Robotic assisted excision of right upper lo be lung nodule. Staple excision of blebs right upper lobe of lung. R PTX - subcutaneous emphysema CAD-stable HTN HLP PVC's PAD AAA S/P EVAR COPD RECOMMEND: Continue current medical rx. Ambulate at 1813 RPT #:[id number] END OF REPORT 2018-12-09 16:51:00-00:00 [facility] ([facility]) Hospitalist Progress Note REPORT#:[id number] REPORT STATUS: Signed DATE:12/09/18 TIME: 1650 PATIENT: MOISÉS CANNON UNIT #: [id number] ROOM/BED: [address] : [birth year] AGE: 63 SEX: F ATTEND: Augustus Rivera MD ADM AUTHOR: Ana Haas MD * ALL edits or amendments must be made on the el [employer]/computer document * Subjective Chief Complaint: swelling is still persistent . Left eye is less swollen today. Pain at chest tube site. Review of Systems Constitutional: Reports: fatigue, generalized weakness. Denies: fever. Eyes: Reports: swelling. ENT: Denies: sore throat. Respiratory: Reports: SOB. Cardiovascular: Reports: edema. GI: Denies: diarrhea, vomiting. Neuro: Denies: confusion, dizziness. Objective General VS/I O: Vital Signs: Date Time Temp Pulse Resp B/P B/P Pulse O2 O2 F low FiO2 Mean Ox Delivery Rate 12/09 1615 97.8 12/09 1600 102 12 136/94 110 96 12/09 1530 104 16 113/76 90 90 12/09 1500 102 14 144/74 101 96 12/09 1433 102 17 148/83 110 12/09 1400 97 20 142/76 102 97 12/09 1330 97 17 145/79 106 94 12/09 1230 93 22 131/71 95 92 12/09 1201 96 19 95 12/09 1200 99 133/90 106 96 12/09 1155 97.9 12/09 1154 163/70 92 97 12/09 1100 93 12 96 12/09 1000 93 14 90 12/09 0909 90 13 117/59 82 87 12/09 0900 92 13 86 12/09 0801 Nasal 4.913765 cannula 12/09 0800 87 14 88 12/09 0757 97.0 12/09 0701 80 15 141/76 102 100 12/09 0645 94 Nasal 4.591963 36 cannula 12/09 0643 84 16 168/71 102 96 12/09 0519 74 9 127/68 89 98 12/09 0419 71 11 127/73 95 98 12/09 0400 97.7 Simple 2.836679 mask 12/09 0325 71 11 130/81 95 99 12/09 0219 74 11 133/64 92 89 12/09 0127 73 11 131/83 100 90 12/09 0019 72 11 147/93 112 95 12/09 0000 97.4 Nasal 2.131236 cannula 12/08 2319 78 11 135/90 108 100 12/08 2200 108 20 154/80 109 94 12/08 2134 145/89 110 12/08 2100 92 36 140/84 107 94 12/08 2030 92 16 143/80 102 90 12/09 1999 98.3 Nasal 2.565356 cannula 12/09 1999 Nasal 2.681142 cannula 12/09 1999 90 15 120/79 95 88 12/08 1937 95 18 128/84 101 91 12/08 1900 94 30 109/75 86 93 12/08 1837 100 Nasal 4.150655 36 cannula 12/08 1830 95 23 106/77 88 97 12/08 1800 82 15 124/78 96 97 12/08 1730 86 17 117/63 86 93 12/08 1700 83 13 140/83 106 96 24 hour I O ending at 0700: 12/09 0700 12/08 1900 Intake Total 500 280 Output Total 300 105 Balance 200 175 Intake, Oral 500 280 Number Voids 2 Output, Chest 5 Tube Drainage Output, Urine 300 100 Physical Exam Head/Eyes: abnormal eyelids, abnormal periorbita l ENT: normal dentition, normal ear left, normal e ar right, normal nose, normal pharynx, normal sinus Neck: full range of motion, non-tender, normal thyroid, supple/no meningismus, no bruit/NL carotids, no JVD, no masses or swell ing Cardiovascular: normal capillary refill, regular rate rhythm Respiratory: aerating well, clear to auscultatio n Abdomen: distended, tenderness, normal bowel yanelis nds Extremities: edema, moves all, normal capillary refill Musculoskeletal: normal inspection Neuro/PRODUCTION PLANNER SCHEDULER: alert, oriented X 3 Skin: subq emphysema (face, neck and chest ), dr amy, intact Wound/incision: Site Condition: dressing clean dry, dressing in tact Results Findings/Data: Laboratory Tests 12/09 0536 Chemistry Sodium (137 - 145 MMOL/L) 129 L Potassium (3.5 - 5.1 MMOL/L) 4.2 Chloride (98 - 107 MMOL/L) 97 L Carbon Dioxide (22 - 30 MMOL/L) 27 BUN (7 - 17 MG/DL) 17 Creatinine (0.52 - 1.04 MG/DL) 0.50 L Glomerular Filtr Rate > 60 Glucose (74 - 106 MG/DL) 92 Calcium (8.4 - 10.2 MG/DL) 8.5 Laboratory Tests 12/09 0536 Hematology WBC (3.8 - 9.8 K/MM3) 7.9 RBC (3.58 - 4.97 M/MM3) 3.89 Hgb (11.2 - 14.9 G/DL) 11.2 Hct (33.2 - 43.5 %) 35.5 MCV (80.7 - 99.1 fL) 91 MCH (27.0 - 34.1 pg) 28.8 MCHC (32.2 - 35.7 %) 31.5 L RDW (12.1 - 15.2 %) 14.3 Plt Count (129 - 368 K/MM3) 274 MPV (7.4 - 10.4 fl) 9.4 Neut % (Auto) (43 - 75 %) 74.1 Lymph % (Auto) (14 - 44 %) 14.1 [place] % (Auto) (4 - 13 %) 8.6 Eos % (Auto) (0 - 6 %) 2.0 Baso % (Auto) (0 - 2 %) 0.3 Neut # (Auto) (2.0 - 7.6 K/mm3) 5.86 Lymph # (Auto) (1.0 - 3.8 K/mm3) 1.11 [place] # (Auto) (0.1 - 0.8 K/mm3) 0.68 Eos # (Auto) (0.0 - 0.2 K/mm3) 0.16 Baso # (Auto) (0.0 - 0.2 K/mm3) 0.02 Immature Gran % (0.0 - 2.0 %) 0.9 Nucleated RBC % (0 - 1.0 %) 0.0 Nucleated RBCs # (Man) (0.0 - 0.1 K/mm3) 0.00 Treatment Prophylaxis Treatment Prophylaxis William documentation: The data below has been impo rted from nursing documentation. Any exceptions have been noted below under Provider comments. _ Nursing Documentation Date william inserted: 11/30/18 Date william discontinued: 12/01/18 _ Provider comments: [] Diagnosis, Assessment Plan Free Text DxA P Notes Free text DxA P notes: Assesment: -RUL nodule/blebs s/p excision -Dyspnea on exertion -Extensive subcutaneous emphysema Plan: -Continue oxygen as needed -cont nebs , pulmicort -Monitor chest tube output; Management per CT barth rgeon -Continue home meds as appropriate -pain control -DVT prophylaxis - SCD 12/02 cont chest tube cont oxygen, nebs management per [facility] dvt ppx: scd 12/03 pt is stable, transfer out icu cont chest tube cont cont management 12/04 transferred back to ICU bc of sq emphysema- CV s x following Chest Xray shows worsening s ubcutaneous emphysema otherwise stable appearance of the chest Cont Chest tube Cont current management on clear liquid diet. DVT prophylaxis: SCD 12/05 -Chest Xray shows worsening subcutaneous emphysema and development of bibasilar atelectasis and questionable small pneumomediast inum. 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 -Encourage IS and ambulation -Granddaughter at bedside -Caseating granuloma/fungal-final pathology-ID c onsulted -Cont Chest tube -Cont current management -DVT prophylasix-lovenox 12/07- cxr same. - pt NPO for possible OR today by dr Rivera - will continue with current supportive care. 12/08- breathing comfortably with mask. able to s it at the edge of the bed. - ct in place. CV surgery following. - will continue with current mx. 12/09 -CT in place continue to monitor -Continue current mx -Continue to ambulate Quality Medications Current medication review: I attest that the foregoing medication list in t he medical record is true, accurate, and complete to the best of my knowled ge. Electronically Signed by Ana Haas MD on 11/27 at 1304 RPT #:[id number] END OF REPORT 2018-12-09 11:15:00-00:00 [facility] ([facility]) Cardiology Progress Note REPORT#:[id number] REPORT STATUS: Signed DATE:12/09/18 TIME: 111 PATIENT: MOISÉS CANNON UNIT #: [id number] ROOM/BED: [facility]04-A : 55 AGE: 63 SEX: F ATTEND: Augustus Rivera MD ADM AUTHOR: Miguel Chawla MD * ALL edits or amendments must be made on the Digital [employer] document * Subjective Chief Complaint: no CP, worsening SOB Patient reports: No: chest pain, palpitations, shortness of breat h. Objective General VS/I O: 24 hour I O ending at 0700: 12/09 0700 12/08 1900 Intake Total 500 280 Output Total 300 105 Balance 200 175 Intake, Oral 500 280 Number Voids 2 Output, Chest 5 Tube Drainage Output, Urine 300 100 Vital Signs: Date Time Temp Pulse Resp B/P B/P Pulse O2 O2 F low FiO2 Mean Ox Delivery Rate 12/09 0801 Nasal 4.707047 cannula 12/09 0757 97.0 12/09 0701 80 15 141/76 102 100 12/09 0645 94 Nasal 4.203185 36 cannula 12/09 0643 84 16 168/71 102 96 12/09 0519 74 9 127/68 89 98 12/09 0419 71 11 127/73 95 98 12/09 0400 97.7 Simple 2.416076 mask 12/09 0325 71 11 130/81 95 99 12/09 0219 74 11 133/64 92 89 12/09 0127 73 11 131/83 100 90 12/09 0019 72 11 147/93 112 95 12/09 0000 97.4 Nasal 2.308331 cannula 12/08 2319 78 11 135/90 108 100 12/08 2200 108 20 154/80 109 94 12/08 2134 145/89 110 12/08 2100 92 36 140/84 107 94 12/08 2030 92 16 143/80 102 90 12/09 1999 98.3 Nasal 2.587580 cannula 12/09 1999 Nasal 2.492692 cannula 12/09 1999 90 15 120/79 95 88 12/08 1937 95 18 128/84 101 91 12/08 1900 94 30 109/75 86 93 12/08 1837 100 Nasal 4.329827 36 cannula 12/08 1830 95 23 106/77 88 97 12/08 1800 82 15 124/78 96 97 12/08 1730 86 17 117/63 86 93 12/08 1700 83 13 140/83 106 96 12/08 1646 97.7 12/08 1639 87 16 132/98 112 98 12/08 1600 85 16 117/55 76 96 12/08 1551 144/95 113 97 12/08 1530 83 13 134/76 93 12/08 1500 100 12/08 1430 82 12 119/77 94 12/08 1400 86 11 120/64 85 12/08 1330 86 11 130/70 92 90 12/08 1259 85 16 105/64 77 89 12/08 1241 97.8 12/08 1231 88 15 107/64 81 91 12/08 1216 91 19 127/77 98 93 12/08 1146 86 14 121/84 98 94 12/08 1144 87 13 143/67 97 94 12/08 1141 87 14 122/92 103 94 12/08 1138 87 13 120/80 95 95 Status post: Robotic assisted excision of right upper lobe pancho ng nodule. Staple excision of blebs right upper lobe of lung. Physical Exam Head/Eyes: abnl Conjunctiva/sclera (SQ emphysema ), atraumatic, normocephalic, PERRLA ENT: moist mucosal membranes Neck: supple/no meningismus, no bruit/NL carotids, no JVD, no masses or swelling Cardiovascular: CV assessment: regular rate and rhythm, BP puls es = bilaterally, normal heart sounds, no murmur Respiratory: accessory muscle use, decreased pk ath sounds, dullness to percussion, on oxygen Abdomen: soft, non-tender, no mass/organ omegaly, no pulsatile mass, no rebound Lower extremity: LE assessment: no edema, 2+ peripheral pulses Musculoskeletal: full range of motion Neuro/PRODUCTION PLANNER SCHEDULER: alert, oriented X 3, CN II-XII intact , no motor deficits Skin: abnormal color (S/Q emphysema) Psychiatry: normal affect, normal judgment/insig ht, normal mood, no hallucinations Results Findings/Data: Laboratory Tests 12/10 535 Chemistry Sodium (137 - 145 MMOL/L) 129 L Potassium (3.5 - 5.1 MMOL/L) 4.2 Chloride (98 - 107 MMOL/L) 97 L Carbon Dioxide (22 - 30 MMOL/L) 27 BUN (7 - 17 MG/DL) 17 Creatinine (0.52 - 1.04 MG/DL) 0.50 L Glomerular Filtr Rate > 60 Glucose (74 - 106 MG/DL) 92 Calcium (8.4 - 10.2 MG/DL) 8.5 Laboratory Tests 12/10 535 Hematology WBC (3.8 - 9.8 K/MM3) 7.9 RBC (3.58 - 4.97 M/MM3) 3.89 Hgb (11.2 - 14.9 G/DL) 11.2 Hct (33.2 - 43.5 %) 35.5 MCV (80.7 - 99.1 fL) 91 MCH (27.0 - 34.1 pg) 28.8 MCHC (32.2 - 35.7 %) 31.5 L RDW (12.1 - 15.2 %) 14.3 Plt Count (129 - 368 K/MM3) 274 MPV (7.4 - 10.4 fl) 9.4 Neut % (Auto) (43 - 75 %) 74.1 Lymph % (Auto) (14 - 44 %) 14.1 [place] % (Auto) (4 - 13 %) 8.6 Eos % (Auto) (0 - 6 %) 2.0 Baso % (Auto) (0 - 2 %) 0.3 Neut # (Auto) (2.0 - 7.6 K/mm3) 5.86 Lymph # (Auto) (1.0 - 3.8 K/mm3) 1.11 [place] # (Auto) (0.1 - 0.8 K/mm3) 0.68 Eos # (Auto) (0.0 - 0.2 K/mm3) 0.16 Baso # (Auto) (0.0 - 0.2 K/mm3) 0.02 Immature Gran % (0.0 - 2.0 %) 0.9 Nucleated RBC % (0 - 1.0 %) 0.0 Nucleated RBCs # (Man) (0.0 - 0.1 K/mm3) 0.00 Diagnosis, Assessment Plan Free Text DxA P Notes Free Text DxA P Notes: IMPRESSION: S/P Robotic assisted excision of right upper lo be lung nodule. Staple excision of blebs right upper lobe of lung. R PTX - subcutaneous emphysema CAD-stable HTN HLP PVC's PAD AAA S/P EVAR COPD RECOMMEND: Continue current medical rx. per orders Ambulate at 1812 RPT #:[id number] END OF REPORT 2018-12-09 05:20:00-00:00 [id number] [facility] [address] [place] [address] PATIENT NAME: MOISÉS CANNON ADMIT JOHNNY E: 11/30/18 ACCOUNT NO: [id number] ROOM NO: [facility] AGE: 63 REPORT TYPE: ELECTROCARDIOGRAM SEX: F ADMITTING PHYSICIAN:Karen Vasquez MD ATTENDING PHYSICIAN:Chris Rivera MD Order: [id number] Test Reason : PVC's Test Date/Time Stamp: MonDec 09 2018 05:20:10 Blood Pressure : / mmHG Vent. Rate : 076 BPM Atrial Rate : 076 BPM P-R Int : 126 ms QRS Dur : 070 ms QT Int : 408 ms P-R-T Axes : 043 006 015 degree s QTc Int : 459 ms Normal sinus rhythm Cannot rule out Anterior infarct , age undetermi angelo Abnormal ECG When compared with ECG of 08-DEC-2018 07:06, premature ventricular complexes are no longer pr esent Nonspecific T wave abnormality now evident in In ferior leads Confirmed by ALEN HANSON ([id number]) on 12/09/2018 8:19:46 AM Referred By: Chris Rivera Confirmed by:ALEN BRADLEY at 0820 PATIENT NAME: MOISÉS CANNON 2018-12-08 15:23:00-00:00 [facility] ([facility] Hospitalist Progress Note REPORT#:[id number] REPORT STATUS: Signed DATE:12/08/18 TIME: 1523 PATIENT: MOISÉS CANNON UNIT #: [id number] ROOM/BED: [facility] : [facility] AGE: 63 SEX: F ATTEND: Augustus Rivera MD ADM AUTHOR: Ana Haas MD * ALL edits or amendments must be made on the Digital Env[employer]/computer document * Subjective Chief Complaint: still a lot of swelling. had an episode of sob this morning. dr Rivera changed the chest tube to a bigger one today. Review of Systems Constitutional: Reports: fatigue, generalized weakness. Denies: fever. Eyes: Reports: swelling. ENT: Denies: sore throat. Respiratory: Reports: SOB. Cardiovascular: Reports: chest pain (Soreness of the henok st), DIAMOND (dyspnea on exertion), edema. GI: Denies: diarrhea, vomiting. Neuro: Denies: confusion, dizziness. Systems reviewed negative: Allergy/Immun , Constitutional, Endocrine, ENT, Eyes , GI, , Heme, Musculoskeletal, Neuro, Psych, S kin Objective General VS/I O: Vital Signs: Date Time Temp Pulse Resp B/P B/P Pulse O2 O2 F low FiO2 Mean Ox Delivery Rate 12/08 1430 82 12 119/77 94 12/08 1400 86 11 120/64 85 03/30 1330 86 11 130/70 92 90 03 1259 85 16 105/64 77 89 12/08 1241 97.8 12/08 1231 88 15 107/64 81 91 12/08 1216 91 19 127/77 98 93 03/ 1146 86 14 121/84 98 94 03 1144 87 13 143/67 97 94 03 1141 87 14 122/92 103 94 03/30 1138 87 13 120/80 95 95 03/30 1115 90 14 123/63 83 94 03/30 1101 97.8 03/30 1100 96 14 139/60 87 92 03/30 0930 90 25 131/81 101 93 03/30 0916 93 29 133/82 101 95 03/30 0900 97 38 126/78 97 96 03/30 0845 97 20 131/80 102 95 03/30 0840 97.8 03/30 0839 98 38 132/83 102 88 03/30 0816 98 23 136/66 95 91 03/30 0745 100 22 116/74 89 94 03/30 0730 Nasal 4.242893 cannula 03/30 0730 106 110/90 96 92 03/30 0704 113 135/64 89 94 03/30 0658 114 40 137/70 91 94 03/30 0644 93 Nasal 3.477032 32 cannula 03/30 0600 106 39 141/67 93 96 03/30 0530 106 25 95 03/30 0508 122/76 92 03/30 0400 97.9 Nasal 4.939324 cannula 03/30 0400 106 35 112/86 95 96 03/30 0300 104 38 120/68 83 88 03/30 0208 104 17 121/80 96 94 03/30 0100 107 42 140/98 114 90 12/08 0030 102 34 135/90 109 95 12/08 0000 98.0 Nasal 2.295370 cannula 12/08 0000 109 37 135/85 106 95 12/07 2330 112 33 127/85 101 93 12/07 2300 105 36 128/81 98 95 12/07 2230 112 32 136/89 107 94 12/076 136/93 109 12/07 2200 108 42 94 12/070 107 48 152/115 131 94 12/07 2100 107 32 158/76 109 95 12/07 2029 107 36 140/72 98 95 12/08 1999 98.4 Nasal 2.920611 cannula 12/08 1999 Nasal 2.730849 cannula 12/08 1999 102 26 126/90 102 96 12/07 1939 109 128/72 94 12/07 1909 95 Nasal 3.697889 32 cannula 12/07 1900 106 168/94 120 97 12/07 1845 96 29 97 12/07 1830 103 143/83 103 97 12/07 1800 94 18 98 12/07 1730 91 138/87 107 98 12/07 1700 92 22 134/80 103 98 12/07 1630 96 134/78 102 97 12/07 1600 98.0 12/07 1600 91 127/76 97 97 12/07 1530 92 134/92 109 97 24 hour I O ending at 0700: 12/08 0700 12/07 1900 Intake Total 300 250 Output Total 450 Balance 300 -200 Intake, Oral 300 250 Number 1 3 Bowel Movements Number Voids 7 5 Output, Urine 450 Medications: Active Meds + DC'd Last 24 Hrs Potassium Chloride 20 MEQ Q2H PO (DC) Ipratropium Freedom 0.5 MG RTQ4H NEB (CKD) Levalbuterol HCl 0.63 MG RTQ4H NEB Lidocaine 0 .STK-MED ONE .ROUTE (DC) Fentanyl Citrate 0 .STK-MED ONE .ROUTE (DC) Midazolam HCl 0 .STK-MED ONE .ROUTE (DC) Ketamine HCl 0 .STK-MED ONE .ROUTE (DC) Potassium Chloride 100 ML Q2H IV (DC) Albuterol/Ipratropium 3 ML RTQ4H PRN PRN INH (DC ) Furosemide 20 MG ONCE ONE IV (DC) Enoxaparin Sodium 40 MG QAM SUBQ (DC) Atorvastatin Calcium 40 MG BEDTIME PO Citalopram Hydrobromide 20 MG BEDTIME PO Docusate Sodium 100 MG BID PO Metoprolol Tartrate 25 MG BEDTIME PO Pantoprazole 20 MG BEDTIME PO Zolpidem Tartrate 10 MG BEDTIME PO Acetaminophen 650 MG Q4H PRN PRN PO Acetaminophen 650 MG Q4H PRN PRN RECTAL Bisacodyl 5 MG DAILY PRN PRN PO Bisacodyl 10 MG DAILY PRN PRN RECTAL Hydrocodone Bitart/Acetaminophen 1 TAB Q4H PRN P RN PO Hydrocodone Bitart/Acetaminophen 2 TAB Q4H PRN P RN PO Magnesium Hydroxide 30 ML DAILY PRN PRN PO Meperidine HCl 25 MG Q4H PRN PRN IM Naloxone HCl 0.2 MG ASDIR PRN IV Ondansetron HCl 4 MG Q4H PRN PRN IV Physical Exam General appearance: obese, alert, awake, oriente d Head/Eyes: abnormal eyelids, abnormal periorbita l ENT: normal dentition, normal ear left, normal e ar right, normal nose, normal pharynx, normal sinus Neck: full range of motion, non-tender, normal thyroid, supple/no meningismus, no bruit/NL carotids, no JVD, no masses or swell ing Cardiovascular: normal capillary refill, regular rate rhythm Respiratory: chest wall tenderness Abdomen: distended, tenderness, normal bowel yanelis nds Extremities: edema, moves all, normal capillary refill Musculoskeletal: normal inspection Neuro/PRODUCTION PLANNER SCHEDULER: alert, oriented X 3 Skin: subq emphysema (face, neck and chest ), dr y, intact Wound/incision: Site Condition: dressing clean dry, dressing in tact Results Findings/Data: Laboratory Tests 12/08 0700 Blood Gas Puncture Site R Brachial O2 Saturation (92.0 - 98.5 %) 96 ABG pH (7.35 - 7.45) 7.382 ABG pCO2 (35.0 - 45.0 mmHg) 51.4 *H ABG pO2 (75.0 - 100.0) 82 ABG HCO3 (20.0 - 26.0 MMOL/L) 30.5 *H ABG Base Excess (-3.0 - 3.0 MMOL/L) 5.0 H Nadja Test (CHECK) N/A O2 Delivery Device N/C FiO2 (21 - 100 %) 40 Laboratory Tests 12/08 12/08 0535 0535 Chemistry Sodium (137 - 145 MMOL/L) 136 L Potassium (3.5 - 5.1 MMOL/L) 3.6 Chloride (98 - 107 MMOL/L) 95 L Carbon Dioxide (22 - 30 MMOL/L) 30 Anion Gap (14 - 24 MMOL/L) 15 BUN (7 - 17 MG/DL) 16 Creatinine (0.52 - 1.04 MG/DL) 0.60 Glomerular Filtr Rate > 60 Glucose (74 - 106 MG/DL) 92 Calcium (8.4 - 10.2 MG/DL) 9.0 Magnesium (1.6 - 2.3 MG/DL) 2.0 Laboratory Tests 12/08 0535 Coagulation INR (0.8 - 1.1) 1.0 APTT (22.0 - 33.0 SECONDS) 23.2 PT Patient/Control Mix (9.6 - 11.6 SECONDS) 10. 3 Laboratory Tests 12/08 0535 Hematology WBC (3.8 - 9.8 K/MM3) 10.1 H RBC (3.58 - 4.97 M/MM3) 4.38 Hgb (11.2 - 14.9 G/DL) 12.5 Hct (33.2 - 43.5 %) 39.4 MCV (80.7 - 99.1 fL) 90 MCH (27.0 - 34.1 pg) 28.5 MCHC (32.2 - 35.7 %) 31.7 L RDW (12.1 - 15.2 %) 14.6 Plt Count (129 - 368 K/MM3) 324 MPV (7.4 - 10.4 fl) 9.6 Neut % (Auto) (43 - 75 %) 79.2 H Lymph % (Auto) (14 - 44 %) 9.3 L [place] % (Auto) (4 - 13 %) 8.8 Eos % (Auto) (0 - 6 %) 1.8 Baso % (Auto) (0 - 2 %) 0.3 Neut # (Auto) (2.0 - 7.6 K/mm3) 8.04 H Lymph # (Auto) (1.0 - 3.8 K/mm3) 0.94 L [place] # (Auto) (0.1 - 0.8 K/mm3) 0.89 H Eos # (Auto) (0.0 - 0.2 K/mm3) 0.18 Baso # (Auto) (0.0 - 0.2 K/mm3) 0.03 Immature Gran % (0.0 - 2.0 %) 0.6 Nucleated RBC % (0 - 1.0 %) 0.0 Nucleated RBCs # (Man) (0.0 - 0.1 K/mm3) 0.00 Radiology data: Recent Impressions: RADIOLOGY - XR CHEST 1V 12/08 0508 Report Impression - Status: SIGNED Entered: 12/08/2018 0711 IMPRESSION: Stable appearance of the chest. Impression By: Ludwig Ghosh M.D. RADIOLOGY - XR CHEST 1V 12/08 0654 Report Impression - Status: SIGNED Entered: 12/08/2018 0718 IMPRESSION: Suspect mild interstitial edema. Impression By: Ludwig Ghosh M.D. RADIOLOGY - XR CHEST 1V 12/08 1025 Report Impression - Status: SIGNED Entered: 12/08/2018 1119 IMPRESSION: Right apical chest tube in place, cannot accurat kendell comment upon the presence or absence of a pneumothorax given the extensive overlying subcutaneous emphysema Impression By: [email or web address] - DilipChano gold MD Treatment Prophylaxis Treatment Prophylaxis William documentation: The data below has been impo rted from nursing documentation. Any exceptions have been noted below under Provider comments. _ Nursing Documentation Date william inserted: 11/30/18 Date william discontinued: 12/01/18 _ Provider comments: [] Diagnosis, Assessment Plan Free Text DxA P Notes Free text DxA P notes: Assesment: -RUL nodule/blebs s/p excision -Dyspnea on exertion -Extensive subcutaneous emphysema Plan: -Continue oxygen as needed -cont nebs , pulmicort -Monitor chest tube output; Management per CT barth rgeon -Continue home meds as appropriate -pain control -DVT prophylaxis - SCD 12/02 cont chest tube cont oxygen, nebs management per [facility] dvt ppx: [facility] [place] 12/03 pt is stable, transfer out icu cont chest tube cont cont management 12/04 transferred back to ICU bc of sq emphysema- CV s x following Chest Xray shows worsening s ubcutaneous emphysema otherwise stable appearance of the chest Cont Chest tube Cont current management on clear liquid diet. DVT prophylaxis: [facility] [place] 12/05 -Chest Xray shows worsening subcutaneous emphysema and development of bibasilar atelectasis and questionable small pneumomediast inum. 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 -Encourage IS and ambulation -Granddaughter at bedside -Caseating granuloma/fungal-final pathology-ID c onsulted -Cont Chest tube -Cont current management -DVT prophylasix-lovenox 12/07- cxr same. - pt NPO for possible OR today by dr Rivera - will continue with current supportive care. 12/08- breathing comfortably with mask. able to s it at the edge of the bed. - ct in place. CV surgery following. - will continue with current mx. Quality Medications Current medication review: I attest that the foregoing medication list in t medical record is true, accurate, and complete to the best of my knowled ge. Electronically Signed by Ana Haas MD on at 3941 RPT #:[id number] END OF REPORT 2018-12-08 11:26:00-00:00 [id number] [address] PATIENT NAME: MOISÉS CANNON ADMIT JOHNNY E: 11/30/18 ACCOUNT NO: [id number] ROOM NO: Z.SI04 AGE: 63 REPORT TYPE: OPERATIVE REPORT SEX: F ADMITTING PHYSICIAN:Karen Vasquez MD ATTENDING PHYSICIAN:Chris Rivera MD OPERATION DATE: 12/08/2018 CARDIAC SURGERY SERVICE PREOPERATIVE DIAGNOSIS: Subcutaneous emphysema, status post robotic-assisted right upper lobe excisional lung biopsy and exci brianne of blebs. POSTOPERATIVE DIAGNOSIS: Subcutaneous emphysema, status post robotic-assisted right upper lobe excisional lung biopsy and exci brianne of blebs. PROCEDURE: Right chest tube insertion, #32-Frenc h Crabtree chest tube. SURGEON: Chris Rivera MD AIRLINE ATTENDANT: None. ANESTHESIA: MAC local. COMPLICATIONS: None. DISPOSITION: The patient in recovery devon k to surgical ICU in stable condition. DESCRIPTION OF PROCEDURE: On 12/08/2018, the pat ient was brought to the operating room, placed on the operating table in supine position, prepped and draped in usual fashion. Following MAC anesthesi a, local anesthetic was infiltrated. The previous chest tube inc ision sutures were cut, the chest tube was removed. We then infiltrated subcutaneous wi th more local anesthetic. We extended the incision, did blunt dissection with a Bronwyn clamp, entered the interspace. There was no air under press ure. We then placed a 32-Malay Crabtree chest tube, it was secured with 0 silk a nd 0 silk pursestring also was placed. We attached the chest bottle system, really mini mal air, no significant air leak. The chest x-ray in the operating room demo nstrated the chest tube in excellent position. The lung expanded. We then p laced dressings and took the patient back to surgical ICU in stable condition . Dictated By: Chris Rivera MD WT: OP:IVETT/SOPHIA/JANNIE Conf#: [id number]/DID#: [id number] PATIENT NAME: MOISÉS CANNNO cc: Alen Hanson MD Authenticated by Chris Rivera MD On 019 07:39:42 AM at 0739 PATIENT NAME: MOISÉS CANNON 2018-12-08 07:06:00-00:00 [id number] [place] [id number] [place] [id number] PATIENT NAME: MOISÉS CANNON ADMIT JOHNNY E: 11/30/18 ACCOUNT NO: [id number] ROOM NO: Z.SI04 AGE: 63 REPORT TYPE: ELECTROCARDIOGRAM SEX: F ADMITTING PHYSICIAN:Karen Vasquez MD ATTENDING PHYSICIAN:Chris Rivera MD Order: [id number] Test Reason : CAD Test Date/Time Stamp: MonDec 08 2018 07:06:30 Blood Pressure : / mmHG Vent. Rate : 108 BPM Atrial Rate : 108 BPM P-R Int : 116 ms QRS Dur : 066 ms QT Int : 346 ms P-R-T Axes : 075 029 062 degree s QTc Int : 463 ms Sinus tachycardia with frequent premature ventri cular complexes Low voltage QRS Nonspecific T wave abnormality Abnormal ECG When compared with ECG of 08-DEC-2018 07:05, No significant change was found Confirmed by ALEN HANSON ([id number]) on 12/08/2018 7:53:09 AM Referred By: Chris Rivera Confirmed by:ALEN BRADLEY at 0753 PATIENT NAME: MOISÉS CANNON 2018-12-08 07:06:00-00:00 [id number] [place] [id number] PATIENT NAME: MOISÉS CANNON ADMIT JOHNNY E: 11/30/18 ACCOUNT NO: [id number] ROOM NO: Z.SI04 AGE: 63 REPORT TYPE: ELECTROCARDIOGRAM SEX: F ADMITTING PHYSICIAN:Karen Vasquez MD ATTENDING PHYSICIAN:Chris Rivera MD Order: [id number] Test Reason : CAD Test Date/Time Stamp: MonDec 08 2018 07:06:30 Blood Pressure : / mmHG Vent. Rate : 108 BPM Atrial Rate : 108 BPM P-R Int : 116 ms QRS Dur : 066 ms QT Int : 346 ms P-R-T Axes : 075 029 062 degree s QTc Int : 463 ms Sinus tachycardia with frequent premature ventri cular complexes Low voltage QRS Nonspecific T wave abnormality Abnormal ECG When compared with ECG of 08-DEC-2018 07:05, No significant change was found Confirmed by ALEN HANSON ([id number]) on 12/08/2018 11:36:51 AM Referred By: Chris Rivera Confirmed by:ALEN HANSON at 1136 PATIENT NAME: MOISÉS CANNON 2018-12-08 07:05:00-00:00 [id number] [place] [address] PATIENT NAME: MOISÉS CANNON ADMIT JOHNNY E: 11/30/18 ACCOUNT NO: [id number] ROOM NO: Z.SI04 AGE: 63 REPORT TYPE: ELECTROCARDIOGRAM SEX: F ADMITTING PHYSICIAN:Karen Vasquez MD ATTENDING PHYSICIAN:Chris Rivera MD Order: [id number] Test Reason : CAD Test Date/Time Stamp: MonDec 08 2018 07:05:54 Blood Pressure : / mmHG Vent. Rate : 109 BPM Atrial Rate : 109 BPM P-R Int : 126 ms QRS Dur : 066 ms QT Int : 334 ms P-R-T Axes : 070 046 074 degree s QTc Int : 449 ms Sinus tachycardia with occasional premature vent ricular complexes Nonspecific ST and T wave abnormality Abnormal ECG When compared with ECG of 08-DEC-2018 04:42, No significant change was found Confirmed by ALEN HANSON ([id number]) on 12/08/2018 7:52:23 AM Referred By: Chris Rivera Confirmed by:ALEN BRADLEY at 0752 PATIENT NAME: MOISÉS CANNON 2018-12-08 07:05:00-00:00 [id number] [place] [id number] PATIENT NAME: MOISÉS CANNON ADMIT JOHNNY E: 11/30/18 ACCOUNT NO: [id number] ROOM NO: [facility] AGE: 63 REPORT TYPE: ELECTROCARDIOGRAM SEX: F ADMITTING PHYSICIAN:Karen Vasquez MD ATTENDING PHYSICIAN:Chris Rivera MD Order: [id number] Test Reason : CAD Test Date/Time Stamp: MonDec 08 2018 07:05:54 Blood Pressure : / mmHG Vent. Rate : 109 BPM Atrial Rate : 109 BPM P-R Int : 126 ms QRS Dur : 066 ms QT Int : 334 ms P-R-T Axes : 070 046 074 degree s QTc Int : 449 ms Sinus tachycardia with occasional premature vent ricular complexes Nonspecific ST and T wave abnormality Abnormal ECG When compared with ECG of 08-DEC-2018 04:42, No significant change was found Confirmed by ALEN HANSON ([id number]) on 12/08/2018 11:36:55 AM Referred By: Chris Rivera Confirmed by:ALEN BRADLEY at 1137 PATIENT NAME: MOISÉS CANNON 2018-12-08 06:17:00-00:00 [facility] ([facility] Cardiology Progress Note REPORT#:[id number] REPORT STATUS: Signed DATE:12/08/18 TIME: 06 PATIENT: MOISÉS CANNON UNIT #: [id number] [address]OM[address]: [address] : [address] AGE: 63 SEX: F ATTEND: Augustus Rievra MD ADM AUTHOR: Alen Hanson MD * ALL edits or amendments must be made on the Digital [employer]/computer document * Subjective Chief Complaint: no CP, worsening SOB Patient reports: Yes: shortness of breath. No: chest pain, palpit ations, swelling. Nursing reports: No: complaints. Objective General VS/I O: 24 hour I O ending at 0700: 12/08 0700 12/07 1900 Intake Total 250 Output Total 450 Balance -200 Intake, Oral 250 Number 3 Bowel Movements Number Voids 5 Output, Urine 450 Vital Signs: Date Time Temp Pulse Resp B/P B/P Pulse O2 O2 F low FiO2 Mean Ox Delivery Rate 12/08 0100 107 42 140/98 114 90 12/08 0030 102 34 135/90 109 95 12/08 0000 109 37 135/85 106 95 12/07 2330 112 33 127/85 101 93 12/07 2300 105 36 128/81 98 95 12/07 2230 112 32 136/89 107 94 12/07 2206 136/93 109 12/07 2200 108 42 94 12/070 107 48 152/115 131 94 12/07 2100 107 32 158/76 109 95 12/07 2029 107 36 140/72 98 95 12/08 1999 102 26 126/90 102 96 12/07 1939 109 128/72 94 12/07 1909 95 Nasal 3.966338 32 cannula 12/07 1900 106 168/94 120 97 12/07 1845 96 29 97 12/07 1830 103 143/83 103 97 12/07 1800 94 18 98 12/07 1730 91 138/87 107 98 12/07 1700 92 22 134/80 103 98 12/07 1630 96 134/78 102 97 12/07 1600 98.0 12/07 1600 91 127/76 97 97 12/07 1530 92 134/92 109 97 12/07 1500 93 144/87 108 97 12/07 1430 88 134/80 99 96 12/07 1400 86 29 126/90 104 96 12/07 1330 87 128/86 102 96 12/07 1300 87 134/64 92 96 12/07 1247 87 151/69 95 97 12/07 1200 85 23 138/66 91 98 12/07 1200 97.3 97 Nasal 2.948596 cannula 12/07 1130 81 25 132/79 98 98 12/07 1100 82 24 141/70 99 96 12/07 1030 83 131/74 94 98 12/07 1000 85 132/70 96 98 12/07 0930 81 118/82 95 95 12/07 0900 82 16 114/59 80 97 12/07 0830 80 21 132/74 95 97 12/07 0800 78 16 126/72 94 98 12/07 0730 78 34 99 12/07 0720 Nasal 4.972344 cannula 12/07 0700 78 14 93 Medications: Active Meds + DC'd Last 24 Hrs Furosemide 20 MG ONCE ONE IV (UNV) Bisacodyl 10 MG ONCE ONE RECTAL (DC) Enoxaparin Sodium 40 MG QAM SUBQ (DC) Atorvastatin Calcium 40 MG BEDTIME PO Citalopram Hydrobromide 20 MG BEDTIME PO Docusate Sodium 100 MG BID PO Metoprolol Tartrate 25 MG BEDTIME PO Pantoprazole 20 MG BEDTIME PO Zolpidem Tartrate 10 MG BEDTIME PO Budesonide 0.25 MG RTQ12H NEB (DC) Acetaminophen 650 MG Q4H PRN PRN PO Acetaminophen 650 MG Q4H PRN PRN RECTAL Bisacodyl 5 MG DAILY PRN PRN PO Bisacodyl 10 MG DAILY PRN PRN RECTAL Hydrocodone Bitart/Acetaminophen 1 TAB Q4H PRN P RN PO Hydrocodone Bitart/Acetaminophen 2 TAB Q4H PRN P RN PO Magnesium Hydroxide 30 ML DAILY PRN PRN PO Meperidine HCl 25 MG Q4H PRN PRN IM Naloxone HCl 0.2 MG ASDIR PRN IV Ondansetron HCl 4 MG Q4H PRN PRN IV Status post: Robotic assisted excision of right upper lobe pancho ng nodule. Staple excision of blebs right upper lobe of lung. Physical Exam General appearance: respiratory support, alert, awake, oriented, pleasant, mental status normal Head/Eyes: abnl Conjunctiva/sclera (SQ emphysema ), atraumatic, normocephalic, PERRLA ENT: moist mucosal membranes Neck: supple/no meningismus, no bruit/NL carotids, no JVD, no masses or swelling Cardiovascular: CV assessment: regular rate and rhythm, BP puls es = bilaterally, normal heart sounds, no murmur Respiratory: accessory muscle use, decreased pk ath sounds, dullness to percussion, on oxygen Abdomen: soft, non-tender, no mass/organ omegaly, no pulsatile mass, no rebound Lower extremity: LE assessment: no edema, 2+ peripheral pulses Musculoskeletal: full range of motion Neuro/PRODUCTION PLANNER SCHEDULER: alert, oriented X 3, CN II-XII intact , no motor deficits Skin: abnormal color (S/Q emphysema) Psychiatry: normal affect, normal judgment/insig ht, normal mood, no hallucinations Results Findings/Data: Laboratory Tests 12/08 12/07 0535 1120 Chemistry Sodium (137 - 145 MMOL/L) 136 L 134 L Potassium (3.5 - 5.1 MMOL/L) 3.6 3.7 Chloride (98 - 107 MMOL/L) 95 L 98 Carbon Dioxide (22 - 30 MMOL/L) 30 30 Anion Gap (14 - 24 MMOL/L) 15 BUN (7 - 17 MG/DL) 16 9 Creatinine (0.52 - 1.04 MG/DL) 0.60 0.50 L Glomerular Filtr Rate > 60 > 60 Glucose (74 - 106 MG/DL) 92 93 Calcium (8.4 - 10.2 MG/DL) 9.0 8.8 Laboratory Tests 12/08 12/07 0535 1120 Coagulation INR (0.8 - 1.1) 1.0 1.0 APTT (22.0 - 33.0 SECONDS) 23.2 24.1 PT Patient/Control Mix (9.6 - 11.6 SECONDS) 10. 3 10.2 Laboratory Tests 12/08 12/07 0535 1120 Hematology WBC (3.8 - 9.8 K/MM3) 10.1 H 7.9 RBC (3.58 - 4.97 M/MM3) 4.38 3.97 Hgb (11.2 - 14.9 G/DL) 12.5 11.5 Hct (33.2 - 43.5 %) 39.4 35.8 MCV (80.7 - 99.1 fL) 90 90 MCH (27.0 - 34.1 pg) 28.5 29.0 MCHC (32.2 - 35.7 %) 31.7 L 32.1 L RDW (12.1 - 15.2 %) 14.6 14.7 Plt Count (129 - 368 K/MM3) 324 290 MPV (7.4 - 10.4 fl) 9.6 9.5 Neut % (Auto) (43 - 75 %) 79.2 H 73.6 Lymph % (Auto) (14 - 44 %) 9.3 L 13.8 L [place] % (Auto) (4 - 13 %) 8.8 9.1 Eos % (Auto) (0 - 6 %) 1.8 2.4 Baso % (Auto) (0 - 2 %) 0.3 0.3 Neut # (Auto) (2.0 - 7.6 K/mm3) 8.04 H 5.83 Lymph # (Auto) (1.0 - 3.8 K/mm3) 0.94 L 1.09 [place] # (Auto) (0.1 - 0.8 K/mm3) 0.89 H 0.72 Eos # (Auto) (0.0 - 0.2 K/mm3) 0.18 0.19 Baso # (Auto) (0.0 - 0.2 K/mm3) 0.03 0.02 Immature Gran % (0.0 - 2.0 %) 0.6 0.8 Nucleated RBC % (0 - 1.0 %) 0.0 0.0 Nucleated RBCs # (Man) (0.0 - 0.1 K/mm3) 0.00 0 .00 Laboratory Tests 12/08 12/07 0535 1120 Coagulation APTT (22.0 - 33.0 SECONDS) 23.2 24.1 Results: labs reviewed, vital signs stable, rhyt hm personally rev'd, x-ray personally reviewed, current med profile rev'd EKG Interpretation: normal sinus rhythm Telemetry Interpretation: SR/PVC's Treatment Prophylaxis Treatment Prophylaxis William documentation: The data below has been impo rted from nursing documentation. Any exceptions have been noted below under Provider comments. _ Nursing Documentation Date william inserted: 11/30/18 Date william discontinued: 12/01/18 _ Provider comments: [] Diagnosis, Assessment Plan Problem List/A P: 1. Abdominal aortic aneurysm (AAA) >[address] 2. COPD without exacerbation 3. HLD (hyperlipidemia) 4. HTN (hypertension), benign Consultants: cardiovascular surgery Code status: full code Plan discussed with: patient, patient care team, nurse Free Text DxA P Notes Free Text DxA P Notes: IMPRESSION: S/P Robotic assisted excision of right upper lo be lung nodule. Staple excision of blebs right upper lobe of lung. R PTX - subcutaneous emphysema CAD-stable HTN HLP PVC's PAD AAA S/P EVAR COPD RECOMMEND: Continue current medical rx. per orders Ambulate Electronically Signed by Alen Hanson MD on 0 12/08/18 at 0623 RPT #:[id number] END OF REPORT 2018-12-08 04:42:00-00:00 [id number] [place] [id number] PATIENT NAME: MOISÉS CANNON ADMIT JOHNNY E: 11/30/18 ACCOUNT NO: [id number] ROOM NO: Z.SI04 AGE: 63 REPORT TYPE: ELECTROCARDIOGRAM SEX: F ADMITTING PHYSICIAN:Karen Vasquez MD ATTENDING PHYSICIAN:Chris Rivera MD Order: [id number] Test Reason : preop Test Date/Time Stamp: MonDec 08 2018 04:42:18 Blood Pressure : / mmHG Vent. Rate : 106 BPM Atrial Rate : 106 BPM P-R Int : 116 ms QRS Dur : 066 ms QT Int : 342 ms P-R-T Axes : 029 -05 041 degree s QTc Int : 454 ms Sinus tachycardia with frequent premature ventri cular complexes Low voltage QRS Nonspecific T wave abnormality Abnormal ECG When compared with ECG of 02-DEC-2018 09:50, premature ventricular complexes are now present Confirmed by ALEN HANSON ([id number]) on 12/08/2018 7:51:59 AM Referred By: Chris Rivera Confirmed by:ALEN BRADLEY at 0752 PATIENT NAME: MOISÉS CANNON 2018-12-08 04:42:00-00:00 [id number] [place] [id number] PATIENT NAME: MOISÉS CANNON ADMIT JOHNNY E: 11/30/18 ACCOUNT NO: [id number] ROOM NO: Z.SI04 AGE: 63 REPORT TYPE: ELECTROCARDIOGRAM SEX: F ADMITTING PHYSICIAN:Karen Vasquez MD ATTENDING PHYSICIAN:Chris Rviera MD Order: [id number] Test Reason : preop Test Date/Time Stamp: MonDec 08 2018 04:42:18 Blood Pressure : / mmHG Vent. Rate : 106 BPM Atrial Rate : 106 BPM P-R Int : 116 ms QRS Dur : 066 ms QT Int : 342 ms P-R-T Axes : 029 -05 041 degree s QTc Int : 454 ms Sinus tachycardia with frequent premature ventri cular complexes Low voltage QRS Nonspecific T wave abnormality Abnormal ECG When compared with ECG of 02-DEC-2018 09:50, premature ventricular complexes are now present Confirmed by ALEN HANSON ([id number]) on 12/10/2018 7 :29:14 AM Referred By: Chris Rivera Confirmed by:ALEN BRADLEY at 0729 PATIENT NAME: MOISÉS CANNON 2018-12-07 16:46:00-00:00 [facility] ([facility] Hospitalist Progress Note REPORT#:[id number] REPORT STATUS: Signed DATE:12/07/18 TIME: 1645 PATIENT: MOISÉS CANNON UNIT #: [id number] [address]OM[address]BED: [address] : [birth year] AGE: 63 SEX: F ATTEND: Meg Rivera MD ADM AUTHOR: Ana Haas MD * ALL edits or amendments must be made on the [employer]/computer document * Subjective Chief Complaint: eyes a little open today. breathing is ok Review of Systems Constitutional: Reports: fatigue, generalized weakness. Denies: fever. Eyes: Reports: swelling. ENT: Denies: sore throat. Respiratory: Reports: SOB. Cardiovascular: Reports: chest pain (Soreness of the [address] st), DIAMOND (dyspnea on exertion), edema. GI: Denies: diarrhea, vomiting. Neuro: Denies: confusion, dizziness. Systems reviewed negative: Allergy/Immun , Constitutional, Endocrine, ENT, Eyes , GI, , Heme, Musculoskeletal, Neuro, Psych, S kin Objective General VS/I O: Vital Signs: Date Time Temp Pulse Resp B/P B/P Pulse O2 O2 F low FiO2 Mean Ox Delivery Rate 12/07 1500 93 144/87 108 97 12/07 1430 88 134/80 99 96 12/07 1400 86 29 126/90 104 96 12/07 1330 87 128/86 102 96 12/07 1300 87 134/64 92 96 12/07 1247 87 151/69 95 97 12/07 1200 85 23 138/66 91 98 12/07 1200 97.3 97 Nasal 2.937244 cannula 12/07 1130 81 25 132/79 98 98 12/07 1100 82 24 141/70 99 96 12/07 1030 83 131/74 94 98 12/07 1000 85 132/70 96 98 12/07 0930 81 118/82 95 95 12/07 0900 82 16 114/59 80 97 12/07 0830 80 21 132/74 95 97 12/07 0800 78 16 126/72 94 98 12/07 0730 78 34 99 12/07 0720 Nasal 4.447796 cannula 12/07 0700 78 14 93 12/07 0600 76 18 98 12/07 0507 77 15 112/82 94 94 12/07 0500 77 16 95 12/07 0407 77 23 120/80 95 94 12/07 0307 78 21 112/83 94 95 12/07 0300 24 97 12/07 0230 97 12/07 0207 75 129/79 97 94 12/07 0130 22 95 12/07 0107 77 143/65 94 94 12/07 0100 81 28 97 12/07 0007 79 30 123/63 86 12/07 0000 97.5 12/07 0000 97.5 12/07 0000 93 12/06 2330 79 30 96 12/06 2207 81 32 140/75 100 98 12/06 2107 98 34 129/57 85 96 12/06 2006 105 29 145/58 85 96 12/06 2000 97.2 12/06 1943 94 Nasal 3.399871 32 cannula 12/06 1930 Nasal 4.338639 cannula 12/06 1920 107 24 143/77 104 96 12/06 1807 103 25 139/79 99 96 12/06 1725 12/06 1707 103 34 133/82 101 94 24 hour I O ending at 0700: 12/07 0700 12/06 1900 Intake Total 170 Output Total 405 351 Balance -235 -351 Intake, Oral 170 Number 1 Bowel Movements Number Voids 5 3 Output, Chest 5 Tube Drainage Output, Urine 400 350 Output, 1 Urine/Stool Mix Medications: Active Meds + DC'd Last 24 Hrs Bisacodyl 10 MG ONCE ONE RECTAL (DC) Warfarin Sodium 10 MG DAILY PO (CAN) Enoxaparin Sodium 40 MG QAM SUBQ (DA) Albuterol/Ipratropium 3 ML RTQ6H INH (DC) Atorvastatin Calcium 40 MG BEDTIME PO Citalopram Hydrobromide 20 MG BEDTIME PO Docusate Sodium 100 MG BID PO Metoprolol Tartrate 25 MG BEDTIME PO Pantoprazole 20 MG BEDTIME PO Zolpidem Tartrate 10 MG BEDTIME PO Budesonide 0.25 MG RTQ12H NEB (DC) Acetaminophen 650 MG Q4H PRN PRN PO Acetaminophen 650 MG Q4H PRN PRN RECTAL Bisacodyl 5 MG DAILY PRN PRN PO Bisacodyl 10 MG DAILY PRN PRN RECTAL Hydrocodone Bitart/Acetaminophen 1 TAB Q4H PRN P RN PO Hydrocodone Bitart/Acetaminophen 2 TAB Q4H PRN P RN PO Magnesium Hydroxide 30 ML DAILY PRN PRN PO Meperidine HCl 25 MG Q4H PRN PRN IM Naloxone HCl 0.2 MG ASDIR PRN IV Ondansetron HCl 4 MG Q4H PRN PRN IV Physical Exam General appearance: alert, awake, oriented Head/Eyes: abnormal eyelids, abnormal periorbita l ENT: normal dentition, normal ear left, normal e ar right, normal nose, normal pharynx, normal sinus Neck: full range of motion, non-tender, normal thyroid, supple/no meningismus, no bruit/NL carotids, no JVD, no masses or swell ing Cardiovascular: normal capillary refill, regular rate rhythm Respiratory: chest wall tenderness Abdomen: distended, tenderness, normal bowel yanelis nds Extremities: edema, moves all, normal capillary refill Musculoskeletal: normal inspection Neuro/PRODUCTION PLANNER SCHEDULER: alert, oriented X 3 Skin: subq emphysema (face, neck and chest ), dr amy, intact Wound/incision: Site Condition: dressing clean dry, dressing in tact Results Findings/Data: Laboratory Tests 12/07 1120 Chemistry Sodium (137 - 145 MMOL/L) 134 L Potassium (3.5 - 5.1 MMOL/L) 3.7 Chloride (98 - 107 MMOL/L) 98 Carbon Dioxide (22 - 30 MMOL/L) 30 BUN (7 - 17 MG/DL) 9 Creatinine (0.52 - 1.04 MG/DL) 0.50 L Glomerular Filtr Rate > 60 Glucose (74 - 106 MG/DL) 93 Calcium (8.4 - 10.2 MG/DL) 8.8 Laboratory Tests 12/07 1120 Coagulation INR (0.8 - 1.1) 1.0 APTT (21.0 - 33.0 SECONDS) 24.1 PT Patient/Control Mix (9.6 - 11.6 SECONDS) 10. 2 Laboratory Tests 12/07 1120 Hematology WBC (3.8 - 9.8 K/MM3) 7.9 RBC (3.58 - 4.97 M/MM3) 3.97 Hgb (11.2 - 14.9 G/DL) 11.5 Hct (33.2 - 43.5 %) 35.8 MCV (80.7 - 99.1 fL) 90 MCH (27.0 - 34.1 pg) 29.0 MCHC (32.2 - 35.7 %) 32.1 L RDW (12.1 - 15.2 %) 14.7 Plt Count (129 - 368 K/MM3) 290 MPV (7.4 - 10.4 fl) 9.5 Neut % (Auto) (43 - 75 %) 73.6 Lymph % (Auto) (14 - 44 %) 13.8 L [place] % (Auto) (4 - 13 %) 9.1 Eos % (Auto) (0 - 6 %) 2.4 Baso % (Auto) (0 - 2 %) 0.3 Neut # (Auto) (2.0 - 7.6 K/mm3) 5.83 Lymph # (Auto) (1.0 - 3.8 K/mm3) 1.09 [place] # (Auto) (0.1 - 0.8 K/mm3) 0.72 Eos # (Auto) (0.0 - 0.2 K/mm3) 0.19 Baso # (Auto) (0.0 - 0.2 K/mm3) 0.02 Immature Gran % (0.0 - 2.0 %) 0.8 Nucleated RBC % (0 - 1.0 %) 0.0 Nucleated RBCs # (Man) (0.0 - 0.1 K/mm3) 0.00 Radiology data: Recent Impressions: RADIOLOGY - XR CHEST 1V 12/07 0540 Report Impression - Status: SIGNED Entered: 12/07/2018 2049 IMPRESSION: No acute findings or changes in the chest. Impression By: Ludwig Ghosh M.D. Treatment Prophylaxis Treatment Prophylaxis William documentation: The data below has been impo rted from nursing documentation. Any exceptions have been noted below under Provider comments. _ Nursing Documentation Date william inserted: 11/30/18 Date william discontinued: 12/01/18 _ Provider comments: [] Diagnosis, Assessment Plan Free Text DxA P Notes Free text DxA P notes: Assesment: -RUL nodule/blebs s/p excision -Dyspnea on exertion -Extensive subcutaneous emphysema Plan: -Continue oxygen as needed -cont nebs , pulmicort -Monitor chest tube output; Management per CT barth rgeon -Continue home meds as appropriate -pain control -DVT prophylaxis - SCD 12/02 cont chest tube cont oxygen, nebs management per [facility] dvt ppx: scd 12/03 pt is stable, transfer out icu cont chest tube cont cont management 12/04 transferred back to ICU bc of sq emphysema- CV s x following Chest Xray shows worsening s ubcutaneous emphysema otherwise stable appearance of the chest Cont Chest tube Cont current management on clear liquid diet. DVT prophylaxis: SCD 12/05 -Chest Xray shows worsening subcutaneous emphysema and development of bibasilar atelectasis and questionable small pneumomediast inum. 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 -Encourage IS and ambulation -Granddaughter at bedside -Caseating granuloma/fungal-final pathology-ID c onsulted -Cont Chest tube -Cont current management -DVT prophylasix-lovenox 12/07- cxr same. - pt NPO for possible OR today by dr Rivera - will continue with current supportive care. Quality Medications Current medication review: I attest that the foregoing medication list in [facility] medical record is true, accurate, and complete to the best of my knowled ge. Electronically Signed by Ana Haas MD on at 1535 RPT #:[id number] END OF REPORT 2018-12-07 10:50:00-00:00 [facility] ([facility]) Cardiovascular Surgery Prog REPORT#:[id number] REPORT STATUS: Signed DATE:12/07/18 TIME: 1050 PATIENT: MOISÉS CANNON UNIT #: [id number] [address] AGE: 63 SEX: F ATTEND: Augustus Rivera MD ADM AUTHOR: Oumou Stanley BALING MACHINE TENDER * ALL edits or amendments must be made on the Digital [employer]/computer document * General Post-op: day 7 Status post: Robotic assisted excision of right upper lobe pancho ng nodule. Staple excision of blebs right upper lobe of lung. Subjective Patient reports: No: chest pain, nausea, vomiting. Comments: Seen at bedside, sitting on the chair Denies CP or SOB Reports constipation. Burning sensation to abdom en Review of Systems Constitutional: Denies: chills, fever, generalized weakness. Respiratory: Denies: DIAMOND (dyspnea on exertion), SOB. Cardiovascular: Denies: chest pain, edema, palpitations. GI: Reports: constipation. Objective Physical Exam VS/I O: Last Documented: Result Date Time Pulse Ox 98 12/07 1030 B/P 131/74 12/07 1030 B/P Mean 94 12/07 1030 Pulse 83 12/07 1030 Resp 16 12/07 0900 O2 Delivery Nasal cannula 12/07 0720 O2 Flow Rate 4.577443 12/07 0720 Temp 97.5 12/07 0000 FiO2 32 12/06 1943 24 hour I O ending at 0700: 12/07 0700 12/06 1900 Intake Total 170 Output Total 405 351 Balance -235 -351 Intake, Oral 170 Number 1 Bowel Movements Number Voids 5 3 Output, Chest 5 Tube Drainage Output, Urine 400 350 Output, 1 Urine/Stool Mix Medications: Active Meds + DC'd Last 24 Hrs Warfarin Sodium 10 MG DAILY PO (CAN) Enoxaparin Sodium 40 MG QAM SUBQ (DA) Albuterol/Ipratropium 3 ML RTQ6H INH (DC) Atorvastatin Calcium 40 MG BEDTIME PO Citalopram Hydrobromide 20 MG BEDTIME PO Docusate Sodium 100 MG BID PO Metoprolol Tartrate 25 MG BEDTIME PO Pantoprazole 20 MG BEDTIME PO Zolpidem Tartrate 10 MG BEDTIME PO Budesonide 0.25 MG RTQ12H NEB (DC) Acetaminophen 650 MG Q4H PRN PRN PO Acetaminophen 650 MG Q4H PRN PRN RECTAL Bisacodyl 5 MG DAILY PRN PRN PO Bisacodyl 10 MG DAILY PRN PRN RECTAL Hydrocodone Bitart/Acetaminophen 1 TAB Q4H PRN P RN PO Hydrocodone Bitart/Acetaminophen 2 TAB Q4H PRN P RN PO Magnesium Hydroxide 30 ML DAILY PRN PRN PO Meperidine HCl 25 MG Q4H PRN PRN IM Naloxone HCl 0.2 MG ASDIR PRN IV Ondansetron HCl 4 MG Q4H PRN PRN IV General appearance: alert, awake, oriented, no a cute distress HEENT: bilateral eye swollen and closed Neck: tenderness, neck swelling Cardiovascular: BP/pulses equal bilat., normal h eart sounds, regular rate rhythm Respiratory: aerating well, clear to auscultatio n, symmetric expansion, no distress, CT to suction no aie leak subq emphyse ma Abdomen: distended (mild), tenderness, normal priscilla wel sounds Genitourinary: no william Extremities: moves all, BUE swelling-subq emphys candice Neuro/PRODUCTION PLANNER SCHEDULER: alert, oriented X 3 Skin: subq enphysema Results Radiology data: Recent Impressions: RADIOLOGY - XR CHEST 1V 12/07 0540 Report Impression - Status: SIGNED Entered: 12/07/2018 0835 IMPRESSION: No acute findings or changes in the chest. Impression By: Ludwig Ghosh M.D. Diagnosis, Assessment Plan Free Text A P: This is a 63 Y/F with right lung nodules S/p Robotic assisted excision of right u pper lobe lung nodule. Staple excision of blebs right upper lobe of lung. Extensive subq emphysema-CT to suction-no air le ak today Caseating granuloma/fungal-final pathology-ID fo llowing CXR stable, no change on subq emphysema DVT prophylasix-lovenox Encourage IS and ambulation constipation-will dulcolax supp today NPO after breakfast for possible right chest tube insertion today. Dr. Rivera Plan discussed with: patient, family, collaborat latisha ASCENCIO (Dr. Rivera) at 1058 RPT #:[id number] END OF REPORT 2018-12-07 10:50:00-00:00 [facility] ([facility]) Cardiovascular Surgery Prog REPORT#:[id number] REPORT STATUS: Signed DATE:12/07/18 TIME: 1050 PATIENT: MOISÉS CANNON UNIT #: [id number] ROOM/BED: SI04-A : 55 AGE: 63 SEX: F ATTEND: Augustus Rivera MD ADM AUTHOR: Oumou Stanley NP * ALL edits or amendments must be made on the el [employer]/computer document * See Addendum General Post-op: day 7 Status post: Robotic assisted excision of right upper lobe pancho ng nodule. Staple excision of blebs right upper lobe of lung. Subjective Patient reports: No: chest pain, nausea, vomiting. Comments: Seen at bedside, sitting on the chair Denies CP or SOB Reports constipation. Burning sensation to abdom en Review of Systems Constitutional: Denies: chills, fever, generalized weakness. Respiratory: Denies: DIAMOND (dyspnea on exertion), SOB. Cardiovascular: Denies: chest pain, edema, palpitations. GI: Reports: constipation. Objective Physical Exam VS/I O: Last Documented: Result Date Time Pulse Ox 98 12/07 1030 B/P 131/74 12/07 1030 B/P Mean 94 12/07 1030 Pulse 83 12/07 1030 Resp 16 12/07 0900 O2 Delivery Nasal cannula 12/07 0720 O2 Flow Rate 4.035710 12/07 0720 Temp 97.5 12/07 0000 FiO2 32 12/06 1943 24 hour I O ending at 0700: 12/07 0700 12/06 1900 Intake Total 170 Output Total 405 351 Balance -235 -351 Intake, Oral 170 Number 1 Bowel Movements Number Voids 5 3 Output, Chest 5 Tube Drainage Output, Urine 400 350 Output, 1 Urine/Stool Mix Medications: Active Meds + DC'd Last 24 Hrs Warfarin Sodium 10 MG DAILY PO (CAN) Enoxaparin Sodium 40 MG QAM SUBQ (DA) Albuterol/Ipratropium 3 ML RTQ6H INH (DC) Atorvastatin Calcium 40 MG BEDTIME PO Citalopram Hydrobromide 20 MG BEDTIME PO Docusate Sodium 100 MG BID PO Metoprolol Tartrate 25 MG BEDTIME PO Pantoprazole 20 MG BEDTIME PO Zolpidem Tartrate 10 MG BEDTIME PO Budesonide 0.25 MG RTQ12H NEB (DC) Acetaminophen 650 MG Q4H PRN PRN PO Acetaminophen 650 MG Q4H PRN PRN RECTAL Bisacodyl 5 MG DAILY PRN PRN PO Bisacodyl 10 MG DAILY PRN PRN RECTAL Hydrocodone Bitart/Acetaminophen 1 TAB Q4H PRN P RN PO Hydrocodone Bitart/Acetaminophen 2 TAB Q4H PRN P RN PO Magnesium Hydroxide 30 ML DAILY PRN PRN PO Meperidine HCl 25 MG Q4H PRN PRN IM Naloxone HCl 0.2 MG ASDIR PRN IV Ondansetron HCl 4 MG Q4H PRN PRN IV General appearance: alert, awake, oriented, no a cute distress HEENT: bilateral eye swollen and closed Neck: tenderness, neck swelling Cardiovascular: BP/pulses equal bilat., normal h eart sounds, regular rate rhythm Respiratory: aerating well, clear to auscultatio n, symmetric expansion, no distress, CT to suction no aie leak subq emphyse ma Abdomen: distended (mild), tenderness, normal priscilla wel sounds Genitourinary: no william Extremities: moves all, BUE swelling-subq emphys candice Neuro/PRODUCTION PLANNER SCHEDULER: alert, oriented X 3 Skin: subq enphysema Results Radiology data: Recent Impressions: RADIOLOGY - XR CHEST 1V 12/07 0540 Report Impression - Status: SIGNED Entered: 12/07/2018 0835 IMPRESSION: No acute findings or changes in the chest. Impression By: [facility] Rosalinda Ghosh M.D. Diagnosis, Assessment Plan Free Text A P: This is a 63 Y/F with right lung nodules S/p Robotic assisted excision of right u pper lobe lung nodule. Staple excision of blebs right upper lobe of lung. Extensive subq emphysema-CT to suction-no air le ak today Caseating granuloma/fungal-final pathology-ID fo llowing CXR stable, no change on subq emphysema DVT prophylasix-lovenox Encourage IS and ambulation constipation-will dulcolax supp today NPO after breakfast for possible right chest tube insertion today. Dr. Rivera Plan discussed with: patient, family, collaborat latisha ASCENCIO (Dr. Rivera) at 1058 Addendum 1: 12/07/18 1805 by Oumou Stanley NP for Chris Rivera MD A/P Plan is for right chest tube insertion tomorrow OK to resume regular diet for dinner NPo after midnight D/c lovenox Dr. Rivera to follw. Plan d/w Dr. Rivera at 1807 RPT #:[id number] END OF REPORT 2018-12-07 10:50:00-00:00 [facility] ([facility]) Cardiovascular Surgery Prog REPORT#:[id number] REPORT STATUS: Signed DATE:12/07/18 TIME: 1050 PATIENT: MOISÉS CANNON UNIT #: [id number] [address] AGE: 63 SEX: F ATTEND: Augustus Rivera MD ADM AUTHOR: Oumou Stanley NP * ALL edits or amendments must be made on the [employer]/computer document * See Addendum General Post-op: day 7 Status post: Robotic assisted excision of right upper lobe pancho ng nodule. Staple excision of blebs right upper lobe of lung. Subjective Patient reports: No: chest pain, nausea, vomiting. Comments: Seen at bedside, sitting on the chair Denies CP or SOB Reports constipation. Burning sensation to abdom en Review of Systems Constitutional: Denies: chills, fever, generalized weakness. Respiratory: Denies: DIAMOND (dyspnea on exertion), SOB. Cardiovascular: Denies: chest pain, edema, palpitations. GI: Reports: constipation. Objective Physical Exam VS/I O: Last Documented: Result Date Time Pulse Ox 98 12/07 1030 B/P 131/74 12/07 1030 B/P Mean 94 12/07 1030 Pulse 83 12/07 1030 Resp 16 12/07 0900 O2 Delivery Nasal cannula 12/07 0720 O2 Flow Rate 4.767080 12/07 0720 Temp 97.5 12/07 0000 FiO2 32 12/06 1943 24 hour I O ending at 0700: 12/07 0700 12/06 1900 Intake Total 170 Output Total 405 351 Balance -235 -351 Intake, Oral 170 Number 1 Bowel Movements Number Voids 5 3 Output, Chest 5 Tube Drainage Output, Urine 400 350 Output, 1 Urine/Stool Mix Medications: Active Meds + DC'd Last 24 Hrs Warfarin Sodium 10 MG DAILY PO (CAN) Enoxaparin Sodium 40 MG QAM SUBQ (DA) Albuterol/Ipratropium 3 ML RTQ6H INH (DC) Atorvastatin Calcium 40 MG BEDTIME PO Citalopram Hydrobromide 20 MG BEDTIME PO Docusate Sodium 100 MG BID PO Metoprolol Tartrate 25 MG BEDTIME PO Pantoprazole 20 MG BEDTIME PO Zolpidem Tartrate 10 MG BEDTIME PO Budesonide 0.25 MG RTQ12H NEB (DC) Acetaminophen 650 MG Q4H PRN PRN PO Acetaminophen 650 MG Q4H PRN PRN RECTAL Bisacodyl 5 MG DAILY PRN PRN PO Bisacodyl 10 MG DAILY PRN PRN RECTAL Hydrocodone Bitart/Acetaminophen 1 TAB Q4H PRN P RN PO Hydrocodone Bitart/Acetaminophen 2 TAB Q4H PRN P RN PO Magnesium Hydroxide 30 ML DAILY PRN PRN PO Meperidine HCl 25 MG Q4H PRN PRN IM Naloxone HCl 0.2 MG ASDIR PRN IV Ondansetron HCl 4 MG Q4H PRN PRN IV General appearance: alert, awake, oriented, no a cute distress HEENT: bilateral eye swollen and closed Neck: tenderness, neck swelling Cardiovascular: BP/pulses equal bilat., normal h eart sounds, regular rate rhythm Respiratory: aerating well, clear to auscultatio n, symmetric expansion, no distress, CT to suction no aie leak subq emphyse ma Abdomen: distended (mild), tenderness, normal priscilla wel sounds Genitourinary: no william Extremities: moves all, BUE swelling-subq emphys candice Neuro/PRODUCTION PLANNER SCHEDULER: alert, oriented X 3 Skin: subq enphysema Results Radiology data: Recent Impressions: RADIOLOGY - XR CHEST 1V 12/07 0540 Report Impression - Status: SIGNED Entered: 12/07/2018 0835 IMPRESSION: No acute findings or changes in the chest. Impression By: [facility] Rosalinda Ghosh M.D. Diagnosis, Assessment Plan Free Text A P: This is a 63 Y/F with right lung nodules S/p Robotic assisted excision of right u pper lobe lung nodule. Staple excision of blebs right upper lobe of lung. Extensive subq emphysema-CT to suction-no air le ak today Caseating granuloma/fungal-final pathology-ID fo llowing CXR stable, no change on subq emphysema DVT prophylasix-lovenox Encourage IS and ambulation constipation-will dulcolax supp today NPO after breakfast for possible right chest tube insertion today. Dr. Rivera Plan discussed with: patient, family, collaborat ing (Dr. Rivera) at 1058 at 2351 Addendum 1: 12/07/18 1805 by Oumou Stanley NP A/P Plan is for right chest tube insertion tomorrow OK to resume regular diet for dinner NPo after midnight D/c lovenox Dr. Rivera to follw. Plan d/w Dr. Rivera at 1807 at 2351 RPT #:[id number] END OF REPORT 2018-12-07 06:56:00-00:00 [facility] ([facility]) Cardiology Progress Note REPORT#:[id number] REPORT STATUS: Signed DATE:12/07/18 TIME: 655 PATIENT: MOISÉS CANNON UNIT #: [id number] [address]OM[address]BED: [address] : 55 AGE: 63 SEX: F ATTEND: Augustus Rivera MD ADM AUTHOR: Miguel Chawla MD * ALL edits or amendments must be made on the [employer]/computer document * Subjective Chief Complaint: post-op CP, less SOB HPI: Continued significant facial swelling with subcu taneous emphysema. No cardiac complaints. Objective General VS/I O: 24 hour I O ending at 0700: 12/07 0700 12/06 1900 Intake Total 170 Output Total 405 351 Balance -235 -351 Intake, Oral 170 Number 1 Bowel Movements Number Voids 5 3 Output, Chest 5 Tube Drainage Output, Urine 400 350 Output, 1 Urine/Stool Mix Vital Signs: Date Time Temp Pulse Resp B/P B/P Pulse O2 O2 F low FiO2 Mean Ox Delivery Rate 12/07 0600 76 18 98 12/07 0507 77 15 112/82 94 94 12/07 0500 77 16 95 12/07 0407 77 23 120/80 95 94 12/07 0307 78 21 112/83 94 95 12/07 0300 24 97 12/07 0230 97 12/07 0207 75 129/79 97 94 12/07 0130 22 95 12/07 0107 77 143/65 94 94 12/07 0100 81 28 97 12/07 0007 79 30 123/63 86 12/07 0000 97.5 12/07 0000 97.5 12/07 0000 93 12/06 2330 79 30 96 12/06 2207 81 32 140/75 100 98 12/06 2107 98 34 129/57 85 96 12/06 2006 105 29 145/58 85 96 12/07 1999 97.2 12/06 1943 94 Nasal 3.483198 32 cannula 12/06 1930 Nasal 4.172517 cannula 12/06 1920 107 24 143/77 104 96 12/06 1807 103 25 139/79 99 96 12/06 1725 28 12/06 1707 103 34 133/82 101 94 12/06 1607 110 132/77 99 92 12/06 1600 97.6 12/06 1507 104 33 142/80 106 95 12/06 1407 104 131/96 108 93 12/06 1307 105 24 139/73 100 92 12/06 1245 94 Nasal 2.075044 28 cannula 12/06 1207 101 28 125/84 101 93 12/06 1200 97.4 12/06 1107 111 115/68 85 93 12/06 1100 25 12/06 1007 104 131/81 99 94 12/06 0907 102 31 125/71 92 93 12/06 0800 97.4 12/06 0800 Venti mask 8.564080 12/06 0757 103 154/64 92 88 12/06 0727 93 25 163/81 116 99 12/06 0722 32 Nasal 3.063544 94 cannula Status post: Robotic assisted excision of right upper lobe pancho ng nodule. Staple excision of blebs right upper lobe of lung. Physical Exam General appearance: alert, awake, oriented Head/Eyes: atraumatic, normocephalic, PERRLA ENT: moist mucosal membranes Neck: supple/no meningismus, no bruit/NL carotids, no JVD, no masses or swelling Cardiovascular: CV assessment: regular rate and rhythm, BP puls es = bilaterally, normal heart sounds, no murmur Respiratory: dullness to percussion, on oxygen, clear to auscultation, no distress Abdomen: soft, non-tender, no mass/organ omegaly, no pulsatile mass, no rebound Lower extremity: LE assessment: no edema, 2+ peripheral pulses Musculoskeletal: full range of motion Neuro/PRODUCTION PLANNER SCHEDULER: alert, oriented X 3, CN II-XII intact , no motor deficits Psychiatry: normal affect, normal judgment/insig ht, normal mood, no hallucinations Diagnosis, Assessment Plan Free Text DxA P Notes Free Text DxA P Notes: IMPRESSION: S/P Robotic assisted excision of right upper lo be lung nodule. Staple excision of blebs right upper lobe of lung. R PTX - subcutaneous emphysema CAD-stable HTN HLP PVC's PAD AAA S/P EVAR COPD RECOMMEND: Continue current medical rx. Ambulate at 0717 [facility] #:[id number] END OF REPORT 2018-12-06 20:49:00-00:00 [id number] [place] [address] PATIENT NAME: MOISÉS CANNON ADMIT JOHNNY E: 11/30/18 ACCOUNT NO: [id number] ROOM NO: Z.SI04 AGE: 63 REPORT TYPE: PROGRESS NOTE SEX: F ADMITTING PHYSICIAN:Karen Vasquez MD ATTENDING PHYSICIAN:Chris Rivera MD DATE: 12/06/2018 CARDIAC SURGERY SERVICE SUBJECTIVE: Patient at bedside in the ICU. The p atient is currently stable. Vital signs are stable. She has slightly less barth bcutaneous air compared to yesterday. Chest x-ray shows slight improvement. I do not see an air leak in her chest tube at this time. I had a long discussion with the patient's son and daughter who was on the phone with us. We discussed her case, current status a nd plans. We will reevaluate the patient tomorrow with chest x-ray and also c linical evaluation. We may decide to place a new pleural chest tube in posi tion in case this is not draining adequately. This was discussed in detail with the patient and family. We will make a decision tomorrow afternoon. Dictated By: Chris Rivera MD WT: PN:IVETT/SOPHIA/JANNIE Conf#: [id number]/DID#: [id number] Authenticated by Chris Rivera MD On 019 07:39:27 AM at 0739 PATIENT NAME: MOISÉS CANNON 2018-12-06 16:15:00-00:00 [id number] [place] [address] PATIENT NAME: MOISÉS CANNON ADMIT JOHNNY E: 11/30/18 ACCOUNT NO: [id number] ROOM NO: Z.SI04 AGE: 63 REPORT TYPE: CONSULTATION REPORT SEX: F ADMITTING PHYSICIAN:Karen Vasquez MD ATTENDING PHYSICIAN:Chris Rivera MD CONSULTATION DATE: 12/06/2018 CONSULTING PHYSICIAN: Angie Montes MD INPATIENT INFECTIOUS DISEASE CONSULTATION CHIEF COMPLAINT: This is a 63-year-old woman wit h a fungal pneumonia. HISTORY OF PRESENT ILLNESS: This is a 63-year-ol d woman with a past medical history significant for COPD, who was found to h ave a mass in her right upper lobe. She is status post a right upper l obectomy. Pathology has found yeast on biopsy. She is status post right upper l obectomy and currently is dealing with subcutaneous emphysema. CURRENT MEDICATIONS: Include no antibiotics. ALLERGIES: NO KNOWN DRUG ALLERGIES. PAST MEDICAL HISTORY: 1. Hyperlipidemia. 2. Hypertension. 3. Chronic obstructive pulmonary disease. 4. Coronary artery disease. 5. Peripheral vascular disease. 6. Abdominal aortic aneurysm. PAST SURGICAL HISTORY: 1. Right upper lobectomy. 2. Abdominal aortic aneurysm repair. 3. Back surgery. SOCIAL HISTORY: Past history of smoking. FAMILY HISTORY: Reviewed and noncontributory. REVIEW OF SYSTEMS: CONSTITUTIONAL: No recent fevers or chills. EYES: No blurry or double vision. HEENT: No sore throat, dysphagia, or odynophagia . No ear discharge, earache, or URI. CARDIOVASCULAR: No chest pain, pressure, or palp itations. RESPIRATORY: No cough or sputum production. PATIENT NAME: MOISÉS CANNON GASTROINTESTINAL: No nausea, vomiting, or diarrh ea. GENITOURINARY: No dysuria, polyuria, or burning on urination. MUSCULOSKELETAL: No myalgias or arthralgias. INTEGUMENTARY: No rashes or itching. NEUROLOGIC: No numbness or tingling. No history of seizures or strokes. PSYCHIATRIC: No sleeplessness or symptoms of dep ression. ENDOCRINE: No history of diabetes or hypothyroid ism. HEMATOLOGIC/LYMPHATIC: No history of underlying malignancy. ALLERGIC/IMMUNOLOGIC: No history of seasonal all ergies. PHYSICAL EXAMINATION: VITAL SIGNS: Temperature 97. 1, T-max 97.5, respirations 33, heart rate 105, and blood pressure 134/67. CONSTITUTIONAL: This is an elderly woman, lying in bed, in no acute distress. HEAD: She has significant amounts of swelling of the eyes and face. MOUTH, NOSE, AND THROAT: Mucous membranes are pi nk and moist. NECK: She has a right IJ triple lumen catheter. CHEST: She has a chest tube in place. GENITOURINARY: There is no William catheter. EXTREMITIES: Peripheral IVs. NEUROLOGIC: Awake and alert. PSYCHIATRIC: Affect to situation appropriate. LYMPHATICS: No significant lymphadenopathy is no aleksandra. LABORATORY STUDIES: White blood cell count 8.7, hemoglobin 11, and platelets 281. BUN 11, creatinine 0.6, and glucose 109. IMPRESSION: 1. Fungal pneumonia. 2. Chronic obstructive pulmonary disease. 3. Coronary artery disease. PLAN: We will go ahead and run fungal se rologies to see if we can identify the cause of the fungal granuloma. Case discussed wi th family at the bedside. Dictated By: Angie Montes MD WT: CON:ZHUI/LORI/JANNIE Conf#: [id number]/DID#: [id number] Authenticated by Angie Montes MD On 12/23/2018 1 2:26:06 PM Electronically Signed by Angie Montes MD on at 1226 PATIENT NAME: MOISÉS CANNON 2018-12-06 11:47:00-00:00 [facility] ([facility]) Hospitalist Progress Note REPORT#:[id number] REPORT STATUS: Signed DATE:12/06/18 TIME: 1147 PATIENT: MOISÉS CANNON UNIT #: [id number] ROOM/BED: SI04-A : 55 AGE: 63 SEX: F ATTEND: Augustus Rivera MD ADM AUTHOR: Ana Haas MD * ALL edits or amendments must be made on the el [employer]/computer document * Subjective Chief Complaint: Breathing is okay. Tenderness at the chest tube site. swelling in the face is slowly going down. Cannot open eyes. Review of Systems Constitutional: Reports: fatigue, generalized weakness. Denies: fever. Eyes: Reports: swelling. ENT: Denies: sore throat. Respiratory: Reports: SOB. Cardiovascular: Reports: chest pain (Soreness of the [place] st), DIAMOND (dyspnea on exertion), edema. GI: Denies: diarrhea, vomiting. Neuro: Denies: confusion, dizziness. Systems reviewed negative: Allergy/Immun , Constitutional, Endocrine, ENT, Eyes , GI, , Heme, Musculoskeletal, Neuro, Psych, S kin Objective General VS/I O: Vital Signs: Date Time Temp Pulse Resp B/P B/P Pulse O2 O2 F low FiO2 Mean Ox Delivery Rate 12/06 1245 94 Nasal 2.944000 28 cannula 12/06 0722 32 Nasal 3.361301 94 cannula 12/06 0600 105 33 90 12/06 0557 99 34 134/67 95 94 12/06 0531 100 28 129/93 108 96 12/06 0457 96 33 150/91 130 95 12/06 0430 98 26 127/92 106 97 12/06 0403 102 31 150/88 127 96 12/06 0400 97.1 12/06 0400 103 94 12/06 0330 104 137/84 101 91 12/06 0300 100 109/87 96 91 12/06 0230 101 36 135/67 87 90 12/06 0200 101 38 142/74 94 91 12/06 0130 100 135/68 89 88 12/06 0100 91 136/63 90 94 12/06 0044 22 12/06 0039 94 17 119/71 88 97 12/06 0000 97.3 12/06 0000 87 27 136/81 103 100 12/05 2344 22 12/05 2330 94 29 133/67 94 12/05 2314 18 12/05 2300 92 17 152/79 110 100 12/05 2230 87 22 115/76 92 96 12/05 2200 89 19 121/68 87 95 12/05 2151 90 26 134/74 97 95 12/05 2135 17 12/05 2114 92 33 96 12/05 2020 95 Nasal 4.589989 36 cannula 12/05 2000 97.5 12/05 1930 Nasal 4.553023 cannula 12/05 1640 100 20 123/86 98 97 Nasal 4.510396 cannula 12/05 1553 97.3 24 hour I O ending at 0700: 12/06 0700 12/05 1900 Intake Total 290 50 Output Total 3490 800 Balance -3200 -750 Intake, Oral 290 50 Number Voids 6 Output, Chest 0 Tube Drainage Output, Urine 3490 800 Physical Exam Head/Eyes: abnormal eyelids, abnormal periorbita l ENT: normal dentition, normal ear left, normal e ar right, normal nose, normal pharynx, normal sinus Neck: full range of motion, non-tender, normal thyroid, supple/no meningismus, no bruit/NL carotids, no JVD, no masses or swell ing Cardiovascular: normal capillary refill, regular rate rhythm Respiratory: chest wall tenderness Abdomen: distended, tenderness, normal bowel yanelis nds Extremities: edema, moves all, normal capillary refill Musculoskeletal: normal inspection Neuro/PRODUCTION PLANNER SCHEDULER: alert, oriented X 3 Skin: subq emphysema (face, neck and chest ), dr reyes, intact Wound/incision: Site Condition: dressing clean dry, dressing in tact Treatment Prophylaxis Treatment Prophylaxis William documentation: The data below has been impo rted from nursing documentation. Any exceptions have been noted below under Provider comments. _ Nursing Documentation Date william inserted: 11/30/18 Date william discontinued: 12/01/18 _ Provider comments: [] CVC/PICC documentation: CVC/PICC insertion date/time: CVC multi lumen do uble Internal jugular Right Inserted 11/30/18 1700 Diagnosis, Assessment Plan Free Text DxA P Notes Free text DxA P notes: Assesment: -RUL nodule/blebs s/p excision -Dyspnea on exertion -Extensive subcutaneous emphysema Plan: -Continue oxygen as needed -cont nebs , pulmicort -Monitor chest tube output; Management per CT barth rgeon -Continue home meds as appropriate -pain control -DVT prophylaxis - SCD 12/02 cont chest tube cont oxygen, nebs management per [facility] dvt ppx: [facility] [place] 12/03 pt is stable, transfer out icu cont chest tube cont cont management 12/04 transferred back to ICU bc of sq emphysema- CV s x following Chest Xray shows worsening s ubcutaneous emphysema otherwise stable appearance of the chest Cont Chest tube Cont current management on clear liquid diet. DVT prophylaxis: [facility] [place] 12/05 -Chest Xray shows worsening subcutaneous emphysema and development of bibasilar atelectasis and questionable small pneumomediast inum. 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 -Encourage IS and ambulation -Granddaughter at bedside -Caseating granuloma/fungal-final pathology-ID c onsulted -Cont Chest tube -Cont current management -DVT prophylasix-lovenox Quality Medications Current medication review: I attest that the foregoing medication list in t he medical record is true, accurate, and complete to the best of my knowled ge. Electronically Signed by Ana Haas MD on at 1535 RPT #:[id number] END OF REPORT 2018-12-06 10:20:00-00:00 [facility] ([facility]) Cardiovascular Surgery Prog REPORT#:[id number] REPORT STATUS: Signed DATE:12/06/18 TIME: 1020 PATIENT: MOISÉS CANNON UNIT #: [id number] ROOM/BED: [facility]04-A : 55 AGE: 63 SEX: F ATTEND: Augustus Rivera MD ADM AUTHOR: Oumou Stanley NP * ALL edits or amendments must be made on the [employer]/computer document * General Post-op: day 6 Status post: Robotic assisted excision of right upper lobe pancho ng nodule. Staple excision of blebs right upper lobe of lung. Subjective Comments: Seen at bedside, sitting on the chair Denies CP or SOB, on nasal cannula. Still with subq emhysema. Bilateral Eyes swollen Review of Systems Constitutional: Denies: chills, fever, generalized weakness. Respiratory: Denies: DIAMOND (dyspnea on exertion), SOB. Cardiovascular: Denies: chest pain, DIAMOND (dyspnea on exer tion), edema, orthopnea, palpitations. Objective Physical Exam VS/I O: Last Documented: Result Date Time Pulse Ox 32 12/06 0722 FiO2 94 12/06 0722 O2 Delivery Nasal cannula 12/06 0722 O2 Flow Rate 3.686438 12/06 0722 Pulse 105 12/06 0600 Resp 33 12/06 0600 B/P 134/67 12/06 0557 B/P Mean 95 12/06 0557 Temp 97.1 12/06 0400 24 hour I O ending at 0700: 12/06 0700 12/05 1900 Intake Total 290 50 Output Total 3490 800 Balance -3200 -750 Intake, Oral 290 50 Number Voids 6 Output, Chest 0 Tube Drainage Output, Urine 3490 800 Medications: Active Meds + DC'd Last 24 Hrs Enoxaparin Sodium 40 MG QAM SUBQ Albuterol/Ipratropium 3 ML RTQ6H INH Atorvastatin Calcium 40 MG BEDTIME PO Citalopram Hydrobromide 20 MG BEDTIME PO Docusate Sodium 100 MG BID PO Metoprolol Tartrate 25 MG BEDTIME PO Pantoprazole 20 MG BEDTIME PO Zolpidem Tartrate 10 MG BEDTIME PO Budesonide 0.25 MG RTQ12H NEB Acetaminophen 650 MG Q4H PRN PRN PO Acetaminophen 650 MG Q4H PRN PRN RECTAL Bisacodyl 5 MG DAILY PRN PRN PO Bisacodyl 10 MG DAILY PRN PRN RECTAL Hydrocodone Bitart/Acetaminophen 1 TAB Q4H PRN P RN PO Hydrocodone Bitart/Acetaminophen 2 TAB Q4H PRN P RN PO Magnesium Hydroxide 30 ML DAILY PRN PRN PO Meperidine HCl 25 MG Q4H PRN PRN IM Naloxone HCl 0.2 MG ASDIR PRN IV Ondansetron HCl 4 MG Q4H PRN PRN IV General appearance: alert, awake, oriented, no a cute distress Wound/incision: Location: right thoracotomy, Right chest tube s ite Site condition: dressing clean dry, dressing in tact, no drainage HEENT: bilateral eye swollen and closed Neck: tenderness, neck swelling Cardiovascular: BP/pulses equal bilat., normal h eart sounds, regular rate rhythm Respiratory: aerating well, clear to auscultatio n, symmetric expansion, no distress, CT to suction no aie leak subq emphyse ma Abdomen: distended (mild), tenderness, normal priscilla wel sounds Genitourinary: no william Extremities: moves all, BUE swelling-subq emphys candice Neuro/PRODUCTION PLANNER SCHEDULER: alert, oriented X 3 Skin: subq enphysema Results Findings/Data: Laboratory Tests 12/07 419 Chemistry Sodium (137 - 145 MMOL/L) 135 L Potassium (3.5 - 5.1 MMOL/L) 3.8 Chloride (98 - 107 MMOL/L) 98 Carbon Dioxide (22 - 30 MMOL/L) 32 H BUN (7 - 17 MG/DL) 11 Creatinine (0.52 - 1.04 MG/DL) 0.60 Glomerular Filtr Rate > 60 Glucose (74 - 106 MG/DL) 109 H Calcium (8.4 - 10.2 MG/DL) 9.1 Magnesium (1.6 - 2.3 MG/DL) 2.0 Laboratory Tests 12/07 419 Hematology WBC (3.8 - 9.8 K/MM3) 8.7 RBC (3.58 - 4.97 M/MM3) 4.07 Hgb (11.2 - 14.9 G/DL) 11.6 Hct (33.2 - 43.5 %) 37.0 MCV (80.7 - 99.1 fL) 91 MCH (27.0 - 34.1 pg) 28.5 MCHC (32.2 - 35.7 %) 31.4 L RDW (12.1 - 15.2 %) 14.7 Plt Count (129 - 368 K/MM3) 281 MPV (7.4 - 10.4 fl) 9.7 Neut % (Auto) (43 - 75 %) 73.9 Lymph % (Auto) (14 - 44 %) 14.7 [place] % (Auto) (4 - 13 %) 8.6 Eos % (Auto) (0 - 6 %) 2.1 Baso % (Auto) (0 - 2 %) 0.2 Neut # (Auto) (2.0 - 7.6 K/mm3) 6.45 Lymph # (Auto) (1.0 - 3.8 K/mm3) 1.28 [place] # (Auto) (0.1 - 0.8 K/mm3) 0.75 Eos # (Auto) (0.0 - 0.2 K/mm3) 0.18 Baso # (Auto) (0.0 - 0.2 K/mm3) 0.02 Immature Gran % (0.0 - 2.0 %) 0.5 Nucleated RBC % (0 - 1.0 %) 0.0 Nucleated RBCs # (Man) (0.0 - 0.1 K/mm3) 0.00 Radiology data: Recent Impressions: RADIOLOGY - XR CHEST 1V 12/06 0563 Report Impression - Status: SIGNED Entered: 12/06/2018 1874 IMPRESSION: Overall improved appearance of the c hest with no unfavorable findings over 2 days. Impression By: [facility] Rosalinda Ghosh M.D. Diagnosis, Assessment Plan Free Text A P: This is a 63 Y/F with right lung nodules S/p Robotic assisted excision of right u pper lobe lung nodule. Staple excision of blebs right upper lobe of lung. Extensive subq emphysema Caseating granuloma/fungal-final pathology-ID co nsulted. CXR stable, no change on subq emphysema CT to suction-no air leak today DVT prophylasix-lovenox Encourage IS and ambulation status d/w Dr. Rivera-no surgical interventions planned. Will continue with current management. D/W grand-daughter patient condition at and Kari Rivera will follow. Will monitor closely. Orders: Procedure Date/time Status Chest Tube Management 12/06 1019 Active INFECTIOUS DISEASE CONSULT 12/06 0853 Active Plan discussed with: patient, collaborating MD ( Dr. Rivera) at 2206 RPT #:[id number] END OF REPORT 2018-12-06 10:20:00-00:00 [facility] ([facility]) Cardiovascular Surgery Prog REPORT#:[id number] REPORT STATUS: Signed DATE:12/06/18 TIME: 1020 PATIENT: MOISÉS CANNON UNIT #: [id number] ROOM[address]BED: [address] : [address] AGE: 63 SEX: F ATTEND: Augustus Rivera MD ADM AUTHOR: Oumou Stanley NP * ALL edits or amendments must be made on the [employer]/computer document * General Post-op: day 6 Status post: Robotic assisted excision of right upper lobe pancho ng nodule. Staple excision of blebs right upper lobe of lung. Subjective Comments: Seen at bedside, sitting on the chair Denies CP or SOB, on nasal cannula. Still with subq emhysema. Bilateral Eyes swollen Review of Systems Constitutional: Denies: chills, fever, generalized weakness. Respiratory: Denies: DIAMOND (dyspnea on exertion), SOB. Cardiovascular: Denies: chest pain, DIAMOND (dyspnea on exer tion), edema, orthopnea, palpitations. Objective Physical Exam VS/I O: Last Documented: Result Date Time Pulse Ox 32 12/06 07 FiO2 94 12/06 07 O2 Delivery Nasal cannula 12/06 07 O2 Flow Rate 3.887654 12/06 0722 Pulse 105 12/06 0600 Resp 33 12/06 0600 B/P 134/67 12/06 0557 B/P Mean 95 12/06 0557 Temp 97.1 12/06 0400 24 hour I O ending at 0700: 12/06 0700 12/05 1900 Intake Total 290 50 Output Total 3490 800 Balance -3200 -750 Intake, Oral 290 50 Number Voids 6 Output, Chest 0 Tube Drainage Output, Urine 3490 800 Medications: Active Meds + DC'd Last 24 Hrs Enoxaparin Sodium 40 MG QAM SUBQ Albuterol/Ipratropium 3 ML RTQ6H INH Atorvastatin Calcium 40 MG BEDTIME PO Citalopram Hydrobromide 20 MG BEDTIME PO Docusate Sodium 100 MG BID PO Metoprolol Tartrate 25 MG BEDTIME PO Pantoprazole 20 MG BEDTIME PO Zolpidem Tartrate 10 MG BEDTIME PO Budesonide 0.25 MG RTQ12H NEB Acetaminophen 650 MG Q4H PRN PRN PO Acetaminophen 650 MG Q4H PRN PRN RECTAL Bisacodyl 5 MG DAILY PRN PRN PO Bisacodyl 10 MG DAILY PRN PRN RECTAL Hydrocodone Bitart/Acetaminophen 1 TAB Q4H PRN P RN PO Hydrocodone Bitart/Acetaminophen 2 TAB Q4H PRN P RN PO Magnesium Hydroxide 30 ML DAILY PRN PRN PO Meperidine HCl 25 MG Q4H PRN PRN IM Naloxone HCl 0.2 MG ASDIR PRN IV Ondansetron HCl 4 MG Q4H PRN PRN IV General appearance: alert, awake, oriented, no a cute distress Wound/incision: Location: right thoracotomy, Right chest tube s ite Site condition: dressing clean dry, dressing in tact, no drainage HEENT: bilateral eye swollen and closed Neck: tenderness, neck swelling Cardiovascular: BP/pulses equal bilat., normal h eart sounds, regular rate rhythm Respiratory: aerating well, clear to auscultatio n, symmetric expansion, no distress, CT to suction no aie leak subq emphyse ma Abdomen: distended (mild), tenderness, normal priscilla wel sounds Genitourinary: no william Extremities: moves all, BUE swelling-subq emphys candice Neuro/PRODUCTION PLANNER SCHEDULER: alert, oriented X 3 Skin: subq enphysema Results Findings/Data: Laboratory Tests 12/06 0420 Chemistry Sodium (137 - 145 MMOL/L) 135 L Potassium (3.5 - 5.1 MMOL/L) 3.8 Chloride (98 - 107 MMOL/L) 98 Carbon Dioxide (22 - 30 MMOL/L) 32 H BUN (7 - 17 MG/DL) 11 Creatinine (0.52 - 1.04 MG/DL) 0.60 Glomerular Filtr Rate > 60 Glucose (74 - 106 MG/DL) 109 H Calcium (8.4 - 10.2 MG/DL) 9.1 Magnesium (1.6 - 2.3 MG/DL) 2.0 Laboratory Tests 12/06 0420 Hematology WBC (3.8 - 9.8 K/MM3) 8.7 RBC (3.58 - 4.97 M/MM3) 4.07 Hgb (11.2 - 14.9 G/DL) 11.6 Hct (33.2 - 43.5 %) 37.0 MCV (80.7 - 99.1 fL) 91 MCH (27.0 - 34.1 pg) 28.5 MCHC (32.2 - 35.7 %) 31.4 L RDW (12.1 - 15.2 %) 14.7 Plt Count (129 - 368 K/MM3) 281 MPV (7.4 - 10.4 fl) 9.7 Neut % (Auto) (43 - 75 %) 73.9 Lymph % (Auto) (14 - 44 %) 14.7 [place] % (Auto) (4 - 13 %) 8.6 Eos % (Auto) (0 - 6 %) 2.1 Baso % (Auto) (0 - 2 %) 0.2 Neut # (Auto) (2.0 - 7.6 K/mm3) 6.45 Lymph # (Auto) (1.0 - 3.8 K/mm3) 1.28 [place] # (Auto) (0.1 - 0.8 K/mm3) 0.75 Eos # (Auto) (0.0 - 0.2 K/mm3) 0.18 Baso # (Auto) (0.0 - 0.2 K/mm3) 0.02 Immature Gran % (0.0 - 2.0 %) 0.5 Nucleated RBC % (0 - 1.0 %) 0.0 Nucleated RBCs # (Man) (0.0 - 0.1 K/mm3) 0.00 Radiology data: Recent Impressions: RADIOLOGY - XR CHEST 1V 12/06 4040 Report Impression - Status: SIGNED Entered: 12/06/2018 6669 IMPRESSION: Overall improved appearance of the c hest with no unfavorable findings over 2 days. Impression By: [facility] Rosalinda Ghosh M.D. Diagnosis, Assessment Plan Free Text A P: This is a 63 Y/F with right lung nodules S/p Robotic assisted excision of right u pper lobe lung nodule. Staple excision of blebs right upper lobe of lung. Extensive subq emphysema Caseating granuloma/fungal-final pathology-ID co nsulted. CXR stable, no change on subq emphysema CT to suction-no air leak today DVT prophylasix-lovenox Encourage IS and ambulation status d/w Dr. Rivera-no surgical interventions planned. Will continue with current management. D/W grand-daughter patient condition at and D abena Rivera will follow. Will monitor closely. Orders: Procedure Date/time Status Chest Tube Management 12/06 1019 Active INFECTIOUS DISEASE CONSULT 12/06 0853 Active Plan discussed with: patient, collaborating MD ( Dr. Rivera) at 2206 at 2351 RPT #:[id number] END OF REPORT 2018-12-06 06:55:00-00:00 [facility] ([facility] Cardiology Progress Note REPORT#:[id number] REPORT STATUS: Signed DATE:12/06/18 TIME: 0655 PATIENT: MOISÉS CANNON UNIT #: [id number] ROOM[address]BED: [address] : 55 AGE: 63 SEX: F ATTEND: Augustus Rivera MD ADM AUTHOR: Miguel Chawla MD * ALL edits or amendments must be made on the [employer]/computer document * Subjective Chief Complaint: post-op CP, less SOB Patient reports: No: chest pain, palpitations, shortness of breat h. Objective General VS/I O: 24 hour I O ending at 0700: 12/06 0700 12/05 1900 Intake Total 290 50 Output Total 3490 800 Balance -3200 -750 Intake, Oral 290 50 Number Voids 6 Output, Chest 0 Tube Drainage Output, Urine 3490 800 Vital Signs: Date Time Temp Pulse Resp B/P B/P Pulse O2 O2 Fl ow FiO2 Mean Ox Delivery Rate 12/06 0600 105 33 90 12/06 0557 99 34 134/67 95 94 12/06 0531 100 28 129/93 108 96 12/06 0457 96 33 150/91 130 95 12/06 0430 98 26 127/92 106 97 12/06 0403 102 31 150/88 127 96 12/06 0400 97.1 12/06 0400 103 94 12/06 0330 104 137/84 101 91 12/06 0300 100 109/87 96 91 12/06 0230 101 36 135/67 87 90 12/06 0200 101 38 142/74 94 91 12/06 0130 100 135/68 89 88 12/06 0100 91 136/63 90 94 12/06 0044 22 12/06 0039 94 17 119/71 88 97 12/06 0000 97.3 12/06 0000 87 27 136/81 103 100 12/05 2344 22 12/05 2330 94 29 133/67 94 12/05 2314 18 12/05 2300 92 17 152/79 110 100 12/05 2230 87 22 115/76 92 96 12/05 2200 89 19 121/68 87 95 12/05 2151 90 26 134/74 97 95 12/05 2135 17 12/05 2114 92 33 96 12/05 2020 95 Nasal 4.742814 36 cannula 12/05 2000 97.5 12/05 1930 Nasal 4.772381 cannula 12/05 1640 100 20 123/86 98 97 Nasal 4.939057 cannula 12/05 1553 97.3 12/05 1330 143/87 105 95 Nasal 4.157661 cannula 12/05 1230 98 27 120/73 88 93 Nasal 4.574100 cannula 12/05 1200 97.4 12/05 1200 120/60 80 12/05 1130 103 19 120/73 88 96 Nasal 4.201163 cannula 12/05 1100 108 28 120/58 78 100 Nasal 4.030461 cannula 12/05 1030 106 30 110/63 78 91 Nasal 4.814788 cannula 12/05 1000 106 123/74 90 93 Venti mask 10.29528 0 12/05 0930 98 24 131/75 93 95 Venti mask 10.0000 00 12/05 0905 97 14 97 12/05 0858 100 21 12/05 0853 98 16 98/70 80 94 12/05 0800 97.4 12/05 0800 97 22 109/67 82 92 12/05 0730 Venti mask 10.261011 35 12/05 0730 88 15 108/78 87 100 12/05 0717 97 Venti mask 10.813829 35 12/05 0700 87 26 122/82 98 93 Medications: Active Meds + DC'd Last 24 Hrs Enoxaparin Sodium 40 MG QAM SUBQ Albuterol/Ipratropium 3 ML RTQ6H INH Mupirocin 1 APPLIC BID NASAL (DC) Atorvastatin Calcium 40 MG BEDTIME PO Citalopram Hydrobromide 20 MG BEDTIME PO Docusate Sodium 100 MG BID PO Metoprolol Tartrate 25 MG BEDTIME PO Pantoprazole 20 MG BEDTIME PO Zolpidem Tartrate 10 MG BEDTIME PO Budesonide 0.25 MG RTQ12H NEB Acetaminophen 650 MG Q4H PRN PRN PO Acetaminophen 650 MG Q4H PRN PRN RECTAL Bisacodyl 5 MG DAILY PRN PRN PO Bisacodyl 10 MG DAILY PRN PRN RECTAL Hydrocodone Bitart/Acetaminophen 1 TAB Q4H PRN P RN PO Hydrocodone Bitart/Acetaminophen 2 TAB Q4H PRN P RN PO Magnesium Hydroxide 30 ML DAILY PRN PRN PO Meperidine HCl 25 MG Q4H PRN PRN IM Naloxone HCl 0.2 MG ASDIR PRN IV Ondansetron HCl 4 MG Q4H PRN PRN IV Post-op: day 1 Status post: Robotic assisted excision of right upper lobe pancho ng nodule. Staple excision of blebs right upper lobe of lung. Physical Exam General appearance: alert, awake, oriented Head/Eyes: atraumatic, normocephalic, PERRLA ENT: moist mucosal membranes Neck: supple/no meningismus, no bruit/NL carotids, no JVD, no masses or swelling Cardiovascular: CV assessment: regular rate and rhythm, BP puls es = bilaterally, normal heart sounds, no murmur Respiratory: dullness to percussion, on oxygen, clear to auscultation, no distress Abdomen: soft, non-tender, no mass/organ omegaly, no pulsatile mass, no rebound Lower extremity: LE assessment: no edema, 2+ peripheral pulses Musculoskeletal: full range of motion Neuro/PRODUCTION PLANNER SCHEDULER: alert, oriented X 3, CN II-XII intact , no motor deficits Psychiatry: normal affect, normal judgment/insig ht, normal mood, no hallucinations Results Findings/Data: Laboratory Tests 12/07 419 Chemistry Sodium (137 - 145 MMOL/L) 135 L Potassium (3.5 - 5.1 MMOL/L) 3.8 Chloride (98 - 107 MMOL/L) 98 Carbon Dioxide (22 - 30 MMOL/L) 32 H BUN (7 - 17 MG/DL) 11 Creatinine (0.52 - 1.04 MG/DL) 0.60 Glomerular Filtr Rate > 60 Glucose (74 - 106 MG/DL) 109 H Calcium (8.4 - 10.2 MG/DL) 9.1 Magnesium (1.6 - 2.3 MG/DL) 2.0 Laboratory Tests 12/07 419 Hematology WBC (3.8 - 9.8 K/MM3) 8.7 RBC (3.58 - 4.97 M/MM3) 4.07 Hgb (11.2 - 14.9 G/DL) 11.6 Hct (33.2 - 43.5 %) 37.0 MCV (80.7 - 99.1 fL) 91 MCH (27.0 - 34.1 pg) 28.5 MCHC (32.2 - 35.7 %) 31.4 L RDW (12.1 - 15.2 %) 14.7 Plt Count (129 - 368 K/MM3) 281 MPV (7.4 - 10.4 fl) 9.7 Neut % (Auto) (43 - 75 %) 73.9 Lymph % (Auto) (14 - 44 %) 14.7 [place] % (Auto) (4 - 13 %) 8.6 Eos % (Auto) (0 - 6 %) 2.1 Baso % (Auto) (0 - 2 %) 0.2 Neut # (Auto) (2.0 - 7.6 K/mm3) 6.45 Lymph # (Auto) (1.0 - 3.8 K/mm3) 1.28 [place] # (Auto) (0.1 - 0.8 K/mm3) 0.75 Eos # (Auto) (0.0 - 0.2 K/mm3) 0.18 Baso # (Auto) (0.0 - 0.2 K/mm3) 0.02 Immature Gran % (0.0 - 2.0 %) 0.5 Nucleated RBC % (0 - 1.0 %) 0.0 Nucleated RBCs # (Man) (0.0 - 0.1 K/mm3) 0.00 Laboratory Tests 12/06 0420 Chemistry Magnesium (1.6 - 2.3 MG/DL) 2.0 Diagnosis, Assessment Plan Free Text DxA P Notes Free Text DxA P Notes: IMPRESSION: S/P Robotic assisted excision of right upper lo be lung nodule. Staple excision of blebs right upper lobe of lung. R PTX - subcutaneous emphysema CAD-stable HTN HLP PVC's PAD AAA S/P EVAR COPD RECOMMEND: Continue current medical rx. Ambulate at 2128 RPT #:[id number] END OF REPORT 2018-12-05 18:20:00-00:00 [facility] ([facility]) Cardiology Progress Note REPORT#:[id number] REPORT STATUS: Signed DATE:12/05/18 TIME: 1819 PATIENT: MOISÉS CANNON UNIT #: [id number] ROOM/BED: [address] : 55 AGE: 63 SEX: F ATTEND: Augustus Rivera MD ADM AUTHOR: Miguel Chawla MD * ALL edits or amendments must be made on the Digital [employer]/computer document * Subjective Chief Complaint: post-op CP, less SOB Patient reports: Yes: chest pain, shortness of breath. No: palpit ations. Objective General VS/I O: 24 hour I O ending at 0700: 12/05 0700 12/04 1900 Intake Total 180.00 480 Output Total 850 544 Balance -670.00 -64 Intake, IV 100.00 Intake, Oral 80 120 Intake, Oral 360 Supplement Number Voids 4 6 Output, Chest 0 14 Tube Drainage Output, Urine 850 530 Patient 59.2 kg Weight Vital Signs: Date Time Temp Pulse Resp B/P B/P Pulse O2 O2 Fl ow FiO2 Mean Ox Delivery Rate 12/05 1640 100 20 123/86 98 97 Nasal 4.837697 cannula 12/05 1553 97.3 12/05 1330 143/87 105 95 Nasal 4.643617 cannula 12/05 1230 98 27 120/73 88 93 Nasal 4.885734 cannula 12/05 1200 97.4 12/05 1200 120/60 80 12/05 1130 103 19 120/73 88 96 Nasal 4.035258 cannula 12/05 1100 108 28 120/58 78 100 Nasal 4.080941 cannula 12/05 1030 106 30 110/63 78 91 Nasal 4.092967 cannula 12/05 1000 106 123/74 90 93 Venti mask 10.795648 12/05 0930 98 24 131/75 93 95 Venti mask 10.000 000 12/05 0905 97 14 97 12/05 0858 100 21 12/05 0853 98 16 98/70 80 94 12/05 0800 97.4 12/05 0800 97 22 109/67 82 92 12/05 0730 Venti mask 10.976397 35 12/05 0730 88 15 108/78 87 100 12/05 0717 97 Venti mask 10.941330 35 12/05 0700 87 26 122/82 98 93 12/05 0630 84 26 116/83 93 93 12/05 0600 84 24 119/78 92 94 12/05 0530 83 24 122/87 100 95 12/05 0500 84 26 118/83 95 94 12/05 0430 88 25 128/77 98 92 12/05 0400 97.3 12/05 0400 95 34 137/82 99 93 12/05 0341 103 30 113/65 85 94 12/05 0300 102 30 117/84 97 93 12/05 0229 103 11 109/77 88 95 12/05 0212 105 17 140/75 97 91 12/05 0129 93 37 127/78 94 96 12/05 0100 93 19 122 96 12/05 0029 88 22 139/69 97 97 12/05 0000 97.1 12/05 0000 91 19 99/66 79 97 12/04 2346 90 26 103/70 83 96 12/04 2300 87 22 128/75 93 95 12/04 2230 89 46 133/85 103 98 12/04 2215 98 Venti mask 12.265843 40 12/04 2206 91 22 127/76 90 96 12/04 2200 93 22 95 12/04 2130 95 15 118/73 89 96 12/04 2099 112 26 113/74 88 95 12/04 2029 105 13 138/79 101 96 12/05 1999 97.2 12/05 1999 100 15 146/80 107 94 12/047 96 Nasal 2.464058 28 cannula 12/04 193 96 18 142/84 107 95 12/04 1915 Nasal 4.093206 cannula 12/04 1900 101 23 145/84 100 96 12/04 1829 101 17 101/72 83 96 Status post: Robotic assisted excision of right upper lobe pancho ng nodule. Staple excision of blebs right upper lobe of lung. Physical Exam Head/Eyes: atraumatic, normocephalic, PERRLA ENT: moist mucosal membranes Neck: supple/no meningismus, no bruit/NL carotids, no JVD, no masses or swelling Cardiovascular: CV assessment: regular rate and rhythm, BP puls es = bilaterally, normal heart sounds, no murmur Respiratory: dullness to percussion, on oxygen, clear to auscultation, no distress Abdomen: soft, non-tender, no mass/organ omegaly, no pulsatile mass, no rebound Lower extremity: LE assessment: no edema, 2+ peripheral pulses Musculoskeletal: full range of motion Neuro/PRODUCTION PLANNER SCHEDULER: alert, oriented X 3, CN II-XII intact , no motor deficits Psychiatry: normal affect, normal judgment/insig ht, normal mood, no hallucinations Results Findings/Data: Laboratory Tests 12/04 2034 Blood Gas Puncture Site LR ABG pH (7.35 - 7.45 mmHg) 7.46 H ABG pCO2 (35.0 - 45.0 mmHg) 41.7 ABG pO2 (80.0 - 100.0 mmol/L) 67.8 L ABG HCO3 (20.0 - 26.0 mmol/L) 28.7 H ABG O2 Saturation (95.0 - 100.0 %) 94.3 L ABG Base Excess (-3.0 - 3.0 mmol/L) 4.3 H Nadja Test (CHECK) Y Temperature (37 C) 37.0 O2 Delivery Device N/C Liter Flow (L/MIN) 4 FiO2 (%) 36 Laboratory Tests 12/05 Chemistry Sodium (137 - 145 MMOL/L) 134 L 135 L Potassium (3.5 - 5.1 MMOL/L) 4.1 3.8 Chloride (98 - 107 MMOL/L) 97 L 97 L Carbon Dioxide (22 - 30 MMOL/L) 32 H 31 H Anion Gap (14 - 24 MMOL/L) 9 L 11 L BUN (7 - 17 MG/DL) 15 13 Creatinine (0.52 - 1.04 MG/DL) 0.50 L 0.50 L Glomerular Filtr Rate > 60 > 60 Glucose (74 - 106 MG/DL) 98 105 Calcium (8.4 - 10.2 MG/DL) 9.0 9.0 Magnesium (1.6 - 2.3 MG/DL) 1.9 1.8 Laboratory Tests 12/05 0558 Hematology WBC (3.8 - 9.8 K/MM3) 9.3 RBC (3.58 - 4.97 M/MM3) 4.42 Hgb (11.2 - 14.9 G/DL) 12.6 Hct (33.2 - 43.5 %) 40.3 MCV (80.7 - 99.1 fL) 91 MCH (27.0 - 34.1 pg) 28.5 MCHC (32.2 - 35.7 %) 31.3 L RDW (12.1 - 15.2 %) 14.7 Plt Count (129 - 368 K/MM3) 263 MPV (7.4 - 10.4 fl) 9.6 Neut % (Auto) (43 - 75 %) 79.7 H Lymph % (Auto) (14 - 44 %) 12.4 L [place] % (Auto) (4 - 13 %) 6.2 Eos % (Auto) (0 - 6 %) 1.2 Baso % (Auto) (0 - 2 %) 0.1 Neut # (Auto) (2.0 - 7.6 K/mm3) 7.42 Lymph # (Auto) (1.0 - 3.8 K/mm3) 1.16 [place] # (Auto) (0.1 - 0.8 K/mm3) 0.58 Eos # (Auto) (0.0 - 0.2 K/mm3) 0.11 Baso # (Auto) (0.0 - 0.2 K/mm3) 0.01 Immature Gran % (0.0 - 2.0 %) 0.4 Nucleated RBC % (0 - 1.0 %) 0.0 Nucleated RBCs # (Man) (0.0 - 0.1 K/mm3) 0.00 Laboratory Tests 12/05 12/04 0558 2041 Chemistry Magnesium (1.6 - 2.3 MG/DL) 1.9 1.8 Radiology data: Recent Impressions: RADIOLOGY - XR CHEST 1V 12/05 0530 Report Impression - Status: SIGNED Entered: 12/05/2018 0817 IMPRESSION: 1. Development of bibasilar atelectasis and ques tionable small pneumomediastinum. 2. Worsening subcutaneous emphysema. Impression By: Ludwig Ghosh M.D. Diagnosis, Assessment Plan Free Text DxA P Notes Free Text DxA P Notes: IMPRESSION: S/P Robotic assisted excision of right upper lo be lung nodule. Staple excision of blebs right upper lobe of lung. R PTX CAD-stable HTN HLP PVC's PAD AAA S/P EVAR COPD RECOMMEND: Continue current medical rx. Ambulate at 2127 RPT #:[id number] END OF REPORT 2018-12-05 14:54:00-00:00 [facility] ([facility]) Hospitalist Progress Note REPORT#:[id number] REPORT STATUS: Signed DATE:12/05/18 TIME: 1453 PATIENT: MOISÉS CANNON UNIT #: [id number] ROOM/BED: [address] : 55 AGE: 63 SEX: F ATTEND: Augustus Rivera MD ADM AUTHOR: Ana Haas MD * ALL edits or amendments must be made on the Digital [employer]/P[employer] document * Subjective Chief Complaint: Trouble breathing with pain/burning at the chest tube site. Progressively worsening of the swelling in the face. Cannot open eyes. Complains of back pain Patient reports: Yes: pain. No: nausea, vomiting. Review of Systems Constitutional: Reports: fatigue, generalized weakness. Denies: fever. Eyes: Reports: swelling. ENT: Denies: sore throat. Respiratory: Reports: SOB. Cardiovascular: Reports: chest pain (Soreness of the [address] st), DIAMOND (dyspnea on exertion), edema. GI: Denies: diarrhea, vomiting. Musculoskeletal: Reports: extremity pain (Arms are sore), extremi ty swelling. Neuro: Denies: confusion, dizziness. Systems reviewed negative: Allergy/Immun , Constitutional, Endocrine, ENT, Eyes , GI, , Heme, Musculoskeletal, Neuro, Psych, S kin Objective General VS/I O: Vital Signs: Date Time Temp Pulse Resp B/P B/P Pulse O2 O2 F low FiO2 Mean Ox Delivery Rate 12/05 1200 97.4 12/05 0905 97 14 97 12/05 0858 100 21 12/05 0853 98 16 98/70 80 94 12/05 0800 97.4 12/05 0800 97 22 109/67 82 92 12/05 0730 Venti mask 10.576906 35 12/05 0730 88 15 108/78 87 100 12/05 0717 97 Venti mask 10.769063 35 12/05 0700 87 26 122/82 98 93 12/05 0630 84 26 116/83 93 93 12/05 0600 84 24 119/78 92 94 12/05 0530 83 24 122/87 100 95 12/05 0500 84 26 118/83 95 94 12/05 0430 88 25 128/77 98 92 12/05 0400 97.3 12/05 0400 95 34 137/82 99 93 12/05 0341 103 30 113/65 85 94 12/05 0300 102 30 117/84 97 93 12/05 0229 103 11 109/77 88 95 12/05 0212 105 17 140/75 97 91 12/05 0129 93 37 127/78 94 96 12/05 0100 93 19 122 96 12/05 0029 88 22 139/69 97 97 12/05 0000 97.1 12/05 0000 91 19 99/66 79 97 12/04 2346 90 26 103/70 83 96 12/04 2300 87 22 128/75 93 95 12/04 2230 89 46 133/85 103 98 12/04 2215 98 Venti mask 12.142954 40 12/04 2206 91 22 127/76 90 96 12/04 2200 93 22 95 12/04 2130 95 15 118/73 89 96 12/04 2100 112 26 113/74 88 95 12/04 2029 105 13 138/79 101 96 12/05 1999 97.2 03/26 2000 100 15 146/80 107 94 12/04 1937 96 Nasal 2.620356 28 cannula 12/04 1930 96 18 142/84 107 95 12/04 1915 Nasal 4.116474 cannula 12/04 1900 101 23 145/84 100 96 12/04 1829 101 17 101/72 83 96 12/04 1800 102 35 124/71 91 93 12/04 1730 23 12/04 1729 107 120/74 90 96 12/04 1700 103 22 105/55 72 96 12/04 1630 103 97 12/04 1629 175/75 108 12/04 1600 100 15 128/82 99 95 24 hour I O ending at 0700: 12/05 0700 12/04 1900 Intake Total 180.00 480 Output Total 850 544 Balance -670.00 -64 Intake, IV 100.00 Intake, Oral 80 120 Intake, Oral 360 Supplement Number Voids 4 6 Output, Chest 0 14 Tube Drainage Output, Urine 850 530 Patient 59.2 kg Weight Medications: Active Meds + DC'd Last 24 Hrs Potassium Chloride 100 ML ONCE ONE IV (DC) Enoxaparin Sodium 40 MG QAM SUBQ Albuterol/Ipratropium 3 ML RTQ6H INH Mupirocin 1 APPLIC BID NASAL (DC) Atorvastatin Calcium 40 MG BEDTIME PO Citalopram Hydrobromide 20 MG BEDTIME PO Docusate Sodium 100 MG BID PO Metoprolol Tartrate 25 MG BEDTIME PO Pantoprazole 20 MG BEDTIME PO Zolpidem Tartrate 10 MG BEDTIME PO Budesonide 0.25 MG RTQ12H NEB Acetaminophen 650 MG Q4H PRN PRN PO Acetaminophen 650 MG Q4H PRN PRN RECTAL Bisacodyl 5 MG DAILY PRN PRN PO Bisacodyl 10 MG DAILY PRN PRN RECTAL Hydrocodone Bitart/Acetaminophen 1 TAB Q4H PRN P RN PO Hydrocodone Bitart/Acetaminophen 2 TAB Q4H PRN P RN PO Magnesium Hydroxide 30 ML DAILY PRN PRN PO Meperidine HCl 25 MG Q4H PRN PRN IM Naloxone HCl 0.2 MG ASDIR PRN IV Ondansetron HCl 4 MG Q4H PRN PRN IV Physical Exam General appearance: alert, awake Head/Eyes: abnormal eyelids, abnormal periorbita l ENT: normal dentition, normal ear left, normal e ar right, normal nose, normal pharynx, normal sinus Neck: full range of motion, non-tender, normal thyroid, supple/no meningismus, no bruit/NL carotids, no JVD, no masses or swell ing Cardiovascular: normal capillary refill, regular rate rhythm Respiratory: chest wall tenderness Abdomen: distended, tenderness, normal bowel yanelis nds Extremities: edema, moves all, normal capillary refill Musculoskeletal: normal inspection Neuro/PRODUCTION PLANNER SCHEDULER: alert, oriented X 3 Skin: subq emphysema (face, neck and chest ), dr reyes, intact Wound/incision: Site Condition: dressing clean dry, dressing in tact Treatment Prophylaxis Treatment Prophylaxis William documentation: The data below has been impo rted from nursing documentation. Any exceptions have been noted below under Provider comments. _ Nursing Documentation Date william inserted: 11/30/18 Date william discontinued: 12/01/18 _ Provider comments: [] Diagnosis, Assessment Plan Free Text DxA P Notes Free text DxA P notes: Assesment: -RUL nodule/blebs s/p excision -Dyspnea on exertion -Extensive subcutaneous emphysema Plan: -Continue oxygen as needed -cont nebs , pulmicort -Monitor chest tube output; Management per CT barth rgeon -Continue home meds as appropriate -pain control -DVT prophylaxis - SCD 12/02 cont chest tube cont oxygen, nebs management per [facility] dvt ppx: scd 12/03 pt is stable, transfer out icu cont chest tube cont cont management 12/04 transferred back to ICU bc of sq emphysema- CV s x following Chest Xray shows worsening s ubcutaneous emphysema otherwise stable appearance of the chest Cont Chest tube Cont current management on clear liquid diet. DVT prophylaxis: SCD 12/05 -Chest Xray shows worsening subcutaneous emphysema and development of bibasilar atelectasis and questionable small pneumomediast inum. 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 Electronically Signed by Ana Haas MD on at 1534 RPT #:[id number] END OF REPORT 2018-12-05 09:25:00-00:00 [facility] ([facility]) Cardiovascular Surgery Prog REPORT#:[id number] REPORT STATUS: Signed DATE:12/05/18 TIME: 924 PATIENT: MOISÉS CANNON UNIT #: [id number] ROOM/BED: [address] : 55 AGE: 63 SEX: F ATTEND: Meg Rivera MD ADM AUTHOR: Oumou Stanley NP * ALL edits or amendments must be made on the Digital [employer]/computer document * General Post-op: day 5 Status post: Robotic assisted excision of right upper lobe pancho ng nodule. Staple excision of blebs right upper lobe of lung. Subjective Comments: Seen at bedside, sitting on the chair Denies SOB, reports tighness sensation on the fa ce, neck, chest and abdomen. Reports occational abdominal burning sensation. Denies CP. Review of Systems Constitutional: Denies: chills, fever, generalized weakness. ENT: Reports: other (eyes swollen shut). Respiratory: Denies: DIAMOND (dyspnea on exertion), SOB. Cardiovascular: Denies: chest pain. Objective Physical Exam VS/I O: Last Documented: Result Date Time Pulse Ox 92 12/05 0800 B/P 109/67 12/05 0800 B/P Mean 82 12/05 0800 Pulse 97 12/05 0800 Resp 22 12/05 0800 FiO2 35 12/05 0717 O2 Delivery Venti mask 12/05 716 O2 Flow Rate 10.979800 12/05 0717 Temp 97.3 12/05 0400 24 hour I O ending at 0700: 12/05 0700 12/04 1900 Intake Total 180.00 480 Output Total 850 544 Balance -670.00 -64 Intake, IV 100.00 Intake, Oral 80 120 Intake, Oral 360 Supplement Number Voids 4 6 Output, Chest 0 14 Tube Drainage Output, Urine 850 530 Patient 59.2 kg Weight Medications: Active Meds + DC'd Last 24 Hrs Potassium Chloride 100 ML ONCE ONE IV (DC) Midazolam HCl 0 .STK-MED ONE .ROUTE (DC) Enoxaparin Sodium 40 MG QAM SUBQ Albuterol/Ipratropium 3 ML RTQ6H INH Mupirocin 1 APPLIC BID NASAL (DC) Atorvastatin Calcium 40 MG BEDTIME PO Citalopram Hydrobromide 20 MG BEDTIME PO Docusate Sodium 100 MG BID PO Metoprolol Tartrate 25 MG BEDTIME PO Pantoprazole 20 MG BEDTIME PO Zolpidem Tartrate 10 MG BEDTIME PO Budesonide 0.25 MG RTQ12H NEB Acetaminophen 650 MG Q4H PRN PRN PO Acetaminophen 650 MG Q4H PRN PRN RECTAL Bisacodyl 5 MG DAILY PRN PRN PO Bisacodyl 10 MG DAILY PRN PRN RECTAL Hydrocodone Bitart/Acetaminophen 1 TAB Q4H PRN P RN PO Hydrocodone Bitart/Acetaminophen 2 TAB Q4H PRN P RN PO Magnesium Hydroxide 30 ML DAILY PRN PRN PO Meperidine HCl 25 MG Q4H PRN PRN IM Naloxone HCl 0.2 MG ASDIR PRN IV Ondansetron HCl 4 MG Q4H PRN PRN IV General appearance: alert, awake, oriented, no a cute distress HEENT: bilateral eye swollen and closed Neck: tenderness, neck swelling Cardiovascular: BP/pulses equal bilat., normal h eart sounds, regular rate rhythm Respiratory: aerating well, clear to auscultatio n, symmetric expansion, no distress, CT to suction with small continous air leak, posterior and anterior sweeling of chest with subq emphysema Abdomen: distended (mild), tenderness, normal priscilla wel sounds Genitourinary: no william Extremities: moves all, BUE swelling-subq emphys candice Neuro/PRODUCTION PLANNER SCHEDULER: alert, oriented X 3 Skin: subq enphysema Results Findings/Data: Laboratory Tests 12/04 2034 Blood Gas Puncture Site LR ABG pH (7.35 - 7.45 mmHg) 7.46 H ABG pCO2 (35.0 - 45.0 mmHg) 41.7 ABG pO2 (80.0 - 100.0 mmol/L) 67.8 L ABG HCO3 (20.0 - 26.0 mmol/L) 28.7 H ABG O2 Saturation (95.0 - 100.0 %) 94.3 L ABG Base Excess (-3.0 - 3.0 mmol/L) 4.3 H Nadja Test (CHECK) Y Temperature (37 C) 37.0 O2 Delivery Device N/C Liter Flow (L/MIN) 4 FiO2 (%) 36 Laboratory Tests 12/0558 2040 1330 Chemistry Sodium (137 - 145 MMOL/L) 134 L 135 L Potassium (3.5 - 5.1 MMOL/L) 4.1 3.8 Chloride (98 - 107 MMOL/L) 97 L 97 L Carbon Dioxide (22 - 30 MMOL/L) 32 H 31 H Anion Gap (14 - 24 MMOL/L) 9 L 11 L BUN (7 - 17 MG/DL) 15 13 Creatinine (0.52 - 1.04 MG/DL) 0.50 L 0.50 L Glomerular Filtr Rate > 60 > 60 Glucose (74 - 106 MG/DL) 98 105 POC Glucose (60 - 99 MG/DL) TNP Calcium (8.4 - 10.2 MG/DL) 9.0 9.0 Magnesium (1.6 - 2.3 MG/DL) 1.9 1.8 Laboratory Tests 12/05 0558 Hematology WBC (3.8 - 9.8 K/MM3) 9.3 RBC (3.58 - 4.97 M/MM3) 4.42 Hgb (11.2 - 14.9 G/DL) 12.6 Hct (33.2 - 43.5 %) 40.3 MCV (80.7 - 99.1 fL) 91 MCH (27.0 - 34.1 pg) 28.5 MCHC (32.2 - 35.7 %) 31.3 L RDW (12.1 - 15.2 %) 14.7 Plt Count (129 - 368 K/MM3) 263 MPV (7.4 - 10.4 fl) 9.6 Neut % (Auto) (43 - 75 %) 79.7 H Lymph % (Auto) (14 - 44 %) 12.4 L [place] % (Auto) (4 - 13 %) 6.2 Eos % (Auto) (0 - 6 %) 1.2 Baso % (Auto) (0 - 2 %) 0.1 Neut # (Auto) (2.0 - 7.6 K/mm3) 7.42 Lymph # (Auto) (1.0 - 3.8 K/mm3) 1.16 [place] # (Auto) (0.1 - 0.8 K/mm3) 0.58 Eos # (Auto) (0.0 - 0.2 K/mm3) 0.11 Baso # (Auto) (0.0 - 0.2 K/mm3) 0.01 Immature Gran % (0.0 - 2.0 %) 0.4 Nucleated RBC % (0 - 1.0 %) 0.0 Nucleated RBCs # (Man) (0.0 - 0.1 K/mm3) 0.00 Radiology data: Recent Impressions: RADIOLOGY - XR CHEST 1V 12/05 0530 Report Impression - Status: SIGNED Entered: 12/05/2018 0817 IMPRESSION: 1. Development of bibasilar atelectasis and ques tionable small pneumomediastinum. 2. Worsening subcutaneous emphysema. Impression By: [facility] Rosalinda Ghosh M.D. Diagnosis, Assessment Plan Free Text A P: This is a 63 Y/F with right lung nodules S/p Robotic assisted excision of right u pper lobe lung nodule. Staple excision of blebs right upper lobe of lung. Extensive subq emphysema-Worsening today , CT to suction, has small intemittent air leak Cont with DVT prophylasix-lovenox Encourage IS and ambulation status d/w Dr. Rivera-no surgical interventions planned. Will continue with current management. Will monitor closely. Plan discussed with: patient , collaborating MD (Dr. Rivera), nurse (at bedside) at 1708 RPT #:[id number] END OF REPORT 2018-12-05 09:25:00-00:00 [facility] ([facility]) Cardiovascular Surgery Prog REPORT#:[id number] REPORT STATUS: Signed DATE:12/05/18 TIME: 924 PATIENT: MOISÉS CANNON UNIT #: [id number] ROOM/BED: Z.SI04-A : 55 AGE: 63 SEX: F ATTEND: Augustus Rivera MD ADM AUTHOR: Oumou Stanley NP * ALL edits or amendments must be made on the Digital [employer]/P[employer] document * General Post-op: day 5 Status post: Robotic assisted excision of right upper lobe pancho ng nodule. Staple excision of blebs right upper lobe of lung. Subjective Comments: Seen at bedside, sitting on the chair Denies SOB, reports tighness sensation on the fa ce, neck, chest and abdomen. Reports occational abdominal burning sensation. Denies CP. Review of Systems Constitutional: Denies: chills, fever, generalized weakness. ENT: Reports: other (eyes swollen shut). Respiratory: Denies: DIAMOND (dyspnea on exertion), SOB. Cardiovascular: Denies: chest pain. Objective Physical Exam VS/I O: Last Documented: Result Date Time Pulse Ox 92 12/05 0800 B/P 109/67 12/05 0800 B/P Mean 82 12/05 0800 Pulse 97 12/05 0800 Resp 22 12/05 0800 FiO2 35 12/05 0717 O2 Delivery Venti mask 12/05 0717 O2 Flow Rate 10.922707 12/05 0717 Temp 97.3 12/05 0400 24 hour I O ending at 0700: 12/05 0700 12/04 1900 Intake Total 180.00 480 Output Total 850 544 Balance -670.00 -64 Intake, IV 100.00 Intake, Oral 80 120 Intake, Oral 360 Supplement Number Voids 4 6 Output, Chest 0 14 Tube Drainage Output, Urine 850 530 Patient 59.2 kg Weight Medications: Active Meds + DC'd Last 24 Hrs Potassium Chloride 100 ML ONCE ONE IV (DC) Midazolam HCl 0 .STK-MED ONE .ROUTE (DC) Enoxaparin Sodium 40 MG QAM SUBQ Albuterol/Ipratropium 3 ML RTQ6H INH Mupirocin 1 APPLIC BID NASAL (DC) Atorvastatin Calcium 40 MG BEDTIME PO Citalopram Hydrobromide 20 MG BEDTIME PO Docusate Sodium 100 MG BID PO Metoprolol Tartrate 25 MG BEDTIME PO Pantoprazole 20 MG BEDTIME PO Zolpidem Tartrate 10 MG BEDTIME PO Budesonide 0.25 MG RTQ12H NEB Acetaminophen 650 MG Q4H PRN PRN PO Acetaminophen 650 MG Q4H PRN PRN RECTAL Bisacodyl 5 MG DAILY PRN PRN PO Bisacodyl 10 MG DAILY PRN PRN RECTAL Hydrocodone Bitart/Acetaminophen 1 TAB Q4H PRN P RN PO Hydrocodone Bitart/Acetaminophen 2 TAB Q4H PRN P RN PO Magnesium Hydroxide 30 ML DAILY PRN PRN PO Meperidine HCl 25 MG Q4H PRN PRN IM Naloxone HCl 0.2 MG ASDIR PRN IV Ondansetron HCl 4 MG Q4H PRN PRN IV General appearance: alert, awake, oriented, no a cute distress HEENT: bilateral eye swollen and closed Neck: tenderness, neck swelling Cardiovascular: BP/pulses equal bilat., normal h eart sounds, regular rate rhythm Respiratory: aerating well, clear to auscultatio n, symmetric expansion, no distress, CT to suction with small continous air leak, posterior and anterior sweeling of chest with subq emphysema Abdomen: distended (mild), tenderness, normal priscilla wel sounds Genitourinary: no william Extremities: moves all, BUE swelling-subq emphys candice Neuro/PRODUCTION PLANNER SCHEDULER: alert, oriented X 3 Skin: subq enphysema Results Findings/Data: Laboratory Tests 12/04 2034 Blood Gas Puncture Site LR ABG pH (7.35 - 7.45 mmHg) 7.46 H ABG pCO2 (35.0 - 45.0 mmHg) 41.7 ABG pO2 (80.0 - 100.0 mmol/L) 67.8 L ABG HCO3 (20.0 - 26.0 mmol/L) 28.7 H ABG O2 Saturation (95.0 - 100.0 %) 94.3 L ABG Base Excess (-3.0 - 3.0 mmol/L) 4.3 H Nadja Test (CHECK) Y Temperature (37 C) 37.0 O2 Delivery Device N/C Liter Flow (L/MIN) 4 FiO2 (%) 36 Laboratory Tests 12/05 12/04 12/04 0558 2041 1330 Chemistry Sodium (137 - 145 MMOL/L) 134 L 135 L Potassium (3.5 - 5.1 MMOL/L) 4.1 3.8 Chloride (98 - 107 MMOL/L) 97 L 97 L Carbon Dioxide (22 - 30 MMOL/L) 32 H 31 H Anion Gap (14 - 24 MMOL/L) 9 L 11 L BUN (7 - 17 MG/DL) 15 13 Creatinine (0.52 - 1.04 MG/DL) 0.50 L 0.50 L Glomerular Filtr Rate > 60 > 60 Glucose (74 - 106 MG/DL) 98 105 POC Glucose (60 - 99 MG/DL) TNP Calcium (8.4 - 10.2 MG/DL) 9.0 9.0 Magnesium (1.6 - 2.3 MG/DL) 1.9 1.8 Laboratory Tests 12/05 0558 Hematology WBC (3.8 - 9.8 K/MM3) 9.3 RBC (3.58 - 4.97 M/MM3) 4.42 Hgb (11.2 - 14.9 G/DL) 12.6 Hct (33.2 - 43.5 %) 40.3 MCV (80.7 - 99.1 fL) 91 MCH (27.0 - 34.1 pg) 28.5 MCHC (32.2 - 35.7 %) 31.3 L RDW (12.1 - 15.2 %) 14.7 Plt Count (129 - 368 K/MM3) 263 MPV (7.4 - 10.4 fl) 9.6 Neut % (Auto) (43 - 75 %) 79.7 H Lymph % (Auto) (14 - 44 %) 12.4 L [place] % (Auto) (4 - 13 %) 6.2 Eos % (Auto) (0 - 6 %) 1.2 Baso % (Auto) (0 - 2 %) 0.1 Neut # (Auto) (2.0 - 7.6 K/mm3) 7.42 Lymph # (Auto) (1.0 - 3.8 K/mm3) 1.16 [place] # (Auto) (0.1 - 0.8 K/mm3) 0.58 Eos # (Auto) (0.0 - 0.2 K/mm3) 0.11 Baso # (Auto) (0.0 - 0.2 K/mm3) 0.01 Immature Gran % (0.0 - 2.0 %) 0.4 Nucleated RBC % (0 - 1.0 %) 0.0 Nucleated RBCs # (Man) (0.0 - 0.1 K/mm3) 0.00 Radiology data: Recent Impressions: RADIOLOGY - XR CHEST 1V 12/05 0530 Report Impression - Status: SIGNED Entered: 12/05/2018 0817 IMPRESSION: 1. Development of bibasilar atelectasis and ques tionable small pneumomediastinum. 2. Worsening subcutaneous emphysema. Impression By: JuanArthur Ghosh M.D. Diagnosis, Assessment Plan Free Text A P: This is a 63 Y/F with right lung nodules S/p Robotic assisted excision of right u pper lobe lung nodule. Staple excision of blebs right upper lobe of lung. Extensive subq emphysema-Worsening today , CT to suction, has small intemittent air leak Cont with DVT prophylasix-lovenox Encourage IS and ambulation status d/w Dr. Rivera-no surgical interventions planned. Will continue with current management. Will monitor closely. Plan discussed with: patient , collaborating MD (Dr. Rivera), nurse (at bedside) at 1708 at 4428 RPT #:[id number] END OF REPORT 2018-12-04 16:49:00-00:00 [facility] ([facility]) Hospitalist Progress Note REPORT#:[id number] REPORT STATUS: Signed DATE:12/04/18 TIME: 1648 PATIENT: MOISÉS CANNON UNIT #: [id number] [address] AGE: 63 SEX: F ATTEND: Augustus Rivera MD ADM AUTHOR: Ana Haas MD * ALL edits or amendments must be made on the el [employer]/computer document * Subjective Chief Complaint: Trouble breathing with pain/burning at the chest tube site. Swollen face and swollen right eye Patient reports: Yes: chest pain (tenderness), nausea, pain, shor tness of breath. Review of Systems Constitutional: Reports: fatigue, generalized weakness. Denies: fever. Eyes: Reports: swelling. ENT: Denies: sore throat. Respiratory: Reports: SOB. Cardiovascular: Reports: chest pain (Soreness of the [address] st), DIAMOND (dyspnea on exertion), edema. GI: Reports: nausea. Denies: vomiting. Musculoskeletal: Reports: extremity pain (Arms are sore), extremi ty swelling. Neuro: Denies: confusion, dizziness. Systems reviewed negative: Allergy/Immun , Constitutional, Endocrine, ENT, Eyes , GI, , Heme, Musculoskeletal, Neuro, Psych, S kin Objective General VS/I O: Vital Signs: Date Time Temp Pulse Resp B/P B/P Pulse O2 O2 F low FiO2 Mean Ox Delivery Rate 12/04 1500 104 17 138/83 105 91 12/04 1430 105 21 122/73 94 98 12/04 1400 96 18 125/80 98 99 12/04 1351 98 19 129/74 93 96 12/04 1305 91 15 170/78 112 95 12/04 1230 92 16 140/80 104 91 12/04 1200 97 22 111/68 83 94 12/04 1136 95 14 108/61 78 93 12/04 1109 135/80 100 12/04 1057 100 20 91 12/04 1030 98 20 124/81 96 92 12/04 1000 93 24 132/82 102 92 12/04 0930 91 25 125/80 98 92 12/04 0900 90 27 150/88 113 91 12/04 0829 81 32 159/94 122 96 12/04 0820 95 Nasal 3.783828 32 cannula 12/04 0800 83 38 149/91 115 95 12/04 0733 97.6 12/04 0733 Nasal 3.739803 cannula 12/04 0700 82 26 147/85 111 94 12/04 0630 81 20 95 12/04 0600 84 18 90 12/04 0530 86 30 93 12/04 0500 81 23 92 12/04 0430 80 32 96 12/04 0402 98.0 12/04 0400 81 13 95 12/04 0330 84 25 96 12/04 0300 85 19 96 12/04 0239 98.0 12/04 0230 89 19 96 12/04 0200 86 18 139/73 98 95 12/04 0130 86 16 93 12/04 0100 84 21 95 12/04 0036 83 22 142/81 107 96 12/04 0030 79 12 100 12/04 0022 Nasal 2.500539 cannula 12/04 0000 82 26 97 12/03 2330 86 22 93 12/03 2300 86 25 145/79 103 95 12/03 2245 84 25 157/84 114 98 12/03 2230 85 25 156/74 107 93 12/03 2219 85 28 141/67 96 97 12/03 2215 90 32 172/79 114 95 12/03 2200 90 25 159/76 109 95 12/04 2015 96 Nasal 4.432444 36 cannula 12/04 1999 Nasal 3.456935 cannula 12/03 1920 92 31 94 24 hour I O ending at 0700: 12/04 0700 12/03 1900 Intake Total 750 Output Total 870 1275 Balance -870 -525 Intake, Oral 750 Output, Chest 20 25 Tube Drainage Output, Urine 850 1250 Patient 98.2 kg Weight Weight Bed scale Measurement Method Medications: Active Meds + DC'd Last 24 Hrs Potassium Chloride 100 ML ONCE ONE IV (UNV) Midazolam HCl 0 .STK-MED ONE .ROUTE (DC) Enoxaparin Sodium 40 MG QAM SUBQ Albuterol/Ipratropium 3 ML RTQ6H INH Mupirocin 1 APPLIC BID NASAL Atorvastatin Calcium 40 MG BEDTIME PO Citalopram Hydrobromide 20 MG BEDTIME PO Docusate Sodium 100 MG BID PO Metoprolol Tartrate 25 MG BEDTIME PO Pantoprazole 20 MG BEDTIME PO Zolpidem Tartrate 10 MG BEDTIME PO Budesonide 0.25 MG RTQ12H NEB Acetaminophen 650 MG Q4H PRN PRN PO Acetaminophen 650 MG Q4H PRN PRN RECTAL Bisacodyl 5 MG DAILY PRN PRN PO Bisacodyl 10 MG DAILY PRN PRN RECTAL Hydrocodone Bitart/Acetaminophen 1 TAB Q4H PRN P RN PO Hydrocodone Bitart/Acetaminophen 2 TAB Q4H PRN P RN PO Magnesium Hydroxide 30 ML DAILY PRN PRN PO Meperidine HCl 25 MG Q4H PRN PRN IM Naloxone HCl 0.2 MG ASDIR PRN IV Ondansetron HCl 4 MG Q4H PRN PRN IV Physical Exam General appearance: alert, awake, oriented Head/Eyes: abnormal periorbital ENT: normal dentition, normal ear left, normal e ar right, normal nose, normal pharynx, normal sinus Neck: full range of motion, non-tender, normal thyroid, supple/no meningismus, no bruit/NL carotids, no JVD, no masses or swell ing Cardiovascular: normal capillary refill, regular rate rhythm Respiratory: chest wall tenderness Abdomen: distended, tenderness, normal bowel yanelis nds Extremities: edema, moves all, normal capillary refill Musculoskeletal: normal inspection Neuro/PRODUCTION PLANNER SCHEDULER: alert, oriented X 3 Skin: subq emphysema (face, neck and chest ), dr reyes, intact Wound/incision: Site Condition: dressing clean dry, dressing in tact Results Findings/Data: Laboratory Tests 12/04 2034 Blood Gas Puncture Site LR ABG pH (7.35 - 7.45 mmHg) 7.46 H ABG pCO2 (35.0 - 45.0 mmHg) 41.7 ABG pO2 (80.0 - 100.0 mmol/L) 67.8 L ABG HCO3 (20.0 - 26.0 mmol/L) 28.7 H ABG O2 Saturation (95.0 - 100.0 %) 94.3 L ABG Base Excess (-3.0 - 3.0 mmol/L) 4.3 H Nadja Test (CHECK) Y Temperature (37 C) 37.0 O2 Delivery Device N/C Liter Flow (L/MIN) 4 FiO2 (%) 36 Laboratory Tests 12/04 1330 0930 0858 Chemistry Sodium (137 - 145 MMOL/L) 135 L 135 L Potassium (3.5 - 5.1 MMOL/L) 3.8 4.2 Chloride (98 - 107 MMOL/L) 97 L 98 Carbon Dioxide (22 - 30 MMOL/L) 31 H 32 H Anion Gap (14 - 24 MMOL/L) 11 L BUN (7 - 17 MG/DL) 13 13 Creatinine (0.52 - 1.04 MG/DL) 0.50 L 0.60 Glomerular Filtr Rate > 60 > 60 Glucose (74 - 106 MG/DL) 105 102 POC Glucose (60 - 99 MG/DL) TNP Calcium (8.4 - 10.2 MG/DL) 9.0 9.1 Ionized Calcium Fabrice (1.12 - 1.30 MMOL/L) 1.11 L Phosphorus (2.5 - 4.5 MG/DL) 3.7 Magnesium (1.6 - 2.3 MG/DL) 1.8 1.9 Laboratory Tests 12/04 0930 Coagulation INR (0.8 - 1.1) 0.9 APTT (22.0 - 33.0 SECONDS) 24.2 PT Patient/Control Mix (9.6 - 11.6 SECONDS) 9.9 Laboratory Tests 12/04 0530 Hematology WBC (3.8 - 9.8 K/MM3) 7.9 RBC (3.58 - 4.97 M/MM3) 4.20 Hgb (11.2 - 14.9 G/DL) 12.0 Hct (33.2 - 43.5 %) 38.9 MCV (80.7 - 99.1 fL) 93 MCH (27.0 - 34.1 pg) 28.6 MCHC (32.2 - 35.7 %) 30.8 L RDW (12.1 - 15.2 %) 14.7 Plt Count (129 - 368 K/MM3) 252 MPV (7.4 - 10.4 fl) 9.9 Neut % (Auto) (43 - 75 %) 73.7 Lymph % (Auto) (14 - 44 %) 16.7 [place] % (Auto) (4 - 13 %) 7.7 Eos % (Auto) (0 - 6 %) 1.1 Baso % (Auto) (0 - 2 %) 0.3 Neut # (Auto) (2.0 - 7.6 K/mm3) 5.81 Lymph # (Auto) (1.0 - 3.8 K/mm3) 1.32 [place] # (Auto) (0.1 - 0.8 K/mm3) 0.61 Eos # (Auto) (0.0 - 0.2 K/mm3) 0.09 Baso # (Auto) (0.0 - 0.2 K/mm3) 0.02 Immature Gran % (0.0 - 2.0 %) 0.5 Nucleated RBC % (0 - 1.0 %) 0.0 Nucleated RBCs # (Man) (0.0 - 0.1 K/mm3) 0.00 Radiology data: Recent Impressions: RADIOLOGY - XR CHEST 1V 12/04 825 Report Impression - Status: SIGNED Entered: 12/04/2018909 IMPRESSION: Worsening subcutaneous emphysema oth erwise stable appearance of the chest with right chest tube in place Impression By: Ludwig Ghosh M.D. Treatment Prophylaxis Treatment Prophylaxis William documentation: The data below has been impo rted from nursing documentation. Any exceptions have been noted below under Provider comments. _ Nursing Documentation Date william inserted: 11/30/18 Date william discontinued: 12/01/18 _ Provider comments: [] Diagnosis, Assessment Plan Free Text DxA P Notes Free text DxA P notes: Assesment: -RUL nodule/blebs s/p excision -Dyspnea on exertion - subcutaneous emphysema Plan: -Continue oxygen as needed -cont nebs , pulmicort -Monitor chest tube output; Management per CT barth rgeon -Continue home meds as appropriate -pain control -DVT prophylaxis - SCD 12/02 cont chest tube cont oxygen, nebs management per [facility] dvt ppx: scd 12/03 pt is stable, transfer out icu cont chest tube cont cont management 12/04 transferred back to ICU bc of sq emphysema- CV s x following Chest Xray shows worsening s ubcutaneous emphysema otherwise stable appearance of the chest Cont Chest tube Cont current management on clear liquid diet. DVT prophalaxis: SCD Quality Medications Current medication review: I attest that the foregoing medication list in t he medical record is true, accurate, and complete to the best of my knowled ge. Electronically Signed by Ana Haas MD on at 2139 RPT #:[id number] END OF REPORT 2018-12-04 09:39:00-00:00 [facility] ([facility] Cardiovascular Surgery Prog REPORT#:[id number] REPORT STATUS: Signed DATE:12/04/18 TIME: 938 PATIENT: MOISÉS CANNON UNIT #: [id number] [address] 55 AGE: 63 SEX: F ATTEND: Augustus Rivera MD ADM AUTHOR: Oumou Stanley NP * ALL edits or amendments must be made on the [employer]/computer document * General Post-op: day 4 Status post: Robotic assisted excision of right upper lobe pancho ng nodule. Staple excision of blebs right upper lobe of lung. Subjective Comments: Seen at bedside With suq emphysema to upper chest, upper amrs, n aida, and face with right eye swollen and shut. Denies CP or SOB Reports voice changes CT to suction. Review of Systems Constitutional: Denies: chills, fever, generalized weakness. Eyes: Reports: swelling (subq air). Respiratory: Denies: DIAMOND (dyspnea on exertion), SOB. Cardiovascular: Denies: chest pain, DIAMOND (dyspnea on exer tion), edema, orthopnea, palpitations. Objective Physical Exam Medications: Active Meds + DC'd Last 24 Hrs Enoxaparin Sodium 40 MG QAM SUBQ Albuterol/Ipratropium 3 ML RTQ6H INH Morphine Sulfate 2 MG Q4H PRN PRN IV (DC) Mupirocin 1 APPLIC BID NASAL Atorvastatin Calcium 40 MG BEDTIME PO Citalopram Hydrobromide 20 MG BEDTIME PO Docusate Sodium 100 MG BID PO Metoprolol Tartrate 25 MG BEDTIME PO Pantoprazole 20 MG BEDTIME PO Pantoprazole 40 MG DAILY IV (DC) Zolpidem Tartrate 10 MG BEDTIME PO Budesonide 0.25 MG RTQ12H NEB Acetaminophen 650 MG Q4H PRN PRN PO Acetaminophen 650 MG Q4H PRN PRN RECTAL Bisacodyl 5 MG DAILY PRN PRN PO Bisacodyl 10 MG DAILY PRN PRN RECTAL Hydrocodone Bitart/Acetaminophen 1 TAB Q4H PRN P RN PO Hydrocodone Bitart/Acetaminophen 2 TAB Q4H PRN P RN PO Magnesium Hydroxide 30 ML DAILY PRN PRN PO Meperidine HCl 25 MG Q4H PRN PRN IM Naloxone HCl 0.2 MG ASDIR PRN IV Ondansetron HCl 4 MG Q4H PRN PRN IV General appearance: alert, awake, oriented, no a cute distress Wound/incision: Location: right thoracotomy Site condition: dressing clean dry, dressing in tact, no drainage HEENT: right eye swollen Neck: tenderness, no masses or swelling Cardiovascular: BP/pulses equal bilat., normal h eart sounds, regular rate rhythm Respiratory: aerating well, clear to auscultatio n, symmetric expansion, no distress, CT to suction with small continous air leak Abdomen: distended (mild), tenderness, normal priscilla wel sounds Genitourinary: no william Extremities: moves all, no edema Neuro/PRODUCTION PLANNER SCHEDULER: alert, oriented X 3 Skin: subq enphysema Results Findings/Data: Laboratory Tests 12/04 0930 Chemistry Sodium (137 - 145 MMOL/L) 135 L Potassium (3.5 - 5.1 MMOL/L) 4.2 Chloride (98 - 107 MMOL/L) 98 Carbon Dioxide (22 - 30 MMOL/L) 32 H BUN (7 - 17 MG/DL) 13 Creatinine (0.52 - 1.04 MG/DL) 0.60 Glomerular Filtr Rate > 60 Glucose (74 - 106 MG/DL) 102 Calcium (8.4 - 10.2 MG/DL) 9.1 Phosphorus (2.5 - 4.5 MG/DL) 3.7 Magnesium (1.6 - 2.3 MG/DL) 1.9 Laboratory Tests 12/04 0530 Hematology WBC (3.8 - 9.8 K/MM3) 7.9 RBC (3.58 - 4.97 M/MM3) 4.20 Hgb (11.2 - 14.9 G/DL) 12.0 Hct (33.2 - 43.5 %) 38.9 MCV (80.7 - 99.1 fL) 93 MCH (27.0 - 34.1 pg) 28.6 MCHC (32.2 - 35.7 %) 30.8 L RDW (12.1 - 15.2 %) 14.7 Plt Count (129 - 368 K/MM3) 252 MPV (7.4 - 10.4 fl) 9.9 Neut % (Auto) (43 - 75 %) 73.7 Lymph % (Auto) (14 - 44 %) 16.7 [place] % (Auto) (4 - 13 %) 7.7 Eos % (Auto) (0 - 6 %) 1.1 Baso % (Auto) (0 - 2 %) 0.3 Neut # (Auto) (2.0 - 7.6 K/mm3) 5.81 Lymph # (Auto) (1.0 - 3.8 K/mm3) 1.32 [place] # (Auto) (0.1 - 0.8 K/mm3) 0.61 Eos # (Auto) (0.0 - 0.2 K/mm3) 0.09 Baso # (Auto) (0.0 - 0.2 K/mm3) 0.02 Immature Gran % (0.0 - 2.0 %) 0.5 Nucleated RBC % (0 - 1.0 %) 0.0 Nucleated RBCs # (Man) (0.0 - 0.1 K/mm3) 0.00 Radiology data: Recent Impressions: RADIOLOGY - XR CHEST 1V 12/03 1830 Report Impression - Status: SIGNED Entered: 12/03/2018 1850 IMPRESSION: Stable right pneumothorax status post placement of right-sided chest tube. Interval development of extensive soft tis sonal emphysematous changes. Impression By: [email or web address] - Kraig Elizabeth M.D. RADIOLOGY - XR CHEST 1V 12/04 0826 Report Impression - Status: SIGNED Entered: 12/04/2018 0910 IMPRESSION: Worsening subcutaneous emphysema oth erwise stable appearance of the chest with right chest tube in place Impression By: Ludwig Ghosh M.D. Diagnosis, Assessment Plan Free Text A P: This is a 63 Y/F with right lung nodules S/p Robotic assisted excision of right u pper lobe lung nodule. Staple excision of blebs right upper lobe of lung. Extensive subq emphysema-CT to suction, has smal l intemittent air leak DVT prophylasix lovenox Encourage IS and ambulation Will monitor closely. Plan discussed with: patient, collaborating MD ( Dr. Rivera) at 0952 RPT #:[id number] END OF REPORT 2018-12-04 09:39:00-00:00 [facility] ([facility]) Cardiovascular Surgery Prog REPORT#:[id number] REPORT STATUS: Signed DATE:12/04/18 TIME: 938 PATIENT: MOISÉS CANNON UNIT #: [id number] ROOM[address]BED: [address] : 55 AGE: 63 SEX: F ATTEND: Augustus Rivera MD ADM AUTHOR: Oumou Stanley NP * ALL edits or amendments must be made on the [employer]/computer document * General Post-op: day 4 Status post: Robotic assisted excision of right upper lobe pancho ng nodule. Staple excision of blebs right upper lobe of lung. Subjective Comments: Seen at bedside With suq emphysema to upper chest, upper amrs, n aida, and face with right eye swollen and shut. Denies CP or SOB Reports voice changes CT to suction. Review of Systems Constitutional: Denies: chills, fever, generalized weakness. Eyes: Reports: swelling (subq air). Respiratory: Denies: DIAMOND (dyspnea on exertion), SOB. Cardiovascular: Denies: chest pain, DIAMOND (dyspnea on exer tion), edema, orthopnea, palpitations. Objective Physical Exam Medications: Active Meds + DC'd Last 24 Hrs Enoxaparin Sodium 40 MG QAM SUBQ Albuterol/Ipratropium 3 ML RTQ6H INH Morphine Sulfate 2 MG Q4H PRN PRN IV (DC) Mupirocin 1 APPLIC BID NASAL Atorvastatin Calcium 40 MG BEDTIME PO Citalopram Hydrobromide 20 MG BEDTIME PO Docusate Sodium 100 MG BID PO Metoprolol Tartrate 25 MG BEDTIME PO Pantoprazole 20 MG BEDTIME PO Pantoprazole 40 MG DAILY IV (DC) Zolpidem Tartrate 10 MG BEDTIME PO Budesonide 0.25 MG RTQ12H NEB Acetaminophen 650 MG Q4H PRN PRN PO Acetaminophen 650 MG Q4H PRN PRN RECTAL Bisacodyl 5 MG DAILY PRN PRN PO Bisacodyl 10 MG DAILY PRN PRN RECTAL Hydrocodone Bitart/Acetaminophen 1 TAB Q4H PRN P RN PO Hydrocodone Bitart/Acetaminophen 2 TAB Q4H PRN P RN PO Magnesium Hydroxide 30 ML DAILY PRN PRN PO Meperidine HCl 25 MG Q4H PRN PRN IM Naloxone HCl 0.2 MG ASDIR PRN IV Ondansetron HCl 4 MG Q4H PRN PRN IV General appearance: alert, awake, oriented, no a cute distress Wound/incision: Location: right thoracotomy Site condition: dressing clean dry, dressing in tact, no drainage HEENT: right eye swollen Neck: tenderness, no masses or swelling Cardiovascular: BP/pulses equal bilat., normal h eart sounds, regular rate rhythm Respiratory: aerating well, clear to auscultatio n, symmetric expansion, no distress, CT to suction with small continous air leak Abdomen: distended (mild), tenderness, normal priscilla wel sounds Genitourinary: no william Extremities: moves all, no edema Neuro/PRODUCTION PLANNER SCHEDULER: alert, oriented X 3 Skin: subq enphysema Results Findings/Data: Laboratory Tests 12/04 0930 Chemistry Sodium (137 - 145 MMOL/L) 135 L Potassium (3.5 - 5.1 MMOL/L) 4.2 Chloride (98 - 107 MMOL/L) 98 Carbon Dioxide (22 - 30 MMOL/L) 32 H BUN (7 - 17 MG/DL) 13 Creatinine (0.52 - 1.04 MG/DL) 0.60 Glomerular Filtr Rate > 60 Glucose (74 - 106 MG/DL) 102 Calcium (8.4 - 10.2 MG/DL) 9.1 Phosphorus (2.5 - 4.5 MG/DL) 3.7 Magnesium (1.6 - 2.3 MG/DL) 1.9 Laboratory Tests 12/04 0530 Hematology WBC (3.8 - 9.8 K/MM3) 7.9 RBC (3.58 - 4.97 M/MM3) 4.20 Hgb (11.2 - 14.9 G/DL) 12.0 Hct (33.2 - 43.5 %) 38.9 MCV (80.7 - 99.1 fL) 93 MCH (27.0 - 34.1 pg) 28.6 MCHC (32.2 - 35.7 %) 30.8 L RDW (12.1 - 15.2 %) 14.7 Plt Count (129 - 368 K/MM3) 252 MPV (7.4 - 10.4 fl) 9.9 Neut % (Auto) (43 - 75 %) 73.7 Lymph % (Auto) (14 - 44 %) 16.7 [place] % (Auto) (4 - 13 %) 7.7 Eos % (Auto) (0 - 6 %) 1.1 Baso % (Auto) (0 - 2 %) 0.3 Neut # (Auto) (2.0 - 7.6 K/mm3) 5.81 Lymph # (Auto) (1.0 - 3.8 K/mm3) 1.32 [place] # (Auto) (0.1 - 0.8 K/mm3) 0.61 Eos # (Auto) (0.0 - 0.2 K/mm3) 0.09 Baso # (Auto) (0.0 - 0.2 K/mm3) 0.02 Immature Gran % (0.0 - 2.0 %) 0.5 Nucleated RBC % (0 - 1.0 %) 0.0 Nucleated RBCs # (Man) (0.0 - 0.1 K/mm3) 0.00 Radiology data: Recent Impressions: RADIOLOGY - XR CHEST 1V 12/03 1830 Report Impression - Status: SIGNED Entered: 12/03/2018 1850 IMPRESSION: Stable right pneumothorax status post placement of right-sided chest tube. Interval development of extensive soft tis sonal emphysematous changes. Impression By: [email or web address] - Kraig Elizabeth M.D. RADIOLOGY - XR CHEST 1V 12/04 0826 Report Impression - Status: SIGNED Entered: 12/04/2018 0910 IMPRESSION: Worsening subcutaneous emphysema oth erwise stable appearance of the chest with right chest tube in place Impression By: Ludwig Ghosh M.D. Diagnosis, Assessment Plan Free Text A P: This is a 63 Y/F with right lung nodules S/p Robotic assisted excision of right u pper lobe lung nodule. Staple excision of blebs right upper lobe of lung. Extensive subq emphysema-CT to suction, has smal l intemittent air leak DVT prophylasix lovenox Encourage IS and ambulation Will monitor closely. Plan discussed with: patient, collaborating MD ( Dr. Rivera) at 0952 at 3420 RPT #:[id number] END OF REPORT 2018-12-04 07:12:00-00:00 [facility] ([facility] Cardiology Progress Note REPORT#:[id number] REPORT STATUS: Signed DATE:12/04/18 TIME: 711 PATIENT: MOISÉS CANNON UNIT #: [id number] ROOM/BED: [address] : 55 AGE: 63 SEX: F ATTEND: Augustus Rivera MD ADM AUTHOR: Miguel Chawla MD * ALL edits or amendments must be made on the [employer]/computer document * Subjective Chief Complaint: post-op CP, less SOB Patient reports: No: chest pain, palpitations, shortness of breat h. Objective General VS/I O: 24 hour I O ending at 0700: 12/04 0700 12/03 1900 Intake Total 750 Output Total 650 1275 Balance -650 -525 Intake, Oral 750 Output, Chest 25 Tube Drainage Output, Urine 650 1250 Vital Signs: Date Time Temp Pulse Resp B/P B/P Pulse O2 O2 F low FiO2 Mean Ox Delivery Rate 12/04 0402 98.0 12/04 0400 81 13 95 12/04 0330 84 25 96 12/04 0300 85 19 96 12/04 0239 98.0 12/04 0230 89 19 96 12/04 0200 86 18 139/73 98 95 12/04 0130 86 16 93 12/04 0100 84 21 95 12/04 0036 83 22 142/81 107 96 12/04 0030 79 12 100 12/04 0022 Nasal 2.679377 cannula 12/04 0000 82 26 97 12/03 2330 86 22 93 12/03 2300 86 25 145/79 103 95 12/03 2245 84 25 157/84 114 98 12/03 2230 85 25 156/74 107 93 12/03 2219 85 28 141/67 96 97 12/03 2215 90 32 172/79 114 95 12/03 2200 90 25 159/76 109 95 12/04 2015 96 Nasal 4.390217 36 cannula 12/04 1999 Nasal 3.861832 cannula 12/03 1920 92 31 94 12/03 1653 98.1 79 17 130/86 100.5 97 Nasal cannula 12/03 1600 78 12 119/62 83 96 12/03 1551 97.7 86 15 115/58 77 96 Nasal 2.000 000 cannula 12/03 1530 82 12 115/58 84 95 12/03 1506 147/71 102 12/03 1430 88 13 96 12/03 1400 94 34 12/03 1230 69 10 140/97 115 96 12/03 1200 97.6 74 13 137/91 106 95 Nasal 2.00 0000 cannula 12/03 1200 74 13 137/91 110 95 12/03 1130 75 12 115/71 87 95 12/03 1100 81 13 157/72 99 94 12/03 1030 81 20 142/90 112 95 12/03 0930 82 21 144/96 116 94 12/03 0900 81 15 149/68 97 96 12/03 0852 83 26 114/72 88 96 12/03 0800 97.1 81 20 114/72 86 96 Nasal 2.0000 00 cannula 12/03 0744 98 Nasal 2.362432 28 cannula 12/03 0741 Nasal 2.950516 cannula 12/03 0730 73 27 122/82 98 96 Status post: Robotic assisted excision of right upper lobe pancho ng nodule. Staple excision of blebs right upper lobe of lung. Physical Exam Head/Eyes: atraumatic, normocephalic, PERRLA ENT: moist mucosal membranes Neck: supple/no meningismus, no bruit/NL carotids, no JVD, no masses or swelling Cardiovascular: CV assessment: regular rate and rhythm, BP puls es = bilaterally, normal heart sounds, no murmur Respiratory: dullness to percussion, on oxygen, clear to auscultation, no distress Abdomen: soft, non-tender, no mass/organ omegaly, no pulsatile mass, no rebound Lower extremity: LE assessment: no edema, 2+ peripheral pulses Musculoskeletal: full range of motion Neuro/[employer]ER: alert, oriented X 3, CN II-XII intact , no motor deficits Psychiatry: normal affect, normal judgment/insig ht, normal mood, no hallucinations Results Radiology data: Recent Impressions: RADIOLOGY - XR CHEST 1V 12/03 183 Report Impression - Status: SIGNED Entered: 12/03/2018 1850 IMPRESSION: Stable right pneumothorax status post placement of right-sided chest tube. Interval development of extensive soft tis sonal emphysematous changes. Impression By: JuanRRJosé Manuel Elizabeth M.D. Diagnosis, Assessment Plan Free Text DxA P Notes Free Text DxA P Notes: IMPRESSION: S/P Robotic assisted excision of right upper lo be lung nodule. Staple excision of blebs right upper lobe of lung. R PTX CAD-stable HTN HLP PVC's PAD AAA S/P EVAR COPD RECOMMEND: Continue current medical rx. Ambulate at 0617 RPT #:[id number] END OF REPORT 2018-12-04 00:46:00-00:00 [facility] ([facility]) Hospitalist Progress Note REPORT#:[id number] REPORT STATUS: Signed DATE:12/04/18 TIME: 45 PATIENT: MOISÉS CANNON UNIT #: [id number] [address]OM/BED: [address] : 55 AGE: 63 SEX: F ATTEND: Augustus Rivera MD ADM AUTHOR: Darcy Price MD * ALL edits or amendments must be made on the el ectronic/computer document * Subjective Chief Complaint: doing ok today. denies any cp or sob Review of Systems Systems reviewed negative: Allergy/Immun , Constitutional, Endocrine, ENT, Eyes , GI, , Heme, Musculoskeletal, Neuro, Psych, S kin Objective General VS/I O: Vital Signs: Date Time Temp Pulse Resp B/P B/P Pulse O2 O2 F low FiO2 Mean Ox Delivery Rate 12/04 0030 79 12 100 12/04 0022 Nasal 2.956920 cannula 03/ 0000 82 26 97 03/ 2330 86 22 93 03/ 2300 86 25 145/79 103 95 03/ 2245 84 25 157/84 114 98 03/ 2230 85 25 156/74 107 93 03/ 2219 85 28 141/67 96 97 03/ 2215 90 32 172/79 114 95 03/ 2200 90 25 159/76 109 95 032015 96 Nasal 4.829804 36 cannula 12/04 1999 Nasal 3.861622 cannula / 1920 92 31 94 03/ 1653 36.7 79 17 130/86 100.5 97 Nasal cannula / 1600 78 12 119/62 83 96 03/ 1551 36.5 86 15 115/58 77 96 Nasal 2.0000 00 cannula / 1530 82 12 115/58 84 95 03/ 1506 147/71 102 03/ 1430 88 13 96 03/ 1400 94 34 03/ 1230 69 10 140/97 115 96 03/ 1200 36.4 74 13 137/91 106 95 Nasal 2.000 000 cannula 03/ 1200 74 13 137/91 110 95 03/ 1130 75 12 115/71 87 95 03/25 1100 81 13 157/72 99 94 03/ 1030 81 20 142/90 112 95 03/ 0930 82 21 144/96 116 94 03/25 0900 81 15 149/68 97 96 03/ 0852 83 26 114/72 88 96 03/25 0800 36.2 81 20 114/72 86 96 Nasal 2.0000 00 cannula 12/03 0744 98 Nasal 2.984350 28 cannula 12/03 0741 Nasal 2.836248 cannula / 0730 73 27 122/82 98 96 03/25 0700 75 22 136/97 112 96 03/25 0530 79 27 121/89 101 94 03/25 0500 81 15 157/77 108 92 03/25 0430 77 14 127/85 103 96 03/25 0400 36.6 03/25 0400 79 24 97 03/25 0330 76 24 126/86 102 97 03/25 0300 78 13 96 03/25 0230 78 24 132/87 104 97 03/25 0200 77 29 147/65 94 95 03/25 0130 75 16 146/95 116 93 03/25 0100 75 23 142/78 100 98 24 hour I O ending at 0700: 12/04 0700 12/03 1900 Intake Total 750 Output Total 1275 Balance -525 Intake, Oral 750 Output, Chest 25 Tube Drainage Output, Urine 1250 Medications: Active Meds + DC'd Last 24 Hrs Albuterol/Ipratropium 3 ML RTQ6H INH Morphine Sulfate 2 MG Q4H PRN PRN IV (DC) Mupirocin 1 APPLIC BID NASAL Atorvastatin Calcium 40 MG BEDTIME PO Citalopram Hydrobromide 20 MG BEDTIME PO Docusate Sodium 100 MG BID PO Metoprolol Tartrate 25 MG BEDTIME PO Pantoprazole 20 MG BEDTIME PO Pantoprazole 40 MG DAILY IV (DC) Zolpidem Tartrate 10 MG BEDTIME PO Budesonide 0.25 MG RTQ12H NEB Acetaminophen 650 MG Q4H PRN PRN PO Acetaminophen 650 MG Q4H PRN PRN RECTAL Bisacodyl 5 MG DAILY PRN PRN PO Bisacodyl 10 MG DAILY PRN PRN RECTAL Hydrocodone Bitart/Acetaminophen 1 TAB Q4H PRN P RN PO Hydrocodone Bitart/Acetaminophen 2 TAB Q4H PRN P RN PO Magnesium Hydroxide 30 ML DAILY PRN PRN PO Meperidine HCl 25 MG Q4H PRN PRN IM Naloxone HCl 0.2 MG ASDIR PRN IV Ondansetron HCl 4 MG Q4H PRN PRN IV Physical Exam Head/Eyes: atraumatic, clear cornea, EOMI, faye l conjunctiva/sclera, normal eyelids/periorb., PERRL ENT: normal dentition, normal ear left, normal e ar right, normal nose, normal pharynx, normal sinus Neck: full range of motion, non-tender, normal thyroid, supple/no meningismus, no bruit/NL carotids, no JVD, no masses or swell ing Cardiovascular: normal capillary refill, regular rate rhythm Respiratory: clear to auscultation, no distress Abdomen: non-tender, normal bowel sounds , soft, no distention, no guarding, no hernial, no mass/organomegaly, no rebound Extremities: moves all, normal capillary refill, normal range of motion, no edema Musculoskeletal: normal inspection Neuro/PRODUCTION PLANNER SCHEDULER: alert, oriented X 3 Results Findings/Data: Laboratory Tests 03/25 0415 Chemistry Sodium (137 - 145 MMOL/L) 137 Potassium (3.5 - 5.1 MMOL/L) 4.5 Chloride (98 - 107 MMOL/L) 101 Carbon Dioxide (22 - 30 MMOL/L) 32 H Anion Gap (14 - 24 MMOL/L) 9 L BUN (7 - 17 MG/DL) 14 Creatinine (0.52 - 1.04 MG/DL) 0.60 Glomerular Filtr Rate > 60 Glucose (74 - 106 MG/DL) 91 Calcium (8.4 - 10.2 MG/DL) 8.8 Magnesium (1.6 - 2.3 MG/DL) 2.0 Laboratory Tests 12/03 414 Hematology WBC (3.8 - 9.8 K/MM3) 8.8 RBC (3.58 - 4.97 M/MM3) 3.62 Hgb (11.2 - 14.9 G/DL) 10.4 L Hct (33.2 - 43.5 %) 34.0 MCV (80.7 - 99.1 fL) 94 MCH (27.0 - 34.1 pg) 28.7 MCHC (32.2 - 35.7 %) 30.6 L RDW (12.1 - 15.2 %) 14.6 Plt Count (129 - 368 K/MM3) 205 MPV (7.4 - 10.4 fl) 9.4 Neut % (Auto) (43 - 75 %) 68.9 Lymph % (Auto) (14 - 44 %) 16.4 [place] % (Auto) (4 - 13 %) 11.2 Eos % (Auto) (0 - 6 %) 2.4 Baso % (Auto) (0 - 2 %) 0.6 Neut # (Auto) (2.0 - 7.6 K/mm3) 6.10 Lymph # (Auto) (1.0 - 3.8 K/mm3) 1.45 [place] # (Auto) (0.1 - 0.8 K/mm3) 0.99 H Eos # (Auto) (0.0 - 0.2 K/mm3) 0.21 H Baso # (Auto) (0.0 - 0.2 K/mm3) 0.05 Immature Gran % (0.0 - 2.0 %) 0.5 Nucleated RBC % (0 - 1.0 %) 0.0 Nucleated RBCs # (Man) (0.0 - 0.1 K/mm3) 0.00 Radiology data: Recent Impressions: RADIOLOGY - XR CHEST 1V 12/03 0540 Report Impression - Status: SIGNED Entered: 12/03/2018 0749 IMPRESSION: 1. More pronounced perihilar infiltrates with fl uid and/or thickening of the right interlobar fissure. 2. Status post partial right lobectomy. No pneum othorax with right chest tube in place. Impression By: Ludwig Ghosh M.D. RADIOLOGY - XR CHEST 1V 12/03 1830 Report Impression - Status: SIGNED Entered: 12/03/2018 1850 IMPRESSION: Stable right pneumothorax status post placement of right-sided chest tube. Interval development of extensive soft tis sonal emphysematous changes. Impression By: [email or web address] Rosalinda Elizabeth M.D. Diagnosis, Assessment Plan Free Text DxA P Notes Free text DxA P notes: Assesment: -RUL nodule/blebs s/p excision -Dyspnea on exertion Plan: -Continue oxygen as needed -cont nebs , pulmicort -Monitor chest tube output; Management per CT barth rgeon -Continue home meds as appropriate -pain control -DVT prophylaxis - SCD 12/02 cont chest tube cont oxygen, nebs management per [facility] ppx: scd 12/03 pt is stable, transfer out icu cont chest tube cont cont management Electronically Signed by Darcy Price MD on 9 at 0048 RPT #:[id number] END OF REPORT 2018-12-04 00:43:00-00:00 [facility] ([facility]) Hospitalist Progress Note REPORT#:[id number] REPORT STATUS: Signed DATE:12/04/18 TIME: 004 PATIENT: MOISÉS CANNON UNIT #: [id number] ROOM/BED: [facility] : 55 AGE: 63 SEX: F ATTEND: Augustus Rivera MD ADM AUTHOR: Darcy Price MD * ALL edits or amendments must be made on the el ectronic/computer document * Subjective Chief Complaint: doing ok today. denies any cp or sob Review of Systems Systems reviewed negative: Allergy/Immun , Constitutional, Endocrine, ENT, Eyes , GI, , Heme, Musculoskeletal, Neuro, Psych, S kin Objective General VS/I O: Vital Signs: Date Time Temp Pulse Resp B/P B/P Pulse O2 O2 F low FiO2 Mean Ox Delivery Rate 12/04 0030 79 12 100 12/04 0022 Nasal 2.088580 cannula 12/04 0000 82 26 97 12/03 2330 86 22 93 12/03 2300 86 25 145/79 103 95 12/03 2245 84 25 157/84 114 98 12/03 2230 85 25 156/74 107 93 12/03 2219 85 28 141/67 96 97 12/03 2215 90 32 172/79 114 95 12/03 2200 90 25 159/76 109 95 12/03 2016 96 Nasal 4.444702 36 cannula 12/04 1999 Nasal 3.492583 cannula 12/03 1920 92 31 94 12/03 1653 36.7 79 17 130/86 100.5 97 Nasal cannula 12/03 1600 78 12 119/62 83 96 12/03 1551 36.5 86 15 115/58 77 96 Nasal 2.000 000 cannula 12/03 1530 82 12 115/58 84 95 12/03 1506 147/71 102 12/03 1430 88 13 96 12/03 1400 94 34 12/03 1230 69 10 140/97 115 96 12/03 1200 36.4 74 13 137/91 106 95 Nasal 2.000 000 cannula 12/03 1200 74 13 137/91 110 95 12/03 1130 75 12 115/71 87 95 12/03 1100 81 13 157/72 99 94 12/03 1030 81 20 142/90 112 95 12/03 0930 82 21 144/96 116 94 12/03 0900 81 15 149/68 97 96 12/03 0852 83 26 114/72 88 96 12/03 0800 36.2 81 20 114/72 86 96 Nasal 2.0000 00 cannula 12/03 0744 98 Nasal 2.739062 28 cannula 12/03 0741 Nasal 2.577079 cannula 12/03 0730 73 27 122/82 98 96 12/03 0700 75 22 136/97 112 96 12/03 0530 79 27 121/89 101 94 12/03 0500 81 15 157/77 108 92 0325 0430 77 14 127/85 103 96 12/03 0400 36.6 12/03 0400 79 24 97 12/03 0330 76 24 126/86 102 97 12/03 0300 78 13 96 12/03 0230 78 24 132/87 104 97 12/03 0200 77 29 147/65 94 95 12/03 0130 75 16 146/95 116 93 12/03 0100 75 23 142/78 100 98 24 hour I O ending at 0700: 12/04 0700 12/03 1900 Intake Total 750 Output Total 1275 Balance -525 Intake, Oral 750 Output, Chest 25 Tube Drainage Output, Urine 1250 Medications: Active Meds + DC'd Last 24 Hrs Albuterol/Ipratropium 3 ML RTQ6H INH Morphine Sulfate 2 MG Q4H PRN PRN IV (DC) Mupirocin 1 APPLIC BID NASAL Atorvastatin Calcium 40 MG BEDTIME PO Citalopram Hydrobromide 20 MG BEDTIME PO Docusate Sodium 100 MG BID PO Metoprolol Tartrate 25 MG BEDTIME PO Pantoprazole 20 MG BEDTIME PO Pantoprazole 40 MG DAILY IV (DC) Zolpidem Tartrate 10 MG BEDTIME PO Budesonide 0.25 MG RTQ12H NEB Acetaminophen 650 MG Q4H PRN PRN PO Acetaminophen 650 MG Q4H PRN PRN RECTAL Bisacodyl 5 MG DAILY PRN PRN PO Bisacodyl 10 MG DAILY PRN PRN RECTAL Hydrocodone Bitart/Acetaminophen 1 TAB Q4H PRN P RN PO Hydrocodone Bitart/Acetaminophen 2 TAB Q4H PRN P RN PO Magnesium Hydroxide 30 ML DAILY PRN PRN PO Meperidine HCl 25 MG Q4H PRN PRN IM Naloxone HCl 0.2 MG ASDIR PRN IV Ondansetron HCl 4 MG Q4H PRN PRN IV Physical Exam General appearance: alert, awake Head/Eyes: atraumatic, clear cornea, EOMI, faye l conjunctiva/sclera, normal eyelids/periorb., PERRL ENT: normal dentition, normal ear left, normal e ar right, normal nose, normal pharynx, normal sinus Neck: full range of motion, non-tender, normal thyroid, supple/no meningismus, no bruit/NL carotids, no JVD, no masses or swell ing Cardiovascular: normal capillary refill, regular rate rhythm Respiratory: clear to auscultation, no distress Abdomen: non-tender, normal bowel sounds , soft, no distention, no guarding, no hernial, no mass/organomegaly, no rebound Extremities: moves all, normal capillary refill, normal range of motion, no edema Musculoskeletal: normal inspection Neuro/PRODUCTION PLANNER SCHEDULER: alert, oriented X 3 Treatment Prophylaxis Treatment Prophylaxis William documentation: The data below has been impo rted from nursing documentation. Any exceptions have been noted below under Provider comments. _ Nursing Documentation Date william inserted: 11/30/18 Date william discontinued: 12/01/18 _ Provider comments: [] Diagnosis, Assessment Plan Free Text DxA P Notes Free text DxA P notes: Assesment: -RUL nodule/blebs s/p excision -Dyspnea on exertion Plan: -Continue oxygen as needed -cont nebs , pulmicort -Monitor chest tube output; Management per CT barth rgeon -Continue home meds as appropriate -pain control -DVT prophylaxis - SCD 12/02 cont chest tube cont oxygen, nebs management per [facility] ppx: scd Electronically Signed by Darcy Price MD on 9 at 0046 RPT #:[id number] END OF REPORT 2018-12-03 10:12:00-00:00 [facility] ([facility]) Cardiovascular Surgery Prog REPORT#:[id number] REPORT STATUS: Signed DATE:12/03/18 TIME: 1012 PATIENT: MOISÉS CANNON UNIT #: [id number] [address] AGE: 63 SEX: F ATTEND: Augustus Rivera MD ADM AUTHOR: Oumou Stanley NP * ALL edits or amendments must be made on the Digital [employer]/computer document * General Post-op: day 3 Status post: Robotic assisted excision of right upper lobe pancho ng nodule. Staple excision of blebs right upper lobe of lung. Subjective Patient reports: Yes: incisional pain. No: chest pain. Comments: Seen at bedside, sitting on the chair Denies CP or SOB Reports right chest incisional pain Review of Systems Constitutional: Denies: chills, fever, generalized weakness. Respiratory: Denies: DIAMOND (dyspnea on exertion), SOB. Cardiovascular: Denies: chest pain, DIAMOND (dyspnea on exer tion), edema, orthopnea, palpitations. Objective Physical Exam VS/I O: Last Documented: Result Date Time Pulse Ox 96 12/03 0800 B/P 114/72 12/03 0800 B/P Mean 86 12/03 0800 O2 Delivery Nasal cannula 12/03 08 O2 Flow Rate 2.428352 12/03 0800 Temp 97.1 12/03 0800 Pulse 81 12/03 0800 Resp 20 12/03 0800 FiO2 32 12/02 1853 24 hour I O ending at 0700: 12/03 0700 12/02 1900 Intake Total 660 400 Output Total 620 Balance 40 400 Intake, Oral 660 400 Number Voids 3 3 Output, Chest 30 Tube Drainage Output, Urine 590 Medications: Active Meds + DC'd Last 24 Hrs Albuterol/Ipratropium 3 ML RTQ6H INH Morphine Sulfate 2 MG Q4H PRN PRN IV Mupirocin 1 APPLIC BID NASAL Atorvastatin Calcium 40 MG BEDTIME PO Citalopram Hydrobromide 20 MG BEDTIME PO Docusate Sodium 100 MG BID PO Ipratropium Freedom 0.5 MG RTQ6H NEB (DC) Metoprolol Tartrate 25 MG BEDTIME PO Pantoprazole 20 MG BEDTIME PO Pantoprazole 40 MG DAILY IV Zolpidem Tartrate 10 MG BEDTIME PO Albuterol Sulfate 2.5 MG RTQ6H NEB (DC) Budesonide 0.25 MG RTQ12H NEB Acetaminophen 650 MG Q4H PRN PRN PO Acetaminophen 650 MG Q4H PRN PRN RECTAL Bisacodyl 5 MG DAILY PRN PRN PO Bisacodyl 10 MG DAILY PRN PRN RECTAL Hydrocodone Bitart/Acetaminophen 1 TAB Q4H PRN P RN PO Hydrocodone Bitart/Acetaminophen 2 TAB Q4H PRN P RN PO Magnesium Hydroxide 30 ML DAILY PRN PRN PO Meperidine HCl 25 MG Q4H PRN PRN IM Naloxone HCl 0.2 MG ASDIR PRN IV Ondansetron HCl 4 MG Q4H PRN PRN IV General appearance: alert, awake, oriented, no a cute distress Wound/incision: Location: right thoracotomy Site condition: dressing clean dry, dressing in tact, no drainage Neck: non-tender, no masses or swelling Cardiovascular: BP/pulses equal bilat., normal h eart sounds, regular rate rhythm Respiratory: aerating well, clear to auscultatio n, symmetric expansion, no distress, CT to water seal-small intermittent ai r leak Abdomen: distended (mild), non-tender, normal priscilla wel sounds Genitourinary: no william Extremities: moves all, no edema Neuro/PRODUCTION PLANNER SCHEDULER: alert, oriented X 3 Results Findings/Data: Laboratory Tests 12/03 414 Chemistry Sodium (137 - 145 MMOL/L) 137 Potassium (3.5 - 5.1 MMOL/L) 4.5 Chloride (98 - 107 MMOL/L) 101 Carbon Dioxide (22 - 30 MMOL/L) 32 H Anion Gap (14 - 24 MMOL/L) 9 L BUN (7 - 17 MG/DL) 14 Creatinine (0.52 - 1.04 MG/DL) 0.60 Glomerular Filtr Rate > 60 Glucose (74 - 106 MG/DL) 91 Calcium (8.4 - 10.2 MG/DL) 8.8 Magnesium (1.6 - 2.3 MG/DL) 2.0 Laboratory Tests 12/03 414 Hematology WBC (3.8 - 9.8 K/MM3) 8.8 RBC (3.58 - 4.97 M/MM3) 3.62 Hgb (11.2 - 14.9 G/DL) 10.4 L Hct (33.2 - 43.5 %) 34.0 MCV (80.7 - 99.1 fL) 94 MCH (27.0 - 34.1 pg) 28.7 MCHC (32.2 - 35.7 %) 30.6 L RDW (12.1 - 15.2 %) 14.6 Plt Count (129 - 368 K/MM3) 205 MPV (7.4 - 10.4 fl) 9.4 Neut % (Auto) (43 - 75 %) 68.9 Lymph % (Auto) (14 - 44 %) 16.4 [place] % (Auto) (4 - 13 %) 11.2 Eos % (Auto) (0 - 6 %) 2.4 Baso % (Auto) (0 - 2 %) 0.6 Neut # (Auto) (2.0 - 7.6 K/mm3) 6.10 Lymph # (Auto) (1.0 - 3.8 K/mm3) 1.45 [place] # (Auto) (0.1 - 0.8 K/mm3) 0.99 H Eos # (Auto) (0.0 - 0.2 K/mm3) 0.21 H Baso # (Auto) (0.0 - 0.2 K/mm3) 0.05 Immature Gran % (0.0 - 2.0 %) 0.5 Nucleated RBC % (0 - 1.0 %) 0.0 Nucleated RBCs # (Man) (0.0 - 0.1 K/mm3) 0.00 Radiology data: Recent Impressions: RADIOLOGY - XR CHEST 1V 12/03 0540 Report Impression - Status: SIGNED Entered: 12/03/2018 0749 IMPRESSION: 1. More pronounced perihilar infiltrates with fl uid and/or thickening of the right interlobar fissure. 2. Status post partial right lobectomy. No pneu mothorax with right chest tube in place. Impression By: Ludwig Ghosh M.D. Diagnosis, Assessment Plan Free Text A P: This is a 63 Y/F with right lung nodules S/p Robotic assisted excision of right u pper lobe lung nodule. Staple excision of blebs right upper lobe of lung. CT to water seal-has intermittent air leak CXR noted Encourage IS and ambulation OK for CVU transfer Orders: Procedure Date/time Status Transfer 12/03 1024 Active Plan discussed with: patient, collaborating MD ( Dr. Rivera), nurse (at ) at 1027 RPT #:[id number] END OF REPORT 2018-12-03 10:12:00-00:00 [facility] ([facility]) Cardiovascular Surgery Prog REPORT#:[id number] REPORT STATUS: Signed DATE:12/03/18 TIME: 1012 PATIENT: MOISÉS CANNON UNIT #: [id number] ROOM/BED: [address] : 55 AGE: 63 SEX: F ATTEND: Augustus Rivera MD ADM AUTHOR: Oumou Stanley NP * ALL edits or amendments must be made on the Digital [employer]/computer document * General Post-op: day 3 Status post: Robotic assisted excision of right upper lobe pancho ng nodule. Staple excision of blebs right upper lobe of lung. Subjective Patient reports: Yes: incisional pain. No: chest pain. Comments: Seen at bedside, sitting on the chair Denies CP or SOB Reports right chest incisional pain Review of Systems Constitutional: Denies: chills, fever, generalized weakness. Respiratory: Denies: DIAMOND (dyspnea on exertion), SOB. Cardiovascular: Denies: chest pain, DIAMOND (dyspnea on exer tion), edema, orthopnea, palpitations. Objective Physical Exam VS/I O: Last Documented: Result Date Time Pulse Ox 96 12/03 0800 B/P 114/72 12/03 0800 B/P Mean 86 12/03 0800 O2 Delivery Nasal cannula 12/03 08 O2 Flow Rate 2.317090 12/03 08 Temp 97.1 12/03 0800 Pulse 81 12/03 0800 Resp 20 12/03 08 FiO2 32 12/02 1853 24 hour I O ending at 0700: 12/03 0700 12/02 1900 Intake Total 660 400 Output Total 620 Balance 40 400 Intake, Oral 660 400 Number Voids 3 3 Output, Chest 30 Tube Drainage Output, Urine 590 Medications: Active Meds + DC'd Last 24 Hrs Albuterol/Ipratropium 3 ML RTQ6H INH Morphine Sulfate 2 MG Q4H PRN PRN IV Mupirocin 1 APPLIC BID NASAL Atorvastatin Calcium 40 MG BEDTIME PO Citalopram Hydrobromide 20 MG BEDTIME PO Docusate Sodium 100 MG BID PO Ipratropium Freedom 0.5 MG RTQ6H NEB (DC) Metoprolol Tartrate 25 MG BEDTIME PO Pantoprazole 20 MG BEDTIME PO Pantoprazole 40 MG DAILY IV Zolpidem Tartrate 10 MG BEDTIME PO Albuterol Sulfate 2.5 MG RTQ6H NEB (DC) Budesonide 0.25 MG RTQ12H NEB Acetaminophen 650 MG Q4H PRN PRN PO Acetaminophen 650 MG Q4H PRN PRN RECTAL Bisacodyl 5 MG DAILY PRN PRN PO Bisacodyl 10 MG DAILY PRN PRN RECTAL Hydrocodone Bitart/Acetaminophen 1 TAB Q4H PRN P RN PO Hydrocodone Bitart/Acetaminophen 2 TAB Q4H PRN P RN PO Magnesium Hydroxide 30 ML DAILY PRN PRN PO Meperidine HCl 25 MG Q4H PRN PRN IM Naloxone HCl 0.2 MG ASDIR PRN IV Ondansetron HCl 4 MG Q4H PRN PRN IV General appearance: alert, awake, oriented, no a cute distress Wound/incision: Location: right thoracotomy Site condition: dressing clean dry, dressing in tact, no drainage Neck: non-tender, no masses or swelling Cardiovascular: BP/pulses equal bilat., normal h eart sounds, regular rate rhythm Respiratory: aerating well, clear to auscultatio n, symmetric expansion, no distress, CT to water seal-small intermittent ai r leak Abdomen: distended (mild), non-tender, normal priscilla wel sounds Genitourinary: no william Extremities: moves all, no edema Neuro/PRODUCTION PLANNER SCHEDULER: alert, oriented X 3 Results Findings/Data: Laboratory Tests 12/03 0415 Chemistry Sodium (137 - 145 MMOL/L) 137 Potassium (3.5 - 5.1 MMOL/L) 4.5 Chloride (98 - 107 MMOL/L) 101 Carbon Dioxide (22 - 30 MMOL/L) 32 H Anion Gap (14 - 24 MMOL/L) 9 L BUN (7 - 17 MG/DL) 14 Creatinine (0.52 - 1.04 MG/DL) 0.60 Glomerular Filtr Rate > 60 Glucose (74 - 106 MG/DL) 91 Calcium (8.4 - 10.2 MG/DL) 8.8 Magnesium (1.6 - 2.3 MG/DL) 2.0 Laboratory Tests 12/03 0415 Hematology WBC (3.8 - 9.8 K/MM3) 8.8 RBC (3.58 - 4.97 M/MM3) 3.62 Hgb (11.2 - 14.9 G/DL) 10.4 L Hct (33.2 - 43.5 %) 34.0 MCV (80.7 - 99.1 fL) 94 MCH (27.0 - 34.1 pg) 28.7 MCHC (32.2 - 35.7 %) 30.6 L RDW (12.1 - 15.2 %) 14.6 Plt Count (129 - 368 K/MM3) 205 MPV (7.4 - 10.4 fl) 9.4 Neut % (Auto) (43 - 75 %) 68.9 Lymph % (Auto) (14 - 44 %) 16.4 [place] % (Auto) (4 - 13 %) 11.2 Eos % (Auto) (0 - 6 %) 2.4 Baso % (Auto) (0 - 2 %) 0.6 Neut # (Auto) (2.0 - 7.6 K/mm3) 6.10 Lymph # (Auto) (1.0 - 3.8 K/mm3) 1.45 [place] # (Auto) (0.1 - 0.8 K/mm3) 0.99 H Eos # (Auto) (0.0 - 0.2 K/mm3) 0.21 H Baso # (Auto) (0.0 - 0.2 K/mm3) 0.05 Immature Gran % (0.0 - 2.0 %) 0.5 Nucleated RBC % (0 - 1.0 %) 0.0 Nucleated RBCs # (Man) (0.0 - 0.1 K/mm3) 0.00 Radiology data: Recent Impressions: RADIOLOGY - XR CHEST 1V 12/03 1725 Report Impression - Status: SIGNED Entered: 12/03/2018 3365 IMPRESSION: 1. More pronounced perihilar infiltrates with fl uid and/or thickening of the right interlobar fissure. 2. Status post partial right lobectomy. No pneum othorax with right chest tube in place. Impression By: [facility] Rosalinda Ghosh M.D. Diagnosis, Assessment Plan Free Text A P: This is a 63 Y/F with right lung nodules S/p Robotic assisted excision of right u pper lobe lung nodule. Staple excision of blebs right upper lobe of lung. CT to water seal-has intermittent air leak CXR noted Encourage IS and ambulation OK for CVU transfer Orders: Procedure Date/time Status Transfer 12/03 1024 Active Plan discussed with: patient, collaborating MD ( Dr. Rivera), nurse (at ) at 1027 at 1743 RPT #:[id number] END OF REPORT 2018-12-03 10:12:00-00:00 [facility] ([facility]) Cardiovascular Surgery Prog REPORT#:[id number] REPORT STATUS: Signed DATE:12/03/18 TIME: 1012 PATIENT: MOISÉS CANNON UNIT #: [id number] ROOM/BED: [address] : 55 AGE: 63 SEX: F ATTEND: Augustus Rivera MD ADM AUTHOR: Oumou Stanley NP * ALL edits or amendments must be made on the [employer]/computer document * See Addendum General Post-op: day 3 Status post: Robotic assisted excision of right upper lobe pancho ng nodule. Staple excision of blebs right upper lobe of lung. Subjective Patient reports: Yes: incisional pain. No: chest pain. Comments: Seen at bedside, sitting on the chair Denies CP or SOB Reports right chest incisional pain Review of Systems Constitutional: Denies: chills, fever, generalized weakness. Respiratory: Denies: DIAMOND (dyspnea on exertion), SOB. Cardiovascular: Denies: chest pain, DIAMOND (dyspnea on exer tion), edema, orthopnea, palpitations. Objective Physical Exam VS/I O: Last Documented: Result Date Time Pulse Ox 96 12/03 08 B/P 114/72 12/03 08 B/P Mean 86 12/03 08 O2 Delivery Nasal cannula 12/03 08 O2 Flow Rate 2.305066 12/03 08 Temp 97.1 12/03 08 Pulse 81 12/03 0800 Resp 20 12/03 08 FiO2 32 12/02 1853 24 hour I O ending at 0700: 12/03 0700 12/02 1900 Intake Total 660 400 Output Total 620 Balance 40 400 Intake, Oral 660 400 Number Voids 3 3 Output, Chest 30 Tube Drainage Output, Urine 590 Medications: Active Meds + DC'd Last 24 Hrs Albuterol/Ipratropium 3 ML RTQ6H INH Morphine Sulfate 2 MG Q4H PRN PRN IV Mupirocin 1 APPLIC BID NASAL Atorvastatin Calcium 40 MG BEDTIME PO Citalopram Hydrobromide 20 MG BEDTIME PO Docusate Sodium 100 MG BID PO Ipratropium Freedom 0.5 MG RTQ6H NEB (DC) Metoprolol Tartrate 25 MG BEDTIME PO Pantoprazole 20 MG BEDTIME PO Pantoprazole 40 MG DAILY IV Zolpidem Tartrate 10 MG BEDTIME PO Albuterol Sulfate 2.5 MG RTQ6H NEB (DC) Budesonide 0.25 MG RTQ12H NEB Acetaminophen 650 MG Q4H PRN PRN PO Acetaminophen 650 MG Q4H PRN PRN RECTAL Bisacodyl 5 MG DAILY PRN PRN PO Bisacodyl 10 MG DAILY PRN PRN RECTAL Hydrocodone Bitart/Acetaminophen 1 TAB Q4H PRN P RN PO Hydrocodone Bitart/Acetaminophen 2 TAB Q4H PRN P RN PO Magnesium Hydroxide 30 ML DAILY PRN PRN PO Meperidine HCl 25 MG Q4H PRN PRN IM Naloxone HCl 0.2 MG ASDIR PRN IV Ondansetron HCl 4 MG Q4H PRN PRN IV General appearance: alert, awake, oriented, no a cute distress Wound/incision: Location: right thoracotomy Site condition: dressing clean dry, dressing i ntact, no drainage Neck: non-tender, no masses or swelling Cardiovascular: BP/pulses equal bilat., normal h eart sounds, regular rate rhythm Respiratory: aerating well, clear to auscultatio n, symmetric expansion, no distress, CT to water seal-small intermittent ai r leak Abdomen: distended (mild), non-tender, normal priscilla wel sounds Genitourinary: no william Extremities: moves all, no edema Neuro/PRODUCTION PLANNER SCHEDULER: alert, oriented X 3 Results Findings/Data: Laboratory Tests 12/03 414 Chemistry Sodium (137 - 145 MMOL/L) 137 Potassium (3.5 - 5.1 MMOL/L) 4.5 Chloride (98 - 107 MMOL/L) 101 Carbon Dioxide (22 - 30 MMOL/L) 32 H Anion Gap (14 - 24 MMOL/L) 9 L BUN (7 - 17 MG/DL) 14 Creatinine (0.52 - 1.04 MG/DL) 0.60 Glomerular Filtr Rate > 60 Glucose (74 - 106 MG/DL) 91 Calcium (8.4 - 10.2 MG/DL) 8.8 Magnesium (1.6 - 2.3 MG/DL) 2.0 Laboratory Tests 12/03 414 Hematology WBC (3.8 - 9.8 K/MM3) 8.8 RBC (3.58 - 4.97 M/MM3) 3.62 Hgb (11.2 - 14.9 G/DL) 10.4 L Hct (33.2 - 43.5 %) 34.0 MCV (80.7 - 99.1 fL) 94 MCH (27.0 - 34.1 pg) 28.7 MCHC (32.2 - 35.7 %) 30.6 L RDW (12.1 - 15.2 %) 14.6 Plt Count (129 - 368 K/MM3) 205 MPV (7.4 - 10.4 fl) 9.4 Neut % (Auto) (43 - 75 %) 68.9 Lymph % (Auto) (14 - 44 %) 16.4 [place] % (Auto) (4 - 13 %) 11.2 Eos % (Auto) (0 - 6 %) 2.4 Baso % (Auto) (0 - 2 %) 0.6 Neut # (Auto) (2.0 - 7.6 K/mm3) 6.10 Lymph # (Auto) (1.0 - 3.8 K/mm3) 1.45 [place] # (Auto) (0.1 - 0.8 K/mm3) 0.99 H Eos # (Auto) (0.0 - 0.2 K/mm3) 0.21 H Baso # (Auto) (0.0 - 0.2 K/mm3) 0.05 Immature Gran % (0.0 - 2.0 %) 0.5 Nucleated RBC % (0 - 1.0 %) 0.0 Nucleated RBCs # (Man) (0.0 - 0.1 K/mm3) 0.00 Radiology data: Recent Impressions: RADIOLOGY - XR CHEST 1V 12/03 0540 Report Impression - Status: SIGNED Entered: 12/03/2018 0762 IMPRESSION: 1. More pronounced perihilar infiltrates with fl uid and/or thickening of the right interlobar fissure. 2. Status post partial right lobectomy. No pneum othorax with right chest tube in place. Impression By: [facility] Rosalinda Ghosh M.D. Diagnosis, Assessment Plan Free Text A P: This is a 63 Y/F with right lung nodules S/p Robotic assisted excision of right u pper lobe lung nodule. Staple excision of blebs right upper lobe of lung. CT to water seal-has intermittent air leak CXR noted Encourage IS and ambulation OK for CVU transfer Orders: Procedure Date/time Status Transfer 12/03 1024 Active Plan discussed with: patient, collaborating MD ( Dr. Rivera), nurse (at ) at 1027 at 1743 Addendum 1: 12/03/18 1840 by Oumou Stanley BALING MACHINE TENDER for Chris Rivera MD To A/P Subq. Emphysema-received a call from Dr. Rivera who was notified that patient reports change of voice and feels throat swollen at 1820. Patient was evaluated immediately at bedside and noted to have swellin g of neck and upper chest. Increased crepitus on auscultation. stat CXR susanna ws extensive subq air. CT was placed back to suction and has continous air hemal k. Patient remains on nasal cannula at 3 L. Denies SOB. Plan is to frankie lernerfer patient back to SICU for close monitoring. Dr. Rivera and rubber down informed. at 1847 RPT #:[id number] END OF REPORT 2018-12-03 10:12:00-00:00 [facility] ([facility]) Cardiovascular Surgery Prog REPORT#:[id number] REPORT STATUS: Signed DATE:12/03/18 TIME: 1012 PATIENT: MOISÉS CANNON UNIT #: [id number] ROOM/BED: [address] : [birth year] AGE: 63 SEX: F ATTEND: Augustus Rivera MD ADM AUTHOR: Oumou Stanley NP * ALL edits or amendments must be made on the [employer]/computer document * See Addendum General Post-op: day 3 Status post: Robotic assisted excision of right upper lobe pancho ng nodule. Staple excision of blebs right upper lobe of lung. Subjective Patient reports: Yes: incisional pain. No: chest pain. Comments: Seen at bedside, sitting on the chair Denies CP or SOB Reports right chest incisional pain Review of Systems Constitutional: Denies: chills, fever, generalized weakness. Respiratory: Denies: DIAMOND (dyspnea on exertion), SOB. Cardiovascular: Denies: chest pain, DIAMOND (dyspnea on exer tion), edema, orthopnea, palpitations. Objective Physical Exam VS/I O: Last Documented: Result Date Time Pulse Ox 96 12/03 08 B/P 114/72 12/03 08 B/P Mean 86 12/03 08 O2 Delivery Nasal cannula 12/03 08 O2 Flow Rate 2.459265 12/03 08 Temp 97.1 12/03 08 Pulse 81 12/03 08 Resp 20 12/03 08 FiO2 32 12/02 1853 24 hour I O ending at 0700: 12/03 0700 12/02 1900 Intake Total 660 400 Output Total 620 Balance 40 400 Intake, Oral 660 400 Number Voids 3 3 Output, Chest 30 Tube Drainage Output, Urine 590 Medications: Active Meds + DC'd Last 24 Hrs Albuterol/Ipratropium 3 ML RTQ6H INH Morphine Sulfate 2 MG Q4H PRN PRN IV Mupirocin 1 APPLIC BID NASAL Atorvastatin Calcium 40 MG BEDTIME PO Citalopram Hydrobromide 20 MG BEDTIME PO Docusate Sodium 100 MG BID PO Ipratropium Freedom 0.5 MG RTQ6H NEB (DC) Metoprolol Tartrate 25 MG BEDTIME PO Pantoprazole 20 MG BEDTIME PO Pantoprazole 40 MG DAILY IV Zolpidem Tartrate 10 MG BEDTIME PO Albuterol Sulfate 2.5 MG RTQ6H NEB (DC) Budesonide 0.25 MG RTQ12H NEB Acetaminophen 650 MG Q4H PRN PRN PO Acetaminophen 650 MG Q4H PRN PRN RECTAL Bisacodyl 5 MG DAILY PRN PRN PO Bisacodyl 10 MG DAILY PRN PRN RECTAL Hydrocodone Bitart/Acetaminophen 1 TAB Q4H PRN P RN PO Hydrocodone Bitart/Acetaminophen 2 TAB Q4H PRN P RN PO Magnesium Hydroxide 30 ML DAILY PRN PRN PO Meperidine HCl 25 MG Q4H PRN PRN IM Naloxone HCl 0.2 MG ASDIR PRN IV Ondansetron HCl 4 MG Q4H PRN PRN IV General appearance: alert, awake, oriented, no a cute distress Wound/incision: Location: right thoracotomy Site condition: dressing clean dry, dressing in tact, no drainage Neck: non-tender, no masses or swelling Cardiovascular: BP/pulses equal bilat., normal h eart sounds, regular rate rhythm Respiratory: aerating well, clear to auscultatio n, symmetric expansion, no distress, CT to water seal-small intermittent ai r leak Abdomen: distended (mild), non-tender, normal priscilla wel sounds Genitourinary: no william Extremities: moves all, no edema Neuro/PRODUCTION PLANNER SCHEDULER: alert, oriented X 3 Results Findings/Data: Laboratory Tests 12/03 0415 Chemistry Sodium (137 - 145 MMOL/L) 137 Potassium (3.5 - 5.1 MMOL/L) 4.5 Chloride (98 - 107 MMOL/L) 101 Carbon Dioxide (22 - 30 MMOL/L) 32 H Anion Gap (14 - 24 MMOL/L) 9 L BUN (7 - 17 MG/DL) 14 Creatinine (0.52 - 1.04 MG/DL) 0.60 Glomerular Filtr Rate > 60 Glucose (74 - 106 MG/DL) 91 Calcium (8.4 - 10.2 MG/DL) 8.8 Magnesium (1.6 - 2.3 MG/DL) 2.0 Laboratory Tests 12/03 0415 Hematology WBC (3.8 - 9.8 K/MM3) 8.8 RBC (3.58 - 4.97 M/MM3) 3.62 Hgb (11.2 - 14.9 G/DL) 10.4 L Hct (33.2 - 43.5 %) 34.0 MCV (80.7 - 99.1 fL) 94 MCH (27.0 - 34.1 pg) 28.7 MCHC (32.2 - 35.7 %) 30.6 L RDW (12.1 - 15.2 %) 14.6 Plt Count (129 - 368 K/MM3) 205 MPV (7.4 - 10.4 fl) 9.4 Neut % (Auto) (43 - 75 %) 68.9 Lymph % (Auto) (14 - 44 %) 16.4 [place] % (Auto) (4 - 13 %) 11.2 Eos % (Auto) (0 - 6 %) 2.4 Baso % (Auto) (0 - 2 %) 0.6 Neut # (Auto) (2.0 - 7.6 K/mm3) 6.10 Lymph # (Auto) (1.0 - 3.8 K/mm3) 1.45 [place] # (Auto) (0.1 - 0.8 K/mm3) 0.99 H Eos # (Auto) (0.0 - 0.2 K/mm3) 0.21 H Baso # (Auto) (0.0 - 0.2 K/mm3) 0.05 Immature Gran % (0.0 - 2.0 %) 0.5 Nucleated RBC % (0 - 1.0 %) 0.0 Nucleated RBCs # (Man) (0.0 - 0.1 K/mm3) 0.00 Radiology data: Recent Impressions: RADIOLOGY - XR CHEST 1V 12/03 6943 Report Impression - Status: SIGNED Entered: 12/03/2018 0749 IMPRESSION: 1. More pronounced perihilar infiltrates with fl uid and/or thickening of the right interlobar fissure. 2. Status post partial right lobectomy. No pneum othorax with right chest tube in place. Impression By: Marlena[facility] Rosalinda Ghosh M.D. Diagnosis, Assessment Plan Free Text A P: This is a 63 Y/F with right lung nodules S/p Robotic assisted excision of right u pper lobe lung nodule. Staple excision of blebs right upper lobe of lung. CT to water seal-has intermittent air leak CXR noted Encourage IS and ambulation OK for CVU transfer Orders: Procedure Date/time Status Transfer 12/03 1024 Active Plan discussed with: patient, collaborating MD ( Dr. Rivera), nurse (at ) at 1027 at 1743 Addendum 1: 12/03/18 1840 by Oumou Stanley BALING MACHINE TENDER To A/P Subq. Emphysema-received a call from Dr. Rivera who was notified that patient reports change of voice and feels throat swollen at 1820. Patient was evaluated immediately at bedside and noted to have swellin g of neck and upper chest. Increased crepitus on auscultation. stat CXR susanna ws extensive subq air. CT was placed back to suction and has continous air hemal k. Patient remains on nasal cannula at 3 L. Denies SOB. Plan is to t hammadsfer patient back to SICU for close monitoring. Dr. Rivera and rubber down informed. at 1847 at 2350 RPT #:[id number] END OF REPORT 2018-12-03 06:38:00-00:00 [facility] ([facility] Cardiology Progress Note REPORT#:[id number] REPORT STATUS: Signed DATE:12/03/18 TIME: 637 PATIENT: MOISÉS CANNON UNIT #: [id number] ROOM/BED: [address] : [birth year] AGE: 63 SEX: F ATTEND: Augustus Rivera MD ADM AUTHOR: Miguel Chawla MD * ALL edits or amendments must be made on the Digital [employer]/computer document * Subjective Chief Complaint: post-op CP, less SOB Patient reports: No: chest pain, palpitations, shortness of breat h. Objective General VS/I O: 24 hour I O ending at 0700: 12/03 0700 12/02 1900 Intake Total 660 400 Output Total 620 Balance 40 400 Intake, Oral 660 400 Number Voids 3 3 Output, Chest 30 Tube Drainage Output, Urine 590 Vital Signs: Date Time Temp Pulse Resp B/P B/P Pulse O2 O2 F low FiO2 Mean Ox Delivery Rate 12/03 0530 79 27 121/89 101 94 12/03 0500 81 15 157/77 108 92 12/03 0430 77 14 127/85 103 96 12/03 0400 97.8 12/03 0400 79 24 97 12/03 0330 76 24 126/86 102 97 12/03 0300 78 13 96 12/03 0230 78 24 132/87 104 97 12/03 0200 77 29 147/65 94 95 12/03 0130 75 16 146/95 116 93 12/03 0100 75 23 142/78 100 98 12/03 0030 76 25 139/85 108 98 12/03 0000 97.9 12/03 0000 71 23 142/92 112 98 12/02 2330 76 25 122/90 102 98 12/02 2300 82 24 132/77 102 95 12/02 2230 84 25 133/88 105 90 12/02 2200 87 25 136/75 102 95 12/02 2130 101 139/84 103 95 12/02 2100 87 16 136/76 98 99 12/02 2030 88 112/81 93 97 12/03 1999 97.6 12/03 1999 Nasal 2.813702 cannula 12/02 1939 95 149/65 93 95 12/02 1900 77 28 129/69 91 100 12/02 1853 99 Nasal 3.243541 32 cannula 12/02 1830 76 14 134/69 90 99 12/02 1800 77 32 126/89 103 99 12/02 1730 81 39 132/70 95 97 12/02 1700 79 21 121/60 87 98 12/02 1630 84 42 121/65 85 96 12/02 1600 97.8 12/02 1600 83 32 124/69 90 96 / 1530 81 12 115/67 87 97 / 1500 86 13 125/67 88 96 03/ 1430 89 18 126/64 88 97 / 1400 87 15 120/59 82 98 / 1330 84 28 130/63 91 100 03/ 1300 90 29 131/84 102 96 / 1200 90 15 172/85 117 94 03/ 1131 97.7 03/ 1130 72 11 122/83 98 97 03/ 1100 73 11 140/71 98 96 / 1030 76 13 119/71 90 97 / 1015 97 / 1001 79 13 136/74 98 03/ 0930 77 23 112/59 81 94 03/24 0900 75 24 107/57 78 96 / 0830 73 23 100/53 73 97 03/ 0800 96.2 / 0800 Nasal 2.470593 cannula / 0800 63 23 111/62 80 100 03/ 0754 96 Nasal 2.684538 28 cannula / 0730 67 26 104/54 73 97 03/24 0700 67 12 138/72 100 97 Status post: Robotic assisted excision of right upper lobe pancho ng nodule. Staple excision of blebs right upper lobe of lung. Physical Exam General appearance: alert, awake, oriented Head/Eyes: atraumatic, normocephalic, PERRLA ENT: moist mucosal membranes Neck: supple/no meningismus, no bruit/NL carotids, no JVD, no masses or swelling Cardiovascular: CV assessment: regular rate and rhythm, BP puls es = bilaterally, normal heart sounds, no murmur Respiratory: dullness to percussion, on oxygen, clear to auscultation, no distress Abdomen: soft, non-tender, no mass/organ omegaly, no pulsatile mass, no rebound Lower extremity: LE assessment: no edema, 2+ peripheral pulses Musculoskeletal: full range of motion Neuro/PRODUCTION PLANNER SCHEDULER: alert, oriented X 3, CN II-XII intact , no motor deficits Psychiatry: normal affect, normal judgment/insig ht, normal mood, no hallucinations Results Findings/Data: Laboratory Tests 12/035 Chemistry Sodium (137 - 145 MMOL/L) 137 Potassium (3.5 - 5.1 MMOL/L) 4.5 Chloride (98 - 107 MMOL/L) 101 Carbon Dioxide (22 - 30 MMOL/L) 32 H Anion Gap (14 - 24 MMOL/L) 9 L BUN (7 - 17 MG/DL) 14 Creatinine (0.52 - 1.04 MG/DL) 0.60 Glomerular Filtr Rate > 60 Glucose (74 - 106 MG/DL) 91 Calcium (8.4 - 10.2 MG/DL) 8.8 Magnesium (1.6 - 2.3 MG/DL) 2.0 Laboratory Tests 12/03 414 Hematology WBC (3.8 - 9.8 K/MM3) 8.8 RBC (3.58 - 4.97 M/MM3) 3.62 Hgb (11.2 - 14.9 G/DL) 10.4 L Hct (33.2 - 43.5 %) 34.0 MCV (80.7 - 99.1 fL) 94 MCH (27.0 - 34.1 pg) 28.7 MCHC (32.2 - 35.7 %) 30.6 L RDW (12.1 - 15.2 %) 14.6 Plt Count (129 - 368 K/MM3) 205 MPV (7.4 - 10.4 fl) 9.4 Neut % (Auto) (43 - 75 %) 68.9 Lymph % (Auto) (14 - 44 %) 16.4 [place] % (Auto) (4 - 13 %) 11.2 Eos % (Auto) (0 - 6 %) 2.4 Baso % (Auto) (0 - 2 %) 0.6 Neut # (Auto) (2.0 - 7.6 K/mm3) 6.10 Lymph # (Auto) (1.0 - 3.8 K/mm3) 1.45 [place] # (Auto) (0.1 - 0.8 K/mm3) 0.99 H Eos # (Auto) (0.0 - 0.2 K/mm3) 0.21 H Baso # (Auto) (0.0 - 0.2 K/mm3) 0.05 Immature Gran % (0.0 - 2.0 %) 0.5 Nucleated RBC % (0 - 1.0 %) 0.0 Nucleated RBCs # (Man) (0.0 - 0.1 K/mm3) 0.00 Laboratory Tests 12/03 414 Chemistry Magnesium (1.6 - 2.3 MG/DL) 2.0 Diagnosis, Assessment Plan Free Text DxA P Notes Free Text DxA P Notes: IMPRESSION: S/P Robotic assisted excision of right upper lo be lung nodule. Staple excision of blebs right upper lobe of lung. CAD-stable HTN HLP PVC's PAD AAA S/P EVAR COPD RECOMMEND: Continue current medical rx. Ambulate at 0910 RPT #:[id number] END OF REPORT 2018-12-02 09:50:00-00:00 [id number] [place] [address] PATIENT NAME: MOISÉS CANNON ADMIT JOHNNY E: 11/30/18 ACCOUNT NO: [id number] ROOM NO: [facility] AGE: 63 REPORT TYPE: ELECTROCARDIOGRAM SEX: F ADMITTING PHYSICIAN:Karen Vasquez MD ATTENDING PHYSICIAN:Chris Rivera MD Order: [id number] Test Reason : CAD Test Date/Time Stamp: MonDec 02 2018 09:50:44 Blood Pressure : / mmHG Vent. Rate : 077 BPM Atrial Rate : 077 BPM P-R Int : 122 ms QRS Dur : 070 ms QT Int : 360 ms P-R-T Axes : 076 034 046 degree s QTc Int : 407 ms Normal sinus rhythm Normal ECG When compared with ECG of 01-DEC-2018 08:07, Nonspecific T wave abnormality, improved in Ante rior leads Confirmed by ALEN HANSON ([id number]) on 12/03/2018 7:01:47 AM Referred By: Chris Rivera Confirmed by:ALEN BRADLEY at 0701 PATIENT NAME: MOISÉS CANNON 2018-12-02 08:04:00-00:00 [facility] ([facility]) Cardiology Progress Note REPORT#:[id number] REPORT STATUS: Signed DATE:12/02/18 TIME: 0804 PATIENT: MOISÉS CANNON UNIT #: [id number] ROOM/BED: [facility] : 55 AGE: 63 SEX: F ATTEND: Augustus Rivera MD ADM AUTHOR: Miguel Chawla MD * ALL edits or amendments must be made on the el [employer]/computer document * Subjective Chief Complaint: post-op CP, less SOB Patient reports: No: chest pain, palpitations, shortness of breat h. Objective General VS/I O: 24 hour I O ending at 0700: 12/02 0700 12/01 1900 Intake Total 300.00 1400.00 Output Total 455 780 Balance -155 620.00 Intake, IV 100.00 800.00 Intake, Oral 200 600 Output, Chest 5 Tube Drainage Output, Urine 450 780 Vital Signs: Date Time Temp Pulse Resp B/P B/P Pulse O2 O2 F low FiO2 Mean Ox Delivery Rate 12/02 0630 70 12 143/68 98 97 12/02 0600 126/76 95 12/02 0600 80 15 95 12/02 0547 81 18 141/86 109 90 12/02 0523 77 31 88 12/02 0500 73 23 145/74 100 93 12/02 0430 74 24 129/76 96 90 12/02 0415 91 12/02 0400 97.9 12/02 0400 76 23 126/64 86 12/02 0400 91 12/02 0330 73 25 141/66 94 95 12/02 0300 77 26 123/77 96 95 12/02 0230 74 25 107/74 86 95 12/02 0200 76 23 134/79 100 94 12/02 0130 75 25 136/84 104 96 12/02 0100 77 26 140/79 102 94 12/02 0030 75 25 130/70 95 95 12/02 0000 97.7 12/02 0000 81 27 138/71 98 94 12/01 2330 82 40 140/85 103 96 12/01 2300 84 31 135/79 100 96 12/01 2230 87 40 135/71 98 95 12/01 2200 92 33 122/65 87 96 12/01 2130 99 17 142/83 107 95 12/01 2100 105 17 133/76 100 95 12/01 2029 126 23 128/85 102 94 12/02 1999 97.8 12/02 1999 100 16 119/70 90 95 12/01 1932 81 15 124/81 95 97 03/ 1930 Nasal 2.720694 cannula 12/01 1927 97 Nasal 2.486723 28 cannula 12/01 1900 83 17 136/74 99 97 12/01 1800 84 21 125/71 93 98 12/01 1730 84 21 140/83 107 98 03 1700 96 42 125/70 92 94 12/01 1630 93 34 131/60 87 98 12/01 1600 98.5 12/01 1530 100 16 118/65 86 97 12/01 1500 102 41 132/63 90 97 12/01 1430 105 31 125/80 95 95 12/01 1400 92 38 144/67 96 98 12/01 1330 80 11 124/66 90 100 12/01 1300 83 13 120/68 88 12/01 1300 99 12/01 1230 93 36 128/76 95 97 12/01 1215 90 25 96 12/01 1200 98.5 12/01 1130 88 20 97 12/01 1115 87 16 98 12/01 1100 88 23 98 12/01 1045 91 24 98 12/01 1030 100 25 96 12/01 1015 101 35 95 12/01 1000 101 29 95 12/01 0945 93 25 95 12/01 0930 90 33 96 12/01 0915 89 22 97 12/01 0900 91 19 96 12/01 0845 96 34 96 12/01 0830 77 40 100 12/01 0823 96 Nasal 2.896380 28 cannula 12/01 0815 80 31 96 Status post: Robotic assisted excision of right upper lobe pancho ng nodule. Staple excision of blebs right upper lobe of lung. Physical Exam General appearance: alert, awake, oriented Head/Eyes: atraumatic, normocephalic, PERRLA ENT: moist mucosal membranes Neck: supple/no meningismus, no bruit/NL carotids, no JVD, no masses or swelling Cardiovascular: CV assessment: regular rate and rhythm, BP puls es = bilaterally, normal heart sounds, no murmur Respiratory: dullness to percussion, on oxygen, clear to auscultation, no distress Abdomen: soft, non-tender, no mass/organ omegaly, no pulsatile mass, no rebound Lower extremity: LE assessment: no edema, 2+ peripheral pulses Musculoskeletal: full range of motion Neuro/PRODUCTION PLANNER SCHEDULER: alert, oriented X 3, CN II-XII intact , no motor deficits Psychiatry: normal affect, normal judgment/insig ht, normal mood, no hallucinations Results Findings/Data: Laboratory Tests 12/027 Chemistry Sodium (137 - 145 MMOL/L) 139 Potassium (3.5 - 5.1 MMOL/L) 5.1 3.2 L Chloride (98 - 107 MMOL/L) 106 Carbon Dioxide (22 - 30 MMOL/L) 31 H BUN (7 - 17 MG/DL) 16 Creatinine (0.52 - 1.04 MG/DL) 0.70 Glomerular Filtr Rate > 60 Glucose (74 - 106 MG/DL) 97 Calcium (8.4 - 10.2 MG/DL) 8.4 Magnesium (1.6 - 2.3 MG/DL) 2.1 Laboratory Tests 12/02 0511 Hematology WBC (3.8 - 9.8 K/MM3) 10.6 H RBC (3.58 - 4.97 M/MM3) 3.63 Hgb (11.2 - 14.9 G/DL) 10.6 L Hct (33.2 - 43.5 %) 34.2 MCV (80.7 - 99.1 fL) 94 MCH (27.0 - 34.1 pg) 29.2 MCHC (32.2 - 35.7 %) 31.0 L RDW (12.1 - 15.2 %) 14.7 Plt Count (129 - 368 K/MM3) 225 MPV (7.4 - 10.4 fl) 9.7 Neut % (Auto) (43 - 75 %) 74.8 Lymph % (Auto) (14 - 44 %) 13.4 L [place] % (Auto) (4 - 13 %) 9.9 Eos % (Auto) (0 - 6 %) 0.9 Baso % (Auto) (0 - 2 %) 0.4 Neut # (Auto) (2.0 - 7.6 K/mm3) 7.91 H Lymph # (Auto) (1.0 - 3.8 K/mm3) 1.42 [place] # (Auto) (0.1 - 0.8 K/mm3) 1.05 H Eos # (Auto) (0.0 - 0.2 K/mm3) 0.09 Baso # (Auto) (0.0 - 0.2 K/mm3) 0.04 Immature Gran % (0.0 - 2.0 %) 0.6 Nucleated RBC % (0 - 1.0 %) 0.0 Nucleated RBCs # (Man) (0.0 - 0.1 K/mm3) 0.00 Laboratory Tests 12/02 0511 Chemistry Magnesium (1.6 - 2.3 MG/DL) 2.1 Radiology data: Recent Impressions: RADIOLOGY - XR CHEST 1V 12/02 0504 Report Impression - Status: SIGNED Entered: 12/02/2018 0644 IMPRESSION: No significant interval change since 12/01/2018. Impression By: David Ham MD Diagnosis, Assessment Plan Free Text DxA P Notes Free Text DxA P Notes: IMPRESSION: S/P Robotic assisted excision of right upper lo be lung nodule. Staple excision of blebs right upper lobe of lung. POST-OP CP CAD-stable HTN HLP PVC's PAD AAA S/P EVAR COPD RECOMMEND: Cardiac current medical rx. Ambulate at 1100 RPT #:[id number] END OF REPORT 2018-12-01 19:28:00-00:00 [facility] ([facility]) Adult General Consultation REPORT#:[id number] REPORT STATUS: Signed DATE:12/01/18 TIME: 1927 PATIENT: MOIÉSS CANNON UNIT #: [id number] ROOM[address]BED: [address] : 55 AGE: 63 SEX: F ATTEND: Meg Rivera MD ADM AUTHOR: Darcy Price MD * ALL edits or amendments must be made on the [employer]/computer document * History of Present Illness Reason for consult: General medical management Chief complaint: General medical management HPI: 63 y/o female with a history of COPD was under CVS service for mass of the right upper lobe, adhesions to the right lung and bulla of right upper lobe. Pt had a robotic assisted excisional staple biopsy of rig ht upper lobe lung nodule ( granuloma) and staple excision of right upper lobe blebs. Surgery completed at [facility] by Chris Rivera MD. Chest tub e was placed for drainage. Pt has been doing ok after surgery. vitals stable. she remai ns afebrile. she denies any complaint at this time. History - Adult longitudinal Past medical history: Reports: COPD, Hypertension, Abdominal aortic an eurysm, Dyslipidemia. Past surgical history: Reports: Spine surgery. Additional surgical history: AAA repair 1 year ago Smoking status for patients 13 years old or olde r: Former Smoker (45 year hx, Quit 8 yrs ago) Medications: Home Medications: Medication Dose/Rte/Freq Days Qty Entered Last Max Daily Dose Reviewed ATORVASTATIN (LIPITOR) 40 MG PO BEDTIME 6 11/30/18 Strength: 40 MG TAB 1445 1140 TIOTROPIUM (SPIRIVA) (Unknown Dose) INH 6 11/30/18 Strength: (Unknown RT EVENING 1446 1140 Strength) INHALER FLUTICASONE (Unknown Dose) INH 11/28/18 9 FUROATE/VILANTEROL RT EVENING 1458 1140 100/25 MCG/ACT (BREO ELLIPTA 100/25 MCG/ACT) Strength: (Unknown Strength) INHALER PANTOPRAZOLE DR 20 MG PO BEDTIME 11/28/1811/30 (PROTONIX) 1458 1140 Strength: 20 MG TAB. METOPROLOL TARTRATE 25 MG PO EVENING 11/28/18 0 11/30/18 (LOPRESSOR) 1459 1140 Strength: 25 MG TAB ZOLPIDEM (AMBIEN) 10 MG PO BEDTIME 11/28/18 Strength: 10 MG TAB 1459 1140 ESCITALOPRAM (LEXAPRO) 10 MG PO EVENING 9 11/30/18 Strength: 10 MG TAB 1500 1140 Current Hospital Medications: Anti-Infective Agents Sig/Rimma Start time Last Medication Dose Route Stop Time Status Admin Cefazolin Sodium 1,000 MG Q8H 12/01 0100 DC (ANCEF) IV 12/01 1701 1709 Sodium Chloride 10 ML (SODIUM CHLORIDE 0.9%) Autonomic Drugs Sig/Rimma Start time Last Medication Dose Route Stop Time Status Admin Ipratropium Freedom 0.5 MG RTQ6H 11/30 2100 AC 12/01 (ATROVENT U/D NEB 12/30 2101 1933 INHALATION) Albuterol Sulfate 2.5 MG RTQ6H 12/01 1999 AC (ALBUTEROL SULFATE) NEB 12/30 2000 193 Cardiovascular Drugs Sig/Rimma Start time Last Medication Dose Route Stop Time Status Admin Atorvastatin Calcium 40 MG BEDTIME 11/30 2100 A C (LIPITOR) PO 12/30 2100 Metoprolol Tartrate 25 MG BEDTIME 11/30 2100 AC (LOPRESSOR) PO 12/30 2100 Central Nervous System Agents Sig/Rimma Start time Last Medication Dose Route Stop Time Status Admin Citalopram 20 MG BEDTIME 11/30 2100 AC Hydrobromide PO 12/30 2100 (CeleXA) Zolpidem Tartrate 10 MG BEDTIME 11/30 2100 AC (AMBIEN (C-IV)) PO 12/30 2100 Ketorolac 30 MG Q6H 12/01 1999 DC 12/01 Tromethamine IV 12/01 1401 1418 (TORADOL) Acetaminophen 650 MG Q4H PRN PRN 11/30 1909 AC (TYLENOL) PO 12/30 1910 Acetaminophen 650 MG Q4H PRN PRN 11/30 1909 AC (TYLENOL) RECTAL 12/30 1910 Hydrocodone Bitart/ 1 TAB Q4H PRN PRN 11/30 191 0 AC Acetaminophen PO 12/30 1910 (NORCO 5/325 TABLET (C-II)) Hydrocodone Bitart/ 2 TAB Q4H PRN PRN 11/30 191 0 AC Acetaminophen PO 12/30 1910 (NORCO 5/325 TABLET (C-II)) Meperidine HCl 25 MG Q4H PRN PRN 11/30 1909 AC 11/30 (DEMEROL (C-II)) IM 12/30 1910 2244 Naloxone HCl 0.2 MG ASDIR PRN 11/30 1909 AC (NARCAN) IV 12/30 1910 Electrolytic, Caloric, And Durga Sig/Rimma Start time Last Medication Dose Route Stop Time Status Admin Potassium Chloride/ 1,000 ML .[id number] 11/30 191 0 DC 12/01 Dextrose/Sod Cl IV 12/30 1910 0802 (DEXTROSE 5%-1/2NS- KCL 20MEQ) Eye, Ear, Nose And Throat (Een Sig/Rimma Start time Last Medication Dose Route Stop Time Status Admin Budesonide 0.25 MG RTQ12H 12/01 1999 AC 12/01 (PULMICORT) NEB 12/30 Gastrointestinal Drugs Sig/Rimma Start time Last Medication Dose Route Stop Time Status Admin Docusate Sodium 100 MG BID 11/30 2099 AC 12/01 (COLACE) PO 12/30 2100 0804 Pantoprazole 20 MG BEDTIME 11/30 2099 AC (PROTONIX) PO 12/30 2100 Pantoprazole 40 MG DAILY 11/30 2099 AC 12/01 (PROTONIX) IV 12/30 2100 0803 Bisacodyl 5 MG DAILY PRN PRN 11/30 1909 AC (DULCOLAX) PO 12/30 1910 Bisacodyl 10 MG DAILY PRN PRN 11/30 1909 AC (BISACODYL SUPP) RECTAL 12/30 1910 Magnesium Hydroxide 30 ML DAILY PRN PRN 11/30 910 AC (MILK OF MAGNESIA) PO 12/30 1910 Ondansetron HCl 4 MG Q4H PRN PRN 11/30 1909 AC 11/30 (ZOFRAN) IV 12/30 Skin And Mucous Membrane Agent Sig/Rimma Start time Last Medication Dose Route Stop Time Status Admin Mupirocin 1 APPLIC BID 11/30 2355 AC 12/01 (BACTROBAN NASAL - NASAL 12/05 0901 0804 ADULT ICU) Allergies: Coded Allergies: No Known Allergies (11/28/18) Review of Systems Respiratory: Reports: DIAMOND (dyspnea on exertion), pleuritic pa in. Systems reviewed negative: allergy/immun, cardio vascular, constitutional, endocrine, ENT, eyes, GI, , heme, musculoskele south, neuro, psych, skin Objective VS/I O: Last Documented: Result Date Time Pulse Ox 97 12/01 1926 FiO2 28 12/01 1926 O2 Delivery Nasal cannula 12/01 1926 O2 Flow Rate 2.061910 12/01 1926 B/P 125/71 12/01 1800 B/P Mean 93 12/01 1800 Pulse 84 12/01 1800 Resp 21 12/01 1800 Temp 36.9 12/01 1600 24 hour I O ending at 0700: 12/01 0700 11/30 1900 Intake Total 880.00 1000.00 Output Total 400 Balance 480.00 1000.00 Intake, IV 880.00 1000.00 Output, Chest 30 Tube Drainage Output, Urine 370 General appearance: alert, awake, oriented Head/Eyes: atraumatic, clear cornea, EOMI, normo cephalic, normal conjunctiva/ sclera, normal eyelids/periorb., PERRLA ENT: normal dentition, normal ear left, normal e ar right, normal nose, normal pharynx, normal sinus Neck: full range of motion, non-tender, no bruit /NL carotids, no JVD, no lymphadenopathy, no masses or swelling, normal t hyroid, supple/no meningismus Cardiovascular: normal capillary refill, regular rate rhythm Respiratory: (right chest tube present), clear to auscultation, no distress, no tenderness Abdomen: soft, non-tender, normal abdomi nal aorta, no guarding, no rebound, no distention, no mass/organomegaly, no pulsatile m ass, no hernia Genitourinary: not indicated Extremities: moves all, no edema, normal capilla ry refill, normal range of motion, normal sensory, normal motor function Musculoskeletal: full range of motion, normal in spection Neuro/PRODUCTION PLANNER SCHEDULER: alert, oriented X 3 Results Findings/Data: Laboratory Tests: 12/01 0430 Chemistry Sodium (137 - 145 MMOL/L) 137 Potassium (3.5 - 5.1 MMOL/L) 4.1 Chloride (98 - 107 MMOL/L) 104 Carbon Dioxide (22 - 30 MMOL/L) 25 BUN (7 - 17 MG/DL) 16 Creatinine (0.52 - 1.04 MG/DL) 0.60 Glomerular Filtr Rate > 60 Glucose (74 - 106 MG/DL) 143 H Calcium (8.4 - 10.2 MG/DL) 8.4 Magnesium (1.6 - 2.3 MG/DL) 1.9 Hematology WBC (3.8 - 9.8 K/MM3) 12.4 H RBC (3.58 - 4.97 M/MM3) 4.06 Hgb (11.2 - 14.9 G/DL) 11.6 Hct (33.2 - 43.5 %) 38.1 MCV (80.7 - 99.1 fL) 94 MCH (27.0 - 34.1 pg) 28.6 MCHC (32.2 - 35.7 %) 30.4 L RDW (12.1 - 15.2 %) 14.3 Plt Count (129 - 368 K/MM3) 212 MPV (7.4 - 10.4 fl) 9.9 Neut % (Auto) (43 - 75 %) 92.7 H Lymph % (Auto) (14 - 44 %) 3.1 L [place] % (Auto) (4 - 13 %) 3.6 L Eos % (Auto) (0 - 6 %) 0.0 Baso % (Auto) (0 - 2 %) 0.1 Neut # (Auto) (2.0 - 7.6 K/mm3) 11.50 H Lymph # (Auto) (1.0 - 3.8 K/mm3) 0.38 L [place] # (Auto) (0.1 - 0.8 K/mm3) 0.44 Eos # (Auto) (0.0 - 0.2 K/mm3) 0.00 Baso # (Auto) (0.0 - 0.2 K/mm3) 0.01 Immature Gran % (0.0 - 2.0 %) 0.5 Nucleated RBC % (0 - 1.0 %) 0.0 Nucleated RBCs # (Man) (0.0 - 0.1 K/mm3) 0.00 Recent Impressions: RADIOLOGY - XR CHEST 1V 12/01 522 Report Impression - Status: SIGNED Entered: 12/01/2018629 Impression: Stable chest/no change. Impression By: Ajay Duran M.D. Treatment Prophylaxis Treatment Prophylaxis William documentation: The data below has been impo rted from nursing documentation. Any exceptions have been noted below under Provider comments. _ Nursing Documentation Date nataliia inserted: 11/30/18 Date william discontinued: 12/01/18 _ Provider comments: [] Diagnosis, Assessment Plan Free Text DxA P Notes Free Text DxA P Notes: Assesment: -RUL nodule/blebs s/p excision -Dyspnea on exertion Plan: -Continue oxygen as needed -cont nebs , pulmicort -Monitor chest tube output; Management per CT barth rgeon -Continue home meds as appropriate -pain control -DVT prophylaxis - SCD Electronically Signed by Darcy Price MD on 9 at 3 RPT #:[id number] END OF REPORT 2018-12-01 15:14:00-00:00 [facility] ([facility] Cardiology Progress Note REPORT#:[id number] REPORT STATUS: Signed DATE:12/01/18 TIME: 1514 PATIENT: MOISÉS CANNON UNIT #: [id number] ROOM/BED: [address] : [address] AGE: 63 SEX: F ATTEND: Augustus Rivera MD ADM AUTHOR: Alen Hanson MD * ALL edits or amendments must be made on the Digital Envoy/computer document * Subjective Chief Complaint: post-op CP, less SOB Patient reports: Yes: chest pain, shortness of breath. No: nausea , palpitations, swelling. Nursing reports: No: complaints. Objective General VS/I O: 24 hour I O ending at 0700: 12/01 0700 11/30 1900 Intake Total 880.00 1000.00 Output Total 400 Balance 480.00 1000.00 Intake, IV 880.00 1000.00 Output, Chest 30 Tube Drainage Output, Urine 370 Vital Signs: Date Time Temp Pulse Resp B/P B/P Pulse O2 O2 Fl ow FiO2 Mean Ox Delivery Rate 12/01 1400 92 38 144/67 96 98 12/01 1330 80 11 124/66 90 100 12/01 1300 83 13 120/68 88 12/01 1300 99 12/01 1230 93 36 128/76 95 97 12/01 1215 90 25 96 12/01 1200 98.5 12/01 1130 88 20 97 03/ 1115 87 16 98 03/23 1100 88 23 98 03/23 1045 91 24 98 03/ 1030 100 25 96 03/ 1015 101 35 95 03/ 1000 101 29 95 03/ 0945 93 25 95 03/ 0930 90 33 96 03/ 0915 89 22 97 03/ 0900 91 19 96 03/ 0845 96 34 96 03/ 0830 77 40 100 03/ 0823 96 Nasal 2.925367 28 cannula / 0815 80 31 96 03/ 0800 97.5 03/ 0800 Nasal 2.997640 cannula / 0800 72 12 96 03/ 0745 79 33 03/ 0730 74 25 95 03/ 0715 76 27 95 03/ 0700 77 28 97 03/ 0630 77 21 94 03/ 0615 78 21 96 03/ 0600 79 17 96 03/ 0545 81 24 96 03/ 0530 81 18 03/ 0500 77 21 97 03/ 0445 76 18 96 03/ 0430 78 17 95 03/ 0415 77 21 97 03/ 0400 97.4 03/ 0400 76 20 96 03/ 0345 77 15 96 03/ 0330 77 16 95 03/ 0315 86 23 95 03/ 0300 77 95 03/ 0245 78 11 96 03/ 0230 80 11 95 03/ 0215 82 15 95 03/ 0200 80 17 96 03/ 0145 87 18 03/ 0130 78 10 94 03/ 0115 77 11 94 03/ 0100 78 10 03/ 0045 80 11 94 03/ 0032 80 10 03/ 0017 79 03/ 0002 77 10 95 03/ 0000 97.6 11/30 2347 69 99 11/30 2332 70 11/30 2317 73 11/30 2302 72 10 95 11/30 2247 80 16 11/30 2232 75 12 95 11/30 2217 77 11 95 11/30 2202 76 11 95 11/30 2147 79 10 11/30 2132 82 13 11/30 2117 85 15 11/30 2050 96 Non 15.277616 100 rebreather mask 11/30 2046 81 14 97 12/01 2031 84 13 97 03/22 2002 87 14 96 12/01 1999 97.6 12/01 1999 Non 15.016680 rebreather mask Medications: Active Meds + DC'd Last 24 Hrs Cefazolin Sodium 1,000 MG Q8H IV Sodium Chloride 10 ML Mupirocin 1 APPLIC BID NASAL Atorvastatin Calcium 40 MG BEDTIME PO Citalopram Hydrobromide 20 MG BEDTIME PO Docusate Sodium 100 MG BID PO Ipratropium Freedom 0.5 MG RTQ6H NEB Metoprolol Tartrate 25 MG BEDTIME PO Pantoprazole 20 MG BEDTIME PO Pantoprazole 40 MG DAILY IV Zolpidem Tartrate 10 MG BEDTIME PO Albuterol Sulfate 2.5 MG RTQ6H NEB Budesonide 0.25 MG RTQ12H NEB Ketorolac Tromethamine 30 MG Q6H IV (DC) Acetaminophen 650 MG Q4H PRN PRN PO Acetaminophen 650 MG Q4H PRN PRN RECTAL Bisacodyl 5 MG DAILY PRN PRN PO Bisacodyl 10 MG DAILY PRN PRN RECTAL Hydrocodone Bitart/Acetaminophen 1 TAB Q4H PRN P RN PO Hydrocodone Bitart/Acetaminophen 2 TAB Q4H PRN P RN PO Magnesium Hydroxide 30 ML DAILY PRN PRN PO Meperidine HCl 25 MG Q4H PRN PRN IM Naloxone HCl 0.2 MG ASDIR PRN IV Ondansetron HCl 4 MG Q4H PRN PRN IV Potassium Chloride/Dextrose/Sod Cl 1,000 ML .Q12 H30M IV Ondansetron HCl 0 .STK-MED ONE .ROUTE (DC) Sugammadex Sodium 400 MG .STK-MED ONE Z (DC) Famotidine 0 .STK-MED ONE .ROUTE (DC) Dexamethasone Sodium Phosphate 0 .STK-MED ONE .R OUTE (DC) Cefazolin Sodium 0 .STK-MED ONE .ROUTE (DC) Lidocaine HCl 0 .STK-MED ONE .ROUTE (DC) Fentanyl Citrate 0 .STK-MED ONE .ROUTE (DC) Propofol 0 .STK-MED ONE .ROUTE (DC) Midazolam HCl 0 .STK-MED ONE .ROUTE (DC) Midazolam HCl 0 .STK-MED ONE .ROUTE (DC) Post-op: day 1 Status post: Robotic assisted excision of right upper lobe pancho ng nodule. Staple excision of blebs right upper lobe of lung. Physical Exam General appearance: alert, awake, oriented, no a cute distress, pleasant, conversational, mental status normal, no respira tory distress Head/Eyes: atraumatic, normocephalic, PERRLA ENT: moist mucosal membranes Neck: supple/no meningismus, no bruit/NL carotids, no JVD, no masses or swelling Cardiovascular: CV assessment: regular rate and rhythm, BP puls es = bilaterally, normal heart sounds, no murmur Respiratory: dullness to percussion, on oxygen, clear to auscultation, no distress Abdomen: soft, non-tender, no mass/organ omegaly, no pulsatile mass, no rebound Lower extremity: LE assessment: no edema, 2+ peripheral pulses Musculoskeletal: full range of motion Neuro/PRODUCTION PLANNER SCHEDULER: alert, oriented X 3, CN II-XII intact , no motor deficits Psychiatry: normal affect, normal judgment/insig ht, normal mood, no hallucinations Results Findings/Data: Laboratory Tests 11/30 1942 Blood Gas Puncture Site AL ABG pH (7.35 - 7.45 mmHg) 7.22 *L ABG pCO2 (35.0 - 45.0 mmHg) 48.2 H ABG pO2 (80.0 - 100.0 mmol/L) 96.3 ABG HCO3 (20.0 - 26.0 mmol/L) 19.2 L ABG O2 Saturation (95.0 - 100.0 %) 95.9 ABG Base Excess (-3.0 - 3.0 mmol/L) -8.7 L Nadja Test (CHECK) NA Temperature (37 C) 37.0 O2 Delivery Device NRBMASK Liter Flow (L/MIN) 15 FiO2 (%) 100 Laboratory Tests 12/01 Chemistry Sodium (137 - 145 MMOL/L) 137 138 Potassium (3.5 - 5.1 MMOL/L) 4.1 4.5 Chloride (98 - 107 MMOL/L) 104 105 Carbon Dioxide (22 - 30 MMOL/L) 25 26 Anion Gap (14 - 24 MMOL/L) 12 L BUN (7 - 17 MG/DL) 16 14 Creatinine (0.52 - 1.04 MG/DL) 0.60 0.50 L Glomerular Filtr Rate > 60 > 60 Glucose (74 - 106 MG/DL) 143 H 147 H Calcium (8.4 - 10.2 MG/DL) 8.4 8.8 Magnesium (1.6 - 2.3 MG/DL) 1.9 1.9 Laboratory Tests 12/01 11/30 0430 1945 Hematology WBC (3.8 - 9.8 K/MM3) 12.4 H 12.5 H RBC (3.58 - 4.97 M/MM3) 4.06 4.30 Hgb (11.2 - 14.9 G/DL) 11.6 12.5 Hct (33.2 - 43.5 %) 38.1 39.7 MCV (80.7 - 99.1 fL) 94 92 MCH (27.0 - 34.1 pg) 28.6 29.1 MCHC (32.2 - 35.7 %) 30.4 L 31.5 L RDW (12.1 - 15.2 %) 14.3 14.2 Plt Count (129 - 368 K/MM3) 212 246 MPV (7.4 - 10.4 fl) 9.9 9.6 Neut % (Auto) (43 - 75 %) 92.7 H 82.7 H Lymph % (Auto) (14 - 44 %) 3.1 L 13.6 L [place] % (Auto) (4 - 13 %) 3.6 L 1.8 L Eos % (Auto) (0 - 6 %) 0.0 0.4 Baso % (Auto) (0 - 2 %) 0.1 0.5 Neut # (Auto) (2.0 - 7.6 K/mm3) 11.50 H 10.37 H Lymph # (Auto) (1.0 - 3.8 K/mm3) 0.38 L 1.70 [place] # (Auto) (0.1 - 0.8 K/mm3) 0.44 0.22 Eos # (Auto) (0.0 - 0.2 K/mm3) 0.00 0.05 Baso # (Auto) (0.0 - 0.2 K/mm3) 0.01 0.06 Immature Gran % (0.0 - 2.0 %) 0.5 1.0 Nucleated RBC % (0 - 1.0 %) 0.0 0.0 Nucleated RBCs # (Man) (0.0 - 0.1 K/mm3) 0.00 0 .00 Laboratory Tests 12/01 Chemistry Magnesium (1.6 - 2.3 MG/DL) 1.9 1.9 Radiology data: Recent Impressions: RADIOLOGY - XR CHEST 1V 11/30 1920 Report Impression - Status: SIGNED Entered: 11/30/20181940 IMPRESSION: Mild cardiomegaly with mild congestive changes b ilaterally. No pneumothorax is identified. LOCATION: B2 Impression By: Dereck Campa MD RADIOLOGY - XR CHEST 1V 12/01 522 Report Impression - Status: SIGNED Entered: 12/01/2018629 Impression: Stable chest/no change. Impression By: Ajay - Shola Duran M.D. Results: labs reviewed, vital signs stable, EKG personally reviewed, rhythm personally rev'd, x-ray personally reviewed, cur rent med profile rev'd EKG Interpretation: normal sinus rhythm Telemetry Interpretation: SR Treatment Prophylaxis Treatment Prophylaxis William documentation: The data below has been impo rted from nursing documentation. Any exceptions have been noted below under Provider comments. _ Nursing Documentation Date william inserted: 11/30/18 Date william discontinued: 12/01/18 _ Provider comments: [] Diagnosis, Assessment Plan Problem List/A P: 1. Abdominal aortic aneurysm (AAA) >[address] 2. COPD without exacerbation 3. HLD (hyperlipidemia) 4. HTN (hypertension), benign Consultants: cardiovascular surgery Code status: full code Plan discussed with: patient, consultants, donaldo nt care team, nurse Free Text DxA P Notes Free Text DxA P Notes: IMPRESSION: S/P Robotic assisted excision of right upper lo be lung nodule. Staple excision of blebs right upper lobe of lung. POST-OP CP CAD-stable HTN HLP PVC's PAD AAA S/P EVAR COPD RECOMMEND: Cardiac stable Continue current meds Ambulation Electronically Signed by Alen Hanson MD on 0 12/01/18 at 1521 RPT #:[id number] END OF REPORT 2018-12-01 08:07:00-00:00 [id number] [place] [id number] PATIENT NAME: MOISÉS CANNON ADMIT JOHNNY E: 11/30/18 ACCOUNT NO: [id number] ROOM NO: Z.SI04 AGE: 63 REPORT TYPE: ELECTROCARDIOGRAM SEX: F ADMITTING PHYSICIAN:Karen Vasquez MD ATTENDING PHYSICIAN:Chris Rivera MD Order: [id number] Test Reason : CAD Test Date/Time Stamp: MonDec 01 2018 08:07:42 Blood Pressure : / mmHG Vent. Rate : 068 BPM Atrial Rate : 068 BPM P-R Int : 126 ms QRS Dur : 070 ms QT Int : 382 ms P-R-T Axes : 068 023 052 degree s QTc Int : 406 ms Normal sinus rhythm Nonspecific ST and T wave abnormality Abnormal ECG When compared with ECG of 30-NOV-2018 19:27, QT has shortened Confirmed by ALEN HANSON ([id number]) on 12/01/2018 8:14:56 AM Referred By: Chris Rivera Confirmed by:ALEN BRADLEY at 0815 PATIENT NAME: MOISÉS CANNON 2018-11-30 19:27:00-00:00 [id number] [address] PATIENT NAME: MOISÉS CANNON ADMIT JOHNNY E: 11/30/18 ACCOUNT NO: [id number] ROOM NO: Z.SI04 AGE: 63 REPORT TYPE: ELECTROCARDIOGRAM SEX: F ADMITTING PHYSICIAN:Karen Vasquez MD ATTENDING PHYSICIAN:Chris Rivera MD Order: [id number] Test Reason : post op Test Date/Time Stamp: MonNov 30 2018 19:27:24 Blood Pressure : / mmHG Vent. Rate : 086 BPM Atrial Rate : 086 BPM P-R Int : 098 ms QRS Dur : 076 ms QT Int : 404 ms P-R-T Axes : 078 040 059 degree s QTc Int : 483 ms Sinus rhythm with short ID Nonspecific ST and T wave abnormality Prolonged QT Abnormal ECG No previous ECGs available Confirmed by ALEN HANSON ([id number]) on 12/01/2018 8:15:18 AM Referred By: Chris Rivera Confirmed by:ALEN BRADLEY at 0815 PATIENT NAME: MOISÉS CANNON 2018-11-30 19:25:00-00:00 [id number] [place] [address] PATIENT NAME: MOISÉS CANNON ADMIT JOHNNY E: 11/30/18 ACCOUNT NO: [id number] ROOM NO: Z.SI04 AGE: 63 REPORT TYPE: OPERATIVE REPORT SEX: F ADMITTING PHYSICIAN:Karen Vasquez MD ATTENDING PHYSICIAN:Chris Rivera MD OPERATION DATE: 11/30/2018 PREOPERATIVE DIAGNOSES: Mass of the right upper lobe, adhesions to the right lung, bulla of right upper lobe. 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 PROCEDURE: Robot assisted excisional staple biop sy of right upper lobe lung lesion, lysis of right pleur al adhesions and staple excision of right upper lobe bulla. SURGEON: Chris Rivera MD AIRLINE ATTENDANT: Mickie Coats PA-C ANESTHESIA: General. COMPLICATIONS: None. DISPOSITION: The patient to the surgical ICU in stable condition. PROCEDURE IN DETAIL: On 11/30/2018, the patient was brought to the operating room, placed on the operating table in supine po sition, prepped and draped in usual fashion. Following introduction of satisfa ctory general anesthesia, placement of appropriate monitoring line s, William catheter, hips, shoulders and elbows were padded in usual fashion. The monitor lines placed per anesthesia. The patient was then prepped and draped in usual fashion. The patient was placed in right lateral thoracotomy position, pr epped and draped in usual fashion. Small port incisions were made with a 1 5 blade and the ports were placed. We used the Exparel for posterio r rib blocks. We then placed the robot camera. We then placed the additional in struments and then we went on console. We incised dense pleural adh esions at the base of the lung and also medially to free up the lung completely, especially the righ t lower lobe. We excised the lysis of right pleural adhesions. We then dissec aleksandra and incised the inferior pulmonary ligament and disse cted the hilum medially. Following that we went off the lung, we took some of the adhesions of the m ajor fissure. We then identified what appeared to be a large 1.5 to al most 2 cm nodule in the right upper lobe beneath the pleura. This was excised and sent out to pathology, thought to be a burned out g ranuloma on frozen section, did not appear to be at a lung tumor. We obtained he mostasis, then used a staple, did a staple excision of the right upper lobe bullae, which along the margin of the lung along the PATIENT NAME: MOISÉS CANNON major fissure. Lesion was sent out for pathology for permanent section. Following that, we irrigated with antibi otic saline solution. Progel placed on the staple lines. Wounds were irrigated with ant ibiotic saline solution. All instruments were removed. Ports were removed. A 24-Malay Crabtree chest tube was placed and secured with 0 silks. The ports w ere removed. All surgical sites were closed after infi ltrating Exparel for pain control and all the wounds were closed in layers in the usual fashi on, dressings applied, and the patient to the surgical ICU in stable condition. Dictated By: Chris Rivera MD WT: OP:IVETT/SOPHIA/JANNIE Conf#: [id number]/DID#: [id number] cc: Alen Hanson MD Authenticated by Chris Rivera MD On 019 07:39:09 AM at 0739 PATIENT NAME: MOISÉS CANNON 2018-11-30 19:18:00-00:00 [facility] ([facility] Brief Op Note REPORT#:[id number] REPORT STATUS: Signed DATE:11/30/18 TIME: 1917 PATIENT: MOISÉS CANNON UNIT #: [id number] ROOM/BED: : 55 AGE: 63 SEX: F ATTEND: uAgustus Rivera MD ADM AUTHOR: Chris Rivera MD * ALL edits or amendments must be made on the Digital Envoy/computer document * Op/Inv Proc Note - Brief Pre-procedure diagnosis: Right upper lobe lung nodule Blebs right upper lobe Post-procedure diagnosis: same as pre procedure dx Procedures performed: Robotic assisted excision of right upper lobe pancho ng nodule. Staple excision of blebs right upper lobe of lung. Primary Surgeon: Chris Rivera Service Line Bus Cleaner(s): Mickie Coats PA-c Anesthesiologist: Dr. Valverde Anesthesia: general anesthesia Findings: See detailed op report Complications: none Estimated blood loss in ml's: 15cc Specimens removed/altered: Right upper lobe lung nodule Tube(s): Chest tube Disposition: ICU (in a stable condition) at 1922 RPT #:[id number] END OF REPORT 2018-11-28 13:49:00-00:00 [id number] [id number] [place] [address] PATIENT NAME: MOISÉS CANNON ADMIT JOHNNY E: ACCOUNT NO: [id number] ROOM NO: AGE: 63 REPORT TYPE: ELECTROCARDIOGRAM SEX: F ADMITTING PHYSICIAN:Chris Rivera MD ATTENDING PHYSICIAN:Chris Rivera MD Order: [id number] Test Reason : PRE-OP Test Date/Time Stamp: MonNov 28 2018 13:49:54 Blood Pressure : / mmHG Vent. Rate : 070 BPM Atrial Rate : 070 BPM P-R Int : 126 ms QRS Dur : 068 ms QT Int : 396 ms P-R-T Axes : 048 053 068 degree s QTc Int : 427 ms Normal sinus rhythm Nonspecific ST and T wave abnormality Abnormal ECG When compared with ECG of 24-DEC-2015 06:59, No significant change was found Confirmed by BASIM OLMEDO MD ([id number]) on 11/29/2018 7:27:41 AM Referred By: Chris Rivera Confirmed by:BASIM RANGEL MD Electronically Signed by Basim Olmedo MD on 11/10 09/29 at 0727 PATIENT NAME: MOISSÉ CANNON 2018-09-17 13:04:03-00:00 JYOTI LANDIS [facility] CONSULTATION MOISÉS CANNON FACILITY: [facility] Billing #: [id number] Room: [address] [place] [address] MR #: [id number] : 1955 DATE OF ADMISSION: 09/14/2018 DATE OF CONSULTATION: 09/17/2018 REQUESTING PHYSICIAN: WELT SEWER: Jyoti Landis MD HISTORY OF PRESENT ILLNESS: Ms. Griselda garrido is a 63-year-old female who was admitted to [facility] with a perioperative spinal tear. She had a CAT scan done as a part of this workup which basically demonstrated that this patient had an increase in size of her abdominal aortic aneurysm from 4.2 to 4.5 [address] previous [address] which was basically in 2017. She had an endovascular aneur ysm repair 3 years ago in the [facility]. It is unclear to me who did her surgery. Currently, she is not complaining o f any symptoms because of this; however, she does have pain in her lower back which is more attributed to her spinal problems. PAST MEDICAL HISTORY: Significant for COPD, hype rtension. PAST SURGICAL HISTORY: Significant for AAA repai r with an endograft along with a lumbar fusion. MEDICATIONS: Please see attached medication [address]. ALLERGIES: NO KNOWN DRUG ALLERGIES. PHYSICAL EXAMINATION: VITAL SIGNS: The patient is afebrile with vital signs stable. HEAD AND NECK: Pupils equally round, react to li ght and accommodation. Extraocular movements intact. CARDIOVASCULAR: Regular rate and rhythm. PULMONARY: Clear to auscultation. ABDOMEN: Soft, nondistended, nontender. EXTREMITIES: No clubbing, cyanosis, edema. IMAGING STUDIES: Her CT scan findings basically demonstrate that this patient is status post AAA repair with a type 2 endoleak. It appears that this endoleak could be coming from a lumbar artery, and there is a slight increase in the interval size of the sac of the aneurysm from 4.2 to 4.7. IMPRESSION: Type 2 endoleak abdominal aortic ane urysm, status post endovascular aneurysm repair with interval enlargement of the sac. RECOMMENDATION: This patient does need to have c oil embolization of this endoleak. This can be done as an outpatient. The timing of this is debatable. Thi s could be done either prior to the rehab or actually we co uld also have her complete her rehab and then have her undergo this procedure. This procedure would be a minor outpatient-type procedure. I will attempt to coordinate this with her primary team. BERTO/FACUNDO /[id number] 2018-09-16 09:22:27-00:00 RONALD VARMA [facility] CONSULTATION DAVIS MOISÉS FACILITY: [facility] Billing #: [id number] Room: [address] [place] [address] MR #: [id number] : 1955 DATE OF ADMISSION: 09/14/2018 DATE OF CONSULTATION: 09/15/2018 REQUESTING PHYSICIAN: Amanda Irving WELT SEWER: Ronald Varma MD REASON FOR CONSULTATION: Evaluate for abdominal aortic aneurysm. HISTORY OF PRESENT ILLNESS: This is a 63-year-ol d female patient who a few days back had back surgery for back pain and she underwent L2-L3 TLIF with revision of L3-L4 and L4-S1 PSF. This was initially on 09/10/2018. She was admitted back for weakness of the legs, low back pain and the reason why we were consulted is she has a history of abdomi nal aortic aneurysm repair about 3 years back at [facility] and at that time CTA of the abdomen and pelvis showed an ane urysm which was 4.2 cm to 4.5 cm, slight increase with a new typ e II endoleak from the right lumbar artery with contrast blush in the right posterior inferior aspect of the aneurysm sac. I do not have access to the CT angiogram myself as the CT scan was done at another site. In addition, per report, she has a nterior right upper lobe 1.7 cm pulmonary nodule which has not yet been investigated. Currently she has no abdominal odilia n, feels better, no fever or chills, no vomiting or leg p ain. PAST MEDICAL HISTORY: COPD, hypertension. PAST SURGICAL HISTORY: Abdominal aortic aneurys m repair, lumbar fusion. ALLERGIES: NO KNOWN DRUG ALLERGIES MEDICATIONS: Reviewed. SOCIAL HISTORY: She is a former smoker, quit 9 y ears back. REVIEW OF SYSTEMS: Apart from some back pain, weakness and shortnes s of breath, noncontributory. PHYSICAL EXAMINATION: GENERAL: The patient is a pleasant female in no apparent distress. She does not complain of anything righ t now. VITAL SIGNS: She is afebrile. Heart rate is 86, blood pressure 125/64, saturating 95%. HEAD/NECK: PERRLA. Neck supple, no JVD. HEART: S1, S2 normal. No murmurs, rubs or gallop s. ABDOMEN: Soft, nontender. MUSCULOSKELETAL: Decreased range of motion. Stre ngth is 5/5 bilateral lower extremities. Dressings on the ba ck present. LABORATORY DATA: White cell count 9.3, hemoglobi n 8.9, hematocrit 29.2, platelets 303. Sodium 141, pota ssium 4.0, chloride 105, CO2 32, BUN 14, creatinine 0.6. BN P is up at 418. ASSESSMENT AND PLAN: Abdominal aortic aneurysm r epaired 3 years back with endovascular approach with a sma ll endoleak. Usually endoleaks type II are not that critical in nature. However, per report, there is a small increase i n the size of the aneurysm from 4.2 to 4.5 cm. I need to revie w the CT angiogram myself since I do not have access to t he CT angiogram. We shall follow her up as outpatient and get a new CT angiogram done at that ti me. I have given my card and asked her to follow up with me in my office. Currently she is stable. Thank you very much for asking me to see this pa normant of yours. UT/MODL /[id number] 2018-09-15 04:24:32-00:00 DANIEL HAM [facility] CONSULTATION MOISÉS CANNON FACILITY: [facility] Billing #: [id number] Room: [address] [place] [address] MR #: [id number] : 1955 DATE OF ADMISSION: 09/14/2018 DATE OF CONSULTATION: 09/14/2018 REQUESTING PHYSICIAN: WELT SEWER: Daniel Ham MD Orthopedic Surgery Consultation REASON FOR CONSULTATION: Perioperative low back pain. HISTORY OF PRESENT ILLNESS: Ms. Cannon is a [age]-year-old female who is status post an L2-L3 transforamina l lumbar interbody fusion with removal of hardware and ex ploration of fusion at L3-L4 as well as L4-S1, with revision of L3-L4, L4-S1 posterolateral fusion on 09/10/2018. She was dis charged to home from the hospital on 09/13/2018. However, s he was admitted earlier this morning at the emergency r oom at [facility] and diagnosed with dyspnea, hypoxia, endoleak of AAA, COPD with acute exacer bation, solitary pulmonary nodule, hypokalemia, and anem ia. She was transferred to [facility] fo r further care. I evaluated Ms. Cannon in her hospital room w ith her granddaughter present. Currently she reports odilia n that is constant in her low back. However, she denies an y radiating pain to her lower extremities. She also denies a ny numbness or tingling. She has not had any bowel movements, b ut does report positive flatus. William is in place. She currentl y denies any chest pain or any shortness of breath. PAST MEDICAL HISTORY: 1. Hypertension. 2. COPD. PAST SURGICAL HISTORY: 1. Status post bladder lift early . 2. Status post C5-C6 non-instrument ACDF by Dr. Hameed in the . 3. Right shoulder surgery x2 in the . 4. L3-L4, L4-S1 transforaminal lumbar fusion on April 06, 2011. 5. AAA repair in 2014. 6. L2-L3 TLIF with removal of hardware and explo ration of fusion L3-L4 and L4-S1 with revision L3-L4, L4-S 1 posterolateral lumbar fusion on September 10 8. ALLERGIES: NO KNOWN DRUG ALLERGIES. MEDICATIONS: Please see current hospital list. 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 She quit smoking in 2010. She drinks alcohol socially. PHYSICAL EXAMINATION: GENERAL: Ms. Cannon is in no acute distress. She is seen in consultation with her granddaughter in her spital room. She was seen in the right lateral decubitus position . She turned supine for her physical exam. VITAL SIGNS: T-max 99.7, vital signs are stable. MUSCULOSKELETAL: Palpation of her lumbar spine d oes not produce any pain. However, she does have pain wh en I removed her postoperative dressing. Her Steri-Strips are in place. There is no erythema or fluctuance. There was no tenderness to palpation of her lumbar spine. There was no drai nage. NEUROLOGIC: Examination of her lower extremities demonstrated 5/5 motor strength in the lower extremities. Lig ht tough is intact in both lower extremities. Deep tendon re flexes were absent at both L4 and S1 bilaterally. LABORATORY AND IMAGING DATA: CTA of the chest, a bdomen and pelvis from earlier today demonstrated the follo wing findings: 1. No aortic dissection. 2. Anterior upper lobe 1.7 cm pulmonary nodule. 3. AAA status post EVAR with the aneurysmal sac mildly increased in size since 05/22/2017 from 4.2 cm t o 4.5 cm with a new type II endoleak from a right lumbar artery with contrast blush in the right posterior inferior aspect of the aneurysmal sac. 4. Status post lumbar fusion from L3 to S1 with questionable minimally displaced fracture of the L3 superior endplate. 5. Mild to moderate nonspecific right anterior a bdominal wall inflammation/edema. Pertinent labs: White count 8.1, hemoglobin 9.3, hematocrit 28.7. Hypokalemia at 3.2. ASSESSMENT AND PLAN: This is a 63-year-old lady postoperative day #4, status post L2-L3 TLIF with revision L3- L4, L4-S1 posterolateral spinal fusion. She only has 4 lum bar vertebral bodies. Her motor exam is intact. She is stable from the Spine perspective. I did change her postoperativ e dressing today. There are no signs of infection. She shou ld continue with her postoperative restrictions of no liftin g greater than 10 pounds and wearing her TLSO brace when out of bed. She should be out of bed with Physical Therapy as to lerated. Leave the current dressing in place that was changed e arlier today. She most likely will require inpatient rehab per Physical Therapy assessment in the hospital today. I woul d like to see her back in my office after she is discharged fr om inpatient rehab. Thank you for the consult. Please reconsult as n eeded. With regard to questionable minimally displaced superior endplate fracture at L3, she is status post a pancho mbar fusion. There are no motor deficits at this time. We kristopher l follow this possible finding conservatively at this point in time. BETH/MODL /[id number]"
[2023-02-25] MEDS ORDERED: ONDANSETRON 4 MG/2 ML VIAL ONE (17:16)
[2023-02-25] MEDS ORDERED: NA CHLORIDE 0.9% 1,000 ML ONE ×2 (17:17→18:14)
[2023-02-25] MEDS ORDERED: FAMOTIDINE 20 MG/2 ML VIAL IV ONE (17:17)
[2023-02-25 17:18] LABS: Absolute Lymphocytes (CBC) 0.4 K/uL (0.7-4.9); Hematocrit 39.1 % (36.0-45.0); Lymphocytes % 3.9 % (15.3-44.8); MCV 92.5 fL (80-100); MPV 7.4 fL (7.6-11.3); RBC Red Blood Cell Count 4.23 M/uL (3.86-4.86)
--- NOTE | 2023-02-25 17:25 | RAD REPORT ---
EXAM DESCRIPTION: RAD - Chest Single View - 02/25/2023 5:18 pm CLINICAL HISTORY: nausea/vomiting Chest pain. COMPARISON: Chest Single View dated 05/25/2022; Chest Single View dated 05/24/2022; Chest Single View dated 04/02/2020; Chest Single View dated 11/30/2019 FINDINGS: Portable technique limits examination quality. Moderate patchy airspace opacity is seen in the left lung representing infiltrate/pneumonia. Small ri ght pleural effusion is noted. The heart is normal in size. No displaced fractures. IMPRESSION: Moderate left-sided pneumonia.
[2023-02-25 17:26] LABS: Protime INR 1.1
[2023-02-25 17:41] LABS: Albumin 2.5 g/dL (3.4-5.0); Bilirubin Total 0.8 mg/dL (0.2-1.0); Potassium 2.8 mEq/L (3.5-5.1); Protein, Total 6.2 g/dL (6.4-8.2); Troponin High Sensitivity 7.5 pg/mL (<58.9)
[2023-02-25] MEDS ORDERED: CEFTRIAXONE 1000 MG/VIAL ONE (18:14)
[2023-02-25] MEDS ORDERED: AZITHROMYCIN 500 MG INJ IVPB ONE (18:14)
--- NOTE | 2023-02-25 18:20 | ER ---
Nurse's Notes [facility] Name: Amanda Malik Age: 67 yrs Sex: Female : 1955 Arrival Date: 02/25/2023 Time: 16:33 Bed 13 Private MD: Diagnosis: Other pneumonia, unspecified organism;Hypokalemia;Severe sepsis with septic shock Presentation: 02/25 16:45 Chief complaint: Patient states: vomiting and nausea that began 1 week ago. Coronavirus ss screen: Client denies travel out of the [place] in the last 14 days. Ebola Screen: Patient denies exposure to infectious person. Patient denies travel to an Ebola-affected area in the 21 days before illness onset. Initial Sepsis Screen: Does the patient meet any 2 criteria? No. Patient's initial sepsis screen is negative. Does the patient have a suspected source of infection? No. Patient's initial sepsis screen is negative. Risk Assessment: Do you want to hurt yourself or someone else? Patient reports no desire to harm self or others. Onset of symptoms was February 18, 2023. 16:45 Method Of Arrival: Wheelchair ss 16:45 Acuity: EMILY 2 ss Triage Assessment: 21:05 General: Appears in no apparent distress. comfortable, Behavior is calm, cooperative. aa9 GI: Abdomen is flat. Historical: - Allergies: 16:47 No Known Allergies; ss - PMHx: 16:47 AAA; COPD; GERD; High Cholesterol; Hypertension; ss - PSHx: 16:47 AAA; back and shoulder; hyst; ss - Immunization history:: Client reports receiving the 2nd dose of the Covid vaccine. - Social history:: Smoking status: Patient denies any tobacco usage or history of. Screenin:[facility] ED Fall Risk Assessment (Adult) History of falling in the last 3 months, ko1 including since admission No falls in past 3 months (0 pts) Confusion or Disorientation No (0 pts) Intoxicated or Sedated No (0 pts) Impaired Gait No (0 pts) Mobility Assist Device Used No (0 pt) Altered Elimination No (0 pt) Score/Fall Risk Level 0 - 2 = Low Risk Oriented to surroundings, Maintained a safe environment, Educated pt \T\ family on fall prevention, incl call for assistance when getting out of bed, Assessed \T\ reinforced patient's understanding of fall precautions, Provided non-skid footwear, Hourly rounding (assess needs \T\ fall precautionary measures) done, Used ambulatory aids as needed (educated on \T\ assisted with), Used gait belt as appropriate. Abuse screen: Denies threats or abuse. Denies injuries from another. Nutritional screening: No deficits noted. Tuberculosis screening: No symptoms or risk factors identified. Assessment: 17:32 General: Appears distressed, uncomfortable, ill, Behavior is cooperative, appropriate ko1 for age, anxious. Pain: Complains of pain in generalized. Neuro: No deficits noted. Cardiovascular: No deficits noted. Respiratory: No deficits noted. GI: Abdomen is non-distended. : No deficits noted. EENT: No deficits noted. Derm: No deficits noted. Musculoskeletal: No deficits noted. 20:00 Reassessment: Patient appears in no apparent distress at this time. Patient and/or aa9 family updated on plan of care and expected duration. Pain level reassessed. Patient is alert, oriented x 3, equal unlabored respirations, skin warm/dry/pink. Patient states symptoms have improved. 21:27 Reassessment: Patient appears in no apparent distress at this time. report provided to [address] 21:34 Reassessment: Patient appears in no apparent distress at this time. taken to assigned 9 room via wheelchair with tech. Vital Signs: 16:45 BP 89 / 49; Pulse 97; Resp 18; Temp 98.4(O); Pulse Ox 95% on R/A; Weight 55.79 kg; ss Height 5 ft. 0 in. ; Pain 0/10; 16:45 BP 82 / 43; Pulse 96; Resp 19; Pulse Ox 86% on R/A; ko1 17:00 BP 81 / 45; Pulse 94; Resp 19; Pulse Ox 94% on 2 lpm NC; ko1 17:30 BP 88 / 42; Pulse 92; Resp 19; Temp 99.2(O); Pulse Ox 97% on 2 lpm NC; ko1 18:00 BP 93 / 52; Pulse 94; Resp 22; Pulse Ox 96% on 2 lpm NC; ko1 18:15 BP 92 / 46; Pulse 93; Resp 22; Pulse Ox 100% on 2 lpm NC; ko1 18:55 BP 105 / 69; Pulse 95; Resp 22; Pulse Ox 94% on 2 lpm NC; ko1 20:45 BP 121 / 74; Pulse 88; Resp 17 S; Pulse Ox 97% on 1.5 lpm NC; aa9 21:08 Temp 99.6(O); aa9 16:45 Body Mass Index 24.02 (55.79 kg, 152.4 cm) ss 16:45 Pain Scale: Adult ss ED Course: 16:35 Patient arrived in ED. ts1 16:36 Daniela Langston, ZAYRA is Primary Nurse. ko1 16:38 Rd Daniel PA is PHCP. cp 16:38 Kraig Sabillon MD is Attending Physician. cp 16:47 Triage completed. ss 16:47 Arm band placed on right wrist. ss 17:12 Inserted saline lock: 20 gauge in right antecubital area, using aseptic technique. sg5 Blood collected. 17:16 Procalcitonin Sent. ko1 17:16 Troponin HS Sent. ko1 17:16 Blood Culture Adult (2) Sent. ko1 17:16 CBC with Diff Sent. ko1 17:16 CMP Sent. ko1 17:16 Lactate w/ 2H reflex if indic. Sent. ko1 17:16 Protime (+inr) Sent. ko1 17:16 Ptt, Activated Sent. ko1 17:20 Chest Single View XRAY In Process Unspecified. EDMS 17:30 Patient has correct armband on for positive identification. Placed in gown. Bed in low ko1 position. Call light in reach. Side rails up X2. Client placed on continuous cardiac and pulse oximetry monitoring. NIBP monitoring applied. alarm security or surveillance monitor on. Door closed. Noise minimized. Lights dimmed. Warm blanket given. 18:15 SARS RAPID Sent. ko1 18:15 Influenza Screen (a \T\ B) Sent. ko1 18:18 Zo Grover PA-C is Hospitalizing Provider. cp 20:01 Chest Abdomen Pelvis W Con CT In Process Unspecified. EDMS 21:04 No provider procedures requiring assistance completed. Patient admitted, IV remains in aa9 place. Administered Medications: 17:16 Drug: NS 0.9% IV 500 ml Route: IV; Rate: bolus; Site: left antecubital; ko1 17:33 Follow up: Response: No adverse reaction; IV Status: Completed infusion; IV Intake: ko1 500ml 17:16 Drug: Ondansetron IVP 4 mg Route: IVP; Site: left antecubital; ko1 17:33 Follow up: Response: No adverse reaction ko1 17:16 Drug: Famotidine IVP 20 mg Route: IVP; Site: left antecubital; ko1 17:34 Follow up: Response: No adverse reaction ko1 18:22 Follow up: Response: No adverse reaction ko1 17:33 Drug: NS 0.9% IV 500 ml Route: IV; Rate: 125 ml/hr; Site: left antecubital; ko1 18:11 Drug: Rocephin IV 1 grams Route: IV; Rate: calculated rate; Site: left antecubital; ko1 18:15 Drug: Zithromax IVPB 500 mg Route: IVPB; Infused Over: 1 hrs; Site: left antecubital; ko1 21:04 Follow up: IV Status: Completed infusion aa9 18:55 Drug: Potassium Chloride IV 20 mEq Route: IV; Rate: calculated rate; Site: left ko1 antecubital; 19:13 Drug: NS 0.9% IV (30 ml/kg) 30 ml/kg Route: IV; Rate: bolus; Site: left antecubital; aa9 21:04 Follow up: Response: No adverse reaction; IV Status: Completed infusion aa9 21:04 Drug: NS 0.9% IV 1000 ml Route: IV; Rate: 75 ml/hr; Site: left antecubital; aa9 Medication: 17:30 VIS not applicable for this client. ko1 Intake: 17:33 IV: 500ml; Total: 500ml. ko1 18:56 PO: 60ml (Water); IV: 1000ml (IV Fluid); Total: 1560ml. ko1 Output: 18:56 Urine: 100ml (Voided); Total: 100ml. ko1 Outcome: 18:20 Decision to Hospitalize by Provider. cp 21:04 Admitted to Med/surg aa9 21:04 Condition: stable 21:04 Instructed on the need for admit. 21:34 Patient left the ED. aa9 Signatures: Dispatcher [employer] EDMS Reina Dial RN RN ss Rd Daniel PA PA cp Hedy Auguste RN RN aa9 Daniela Langston RN RN ko1 Nicolette Robles RN RN sg5 Eleni Boyce, PAS PAS ts1
--- NOTE | 2023-02-25 18:20 | EDPHYS ---
Physician Documentation [facility] Name: Amanda Malik Age: 67 yrs Sex: Female : 1955 Arrival Date: 02/25/2023 Time: 16:33 Bed 13 Private MD: ED Physician Kraig Sabillon HPI: 02/25 16:42 This 67 yrs old Unknown Female presents to ER via Unassigned with complaints of cp Nausea/Vomiting, High heart rate. 16:42 The patient presents to the emergency department with nausea, with "dry heaves", cp vomiting, that is continuous. Onset: The symptoms/episode began/occurred 1 week(s) ago. 16:42 Associated signs and symptoms: Pertinent positives: anorexia, Pertinent negatives: cp constipation, diarrhea, fever, GI bleeding. 16:42 The patient has been recently seen by a physician: in [place] ED, yesterday, with cp similar presenting complaints. Historical: - Allergies: 16:47 No Known Allergies; ss - PMHx: 16:47 AAA; COPD; GERD; High Cholesterol; Hypertension; ss - PSHx: 16:47 AAA; back and shoulder; hyst; ss - Immunization history:: Client reports receiving the 2nd dose of the Covid vaccine. - Social history:: Smoking status: Patient denies any tobacco usage or history of. ROS: 16:45 Constitutional: Positive for poor PO intake, Negative for fever. cp 16:45 Eyes: Negative for injury, pain, redness, and discharge. cp 16:45 Cardiovascular: Negative for chest pain. 16:45 Respiratory: Positive for cough, "sounds productive", Negative for shortness of breath, wheezing. 16:45 Abdomen/GI: Positive for nausea and vomiting, anorexia, Negative for diarrhea, constipation. 16:45 : Negative for urinary symptoms. cp 16:45 Skin: Negative for rash. 16:45 Neuro: Positive for weakness, Negative for altered mental status, headache. 16:45 All other systems are negative. Exam: 16:50 Constitutional: The patient appears in no acute distress, alert, awake, cp non-diaphoretic, well developed, well nourished, obviously ill, uncomfortable. 16:50 Head/Face: Normocephalic, atraumatic. cp 16:50 Eyes: Periorbital structures: appear normal, Conjunctiva: normal, no exudate, no injection, Sclera: no appreciated abnormality, Lids and lashes: appear normal, bilaterally. 16:50 ENT: External ear(s): are unremarkable, Nose: is normal, Mouth: Lips: dry, Oral mucosa: pink and intact, moist, Posterior pharynx: is normal, airway is patent, no erythema, no exudate. 16:50 Neck: ROM/movement: is normal, is supple, without pain, no range of motions limitations, no meningismus, no nuchal rigidity. 16:50 Chest/axilla: Inspection: normal. 16:50 Cardiovascular: Rate: normal, Rhythm: regular, Edema: is not appreciated, JVD: is not appreciated. 16:50 Respiratory: the patient does not display signs of respiratory distress, Respirations: shallow respirations, that is mild, Breath sounds: decreased breath sounds, that are mild, are heard in the left posterior lower lobe, stridor, is not appreciated, wheezing: is not appreciated. 16:50 Abdomen/GI: Inspection: abdomen appears normal, Bowel sounds: active, all quadrants, Palpation: soft, in all quadrants, mild abdominal tenderness, in all quadrants. 16:50 Back: CVA tenderness, is absent. 16:50 Skin: no rash present. 16:50 Neuro: Orientation: to person, place \\T\\ time. Mentation: able to follow commands, Motor: moves all fours, general weakness w/o focal weakness. 17:33 ECG was reviewed by the Attending Physician. cp Vital Signs: 16:45 BP 89 / 49; Pulse 97; Resp 18; Temp 98.4(O); Pulse Ox 95% on R/A; Weight 55.79 kg; ss Height 5 ft. 0 in. ; Pain 0/10; 16:45 BP 82 / 43; Pulse 96; Resp 19; Pulse Ox 86% on R/A; ko1 17:00 BP 81 / 45; Pulse 94; Resp 19; Pulse Ox 94% on 2 lpm NC; ko1 17:30 BP 88 / 42; Pulse 92; Resp 19; Temp 99.2(O); Pulse Ox 97% on 2 lpm NC; ko1 18:00 BP 93 / 52; Pulse 94; Resp 22; Pulse Ox 96% on 2 lpm NC; ko1 18:15 BP 92 / 46; Pulse 93; Resp 22; Pulse Ox 100% on 2 lpm NC; ko1 18:55 BP 105 / 69; Pulse 95; Resp 22; Pulse Ox 94% on 2 lpm NC; ko1 20:45 BP 121 / 74; Pulse 88; Resp 17 S; Pulse Ox 97% on 1.5 lpm NC; aa9 21:08 Temp 99.6(O); aa9 16:45 Body Mass Index 24.02 (55.79 kg, 152.4 cm) ss 16:45 Pain Scale: Adult ss MDM: 16:38 Patient medically screened. cp 18:20 Data reviewed: vital signs, nurses notes, lab test result(s), EKG, radiologic studies, cp plain films. 18:20 Management of patient was discussed with the following: Hospitalist: Mile Grover NP cp will admit after discussion. I considered the following discharge prescriptions or medication management in the emergency department Medications were administered in the Emergency Department. See NOV. 02/25 16:48 Order name: Blood Culture Adult (2) cp 02/25 16:48 Order name: CBC with Diff; Complete Time: 20:38 02/25 17:52 Interpretation: Normal except: WBC 11.50; RDW 16.3; MPV 7.4; CANDELARIO% 89.2; LYM% 3.9; NEUT cp A 10.3; LYMA 0.4. 02/25 16:48 Order name: CMP; Complete Time: 17:52 02/25 17:53 Interpretation: Normal except: K 2.8; GLUC 109; CA 8.3; TP 6.2; ALB 2.5; GLOB 3.7; A/G cp 0.7. 02/25 16:48 Order name: Lactate w/ 2H reflex if indic.; Complete Time: 17:52 02/25 16:48 Order name: Protime (+inr); Complete Time: 17:52 cp 02/25 16:48 Order name: Ptt, Activated; Complete Time: 17:52 02/25 16:48 Order name: Urinalysis w/ reflexes; Complete Time: 19:14 02/25 19:14 Interpretation: Normal except: UCLA Turbid; UPROT TRACE; MUCUS 3+. cp 02/25 16:48 Order name: Procalcitonin; Complete Time: 17:52 06/17 17:53 Interpretation: Reviewed. cp 02/25 16:48 Order name: Troponin HS; Complete Time: 17:52 cp 02/25 17:39 Order name: Glucose, Ancillary Testing; Complete Time: 17:52 EDMS 02/25 17:58 Order name: Influenza Screen (a \\T\\ B); Complete Time: 18:53 cp 02/25 17:58 Order name: SARS RAPID; Complete Time: 18:53 cp 02/25 19:54 Order name: CBC Smear Scan; Complete Time: 20:38 EDMS 02/25 16:48 Order name: Chest Single View XRAY; Complete Time: 17:52 cp 02/25 18:59 Order name: Chest Abdomen Pelvis W Con CT; Complete Time: 20:38 sb4 02/25 16:48 Order name: EKG; Complete Time: 16:49 cp 02/25 16:48 Order name: Accucheck; Complete Time: 17:30 cp 02/25 16:48 Order name: Cardiac monitoring; Complete Time: 17:16 cp 02/25 16:48 Order name: EKG - Nurse/Tech; Complete Time: 17:30 cp 02/25 16:48 Order name: IV Saline Lock - Large Bore; Complete Time: 17:16 cp 02/25 16:48 Order name: Labs collected and sent; Complete Time: 17:16 cp 02/25 16:48 Order name: O2 Per Protocol; Complete Time: 17:05 cp 02/25 16:48 Order name: O2 Sat Monitoring; Complete Time: 17:05 cp 02/25 16:48 Order name: Vital Signs; Complete Time: 17:11 cp EC:33 Rate is 90 beats/min. Rhythm is regular. [place] interval is normal. QRS interval is normal. cp QT interval is normal. Interpreted by me. Reviewed by me. Administered Medications: 17:16 Drug: NS 0.9% IV 500 ml Route: IV; Rate: bolus; Site: left antecubital; ko1 17:33 Follow up: Response: No adverse reaction; IV Status: Completed infusion; IV Intake: ko1 500ml 17:16 Drug: Ondansetron IVP 4 mg Route: IVP; Site: left antecubital; ko1 17:33 Follow up: Response: No adverse reaction ko1 17:16 Drug: Famotidine IVP 20 mg Route: IVP; Site: left antecubital; ko1 17:34 Follow up: Response: No adverse reaction ko1 18:22 Follow up: Response: No adverse reaction ko1 17:33 Drug: NS 0.9% IV 500 ml Route: IV; Rate: 125 ml/hr; Site: left antecubital; ko1 18:11 Drug: Rocephin IV 1 grams Route: IV; Rate: calculated rate; Site: left antecubital; ko1 18:15 Drug: Zithromax IVPB 500 mg Route: IVPB; Infused Over: 1 hrs; Site: left antecubital; ko1 21:04 Follow up: IV Status: Completed infusion aa9 18:55 Drug: Potassium Chloride IV 20 mEq Route: IV; Rate: calculated rate; Site: left ko1 antecubital; 19:13 Drug: NS 0.9% IV (30 ml/kg) 30 ml/kg Route: IV; Rate: bolus; Site: left antecubital; aa9 21:04 Follow up: Response: No adverse reaction; IV Status: Completed infusion aa9 21:04 Drug: NS 0.9% IV 1000 ml Route: IV; Rate: 75 ml/hr; Site: left antecubital; aa9 Disposition Summary: 02/25/23 18:20 Hospitalization Ordered Hospitalization Status: Inpatient Admission cp Provider: Zo Grover [facility] cp Condition: Stable cp Problem: new cp Symptoms: have improved cp Bed/Room Type: Standard cp Room Assignment: 213(02/25/23 21:03) Diagnosis - Other pneumonia, unspecified organism cp - Hypokalemia cp - Severe sepsis with septic shock cp Forms: - Medication Reconciliation Form cp - SBAR form cp Addendum: 02/27/2023 20:04 Co-signature as Attending Physician, Kraig Sabillon MD I reviewed the patient's care r n provided by the Advanced Practice Provider and agree with the diagnosis and treatment plan. Signatures: Dispatcher [employer] GALILEATN Promise Irizarry RN RN mw Nieto, Roman, MD MD rn Blanchard, Shelby, RN RN ss Page, Corey, PA PA cp Avalos, Aylin, RN RN aa9 Oliver, Kathy, RN RN ko1 Zo Grover PA-C PATemi sb4 Corrections: (The following items were deleted from the chart) 02/25 18:40 18:20 Sepsis, unspecified organism cp cp 19:12 18:54 Chest Abdomen W/ Con+CT.RAD.BRZ ordered. EDMS EDMS 19:14 18:23 Chest Abdomen Pelvis W Con+CT.RAD.BRZ ordered. EDMS EDMS 21:03 18:20 cp mw
[2023-02-25 18:31] LABS: SARS-CoV-2 Antigen Rapid Res Negative (Negative)
[2023-02-25] MEDS ORDERED: KCL 20 MEQ/100 mL IVPB 100 ML IV ONE (18:49)
[2023-02-25 19:05] LABS: Specific Gravity 1.019 (1.005-1.030); Urine Bacteria None Seen /HPF (<20); Urine Bilirubin NEGATIVE (Negative); Urine Blood Negative (Negative); Urine Clarity Turbid (Clear); Urine Color Light-Yellow (Yellow); Urine Glucose NEGATIVE (Negative); Urine Mucus 3+ /HPF (None Seen); Urine Protein TRACE (Negative); Urine RBC <5 /HPF (None Seen); Urine Urobilinogen Normal (Normal); Urine pH 5.5 (5.0-7.0)
[2023-02-25 19:53] LABS: Blood Morphology Comment NOT SEEN (NOT SEEN); Platelet Estimate ADEQ; White Blood Cell Scan OK (OK)
--- NOTE | 2023-02-25 20:27 | RAD REPORT ---
EXAM DESCRIPTION: CT - Chest Abdomen Pelvis W Cont - 02/25/2023 8:00 pm CLINICAL HISTORY: Chest and abdomen pain. pna, n/v;Pain COMPARISON: Abdomen Pelvis W Contrast dated 04/02/2020 TECHNIQUE: Approximately 100 mL nonionic IV contrast was administered to the patient. All CT scans are performed using dose optimization technique as appropriate and may include automated exposure control or mA/KV adjustment according to patient size. FINDINGS: Advanced emphysema is present. Ill-defined opacity is present in the lingula suspicious fo r pneumonia.No pleural or pericardial effusion.No intrathoracic adenopathy. The liver, spleen, pancreas, adrenal glands and kidneys are within normal limits. Infrarenal abdomina l aortic aneurysm measuring 4.1 cm noted. endograft is in place. No bowel obstruction, free air, free fluid or abscess. Fat containing bilateral inguinal hernias. No pathologic lymphadenopathy in the abdomen or pelvis. Hardware is in place with postsurgical change lumbar spine. IMPRESSION: Lingular infiltrate/ pneumonia suspected.Advanced COPD.
--- NOTE | 2023-02-25 20:57 | P.HP ---
Certification for Inpatient Patient admitted to: Inpatient With expected LOS: <2 Midnights Patient will require the following post-hospital care: None Practitioner: I am a practitioner with admitting privileges, knowledge of patient current condition, hospital course, and medical plan of care. Services: Services provided to patient in accordance with Admission requirements found in Title 42 Section 412.3 of the Code of Federal Regulations Patient History Date of Service: 02/25/23 Reason for admission: Pneumonia, Septic Shock History of Present Illness: Ms. Malik is a 67-year-old female with past medical history of COPD, GERD, hypertension, hyperlipidemia, abdominal aortic aneurysm s/p repair who presented the emergency department with complaints of nausea, vomiting, cough, weakness x 1 week. She was noted to be hypoxic on room air upon arrival, tachycardic, hypotensive, and tachypneic. Chest xray and CT showed "Lingular infiltrate/ pneumonia suspected.Advanced COPD." Labs significant for WBC 11.5 with left shift, potassium 2.8, procal 0.61. BP was initially 80s/40s but responded well to the 30cc/kg fluid bolus. She was additionally started on azithromycin and rocephin. She is requiring 2L NC at this time. Will admit for further management. Allergies No Known Drug Allergies Allergy (Verified 05/24/22 21:32) Unknown No Known Allergies Allergy (Uncoded 02/28/19 23:32) Unknown Home medications list reviewed: Yes Home Medications: Atorvastatin Calcium [Lipitor*] 10 mg PO BEDTIME 05/21/16 Metoprolol Succinate [Toprol Xl*] 50 mg PO BEDTIME 05/21/16 Escitalopram Oxalate 20 mg PO BEDTIME 02/28/19 Fluticasone/Vilanterol [Breo Ellipta 200-25 Mcg INH] 1 each IH BEDTIME 02/28/19 Omeprazole 20 mg PO BEDTIME 02/28/19 Ipratropium/Albuterol Sulfate [Iprat-Albut 0.5-3(2.5) mg/3 ml] 3 ml IH QIDP PRN 11/30/19 Losartan/Hydrochlorothiazide [Losartan-Hctz 50-12.5 mg Tab] 1 tab PO BEDTIME 05/24/22 - Past Medical/Surgical History Diabetic: No -: Hyperlipidemia -: Hypertension -: GERD -: Depression -: COPD -: History of abdominal aortic aneurysm, status post stent -: Abdominal aortic aneurysm stent -: Cholecystectomy -: Appendectomy -: Hysterectomy -: Tonsillectomy -: Bladder suspension -: Shoulder Surgery -: Back Surgery Psychosocial/ Personal History: She is , has 3 children, 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 - Family History Sister -: Cancer Father -: Heart disease, Lung disease, Diabetes Mother -: Other (see notes) Notes: COPD Osteoporosis - Social History Smoking Status: Former smoker Alcohol use: Yes CD- Drugs: No Caffeine use: Yes Place of Residence: Home Review of Systems Respiratory: Cough, Shortness of Breath Gastrointestinal: Nausea, Vomiting Physical Examination - Vital Signs Temperature: 99.2 F Blood Pressure: 105/69 Pulse: 95 Respirations: 22 Pulse Ox (%): 94 (2L NC) - Physical Exam General: Alert, In no apparent distress HEENT: Atraumatic, EOMI, Sclerae nonicteric Neck: Supple, 2+ carotid pulse no bruit Respiratory: Expiratory wheezes Cardiovascular: Regular rate/rhythm, Normal S1 S2 Gastrointestinal: Normal bowel sounds, No tenderness Musculoskeletal: No tenderness Integumentary: No rashes Neurological: Normal speech, Normal affect - Studies Laboratory Data (last 24 hrs) 02/25/23 17:06: PT 12.1, INR 1.10, APTT 25.7 02/25/23 17:06: Sodium 137, Potassium 2.8 L, BUN 9, Creatinine 0.59, Glucose 109 H, Total Bilirubin 0.8, AST 18, ALT 23, Alkaline Phosphatase 56 02/25/23 17:06: WBC 11.50 H, Hgb 12.8, Hct 39.1, Plt Count 232 Microbiology Data (last 24 hrs): 02/25/23 18:15 Nasopharnyx Influenza Type A Antigen Screen - Final 02/25/23 18:15 Nasopharnyx Influenza Type B Antigen Screen - Final Assessment and Plan - Problems (Diagnosis) (1) Pneumonia Current Visit: Yes Status: Acute Qualifiers: Pneumonia type: due to unspecified organism Laterality: right Lung location: middle lobe of lung Qualified Code(s): J18.9 - Pneumonia, unspecified organism (2) Sepsis Current Visit: Yes Status: Acute Qualifiers: Sepsis type: sepsis due to unspecified organism Sepsis acute organ dysfunction status: with acute organ dysfunction Severe sepsis acute organ dysfunction type: unspecified Severe sepsis shock status: with septic shock Qualified Code(s): A41.9 - Sepsis, unspecified organism; R65.21 - Severe sepsis with septic shock (3) COPD (chronic obstructive pulmonary disease) Current Visit: Yes Status: Chronic Qualifiers: COPD type: emphysema Emphysema type: unspecified Qualified Code(s): J43.9 - Emphysema, unspecified (4) GERD (gastroesophageal reflux disease) Current Visit: Yes Status: Chronic Qualifiers: Esophagitis presence: without esophagitis Qualified Code(s): K21.9 - Gastro-esophageal reflux disease without esophagitis (5) Hyperlipidemia Current Visit: Yes Status: Chronic Qualifiers: Hyperlipidemia type: unspecified Qualified Code(s): E78.5 - Hyperlipidemia, unspecified (6) Hypertension Current Visit: Yes Status: Chronic Qualifiers: Hypertension type: primary hypertension Qualified Code(s): I10 - Essential (primary) hypertension (7) Acute and chronic respiratory failure Current Visit: Yes Status: Chronic Qualifiers: Respiratory failure complication: hypoxia Qualified Code(s): J96.21 - Acute and chronic respiratory failure with hypoxia (8) Hypokalemia Current Visit: Yes Status: Acute - Plan Patient is admitted for further management of septic shock secondary to pneumonia. Septic shock criteria met at 1700 with tacycardia, tachypnea, elevated WBC, source of pneumonia, and 2 systolic BPs < 90. Lactate WNL. Continue rocephin and azithromycin. Blood cultures obtained. Encourage incentive spirometry. PRN breathing treatments. Currently requiring 2L NC. Titrate and wean as tolerated. Monitor and replete electrolytes per protocol. Reconcile and continue home medications. Lovenox for VTE prophylaxis. Full code. Discharge Plan: Home Plan to discharge in: 48 Hours - Advance Directives Does patient have a Living Will: No Does patient have a Durable POA for Healthcare: No - Code Status/Comfort Care Code Status Assessed: Yes Code Status: Full Code Physician Review: Patient Assessed, Agree with Above Assessment and Plan Critical Care: No Time Spent Managing Pts Care (In Minutes): 50
[2023-02-25] MEDS ORDERED: ONDANSETRON 4 MG/2 ML VIAL IV PRN (21:25)
[2023-02-25] MEDS ORDERED: BENZONATATE 100 MG CAP PO PRN (21:25)
[2023-02-25] MEDS ORDERED: ACETAMINOPHEN 500 MG TAB PO PRN (21:25)
[2023-02-25] MEDS ORDERED: ALBUTEROL 2.5 MG/3 ML NEB SOL NEB PRN (21:25)
--- NOTE | 2023-02-25 22:34 | P.INFCA ---
Sepsis Focused Assessment - Focused Assessment Complete? Sepsis Focused Assessment Completed?: Yes - Sepsis Screen Result Severe Sepsis: Negative Septic Shock: Negative - Evaluation Current stage of sepsis: Resolved - Vital Signs Reviewed: Yes Temperature: 99.2 F Heart rate: 95 Blood Pressure: 105/69 Respiratory Rate: 22 O2 Sat by Pulse Oximetry: 94 (2L NC) - Examination Comments: sepsis reasessment completed at [id number]
[2023-02-26 03:18] LABS: Hematocrit 33.5 % (36.0-45.0); Lymphocytes % 6.1 % (15.3-44.8); MCV 92.8 fL (80-100); MPV 7.5 fL (7.6-11.3); RBC Red Blood Cell Count 3.62 M/uL (3.86-4.86)
[2023-02-26 03:51] LABS: Magnesium 1.7 mg/dL (1.6-2.4); Phosphorus 2.7 mg/dL (2.5-4.9); Thyroid Stimulating Hormone 0.31 uIU/mL (0.358-3.740)
[2023-02-26] MEDS ORDERED: MAGNESIUM SULFATE 1 gm IVPB 1 GM/100 ML BAG IV ONE (04:44)
[2023-02-26] MEDS: ENOXAPARIN 40 MG/0.4 ML SQ SCH (08:29)
[2023-02-26] MEDS ORDERED: POTASSIUM CL SA 10 MEQ TAB PO ONE ×2 (09:00→17:00)
[2023-02-26] MEDS ORDERED: CEFTRIAXONE 1,000 MG in NA CHLORIDE 0.9% 50 ML IVPB SCH (09:00)
[2023-02-26] MEDS ORDERED: AZITHROMYCIN IV 500 MG in NA CHLORIDE 0.9% 250 ML IVPB SCH (09:00)
[2023-02-26] MEDS ORDERED: DIPHENHYDRAMINE 25 MG TAB/CAP PO PRN (09:04)
[2023-02-26] MEDS ORDERED: POTASSIUM 25 MEQ EFFERV TAB PO SCH (09:43)
[2023-02-26] MEDS: ARFORMOTEROL TARTRATE 15 MCG/2 ML VIAL.NEB NEB SCH ×2 (09:47→20:00)
--- NOTE | 2023-02-26 09:48 | P.PN ---
Subjective Date of Service: 02/26/23 Chief Complaint: Left lower lobe pneumonia His condition is stable no new change she does have a history of COPD admitted with acute onset of left lower lobe pneumonia Review of Systems General: Weakness Respiratory: Shortness of Breath Physical Examination - Vital Signs Temperature: 98.7 F Blood Pressure: 105/55 Pulse: 72 Respirations: 16 Pulse Ox (%): 96 - Physical Exam General: Alert, In no apparent distress, Oriented x3 Respiratory: Crackles/rales (Because on the left side) Cardiovascular: No edema, Regular rate/rhythm, Normal S1 S2 - Studies Laboratory Data (last 24 hrs) 02/25/23 17:06: PT 12.1, INR 1.10, APTT 25.7 02/25/23 17:06: Sodium 137, Potassium 2.8 L, BUN 9, Creatinine 0.59, Glucose 109 H, Total Bilirubin 0.8, AST 18, ALT 23, Alkaline Phosphatase 56 02/25/23 17:06: WBC 11.50 H, Hgb 12.8, Hct 39.1, Plt Count 232 Microbiology Data (last 24 hrs): 02/25/23 18:15 Nasopharnyx Influenza Type A Antigen Screen - Final 02/25/23 18:15 Nasopharnyx Influenza Type B Antigen Screen - Final Assessment And Plan - Current Problems (Diagnosis) (1) Pneumonia Current Visit: Yes Status: Acute Plan: Patient is 67 years of age admitted with left lower lobe pneumonia history of COPD using Breo continue with present therapy his blood pressure is low DC antihypertensive agents from now continue with IV fluids heart on lactated Ringer's Qualifiers: Pneumonia type: due to unspecified organism Laterality: right Lung location: middle lobe of lung Qualified Code(s): J18.9 - Pneumonia, unspecified organism Physician Review: Patient Assessed, Agree with Above Assessment and Plan
[2023-02-26] MEDS ORDERED: ALBUTEROL 2.5 MG/3 ML NEB SOL NEB PRN (10:00)
[2023-02-26] MEDS: Ringers Lactate 1,000 ML IV SCH ×2 (10:11→20:27)
[2023-02-26] MEDS ORDERED: NA CHLORIDE 0.9% 500 ML IV ONE (16:42)
[2023-02-26] MEDS: HOME MED 1 EA UNK (Omeprazole [Omeprazole] 20 MG Capsule.Dr) PO SCH (21:00)
[2023-02-26] MEDS: ATORVASTATIN 10 MG TAB PO SCH (21:14)
[2023-02-26] MEDS: POTASSIUM CL SA 10 MEQ TAB PO SCH (21:14)
[2023-02-26 22:36] VITALS: BMI 24.0
[2023-02-27 02:42] LABS: Absolute Lymphocytes (CBC) 1.2 K/uL (0.7-4.9); Hematocrit 35.1 % (36.0-45.0); MCV 92.7 fL (80-100); MPV 7.2 fL (7.6-11.3); RBC Red Blood Cell Count 3.79 M/uL (3.86-4.86)
[2023-02-27 03:57] LABS: Magnesium 1.9 mg/dL (1.6-2.4); Potassium 4.9 mEq/L (3.5-5.1)
[2023-02-27] MEDS: Ringers Lactate 1,000 ML IV SCH ×5 (04:16→19:33)
[2023-02-27] MEDS: ARFORMOTEROL TARTRATE 15 MCG/2 ML VIAL.NEB NEB SCH ×2 (08:30→19:30)
[2023-02-27] MEDS ORDERED: LOSARTAN POTASSIUM 50 MG TABLET PO SCH (09:00)
[2023-02-27] MEDS ORDERED: HOME MED 1 EA UNK (Escitalopram Oxalate [Escitalopram Oxalate] 10 MG Tablet) PO SCH (09:00)
[2023-02-27] MEDS ORDERED: HOME MED 1 EA UNK (Fluticasone/Vilanterol [Breo Ellipta 200-25 Mcg Inh] Blst.W.Dev) IH SCH (09:00)
[2023-02-27] MEDS ORDERED: METOPROLOL XL 50 MG TAB PO SCH (09:00)
[2023-02-27] MEDS: ESCITALOPRAM 20 MG TAB PO SCH (09:20)
[2023-02-27] MEDS: ENOXAPARIN 40 MG/0.4 ML SQ SCH (09:20)
[2023-02-27] MEDS: levoFLOXacin 750 MG TAB PO SCH (09:20)
[2023-02-27] MEDS: POTASSIUM CL SA 10 MEQ TAB PO SCH ×2 (09:20→20:10)
--- NOTE | 2023-02-27 12:11 | P.PN ---
Subjective Date of Service: 02/27/23 Chief Complaint: Left lower lobe pneumonia Patient is doing much better she has to be given some IV fluids yesterday more hemodynamically stable Review of Systems General: Weakness Respiratory: Shortness of Breath Physical Examination - Vital Signs Temperature: 97.4 F Blood Pressure: 149/78 Pulse: 75 Respirations: 20 Pulse Ox (%): 91 - Physical Exam General: Alert, In no apparent distress, Oriented x3 Respiratory: Clear to auscultation bilaterally Cardiovascular: No edema, Regular rate/rhythm Assessment And Plan - Current Problems (Diagnosis) (1) Pneumonia Current Visit: Yes Status: Acute Plan: Patient admitted with acute pneumonia with underlying COPD doing much better her vital signs all stable White count is declining cultures are negative plan to discharge home on levofloxacin ambulate prior to discharge Qualifiers: Pneumonia type: due to unspecified organism Laterality: right Lung location: middle lobe of lung Qualified Code(s): J18.9 - Pneumonia, unspecified organism Physician Review: Patient Assessed, Agree with Above Assessment and Plan
--- NOTE | 2023-02-27 17:53 | EKG ---
Test Date: 2023-02-25 Test Time: 17:27:26 Jockey Agent: DENITA MEASUREMENT RESULTS: Intervals: Rate: 90 ID: [id number] QRSD: 72 QT: 368 QTc: 450 [place]: P: 72 ID: [id number] QRS: 53 T: 32 INTERPRETIVE STATEMENTS: Normal sinus rhythm Nonspecific ST abnormality Abnormal ECG Compared to ECG 05/24/2022 15:10:42 ST (T wave) deviation now present Sinus bradycardia no longer present Electronically Signed On 02-27-23 17:50:07 CDT by Thien Joya
[2023-02-27] MEDS: ATORVASTATIN 10 MG TAB PO SCH (20:10)
[2023-02-27] MEDS: HOME MED 1 EA UNK (Omeprazole [Omeprazole] 20 MG Capsule.Dr) PO SCH (20:11)
[2023-02-28] MEDS: Ringers Lactate 1,000 ML IV SCH (03:29)
[2023-02-28 06:30] LABS: Absolute Lymphocytes (CBC) 1.1 K/uL (0.7-4.9); Hematocrit 36.7 % (36.0-45.0); Lymphocytes % 12.4 % (15.3-44.8); MCV 92.8 fL (80-100); MPV 7.2 fL (7.6-11.3); RBC Red Blood Cell Count 3.96 M/uL (3.86-4.86)
[2023-02-28 06:45] LABS: Albumin 2.5 g/dL (3.4-5.0); Bilirubin Total 0.4 mg/dL (0.2-1.0); Magnesium 1.9 mg/dL (1.6-2.4); Phosphorus 3.7 mg/dL (2.5-4.9); Potassium 4.3 mEq/L (3.5-5.1); Protein, Total 6.6 g/dL (6.4-8.2)
--- NOTE | 2023-02-28 07:31 | RAD REPORT ---
EXAM DES[facility] 4:50 am CLINICAL HISTORY: pneumonia COMPARISON: Chest Single View dated 02/25/2023; Chest Single View dated 05/25/2022; Chest Single View dated 05/24/2022; Chest Single View dated 04/02/2020 TECHNIQUE: Portable AP view of the chest. FINDINGS: Improving left mid to basal lung aeration. Stable blunting of the right costophrenic angle which may relate to pleural thickening or stable subpulmonic effusion. Stable postsurgical changes i n the right lung. Spinal stimulator electrodes again seen. No pneumothorax or other effusion. The car diomediastinal contours are unremarkable. IMPRESSION: Improving aeration in the mid to basal left lung. No other acute findings.
[2023-02-28] MEDS: ARFORMOTEROL TARTRATE 15 MCG/2 ML VIAL.NEB NEB SCH (07:40)
[2023-02-28] MEDS: ENOXAPARIN 40 MG/0.4 ML SQ SCH ×2 (09:00→09:11)
[2023-02-28] MEDS: ESCITALOPRAM 20 MG TAB PO SCH (09:12)
[2023-02-28] MEDS: POTASSIUM CL SA 10 MEQ TAB PO SCH (09:12)
[2023-02-28] MEDS: levoFLOXacin 750 MG TAB PO SCH (09:12)
--- NOTE | 2023-02-28 15:41 | P.DS ---
Admission Date: 02/25/23 Discharge Date: 02/28/23 Disposition: ROUTINE DISCHARGE Discharge Condition: FAIR Reason for Admission: Left lower lobe pneumonia Consultations: 1. Pulmonology Hospital Course: DIAGNOSES: # Hypotension with concern for Septic Shock secondary to Left-Sided Community- Acquired Pneumonia # Chronic Obstructive Pulmonary Disease with PRN Home Oxygen # Hypokalemia # History of Abdominal Aortic Aneurysm s/p Endograft Stenting # Hypertension # Dyslipidemia # Subclinical Hypothyroidism # History of Tobacco Use Disorder # Gastroesophageal Reflux Disease HOSPITAL COURSE: Ms. Amanda Malik is a pleasant 67 year old female with a past medical history significant for abdominal aortic aneurysm s/p endograft stenting, chronic obstructive pulmonary disease, tobacco use disorder, hypertension, and dyslipidemia who was admitted to the [facility] on 02/25/2023 for nausea, vomiting, cough, and hypotension. She was admitted to the Medicine service. Upon further evaluation, her chest x- ray revealed, "moderate left-sided pneumonia." Her CT chest/abdomen/pelvis revealed, "lingular infiltrate/pneumonia suspected.Advanced COPD." Pulmonology was consulted and she was evaluated by Dr. Wild. She was treated with IV antibiotics and, over the course of her hospitalization, her symptoms improved significantly. Repeat chest x-ray this morning revealed, "improving aeration in the mid to basal left lung. No other acute findings." She ambulated around the nursing station with nursing staff without any issues. From a Pulmonology standpoint, Dr. Wild has cleared her for discharge with outpatient follow- up. On 02/28/2023, she was seen on rounds and deemed medically stable for discharge. She was discharged with instructions to schedule follow-up appointments with her PCP (Dr. Watkins) and with Pulmonology (Dr. Wild). She was provided prescriptions for levofloxacin and benzonatate. She was given the opportunity to ask questions and reported no further questions. Furthermore, all questions were answered to the best of my ability. A copy of this discharge summary will be sent to the above providers to facilitate continuity of care. Today, I personally spent 25 minutes on her case, of which greater than 50% of the time was spent in patient education, counseling, and coordination of care as described above. Vital Signs/Physical Exam: Temp Pulse Resp BP Pulse Ox 97.6 F 95 20 137/77 90 02/28/23 15:48 02/28/23 15:48 02/28/23 15:48 02/28/23 15:48 02/28/23 15:48 General: Alert, In no apparent distress, Oriented x3 HEENT: Atraumatic, Mucous membr. moist/pink, Sclerae nonicteric Neck: JVD not distended Respiratory: Clear to auscultation bilaterally, Diminished Cardiovascular: No edema, Regular rate/rhythm, Normal S1 S2, No gallops, No rubs, No murmurs Gastrointestinal: Normal bowel sounds, Soft and benign, Non-distended, No tenderness, No rebound, No guarding Musculoskeletal: No clubbing Integumentary: No rashes Neurological: Normal speech, Normal affect Laboratory Data at Discharge: WBC 8.80 thou/uL (4.3-10.9) 02/28/23 06:14 Hgb 12.2 g/dL (12.0-15.0) 02/28/23 06:14 Hct 36.7 % (36.0-45.0) 02/28/23 06:14 Plt Count 327 thou/uL (152-406) 02/28/23 06:14 PT 12.1 SECONDS (9.5-12.5) 02/25/23 17:06 INR 1.10 02/25/23 17:06 APTT 25.7 SECONDS (24.3-36.9) 02/25/23 17:06 Sodium 138 mEq/L (136-145) 02/28/23 06:14 Potassium 4.3 mEq/L (3.5-5.1) 02/28/23 06:14 BUN 5 mg/dL (7-18) L 02/28/23 06:14 Creatinine 0.41 mg/dL (0.55-1.02) L 02/28/23 06:14 Glucose 100 mg/dL (74-106) 02/28/23 06:14 Phosphorus 3.7 mg/dL (2.5-4.9) 02/28/23 06:14 Magnesium 1.9 mg/dL (1.6-2.4) 02/28/23 06:14 Total Bilirubin 0.4 mg/dL (0.2-1.0) 02/28/23 06:14 AST 16 U/L (15-37) 02/28/23 06:14 ALT 25 U/L (13-56) 02/28/23 06:14 Alkaline Phosphatase 58 U/L (45-117) 02/28/23 06:14 Triglycerides 70 mg/dL (<150) 02/26/23 02:54 Cholesterol 121 mg/dL (<200) 02/26/23 02:54 HDL Cholesterol 46 mg/dL (40-60) 02/26/23 02:54 Cholesterol/HDL Ratio 2.63 02/26/23 02:54 Home Medications: Atorvastatin Calcium [Lipitor*] 10 mg PO BEDTIME 05/21/16 Escitalopram Oxalate 20 mg PO DAILY 02/28/19 Fluticasone/Vilanterol [Breo Ellipta 200-25 Mcg INH] 1 each IH DAILY 02/28/19 Omeprazole 20 mg PO BEDTIME 02/28/19 Benzonatate [Tessalon Perle*] 100 mg PO Q8HP PRN 7 Days #20 cap 02/28/23 levoFLOXacin [Levaquin*] 750 mg PO DAILY 5 Days #5 tab 02/28/23 New Medications: Benzonatate [Tessalon Perle*] 100 mg PO Q8HP PRN 7 Days #20 cap PRN Reason: Cough levoFLOXacin [Levaquin*] 750 mg PO DAILY 5 Days #5 tab Physician Discharge Instructions: 1. Please call and schedule a follow-up appointment with your PCP (Dr. Watkins) in 3-5 days - Your thyroid tests were abnormal. Please have him repeat your thyroid blood-work at your next office visit. 2. Please call and schedule a follow-up appointment with Pulmonology (Dr. Wild) in 5-7 days - Please have him repeat your chest x-ray in about 3-4 weeks to make sure your pneumonia has fully healed Diet: AHA Activity: Ad nikky Followup: Bipin Wild MD [ACTIVE - CAN ADMIT] - Herman Watkins MD [UNKNOWN] - Time spent managing pt's care (in minutes): 25
[2023-02-28 15:50] VITALS: BP 137/77; TEMP 97.6
[2023-02-28 16:57] VITALS: O2SAT 90
== END 2023-02-28 16:43 | disposition home or self-care (01) | DRG 193 ==
LOC: ER 16:33 → ERHOLD 20:49 → 2ND 21:27
PROVIDERS: ADMIT Internal Medicine Sleep Medicine; ATTEND Internal Medicine
DX: J18.9 Pneumonia, unspecified organism (principal); J96.21 Acute and chronic respiratory failure with hypoxia; R65.21 Severe sepsis with septic shock; Z99.81 Dependence on supplemental oxygen; Z87.891 Personal history of nicotine dependence; E87.6 Hypokalemia; I71.40 Abdominal aortic aneurysm, without rupture, unspecified; J43.9 Emphysema, unspecified; K21.9 Gastro-esophageal reflux disease without esophagitis; I10 Essential (primary) hypertension; Z28.311 Partially vaccinated for COVID-19; F32.A Depression, unspecified; Z90.49 Acquired absence of other specified parts of digestive tract; Z90.710 Acquired absence of both cervix and uterus; E03.9 Hypothyroidism, unspecified
CPT/HCPCS: 36415; 71045; 71260; 74177; 80048; 80053; 80061; 81001; 82947; 83605; 83735; 84100; 84132; 84145; 84439; 84443; 84484; 85025; 85610; 85730; 87040; 87070; 87205; 87804; 87811; 93005; 94010; 94640; 94760; 96365; 96366; 96375; 99285; J0696; J1650; J2405; J3475; J3480; J7030; J7040; J7050; J7120; J7605; Q9967

== ENCOUNTER 2023-05-20 13:10 | Inpatient (IN) | payer OTHER, BC ==
--- OUTSIDE RECORDS SUMMARY | 2023-05-20 13:27 | XMS REPORT | Continuity of Care Document ---
:1955 Author Organization [facility] t Address [address] [place] [address] [place] [id number] Care Team Providers Name Role Phone Herman Watkins Primary Care Physician HERMAN WATKINS Attending Clinician Unavailable Herman Watkins MD Attending Clinician Lab, Ang - Db Attending Clinician Unavailable Doctor Unassigned, [place] Attending Clinician Unavailable YUKI JOHNSON Attending Clinician Unavailable Eleni Nazario Attending Clinician YULIANA DIAZ Attending Clinician Unavailable Yuliana Lopez Attending Clinician REGLA REYNAGA Attending Clinician Unavailable Regla Patel Attending Clinician Ben Brush DO Attending Clinician ANGIE POOLE Attending Clinician Unavailable Virgilio ASCENCIO, Angie Pinto Attending Clinician Natali Baldwin MD Attending Clinician Sanchez ASCENCIO, Margarette Smyth Attending Clinician Vls-Lab Attending Clinician Unavailable ESAU SHIRLEY Attending Clinician Unavailable Nurse, [facility] Pob Immunization Attending Clinician Unavailable Esau Shirley DO Attending Clinician BEN BRUSH Attending Clinician Unavailable BEN BRUSH Attending Clinician Unavailable SKIP MERRILL Attending Clinician Unavailable Elias Bai MD Attending Clinician ELIAS BAI Attending Clinician Unavailable Gareth EGG TRAYER, Brandy A Attending Clinician BRANDY SERVIN Attending Clinician Unavailable Skip Merrill MD Attending Clinician Yemi Augustin Attending Clinician Jack EAR SPECIALIST, Jessika L Attending Clinician Brent OTYi L Attending Clinician Unavailable Lab, [facility] Fam Pob I Attending Clinician Unavailable EUGENIA JIMENEZ Attending Clinician Unavailable Yuki Johnson MD Attending Clinician Lizeth EGG TRAYER, Aubrey Attending Clinician UABREY WATERMAN Attending Clinician Unavailable KARL RUSSELL Attending Clinician Unavailable HERMAN WATKINS Admitting Clinician Unavailable ANGIE POOLE Admitting Clinician Unavailable Angie Poole MD Admitting Clinician KARL RUSSELL Admitting Clinician Unavailable Payers Payer Name Policy Type Policy Number Effective Date Expiration Date S ource MEDICARE PART A \\T\\ [id number] 2020 B 00:00:00 [employer] TRADITIONAL [id number] 2020 00:00:00 Problems Condition Condition Condition Status Onset Resolution Last Treating Co mments Source Name Details Category Date Date Treatment Clinician Date Macromasti Macromasti Disease Active 2021-09 Overview : Univers a a 1-08 Formattin ity of 00:00: g of this note Medical might be Branch different from the original. Added automatic ally from request for surgery [id number] Reduced Reduced Disease Active Univers mobility mobility 5-12 ity of 00:00: [place] [facility] Dyspnea on Dyspnea on Disease Active U nivers minimal minimal 5-12 ity of exertion exertion 00:00: Medical Branch AAA AAA Disease Recurre [facility] (abdominal (abdominal nce 1-04 [place] aortic aortic 00:00: Medical aneurysm) aneurysm) 00 [facility] Gastroesop Gastroesop Disease Active U nivers hageal hageal 3-26 ity of reflux reflux 00:00: [place] disease, disease, 00 Medica l esophagiti esophagiti [...] y of d type d type 00:00: [place] [facility] Essential Essential Disease Active Uni vers hypertensi hypertensi 1-27 it y of on on 00:00: [place] [address] Medical Branch Chronic Chronic Disease Active 2015-09 Univers obstructiv obstructiv 0-05 it y of e e 00:00: [place] pulmonary pulmonary 00 Medi zan disease disease Branch with acute with acute exacerbati exacerbati on on Infection Infection Disease Active Uni vers of skin of skin 05-17 ity of due to due to 00:00: [place] methicilli methicilli 00 Me dical n n Branch resistant resistant Staphyloco Staphyloco ccus ccus aureus aureus (MRSA) (MRSA) Infection Infection Disease Active Uni vers of skin of skin 05-17 ity of due to due to 00:00: [place] methicilli methicilli 00 Me dical n n Branch resistant resistant Staphyloco Staphyloco ccus ccus aureus aureus (MRSA) (MRSA) Cyst of Cyst of Disease Active Univers left left 3-21 ity of kidney kidney 00:00: [place] [address] Medical Branch Hyperlipid Hyperlipid Disease Active 2014-09 U nivers emia emia 2-11 ity of 00:00: [place] [address] Medical Branch 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 U nivers s of s of 2-11 ity of lumbosacra [place]umbosacra [place] region 00 Medica Branch Osteopenia Osteopenia Disease Active 2014-09 U nivers 2-11 ity of 00:00: [address] Depression Depression Disease Active 2014-09 U nivers 2- ity of 00:00: [address] Allergies, Adverse Reactions, Alerts Allergy Allergy Status Severity Reaction(s) Onset Inactive Treating Comm ents Source Name Type Date Date Clinician No Known DA Active U 2018- [facility] 00:00: [address] No Known DA Active U [facility]20 [facility] 00:00: [address] No Known DA Active U [facility]ie 4-07 [facility] 00:00: [address] NO KNOWN Drug Active Univers ALLERGIE Class ity of S [facility] Social History Social Habit Start Date Stop Date Quantity Comments Source History SDOH University o f Alcohol Frequency [facility] edical Branch History SDOH University o f Alcohol Std Drinks [facility] History SDMT University o f Alcohol Binge [facility] [place] Gender identity Universit y of [facility] Sexual orientation Univer sity of [facility] Alcohol intake 2023-05-03 2023-05-03 Current drinker Unive rsity of 00:00:00 00:00:00 of alcohol [facility] (finding) Branch Exposure to 2022-11-29 2022-12-09 Not sure University SARS-CoV-2 (event) 00:00:00 13:34:00 [facility] History of Social 2022-10-06 2022-10-06 Univers ity of function 00:00:00 00:00:00 [facility] Tobacco use and 2022-08-24 2022-08-24 Smokeless tobacco Un iversity of exposure 00:00:00 00:00:00 non-user [facility] Alcohol Comment 2015-09-29 2015-09-29 occasional Universit y of 00:00:00 00:00:00 [facility] History of tobacco 2008-09-29 Cigarette Smoker [facility] 00:00:00 [facility] Sex [birth year] [facility] 00:00:00 00:00:00 [facility] Smoking Status Start Date Stop Date Source Ex-smoker 2022-08-24 00:00:00 2022-08-24 00:00:00 [facility] Medications Ordered Filled Start Stop Current Ordering Indication Dosage Frequency Signature Comments Components Source Medication Medication Date Date Medication? Clinician (SIG) Name Name triamcinolo 2022- No [id number] 40mg U nivers ne 05-03 ity of acetonide 16:15: 15:12 [place] (KENALOG) 00 :00 Medical injection Branch 40 mg triamcinolo 2022- No [id number] 40mg 40 mg, Univers ne 05-03 Intramuscu ity of acetonide 16:15: 15:12 [place], ONCE, [place] ([place] 00 :00 1 dose, On Medi zan injection Wed Branch 40 mg 05/03/23 at 1115, Routine triamcinolo 2022- No [id number] 40mg U nivers ne 05-03 ity of acetonide 16:15: 15:12 [place] (KENALOG) 00 :00 Medical injection Branch 40 mg triamcinolo 2022- No [id number] 40mg 40 mg, Univers ne 05-03 Intramuscu ity of acetonide 16:15: 15:12 [place], ONCE, [place] (KE[place]LOG) 00 :00 1 dose, On Medi zan injection Wed Branch 40 mg 05/03/23 at 1115, Routine methylPREDN 2022- No [id number] 80mg U nivers ISolone 05-03 ity of acetate 16:00: 15:21 [place] (DEPO-MEDRO 00 :00 Medical L) Branch injection 80 mg methylPREDN 2022- No [id number] 80mg 80 mg, Univers ISolone 05-03 Intramuscu ity o f acetate 16:00: 15:21 lar, ONCE, [place] (DEPO-MEDRO 00 :00 1 dose, On Me dical L) Wed Branch injection 05/03/23 at 80 mg 1100, Routine methylPREDN 2022-0 2022- No [id number] 80mg U nivers ISolone 05-03 ity of acetate 16:00: 15:21 [place] (DEPO-MEDRO 00 :00 Medical L) Branch injection 80 mg methylPREDN 2022-0 2022- No [id number] 80mg 80 mg, Univers ISolone 05-03 Intramuscu ity o f acetate 16:00: 15:21 lar, ONCE, [place] (DEPO-MEDRO 00 :00 1 dose, On Me dical L) Wed Branch injection 05/03/23 at 80 mg 1100, Routine semaglutide 2022-0 Yes [id number] .5mg inject 0.5 Univers (OZEMPIC) 7-31 mg under ity of 0.25 mg or 00:00: the skin [place] 0.5 mg (2 00 weekly. Medical mg/3 mL) Branch PnIj semaglutide 2022-0 Yes [id number] .5mg inject 0.5 Univers (OZEMPIC) 7-31 mg under ity of 0.25 mg or 00:00: the skin [place] 0.5 mg (2 00 weekly. Medical mg/3 mL) Branch PnIj semaglutide 2022-0 Yes [id number] .5mg inject 0.5 Univers (OZEMPIC) 7-31 mg under ity of 0.25 mg or 00:00: the skin [place] 0.5 mg (2 00 weekly. Medical mg/3 mL) Branch PnIj semaglutide 2022-0 Yes [id number] .5mg inject 0.5 Univers (OZEMPIC) 7-31 mg under ity of 0.25 mg or 00:00: the skin [place] 0.5 mg (2 00 weekly. Medical mg/3 mL) Branch PnIj semaglutide 2022-0 Yes [id number] .5mg inject 0.5 Univers (OZEMPIC) 7-31 mg under ity of 0.25 mg or 00:00: the skin [place] 0.5 mg (2 00 weekly. Medical mg/3 mL) Branch PnIj semaglutide 2022-0 Yes [id number] .5mg inject 0.5 Univers (OZEMPIC) 7-31 mg under ity of 0.25 mg or 00:00: the skin [place] 0.5 mg (2 00 weekly. Medical mg/3 mL) Branch SudarshanJulian semaglutide 2022-0 Yes [id number] .5mg inject 0.5 Univers (OZEMPIC) 7-31 mg under ity of 0.25 mg or 00:00: the skin [place] 0.5 mg (2 00 weekly. Medical mg/3 mL) Branch SudarshanJulian semaglutide 2022-0 Yes [id number] .5mg inject 0.5 Univers (OZEMPIC) 7-31 mg under ity of 0.25 mg or 00:00: the skin [place] 0.5 mg (2 00 weekly. Medical mg/3 mL) Branch SudarshanJulian semaglutide 2022-0 Yes [id number] .5mg inject 0.5 Univers (OZEMPIC) 7-31 mg under ity of 0.25 mg or 00:00: the skin [place] 0.5 mg (2 00 weekly. Medical mg/3 mL) Branch SudarshanJulian semaglutide 2022-0 Yes [id number] .5mg inject 0.5 Univers (OZEMPIC) 7-31 mg under ity of 0.25 mg or 00:00: the skin [place] 0.5 mg (2 00 weekly. Medical mg/3 mL) Branch SudarshanJulian semaglutide 2022-0 Yes [id number] .5mg inject 0.5 Univers (OZEMPIC) 7-31 mg under ity of 0.25 mg or 00:00: the skin [place] 0.5 mg (2 00 weekly. Medical mg/3 mL) Branch Blaise iopamidol 2022-2022- No [id number] 100mL 100 mL, Univers (ISOVUE 02-24 Intravenou ity o f 370-500 mL) 05:45: 05:45 s, ONCE, 1 [place] injection 00 :00 dose, On Medica l 100 mL Fri Branch 02/24/23 at 0045, Routine acetaminoph 2022- No 1000mg 1,000 mg, Univers en 02-24 Oral, ity of (TYLENOL) 04:15: 03:05 ONCE, 1 [place] tablet 00 :00 dose, On Medical 1,000 mg Ita Branch 02/23/23 at 2315, Routine NaCl 0.9% 2022-0 202- No 1000mL at 999 Uni vers (NS) bolus 02-24-16 mL/hr, ity of infusion 03:30: 04:00 1,000 mL, [place] 1,000 mL 00 :00 IV Medical Infusion, Branch ONCE, 1 dose, On Ita 02/23/23 at 2230, STAT proMETHazin 2022-0 2022- No 12.5mg 12.5 mg, Univers e 02-2416 IV ity of (PHENERGAN) 02:30: 02:56 Piggyback, [place] 12.5 mg in 00 :00 ONCE, 1 Medica l NaCl 0.9% dose, On Branch (NS) 50 mL Ita IV 02/23/23 at piggyback 2130, GRACIELA proMETHazin 2022-0 Yes [id number] 25mg Take 1 Univers e 25 mg 6-16 tablet by ity of tablet 00:00: mouth [place] 00 every 6 Medical (six) Branch hours as needed for Nausea and Vomiting (N/V). proMETHazin 2023-0 Yes [id number] 25mg Take 1 Univers e 25 mg 6-16 tablet by ity of tablet 00:00: mouth [place] 00 every 6 Medical (six) Branch hours as needed for Nausea and Vomiting (N/V). proMETHazin 2023-0 Yes [id number] 25mg Take 1 Univers e 25 mg 6-16 tablet by ity of tablet 00:00: mouth [place] 00 every 6 Medical (six) Branch hours as needed for Nausea and Vomiting (N/V). proMETHazin 2023-0 Yes [id number] 25mg Take 1 Univers e 25 mg 6-16 tablet by ity of tablet 00:00: mouth [place] 00 every 6 Medical (six) Branch hours as needed for Nausea and Vomiting (N/V). proMETHazin 2023-0 Yes [id number] 25mg Take 1 Univers e 25 mg 6-16 tablet by ity of tablet 00:00: mouth [place] 00 every 6 Medical (six) Branch hours as needed for Nausea and Vomiting (N/V). proMETHazin 2023-0 Yes [id number] 25mg Take 1 Univers e 25 mg 6-16 tablet by ity of tablet 00:00: mouth [place] 00 every 6 Medical (six) Branch hours as needed for Nausea and Vomiting (N/V). proMETHazin 3-0 Yes [id number] 25mg Take 1 Univers e 25 mg 6-16 tablet by ity of tablet 00:00: mouth [place] 00 every 6 Medical (six) Branch hours as needed for Nausea and Vomiting (N/V). proMETHazin 3-0 Yes [id number] 25mg Take 1 Univers e 25 mg 6-16 tablet by ity of tablet 00:00: mouth [place] 00 every 6 Medical (six) Branch hours as needed for Nausea and Vomiting (N/V). proMETHazin 2022-0 Yes [id number] 25mg Take 1 Univers e 25 mg 6-16 tablet by ity of tablet 00:00: mouth [place] 00 every 6 Medical (six) Branch hours as needed for Nausea and Vomiting (N/V). proMETHazin 2022-0 Yes [id number] 25mg Take 1 Univers e 25 mg 6-16 tablet by ity of tablet 00:00: mouth [place] 00 every 6 Medical (six) Branch hours as needed for Nausea and Vomiting (N/V). proMETHazin 2022-0 Yes [id number] 25mg Take 1 Univers e 25 mg 6-16 tablet by ity of tablet 00:00: mouth [place] 00 every 6 Medical (six) Branch hours as needed for Nausea and Vomiting (N/V). proMETHazin 2022-0 Yes [id number] 25mg Take 1 Univers e 25 mg 6-16 tablet by ity of tablet 00:00: mouth [place] 00 every 6 Medical (six) Branch hours as needed for Nausea and Vomiting (N/V). NaCl 0.9% 2022- No 1000mL at 999 Uni vers (NS) bolus 02-23-16 mL/hr, ity of infusion 23:30: 00:48 1,000 [...] 02/23/23 at 1730, GRACIELA triamcinolo 2022- No [id number] 40mg Univers ne 02-13 ity of acetonide 16:15: 15:21 [place] (KENALOG) 00 :00 Medical injection Branch 40 mg triamcinolo 2022- No [id number] 40mg 40 mg, Univers ne 02-13 Intramuscu ity of acetonide 16:15: 15:21 [place], ONCE, [place] (KE[place]LOG) 00 :00 1 dose, On Medi zan injection Mon02/13/23 Bran ch 40 mg at 1115, Routine triamcinolo 2022- No [id number] 40mg Univers ne 02-13 ity of acetonide 16:15: 15:21 [place] (KENALOG) 00 :00 Medical injection Branch 40 mg triamcinolo 2022- No [id number] 40mg 40 mg, Univers ne 02-13 Intramuscu ity of acetonide 16:15: 15:21 [place], ONCE, [place] (KENALOG) 00 :00 1 dose, On Medi zan injection Mon02/13/23 Bran ch 40 mg at 1115, Routine methylPREDN 0 2022- No [id number] 80mg Univers ISolone 02-13- ity of acetate 16:00: 15:20 [place] (DEPO-MEDRO 00 :00 Medical L) Branch injection 80 mg methylPREDN 0 2022- No [id number] 80mg 80 mg, Univers ISolone 02-13 Intramuscu ity o f acetate 16:00: 15:20 [place], ONCE, [place] (DEPO-MEDRO 00 :00 1 dose, On Me dical L) Mon02/13/23 Branch injection at 1100, 80 mg Routine methylPREDN 0 2022- No [id number] 80mg Univers ISolone 02-13 ity of acetate 16:00: 15:20 [place] (DEPO-MEDRO 00 :00 Medical L) Branch injection 80 mg methylPREDN 0 2022- No [id number] 80mg 80 mg, Univers ISolone 02-13-05 Intramuscu ity o f acetate 16:00: 15:20 lar, ONCE, [place] (DEPO-MEDRO 00 :00 1 dose, On Me dical L) 02/13/23 Branch injection at 1100, 80 mg Routine tretinoin 2022-0 Yes [id number] Apply to Univers 0.025 % 6-05 area(s) at ity of cream 00:00: bedtime. [address] semaglutide 0 Yes [id number] .25mg inject Univers (OZEMPIC) 6-05 0.25 mg ity of 0.25 mg or 00:00: under [place] 0.5 mg (2 00 skin Medical mg/3 mL) weekly. Branch PnIj tretinoin 2022-0 Yes [id number] Apply to Univers 0.025 % 6-05 area(s) at ity of cream 00:00: bedtime. [address] semaglutide 0 Yes [id number] .25mg inject Univers (OZEMPIC) 6-05 0.25 mg ity of 0.25 mg or 00:00: under the [place] 0.5 mg (2 00 skin Medical mg/3 mL) weekly. Branch PnIj tretinoin 2022-0 Yes [id number] Apply to Univers 0.025 % 6-05 area(s) at ity of cream 00:00: bedtime. [address] semaglutide 0 Yes [id number] .25mg inject Univers (OZEMPIC) 6-05 0.25 mg ity of 0.25 mg or 00:00: under the [place] 0.5 mg (2 00 skin Medical mg/3 mL) weekly. Branch PnIj tretinoin 2022-0 Yes [id number] Apply to Univers 0.025 % 6-05 area(s) at ity of cream 00:00: bedtime. [address] semaglutide 0 Yes [id number] .25mg inject Univers (OZEMPIC) 6-05 0.25 mg ity of 0.25 mg or 00:00: under the [place] 0.5 mg (2 00 skin Medical mg/3 mL) weekly. Branch PnIj tretinoin 2022-0 Yes [id number] Apply to Univers 0.025 % 6-05 area(s) at ity of cream 00:00: bedtime. [address] semaglutide 0 Yes [id number] .25mg inject Univers (OZEMPIC) 6-05 0.25 mg ity of 0.25 mg or 00:00: under the [place] 0.5 mg (2 00 skin Medical mg/3 mL) weekly. Branch PnIj tretinoin 2022-0 Yes [id number] Apply to Univers 0.025 % 6-05 area(s) at ity of cream 00:00: bedtime. [address] semaglutide 2022-0 Yes [id number] .25mg inject Univers (OZEMPIC) 6-05 0.25 mg ity of 0.25 mg or 00:00: under the [place] 0.5 mg (2 00 skin Medical mg/3 mL) weekly. Branch PnIj tretinoin 2022-0 Yes [id number] Apply to Univers 0.025 % 6-05 area(s) at ity of cream 00:00: bedtime. [address] semaglutide 2022-0 Yes [id number] .25mg inject Univers (OZEMPIC) 6-05 0.25 mg ity of 0.25 mg or 00:00: under the [place] 0.5 mg (2 00 skin Medical mg/3 mL) weekly. Branch PnIj tretinoin 2022-0 Yes [id number] Apply to Univers 0.025 % 6-05 area(s) at ity of cream 00:00: bedtime. [address] semaglutide 2022-0 Yes [id number] .25mg inject Univers (OZEMPIC) 6-05 0.25 mg ity of 0.25 mg or 00:00: under the [place] 0.5 mg (2 00 skin Medical mg/3 mL) weekly. Branch PnIj tretinoin 2022-0 Yes [id number] Apply to Univers 0.025 % 6-05 area(s) at ity of cream 00:00: bedtime. [address] semaglutide 2022-0 Yes [id number] .25mg inject Univers (OZEMPIC) 6-05 0.25 mg ity of 0.25 mg or 00:00: under the [place] 0.5 mg (2 00 skin Medical mg/3 mL) weekly. Branch PnIj tretinoin 2022-0 Yes [id number] Apply to Univers 0.025 % 6-05 area(s) at ity of cream 00:00: bedtime. [address] semaglutide 2022-0 Yes [id number] .25mg inject Univers (OZEMPIC) 6-05 0.25 mg ity of 0.25 mg or 00:00: under the [place] 0.5 mg (2 00 skin Medical mg/3 mL) weekly. Branch PnIj tretinoin 2022-0 Yes [id number] Apply to Univers 0.025 % 6-05 area(s) at ity of cream 00:00: bedtime. [address] semaglutide 2022-0 Yes [id number] .25mg inject Univers (OZEMPIC) 6-05 0.25 mg ity of 0.25 mg or 00:00: under the [place] 0.5 mg (2 00 skin Medical mg/3 mL) weekly. Branch PnIj tretinoin 2022-0 Yes [id number] Apply to Univers 0.025 % 6-05 area(s) at ity of cream 00:00: bedtime. [address] semaglutide 2022-0 Yes [id number] .25mg inject Univers (OZEMPIC) 6-05 0.25 mg ity of 0.25 mg or 00:00: under the [place] 0.5 mg (2 00 skin Medical mg/3 mL) weekly. Branch PnIj tretinoin 2022-0 Yes [id number] Apply to Univers 0.025 % 6-05 area(s) at ity of cream 00:00: bedtime. [address] semaglutide 2022-0 Yes [id number] .25mg inject Univers (OZEMPIC) 6-05 0.25 mg ity of 0.25 mg or 00:00: under the [place] 0.5 mg (2 00 skin Medical mg/3 mL) weekly. Branch PnIj tretinoin 2022-0 Yes [id number] Apply to Univers 0.025 % 6-05 area(s) at ity of cream 00:00: bedtime. [address] semaglutide 0 Yes [id number] .25mg inject Univers (OZEMPIC) 6-05 0.25 mg ity of 0.25 mg or 00:00: under the [place] 0.5 mg (2 00 skin Medical mg/3 mL) weekly. Branch PnIj tretinoin 2022-0 Yes [id number] Apply to Univers 0.025 % 6-05 area(s) at ity of cream 00:00: bedtime. [place] [address] Medical Branch semaglutide 2022-0 Yes [id number] .25mg inject Univers (OZEMPIC) 6-05 0.25 mg ity of 0.25 mg or 00:00: under [place] 0.5 mg (2 00 skin Medical mg/3 mL) weekly. Branch PnIj tretinoin 2022-0 Yes [id number] Apply to Univers 0.025 % 6-05 area(s) at ity of cream 00:00: bedtime. [place] [address] Medical Branch tretinoin 2022-0 Yes [id number] Apply to Univers 0.025 % 6-05 area(s) at ity of cream 00:00: bedtime. [place] [address] Medical Branch tretinoin 2022-0 Yes [id number] Apply to Univers 0.025 % 6-05 area(s) at ity of cream 00:00: bedtime. [place] [address] Medical Branch tretinoin 2022-0 Yes [id number] Apply to Univers 0.025 % 6-05 area(s) at ity of cream 00:00: bedtime. [place] [address] Medical Branch tretinoin 2022-0 Yes [id number] Apply to Univers 0.025 % 6-05 area(s) at ity of cream 00:00: bedtime. [place] [address] Medical Branch tretinoin 2022-0 Yes [id number] Apply to Univers 0.025 % 6-05 area(s) at ity of cream 00:00: bedtime. [place] [address] Medical Branch semaglutide 2022-0 3- No [id number] .25mg inject Univers (OZEMPIC) 6-05 07-31 0.25 mg ity of 0.25 mg or 00:00: 00:00 under the [place] 0.5 mg (2 00 :00 skin Medical mg/3 mL) weekly. Branch PnIj OMEPRAZOLE 2022-0 Yes [id number] TAKE 1 Univers 20 mg 5-10 CAPSULE BY ity of capsule 00:00: MOUTH [place] [address] EVERY DAY Medical Branch OMEPRAZOLE 2022-0 Yes [id number] TAKE 1 Univers 20 mg 5-10 CAPSULE BY ity of capsule 00:00: MOUTH [place] 00 EVERY DAY Medical Branch OMEPRAZOLE 2023-0 Yes [id number] TAKE 1 Univers 20 mg 5-10 CAPSULE BY ity of capsule 00:00: MOUTH [place] 00 EVERY DAY Medical Branch OMEPRAZOLE 2023-0 Yes [id number] TAKE 1 Univers 20 mg 5-10 CAPSULE BY ity of capsule 00:00: MOUTH [place] 00 EVERY DAY Medical Branch OMEPRAZOLE 2023-0 Yes [id number] TAKE 1 Univers 20 mg 5-10 CAPSULE BY ity of capsule 00:00: MOUTH [place] 00 EVERY DAY Medical Branch OMEPRAZOLE 2023-0 Yes [id number] TAKE 1 Univers 20 mg 5-10 CAPSULE BY ity of capsule 00:00: MOUTH [place] 00 EVERY DAY Medical Branch OMEPRAZOLE 2023-0 Yes [id number] TAKE 1 Univers 20 mg 5-10 CAPSULE BY ity of capsule 00:00: MOUTH [place] 00 EVERY DAY Medical Branch OMEPRAZOLE 2023-0 Yes [id number] TAKE 1 Univers 20 mg 5-10 CAPSULE BY ity of capsule 00:00: MOUTH [place] 00 EVERY DAY Medical Branch OMEPRAZOLE 2023-0 Yes [id number] TAKE 1 Univers 20 mg 5-10 CAPSULE BY ity of capsule 00:00: MOUTH [place] 00 EVERY DAY Medical Branch OMEPRAZOLE 2023-0 Yes [id number] TAKE 1 Univers 20 mg 5-10 CAPSULE BY ity of capsule 00:00: MOUTH [place] 00 EVERY DAY Medical Branch OMEPRAZOLE 2023-0 Yes [id number] TAKE 1 Univers 20 mg 5-10 CAPSULE BY ity of capsule 00:00: MOUTH [place] 00 EVERY DAY Medical Branch OMEPRAZOLE 2023-0 Yes [id number] TAKE 1 Univers 20 mg 5-10 CAPSULE BY ity of capsule 00:00: MOUTH [place] 00 EVERY DAY Medical Branch OMEPRAZOLE 2023-0 Yes [id number] TAKE 1 Univers 20 mg 5-10 CAPSULE BY ity of capsule 00:00: MOUTH [place] 00 EVERY DAY Medical Branch OMEPRAZOLE 2023-0 Yes [id number] TAKE 1 Univers 20 mg 5-10 CAPSULE BY ity of capsule 00:00: MOUTH [place] 00 EVERY DAY Medical Branch OMEPRAZOLE 2023-0 Yes [id number] TAKE 1 Univers 20 mg 5-10 CAPSULE BY ity of capsule 00:00: MOUTH [place] 00 EVERY DAY Medical Branch OMEPRAZOLE 2023-0 Yes [id number] TAKE 1 Univers 20 mg 5-10 CAPSULE BY ity of capsule 00:00: MOUTH [place] 00 EVERY DAY Medical Branch OMEPRAZOLE 2023-0 Yes [id number] TAKE 1 Univers 20 mg 5-10 CAPSULE BY ity of capsule 00:00: MOUTH [place] 00 EVERY DAY Medical Branch OMEPRAZOLE 2023-0 Yes [id number] TAKE 1 Univers 20 mg 5-10 CAPSULE BY ity of capsule 00:00: MOUTH [place] EVERY DAY Medical Branch OMEPRAZOLE 2023-0 Yes [id number] TAKE 1 Univers 20 mg 5-10 CAPSULE BY ity of capsule 00:00: MOUTH [place] 00 EVERY DAY Medical Branch OMEPRAZOLE 2023-0 Yes [id number] TAKE 1 Univers 20 mg 5-10 CAPSULE BY ity of capsule 00:00: MOUTH [place] 00 EVERY DAY Medical Branch OMEPRAZOLE 2023-0 Yes [id number] TAKE 1 Univers 20 mg 5-10 CAPSULE BY ity of capsule 00:00: MOUTH [place] 00 EVERY DAY Medical Branch OMEPRAZOLE 2023-0 Yes [id number] TAKE 1 Univers 20 mg 5-10 CAPSULE BY ity of capsule 00:00: MOUTH [place] 00 EVERY DAY Medical Branch triamcinolo 2022-0 2022- No [id number] 40mg Univers ne 11-24 ity of acetonide 18:15: 17:42 [place] (KENALOG) 00 :00 Medical injection Branch 40 mg triamcinolo 2022- No [id number] 40mg 40 mg, Univers ne 11-24 Intramuscu ity of acetonide 18:15: 17:42 [place], ONCE, [place] (KENALOG) 00 :00 1 dose, On Medi zan injection Ita Branch 40 mg 11/24/22 at 1315, Routine triamcinolo 2022- No [id number] 40mg Univers ne 11-24 ity of acetonide 18:15: 17:42 [place] (KENALOG) 00 :00 Medical injection Branch 40 mg triamcinolo 2022- No [id number] 40mg 40 mg, Univers ne 11-24 Intramuscu ity of acetonide 18:15: 17:42 [place], ONCE, [place] (KENALOG) 00 :00 1 dose, On Medi zan injection Ita Branch 40 mg 11/24/22 at 1315, Routine methylPREDN 2022-0 2022- No [id number] 80mg Univers ISolone 11-24 ity of acetate 18:00: 17:41 [place] (DEPO-MEDRO 00 :00 Medical L) Branch injection 80 mg methylPREDN 0 2022- No [id number] 80mg 80 mg, Univers ISolone 11-24 Intramuscu ity o f acetate 18:00: 17:41 [place], ONCE, [place] (DEPO-MEDRO 00 :00 1 dose, On Me dical L) [place] [facility] injection 11/24/22 at 80 mg 1300, Routine methylPREDN 0 2022- No [id number] 80mg [facility] ISolone 11-24 ity of acetate 18:00: 17:41 [place] (DEPO-MEDRO 00 :00 Medical L) Branch injection 80 mg methylPREDN 0 2022- No [id number] 80mg 80 mg, [facility] ISolone 11-24 Intramuscu ity o f acetate 18:00: 17:41 [place], ONCE, [place] (DEPO-MEDRO 00 :00 1 dose, On Me dical L) [place] [facility] injection 11/24/22 at 80 mg 1300, Routine diclofenac 0 Yes [id number] 50mg Take 1 [facility] 50 mg EC 3-16 tablet by ity of tablet 00:00: mouth in [place] [address] the Medical morning Branch and 1 tablet in the evening. Take with meals. fluocinonid 2022-0 Yes [id number] Apply to Univers e 0.05 % 3-16 area(s) 2 ity of cream 00:00: (two) [place] 00 times Medical daily. Branch diclofenac 2022-0 Yes [id number] 50mg Take 1 [facility] 50 mg EC 3-16 tablet by ity of tablet 00:00: mouth in [place] the Medical morning Branch and 1 tablet in the evening. Take with meals. fluocinonid 2022-0 Yes [id number] Apply to Univers e 0.05 % 3-16 area(s) 2 ity of cream 00:00: (two) [place] 00 times Medical daily. Branch diclofenac 2022-0 Yes [id number] 50mg Take 1 [facility] 50 mg EC 3-16 tablet by ity of tablet 00:00: mouth in [place] 00 the Medical morning Branch and 1 tablet in the evening. Take with meals. fluocinonid 2023-0 Yes [id number] Apply to Univers e 0.05 % 3-16 area(s) 2 ity of cream 00:00: (two) [place] 00 times Medical daily. Branch diclofenac 2023-0 Yes [id number] 50mg Take 1 [facility] 50 mg EC 3-16 tablet by ity of tablet 00:00: mouth in [place] 00 the Medical morning Branch and 1 tablet in the evening. Take with meals. fluocinonid 2023-0 Yes [id number] Apply to Univers e 0.05 % 3-16 area(s) 2 ity of cream 00:00: (two) [place] 00 times Medical daily. Branch diclofenac 2023-0 Yes [id number] 50mg Take 1 [facility] 50 mg EC 3-16 tablet by ity of tablet 00:00: mouth in [place] [address] the Medical morning Branch and 1 tablet in the evening. Take with meals. fluocinonid 3-0 Yes [id number] Apply to Univers e 0.05 % 3-16 area(s) 2 ity of cream 00:00: (two) [place] 00 times Medical daily. Branch diclofenac 3-0 Yes [id number] 50mg Take 1 [facility] 50 mg EC 3-16 tablet by ity of tablet 00:00: mouth in [place] the Medical morning Branch and 1 tablet in the evening. Take with meals. fluocinonid 3-0 Yes [id number] Apply to Univers e 0.05 % 3-16 area(s) 2 ity of cream 00:00: (two) [place] 00 times Medical daily. Branch diclofenac 2023-0 Yes [id number] 50mg Take 1 [facility] 50 mg EC 3-16 tablet by ity of tablet 00:00: mouth in [place] [address] the Medical morning Branch and 1 tablet in the evening. Take with meals. fluocinonid 2023-0 Yes [id number] Apply to Univers e 0.05 % 3-16 area(s) 2 ity of cream 00:00: (two) [place] 00 times Medical daily. Branch diclofenac 2023-0 Yes [id number] 50mg Take 1 [facility] 50 mg EC 3-16 tablet by ity of tablet 00:00: mouth in [place] [address] the Medical morning Branch and 1 tablet in the evening. Take with meals. fluocinonid 2023-0 Yes [id number] Apply to Univers e 0.05 % 3-16 area(s) 2 ity of cream 00:00: (two) [place] 00 times Medical daily. Branch diclofenac 3-0 Yes [id number] 50mg Take 1 [facility] 50 mg EC 3-16 tablet by ity of tablet 00:00: mouth in [place] 00 the Medical morning Branch and 1 tablet in the evening. Take with meals. fluocinonid 2022-0 Yes [id number] Apply to Univers e 0.05 % 3-16 area(s) 2 ity of cream 00:00: (two) [place] 00 times Medical daily. Branch diclofenac 2022-0 Yes [id number] 50mg Take 1 [facility] 50 mg EC 3-16 tablet by ity of tablet 00:00: mouth in [place] 00 the Medical morning Branch and 1 tablet in the evening. Take with meals. fluocinonid 2022-0 Yes [id number] Apply to Univers e 0.05 % 3-16 area(s) 2 ity of cream 00:00: (two) [place] 00 times Medical daily. Branch diclofenac 2022-0 Yes [id number] 50mg Take 1 [facility] 50 mg EC 3-16 tablet by ity of tablet 00:00: mouth in [place] 00 the Medical morning Branch and 1 tablet in the evening. Take with meals. fluocinonid 2022-0 Yes [id number] Apply to Univers e 0.05 % 3-16 area(s) 2 ity of cream 00:00: (two) [place] 00 times Medical daily. Branch diclofenac 3-0 Yes [id number] 50mg Take 1 [facility] 50 mg EC 3-16 tablet by ity of tablet 00:00: mouth in [place] [address] the Medical morning Branch and 1 tablet in the evening. Take with meals. fluocinonid 3-0 Yes [id number] Apply to [facility] e 0.05 % 3-16 area(s) 2 ity of cream 00:00: (two) [place] 00 times Medical daily. Branch diclofenac 3-0 Yes [id number] 50mg Take 1 [facility] 50 mg EC 3-16 tablet by ity of tablet 00:00: mouth in [place] [address] the Medical morning Branch and 1 tablet in the evening. Take with meals. fluocinonid 3-0 Yes [id number] Apply to [facility] e 0.05 % 3-16 area(s) 2 ity of cream 00:00: (two) [place] 00 times Medical daily. Branch diclofenac 2023-0 Yes [id number] 50mg Take 1 [facility] 50 mg EC 3-16 tablet by ity of tablet 00:00: mouth in [place] 00 the Medical morning Branch and 1 tablet in the evening. Take with meals. fluocinonid 2023-0 Yes [id number] Apply to [facility] e 0.05 % 3-16 area(s) 2 ity of cream 00:00: (two) [place] 00 times Medical daily. Branch diclofenac 2023-0 Yes [id number] 50mg Take 1 [facility] 50 mg EC 3-16 tablet by ity of tablet 00:00: mouth in [place] 00 the Medical morning Branch and 1 tablet in the evening. Take with meals. fluocinonid 2023-0 Yes [id number] Apply to [facility] e 0.05 % 3-16 area(s) 2 ity of cream 00:00: (two) [place] 00 times Medical daily. Branch diclofenac 3-0 Yes [id number] 50mg Take 1 [facility] 50 mg EC 3-16 tablet by ity of tablet 00:00: mouth in [place] 00 the Medical morning Branch and 1 tablet in the evening. Take with meals. fluocinonid 3-0 Yes [id number] Apply to [facility] e 0.05 % 3-16 area(s) 2 ity of cream 00:00: (two) [place] 00 times Medical daily. Branch diclofenac 2023-0 Yes [id number] 50mg Take 1 [facility] 50 mg EC 3-16 tablet by ity of tablet 00:00: mouth in [place] 00 the Medical morning Branch and 1 tablet in the evening. Take with meals. fluocinonid 2023-0 Yes [id number] Apply to [facility] e 0.05 % 3-16 area(s) 2 ity of cream 00:00: (two) [place] 00 times Medical daily. Branch diclofenac 2023-0 Yes [id number] 50mg Take 1 [facility] 50 mg EC 3-16 tablet by ity of tablet 00:00: mouth in [place] 00 the Medical morning Branch and 1 tablet in the evening. Take with meals. fluocinonid 2023-0 Yes [id number] Apply to [facility] e 0.05 % 3-16 area(s) 2 ity of cream 00:00: (two) [place] 00 times Medical daily. Branch diclofenac 2023-0 Yes [id number] 50mg Take 1 [facility] 50 mg EC 3-16 tablet by ity of tablet 00:00: mouth in [place] 00 the Medical morning Branch and 1 tablet in the evening. Take with meals. fluocinonid 3-0 Yes [id number] Apply to [facility] e 0.05 % 3-16 area(s) 2 ity of cream 00:00: (two) [place] 00 times Medical daily. Branch diclofenac 3-0 Yes [id number] 50mg Take 1 [facility] 50 mg EC 3-16 tablet by ity of tablet 00:00: mouth in [place] 00 the Medical morning Branch and 1 tablet in the evening. Take with meals. fluocinonid 3-0 Yes [id number] Apply to [facility] e 0.05 % 3-16 area(s) 2 ity of cream 00:00: (two) [place] 00 times Medical daily. Branch diclofenac 3-0 Yes [id number] 50mg Take 1 [facility] 50 mg EC 3-16 tablet by ity of tablet 00:00: mouth in [place] [address] the Medical morning Branch and 1 tablet in the evening. Take with meals. fluocinonid 3-0 Yes [id number] Apply to [facility] e 0.05 % 3-16 area(s) 2 ity of cream 00:00: (two) [place] 00 times Medical daily. Branch diclofenac 3-0 Yes [id number] 50mg Take 1 [facility] 50 mg EC 3-16 tablet by ity of tablet 00:00: mouth in [place] [address] the Medical morning Branch and 1 tablet in the evening. Take with meals. fluocinonid 3-0 Yes [id number] Apply to [facility] e 0.05 % 3-16 area(s) 2 ity of cream 00:00: (two) [place] 00 times Medical daily. Branch diclofenac 3-0 Yes [id number] 50mg Take 1 [facility] 50 mg EC 3-16 tablet by ity of tablet 00:00: mouth in [place] 00 the Medical morning Branch and 1 tablet in the evening. Take with meals. fluocinonid 2023-0 Yes [id number] Apply to [facility] e 0.05 % 3-16 area(s) 2 ity of cream 00:00: (two) [place] 00 times Medical daily. Branch diclofenac 2023-0 Yes [id number] 50mg Take 1 [facility] 50 mg EC 3-16 tablet by ity of tablet 00:00: mouth in [place] 00 the Medical morning Branch and 1 tablet in the evening. Take with meals. fluocinonid Yes [id number] Apply to [facility] e 0.05 % 3-16 area(s) 2 ity of cream 00:00: (two) [place] 00 times Medical daily. Branch diclofenac Yes [id number] 50mg Take 1 [facility] 50 mg EC 3-16 tablet by ity of tablet 00:00: mouth in [place] 00 the Medical morning Branch and 1 tablet in the evening. Take with meals. fluocinonid Yes [id number] Apply to [facility] e 0.05 % 3-16 area(s) 2 ity of cream 00:00: (two) [place] 00 times Medical daily. Branch diclofenac Yes [id number] 50mg Take 1 [facility] 50 mg EC 3-16 tablet by ity of tablet 00:00: mouth in [place] 00 the Medical morning Branch and 1 tablet in the evening. Take with meals. fluocinonid Yes [id number] Apply to [facility] e 0.05 % 3-16 area(s) 2 ity of cream 00:00: (two) [place] 00 times Medical daily. Branch BREO Yes [id number] 1{puff} INHALE 1 U nivers ELLIPTA 2-15 PUFF DAILY ity of 100-25 00:00: [place] mcg/dose 00 Medical DsDv Branch BREO 0 Yes [id number] 1{puff} INHALE 1 U nivers ELLIPTA 2-15 PUFF DAILY ity of 100-25 00:00: [place] mcg/dose 00 Medical DsDv Branch BREO 2022-0 Yes [id number] 1{puff} INHALE 1 U nivers ELLIPTA 2-15 PUFF DAILY ity of 100-25 00:00: [place] mcg/dose 00 Medical DsDv Branch BREO 0 Yes [id number] 1{puff} INHALE 1 U nivers ELLIPTA 2-15 PUFF DAILY ity of 100-25 00:00: [place] mcg/dose 00 Medical DsDv Branch BREO 2022-0 Yes [id number] 1{puff} INHALE 1 U nivers ELLIPTA 2-15 PUFF DAILY ity of 100-25 00:00: [place] mcg/dose 00 Medical DsDv Branch BREO 2022-0 Yes [id number] 1{puff} INHALE 1 U nivers ELLIPTA 2-15 PUFF DAILY ity of 100-25 00:00: [place] mcg/dose 00 Medical DsDv Branch BREO 2022-0 Yes [id number] 1{puff} INHALE 1 U nivers ELLIPTA 2-15 PUFF DAILY ity of 100-25 00:00: [place] mcg/dose 00 Medical DsDv Branch BREO 2022-0 Yes [id number] 1{puff} INHALE 1 U nivers ELLIPTA 2-15 PUFF DAILY ity of 100-25 00:00: [place] mcg/dose 00 Medical DsDv Branch BREO 2022-0 Yes [id number] 1{puff} INHALE 1 U nivers ELLIPTA 2-15 PUFF DAILY ity of 100-25 00:00: [place] mcg/dose 00 Medical DsDv Branch BREO 2022-0 Yes [id number] 1{puff} INHALE 1 U nivers ELLIPTA 2-15 PUFF DAILY ity of 100-25 00:00: [place] mcg/dose 00 Medical DsDv Branch BREO 2022-0 Yes [id number] 1{puff} INHALE 1 U nivers ELLIPTA 2-15 PUFF DAILY ity of 100-25 00:00: [place] mcg/dose 00 Medical DsDv Branch BREO 2022-0 Yes [id number] 1{puff} INHALE 1 U nivers ELLIPTA 2-15 PUFF DAILY ity of 100-25 00:00: [place] mcg/dose 00 Medical DsDv Branch BREO 2022-0 Yes [id number] 1{puff} INHALE 1 U nivers ELLIPTA 2-15 PUFF DAILY ity of 100-25 00:00: [place] mcg/dose 00 Medical DsDv Branch BREO 2022-0 Yes [id number] 1{puff} INHALE 1 U nivers ELLIPTA 2-15 PUFF DAILY ity of 100-25 00:00: [place] mcg/dose 00 Medical DsDv Branch BREO 2022-0 Yes [id number] 1{puff} INHALE 1 U nivers ELLIPTA 2-15 PUFF DAILY ity of 100-25 00:00: [place] mcg/dose 00 Medical DsDv Branch BREO 2022-0 Yes [id number] 1{puff} INHALE 1 U nivers ELLIPTA 2-15 PUFF DAILY ity of 100-25 00:00: [place] mcg/dose 00 Medical DsDv Branch BREO 3-0 Yes [id number] 1{puff} INHALE 1 U nivers ELLIPTA 2-15 PUFF DAILY ity of 100-25 00:00: [place] mcg/dose 00 Medical DsDv Branch BREO 2022-0 Yes [id number] 1{puff} INHALE 1 U nivers ELLIPTA 2-15 PUFF DAILY ity of 100-25 00:00: [place] mcg/dose 00 Medical DsDv Branch BREO 3-0 Yes [id number] 1{puff} INHALE 1 U nivers ELLIPTA 2-15 PUFF DAILY ity of 100-25 00:00: [place] mcg/dose 00 Medical DsDv Branch BREO 2022-0 Yes [id number] 1{puff} INHALE 1 U nivers ELLIPTA 2-15 PUFF DAILY ity of 100-25 00:00: [place] mcg/dose 00 Medical DsDv Branch BREO 2022-0 Yes [id number] 1{puff} INHALE 1 U nivers ELLIPTA 2-15 PUFF DAILY ity of 100-25 00:00: [place] mcg/dose 00 Medical DsDv Branch BREO 2022-0 Yes [id number] 1{puff} INHALE 1 U nivers ELLIPTA 2-15 PUFF DAILY ity of 100-25 00:00: [place] mcg/dose 00 Medical DsDv Branch BREO 3-0 Yes [id number] 1{puff} INHALE 1 U nivers ELLIPTA 2-15 PUFF DAILY ity of 100-25 00:00: [place] mcg/dose 00 Medical DsDv Branch BREO 3-0 Yes [id number] 1{puff} INHALE 1 U nivers ELLIPTA 2-15 PUFF DAILY ity of 100-25 00:00: [place] mcg/dose 00 Medical DsDv Branch BREO 3-0 Yes [id number] 1{puff} INHALE 1 U nivers ELLIPTA 2-15 PUFF DAILY ity of 100-25 00:00: [place] mcg/dose 00 Medical DsDv Branch BREO 3-0 Yes [id number] 1{puff} INHALE 1 U nivers ELLIPTA 2-15 PUFF DAILY ity of 100-25 00:00: [place] mcg/dose 00 Medical DsDv Branch BREO 2022-0 Yes [id number] 1{puff} INHALE 1 U nivers ELLIPTA 2-15 PUFF DAILY ity of 100-25 00:00: [place] mcg/dose 00 Medical DsDv Branch mupirocin 2 2022- No [id number] Apply to Univers % ointment 10-24 area(s) ity o f 00:00: 05:59 every 12 [place] 00 :00 (twelve) Medical hours for Branch 21 days. mupirocin 2 2022- No [id number] Apply to Univers % ointment 10-24 area(s) ity o f 00:00: 05:59 every 12 [place] 00 :00 (twelve) Medical hours for Branch 21 days. albuterol 2022- No 2.5mg 2.5 mg, Uni vers (PROVENTIL) 10-06 Inhalation i ty of 2.5 mg /3 18:00: 18:03 , ONCE, 1 [place] mL (0.083 00 :00 dose, On Medica l %) [facility] nebulizer 10/06/22 at solution 1215, 2.5 mg Routine, PACU albuterol 2022- No 2.5mg 2.5 mg, Uni vers (PROVENTIL) 10-06 Inhalation i ty of 2.5 mg /3 18:00: 18:03 , ONCE, 1 [place] mL (0.083 00 :00 dose, On Medica l %) [facility] nebulizer 10/06/22 at solution 1215, 2.5 mg Routine, PACU HYDROcodone 2022- No 1{tbl} 1 tablet, Univers -acetaminop 10-06 Oral, ity of hen (NORCO 17:30: 19:46 ONCE, 1 [place] 5) 5-325 mg 00 :00 dose, On Medi zan tablet 1 [facility] Branch tablet 10/06/22 at 1130, Routine, PACU HYDROcodone 2022- No 1{tbl} 1 tablet, [facility] -acetaminop 10-06 Oral, ity of hen (NORCO 17:30: 19:46 ONCE, 1 [place] 5) 5-325 mg 00 :00 dose, On Medi zan tablet 1 [place] Branch tablet 10/06/22 at 1130, Routine, PACU FENTanyl PF 2022-0 Yes 25ug 25 mcg, Uni vers (SUBLIMAZE 10-06 Slow IV ity of (PF)) 17:19: Push, [place] injection 14 Q5MIN PRN, Medi zan 25 mcg 4 doses, Branch Starting on Ita 10/06/22 at 1119, Until Discontinu ed, Routine, Pain (scale 4-6), PACU ondansetron Yes 4mg 4 mg, Slow [facility] (ZOFRAN 10-06 IV Push, ity of (PF)) 17:19: PRN, 1 [place] injection 4 14 dose, Medical mg Starting Branch on Ita 10/06/22 at 1119, Until Discontinu ed, Routine, Nausea and Vomiting (N/V), PACU FENTanyl PF 2022-2022- No 25ug 25 mcg, Un ravi (SUBLIMAZE 10-06 Slow IV ity o f (PF)) 17:19: 22:54 Push, [place] injection 14 :04 Q5MIN PRN, Medi zan 25 mcg 4 doses, Branch Starting on Ita 10/06/22 at 1119, Until Ita 10/06/22 at 1654, Routine, Pain (scale 4-6), PACU ondansetron 2022-0 2022- No 4mg 4 mg, Slow [facility] (ZOFRAN 10-06 IV Push, ity of (PF)) 17:19: 22:54 PRN, 1 [place] injection 4 14 :04 dose, Medical mg Starting Branch on Ita 10/06/22 at 1119, Until Ita 10/06/22 at 1654, Routine, Nausea and Vomiting (N/V), PACU bupivacaine 2022-0 2022- No PRN, Unive rs (preserv 10-06 Starting ity of free) 0.5% 15:23: 17:31 on [place] (SENSORCAIN 00 :17 10/06/22 at Oh dicct E MP) 0.5 0923, Branch % (5 mg/mL) Intra-op 30 mL, bupivacaine liposome (PF) (EXPAREL (PF)) 1.3 % (13.3 mg/mL) 266 mg, NaCl 0.9% (NS) 10 mL ceFAZolin 2022- No 2000mg 2,000 mg, Univers (ANCEF) 10-06 Intravenou ity o f 2,000 mg in 14:30: 14:29 s, Q8H [place] NaCl 0.9% 00 :00 ABX, 3 Medical (NS) 100 mL doses, Branch MINI-BAG First dose on Mon10/06/22 at 0830, Last dose on Mon10/07/22 at 0030, Administer over 30 Minutes, 100 mL
Reas on for Anti-Infec tive: Surgical Prophylaxi s
Barth rgical Prophylaxi s: Other (see Comments)< br>Duratio n of therapy: within 24 hours of surgery ceFAZolin No 2000mg 2,000 mg, Univers (ANC) 10-06 Intravenou ity o f 2,000 mg in 14:30: 22:54 s, Q8H [place] NaCl 0.9% 00 :04 ABX, 3 Medical (NS) 100 mL doses, Branch MINI-BAG First dose on Mon10/06/22 at 0830, Last dose on Mon10/07/22 at [...] ity o f g, 13:15: 17:31 on Ita [place] gentamicin 00 :17 10/06/22 at Med ical 240 mg in 0715, Branch NaCl 0.9% Intra-op (NS) 3,000 mL OR irrigation gentian 2022- No PRN, Univers simin 1 % 10-06 Starting ity of solution 13:15: 17:31 on Ita [place] 00 :17 10/06/22 at Medical 0715, Branch Until Mon10/06/22 at 1131, Routine, Intra-op scopolamine 2022- No 1.5mg 1.5 mg, U nivers transdermal 10-06 Topical, ity of (TRANSDERM- 12:15: 11:48 Administer [place] SCOP) patch 00 :00 over 72 Medic al 1.5 mg Hours, Branch ONCE, 1 dose, On Mon10/06/22 at 0615, Routine, DSU Pre-op scopolamine 2022- No 1.5mg 1.5 mg, U nivers transdermal 10-06 Topical, ity of (TRANSDERM- 12:15: 22:54 Administer [place] SCOP) patch 00 :04 over 72 Medic al 1.5 mg Hours, Branch ONCE, 1 dose, On Mon10/06/22 at 0615, Routine, DSU Pre-op lactated 2022- No 1000mL at 42 Unive rs ringers IV 10-06 mL/hr, ity of infusion 11:30: 11:48 1,000 mL, [place] 1,000 mL 00 :00 IV Medical Infusion, Branch ONCE, 1 dose, On Mon10/06/22 at 0530, Routine, DSU Pre-op lactated 2022- [...] Discontinu ed, Routine, Pain, DSU Pre-op celecoxib 2022- No 200mg 200 mg, Uni vers (CELEBREX) 10-06 Oral, O.R. it y of capsule 200 11:28: 11:47 [place]ING [place] mg 53 :00 ONCE, 1 Medical dose, Branch Starting on Mon10/06/22 at 0528, Until Discontinu ed, Routine, Pain, DSU Pre-op gabapentin 2022- No 600mg 600 mg, Un ravi (NEURONTIN) 10-06 Oral, O.R. i ty of tablet 600 11:26: 11:47 [place] mg 48 :00 ONCE, 1 Medical dose, Branch Starting on Mon10/06/22 at 0526, Until Discontinu ed, Routine, Surgery/Pr ocedure, DSU Pre-op gabapentin 2022- No 600mg 600 mg, Un ravi (NEURONTIN) 10-06 Oral, O.R. i ty of tablet 600 11:26: 11:47 [place] mg 48 :00 ONCE, 1 Medical dose, Branch Starting on Mon10/06/22 at 0526, Until Discontinu ed, Routine, Surgery/Pr ocedure, DSU Pre-op celecoxib 2022- No [id number] 100mg Take 1 [facility] (CELEBREX) 10-06 capsule by it y of 100 mg 00:00: 05:59 mouth in [place] capsule 00 :00 the Medical morning Branch and 1 capsule in the evening. Take with meals. Do all this for 7 days. celecoxib 2022-0 2023- No [id number] 100mg Take 1 [facility] (CELEBREX) 10-06 capsule by it y of 100 mg 00:00: 05:59 mouth in [place] capsule 00 :00 the Medical morning Branch and 1 capsule in the evening. Take with meals. Do all this for 7 days. celecoxib 2022-0 3- No [id number] 100mg Take 1 [facility] (CELEBREX) 10-06 capsule by it y of 100 mg 00:00: 05:59 mouth in [place] capsule 00 :00 the Medical morning Branch and 1 capsule in the evening. Take with meals. Do all this for 7 days. celecoxib 2022-0 3- No [id number] 100mg Take 1 [facility] (CELEBREX) 10-06 capsule by it y of 100 mg 00:00: 05:59 mouth in [place] capsule 00 :00 the Medical morning Branch and 1 capsule in the evening. Take with meals. Do all this for 7 days. celecoxib 3-0 3- No [id number] 100mg Take 1 [facility] (CELEBREX) 10-06 capsule by it y of 100 mg 00:00: 05:59 mouth in [place] capsule 00 :00 the Medical morning Branch and 1 capsule in the evening. Take with meals. Do all this for 7 days. celecoxib 2022-0 3- No [id number] 100mg Take 1 [facility] (CELEBREX) 10-06 capsule by it y of 100 mg 00:00: 05:59 mouth in [place] capsule 00 :00 the Medical morning Branch and 1 capsule in the evening. Take with meals. Do all this for 7 days. gabapentin 2023-0 3- No [id number] 600mg Take 2 [facility] 300 mg -06 11-25 capsules ity of capsule 00:00: 05:59 by mouth [place] 00 :00 every 8 Medical (eight) Branch hours for 14 days. celecoxib 2023-0 2023- No [id number] 200mg Take 2 [facility] 100 mg 1-10 01-25 capsules ity of capsule 00:00: 05:59 by mouth [place] 00 :00 in the Medical morning Branch and 2 capsules in the evening. Take with meals. Do all this for 14 days. acetaminoph 2023-0 2022- No [id number] 1000mg Take 2 [facility] en 500 mg 1-10 -25 tablets by ity of tablet 00:00: 05:59 mouth [place] 00 :00 every 8 [facility] Branch hours for 14 days. OTC gabapentin 202-0 2022- No [id number] 600mg Take 2 [facility] 300 mg 1-10 -25 capsules ity of capsule 00:00: 05:59 by mouth [place] 00 :00 every 8 [facility] Branch hours for 14 days. celecoxib 2022-0 2022- No [id number] 200mg Take 2 Univers 100 mg 1-10 -25 capsules ity of capsule 00:00: 05:59 by mouth [place] 00 :00 in the Medical morning Branch and 2 capsules in the evening. Take with meals. Do all this for 14 days. acetaminoph 2022-0 2022- No [id number] 1000mg Take 2 Univers en 500 mg 1-10 -25 tablets by ity of tablet 00:00: 05:59 mouth [place] 00 :00 every 8 [facility] Branch hours for 14 days. OTC gabapentin 2022-0 2022- No [id number] 600mg Take 2 [facility] 300 mg 1-10 -25 capsules ity of capsule 00:00: 05:59 by mouth [place] 00 :00 every 8 [facility] Branch hours for 14 days. celecoxib 2023-0 2022- No [id number] 200mg Take 2 [facility] 100 mg 1-10 -25 capsules ity of capsule 00:00: 05:59 by mouth [place] 00 :00 in the Medical morning Branch and 2 capsules in the evening. Take with meals. Do all this for 14 days. acetaminoph 2023-0 2022- No [id number] 1000mg Take 2 [facility] en 500 mg 1-10 -25 tablets by ity of tablet 00:00: 05:59 mouth [place] 00 :00 every 8 Medical [facility] Branch hours for 14 days. OTC gabapentin 2023-0 202- No [id number] 600mg Take 2 [facility] 300 mg 1-10 01-25 capsules ity of capsule 00:00: 05:59 by mouth [place] 00 :00 every 8 [facility] Branch hours for 14 days. celecoxib 2023-0 202- No [id number] 200mg Take 2 [facility] 100 mg 1-10 -25 capsules ity of capsule 00:00: 05:59 by mouth [place] 00 :00 in the Medical morning Branch and 2 capsules in the evening. Take with meals. Do all this for 14 days. acetaminoph 2023-0 202- No [id number] 1000mg Take 2 [facility] en 500 mg 1-10 -25 tablets by ity of tablet 00:00: 05:59 mouth [place] 00 :00 every 8 [facility] Branch hours for 14 days. OTC gabapentin 2023-0 202- No [id number] 600mg Take 2 [facility] 300 mg 1-10 -25 capsules ity of capsule 00:00: 05:59 by mouth [place] 00 :00 every 8 [facility] Branch hours for 14 days. celecoxib 2023-0 202- No [id number] 200mg Take 2 [facility] 100 mg 1-10 -25 capsules ity of capsule 00:00: 05:59 by mouth [place] 00 :00 in the Medical morning Branch and 2 capsules in the evening. Take with meals. Do all this for 14 days. acetaminoph 202-0 2022- No [id number] 1000mg Take 2 [facility] en 500 mg 1-10 -25 tablets by ity of tablet 00:00: 05:59 mouth [place] 00 :00 every 8 [facility] Branch hours for 14 days. OTC gabapentin 2023-0 2022- No [id number] 600mg Take 2 [facility] 300 mg 1-10 -25 capsules ity of capsule 00:00: 05:59 by mouth [place] 00 :00 every 8 [facility] (eight) Branch hours for 14 days. celecoxib 2023-0 2022- No [id number] 200mg Take 2 [facility] 100 mg 1-10 -25 capsules ity of capsule 00:00: 05:59 by mouth [place] 00 :00 in the Medical morning Branch and 2 capsules in the evening. Take with meals. Do all this for 14 days. acetaminoph 2023-0 202- No [id number] 1000mg Take 2 [facility] en 500 mg 1-10 -25 tablets by ity of tablet 00:00: 05:59 mouth [place] 00 :00 every 8 Medical (eight) Branch hours for 14 days. OTC gabapentin 2023-0 2023- No [id number] 600mg Take 2 [facility] 300 mg 1-10 -25 capsules ity of capsule 00:00: 05:59 by mouth [place] 00 :00 every 8 Medical (eight) Branch hours for 14 days. celecoxib 2023-0 2023- No [id number] 200mg Take 2 [facility] 100 mg 1-10 -25 capsules ity of capsule 00:00: 05:59 by mouth [place] 00 :00 in the Medical morning Branch and 2 capsules in the evening. Take with meals. Do all this for 14 days. acetaminoph 2023-0 202- No [id number] 1000mg Take 2 [facility] en 500 mg 1-10 -25 tablets by ity of tablet 00:00: 05:59 mouth [place] 00 :00 every 8 Medical (eight) Branch hours for 14 days. OTC gabapentin 2023-0 202- No [id number] 600mg Take 2 [facility] 300 mg 1-10 -25 capsules ity of capsule 00:00: 05:59 by mouth [place] 00 :00 every 8 Medical (eight) Branch hours for 14 days. celecoxib 2023-0 2023- No [id number] 200mg Take 2 [facility] 100 mg 1-10 -25 capsules ity of capsule 00:00: 05:59 by mouth [place] 00 :00 in the Medical morning Branch and 2 capsules in the evening. Take with meals. Do all this for 14 days. acetaminoph 2023-0 202- No [id number] 1000mg Take 2 [facility] en 500 mg 1-10 -25 tablets by ity of tablet 00:00: 05:59 mouth [place] 00 :00 every 8 Medical (eight) Branch hours for 14 days. OTC gabapentin 2023-0 202- No [id number] 600mg Take 2 [facility] 300 mg 1-10 01-25 capsules ity of capsule 00:00: 05:59 by mouth [place] 00 :00 every 8 Medical (eight) Branch hours for 14 days. celecoxib 2023-0 2023- No [id number] 200mg Take 2 [facility] 100 mg 1-10 01-25 capsules ity of capsule 00:00: 05:59 by mouth [place] 00 :00 in the Medical morning Branch and 2 capsules in the evening. Take with meals. Do all this for 14 days. acetaminoph 2023-0 2023- No [id number] 1000mg Take 2 [facility] en 500 mg 1-10 -25 tablets by ity of tablet 00:00: 05:59 mouth [place] 00 :00 every 8 Medical (eight) Branch hours for 14 days. OTC gabapentin 2023-0 2023- No [id number] 600mg Take 2 [facility] 300 mg 1-10 -25 capsules ity of capsule 00:00: 05:59 by mouth [place] 00 :00 every 8 Medical (eight) Branch hours for 14 days. celecoxib 2023-0 202- No [id number] 200mg Take 2 [facility] 100 mg 1-10 -25 capsules ity of capsule 00:00: 05:59 by mouth [place] 00 :00 in the Medical morning Branch and 2 capsules in the evening. Take with meals. Do all this for 14 days. acetaminoph 2023-0 202- No [id number] 1000mg Take 2 [facility] en 500 mg 1-10 -25 tablets by ity of tablet 00:00: 05:59 mouth [place] 00 :00 every 8 Medical (eight) Branch hours for 14 days. OTC gabapentin 2023-0 2022- No [id number] 600mg Take 2 [facility] 300 mg 1-10 -25 capsules ity of capsule 00:00: 05:59 by mouth [place] 00 :00 every 8 Medical (eight) Branch hours for 14 days. acetaminoph 2023-0 2022- No [id number] 1000mg Take 2 [facility] en 500 mg 1-10 -25 tablets by ity of tablet 00:00: 05:59 mouth [place] 00 :00 every 8 Medical (eight) Branch hours for 14 days. OTC gabapentin 2023-0 2022- No [id number] 600mg Take 2 [facility] 300 mg 1-10 01-25 capsules ity of capsule 00:00: 05:59 by mouth [place] 00 :00 every 8 Medical (eight) Branch hours for 14 days. acetaminoph 2023-0 2023- No [id number] 1000mg Take 2 [facility] en 500 mg 1-10 01-25 tablets by ity of tablet 00:00: 05:59 mouth [place] 00 :00 every 8 Medical (eight) Branch hours for 14 days. OTC clindamycin 2023-0 2023- No [id number] 300mg Take 1 [facility] 300 mg 09-20 capsule by ity of capsule 00:00: 05:59 mouth 4 [place] 00 :00 ([facility] daily for 7 days. clindamycin 3-0 2022- No [id number] 300mg Take 1 [facility] 300 mg 09-20 capsule by ity of capsule 00:00: 05:59 mouth 4 [place] 00 :00 ([facility] daily for 7 days. celecoxib 2022-0 2022- No [id number] 200mg Take 1 [facility] (CELEBREX) 09-20 capsule by it y of 200 mg 00:00: 05:59 mouth in [place] capsule 00 :00 the [facility] morning Branch and 1 capsule in the evening. Take with meals. Do all this for 7 days. clindamycin 2022-0 2022- No [id number] 300mg Take 1 [facility] 300 mg 09-20 capsule by ity of capsule 00:00: 05:59 mouth 4 [place] 00 :00 ([facility] daily for 7 days. celecoxib 2022-0 2022- No [id number] 200mg Take 1 [facility] (CELEBREX) 09-20 capsule by it y of 200 mg 00:00: 05:59 mouth in [place] capsule 00 :00 the [facility] morning Branch and 1 capsule in the evening. Take with meals. Do all this for 7 days. clindamycin 2022-0 2022- No [id number] 300mg Take 1 [facility] 300 mg 09-20 capsule by ity of capsule 00:00: 05:59 mouth 4 [place] 00 :00 ([facility] daily for 7 days. celecoxib 2022-0 2022- No [id number] 200mg Take 1 [facility] (CELEBREX) 09-20 capsule by it y of 200 mg 00:00: 05:59 mouth in [place] capsule 00 :00 the [facility] morning Branch and 1 capsule in the evening. Take with meals. Do all this for 7 days. clindamycin 2022-0 2022- No [id number] 300mg Take 1 [facility] 300 mg 09-20 capsule by ity of capsule 00:00: 05:59 mouth 4 [place] 00 :00 ([facility] daily for 7 days. celecoxib 2022-2022- No [id number] 200mg Take 1 [facility] (CELEBREX) 09-20 capsule by it y of 200 mg 00:00: 05:59 mouth in [place] capsule 00 :[address] [facility] and 1 capsule in the evening. Take with meals. Do all this for 7 days. clindamycin 2022-0 2022- No [id number] 300mg Take 1 [facility] 300 mg 09-20 capsule by ity of capsule 00:00: 05:59 mouth 4 [place] 00 :00 ([facility] daily for 7 days. celecoxib 2022-0 2022- No [id number] 200mg Take 1 [facility] (CELEBREX) 09-20 capsule by it y of 200 mg 00:00: 05:59 mouth in [place] capsule 00 :00 [facility] and 1 capsule in the evening. Take with meals. Do all this for 7 days. clindamycin 2022-0 2022- No [id number] 300mg Take 1 [facility] 300 mg 09-20 capsule by ity of capsule 00:00: 05:59 mouth 4 [place] 00 :00 ([facility] daily for 7 days. celecoxib 2022-0 2022- No [id number] 200mg Take 1 [facility] (CELEBREX) 09-20 capsule by it y of 200 mg 00:00: 05:59 mouth in [place] capsule 00 :00 [facility] and 1 capsule in the evening. Take with meals. Do all this for 7 days. clindamycin 2022-0 2022- No [id number] 300mg Take 1 [facility] 300 mg 09-20 capsule by ity of capsule 00:00: 05:59 mouth 4 [place] 00 :00 ([facility] daily for 7 days. celecoxib 2022-0 2022- No [id number] 200mg Take 1 [facility] (CELEBREX) 09-20 capsule by it y of 200 mg 00:00: 05:59 mouth in [place] capsule 00 :00 [facility] and 1 capsule in the evening. Take with meals. Do all this for 7 days. ESCITALOPRA 2021-09 Yes [id number] TAKE 1 [facility] M OXALATE 2-28 TABLET BY ity o f 20 mg 00:00: MOUTH [place] tablet 00 EVERY DAY [facility] ESCITALOPRA 2021-09 Yes [id number] TAKE 1 [facility] M OXALATE 2-28 TABLET BY ity o f 20 mg 00:00: MOUTH [place] tablet 00 EVERY DAY Medical Branch ESCITALOPRA 2021-09 Yes [id number] TAKE 1 [facility] M OXALATE 2-28 TABLET BY ity o f 20 mg 00:00: MOUTH [place] tablet 00 EVERY DAY Medical Branch ESCITALOPRA 2021-09 Yes [id number] TAKE 1 [facility] M OXALATE 2-28 TABLET BY ity o f 20 mg 00:00: MOUTH [place] tablet 00 EVERY DAY Medical Branch ESCITALOPRA 2021-09 Yes [id number] TAKE 1 [facility] M OXALATE 2-28 TABLET BY ity o f 20 mg 00:00: MOUTH [place] tablet 00 EVERY DAY Medical Branch ESCITALOPRA 2021-09 Yes [id number] TAKE 1 [facility] M OXALATE 2-28 TABLET BY ity o f 20 mg 00:00: MOUTH [place] tablet 00 EVERY DAY Medical Branch ESCITALOPRA 2021-09 Yes [id number] TAKE 1 [facility] M OXALATE 2-28 TABLET BY ity o f 20 mg 00:00: MOUTH [place] tablet 00 EVERY DAY Medical Branch ESCITALOPRA 2021-09 Yes [id number] TAKE 1 [facility] M OXALATE 2-28 TABLET BY ity o f 20 mg 00:00: MOUTH [place] tablet 00 EVERY DAY Medical Branch ESCITALOPRA 2021-09 Yes [id number] TAKE 1 [facility] M OXALATE 2-28 TABLET BY ity o f 20 mg 00:00: MOUTH [place] tablet 00 EVERY DAY Medical Branch ESCITALOPRA 2021-09 Yes [id number] TAKE 1 [facility] M OXALATE 2-28 TABLET BY ity o f 20 mg 00:00: MOUTH [place] tablet 00 EVERY DAY Medical Branch ESCITALOPRA 2021-09 Yes [id number] TAKE 1 [facility] M OXALATE 2-28 TABLET BY ity o f 20 mg 00:00: MOUTH [place] tablet 00 EVERY DAY Medical Branch ESCITALOPRA 2021-09 Yes [id number] TAKE 1 [facility] M OXALATE 2-28 TABLET BY ity o f 20 mg 00:00: MOUTH [place] tablet 00 EVERY DAY Medical Branch ESCITALOPRA 2021-09 Yes [id number] TAKE 1 [facility] M OXALATE 2-28 TABLET BY ity o f 20 mg 00:00: MOUTH [place] tablet 00 EVERY DAY Medical Branch ESCITALOPRA 2021-09 Yes [id number] TAKE 1 [facility] M OXALATE 2-28 TABLET BY ity o f 20 mg 00:00: MOUTH [place] tablet 00 EVERY DAY Medical Branch ESCITALOPRA 2021-09 Yes [id number] TAKE 1 [facility] M OXALATE 2-28 TABLET BY ity o f 20 mg 00:00: MOUTH [place] tablet 00 EVERY DAY Medical Branch ESCITALOPRA 2021-09 Yes [id number] TAKE 1 [facility] M OXALATE 2-28 TABLET BY ity o f 20 mg 00:00: MOUTH [place] tablet 00 EVERY DAY Medical Branch ESCITALOPRA 2021-09 Yes [id number] TAKE 1 [facility] M OXALATE 2-28 TABLET BY ity o f 20 mg 00:00: MOUTH [place] tablet 00 EVERY DAY Medical Branch ESCITALOPRA 2021-09 Yes [id number] TAKE 1 [facility] M OXALATE 2-28 TABLET BY ity o f 20 mg 00:00: MOUTH [place] tablet 00 EVERY DAY Medical Branch ESCITALOPRA 2021-09 Yes [id number] TAKE 1 [facility] M OXALATE 2-28 TABLET BY ity o f 20 mg 00:00: MOUTH [place] tablet 00 EVERY DAY Medical Branch ESCITALOPRA 2021-09 Yes [id number] TAKE 1 [facility] M OXALATE 2-28 TABLET BY ity o f 20 mg 00:00: MOUTH [place] tablet 00 EVERY DAY Medical Branch ESCITALOPRA 2021-09 Yes [id number] TAKE 1 [facility] M OXALATE 2-28 TABLET BY ity o f 20 mg 00:00: MOUTH [place] tablet 00 EVERY DAY Medical Branch ESCITALOPRA 2021-09 Yes [id number] TAKE 1 [facility] M OXALATE 2-28 TABLET BY ity o f 20 mg 00:00: MOUTH [place] tablet 00 EVERY DAY Medical Branch ESCITALOPRA 2021-09 Yes [id number] TAKE 1 [facility] M OXALATE 2-28 TABLET BY ity o f 20 mg 00:00: MOUTH [place] tablet 00 EVERY DAY Medical Branch ESCITALOPRA 2021-09 Yes [id number] TAKE 1 [facility] M OXALATE 2-28 TABLET BY ity o f 20 mg 00:00: MOUTH [place] tablet 00 EVERY DAY Medical Branch ESCITALOPRA 2021-09 Yes [id number] TAKE 1 [facility] M OXALATE 2-28 TABLET BY ity o f 20 mg 00:00: MOUTH [place] tablet 00 EVERY DAY Medical Branch ESCITALOPRA 2021-09 Yes [id number] TAKE 1 [facility] M OXALATE 2-28 TABLET BY ity o f 20 mg 00:00: MOUTH [place] tablet 00 EVERY DAY Medical Branch ESCITALOPRA 2021-09 Yes [id number] TAKE 1 [facility] M OXALATE 2-28 TABLET BY ity o f 20 mg 00:00: MOUTH [place] tablet 00 EVERY DAY Medical Branch ESCITALOPRA 2021-09 Yes [id number] TAKE 1 [facility] M OXALATE 2-28 TABLET BY ity o f 20 mg 00:00: MOUTH [place] tablet 00 EVERY DAY Medical Branch ESCITALOPRA 2021-09 Yes [id number] TAKE 1 [facility] M OXALATE 2-28 TABLET BY ity o f 20 mg 00:00: MOUTH [place] tablet 00 EVERY DAY Medical Branch ESCITALOPRA 2021-09 Yes [id number] TAKE 1 [facility] M OXALATE 2-28 TABLET BY ity o f 20 mg 00:00: MOUTH [place] tablet 00 EVERY DAY Medical Branch ESCITALOPRA 2021-09 Yes [id number] TAKE 1 [facility] M OXALATE 2-28 TABLET BY ity o f 20 mg 00:00: MOUTH [place] tablet 00 EVERY DAY Medical Branch ESCITALOPRA 2021-09 Yes [id number] TAKE 1 [facility] M OXALATE 2-28 TABLET BY ity o f 20 mg 00:00: MOUTH [place] tablet 00 EVERY DAY Medical Branch ESCITALOPRA 2021-09 Yes [id number] TAKE 1 [facility] M OXALATE 2-28 TABLET BY ity o f 20 mg 00:00: MOUTH [place] tablet 00 EVERY DAY Medical Branch ESCITALOPRA 2021-09 Yes [id number] TAKE 1 [facility] M OXALATE 2-28 TABLET BY ity o f 20 mg 00:00: MOUTH [place] tablet 00 EVERY DAY Medical Branch ESCITALOPRA 2021-09 Yes [id number] TAKE 1 [facility] M OXALATE 2-28 TABLET BY ity o f 20 mg 00:00: MOUTH [place] tablet 00 EVERY DAY Medical Branch ESCITALOPRA 2021-09 Yes [id number] TAKE 1 [facility] M OXALATE 2-28 TABLET BY ity o f 20 mg 00:00: MOUTH [place] tablet 00 EVERY DAY Medical Branch ESCITALOPRA 2021-09 Yes [id number] TAKE 1 [facility] M OXALATE 2-28 TABLET BY ity o f 20 mg 00:00: MOUTH [place] tablet 00 EVERY DAY Medical Branch ESCITALOPRA 2021-09 Yes [id number] TAKE 1 [facility] M OXALATE 2-28 TABLET BY ity o f 20 mg 00:00: MOUTH [place] tablet 00 EVERY DAY Medical Branch ESCITALOPRA 2021-09 Yes [id number] TAKE 1 [facility] M OXALATE 2-28 TABLET BY ity o f 20 mg 00:00: MOUTH [place] tablet 00 EVERY DAY Medical Branch ESCITALOPRA 2021-09 Yes [id number] TAKE 1 [facility] M OXALATE 2-28 TABLET BY ity o f 20 mg 00:00: MOUTH [place] tablet 00 EVERY DAY Medical Branch ESCITALOPRA 2021-09 Yes [id number] TAKE 1 [facility] M OXALATE 2-28 TABLET BY ity o f 20 mg 00:00: MOUTH [place] tablet 00 EVERY DAY Medical Branch ESCITALOPRA 2021-09 Yes [id number] TAKE 1 [facility] M OXALATE 2-28 TABLET BY ity o f 20 mg 00:00: MOUTH [place] tablet 00 EVERY DAY Medical Branch ESCITALOPRA 2021-09 Yes [id number] TAKE 1 [facility] M OXALATE 2-28 TABLET BY ity o f 20 mg 00:00: MOUTH [place] tablet 00 EVERY DAY Medical Branch ESCITALOPRA 2021-09 Yes [id number] TAKE 1 [facility] M OXALATE 2-28 TABLET BY ity o f 20 mg 00:00: MOUTH [place] tablet 00 EVERY DAY Medical Branch ESCITALOPRA 2021-09 Yes [id number] TAKE 1 [facility] M OXALATE 2-28 TABLET BY ity o f 20 mg 00:00: MOUTH [place] tablet 00 EVERY DAY Medical Branch ESCITALOPRA 2021-09 Yes [id number] TAKE 1 [facility] M OXALATE 2-28 TABLET BY ity o f 20 mg 00:00: MOUTH [place] tablet 00 EVERY DAY Medical Branch ESCITALOPRA 2021-09 Yes [id number] TAKE 1 [facility] M OXALATE 2-28 TABLET BY ity o f 20 mg 00:00: MOUTH [place] tablet 00 EVERY DAY Medical Branch ESCITALOPRA 2021-09 Yes [id number] TAKE 1 [facility] M OXALATE 2-28 TABLET BY ity o f 20 mg 00:00: MOUTH [place] tablet 00 EVERY DAY Medical Branch ESCITALOPRA 2021-09 Yes [id number] TAKE 1 [facility] M OXALATE 2-28 TABLET BY ity o f 20 mg 00:00: MOUTH [place] tablet 00 EVERY DAY Medical Branch ketorolac 2021-09- No [id number] 60mg Uni vers (TORADOL) 10-25 ity of injection 19:00: 18:23 [place] 60 mg 00 :00 Medical Branch ketorolac 2021-09- No [id number] 60mg 60 mg, U nivers (TORADOL) 10-25 Intramuscu ity of injection 19:00: 18:23 lar, ONCE, [place] 60 mg 00 :00 1 dose, On [facility] 08/24/22 at 1300, Routine ketorolac 2021-09- No [id number] 60mg Uni vers (TORADOL) 10-25 ity of injection 19:00: 18:23 [place] 60 mg 00 :00 [facility] Branch ketorolac 2021-09- No [id number] 60mg 60 mg, U nivers (TORADOL) 10-25 Intramuscu ity of injection 19:00: 18:23 lar, ONCE, [place] 60 mg 00 :00 1 dose, On [facility] 08/24/22 at 1300, Routine MELOXICAM 2021-09 Yes [id number] TAKE 1 U nivers 7.5 mg 2-05 TABLET BY ity of tablet 00:00: MOUTH [place] 00 EVERY DAY Medical Branch MELOXICAM 2021-09 Yes [id number] TAKE 1 U nivers 7.5 mg 2-05 TABLET BY ity of tablet 00:00: MOUTH [place] 00 EVERY DAY Medical Branch MELOXICAM 2021-09 Yes [id number] TAKE 1 U nivers 7.5 mg 2-05 TABLET BY ity of tablet 00:00: MOUTH [place] 00 EVERY DAY Medical Branch MELOXICAM 2021-09 Yes [id number] TAKE 1 U nivers 7.5 mg 2-05 TABLET BY ity of tablet 00:00: MOUTH [place] 00 EVERY DAY Medical Branch MELOXICAM 2021-09 Yes [id number] TAKE 1 U nivers 7.5 mg 2-05 TABLET BY ity of tablet 00:00: MOUTH [place] 00 EVERY DAY Medical Branch MELOXICAM 2021-09 Yes [id number] TAKE 1 U nivers 7.5 mg 2-05 TABLET BY ity of tablet 00:00: MOUTH [place] 00 EVERY DAY Medical Branch MELOXICAM 2021-09 Yes [id number] TAKE 1 U nivers 7.5 mg 2-05 TABLET BY ity of tablet 00:00: MOUTH [place] 00 EVERY DAY Medical Branch MELOXICAM 2021-09 Yes [id number] TAKE 1 U nivers 7.5 mg 2-05 TABLET BY ity of tablet 00:00: MOUTH [place] 00 EVERY DAY Medical Branch MELOXICAM 2021-09 Yes [id number] TAKE 1 U nivers 7.5 mg 2-05 TABLET BY ity of tablet 00:00: MOUTH [place] 00 EVERY DAY Medical Branch MELOXICAM 2021-09 Yes [id number] TAKE 1 U nivers 7.5 mg 2-05 TABLET BY ity of tablet 00:00: MOUTH [place] 00 DAY Medical Branch MELOXICAM 2021-09 Yes [id number] TAKE 1 U nivers 7.5 mg 2-05 TABLET BY ity of tablet 00:00: MOUTH [place] 00 DAY Medical Branch MELOXICAM 2021-09 Yes [id number] TAKE 1 U nivers 7.5 mg 2-05 TABLET BY ity of tablet 00:00: MOUTH [place] 00 DAY Medical Branch MELOXICAM 2021-09 Yes [id number] TAKE 1 U nivers 7.5 mg 2-05 TABLET BY ity of tablet 00:00: MOUTH [place] 00 DAY Medical Branch MELOXICAM 2021-09 Yes [id number] TAKE 1 U nivers 7.5 mg 2-05 TABLET BY ity of tablet 00:00: MOUTH [place] 00 DAY Medical Branch MELOXICAM 2021-09 Yes [id number] TAKE 1 U nivers 7.5 mg 2-05 TABLET BY ity of tablet 00:00: MOUTH [place] 00 DAY Medical Branch MELOXICAM 2021-09 Yes [id number] TAKE 1 U nivers 7.5 mg 2-05 TABLET BY ity of tablet 00:00: MOUTH [place] 00 DAY Medical Branch MELOXICAM 2021-09- No [id number] TAKE 1 Univers 7.5 mg 2-05 -26 TABLET BY ity of tablet 00:00: 00:00 MOUTH [place] 00 :00 EVERY DAY Medical Branch triamcinolo 2021-09- No [id number] 40mg Univers ne 0-06 20- [id number] ity of acetonide 20:00: 18:55 [place] (KENALOG) 00 :00 Medical injection Branch 40 mg triamcinolo 2021-09- No [id number] 40mg 40 mg, Univers ne 0-10 - [id number] Intramuscu ity of acetonide 20:00: 18:55 lar, ONCE, [place] (KENALOG) 00 :00 1 dose, On Medi zan injection Mon Branch 40 mg 06/20/22 at 1500, Routine triamcinolo 2021-09- No [id number] 40mg Univers ne 006-20 ity of acetonide 20:00: 18:55 [place] (KENALOG) 00 :00 Medical injection Branch 40 mg triamcinolo 2021-09- No [id number] 40mg 40 mg, Univers ne 0-06-20 Intramuscu ity of acetonide 20:00: 18:55 lar, ONCE, [place] (KENALOG) 00 :00 1 dose, On Medi zan injection Mon Branch 40 mg 06/20/22 at 1500, Routine methylPREDN 2021-09- No [id number] 80mg Univers ISolone 006-20 ity of acetate 19:45: 18:55 [place] (DEPO-MEDRO 00 :00 Medical L) Branch injection 80 mg methylPREDN 2021-09- No [id number] 80mg 80 mg, Univers ISolone 006-20 Intramuscu ity of acetate 19:45: 18:55 [place], ONCE, [place] (DEPO-MEDRO 00 :00 1 dose, On Me dical L) Mon Branch injection 06/20/22 80 mg at 1445, Routine methylPREDN 2021-09- No [id number] 80mg [facility] ISolone 006-20 ity of acetate 19:45: 18:55 [place] (DEPO-MEDRO 00 :00 Medical L) Branch injection 80 mg methylPREDN 2021-09- No [id number] 80mg 80 mg, Univers ISolone 006-20 Intramuscu ity of acetate 19:45: 18:55 [place], ONCE, [place] (DEPO-MEDRO 00 :00 1 dose, On Me dical L) Mon Branch injection 06/20/22 80 mg at 1445, Routine MELOXICAM Yes [id number] TAKE 1 U nivers 7.5 mg 9-21 TABLET BY ity of tablet 00:00: MOUTH EVERY DAY Medical Branch MELOXICAM Yes [id number] TAKE 1 U nivers 7.5 mg 9-21 TABLET BY ity of tablet 00:00: MOUTH EVERY DAY Medical Branch MELOXICAM Yes [id number] TAKE 1 U nivers 7.5 mg 9-21 TABLET BY ity of tablet 00:00: MOUTH [place] 00 EVERY DAY Medical Branch MELOXICAM 2021-0 Yes [id number] TAKE 1 U nivers 7.5 mg 9-21 TABLET BY ity of tablet 00:00: MOUTH [place] 00 EVERY DAY Medical Branch MELOXICAM 2021-0 Yes [id number] TAKE 1 U nivers 7.5 mg 9-21 TABLET BY ity of tablet 00:00: MOUTH [place] 00 EVERY DAY Medical Branch MELOXICAM 2021-0 Yes [id number] TAKE 1 U nivers 7.5 mg 9-21 TABLET BY ity of tablet 00:00: MOUTH [place] 00 EVERY DAY Medical Branch MELOXICAM 2021-0 Yes [id number] TAKE 1 U nivers 7.5 mg 9-21 TABLET BY ity of tablet 00:00: MOUTH [place] 00 EVERY DAY Medical Branch MELOXICAM 0 Yes [id number] TAKE 1 U nivers 7.5 mg 9-21 TABLET BY ity of tablet 00:00: MOUTH [place] 00 EVERY DAY Medical Branch MELOXICAM 0 2021- No [id number] TAKE 1 Univers 7.5 mg 9-21 12-05 TABLET BY ity of tablet 00:00: 00:00 MOUTH [place] 00 :00 EVERY DAY Medical Branch nystatin 2021-0 Yes [id number] Apply to U nivers 100,000 8-29 area(s) 2 ity of unit/gram 00:00: (two) [place] powder 00 times Medical daily. Branch nystatin 2021-0 Yes [id number] Apply to U nivers 100,000 8-29 area(s) 2 ity of unit/gram 00:00: (two) [place] powder 00 times Medical daily. Branch nystatin 2021-0 Yes [id number] Apply to U nivers 100,000 8-29 area(s) 2 ity of unit/gram 00:00: (two) [place] powder 00 times Medical daily. Branch nystatin 2021-0 Yes [id number] Apply to U nivers 100,000 8-29 area(s) 2 ity of unit/gram 00:00: (two) [place] powder 00 times Medical daily. Branch nystatin 2021-0 Yes [id number] Apply to U nivers 100,000 8-29 area(s) 2 ity of unit/gram 00:00: (two) [place] powder 00 times Medical daily. Branch nystatin 2022-0 Yes [id number] Apply to U nivers 100,000 8-29 area(s) 2 ity of unit/gram 00:00: (two) [place] powder 00 times Medical daily. Branch nystatin 2022-0 Yes [id number] Apply to U nivers 100,000 8-29 area(s) 2 ity of unit/gram 00:00: (two) [place] powder 00 times Medical daily. Branch nystatin 2022-0 Yes [id number] Apply to U nivers 100,000 8-29 area(s) 2 ity of unit/gram 00:00: (two) [place] powder 00 times Medical daily. Branch nystatin 2022-0 Yes [id number] Apply to U nivers 100,000 8-29 area(s) 2 ity of unit/gram 00:00: (two) [place] powder 00 times Medical daily. Branch nystatin 2022-0 Yes [id number] Apply to U nivers 100,000 8-29 area(s) 2 ity of unit/gram 00:00: (two) [place] powder 00 times Medical daily. Branch nystatin 2022-0 Yes [id number] Apply to U nivers 100,000 8-29 area(s) 2 ity of unit/gram 00:00: (two) [place] powder 00 times Medical daily. Branch nystatin 2022-0 Yes [id number] Apply to U nivers 100,000 8-29 area(s) 2 ity of unit/gram 00:00: (two) [place] powder 00 times Medical daily. Branch nystatin 2022-0 Yes [id number] Apply to U nivers 100,000 8-29 area(s) 2 ity of unit/gram 00:00: (two) [place] powder 00 times Medical daily. Branch nystatin 2022-0 Yes [id number] Apply to U nivers 100,000 8-29 area(s) 2 ity of unit/gram 00:00: (two) [place] powder 00 times Medical daily. Branch nystatin 2022-0 Yes [id number] Apply to U nivers 100,000 8-29 area(s) 2 ity of unit/gram 00:00: (two) [place] powder 00 times Medical daily. Branch nystatin 2022-0 Yes [id number] Apply to U nivers 100,000 8-29 area(s) 2 ity of unit/gram 00:00: (two) [place] powder 00 times Medical daily. Branch nystatin 2022-0 Yes [id number] Apply to U nivers 100,000 8-29 area(s) 2 ity of unit/gram 00:00: (two) [place] powder 00 times Medical daily. Branch nystatin 2022-0 Yes [id number] Apply to U nivers 100,000 8-29 area(s) 2 ity of unit/gram 00:00: (two) [place] powder 00 times Medical daily. Branch nystatin 2022-0 Yes [id number] Apply to U nivers 100,000 8-29 area(s) 2 ity of unit/gram 00:00: (two) [place] powder 00 times Medical daily. Branch nystatin 2022-0 Yes [id number] Apply to U nivers 100,000 8-29 area(s) 2 ity of unit/gram 00:00: (two) [place] powder 00 times Medical daily. Branch nystatin 2022-0 Yes [id number] Apply to U nivers 100,000 8-29 area(s) 2 ity of unit/gram 00:00: (two) [place] powder 00 times Medical daily. Branch nystatin 2022-0 Yes [id number] Apply to U nivers 100,000 8-29 area(s) 2 ity of unit/gram 00:00: (two) [place] powder 00 times Medical daily. Branch nystatin 2022-0 Yes [id number] Apply to U nivers 100,000 8-29 area(s) 2 ity of unit/gram 00:00: (two) [place] powder 00 times Medical daily. Branch nystatin 2022-0 Yes [id number] Apply to U nivers 100,000 8-29 area(s) 2 ity of unit/gram 00:00: (two) [place] powder 00 times Medical daily. Branch nystatin 2022-0 Yes [id number] Apply to U nivers 100,000 8-29 area(s) 2 ity of unit/gram 00:00: (two) [place] powder 00 times Medical daily. Branch nystatin 2022-0 Yes [id number] Apply to U nivers 100,000 8-29 area(s) 2 ity of unit/gram 00:00: (two) [place] powder 00 times Medical daily. Branch nystatin 2022-0 Yes [id number] Apply to U nivers 100,000 8-29 area(s) 2 ity of unit/gram 00:00: (two) [place] powder 00 times Medical daily. Branch nystatin 2022-0 Yes [id number] Apply to U nivers 100,000 8-29 area(s) 2 ity of unit/gram 00:00: (two) [place] powder 00 times Medical daily. Branch nystatin 2022-0 Yes [id number] Apply to U nivers 100,000 8-29 area(s) 2 ity of unit/gram 00:00: (two) [place] powder 00 times Medical daily. Branch nystatin 2022-0 Yes [id number] Apply to U nivers 100,000 8-29 area(s) 2 ity of unit/gram 00:00: (two) [place] powder 00 times Medical daily. Branch nystatin 2022-0 Yes [id number] Apply to U nivers 100,000 8-29 area(s) 2 ity of unit/gram 00:00: (two) [place] powder 00 times Medical daily. Branch nystatin 2022-0 Yes [id number] Apply to U nivers 100,000 8-29 area(s) 2 ity of unit/gram 00:00: (two) [place] powder 00 times Medical daily. Branch nystatin 2022-0 Yes [id number] Apply to U nivers 100,000 8-29 area(s) 2 ity of unit/gram 00:00: (two) [place] powder 00 times Medical daily. Branch nystatin 2022-0 Yes [id number] Apply to U nivers 100,000 8-29 area(s) 2 ity of unit/gram 00:00: (two) [place] powder 00 times Medical daily. Branch nystatin 2022-0 Yes [id number] Apply to U nivers 100,000 8-29 area(s) 2 ity of unit/gram 00:00: (two) [place] powder 00 times Medical daily. Branch nystatin 2022-0 Yes [id number] Apply to U nivers 100,000 8-29 area(s) 2 ity of unit/gram 00:00: (two) [place] powder 00 times Medical daily. Branch nystatin 2022-0 Yes [id number] Apply to U nivers 100,000 8-29 area(s) 2 ity of unit/gram 00:00: (two) [place] powder 00 times Medical daily. Branch nystatin 2022-0 Yes [id number] Apply to U nivers 100,000 8-29 area(s) 2 ity of unit/gram 00:00: (two) [place] powder 00 times Medical daily. Branch nystatin 2022-0 Yes [id number] Apply to U nivers 100,000 8-29 area(s) 2 ity of unit/gram 00:00: (two) [place] powder 00 times Medical daily. Branch nystatin 2022-0 Yes [id number] Apply to U nivers 100,000 8-29 area(s) 2 ity of unit/gram 00:00: (two) [place] powder 00 times Medical daily. Branch nystatin 2022-0 Yes [id number] Apply to U nivers 100,000 8-29 area(s) 2 ity of unit/gram 00:00: (two) [place] powder 00 times Medical daily. Branch nystatin 2022-0 Yes [id number] Apply to U nivers 100,000 8-29 area(s) 2 ity of unit/gram 00:00: (two) [place] powder 00 times Medical daily. Branch nystatin 2022-0 Yes [id number] Apply to U nivers 100,000 8-29 area(s) 2 ity of unit/gram 00:00: (two) [place] powder 00 times Medical daily. Branch nystatin 2022-0 Yes [id number] Apply to U nivers 100,000 8-29 area(s) 2 ity of unit/gram 00:00: (two) [place] powder 00 times Medical daily. Branch nystatin 2022-0 Yes [id number] Apply to U nivers 100,000 8-29 area(s) 2 ity of unit/gram 00:00: (two) [place] powder 00 times Medical daily. Branch nystatin 2022-0 Yes [id number] Apply to [facility] nivers 100,000 8-29 area(s) 2 ity of unit/gram 00:00: (two) [place] powder 00 times Medical daily. Branch nystatin 2022-0 Yes [id number] Apply to [facility] nivers 100,000 8-29 area(s) 2 ity of unit/gram 00:00: (two) [place] powder 00 times Medical daily. Branch nystatin 2022-0 Yes [id number] Apply to [facility] nivers 100,000 8-29 area(s) 2 ity of unit/gram 00:00: (two) [place] powder 00 times Medical daily. Branch nystatin 2022-0 Yes [id number] Apply to U nivers 100,000 8-29 area(s) 2 ity of unit/gram 00:00: (two) [place] powder 00 times Medical daily. Branch nystatin 2022-0 Yes [id number] Apply to [facility] nivers 100,000 8-29 area(s) 2 ity of unit/gram 00:00: (two) [place] powder 00 times Medical daily. Branch nystatin 2022-0 Yes [id number] Apply to [facility] nivers 100,000 8-29 area(s) 2 ity of unit/gram 00:00: (two) [place] powder 00 times Medical daily. Branch nystatin 2022-0 Yes [id number] Apply to [facility] nivers 100,000 8-29 area(s) 2 ity of unit/gram 00:00: (two) [place] powder 00 times Medical daily. Branch nystatin 2022-0 Yes [id number] Apply to [facility] nivers 100,000 8-29 area(s) 2 ity of unit/gram 00:00: (two) [place] powder 00 times Medical daily. Branch nystatin 2022-0 Yes [id number] Apply to [facility] nivers 100,000 8-29 area(s) 2 ity of unit/gram 00:00: (two) [place] powder 00 times Medical daily. Branch nystatin 2022-0 Yes [id number] Apply to [facility] nivers 100,000 8-29 area(s) 2 ity of unit/gram 00:00: (two) [place] powder 00 times Medical daily. Branch nystatin 2022-0 Yes [id number] Apply to [facility] nivers 100,000 8-29 area(s) 2 ity of unit/gram 00:00: (two) [place] powder 00 times Medical daily. Branch nystatin 2022-0 Yes [id number] Apply to [facility] nivers 100,000 8-29 area(s) 2 ity of unit/gram 00:00: (two) [place] powder 00 times Medical daily. Branch nystatin 2022-0 Yes [id number] Apply to [facility] nivers 100,000 8-29 area(s) 2 ity of unit/gram 00:00: (two) [place] powder 00 times Medical daily. Branch nystatin 2022-0 Yes [id number] Apply to [facility] nivers 100,000 8-29 area(s) 2 ity of unit/gram 00:00: (two) [place] powder 00 times Medical daily. Branch nystatin 2022-0 Yes [id number] Apply to [facility] nivers 100,000 8-29 area(s) 2 ity of unit/gram 00:00: (two) [place] powder 00 times Medical daily. Branch nystatin 2022-0 Yes [id number] Apply to [facility] 100,000 8-29 area(s) 2 ity of unit/gram 00:00: (two) [place] powder 00 times Medical daily. Branch nystatin 2022-0 Yes [id number] Apply to [facility] nivers 100,000 8-29 area(s) 2 ity of unit/gram 00:00: (two) [place] powder 00 times Medical daily. Branch nystatin 2022-0 Yes [id number] Apply to [facility] nivers 100,000 8-29 area(s) 2 ity of unit/gram 00:00: (two) [place] powder 00 times Medical daily. Branch LOSARTAN 50 2021-0 Yes [id number] TAKE 1 [facility] mg tablet 7-15 TABLET BY ity o f 00:00: MOUTH [place] 00 EVERY DAY Medical Branch LOSARTAN 50 2021-0 Yes [id number] TAKE 1 [facility] mg tablet 7-15 TABLET BY ity o f 00:00: MOUTH [place] 00 EVERY DAY Medical Branch LOSARTAN 50 2021-0 Yes [id number] TAKE 1 [facility] mg tablet 7-15 TABLET BY ity o f 00:00: MOUTH [place] 00 EVERY DAY Medical Branch LOSARTAN 50 2021-0 Yes [id number] TAKE 1 [facility] mg tablet 7-15 TABLET BY ity o f 00:00: MOUTH [place] 00 EVERY DAY Medical Branch LOSARTAN 50 2021-0 Yes [id number] TAKE 1 [facility] mg tablet 7-15 TABLET BY ity o f 00:00: MOUTH [place] 00 EVERY DAY Medical Branch LOSARTAN 50 2021-0 Yes [id number] TAKE 1 [facility] mg tablet 7-15 TABLET BY ity o f 00:00: MOUTH [place] 00 EVERY DAY Medical Branch LOSARTAN 50 2-0 Yes [id number] TAKE 1 [facility] mg tablet 7-15 TABLET BY ity o f 00:00: MOUTH [place] 00 EVERY DAY Medical Branch LOSARTAN 50 2-0 Yes [id number] TAKE 1 [facility] mg tablet 7-15 TABLET BY ity o f 00:00: MOUTH [place] 00 EVERY DAY Medical Branch LOSARTAN 50 2-0 Yes [id number] TAKE 1 [facility] mg tablet 7-15 TABLET BY ity o f 00:00: MOUTH [place] 00 EVERY DAY Medical Branch LOSARTAN 50 2-0 Yes [id number] TAKE 1 [facility] mg tablet 7-15 TABLET BY ity o f 00:00: MOUTH [place] 00 EVERY DAY Medical Branch LOSARTAN 50 2-0 Yes [id number] TAKE 1 [facility] mg tablet 7-15 TABLET BY ity o f 00:00: MOUTH [place] 00 EVERY DAY Medical Branch LOSARTAN 50 2-0 Yes [id number] TAKE 1 [facility] mg tablet 7-15 TABLET BY ity o f 00:00: MOUTH [place] 00 EVERY DAY Medical Branch LOSARTAN 50 2-0 Yes [id number] TAKE 1 [facility] mg tablet 7-15 TABLET BY ity o f 00:00: MOUTH [place] 00 EVERY DAY Medical Branch LOSARTAN 50 2-0 Yes [id number] TAKE 1 [facility] mg tablet 7-15 TABLET BY ity o f 00:00: MOUTH [place] 00 EVERY DAY Medical Branch LOSARTAN 50 2-0 Yes [id number] TAKE 1 [facility] mg tablet 7-15 TABLET BY ity o f 00:00: MOUTH [place] 00 EVERY DAY Medical Branch LOSARTAN 50 2022-0 Yes [id number] TAKE 1 [facility] mg tablet 7-15 TABLET BY ity o f 00:00: MOUTH [place] 00 EVERY DAY Medical Branch LOSARTAN 50 2-0 Yes [id number] TAKE 1 [facility] mg tablet 7-15 TABLET BY ity o f 00:00: MOUTH [place] 00 EVERY DAY Medical Branch LOSARTAN 50 2022-0 Yes [id number] TAKE 1 [facility] mg tablet 7-15 TABLET BY ity o f 00:00: MOUTH [place] 00 EVERY DAY Medical Branch LOSARTAN 50 2-0 Yes [id number] TAKE 1 [facility] mg tablet 7-15 TABLET BY ity o f 00:00: MOUTH [place] 00 EVERY DAY Medical Branch LOSARTAN 50 2022-0 Yes [id number] TAKE 1 [facility] mg tablet 7-15 TABLET BY ity o f 00:00: MOUTH [place] 00 EVERY DAY Medical Branch LOSARTAN 50 2022-0 Yes [id number] TAKE 1 [facility] mg tablet 7-15 TABLET BY ity o f 00:00: MOUTH [place] 00 EVERY DAY Medical Branch LOSARTAN 50 2022-0 Yes [id number] TAKE 1 [facility] mg tablet 7-15 TABLET BY ity o f 00:00: MOUTH [place] 00 EVERY DAY Medical Branch LOSARTAN 50 2022-0 Yes [id number] TAKE 1 [facility] mg tablet 7-15 TABLET BY ity o f 00:00: MOUTH [place] 00 EVERY DAY Medical Branch LOSARTAN 50 2-0 Yes [id number] TAKE 1 [facility] mg tablet 7-15 TABLET BY ity o f 00:00: MOUTH [place] 00 EVERY DAY Medical Branch LOSARTAN 50 2-0 Yes [id number] TAKE 1 [facility] mg tablet 7-15 TABLET BY ity o f 00:00: MOUTH [place] 00 EVERY DAY Medical Branch LOSARTAN 50 2-0 Yes [id number] TAKE 1 [facility] mg tablet 7-15 TABLET BY ity o f 00:00: MOUTH [place] 00 EVERY DAY Medical Branch LOSARTAN 50 2-0 Yes [id number] TAKE 1 [facility] mg tablet 7-15 TABLET BY ity o f 00:00: MOUTH [place] 00 EVERY DAY Medical Branch LOSARTAN 50 2-0 Yes [id number] TAKE 1 [facility] mg tablet 7-15 TABLET BY ity o f 00:00: MOUTH [place] 00 EVERY DAY Medical Branch LOSARTAN 50 2-0 Yes [id number] TAKE 1 [facility] mg tablet 7-15 TABLET BY ity o f 00:00: MOUTH [place] 00 EVERY DAY Medical Branch LOSARTAN 50 2022-0 Yes [id number] TAKE 1 [facility] mg tablet 7-15 TABLET BY ity o f 00:00: MOUTH [place] 00 EVERY DAY Medical Branch LOSARTAN 50 2022-0 Yes [id number] TAKE 1 [facility] mg tablet 7-15 TABLET BY ity o f 00:00: MOUTH [place] 00 EVERY DAY Medical Branch LOSARTAN 50 2022-0 Yes [id number] TAKE 1 [facility] mg tablet 7-15 TABLET BY ity o f 00:00: MOUTH [place] 00 EVERY DAY Medical Branch LOSARTAN 50 2022-0 Yes [id number] TAKE 1 [facility] mg tablet 7-15 TABLET BY ity o f 00:00: MOUTH [place] 00 EVERY DAY Medical Branch LOSARTAN 50 2022-0 Yes [id number] TAKE 1 [facility] mg tablet 7-15 TABLET BY ity o f 00:00: MOUTH [place] 00 EVERY DAY Medical Branch LOSARTAN 50 2022-0 Yes [id number] TAKE 1 [facility] mg tablet 7-15 TABLET BY ity o f 00:00: MOUTH [place] 00 EVERY DAY Medical Branch LOSARTAN 50 2-0 Yes [id number] TAKE 1 [facility] mg tablet 7-15 TABLET BY ity o f 00:00: MOUTH [place] 00 EVERY DAY Medical Branch LOSARTAN 50 2-0 Yes [id number] TAKE 1 [facility] mg tablet 7-15 TABLET BY ity o f 00:00: MOUTH [place] 00 EVERY DAY Medical Branch LOSARTAN 50 2-0 Yes [id number] TAKE 1 [facility] mg tablet 7-15 TABLET BY ity o f 00:00: MOUTH [place] 00 EVERY DAY Medical Branch LOSARTAN 50 2-0 Yes [id number] TAKE 1 [facility] mg tablet 7-15 TABLET BY ity o f 00:00: MOUTH [place] 00 EVERY DAY Medical Branch LOSARTAN 50 2-0 Yes [id number] TAKE 1 [facility] mg tablet 7-15 TABLET BY ity o f 00:00: MOUTH [place] 00 EVERY DAY Medical Branch LOSARTAN 50 2-0 Yes [id number] TAKE 1 [facility] mg tablet 7-15 TABLET BY ity o f 00:00: MOUTH [place] 00 EVERY DAY Medical Branch LOSARTAN 50 2-0 Yes [id number] TAKE 1 [facility] mg tablet 7-15 TABLET BY ity o f 00:00: MOUTH [place] 00 EVERY DAY Medical Branch LOSARTAN 50 2-0 Yes [id number] TAKE 1 [facility] mg tablet 7-15 TABLET BY ity o f 00:00: MOUTH [place] 00 EVERY DAY Medical Branch LOSARTAN 50 2-0 Yes [id number] TAKE 1 [facility] mg tablet 7-15 TABLET BY ity o f 00:00: MOUTH [place] 00 EVERY DAY Medical Branch LOSARTAN 50 2-0 Yes [id number] TAKE 1 [facility] mg tablet 7-15 TABLET BY ity o f 00:00: MOUTH [place] 00 EVERY DAY Medical Branch LOSARTAN 50 2-0 Yes [id number] TAKE 1 [facility] mg tablet 7-15 TABLET BY ity o f 00:00: MOUTH [place] 00 EVERY DAY Medical Branch LOSARTAN 50 2-0 Yes [id number] TAKE 1 [facility] mg tablet 7-15 TABLET BY ity o f 00:00: MOUTH [place] 00 EVERY DAY Medical Branch LOSARTAN 50 2-0 Yes [id number] TAKE 1 [facility] mg tablet 7-15 TABLET BY ity o f 00:00: MOUTH [place] 00 EVERY DAY Medical Branch LOSARTAN 50 2-0 Yes [id number] TAKE 1 [facility] mg tablet 7-15 TABLET BY ity o f 00:00: MOUTH [place] 00 EVERY DAY Medical Branch LOSARTAN 50 2022-0 Yes [id number] TAKE 1 [facility] mg tablet 7-15 TABLET BY ity o f 00:00: MOUTH [place] 00 EVERY DAY Medical Branch LOSARTAN 50 2022-0 Yes [id number] TAKE 1 [facility] mg tablet 7-15 TABLET BY ity o f 00:00: MOUTH [place] 00 EVERY DAY Medical Branch LOSARTAN 50 2022-0 Yes [id number] TAKE 1 [facility] mg tablet 7-15 TABLET BY ity o f 00:00: MOUTH [place] 00 EVERY DAY Medical Branch LOSARTAN 50 2-0 Yes [id number] TAKE 1 [facility] mg tablet 7-15 TABLET BY ity o f 00:00: MOUTH [place] 00 EVERY DAY Medical Branch LOSARTAN 50 2-0 Yes [id number] TAKE 1 [facility] mg tablet 7-15 TABLET BY ity o f 00:00: MOUTH [place] 00 EVERY DAY Medical Branch LOSARTAN 50 2-0 Yes [id number] TAKE 1 [facility] mg tablet 7-15 TABLET BY ity o f 00:00: MOUTH [place] 00 EVERY DAY Medical Branch LOSARTAN 50 2-0 Yes [id number] TAKE 1 [facility] mg tablet 7-15 TABLET BY ity o f 00:00: MOUTH [place] 00 EVERY DAY Medical Branch LOSARTAN 50 2-0 Yes [id number] TAKE 1 [facility] mg tablet 7-15 TABLET BY ity o f 00:00: MOUTH [place] 00 EVERY DAY Medical Branch LOSARTAN 50 2-0 Yes [id number] TAKE 1 [facility] mg tablet 7-15 TABLET BY ity o f 00:00: MOUTH [place] 00 EVERY DAY Medical Branch LOSARTAN 50 2022-0 Yes [id number] TAKE 1 [facility] mg tablet 7-15 TABLET BY ity o f 00:00: MOUTH [place] 00 EVERY DAY Medical Branch LOSARTAN 50 2022-0 Yes [id number] TAKE 1 [facility] mg tablet 7-15 TABLET BY ity o f 00:00: MOUTH [place] 00 EVERY DAY Medical Branch LOSARTAN 50 2022-0 Yes [id number] TAKE 1 [facility] mg tablet 7-15 TABLET BY ity o f 00:00: MOUTH [place] 00 EVERY DAY Medical Branch LOSARTAN 50 2022-0 Yes [id number] TAKE 1 [facility] mg tablet 7-15 TABLET BY ity o f 00:00: MOUTH [place] 00 EVERY DAY Medical Branch LOSARTAN 50 2022-0 Yes [id number] TAKE 1 [facility] mg tablet 7-15 TABLET BY ity o f 00:00: MOUTH [place] 00 EVERY DAY Medical Branch [facility] 2021-0 Yes [id number] TAKE 1 [facility] N 10 mg 6-30 TABLET BY ity of tablet 00:00: MOUTH 00 EVERYDAY Medical AT BEDTIME [facility] 2021-0 Yes [id number] TAKE 1 [facility] N 10 mg 6-30 TABLET BY ity of tablet 00:00: MOUTH EVERYDAY Medical AT BEDTIME [facility] 2021-0 Yes [id number] TAKE 1 [facility] N 10 mg 6-30 TABLET BY ity of tablet 00:00: MOUTH EVERYDAY Medical AT BEDTIME [facility] 2021-0 Yes [id number] TAKE 1 [facility] N 10 mg 6-30 TABLET BY ity of tablet 00:00: MOUTH EVERYDAY Medical AT BEDTIME [facility] 0 Yes [id number] TAKE 1 [facility] N 10 mg 6-30 TABLET BY ity of tablet 00:00: MOUTH EVERYDAY Medical AT BEDTIME [facility] 0 Yes [id number] TAKE 1 [facility] N 10 mg 6-30 TABLET BY ity of tablet 00:00: MOUTH EVERYDAY Medical AT BEDTIME [facility] 0 Yes [id number] TAKE 1 [facility] N 10 mg 6-30 TABLET BY ity of tablet 00:00: MOUTH EVERYDAY Medical AT BEDTIME [facility] 0 Yes [id number] TAKE 1 [facility] N 10 mg 6-30 TABLET BY ity of tablet 00:00: MOUTH EVERYDAY Medical AT BEDTIME [place] [facility] Yes [id number] TAKE 1 [facility] N 10 mg 6-30 TABLET BY ity of tablet 00:00: MOUTH EVERYDAY Medical AT B[facility] [place] [facility] [id number] [facility] 1 [facility] N 10 mg 6-30 TABLET BY ity [facility] tablet [id number] N 10 mg 6-30 TABLET BY ity of tablet 00:00: MOUTH EVERYDAY Medical AT BEDTIME [facility] 2021-0 Yes [id number] TAKE 1 [facility] N 10 mg 6-30 TABLET BY ity of tablet 00:00: MOUTH [place] 00 EVERYDAY Medical AT BEDTIME [facility] 2021-[facility] Yes [id number] TAKE 1 [facility] N 10 mg 6-30 TABLET BY ity of tablet 00:00: MOUTH [place] 00 EVERYDAY Medical [facility] [id number] TAKE 1 [facility] N 10 mg 6-30 TABLET BY ity of tablet 00:00: MOUTH EVERYDAY Medical AT BEDTIME [place] [facility] 2021-0 Yes [id number] TAKE 1 [facility] N 10 mg 6-30 TABLET BY ity of tablet 00:00: MOUTH [place] EVERYDAY Medical AT BEDTIME [place] [facility] [id number] TAKE 1 [facility] N 10 mg 6-30 TABLET BY ity of tablet 00:00: MOUTH EVERYDAY Medical AT BEDTIME [place] [facility] [id number] TAKE 1 [facility] N 10 mg 6-30 TABLET BY ity of tablet 00:00: MOUTH EVERYDAY Medical AT BEDTIME [place] [facility] [id number] TAKE 1 [facility] N 10 mg 6-30 TABLET BY ity of tablet 00:00: MOUTH EVERYDAY Medical AT BEDTIME [place] [facility] Yes [id number] TAKE 1 [facility] N 10 mg 6-30 TABLET BY ity of tablet 00:00: MOUTH EVERYDAY Medical AT BEDTIME [place] [facility] [id number] TAKE 1 [facility] N 10 mg 6-30 TABLET BY ity of tablet 00:00: MOUTH EVERYDAY Medical AT BEDTIME [place] [facility] 2021-0 Yes [id number] TAKE 1 [facility] N 10 mg 6-30 TABLET BY ity of tablet 00:00: MOUTH EVERYDAY Medical AT BEDTIME [place] [facility] Yes [id number] TAKE 1 [facility] N 10 mg 6-30 TABLET BY ity of tablet 00:00: MOUTH EVERYDAY Medical AT BEDTIME [place] [facility] Yes [id number] TAKE 1 [facility] N 10 mg 6-30 TABLET BY ity of tablet 00:00: MOUTH EVERYDAY Medical AT BEDTIME [place] [facility] Yes [id number] TAKE 1 [facility] N 10 mg 6-30 TABLET BY ity of tablet 00:00: MOUTH EVERYDAY Medical AT BEDTIME [place] [facility] 2021-0 Yes [id number] TAKE 1 [facility] N 10 mg 6-30 TABLET BY ity of tablet 00:00: MOUTH [place] 00 EVERYDAY Medical AT BEDTIME [facility] 2021-0 Yes [id number] TAKE 1 [facility] N 10 mg 6-30 TABLET BY ity of tablet 00:00: MOUTH EVERYDAY Medical AT BEDTIME [facility] [id number] TAKE 1 [facility] N 10 mg 6-30 TABLET BY ity of tablet 00:00: MOUTH EVERYDAY Medical AT BEDTIME [facility] Yes [id number] TAKE 1 [facility] N 10 mg 6-30 TABLET BY ity of tablet 00:00: MOUTH EVERYDAY Medical AT BEDTIME [facility] [id number] TAKE 1 [facility] N 10 mg 6-30 TABLET BY ity of tablet 00:00: MOUTH EVERYDAY Medical AT [facility]EDTIME [facility] [id number] TAKE 1 [facility] N 10 mg 6-30 TABLET BY ity of tablet 00:00: MOUTH EVERYDAY Medical AT BEDTIME [facility] Yes [id number] TAKE 1 [facility] N 10 mg 6-30 TABLET BY ity of tablet 00:00: MOUTH EVERYDAY Medical AT [facility]EDTIME [facility] [id number] TAKE 1 [facility] N 10 mg 6-30 TABLET BY ity of tablet 00:00: MOUTH EVERYDAY Medical AT BEDTIME [facility] Yes [id number] TAKE 1 [facility] N 10 mg 6-30 TABLET BY ity of tablet 00:00: MOUTH EVERYDAY Medical AT BEDTIME [facility] Yes [id number] TAKE 1 [facility] N 10 mg 6-30 TABLET BY ity of tablet 00:00: MOUTH EVERYDAY Medical AT BEDTIME [facility] Yes [id number] TAKE 1 [facility] N 10 mg 6-30 TABLET BY ity of tablet 00:00: MOUTH [place] EVERYDAY Medical AT BEDTIME [facility] Yes [id number] TAKE 1 [facility] N 10 mg 6-30 TABLET BY ity of tablet 00:00: MOUTH EVERYDAY Medical AT BEDTIME [facility] Yes [id number] TAKE 1 [facility] N 10 mg 6-30 TABLET BY ity of tablet 00:00: MOUTH [place] 00 EVERYDAY Medical AT BEDTIME [facility] Yes [id number] TAKE 1 [facility] N 10 mg 6-30 TABLET BY ity of tablet 00:00: MOUTH [place] 00 EVERYDAY Medical AT BEDTIME Branch [facility] 2021-0 Yes [id number] TAKE 1 [facility] N 10 mg 6-30 TABLET BY ity of tablet 00:00: MOUTH EVERYDAY Medical [facility] Yes [id number] TAKE 1 [facility] N 10 mg 6-30 TABLET BY ity of tablet 00:00: MOUTH [place] 00 EVERYDAY Medical AT [facility]EDTIME [facility] Yes [id number] TAKE 1 [facility] N 10 mg 6-30 TABLET BY ity of tablet 00:00: MOUTH [place] EVERYDAY Medical AT BEDTIME [facility] Yes [id number] TAKE 1 [facility] N 10 mg 6-30 TABLET BY ity of tablet 00:00: MOUTH EVERYDAY Medical AT BEDTIME [facility] Yes [id number] TAKE 1 [facility] N 10 mg 6-30 TABLET BY ity of tablet 00:00: MOUTH EVERYDAY Medical AT BEDTIME [facility] Yes [id number] TAKE 1 [facility] N 10 mg 6-30 TABLET BY ity of tablet 00:00: MOUTH [place] 00 EVERYDAY Medical AT BEDTIME [facility] Yes [id number] TAKE 1 [facility] N 10 mg 6-30 TABLET BY ity of tablet 00:00: MOUTH 00 EVERYDAY Medical AT [facility]EDTIME [facility] Yes [id number] TAKE 1 [facility] N 10 mg 6-30 TABLET BY ity of tablet 00:00: MOUTH 00 EVERYDAY Medical AT BEDTIME [place] [facility] Yes [id number] TAKE 1 [facility] N 10 mg 6-30 TABLET BY ity of tablet 00:00: MOUTH [place] 00 EVERYDAY Medical AT BEDTIME [place] [facility] Yes [id number] TAKE 1 [facility] N 10 mg 6-30 TABLET BY ity of tablet 00:00: MOUTH 00 EVERYDAY Medical AT BEDTIME [place] [facility] Yes [id number] TAKE 1 [facility] N 10 mg 6-30 TABLET BY ity of tablet 00:00: MOUTH [place] 00 EVERYDAY Medical AT BEDTIME [facility] 2021-0 Yes [id number] TAKE 1 [facility] N 10 mg 6-30 TABLET BY ity of tablet 00:00: MOUTH [place] EVERYDAY Medical AT BEDTIME [facility] 2021-0 Yes [id number] TAKE 1 [facility] N 10 mg 6-30 TABLET BY ity of tablet 00:00: MOUTH EVERYDAY Medical AT BEDTIME [place] [facility] 2021-0 Yes [id number] TAKE 1 [facility] N 10 mg 6-30 TABLET BY ity of tablet 00:00: MOUTH [place] EVERYDAY Medical AT BEDTIME [facility] 2021-0 Yes [id number] TAKE 1 [facility] N 10 mg 6-30 TABLET BY ity of tablet 00:00: MOUTH EVERYDAY Medical AT BEDTIME [place] [facility] Yes [id number] TAKE 1 [facility] N 10 mg 6-30 TABLET BY ity of tablet 00:00: MOUTH EVERYDAY Medical AT BEDTIME [place] [facility] Yes [id number] TAKE 1 [facility] N 10 mg 6-30 TABLET BY ity of tablet 00:00: MOUTH EVERYDAY Medical AT BEDTIME [place] [facility] 2021-0 Yes [id number] TAKE 1 [facility] N 10 mg 6-30 TABLET BY ity of tablet 00:00: MOUTH EVERYDAY Medical AT BEDTIME [place] [facility] Yes [id number] TAKE 1 [facility] N 10 mg 6-30 TABLET BY ity of tablet 00:00: MOUTH EVERYDAY Medical AT BEDTIME [place] [facility] Yes [id number] TAKE 1 [facility] N 10 mg 6-30 TABLET BY ity of tablet 00:00: MOUTH EVERYDAY Medical AT BEDTIME [place] [facility] Yes [id number] TAKE 1 [facility] N 10 mg 6-30 TABLET BY ity of tablet 00:00: MOUTH EVERYDAY Medical AT BEDTIME [place] [facility] Yes [id number] TAKE 1 [facility] N 10 mg 6-30 TABLET BY ity of tablet 00:00: MOUTH EVERYDAY Medical AT BEDTIME [place] [facility] Yes [id number] TAKE 1 [facility] N 10 mg 6-30 TABLET BY ity of tablet 00:00: MOUTH [place] 00 EVERYDAY Medical AT BEDTIME Branch AT[facility]I 2021-0 Yes [id number] TAKE 1 [facility] N 10 mg 6-30 TABLET BY ity of tablet 00:00: MOUTH [place] 00 EVERYDAY Medical AT BEDTIME Branch ATORVASTATI 2021-0 Yes [id number] TAKE 1 [facility] N 10 mg 6-30 TABLET BY ity of tablet 00:00: MOUTH [place] 00 EVERYDAY Medical AT BEDTIME Branch OMEPRAZOLE 2021-0 Yes [id number] TAKE 1 [facility] 20 mg 6-27 CAPSULE BY ity of capsule 00:00: MOUTH [place] 00 EVERY DAY Medical Branch METOPROLOL 2021-0 Yes [id number] TAKE 1 U nivers SUCCINATE 6-27 TABLET BY ity o f XL 50 mg 24 00:00: MOUTH [place] hr tablet 00 EVERY DAY Medic al Branch OMEPRAZOLE 2021-0 Yes [id number] TAKE 1 [facility] 20 mg 6-27 CAPSULE BY ity of capsule 00:00: MOUTH [place] 00 EVERY DAY Medical Branch METOPROLOL 2021-0 Yes [id number] TAKE 1 U nivers SUCCINATE 6-27 TABLET BY ity o f XL 50 mg 24 00:00: MOUTH [place] hr tablet 00 EVERY DAY Medic al Branch OMEPRAZOLE 2021-0 Yes [id number] TAKE 1 [facility] 20 mg 6-27 CAPSULE BY ity of capsule 00:00: MOUTH [place] 00 EVERY DAY Medical Branch METOPROLOL 2021-0 Yes [id number] TAKE 1 U nivers SUCCINATE 6-27 TABLET BY ity o f XL 50 mg 24 00:00: MOUTH [place] hr tablet 00 EVERY DAY Medic al Branch OMEPRAZOLE 2021-0 Yes [id number] TAKE 1 [facility] 20 mg 6-27 CAPSULE BY ity of capsule 00:00: MOUTH [place] 00 EVERY DAY Medical Branch METOPROLOL 2021-0 Yes [id number] TAKE 1 U nivers SUCCINATE 6-27 TABLET BY ity o f XL 50 mg 24 00:00: MOUTH [place] hr tablet 00 EVERY DAY Medic al Branch OMEPRAZOLE 2021-0 Yes [id number] TAKE 1 [facility] 20 mg 6-27 CAPSULE BY ity of capsule 00:00: MOUTH [place] 00 EVERY DAY Medical Branch METOPROLOL 2021-0 Yes [id number] TAKE 1 U nivers SUCCINATE 6-27 TABLET BY ity o f XL 50 mg 24 00:00: MOUTH [place] hr tablet 00 EVERY DAY Medic al Branch OMEPRAZOLE 2022-0 Yes [id number] TAKE 1 [facility] 20 mg 6-27 CAPSULE BY ity of capsule 00:00: MOUTH [place] 00 EVERY DAY Medical Branch METOPROLOL 2021-0 Yes [id number] TAKE 1 U nivers SUCCINATE 6-27 TABLET BY ity o f XL 50 mg 24 00:00: MOUTH [place] hr tablet 00 EVERY DAY Medic al Branch OMEPRAZOLE 2021-0 Yes [id number] TAKE 1 [facility] 20 mg 6-27 CAPSULE BY ity of capsule 00:00: MOUTH [place] 00 EVERY DAY Medical Branch METOPROLOL 2021-0 Yes [id number] TAKE 1 U nivers SUCCINATE 6-27 TABLET BY ity o f XL 50 mg 24 00:00: MOUTH [place] hr tablet 00 EVERY DAY Medic al Branch OMEPRAZOLE 0 Yes [id number] TAKE 1 [facility] 20 mg 6-27 CAPSULE BY ity of capsule 00:00: MOUTH [place] 00 EVERY DAY Medical Branch METOPROLOL 0 Yes [id number] TAKE 1 U nivers SUCCINATE 6-27 TABLET BY ity o f XL 50 mg 24 00:00: MOUTH [place] hr tablet 00 EVERY DAY Medic al Branch OMEPRAZOLE 0 Yes [id number] TAKE 1 [facility] 20 mg 6-27 CAPSULE BY ity of capsule 00:00: MOUTH [place] 00 EVERY DAY Medical Branch METOPROLOL 0 Yes [id number] TAKE 1 U nivers SUCCINATE 6-27 TABLET BY ity o f XL 50 mg 24 00:00: MOUTH [place] hr tablet 00 EVERY DAY Medic al Branch OMEPRAZOLE 0 Yes [id number] TAKE 1 [facility] 20 mg 6-27 CAPSULE BY ity of capsule 00:00: MOUTH [place] 00 EVERY DAY Medical Branch METOPROLOL 2021-0 Yes [id number] TAKE 1 U nivers SUCCINATE 6-27 TABLET BY ity o f XL 50 mg 24 00:00: MOUTH [place] hr tablet 00 EVERY DAY Medic al Branch OMEPRAZOLE 2021-0 Yes [id number] TAKE 1 [facility] 20 mg 6-27 CAPSULE BY ity of capsule 00:00: MOUTH [place] 00 EVERY DAY Medical Branch METOPROLOL 2021-0 Yes [id number] TAKE 1 U nivers SUCCINATE 6-27 TABLET BY ity o f XL 50 mg 24 00:00: MOUTH [place] hr tablet 00 EVERY DAY Medic al Branch OMEPRAZOLE 2021-0 Yes [id number] TAKE 1 [facility] 20 mg 6-27 CAPSULE BY ity of capsule 00:00: MOUTH [place] 00 EVERY DAY Medical Branch METOPROLOL 2021-0 Yes [id number] TAKE 1 U nivers SUCCINATE 6-27 TABLET BY ity o f XL 50 mg 24 00:00: MOUTH [place] hr tablet 00 EVERY DAY Medic al Branch OMEPRAZOLE 2021-0 Yes [id number] TAKE 1 [facility] 20 mg 6-27 CAPSULE BY ity of capsule 00:00: MOUTH [place] 00 EVERY DAY Medical Branch METOPROLOL 2021-0 Yes [id number] TAKE 1 U nivers SUCCINATE 6-27 TABLET BY ity o f XL 50 mg 24 00:00: MOUTH [place] hr tablet 00 EVERY DAY Medic al Branch OMEPRAZOLE 2021-0 Yes [id number] TAKE 1 [facility] 20 mg 6-27 CAPSULE BY ity of capsule 00:00: MOUTH [place] 00 EVERY DAY [facility] METOPROLOL 2021-0 Yes [id number] TAKE 1 [facility] SUCCINATE 6-27 TABLET BY ity o f XL 50 mg 24 00:00: MOUTH [place] hr tablet 00 EVERY DAY Medic al Branch OMEPRAZOLE 2021-0 Yes [id number] TAKE 1 [facility] 20 mg 6-27 CAPSULE BY ity of capsule 00:00: MOUTH [place] 00 EVERY DAY Medical Branch METOPROLOL 2021-0 Yes [id number] TAKE 1 [facility] nivers SUCCINATE 6-27 TABLET BY ity o f XL 50 mg 24 00:00: MOUTH [place] hr tablet 00 EVERY DAY Medic al Branch OMEPRAZOLE 2021-0 Yes [id number] TAKE 1 [facility] 20 mg 6-27 CAPSULE BY ity of capsule 00:00: MOUTH [place] 00 EVERY DAY Medical Branch METOPROLOL 2021-0 Yes [id number] TAKE 1 [facility]ivers SUCCINATE 6-27 TABLET BY ity o f XL 50 mg 24 00:00: MOUTH [place] hr tablet 00 EVERY DAY Medic al Branch OMEPRAZOLE 2021-0 Yes [id number] TAKE 1 [facility] 20 mg 6-27 CAPSULE BY ity of capsule 00:00: MOUTH [place] 00 EVERY DAY Medical Branch METOPROLOL 2021-0 Yes [id number] TAKE 1 [facility] nivers SUCCINATE 6-27 TABLET BY ity o f XL 50 mg 24 00:00: MOUTH [place] hr tablet 00 EVERY DAY Medic al Branch OMEPRAZOLE 2021-0 Yes [id number] TAKE 1 [facility] 20 mg 6-27 CAPSULE BY ity of capsule 00:00: MOUTH [place] 00 EVERY DAY Medical Branch METOPROLOL 2021-0 Yes [id number] TAKE 1 [facility] nivers SUCCINATE 6-27 TABLET BY ity o f XL 50 mg 24 00:00: MOUTH [place] hr tablet 00 EVERY DAY Medic al Branch OMEPRAZOLE 2021-0 Yes [id number] TAKE 1 [facility] 20 mg 6-27 CAPSULE BY ity of capsule 00:00: MOUTH [place] 00 EVERY DAY Medical Branch METOPROLOL 2021-0 Yes [id number] TAKE 1 [facility] nivers SUCCINATE 6-27 TABLET BY ity o f XL 50 mg 24 00:00: MOUTH [place] hr tablet 00 EVERY DAY Medic al Branch OMEPRAZOLE 2021-0 Yes [id number] TAKE 1 [facility] 20 mg 6-27 CAPSULE BY ity of capsule 00:00: MOUTH [place] 00 EVERY DAY Medical Branch METOPROLOL 2021-0 Yes [id number] TAKE 1 [facility] nivers SUCCINATE 6-27 TABLET BY ity o f XL 50 mg 24 00:00: MOUTH [place] hr tablet 00 EVERY DAY Medic al Branch OMEPRAZOLE 0 Yes [id number] TAKE 1 [facility] 20 mg 6-27 CAPSULE BY ity of capsule 00:00: MOUTH [place] 00 EVERY DAY Medical Branch METOPROLOL 2021-0 Yes [id number] TAKE 1 [facility] nivers SUCCINATE 6-27 TABLET BY ity o f XL 50 mg 24 00:00: MOUTH [place] hr tablet 00 EVERY DAY Medic al Branch OMEPRAZOLE 2021-0 Yes [id number] TAKE 1 [facility] 20 mg 6-27 CAPSULE BY ity of capsule 00:00: MOUTH [place] 00 EVERY DAY Medical Branch METOPROLOL 2021-0 Yes [id number] TAKE 1 [facility] nivers SUCCINATE 6-27 TABLET BY ity o f XL 50 mg 24 00:00: MOUTH [place] hr tablet 00 EVERY DAY Medic al Branch OMEPRAZOLE 2021-0 Yes [id number] TAKE 1 [facility] 20 mg 6-27 CAPSULE BY ity of capsule 00:00: MOUTH [place] 00 EVERY DAY Medical Branch METOPROLOL 2021-0 Yes [id number] TAKE 1 [facility] nivers SUCCINATE 6-27 TABLET BY ity o f XL 50 mg 24 00:00: MOUTH [place] hr tablet 00 EVERY DAY Medic al Branch OMEPRAZOLE 2021-0 Yes [id number] TAKE 1 [facility] 20 mg 6-27 CAPSULE BY ity of capsule 00:00: MOUTH [place] 00 EVERY DAY Medical Branch METOPROLOL 2021-0 Yes [id number] TAKE 1 [facility]ivers SUCCINATE 6-27 TABLET BY ity o f XL 50 mg 24 00:00: MOUTH [place] hr tablet 00 EVERY DAY Medic al Branch OMEPRAZOLE 2021-0 Yes [id number] TAKE 1 [facility] 20 mg 6-27 CAPSULE BY ity of capsule 00:00: MOUTH [place] 00 EVERY DAY Medical Branch METOPROLOL 2021-0 Yes [id number] TAKE 1 [facility]ivers SUCCINATE 6-27 TABLET BY ity o f XL 50 mg 24 00:00: MOUTH [place] hr tablet 00 EVERY DAY Medic al Branch OMEPRAZOLE 2021-0 Yes [id number] TAKE 1 [facility] 20 mg 6-27 CAPSULE BY ity of capsule 00:00: MOUTH [place] 00 EVERY DAY Medical [facility] METOPROLOL 2021-0 Yes [id number] TAKE 1 [facility] nivers SUCCINATE 6-27 TABLET BY ity o f XL 50 mg 24 00:00: MOUTH [place] hr tablet 00 EVERY DAY Medic al Branch OMEPRAZOLE 2021-0 Yes [id number] TAKE 1 [facility] 20 mg 6-27 CAPSULE BY ity of capsule 00:00: MOUTH [place] 00 EVERY DAY Medical Branch METOPROLOL 2021-0 Yes [id number] TAKE 1 [facility]ivers SUCCINATE 6-27 TABLET BY ity o f XL 50 mg 24 00:00: MOUTH [place] hr tablet 00 EVERY DAY Medic al Branch OMEPRAZOLE 2021-0 Yes [id number] TAKE 1 [facility] 20 mg 6-27 CAPSULE BY ity of capsule 00:00: MOUTH [place] 00 EVERY DAY [facility] METOPROLOL 2021-0 Yes [id number] TAKE 1 [facility]ivers SUCCINATE 6-27 TABLET BY ity o f XL 50 mg 24 00:00: MOUTH [place] hr tablet 00 EVERY DAY Medic al Branch OMEPRAZOLE 2021-0 Yes [id number] TAKE 1 [facility] 20 mg 6-27 CAPSULE BY ity of capsule 00:00: MOUTH [place] 00 EVERY DAY Medical [facility] METOPROLOL 2021-0 Yes [id number] TAKE 1 [facility] nivers SUCCINATE 6-27 TABLET BY ity o f XL 50 mg 24 00:00: MOUTH [place] hr tablet 00 EVERY DAY Medic al Branch OMEPRAZOLE 2021-0 Yes [id number] TAKE 1 [facility] 20 mg 6-27 CAPSULE BY ity of capsule 00:00: MOUTH [place] 00 EVERY DAY Medical [facility] METOPROLOL 2021-0 Yes [id number] TAKE 1 [facility]ivers SUCCINATE 6-27 TABLET BY ity o f XL 50 mg 24 00:00: MOUTH [place] hr tablet 00 EVERY DAY Medic al Branch OMEPRAZOLE 2022-0 Yes [id number] TAKE 1 [facility] 20 mg 6-27 CAPSULE BY ity of capsule 00:00: MOUTH [place] 00 EVERY DAY Medical Branch METOPROLOL 2021-0 Yes [id number] TAKE 1 [facility] SUCCINATE 6-27 TABLET BY ity o f XL 50 mg 24 00:00: MOUTH [place] hr tablet 00 EVERY DAY Medic al Branch OMEPRAZOLE 2021-0 Yes [id number] TAKE 1 [facility] 20 mg 6-27 CAPSULE BY ity of capsule 00:00: MOUTH [place] 00 EVERY DAY Medical Branch METOPROLOL 2021-0 Yes [id number] TAKE 1 [facility] SUCCINATE 6-27 TABLET BY ity o f XL 50 mg 24 00:00: MOUTH [place] hr tablet 00 EVERY DAY Medic al Branch OMEPRAZOLE 0 Yes [id number] TAKE 1 [facility] 20 mg 6-27 CAPSULE BY ity of capsule 00:00: MOUTH [place] 00 EVERY DAY Medical Branch METOPROLOL 0 Yes [id number] TAKE 1 [facility] SUCCINATE 6-27 TABLET BY ity o f XL 50 mg 24 00:00: MOUTH [place] hr tablet 00 EVERY DAY Medic al Branch OMEPRAZOLE 0 Yes [id number] TAKE 1 [facility] 20 mg 6-27 CAPSULE BY ity of capsule 00:00: MOUTH [place] 00 EVERY DAY Medical Branch METOPROLOL 0 Yes [id number] TAKE 1 [facility] nivers SUCCINATE 6-27 TABLET BY ity o f XL 50 mg 24 00:00: MOUTH [place] hr tablet 00 EVERY DAY Medic al Branch OMEPRAZOLE 0 Yes [id number] TAKE 1 [facility] 20 mg 6-27 CAPSULE BY ity of capsule 00:00: MOUTH [place] 00 EVERY DAY Medical Branch METOPROLOL 2021-0 Yes [id number] TAKE 1 [facility] nivers SUCCINATE 6-27 TABLET BY ity o f XL 50 mg 24 00:00: MOUTH [place] hr tablet 00 EVERY DAY Medic al Branch OMEPRAZOLE 2021-0 Yes [id number] TAKE 1 [facility] 20 mg 6-27 CAPSULE BY ity of capsule 00:00: MOUTH [place] 00 EVERY DAY Medical Branch METOPROLOL 2021-0 Yes [id number] TAKE 1 [facility]ivers SUCCINATE 6-27 TABLET BY ity o f XL 50 mg 24 00:00: MOUTH [place] hr tablet 00 EVERY DAY Medic al Branch OMEPRAZOLE 2021-0 Yes [id number] TAKE 1 [facility] 20 mg 6-27 CAPSULE BY ity of capsule 00:00: MOUTH [place] 00 EVERY DAY [facility] Branch METOPROLOL 0 Yes [id number] TAKE 1 [facility] nivers SUCCINATE 6-27 TABLET BY ity o f XL 50 mg 24 00:00: MOUTH [place] hr tablet 00 EVERY DAY Medic al Branch OMEPRAZOLE 2021-0 Yes [id number] TAKE 1 [facility] 20 mg 6-27 CAPSULE BY ity of capsule 00:00: MOUTH [place] 00 EVERY DAY [facility] Branch METOPROLOL 0 Yes [id number] TAKE 1 [facility]ivers SUCCINATE 6-27 TABLET BY ity o f XL 50 mg 24 00:00: MOUTH [place] hr tablet 00 EVERY DAY Medic al Branch OMEPRAZOLE 0 Yes [id number] TAKE 1 [facility] 20 mg 6-27 CAPSULE BY ity of capsule 00:00: MOUTH [place] 00 EVERY DAY [facility] Branch METOPROLOL 0 Yes [id number] TAKE 1 [facility]ivers SUCCINATE 6-27 TABLET BY ity o f XL 50 mg 24 00:00: MOUTH [place] hr tablet 00 EVERY DAY Medic al Branch OMEPRAZOLE 0 Yes [id number] TAKE 1 [facility] 20 mg 6-27 CAPSULE BY ity of capsule 00:00: MOUTH [place] 00 EVERY DAY [facility] Branch METOPROLOL 0 Yes [id number] TAKE 1 [facility] nivers SUCCINATE 6-27 TABLET BY ity o f XL 50 mg 24 00:00: MOUTH [place] hr tablet 00 EVERY DAY Medic al Branch OMEPRAZOLE 0 Yes [id number] TAKE 1 [facility] 20 mg 6-27 CAPSULE BY ity of capsule 00:00: MOUTH [place] 00 EVERY DAY [facility] Branch METOPROLOL 0 Yes [id number] TAKE 1 [facility] nivers SUCCINATE 6-27 TABLET BY ity o f XL 50 mg 24 00:00: MOUTH [place] hr tablet 00 EVERY DAY Medic al Branch METOPROLOL 0 Yes [id number] TAKE 1 [facility] nivers SUCCINATE 6-27 TABLET BY ity o f XL 50 mg 24 00:00: MOUTH [place] hr tablet 00 EVERY DAY Medic al Branch METOPROLOL 0 Yes [id number] TAKE 1 U nivers SUCCINATE 6-27 TABLET BY ity o f XL 50 mg 24 00:00: MOUTH [place] hr tablet 00 EVERY DAY Medic al Branch METOPROLOL 0 Yes [id number] TAKE 1 U nivers SUCCINATE 6-27 TABLET BY ity o f XL 50 mg 24 00:00: MOUTH [place] hr tablet 00 EVERY DAY Medic al Branch METOPROLOL Yes [id number] TAKE 1 U nivers SUCCINATE 6-27 TABLET BY ity o f XL 50 mg 24 00:00: MOUTH [place] hr tablet 00 EVERY DAY Medic al Branch METOPROLOL Yes [id number] TAKE 1 U nivers SUCCINATE 6-27 TABLET BY ity o f XL 50 mg 24 00:00: MOUTH [place] hr tablet 00 EVERY DAY Medic al Branch METOPROLOL Yes [id number] TAKE 1 U nivers SUCCINATE 6-27 TABLET BY ity o f XL 50 mg 24 00:00: MOUTH [place] hr tablet 00 EVERY DAY Medic al Branch METOPROLOL Yes [id number] TAKE 1 U nivers SUCCINATE 6-27 TABLET BY ity o f XL 50 mg 24 00:00: MOUTH [place] hr tablet 00 EVERY DAY Medic al Branch METOPROLOL Yes [id number] TAKE 1 U nivers SUCCINATE 6-27 TABLET BY ity o f XL 50 mg 24 00:00: MOUTH [place] hr tablet 00 EVERY DAY Medic al Branch METOPROLOL Yes [id number] TAKE 1 U nivers SUCCINATE 6-27 TABLET BY ity o f XL 50 mg 24 00:00: MOUTH [place] hr tablet 00 EVERY DAY Medic al Branch METOPROLOL Yes [id number] TAKE 1 U nivers SUCCINATE 6-27 TABLET BY ity o f XL 50 mg 24 00:00: MOUTH [place] hr tablet 00 EVERY DAY Medic al Branch METOPROLOL Yes [id number] TAKE 1 U nivers SUCCINATE 6-27 TABLET BY ity o f XL 50 mg 24 00:00: MOUTH [place] hr tablet 00 EVERY DAY Medic al Branch METOPROLOL Yes [id number] TAKE 1 U nivers SUCCINATE 6-27 TABLET BY ity o f XL 50 mg 24 00:00: MOUTH [place] hr tablet 00 EVERY DAY Medic al Branch METOPROLOL Yes [id number] TAKE 1 U nivers SUCCINATE 6-27 TABLET BY ity o f XL 50 mg 24 00:00: MOUTH [place] hr tablet 00 EVERY DAY Medic al Branch METOPROLOL Yes [id number] TAKE 1 U nivers SUCCINATE 6-27 TABLET BY ity o f XL 50 mg 24 00:00: MOUTH [place] hr tablet 00 EVERY DAY Medic al Branch METOPROLOL Yes [id number] TAKE 1 U nivers SUCCINATE 6-27 TABLET BY ity o f XL 50 mg 24 00:00: MOUTH [place] hr tablet 00 EVERY DAY Medic al Branch METOPROLOL Yes [id number] TAKE 1 U nivers SUCCINATE 6-27 TABLET BY ity o f XL 50 mg 24 00:00: MOUTH [place] hr tablet 00 EVERY DAY Medic al Branch METOPROLOL Yes [id number] TAKE 1 U nivers SUCCINATE 6-27 TABLET BY ity o f XL 50 mg 24 00:00: MOUTH [place] hr tablet 00 EVERY DAY Medic al Branch METOPROLOL Yes [id number] TAKE 1 U nivers SUCCINATE 6-27 TABLET BY ity o f XL 50 mg 24 00:00: MOUTH [place] hr tablet 00 EVERY DAY Medic al Branch METOPROLOL Yes [id number] TAKE 1 U nivers SUCCINATE 6-27 TABLET BY ity o f XL 50 mg 24 00:00: MOUTH [place] hr tablet 00 EVERY DAY Medic al Branch METOPROLOL Yes [id number] TAKE 1 U nivers SUCCINATE 6-27 TABLET BY ity o f XL 50 mg 24 00:00: MOUTH [place] hr tablet 00 EVERY DAY Medic al Branch METOPROLOL Yes [id number] TAKE 1 U nivers SUCCINATE 6-27 TABLET BY ity o f XL 50 mg 24 00:00: MOUTH [place] hr tablet 00 EVERY DAY Medic al Branch METOPROLOL Yes [id number] TAKE 1 U nivers SUCCINATE 6-27 TABLET BY ity o f XL 50 mg 24 00:00: MOUTH [place] hr tablet 00 EVERY DAY Medic al Branch OMEPRAZOLE 2022- No [id number] TAKE 1 [facility] 20 mg 6-27 05-10 CAPSULE BY ity of capsule 00:00: 00:00 MOUTH [place] 00 :00 EVERY DAY Medical Branch terbinafine 2021- No [id number] Apply to [facility] HCL 1 % 6-14 08-29 area(s) 2 ity of cream 00:00: 00:00 (two) [place] 00 :00 times Medical daily. Branch escitalopra Yes [id number] 20mg Take 1 [facility] m oxalate 6-08 tablet by ity o f 20 mg 00:00: mouth [place] tablet 00 daily. Medical Branch escitalopra Yes [id number] 20mg Take 1 [facility] m oxalate 6-08 tablet by ity o f 20 mg 00:00: mouth [place] tablet 00 daily. [facility] Branch escitalopra Yes [id number] 20mg Take 1 [facility] m oxalate 6-08 tablet by ity o f 20 mg 00:00: mouth [place] tablet 00 daily. [facility] Branch escitalopra Yes [id number] 20mg Take 1 [facility] m oxalate 6-08 tablet by ity o f 20 mg 00:00: mouth [place] tablet 00 daily. Medical Branch escitalopra Yes [id number] 20mg Take 1 [facility] m oxalate 6-08 tablet by ity o f 20 mg 00:00: mouth [place] tablet 00 daily. [facility] Branch escitalopra Yes [id number] 20mg Take 1 [facility] m oxalate 6-08 tablet by ity o f 20 mg 00:00: mouth [place] tablet 00 daily. [facility] Branch escitalopra Yes [id number] 20mg Take 1 [facility] m oxalate 6-08 tablet by ity o f 20 mg 00:00: mouth [place] tablet 00 daily. [facility] Branch escitalopra Yes [id number] 20mg Take 1 [facility] m oxalate 6-08 tablet by ity o f 20 mg 00:00: mouth [place] tablet 00 daily. [facility] Branch escitalopra Yes [id number] 20mg Take 1 [facility] m oxalate 6-08 tablet by ity o f 20 mg 00:00: mouth [place] tablet 00 daily. [facility] Branch escitalopra Yes [id number] 20mg Take 1 [facility] m oxalate 6-08 tablet by ity o f 20 mg 00:00: mouth [place] tablet 00 daily. Medical Branch escitalopra Yes [id number] 20mg Take 1 [facility] m oxalate 6-08 tablet by ity o f 20 mg 00:00: mouth [place] tablet 00 daily. [facility] Branch escitalopra Yes [id number] 20mg Take 1 [facility] m oxalate 6-08 tablet by ity o f 20 mg 00:00: mouth [place] tablet 00 daily. [facility] Branch escitalopra Yes [id number] 20mg Take 1 [facility] m oxalate 6-08 tablet by ity o f 20 mg 00:00: mouth [place] tablet 00 daily. [facility] Branch escitalopra Yes [id number] 20mg Take 1 [facility] m oxalate 6-08 tablet by ity o f 20 mg 00:00: mouth [place] tablet 00 daily. Medical Branch escitalopra 2021- No [id number] 20mg Take 1 [facility] m oxalate 6-08 12-28 tablet by ity of 20 mg 00:00: 00:00 mouth [place] tablet 00 :00 daily. Medical Branch zolpidem 2021- No [id number] 10mg Take 1 U nivers (AMBIEN) 10 18 - tablet by it y of mg tablet 00:00: 00:00 mouth at [place] 00 :00 bedtime as Medical needed for Branch Insomnia. nystatin 2021- No [id number] Take 5 mL [facility] 100,000 10-04- by mouth 4 ity o f unit/mL 00:00: 00:00 (four) [place] suspension 00 :00 times Medical daily. Branch fluticasone 2020-09 Yes [id number] 1{puff} Inhale 1 [facility] furoate-anu 2-30 Puff ity of anteroL 00:00: daily. [place] ([facility] 00 Medical [place]) Branch 100-25 mcg/dose DsDv albuterol 2020-09 Yes [id number] 2.5mg Inhale 3 [facility] 2.5 mg /3 2-30 mL every 4 ity of mL (0.083 00:00: (four) [place] %) 00 hours as Medical nebulizer needed for Bran ch solution Wheezing or Shortness of Breath. albuterol 2020-09 Yes [id number] 2{puff} Inhale 2 [facility] 90 2-30 Puffs ity of mcg/actuati 00:00: every 6 [place] on inhaler 00 (six) Medical hours as Branch needed for Wheezing or Shortness of Breath. fluticasone 2020-09 Yes [id number] 1{puff} Inhale 1 [facility] furoate-anu 2-30 Puff ity of anteroL 00:00: daily. [place] ([facility] 00 Medical [place]) Branch 100-25 mcg/dose DsDv albuterol 2020-09 Yes [id number] 2.5mg Inhale 3 [facility] 2.5 mg /3 2-30 mL every 4 ity of mL (0.083 00:00: (four) [place] %) 00 hours as Medical nebulizer needed for Bran ch solution Wheezing or Shortness of Breath. albuterol 2020-09 Yes [id number] 2{puff} Inhale 2 [facility] 90 2-30 Puffs ity of mcg/actuati 00:00: every 6 [place] on inhaler 00 (six) Medical hours as Branch needed for Wheezing or Shortness of Breath. fluticasone 2020-09 Yes [id number] 1{puff} Inhale 1 [facility] furoate-aun 2-30 Puff ity of anteroL 00:00: daily. [address]) Branch 100-25 mcg/dose DsDv albuterol 2020-09 Yes [id number] 2.5mg Inhale 3 [facility] 2.5 mg /3 2-30 mL every 4 ity of mL (0.083 00:00: (four) [place] %) 00 hours as Medical nebulizer needed for Bran ch solution Wheezing or Shortness of Breath. albuterol 2020-09 Yes [id number] 2{puff} Inhale 2 [facility] 90 2-30 Puffs ity of mcg/actuati 00:00: every 6 [place] on inhaler 00 (six) Medical hours as Branch needed for Wheezing or Shortness of Breath. fluticasone 2020-09 Yes [id number] 1{puff} Inhale 1 [facility] furoate-anu 2-30 Puff ity of anteroL 00:00: daily. [place] ([address]) Branch 100-25 mcg/dose DsDv albuterol 2020-09 Yes [id number] 2.5mg Inhale 3 [facility] 2.5 mg /3 2-30 mL every 4 ity of mL (0.083 00:00: (four) [place] %) 00 hours as Medical nebulizer needed for Bran ch solution Wheezing or Shortness of Breath. albuterol 2020-09 Yes [id number] 2{puff} Inhale 2 [facility] 90 2-30 Puffs ity of mcg/actuati 00:00: every 6 [place] on inhaler 00 (six) Medical hours as Branch needed for Wheezing or Shortness of Breath. fluticasone 2020-09 Yes [id number] 1{puff} Inhale 1 [facility] furoate-anu 2-30 Puff ity of anteroL 00:00: daily. [place] ([address]) Branch 100-25 mcg/dose DsDv albuterol 2020-09 Yes [id number] 2.5mg Inhale 3 [facility] 2.5 mg /3 2-30 mL every 4 ity of mL (0.083 00:00: (four) [place] %) 00 hours as Medical nebulizer needed for Bran ch solution Wheezing or Shortness of Breath. albuterol 2020-09 Yes [id number] 2{puff} Inhale 2 [facility] 90 2-30 Puffs ity of mcg/actuati 00:00: every 6 [place] on inhaler 00 (six) Medical hours as Branch needed for Wheezing or Shortness of Breath. fluticasone 2020-09 Yes [id number] 1{puff} Inhale 1 [facility] furoate-anu 2-30 Puff ity of anteroL 00:00: daily. [place] ([address]) Branch 100-25 mcg/dose DsDv albuterol 2020-09 Yes [id number] 2.5mg Inhale 3 [facility] 2.5 mg /3 2-30 mL every 4 ity of mL (0.083 00:00: (four) [place] %) 00 hours as Medical nebulizer needed for Bran ch solution Wheezing or Shortness of Breath. albuterol 2020-09 Yes [id number] 2{puff} Inhale 2 [facility] 90 2-30 Puffs ity of mcg/actuati 00:00: every 6 [place] on inhaler 00 (six) Medical hours as Branch needed for Wheezing or Shortness of Breath. fluticasone 2020-09 Yes [id number] 1{puff} Inhale 1 [facility] furoate-anu 2-30 Puff ity of anteroL 00:00: daily. [place] ([address]) Branch 100-25 mcg/dose DsDv albuterol 2020-09 Yes [id number] 2.5mg Inhale 3 [facility] 2.5 mg /3 2-30 mL every 4 ity of mL (0.083 00:00: (four) [place] %) 00 hours as Medical nebulizer needed for Bran ch solution Wheezing or Shortness of Breath. albuterol 2020-09 Yes [id number] 2{puff} Inhale 2 [facility] 90 2-30 Puffs ity of mcg/actuati 00:00: every 6 [place] on inhaler 00 (six) Medical hours as Branch needed for Wheezing or Shortness of Breath. fluticasone 2020-09 Yes [id number] 1{puff} Inhale 1 [facility] furoate-anu 2-30 Puff ity of anteroL 00:00: daily. [place] ([address]) Branch 100-25 mcg/dose DsDv albuterol 2020-09 Yes [id number] 2.5mg Inhale 3 Univers 2.5 mg /3 2-30 mL every 4 ity of mL (0.083 00:00: (four) [place] %) 00 hours as Medical nebulizer needed for Bran ch solution Wheezing or Shortness of Breath. albuterol 2020-09 Yes [id number] 2{puff} Inhale 2 [facility] 90 2-30 Puffs ity of mcg/actuati 00:00: every 6 [place] on inhaler 00 (six) Medical hours as Branch needed for Wheezing or Shortness of Breath. fluticasone 2020-09 Yes [id number] 1{puff} Inhale 1 [facility] furoate-anu 2-30 Puff ity of anteroL 00:00: daily. [place] ([address]) Branch 100-25 mcg/dose DsDv albuterol 2020-09 Yes [id number] 2.5mg Inhale 3 Univers 2.5 mg /3 2-30 mL every 4 ity of mL (0.083 00:00: (four) [place] %) 00 hours as Medical nebulizer needed for Bran ch solution Wheezing or Shortness of Breath. albuterol 2020-09 Yes [id number] 2{puff} Inhale 2 [facility] 90 2-30 Puffs ity of mcg/actuati 00:00: every 6 [place] on inhaler 00 (six) Medical hours as Branch needed for Wheezing or Shortness of Breath. fluticasone 2020-09 Yes [id number] 1{puff} Inhale 1 [facility] furoate-anu 2-30 Puff ity of anteroL 00:00: daily. [place] ([address]) Branch 100-25 mcg/dose DsDv albuterol 2020-09 Yes [id number] 2.5mg Inhale 3 Univers 2.5 mg /3 2-30 mL every 4 ity of mL (0.083 00:00: (four) [place] %) 00 hours as Medical nebulizer needed for Bran ch solution Wheezing or Shortness of Breath. albuterol 2020-09 Yes [id number] 2{puff} Inhale 2 [facility] 90 2-30 Puffs ity of mcg/actuati 00:00: every 6 [place] on inhaler 00 (six) Medical hours as Branch needed for Wheezing or Shortness of Breath. fluticasone 2020-09 Yes [id number] 1{puff} Inhale 1 [facility] furoate-anu 2-30 Puff ity of anteroL 00:00: daily. [place] ([address]) Branch 100-25 mcg/dose DsDv albuterol 2020-09 Yes [id number] 2.5mg Inhale 3 Univers 2.5 mg /3 2-30 mL every 4 ity of mL (0.083 00:00: (four) [place] %) 00 hours as Medical nebulizer needed for Bran ch solution Wheezing or Shortness of Breath. albuterol 2020-09 Yes [id number] 2{puff} Inhale 2 [facility] 90 2-30 Puffs ity of mcg/actuati 00:00: every 6 [place] on inhaler 00 (six) Medical hours as Branch needed for Wheezing or Shortness of Breath. fluticasone 2020-09 Yes [id number] 1{puff} Inhale 1 [facility] furoate-anu 2-30 Puff ity of anteroL 00:00: daily. [place] ([address]) Branch 100-25 mcg/dose DsDv albuterol 2020-09 Yes [id number] 2.5mg Inhale 3 Univers 2.5 mg /3 2-30 mL every 4 ity of mL (0.083 00:00: (four) [place] %) 00 hours as Medical nebulizer needed for Bran ch solution Wheezing or Shortness of Breath. albuterol 2020-09 Yes [id number] 2{puff} Inhale 2 [facility] 90 2-30 Puffs ity of mcg/actuati 00:00: every 6 [place] on inhaler 00 (six) Medical hours as Branch needed for Wheezing or Shortness of Breath. fluticasone 2020-09 Yes [id number] 1{puff} Inhale 1 [facility] furoate-anu 2-30 Puff ity of anteroL 00:00: daily. [place] ([address]) Branch 100-25 mcg/dose DsDv albuterol 2020-09 Yes [id number] 2.5mg Inhale 3 Univers 2.5 mg /3 2-30 mL every 4 ity of mL (0.083 00:00: (four) [place] %) 00 hours as Medical nebulizer needed for Bran ch solution Wheezing or Shortness of Breath. albuterol 2020-09 Yes [id number] 2{puff} Inhale 2 Univers 90 2-30 Puffs ity of mcg/actuati 00:00: every 6 [place] on inhaler 00 (six) Medical hours as Branch needed for Wheezing or Shortness of Breath. fluticasone 2020-09 Yes [id number] 1{puff} Inhale 1 [facility] furoate-anu 2-30 Puff ity of anteroL 00:00: daily. [place] ([address]) Branch 100-25 mcg/dose DsDv albuterol 2020-09 Yes [id number] 2.5mg Inhale 3 Univers 2.5 mg /3 2-30 mL every 4 ity of mL (0.083 00:00: (four) [place] %) 00 hours as Medical nebulizer needed for Bran ch solution Wheezing or Shortness of Breath. albuterol 2020-09 Yes [id number] 2{puff} Inhale 2 [facility] 90 2-30 Puffs ity of mcg/actuati 00:00: every 6 [place] on inhaler 00 (six) Medical hours as Branch needed for Wheezing or Shortness of Breath. fluticasone 2020-09 Yes [id number] 1{puff} Inhale 1 [facility] furoate-anu 2-30 Puff ity of anteroL 00:00: daily. [place] ([address] [place]) Branch 100-25 mcg/dose DsDv albuterol 2020-09 Yes [id number] 2.5mg Inhale 3 Univers 2.5 mg /3 2-30 mL every 4 ity of mL (0.083 00:00: (four) [place] %) 00 hours as Medical nebulizer needed for Bran ch solution Wheezing or Shortness of Breath. albuterol 2020-09 Yes [id number] 2{puff} Inhale 2 Univers 90 2-30 Puffs ity of mcg/actuati 00:00: every 6 [place] on inhaler 00 (six) Medical hours as Branch needed for Wheezing or Shortness of Breath. fluticasone 2020-09 Yes [id number] 1{puff} Inhale 1 [facility] furoate-anu 2-30 Puff ity of anteroL 00:00: daily. [address]) Branch 100-25 mcg/dose DsDv albuterol 2020-09 Yes [id number] 2.5mg Inhale 3 Univers 2.5 mg /3 2-30 mL every 4 ity of mL (0.083 00:00: (four) [place] %) 00 hours as Medical nebulizer needed for Bran ch solution Wheezing or Shortness of Breath. albuterol 2020-09 Yes [id number] 2{puff} Inhale 2 Univers 90 2-30 Puffs ity of mcg/actuati 00:00: every 6 [place] on inhaler 00 (six) Medical hours as Branch needed for Wheezing or Shortness of Breath. fluticasone 2020-09 Yes [id number] 1{puff} Inhale 1 [facility] furoate-anu 2-30 Puff ity of anteroL 00:00: daily. [place] ([address]) Branch 100-25 mcg/dose DsDv albuterol 2020-09 Yes [id number] 2.5mg Inhale 3 Univers 2.5 mg /3 2-30 mL every 4 ity of mL (0.083 00:00: (four) [place] %) 00 hours as Medical nebulizer needed for Bran ch solution Wheezing or Shortness of Breath. albuterol 2020-09 Yes [id number] 2{puff} Inhale 2 [facility] 90 2-30 Puffs ity of mcg/actuati 00:00: every 6 [place] as on inhaler 00 (six) Medical hours as Branch needed for Wheezing or Shortness of Breath. fluticasone 2020-09 Yes [id number] 1{puff} Inhale 1 [facility] furoate-anu 2-30 Puff ity of anteroL 00:00: daily. [place] ([address]) Branch 100-25 mcg/dose DsDv albuterol 2020-09 Yes [id number] 2.5mg Inhale 3 [facility] 2.5 mg /3 2-30 mL every 4 ity of mL (0.083 00:00: (four) [place] %) 00 hours as Medical nebulizer needed for Bran ch solution Wheezing or Shortness of Breath. albuterol 2020-09 Yes [id number] 2{puff} Inhale 2 [facility] 90 2-30 Puffs ity of mcg/actuati 00:00: every 6 [place] as on inhaler 00 (six) Medical hours as Branch needed for Wheezing or Shortness of Breath. fluticasone 2020-09 Yes [id number] 1{puff} Inhale 1 [facility] furoate-anu 2-30 Puff ity of anteroL 00:00: daily. [place] ([address]) Branch 100-25 mcg/dose DsDv albuterol 2020-09 Yes [id number] 2.5mg Inhale 3 [facility] 2.5 mg /3 2-30 mL every 4 ity of mL (0.083 00:00: (four) [place] %) 00 hours as Medical nebulizer needed for Bran ch solution Wheezing or Shortness of Breath. albuterol 2020-09 Yes [id number] 2{puff} Inhale 2 [facility] 90 2-30 Puffs ity of mcg/actuati 00:00: every 6 [place] as on inhaler 00 (six) Medical hours as Branch needed for Wheezing or Shortness of Breath. fluticasone 2020-09 Yes [id number] 1{puff} Inhale 1 [facility] furoate-anu 2-30 Puff ity of anteroL 00:00: daily. [place] ([address]) Branch 100-25 mcg/dose DsDv albuterol 2020-09 Yes [id number] 2.5mg Inhale 3 [facility] 2.5 mg /3 2-30 mL every 4 ity of mL (0.083 00:00: (four) [place] %) 00 hours as Medical nebulizer needed for Bran ch solution Wheezing or Shortness of Breath. albuterol 2020-09 Yes [id number] 2{puff} Inhale 2 [facility] 90 2-30 Puffs ity of mcg/actuati 00:00: every 6 [place] as on inhaler 00 (six) Medical hours as Branch needed for Wheezing or Shortness of Breath. fluticasone 2020-09 Yes [id number] 1{puff} Inhale 1 [facility] furoate-anu 2-30 Puff ity of anteroL 00:00: daily. [place] ([facility] 00 Medical ELLIP[facility]) Branch 100-25 mcg/dose DsDv albuterol 2020-09 Yes [id number] 2.5mg Inhale 3 [facility] 2.5 mg /3 2-30 mL every 4 ity of mL (0.083 00:00: (four) [place] %) 00 hours as Medical nebulizer needed for Bran ch solution Wheezing or Shortness of Breath. albuterol 2020-09 Yes [id number] 2{puff} Inhale 2 [facility] 90 2-30 Puffs ity of mcg/actuati 00:00: every 6 [place] as on inhaler 00 (six) Medical hours as Branch needed for Wheezing or Shortness of Breath. fluticasone 2020-09 Yes [id number] 1{puff} Inhale 1 [facility] furoate-anu 2-30 Puff ity of anteroL 00:00: daily. [place] ([facility] 00 Medical ELLIP) Branch 100-25 mcg/dose DsDv albuterol 2020-09 Yes [id number] 2.5mg Inhale 3 [facility] 2.5 mg /3 2-30 mL every 4 ity of mL (0.083 00:00: (four) [place] %) 00 hours as Medical nebulizer needed for Bran ch solution Wheezing or Shortness of Breath. albuterol 2020-09 Yes [id number] 2{puff} Inhale 2 [facility] 90 2-30 Puffs ity of mcg/actuati 00:00: every 6 [place] as on inhaler 00 (six) Medical hours as Branch needed for Wheezing or Shortness of Breath. fluticasone 2020-09 Yes [id number] 1{puff} Inhale 1 [facility] furoate-anu 2-30 Puff ity of anteroL 00:00: daily. [place] ([facility] 00 Medical ELLIPTA) Branch 100-25 mcg/dose DsDv albuterol 2020-09 Yes [id number] 2.5mg Inhale 3 [facility] 2.5 mg /3 2-30 mL every 4 ity of mL (0.083 00:00: (four) [place] %) 00 hours as Medical nebulizer needed for Bran ch solution Wheezing or Shortness of Breath. albuterol 2020-09 Yes [id number] 2{puff} Inhale 2 [facility] 90 2-30 Puffs ity of mcg/actuati 00:00: every 6 [place] as on inhaler 00 (six) Medical hours as Branch needed for Wheezing or Shortness of Breath. fluticasone 2020-09 Yes [id number] 1{puff} Inhale 1 [facility] furoate-anu 2-30 Puff ity of anteroL 00:00: daily. [place] ([address]) Branch 100-25 mcg/dose DsDv albuterol 2020-09 Yes [id number] 2.5mg Inhale 3 [facility] 2.5 mg /3 2-30 mL every 4 ity of mL (0.083 00:00: (four) [place] %) 00 hours as Medical nebulizer needed for Bran ch solution Wheezing or Shortness of Breath. albuterol 2020-09 Yes [id number] 2{puff} Inhale 2 [facility] 90 2-30 Puffs ity of mcg/actuati 00:00: every 6 [place] as on inhaler 00 (six) Medical hours as Branch needed for Wheezing or Shortness of Breath. fluticasone 2020-09 Yes [id number] 1{puff} Inhale 1 [facility] furoate-anu 2-30 Puff ity of anteroL 00:00: daily. [place] ([address]) Branch 100-25 mcg/dose DsDv albuterol 2020-09 Yes [id number] 2.5mg Inhale 3 [facility] 2.5 mg /3 2-30 mL every 4 ity of mL (0.083 00:00: (four) [place] %) 00 hours as Medical nebulizer needed for Bran ch solution Wheezing or Shortness of Breath. albuterol 2020-09 Yes [id number] 2{puff} Inhale 2 [facility] 90 2-30 Puffs ity of mcg/actuati 00:00: every 6 [place] as on inhaler 00 (six) Medical hours as Branch needed for Wheezing or Shortness of Breath. fluticasone 2020-09 Yes [id number] 1{puff} Inhale 1 [facility] furoate-anu 2-30 Puff ity of anteroL 00:00: daily. [place] ([address]) Branch 100-25 mcg/dose DsDv albuterol 2020-09 Yes [id number] 2.5mg Inhale 3 [facility] 2.5 mg /3 2-30 mL every 4 ity of mL (0.083 00:00: (four) [place] %) 00 hours as Medical nebulizer needed for Bran ch solution Wheezing or Shortness of Breath. albuterol 2020-09 Yes [id number] 2{puff} Inhale 2 [facility] 90 2-30 Puffs ity of mcg/actuati 00:00: every 6 [place] as on inhaler 00 (six) Medical hours as Branch needed for Wheezing or Shortness of Breath. fluticasone 2020-09 Yes [id number] 1{puff} Inhale 1 [facility] furoate-anu 2-30 Puff ity of anteroL 00:00: daily. [place] ([address]) Branch 100-25 mcg/dose DsDv albuterol 2020-09 Yes [id number] 2.5mg Inhale 3 [facility] 2.5 mg /3 2-30 mL every 4 ity of mL (0.083 00:00: (four) [place] %) 00 hours as Medical nebulizer needed for Bran ch solution Wheezing or Shortness of Breath. albuterol 2020-09 Yes [id number] 2{puff} Inhale 2 [facility] 90 2-30 Puffs ity of mcg/actuati 00:00: every 6 [place] as on inhaler 00 (six) Medical hours as Branch needed for Wheezing or Shortness of Breath. fluticasone 2020-09 Yes [id number] 1{puff} Inhale 1 [facility] furoate-anu 2-30 Puff ity of anteroL 00:00: daily. [place] ([address]) Branch 100-25 mcg/dose DsDv albuterol 2020-09 Yes [id number] 2.5mg Inhale 3 [facility] 2.5 mg /3 2-30 mL every 4 ity of mL (0.083 00:00: (four) [place] %) 00 hours as Medical nebulizer needed for Bran ch solution Wheezing or Shortness of Breath. albuterol 2020-09 Yes [id number] 2{puff} Inhale 2 [facility] 90 2-30 Puffs ity of mcg/actuati 00:00: every 6 [place] as on inhaler 00 (six) Medical hours as Branch needed for Wheezing or Shortness of Breath. fluticasone 2020-09 Yes [id number] 1{puff} Inhale 1 [facility] furoate-anu 2-30 Puff ity of anteroL 00:00: daily. [place] ([address]) Branch 100-25 mcg/dose DsDv albuterol 2020-09 Yes [id number] 2.5mg Inhale 3 [facility] 2.5 mg /3 2-30 mL every 4 ity of mL (0.083 00:00: (four) [place] %) 00 hours as Medical nebulizer needed for Bran ch solution Wheezing or Shortness of Breath. albuterol 2020-09 Yes [id number] 2{puff} Inhale 2 [facility] 90 2-30 Puffs ity of mcg/actuati 00:00: every 6 [place] as on inhaler 00 (six) Medical hours as Branch needed for Wheezing or Shortness of Breath. fluticasone 2020-09 Yes [id number] 1{puff} Inhale 1 [facility] furoate-nau 2-30 Puff ity of anteroL 00:00: daily. [place] ([address]) Branch 100-25 mcg/dose DsDv albuterol 2020-09 Yes [id number] 2.5mg Inhale 3 [facility] 2.5 mg /3 2-30 mL every 4 ity of mL (0.083 00:00: (four) [place] %) 00 hours as Medical nebulizer needed for Bran ch solution Wheezing or Shortness of Breath. albuterol 2020-09 Yes [id number] 2{puff} Inhale 2 [facility] 90 2-30 Puffs ity of mcg/actuati 00:00: every 6 [place] as on inhaler 00 (six) Medical hours as Branch needed for Wheezing or Shortness of Breath. fluticasone 2020-09 Yes [id number] 1{puff} Inhale 1 [facility] furoate-anu 2-30 Puff ity of anteroL 00:00: daily. [place] ([address]) Branch 100-25 mcg/dose DsDv albuterol 2020-09 Yes [id number] 2.5mg Inhale 3 [facility] 2.5 mg /3 2-30 mL every 4 ity of mL (0.083 00:00: (four) [place] %) 00 hours as Medical nebulizer needed for Bran ch solution Wheezing or Shortness of Breath. albuterol 2020-09 Yes [id number] 2{puff} Inhale 2 [facility] 90 2-30 Puffs ity of mcg/actuati 00:00: every 6 [place] as on inhaler 00 (six) Medical hours as Branch needed for Wheezing or Shortness of Breath. fluticasone 2020-09 Yes [id number] 1{puff} Inhale 1 [facility] furoate-anu 2-30 Puff ity of anteroL 00:00: daily. [place] ([address]) Branch 100-25 mcg/dose DsDv albuterol 2020-09 Yes [id number] 2.5mg Inhale 3 [facility] 2.5 mg /3 2-30 mL every 4 ity of mL (0.083 00:00: (four) [place] %) 00 hours as Medical nebulizer needed for Bran ch solution Wheezing or Shortness of Breath. albuterol 2020-09 Yes [id number] 2{puff} Inhale 2 [facility] 90 2-30 Puffs ity of mcg/actuati 00:00: every 6 [place] as on inhaler 00 (six) Medical hours as Branch needed for Wheezing or Shortness of Breath. fluticasone 2020-09 Yes [id number] 1{puff} Inhale 1 [facility] furoate-anu 2-30 Puff ity of anteroL 00:00: daily. [place] ([address]) Branch 100-25 mcg/dose DsDv albuterol 2020-09 Yes [id number] 2.5mg Inhale 3 [facility] 2.5 mg /3 2-30 mL every 4 ity of mL (0.083 00:00: (four) [place] %) 00 hours as Medical nebulizer needed for Bran ch solution Wheezing or Shortness of Breath. albuterol 2020-09 Yes [id number] 2{puff} Inhale 2 [facility] 90 2-30 Puffs ity of mcg/actuati 00:00: every 6 [place] as on inhaler 00 (six) Medical hours as Branch needed for Wheezing or Shortness of Breath. fluticasone 2020-09 Yes [id number] 1{puff} Inhale 1 [facility] furoate-anu 2-30 Puff ity of anteroL 00:00: daily. [place] ([address]) Branch 100-25 mcg/dose DsDv albuterol 2020-09 Yes [id number] 2.5mg Inhale 3 [facility] 2.5 mg /3 2-30 mL every 4 ity of mL (0.083 00:00: (four) [place] %) 00 hours as Medical nebulizer needed for Bran ch solution Wheezing or Shortness of Breath. albuterol 2020-09 Yes [id number] 2{puff} Inhale 2 [facility] 90 2-30 Puffs ity of mcg/actuati 00:00: every 6 [place] as on inhaler 00 (six) Medical hours as Branch needed for Wheezing or Shortness of Breath. fluticasone 2020-09 Yes [id number] 1{puff} Inhale 1 [facility] furoate-anu 2-30 Puff ity of anteroL 00:00: daily. [place] ([address]) Branch 100-25 mcg/dose DsDv albuterol 2020-09 Yes [id number] 2.5mg Inhale 3 [facility] 2.5 mg /3 2-30 mL every 4 ity of mL (0.083 00:00: (four) [place] %) 00 hours as Medical nebulizer needed for Bran ch solution Wheezing or Shortness of Breath. albuterol 2020-09 Yes [id number] 2{puff} Inhale 2 [facility] 90 2-30 Puffs ity of mcg/actuati 00:00: every 6 [place] as on inhaler 00 (six) Medical hours as Branch needed for Wheezing or Shortness of Breath. fluticasone 2020-09 Yes [id number] 1{puff} Inhale 1 [facility] furoate-anu 2-30 Puff ity of anteroL 00:00: daily. [place] ([address]) Branch 100-25 mcg/dose DsDv albuterol 2020-09 Yes [id number] 2.5mg Inhale 3 [facility] 2.5 mg /3 2-30 mL every 4 ity of mL (0.083 00:00: (four) [place] %) 00 hours as Medical nebulizer needed for Bran ch solution Wheezing or Shortness of Breath. albuterol 2020-09 Yes [id number] 2{puff} Inhale 2 [facility] 90 2-30 Puffs ity of mcg/actuati 00:00: every 6 [place] as on inhaler 00 (six) Medical hours as Branch needed for Wheezing or Shortness of Breath. albuterol 2020-09 Yes [id number] 2.5mg Inhale 3 [facility] 2.5 mg /3 2-30 mL every 4 ity of mL (0.083 00:00: (four) [place] %) 00 hours as Medical nebulizer needed for Bran ch solution Wheezing or Shortness of Breath. albuterol 2020-09 Yes [id number] 2{puff} Inhale 2 [facility] 90 2-30 Puffs ity of mcg/actuati 00:00: every 6 [place] as on inhaler 00 (six) Medical hours as Branch needed for Wheezing or Shortness of Breath. albuterol 2020-09 Yes [id number] 2.5mg Inhale 3 [facility] 2.5 mg /3 2-30 mL every 4 ity of mL (0.083 00:00: (four) [place] %) 00 hours as Medical nebulizer needed for Bran ch solution Wheezing or Shortness of Breath. albuterol 2020-09 Yes [id number] 2{puff} Inhale 2 [facility] 90 2-30 Puffs ity of mcg/actuati 00:00: every 6 [place] as on inhaler 00 (six) Medical hours as Branch needed for Wheezing or Shortness of Breath. albuterol 2020-09 Yes [id number] 2.5mg Inhale 3 [facility] 2.5 mg /3 2-30 mL every 4 ity of mL (0.083 00:00: (four) [place] %) 00 hours as Medical nebulizer needed for Bran ch solution Wheezing or Shortness of Breath. albuterol 2020-09 Yes [id number] 2{puff} Inhale 2 [facility] 90 2-30 Puffs ity of mcg/actuati 00:00: every 6 [place] as on inhaler 00 (six) Medical hours as Branch needed for Wheezing or Shortness of Breath. albuterol 2020-09 Yes [id number] 2.5mg Inhale 3 [facility] 2.5 mg /3 2-30 mL every 4 ity of mL (0.083 00:00: (four) [place] %) 00 hours as Medical nebulizer needed for Bran ch solution Wheezing or Shortness of Breath. albuterol 2020-09 Yes [id number] 2{puff} Inhale 2 [facility] 90 2-30 Puffs ity of mcg/actuati 00:00: every 6 [place] as on inhaler 00 (six) Medical hours as Branch needed for Wheezing or Shortness of Breath. albuterol 2020-09 Yes [id number] 2.5mg Inhale 3 [facility] 2.5 mg /3 2-30 mL every 4 ity of mL (0.083 00:00: (four) [place] %) 00 hours as Medical nebulizer needed for Bran ch solution Wheezing or Shortness of Breath. albuterol 2020-09 Yes [id number] 2{puff} Inhale 2 [facility] 90 2-30 Puffs ity of mcg/actuati 00:00: every 6 [place] as on inhaler 00 (six) Medical hours as Branch needed for Wheezing or Shortness of Breath. albuterol 2020-09 Yes [id number] 2.5mg Inhale 3 [facility] 2.5 mg /3 2-30 mL every 4 ity of mL (0.083 00:00: (four) [place] %) 00 hours as Medical nebulizer needed for Bran ch solution Wheezing or Shortness of Breath. albuterol 2020-09 Yes [id number] 2{puff} Inhale 2 [facility] 90 2-30 Puffs ity of mcg/actuati 00:00: every 6 [place] as on inhaler 00 (six) Medical hours as Branch needed for Wheezing or Shortness of Breath. albuterol 2020-09 Yes [id number] 2.5mg Inhale 3 [facility] 2.5 mg /3 2-30 mL every 4 ity of mL (0.083 00:00: (four) [place] %) 00 hours as Medical nebulizer needed for Bran ch solution Wheezing or Shortness of Breath. albuterol 2020-09 Yes [id number] 2{puff} Inhale 2 [facility] 90 2-30 Puffs ity of mcg/actuati 00:00: every 6 [place] as on inhaler 00 (six) Medical hours as Branch needed for Wheezing or Shortness of Breath. albuterol 2020-09 Yes [id number] 2.5mg Inhale 3 [facility] 2.5 mg /3 2-30 mL every 4 ity of mL (0.083 00:00: (four) [place] %) 00 hours as Medical nebulizer needed for Bran ch solution Wheezing or Shortness of Breath. albuterol 2020-09 Yes [id number] 2{puff} Inhale 2 [facility] 90 2-30 Puffs ity of mcg/actuati 00:00: every 6 [place] as on inhaler 00 (six) Medical hours as Branch needed for Wheezing or Shortness of Breath. albuterol 2020-09 Yes [id number] 2.5mg Inhale 3 [facility] 2.5 mg /3 2-30 mL every 4 ity of mL (0.083 00:00: (four) [place] %) 00 hours as Medical nebulizer needed for Bran ch solution Wheezing or Shortness of Breath. albuterol 2020-09 Yes [id number] 2{puff} Inhale 2 [facility] 90 2-30 Puffs ity of mcg/actuati 00:00: every 6 [place] as on inhaler 00 (six) Medical hours as Branch needed for Wheezing or Shortness of Breath. albuterol 2020-09 Yes [id number] 2.5mg Inhale 3 [facility] 2.5 mg /3 2-30 mL every 4 ity of mL (0.083 00:00: (four) [place] %) 00 hours as Medical nebulizer needed for Bran ch solution Wheezing or Shortness of Breath. albuterol 2020-09 Yes [id number] 2{puff} Inhale 2 [facility] 90 2-30 Puffs ity of mcg/actuati 00:00: every 6 [place] as on inhaler 00 (six) Medical hours as Branch needed for Wheezing or Shortness of Breath. albuterol 2020-09 Yes [id number] 2.5mg Inhale 3 [facility] 2.5 mg /3 2-30 mL every 4 ity of mL (0.083 00:00: (four) [place] %) 00 hours as Medical nebulizer needed for Bran ch solution Wheezing or Shortness of Breath. albuterol 2020-09 Yes [id number] 2{puff} Inhale 2 [facility] 90 2-30 Puffs ity of mcg/actuati 00:00: every 6 [place] as on inhaler 00 (six) Medical hours as Branch needed for Wheezing or Shortness of Breath. albuterol 2020-09 Yes [id number] 2.5mg Inhale 3 [facility] 2.5 mg /3 2-30 mL every 4 ity of mL (0.083 00:00: (four) [place] %) 00 hours as Medical nebulizer needed for Bran ch solution Wheezing or Shortness of Breath. albuterol 2020-09 Yes [id number] 2{puff} Inhale 2 [facility] 90 2-30 Puffs ity of mcg/actuati 00:00: every 6 [place] as on inhaler 00 (six) Medical hours as Branch needed for Wheezing or Shortness of Breath. albuterol 2020-09 Yes [id number] 2.5mg Inhale 3 [facility] 2.5 mg /3 2-30 mL every 4 ity of mL (0.083 00:00: (four) [place] %) 00 hours as Medical nebulizer needed for Bran ch solution Wheezing or Shortness of Breath. albuterol 2020-09 Yes [id number] 2{puff} Inhale 2 [facility] 90 2-30 Puffs ity of mcg/actuati 00:00: every 6 [place] as on inhaler 00 (six) Medical hours as Branch needed for Wheezing or Shortness of Breath. albuterol 2020-09 Yes [id number] 2.5mg Inhale 3 [facility] 2.5 mg /3 2-30 mL every 4 ity of mL (0.083 00:00: (four) [place] %) 00 hours as Medical nebulizer needed for Bran ch solution Wheezing or Shortness of Breath. albuterol 2020-09 Yes [id number] 2{puff} Inhale 2 [facility] 90 2-30 Puffs ity of mcg/actuati 00:00: every 6 [place] as on inhaler 00 (six) Medical hours as Branch needed for Wheezing or Shortness of Breath. albuterol 2020-09 Yes [id number] 2.5mg Inhale 3 [facility] 2.5 mg /3 2-30 mL every 4 ity of mL (0.083 00:00: (four) [place] %) 00 hours as Medical nebulizer needed for Bran ch solution Wheezing or Shortness of Breath. albuterol 2020-09 Yes [id number] 2{puff} Inhale 2 [facility] 90 2-30 Puffs ity of mcg/actuati 00:00: every 6 [place] as on inhaler 00 (six) Medical hours as Branch needed for Wheezing or Shortness of Breath. albuterol 2020-09 Yes [id number] 2.5mg Inhale 3 [facility] 2.5 mg /3 2-30 mL every 4 ity of mL (0.083 00:00: (four) [place] %) 00 hours as Medical nebulizer needed for Bran ch solution Wheezing or Shortness of Breath. albuterol 2020-09 Yes [id number] 2{puff} Inhale 2 [facility] 90 2-30 Puffs ity of mcg/actuati 00:00: every 6 [place] as on inhaler 00 (six) Medical hours as Branch needed for Wheezing or Shortness of Breath. albuterol 2020-09 Yes [id number] 2.5mg Inhale 3 [facility] 2.5 mg /3 2-30 mL every 4 ity of mL (0.083 00:00: (four) [place] %) 00 hours as Medical nebulizer needed for Bran ch solution Wheezing or Shortness of Breath. albuterol 2020-09 Yes [id number] 2{puff} Inhale 2 [facility] 90 2-30 Puffs ity of mcg/actuati 00:00: every 6 [place] as on inhaler 00 (six) Medical hours as Branch needed for Wheezing or Shortness of Breath. albuterol 2020-09 Yes [id number] 2.5mg Inhale 3 [facility] 2.5 mg /3 2-30 mL every 4 ity of mL (0.083 00:00: (four) [place] %) 00 hours as Medical nebulizer needed for Bran ch solution Wheezing or Shortness of Breath. albuterol 2020-09 Yes [id number] 2{puff} Inhale 2 [facility] 90 2-30 Puffs ity of mcg/actuati 00:00: every 6 [place] as on inhaler 00 (six) Medical hours as Branch needed for Wheezing or Shortness of Breath. albuterol 2020-09 Yes [id number] 2.5mg Inhale 3 [facility] 2.5 mg /3 2-30 mL every 4 ity of mL (0.083 00:00: (four) [place] %) 00 hours as Medical nebulizer needed for Bran ch solution Wheezing or Shortness of Breath. albuterol 2020-09 Yes [id number] 2{puff} Inhale 2 [facility] 90 2-30 Puffs ity of mcg/actuati 00:00: every 6 [place] as on inhaler 00 (six) Medical hours as Branch needed for Wheezing or Shortness of Breath. albuterol 2020-09 Yes [id number] 2.5mg Inhale 3 [facility] 2.5 mg /3 2-30 mL every 4 ity of mL (0.083 00:00: (four) [place] %) 00 hours as Medical nebulizer needed for Bran ch solution Wheezing or Shortness of Breath. albuterol 2020-09 Yes [id number] 2{puff} Inhale 2 [facility] 90 2-30 Puffs ity of mcg/actuati 00:00: every 6 [place] as on inhaler 00 (six) Medical hours as Branch needed for Wheezing or Shortness of Breath. albuterol 2020-09 Yes [id number] 2.5mg Inhale 3 [facility] 2.5 mg /3 2-30 mL every 4 ity of mL (0.083 00:00: (four) [place] %) 00 hours as Medical nebulizer needed for Bran ch solution Wheezing or Shortness of Breath. albuterol 2020-09 Yes [id number] 2{puff} Inhale 2 [facility] 90 2-30 Puffs ity of mcg/actuati 00:00: every 6 [place] as on inhaler 00 (six) Medical hours as Branch needed for Wheezing or Shortness of Breath. albuterol 2020-09 Yes [id number] 2.5mg Inhale 3 [facility] 2.5 mg /3 2-30 mL every 4 ity of mL (0.083 00:00: (four) [place] %) 00 hours as Medical nebulizer needed for Bran ch solution Wheezing or Shortness of Breath. albuterol 2020-09 Yes [id number] 2{puff} Inhale 2 [facility] 90 2-30 Puffs ity of mcg/actuati 00:00: every 6 [place] as on inhaler 00 (six) Medical hours as Branch needed for Wheezing or Shortness of Breath. albuterol 2020-09 Yes [id number] 2.5mg Inhale 3 [facility] 2.5 mg /3 2-30 mL every 4 ity of mL (0.083 00:00: (four) [place] %) 00 hours as Medical nebulizer needed for Bran ch solution Wheezing or Shortness of Breath. albuterol 2020-09 Yes [id number] 2{puff} Inhale 2 [facility] 90 2-30 Puffs ity of mcg/actuati 00:00: every 6 [place] as on inhaler 00 (six) Medical hours as Branch needed for Wheezing or Shortness of Breath. albuterol 2020-09 Yes [id number] 2.5mg Inhale 3 [facility] 2.5 mg /3 2-30 mL every 4 ity of mL (0.083 00:00: (four) [place] %) 00 hours as Medical nebulizer needed for Bran ch solution Wheezing or Shortness of Breath. albuterol 2020-09 Yes [id number] 2{puff} Inhale 2 [facility] 90 2-30 Puffs ity of mcg/actuati 00:00: every 6 [place] as on inhaler 00 (six) Medical hours as Branch needed for Wheezing or Shortness of Breath. albuterol 2020-09 Yes [id number] 2.5mg Inhale 3 [facility] 2.5 mg /3 2-30 mL every 4 ity of mL (0.083 00:00: (four) [place] %) 00 hours as Medical nebulizer needed for Bran ch solution Wheezing or Shortness of Breath. albuterol 2020-09 Yes [id number] 2{puff} Inhale 2 [facility] 90 2-30 Puffs ity of mcg/actuati 00:00: every 6 [place] as on inhaler 00 (six) Medical hours as Branch needed for Wheezing or Shortness of Breath. albuterol 2020-09 Yes [id number] 2.5mg Inhale 3 [facility] 2.5 mg /3 2-30 mL every 4 ity of mL (0.083 00:00: (four) [place] %) 00 hours as Medical nebulizer needed for Bran ch solution Wheezing or Shortness of Breath. albuterol 2020-09 Yes [id number] 2{puff} Inhale 2 [facility] 90 2-30 Puffs ity of mcg/actuati 00:00: every 6 [place] as on inhaler 00 (six) Medical hours as Branch needed for Wheezing or Shortness of Breath. albuterol 2020-09 Yes [id number] 2.5mg Inhale 3 [facility] 2.5 mg /3 2-30 mL every 4 ity of mL (0.083 00:00: (four) [place] %) 00 hours as Medical nebulizer needed for Bran ch solution Wheezing or Shortness of Breath. albuterol 2020-09 Yes [id number] 2{puff} Inhale 2 [facility] 90 2-30 Puffs ity of mcg/actuati 00:00: every 6 [place] as on inhaler 00 (six) Medical hours as Branch needed for Wheezing or Shortness of Breath. fluticasone 2020-09- No [id number] 1{puff} Inhale 1 [facility] furoate-anu 2-30 02-15 Puff ity of anteroL 00:00: 00:00 daily. [place] ([facility] 00 :00 Medical ELLIPTA) Branch 100-25 mcg/dose DsDv oxybutynin 2020-0 Yes [id number] 10mg Take 1 U nivers 10 mg 24 hr 8-17 tablet by ity of tablet 00:00: mouth 00 daily. Medical Branch oxybutynin 2020-0 Yes [id number] 10mg Take 1 U nivers 10 mg 24 hr 8-17 tablet by ity of tablet 00:00: mouth 00 daily. Medical Branch oxybutynin 2020-0 Yes [id number] 10mg Take 1 U nivers 10 mg 24 hr 8-17 tablet by ity of tablet 00:00: mouth 00 daily. [facility] oxybutynin 2020-0 Yes [id number] 10mg Take 1 U nivers 10 mg 24 hr 8-17 tablet by ity of tablet 00:00: mouth 00 daily. [facility] oxybutynin 2020-0 Yes [id number] 10mg Take 1 U nivers 10 mg 24 hr 8-17 tablet by ity of tablet 00:00: mouth daily. [facility] oxybutynin 2020-0 Yes [id number] 10mg Take 1 U nivers 10 mg 24 hr 8-17 tablet by ity of tablet 00:00: mouth 00 daily. [facility] oxybutynin 2020-0 Yes [id number] 10mg Take 1 U nivers 10 mg 24 hr 8-17 tablet by ity of tablet 00:00: mouth 00 daily. [facility] oxybutynin 2020-0 Yes [id number] 10mg Take 1 U nivers 10 mg 24 hr 8-17 tablet by ity of tablet 00:00: mouth 00 daily. [facility] oxybutynin 1-0 Yes [id number] 10mg Take 1 U nivers 10 mg 24 hr 8-17 tablet by ity of tablet 00:00: mouth 00 daily. [facility] oxybutynin 2021-0 Yes [id number] 10mg Take 1 [facility] 10 mg 24 hr 8-17 tablet by [facility] tablet 00:00: mouth 00 daily. [facility] oxybutynin 1-0 Yes [id number] 10mg Take 1 [facility] 10 mg 24 hr 8-17 tablet by [facility] tablet 00:00: mouth [place] 00 daily. [facility] oxybutynin 2020-0 Yes [id number] 10mg Take 1 [facility] 10 mg 24 hr 8-17 tablet by [facility] tablet 00:00: mouth [place] 00 daily. [facility] oxybutynin 2020-0 Yes [id number] 10mg Take 1 [facility] 10 mg 24 hr 8-17 tablet by [facility] tablet 00:00: mouth [place] 00 daily. [facility] oxybutynin 2020-0 Yes [id number] 10mg Take 1 [facility] 10 mg 24 hr 8-17 tablet by [facility] tablet 00:00: mouth [place] 00 daily. [facility] oxybutynin 2020-0 Yes [id number] 10mg Take 1 [facility] 10 mg 24 hr 8-17 tablet by [facility] tablet 00:00: mouth [place] 00 daily. [facility] oxybutynin 2020-0 Yes [id number] 10mg Take 1 [facility] 10 mg 24 hr 8-17 tablet by [facility] tablet 00:00: mouth [place] 00 daily. [facility] oxybutynin 2020-0 Yes [id number] 10mg Take 1 [facility] 10 mg 24 hr 8-17 tablet by [facility] tablet 00:00: mouth [place] 00 daily. [facility] oxybutynin 2020-0 Yes [id number] 10mg Take 1 [facility] 10 mg 24 hr 8-17 tablet by [facility] tablet 00:00: mouth [place] 00 daily. [facility] oxybutynin 2020-0 Yes [id number] 10mg Take 1 [facility] 10 mg 24 hr 8-17 tablet by [facility] tablet 00:00: mouth [place] 00 daily. [facility] oxybutynin 2020-0 Yes [id number] 10mg Take 1 [facility] 10 mg 24 hr 8-17 tablet by [facility] tablet 00:00: mouth [place] 00 daily. [facility] oxybutynin 2020-0 Yes [id number] 10mg Take 1 [facility] 10 mg 24 hr 8-17 tablet by [facility] tablet 00:00: mouth [place] 00 daily. [facility] oxybutynin 2020-0 Yes [id number] 10mg Take 1 [facility] 10 mg 24 hr 8-17 tablet by [facility] tablet 00:00: mouth [place] 00 daily. [facility] oxybutynin 2020-0 Yes [id number] 10mg Take 1 [facility] 10 mg 24 hr 8-17 tablet by [facility] tablet 00:00: mouth [place] 00 daily. [facility] oxybutynin 2020-0 Yes [id number] 10mg Take 1 [facility] 10 mg 24 hr 8-17 tablet by [facility] tablet 00:00: mouth [place] 00 daily. [facility] oxybutynin 2020-0 Yes [id number] 10mg Take 1 [facility] 10 mg 24 hr 8-17 tablet by [facility] tablet 00:00: mouth [place] 00 daily. [facility] oxybutynin 2020-0 Yes [id number] 10mg Take 1 [facility] 10 mg 24 hr 8-17 tablet by [facility] tablet 00:00: mouth [place] 00 daily. [facility] oxybutynin 2020-0 Yes [id number] 10mg Take 1 [facility] 10 mg 24 hr 8-17 tablet by [facility] tablet 00:00: mouth [place] 00 daily. [facility] oxybutynin 2020-0 Yes [id number] 10mg Take 1 [facility] 10 mg 24 hr 8-17 tablet by [facility] tablet 00:00: mouth [place] 00 daily. [facility] oxybutynin 2020-0 Yes [id number] 10mg Take 1 [facility] 10 mg 24 hr 8-17 tablet by [facility] tablet 00:00: mouth [place] 00 daily. [facility] oxybutynin 2020-0 Yes [id number] 10mg Take 1 [facility] 10 mg 24 hr 8-17 tablet by [facility] tablet 00:00: mouth [place] 00 daily. [facility] oxybutynin 2020-0 Yes [id number] 10mg Take 1 [facility] 10 mg 24 hr 8-17 tablet by [facility] tablet 00:00: mouth [place] 00 daily. [facility] oxybutynin 2020-0 Yes [id number] 10mg Take 1 [facility] 10 mg 24 hr 8-17 tablet by [facility] tablet 00:00: mouth [place] 00 daily. [facility] oxybutynin 2020-0 Yes [id number] 10mg Take 1 [facility] 10 mg 24 hr 8-17 tablet by [facility] tablet 00:00: mouth [place] 00 daily. [facility] oxybutynin 2020-0 Yes [id number] 10mg Take 1 [facility] 10 mg 24 hr 8-17 tablet by [facility] tablet 00:00: mouth [place] 00 daily. [facility] oxybutynin 2021-0 Yes [id number] 10mg Take 1 [facility] 10 mg 24 hr 8-17 tablet by [facility] tablet 00:00: mouth [place] 00 daily. [facility] oxybutynin 2020-0 Yes [id number] 10mg Take 1 [facility] 10 mg 24 hr 8-17 tablet by [facility] tablet 00:00: mouth [place] 00 daily. [facility] oxybutynin 2020-0 Yes [id number] 10mg Take 1 [facility] 10 mg 24 hr 8-17 tablet by [facility] tablet 00:00: mouth [place] 00 daily. [facility] oxybutynin 2020-0 Yes [id number] 10mg Take 1 [facility] 10 mg 24 hr 8-17 tablet by [facility] tablet 00:00: mouth [place] 00 daily. [facility] oxybutynin 2020-0 Yes [id number] 10mg Take 1 [facility] 10 mg 24 hr 8-17 tablet by [facility] tablet 00:00: mouth [place] 00 daily. [facility] oxybutynin 2020-0 Yes [id number] 10mg Take 1 [facility] 10 mg 24 hr 8-17 tablet by [facility] tablet 00:00: mouth [place] 00 daily. [facility] oxybutynin 2020-0 Yes [id number] 10mg Take 1 [facility] 10 mg 24 hr 8-17 tablet by [facility] tablet 00:00: mouth [place] 00 daily. [facility] oxybutynin 2020-0 Yes [id number] 10mg Take 1 [facility] 10 mg 24 hr 8-17 tablet by [facility] tablet 00:00: mouth [place] 00 daily. [facility] oxybutynin 2020-0 Yes [id number] 10mg Take 1 [facility] 10 mg 24 hr 8-17 tablet by [facility] tablet 00:00: mouth [place] 00 daily. [facility] oxybutynin 2020-0 Yes [id number] 10mg Take 1 [facility] 10 mg 24 hr 8-17 tablet by [facility] tablet 00:00: mouth [place] 00 daily. [facility] oxybutynin 2020-0 Yes [id number] 10mg Take 1 [facility] 10 mg 24 hr 8-17 tablet by [facility] tablet 00:00: mouth [place] 00 daily. [facility] oxybutynin 2020-0 Yes [id number] 10mg Take 1 [facility] 10 mg 24 hr 8-17 tablet by [facility] tablet 00:00: mouth [place] 00 daily. [facility] oxybutynin 2020-0 Yes [id number] 10mg Take 1 [facility] 10 mg 24 hr 8-17 tablet by [facility] tablet 00:00: mouth [place] 00 daily. [facility] oxybutynin 2020-0 Yes [id number] 10mg Take 1 [facility] 10 mg 24 hr 8-17 tablet by [facility] tablet 00:00: mouth [place] 00 daily. [facility] oxybutynin 2020-0 Yes [id number] 10mg Take 1 [facility] 10 mg 24 hr 8-17 tablet by [facility] tablet 00:00: mouth [place] 00 daily. [facility] oxybutynin 2020-0 Yes [id number] 10mg Take 1 [facility] 10 mg 24 hr 8-17 tablet by [facility] tablet 00:00: mouth [place] 00 daily. [facility] oxybutynin 2020-0 Yes [id number] 10mg Take 1 [facility] 10 mg 24 hr 8-17 tablet by [facility] tablet 00:00: mouth [place] 00 daily. [facility] oxybutynin 2020-0 Yes [id number] 10mg Take 1 [facility] 10 mg 24 hr 8-17 tablet by [facility] tablet 00:00: mouth [place] 00 daily. [facility] oxybutynin 2020-0 Yes [id number] 10mg Take 1 [facility] 10 mg 24 hr 8-17 tablet by [facility] tablet 00:00: mouth [place] 00 daily. [facility] oxybutynin 2020-0 Yes [id number] 10mg Take 1 [facility] 10 mg 24 hr 8-17 tablet by [facility] tablet 00:00: mouth [place] 00 daily. [facility] oxybutynin 2020-0 Yes [id number] 10mg Take 1 [facility] 10 mg 24 hr 8-17 tablet by [facility] tablet 00:00: mouth [place] 00 daily. [facility] oxybutynin 2020-0 Yes [id number] 10mg Take 1 [facility] 10 mg 24 hr 8-17 tablet by [facility] tablet 00:00: mouth [place] 00 daily. [facility] oxybutynin 2020-0 Yes [id number] 10mg Take 1 [facility] 10 mg 24 hr 8-17 tablet by [facility] tablet 00:00: mouth [place] 00 daily. [facility] oxybutynin 2020-0 Yes [id number] 10mg Take 1 [facility] 10 mg 24 hr 8-17 tablet by [facility] tablet 00:00: mouth [place] 00 daily. [facility] oxybutynin Yes [id number] 10mg Take 1 [facility] 10 mg 24 hr 8-17 tablet by [facility] tablet 00:00: mouth [place] 00 daily. [facility] oxybutynin Yes [id number] 10mg Take 1 [facility] 10 mg 24 hr 8-17 tablet by [facility] tablet 00:00: mouth [place] 00 daily. [facility] oxybutynin Yes [id number] 10mg Take 1 [facility] 10 mg 24 hr 8-17 tablet by [facility] tablet 00:00: mouth [place] 00 daily. [facility] oxybutynin Yes [id number] 10mg Take 1 [facility] 10 mg 24 hr 8-17 tablet by [facility] tablet 00:00: mouth [place] 00 daily. [facility] oxybutynin Yes [id number] 10mg Take 1 [facility] 10 mg 24 hr 8-17 tablet by [facility] tablet 00:00: mouth [place] 00 daily. [facility] meloxicam Yes [id number] 7.5mg Take 1 [facility] (MOBIC) 7.5 8-02 tablet by [facility] mg tablet 00:00: mouth [place] 00 daily. [facility] meloxicam Yes [id number] 7.5mg Take 1 [facility] (MOBIC) 7.5 8-02 tablet by [facility] mg tablet 00:00: mouth [place] 00 daily. [facility] meloxicam 2021- No [id number] 7.5mg Take 1 [facility] (MOBIC) 7.5 8- 09-21 tablet by it y of mg tablet 00:00: 00:00 mouth [place] 00 :00 daily. [facility] HYDROCHLORO 2021- No [id number] TAKE 1 [facility] THIAZIDE 04-16 08-29 CAPSULE BY ity of 12.5 mg [...] every Medical tablet 18 evening. Center acetaminoph 2019 Yes 1{tbl} Take [address] [facility] [address] [facility] en-codeine 1-10 tablet by [facility] (TYLENOL 17:56: mouth Medical #4) [id number] [...] Diclofenac Epolamine Topical patch 1.3% . metoprolol 2018-0 Yes 25mg Q.5D Take [address] [facility] (TOPROL-XL) 1-10 by mouth 2 [facility] 25 MG 24 hr 17:56: (two) Medic al tablet 18 times Center daily. zolpidem 0 Yes 10mg Take [address] [facility] (AMBIEN) 10 1-10 by mouth [facility] mg tablet 17:56: every Medical 18 night as Center needed for Insomnia. escitalopra [id number] Yes 20mg QD Take [address] [facility] oxalate 1-10 by [facility] (LEXAPRO) 17:56: daily. Medica l 10 MG 18 Center tablet cyclobenzap 0 Yes 10mg Take [address] [facility] rine 1-10 by mouth 3 [facility] (FLEXERIL) 17:56: (three) Medi zan 10 MG 18 times Center tablet daily as needed for Muscle spasms. omeprazole [id number] Yes 20mg QD Take [address] [facility] (PRILOSEC) 1-10 by mouth [facility] 20 MG 17:56: daily. Medical capsule 18 Center atorvastati 20190 Yes 10mg QD Take [address] [facility] (LIPITOR) 1-10 by mouth [facility] 10 MG 17:56: every Medical tablet 18 evening. Center acetaminoph 0 Yes 1{tbl} Take [address] [...] l 10 MG 18 Center tablet cyclobenzap [id number] Yes 10mg Take [address] [facility] rine 1-10 by mouth 3 [facility] (FLEXERIL) 17:56: (three) Medi zan 10 MG 18 times Center tablet daily as needed for Muscle spasms. omeprazole 2019-0 Yes 20mg QD Take [address] [facility] (PRILOSEC) 1-10 by mouth [facility] 20 MG 17:56: daily. Medical capsule 18 Center atorvastati 0 Yes 10mg QD Take [address] [facility] (LIPITOR) 1-10 by mouth [facility] 10 MG 17:56: every Medical tablet 18 evening. Center acetaminoph 2019-0 Yes 1{tbl} Take 1 [facility] [...] Diclofenac Epolamine Topical patch 1.3% . metoprolol 2018- Yes 25mg Q.5D Take 25 mg C [...] Immunizations Ordered Filled Immunization Date Status Comments [facility] e Immunization Name Name Influenza Virus [...] Completed Unive [facility] of PFIZER VACCINE 00:00:00 [facility] SARS-COV-2 COVID-19 2021-09-09 Completed [facility] of PFIZER VACCINE 00:00:00 [facility] SARS-COV-2 COVID-19 2021-09-09 Completed [facility] of PFIZER VACCINE 00:00:00 [facility] SARS-COV-2 COVID-19 2021-09-09 Completed [facility] of PFIZER VACCINE 00:00:00 [facility] SARS-COV-2 COVID-19 2021-09-09 Completed [facility] of PFIZER VACCINE 00:00:00 [facility] SARS-COV-2 COVID-19 2021-09-09 Completed [facility] of PFIZER VACCINE 00:00:00 [facility] SARS-COV-2 COVID-19 2021-09-09 Completed [facility] of PFIZER VACCINE 00:00:00 [facility] SARS-COV-2 COVID-19 2021-09-09 Completed [facility] of PFIZER VACCINE 00:00:00 [facility] SARS-COV-2 COVID-19 2021-09-09 Completed [facility] of PFIZER VACCINE 00:00:00 [facility] SARS-COV-2 COVID-19 2021-09-09 Completed [facility] of PFIZER VACCINE 00:00:00 [facility] SARS-COV-2 COVID-19 2021-09-09 Completed [facility] of PFIZER VACCINE 00:00:00 [facility] SARS-COV-2 COVID-19 2021-09-09 Completed [facility] of PFIZER VACCINE 00:00:00 [facility] SARS-COV-2 COVID-19 2021-09-09 Completed [facility] of PFIZER VACCINE 00:00:00 [facility] SARS-COV-2 COVID-19 2021-09-09 Completed [facility]ive [facility] of PFIZER VACCINE 00:00:00 [facility] SARS-COV-2 COVID-19 2021-09-09 Completed [facility] of PFIZER VACCINE 00:00:00 [facility] SARS-COV-2 COVID-19 2021-09-09 Completed [facility] of PFIZER VACCINE 00:00:00 [facility] SARS-COV-2 COVID-19 2021-09-09 Completed [facility] of PFIZER VACCINE 00:00:00 [facility] SARS-COV-2 COVID-19 2021-09-09 Completed [facility] of PFIZER VACCINE 00:00:00 [facility] SARS-COV-2 COVID-19 2021-09-09 Completed [facility] of PFIZER VACCINE 00:00:00 [place] [facility] SARS-COV-2 COVID-19 2021-09-09 Completed [facility] of PFIZER VACCINE 00:00:00 [facility] SARS-COV-2 COVID-19 2021-09-09 Completed [facility] of PFIZER VACCINE 00:00:00 [facility] SARS-COV-2 COVID-19 2021-09-09 Completed [facility] of PFIZER VACCINE 00:00:00 [facility] SARS-COV-2 COVID-19 2021-09-09 Completed [facility] of PFIZER VACCINE 00:00:00 [facility] SARS-COV-2 COVID-19 2021-09-09 Completed [facility] of PFIZER VACCINE 00:00:00 [facility] SARS-COV-2 COVID-19 2021-09-09 Completed [facility] of PFIZER VACCINE 00:00:00 [facility] SARS-COV-2 COVID-19 2021-09-09 Completed [facility] of PFIZER VACCINE 00:00:00 [facility] SARS-COV-2 COVID-19 2021-09-09 Completed [facility] of PFIZER VACCINE 00:00:00 [facility] SARS-COV-2 COVID-19 2021-09-09 Completed [facility] of PFIZER VACCINE 00:00:00 [facility] SARS-COV-2 COVID-19 2021-09-09 Completed [facility] of PFIZER VACCINE 00:00:00 [facility] SARS-COV-2 COVID-19 2021-09-09 Completed [facility] of PFIZER VACCINE 00:00:00 [facility] SARS-COV-2 COVID-19 2021-09-09 Completed [facility] of PFIZER VACCINE 00:00:00 [facility] SARS-COV-2 COVID-19 2021-09-09 Completed [facility] of PFIZER VACCINE 00:00:00 [facility] SARS-COV-2 COVID-19 2021-09-09 Completed [facility] of PFIZER VACCINE 00:00:00 [facility] SARS-COV-2 COVID-19 2021-09-09 Completed [facility] of PFIZER VACCINE 00:00:00 [facility] SARS-COV-2 COVID-19 2021-09-09 Completed [facility] of PFIZER VACCINE 00:00:00 [facility] SARS-COV-2 COVID-19 2021-09-09 Completed [facility] of PFIZER VACCINE 00:00:00 [facility] SARS-COV-2 COVID-19 2021-09-09 Completed [facility] of PFIZER VACCINE 00:00:00 [facility] SARS-COV-2 COVID-19 2021-09-09 Completed [facility] of PFIZER VACCINE 00:00:00 [facility] SARS-COV-2 COVID-19 2021-09-09 Completed [facility] of PFIZER VACCINE 00:00:00 [facility] SARS-COV-2 COVID-19 2021-09-09 Completed [facility] of PFIZER VACCINE 00:00:00 [facility] SARS-COV-2 COVID-19 2021-09-09 Completed [facility] of PFIZER VACCINE 00:00:00 [facility] SARS-COV-2 COVID-19 2021-09-09 Completed [facility] of PFIZER VACCINE 00:00:00 [facility] SARS-COV-2 COVID-19 2021-09-09 Completed [facility] of PFIZER VACCINE 00:00:00 [facility] SARS-COV-2 COVID-19 2021-09-09 Completed [facility] of PFIZER VACCINE 00:00:00 [facility] SARS-COV-2 COVID-19 2021-09-09 Completed [facility] of PFIZER VACCINE 00:00:00 [facility] SARS-COV-2 COVID-19 2021-09-09 Completed [facility] of PFIZER VACCINE 00:00:00 [facility] SARS-COV-2 COVID-19 2021-09-09 Completed [facility] of PFIZER VACCINE 00:00:00 [facility] SARS-COV-2 COVID-19 2021-09-09 Completed [facility] of PFIZER VACCINE 00:00:00 [facility] SARS-COV-2 COVID-19 2021-09-09 Completed [facility] of PFIZER VACCINE 00:00:00 [facility] SARS-COV-2 COVID-19 2021-09-09 Completed [facility] of PFIZER VACCINE 00:00:00 [facility] SARS-COV-2 COVID-19 2021-09-09 Completed [facility] of PFIZER VACCINE 00:00:00 [facility] SARS-COV-2 COVID-19 2021-09-09 Completed [facility] of PFIZER VACCINE 00:00:00 [facility] SARS-COV-2 COVID-19 2021-09-09 Completed [facility] of PFIZER VACCINE 00:00:00 [facility] SARS-COV-2 COVID-19 2021-09-09 Completed [facility] of PFIZER VACCINE 00:00:00 [facility] SARS-COV-2 COVID-19 2021-09-09 Completed [facility] of PFIZER VACCINE 00:00:00 [facility] SARS-COV-2 COVID-19 2021-09-09 Completed [facility] of PFIZER VACCINE 00:00:00 [facility] SARS-COV-2 COVID-19 2021-09-09 Completed [facility] of PFIZER VACCINE 00:00:00 [facility] SARS-COV-2 COVID-19 2021-09-09 Completed [facility] of PFIZER VACCINE 00:00:00 [facility] SARS-COV-2 COVID-19 2021-09-09 Completed [facility] of PFIZER VACCINE 00:00:00 [facility] SARS-COV-2 COVID-19 2021-09-09 Completed [facility] of PFIZER VACCINE 00:00:00 [facility] SARS-COV-2 COVID-19 2021-09-09 Completed [facility] of PFIZER VACCINE 00:00:00 [facility] SARS-COV-2 COVID-19 2021-09-09 Completed [facility] of PFIZER VACCINE 00:00:00 [facility] SARS-COV-2 COVID-19 2021-09-09 Completed [facility] of PFIZER VACCINE 00:00:00 [facility] SARS-COV-2 COVID-19 2020-10-22 Completed [facility] of PFIZER VACCINE 00:00:00 [facility] SARS-COV-2 COVID-19 2020-10-22 Completed [facility] of PFIZER VACCINE 00:00:00 [facility] SARS-COV-2 COVID-19 2020-10-22 Completed [facility] of PFIZER VACCINE 00:00:00 [facility] SARS-COV-2 COVID-19 2020-10-22 Completed [facility] of PFIZER VACCINE 00:00:00 [facility] SARS-COV-2 COVID-19 2020-10-22 Completed [facility] of PFIZER VACCINE 00:00:00 [facility] SARS-COV-2 COVID-19 2020-10-22 Completed [facility] of PFIZER VACCINE 00:00:00 [facility] SARS-COV-2 COVID-19 2020-10-22 Completed [facility] of PFIZER VACCINE 00:00:00 [facility] SARS-COV-2 COVID-19 2020-10-22 Completed [facility] of PFIZER VACCINE 00:00:00 [facility] SARS-COV-2 COVID-19 2020-10-22 Completed [facility] of PFIZER VACCINE 00:00:00 [facility] SARS-COV-2 COVID-19 2020-10-22 Completed [facility] of PFIZER VACCINE 00:00:00 [facility] SARS-COV-2 COVID-19 2020-10-22 Completed [facility] of PFIZER VACCINE 00:00:00 [facility] SARS-COV-2 COVID-19 2020-10-22 Completed [facility]ive rs[facility] of PFIZER VACCINE 00:00:00 [facility] SARS-COV-2 COVID-19 2020-10-22 Completed [facility] of PFIZER VACCINE 00:00:00 [facility] SARS-COV-2 COVID-19 2020-10-22 Completed [facility] of PFIZER VACCINE 00:00:00 [facility] SARS-COV-2 COVID-19 2020-10-22 Completed [facility] of PFIZER VACCINE 00:00:00 [facility] SARS-COV-2 COVID-19 2020-10-22 Completed [facility] of PFIZER VACCINE 00:00:00 [facility] SARS-COV-2 COVID-19 2020-10-22 Completed [facility] of PFIZER VACCINE 00:00:00 [facility] SARS-COV-2 COVID-19 2020-10-22 Completed [facility] of PFIZER VACCINE 00:00:00 [facility] SARS-COV-2 COVID-19 2020-10-22 Completed [facility] of PFIZER VACCINE 00:00:00 [facility] SARS-COV-2 COVID-19 2020-10-22 Completed Unive [facility] of PFIZER VACCINE 00:00:00 [facility] SARS-COV-2 COVID-19 2020-10-22 Completed Unive rs[facility] of PFIZER VACCINE 00:00:00 [facility] SARS-COV-2 COVID-19 2020-10-22 Completed [facility] of PFIZER VACCINE 00:00:00 [facility] SARS-COV-2 COVID-19 2020-10-22 Completed [facility] of PFIZER VACCINE 00:00:00 [facility] SARS-COV-2 COVID-19 2020-10-22 Completed [facility] of PFIZER VACCINE 00:00:00 [facility] SARS-COV-2 COVID-19 2020-10-22 Completed [facility]ive [facility] of PFIZER VACCINE 00:00:00 [facility] SARS-COV-2 COVID-19 2020-10-22 Completed [facility] of PFIZER VACCINE 00:00:00 [facility] SARS-COV-2 COVID-19 2020-10-22 Completed [facility] of PFIZER VACCINE 00:00:00 [facility] SARS-COV-2 COVID-19 2020-10-22 Completed [facility] of PFIZER VACCINE 00:00:00 [facility] SARS-COV-2 COVID-19 2020-10-22 Completed [facility] of PFIZER VACCINE 00:00:00 [facility] SARS-COV-2 COVID-19 2020-10-22 Completed [facility]ive [facility] of PFIZER VACCINE 00:00:00 [facility] SARS-COV-2 COVID-19 2020-10-22 Completed [facility]ive [facility] of PFIZER VACCINE 00:00:00 [facility] SARS-COV-2 COVID-19 2020-10-22 Completed [facility] of PFIZER VACCINE 00:00:00 [facility] SARS-COV-2 COVID-19 2020-10-22 Completed [facility] of PFIZER VACCINE 00:00:00 [facility] SARS-COV-2 COVID-19 2020-10-22 Completed [facility]ive [facility] of PFIZER VACCINE 00:00:00 [facility] SARS-COV-2 COVID-19 2020-10-22 Completed [facility]ive [facility] of PFIZER VACCINE 00:00:00 [facility] SARS-COV-2 COVID-19 2020-10-22 Completed [facility] of PFIZER VACCINE 00:00:00 [facility] SARS-COV-2 COVID-19 2020-10-22 Completed Unive [facility] of PFIZER VACCINE 00:00:00 [facility] SARS-COV-2 COVID-19 2020-10-22 Completed [facility]ive [facility] of PFIZER VACCINE 00:00:00 [facility] SARS-COV-2 COVID-19 2020-10-22 Completed [facility]ive [facility] of PFIZER VACCINE 00:00:00 [facility] SARS-COV-2 COVID-19 2020-10-22 Completed [facility] of PFIZER VACCINE 00:00:00 [facility] SARS-COV-2 COVID-19 2020-10-22 Completed [facility] of PFIZER VACCINE 00:00:00 [facility] SARS-COV-2 COVID-19 2020-10-22 Completed [facility] of PFIZER VACCINE 00:00:00 [facility] SARS-COV-2 COVID-19 2020-10-22 Completed [facility]ive [facility] of PFIZER VACCINE 00:00:00 [facility] SARS-COV-2 COVID-19 2020-10-22 Completed [facility] of PFIZER VACCINE 00:00:00 [facility] SARS-COV-2 COVID-19 2020-10-22 Completed [facility] of PFIZER VACCINE 00:00:00 [facility] SARS-COV-2 COVID-19 2020-10-22 Completed [facility] of PFIZER VACCINE 00:00:00 [facility] SARS-COV-2 COVID-19 2020-10-22 Completed [facility] of PFIZER VACCINE 00:00:00 [facility] SARS-COV-2 COVID-19 2020-10-22 Completed [facility] of PFIZER VACCINE 00:00:00 [facility] SARS-COV-2 COVID-19 2020-10-22 Completed Unive [facility] of PFIZER VACCINE 00:00:00 [facility] SARS-COV-2 COVID-19 2020-10-22 Completed [facility] of PFIZER VACCINE 00:00:00 [facility] SARS-COV-2 COVID-19 2020-10-22 Completed [facility] of PFIZER VACCINE 00:00:00 [facility] SARS-COV-2 COVID-19 2020-10-22 Completed [facility] of PFIZER VACCINE 00:00:00 [facility] SARS-COV-2 COVID-19 2020-10-22 Completed [facility] of PFIZER VACCINE 00:00:00 [facility] SARS-COV-2 COVID-19 2020-10-22 Completed [facility] of PFIZER VACCINE 00:00:00 [facility] SARS-COV-2 COVID-19 2020-10-22 Completed [facility] of PFIZER VACCINE 00:00:00 [facility] SARS-COV-2 COVID-19 2020-10-22 Completed [facility] of PFIZER VACCINE 00:00:00 [facility] SARS-COV-2 COVID-19 2020-10-22 Completed [facility] of PFIZER VACCINE 00:00:00 [facility] SARS-COV-2 COVID-19 2020-10-22 Completed [facility] of PFIZER VACCINE 00:00:00 [facility] SARS-COV-2 COVID-19 2020-10-22 Completed [facility] of PFIZER VACCINE 00:00:00 [facility] SARS-COV-2 COVID-19 2020-10-22 Completed [facility] of PFIZER VACCINE 00:00:00 [facility] SARS-COV-2 COVID-19 2020-10-22 Completed [facility] of PFIZER VACCINE 00:00:00 [facility] SARS-COV-2 COVID-19 2020-10-22 Completed [facility] of PFIZER VACCINE 00:00:00 [facility] SARS-COV-2 COVID-19 2020-10-22 Completed [facility] PFIZER VACCINE 00:00:00 [facility] SARS-COV-2 COVID-19 2020-10-01 Completed [facility] PFIZER VACCINE 00:00:00 [facility] SARS-COV-2 COVID-19 2020-10-01 Completed [facility] PFIZER VACCINE 00:00:00 [facility] SARS-COV-2 COVID-19 2020-10-01 Completed [facility] PFIZER VACCINE 00:00:00 [facility] SARS-COV-2 COVID-19 2020-10-01 Completed [facility] PFIZER VACCINE 00:00:00 [facility] SARS-COV-2 COVID-19 2020-10-01 Completed [facility] PFIZER VACCINE 00:00:00 [facility] SARS-COV-2 COVID-19 2020-10-01 Completed [facility] PFIZER VACCINE 00:00:00 [facility] SARS-COV-2 COVID-19 2020-10-01 Completed [facility] PFIZER VACCINE 00:00:00 [facility] SARS-COV-2 COVID-19 2020-10-01 Completed [facility] PFIZER VACCINE 00:00:00 [facility] SARS-COV-2 COVID-19 2020-10-01 Completed [facility] PFIZER VACCINE 00:00:00 [facility] SARS-COV-2 COVID-19 2020-10-01 Completed [facility] PFIZER VACCINE 00:00:00 [facility] SARS-COV-2 COVID-19 2020-10-01 Completed [facility] PFIZER VACCINE 00:00:00 [facility] SARS-COV-2 COVID-19 2020-10-01 Completed [facility] PFIZER VACCINE 00:00:00 [facility] SARS-COV-2 COVID-19 2020-10-01 Completed [facility] PFIZER VACCINE 00:00:00 [facility] SARS-COV-2 COVID-19 2020-10-01 Completed [facility] PFIZER VACCINE 00:00:00 [facility] SARS-COV-2 COVID-19 2020-10-01 Completed [facility] PFIZER VACCINE 00:00:00 [facility] SARS-COV-2 COVID-19 2020-10-01 Completed [facility] PFIZER VACCINE 00:00:00 [facility] SARS-COV-2 COVID-19 2020-10-01 Completed [facility] PFIZER VACCINE 00:00:00 [facility] SARS-COV-2 COVID-19 2020-10-01 Completed [facility] PFIZER VACCINE 00:00:00 [facility] SARS-COV-2 COVID-19 2020-10-01 Completed [facility] PFIZER VACCINE 00:00:00 [facility] SARS-COV-2 COVID-19 2020-10-01 Completed [facility] PFIZER VACCINE 00:00:00 [facility] SARS-COV-2 COVID-19 2020-10-01 Completed [facility] PFIZER VACCINE 00:00:00 [facility] SARS-COV-2 COVID-19 2020-10-01 Completed [facility] PFIZER VACCINE 00:00:00 [facility] SARS-COV-2 COVID-19 2020-10-01 Completed [facility] PFIZER VACCINE 00:00:00 [facility] SARS-COV-2 COVID-19 2020-10-01 Completed [facility] PFIZER VACCINE 00:00:00 [facility] SARS-COV-2 COVID-19 2020-10-01 Completed [facility] PFIZER VACCINE 00:00:00 [facility] SARS-COV-2 COVID-19 2020-10-01 Completed [facility] PFIZER VACCINE 00:00:00 [facility] SARS-COV-2 COVID-19 2020-10-01 Completed [facility] PFIZER VACCINE 00:00:00 [facility] SARS-COV-2 COVID-19 2020-10-01 Completed [facility] PFIZER VACCINE 00:00:00 [facility] SARS-COV-2 COVID-19 2020-10-01 Completed [facility] PFIZER VACCINE 00:00:00 [facility] SARS-COV-2 COVID-19 2020-10-01 Completed [facility] PFIZER VACCINE 00:00:00 [facility] SARS-COV-2 COVID-19 2020-10-01 Completed [facility] PFIZER VACCINE 00:00:00 [facility] SARS-COV-2 COVID-19 2020-10-01 Completed [facility] PFIZER VACCINE 00:00:00 [facility] SARS-COV-2 COVID-19 2020-10-01 Completed [facility] PFIZER VACCINE 00:00:00 [facility] SARS-COV-2 COVID-19 2020-10-01 Completed [facility] PFIZER VACCINE 00:00:00 [facility] SARS-COV-2 COVID-19 2020-10-01 Completed [facility] PFIZER VACCINE 00:00:00 [facility] SARS-COV-2 COVID-19 2020-10-01 Completed [facility] PFIZER VACCINE 00:00:00 [facility] SARS-COV-2 COVID-19 2020-10-01 Completed [facility] PFIZER VACCINE 00:00:00 [facility] SARS-COV-2 COVID-19 2020-10-01 Completed [facility] PFIZER VACCINE 00:00:00 [facility] SARS-COV-2 COVID-19 2020-10-01 Completed [facility] PFIZER VACCINE 00:00:00 [facility] SARS-COV-2 COVID-19 2020-10-01 Completed [facility] PFIZER VACCINE 00:00:00 [facility] SARS-COV-2 COVID-19 2020-10-01 Completed [facility] PFIZER VACCINE 00:00:00 [facility] SARS-COV-2 COVID-19 2020-10-01 Completed [facility] PFIZER VACCINE 00:00:00 [facility] SARS-COV-2 COVID-19 2020-10-01 Completed [facility] PFIZER VACCINE 00:00:00 [facility] SARS-COV-2 COVID-19 2020-10-01 Completed [facility] PFIZER VACCINE 00:00:00 [facility] SARS-COV-2 COVID-19 2020-10-01 Completed [facility] PFIZER VACCINE 00:00:00 [facility] SARS-COV-2 COVID-19 2020-10-01 Completed [facility] PFIZER VACCINE 00:00:00 [facility] SARS-COV-2 COVID-19 2020-10-01 Completed [facility] PFIZER VACCINE 00:00:00 [facility] SARS-COV-2 COVID-19 2020-10-01 Completed [facility] PFIZER VACCINE 00:00:00 [facility] SARS-COV-2 COVID-19 2020-10-01 Completed [facility] PFIZER VACCINE 00:00:00 [facility] SARS-COV-2 COVID-19 2020-10-01 Completed [facility] PFIZER VACCINE 00:00:00 [facility] SARS-COV-2 COVID-19 2020-10-01 Completed [facility] PFIZER VACCINE 00:00:00 [facility] SARS-COV-2 COVID-19 2020-10-01 Completed [facility] PFIZER VACCINE 00:00:00 [facility] SARS-COV-2 COVID-19 2020-10-01 Completed [facility] PFIZER VACCINE 00:00:00 [facility] SARS-COV-2 COVID-19 2020-10-01 Completed [facility] PFIZER VACCINE 00:00:00 [facility] SARS-COV-2 COVID-19 2020-10-01 Completed [facility] PFIZER VACCINE 00:00:00 [facility] SARS-COV-2 COVID-19 2020-10-01 Completed [facility] PFIZER VACCINE 00:00:00 [facility] SARS-COV-2 COVID-19 2020-10-01 Completed [facility] PFIZER VACCINE 00:00:00 [facility] SARS-COV-2 COVID-19 2020-10-01 Completed [facility] PFIZER VACCINE 00:00:00 [facility] SARS-COV-2 COVID-19 2020-10-01 Completed [facility] PFIZER VACCINE 00:00:00 [facility] SARS-COV-2 COVID-19 2020-10-01 Completed [facility] PFIZER VACCINE 00:00:00 [facility] SARS-COV-2 COVID-19 2020-10-01 Completed [facility] PFIZER VACCINE 00:00:00 [facility] SARS-COV-2 COVID-19 2020-10-01 Completed [facility] PFIZER VACCINE 00:00:00 [facility] SARS-COV-2 COVID-19 2020-10-01 Completed [facility] PFIZER VACCINE 00:00:00 [facility] Zoster Vaccine 2020-08-21 Completed [facility] Recombinant 00:00:00 [facility] Zoster Vaccine 2020-08-21 Completed [facility] Recombinant 00:00:00 [facility] Zoster Vaccine 2020-08-21 Completed [facility] Recombinant 00:00:00 [facility] Zoster Vaccine 2020-08-21 Completed [facility] Recombinant 00:00:00 [facility] Zoster Vaccine 2020-08-21 Completed [facility] Recombinant 00:00:00 [facility] Zoster Vaccine 2020-08-21 Completed [facility] Recombinant 00:00:00 [facility] Zoster Vaccine 2020-08-21 Completed [facility] Recombinant 00:00:00 [facility] Zoster Vaccine 2020-08-21 Completed [facility] Recombinant 00:00:00 [facility] Zoster Vaccine 2020-08-21 Completed [facility] Recombinant 00:00:00 [facility] Zoster Vaccine 2020-08-21 Completed [facility] Recombinant 00:00:00 [facility] Zoster Vaccine 2020-08-21 Completed [facility] Recombinant 00:00:00 [facility] Zoster Vaccine 2020-08-21 Completed [facility] Recombinant 00:00:00 [facility] Zoster Vaccine 2020-08-21 Completed [facility] Recombinant 00:00:00 [facility] Zoster Vaccine 2020-08-21 Completed [facility] Recombinant 00:00:00 [facility] Zoster Vaccine 2020-08-21 Completed [facility] Recombinant 00:00:00 [facility] Zoster Vaccine 2020-08-21 Completed [facility] Recombinant 00:00:00 [facility] Zoster Vaccine 2020-08-21 Completed [facility] Recombinant 00:00:00 [facility] Zoster Vaccine 2020-08-21 Completed [facility] Recombinant 00:00:00 [facility] Zoster Vaccine 2020-08-21 Completed [facility] Recombinant 00:00:00 [facility] Zoster Vaccine 2020-08-21 Completed [facility] Recombinant 00:00:00 [facility] Zoster Vaccine 2020-08-21 Completed [facility] Recombinant 00:00:00 [facility] Zoster Vaccine 2020-08-21 Completed [facility] Recombinant 00:00:00 [facility] Zoster Vaccine 2020-08-21 Completed [facility] Recombinant 00:00:00 [facility] Zoster Vaccine 2020-08-21 Completed [facility] Recombinant 00:00:00 [facility] Zoster Vaccine 2020-08-21 Completed [facility] Recombinant 00:00:00 [facility] Zoster Vaccine 2020-08-21 Completed [facility] Recombinant 00:00:00 [facility] Zoster Vaccine 2020-08-21 Completed [facility] Recombinant 00:00:00 [facility] Zoster Vaccine 2020-08-21 Completed [facility] Recombinant 00:00:00 [facility] Zoster Vaccine 2020-08-21 Completed [facility] Recombinant 00:00:00 [facility] Zoster Vaccine 2020-08-21 Completed [facility] Recombinant 00:00:00 [facility] Zoster Vaccine 2020-08-21 Completed [facility] Recombinant 00:00:00 [facility] Zoster Vaccine 2020-08-21 Completed [facility] Recombinant 00:00:00 [facility] Zoster Vaccine 2020-08-21 Completed [facility] Recombinant 00:00:00 [facility] Zoster Vaccine 2020-08-21 Completed [facility] Recombinant 00:00:00 [facility] Zoster Vaccine 2020-08-21 Completed [facility] Recombinant 00:00:00 [facility] Zoster Vaccine 2020-08-21 Completed [facility] Recombinant 00:00:00 [facility] Zoster Vaccine 2020-08-21 Completed [facility] Recombinant 00:00:00 [facility] Zoster Vaccine 2020-08-21 Completed [facility] Recombinant 00:00:00 [facility] Zoster Vaccine 2020-08-21 Completed [facility] Recombinant 00:00:00 [facility] Zoster Vaccine 2020-08-21 Completed [facility] Recombinant 00:00:00 [facility] Zoster Vaccine 2020-08-21 Completed [facility] Recombinant 00:00:00 [facility] Zoster Vaccine 2020-08-21 Completed [facility] Recombinant 00:00:00 [facility] Zoster Vaccine 2020-08-21 Completed [facility] Recombinant 00:00:00 [facility] Zoster Vaccine 2020-08-21 Completed [facility] Recombinant 00:00:00 [facility] Zoster Vaccine 2020-08-21 Completed [facility] Recombinant 00:00:00 [facility] Zoster Vaccine 2020-08-21 Completed [facility] Recombinant 00:00:00 [facility] Zoster Vaccine 2020-08-21 Completed [facility] Recombinant 00:00:00 [facility] Zoster Vaccine 2020-08-21 Completed [facility] Recombinant 00:00:00 [facility] Zoster Vaccine 2020-08-21 Completed [facility] Recombinant 00:00:00 [facility] Zoster Vaccine 2020-08-21 Completed [facility] Recombinant 00:00:00 [facility] Zoster Vaccine 2020-08-21 Completed [facility] Recombinant 00:00:00 [facility] Zoster Vaccine 2020-06-15 Completed [facility] Recombinant 00:00:00 [facility] Influenza Virus 2020-06-15 Completed [facility] Vaccine Quad IM 3+ 00:00:00 [facility] Zoster Vaccine 2020-06-15 Completed [facility] Recombinant 00:00:00 [facility] Influenza Virus 2020-06-15 Completed [facility] Vaccine Quad IM 3+ 00:00:00 [facility] Zoster Vaccine 2020-06-15 Completed [facility] Recombinant 00:00:00 [facility] Influenza Virus 2020-06-15 Completed [facility] Vaccine Quad IM 3+ 00:00:00 [facility] Zoster Vaccine 2020-06-15 Completed [facility] Recombinant 00:00:00 [facility] Influenza Virus 2020-06-15 Completed [facility] Vaccine Quad IM 3+ 00:00:00 [facility] Zoster Vaccine 2020-06-15 Completed [facility] Recombinant 00:00:00 [facility] Influenza Virus 2020-06-15 Completed [facility] Vaccine Quad IM 3+ 00:00:00 [facility] Zoster Vaccine 2020-06-15 Completed [facility] Recombinant 00:00:00 [facility] Influenza Virus 2020-06-15 Completed [facility] Vaccine Quad IM 3+ 00:00:00 [facility] Zoster Vaccine 2020-06-15 Completed [facility] Recombinant 00:00:00 [facility] Influenza Virus 2020-06-15 Completed [facility] Vaccine Quad IM 3+ 00:00:00 [facility] Zoster Vaccine 2020-06-15 Completed [facility] Recombinant 00:00:00 [facility] Influenza Virus 2020-06-15 Completed [facility] Vaccine Quad IM 3+ 00:00:00 [facility] Zoster Vaccine 2020-06-15 Completed [facility] Recombinant 00:00:00 [facility] Influenza Virus 2020-06-15 Completed [facility] Vaccine Quad IM 3+ 00:00:00 [facility] Zoster Vaccine 2020-06-15 Completed [facility] Recombinant 00:00:00 [facility] Influenza Virus 2020-06-15 Completed [facility] Vaccine Quad IM 3+ 00:00:00 [facility] Zoster Vaccine 2020-06-15 Completed [facility] Recombinant 00:00:00 [facility] Influenza Virus 2020-06-15 Completed [facility] Vaccine Quad IM 3+ 00:00:00 [facility] Zoster Vaccine 2020-06-15 Completed [facility] Recombinant 00:00:00 [facility] Influenza Virus 2020-06-15 Completed [facility] Vaccine Quad IM 3+ 00:00:00 [facility] Zoster Vaccine 2020-06-15 Completed [facility] Recombinant 00:00:00 [facility] Influenza Virus 2020-06-15 Completed [facility] Vaccine Quad IM 3+ 00:00:00 [facility] Zoster Vaccine 2020-06-15 Completed [facility] Recombinant 00:00:00 [facility] Influenza Virus 2020-06-15 Completed [facility] Vaccine Quad IM 3+ 00:00:00 [facility] Zoster Vaccine 2020-06-15 Completed [facility] Recombinant 00:00:00 [facility] Influenza Virus 2020-06-15 Completed [facility] Vaccine Quad IM 3+ 00:00:00 [facility] Zoster Vaccine 2020-06-15 Completed [facility] Recombinant 00:00:00 [facility] Influenza Virus 2020-06-15 Completed [facility] Vaccine Quad IM 3+ 00:00:00 [facility] Zoster Vaccine 2020-06-15 Completed [facility] Recombinant 00:00:00 [facility] Influenza Virus 2020-06-15 Completed [facility] Vaccine Quad IM 3+ 00:00:00 [facility] Zoster Vaccine 2020-06-15 Completed [facility] Recombinant 00:00:00 [facility] Influenza Virus 2020-06-15 Completed [facility] Vaccine Quad IM 3+ 00:00:00 [facility] Zoster Vaccine 2020-06-15 Completed [facility] Recombinant 00:00:00 [facility] Influenza Virus 2020-06-15 Completed [facility] Vaccine Quad IM 3+ 00:00:00 [facility] Zoster Vaccine 2020-06-15 Completed [facility] Recombinant 00:00:00 [facility] Influenza Virus 2020-06-15 Completed [facility] Vaccine Quad IM 3+ 00:00:00 [facility] Zoster Vaccine 2020-06-15 Completed [facility] Recombinant 00:00:00 [facility] Influenza Virus 2020-06-15 Completed [facility] Vaccine Quad IM 3+ 00:00:00 [facility] Zoster Vaccine 2020-06-15 Completed [facility] Recombinant 00:00:00 [facility] Influenza Virus 2020-06-15 Completed [facility] Vaccine Quad IM 3+ 00:00:00 [facility] Zoster Vaccine 2020-06-15 Completed [facility] Recombinant 00:00:00 [facility] Influenza Virus 2020-06-15 Completed [facility] Vaccine Quad IM 3+ 00:00:00 [facility] Zoster Vaccine 2020-06-15 Completed [facility] Recombinant 00:00:00 [facility] Influenza Virus 2020-06-15 Completed [facility] Vaccine Quad IM 3+ 00:00:00 [facility] Zoster Vaccine 2020-06-15 Completed [facility] Recombinant 00:00:00 [facility] Influenza Virus 2020-06-15 Completed [facility] Vaccine Quad IM 3+ 00:00:00 [facility] Zoster Vaccine 2020-06-15 Completed [facility] Recombinant 00:00:00 [facility] Influenza Virus 2020-06-15 Completed [facility] Vaccine Quad IM 3+ 00:00:00 [facility] Zoster Vaccine 2020-06-15 Completed [facility] Recombinant 00:00:00 [facility] Influenza Virus 2020-06-15 Completed [facility] Vaccine Quad IM 3+ 00:00:00 [facility] Zoster Vaccine 2020-06-15 Completed [facility] Recombinant 00:00:00 [facility] Influenza Virus 2020-06-15 Completed [facility] Vaccine Quad IM 3+ 00:00:00 [facility] Zoster Vaccine 2020-06-15 Completed [facility] Recombinant 00:00:00 [facility] Influenza Virus 2020-06-15 Completed [facility] Vaccine Quad IM 3+ 00:00:00 [facility] Zoster Vaccine 2020-06-15 Completed [facility] Recombinant 00:00:00 [facility] Influenza Virus 2020-06-15 Completed [facility] Vaccine Quad IM 3+ 00:00:00 [facility] Zoster Vaccine 2020-06-15 Completed [facility] Recombinant 00:00:00 [facility] Influenza Virus 2020-06-15 Completed [facility] Vaccine Quad IM 3+ 00:00:00 [facility] Zoster Vaccine 2020-06-15 Completed [facility] Recombinant 00:00:00 [facility] Influenza Virus 2020-06-15 Completed [facility] Vaccine Quad IM 3+ 00:00:00 [facility] Zoster Vaccine 2020-06-15 Completed [facility] Recombinant 00:00:00 [facility] Influenza Virus 2020-06-15 Completed [facility] Vaccine Quad IM 3+ 00:00:00 [facility] Zoster Vaccine 2020-06-15 Completed [facility] Recombinant 00:00:00 [facility] Influenza Virus 2020-06-15 Completed [facility] Vaccine Quad IM 3+ 00:00:00 [facility] Zoster Vaccine 2020-06-15 Completed [facility] Recombinant 00:00:00 [facility] Influenza Virus 2020-06-15 Completed [facility] Vaccine Quad IM 3+ 00:00:00 [facility] Zoster Vaccine 2020-06-15 Completed [facility] Recombinant 00:00:00 [facility] Influenza Virus 2020-06-15 Completed [facility] Vaccine Quad IM 3+ 00:00:00 [facility] Zoster Vaccine 2020-06-15 Completed [facility] Recombinant 00:00:00 [facility] Influenza Virus 2020-06-15 Completed [facility] Vaccine Quad IM 3+ 00:00:00 [facility] Zoster Vaccine 2020-06-15 Completed [facility] Recombinant 00:00:00 [facility] Influenza Virus 2020-06-15 Completed [facility] Vaccine Quad IM 3+ 00:00:00 [facility] Zoster Vaccine 2020-06-15 Completed [facility] Recombinant 00:00:00 [facility] Influenza Virus 2020-06-15 Completed [facility] Vaccine Quad IM 3+ 00:00:00 [facility] Zoster Vaccine 2020-06-15 Completed [facility] Recombinant 00:00:00 [facility] Influenza Virus 2020-06-15 Completed [facility] Vaccine Quad IM 3+ 00:00:00 [facility] Zoster Vaccine 2020-06-15 Completed [facility] Recombinant 00:00:00 [facility] Influenza Virus 2020-06-15 Completed [facility] Vaccine Quad IM 3+ 00:00:00 [facility] Zoster Vaccine 2020-06-15 Completed [facility] Recombinant 00:00:00 [facility] Influenza Virus 2020-06-15 Completed [facility] Vaccine Quad IM 3+ 00:00:00 [facility] Zoster Vaccine 2020-06-15 Completed [facility] Recombinant 00:00:00 [facility] Influenza Virus 2020-06-15 Completed [facility] Vaccine Quad IM 3+ 00:00:00 [facility] Zoster Vaccine 2020-06-15 Completed [facility] Recombinant 00:00:00 [facility] Influenza Virus 2020-06-15 Completed [facility] Vaccine Quad IM 3+ 00:00:00 [facility] Zoster Vaccine 2020-06-15 Completed [facility] Recombinant 00:00:00 [facility] Influenza Virus 2020-06-15 Completed [facility] Vaccine Quad IM 3+ 00:00:00 [facility] Zoster Vaccine 2020-06-15 Completed [facility] Recombinant 00:00:00 [facility] Influenza Virus 2020-06-15 Completed [facility] Vaccine Quad IM 3+ 00:00:00 [facility] Zoster Vaccine 2020-06-15 Completed [facility] Recombinant 00:00:00 [facility] Influenza Virus 2020-06-15 Completed [facility] Vaccine Quad IM 3+ 00:00:00 [facility] Zoster Vaccine 2020-06-15 Completed [facility] Recombinant 00:00:00 [facility] Influenza Virus 2020-06-15 Completed [facility] Vaccine Quad IM 3+ 00:00:00 [facility] Zoster Vaccine 2020-06-15 Completed [facility] Recombinant 00:00:00 [facility] Influenza Virus 2020-06-15 Completed [facility] Vaccine Quad IM 3+ 00:00:00 [facility] Zoster Vaccine 2020-06-15 Completed [facility] of Recombinant 00:00:00 [facility] Influenza Virus 2020-06-15 Completed [facility] Vaccine Quad IM 3+ 00:00:00 [facility] Zoster Vaccine 2020-06-15 Completed [facility] of Recombinant 00:00:00 [facility] Influenza Virus 2020-06-15 Completed [facility] Vaccine Quad IM 3+ 00:00:00 [facility] Influenza Virus 2019-07-25 Completed [facility] Vaccine Quad .5 mL 00:00:00 [facility] Influenza Virus 2019-07-25 Completed [facility] Vaccine Quad .5 mL 00:00:00 [facility] Influenza Virus 2019-07-25 Completed [facility] Vaccine Quad .5 mL 00:00:00 [facility]+ [facility] Influenza Virus 2019-07-25 Completed [facility] Vaccine Quad .5 mL 00:00:00 [facility]+ [facility] Influenza Virus 2019-07-25 Completed [facility] Vaccine Quad .5 mL 00:00:00 [facility]+ [facility] Influenza Virus 2019-07-25 Completed [facility] Vaccine Quad .5 mL 00:00:00 [facility]+ [facility] Influenza Virus 2019-07-25 Completed [facility] Vaccine Quad .5 mL 00:00:00 [facility] Influenza Virus 2019-07-25 Completed [facility] of Vaccine Quad .5 mL 00:00:00 [facility]+ [facility] Influenza Virus 2019-07-25 Completed [facility] Vaccine Quad .5 mL 00:00:00 [facility] Influenza Virus 2019-07-25 Completed [facility] Vaccine Quad .5 mL 00:00:00 [facility] Influenza Virus [...] y of Vaccine Quad .5 mL 00:00:00 [facility]+ [facility] Influenza Virus [...] y of Vaccine Quad .5 mL 00:00:00 [facility] Influenza Virus 2018-07-10 Completed [facility] Vaccine Quad .5 mL 00:00:00 [facility] Influenza Virus 2018-07-10 Completed [facility] Vaccine Quad .5 mL 00:00:00 [facility]+ [facility] Influenza Virus 2018-07-10 Completed [facility] of Vaccine Quad .5 mL 00:00:00 [facility]+ [facility] Influenza Virus 2018-07-10 Completed [facility] Vaccine Quad .5 mL 00:00:00 [facility] Influenza Virus 2018-07-10 Completed [facility] Vaccine Quad .5 mL 00:00:00 [facility] Influenza Virus 2017-06-06 Completed [facility] Vaccine Quad IM 3+ 00:00:00 [facility] Pneumococcal 13 2017-06-06 Completed [facility] of Conjugate, PCV13 00:00:00 [facility] (Prevnar 13) Branch Zoster(Zostavax)( 2017-06-06 Completed [facility]ive rsity of caleb) 00:00:00 [facility] Influenza Virus 2017-06-06 Completed [facility] of Vaccine Quad IM 3+ 00:00:00 [facility] Pneumococcal 13 2017-06-06 Completed [facility] of Conjugate, PCV13 00:00:00 [facility] dical (Prevnar 13) Branch Zoster(Zostavax)( 2017-06-06 Completed [facility]ive rsity of caleb) 00:00:00 [facility] Influenza Virus 2017-06-06 Completed [facility] of Vaccine Quad IM 3+ 00:00:00 [facility] Pneumococcal 13 2017-06-06 Completed [facility] of Conjugate, PCV13 00:00:00 [facility] (Prevnar 13) Branch Zoster(Zostavax)( 2017-06-06 Completed [facility]ive rsity of ingmary alice) 00:00:00 [facility] Influenza Virus 2017-06-06 Completed [facility] of Vaccine Quad IM 3+ 00:00:00 [facility] Pneumococcal 13 2017-06-06 Completed [facility] of Conjugate, PCV13 00:00:00 [facility] (Prevnar 13) Branch Zoster(Zostavax)( 2017-06-06 Completed [facility] rsity of ingles) 00:00:00 [facility] Influenza Virus 2017-06-06 Completed [facility] of Vaccine Quad IM 3+ 00:00:00 [facility] Pneumococcal 13 2017-06-06 Completed [facility] of Conjugate, PCV13 00:00:00 [facility] (Prevnar 13) Branch Zoster(Zostavax)( 2017-06-06 Completed [facility] rs[facility] of ingles) 00:00:00 [facility] Influenza Virus 2017-06-06 Completed [facility] of Vaccine Quad IM 3+ 00:00:00 [facility] Pneumococcal 13 2017-06-06 Completed [facility] of Conjugate, PCV13 00:00:00 [facility] dical (Prevnar 13) Branch Zoster(Zostavax)( 2017-06-06 Completed [facility]ive rsity of ingles) 00:00:00 [facility] Influenza Virus 2017-06-06 Completed [facility] of Vaccine Quad IM 3+ 00:00:00 [facility] Pneumococcal 13 2017-06-06 Completed [facility] of Conjugate, PCV13 00:00:00 [facility] dical (Prevnar 13) Branch Zoster(Zostavax)( 2017-06-06 Completed [facility]ive rsity of ingles) 00:00:00 [facility] Influenza Virus 2017-06-06 Completed [facility] of Vaccine Quad IM 3+ 00:00:00 [facility] Pneumococcal 13 2017-06-06 Completed [facility] of Conjugate, PCV13 00:00:00 [facility] dical (Prevnar 13) Branch Zoster(Zostavax)( 2017-06-06 Completed [facility]ive rsity of ingles) 00:00:00 [facility] Influenza Virus 2017-06-06 Completed [facility] of Vaccine Quad IM 3+ 00:00:00 [facility] Pneumococcal 13 2017-06-06 Completed [facility] of Conjugate, PCV13 00:00:00 [facility] dical (Prevnar 13) Branch Zoster(Zostavax)( 2017-06-06 Completed [facility]ive rsity of ingles) 00:00:00 [facility] Influenza Virus 2017-06-06 Completed [facility] of Vaccine Quad IM 3+ 00:00:00 [facility] Pneumococcal 13 2017-06-06 Completed [facility] of Conjugate, PCV13 00:00:00 [facility] (Prevnar 13) Branch Zoster(Zostavax)( 2017-06-06 Completed [facility]ive rsity of ingles) 00:00:00 [facility] Influenza Virus 2017-06-06 Completed [facility] of Vaccine Quad IM 3+ 00:00:00 [facility] Pneumococcal 13 2017-06-06 Completed [facility] of Conjugate, PCV13 00:00:00 [facility] dical (Prevnar 13) Branch Zoster(Zostavax)( 2017-06-06 Completed [facility]ive rsity of ingles) 00:00:00 [facility] Influenza Virus 2017-06-06 Completed [facility] of Vaccine Quad IM 3+ 00:00:00 [facility] Pneumococcal 13 2017-06-06 Completed [facility] of Conjugate, PCV13 00:00:00 [facility] dical (Prevnar 13) Branch Zoster(Zostavax)( 2017-06-06 Completed [facility]ive rsity of ingles) 00:00:00 [facility] Influenza Virus 2017-06-06 Completed [facility] of Vaccine Quad IM 3+ 00:00:00 [facility] Pneumococcal 13 2017-06-06 Completed [facility] of Conjugate, PCV13 00:00:00 [facility] dical (Prevnar 13) Branch Zoster(Zostavax)( 2017-06-06 Completed [facility]ive rsity of ingles) 00:00:00 [facility] Influenza Virus 2017-06-06 Completed [facility] of Vaccine Quad IM 3+ 00:00:00 [facility] Pneumococcal 13 2017-06-06 Completed [facility] of Conjugate, PCV13 00:00:00 [facility] dical (Prevnar 13) Branch Zoster(Zostavax)( 2017-06-06 Completed [facility]ive rsity of ingles) 00:00:00 [facility] Influenza Virus 2017-06-06 Completed [facility] of Vaccine Quad IM 3+ 00:00:00 [facility] Pneumococcal 13 2017-06-06 Completed [facility] of Conjugate, PCV13 00:00:00 [facility] dical (Prevnar 13) Branch Zoster(Zostavax)( 2017-06-06 Completed [facility]ive rsity of ingles) 00:00:00 [facility] Influenza Virus 2017-06-06 Completed [facility] of Vaccine Quad IM 3+ 00:00:00 [facility] Pneumococcal 13 2017-06-06 Completed [facility] of Conjugate, PCV13 00:00:00 [facility] (Prevnar 13) Branch Zoster(Zostavax)( 2017-06-06 Completed [facility]ive rsity of ingles) 00:00:00 [facility] Influenza Virus 2017-06-06 Completed [facility] of Vaccine Quad IM 3+ 00:00:00 [facility] Pneumococcal 13 2017-06-06 Completed [facility] of Conjugate, PCV13 00:00:00 [facility] (Prevnar 13) Branch Zoster(Zostavax)( 2017-06-06 Completed [facility]ive rsity of ingles) 00:00:00 [facility] Influenza Virus 2017-06-06 Completed [facility] of Vaccine Quad IM 3+ 00:00:00 [facility] Pneumococcal 13 2017-06-06 Completed [facility] of Conjugate, PCV13 00:00:00 [facility] dical (Prevnar 13) Branch Zoster(Zostavax)( 2017-06-06 Completed [facility]ive rsity of ingles) 00:00:00 [facility] Influenza Virus 2017-06-06 Completed [facility] of Vaccine Quad IM 3+ 00:00:00 [facility] Pneumococcal 13 2017-06-06 Completed [facility] of Conjugate, PCV13 00:00:00 [facility] dical (Prevnar 13) Branch Zoster(Zostavax)( 2017-06-06 Completed [facility]ive rsity of ingles) 00:00:00 [facility] Influenza Virus 2017-06-06 Completed [facility] of Vaccine Quad IM 3+ 00:00:00 [facility] Pneumococcal 13 2017-06-06 Completed [facility] of Conjugate, PCV13 00:00:00 [facility] (Prevnar 13) Branch Zoster(Zostavax)( 2017-06-06 Completed [facility]ive rsity of ingles) 00:00:00 [facility] Influenza Virus 2017-06-06 Completed [facility] of Vaccine Quad IM 3+ 00:00:00 [facility] Pneumococcal 13 2017-06-06 Completed [facility] of Conjugate, PCV13 00:00:00 [facility] (Prevnar 13) Branch Zoster(Zostavax)( 2017-06-06 Completed [facility]ive rsity of ingles) 00:00:00 [facility] Influenza Virus 2017-06-06 Completed [facility] of Vaccine Quad IM 3+ 00:00:00 [facility] Pneumococcal 13 2017-06-06 Completed [facility] of Conjugate, PCV13 00:00:00 [facility] (Prevnar 13) Branch Zoster(Zostavax)( 2017-06-06 Completed [facility]ive rsity of ingles) 00:00:00 [facility] Influenza Virus 2017-06-06 Completed [facility] of Vaccine Quad IM 3+ 00:00:00 [facility] Pneumococcal 13 2017-06-06 Completed [facility] of Conjugate, PCV13 00:00:00 [facility] (Prevnar 13) Branch Zoster(Zostavax)( 2017-06-06 Completed [facility]ive rsity of ingles) 00:00:00 [facility] Influenza Virus 2017-06-06 Completed [facility] of Vaccine Quad IM 3+ 00:00:00 [facility] Pneumococcal 13 2017-06-06 Completed [facility] of Conjugate, PCV13 00:00:00 [facility] dical (Prevnar 13) Branch Zoster(Zostavax)( 2017-06-06 Completed [facility]ive rsity of ingles) 00:00:00 [facility] Influenza Virus 2017-06-06 Completed [facility] of Vaccine Quad IM 3+ 00:00:00 [facility] Pneumococcal 13 2017-06-06 Completed [facility] y of Conjugate, PCV13 00:00:00 [facility] dical (Prevnar 13) Branch Zoster(Zostavax)( 2017-06-06 Completed [facility]ive rsity of ingles) 00:00:00 [facility] Influenza Virus 2017-06-06 Completed [facility] of Vaccine Quad IM 3+ 00:00:00 [facility] Pneumococcal 13 2017-06-06 Completed [facility] of Conjugate, PCV13 00:00:00 [facility] (Prevnar 13) Branch Zoster(Zostavax)( 2017-06-06 Completed [facility]ive rsity of ingles) 00:00:00 [facility] Influenza Virus 2017-06-06 Completed [facility] of Vaccine Quad IM 3+ 00:00:00 [facility] Pneumococcal 13 2017-06-06 Completed [facility] of Conjugate, PCV13 00:00:00 [facility] (Prevnar 13) Branch Zoster(Zostavax)( 2017-06-06 Completed [facility]ive rsity of ingles) 00:00:00 [facility] Influenza Virus 2017-06-06 Completed [facility] of Vaccine Quad IM 3+ 00:00:00 [facility] Pneumococcal 13 2017-06-06 Completed [facility] y of Conjugate, PCV13 00:00:00 [facility] dical (Prevnar 13) Branch Zoster(Zostavax)( 2017-06-06 Completed [facility]ive rsity of ingles) 00:00:00 [facility] Influenza Virus 2017-06-06 Completed [facility] of Vaccine Quad IM 3+ 00:00:00 [facility] Pneumococcal 13 2017-06-06 Completed [facility] y of Conjugate, PCV13 00:00:00 [facility] dical (Prevnar 13) Branch Zoster(Zostavax)( 2017-06-06 Completed [facility]ive rsity of ingles) 00:00:00 [facility] Influenza Virus 2017-06-06 Completed [facility] of Vaccine Quad IM 3+ 00:00:00 [facility] Pneumococcal 13 2017-06-06 Completed [facility] y of Conjugate, PCV13 00:00:00 [facility] dical (Prevnar 13) Branch Zoster(Zostavax)( 2017-06-06 Completed [facility]ive rsity of ingles) 00:00:00 [facility] Influenza Virus 2017-06-06 Completed [facility] of Vaccine Quad IM 3+ 00:00:00 [facility] Pneumococcal 13 2017-06-06 Completed [facility] of Conjugate, PCV13 00:00:00 [facility] dical (Prevnar 13) Branch Zoster(Zostavax)( 2017-06-06 Completed Unive rsity of ingles) 00:00:00 [facility] Influenza Virus 2017-06-06 Completed [facility] of Vaccine Quad IM 3+ 00:00:00 [facility] Pneumococcal 13 2017-06-06 Completed [facility] of Conjugate, PCV13 00:00:00 [facility] dical (Prevnar 13) Branch Zoster(Zostavax)( 2017-06-06 Completed [facility]ive rsity of ingles) 00:00:00 [facility] Influenza Virus 2017-06-06 Completed [facility] of Vaccine Quad IM 3+ 00:00:00 [facility] Pneumococcal 13 2017-06-06 Completed [facility] of Conjugate, PCV13 00:00:00 [facility] (Prevnar 13) Branch Zoster(Zostavax)( 2017-06-06 Completed [facility]ive rsity of ingles) 00:00:00 [facility] Influenza Virus 2017-06-06 Completed [facility] of Vaccine Quad IM 3+ 00:00:00 [facility] Pneumococcal 13 2017-06-06 Completed [facility] of Conjugate, PCV13 00:00:00 [facility] dical (Prevnar 13) Branch Zoster(Zostavax)( 2017-06-06 Completed [facility]ive rsity of ingles) 00:00:00 [facility] Influenza Virus 2017-06-06 Completed [facility] of Vaccine Quad IM 3+ 00:00:00 [facility] Pneumococcal 13 2017-06-06 Completed [facility] of Conjugate, PCV13 00:00:00 [facility] dical (Prevnar 13) Branch Zoster(Zostavax)( 2017-06-06 Completed Unive rsity of ingles) 00:00:00 [facility] Influenza Virus 2017-06-06 Completed [facility] of Vaccine Quad IM 3+ 00:00:00 [facility] Pneumococcal 13 2017-06-06 Completed [facility] y of Conjugate, PCV13 00:00:00 [facility] dical (Prevnar 13) Branch Zoster(Zostavax)( 2017-06-06 Completed Unive rsity of ingles) 00:00:00 [facility] Influenza Virus 2017-06-06 Completed [facility] of Vaccine Quad IM 3+ 00:00:00 [facility] Pneumococcal 13 2017-06-06 Completed [facility] of Conjugate, PCV13 00:00:00 [facility] dical (Prevnar 13) Branch Zoster(Zostavax)( 2017-06-06 Completed Unive rsity of ingles) 00:00:00 [facility] Influenza Virus 2017-06-06 Completed [facility] of Vaccine Quad IM 3+ 00:00:00 [facility] Pneumococcal 13 2017-06-06 Completed [facility] of Conjugate, PCV13 00:00:00 [facility] (Prevnar 13) Branch Zoster(Zostavax)( 2017-06-06 Completed Unive rsity of ingles) 00:00:00 [facility] Influenza Virus 2017-06-06 Completed [facility] y of Vaccine Quad IM 3+ 00:00:00 [facility] Pneumococcal 13 2017-06-06 Completed [facility] y of Conjugate, PCV13 00:00:00 [facility] (Prevnar 13) Branch Zoster(Zostavax)( 2017-06-06 Completed Unive rsity of ingles) 00:00:00 [facility] Influenza Virus 2017-06-06 Completed [facility] y of Vaccine Quad IM 3+ 00:00:00 [facility] Pneumococcal 13 2017-06-06 Completed [facility] y of Conjugate, PCV13 00:00:00 [facility] (Prevnar 13) Branch Zoster(Zostavax)( 2017-06-06 Completed Unive rsity of ingles) 00:00:00 [facility] Influenza Virus 2017-06-06 Completed [facility] y of Vaccine Quad IM 3+ 00:00:00 [facility] Pneumococcal 13 2017-06-06 Completed [facility] y of Conjugate, PCV13 00:00:00 [facility] (Prevnar 13) Branch Zoster(Zostavax)( 2017-06-06 Completed Unive rsity of ingles) 00:00:00 [facility] Influenza Virus 2017-06-06 Completed [facility] of Vaccine Quad IM 3+ 00:00:00 [facility] Pneumococcal 13 2017-06-06 Completed [facility] y of Conjugate, PCV13 00:00:00 [facility] (Prevnar 13) Branch Zoster(Zostavax)( 2017-06-06 Completed Unive rsity of ingles) 00:00:00 [facility] Influenza Virus 2017-06-06 Completed [facility] y of Vaccine Quad IM 3+ 00:00:00 [facility] Pneumococcal 13 2017-06-06 Completed [facility] y of Conjugate, PCV13 00:00:00 [facility] (Prevnar 13) Branch Zoster(Zostavax)( 2017-06-06 Completed Unive rsity of ingles) 00:00:00 [facility] Influenza Virus 2017-06-06 Completed [facility] y of Vaccine Quad IM 3+ 00:00:00 [facility] Pneumococcal 13 2017-06-06 Completed [facility] y of Conjugate, PCV13 00:00:00 [facility] (Prevnar 13) Branch Zoster(Zostavax)( 2017-06-06 Completed [facility]ive rsity of ingles) 00:00:00 [facility] Influenza Virus 2017-06-06 Completed [facility] y of Vaccine Quad IM 3+ 00:00:00 [facility] Pneumococcal 13 2017-06-06 Completed [facility] y of Conjugate, PCV13 00:00:00 [facility] dical (Prevnar 13) Branch Zoster(Zostavax)( 2017-06-06 Completed Unive rsity of ingles) 00:00:00 [facility] Influenza Virus 2017-06-06 Completed [facility] of Vaccine Quad IM 3+ 00:00:00 [facility] Pneumococcal 13 2017-06-06 Completed [facility] y of Conjugate, PCV13 00:00:00 [facility] dical (Prevnar 13) Branch Zoster(Zostavax)( 2017-06-06 Completed Unive rsity of ingles) 00:00:00 [facility] Influenza Virus 2017-06-06 Completed [facility] of Vaccine Quad IM 3+ 00:00:00 [facility] Pneumococcal 13 2017-06-06 Completed [facility] y of Conjugate, PCV13 00:00:00 [facility] dical (Prevnar 13) Branch Zoster(Zostavax)( 2017-06-06 Completed Unive rsity of ingles) 00:00:00 [facility] Influenza Virus 2017-06-06 Completed [facility] of Vaccine Quad IM 3+ 00:00:00 [facility] Pneumococcal 13 2017-06-06 Completed [facility] y of Conjugate, PCV13 00:00:00 [facility] dical (Prevnar 13) Branch Zoster(Zostavax)( 2017-06-06 Completed Unive rsity of ingles) 00:00:00 [facility] Influenza Virus 2017-06-06 Completed [facility] y of Vaccine Quad IM 3+ 00:00:00 [facility] Pneumococcal 13 2017-06-06 Completed [facility] y of Conjugate, PCV13 00:00:00 [facility] dical (Prevnar 13) Branch Zoster(Zostavax)( 2017-06-06 Completed Unive rsity of ingles) 00:00:00 [facility] Influenza Virus 2017-06-06 Completed [facility] of Vaccine Quad IM 3+ 00:00:00 [facility] Pneumococcal 13 2017-06-06 Completed [facility] of Conjugate, PCV13 00:00:00 [facility] (Prevnar 13) Branch Zoster(Zostavax)( 2017-06-06 Completed [facility]ive rsity of ingles) 00:00:00 [facility] Influenza Virus 2017-06-06 Completed [facility] y of Vaccine Quad IM 3+ 00:00:00 [facility] Pneumococcal 13 2017-06-06 Completed [facility] y of Conjugate, PCV13 00:00:00 [facility] (Prevnar 13) Branch Zoster(Zostavax)( 2017-06-06 Completed Unive rsity of ingles) 00:00:00 [facility] Influenza Virus 2017-06-06 Completed [facility] y of Vaccine Quad IM 3+ 00:00:00 [facility] Pneumococcal 13 2017-06-06 Completed [facility] y of Conjugate, PCV13 00:00:00 [facility] dical (Prevnar 13) Branch Zoster(Zostavax)( 2017-06-06 Completed Unive rsity of ingles) 00:00:00 [facility] Influenza Virus 2017-06-06 Completed [facility] y of Vaccine Quad IM 3+ 00:00:00 [facility] Pneumococcal 13 2017-06-06 Completed [facility] y of Conjugate, PCV13 00:00:00 [facility] dical (Prevnar 13) Branch Zoster(Zostavax)( 2017-06-06 Completed Unive rsity of ingles) 00:00:00 [facility] Influenza Virus 2017-06-06 Completed [facility] y of Vaccine Quad IM 3+ 00:00:00 [facility] Pneumococcal 13 2017-06-06 Completed [facility] y of Conjugate, PCV13 00:00:00 [facility] dical (Prevnar 13) Branch Zoster(Zostavax)( 2017-06-06 Completed Unive rsity of ingles) 00:00:00 [facility] Influenza Virus 2017-06-06 Completed [facility]it y of Vaccine Quad IM 3+ 00:00:00 [facility] Pneumococcal 13 2017-06-06 Completed [facility] y of Conjugate, PCV13 00:00:00 [facility] dical (Prevnar 13) Branch Zoster(Zostavax)( 2017-06-06 Completed Unive rsity of ingles) 00:00:00 [facility] Influenza Virus 2017-06-06 Completed [facility] of Vaccine Quad IM 3+ 00:00:00 [facility] Pneumococcal 13 2017-06-06 Completed [facility] of Conjugate, PCV13 00:00:00 [facility] (Prevnar 13) Branch Zoster(Zostavax)( 2017-06-06 Completed Unive rsity of ingles) 00:00:00 [facility] Influenza Virus 2017-06-06 Completed [facility] of Vaccine Quad IM 3+ 00:00:00 [facility] Pneumococcal 13 2017-06-06 Completed [facility] y of Conjugate, PCV13 00:00:00 [facility] dical (Prevnar 13) Branch Zoster(Zostavax)( 2017-06-06 Completed Unive rsity of ingles) 00:00:00 [facility] Influenza Virus 2017-06-06 Completed [facility] y of Vaccine Quad IM 3+ 00:00:00 [facility] Pneumococcal 13 2017-06-06 Completed [facility] of Conjugate, PCV13 00:00:00 [facility] dical (Prevnar 13) Branch Zoster(Zostavax)( 2017-06-06 Completed Unive rsity of ingles) 00:00:00 [facility] Influenza Virus 2017-06-06 Completed [facility] y of Vaccine Quad IM 3+ 00:00:00 [facility] Pneumococcal 13 2017-06-06 Completed [facility] y of Conjugate, PCV13 00:00:00 [facility] dical (Prevnar 13) Branch Zoster(Zostavax)( 2017-06-06 Completed Unive rsity of ingles) 00:00:00 [facility] Influenza Virus 2017-06-06 Completed [facility] y of Vaccine Quad IM 3+ 00:00:00 [facility] Pneumococcal 13 2017-06-06 Completed [facility] of Conjugate, PCV13 00:00:00 [facility] (Prevnar 13) Branch Zoster(Zostavax)( 2017-06-06 Completed Unive rsity of ingles) 00:00:00 [facility] Influenza Virus 2017-06-06 Completed [facility] y of Vaccine Quad IM 3+ 00:00:00 [facility] Pneumococcal 13 2017-06-06 Completed [facility] of Conjugate, PCV13 00:00:00 [facility] (Prevnar 13) Branch Zoster(Zostavax)( 2017-06-06 Completed Unive rsity of ingles) 00:00:00 [facility] Influenza Virus 2017-06-06 Completed [facility] y of Vaccine Quad IM 3+ 00:00:00 [facility] Pneumococcal 13 2017-06-06 Completed [facility] y of Conjugate, PCV13 00:00:00 [facility] dical (Prevnar 13) Branch Zoster(Zostavax)( 2017-06-06 Completed Unive rsity of ingles) 00:00:00 [facility] Influenza Virus 2017-06-06 Completed [facility] of Vaccine Quad IM 3+ 00:00:00 [facility] Pneumococcal 13 2017-06-06 Completed [facility] of Conjugate, PCV13 00:00:00 [facility] dical (Prevnar 13) Branch Zoster(Zostavax)( 2017-06-06 Completed [facility] ingles) 00:00:00 [place] [facility] Influenza Virus 2016-06-15 Completed Universit y of Vaccine Quad IM 3+ 00:00:00 [facility] Pneumococcal 2016-06-15 Completed University o f Polysaccharide, 00:00:00 [facility] ical PPSV23 (PNEUMOVAX) Branch Influenza Virus 2016-06-15 Completed [facility]it y of Vaccine Quad IM 3+ 00:00:00 [facility] Pneumococcal 2016-06-15 Completed [facility] o f Polysaccharide, 00:00:00 [facility] PPSV23 (PNEUMOVAX) Branch Influenza Virus 2016-06-15 Completed [facility]it y of Vaccine Quad IM 3+ 00:00:00 [facility] Pneumococcal 2016-06-15 Completed University o f Polysaccharide, 00:00:00 [facility] PPSV23 (PNEUMOVAX) Branch Influenza Virus 2016-06-15 Completed [facility]it y of Vaccine Quad IM 3+ 00:00:00 [facility] Pneumococcal 2016-06-15 Completed [facility] o f Polysaccharide, 00:00:00 [facility] PPSV23 (PNEUMOVAX) Branch Influenza Virus 2016-06-15 Completed [facility]it y of Vaccine Quad IM 3+ 00:00:00 [facility] Pneumococcal 2016-06-15 Completed University o f Polysaccharide, 00:00:00 [facility] PPSV23 (PNEUMOVAX) Branch Influenza Virus 2016-06-15 Completed [facility]it y of Vaccine Quad IM 3+ 00:00:00 [facility] Pneumococcal 2016-06-15 Completed [facility] o f Polysaccharide, 00:00:00 [facility] PPSV23 (PNEUMOVAX) Branch Influenza Virus 2016-06-15 Completed [facility]it y of Vaccine Quad IM 3+ 00:00:00 [facility] Pneumococcal 2016-06-15 Completed University o f Polysaccharide, 00:00:00 [facility] PPSV23 (PNEUMOVAX) Branch Influenza Virus 2016-06-15 Completed [facility]it y of Vaccine Quad IM 3+ 00:00:00 [facility] Pneumococcal 2016-06-15 Completed [facility] o f Polysaccharide, 00:00:00 [facility] PPSV23 (PNEUMOVAX) Branch Influenza Virus 2016-06-15 Completed [facility]it y of Vaccine Quad IM 3+ 00:00:00 [facility] Pneumococcal 2016-06-15 Completed [facility] o f Polysaccharide, 00:00:00 [facility] PPSV23 (PNEUMOVAX) Branch Influenza Virus 2016-06-15 Completed [facility]it [facility] of Vaccine Quad IM 3+ 00:00:00 [facility] Pneumococcal 2016-06-15 Completed [facility] o f Polysaccharide, 00:00:00 [facility] PPSV23 (PNEUMOVAX) Branch Influenza Virus 2016-06-15 Completed [facility] of Vaccine Quad IM 3+ 00:00:00 [facility] Pneumococcal 2016-06-15 Completed [facility] o f Polysaccharide, 00:00:00 [facility] PPSV23 (PNEUMOVAX) Branch Influenza Virus 2016-06-15 Completed [facility]it [facility] of Vaccine Quad IM 3+ 00:00:00 [facility] Pneumococcal 2016-06-15 Completed [facility] o f Polysaccharide, 00:00:00 [facility] PPSV23 (PNEUMOVAX) Branch Influenza Virus 2016-06-15 Completed [facility] of Vaccine Quad IM 3+ 00:00:00 [facility] Pneumococcal 2016-06-15 Completed [facility] o f Polysaccharide, 00:00:00 [facility] PPSV23 (PNEUMOVAX) Branch Influenza Virus 2016-06-15 Completed [facility] of Vaccine Quad IM 3+ 00:00:00 [facility] Pneumococcal 2016-06-15 Completed [facility] o f Polysaccharide, 00:00:00 [facility] PPSV23 (PNEUMOVAX) Branch Influenza Virus 2016-06-15 Completed [facility]it y of Vaccine Quad IM 3+ 00:00:00 [facility] Pneumococcal 2016-06-15 Completed [facility] o f Polysaccharide, 00:00:00 [facility] PPSV23 (PNEUMOVAX) Branch Influenza Virus 2016-06-15 Completed [facility] of Vaccine Quad IM 3+ 00:00:00 [facility] Pneumococcal 2016-06-15 Completed [facility] o f Polysaccharide, 00:00:00 [place] [facility] PPSV23 (PNEUMOVAX) Branch Influenza Virus 2016-06-15 Completed [facility]it y of Vaccine Quad IM 3+ 00:00:00 [facility] Pneumococcal 2016-06-15 Completed [facility] o f Polysaccharide, 00:00:00 [facility] PPSV23 (PNEUMOVAX) Branch Influenza Virus 2016-06-15 Completed [facility]it [facility] of Vaccine Quad IM 3+ 00:00:00 [facility] Pneumococcal 2016-06-15 Completed [facility] o f Polysaccharide, 00:00:00 [facility] PPSV23 (PNEUMOVAX) Branch Influenza Virus 2016-06-15 Completed [facility]it [facility] of Vaccine Quad IM 3+ 00:00:00 [facility] Pneumococcal 2016-06-15 Completed [facility] o f Polysaccharide, 00:00:00 [place] [facility] PPSV23 (PNEUMOVAX) Branch Influenza Virus 2016-06-15 Completed [facility] of Vaccine Quad IM 3+ 00:00:00 [facility] Pneumococcal 2016-06-15 Completed [facility] o f Polysaccharide, 00:00:00 [place] [facility] PPSV23 (PNEUMOVAX) Branch Influenza Virus 2016-06-15 Completed [facility] of Vaccine Quad IM 3+ 00:00:00 [facility] Pneumococcal 2016-06-15 Completed [facility] o f Polysaccharide, 00:00:00 [place] [facility] PPSV23 (PNEUMOVAX) Branch Influenza Virus 2016-06-15 Completed [facility]it y of Vaccine Quad IM 3+ 00:00:00 [facility] Pneumococcal 2016-06-15 Completed [facility] o f Polysaccharide, 00:00:00 [place] [facility] PPSV23 (PNEUMOVAX) Branch Influenza Virus 2016-06-15 Completed [facility] of Vaccine Quad IM 3+ 00:00:00 [facility] Pneumococcal 2016-06-15 Completed [facility] o f Polysaccharide, 00:00:00 [place] [facility] PPSV23 (PNEUMOVAX) Branch Influenza Virus 2016-06-15 Completed [facility]it y of Vaccine Quad IM 3+ 00:00:00 [facility] Pneumococcal 2016-06-15 Completed [facility] o f Polysaccharide, 00:00:00 [place] [facility] PPSV23 (PNEUMOVAX) Branch Influenza Virus 2016-06-15 Completed [facility] y of Vaccine Quad IM 3+ 00:00:00 [facility] Pneumococcal 2016-06-15 Completed [facility] o f Polysaccharide, 00:00:00 [place] [facility] PPSV23 (PNEUMOVAX) Branch Influenza Virus 2016-06-15 Completed [facility]it y of Vaccine Quad IM 3+ 00:00:00 [facility] Pneumococcal 2016-06-15 Completed [facility] o f Polysaccharide, 00:00:00 [place] [facility] PPSV23 (PNEUMOVAX) Branch Influenza Virus 2016-06-15 Completed [facility] of Vaccine Quad IM 3+ 00:00:00 [facility] Pneumococcal 2016-06-15 Completed [facility] o f Polysaccharide, 00:00:00 [place] [facility] PPSV23 (PNEUMOVAX) Branch Influenza Virus 2016-06-15 Completed [facility]it y of Vaccine Quad IM 3+ 00:00:00 [facility] Pneumococcal 2016-06-15 Completed [facility] o f Polysaccharide, 00:00:00 [place] [facility] PPSV23 (PNEUMOVAX) Branch Influenza Virus 2016-06-15 Completed [facility] of Vaccine Quad IM 3+ 00:00:00 [facility] Pneumococcal 2016-06-15 Completed [facility] o f Polysaccharide, 00:00:00 [place] [facility] PPSV23 (PNEUMOVAX) Branch Influenza Virus 2016-06-15 Completed [facility]it [facility] of Vaccine Quad IM 3+ 00:00:00 [facility] Pneumococcal 2016-06-15 Completed [facility] o f Polysaccharide, 00:00:00 [place] [facility] PPSV23 (PNEUMOVAX) Branch Influenza Virus 2016-06-15 Completed [facility]it [facility] of Vaccine Quad IM 3+ 00:00:00 [facility] Pneumococcal 2016-06-15 Completed [facility] o f Polysaccharide, 00:00:00 [place] [facility] PPSV23 (PNEUMOVAX) Branch Influenza Virus 2016-06-15 Completed [facility]it [facility] of Vaccine Quad IM 3+ 00:00:00 [facility] Pneumococcal 2016-06-15 Completed [facility] o f Polysaccharide, 00:00:00 [place] [facility] PPSV23 (PNEUMOVAX) Branch Influenza Virus 2016-06-15 Completed [facility]it y of Vaccine Quad IM 3+ 00:00:00 [facility] Pneumococcal 2016-06-15 Completed [facility] o f Polysaccharide, 00:00:00 [place] [facility] PPSV23 (PNEUMOVAX) Branch Influenza Virus 2016-06-15 Completed [facility]it y of Vaccine Quad IM 3+ 00:00:00 [facility] Pneumococcal 2016-06-15 Completed [facility] o f Polysaccharide, 00:00:00 [place] [facility] PPSV23 (PNEUMOVAX) Branch Influenza Virus 2016-06-15 Completed [facility]it y of Vaccine Quad IM 3+ 00:00:00 [facility] Pneumococcal 2016-06-15 Completed [facility] o f Polysaccharide, 00:00:00 [place] [facility] PPSV23 (PNEUMOVAX) Branch Influenza Virus 2016-06-15 Completed [facility]it [facility] of Vaccine Quad IM 3+ 00:00:00 [facility] Pneumococcal 2016-06-15 Completed [facility] o f Polysaccharide, 00:00:00 [place] [facility] PPSV23 (PNEUMOVAX) Branch Influenza Virus 2016-06-15 Completed [facility]it y of Vaccine Quad IM 3+ 00:00:00 [facility] Pneumococcal 2016-06-15 Completed University o f Polysaccharide, 00:00:00 [place] [facility] PPSV23 (PNEUMOVAX) Branch Influenza Virus 2016-06-15 Completed [facility]it y of Vaccine Quad IM 3+ 00:00:00 [facility] Pneumococcal 2016-06-15 Completed [facility] o f Polysaccharide, 00:00:00 [place] [facility] PPSV23 (PNEUMOVAX) Branch Influenza Virus 2016-06-15 Completed [facility]it y of Vaccine Quad IM 3+ 00:00:00 [facility] Pneumococcal 2016-06-15 Completed University o f Polysaccharide, 00:00:00 [place] [facility] PPSV23 (PNEUMOVAX) Branch Influenza Virus 2016-06-15 Completed [facility]it y of Vaccine Quad IM 3+ 00:00:00 [facility] Pneumococcal 2016-06-15 Completed University o f Polysaccharide, 00:00:00 [place] [facility] PPSV23 (PNEUMOVAX) Branch Influenza Virus 2016-06-15 Completed [facility]it y of Vaccine Quad IM 3+ 00:00:00 [facility] Pneumococcal 2016-06-15 Completed University o f Polysaccharide, 00:00:00 [place] [facility] PPSV23 (PNEUMOVAX) Branch Influenza Virus 2016-06-15 Completed [facility]it y of Vaccine Quad IM 3+ 00:00:00 [facility] Pneumococcal 2016-06-15 Completed University o f Polysaccharide, 00:00:00 [place] [facility] PPSV23 (PNEUMOVAX) Branch Influenza Virus 2016-06-15 Completed [facility]it y of Vaccine Quad IM 3+ 00:00:00 [facility] Pneumococcal 2016-06-15 Completed University o f Polysaccharide, 00:00:00 [place] [facility] PPSV23 (PNEUMOVAX) Branch Influenza Virus 2016-06-15 Completed [facility]it y of Vaccine Quad IM 3+ 00:00:00 [facility] Pneumococcal 2016-06-15 Completed University o f Polysaccharide, 00:00:00 [place] [facility] PPSV23 (PNEUMOVAX) Branch Influenza Virus 2016-06-15 Completed [facility]it y of Vaccine Quad IM 3+ 00:00:00 [facility] Pneumococcal 2016-06-15 Completed [facility] o f Polysaccharide, 00:00:00 [place] [facility] PPSV23 (PNEUMOVAX) Branch Influenza Virus 2016-06-15 Completed [facility]it y of Vaccine Quad IM 3+ 00:00:00 [facility] Pneumococcal 2016-06-15 Completed [facility] o f Polysaccharide, 00:00:00 [place] [facility] PPSV23 (PNEUMOVAX) Branch Influenza Virus 2016-06-15 Completed [facility]it y of Vaccine Quad IM 3+ 00:00:00 [facility] Pneumococcal 2016-06-15 Completed [facility] o f Polysaccharide, 00:00:00 [facility] PPSV23 (PNEUMOVAX) Branch Influenza Virus 2016-06-15 Completed [facility]it y of Vaccine Quad IM 3+ 00:00:00 [facility] Pneumococcal 2016-06-15 Completed University o f Polysaccharide, 00:00:00 [place] [facility] PPSV23 (PNEUMOVAX) Branch Influenza Virus 2016-06-15 Completed [facility]it y of Vaccine Quad IM 3+ 00:00:00 [facility] Pneumococcal 2016-06-15 Completed [facility] o f Polysaccharide, 00:00:00 [place] [facility] PPSV23 (PNEUMOVAX) Branch Influenza Virus 2016-06-15 Completed [facility]it y of Vaccine Quad IM 3+ 00:00:00 [facility] Pneumococcal 2016-06-15 Completed [facility] o f Polysaccharide, 00:00:00 [place] [facility] PPSV23 (PNEUMOVAX) Branch Influenza Virus 2016-06-15 Completed [facility]it y of Vaccine Quad IM 3+ 00:00:00 [facility] Pneumococcal 2016-06-15 Completed University o f Polysaccharide, 00:00:00 [place] [facility] PPSV23 (PNEUMOVAX) Branch Influenza Virus 2016-06-15 Completed [facility]it y of Vaccine Quad IM 3+ 00:00:00 [facility] Pneumococcal 2016-06-15 Completed [facility] o f Polysaccharide, 00:00:00 [place] [facility] PPSV23 (PNEUMOVAX) Branch Influenza Virus 2016-06-15 Completed [facility]it y of Vaccine Quad IM 3+ 00:00:00 [facility] Pneumococcal 2016-06-15 Completed University o f Polysaccharide, 00:00:00 [facility] PPSV23 (PNEUMOVAX) Branch Influenza Virus 2016-06-15 Completed [facility]it y of Vaccine Quad IM 3+ 00:00:00 [facility] Pneumococcal 2016-06-15 Completed [facility] o f Polysaccharide, 00:00:00 [place] [facility] PPSV23 (PNEUMOVAX) Branch Influenza Virus 2016-06-15 Completed [facility]it y of Vaccine Quad IM 3+ 00:00:00 [facility] Pneumococcal 2016-06-15 Completed University o f Polysaccharide, 00:00:00 [facility] PPSV23 (PNEUMOVAX) Branch Influenza Virus 2016-06-15 Completed [facility]it y of Vaccine Quad IM 3+ 00:00:00 [facility] Pneumococcal 2016-06-15 Completed [facility] o f Polysaccharide, 00:00:00 [place] [facility] PPSV23 (PNEUMOVAX) Branch Influenza Virus 2016-06-15 Completed [facility]it y of Vaccine Quad IM 3+ 00:00:00 [facility] Pneumococcal 2016-06-15 Completed [facility] o f Polysaccharide, 00:00:00 [place] [facility] PPSV23 (PNEUMOVAX) Branch Influenza Virus 2016-06-15 Completed [facility]it y of Vaccine Quad IM 3+ 00:00:00 [facility] Pneumococcal 2016-06-15 Completed [facility] o f Polysaccharide, 00:00:00 [place] [facility] PPSV23 (PNEUMOVAX) Branch Influenza Virus 2016-06-15 Completed [facility]it y of Vaccine Quad IM 3+ 00:00:00 [facility] Pneumococcal 2016-06-15 Completed [facility] o f Polysaccharide, 00:00:00 [place] [facility] PPSV23 (PNEUMOVAX) Branch Influenza Virus 2016-06-15 Completed [facility]it y of Vaccine Quad IM 3+ 00:00:00 [facility] Pneumococcal 2016-06-15 Completed [facility] o f Polysaccharide, 00:00:00 [place] [facility] PPSV23 (PNEUMOVAX) Branch Influenza Virus 2016-06-15 Completed [facility]it y of Vaccine Quad IM 3+ 00:00:00 [facility] Pneumococcal 2016-06-15 Completed University o f Polysaccharide, 00:00:00 [place] [facility] PPSV23 (PNEUMOVAX) Branch Influenza Virus 2016-06-15 Completed [facility]it y of Vaccine Quad IM 3+ 00:00:00 [facility] Pneumococcal 2016-06-15 Completed University o f Polysaccharide, 00:00:00 [place] [facility] PPSV23 (PNEUMOVAX) Branch Influenza Virus 2016-06-15 Completed [facility]it y of Vaccine Quad IM 3+ 00:00:00 [facility] Pneumococcal 2016-06-15 Completed [facility] o f Polysaccharide, 00:00:00 [facility] PPSV23 (PNEUMOVAX) Branch Vital Signs Vital Name Observation Time Observation Value Comments Source Systolic blood 2023-05-03 14:56:00 136 mm[Hg] Univer sity of pressure [facility] Diastolic blood 2023-05-03 14:56:00 84 mm[Hg] Unive rsity of [facility] Heart rate 2023-05-03 14:56:00 61 /min [facility] Respiratory rate 2023-05-03 14:56:00 18 /[facility] Body height 2023-05-03 14:56:00 152.4 cm [facility] Body weight 2023-05-03 14:56:00 53.479 kg [facility] BMI 2023-05-03 14:56:00 23.03 kg/m2 [facility] Oxygen saturation in 2023-05-03 14:56:00 97 /min [facility] Arterial blood by [facility] Pulse oximetry Branch Systolic blood 2023-03-16 14:19:00 124 mm[Hg] Univer sity of pressure [facility] Diastolic blood 2023-03-16 14:19:00 74 mm[Hg] Unive rsity of [facility] Heart rate 2023-03-16 14:19:00 55 /min [facility] Body height 2023-03-16 14:19:00 152.4 cm [facility] Body weight 2023-03-16 14:19:00 55.248 kg [facility] BMI 2023-03-16 14:19:00 23.79 kg/m2 [facility] Oxygen saturation in 2023-03-16 14:19:00 96 /min University of Arterial blood by [facility] Pulse oximetry Branch Systolic blood 2023-02-24 06:00:00 111 mm[Hg] Univer sity of pressure [facility] Diastolic blood 2023-02-24 06:00:00 83 mm[Hg] Unive rsity of pressure [facility] Heart rate 2023-02-24 06:00:00 97 /min [facility] Oxygen saturation in 2023-02-24 06:00:00 94 /min University of Arterial blood by [facility] Pulse oximetry Branch Body temperature 2023-02-24 03:00:00 38.33 Eliana Univ ers[facility] Respiratory rate 2023-02-24 03:00:00 19 /min Univ [facility] Body height 2023-02-23 22:21:00 162.6 cm [facility] Body weight 2023-02-23 22:21:00 55.792 kg [facility] BMI 2023-02-23 22:21:00 21.11 kg/m2 [facility] Systolic blood 2023-02-23 21:04:00 120 mm[Hg] Univer sity of pressure [facility] Diastolic blood 2023-02-23 21:04:00 74 mm[Hg] Unive rsity of pressure [facility] Heart rate 2023-02-23 21:04:00 133 /min [facility] Body temperature 2023-02-23 21:04:00 37.5 [place] [facility] Body height 2023-02-23 21:04:00 152.4 cm [facility] Systolic blood 2023-02-13 14:50:00 132 mm[Hg] Univer sity of pressure [facility] Diastolic blood 2023-02-13 14:50:00 88 mm[Hg] Unive rsity of pressure [facility] Heart rate 2023-02-13 14:49:00 67 /min [facility] Respiratory rate 2023-02-13 14:49:00 18 /min Univ ers[facility] Body height 2023-02-13 14:49:00 157.5 cm [facility] Body weight 2023-02-13 14:49:00 55.838 kg [facility] BMI 2023-02-13 14:49:00 22.52 kg/m2 [facility] Oxygen saturation in 2023-02-13 14:49:00 97 /min University of Arterial blood by [place] [employer] [facility] Pulse oximetry Branch Systolic blood 2022-12-09 18:45:00 149 mm[Hg] Univer sity of pressure [facility] Diastolic blood 2022-12-09 18:45:00 83 mm[Hg] Unive rsity of pressure [facility] Heart rate 2022-12-09 18:45:00 65 /min [facility] Body temperature 2022-12-09 18:45:00 36.33 [place] [facility] Respiratory rate 2022-12-09 18:45:00 18 /min [facility] Body weight 2022-12-09 18:45:00 54.658 kg [facility] BMI 2022-12-09 18:45:00 23.53 kg/m2 [facility] Oxygen saturation in 2022-12-09 18:45:00 96 /min University of Arterial blood by [place] [employer] [facility] Pulse oximetry [facility] Systolic blood 2022-11-24 16:59:00 133 mm[Hg] Univer sity of pressure [facility] Diastolic blood 2022-11-24 16:59:00 85 mm[Hg] Unive rsity of pressure [facility] Heart rate 2022-11-24 16:59:00 85 /min [facility] Body weight 2022-11-24 16:59:00 56.79 kg [facility] BMI 2022-11-24 16:59:00 24.45 kg/m2 [facility] Oxygen saturation in 2022-11-24 16:59:00 91 /min [facility] blood by [facility] Systolic blood 2022-10-24 16:25:00 120 mm[Hg] Univer [facility]ity of pressure [facility] Diastolic blood 2022-10-24 16:25:00 75 mm[Hg] Unive rsity of pressure [facility] Heart rate 2022-10-24 16:25:00 66 /min [facility] Body temperature 2022-10-24 16:25:00 36 [place] [facility] Respiratory rate 2022-10-24 16:25:00 18 /min [facility] Body weight 2022-10-24 16:25:00 58.287 kg [facility] BMI 2022-10-24 16:25:00 25.10 kg/m2 [facility] Oxygen saturation in 2022-10-24 16:25:00 94 /min University of Arterial blood by [facility] Pulse oximetry Branch Systolic blood 2022-10-10 17:11:00 110 mm[Hg] Univer sity of pressure [facility] Diastolic blood 2022-10-10 17:11:00 86 mm[Hg] Unive rsity of pressure [facility] Heart rate 2022-10-10 17:11:00 73 /min [facility] Body temperature 2022-10-10 17:11:00 36.11 [place] [facility] Respiratory rate 2022-10-10 17:11:00 18 /min [facility] Body weight 2022-10-10 17:11:00 58.695 kg [facility] BMI 2022-10-10 17:11:00 25.27 kg/m2 [facility] Oxygen saturation in 2022-10-10 17:11:00 94 /min [facility] Arterial blood by [place] [facility] Systolic blood 2022-10-07 17:41:00 118 mm[Hg] Univer sity of pressure [facility] Diastolic blood 2022-10-07 17:41:00 65 mm[Hg] Unive rsity of pressure [facility] Heart rate 2022-10-07 17:41:00 86 /min [facility] Body weight 2022-10-07 17:41:00 60.283 kg [facility] BMI 2022-10-07 17:41:00 25.96 kg/m2 [facility] Oxygen saturation in 2022-10-07 17:41:00 91 /min [facility]ial blood by [place] [facility] P[facility]xim[facility] Systolic blood 2022-10-06 20:35:00 101 mm[Hg] Univer sity of pressure [facility] Diastolic blood 2022-10-06 20:35:00 66 mm[Hg] Unive rsity of pressure [facility] Heart rate 2022-10-06 20:35:00 90 /min [facility] Oxygen saturation in 2022-10-06 20:35:00 95 /min University of Arterial blood by [facility] zan Pulse oximetry Branch Respiratory rate 2022-10-06 20:15:00 14 /min [facility] Body temperature 2022-10-06 17:22:00 36.89 [place] [facility] Body height 2022-10-06 11:29:00 152.4 cm [facility] Body weight 2022-10-06 11:29:00 57.607 kg [facility] BMI 2022-10-06 11:29:00 24.80 kg/m2 [facility] Systolic blood 2022-10-06 18:00:00 114 mm[Hg] Univer sity of pressure [facility] Diastolic blood 2022-10-06 18:00:00 68 mm[Hg] Unive rsity of pressure [facility] Heart rate 2022-10-06 18:00:00 92 /min [facility] Respiratory rate 2022-10-06 18:00:00 13 /min [facility] Oxygen saturation in 2022-10-06 18:00:00 92 /min [facility] Arterial blood by [place] [facility] P[facility] Body temperature 2022-10-06 17:22:00 36.89 [place] [facility] Body height 2022-10-06 11:29:00 152.4 cm [facility] Body weight 2022-10-06 11:29:00 57.607 kg [facility] BMI 2022-10-06 11:29:00 24.80 kg/m2 [facility] Systolic blood 2022-09-20 17:17:00 130 mm[Hg] Univer sity of pressure [facility] Diastolic blood 2022-09-20 17:17:00 83 mm[Hg] Unive rsity of pressure [facility] Heart rate 2022-09-20 17:17:00 59 /min [facility] Body temperature 2022-09-20 17:17:00 36.39 [place] [facility] Respiratory rate 2022-09-20 17:17:00 16 /min [facility] Body height 2022-09-20 17:17:00 152.4 cm [facility] Body weight 2022-09-20 17:17:00 57.335 kg [facility] BMI 2022-09-20 17:17:00 24.69 kg/m2 [facility] Oxygen saturation in 2022-09-20 17:17:00 94 /min University of Arterial blood by [facility] zan Pulse oximetry Branch Systolic blood 2022-08-24 18:04:00 121 mm[Hg] Univer sity of pressure [facility] Diastolic blood 2022-08-24 18:04:00 73 mm[Hg] Unive rsity of pressure [facility] Heart rate 2022-08-24 18:04:00 73 /min [facility] Body height 2022-08-24 18:04:00 152.4 cm [facility] Body weight 2022-08-24 18:04:00 58.469 kg [facility] BMI 2022-08-24 18:04:00 25.17 kg/m2 [facility] Oxygen saturation in 2022-08-24 18:04:00 98 /min [facility] blood by [place] [facility] P[facility] Systolic blood 2022-07-19 19:24:00 123 mm[Hg] Univer sity of pressure [facility] Diastolic blood 2022-07-19 19:24:00 66 mm[Hg] Unive rsity of pressure [facility] Heart rate 2022-07-19 19:24:00 61 /min [facility] [facility] Body temperature 2022-07-19 19:24:00 36.5 Eliana Univ [facility] Body height 2022-07-19 19:24:00 152.4 cm [facility] Body weight 2022-07-19 19:24:00 57.267 kg [facility] BMI 2022-07-19 19:24:00 24.66 kg/m2 [facility] Systolic blood 2022-06-20 18:36:00 125 mm[Hg] Univer sity of pressure [facility] Branch Diastolic blood 2022-06-20 18:36:00 74 mm[Hg] Unive rsity of pressure [facility] Heart rate 2022-06-20 18:36:00 47 /min [facility] Body weight 2022-06-20 18:36:00 55.792 kg [facility] BMI 2022-06-20 18:36:00 24.02 kg/m2 [facility] Oxygen saturation in 2022-06-20 18:36:00 97 /min [facility] Arterial blood by [facility] Pulse oximetry Branch Systolic blood 2022-05-09 15:19:00 128 mm[Hg] Univer sity of pressure [facility] Diastolic blood 2022-05-09 15:19:00 71 mm[Hg] Unive rsity of pressure [facility] Heart rate 2022-05-09 15:19:00 52 /min [facility] [place] [facility] [place] Body weight 2022-05-09 15:19:00 58.469 kg [facility] BMI 2022-05-09 15:19:00 25.17 kg/m2 [facility] Procedures Procedure Date / Time Performing Clinician Source Performed DEXA AXIAL (HIP AND 2023-05-05 15:17:51 Herman Watkins [facility] SPINE) Medical Branch ASSIGNMENT OF BENEFITS 2023-05-05 14:27:04 Doctor Unassigned, Un [facility] [place] [facility] XR HIPS 2 VW LEFT 2023-05-03 15:45:[address] [facility] ASSIGNMENT OF BENEFITS 2023-03-16 14:13:24 Doctor Unassigned, [facility] [place] [facility] CT ABDOMEN PELVIS W 2023-02-24 04:46:26 Eleni William [facility] CONTRAST [facility] XR CHEST 1 VW 2023-02-24 04:18:27 Eleni William [facility] URINALYSIS 2023-02-23 23:42:00 Eleni William [facility] RAPID INFLUENZA A/B 2023-02-23 23:05:00 Eleni William [facility] LIPASE 2023-02-23 22:34:00 Eleni William [facility] TROPONIN I 2023-02-23 22:34:00 Eleni William [facility] COMP. METABOLIC PANEL 2023-02-23 22:34:00 Eleni [facility] ([id number]) Medical Branch CBC WITH DIFF 2023-02-23 22:34:00 Eleni William [facility] COVID-19 (ID NOW RAPID 2023-02-23 22:34:00 Eleni William [facility] TESTING) Medical Branch REDUCTION MAMMOPLASTY 2022-10-06 13:04:00 Angie [facility] ASSIGNMENT OF BENEFITS 2022-10-06 10:59:55 Doctor Unassigned, [facility] [place] [facility] PATIENT FINANCIAL 2022-09-21 06:01:00 Doctor Raúl, [facility] RESPONSIBILITY - ALL [place] [facility] FORMS EXTERNAL PROVIDER RECORDS 2022-06-15 05:01:00 Doctor Raúl, [facility] [place] [facility] Encounters Start End Encounter Admission Attending Care Care Encounter Source Date/Time Date/Time Type Type Clinicians Facility Department ID 2023-05-20 Preadmit nullFlavo [facility] [id number] Oh moria 13:13:21 alex Peng 2021-04-26 Preadmit nullFlavo [facility] [id number] Me moria 14:49:52 alex Peng 2023-05-05 2023-05-05 Outpatient ZURI SANTANAMB [facility] [id number] Univers 09:26:51 23:59:00 HERMAN ity [facility] 2023-05-05 2023-05-05 [facility] 1.2.840.114 [id number] Univers 09:26:51 23:59:00 Encounter Herman SINGH 350.1.13.10 ity of [place] 4.2.7.2.[place] [id number] [facility] [address] [place] 2023-05-03 2023-05-03 [facility] 1.2.840.114 [id number] Univers 10:28:29 23:59:00 Encounter Herman HEALTH 350.1.13.10 ity of [place] 4.2.7.2.686 Baljeet as STEVIE?BLEA [phone] [facility] [address] [place] MEDICAL OFFICE [facility] 2023-05-03 2023-05-03 [facility] [id number] Univers 10:00:00 10:25:46 HERMAN sheldon [facility] 2023-05-03 2023-05-03 Office [facility] 1.2.840.114 [id number] Univers 10:00:00 10:25:46 Visit Herman HEALTH 350.1.13.10 it y of [place] 4.2.7.2.686 Baljeet as STEVIE?BLEA [id number] [address] MEDICAL OFFICE [facility] 2023-04-10 2023-04-10 RefHERMINIA Jones 1.2.840.114 [id number] Univers 00:00:00 00:00:00 Herman HOUGHY 350.1.13.10 it y of [facility] 4.2.7.2.686 Baljeet as [id number] [address] 2023-04-07 2023-04-07 Reftammie WatkinsNOR[facility]N [facility] 1.2.840.114 [id number] Univers 00:00:00 00:00:00 Herman HEALTH 350.1.13.10 it y of [place] 4.2.7.2.686 Baljeet as STEVIE?BLEA [phone] Me dical KNEY 044 [facility] 2023-03-16 2023-03-16 Bike Technician Lab, Ang - Db [facility] 1.2.840.1 14 [id number] Univers 09:45:00 09:55:02 Visit Herman Watkins [facility] 350.1.13.10 ity of [facility] 4.2.7.2.686 Baljeet as STEVIE?BLEA [phone] Oh deionbekah CRESPO 353 [facility] 2023-03-16 2023-03-16 Office RoladnNORTHERN [facility] 1.2.840.114 [id number] Univers 09:00:00 09:30:00 Visit [facility] 350.1.13.10 it y of [place] 4.2.7.2.686 Baljeet as STEVIE?BLEA [phone] Oh deionbekah CRESPO 044 [facility] 2023-03-16 2023-03-16 [facility] [id number] Univers 09:00:00 09:00:00 HERMAN [facility] 2023-03-16 2023-03-16 Orders Doctor HERMINIA 1.2.840.114 [id number] Univers 00:00:00 00:00:00 Only Unassigned, SARAH 350.1.13.10 ity of [place] [facility] 4.2.7.2.686 Baljeet as [id number] [facility] [address] [place] 2023-03-07 2023-03-07 Outpatient Alex JOHNSON [facility] [id number] Univers 14:30:00 14:30:00 YUKI sheldon [facility] 2023-02-23 2023-02-24 Emergency [facility] 1.2.129.328 [id number] Univers 17:17:00 02:01:00 Eleni S [facility] 350.1.13.10 i ty of [place] 4.2.7.2.686 [place] [phone] [facility] [address] [place] 2023-02-23 2023-02-23 Outpatient [facility] [id number] Univers 16:00:00 17:05:26 YULIANA sheldon [facility] 2023-02-23 2023-02-23 [facility] [id number] Univers 16:00:00 17:05:26 YULIANA sheldon [facility] 2023-02-23 2023-02-23 Office [facility] 1.2.840.114 [id number] Univers 16:00:00 17:05:26 Visit Yuliana Nuñez [facility] 350.1.13.10 i ty of [place] 4.2.7.2.686 Baljeet as STEVIE?BLEA [id number] [address] OFFICE [facility] 2023-02-20 2023-02-20 Telephone [facility]NOR[facility] 1.2.175.227 [id number] Univers 00:00:00 00:00:00 Herman HEALTH 350.1.13.10 it y of [place] 4.2.7.2.686 Baljeet as STEVIE?BLEA [id number] [address] OFFICE [facility] 2023-02-13 2023-02-13 Out[facility] [id number] Univers 09:45:00 11:55:15 HERMAN [facility] 2023-02-13 2023-02-13 Office [facility] 1.2.840.114 [id number] Univers 09:45:00 11:55:15 Visit [facility] 350.1.13.10 it y of [place] 4.2.7.2.686 Baljeet as STEVIE?BLEA [phone] [address] OFFICE [facility] 2023-01-18 2023-01-18 Refill WatkinsNORTHERN [facility] 1.2.840.114 [id number] Univers 00:00:00 00:00:00 Herman HEALTH 350.1.13.10 it y of [place] 4.2.7.2.686 Baljeet as STEVIE?BLEA [id number] [address] OFFICE [facility] 2023-01-16 2023-01-16 Outpatient R JAVIER [facility] [id number] Univers 14:00:00 14:00:00 REGLA sheldon [facility] 2022-12-09 2022-12-09 Outpatient Alex REYNAGA [facility] [id number] Univers 14:00:00 14:19:15 [facility] 2022-12-09 2022-12-09 Office JavierNORTHERN N[facility] 1.2.557.716 [id number] Univers 14:00:00 14:19:15 Visit Regla MAN 350.1.13.10 ity of [place].2.7.2.686 [place] [id number] [address] [facility] 2022-11-24 2022-11-24 [facility] [id number] Univers 12:00:00 12:20:27 HERMAN [facility] 2022-11-24 2022-11-24 Office RolandNOR[facility] 1.2.840.114 [id number] Univers 12:00:00 12:20:27 Visit Herman [facility] 350.1.13.10 it y of [place] 4.2.7.2.686 Baljeet as STEVIE?BLEA [id number] Oh douglas BALLESTEROSEY 044 [facility] OFFICE BUILDING 2022-10-24 2022-10-24 [facility] [id number] Univers 10:15:00 11:06:14 [facility] 2022-10-24 2022-10-24 Office [facility] 1.2.423.296 [id number] Univers 10:15:00 11:06:14 Visit Regla [place] 350.1.13.10 ity of [place].7.2.686 [place] [id number] [address] [facility] 2022-10-22 2022-10-22 Gaurang BrushNORTHERN NAVAJO [facility] 1.2.840.114 [id number] Univers 00:00:00 00:00:00 Ben SINGH 350.1.13.10 i ty of [place].2.7.2.686 [place] [id number] Oh douglas TREVIZO [address] [facility] 2022-10-10 2022-10-10 Out[facility] [id number] Univers 11:00:00 12:08:38 [facility] 2022-10-10 2022-10-10 Office [facility] 1.2.750.758 [id number] Univers 11:00:00 12:08:38 Visit Regla [place] 350.1.13.10 ity of [place]2.7.2.686 [place] [id number] [address] [facility] 2022-10-07 2022-10-07 Outpatient R JAVIER [facility] [id number] Univers 11:30:00 12:15:14 REGLA ity [facility] 2022-10-07 2022-10-07 Office [facility] 1.2.144.170 [id number] Univers 11:30:00 12:15:14 Visit Regla [place] 350.1.13.10 ity of [place] 4.2.7.2.686 [facility] [place] [id number] [address] [facility] 2022-10-06 2022-10-06 Outpatient R VIRGILIONORTHERN NAVAJO [facility] SPL [id number] Univers 04:59:00 14:45:00 ANGIE itamy [facility] 2022-10-06 2022-10-06 Hospital [facility] 1.2.840.114 [id number] Univers 04:59:00 14:45:00 Encounter Angie Pinto HEALTH 350.1.13.10 ity of [place] 4.2.7.2.686 [facility] [phone] [address] ([facility]) 2022-10-06 2022-10-06 Surgery [facility] 1.2.032.997 [id number] Univers 07:05:00 12:07:00 Angie G SPECIALTY 350.1.13.10 ity of CARE 4.2.7.2.686 [facility] AT [id number] Oh douglas MORRISSEY [address] [place] [address] 2022-10-06 2022-10-06 Orders Doctor HERMINIA 1.2.840.114 [id number] Univers 00:00:00 00:00:00 Only Unassigned, SARAH 350.1.13.10 ity of [place] [facility] 4.2.7.2.686 Baljeet as [id number] [facility] [address] [place] 2022-10-04 2022-10-04 Telephone [facility] 1.2.840.114 [id number] Univers 00:00:00 00:00:00 Angie G SPECIALTY 350.1.13.10 ity of [place]2.7.2.686 [place] AT [id number] Oh douglas MORRISSEY [address] [place] [address] 2022-10-03 2022-10-03 Telephone [facility] 1.2.840.114 10 [id number] Univers 00:00:00 00:00:00 Angie G SPECIALTY 350.1.13.10 ity of [place] 4[place]2.7.2.686 [place] AT [id number] Oh deionct YUNI [address] [place] [address] 2022-10-03 2022-10-03 Telephone HERMINIA Baldwin 1.2.265.164 [id number] Univers 00:00:00 00:00:00 Natali HOUGHY 350.1.13.10 it y of HOSPITAL 4.2.7.2.686 Baljeet as [id number] [facility] [address] [place] 2022-09-29 2022-09-29 Telephone Sanchez [facility] 1.2.651.699 [id number] Univers 00:00:00 00:00:00 Margarette SPECIALTY 350.1.13.10 ity of [place] 4[place]2.7.2.[place] AT [id number] Oh deionct YUNI [address] [place] [address] 2022-09-26 2022-09-26 Telephone [facility] 1.2.840.114 [id number] Univers 00:00:00 00:00:00 Angie G SPECIALTY 350.1.13.10 ity of [place] 4.2.7.2.[place] AT [id number] Oh deionct YUNI [address] [place] [address] 2022-09-21 2022-09-21 Orders Doctor HOPE 1.2.840.114 [id number] Univers 00:00:00 00:00:00 Only Unassigned, SARAH 350.1.13.10 ity of [place] [facility] 4.2.7.2.686 Baljeet as [id number] [address] 2022-09-21 2022-09-21 Telephone [facility]NOR[facility] 1.2.840.114 [id number] Univers 00:00:00 00:00:00 Angie G SPECIALTY 350.1.13.10 ity of [place] 4.2.7.2.686 [place] AT [id number] Oh douglas MORRISSEY [address] [place] [address] 2022-09-20 2022-09-20 Outpatient [facility] [id number] Univers 11:15:00 11:56:55 ANGIE ity of [facility] 2022-09-20 2022-09-20 Office Vir[facility]ilioNORTHERN [facility] 1.2.725.105 [id number] Univers 11:15:00 11:56:55 Visit Angie G SPECIALTY 350.1.13.10 ity of [place] 4.2.7.2.686 [place] AT [id number] Oh douglas MORRISSEY [address] [place] [address] 2022-09-20 2022-09-20 Prep For SanchezNORTHERN [facility] 1.2.840.114 [id number] Univers 00:00:00 00:00:00 Surgery Margarette SPECIALTY 350.1.13.10 ity of [place] C[place] 4.2.7.2.686 [place] AT [id number] Oh deionct YUNI [address] [place] [address] 2022-09-19 2022-09-19 Telephone WatkinsNOR[facility]N [facility] 1.2.204.064 [id number] Univers 00:00:00 00:00:00 Herman HEALTH 350.1.13.10 it y of [place] 4.2.7.2.686 Baljeet as STEVIE?BLEA [phone] [address] MEDICAL OFFICE [facility] 2022-09-07 2022-09-07 Refill WatkinsNORTHERN [facility] 1.2.840.114 [id number] Univers 00:00:00 00:00:00 Herman HEALTH 350.1.13.10 it y of [place] 4.2.7.2.686 Baljeet as STEVIE?BLEA [id number] [address] MEDICAL OFFICE [facility] 2022-08-24 2022-08-24 [facility] [id number] Univers 12:00:00 12:22:07 HERMAN sheldon [facility] 2022-08-24 2022-08-24 Office WatkinsNOR[facility] 1.2.840.114 [id number] Univers 12:00:00 12:22:07 Visit [facility] 350.1.13.10 it y of [facility] 4.2.7.2.686 Baljeet as STEVIE?BLEA [id number] [facility] [address] OFFICE [facility] 2022-08-15 2022-08-15 Refill RolandNORTHERN [facility] 1.2.840.114 [id number] Univers 00:00:00 00:00:00 [facility] 350.1.13.10 it y of [facility] 4.2.7.2.686 Baljeet as STEVIE?BLEA [id number] [address] 2022-07-19 2022-07-19 Outpatient [facility] [id number] Univers 13:00:00 14:48:29 ANGIE sheldon [facility] 2022-07-19 2022-07-19 Office [facility] 1.2.618.841 [id number] Univers 13:00:00 14:48:29 Visit Angie Pinto SPECIALTY 350.1.13.10 ity of [facility] 4.2.7.2.686 [place] AT [id number] Oh douglas MORRISSEY [address] [place] [address] 2022-06-20 2022-06-20 Outpatient [facility] [id number] Univers 13:45:00 13:55:51 HERMAN sheldon [facility] 2022-06-20 2022-06-20 Office [facility]NOR[facility] 1.2.840.114 [id number] Univers 13:45:00 13:55:51 Visit [facility] 350.1.13.10 it y of [facility] 4.2.7.2.686 Baljeet as STEVIE?BLEA [id number] [address] OFFICE [facility] 2022-06-20 2022-06-20 Telephone [facility] 1.2.840.114 [id number] Univers 00:00:00 00:00:00 Angie G SPECIALTY 350.1.13.10 it[place] 4[place]2.7.2.[place] AT [id number] Oh douglas MORRISSEY [address] [facility] 2022-06-15 2022-06-15 Orders Doctor HERMINIA 1.2.840.114 [id number] Univers 00:00:00 00:00:00 Only Unassigned, SARAH 350.1.13.10 ity of [place] [facility] 4.2.7.2.686 Baljeet as [id number] [address] 2022-05-31 2022-05-31 Refill RolandNORTHERN [facility] 1.2.840.114 [id number] Univers 00:00:00 00:00:00 [facility] 350.1.13.10 it y of [facility] 4.2.7.2.686 Baljeet as STEVIE?BLEA [id number] [address] MEDICAL OFFICE [facility] 2022-05-27 2022-05-27 Telephone Vir[facility]ilioNORTHERN [facility] 1.2.840.114 [id number] Univers 00:00:00 00:00:00 Angie G SPECIALTY 350.1.13.10 ity of [place] 4.2.7.2.686 [place] AT [id number] Oh douglas Mae [facility] 2022-05-25 2022-05-25 Telephone RolandNOR[facility]N [facility] 1.2.028.666 [id number] Univers 00:00:00 00:00:00 [facility] 350.1.13.10 it y of [facility] 4.2.7.2.686 Baljeet as STEVIE?BLEA [id number] [address] MEDICAL OFFICE [facility] 2022-05-09 2022-05-09 Outpatient R ROLAND [facility] [id number] Univers 10:15:00 10:42:15 HERMAN sheldon [facility] 2022-05-09 2022-05-09 Office [facility] 1.2.840.114 [id number] Univers 10:15:00 10:30:00 Visit [facility] 350.1.13.10 it y of [facility] 4.2.7.2.686 Baljeet as STEVIE?BLEA [id number] [address] OFFICE [facility] 2022-05-09 2022-05-09 Outpatient R ROLAND [facility] [id number] Univers 10:15:00 10:15:00 HERMAN ity [facility] 2022-04-08 2022-04-08 Telephone [facility]NOR[facility] 1.2.840.114 [id number] Univers 00:00:00 00:00:00 Angie G SPECIALTY 350.1.13.10 ity of [place]2.7.2.686 [place] AT [id number] [address] 2022-03-30 2022-03-30 Orders Doctor HERMINIA 1.2.840.114 [id number] Univers 00:00:00 00:00:00 Only Unassigned, SARAH 350.1.13.10 ity of [place] [facility] 4.2.7.2.686 Baljeet as [id number] [address] 2022-03-25 2022-03-25 Reftammie WatkinsNORTHERN NAVA[facility] 1.2.840.114 [id number] Univers 00:00:00 00:00:00 [facility] 350.1.13.10 it y of [place] 4.2.7.2.686 Baljeet as STEVIE?BLEA [id number] [address] 2022-03-25 2022-03-25 Telephone [facility]NORTHERN [facility] 1.2.840.114 [id number] Univers 00:00:00 00:00:00 Angie G SPECIALTY 350.1.13.10 ity of [place] 4.2.7.2.[place] AT [id number] [address] 2022-03-23 2022-03-23 Telephone [facility]ilioNORTHERN [facility] 1.2.840.114 [id number] Univers 00:00:00 00:00:00 Angie G SPECIALTY 350.1.13.10 ity of [place] 4.2.7.2.686 [place] AT [id number] [address] 2022-03-15 2022-03-15 Outpatient [facility] [id number] Univers 15:00:00 16:32:46 ANGIE ity of [facility] 2022-03-15 2022-03-15 Office [facility] 1.2.398.956 [id number] Univers 15:00:00 16:32:46 Visit Angie Pinto [facility] 350.1.13.10 ity of [facility] 4.2.7.2.686 [facility] AT [phone] Oh douglas MORRISSEY [address] [place] [address] 2022-03-15 2022-03-15 Outpatient Alex [facility] [id number] Univers 15:00:00 16:32:46 ANGIE sheldon [facility] 2022-03-10 2022-03-10 [facility] WatkinsNOR[facility] 1.2.840.114 [id number] Univers 00:00:00 00:00:00 [facility] 350.1.13.10 it y of [place] 4.2.7.2.686 Baljeet as STEVIE?BLEA [id number] Oh douglas CRESPO [address] [place] [address] OFFICE [facility] 2022-03-08 2022-03-08 Outpatient Alex [facility] [id number] Univers 13:15:00 13:15:00 ANGIE sheldon [facility] 2022-03-06 2022-03-06 Gaurang WatkinsNORTHERN [facility] 1.2.840.114 [id number] Univers 00:00:00 00:00:00 [facility] 350.1.13.10 it y of [place] 4.2.7.2.686 Baljeet as STEVIE?BLEA [id number] [facility] Center[facility]ah PHILOMENA [address] [place] [address] OFFICE [facility] 2022-02-28 2022-02-28 Outpatient Alex [facility] [id number] Univers 13:49:26 23:59:00 ANGIE sheldon [facility] 2022-02-28 2022-02-28 [facility] 1.2.840.114 [id number] Univers 13:49:26 23:59:00 Encounter Angie HEALYGENA 350.1.13.10 ity of [place] 4.2.7.2.686 [place] [id number] [address] 2022-02-28 2022-02-28 [facility]NOR[facility] 1.2.840.114 [id number] Univers 10:25:00 13:48:00 Encounter Angie Pinto [place] 350.1.13.10 ity of [place] 4.2.7.2.686 [facility] [id number] [address] 2022-02-23 2022-02-23 Patient [facility]NOR[facility] 1.2.638.102 [id number] Univers 00:00:00 00:00:00 Secure Msg Angie Pinto SPECIALTY 350.1.13.10 ity of CARE 4.2.7.2.686 [facility] CENTER AT [phone] Oh douglas MORRISSEY [address] [place] [address] 2022-02-22 2022-02-22 Bike Technician Vls-Lab [facility] 1.2.840.114 [id number] Univers 14:00:00 14:15:00 Visit Virgilio Angie Pinto SPECIALTY [id number] 0 ity of CARE [id number] [place] [address] AT [phone] Oh douglas MORRISSEY [address] [facility] 2022-02-22 2022-02-22 Outpatient R VIRGILIO [facility] [id number] Univers 14:00:00 14:00:00 ANGIE pito [facility] 2022-02-22 2022-02-22 [facility] [id number] Univers 13:00:00 13:48:46 Visit Angie Pinto SPECIALTY [id number] ity of CARE 4.2.7.2.686 [facility] AT [phone] Oh douglas TAMEKAAmy [address] [place] [address] 2022-02-22 2022-02-22 Outpatient R VIRGILIO [facility] [id number] Univers 13:00:00 13:48:46 ANGIE sheldon [facility] 2022-02-22 2022-02-22 Outpatient R VIRGILIO [facility] [id number] Univers 13:00:00 13:48:46 ANGIE sheldon [facility] 2022-02-16 2022-02-16 Office [facility] [id number] Univers 14:15:00 14:20:13 Visit Herman HEALTH [id number] it y [facility] 4.2.7.2.686 Baljeet as STEVIE?BLEA [phone] [address] 2022-02-16 2022-02-16 Outpatient Alex WATKINS [facility] [id number] Univers 14:15:00 14:20:13 HERMAN sheldon [facility] 2022-02-16 2022-02-16 Outpatient Alex WATKINS [facility] [id number] Univers 14:15:00 14:15:00 HERMAN sheldon [facility] 2022-02-16 2022-02-16 Orders Doctor HERMINIA [id number] [id number] Univers 00:00:00 00:00:00 Only Unassigned, SARAH [id number] ity of [facility] 4.2.7.2.686 Baljeet as [id number] [address] 2022-01-05 2022-01-05 Orders Doctor HERMINIA [id number] [id number] Univers 00:00:00 00:00:00 Only Unassigned, SARAH 350.1.13.10 ity of [facility] 4.2.7.2.686 Baljeet as [phone] [address] [address] 2022-01-03 2022-01-03 Telephone [facility] 1.2.450.475 [id number] [id number] Univers 00:00:00 00:00:00 Herman HEALTH 350.1.13.10 it y of [facility] 4.2.7.2.686 Baljeet as STEVIE?BLEA [phone] [address] 2021-12-27 2021-12-27 Telephone [facility] 1.2.734.417 [id number] Univers 00:00:00 00:00:00 Herman HEALTH 350.1.13.10 it y of [facility] 4.2.7.2.686 Baljeet as STEVIE?BLEA [phone] [address] 2021-12-25 2021-12-25 Refill [facility] 1.2.840.114 [id number] Univers 00:00:00 00:00:00 Herman HEALTH 350.1.13.10 it y of [place] 4.2.7.2.686 Baljeet as PROFESSIO [phone] [address] OFFICE BUILDING ONE 2021-12-22 2021-12-22 Telephone Roland [facility] 1.2.266.451 [id number] Univers 00:00:00 00:00:00 Herman HEALTH 350.1.13.10 it y of [place] 4.2.7.2.686 Baljeet as STEVIE?BLEA [phone] [address] OFFICE [facility] 2021-12-21 2021-12-21 Orders Doctor HERMINIA 1.2.840.114 [id number] Univers 00:00:00 00:00:00 Only Unassigned, SARAH 350.1.13.10 ity of [place] [facility] 4.2.7.2.686 Baljeet as [phone] [address] 2021-12-08 2021-12-08 Orders Doctor HERMINIA 1.2.840.114 [id number] Univers 00:00:00 00:00:00 Only Unassigned, SARAH 350.1.13.10 ity of [place] [facility] 4.2.7.2.686 Baljeet as [phone] [address] 2021-11-30 2021-11-30 Orders Doctor HERMINIA 1.2.840.114 [id number] Univers 00:00:00 00:00:00 Only Unassigned, SARAH 350.1.13.10 ity of [place] [facility] 4.2.7.2.686 Baljeet as [phone] [address] 2021-11-25 2021-11-25 Telephone [facility] 1.2.981.202 [id number] Univers 00:00:00 00:00:00 Herman HEALTH 350.1.13.10 it y of [place] 4.2.7.2.686 Baljeet as STEVIE?BLEA [phone] [address] OFFICE [facility] 2021-11-09 2021-11-09 Refill Roland [facility] 1.2.840.114 [id number] Univers 00:00:00 00:00:00 Herman HEALTH 350.1.13.10 it y of [place] 4.2.7.2.686 Baljeet as PROFESSIO [phone] [address] OFFICE [facility] ONE 2021-10-30 2021-10-30 Refill [facility] 1.2.840.114 [id number] Univers 00:00:00 00:00:00 Herman HEALTH 350.1.13.10 it y of [place] 4.2.7.2.686 Baljeet as PROFESSIO [phone] [address] OFFICE [facility] ONE 2021-10-25 2021-10-25 Refill [facility] 1.2.840.114 [id number] Univers 00:00:00 00:00:00 Herman HEALTH 350.1.13.10 it y of [place] 4.2.7.2.686 Baljeet as PROFESSIO [phone] [address] ONE 2021-10-04 2021-10-04 Patient [facility] 1.2.840.114 [id number] Univers 00:00:00 00:00:00 Secure Msg Herman HEALTH 350.1.13.10 ity of [place] 4.2.7.2.686 Baljeet as STEVIE?BLEA [phone] [address] OFFICE [facility] 2021-09-15 2021-09-15 Office [facility] 1.2.840.114 [id number] Univers 14:00:00 14:44:21 Visit [facility] 350.1.13.10 it y of [place] 4.2.7.2.686 Baljeet as STEVIE?BLEA [phone] [address] OFFICE [facility] 2021-09-15 2021-09-15 Outpatient Alex WATKINS [facility] [id number] Univers 14:00:00 14:44:21 HERMAN sheldon [facility] 2021-09-15 2021-09-15 Outpatient Alex WATKINS [facility] [id number] Univers 14:00:00 14:00:00 HERMAN sheldon [facility] 2021-09-15 2021-09-15 Telephone Roland [facility] 1.2.021.959 [id number] Univers 00:00:00 00:00:00 [facility] 350.1.13.10 it y of [place] 4.2.7.2.686 Baljeet as STEVIE?BLEA [phone] [address] OFFICE [facility] 2021-09-09 2021-09-09 Outpatient R CASPER [facility] [id number] Univers 14:40:00 14:40:00 ESAU [facility] 2021-09-09 2021-09-09 Imm/Inj Nurse, Adc Pob Immunization [facility] 1..840.114 [id number] Univers 14:40:00 14:40:00 Visit Esau Shirley 350.1.13 .10 ity [facility] [place]2.7.2.[place] [phone] Oh dicct NAL 421 [facility] 2021-09-09 2021-09-09 Outpatient R CASPER [facility] [id number] Univers 14:40:00 14:33:08 [facility] 2021-09-09 2021-09-09 Office Winsome [facility] 1.2.840.114 [id number] Univers 14:00:00 14:30:00 Visit Ben SINGH 350.1.13.10 i ty of [place].7.2.[place] [phone] Oh dical NAL 085 [facility] 2021-09-09 2021-09-09 Outpatient R BEN BRUSH [facility] 10 [id number] Univers 14:00:00 14:00:00 BEN BRUSH i ty of [facility] 2021-08-19 2021-08-19 Telephone [facility] 1..556.911 [id number] Univers 00:00:00 00:00:00 [facility] 350.1.13.10 it y of [place] 4.2.7.2.686 Baljeet as STEVIE?BLEA [phone] [address] OFFICE [facility] 2021-08-10 2021-08-10 Refill Roland [facility] 1.2.840.114 [id number] Univers 00:00:00 00:00:00 [place] [facility]ALTH 350.1.13.10 it y of [facility] 4.2.7.2.686 Baljeet as PROFESSIO [phone] [address] OFFICE [facility] ONE 2021-08-09 2021-08-09 Orders Doctor HERMINIA 1.2.840.114 [id number] Univers 00:00:00 00:00:00 Only Unassigned, SARAH 350.1.13.10 ity of [place] [facility] 4.2.7.2.686 Baljeet as [phone] [address] 2021-08-06 2021-08-06 Reftammie Watkins [facility] 1.2.840.114 [id number] Univers 00:00:00 00:00:00 [place] HEALTH 350.1.13.10 it y of [facility] 4.2.7.2.686 Baljeet as PROFESSIO [phone] [address] OFFICE [facility] ONE 2021-06-20 2021-06-20 Gaurang Brush VARENÉ 1.2.840.114 [id number] Univers 00:00:00 00:00:00 Shiwan [place] 350.1.13.10 i ty of [place] [phone] [facility] 085 [facility] 2021-05-13 2021-05-13 Angela Watkins VARENÉ 1.2.468.968 [id number] Univers 00:00:00 00:00:00 [facility] 350.1.13.10 it y of [place] 4.2.7.2.686 Baljeet as Stevie?Blea [phone] [facility] [address] [place] [facility] 2021-05-11 2021-05-11 Gaurang Watkins [facility] 1.2.840.114 [id number] Univers 00:00:00 00:00:00 [facility] 350.1.13.10 it y of [place] 4.2.7.2.686 Baljeet as Professio [phone] [address] Office Building One 2021-05-04 2021-05-04 Gaurang [facility] 1.2.840.114 [id number] Univers 00:00:00 00:00:00 Herman [facility] 350.1.13.10 it y of [place] 4.2.7.2.686 Baljeet as [facility] [phone] [address] Office [facility] One 2021-04-30 2021-04-30 [facility] [id number] Univers 10:30:00 10:30:00 SKIP itamy [facility] 2021-04-29 2021-04-29 Outpatient [facility] [id number] Univers 09:45:00 09:45:00 SKIP [facility] 2021-04-28 2021-04-28 [facility] 1.2.840.114 [id number] Univers 09:37:11 23:59:00 Encounter Herman Singh 350.1.13.10 ity [facility] 4.2.7.2.686 [facility] [phone] [facility] [address] [place] 2021-04-28 2021-04-28 [facility] 1.2.840.114 [id number] Univers 09:30:00 09:36:00 Encounter Elias Singh 350.1.13.10 ity [facility] 4.2.7.2.686 [facility] [phone] [facility] [address] [place] 2021-04-28 2021-04-28 Outpatient [facility] [id number] Univers 00:00:00 00:00:00 ELIAS ity [facility] 2021-04-27 2021-04-27 Orders Doctor HERMINIA 1.2.840.114 [id number] Univers 00:00:00 00:00:00 Only Unassigned, SARAH 350.1.13.10 ity of [place] [facility] 4.2.7.2.686 Baljeet as [phone] [facility] [address] 2021-04-27 2021-04-27 [facility] 1.2.820.924 [id number] Univers 00:00:00 00:00:00 Brandy Singh 350.1.13.10 ity of [place] [phone] [facility] 204 [facility] 2021-04-26 2021-04-26 Office Gareth [facility] 1.2.840.114 [id number] 02 Univers 14:49:46 15:40:00 Visit Brandy Singh 350.1.13.10 ity of [place] [phone] [facility] 204 [facility] 2021-04-26 2021-04-26 Outpatient R GARETH [facility] [id number] Univers 15:00:00 15:00:00 BRANDY sheldon [facility] 2021-04-13 2021-04-13 Telephone [facility] 1.2.575.240 [id number] Univers 00:00:00 00:00:00 [facility] 350.1.13.10 it y of [place] 4.2.7.2.686 Baljeet as Professio [phone] [facility] 044 [facility] One 2021-04-12 2021-04-12 Hospital [facility] 1.2.840.114 [id number] Univers 14:28:30 23:59:00 Encounter Herman Singh 350.1.13.10 ity of [place].2.[place] [phone] [facility] [address] [place] [address] 2021-04-12 2021-04-12 Office [facility] 1.2.840.114 [id number] Univers 13:27:35 13:42:35 Visit Herman [facility] 350.1.13.10 it y of [place] 4.2.7.2.686 Baljeet as Professio [phone] [facility] 044 [facility] One 2021-04-12 2021-04-12 Outpatient R ROLAND [facility] [id number] Univers 13:30:00 13:30:00 HERMAN sheldon [facility] 2021-04-12 2021-04-12 Orders Doctor HOPE 1.2.840.114 [id number] Univers 00:00:00 00:00:00 Only Unassigned, SARAH 350.1.13.10 ity of [place] [facility] 4.2.7.2.686 Baljeet as [phone] [address] 2021-04-05 2021-04-05 Telephone Roland [facility] 1.2.458.428 [id number] 8209 Univers 00:00:00 00:00:00 [facility] 350.1.13.10 it y of [place] 4.2.7.2.686 Baljeet as Professio [phone] Oh dical nal 044 [facility] One 2021-04-02 2021-04-02 Telephone [facility] 1.2.840.114 [id number] Univers 00:00:00 00:00:00 Skip L Health 350.1.13.10 it y of Surgical 4.2.7.2.686 Baljeet as Specialti [phone] Oh dical es 198 [facility] 2021-04-01 2021-04-01 Refill [facility] 1.2.840.114 [id number] 96 Univers 00:00:00 00:00:00 [facility] 350.1.13.10 it y of [place] 4.2.7.2.686 Baljeet as Professio [phone] Oh dical nal 044 [facility] One 2021-03-22 2021-03-22 Telephone [facility] 1.2.840.114 [id number] Univers 00:00:00 00:00:00 Skip L Health 350.1.13.10 it y of Surgical 4.2.7.2.686 Baljeet as Specialti [phone] Oh dical es 198 [facility] 2021-03-22 2021-03-22 Orders Doctor HERMINIA 1.2.840.114 [id number] Univers 00:00:00 00:00:00 Only Unassigned, SARAH 350.1.13.10 ity of [place] [facility] 4.2.7.2.686 Baljeet as [phone] [address] 2021-03-18 2021-03-18 Telephone [facility] 1.2.840.114 [id number] Univers 00:00:00 00:00:00 Skip Singh 350.1.13.10 i ty of [place] [phone] Oh dical nal 198 [facility] 2021-03-16 2021-03-16 Telephone Anders [facility] 1.2.214.763 [id number] Univers 00:00:00 00:00:00 Yemi Singh 350.1.13.10 i ty of [place].2.[place] [phone] Oh dical nal 198 [facility] 2021-03-15 2021-03-15 Office [facility] 1.2.298.788 [id number] 1950 Univers 13:38:05 14:13:02 Visit Skip Barnett [facility] 350.1.13.10 it y of Surgical 4.2.7.2.686 Baljeet as Specialti [phone] Oh dical es [address] [place] [address] 2021-03-15 2021-03-15 [facility] [id number] Univers 13:45:00 13:45:00 SKIP sheldon [facility] 2021-02-16 2021-02-16 [facility] 1.2.840.114 [id number] Univers 10:23:22 23:59:00 Encounter Herman Singh 350.1.13.10 ity of [place].2.[place] [phone] [facility] [address] [place] 2021-02-16 2021-02-16 [facility] 1.2.840.114 [id number] Univers 10:22:27 10:22:27 Encounter Herman Singh 350.1.13.10 ity of [place].2.[place] [id number] [facility] [address] [place] 2021-02-16 2021-02-16 Outpatient [facility] [id number] Univers 00:00:00 00:00:00 HERMAN sheldon [facility] 2021-02-16 2021-02-16 Refill Doctor [facility] 1.2.840.114 [id number] Univers 00:00:00 00:00:00 Unassigned, Health 350.1.13.10 ity of [place] 4.2.7.2.686 Baljeet as Professio [id number] [facility] 044 [facility] Named [facility] 2021-02-16 2021-02-16 Reftammie Brush [facility] 1.2.840.114 [id number] Univers 00:00:00 00:00:00 Shiwan [place] 350.1.13.10 i ty of [place] [phone] [facility] 085 [facility] 2021-02-11 2021-02-11 Office [facility] 1.2.840.114 [id number] 04 Univers 10:11:49 10:47:01 Visit [facility] 350.1.13.10 it y of [place] 4.2.7.2.686 Baljeet as Professio [phone] [address] 2021-02-11 2021-02-11 Outpatient R ROLAND [facility] [id number] Univers 10:15:00 10:15:00 HERMAN sheldon [facility] 2021-02-05 2021-02-05 Orders Doctor HERMINIA 1.2.840.114 [id number] Univers 00:00:00 00:00:00 Only Unassigned, SARAH 350.1.13.10 ity of [place] [facility] 4.2.7.2.686 Baljeet as [phone] [address] 2021-02-04 2021-02-04 Refill [facility] 1.2.840.114 [id number] Univers 00:00:00 00:00:00 [facility] 350.1.13.10 it y of [place] 4.2.7.2.686 Baljeet as Professio [phone] [address] 2021-02-02 2021-02-02 Patient [facility] 1.2.840.114 [id number] Univers 00:00:00 00:00:00 Outreach Jessika Barnett [facility] 350.1.13.10 i ty of [place] 4.2.7.2.686 Baljeet as Professio [phone] Oh dical nal [address] [place] Office [facility] One 2021-02-01 2021-02-01 Refill Doctor [facility] 1.2.840.114 [id number] Univers 00:00:00 00:00:00 Unassigned, Health 350.1.13.10 ity of [place] 4.2.7.2.686 Baljeet as Professio [phone] [address] Office Building One 2021-01-27 2021-01-27 Orders Doctor HERMINIA 1.2.840.114 [id number] Univers 00:00:00 00:00:00 Only Unassigned, SARAH 350.1.13.10 ity of [place] [facility] 4.2.7.2.686 Baljeet as [phone] [address] 2021-01-21 2021-01-21 Hospital [facility] 1.2.840.114 [id number] Univers 12:40:28 23:59:00 Encounter Herman Singh 350.1.13.10 ity of [place].2.[place] [phone] [facility] [address] [place] 2021-01-21 2021-01-21 Office [facility] 1.2.840.114 [id number] Univers 12:04:11 12:25:41 Visit Herman [facility] 350.1.13.10 it y of [place] 4.2.7.2.686 Baljeet as Professio [phone] [address] Office Building One 2021-01-21 2021-01-21 [facility] [id number] Univers 12:15:00 12:15:00 HERMAN ity of [facility] 2021-01-21 2021-01-21 Orders Doctor HERMINIA 1.2.840.114 [id number] Univers 00:00:00 00:00:00 Only Unassigned, SARAH 350.1.13.10 ity of [place] [facility] 4.2.7.2.686 Baljeet as [phone] [address] 2021-01-20 2021-01-20 Ancillary Yi Kennedy [facility] 1 .2.840.114 [id number] Univers 09:53:52 10:53:52 Visit Skip Merrill Samantha 350.1.13.10 ity of [place].2.[place] [facility] [phone] Oh dical nal 178 [facility] 2021-01-20 2021-01-20 Outpatient R DESIRAE [facility] [id number] Univers 10:15:00 10:15:00 SKIP sheldon [facility] 2021-01-07 2021-01-07 Telephone [facility] 1.2.044.024 [id number] Univers 00:00:00 00:00:00 [facility] 350.1.13.10 it y of [place] 4.2.7.2.686 Baljeet as Professio [phone] Oh dical nal [address] [place] Office [facility] One 2021-01-05 2021-01-05 Hospital [facility] 1.2.840.114 [id number] Univers 12:07:20 23:59:00 Encounter Herman Singh 350.1.13.10 ity of [place].2.[place] [id number] [facility] [address] 2021-01-05 2021-01-05 Outpatient Alex WATKINS [facility] [id number] Univers 00:00:00 00:00:00 HERMAN sheldon [facility] 2021-01-05 2021-01-05 Orders Doctor HOPE 1.2.840.114 [id number] Univers 00:00:00 00:00:00 Only Unassigned, SARAH 350.1.13.10 ity of [place] [facility] 4.2.7.2.686 Baljeet as [phone] [facility] [address] 2020-12-30 2020-12-30 Outpatient [facility] [id number] Univers 00:00:00 00:00:00 HERMAN sheldon [facility] 2020-12-25 2020-12-25 Refill [facility] 1.2.840.114 [id number] Univers 00:00:00 00:00:00 [facility] 350.1.13.10 it y of [place] 4.2.7.2.686 Baljeet as Professio [phone] [address] Office [facility] One 2020-12-23 2020-12-23 Office Roland [facility] 1.2.840.114 [id number] Univers 12:28:15 13:38:28 Visit Herman [facility] 350.1.13.10 it y of [place] 4.2.7.2.686 Baljeet as Professio [phone] [address] Office [facility] One 2020-12-23 2020-12-23 Bike Technician Lab, Adc Fam Pob I [facility] 1.2. 840.114 [id number] Univers 13:09:13 13:29:13 Visit Herman Watkins [facility] 350.1.13.10 ity of [place] 4.2.7.2.686 Baljeet as Professio [phone] [address] One 2020-12-23 2020-12-23 Outpatient R WATKINS [facility] [id number] 772 Univers 12:30:00 12:30:00 [facility] 2020-10-22 2020-10-22 [facility] [id number] Univers 10:20:00 10:20:00 EUGENIA [facility] 2020-10-09 2020-10-09 Telephone [facility] 1.2.515.134 [id number] Univers 00:00:00 00:00:00 [facility] 350.1.13.10 it y of [place] 4.2.7.2.686 Baljeet as Professio [phone] [address] Office [facility] One 2020-10-09 2020-10-09 Telephone [facility] 1.2.276.624 [id number] 00:00:00 00:00:00 [facility] 350.1.13.10 [place] 4.2.7.2.686 Professio [phone] [place] [address] Office [facility] One 2020-10-01 2020-10-01 Outpatient R BARBARA [facility] [id number] Univers 10:10:00 10:10:00 EUGENIA pito [facility] 2020-09-29 2020-09-29 Telephone Roland [facility] 1.2.197.036 [id number] Univers 00:00:00 00:00:00 [facility] 350.1.13.10 it y of [place] 4.2.7.2.686 Baljeet as Professio [phone] [address] Office [facility] 2020-09-29 2020-09-29 Patient Casper [facility] 1.2.840.114 [id number] Univers 00:00:00 00:00:00 Outreach Esau PR[facility] 350.1.13.10 i ty of [facility] [place]2.7.2.[place] [phone] [address] 2020-09-29 2020-09-29 Telephone Roland [facility] 1.2.629.035 [id number] 0106 00:00:00 00:00:00 [facility] 350.1.13.10 [place] 4.2.7.2.686 Professio [phone] [address] 2020-09-24 2020-09-24 Reftammie Brush [facility] 1.2.840.114 [id number] 13 Univers 00:00:00 00:00:00 Shimercedesn [place] 350.1.13.10 i ty of [place].7.2.[place] [phone] [address] 2020-09-24 2020-09-24 Gaurang Brush [facility] 1.2.840.114 [id number] 13 00:00:00 00:00:00 Shiwan [place] 350.1.13.10 [place] 4.2.7.2.686 Professio [phone] [address] 2020-09-23 2020-09-23 Outpatient R BARBARA [facility] [id number] Univers 15:40:00 15:40:00 EUGENIA amy [facility] 2020-09-14 2020-09-14 Orders Doctor HOPE 1.2.840.114 [id number] Univers 00:00:00 00:00:00 Only Unassigned, SARAH 350.1.13.10 ity of [place] [facility] 4.2.7.2.686 Baljeet as [phone] [address] 2020-09-03 2020-09-03 Refill Roland [facility] 1.2.840.114 [id number] Univers 00:00:00 00:00:00 [facility] 350.1.13.10 it y of [place] 4.2.7.2.686 Baljeet as Professio [phone] [address] Office [facility] One 2020-08-19 2020-08-19 Telephone [facility] 1.2.187.691 [id number] Univers 00:00:00 00:00:00 [facility] 350.1.13.10 it y of [place] 4.2.7.2.686 Baljeet as Professio [phone] [address] One 2020-08-17 2020-08-17 Bike Technician Lab, Adc Fam Pob I [facility] 1.2. 840.114 [id number] Univers 09:30:19 09:47:15 Visit Herman Watkins [facility] 350.1.13.10 ity of [place] 4.2.7.2.686 Baljeet as Professio [phone] [address] One 2020-08-17 2020-08-17 [facility] [id number] Univers 09:00:00 09:00:00 HERMAN ity of [facility] 2020-08-14 2020-08-14 Telephone [facility] 1.2.395.608 [id number] Univers 00:00:00 00:00:00 [facility] 350.1.13.10 it y of [place] 4.2.7.2.686 Baljeet as Professio [phone] [address] Office [facility] One 2020 2020 Refill [facility] 1.2.840.114 [id number] Univers 00:00:00 00:00:00 Ben [place] 350.1.13.10 i ty of [place].7.2.[place] [phone] Oh dical nal 085 [facility] 2020-07-16 2020-07-16 Refill Elizabeth [facility] 1.2.840.114 [id number] Univers 00:00:00 00:00:00 [facility] 350.1.13.10 it y of [place] 4.2.7.2.686 Baljeet as Professio [phone] Oh dical nal 044 Formerly Named [facility] 2020-07-16 2020-07-16 Refill [facility] 1.2.840.114 [id number] Univers 00:00:00 00:00:00 [facility] 350.1.13.10 it y of [place] 4.2.7.2.686 Baljeet as Professio [phone] Oh dical nal 044 [facility] 2020-07-16 2020-07-16 Orders Doctor HERMINIA 1.2.840.114 [id number] Univers 00:00:00 00:00:00 Only Unassigned, SARAH 350.1.13.10 ity of [place] [facility] 4.2.7.2.686 Baljeet as [phone] [address] 2020-07-15 2020-07-15 Reftammie Brush [facility] 1.2.840.114 [id number] Univers 00:00:00 00:00:00 Shiwan [place] 350.1.13.10 i ty [place] [phone] Oh dical nal 059 [facility] 2020-07-02 2020-07-02 Orders Doctor HERMINIA 1.2.840.114 [id number] Univers 00:00:00 00:00:00 Only Unassigned, SARAH 350.1.13.10 ity of [place] [facility] 4.2.7.2.686 Baljeet as [phone] [address] 2020-06-18 2020-06-18 Telephone [facility] 1.2.011.010 [id number] Univers 00:00:00 00:00:00 [facility] 350.1.13.10 it y of [place] 4.2.7.2.686 Bal[place]et as Professio [phone] Me dical nal 044 [facility] 2020-06-17 2020-06-17 [facility] 1.2.840.114 [id number] Univers 00:00:00 00:00:00 Shiwan [place] 350.1.13.10 i ty [place]2.[place] [phone] Oh deionct nal 085 [facility] 2020-06-12 2020-06-12 [facility] 1.2.327.255 [id number] Univers 00:00:00 00:00:00 [facility] 350.1.13.10 it y of [place] 4.2.7.2.686 Baljeet as Professio [phone] [facility] nal 044 [facility] One 2020-05-25 2020-05-25 [facility] 1.2.840.114 [id number] Univers 00:00:00 00:00:00 [facility] 350.1.13.10 it y of [place] 4.2.7.2.686 Baljeet as Professio [phone] [facility] nal 044 [facility] One 2020-05-25 2020-05-25 [facility] 1.2.840.114 [id number] Univers 00:00:00 00:00:00 [facility] 350.1.13.10 it y of [place] 4.2.7.2.686 Baljeet as Professio [phone] [facility] nal [address] [place] [address] One 2020-05-22 2020-05-22 [facility] 1.2.840.114 [id number] 181 Univers 00:00:00 00:00:00 [facility] 350.1.13.10 it y of [place] 4.2.7.2.686 Baljeet as Professio [phone] [facility] [address] [place] [address] One 2020-05-22 2020-05-22 [facility] 1.2.840.114 [id number] 80 Univers 00:00:00 00:00:00 Shiwan [place] 350.1.13.10 i ty of [place] Profess[place] [phone] Oh dical nal 085 [facility] 2020-05-21 2020-05-21 Office Lizeth [facility] 1.2.840.114 [id number] 56 Univers 15:36:34 16:06:34 Visit Aburey [facility] 350.1.13.10 it y of [place] 4.2.7.2.686 Baljeet as Professio [phone] Oh dical nal [address] [place] Office [facility] One 2020-05-21 2020-05-21 Outpatient R LIZETH [facility] [id number] Univers 16:00:00 16:00:00 AUBREY ity of [facility] 2020-05-04 2020-05-04 Orders Doctor HERMINIA 1.2.840.114 [id number] Univers 00:00:00 00:00:00 Only Unassigned, SARAH 350.1.13.10 ity of [place] [facility] 4.2.7.2.686 Baljeet as [phone] [address] 2020-04-22 2020-04-22 Refill [facility] 1.2.840.114 [id number] 83 Univers 00:00:00 00:00:00 [facility] 350.1.13.10 it y of [place] 4.2.7.2.686 Baljeet as Professio [phone] [facility] nal [address] [place] [address] Office [facility] One 2020-04-22 2020-04-22 Refill Elizabeth [facility] 1.2.840.114 [id number] 284 Univers 00:00:00 00:00:00 [facility] 350.1.13.10 it y of [place] 4.2.7.2.686 Baljeet as Professio [phone] Oh dical nal [address] [place] Office Building [facility] 2020-04-12 2020-04-12 [facility]ill [facility] 1.2.840.114 [id number] Univers 00:00:00 00:00:00 [facility] 350.1.13.10 it y of [place] 4.2.7.2.686 Baljeet as Professio [phone] [facility] nal [address] [place] Office [facility] One 2020-04-03 2020-04-03 Telephone Roland [facility] 1.2.325.580 [id number] 0153 Univers 00:00:00 00:00:00 Herman [place] 350.1.13.10 i ty of [place]2.7.2.[place] Profess[place] [phone] Oh dical nal 044 [facility] 2020-04-02 2020-04-02 Orders Doctor HERMINIA 1.2.840.114 [id number] Univers 00:00:00 00:00:00 Only Unassigned, SARAH 350.1.13.10 ity of [place] [facility] 4.2.7.2.686 Baljeet as [phone] [address] 2020-03-31 2020-03-31 Telephone [facility] 1.2.292.271 [id number] 3359 Univers 00:00:00 00:00:00 [facility] 350.1.13.10 it y of [place] 4.2.7.2.686 Baljeet as Professio [phone] Oh dicct nal [address] [place] [address] 2020-03-11 2020-03-11 Reftammie Johnson [facility] 1.2.840.114 [id number] 846 Univers 00:00:00 00:00:00 [facility] 350.1.13.10 it y of V[place]nu [place] 4.2.7.2.686 Baljeet as Professio [phone] Oh dicct nal [address] [place] [address] 2020-02-15 2020-02-15 Reftammie Brush [facility] 1.2.840.114 [id number] 50 Univers 00:00:00 00:00:00 Shanitamercedesradhika [place] 350.1.13.10 i ty of [place] 4.2.7.2.[place] Profess[place] [phone] Oh dical nal 085 [facility] 2020-01-21 2020-01-21 Telephone Winsome [facility] 1.2.093.616 [id number] 0989 Univers 00:00:00 00:00:00 Alexn [place] 350.1.13.10 i ty of [place] 4.2.7.2.686 [place] Profess[place] [phone] Oh dicct nal [address] [place] [address] 2020-01-20 2020-01-20 Refill [facility] 1.2.840.114 [id number] 66 Univers 00:00:00 00:00:00 [facility] 350.1.13.10 it y of [place] 4.2.7.2.686 Baljeet as Professio [phone] [address] 2020-01-17 2020-01-17 Telephone [facility] 1.2.597.556 7224 6751 Univers 00:00:00 00:00:00 [facility] 350.1.13.10 it y of [place] 4.2.7.2.686 Baljeet as Professio [phone] [address] 2020-01-16 2020-01-16 [facility] 1.2.840.114 [id number] 69 Univers 00:00:00 00:00:00 [facility] 350.1.13.10 it y of [place] 4.2.7.2.686 Baljeet as Professio [phone] [address] 2020-01-16 2020-01-16 [facility] 1.2.840.114 [id number] 71 Univers 00:00:00 00:00:00 Herman [place] 350.1.13.10 i ty of [place]2.7.2.[place] [phone] [address] 2020-01-01 2020-01-01 Angela [facility] 1.2.496.097 8601 5868 Univers 00:00:00 00:00:00 [facility] 350.1.13.10 it y of [place] 4.2.7.2.686 Baljeet as Professio [phone] [address] 2019-12-24 2019-12-24 Outpatient R ELIZABETH [facility] [id number] Univers 11:00:00 11:00:00 YUKI sheldon of [facility] 2019-12-24 2019-12-24 Telemedici [facility] 1.2.840.114 [id number] Univers 10:28:50 10:43:50 ne Visit Yuki Singh 350.1.13.10 ity of [place] 4.2.7.2.686 [place] Profess[place] [phone] [address] 2019-12-20 2019-12-20 Telephone Roland [facility] 1.2.247.951 [id number] 4720 Univers 00:00:00 00:00:00 Herman Singh 350.1.13.10 i ty of [place]2.7.2.[place] [phone] [address] 2019-12-19 2019-12-19 Orders Doctor HERMINIA 1.2.840.114 [id number] Univers 00:00:00 00:00:00 Only Unassigned, SARAH 350.1.13.10 ity of [place] [facility] 4.2.7.2.686 Baljeet as [phone] [address] 2019-12-18 2019-12-18 Telephone [facility] 1.2.951.054 0901 5721 Univers 00:00:00 00:00:00 [facility] 350.1.13.10 it y of [place] 4.2.7.2.686 Baljeet as Professio [phone] [address] 2019-12-04 2019-12-04 Outpatient Alex WATKINS [facility] [id number] Univers 12:15:00 12:15:00 HERMAN goldieamy [facility] 2019-12-04 2019-12-04 Telemedici [facility] 1.2.840.114 [id number] Univers 06:54:04 07:09:04 ne Visit [facility] 350.1.13.10 i ty of [place] 4.2.7.2.686 Baljeet as Professio [phone] [address] 2019-10-31 2019-10-31 Refill [facility] 1.2.840.114 [id number] 21 Univers 00:00:00 00:00:00 [facility] 350.1.13.10 it y of [place] 4.2.7.2.686 Baljeet as Professio [phone] [address] 2019-10-25 2019-10-25 Outpatient Alex WATKINS [facility] [id number] Univers 10:20:22 23:59:00 HERMAN ity of [facility] 2019-10-25 2019-10-25 Hospital [facility] 1.2.840.114 [id number] Univers 10:00:00 23:59:00 Encounter Herman Singh 350.1.13.10 ity of [place] 4.2.7.2.686 [place] [facility] [phone] [facility] [address] [place] 2019-10-17 2019-10-17 Office [facility] 1.2.840.114 [id number] 12 Univers 14:16:28 14:31:28 Visit [facility] 350.1.13.10 it y of [place] 4.2.7.2.686 Baljeet as Professio [phone] Oh dicct nal 044 [facility] One 2019-10-17 2019-10-17 Orders Doctor HERMINIA 1.2.840.114 [id number] Univers 00:00:00 00:00:00 Only Unassigned, SARAH 350.1.13.10 ity of [place] [facility] 4.2.7.2.686 Baljeet as [phone] [facility] [address] [place] 2019-10-14 2019-10-14 Refill [facility] 1.2.840.114 [id number] [id number] Univers 00:00:00 00:00:00 [facility] 350.1.13.10 it y of Vishnu Singh 4.2.7.2.686 Baljeet as Professio [phone] Oh dicct nal [address] [place] Office [facility] 2019-09-25 2019-09-25 Orders Doctor HERMINIA 1.2.840.114 [id number] Univers 00:00:00 00:00:00 Only Unassigned, SARAH 350.1.13.10 ity of [place] [facility] 4.2.7.2.686 Baljeet as [phone] [address] 2019-05-17 2019-05-17 Refill [facility] 1.2.840.114 [id number] 40 Univers 00:00:00 00:00:00 [facility] 350.1.13.10 it y of [place] 4.2.7.2.686 Baljeet as Professio [phone] [address] Office Building One 2019-05-15 2019-05-15 Refill Roland [facility] 1.2.840.114 [id number] Univers 00:00:00 00:00:00 [facility] 350.1.13.10 it y of [place] 4.2.7.2.686 Baljeet as Professio [phone] [address] Building One 2019-04-15 2019-04-15 Angela Watkins VARENÉ 1.2.258.327 5581 5327 Univers 00:00:00 00:00:00 [facility] 350.1.13.10 it y of [place] 4.2.7.2.686 Baljeet as Professio [phone] [address] One 2007-07-09 2007-07-09 Orders Doctor HERMINIA 1.2.840.114 [id number] Univers 00:00:00 00:00:00 Only Unassigned, SARAH 350.1.13.10 ity of [place] [facility] 4.2.7.2.686 Baljeet as [phone] [address] Results Test Description Test Time Test Comments Results Result Comments Source TROPONIN I 2023-02-24 01:21:44 Test Item Value Reference Range Interpretation Comme nts TROPONIN I (test code = 1484939888) 0.002 ng/mL <=0.034 DEVENDRA (test code = [...] biotin. Lab Interpretation (test code = Normal 13527-7) [facility]. METABOLIC PANEL (30152)2023-02-23 23:09:07 Test Item Value Reference Range Interpretation Comments NA (test code = 137 mmol/L 135-145 9093246718) K (test code = 3.1 mmol/L 3.5-5.0 L 2029389617) CL (test code = 98 mmol/L 98-108 9245990197) CO2 TOTAL (test code = 29 mmol/L 23-31 7620891013) AGAP (test code = 10 2-16 3512144326) BUN (test code = 10 mg/dL 7-23 4069619370) GLUCOSE (test code = 121 mg/dL 70-110 H 3418973369) CREATININE (test code = 0.53 mg/dL 0.50-1.04 6173132786) TOTAL BILI (test code = 0.9 mg/dL 0.1-1.0 8726552520) CALCIUM (test code = 8.9 mg/dL 8.6-10.6 5860104819) T PROTEIN (test code = 6.5 g/dL 6.3-8.2 9650587330) ALBUMIN (test code = 3.9 g/dL 3.5-5.0 3028175818) ALK PHOS (test code = 65 U/L 34-122 3581832112) ALTv (test code = 24 U/L 5-35 1742-6) AST(SGOT) (test code = 35 U/L 13-40 2454017363) eGFR (test code = 115.1 mL/min/1.73m2 2363918463) DEVENDRA (test code = DEVENDRA) Association of [...] tests). Lab Interpretation Abnormal (test code = 21754-5) [facility] 23:08:47 Test Item Value Reference Range Interpretation Comments LIPASE (test code = 8533991435) 58 U/L 0-220 Lab Interpretation (test code = Normal 69260-4) [facility] WITH [id number] 23:00:04 Test Item Value Reference Range Interpretation Comments WBC (test code = 13.55 See_Comment H [Automated 9990-2) message] The system which generated this result transmit aleksandra reference range : 4.30 - 11.10 10*3/?L. The reference range was not used to interpret this result as normal/abnormal . RBC (test code = 4.80 See_Comment [Automated 159-8) message] The system which generated this result [...] (test code = 50.7 fL 39.0-49.9 H 99341-6) RDW-CV (test code = 15.2 % 12.0-15.5 788-0) PLT (test code = 253 See_Comment [Automated 777-3) message] The system which generated this result transmit aleksandra reference range : 166 - 358 10*3/ ?L. The reference range was not u sed to interpret th is result as normal/abnormal . MPV (test code = 9.4 fL 9.5-12.9 L 67658-3) NRBC/100 WBC (test 0.0 See_Comment [Automat ed code = 8813752031) message] The system which generated this result transmit aleksandra reference range : 0.0 - 10.0 /100 WBCs. The reference range was not used to interpret this result as normal/abnormal . NRBC x10^3 (test code See_Comment [Auto mated = 2346845827) message] The system which generated this result transmit aleksandra reference range : 10*3/?L. The reference range was not used to interpret this result as normal/abnormal . GRAN MAT (NEUT) % 84.0 % (test code = 770-8) IMM GRAN % (test code 0.50 % = 6642274793) LYMPH % (test code = 6.9 % 736-9) MONO % (test code = 8.1 % 5905-5) EOS % (test code = 0.2 % 713-8) BASO % (test code = 0.3 % 706-2) GRAN MAT x10^3(ANC) 11.37 10*3/uL 1.88-7.09 H (test code = 5914086489) IMM GRAN x10^3 (test 0.07 10*3/uL 0.00-0.06 H code = 6580725062) LYMPH x10^3 (test code 0.94 10*3/uL 1.32-3.29 L = 731-0) MONO x10^3 (test code 1.10 10*3/uL 0.33-0.92 H = 742-7) EOS x10^3 (test code = 0.03 10*3/uL 0.03-0.39 711-2) BASO x10^3 (test code 0.04 10*3/uL 0.01-0.07 = 704-7) Lab Interpretation Abnormal (test code = 73900-7) [facility] W/O [id number] 11:16:00 Test Item Value Reference Range Interpretation [...] = 0.00 K/mm3 0.0-0.1 N NRBC#) WBC [id number] 11:16:00 Test Item Value Reference Range Interpretation [...] = NORMAL NORMAL PLTMORPH) - XR CHEST [id number] 08:27:00 Patient Name: AMANDA CANNON Unit No: [id number] EXAMS: CPT CODE: [id number] XR CHEST 1V 19621 EXAMINATION: - XR CHEST 1V. LOCATION: B2. [...] the appearance of the chest. Electronically Signedby Pushap Wagoner MD on 12/19/2018 at 0827 Reported and signed by: Pushpa Wagoner MD CC: Alen Hanson MD Technologist: RT Luc(R) Transcrpt Date/Tm/Trnsp: 12/19/2018 (08) t.SDR.PR7 Orig Print D/T: S: 12/19/2018 (30) [facility] NAME: AMANDA CANNON [id number] PHYS: [place] [address] : 1955 AGE: 63 SEX: F LOC: Z.SI04 A PHONE #: [phone] EXAM DATE: 12/19/2018 STATUS: ADM IN FAX #: [phone] RADIOLOGY NO: PAGE 1 Signed ReportBASIC METABOLIC [id number] 06:07:00 Test Item Value Reference Range Interpretation [...] code = 9.2 MG/DL 8.4-10.2 N CA) [id number] 06:07:00 Test Item Value Reference Range Interpretation Comments MAGNESIUM (test code = MAG) 2.0 MG/DL 1.6-2.3 N CBC W/O [id number] 05:55:00 Test Item Value Reference Range Interpretation [...] = 0.00 K/mm3 0.0-0.1 N NRBC#) WBC [id number] 05:55:00 Test Item Value Reference Range Interpretation Comments RBC MORPHOLOGY REQUIRED (test code = RBCM) TOTAL CELLS COUNTED (test code = TCC) #CELLS SEGMENTED NEUTROPHILS (test code = % 36.2-73.8 SEG) LYMPHOCYTE (test code = LYMPH) % 12.9-45.1 MONOCYTE (test code = MON) % 0-11 PLATELET ESTIMATE (test code = ADEQUATE PLTEST) PLATELET MORPHOLOGY (test code = NORMAL PLTMORPH) CBC W/AUTO [id number] 05:55:00 Test Item Value Reference Range Interpretation [...] = 0.00 K/mm3 0.0-0.1 N NRBC#) WBC [id number] 05:55:00 Test Item Value Reference Range Interpretation Comments RBC MORPHOLOGY REQUIRED (test code = RBCM) TOTAL CELLS COUNTED (test code = TCC) #CELLS SEGMENTED NEUTROPHILS (test code = % 36.2-73.8 SEG) LYMPHOCYTE (test code = LYMPH) % 12.9-45.1 MONOCYTE (test code = MON) % 0-11 PLATELET ESTIMATE (test code = ADEQUATE PLTEST) PLATELET MORPHOLOGY (test code = NORMAL PLTMORPH) - XR CHEST [id number] 13:33:00 Patient Name: AMANDA CANNON Unit No: [id number] EXAMS: CPT CODE: [id number] XR CHEST 1V 15952 Chest Radiograph History: RIGHT CHEST TUBE REMOVAL [...] Alen Hanson MD; Oumou Stanley NP Technologist: Jo-Ann Hall (RT) Transcrpt Date/Tm/Trnsp: 12/18/2018 (4658) t.SDR.PMT Orig Print D/T: S: 12/18/2018 (9884) [facility] NAME: AMANDA CANNON [address] PHYS: DONY. - Jaden,[place] [address] : 1955 AGE: 63 SEX: F LOC: Z.SI04 A PHONE #: [phone] EXAM DATE: 12/18/2018 STATUS: ADM IN FAX #: [phone] RADIOLOGY NO: PAGE 1 Signed ReportCBC W/O [id number] 09:20:00 Test Item Value Reference Range Interpretation [...] = 0.00 K/mm3 0.0-0.1 N NRBC#) WBC [id number] 09:20:00 Test Item Value Reference Range Interpretation [...] = NORMAL NORMAL PLTMORPH) - XR CHEST [id number] 08:19:00 Patient Name: AMANDA CANNON Unit No: [id number] EXAMS: CPT CODE: [id number] XR CHEST 1V 03796 EXAMINATION: - XR CHEST 1V. LOCATION: B2. [...] MD Technologist: Maryjane Giles, RT(R) Transcrpt Date/Tm/Trnsp: 12/18/2018 (818) JuanPR7 Orig Print D/T: S: 12/18/2018 (821) [facility] NAME: AMANDA CANNON [address] PHYS: [place] [address] : 1955 AGE: 63 SEX: F LOC: Z.SI04 A PHONE #: [phone] EXAM DATE: 12/18/2018 STATUS: ADM IN FAX #: [phone] RADIOLOGY NO: PAGE 1 Signed ReportBASIC METABOLIC [id number] 05:44:00 Test Item Value Reference Range Interpretation [...] code = 8.8 MG/DL 8.4-10.2 N CA) [id number] 05:44:00 Test Item Value Reference Range Interpretation Comments MAGNESIUM (test code = MAG) 1.9 MG/DL 1.6-2.3 N CBC W/O [id number] 05:30:00 Test Item Value Reference Range Interpretation [...] = 0.00 K/mm3 0.0-0.1 N NRBC#) WBC [id number] 05:30:00 Test Item Value Reference Range Interpretation Comments RBC MORPHOLOGY REQUIRED (test code = RBCM) TOTAL CELLS COUNTED (test code = TCC) #CELLS SEGMENTED NEUTROPHILS (test code = % 36.2-73.8 SEG) LYMPHOCYTE (test code = LYMPH) % 12.9-45.1 MONOCYTE (test code = MON) % 0-11 PLATELET ESTIMATE (test code = ADEQUATE PLTEST) PLATELET MORPHOLOGY (test code = NORMAL PLTMORPH) CBC W/AUTO [id number] 05:30:00 Test Item Value Reference Range Interpretation [...] = 0.00 K/mm3 0.0-0.1 N NRBC#) WBC [id number] 05:30:00 Test Item Value Reference Range Interpretation Comments RBC MORPHOLOGY REQUIRED (test code = RBCM) TOTAL CELLS COUNTED (test code = TCC) #CELLS SEGMENTED NEUTROPHILS (test code = % 36.2-73.8 SEG) LYMPHOCYTE (test code = LYMPH) % 12.9-45.1 MONOCYTE (test code = MON) % 0-11 PLATELET ESTIMATE (test code = ADEQUATE PLTEST) PLATELET MORPHOLOGY (test code = NORMAL PLTMORPH) CBC W/O [id number] 09:18:00 Test Item Value Reference Range Interpretation [...] = 0.00 K/mm3 0.0-0.1 N NRBC#) WBC [id number] 09:18:00 Test Item Value Reference Range Interpretation [...] = NORMAL NORMAL PLTMORPH) - XR CHEST [id number] 08:48:00 Patient Name: AMANDA CANNON Unit No: [id number] EXAMS: CPT CODE: [id number] XR CHEST 1V 09713 REASON FOR EXAM: Chest tube, lung lesion, [...] Hanson MD Technologist: RT Luc(R) Transcrpt Date/Tm/Trnsp: 12/17/2018 (0848) [email or web address] Orig Print D/T: S: 12/17/2018 (0851) [facility] NAME: AMANDA CANNON [address] PHYS: [place] [address] : 1955 AGE: 63 SEX: F LOC: TAWANNA Nuñez PHONE #: [phone] EXAM DATE: 12/17/2018 STATUS: ADM IN FAX #: [phone] RADIOLOGY NO: PAGE 1 Signed ReportBASIC METABOLIC [id number] 05:48:00 Test Item Value Reference Range Interpretation [...] code = 8.6 MG/DL 8.4-10.2 N CA) [id number] 05:48:00 Test Item Value Reference Range Interpretation Comments MAGNESIUM (test code = MAG) 2.0 MG/DL 1.6-2.3 N PROTHROMBIN [id number] 05:37:00 Test Item Value Reference Range Interpretation [...] myocar dial infarction. 2.0 - 3.0 3. 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 3.0 - 4.5 CBC W/O [id number] 05:18:00 Test Item Value Reference Range Interpretation [...] = 0.00 K/mm3 0.0-0.1 N NRBC#) WBC [id number] 05:18:00 Test Item Value Reference Range Interpretation Comments RBC MORPHOLOGY REQUIRED (test code = RBCM) TOTAL CELLS COUNTED (test code = TCC) #CELLS SEGMENTED NEUTROPHILS (test code = % 36.2-73.8 SEG) LYMPHOCYTE (test code = LYMPH) % 12.9-45.1 MONOCYTE (test code = MON) % 0-11 PLATELET ESTIMATE (test code = ADEQUATE PLTEST) PLATELET MORPHOLOGY (test code = NORMAL PLTMORPH) CBC W/AUTO [id number] 05:18:00 Test Item Value Reference Range Interpretation [...] = 0.00 K/mm3 0.0-0.1 N NRBC#) WBC [id number] 05:18:00 Test Item Value Reference Range Interpretation Comments RBC MORPHOLOGY REQUIRED (test code = RBCM) TOTAL CELLS COUNTED (test code = TCC) #CELLS SEGMENTED NEUTROPHILS (test code = % 36.2-73.8 SEG) LYMPHOCYTE (test code = LYMPH) % 12.9-45.1 MONOCYTE (test code = MON) % 0-11 PLATELET ESTIMATE (test code = ADEQUATE PLTEST) PLATELET MORPHOLOGY (test code = NORMAL PLTMORPH) - XR CHEST [id number] 07:05:00 Patient Name: AMANDA CANNON Unit No: [id number] EXAMS: CPT CODE: [id number] XR CHEST 1V 14487 Single View Chest. Location: B2 Clinical Indication: 63-year-old with chest tube and subcutaneous emphysema Comparison: December 15, 2018 Findings: An AP view of the chest was obtained. There is postoperative change of the right upper lung. A chest tube is present. The right hemidiaphragm is elevated.There is diffuse chest wall subcutaneous emphysema. This obscures evaluation of the lung parenchyma.Heart size is normal. No acute osseous abnormality. Impression: No interval change. at 0705 Reported and signed by: Chris Simmons M.D. CC: Alen Hanson MD Technologist: Jericho Bates RT(R) Transcrpt Date/Tm/Trnsp: 12/16/2018 (704) JuanRB24 Orig Print D/T: S: 12/16/2018 (707) [facility] NAME: AMANDA CANNON [address] PHYS: [place] [address] : 1955 AGE: 63 SEX: FACCT NO: [id number] LOC: TAWANNA Nuñez PHONE #: [phone] EXAM DATE: 12/16/2018 STATUS: ADM IN FAX #: [phone] RADIOLOGY NO: PAGE 1 Signed ReportBASIC METABOLIC [id number] 06:21:00 Test Item Value Reference Range Interpretation [...] code = 9.0 MG/DL 8.4-10.2 N CA) [id number] 06:21:00 Test Item Value Reference Range Interpretation Comments MAGNESIUM (test code = MAG) 2.0 MG/DL 1.6-2.3 N CBC W/AUTO [id number] 05:52:00 Test Item Value Reference Range Interpretation [...] K/mm3 0.0-0.1 N NRBC#) - XR CHEST [id number] 05:42:00 Patient Name: AMANDA CANNON Unit No: [id number] EXAMS: CPT CODE: [id number] XR CHEST 1V 65271 Location: U19. CHEST, FRONTAL VIEW HISTORY: SUBQ [...] and signed by: Obed Villasenor MD CC: Radha Hanson MD Technologist: Jericho Bates, RT(R) Transcrpt Date/Tm/Trnsp: 12/15/2018 (0542) [email or web address] Orig Print D/T: S: 12/15/2018 (0545) [facility] NAME: AMANDA CANNON [id number]: [place] [address] : 1955 AGE: 63 SEX: F LOC: Z.SI04 A PHONE #: [phone] EXAM DATE: 12/15/2018 STATUS: ADM IN FAX #: [phone] RADIOLOGY NO: PAGE 1 Signed Report- XR CHEST [id number] 08:24:00 Patient Name: AMANDA CANNON Unit No: [id number] EXAMS: CPT CODE: [id number] XR CHEST 1V 38860 REASON FOR EXAM: Chest tube, thoracotomy.. COMPARISON: [...] Maryjane Giles, RT(R) Transcrpt Date/Tm/Trnsp: 12/14/2018 (0824) JosephM Orig Print D/T: S: 12/14/2018 (0827) [facility] NAME: AMANDA CANNON [id number] PHYS: [place] [address] : 1955 AGE: 63 SEX: F LOC: Z.SI04 A PHONE #: [phone] EXAM DATE: 12/14/2018 STATUS: ADM IN FAX #: [phone] RADIOLOGY NO: PAGE 1Signed ReportBASIC METABOLIC [id number] 07:39:00 Test Item Value Reference Range Interpretation [...] code = 8.6 MG/DL 8.4-10.2 N CA) [id number] 07:39:00 Test Item Value Reference Range Interpretation Comments MAGNESIUM (test code = MAG) 2.0 MG/DL 1.6-2.3 N CBC W/AUTO [id number] 07:24:00 Test Item Value Reference Range Interpretation [...] code = 0.00 K/mm3 0.0-0.1 N NRBC#) [id number] 11:49:00 Test Item Value Reference Range Interpretation Comments POTASSIUM (test code = K) 3.7 MMOL/L 3.5-5.1 N - XR CHEST [id number] 07:42:00 Patient Name: AMANDA CANNON Unit No: [id number] EXAMS: CPT CODE: [id number] XR CHEST 1V 58556 EXAMINATION: - XR CHEST 1V. LOCATION: B2. HISTORY: F/U. COMPARISON: Radiograph dated 12/12/2018. TE CHNIQUE: Single AP view of the [...] signed by: Pushpa Wagoner MD CC: Alen Calderon MD Technologist: RT Luc(R) Transcrpt Date/Tm/Trnsp: 12/13/2018 (0742) [email or web address] Orig Print D/T: S: 12/13/2018 (0745) [facility] NAME: AMANDA CANNON [id number] PHYS: [place] [address] : 1955 AGE: 63 SEX: F LOC: Z.SI04 A PHONE #: [phone] EXAM DATE: 12/13/2018 STATUS: ADM IN FAX #: [phone] RADIOLOGY NO: PAGE 1 Signed ReportTB TEST [id number] 07:32:00 Test Item Value Reference Range Interpretation Comments TB TEST IGRA (test code = TBTEST) Negative Negative BASIC METABOLIC [id number] 05:53:00 Test Item Value Reference Range Interpretation [...] code = 8.7 MG/DL 8.4-10.2 N CA) [id number] 05:53:00 Test Item Value Reference Range Interpretation Comments MAGNESIUM (test code = MAG) 1.8 MG/DL 1.6-2.3 N CBC W/AUTO [id number] 05:35:00 Test Item Value Reference Range Interpretation [...] K/mm3 0.0-0.1 N NRBC#) - XR CHEST [id number] 08:38:00 Patient Name: AMANDA CANNON Unit No: [id number] EXAMS: CPT CODE: [id number] XR CHEST 1V 50210 REASON FOR EXAM: Lung tumor resection. COMPARISON: December 11, 2018. Chest, portable single frontal view. The right-sided chest tube is in good position, stable. No obvious pneumothorax. Right jugular line intact as well in the superior vena cava. Similar, extensive subcutaneous emphysema limits the study. The lungs are fairly well-inflated and clear. Postop findings in the right lung. Heart sizeis normal. No effusion or pneumothorax can be seen. Osseous structures appear to be intact. IMPRESSION: No identifiable pneumothorax. Slightly limited study. Right chest tube, stable. Similar appearance to subcutaneous emphysema. Location: U19 at 0838 Reported and signed by: Chris Ortiz MD CC: Alen Hanson MD Technologist : RT Luc(R) Transcrpt Date/Tm/Trnsp: 12/12/2018 (837) Ayleen Orig Print D/T: S: 12/12/2018 (08) [facility] NAME: AMANDA CANNON [id number] PHYS: [place] [address] : 1955 AGE: 63 SEX: F LOC: ZCourtneySI04 [place] PHONE #: [phone] EXAM DATE: 12/12/2018 STATUS: ADM IN FAX #: [phone] RADIOLOGY NO: PAGE 1 Signed ReportAB [id number] 07:36:00 Test Item Value Reference Range Interpretation Comments AB COCCIDIOIDES (test code = COCCIAB) <0.150 < 1:2 BASIC METABOLIC [id number] 05:56:00 Test Item Value Reference Range Interpretation [...] code = 8.7 MG/DL 8.4-10.2 N CA) [id number] 05:56:00 Test Item Value Reference Range Interpretation Comments MAGNESIUM (test code = MAG) 1.9 MG/DL 1.6-2.3 N CBC W/AUTO [id number] 05:42:00 Test Item Value Reference Range Interpretation [...] 0.00 K/mm3 0.0-0.1 N NRBC#) AG HISTOPLASMA [id number] 07:26:00 Test Item Value Reference Range Interpretation Comments AG HISTOPLASMA UA (test code = <0.5 EIA unit <0.5 ng/mL HISUAAG) - XR CHEST [id number] 06:56:00 Patient Name: AMANDA CANNON Unit No: [id number] EXAMS: CPT CODE: [id number] XR CHEST 1V 68481 Location: U19. CHEST, FRONTAL VIEW HISTORY: S/P [...] Maryjane Giles RT(R) Transcrpt Date/Tm/Trnsp: 12/11/2018 (0656) t.[email or web address].[email or web address] Orig Print D/T: S: 12/11/2018 (0700) [facility] NAME: AMANDA CANNON [address] PHYS: [place] [address] : 1955 AGE: 63 SEX: F LOC: Z.SI04 A PHONE #: [phone] EXAM DATE: 12/11/2018 STATUS: ADM IN FAX #: [phone] RADIOLOGY NO: PAGE 1 Signed Report BASIC METABOLIC [id number] 05:46:00 Test Item Value Reference Range Interpretation [...] code = 8.7 MG/DL 8.4-10.2 N CA) [id number] 05:46:00 Test Item Value Reference Range Interpretation Comments MAGNESIUM (test code = MAG) 1.9 MG/DL 1.6-2.3 N CBC W/AUTO [id number] 05:28:00 Test Item Value Reference Range Interpretation [...] 0.00 K/mm3 0.0-0.1 N NRBC#) BASIC METABOLIC [id number] 05:54:00 Test Item Value Reference Range Interpretation [...] 8.7 MG/DL 8.4-10.2 N CA) CBC W/AUTO [id number] 05:35:00 Test Item Value Reference Range Interpretation [...] 0.00 K/mm3 0.0-0.1 N NRBC#) BASIC METABOLIC [id number] 06:18:00 Test Item Value Reference Range Interpretation [...] 8.5 MG/DL 8.4-10.2 N CA) CBC W/AUTO [id number] 05:48:00 Test Item Value Reference Range Interpretation [...] K/mm3 0.0-0.1 N NRBC#) - XR CHEST [id number] 11:16:00 Patient Name: AMANDA CANNON Unit No: [id number] EXAMS: CPT CODE: [id number] XR CHEST 1V 49218 Site ID: [id number] HISTORY: Subcutaneous emphysema, right [...] Alen Hanson MD; Chris Rivera MD Technologist: RT Anastasiya(R) Transcrpt Date/Tm/Trnsp: 12/08/2018 (1116) [email or web address] Orig Print D/T: S: 12/08/2018 (1119) [facility] NAME: AMANDA CANNON [address] PHYS: [place] [address] : 1955 AGE: 63 SEX: F LOC: Z.SI04 A PHONE #: [phone] EXAM DATE: 12/08/2018 STATUS: ADM IN FAX #: [phone] RADIOLOGY NO: PAGE 1 Signed ReportMAGNESIUM 2018-12-08 08:28:00 Test Item Value Reference Range Interpretation Comments MAGNESIUM (test code = MAG) 2.0 MG/DL 1.6-2.3 N - XR CHEST [id number] 07:15:00 Patient Name: AMANDA CANNON Unit No: [id number] EXAMS: CPT CODE: [id number] XR CHEST 1V 49810 Location of dictation: B2 Portable chest one [...] Hanson MD; Jose Luis De La Vega MDTechnologist: Pavel Ma, (RT) (R) Transcrpt Date/Tm/Trnsp: 12/08/2018 (07) t.SDR.PXC Orig Print D/T: S: 12/08/2018 (0718) [facility] NAME: AMANDA CANNON [address] PHYS: [place] [address] : 1955 AGE: 63 SEX: F LOC: Z.SI04 A PHONE #: [phone] EXAM DATE: 12/08/2018 STATUS: ADM IN FAX #: [phone] RADIOLOGY NO: PAGE 1 Signed Report- XR CHEST [id number] 07:08:00 Patient Name: AMANDA CANNON Unit No: [id number] EXAMS: CPT CODE: [id number] XR CHEST 1V 30129 Location of dictation: B2 Portable chest one view. HISTORY: F/U SUBCUTANEOUS EMPHYSEMA COMMENT: Compared to one day prior. Right IJ central line and right chest tube remain in place. The appearanceof the heart and lungs is not appreciably changed. No definite pneumothorax but evaluation obscured by persistent but slightly improved subcutaneous emphysema. IMPRESSION: Stable appearance of the chest. at 0708 Reported and signed by: Panchito Miller CC: Alen Hanson MD; Oumou Stanley [employer]IAN [employer] Technologist: Jericho Bates, RT(R) Transcrpt Date/Tm/Trnsp: 12/08/2018 (0708) [facility] Orig Print D/T: S: 12/08/2018 (0711) [facility] NAME: AMANDA CANNON [id number] PHYS: DONY.Giovanna - [place] [address] : 1955 AGE: 63 SEX: F LOC: Z.SI04 A PHONE #: [phone] EXAM DATE: 12/08/2018 STATUS: ADM IN FAX #: [phone] RADIOLOGY NO: PAGE 1 Signed ReportPO ARTERIAL BLOOD [id number] 07:01:00 Test Item Value Reference Range Interpretation Comments POC ARTERIAL BLOOD GAS PH 7.382 7.35-7.45 N (test code = POCPHA) POC ARTERIAL BLOOD GAS PCO2 51.4 mmHg 35.0-45.0 HH (test code = QLVWAF0W) POC ARTERIAL BLOOD GAS PO2 82 75.0-100.0 N (test code = JXZEF3F) POC HCO3 ARTERIAL (test code 30.5 MMOL/L 20.0-26.0 HH = GKMKLA4S) POC BASE EXCESS (test code = 5.0 MMOL/L -3.0-3.0 H POCBEA) POC O2 SATURATION (test code 96 % 92.0-98.5 N = POCO2S) FIO2 (test code = FIO2A) 40 % 21-100 N ABG DELIVERY (test code = N/C MARCUS) ABG SITE (test code = SITEA) R Brachial ALLENS TEST (test code = N/A CHECK MD West/SNEHA~ MARIXA) PROTHROMBIN [id number] 06:11:00 Test Item Value Reference Range Interpretation [...] myocar dial infarction. 2.0 - 3.0 3. 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 3.0 - 4.5 PTT [id number] 06:11:00 Test Item Value Reference Range Interpretation Comments PTT ACTIVATED (test code = APTT) 23.2 SECONDS 22.0-33.0 N BASIC METABOLIC [id number] 06:09:00 Test Item Value Reference Range Interpretation [...] 9.0 MG/DL 8.4-10.2 N CA) CBC W/AUTO [id number] 05:57:00 Test Item Value Reference Range Interpretation [...] 0.00 K/mm3 0.0-0.1 N NRBC#) BASIC METABOLIC [id number] 12:08:00 Test Item Value Reference Range Interpretation [...] = 8.8 MG/DL 8.4-10.2 N CA) PROTHROMBIN [id number] 12:01:00 Test Item Value Reference Range Interpretation [...] dial infarction. 2. 0 - 3.0 3. 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 3.0 - 4.5 PTT [id number] 12:01:00 Test Item Value Reference Range Interpretation Comments PTT ACTIVATED (test code = APTT) 24.1 SECONDS 21.0-33.0 N CBC W/AUTO [id number] 11:49:00 Test Item Value Reference Range Interpretation [...] K/mm3 0.0-0.1 N NRBC#) - XR CHEST [id number] 08:32:00 Patient Name: AMANDA CANNON Unit No: [id number] EXAMS: CPT CODE: [id number] XR CHEST 1V 11667 Location of dictation: B2 Portable chest one [...] changes in the chest. at 0832 Reported andsigned by: Neelima Ghosh M.D. CC: Alen Hanson MD Technologist: Maryjane Giles, RT(R) Transcrpt Date/Tm/Trnsp: 12/07/2018 (0832) t.SDR.PXC Orig Print D/T: S: 12/07/2018 (0835) [facility] NAME: AMANDA CANNON [address] PHYS: [place] [address] : 1955 AGE: 63 SEX: F LOC: Z.SI04 A PHONE #: [phone] EXAM DATE: 12/07/2018 STATUS: ADM IN FAX #: [phone] RADIOLOGY NO: PAGE 1 Signed Report - XR CHEST [id number] 07:52:00 Patient Name: AMANDA CANNON Unit No: [id number] EXAMS: CPT CODE: [id number] XR CHEST 1V 65495 Location of dictation: B2 Portable chest one view. HISTORY: S/P R.A. RIGHT LUNG MASS RESECTION C OMMENT: Compared to 2 days prior. The heart [...] at 0752 Reported and signed by: Neelima Ghohs M.D. CC: Alen Hanson MD Technologist: Maryjane Giles RT(R) Transcrpt Date/Tm/Trnsp: 12/06/2018 (075) JuanPXC Orig Print D/T: S: 12/06/2018 (0755) [facility] NAME: AMANDA CANNON [address] PHYS: [place] [address] : 1955 AGE:63 SEX: F LOC: Z.SI04 A PHONE #: [phone] EXAM DATE: 12/06/2018 STATUS: ADM IN FAX #: [phone] RADIOLOGY NO: PAGE 1 Signed ReportBASIC METABOLIC [id number] 05:28:00 Test Item Value Reference Range Interpretation [...] code = 9.1 MG/DL 8.4-10.2 N CA) [id number] 05:28:00 Test Item Value Reference Range Interpretation Comments MAGNESIUM (test code = MAG) 2.0 MG/DL 1.6-2.3 N CBC W/AUTO [id number] 05:05:00 Test Item Value Reference Range Interpretation [...] code = 0.00 K/mm3 0.0-0.1 N NRBC#) [id number] 16:13:00 RUN DATE: 12/05/18 [facility] PAGE 1 RUN TIME: 1614 Specimen Inquiry RUN USER: INTERFACE P ATIENT: AMANDA CANNON LOC: LAURA U #: [id number] AGE/SX: 63/F [facility] DR: Chris Rivera MD : 55 BED: A DIS: STATUS: ADM IN TLOC: SPEC #: [id number] RECD: 11/30/18 STATUS: SOUT REQ #: [id number] PAOLA: 11/30/18 [facility] DR: Chris Rivera MD ENTERED: 11/30/18 SP TYPE: LUNG OTHR DR: Alen Hanson MD ORDERED: SURG PATH LVL 5/2, FS, AFB/2, GMS/2, TOUCH PREP EA A CODES: A34711 P06698 - BRONCHUS OF RIG BIOPSY, NOS T04870 W35308 - BRONCHUS OF RIG INFLAMMATION, N Z22731 M94285 - BRONCHUS OF RIG GRANULOMATOUS I Z26726 V28508 - BRONCHUS OF RIG NECROTIZING PGLU15319 Z52385 - BRONCHUS OF RIG NECROSIS, NOS S51459 G77042 - BRONCHUS OF RIG DYSPLASIA, NOS A95418 - LUNG, NOS DA2301 G82178 - BODY TISSUE, NO EMPHYSEMA, NOS CD8529 C79189 - BODY TISSUE, NO DYSPLASIA,NOS COPIES TO: Alen Hanson MD [address] [place] [address] [address] [place] [address] [email or web address] [address] [facility] [place] [address] PROCEDURES: SURG PATH LVL 5 (11/30/181835) FS (11/30/18) AFB (12/05/18) GMS (12/05/18) TOUCH PREPEA A (12/05/18-1117) TISSUES: A. LUNG, NOS - RUL TISSUE B. LUNG, NOS - RT UPPER LOBE BULLAE CLINICALHISTORY LUNG LESION CPT CODES CPT CODE(S): 38008N4 , 58595 , 88657 , 93605S0 , , , CONTINUED ON NEXT PAGE RUN DATE: 12/05/18 [facility] PAGE 2 RUN TIME: 1614 Specimen Inquiry RUN USER: INTERFACE - SPEC #: [id number] PATIENT: AMANDA CANNON #[id number] (Continued) FINAL DIAGNOSIS A. Lung, right upper [...] 1.3 cm. The nodule is well- circumscribed. Nutrition Technician sections of nodule submitted for frozen section labeled FS1/TP1 and submitted for permanent section as A1 and theremainder of the nodule submitted entirely as A2-A3 [...] (with good controls, blocks A2 and A3) isnegative for acid-fast bacilli. Adjacent lung tissue has emphysematous changes. No dysplasia or malignancy is identified. B. Right upper lobe bullae. Sections show fragments of lung tissue with emphysematous changes. Prominent bullae are seen. There is no evidence of dysplasia or malignancy. /paula------- ----- Signed SIGNATURE ON FILE Chris Frank Landy 12/05/18 1613 END OF REPORT - XR CHEST [id number] 08:14:00 Patient Name: AMANDA CANNON Unit No: [id number] EXAMS: CPT CODE: [id number] XR CHEST 1V 72462 Location of dictation: B2 Portable chest one [...] MD Technologist: Maryjane Giles, RT(R) Transcrpt Date/Tm/Trnsp: 12/05/2018 (0814) JuanPXC Orig Print D/T: S: 12/05/2018 (0817) [facility] NAME: AMANDA CANNON [address] PHYS: [place] [address] : 1955 AGE: 63 SEX: F LOC: Z.SI04 A PHONE #: [phone] EXAM DATE: 12/05/2018 STATUS: ADM IN FAX #: [phone] RADIOLOGY NO: PAGE 1 Signed ReportBASIC METABOLIC [id number] 06:36:00 Test Item Value Reference Range Interpretation [...] code = 9.0 MG/DL 8.4-10.2 N CA) [id number] 06:36:00 Test Item Value Reference Range Interpretation Comments MAGNESIUM (test code = MAG) 1.9 MG/DL 1.6-2.3 N CBC W/AUTO [id number] 06:20:00 Test Item Value Reference Range Interpretation [...] 0.00 K/mm3 0.0-0.1 N NRBC#) BASIC METABOLIC [id number] 21:07:00 Test Item Value Reference Range Interpretation [...] code = 9.0 MG/DL 8.4-10.2 N CA) [id number] 21:07:00 Test Item Value Reference Range Interpretation Comments MAGNESIUM (test code = MAG) 1.8 MG/DL 1.6-2.3 N ARTERIAL BLOOD [id number] 20:51:00 Test Item Value Reference Range Interpretation [...] code = 36 % COHBGFFIO2) GLUCOSE BEDSIDE [id number] 14:59:00 Test Item Value Reference Range Interpretation Comments GLUCOSE BEDSIDE TEST NOT PERFORMED 60-99 Previo usly reported TESTING (test MG/DL result: 55 code = GLUBED) MG/DLEdited b y: Z.LAB.TQL on 12/04/18:837728 1457: GLU BE D previously repo rted as: 55 L MG/DL GLUCOSE BEDSIDE [id number] 13:35:00 Test Item Value Reference Range Interpretation Comments GLUCOSE BEDSIDE TESTING (test code = 55 MG/DL 60-99 L GLUBED) CALCIUM [id number] 12:44:00 Test Item Value Reference Range Interpretation Comments CALCIUM IONIZED (test code = BABAK) 1.11 MMOL/L 1.12-1.30 L PROTHROMBIN [id number] 10:01:00 Test Item Value Reference Range Interpretation [...] myocar dial infarction. 2.0 - 3.0 3. 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 3.0 - 4.5 Comments to Front Desk Host: nonePTT [id number] 10:01:00 Test Item Value Reference Range Interpretation Comments PTT ACTIVATED (test code = APTT) 24.2 SECONDS 22.0-33.0 N Comments to Front Desk Host: none- XR CHEST [id number] 09:06:00 Patient Name: AMANDA CANNON Unit No: [id number] EXAMS: CPT CODE: [id number] XR CHEST 1V 05554 Location of dictation: B2 Portable chest one [...] Reported and signed by: Panchito Miller CC: Alen Hanson MD; Oumou Stanley NP Technologist: Jo-Ann Hall (RT) Transcrpt Date/Tm/Trnsp: 12/04/2018 (0906) [email or web address] Orig Print D/T: S: 12/04/2018 (0910) [facility] NAME: AMANDA CANNON [address] PHYS: DONY.[place] [address] : 1955 AGE: 63 SEX: F LOC: Z.SI04 A PHONE #: [phone] EXAM DATE: 12/04/2018STATUS: ADM IN FAX #: [phone] RADIOLOGY NO: PAGE 1 Signed ReportBASIC METABOLIC [id number] 07:35:00 Test Item Value Reference Range Interpretation [...] code = 9.1 MG/DL 8.4-10.2 N CA) [id number] 07:35:00 Test Item Value Reference Range Interpretation Comments PHOSPHOROUS (test code = PHOS) 3.7 MG/DL 2.5-4.5 N [id number] 07:35:00 Test Item Value Reference Range Interpretation Comments MAGNESIUM (test code = MAG) 1.9 MG/DL 1.6-2.3 N CBC W/AUTO [id number] 07:25:00 Test Item Value Reference Range Interpretation [...] K/mm3 0.0-0.1 N NRBC#) - XR CHEST [id number] 18:47:00 Patient Name: AMANDA CANNON Unit No: [id number] EXAMS: CPT CODE: [id number] XR CHEST 1V 61387 EXAM: Portable chest one view. Location code:J9 [...] Technologist: Soumya Chapa RT(R) Transcrpt Date/Tm/Trnsp: 12/03/2018 (184) JuanRR16 Orig Print D/T: S: 12/03/2018 (1849) [facility] NAME: AMANDA CANNON [address] PHYS: DERRICK - [place] [address] : 1955 AGE: 63 SEX: F LOC: Z.355 A PHONE #: [phone] EXAM DATE: 12/03/2018 STATUS: ADM IN FAX #: [phone] RADIOLOGY NO: PAGE 1 Signed Report- XR CHEST [id number] 07:46:00 Patient Name: AMANDA CANNON Unit No: [id number] EXAMS: CPT CODE: [id number] XR CHEST 1V 88534 Location of dictation: B2 Portable chest one [...] More pronounced perihilar infiltrates with fluid and/or thickenin g of the right interlobar fissure. 2. Status post partial right lobectomy. No pneumothorax with right chest tube in place. at 0746 Reportedand signed by: Neelima Ghosh M.D. CC: Alen Hanson MD Technologist: RT Luc(R) Transcrpt Date/Tm/Trnsp: 12/03/2018 (0746) tCHARISSEPXC Orig Print D/T: S: 12/03/2018 (0749) [facility] NAME: AMANDA CANNON [address] PHYS: [place] [address] : 1955 AGE: 63 SEX: F LOC: Z.SI04 A PHONE #: [phone] EXAM DATE: 12/03/2018 STATUS: ADM IN FAX #: [phone] RADIOLOGY NO: PAGE 1 Signed ReportBASIC METABOLIC [id number] 04:54:00 Test Item Value Reference Range Interpretation [...] code = 8.8 MG/DL 8.4-10.2 N CA) [id number] 04:54:00 Test Item Value Reference Range Interpretation Comments MAGNESIUM (test code = MAG) 2.0 MG/DL 1.6-2.3 N CBC W/AUTO [id number] 04:29:00 Test Item Value Reference Range Interpretation [...] K/mm3 0.0-0.1 N NRBC#) - XR CHEST [id number] 06:22:00 Patient Name: MAANDA CANNON Unit No: [id number] EXAMS: CPT CODE: [id number] XR CHEST 1V 09024 AP VIEW OF THE CHEST LOCATION: R16 [...] Jericho Bates, RT(R) Transcrpt Date/Tm/Trnsp: 12/02/2018 (0622) tJUDAH.JSL OrigPrint D/T: S: 12/02/2018 (0644) [facility] NAME: AMANDA CANNON [address] PHYS: [place] [address] : 1955 AGE: 63 SEX: F LOC: Esdras Nuñez PHONE #: [phone] EXAM DATE: 12/02/2018 STATUS: ADM IN FAX #: [phone] RADIOLOGY NO: PAGE 1 Signed ReportBASIC METABOLIC [id number] 05:59:00 Test Item Value Reference Range Interpretation [...] code = 8.4 MG/DL 8.4-10.2 N CA) [id number] 05:59:00 Test Item Value Reference Range Interpretation Comments MAGNESIUM (test code = MAG) 2.1 MG/DL 1.6-2.3 N CBC W/AUTO [id number] 05:53:00 Test Item Value Reference Range Interpretation [...] code = 0.00 K/mm3 0.0-0.1 N NRBC#) [id number] 21:37:00 Test Item Value Reference Range Interpretation Comments POTASSIUM (test code = K) 3.2 MMOL/L 3.5-5.1 L Is this a LINE draw? YBASIC METABOLIC [id number] 07:40:00 Test Item Value Reference Range Interpretation [...] code = 8.4 MG/DL 8.4-10.2 N CA) [id number] 07:40:00 Test Item Value Reference Range Interpretation Comments MAGNESIUM (test code = MAG) 1.9 MG/DL 1.6-2.3 N CBC W/AUTO [id number] 07:27:00 Test Item Value Reference Range Interpretation [...] K/mm3 0.0-0.1 N NRBC#) - XR CHEST [id number] 06:27:00 Patient Name: AMANDA CANNON Unit No: [id number] EXAMS: CPT CODE: [id number] XR CHEST 1V 93080 Exam: Chest portable erect Location: F6 History: [...] Jericho Bates, RT(R) Transcrpt Date/Tm/Trnsp: 12/01/2018 (626) [email or web address].FC Orig Print D/T: S: 12/01/2018 (629) [facility] NAME: AMANDA CANNON [address] PHYS: [place] [address] : 1955 AGE: 63 SEX: F LOC: ZAANIS Nuñez PHONE #: [phone] EXAM DATE: 12/01/2018 STATUS: ADM IN FAX #: [phone] RADIOLOGY NO: PAGE1 Signed ReportBASIC METABOLIC [id number] 20:46:00 Test Item Value Reference Range Interpretation [...] code = 8.8 MG/DL 8.4-10.2 N CA) [id number] 20:46:00 Test Item Value Reference Range Interpretation Comments MAGNESIUM (test code = MAG) 1.9 MG/DL 1.6-2.3 N BASIC METABOLIC [id number] 20:42:00 Test Item Value Reference Range Interpretation [...] code = 8.8 MG/DL 8.4-10.2 N CA) [id number] 20:42:00 Test Item Value Reference Range Interpretation Comments MAGNESIUM (test code = MAG) 1.9 MG/DL 1.6-2.3 N CBC W/AUTO [id number] 20:04:00 Test Item Value Reference Range Interpretation [...] 0.00 K/mm3 0.0-0.1 N NRBC#) ARTERIAL BLOOD [id number] 19:53:00 Test Item Value Reference Range Interpretation [...] = 100 % COHBGFFIO2) - XR CHEST [id number] 19:38:00 Patient Name: AMANDA CANNON Unit No: [id number] EXAMS: CPT CODE: [id number] XR CHEST 1V 94433 EXAM: CHEST ONE VIEW INDICATION: Post Op [...] Hall (RT) Transcrpt Date/Tm/Trnsp: 11/30/2018 (1937) JuanMD16 OrigPrint D/T: S: 11/30/2018 (1940) [facility] NAME: CANNONAMANDATEN DUEÑAS [address] PHYS: [place] [address] : 1955 AGE: 63 SEX: F LOC: Z.D BARTH PHONE #: [phone] EXAM DATE: 11/30/2018 [place]US[place] [facility] [place]: [phone] RADIOLOGY NO: PAGE 1 Signed ReportHIV 12 AB DIFFERENTIATION 2018-11-28 17:53:00 Test Item Value Reference Range Interpretation Comments AB HIV 1 2 NON REACTIVE NON-REAC NOTE: A NONREAC TIVE RESULT (test code = INDICATES THAT HIV-1 AND CMY86AW) HIV-2ANTIBODIES HAVE NOT BEEN FOUND IN T HIS PATIENT SPECIMEN. ANON- REACTIVE RESULT, HOWEVER , DOES NOT PRECLUDE PREVIO USEXPOSURE OR INFECTION WI TH HIV1. AG HIV1 P24 NON REACTIVE NONE REAC (test code = AQB1V33) PROTHROMBIN [id number] 15:49:00 Test Item Value Reference Range Interpretation [...] myocar dial infarction. 2.0 - 3.0 3. 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 3.0 - 4.5 PTT [id number] 15:49:00 Test Item Value Reference Range Interpretation Comments PTT ACTIVATED (test code = APTT) 23.4 SECONDS 22.0-33.0 N - XR CHEST 2 [id number] 15:47:00 Patient Name: AMANDA CANNON Unit No: [id number] EXAMS: CPT CODE: [id number] XR CHEST 2 V 71293 EXAM: CHEST 2 VIEWS INDICATION: PRE-OP COMPARISON: CT dated November 06, 2018 TECHNIQUE: PA and lateral views of the chest. FINDINGS: The heart size is normal. The lungs are clear bilaterally. Thepulmonary vasculature is normal. No pneumothorax or pleural effusion is identified. The osseous structures are normal. IMPRESSION: No acute cardiopulmonary process. LOCATION: B2 at 1547 Reported and signed by: Mahi Campa MD CC: Alen Hanson MD Technologist: [facility] STUDENT ; Christian Villavicencio, RT(R) Transcrpt Date/Tm/Trnsp: 11/28/2018 (1547) 16 Orig Print D/T: S: 11/28/2018 (8180) [facility] NAME: AMANDA CANNON [id number] PHYS: [place] [address] : 1955 AGE: 63 SEX: F LOC: [id number].5MU PHONE #: [phone] EXAM DATE: 11/28/2018 STATUS: PRE IN FAX #: [phone] NO: PAGE 1 Signed ReportBASIC METABOLIC [id number] 15:42:00 Test Item Value Reference Range Interpretation [...] 9.2 MG/DL 8.4-10.2 N CA) CBC W/AUTO [id number] 15:32:00 Test Item Value Reference Range Interpretation [...] N NRBC#) - CTA ABD PEL W [id number] 10:28:00 Patient Name: AMANDA CANNON Unit No: [id number] Report Has Been Amended EXAMS: CPTCODE: [id number] CTA ABD PEL W CONT [id number] Addendum - 11/15/2018 SIGNED 11/15/2018 ADDENDUM: [id number] CT/CTAAPWCONT Addendum: 3-D/MIP reconstructions of the central arteries were created. at 1028 Reported and signed by: Chris Simmons M.D. Transcribed: 11/15/2018 (1023) [email or web address] Report CTA Abdomen and Pelvis with and without c ontrast. Location: B2 Clinical indication: 63-year-old with endoleak [...] been prior stent graft repair of an aorticaneurysm. An aortobiiliac stent graft is present. The [...] diameter up to 1.1 cm, new from priorstudy. Flow is preserved within the common hepatic, splenic, and left gastric arteries. Superior mesenteric artery is patent. Bilateral main renal arteries are patent. The inferior mesenteric artery isoccluded as a result of the abdominal aortic aneurysm. Mild scarring and/or atelectasis of the lung bases. The liver, gallbladder, spleen, adrenal glands, and pancreas are without acute abnormality. 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 There is bilateral renalcortical thinning. Small superficial cysts are present, largest 9 mm on the left. No bowel obstruction. Pelvis: The iliac limbs of the aortoiliac stent graft are patent. [facility] NAME: AMANDA CANNON [id number] PHYS: [place] [address] : 1955 AGE: 63 SEX: F LOC: Z.CTS PHONE #: [phone] EXAM DATE: 11/06/2018 STATUS: DEP CLI FAX #: [phone] RAD #: D/C DT PAGE 1 Signed Report (CONTINUED) Patient Name: AMANDA CANNON Unit No: [id number] Report Has Been Amended EXAMS: CPT CODE: [id number] CTA ABD PEL W CONT 63997 (Continued) Bilateral external iliac arteries are patent. [...] Chris Simmons M.D. CC: Alen Hanson MD Technologist:Anam Bill, RT(R); Kalen CTDI: DLP: Trnscrpt: 11/06/2018 (1346) t.[email or web address].[email or web address] [facility] NAME: AMANDA CANNON [id number] PHYS: Chris Sky MD [place] [id number] : 1955 AGE: 63 SEX: F LOC: [employer] PHONE #: [phone] EXAM DATE: 11/06/2018 STATUS: DEP CLI FAX #: [phone] RAD #: D/C DT PAGE 2 Signed Report Patient Name: AMANDA CANNON Unit No: [id number] Report Has Been Amended EXAMS: CPT CODE: [id number] CTA ABD PEL W CONT 28635 (Continued) Orig Print D/T: S: 11/06/2018 (1349) [facility] NAME: AMANDA CANNON [id number] PHYS: Chris Sky MD [place] [id number] : 1955 AGE: 63 SEX: F LOC: Malou.CTS PHONE #: [phone] EXAM DATE: 11/06/2018 STATUS: DEP CLI FAX #: [phone] RAD #: D/C DT PAGE 3 Signed ReportBEDSIDE [id number] 14:50:00 Test Item Value Reference Range Interpretation Comments BEDSIDE CREATININE (test code = 0.6 MG/DL 0.6-1.4 N CREATBED) - CT CHEST W/[id number] 14:06:00 Patient Name: AMANDA CANNON Unit No: [id number] EXAMS: CPT CODE: [id number] CT CHEST W/CONTRAST 58516 EXAM: Chest CT with contrast Location: B2 INDICATION: Lung nodule COMPARISON: Chest x-ray on 12/21/2015 TECHNIQUE: Helical CT of the chest was performed following the administration of 100mL Isovue-370 IV contrast. 5 mm axial and coronal and sagittal reformatted images were performed. DISCUSSION: Lungs and airways: A 14 mm rounded right upper lobe nodule is identified. This is visible on the field scout film, but was not evident on the [...] pleural surface. This is visible on the field scout film, and was not present on the prior chest x-ray and November 2015. This is suspicious for malignancy. Further evaluation is recommended with short-term CT chest follow-up in 3 months, PET CT, or tissue sampling. 2. Small hiatal hernia.3. Celiac artery aneurysm and dissection; please refer to the CT abdomen and pelvis performed concurrently. One or more of the following dose reduction techniques were used: Automated exposure control,adjustment of the mA and/or kV according to patient size, and/or utilization of iterative reconstruction technique. [facility] NAME: AMANDA CANNON [id number] PHYS: [place] [address] : 1955 AGE: 63 SEX: F LOC: [employer]land[employer] PHONE #: [phone] EXAM DATE: 11/06/2018 STATUS: REG CLI FAX #: [phone] RAD #: D/C DT PAGE 1 Signed Report (CONTINUED) Patient Name: AMANDA CANNON Unit No: [id number] EXAMS: CPT CODE: [id number] CTCHEST W/CONTRAST 54180 (Continued) DLP: 1708 mGy-cm CTDI: 51 mGy at 1406 Reported and signed by: Jake Menchaca MD CC: Aeln Hanson MD Technologist: Anam Bill, RT(R); Kalen CTDI: DLP: Trnscrpt: 11/06/2018 (1406) t.[email or web address].BC0 [facility] NAME: AMANDA CANNON [id number] PHYS: Chris Sky MD [place] [id number] : 1955 AGE: 63 SEX: F LOC: KAYLYN PHONE #: [phone] EXAM DATE: 11/06/2018 STATUS: REG CLI FAX #: [phone] RAD #: D/C DT PAGE 2 Signed Report Patient Name: AMANDA CANNON Unit No: [id number] EXAMS: CPT CODE: [id number] CT CHEST W/CONTRAST 64088 (Continued) Orig Print D/T: S: 11/06/2018 (1409) [facility] NAME: AMANDA CANNON [address] PHYS: [place] [address] : 1955 AGE: 63 SEX: F LOC: [employer] PHONE #: [phone] EXAM DATE: 11/06/2018 STATUS: REG CLI FAX #: [phone] RAD #: D/C DTPAGE 3 Signed Report- CTA ABD PEL W [id number] 13:46:00 Patient Name: AMANDA CANNON Unit No: [id number] EXAMS: CPT CODE: [id number] CTA ABD PEL W CONT 94141 CTA Abdomen and Pelvis with and without [...] lung bases. The liver, gallbladder, spleen, adrenal gl ands, and pancreas are without acute abnormality. There [...] residual sac measures up to 4.5 cm indiameter. 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 2. 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 3. 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 4. Interval right renal infarct. [facility] [place] NAME: AMANDA CANNON [address] PHYS: Chris Sky MD [place] [id number] : 1955 AGE: 63 SEX: F LOC: Garland[employer] PHONE #: [phone] EXAM DATE: 11/06/2018 STATUS: REG CLI FAX #: [phone] RAD #: D/C DT PAGE 1 Signed Report (CONTINUED) Patient Name: AMANDA CANNON Unit No: [id number] EXAMS: CPT CODE: [id number] CTA ABD PEL W CONT 10428 (Continued) at 1346 Reported and signed by: Chris Simmons M.D. CC: Alen Hanson MD Technologist: Anam Bill, RT(R); Kalen CTDI: DLP: Trnscrpt: 11/06/2018 (1346) t.[email or web address].[email or web address] [place] NAME: AMANDA CANNON [address] PHYS: Chris Sky MD [place], [place] : 1955 AGE: 63 SEX: F LOC: KAYLYN PHONE #: [phone] EXAM DATE: 11/06/2018 STATUS: REG CLI FAX #: [phone] RAD #: D/C DT PAGE 2 Signed Report Patient Name: AMANDA GARCIA Unit No: [id number] EXAMS: CPT CODE: [id number] CTA ABD PEL W CONT 92135 (Continued) Orig Print D/T: S: 11/06/2018 (1349) [facility] NAME: AMANDA CANNON [address] [address]: [place] [address] : 1955 AGE: 63 SEX: F LOC: GarlandCTS PHONE #: [phone] EXAM DATE: 11/06/2018 STATUS: REG CLI FAX #: [phone] RAD #:D/C DT PAGE 3 [facility] W[facility] & AUTO DIFFERENTIAL 2018-09-20 05:53:00 [...] (BEAKER) (test code = 2801) BASIC METABOLIC [id number] 05:36:00 Test Item Value Reference Range Interpretation [...] DIALYSIS PATIEN TS. CT, CTA AAA, W/ RAVINDER.EXT.[id number] 18:40:00Addendum BeginsREPORT STATUS:A Addendum: I agree with the previously described non vascular findings. Additionally there is mild skin thickening in the lower anterior abdominal wall and subcutaneous edema which may be secondary to cellulitis. Signed: Dain Mahmood MDReport Verified Date/Time: 09/17/2018 18:40:47 Reading Location: [place] [address] Angio Body Reading RoomAddendum EndsFINAL REPORT CT [...] and during intravenous contrast administration using a [employer] multidetector CT scanner. Images were obtained before [...] dictated regarding the non-vascular findings by the Business Department Chair Radiologist. Signed: Morteza Johnson MDRepsaint [facility] Verified Date/Time: 09/17/2018 14:46:36 Reading Location: [place] [address] Cardiology MRI BASI METABOLIC [id number] 07:21:00 Test Item Value Reference Range Interpretation [...] S NOT APPLICABLE FOR DIALYSIS PATIEN TS. [id number] 07:20:00 Test Item Value Reference Range Interpretation Comments PHOSPHORUS (BEAKER) (test code = 3.8 mg/dL 2.5-4.5 604) [id number] 07:15:00 Test Item Value Reference Range Interpretation Comments MAGNESIUM (BEAKER) (test code = 1.9 mg/dL 1.5-3.0 627) CBC W/PLT COUNT & AUTO [id number] 06:56:00 Test Item Value Reference Range Interpretation [...] (BEAKER) (test code = 2801) BASIC METABOLIC [id number] 05:51:00 Test Item Value Reference Range Interpretation [...] PATIEN TS. CBC W/PLT COUNT & AUTO [id number] 05:23:00 Test Item Value Reference Range Interpretation [...] pg/mL 0-100 H (test code = 700) [id number] 05:49:00 Test Item Value Reference Range Interpretation Comments PHOSPHORUS (BEAKER) (test code = 1.5 mg/dL 2.5-4.5 LL 604) BASIC METABOLIC [id number] 05:45:00 Test Item Value Reference Range Interpretation [...] S NOT APPLICABLE FOR DIALYSIS PATIEN TS. [id number] 05:39:00 Test Item Value Reference Range Interpretation Comments MAGNESIUM (BEAKER) (test code = 2.3 mg/dL 1.5-3.0 627) CBC W/PLT COUNT & AUTO [id number] 05:24:00 Test Item Value Reference Range Interpretation [...] (BEAKER) (test code = 2801) BASIC METABOLIC [id number] 21:36:00 Test Item Value Reference Range Interpretation [...] PATIEN TS. CBC W/PLT COUNT & AUTO [id number] 16:26:00 Test Item Value Reference Range Interpretation [...] = 2801) Notes Date/Time Note Provider Source 2023-04-10 Message from [employer]: [facility] 10:47:31-00:00 Jessy Higuera LVN [facility] Apr 10, 2023 10:39 AM ----- Message ----- From: Amanda Barragan Sent: 04/07/2023 5:07 PM CDT To: Mikel Blair [facility] Med Nurse Subject: Medication Renewal Request Refills have been requested for the following la dications: semaglutide (OZEMPIC) 0.25 mg or 0.5 mg (2 mg/3 mL) Blaise [Herman Watkins] Preferred pharm acy: [id number] - [place], [place] - [address] [facility] Delivery method: Pickup 2023-04-10 Formatting of this note is different from the or iginal. [facility] 09:41:04-00:00 Images from the original note were not included. Requested Renewals Name from pharmacy: OZEMPIC 0.25-0.5 MG/DOSE PE N Will file in chart as: OZEMPIC 0.25 mg or 0.5 m g (2 mg/3 mL) PnIj Sig: inject 0.25 mg under the skin weekly. Disp: Not specified (Pharmacy requested: 3 Each ) Refills: Not specified Start: 04/07/2023 Class: eRX Non-formulary For: Obesity with serious comorbidity, unspecified classification, unspecified obesity type To pharmacy: DX Code Needed REQUEST FOR REFILLS . Last ordered: 1 month ago (02/13/2023) by Herman Watkins MD Last refill: 02/13/2023 Rx #: [id number] Off-Protocol Failed 04/07/2023 04:56 PM Protocol Details Medication not assigned to a pr otocol, forward to provider. Valid encounter within last 12 months [facility] be filled at: [id number] [place], [place] - [address] [facility] Recent Visits Date Type Provider Dept 03/16/23 Office Visit Herman Watkins MD [facility] 02/23/23 Office Visit Yuliana Diaz PA [facility] 02/13/23 Office Visit Herman Watkins MD [facility] 11/24/22 Office Visit Herman Watkins MD [facility] 08/24/22 Office Visit Herman Watkins MD [facility] 06/20/22 Office Visit Herman Watkins MD [facility] 05/09/22 Office Visit Herman Watkins MD [facility] 02/16/22 Office Visit Herman Watkins MD [facility] Showing recent visits within past 540 days with a meds authorizing provider and meeting all other requirements Future Appointments No visits were found meeting these conditions. Showing future appointments within next 150 days with a meds authorizing provider and meeting all other requirements 2019-02-11 [id number] [facility] 09:37:00-00:[id number] [place] [id number] PATIENT NAME: AMANDA CANNON ADMIT JOHNNY E: 11/30/18 ACCOUNT NO: [id number] ROOM NO: Z.SI04 AGE: 63 REPORT TYPE: [...] righ t chest tube insertion with a #32-[employer] chest tube, which she tolerate d [...] is also to follow up with her can dryer, Dr. Hanson. PATIENT NAME: AMANDA CANNON Dictated By: BOGDAN Moreland for Ro lexii Rivera MD WT: DS:IVETT/MASOUD/JANNIE Conf#: [id number]/DID#: [id number] Authenticated by BOGDAN Moreland On 02/12/2019 05:25:06 PM Authenticated by Chris Rivera MD On 019 08:19:45 AM at 0820 at 0820 PATIENT NAME: AMANDA CANNON 2018-12-19 [facility] 21:35:00-00:00 [facility] ([facility]) Hospitalist Progress Note REPORT#:[id number] REPORT STATUS: Signed DATE:12/19/18 TIME: 2134 PATIENT: AMANDA CANNON UNIT #: [id number] ROOM/BED: SI04-A : 55 AGE: 63 SEX: F ATTEND: Augustus Rivera MD ADM AUTHOR: Romelia Aleman MD * ALL edits or amendments must be made on the [employer]/computer document * Subjective Chief Complaint: 63 y/o female post lung biopsy ,w subcutaneous e mphysema Objective Physical Exam Head/Eyes: looks better Cardiovascular: normal capillary refill, regular rate rhythm Respiratory: aerating well, clear to auscultatio n Neuro/CUSTOMER SERVICE ADVOCATE: alert, oriented X 3 Diagnosis, Assessment Plan [...] oxygen, nebs management per [facility] dvt ppx: [facility] [place] 12/03 pt is stable, transfer out icu cont chest tube cont cont management 12/04 transferred back to ICU bc of sq emphysema- CV s x following Chest Xray shows worsening s ubcutaneous emphysema otherwise stable appearance of the chest Cont Chest tube Cont current management on clear liquid diet. DVT prophylaxis: [facility] 12/05 -Chest Xray shows worsening subcutaneous emphysema and development of bibasilar atelectasis and questionable small pneumomediast inum. 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 -Cont Current management -DVT prophylaxis: [facility] 12/06 -Chest X ray shows overall i [...] CT to be taken out per DR mckowen Eyes are little better 12/12 pt is doing well, no new changes still w subcutaneous emphysema / Pt is doing about same, still w crepitus / Pt was sleeping , sitting up in [...] twice daily citalopram atorvastatin pain control with Makoti morphine Demerol supplement potassium magnesium. DVT prophylaxis with Loveno x. Planning for discharge home tomorrow. 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 12/19/18: pt is doing well. pt is getting dischar ged today. Electronically Signed by Romelia Aleman MD on 12/10 04/29 at 0807 RPT #:[id number] END OF REPORT 2018-12-19 [facility] 09:59:00-00:00 [facility] ([facility]) Cardiovascular Surgery Prog REPORT#:[id number] REPORT STATUS: Signed DATE:12/19/18 TIME: 958 PATIENT: AMANDA CANNON UNIT #: [id number] [address]BED: [address] : [address] AGE: 63 SEX: F ATTEND: Augustus Rivera MD ADM AUTHOR: Oumou Stanley NP * ALL edits or amendments must be made on the [employer]/computer document * General Post-op: Day 11 Status [...] 12/19 0647 O2 Delivery Nasal cannula 12/19 06 O2 Flow Rate 2.812077 12/19 0647 B/P Mean 95 12/19 0500 [...] Enoxaparin Sodium 40 MG Q24H SUBQ Ipratropium Butler 0.5 MG RTQ4H NEB (CKD) Levalbuterol HCl [...] BUE swelling-subq emphys candice-minimal at this time Neuro/CUSTOMER SERVICE ADVOCATE: alert, oriented X 3 Skin: subq enphysema [...] # (Auto) (1.0 - 3.8 K/mm3) 1.62 Wilbarger # (Auto) (0.1 - 0.8 K/mm3) 0.80 [...] subcutaneous emphysema. Impression By: Keiry Aguero MD RADIOLOGY - XR CHEST 1V 12/19 0552 Report Impression - Status: SIGNED Entered: 12/19/2018 0830 IMPRESSION: No interval change in the appearance of the ches t. Impression By: Kecia Wagoner MD Diagnosis, Assessment Plan Free Text [...] MD ( Dr. Rivera) at 2231 RPT #:[id number] END OF REPORT 2018-12-19 [facility] 09:59:00-00:00 [facility] ([facility]) Cardiovascular Surgery Prog REPORT#:[id number] REPORT STATUS: Signed DATE:12/19/18 TIME: 958 PATIENT: AMANDA CANNON UNIT #: [id number] [address]BED: [address] : 55 AGE: 63 SEX: F ATTEND: Augustus Rivera MD ADM AUTHOR: Oumou Stanley NP * ALL edits or amendments must be made on the [employer]/computer document * General Post-op: Day 11 Status post: RIGHT CHEST TUBE INSERTION Subjective Patient reports: No: complaints. Nursing reports: No: complaints. Comments: Seen at bedside Feeling better, with significant improvement to SQ emphysema. Want to and feels ready to go home Seen and evaluated by Dr. Rivear at bedside thi s AM Review of [...] Nasal cannula 12/19 0647 O2 Flow Rate 2.597096 12/19 0647 B/P Mean 95 12/19 0500 [...] Enoxaparin Sodium 40 MG Q24H SUBQ Ipratropium Butler 0.5 MG RTQ4H NEB (CKD) Levalbuterol HCl [...] BUE swelling-subq emphys candice-minimal at this time Neuro/CUSTOMER SERVICE ADVOCATE: alert, oriented X 3 Skin: subq enphysema [...] # (Auto) (1.0 - 3.8 K/mm3) 1.62 Wilbarger # (Auto) (0.1 - 0.8 K/mm3) 0.80 [...] MD ( Dr. Rivera) at 2231 at 0689 [facility] #:[id number] END OF REPORT 2018-12-18 [facility] 19:05:00-00:00 [facility] ([facility]) Hospitalist Progress Note REPORT#:[id number] REPORT STATUS: Signed DATE:12/18/18 TIME: 1904 PATIENT: AMANDA CANNON UNIT #: [id number] [address]OM[address]BED: [address] : 55 AGE: 63 SEX: F ATTEND: Augustus Rivera MD ADM AUTHOR: Romelia Aleman MD * ALL edits or amendments must be made on the [employer]/computer document * Subjective Chief Complaint: 63 y/o female post lung biopsy ,w subcutaneous e mphysema Objective Physical Exam Head/Eyes: looks better Cardiovascular: normal capillary refill, regular rate rhythm Respiratory: aerating well, clear to auscultatio n Abdomen: distended, tenderness, normal bowel yanelis nds Extremities: edema, moves al l, normal capillary refill, crepitus over the chest hand , face Musculoskeletal: normal inspection Neuro/CUSTOMER SERVICE ADVOCATE: alert, oriented X 3 Diagnosis, Assessment Plan [...] pneumomediast inum. 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 -Cont Current management -DVT [...] twice daily citalopram atorvastatin pain control with Makoti morphine Demerol supplement potassium magnesium. DVT prophylaxis [...] Aleman MD on 05/30 at 2124 RPT #:[id number] END OF REPORT 2018-12-18 [facility] 12:30:00-00:00 [facility] ([facility]) Cardiovascular Surgery Prog REPORT#:[id number] REPORT STATUS: Signed DATE:12/18/18 TIME: 1230 PATIENT: AMANDA CANNON UNIT #: [id number] [address]BED: [address] : 55 AGE: 63 SEX: F ATTEND: Augustus Rivera MD ADM AUTHOR: Oumou Stanley NP * ALL edits or amendments must be made on the [employer]/computer document * General Post-op: day 10 Status post: RIGHT CHEST TUBE INSERTION Subjective Patient reports: No: complaints. Nursing reports: No: complaints. Objective Physical Exam VS/I O: Last Documented: Result Date Time Pulse Ox 100 12/18 0900 B/P 122/84 12/18 0900 B/P Mean 100 12/18 0900 Pulse 75 12/18 0900 Resp 18 12/18 0900 FiO2 21 12/18 0851 O2 Delivery Room air 12/18 0851 Temp 97.8 12/18 0730 O2 Flow Rate 2.346298 12/17 1044 24 hour I O ending [...] Enoxaparin Sodium 40 MG Q24H SUBQ Ipratropium Butler 0.5 MG RTQ4H NEB (CKD) Levalbuterol HCl [...] BUE swelling-subq emphys candice-minimal at this time Neuro/CUSTOMER SERVICE ADVOCATE: alert, oriented X 3 Skin: subq enphysema [...] # (Auto) (1.0 - 3.8 K/mm3) 1.50 Wilbarger # (Auto) (0.1 - 0.8 K/mm3) 0.85 [...] opacities, likely representing atelectasis. Impression By: [email or web address] - Pushpa Wagoner MD RADIOLOGY - XR CHEST 1V 12/18 1221 Report Impression - Status: SIGNED Entered: 12/18/2018 1337 IMPRESSION: Minimal patchy opacity left lung base. This coul d be due to atelectasis or pneumonia. Severe subcutaneous emphysema. Impression By: [email or web address] - Beny Aguero MD Diagnosis, Assessment Plan Free Text [...] MD ( Dr. Rivera) at 2146 RPT #:[id number] END OF REPORT 2018-12-18 [facility] 12:30:00-00:00 [facility] ([facility]) Cardiovascular Surgery Prog REPORT#:[id number] REPORT STATUS: Signed DATE:12/18/18 TIME: 1230 PATIENT: AMANDA CANNON UNIT #: [id number] [address] AGE: 63 SEX: F ATTEND: Augustus Rivera MD ADM AUTHOR: Oumou Stanley NP * ALL edits or amendments must be made on the [employer]/computer document * General Post-op: day 10 Status post: RIGHT CHEST TUBE INSERTION Subjective Patient reports: No: complaints. Nursing reports: No: complaints. Objective Physical Exam VS/I O: Last Documented: Result Date Time Pulse Ox 100 12/18 0800 B/P 122/84 12/18 899 B/P Mean 100 12/18 0800 Pulse 75 12/18 0800 Resp 18 12/18 09 FiO2 21 12/18 0851 O2 Delivery Room air 12/19 0751 Temp 97.8 12/18 0630 O2 Flow Rate 2.012986 12/17 1044 24 hour I O ending [...] Enoxaparin Sodium 40 MG Q24H SUBQ Ipratropium Butler 0.5 MG RTQ4H NEB (CKD) Levalbuterol HCl [...] BUE swelling-subq emphys candice-minimal at this time Neuro/CUSTOMER SERVICE ADVOCATE: alert, oriented X 3 Skin: subq enphysema [...] # (Auto) (1.0 - 3.8 K/mm3) 1.50 Wilbarger # (Auto) (0.1 - 0.8 K/mm3) 0.85 [...] basilar opacities, likely representing atelectasis. Impression By: [email or web address] Rosalinda Wagoner MD RADIOLOGY - XR CHEST [...] Dr. Rivera) at 2146 at 2122 RPT #:[id number] END OF REPORT 2018-12-17 [facility] 20:13:00-00:00 [facility] ([facility]) Hospitalist Progress Note REPORT#:[id number] REPORT STATUS: Signed DATE:12/17/18 TIME: 2012 PATIENT: AMANDA CANNON UNIT #: [id number] [address] AGE: 63 SEX: F ATTEND: Augustus Rivera MD ADM AUTHOR: Karen Vasquez MD * ALL edits or amendments must be made on the [employer]/computer document * Subjective Chief Complaint: 63 y/o [...] 105 20 140/79 99 95 Room air / 1915 95 Room air 28 04/08 1800 96 23 124/72 92 94 04/08 1708 96 27 117/80 94 95 04/08 1600 97.8 04/08 1600 101 28 91 04/08 1501 98 Room air 21 04/08 1500 92 25 115/79 94 100 04/08 1400 90 33 97 04/08 1300 87 36 114/76 89 100 04/08 1215 91 22 125/71 93 100 04/08 1120 97.9 04/08 1107 85 20 116/77 92 99 04/08 1044 100 Nasal 2.052577 28 cannula 04/08 1000 78 24 119/81 91 100 04/08 0900 81 17 103/67 81 100 04/08 0800 Nasal 2.671300 cannula 04/08 0800 81 26 118/71 90 100 04/08 0755 97.8 04/08 0700 76 24 158/91 119 100 04/08 0644 100 Nasal 2.861793 28 cannula 04/08 0600 79 16 134/74 99 100 04/08 0500 80 19 108/57 78 93 04/08 0400 98.1 04/08 0400 82 14 138/67 96 97 04/08 0300 78 16 135/76 94 96 04/08 0200 94 17 98/66 78 97 12/17 0104 80 129/67 89 91 12/17 0000 98.6 12/17 0000 88 20 97 12/16 2300 101 23 98 12/16 2248 103 26 130/66 88 99 12/16 2200 112 28 146/82 106 24 hour I O ending at 0700: 12/17 0700 12/16 1900 Intake Total 250 890 Output Total Balance 250 890 Intake, Oral 250 890 Number 1 Bowel Movements Number Voids 4 4 Medications: Documentation of Current Medications in the [facility] Record : I attest that the foregoing medication list in [facility] medical record is true, accurate, [...] Enoxaparin Sodium 40 MG Q24H SUBQ Ipratropium Butler 0.5 MG RTQ4H NEB (CKD) Levalbuterol HCl [...] chest hand , face Musculoskeletal: normal inspection Neuro/CUSTOMER SERVICE ADVOCATE: alert, oriented X 3 Skin: subq emphysema [...] # (Auto) (1.0 - 3.8 K/mm3) 1.21 Wilbarger # (Auto) (0.1 - 0.8 K/mm3) 0.99 [...] pneumomediast inum. 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 -Cont Current management -DVT [...] give time for e mphysema to improve 4 pt is doing much better sats are better Electronically Signed by Karen Vasquez MD on 04/29 at 2015 RPT #:[id number] END OF REPORT 2018-12-17 [facility] 10:49:00-00:00 [facility] ([facility]) Cardiovascular Surgery Prog REPORT#:[id number] REPORT STATUS: Signed DATE:12/17/18 TIME: 1048 PATIENT: AMANDA CANNON UNIT #: [id number] ROOM/BED: [address] : 55 AGE: 63 SEX: F ATTEND: Augustus Rivera MD ADM AUTHOR: Oumou Stanley NP * ALL edits or amendments must be made on the [employer]/computer document * General Post-op: day 9 Status [...] 12/17 1000 O2 Delivery Nasal cannula 12/17 08 O2 Flow Rate 2.526541 12/17 0800 Temp 97.8 12/17 0755 FiO2 [...] Enoxaparin Sodium 40 MG Q24H SUBQ Ipratropium Butler 0.5 MG RTQ4H NEB (CKD) Levalbuterol HCl [...] BUE swelling-subq emphys candice-minimal at this time Neuro/CUSTOMER SERVICE ADVOCATE: alert, oriented X 3 Skin: subq enphysema [...] # (Auto) (1.0 - 3.8 K/mm3) 1.21 Wilbarger # (Auto) (0.1 - 0.8 K/mm3) 0.99 [...] nurse ( at bedside) at 1809 RPT #:[id number] END OF REPORT 2018-12-17 [facility] 10:49:00-00:00 [facility] ([facility]) Cardiovascular Surgery Prog REPORT#:[id number] REPORT STATUS: Signed DATE:12/17/18 TIME: 1049 PATIENT: AMANDA CANNON UNIT #: [id number] ROOM/BED: [address] : 55 AGE: 63 SEX: F ATTEND: Augustus Rivera MD ADM AUTHOR: Oumou Stanley NP * ALL edits or amendments must be made on the [employer]/computer document * General Post-op: day 9 Status [...] Nasal cannula 12/17 0800 O2 Flow Rate 2.940002 12/17 0800 Temp 97.8 12/17 0755 FiO2 [...] Enoxaparin Sodium 40 MG Q24H SUBQ Ipratropium Butler 0.5 MG RTQ4H NEB (CKD) Levalbuterol HCl [...] BUE swelling-subq emphys candice-minimal at this time Neuro/CUSTOMER SERVICE ADVOCATE: alert, oriented X 3 Skin: subq enphysema (improving) Results Findings/Data: Laboratory Tests 12/17 0430 Chemistry Sodium (137 - 145 MMOL/L) 136 [...] - 2.3 MG/DL) 2.0 Laboratory Tests 12/17 0430 Coagulation INR (0.8 - 1.1) 1.0 PT Patient/Control Mix (9.6 - 11.6 SECONDS) 10. 4 Laboratory Tests 12/17 0430 Hematology WBC (3.8 - 9.8 K/MM3) 7.7 [...] # (Auto) (1.0 - 3.8 K/mm3) 1.21 Wilbarger # (Auto) (0.1 - 0.8 K/mm3) 0.99 [...] Procedure Date/time Status Chest Tube Management 12/17 180 Active Plan discussed with: patient , collaborating MD (Dr. Rivera, CVS team), nurse ( at bedside) at 1809 at 2122 RPT #:[id number] END OF REPORT 2018-12-17 [facility] 07:35:00-00:00 [facility] ([facility]) Cardiology Progress Note REPORT#:[id number] REPORT STATUS: Signed DATE:12/17/18 TIME: 07 PATIENT: AMANDA CANNON UNIT #: [id number] [address] AGE: 63 SEX: F ATTEND: Augustus Rivera MD ADM AUTHOR: Miguel Chawla MD * ALL edits or amendments must be made on the el [employer]/computer document * Subjective Chief Complaint: feels better, less facial swelling Patient reports: No: chest pain, palpitations, shortness of breat h. Objective General VS/I O: 24 hour I O ending at 0700: 12/17 0700 04 1900 Intake Total 250 890 Output Total Balance 250 890 Intake, Oral 250 890 Number 1 Bowel Movements Number Voids 4 4 Vital Signs: Date Time Temp Pulse Resp B/P B/P Pulse O2 O2 F low FiO2 Mean Ox Delivery Rate 12/17 07 76 24 158/91 119 100 04/08 0600 79 16 134/74 99 100 04/08 0500 80 19 108/57 78 93 04/08 0400 98.1 / 0400 82 14 138/67 96 97 04/08 [...] 93 96 04/07 1900 98.6 04/07 1900 2.196279 04/07 1900 109 27 128/69 93 97 04/07 1842 99 Nasal 2.856695 28 cannula 04/07 1800 108 42 115/83 [...] 19 167/78 111 95 04/07 0800 Nasal 3.733630 cannula /07 0800 81 35 135/85 103 91 04/07 0754 97.8 Status post: Robotic assisted excision [...] peripheral pulses Musculoskeletal: full range of motion Neuro/CUSTOMER SERVICE ADVOCATE: alert, oriented X 3, CN II-XII intact [...] # (Auto) (1.0 - 3.8 K/mm3) 1.21 Wilbarger # (Auto) (0.1 - 0.8 K/mm3) 0.99 [...] current medical rx. Ambulate at 0828 RPT #:[id number] END OF REPORT 2018-12-16 [facility] 20:14:00-00:00 [facility] ([facility]) Hospitalist Progress Note REPORT#:[id number] REPORT STATUS: Signed DATE:12/16/18 TIME: 2013 PATIENT: AMANDA CANNON UNIT #: [id number] ROOM/BED: [address] : 55 AGE: 63 SEX: F ATTEND: Augustus Rivrea MD ADM AUTHOR: Karen Vasquez MD * ALL edits or amendments must be made on the el [employer]/computer document * Subjective Chief Complaint: 63 y/o [...] low FiO2 Mean Ox Delivery Rate 12/16 1899 98.6 12/16 1900 2.631802 04/ 1800 108 42 115/83 94 93 04/ 1700 100 30 107/74 87 97 04/ 1600 98.2 04/ 1600 98 39 116/69 86 93 04/ 1500 93 19 126/74 92 97 04/ 1400 98 20 116/66 84 97 04/ 1300 101 26 141/112 122 97 04/ 1208 105 21 131/81 101 97 04/07 1200 97 18 161/72 103 96 04/ 1159 98.5 04/ 1100 83 18 139/89 107 97 04/07 1000 79 25 165/86 119 96 04/07 0900 79 19 167/78 111 95 04/07 0800 Nasal 3.555196 cannula 04/ 0800 81 35 135/85 103 91 04/07 0754 97.8 04/ 0700 90 19 129/59 81 98 04/07 0633 99 Nasal 2.878093 28 cannula 04/07 0600 84 20 129/95 [...] 04/06 2200 103 23 147/81 107 100 04/06 2100 96 32 144/90 114 100 24 hour I O ending at 0700: 12/16 0700 12/15 1900 Intake Total 250 540 Output Total 2 750 Balance 248 -210 Intake, Oral 250 540 Output, Urine 2 750 Medications: Documentation of Current Medications in the [facility] Record : I attest that the foregoing [...] Enoxaparin Sodium 40 MG Q24H SUBQ Ipratropium Butler 0.5 MG RTQ4H NEB (CKD) Levalbuterol HCl [...] chest hand , face Musculoskeletal: normal inspection Neuro/CUSTOMER SERVICE ADVOCATE: alert, oriented X 3 Skin: subq emphysema [...] pneumomediast inum. 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 -Cont Current management -DVT [...] Vasquez MD on 03/29 at 2016 RPT #:[id number] END OF REPORT 2018-12-15 [id number] [facility] 18:41:00-00:00 [address] [place] [address] PATIENT NAME: AMANDA CANNON ADMIT JOHNNY E: 11/30/18 ACCOUNT NO: [id number] ROOM NO: [id number].SI04 AGE: 63 REPORT TYPE: [...] Karen Vasquez MD WT: PN:IVETT/SOLANGE/JANNIE PATIENT NAME: AMANDA CANNON Conf#: [id number]/DID#: [id number] Authenticated by Karen Vasquez MD On 12/15/2018 11:18:29 PM Electronically Signed by Karen Vasquez MD on at 2318 PATIENT NAME: AMANDA CANNON 2018-12-15 [facility] 09:06:00-00:00 [facility] ([facility]) Cardiology Progress Note REPORT#:[id number] REPORT STATUS: Signed DATE:12/15/18 TIME: 905 PATIENT: AMANDA CANNON UNIT #: [id number] [address] AGE: 63 SEX: F ATTEND: Augustus Rivera MD ADM AUTHOR: Alen Hanson MD * ALL edits or amendments must be made on the [employer] document * Subjective Chief Complaint: feels better, less facial swelling Patient reports: Yes: shortness of breath, swelling. No: chest pa in, palpitations. Nursing reports: No: complaints. Objective General VS/I O: 24 hour I O ending at 0700: 0406 0700 04/05 1900 Intake Total 150 550 Output Total 850 610 Balance -700 -60 Intake, Oral 150 550 Number 1 2 Bowel Movements Number Voids 1 Output, Chest 10 Tube Drainage Output, Urine 850 600 Vital Signs: Date Time Temp Pulse Resp B/P B/P Pulse O2 O2 F low FiO2 Mean Ox Delivery Rate 04/06 0900 63 34 134/74 99 89 04/06 0819 86 21 126/89 104 96 04/06 0800 98.3 04/06 0800 Nasal 3.322497 cannula 04/06 0716 96 Nasal 3.200890 32 cannula 04/06 0700 75 26 171/94 122 87 04/06 0600 84 16 134/71 97 98 04/06 0500 75 22 139/82 106 91 04/06 0400 98.0 Nasal 2.364336 cannula 04/06 0400 88 19 129/69 86 92 04/06 0300 87 16 157/107 127 100 04/06 0200 97 33 128/90 104 95 04/06 0101 89 34 155/86 115 90 04/06 0000 98.2 Nasal 2.577337 cannula 04/06 0000 96 20 138/79 102 97 04/05 2300 103 19 145/86 109 96 04/05 2200 104 20 126/76 89 94 04/05 2101 147/79 105 04/05 2058 110 34 96 04/05 1999 Nasal 1.523212 cannula 04/05 1999 99.1 Nasal 1.228552 cannula 04/05 1999 106 19 142/73 97 95 04/05 1900 103 19 136/72 95 100 04/05 1845 97 Nasal 3.280185 32 cannula 04/05 1823 101 129/63 90 [...] 100 04/05 1009 95 146/84 108 95 Status post: [...] peripheral pulses Musculoskeletal: full range of motion Neuro/CUSTOMER SERVICE ADVOCATE: alert, oriented X 3, CN II-XII intact , no motor deficits Skin: abnormal color (S/Q emphysema) Psychiatry: normal affect, normal judgment/insig ht, normal mood, no hallucinations Results Findings/Data: Laboratory Tests 12/15 529 Chemistry Sodium (137 - 145 MMOL/L) 131 [...] - 2.3 MG/DL) 2.0 Laboratory Tests 12/15 529 Hematology WBC (3.8 - 9.8 K/MM3) 7.9 [...] % (Auto) (14 - 44 %) 14.4 Wilbarger % (Auto) (4 - 13 %) 9.3 Eos % (Auto) (0 - 6 %) 7.3 H Baso % (Auto) (0 - 2 %) 0.6 Neut # (Auto) (2.0 - 7.6 K/mm3) 5.23 Lymph # (Auto) (1.0 - 3.8 K/mm3) 1.13 Wilbarger # (Auto) (0.1 - 0.8 K/mm3) 0.73 [...] Alen Hanson MD on 0 12/15/18 at 1007 RPT #:[id number] END OF REPORT 2018-12-15 [id number] [facility] 08:09:00-00:[address] [place] [address] PATIENT NAME: AMANDA CANNON ADMIT JOHNNY E: 11/30/18 ACCOUNT NO: [id number] ROOM NO: [facility] AGE: 63 REPORT TYPE: ELECTROCARDIOGRAM SEX: F ADMITTING PHYSICIAN:Karen Vasquez MD ATTENDING PHYSICIAN:Chris Rivera MD Order: [id number] Test Reason : PVC's Test Date/Time Stamp: [...] Confirmed by:ALEN BRADLEY at 1408 PATIENT NAME: AMANDA CANNON 2018-12-15 [id number] [facility] 08:07:00-00:[address] [place] [address] PATIENT NAME: AMANDA CANNON ADMIT JOHNNY E: 11/30/18 ACCOUNT NO: [id number] ROOM NO: [facility] AGE: 63 REPORT TYPE: ELECTROCARDIOGRAM SEX: F ADMITTING PHYSICIAN:Karen Vasquez MD ATTENDING PHYSICIAN:Chris Rivera MD Order: [id number] Test Reason : PVC's Test Date/Time Stamp: [...] By: Chris Rivera Confirmed by:ALEN BRADLEY at 1052 PATIENT NAME: AMANDA CANNON 2018-12-14 [facility] 18:54:00-00:00 [facility] ([facility]) Hospitalist Progress Note REPORT#:[id number] REPORT STATUS: Signed DATE:12/14/18 TIME: 1853 PATIENT: AMANDA CANNON UNIT #: [id number] ROOM/BED: [address] : 55 AGE: 63 SEX: F ATTEND: Augustus Rivera MD ADM AUTHOR: Karen Vasquez MD * ALL edits or amendments must be made on the [employer]computer document * Subjective Chief Complaint: No change [...] Ox Delivery Rate 04/05 1845 97 Nasal 3.358910 32 cannula 04/05 1823 101 129/63 90 [...] 94 04/05 0700 97.3 04/05 0700 Nasal 3.104155 cannula 04/05 0700 100 19 122/60 75 98 04/05 0656 98 Nasal 3.228853 32 cannula 04/05 0645 94 20 96 [...] 100 25 97 04/05 0400 98.2 Nasal 2.332069 cannula 04/05 0400 94 18 129/95 109 [...] 87 25 92 04/05 0000 98.6 Nasal 2.804230 cannula 04/05 0000 88 142/96 116 92 04/04 2345 86 26 94 04/04 2329 92 96 04/04 2315 84 95 04/04 2300 84 155/86 108 95 04/04 2245 84 21 97 04/04 2215 85 24 95 04/04 2200 86 20 151/76 108 97 04/04 2145 90 19 96 04/04 2130 92 18 97 04/04 2115 96 18 98 04/04 2100 143/93 112 /5 104 21 98 12/13 2029 103 20 97 12/13 2014 104 96 04 1999 Nasal 2.553840 cannula 12/14 1999 98.6 Room air 12/14 1999 104 28 98 12/13 1958 102 26 146/88 113 97 04/ 1947 108 26 98 /04 194 105 26 97 /04 1930 101 97 /04 1915 105 26 96 04/04 1902 105 27 150/88 109 97 24 hour I O ending at 0700: 04 0700 12/13 1900 Intake Total 1150 700.00 Output Total 60 1561 Balance 1090 -861.00 Intake, IV 200.00 Intake, Oral 1150 500 Number 2 3 Bowel Movements Number Voids 6 Output, Chest 10 10 Tube Drainage Output, Urine 50 1551 Patient 58.967 kg Weight Medications: Documentation of Current Medications in the [facility] Record : I attest that the foregoing [...] Enoxaparin Sodium 40 MG Q24H SUBQ Ipratropium Butler 0.5 MG RTQ4H NEB (CKD) Levalbuterol HCl [...] chest hand , face Musculoskeletal: normal inspection Neuro/CUSTOMER SERVICE ADVOCATE: alert, oriented X 3 Skin: subq emphysema [...] pneumomediast inum. 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 -Cont Current management -DVT [...] Vasquez MD on 02/27 at 1814 RPT #:[id number] END OF REPORT 2018-12-14 [facility] 10:31:00-00:00 [facility] ([facility]) Cardiovascular Surgery Prog REPORT#:[id number] REPORT STATUS: Signed DATE:12/14/18 TIME: 1031 PATIENT: AMANDA CANNON UNIT #: [id number] ROOM/BED: [address] : 55 AGE: 63 SEX: F ATTEND: Augustus Rivera MD ADM AUTHOR: Oumou Stanley NP * ALL edits or amendments must be made on the [employer] document * General Post-op: day 6 Status [...] B/P 146/87 12/14 0900 B/P Mean 110 / 0900 Pulse 97 / 0900 Resp 18 / 0900 Temp 97.3 12/14 0700 O2 Delivery Nasal cannula 12/14 0700 O2 Flow Rate 3.140186 12/14 0700 FiO2 32 / 0656 24 [...] Enoxaparin Sodium 40 MG Q24H SUBQ Ipratropium Butler 0.5 MG RTQ4H NEB (CKD) Levalbuterol HCl [...] Extremities: moves all, BUE swelling-subq emphys candice Neuro/CUSTOMER SERVICE ADVOCATE: alert, oriented X 3 Skin: subq enphysema [...] % (Auto) (14 - 44 %) 14.8 Wilbarger % (Auto) (4 - 13 %) 7.7 Eos % (Auto) (0 - 6 %) 4.6 Baso % (Auto) (0 - 2 %) 0.3 Neut # (Auto) (2.0 - 7.6 K/mm3) 6.99 Lymph # (Auto) (1.0 - 3.8 K/mm3) 1.45 Wilbarger # (Auto) (0.1 - 0.8 K/mm3) 0.76 [...] MD ( Dr. Rivera) at 1405 RPT #:[id number] END OF REPORT 2018-12-14 [facility] 10:31:00-00:00 [facility] ([facility]) Cardiovascular Surgery Prog REPORT#:[id number] REPORT STATUS: Signed DATE:12/14/18 TIME: 1031 PATIENT: AMANDA CANNON UNIT #: [id number] ROOM/BED: [address] : 55 AGE: 63 SEX: F ATTEND: Augustus Rivera MD ADM AUTHOR: Oumou Stanley NP * ALL edits or amendments must be made on the [employer] document * General Post-op: day 6 Status [...] Ox 96 12/14 899 B/P 146/87 12/14 899 B/P Mean 110 12/14 899 Pulse 97 12/14 09 Resp 18 12/14 09 Temp 97.3 12/14 07 O2 Delivery Nasal cannula 12/14 699 O2 Flow Rate 3.180740 12/14 07 FiO2 32 12/14 0656 24 hour I O ending at 0700: 12/14 0712/13 1900 Intake Total 1150 700.00 Output Total [...] Enoxaparin Sodium 40 MG Q24H SUBQ Ipratropium Butler 0.5 MG RTQ4H NEB (CKD) Levalbuterol HCl [...] Extremities: moves all, BUE swelling-subq emphys candice Neuro/CUSTOMER SERVICE ADVOCATE: alert, oriented X 3 Skin: subq enphysema Results Findings/Data: Laboratory Tests 12/14 1111 Chemistry Sodium (137 - 145 MMOL/L) [...] - 2.3 MG/DL) 2.0 Laboratory Tests 12/15 707 Hematology WBC (3.8 - 9.8 K/MM3) 9.8 [...] % (Auto) (14 - 44 %) 14.8 Wilbarger % (Auto) (4 - 13 %) 7.7 Eos % (Auto) (0 - 6 %) 4.6 Baso % (Auto) (0 - 2 %) 0.3 Neut # (Auto) (2.0 - 7.6 K/mm3) 6.99 Lymph # (Auto) (1.0 - 3.8 K/mm3) 1.45 Wilbarger # (Auto) (0.1 - 0.8 K/mm3) 0.76 [...] Dr. Rivera) at 1405 at 1228 RPT #:[id number] END OF REPORT 2018-12-14 [id number] [facility] [place] [address] PATIENT NAME: AMANDA CANNON ADMIT JOHNNY E: 11/30/18 ACCOUNT NO: [id number] ROOM NO: [facility] AGE: 63 REPORT TYPE: ELECTROCARDIOGRAM SEX: F ADMITTING PHYSICIAN:Karen Vasquez MD ATTENDING PHYSICIAN:Chris Rivera MD Order: [id number] Test Reason : POSSIBLE ARRHYTHMIA Test Date/Time Stamp: MonDec 14 2018 09:54:01 Blood Pressure : / mmHG Vent. Rate : 098 BPM Atrial Rate : 098 BPM P-R Int : 114 ms QRS Dur : 082 ms QT Int : 362 ms P-R-T Axes : 053 031 043 degree s QTc Int : 462 ms Sinus rhythm with frequent premature ventricular complexes Low voltage QRS Borderline ECG When compared with ECG of 09-DEC-2018 05:20, premature ventricular complexes are now present Nonspecific T wave abnormality, improved in Infe rior leads Confirmed by ALEN HANSON ([id number]) on 12/15/2018 7 :10:32 AM Referred By: Chris Rivera Confirmed by:ALEN BRADLEY at 0710 PATIENT NAME: AMANDA CANNON 2018-12-13 [facility] 18:49:00-00:00 [facility] ([facility]) Hospitalist Progress Note REPORT#:[id number] REPORT STATUS: Signed DATE:12/13/18 TIME: 1848 PATIENT: AMANDA CANNON UNIT #: [id number] ROOM/BED: [address] : 55 AGE: 63 SEX: F ATTEND: Augustus Rivera MD ADM AUTHOR: Karen Vasquez MD * ALL edits or amendments must be made on the [employer] document * Subjective Chief Complaint: No change [...] all, normal capillary refill Musculoskeletal: normal inspection Neuro/CUSTOMER SERVICE ADVOCATE: alert, oriented X 3 Skin: subq emphysema [...] pneumomediast inum. 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 -Cont Current management -DVT [...] Vasquez MD on 01/27 at 1857 RPT #:[id number] END OF REPORT 2018-12-13 [facility] 18:09:00-00:00 [facility] ([facility]) Cardiology Progress Note REPORT#:[id number] REPORT STATUS: Signed DATE:12/13/18 TIME: 1808 PATIENT: AMANDA CANNON UNIT #: [id number] [address] AGE: 63 SEX: F ATTEND: Augustus Rivera MD ADM AUTHOR: Miguel Chawla MD * ALL edits or amendments must be made on the el [employer]/computer document * Subjective Patient reports: No: chest pain, palpitations, shortness of breat h. Objective General VS/I O: 24 hour I O ending at 0700: 04/04 0700 04/03 1900 Intake Total 50 440 Output Total 655 545 Balance -605 -105 Intake, Oral 50 440 Number 1 3 Bowel Movements Number Voids 17 3 Output, Chest 5 25 Tube Drainage Output, Urine 650 520 Vital Signs: Date Time Temp Pulse Resp B/P B/P Pulse O2 O2 Flow FiO2 Mean Ox Delivery Rate 04 1702 104 133/76 97 97 04/04 1700 22 04/04 1635 96.8 04/04 1627 99 27 140/72 93 99 04/04 1528 24 04/04 1502 92 131/63 90 98 04/04 1413 147/70 100 99 04/04 1400 100 20 04/04 1308 87 17 137/81 101 96 04/04 1205 156/67 97 04/04 1200 96.8 Nasal 2.934887 cannula 04/04 1200 87 24 94 04/04 1137 20 04/04 1103 86 123/74 93 93 04/04 1000 88 23 131/67 91 93 04/04 0903 92 25 107/57 79 93 04/04 0800 85 17 134/75 94 92 04/04 0713 86 17 130/68 91 96 04/04 0700 97.8 04/04 0658 98 Nasal 2.889981 cannula 04/04 0547 79 17 93 04/04 0500 87 20 94 04/04 0400 75 99 04/04 0318 78 17 123/57 79 96 04/04 0221 79 97 04/04 0200 81 124/75 96 96 04/04 0131 136/77 101 04/04 0100 79 144/89 96 04/04 0036 84 18 142/62 89 96 04/04 0000 98.6 04/04 0000 85 97 04/03 2330 97 21 134/79 101 98 04/03 2300 99 134/80 102 94 04/03 2230 99 22 134/58 79 96 04/03 2204 105 21 97 04/03 2200 103 19 145/67 97 98 04/03 2130 106 97 04/03 2100 105 20 141/81 106 96 04/03 2000 107 115/61 82 94 04/03 1950 Nasal 2.569178 cannula /1950 98.6 107 26 129/80 96 96 Nasal 2.000 000 cannula 12/12 1930 109 20 129/80 100 98 / 1915 97 Nasal 1.856568 26 cannula 12/12 1900 106 20 124/78 94 98 Medications: Active Meds + DC'd Last 24 Hrs Magnesium Sulfate/Dextrose 1 GM ASDIR PRN IV Potassium Chloride 20 MEQ ASDIR PRN IV Fluticasone Propionate 1 SPRAY BID NASAL (CKD) Enoxaparin Sodium 40 MG Q24H SUBQ Ipratropium Butler 0.5 MG RTQ4H NEB (CKD) Levalbuterol HCl [...] peripheral pulses Musculoskeletal: full range of motion Neuro/CUSTOMER SERVICE ADVOCATE: alert, oriented X 3, CN II-XII intact [...] % (Auto) (14 - 44 %) 16.0 Wilbarger % (Auto) (4 - 13 %) 7.7 Eos % (Auto) (0 - 6 %) 3.5 Baso % (Auto) (0 - 2 %) 0.3 Neut # (Auto) (2.0 - 7.6 K/mm3) 6.52 Lymph # (Auto) (1.0 - 3.8 K/mm3) 1.47 Wilbarger # (Auto) (0.1 - 0.8 K/mm3) 0.71 [...] current medical rx. Ambulate at 1811 RPT #:[id number] END OF REPORT 2018-12-13 [facility] 10:25:00-00:00 [facility] ([facility]) Cardiovascular Surgery Prog REPORT#:[id number] REPORT STATUS: Signed DATE:12/13/18 TIME: 1025 PATIENT: AMANDA CANNON UNIT #: [id number] ROOM/BED: [address] : 55 AGE: 63 SEX: F ATTEND: Meg Rivera MD ADM AUTHOR: Oumou Stanley NP * ALL edits or amendments must be made on the [employer] document * General Post-op: day 5 Status [...] Nasal cannula 12/13 0720 O2 Flow Rate 2.088490 12/13 0720 Temp 97.8 12/13 0700 FiO2 [...] Enoxaparin Sodium 40 MG Q24H SUBQ Ipratropium Butler 0.5 MG RTQ4H NEB (CKD) Levalbuterol HCl [...] Extremities: moves all, BUE swelling-subq emphys candice Neuro/CUSTOMER SERVICE ADVOCATE: alert, oriented X 3 Skin: subq enphysema [...] % (Auto) (14 - 44 %) 16.0 Wilbarger % (Auto) (4 - 13 %) 7.7 Eos % (Auto) (0 - 6 %) 3.5 Baso % (Auto) (0 - 2 %) 0.3 Neut # (Auto) (2.0 - 7.6 K/mm3) 6.52 Lymph # (Auto) (1.0 - 3.8 K/mm3) 1.47 Wilbarger # (Auto) (0.1 - 0.8 K/mm3) 0.71 [...] 12/14 050 Active CBC W/AUTO DIFF 12/14 050 Active BASIC METABOLIC PANEL 12/14 499 Active Plan discussed with: patient, collaborating MD ( Dr. Rivera) at 1045 RPT #:[id number] END OF REPORT 2018-12-13 [facility] 10:25:00-00:00 [facility] ([facility]) Cardiovascular Surgery Prog REPORT#:[id number] REPORT STATUS: Signed DATE:12/13/18 TIME: 1025 PATIENT: CANNONAMANDA LOPEZ UNIT #: [id number] ROOM/BED: [facility] : 55 AGE: 63 SEX: F ATTEND: Augustus Rivera MD ADM AUTHOR: Oumou Stanley NP * ALL edits or amendments must be made on the [employer] document * General Post-op: day 5 Status [...] Nasal cannula 12/13 0720 O2 Flow Rate 2.459847 12/13 0720 Temp 97.8 12/13 0700 FiO2 [...] Enoxaparin Sodium 40 MG Q24H SUBQ Ipratropium Butler 0.5 MG RTQ4H NEB (CKD) Levalbuterol HCl [...] Extremities: moves all, BUE swelling-subq emphys candice Neuro/CUSTOMER SERVICE ADVOCATE: alert, oriented X 3 Skin: subq enphysema [...] % (Auto) (14 - 44 %) 16.0 Wilbarger % (Auto) (4 - 13 %) 7.7 Eos % (Auto) (0 - 6 %) 3.5 Baso % (Auto) (0 - 2 %) 0.3 Neut # (Auto) (2.0 - 7.6 K/mm3) 6.52 Lymph # (Auto) (1.0 - 3.8 K/mm3) 1.47 Wilbarger # (Auto) (0.1 - 0.8 K/mm3) 0.71 [...] Dr. Rivera) at 1045 at 1237 RPT #:[id number] END OF REPORT 2018-12-12 [facility] 20:38:00-00:00 [facility] ([facility]) Hospitalist Progress Note REPORT#:[id number] REPORT STATUS: Signed DATE:12/12/18 TIME: 2037 PATIENT: AMANDA CANNON UNIT #: [id number] ROOM/BED: [address] : 55 AGE: 63 SEX: F ATTEND: Augustus Rivera MD ADM AUTHOR: Karen Vasquez MD * ALL edits or amendments must be made on the [employer] document * Subjective Chief Complaint: No change [...] Mean Ox Delivery Rate 12/12 1950 Nasal 2.250657 cannula 12/12 1950 98.6 107 26 129/80 96 96 Nasal 2.000 000 cannula 12/12 1915 97 Nasal 1.720726 26 cannula 12/12 1805 93 12/12 1800 137/67 04/03 1730 103 30 134/84 [...] 125/93 04/03 0800 25 04/03 0745 Nasal 1.368442 cannula 04/03 0715 97.4 04/03 0713 84 21 135/72 100 04/03 0705 95 Nasal 1.370836 26 cannula 04/03 0613 83 23 123/75 [...] Medications: Documentation of Current Medications in the Medi zan Record : I attest that the foregoing medication list in t he medical record is true, accurate, and complete to the best of my knowled ge. Active Meds + DC'd Last 24 Hrs Fluticasone Propionate 1 SPRAY BID NASAL (CKD) Enoxaparin Sodium 40 MG Q24H SUBQ Ipratropium Butler 0.5 MG RTQ4H NEB (CKD) Levalbuterol HCl [...] all, normal capillary refill Musculoskeletal: normal inspection Neuro/CUSTOMER SERVICE ADVOCATE: alert, oriented X 3 Skin: subq emphysema [...] pneumomediast inum. 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 -Cont Current management -DVT [...] Vasquez MD on 11/27 at 2041 RPT #:[id number] END OF REPORT 2018-12-12 [facility] 19:40:00-00:00 [facility] ([facility]) Cardiovascular Surgery Prog REPORT#:[id number] REPORT STATUS: Signed DATE:12/12/18 TIME: 1939 PATIENT: AMANDA CANNON UNIT #: [id number] ROOM/BED: [address] : 55 AGE: 63 SEX: F ATTEND: Augustus Rivera MD ADM AUTHOR: Mickie Coats * ALL edits or amendments must be made on the [employer] document * General Post-op: day 4 Status [...] Nasal cannula 12/12 1914 O2 Flow Rate [id number] 12/12 1914 B/P 137/67 12/12 1800 Pulse [...] Enoxaparin Sodium 40 MG Q24H SUBQ Ipratropium Butler 0.5 MG RTQ4H NEB (CKD) Levalbuterol HCl [...] Extremities: moves all, BUE swelling-subq emphys candice Neuro/[employer]: alert, oriented X 3 Skin: subq enphysema [...] - 2.3 MG/DL) 1.9 Laboratory Tests 12/12 0512 Hematology WBC (3.8 - 9.8 K/MM3) 7.7 [...] % (Auto) (14 - 44 %) 16.6 [place] % (Auto) (4 - 13 %) 8.0 Eos % (Auto) (0 - 6 %) 2.6 Baso % (Auto) (0 - 2 %) 0.3 Neut # (Auto) (2.0 - 7.6 K/mm3) 5.51 Lymph # (Auto) (1.0 - 3.8 K/mm3) 1.28 [place] # (Auto) (0.1 - 0.8 K/mm3) 0.62 [...] and dischage her home. at 1952 RPT #:[id number] END OF REPORT 2018-12-12 [facility] 19:40:00-00:00 [facility] ([facility]) Cardiovascular Surgery Prog REPORT#:[id number] REPORT STATUS: Signed DATE:12/12/18 TIME: 1939 PATIENT: AMANDA CANNON UNIT #: [id number] ROOM/BED: [address] : 55 AGE: 63 SEX: F ATTEND: Augustus Rivera MD ADM AUTHOR: Mickie Coats * ALL edits or amendments must be made on the [employer]computer document * General Post-op: day 4 Status [...] Nasal cannula 12/12 1914 O2 Flow Rate 1.676365 12/12 191 B/P 137/67 12/12 1800 Pulse [...] Enoxaparin Sodium 40 MG Q24H SUBQ Ipratropium Butler 0.5 MG RTQ4H NEB (CKD) Levalbuterol HCl [...] Extremities: moves all, BUE swelling-subq emphys candice Neuro/CUSTOMER SERVICE ADVOCATE: alert, oriented X 3 Skin: subq enphysema [...] % (Auto) (14 - 44 %) 16.6 [place]barger % (Auto) (4 - 13 %) 8.0 Eos % (Auto) (0 - 6 %) 2.6 Baso % (Auto) (0 - 2 %) 0.3 Neut # (Auto) (2.0 - 7.6 K/mm3) 5.51 Lymph # (Auto) (1.0 - 3.8 K/mm3) 1.28 Wilbarger # (Auto) (0.1 - 0.8 K/mm3) 0.62 [...] to subcutaneous emphysema. Location: U19 Impression By: JuanAmanda - Chris Ortiz MD Diagnosis, Assessment Plan [...] her home. at 1952 at 1237 RPT #:[id number] END OF REPORT 2018-12-12 [facility] 18:38:00-00:00 [facility] ([facility]) Infectious Dis. Progress Note REPORT#:[id number] REPORT STATUS: Signed DATE:12/12/18 TIME: 1837 PATIENT: AMANDA CANNON UNIT #: [id number] ROOM/BED: [address] : 55 AGE: 63 SEX: F ATTEND: Augustus Rivera MD ADM AUTHOR: Eric Yu MD * ALL edits or amendments must be made on the [employer]/computer document * Subjective Chief Complaint: 63F Hyperlipidemia.Hypertension. [...] Documented: Result Date Time Pulse Ox 93 12/12 1805 B/P 137/67 12/12 1800 Pulse 103 12/12 1730 Resp 30 12/12 1730 Temp 97.9 12/12 1626 O2 Delivery Nasal cannula 12/12 0745 O2 Flow Rate 1.518736 12/12 0745 FiO2 26 12/12 0705 B/P Mean 91 12/12 0613 Vital Signs Date Temp Pulse Resp B/P B/P Mean Pulse Ox FiO2 12/11-12/12 97.4-97.9 82-111 19-39 103-156/47-93 68-98 79-100 26-28 24 hour I O ending at 0700: 12/12 0700 04 1900 Intake Total 300 300 Output Total [...] Sodium 40 MG Q24H 12/10 1730 AC 04/ 3 SUBQ 01/09 1731 1700 Ipratropium Butler 0.5 MG RTQ4H 12/08 1100 CKD 12/12 NEB 01/07 1101 1430 Levalbuterol HCl 0.63 MG RTQ4H 12/08 1100 AC NEB 01/07 1101 1430 Atorvastatin Calcium 40 MG BEDTIME 11/30 2100 A C 12/11 PO 12/30 Citalopram 20 MG BEDTIME 11/30 2100 AC 12/11 Hydrobromide PO 12/30 2100 203 Docusate Sodium 100 MG BID 11/30 2100 AC 12/12 PO 12/30 2100 0840 Metoprolol Tartrate 25 MG BEDTIME 11/30 2100 AC 12/11 PO 12/30 2100 203 Pantoprazole 20 MG BEDTIME 11/30 2100 AC 12/11 PO 12/30 2100 203 Zolpidem Tartrate 10 MG BEDTIME 11/30 2100 AC 12/06 PO 12/30 2100 0037 Acetaminophen 650 [...] Q4H PRN PRN 11/30 191 0 AC 12/11 Acetaminophen PO 12/30 Hydrocodone Bitart/ 2 TAB Q4H PRN PRN 11/30 191 0 AC 12/10 Acetaminophen PO 12/30 1910 0453 Magnesium Hydroxide 30 ML DAILY PRN PRN 11/30 1 910 AC PO 12/30 1910 Meperidine HCl 25 MG Q4H PRN PRN 11/30 1909 AC 12/07 IM 12/306 Naloxone HCl 0.2 MG ASDIR PRN 11/30 1909 AC IV 12/30 1910 Ondansetron HCl 4 MG Q4H PRN PRN 11/30 1909 AC 12/08 IV 12/30 1910 0203 Laboratory Tests 12/13 511 Chemistry Sodium (137 [...] % (Auto) (14 - 44 %) 16.6 Wilbarger % (Auto) (4 - 13 %) 8.0 Eos % (Auto) (0 - 6 %) 2.6 Baso % (Auto) (0 - 2 %) 0.3 Neut # (Auto) (2.0 - 7.6 K/mm3) 5.51 Lymph # (Auto) (1.0 - 3.8 K/mm3) 1.28 Wilbarger # (Auto) (0.1 - 0.8 K/mm3) 0.62 [...] Yu MD on 12/12 at 1845 RPT #:[id number] END OF REPORT 2018-12-12 [facility] 06:22:00-00:00 [facility] Cardiology Progress Note REPORT#:[id number] REPORT STATUS: Signed DATE:12/12/18 TIME: 621 PATIENT: AMANDA CANNON UNIT #: [id number] [address] AGE: 63 SEX: F ATTEND: Augustus Rivera MD ADM AUTHOR: Miguel Chawla MD * ALL edits or amendments must be made on the [employer]/computer document * Subjective Chief Complaint: no CP, worsening SOB Patient reports: No: chest pain, palpitations, shortness of breat h. Objective General VS/I O: 24 hour I O ending at 0700: 12/12 0700 04/ 1900 Intake Total 150 300 Output Total [...] 04/02 2113 106 30 147/65 94 95 04/02 2021 93 Nasal 2.004042 28 cannula 04/ 2000 97.6 04/02 1930 Nasal 1.468062 cannula 04/ 1726 97.5 04/02 1713 102 33 143/82 94 04/02 1613 107 30 156/68 93 04/02 1513 101 34 97/68 98 04/02 1413 101 35 106/74 92 04/02 1313 106 38 136/78 92 04/02 1300 93 04/02 1213 97 25 139/71 04/02 1200 93 04/ 1100 97.7 12/11 1013 102 18 128/74 93 04/ 1000 94 / 0913 98 115/76 04/ 0900 22 93 04/ 0823 Nasal 1.603181 cannula / 0813 135/76 04/ 0800 96 20 92 04/ 0715 98.1 / 0713 93 21 136/78 95 04/ 0641 94 Nasal 1.168140 26 cannula Medications: Active Meds + DC'd Last 24 Hrs Fluticasone Propionate 1 SPRAY BID NASAL (CKD) Potassium Chloride 20 MEQ NOW ONE PO (DC) Enoxaparin Sodium 40 MG Q24H SUBQ Ipratropium Butler 0.5 MG RTQ4H NEB (CKD) Levalbuterol HCl [...] RECTAL Hydrocodone Bitart/Acetaminophen 1 TAB Q4H PRN PRN PO Hydrocodone Bitart/Acetaminophen 2 TAB Q4H PRN [...] peripheral pulses Musculoskeletal: full range of motion Neuro/CUSTOMER SERVICE ADVOCATE: alert, oriented X 3, CN II-XII intact [...] % (Auto) (14 - 44 %) 16.6 Wilbarger % (Auto) (4 - 13 %) 8.0 Eos % (Auto) (0 - 6 %) 2.6 Baso % (Auto) (0 - 2 %) 0.3 Neut # (Auto) (2.0 - 7.6 K/mm3) 5.51 Lymph # (Auto) (1.0 - 3.8 K/mm3) 1.28 Wilbarger # (Auto) (0.1 - 0.8 K/mm3) 0.62 [...] current medical rx. Ambulate at 1813 RPT #:[id number] END OF REPORT 2018-12-11 [facility] 17:54:00-00:00 [facility] ([facility]) Cardiology Progress Note REPORT#:[id number] REPORT STATUS: Signed DATE:12/11/18 TIME: 1754 PATIENT: AMANDA CANNON UNIT #: [id number] ROOM/BED: [address] : 55 AGE: 63 SEX: F ATTEND: Augustus Rivera MD ADM AUTHOR: Sadie Villalba NP * ALL edits or amendments must be made on the [employer]/computer document * Subjective Free Text Subj Notes [...] 97.5 12/11 1413 101 35 106/74 92 04/02 1313 106 38 136/78 92 04/02 1300 93 04/02 1213 97 25 139/71 04/02 1200 93 04/ 1100 97.7 04/ 1013 102 18 128/74 93 04/02 1000 94 04/02 0913 98 115/76 04/02 0900 22 93 04/02 0823 Nasal 1.306638 cannula 04/ 0813 135/76 04/02 0800 96 20 92 04/02 0715 98.1 04/02 0713 93 21 136/78 95 04/02 0641 94 Nasal 1.383042 26 cannula 04/ 0400 98.7 04/ 0224 94 26 111/81 88 91 04/02 0200 93 04/ 0113 94 27 102/67 79 92 04/02 0100 93 04/02 0013 94 22 117/62 83 92 04/02 0000 98.7 04/02 0000 97 12/10 2313 92 33 124/68 89 94 04 2300 97 12/10 2213 93 36 142/69 95 97 12/10 2113 105 31 120/80 95 96 12/10 2012 108 22 137/76 98 97 12/11 2003 97 12/11 1999 98.9 12/11 1999 97 12/10 1930 Nasal 3.737526 cannula 12/10 191 112 26 121/71 89 95 04 191 95 Nasal 2.489471 28 cannula 12/10 1900 110 21 95 Medications: Active Meds + DC'd Last 24 Hrs Fluticasone Propionate 1 SPRAY BID NASAL (CKD) Potassium Chloride 20 MEQ NOW ONE PO (DC) Enoxaparin Sodium 40 MG Q24H SUBQ Ipratropium Butler 0.5 MG RTQ4H NEB (CKD) Levalbuterol HCl [...] peripheral pulses Musculoskeletal: full range of motion Neuro/CUSTOMER SERVICE ADVOCATE: alert, oriented X 3, CN II-XII intact , no motor deficits Skin: abnormal color (S/Q emphysema) Psychiatry: normal affect, normal judgment/insig ht, normal mood, no hallucinations Results Findings/Data: Laboratory Tests 12/12 507 Chemistry Sodium (137 - 145 MMOL/L) 134 [...] % (Auto) (14 - 44 %) 15.4 Wilbarger % (Auto) (4 - 13 %) 8.8 Eos % (Auto) (0 - 6 %) 2.4 Baso % (Auto) (0 - 2 %) 0.5 Neut # (Auto) (2.0 - 7.6 K/mm3) 5.60 Lymph # (Auto) (1.0 - 3.8 K/mm3) 1.20 Wilbarger # (Auto) (0.1 - 0.8 K/mm3) 0.69 [...] current medical rx. Ambulate at 1507 RPT #:[id number] END OF REPORT 2018-12-11 [facility] 17:54:00-00:00 [facility] ([facility]) Cardiology Progress Note REPORT#:[id number] REPORT STATUS: Signed DATE:12/11/18 TIME: 1754 PATIENT: AMANDA CANNON UNIT #: [id number] ROOM/BED: [address] : 55 AGE: 63 SEX: F ATTEND: Augustus Rivera MD ADM AUTHOR: Sadie Villalba NP * ALL edits or amendments must be made on the [employer]/computer document * Subjective Free Text Subj Notes [...] Mean Ox Delivery Rate 12/11 1726 97.5 / 1413 101 35 106/74 92 04/02 1313 106 38 136/78 92 04/02 1300 93 04/02 1213 97 25 139/71 04/02 1200 93 04/02 1100 97.7 04/02 1013 102 18 128/74 93 04/02 1000 94 04/02 0913 98 115/76 04/02 0900 22 93 04/02 0823 Nasal 1.998440 cannula / 0813 135/76 04/02 0800 96 20 92 04/02 0715 98.1 04/02 0713 93 21 136/78 95 04/02 0641 94 Nasal 1.678396 26 cannula / 0400 98.7 04/ 0224 94 26 111/81 88 91 04/02 0200 93 04/02 0113 94 27 102/67 79 92 12/11 0100 93 12/11 0013 94 22 117/62 83 92 12/11 0000 98.7 12/11 0000 97 12/10 2313 92 33 124/68 89 94 12/10 2300 97 12/103 93 36 142/69 95 97 12/103 105 31 120/80 95 96 12/10 2012 108 22 137/76 98 97 12/11 2003 97 12/11 1999 98.9 12/11 1999 97 12/10 1930 Nasal 3.018911 cannula 12/10 1912 112 26 121/71 89 95 12/10 1912 95 Nasal 2.400262 28 cannula 12/10 190 110 21 95 Medications: Active Meds + DC'd Last 24 Hrs Fluticasone Propionate 1 SPRAY BID NASAL (CKD) Potassium Chloride 20 MEQ NOW ONE PO (DC) Enoxaparin Sodium 40 MG Q24H SUBQ Ipratropium Butler 0.5 MG RTQ4H NEB (CKD) Levalbuterol HCl [...] peripheral pulses Musculoskeletal: full range of motion 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 Ambulate at 1507 at 0703 RPT #:[id number] END OF REPORT 2018-12-11 [facility] 16:55:00-00:00 [facility] ([facility]) Hospitalist Progress Note REPORT#:[id number] REPORT STATUS: Signed DATE:12/11/18 TIME: 1654 PATIENT: AMANDA CANNON UNIT #: [id number] ROOM/BED: [address] : 55 AGE: 63 SEX: F ATTEND: Augustus Rivera MD ADM AUTHOR: Karen Vasquez MD * ALL edits or amendments must be made on the [employer]/computer document * Subjective Chief Complaint: swelling [...] low FiO2 Mean Ox Delivery Rate 12/11 1413 101 35 106/74 92 04/ 1313 106 38 136/78 92 04/02 1300 93 04/ 1213 97 25 139/71 04/02 1200 93 04/02 1100 97.7 04/02 1013 102 18 128/74 93 04/02 1000 94 04/02 0913 98 115/76 04/02 0900 22 93 04/02 0823 Nasal 1.394250 cannula 04/ 0813 135/76 04/02 0800 96 20 92 04/02 0715 98.1 04/02 0713 93 21 136/78 95 04/02 0641 94 Nasal 1.688345 26 cannula 04/02 0400 98.7 04/02 0224 94 26 111/81 88 91 04/02 0200 93 04/02 0113 94 27 102/67 79 92 04/02 0100 93 04/02 0013 94 22 117/62 83 92 04/02 0000 98.7 04/02 0000 97 04/01 2313 92 33 124/68 89 94 04/ 2300 97 / 2213 93 36 142/69 95 97 04/ 2113 105 31 120/80 95 96 12/10 2012 108 22 137/76 98 97 04/01 2004 97 04/ 2000 98.9 /1999 97 04/ 1930 Nasal 3.343796 cannula 12/10 1912 112 26 121/71 89 95 04/ 1913 95 Nasal 2.664402 28 cannula 12/10 1900 110 21 95 12/10 1713 106 19 96/60 95 24 hour I O ending at 0700: 12/11 0700 12/10 190 Intake Total 230 470 Output Total 1050 1390 Balance -820 -920 Intake, Oral 230 470 Number Voids 7 7 Output, Chest 0 20 Tube Drainage Output, Urine 1050 1370 Medications: Documentation of Current Medications in the [facility] Record : I attest that the foregoing medication list in [facility] medical record is true, accurate, and complete to the best of my knowled ge. Active Meds + DC'd Last 24 Hrs Fluticasone Propionate 1 SPRAY BID NASAL (CKD) Potassium Chloride 20 MEQ NOW ONE PO (DC) Enoxaparin Sodium 40 MG Q24H SUBQ Ipratropium Butler 0.5 MG RTQ4H NEB (CKD) Levalbuterol HCl [...] auscultatio n Abdomen: distended, tenderness, normal bowel yanelsi nds Extremities: edema, moves all, normal capillary refill Musculoskeletal: normal inspection Neuro/CUSTOMER SERVICE ADVOCATE: alert, oriented X 3 Skin: subq emphysema [...] % (Auto) (14 - 44 %) 15.4 [place]ger % (Auto) (4 - 13 %) 8.8 Eos % (Auto) (0 - 6 %) 2.4 Baso % (Auto) (0 - 2 %) 0.5 Neut # (Auto) (2.0 - 7.6 K/mm3) 5.60 Lymph # (Auto) (1.0 - 3.8 K/mm3) 1.20 [place]barger # (Auto) (0.1 - 0.8 K/mm3) 0.69 [...] as appropriate -pain control -DVT prophylaxis - [facility] 12/02 cont chest tube cont oxygen, nebs management per [facility] dvt ppx: [facility] [place] 12/03 pt is stable, transfer out icu cont chest tube cont cont management 12/04 transferred back to ICU bc of sq emphysema- CV s x following Chest Xray shows worsening s ubcutaneous emphysema otherwise stable appearance of the chest Cont Chest tube Cont current management on clear liquid diet. DVT prophylaxis: [facility] 12/05 -Chest Xray shows worsening subcutaneous emphysema and development of bibasilar atelectasis and questionable small pneumomediast inum. 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 -Cont Current management -DVT prophylaxis: [facility] 12/06 -Chest X ray shows overall i [...] Nasal cannula 12/11 0823 O2 Flow Rate 1.848258 12/11 0823 FiO2 26 12/11 0641 B/P Mean 88 12/11 0224 B/P assess/follow-up: normal B/P, no f/u req Electronically Signed by Karen Vasquez MD on 10/30 at 1659 RPT #:[id number] END OF REPORT 2018-12-11 [facility] 10:30:00-00:00 [facility] ([facility]) Cardiovascular Surgery Prog REPORT#:[id number] REPORT STATUS: Signed DATE:12/11/18 TIME: 1030 PATIENT: AMANDA CANNON UNIT #: [id number] ROOM/BED: [address] : 55 AGE: 63 SEX: F ATTEND: Augustus Rivera MD ADM AUTHOR: Oumou Stanley NP * ALL edits or amendments must be made on the [employer]/computer document * General Post-op: day 3 Status [...] Nasal cannula 12/11 822 O2 Flow Rate 1.773376 12/11 822 B/P 135/76 12/11 08 Pulse Ox 92 12/11 08 Pulse 96 12/11 08 Resp 20 12/11 08 Temp 98.1 12/11 0715 FiO2 26 12/11 0641 B/P Mean 88 12/11 0224 24 hour I O ending at 0700: 12/11 0712/10 1900 Intake Total 230 470 Output Total 1050 1390 Balance -820 -920 Intake, Oral 230 470 Number Voids 7 7 Output, Chest 0 20 Tube Drainage Output, Urine 1050 1370 Medications: Active Meds + DC'd Last 24 Hrs Enoxaparin Sodium 40 MG Q24H SUBQ Ipratropium Butler 0.5 MG RTQ4H NEB (CKD) Levalbuterol HCl [...] Extremities: moves all, BUE swelling-subq emphys candice Neuro/CUSTOMER SERVICE ADVOCATE: alert, oriented X 3 Skin: subq enphysema [...] % (Auto) (14 - 44 %) 15.4 [place] % (Auto) (4 - 13 %) 8.8 Eos % (Auto) (0 - 6 %) 2.4 Baso % (Auto) (0 - 2 %) 0.5 Neut # (Auto) (2.0 - 7.6 K/mm3) 5.60 Lymph # (Auto) (1.0 - 3.8 K/mm3) 1.20 [place]barger # (Auto) (0.1 - 0.8 K/mm3) 0.69 [...] flonase Hypokalemia- replaced Caseating granuloma/fungal-final pathology-ID fo llowing Encourage IS and ambulation Will cont. Monitor closely Plan discussed with: patient, collaborating MD ( Dr. Rivera) at 1036 RPT #:[id number] END OF REPORT 2018-12-11 [facility] 10:30:00-00:00 [facility] ([facility]) Cardiovascular Surgery Prog REPORT#:[id number] REPORT STATUS: Signed DATE:12/11/18 TIME: 1030 PATIENT: AMANDA CANNON UNIT #: [id number] [address] AGE: 63 SEX: F ATTEND: Meg Rivera MD ADM AUTHOR: Oumou Stanley NP * ALL edits or amendments must be made on the [employer]/computer document * General Post-op: day 3 Status [...] Nasal cannula 12/11 822 O2 Flow Rate 1.510492 12/11 822 B/P 135/76 12/11 0813 Pulse Ox 92 12/11 08 Pulse 96 12/11 08 Resp 20 12/11 08 Temp 98.1 12/11 0715 FiO2 26 12/11 [...] Enoxaparin Sodium 40 MG Q24H SUBQ Ipratropium Butler 0.5 MG RTQ4H NEB (CKD) Levalbuterol HCl [...] Extremities: moves all, BUE swelling-subq emphys candice Neuro/CUSTOMER SERVICE ADVOCATE: alert, oriented X 3 Skin: subq enphysema [...] % (Auto) (14 - 44 %) 15.4 [place] % (Auto) (4 - 13 %) 8.8 Eos % (Auto) (0 - 6 %) 2.4 Baso % (Auto) (0 - 2 %) 0.5 Neut # (Auto) (2.0 - 7.6 K/mm3) 5.60 Lymph # (Auto) (1.0 - 3.8 K/mm3) 1.20 [place] # (Auto) (0.1 - 0.8 K/mm3) 0.69 [...] flonase Hypokalemia- replaced Caseating granuloma/fungal-final pathology-ID fo llowing Encourage IS and ambulation Will cont. Monitor closely Plan discussed with: patient, collaborating MD ( Dr. Rivera) at 1036 at 1238 RPT #:[id number] END OF REPORT 2018-12-10 [facility] 16:27:00-00:00 [facility] ([facility]) Hospitalist Progress Note REPORT#:[id number] REPORT STATUS: Signed DATE:12/10/18 TIME: 1627 PATIENT: AMANDA CANNON UNIT #: [id number] ROOM/BED: [address] : 55 AGE: 63 SEX: F ATTEND: Augustus Rivera MD ADM AUTHOR: Ana Haas MD * ALL edits or amendments must be made on the [employer]/computer document * Subjective Chief Complaint: swelling is [...] 95 12/10 1213 95 29 121/65 96 04 1134 98.0 12/10 1130 92 25 115/69 94 04/ 1013 92 16 112/72 96 / 0913 94 33 111/74 04/ 0806 81 31 129/84 96 / 0800 95 / 0748 Nasal 4.290988 cannula 12/10 0745 97.8 12/10 0715 94 Nasal 4.715529 36 cannula 12/10 0713 82 35 119/77 04 0700 94 12/10 0613 84 20 125/88 101 97 04/ 0513 82 30 118/73 91 97 04/ 0423 79 17 117/73 89 96 04/01 0400 98.2 Nasal 2.574172 cannula 12/10 0313 78 39 134/70 98 100 04/01 0213 80 26 145/65 93 92 04/ 0100 79 33 131/96 108 92 04/01 0030 78 20 139/71 98 97 04/01 0000 98.2 Nasal 2.504305 cannula 04/ 0000 82 17 140/73 101 94 12/09 2330 94 28 126/91 105 95 12/09 2300 88 23 146/76 102 95 12/09 2230 88 17 145/77 105 96 12/09 2199 101 21 145/71 100 94 12/09 2129 102 23 131/83 99 96 12/09 2109 107 35 148/85 111 96 12/09 2029 103 19 154/72 100 95 12/10 1999 97.0 Nasal 2.690791 cannula 12/10 1999 Nasal 2.665088 cannula 12/10 1999 102 19 135/77 100 97 12/09 1900 100 12 121/75 91 100 12/09 1837 100 Nasal 4.693508 36 cannula 12/09 1829 103 27 136/75 101 93 12/09 1800 102 14 132/71 97 97 12/09 1730 103 12 130/94 106 99 12/09 1700 99 14 130/78 97 92 24 hour I O ending at 0700: 12/10 0712/09 1900 Intake Total 450 280 Output Total [...] all, normal capillary refill Musculoskeletal: normal inspection Neuro/CUSTOMER SERVICE ADVOCATE: alert, oriented X 3 Skin: subq emphysema (face, neck and chest ), dr y, intact Wound/incision: Site Condition: dressing clean dry, dressing in tact Results Findings/Data: Laboratory Tests 12/10 499 Chemistry [...] (8.4 - 10.2 MG/DL) 8.7 Laboratory Tests 04/01 0500 Hematology WBC (3.8 - 9.8 K/MM3) [...] % (Auto) (14 - 44 %) 15.3 [place] % (Auto) (4 - 13 %) 9.8 Eos % (Auto) (0 - 6 %) 2.3 Baso % (Auto) (0 - 2 %) 0.3 Neut # (Auto) (2.0 - 7.6 K/mm3) 5.21 Lymph # (Auto) (1.0 - 3.8 K/mm3) 1.12 [place]barger # (Auto) (0.1 - 0.8 K/mm3) 0.72 [...] under Provider comments. _ Nursing Documentation Date federico inserted: 11/30/18 Date william discontinued: 12/01/18 _ [...] oxygen, nebs management per [facility] ppx: [facility] [place] 12/03 pt is stable, transfer out icu cont chest tube cont cont management 12/04 transferred back to ICU bc of sq emphysema- CV s x following Chest Xray shows worsening s ubcutaneous emphysema otherwise stable appearance of the chest Cont Chest tube Cont current management on clear liquid diet. DVT prophylaxis: [facility] 12/05 -Chest Xray shows worsening subcutaneous emphysema and development of bibasilar atelectasis and questionable small pneumomediast inum. 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 -Cont Current management -DVT prophylaxis: [facility] 12/06 -Chest X ray shows overall i [...] Ana Haas MD on 11/27 at 1305 [facility] #:[id number] END OF REPORT 2018-12-10 [facility] 10:37:00-00:00 [facility] ([facility]) Cardiovascular Surgery Prog REPORT#:[id number] REPORT STATUS: Signed DATE:12/10/18 TIME: 1037 PATIENT: AMANDA CANNON UNIT #: [id number] ROOM/BED: [address] : 55 AGE: 63 SEX: F ATTEND: Augustus Rivera MD ADM AUTHOR: Oumou Stanley NP * ALL edits or amendments must be made on the [employer]/computer document * General Post-op: day 2 Status [...] Nasal cannula 12/10 0748 O2 Flow Rate 4.321745 12/10 0748 Temp 97.8 12/10 0745 FiO2 36 12/10 0715 B/P Mean 101 12/10 0613 24 hour I O ending at 0700: 12/10 0700 12/09 1900 Intake Total 450 280 Output Total 1300 640 Balance -850 -360 Intake, Oral 450 280 Output, Urine 1300 640 Medications: Active Meds + DC'd Last 24 Hrs Ipratropium Butler 0.5 MG RTQ4H NEB (CKD) Levalbuterol HCl [...] Extremities: moves all, BUE swelling-subq emphys candice Neuro/CUSTOMER SERVICE ADVOCATE: alert, oriented X 3 Skin: subq enphysema [...] % (Auto) (14 - 44 %) 15.3 [place] % (Auto) (4 - 13 %) 9.8 Eos % (Auto) (0 - 6 %) 2.3 Baso % (Auto) (0 - 2 %) 0.3 Neut # (Auto) (2.0 - 7.6 K/mm3) 5.21 Lymph # (Auto) (1.0 - 3.8 K/mm3) 1.12 [place]ger # (Auto) (0.1 - 0.8 K/mm3) 0.72 [...] collaborating MD ( Dr. Rivera) at 1045 [facility] #:[id number] END OF REPORT 2018-12-10 [facility] 10:37:00-00:00 [facility] ([facility]) Cardiovascular Surgery Prog REPORT#:[id number] REPORT STATUS: Signed DATE:12/10/18 TIME: 1037 PATIENT: AMANDA CANNON UNIT #: [id number] ROOM/BED: [address] : 55 AGE: 63 SEX: F ATTEND: Augustus Rivera MD ADM AUTHOR: Oumou Stanley NP * ALL edits or amendments must be made on the [employer] document * General Post-op: day 2 Status [...] Documented: Result Date Time B/P 111/74 12/10 09 Pulse 94 12/10 0913 Resp 33 12/10 0913 Pulse Ox 96 12/10 0806 O2 Delivery Nasal cannula 12/10 0748 O2 Flow Rate 4.046352 12/10 0748 Temp 97.8 12/10 0745 FiO2 36 12/10 0715 B/P Mean 101 12/10 0613 24 hour I O ending at 0700: 12/10 0700 12/09 1900 Intake Total 450 280 Output Total 1300 640 Balance -850 -360 Intake, Oral 450 280 Output, Urine 1300 640 Medications: Active Meds + DC'd Last 24 Hrs Ipratropium Butler 0.5 MG RTQ4H NEB (CKD) Levalbuterol HCl [...] Extremities: moves all, BUE swelling-subq emphys candice Neuro/CUSTOMER SERVICE ADVOCATE: alert, oriented X 3 Skin: subq enphysema Results Findings/Data: Laboratory Tests 12/10 499 Chemistry [...] - 10.2 MG/DL) 8.7 Laboratory Tests 12/10 499 Hematology WBC (3.8 - 9.8 K/MM3) 7.3 [...] % (Auto) (14 - 44 %) 15.3 [place] % (Auto) (4 - 13 %) 9.8 Eos % (Auto) (0 - 6 %) 2.3 Baso % (Auto) (0 - 2 %) 0.3 Neut # (Auto) (2.0 - 7.6 K/mm3) 5.21 Lymph # (Auto) (1.0 - 3.8 K/mm3) 1.12 [place] # (Auto) (0.1 - 0.8 K/mm3) 0.72 [...] air leak today Caseating granuloma/fungal-final pathology-ID jonn raulito Encourage IS and ambulation Will cont. Monitor closely Plan discussed with: patient, collaborating MD ( Dr. Rivera) at 1045 at 1237 [facility] #:[id number] END OF REPORT 2018-12-10 [facility] 07:50:00-00:00 [facility] ([facility] Cardiology Progress Note REPORT#:[id number] REPORT STATUS: Signed DATE:12/10/18 TIME: 0750 PATIENT: AMANDA CANNON UNIT #: [id number] ROOM/BED: [address] : [address] AGE: 63 SEX: F ATTEND: Meg Rivera MD ADM AUTHOR: Miguel Chawla MD * ALL edits or amendments must be made on the [employer] document * Subjective Chief Complaint: no CP, [...] low FiO2 Mean Ox Delivery Rate 12/10 0745 97.8 12/10 0715 94 Nasal 4.240025 36 cannula 12/10 0613 84 20 125/88 101 97 12/10 0513 82 30 118/73 91 97 12/10 0423 79 17 117/73 89 96 12/10 0400 98.2 Nasal 2.659660 cannula 12/10 0313 78 39 134/70 98 100 04 0213 80 26 145/65 93 92 12/10 0100 79 33 131/96 108 92 04 0030 78 20 139/71 98 97 04/ 0000 98.2 Nasal 2.839732 cannula 12/10 0000 82 17 140/73 101 94 12/09 2330 94 28 126/91 105 95 12/09 2300 88 23 146/76 102 95 12/090 88 17 145/77 105 96 12/090 101 21 145/71 100 94 12/09 2129 102 23 131/83 99 96 12/09 2109 107 35 148/85 111 96 12/09 2029 103 19 154/72 100 95 12/10 1999 97.0 Nasal 2.727067 cannula 12/10 1999 Nasal 2.162374 cannula 12/10 1999 102 19 135/77 100 97 12/09 1900 100 12 121/75 91 100 12/09 1837 100 Nasal 4.310679 36 cannula 12/09 1830 103 27 136/75 [...] 0900 92 13 86 12/09 0801 Nasal 4.184861 cannula 12/09 0800 87 14 88 12/09 [...] peripheral pulses Musculoskeletal: full range of motion Neuro/[employer]: alert, oriented X 3, CN II-XII intact , no motor deficits Skin: abnormal color (S/Q emphysema) Psychiatry: normal affect, normal judgment/insig ht, normal mood, no hallucinations Results Findings/Data: Laboratory Tests 12/10 0500 Chemistry [...] % (Auto) (14 - 44 %) 15.3 Wilbarger % (Auto) (4 - 13 %) 9.8 Eos % (Auto) (0 - 6 %) 2.3 Baso % (Auto) (0 - 2 %) 0.3 Neut # (Auto) (2.0 - 7.6 K/mm3) 5.21 Lymph # (Auto) (1.0 - 3.8 K/mm3) 1.12 Wilbarger # (Auto) (0.1 - 0.8 K/mm3) 0.72 [...] current medical rx. Ambulate at 1813 RPT #:[id number] END OF REPORT 2018-12-09 [facility] 16:51:00-00:00 [facility] ([facility]) Hospitalist Progress Note REPORT#:[id number] REPORT STATUS: Signed DATE:12/09/18 TIME: 1650 PATIENT: AMANDA CANNON UNIT #: [id number] ROOM/BED: [address] : 55 AGE: 63 SEX: F ATTEND: Augustus Rivera MD ADM AUTHOR: Ana Haas MD * ALL edits or amendments must be made on the [employer]/computer document * Subjective Chief Complaint: swelling is [...] 0900 92 13 86 12/09 0801 Nasal 4.652332 cannula 12/09 0800 87 14 88 12/09 0757 97.0 12/09 0701 80 15 141/76 102 100 12/09 0645 94 Nasal 4.355232 36 cannula 12/09 0643 84 16 168/71 102 96 12/09 0519 74 9 127/68 89 98 12/09 0419 71 11 127/73 95 98 12/09 0400 97.7 Simple 2.855797 mask 12/09 0325 71 11 130/81 95 99 12/09 0219 74 11 133/64 92 89 12/09 0127 73 11 131/83 100 90 12/09 0019 72 11 147/93 112 95 12/09 0000 97.4 Nasal 2.463495 cannula 12/08 2319 78 11 135/90 108 100 12/08 2200 108 20 154/80 109 94 12/08 2134 145/89 110 12/08 2100 92 36 140/84 107 94 12/08 2030 92 16 143/80 102 90 12/09 1999 98.3 Nasal 2.082786 cannula 12/09 1999 Nasal 2.449026 cannula 12/09 1999 90 15 120/79 95 88 12/08 1937 95 18 128/84 101 91 12/08 1900 94 30 109/75 86 93 12/08 1837 100 Nasal 4.374928 36 cannula 12/08 1830 95 23 106/77 [...] all, normal capillary refill Musculoskeletal: normal inspection Neuro/CUSTOMER SERVICE ADVOCATE: alert, oriented X 3 Skin: subq emphysema (face, neck and chest ), dr amy, intact Wound/incision: Site Condition: dressing clean dry, dressing in tact Results Findings/Data: Laboratory Tests 12/10 535 Chemistry [...] % (Auto) (14 - 44 %) 14.1 Wilbarger % (Auto) (4 - 13 %) 8.6 Eos % (Auto) (0 - 6 %) 2.0 Baso % (Auto) (0 - 2 %) 0.3 Neut # (Auto) (2.0 - 7.6 K/mm3) 5.86 Lymph # (Auto) (1.0 - 3.8 K/mm3) 1.11 Wilbarger # (Auto) (0.1 - 0.8 K/mm3) 0.68 [...] pneumomediast inum. 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 -Cont Current management -DVT [...] attest that the foregoing medication list in [facility] medical record is true, accurate, and complete to the best of my knowled ge. Electronically Signed by Ana Haas MD on 11/27 at 1304 RPT #:[id number] END OF REPORT 2018-12-09 [facility] 11:15:00-00:00 [facility] ([facility]) Cardiology Progress Note REPORT#:[id number] REPORT STATUS: Signed DATE:12/09/18 TIME: 1115 PATIENT: AMANDA CANNON UNIT #: [id number] ROOM/BED: [address] : 55 AGE: 63 SEX: F ATTEND: Augustus Rivera MD ADM AUTHOR: Miguel Chawla MD * ALL edits or amendments must be made on the [employer]/computer document * Subjective Chief Complaint: no CP, [...] Mean Ox Delivery Rate 12/09 0801 Nasal 4.317936 cannula 12/09 0757 97.0 12/09 0701 80 15 141/76 102 100 12/09 0645 94 Nasal 4.202662 36 cannula 12/09 0643 84 16 168/71 102 96 12/09 0519 74 9 127/68 89 98 12/09 0419 71 11 127/73 95 98 12/09 0400 97.7 Simple 2.830423 mask 12/09 0325 71 11 130/81 95 99 12/09 0219 74 11 133/64 92 89 12/09 0127 73 11 131/83 100 90 12/09 0019 72 11 147/93 112 95 12/09 0000 97.4 Nasal 2.435943 cannula 12/08 2319 78 11 135/90 108 100 12/08 2200 108 20 154/80 109 94 12/08 2134 145/89 110 12/08 2100 92 36 140/84 107 94 12/08 2030 92 16 143/80 102 90 12/09 1999 98.3 Nasal 2.592534 cannula 12/09 1999 Nasal 2.480708 cannula 12/09 1999 90 15 120/79 95 88 12/08 1937 95 18 128/84 101 91 12/08 1900 94 30 109/75 86 93 12/08 1837 100 Nasal 4.303869 36 cannula 12/08 1830 95 23 106/77 [...] 94 12/08 1400 86 11 120/64 85 0330 1330 86 11 130/70 92 90 12/08 [...] peripheral pulses Musculoskeletal: full range of motion Neuro/CUSTOMER SERVICE ADVOCATE: alert, oriented X 3, CN II-XII intact [...] % (Auto) (14 - 44 %) 14.1 Wilbarger % (Auto) (4 - 13 %) 8.6 Eos % (Auto) (0 - 6 %) 2.0 Baso % (Auto) (0 - 2 %) 0.3 Neut # (Auto) (2.0 - 7.6 K/mm3) 5.86 Lymph # (Auto) (1.0 - 3.8 K/mm3) 1.11 Wilbarger # (Auto) (0.1 - 0.8 K/mm3) 0.68 [...] rx. per orders Ambulate at 1812 RPT #:[id number] END OF REPORT 2018-12-09 [id number] [facility] 05:20:00-00:[address] [place] [address] PATIENT NAME: AMANDA CANNON ADMIT JOHNNY E: 11/30/18 ACCOUNT NO: [id number] ROOM NO: Z.SI04 AGE: 63 REPORT TYPE: ELECTROCARDIOGRAM SEX: F ADMITTING PHYSICIAN:Karen Vasquez MD ATTENDING PHYSICIAN:Chris Rivera MD Order: [id number] Test Reason : PVC's Test Date/Time Stamp: [place] Dec 09 2018 05:20:10 Blood Pressure : / [...] Confirmed by:ALEN BRADLEY at 0820 PATIENT NAME: AMANDA CANNON 2018-12-08 [facility] 15:23:00-00:00 [facility] ([facility] Hospitalist Progress Note REPORT#:[id number] REPORT STATUS: Signed DATE:12/08/18 TIME: 1523 PATIENT: AMANDA CANNON UNIT #: [id number] ROOM/BED: [address] : 55 AGE: 63 SEX: F ATTEND: Augustus Rivera MD ADM AUTHOR: Ana Haas MD * ALL edits or amendments must be made on the [employer]/computer document * Subjective Chief Complaint: still a [...] F low FiO2 Mean Ox Delivery Rate 03/30 1430 82 12 119/77 94 03/30 1400 86 11 120/64 85 03/30 1330 86 11 130/70 92 90 03/30 1259 85 16 105/64 77 89 03/30 1241 97.8 03/30 1231 88 15 107/64 81 91 03/30 1216 91 19 127/77 98 93 03/30 1146 86 14 121/84 98 94 03/30 1144 87 13 143/67 97 94 03/30 1141 87 14 122/92 103 94 03/30 [...] 22 116/74 89 94 03/30 0730 Nasal 4.371379 cannula 03/30 0730 106 110/90 96 92 03/30 0704 113 135/64 89 94 03/30 0658 114 40 137/70 91 94 03/30 0644 93 Nasal 3.791636 32 cannula 03/30 0600 106 39 141/67 93 96 03/30 0530 106 25 95 03/30 0508 122/76 92 03/30 0400 97.9 Nasal 4.976486 cannula 03/30 0400 106 35 112/86 95 96 03/30 0300 104 38 120/68 83 88 03/30 0208 104 17 121/80 96 94 03/30 0100 107 42 140/98 114 90 03/30 0030 102 34 135/90 109 95 03/30 0000 98.0 Nasal 2.769008 cannula 03/30 0000 109 37 135/85 106 95 03/29 2330 112 33 127/85 101 93 03/29 2300 105 36 128/81 98 95 03/29 2230 112 32 136/89 107 94 03/ 2206 136/93 109 03/ 2200 108 42 94 / 2130 107 48 152/115 131 94 03/29 2100 107 32 158/76 109 95 03/29 2030 107 36 140/72 98 95 12/08 1999 98.4 Nasal 2.616695 cannula 12/08 1999 Nasal 2.980601 cannula 12/08 1999 102 26 126/90 102 96 12/07 1939 109 128/72 94 12/07 1909 95 Nasal 3.388970 32 cannula 12/07 1900 106 168/94 120 [...] Chloride 20 MEQ Q2H PO (DC) Ipratropium Butler 0.5 MG RTQ4H NEB (CKD) Levalbuterol HCl [...] all, normal capillary refill Musculoskeletal: normal inspection Neuro/CUSTOMER SERVICE ADVOCATE: alert, oriented X 3 Skin: subq emphysema [...] Excess (-3.0 - 3.0 MMOL/L) 5.0 H Rafa Test (CHECK) N/A O2 Delivery Device N/C [...] (Auto) (14 - 44 %) 9.3 L Wilbarger % (Auto) (4 - 13 %) 8.8 Eos % (Auto) (0 - 6 %) 1.8 Baso % (Auto) (0 - 2 %) 0.3 Neut # (Auto) (2.0 - 7.6 K/mm3) 8.04 H Lymph # (Auto) (1.0 - 3.8 K/mm3) 0.94 L Wilbarger # (Auto) (0.1 - 0.8 K/mm3) 0.89 [...] the extensive overlying subcutaneous emphysema Impression By: [email or web address] - Chano Cherry MD Treatment Prophylaxis Treatment Prophylaxis William documentation: The data below has been impo rted from nursing documentation. Any exceptions have been noted below under Provider comments. _ Nursing Documentation Date federico inserted: 11/30/18 Date william discontinued: 12/01/18 _ [...] pneumomediast inum. 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 -Cont Current management -DVT [...] Ana Haas MD on at 1535 RPT #:[id number] END OF REPORT 2018-12-08 [id number] [facility] 11:26:00-00:[address] [place] [address] PATIENT NAME: AMANDA CANNON ADMIT JOHNNY E: 11/30/18 ACCOUNT NO: [id number] ROOM NO: Z.SI04 AGE: 63 REPORT TYPE: [...] PROCEDURE: Right chest tube insertion, #32-[place]ren[place] chest tube. SURGEON: Chris Rivera MD WOOL HAT SANDING MACHINE OPERATOR: None. ANESTHESIA: MAC local. COMPLICATIONS: None. DISPOSITION: [...] under press ure. We then placed a 32-[place] chest tube, it was secured with 0 [...] By: Chris Rivera MD WT: OP:IVETT/SOPHIA/JANNIE Conf#: [id number]/DID#: [id number] PATIENT NAME: AMANDA CANNON cc: Alen Hanson MD Authenticated by Chris Rivera MD On 019 07:39:42 AM at 0739 PATIENT NAME: AMANDA CANNON 2018-12-08 [id number] [facility] 07:06:00-00:[address] [place], [place] [id number] PATIENT NAME: AMANDA CANNON ADMIT JOHNNY E: 11/30/18 ACCOUNT NO: [id number] ROOM NO: Z.SI04 AGE: 63 REPORT TYPE: ELECTROCARDIOGRAM SEX: F ADMITTING PHYSICIAN:Karen Vasquez MD ATTENDING PHYSICIAN:Chris Rivera MD Order: [id number] Test Reason : CAD Test Date/Time Stamp: [...] By: Chris Rivera Confirmed by:ALEN BRADLEY at 0759 PATIENT NAME: AMANDA CANNON 2018-12-08 [id number] [facility] 07:06:00-00:[address] [place] [address] PATIENT NAME: AMANDA CANNON ADMIT JOHNNY E: 11/30/18 ACCOUNT NO: [id number] ROOM NO: Z.SI04 AGE: 63 REPORT TYPE: ELECTROCARDIOGRAM SEX: F ADMITTING PHYSICIAN:Karen Vasquez MD ATTENDING PHYSICIAN:Chris Rivera MD Order: [id number] Test Reason : CAD Test Date/Time Stamp: [...] Confirmed by:ALEN BRADLEY at 1137 PATIENT NAME: AMANDA CANNON 2018-12-08 [id number] [facility] 07:05:00-00:[address] [place] [address] PATIENT NAME: AMANDA CANNON ADMIT JOHNNY E: 11/30/18 ACCOUNT NO: [id number] ROOM NO: Z.SI04 AGE: 63 REPORT TYPE: ELECTROCARDIOGRAM SEX: F ADMITTING PHYSICIAN:Karen Vasquez MD ATTENDING PHYSICIAN:Chris Rivera MD Order: [id number] Test Reason : CAD Test Date/Time Stamp: [...] Confirmed by:ALEN BRADLEY at 0752 PATIENT NAME: AMANDA CANNON 2018-12-08 [id number] [facility] 07:05:00-00:[address] [place] [address] PATIENT NAME: AMANDA CANNON ADMIT JOHNNY E: 11/30/18 ACCOUNT NO: [id number] ROOM NO: Z.SI04 AGE: 63 REPORT TYPE: ELECTROCARDIOGRAM SEX: F ADMITTING PHYSICIAN:Karen Vasquez MD ATTENDING PHYSICIAN:Chris Rivera MD Order: [id number] Test Reason : CAD Test Date/Time Stamp: [...] Confirmed by:ALEN BRADLEY at 1137 PATIENT NAME: AMANDA CANNON 2018-12-08 [facility] 06:17:00-00:00 [facility] ([facility] Cardiology Progress Note REPORT#:[id number] REPORT STATUS: Signed DATE:12/08/18 TIME: 06 PATIENT: AMANDA CANNON UNIT #: [id number] ROOM/BED: [address] : 55 AGE: 63 SEX: F ATTEND: Augustus Rivera MD ADM AUTHOR: Alen Hanson MD * ALL edits or amendments must be made on the [employer] document * Subjective Chief Complaint: no CP, [...] 2100 107 32 158/76 109 95 12/07 2030 107 36 140/72 98 95 12/08 1999 102 26 126/90 102 96 12/07 1939 109 128/72 94 12/07 1909 95 Nasal 3.989693 32 cannula 12/07 1900 106 168/94 120 [...] 91 98 12/07 1200 97.3 97 Nasal 2.429319 cannula 12/07 1130 81 25 132/79 98 98 12/07 1100 82 24 141/70 99 96 12/07 1030 83 131/74 94 98 12/07 1000 85 132/70 96 98 12/07 0930 81 118/82 95 95 12/07 0900 82 16 114/59 80 97 12/07 0830 80 21 132/74 95 97 12/07 0800 78 16 126/72 94 98 12/07 0730 78 34 99 12/07 0720 Nasal 4.715696 cannula 12/07 0700 78 14 93 Medications: [...] peripheral pulses Musculoskeletal: full range of motion Neuro/CUSTOMER SERVICE ADVOCATE: alert, oriented X 3, CN II-XII intact [...] - 44 %) 9.3 L 13.8 L Wilbarger % (Auto) (4 - 13 %) 8.8 9.1 Eos % (Auto) (0 - 6 %) 1.8 2.4 Baso % (Auto) (0 - 2 %) 0.3 0.3 Neut # (Auto) (2.0 - 7.6 K/mm3) 8.04 H 5.83 Lymph # (Auto) (1.0 - 3.8 K/mm3) 0.94 L 1.09 Wilbarger # (Auto) (0.1 - 0.8 K/mm3) 0.89 [...] MD on 0 12/08/18 at 0623 RPT #:[id number] END OF REPORT 2018-12-08 [id number] [facility] 04:42:00-00:00 [address] [place] [address] PATIENT NAME: AMANDA CANNON ADMIT JOHNNY E: 11/30/18 ACCOUNT NO: [id number] ROOM NO: Z.SI04 AGE: 63 REPORT TYPE: ELECTROCARDIOGRAM SEX: F ADMITTING PHYSICIAN:Karen Vasquez MD ATTENDING PHYSICIAN:Chris Rivera MD Order: [id number] Test Reason : preop Test Date/Time Stamp: [...] Confirmed by:ALEN BRADLEY at 0752 PATIENT NAME: AMANDA CANNON 2018-12-08 [id number] [facility] 04:42:00-00:00 [address] [place] [address] PATIENT NAME: AMANDA CANNON ADMIT JOHNNY E: 11/30/18 ACCOUNT NO: [id number] ROOM NO: Z.SI04 AGE: 63 REPORT TYPE: ELECTROCARDIOGRAM SEX: F ADMITTING PHYSICIAN:Karen Vasquez MD ATTENDING PHYSICIAN:Chris Rivera MD Order: [id number] Test Reason : preop Test Date/Time Stamp: [...] Confirmed by:ALEN BRADLEY at 0729 PATIENT NAME: AMANDA CANNON 2018-12-07 [facility] 16:46:00-00:00 [facility] ([facility]) Hospitalist Progress Note REPORT#:[id number] REPORT STATUS: Signed DATE:12/07/18 TIME: 1645 PATIENT: AMANDA CANNON UNIT #: [id number] ROOM/BED: [address] : 55 AGE: 63 SEX: F ATTEND: Augustus Rivera MD ADM AUTHOR: Ana Haas MD * ALL edits or amendments must be made on the [employer] document * Subjective Chief Complaint: eyes a [...] 91 98 12/07 1200 97.3 97 Nasal 2.500768 cannula 12/07 1130 81 25 132/79 98 98 12/07 1100 82 24 141/70 99 96 12/07 1030 83 131/74 94 98 12/07 1000 85 132/70 96 98 12/07 0930 81 118/82 95 95 12/07 0900 82 16 114/59 80 97 12/07 0830 80 21 132/74 95 97 12/07 0800 78 16 126/72 94 98 12/07 0730 78 34 99 12/07 0720 Nasal 4.086463 cannula 12/07 0700 78 14 93 12/07 [...] 2107 98 34 129/57 85 96 12/06 2007 105 29 145/58 85 96 12/07 1999 97.2 12/06 1943 94 Nasal 3.704886 32 cannula 12/06 1930 Nasal 4.188361 cannula 12/06 1920 107 24 143/77 104 [...] all, normal capillary refill Musculoskeletal: normal inspection Neuro/CUSTOMER SERVICE ADVOCATE: alert, oriented X 3 Skin: subq emphysema [...] (Auto) (14 - 44 %) 13.8 L [place] % (Auto) (4 - 13 %) 9.1 Eos % (Auto) (0 - 6 %) 2.4 Baso % (Auto) (0 - 2 %) 0.3 Neut # (Auto) (2.0 - 7.6 K/mm3) 5.83 Lymph # (Auto) (1.0 - 3.8 K/mm3) 1.09 Wilbarger # (Auto) (0.1 - 0.8 K/mm3) 0.72 [...] Report Impression - Status: SIGNED Entered: 12/07/2018 9127 IMPRESSION: No acute findings or changes in [...] pneumomediast inum. 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 -Encourage IS and ambulation -Granddaughter at bedside -Caseating granuloma/fungal-final pathology-ID c onsulted -Cont Chest tube -Cont current management -DVT prophylasix-lovenox 3/29- cxr same. - pt NPO for possible OR today by dr Rivera - will continue with current supportive care. Quality Medications Current medication review: I attest that the foregoing medication list in t he medical record is true, accurate, and complete to the best of my knowled ge. Electronically Signed by Ana Haas MD on at 1535 RPT #:[id number] END OF REPORT 2018-12-07 [facility] 10:50:00-00:00 [facility] ([facility]) Cardiovascular Surgery Prog REPORT#:[id number] REPORT STATUS: Signed DATE:12/07/18 TIME: 1050 PATIENT: AMANDA CANNON UNIT #: [id number] ROOM/BED: [address] : 55 AGE: 63 SEX: F ATTEND: Augustus Rivera MD ADM AUTHOR: Oumou Stanley PEDIATRICIAN MANAGING PARTNER * ALL edits or amendments must be made on the [employer]/computer document * General Post-op: day 7 Status [...] Nasal cannula 12/07 0720 O2 Flow Rate 4.499528 12/07 0720 Temp 97.5 12/07 0000 FiO2 [...] Extremities: moves all, BUE swelling-subq emphys candice Neuro/CUSTOMER SERVICE ADVOCATE: alert, oriented X 3 Skin: subq enphysema Results Radiology data: Recent Impressions: RADIOLOGY - XR CHEST 1V 12/07 0540 Report Impression - Status: SIGNED Entered: 12/07/2018 0873 IMPRESSION: No acute findings or changes in [...] latisha ASCENCIO (Dr. Rivera) at 1058 RPT #:[id number] END OF REPORT 2018-12-07 [facility] 10:50:00-00:00 [facility] Cardiovascular Surgery Prog REPORT#:[id number] REPORT STATUS: Signed DATE:12/07/18 TIME: 1050 PATIENT: AMANDA CANNON UNIT #: [id number] ROOM/BED: [address] : 55 AGE: 63 SEX: F ATTEND: Augustus Rivera MD ADM AUTHOR: Oumou Stanley NP * ALL edits or amendments must be made on the [employer]/computer document * See Addendum General Post-op: day [...] Nasal cannula 12/07 0720 O2 Flow Rate 4.998709 12/07 0720 Temp 97.5 12/07 0000 FiO2 [...] Extremities: moves all, BUE swelling-subq emphys candice Neuro/CUSTOMER SERVICE ADVOCATE: alert, oriented X 3 Skin: subq enphysema Results Radiology data: Recent Impressions: RADIOLOGY - XR CHEST 1V 12/07 0540 Report Impression - Status: SIGNED Entered: 12/07/2018 0835 IMPRESSION: No acute findings or changes in the chest. Impression By: [facility] Rosalinda Ghosh M.D. Diagnosis, Assessment Plan Free [...] Plan d/w Dr. Rivera at 1807 RPT #:[id number] END OF REPORT 2018-12-07 [facility] 10:50:00-00:00 [facility] ([facility]) Cardiovascular Surgery Prog REPORT#:[id number] REPORT STATUS: Signed DATE:12/07/18 TIME: 1050 PATIENT: AMANDA CANNON UNIT #: [id number] [address] : [address] AGE: 63 SEX: F ATTEND: Augustus Rivera MD ADM AUTHOR: Oumou Stanley NP * ALL edits or amendments must be made on the el [employer]/computer document * See Addendum General Post-op: day [...] Nasal cannula 12/07 0720 O2 Flow Rate 4.712816 12/07 0720 Temp 97.5 12/07 0000 FiO2 [...] Extremities: moves all, BUE swelling-subq emphys candice Neuro/CUSTOMER SERVICE ADVOCATE: alert, oriented X 3 Skin: subq enphysema Results Radiology data: Recent Impressions: RADIOLOGY - XR CHEST 1V 12/07 0540 Report Impression - Status: SIGNED Entered: 12/07/2018 0835 IMPRESSION: No acute findings or changes in the chest. Impression By: [facility] Rosalinda Ghosh M.D. Diagnosis, Assessment Plan Free [...] family, collaborat latisha ASCENCIO (Dr. Rivera) at 8094 at 8543 Addendum 1: 12/07/18 1805 by Oumou Stanley NP A/P Plan is for right chest tube insertion tomorrow OK to resume regular diet for dinner NPo after midnight D/c lovenox Dr. Rivera to follw. Plan d/w Dr. Rivera at 1807 at 6986 RPT #:[id number] END OF REPORT 2018-12-07 [facility] 06:56:00-00:00 [facility] ([facility]) Cardiology Progress Note REPORT#:[id number] REPORT STATUS: Signed DATE:12/07/18 TIME: 06 PATIENT: AMANDA CANNON UNIT #: [id number] ROOM/BED: [address] : 55 AGE: 63 SEX: F ATTEND: Augustus Rivera MD ADM AUTHOR: Miguel Chawla MD * ALL edits or amendments must be made on the [employer]/computer document * Subjective Chief Complaint: post-op CP, [...] 12/06 2207 81 32 140/75 100 98 12/067 98 34 129/57 85 96 03/28 2007 105 29 145/58 85 96 12/07 1999 97.2 12/06 1943 94 Nasal 3.843741 32 cannula 12/06 1930 Nasal 4.372778 cannula 12/06 1920 107 24 143/77 104 96 12/06 1807 103 25 139/79 99 96 12/06 1725 28 12/06 1707 103 34 133/82 101 94 12/06 1607 110 132/77 99 92 12/06 1600 97.6 12/06 1507 104 33 142/80 106 95 12/06 1407 104 131/96 108 93 12/06 1307 105 24 139/73 100 92 12/06 1245 94 Nasal 2.027771 28 cannula 12/06 1207 101 28 125/84 101 93 12/06 1200 97.4 12/06 1107 111 115/68 85 93 12/06 1100 25 12/06 1007 104 131/81 99 94 12/06 0907 102 31 125/71 92 93 12/06 0800 97.4 12/06 0800 Venti mask 8.425033 12/06 0757 103 154/64 92 88 12/06 0727 93 25 163/81 116 99 12/06 0722 32 Nasal 3.713304 94 cannula Status post: Robotic assisted excision [...] peripheral pulses Musculoskeletal: full range of motion Neuro/CUSTOMER SERVICE ADVOCATE: alert, oriented X 3, CN II-XII intact [...] Continue current medical rx. Ambulate at 0717 [facility] #:[id number] END OF REPORT 2018-12-06 [id number] [facility] 20:49:00-00:00 [address] [place] [address] PATIENT NAME: AMANDA CANNON ADMIT JOHNNY E: 11/30/18 ACCOUNT NO: [id number] ROOM NO: Z.SI04 AGE: 63 REPORT TYPE: [...] afternoon. Dictated By: Chris Rivera MD WT: PN:ZHUI/SOPHIA/JANNIE Conf#: [id number]/DID#: [id number] Authenticated by Chris Rivera MD On 019 07:39:27 AM at 0739 PATIENT NAME: AMANDA CANNON 2018-12-06 [id number] [facility] 16:15:00-00:00 [address] [place] [address] PATIENT NAME: AMANDA CANNON ADMIT JOHNNY E: 11/30/18 ACCOUNT NO: [id number] ROOM NO: Z.SI04 AGE: 63 REPORT TYPE: [...] No cough or sputum production. PATIENT NAME: AMANDA CANNON GASTROINTESTINAL: No nausea, vomiting, or diarrh [...] bedside. Dictated By: Angie Montes MD WT: CON:IVETT/LORI/JANNIE Conf#: [id number]/DID#: [id number] Authenticated by Angie Montes MD On 12/23/2018 1 2:26:06 PM Electronically Signed by Angie Montes MD on at 1226 PATIENT NAME: AMANDA CANNON 2018-12-06 [facility] 11:47:00-00:00 [facility] ([facility] Hospitalist Progress Note REPORT#:[id number] REPORT STATUS: Signed DATE:12/06/18 TIME: 1147 PATIENT: AMANDA CANNON UNIT #: [id number] ROOM/BED: [facility] : 55 AGE: 63 SEX: F ATTEND: Augustus Rivera MD ADM AUTHOR: Ana Haas MD * ALL edits or amendments must be made on the el [employer]/computer document * Subjective Chief Complaint: Breathing is [...] Ox Delivery Rate 12/06 1245 94 Nasal 2.104583 28 cannula 12/06 0722 32 Nasal 3.860895 94 cannula 12/06 0600 105 33 90 [...] 12/05 2151 90 26 134/74 97 95 12/055 17 12/054 92 33 96 12/051 95 Nasal 4.672602 36 cannula 12/06 1999 97.5 12/05 1930 Nasal 4.147506 cannula 12/05 1640 100 20 123/86 98 97 Nasal 4.349856 cannula 12/05 1553 97.3 24 hour I [...] all, normal capillary refill Musculoskeletal: normal inspection Neuro/CUSTOMER SERVICE ADVOCATE: alert, oriented X 3 Skin: subq emphysema [...] management on clear liquid diet. DVT prophylaxis: [facility] 12/05 -Chest Xray shows worsening subcutaneous emphysema and development of bibasilar atelectasis and questionable small pneumomediast inum. 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 -Cont Current management -DVT prophylaxis: [facility] 12/06 -Chest X ray shows overall i [...] Ana Haas MD on at 1535 RPT #:[id number] END OF REPORT 2018-12-06 [facility] 10:20:00-00:00 [facility] ([facility]) Cardiovascular Surgery Prog REPORT#:[id number] REPORT STATUS: Signed DATE:12/06/18 TIME: 1020 PATIENT: AMANDA CANNON UNIT #: [id number] ROOM/BED: Z.SI04-A : 55 AGE: 63 SEX: F ATTEND: Augustus Rivera MD ADM AUTHOR: Oumou Stanley P[employer]IATRICIAN MANAGING [employer]NER * ALL edits or amendments must be made on the [employer] document * General Post-op: day 6 Status [...] Nasal cannula 12/06 07 O2 Flow Rate [id number] 12/06 07 Pulse 105 12/06 0600 Resp 33 12/06 [...] Extremities: moves all, BUE swelling-subq emphys candice Neuro/CUSTOMER SERVICE ADVOCATE: alert, oriented X 3 Skin: subq enphysema [...] % (Auto) (14 - 44 %) 14.7 [place]ger % (Auto) (4 - 13 %) 8.6 Eos % (Auto) (0 - 6 %) 2.1 Baso % (Auto) (0 - 2 %) 0.2 Neut # (Auto) (2.0 - 7.6 K/mm3) 6.45 Lymph # (Auto) (1.0 - 3.8 K/mm3) 1.28 [place]barger # (Auto) (0.1 - 0.8 K/mm3) 0.75 Eos # (Auto) (0.0 - 0.2 K/mm3) 0.18 Baso # (Auto) (0.0 - 0.2 K/mm3) 0.02 Immature Gran % (0.0 - 2.0 %) 0.5 Nucleated RBC % (0 - 1.0 %) 0.0 Nucleated RBCs # (Man) (0.0 - 0.1 K/mm3) 0.00 Radiology data: Recent Impressions: RADIOLOGY - XR CHEST 1V 12/06 0540 Report Impression - Status: SIGNED Entered: 12/06/2018 0755 IMPRESSION: Overall improved appearance of the c hest with no unfavorable findings over 2 days. Impression By: [facility] Rosalinda Ghosh M.D. Diagnosis, Assessment Plan Free [...] MD ( Dr. Rivera) at 2206 RPT #:[id number] END OF REPORT 2018-12-06 [facility] [facility]-00[facility]00 [facility] ([facility]) Cardiovascular Surgery Prog REPORT#:[id number] REPORT STATUS: Signed DATE:12/06/18 TIME: 1020 PATIENT: AMANDA CANNON UNIT #: [id number] ROOM/BED: [address] : 55 AGE: 63 SEX: F ATTEND: Augustus Rivera MD ADM AUTHOR: Oumou Stanley NP * ALL edits or amendments must be made on the [employer]/computer document * General Post-op: day 6 Status [...] Nasal cannula 12/06 0722 O2 Flow Rate 3.437258 12/06 0722 Pulse 105 12/06 0600 Resp [...] Extremities: moves all, BUE swelling-subq emphys candice Neuro/CUSTOMER SERVICE ADVOCATE: alert, oriented X 3 Skin: subq enphysema [...] % (Auto) (14 - 44 %) 14.7 Wilbarger % (Auto) (4 - 13 %) 8.6 Eos % (Auto) (0 - 6 %) 2.1 Baso % (Auto) (0 - 2 %) 0.2 Neut # (Auto) (2.0 - 7.6 K/mm3) 6.45 Lymph # (Auto) (1.0 - 3.8 K/mm3) 1.28 Wilbarger # (Auto) (0.1 - 0.8 K/mm3) 0.75 Eos # (Auto) (0.0 - 0.2 K/mm3) 0.18 Baso # (Auto) (0.0 - 0.2 K/mm3) 0.02 Immature Gran % (0.0 - 2.0 %) 0.5 Nucleated RBC % (0 - 1.0 %) 0.0 Nucleated RBCs # (Man) (0.0 - 0.1 K/mm3) 0.00 Radiology data: Recent Impressions: RADIOLOGY - XR CHEST 1V 12/06 0540 Report Impression - Status: SIGNED Entered: 12/06/2018 9075 IMPRESSION: Overall improved appearance of the c hest with no unfavorable findings over 2 days. Impression By: JuanArthur Ghosh M.D. Diagnosis, Assessment [...] Dr. Rivera) at 2206 at 2351 RPT #:[id number] END OF REPORT 2018-12-06 [facility] 06:55:00-00:00 [facility] Cardiology Progress Note REPORT#:[id number] REPORT STATUS: Signed DATE:12/06/18 TIME: 654 PATIENT: AMANDA CANNON UNIT #: [id number] ROOM/BED: [address] : 55 AGE: 63 SEX: F ATTEND: Augustus Rivera MD ADM AUTHOR: Miguel Chawla MD * ALL edits or amendments must be made on the [employer] document * Subjective Chief Complaint: post-op CP, [...] 92 33 96 12/05 2020 95 Nasal 4.609859 36 cannula 12/05 2000 97.5 12/05 1930 Nasal 4.779107 cannula 12/05 1640 100 20 123/86 98 97 Nasal 4.778888 cannula 12/05 1553 97.3 12/05 1330 143/87 105 95 Nasal 4.810528 cannula 12/05 1230 98 27 120/73 88 93 Nasal 4.405632 cannula 12/05 1200 97.4 12/05 1200 120/60 80 12/05 1130 103 19 120/73 88 96 Nasal 4.181045 cannula 12/05 1100 108 28 120/58 78 100 Nasal 4.395036 cannula 12/05 1030 106 30 110/63 78 91 Nasal 4.061879 cannula 12/05 1000 106 123/74 90 93 Venti mask 10.720349 12/05 0930 98 24 131/75 93 95 Venti mask 10.0000 00 12/05 0905 97 14 97 12/05 0858 100 21 12/05 0853 98 16 98/70 80 94 12/05 0800 97.4 12/05 0800 97 22 109/67 82 92 12/05 0730 Venti mask 10.976017 35 12/05 0730 88 15 108/78 87 100 12/05 0717 97 Venti mask 10.084419 35 12/05 0700 87 26 122/82 98 [...] peripheral pulses Musculoskeletal: full range of motion Neuro/CUSTOMER SERVICE ADVOCATE: alert, oriented X 3, CN II-XII intact , no motor deficits Psychiatry: normal affect, normal judgment/insig ht, normal mood, no hallucinations Results Findings/Data: Laboratory Tests 12/06 0420 Chemistry [...] % (Auto) (14 - 44 %) 14.7 Wilbarger % (Auto) (4 - 13 %) 8.6 Eos % (Auto) (0 - 6 %) 2.1 Baso % (Auto) (0 - 2 %) 0.2 Neut # (Auto) (2.0 - 7.6 K/mm3) 6.45 Lymph # (Auto) (1.0 - 3.8 K/mm3) 1.28 Wilbarger # (Auto) (0.1 - 0.8 K/mm3) 0.75 [...] current medical rx. Ambulate at 2128 RPT #:[id number] END OF REPORT 2018-12-05 [facility] 18:20:00-00:00 [facility] ([facility]) Cardiology Progress Note REPORT#:[id number] REPORT STATUS: Signed DATE:12/05/18 TIME: 1819 PATIENT: AMANDA CANNON UNIT #: [id number] ROOM/BED: [address] : 55 AGE: 63 SEX: F ATTEND: Augustus Rivera MD ADM AUTHOR: Miguel Chawla MD * ALL edits or amendments must be made on the [employer]/computer document * Subjective Chief Complaint: post-op CP, [...] 1640 100 20 123/86 98 97 Nasal 4.388978 cannula 12/05 1553 97.3 12/05 1330 143/87 105 95 Nasal 4.243006 cannula 12/05 1230 98 27 120/73 88 93 Nasal 4.235820 cannula 12/05 1200 97.4 12/05 1200 120/60 80 12/05 1130 103 19 120/73 88 96 Nasal 4.712215 cannula 12/05 1100 108 28 120/58 78 100 Nasal 4.354815 cannula 12/05 1030 106 30 110/63 78 91 Nasal 4.064272 cannula 12/05 1000 106 123/74 90 93 Venti mask 10.452941 12/05 0930 98 24 131/75 93 95 Venti mask 10.0000 00 12/05 0905 97 14 97 / 0858 100 21 12/05 0853 98 16 98/70 80 94 / 0800 97.4 12/05 0800 97 22 109/67 82 92 / 0730 Venti mask 10.274941 35 12/05 0730 88 15 108/78 87 100 03/ 0717 97 Venti mask 10.702572 35 12/05 0700 87 26 122/82 98 93 03/ 0630 84 26 116/83 93 93 / 0600 84 24 119/78 92 94 / 0530 83 24 122/87 100 95 12/05 [...] 103 98 12/04 2215 98 Venti mask 12.807958 40 12/04 2206 91 22 127/76 90 96 12/04 2200 93 22 95 12/04 2130 95 15 118/73 89 96 12/04 2100 112 26 113/74 88 95 12/04 2030 105 13 138/79 101 96 12/05 1999 97.2 12/05 1999 100 15 146/80 107 94 12/04 1937 96 Nasal 2.898592 28 cannula 12/04 1930 96 18 142/84 107 95 12/04 1915 Nasal 4.134516 cannula 12/04 1900 101 23 145/84 100 [...] peripheral pulses Musculoskeletal: full range of motion Neuro/CUSTOMER SERVICE ADVOCATE: alert, oriented X 3, CN II-XII intact [...] Excess (-3.0 - 3.0 mmol/L) 4.3 H Rafa Test (CHECK) Y Temperature (37 C) 37.0 O2 Delivery Device N/C Liter Flow (L/MIN) 4 FiO2 (%) 36 Laboratory Tests 12/0558 2040 Chemistry Sodium (137 - 145 MMOL/L) 134 [...] (Auto) (14 - 44 %) 12.4 L Wilbarger % (Auto) (4 - 13 %) 6.2 Eos % (Auto) (0 - 6 %) 1.2 Baso % (Auto) (0 - 2 %) 0.1 Neut # (Auto) (2.0 - 7.6 K/mm3) 7.42 Lymph # (Auto) (1.0 - 3.8 K/mm3) 1.16 Wilbarger # (Auto) (0.1 - 0.8 K/mm3) 0.58 [...] Impressions: RADIOLOGY - XR CHEST 1V 12/05 0430 Report Impression - Status: SIGNED Entered: 12/05/2018 [...] current medical rx. Ambulate at 2127 RPT #:[id number] END OF REPORT 2018-12-05 [facility] 14:54:00-00:00 [facility] ([facility]) Hospitalist Progress Note REPORT#:[id number] REPORT STATUS: Signed DATE:12/05/18 TIME: 1453 PATIENT: AMANDA CANNON UNIT #: [id number] ROOM/BED: [address] : 55 AGE: 63 SEX: F ATTEND: Augustus Rivera MD ADM AUTHOR: Ana Haas MD * ALL edits or amendments must be made on the [employer]/computer document * Subjective Chief Complaint: Trouble breathing [...] ow FiO2 Mean Ox Delivery Rate 12/05 1200 97.4 12/05 0905 97 14 97 12/05 0858 100 21 12/05 0853 98 16 98/70 80 94 / 0800 97.4 / 0800 97 22 109/67 82 92 03/ 0730 Venti mask 10.848033 35 / 0730 88 15 108/78 87 100 03/ 0717 97 Venti mask 10.257562 35 / 0700 87 26 122/82 98 93 03/27 0630 84 26 116/83 93 93 03/ 0600 84 24 119/78 92 94 03/ 0530 83 24 122/87 100 95 03/ 0500 84 26 118/83 95 94 03/ 0430 88 25 128/77 98 92 12/05 0400 97.3 12/05 0400 95 34 137/82 99 93 / 0341 103 30 113/65 85 94 / 0300 102 30 117/84 97 93 / 0229 103 11 109/77 88 95 / 0212 105 17 140/75 97 91 12/05 0129 93 37 127/78 94 96 / 0100 93 19 122 96 / 0029 88 22 139/69 97 97 / 0000 97.1 12/05 0000 91 19 99/66 79 97 12/04 2346 90 26 103/70 83 96 12/04 2300 87 22 128/75 93 95 12/04 2230 89 46 133/85 103 98 12/04 2215 98 Venti mask 12.561185 40 12/04 2206 91 22 127/76 90 96 12/04 2200 93 22 95 12/04 2130 95 15 118/73 89 96 12/04 2100 112 26 113/74 88 95 12/04 2030 105 13 138/79 101 96 12/05 1999 97.2 12/05 1999 100 15 146/80 107 94 12/04 1937 96 Nasal 2.682478 28 cannula 12/04 1930 96 18 142/84 107 95 12/04 1915 Nasal 4.793658 cannula 12/04 1900 101 23 145/84 100 [...] all, normal capillary refill Musculoskeletal: normal inspection Neuro/CUSTOMER SERVICE ADVOCATE: alert, oriented X 3 Skin: subq emphysema [...] pneumomediast inum. 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 -Cont Current management -DVT prophylaxis: SCD Quality Medications Current medication review: I attest that the foregoing medication list in t he medical record is true, accurate, and complete to the best of my knowled ge. Electronically Signed by Ana Haas MD on at 1534 RPT #:[id number] END OF REPORT 2018-12-05 [facility] 09:25:00-00:00 [facility] ([facility]) Cardiovascular Surgery Prog REPORT#:[id number] REPORT STATUS: Signed DATE:12/05/18 TIME: 924 PATIENT: AMANDA CANNON UNIT #: [id number] ROOM/BED: [address] : 55 AGE: 63 SEX: F ATTEND: Augustus Rivera MD ADM AUTHOR: Oumou Stanley NP * ALL edits or amendments must be made on the [employer] document * General Post-op: day 5 Status [...] Venti mask 12/05 0717 O2 Flow Rate 10.416413 12/05 0717 Temp 97.3 12/05 0400 24 [...] Extremities: moves all, BUE swelling-subq emphys candice Neuro/CUSTOMER SERVICE ADVOCATE: alert, oriented X 3 Skin: subq enphysema [...] Excess (-3.0 - 3.0 mmol/L) 4.3 H Rafa Test (CHECK) Y Temperature (37 C) 37.0 O2 Delivery Device N/C Liter Flow (L/MIN) 4 FiO2 (%) 36 Laboratory Tests 12/05 12/04 12/04 05 2041 1330 Chemistry Sodium (137 - 145 [...] (Auto) (14 - 44 %) 12.4 L Wilbarger % (Auto) (4 - 13 %) 6.2 Eos % (Auto) (0 - 6 %) 1.2 Baso % (Auto) (0 - 2 %) 0.1 Neut # (Auto) (2.0 - 7.6 K/mm3) 7.42 Lymph # (Auto) (1.0 - 3.8 K/mm3) 1.16 Wilbarger # (Auto) (0.1 - 0.8 K/mm3) 0.58 Eos # (Auto) (0.0 - 0.2 K/mm3) 0.11 Baso # (Auto) (0.0 - 0.2 K/mm3) 0.01 Immature Gran % (0.0 - 2.0 %) 0.4 Nucleated RBC % (0 - 1.0 %) 0.0 Nucleated RBCs # (Man) (0.0 - 0.1 K/mm3) 0.00 Radiology data: Recent Impressions: RADIOLOGY - XR CHEST 1V 12/05 529 Report Impression - Status: SIGNED Entered: 12/05/2018 08 IMPRESSION: 1. Development of bibasilar atelectasis and ques tionable small pneumomediastinum. 2. Worsening subcutaneous emphysema. Impression By: [facility] Rosalinda Ghosh M.D. Diagnosis, Assessment Plan Free [...] Rivera), nurse (at bedside) at 1708 RPT #:[id number] END OF REPORT 2018-12-05 [facility] 09:25:00-00:00 [facility] ([facility]) Cardiovascular Surgery Prog REPORT#:[id number] REPORT STATUS: Signed DATE:12/05/18 TIME: 924 PATIENT: AMANDA CANNON UNIT #: [id number] ROOM/BED: [facility] : 55 AGE: 63 SEX: F ATTEND: Augustus Rivera MD ADM AUTHOR: Oumou Stanley NP * ALL edits or amendments must be made on the [employer]/computer document * General Post-op: day 5 Status [...] Venti mask 12/05 0717 O2 Flow Rate 10.085798 12/05 0717 Temp 97.3 12/05 0400 24 [...] Extremities: moves all, BUE swelling-subq emphys candice Neuro/CUSTOMER SERVICE ADVOCATE: alert, oriented X 3 Skin: subq enphysema [...] Excess (-3.0 - 3.0 mmol/L) 4.3 H Rafa Test (CHECK) Y Temperature (37 C) 37.0 [...] (Auto) (14 - 44 %) 12.4 L Wilbarger % (Auto) (4 - 13 %) 6.2 Eos % (Auto) (0 - 6 %) 1.2 Baso % (Auto) (0 - 2 %) 0.1 Neut # (Auto) (2.0 - 7.6 K/mm3) 7.42 Lymph # (Auto) (1.0 - 3.8 K/mm3) 1.16 Wilbarger # (Auto) (0.1 - 0.8 K/mm3) 0.58 [...] pneumomediastinum. 2. Worsening subcutaneous emphysema. Impression By: [facility] Rosalinda Ghosh M.D. Diagnosis, Assessment Plan Free [...] Rivera), nurse (at bedside) at 1708 at 4727 RPT #:[id number] END OF REPORT 2018-12-04 [facility] 16:49:00-00:00 [facility] ([facility]) Hospitalist Progress Note REPORT#:[id number] REPORT STATUS: Signed DATE:12/04/18 TIME: 164 PATIENT: AMANDA CANNON UNIT #: [id number] [address] AGE: 63 SEX: F ATTEND: Augustus Rivera MD ADM AUTHOR: Ana Haas MD * ALL edits or amendments must be made on the [employer] document * Subjective Chief Complaint: Trouble breathing [...] 159/94 122 96 12/04 0820 95 Nasal 3.801201 32 cannula 12/04 0800 83 38 149/91 115 95 12/04 0733 97.6 12/04 0733 Nasal 3.708191 cannula 12/04 0700 82 26 147/85 111 [...] 0030 79 12 100 12/04 0022 Nasal 2.244686 cannula 12/04 0000 82 26 97 12/03 2330 86 22 93 12/03 2300 86 25 145/79 103 95 12/03 2245 84 25 157/84 114 98 03/25 2230 85 25 156/74 107 93 12/039 85 28 141/67 96 97 12/03 2214 90 32 172/79 114 95 12/030 90 25 159/76 109 95 12/04 2015 96 Nasal 4.366049 36 cannula 12/04 1999 Nasal 3.169899 cannula 12/03 1920 92 31 94 24 [...] all, normal capillary refill Musculoskeletal: normal inspection 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 9 Laboratory Tests 12/04 0530 Hematology WBC (3.8 [...] % (Auto) (14 - 44 %) 16.7 Wilbarger % (Auto) (4 - 13 %) 7.7 Eos % (Auto) (0 - 6 %) 1.1 Baso % (Auto) (0 - 2 %) 0.3 Neut # (Auto) (2.0 - 7.6 K/mm3) 5.81 Lymph # (Auto) (1.0 - 3.8 K/mm3) 1.32 Wilbarger # (Auto) (0.1 - 0.8 K/mm3) 0.61 Eos # (Auto) (0.0 - 0.2 K/mm3) 0.09 Baso # (Auto) (0.0 - 0.2 K/mm3) 0.02 Immature Gran % (0.0 - 2.0 %) 0.5 Nucleated RBC % (0 - 1.0 %) 0.0 Nucleated RBCs # (Man) (0.0 - 0.1 K/mm3) 0.00 Radiology data: Recent Impressions: RADIOLOGY - XR CHEST 1V 12/04 0826 [...] my knowled ge. Electronically Signed by Ana Hasa MD on at 2139 RPT #:[id number] END OF REPORT 2018-12-04 [facility] 09:39:00-00:00 [facility] ([facility]) Cardiovascular Surgery Prog REPORT#:[id number] REPORT STATUS: Signed DATE:12/04/18 TIME: 09 PATIENT: AMANDA CANNON UNIT #: [id number] ROOM/BED: [facility] : 55 AGE: 63 SEX: F ATTEND: Augustus Rivera MD ADM AUTHOR: Oumou Stanley NP * ALL edits or amendments must be made on the [employer]/computer document * General Post-op: day 4 Status [...] no william Extremities: moves all, no edema Neuro/CUSTOMER SERVICE ADVOCATE: alert, oriented X 3 Skin: subq enphysema [...] % (Auto) (14 - 44 %) 16.7 Wilbarger % (Auto) (4 - 13 %) 7.7 Eos % (Auto) (0 - 6 %) 1.1 Baso % (Auto) (0 - 2 %) 0.3 Neut # (Auto) (2.0 - 7.6 K/mm3) 5.81 Lymph # (Auto) (1.0 - 3.8 K/mm3) 1.32 Wilbarger # (Auto) (0.1 - 0.8 K/mm3) 0.61 [...] soft tis sonal emphysematous changes. Impression By: Stanislaw Elizabeth M.D. RADIOLOGY - XR CHEST 1V [...] MD ( Dr. Rivera) at 0952 RPT #:[id number] END OF REPORT 2018-12-04 [facility] 09:39:00-00:00 [facility] ([facility]) Cardiovascular Surgery Prog REPORT#:[id number] REPORT STATUS: Signed DATE:12/04/18 TIME: 938 PATIENT: AMANDA CANNON UNIT #: [id number] ROOM/BED: [address] : 55 AGE: 63 SEX: F ATTEND: Meg Rivera MD ADM AUTHOR: Oumou Stanley NP * ALL edits or amendments must be made on the [employer]computer document * General Post-op: day 4 Status [...] no william Extremities: moves all, no edema Neuro/CUSTOMER SERVICE ADVOCATE: alert, oriented X 3 Skin: subq enphysema [...] % (Auto) (14 - 44 %) 16.7 Wilbarger % (Auto) (4 - 13 %) 7.7 Eos % (Auto) (0 - 6 %) 1.1 Baso % (Auto) (0 - 2 %) 0.3 Neut # (Auto) (2.0 - 7.6 K/mm3) 5.81 Lymph # (Auto) (1.0 - 3.8 K/mm3) 1.32 Wilbarger # (Auto) (0.1 - 0.8 K/mm3) 0.61 [...] patient, collaborating MD ( Dr. Rivera) at 0905 at 4468 RPT #:[id number] END OF REPORT 2018-12-04 [facility] 07:12:00-00:00 [facility] ([facility]) Cardiology Progress Note REPORT#:[id number] REPORT STATUS: Signed DATE:12/04/18 TIME: 07 PATIENT: AMANDA CANNON UNIT #: [id number] ROOM/BED: [address] : 55 AGE: 63 SEX: F ATTEND: Augustus Rivera MD ADM AUTHOR: Miguel Chawla MD * ALL edits or amendments must be made on the [employer] document * Subjective Chief Complaint: post-op CP, [...] 0030 79 12 100 12/04 0022 Nasal 2.510276 cannula 12/04 0000 82 26 97 12/03 2330 86 22 93 12/03 2300 86 25 145/79 103 95 12/03 2245 84 25 157/84 114 98 12/03 2230 85 25 156/74 107 93 12/03 2219 85 28 141/67 96 97 12/03 2215 90 32 172/79 114 95 12/03 2200 90 25 159/76 109 95 12/04 2015 96 Nasal 4.961139 36 cannula 12/04 1999 Nasal 3.360006 cannula 12/03 1920 92 31 94 12/03 1653 98.1 79 17 130/86 100.5 97 Nasal cannula 12/03 1600 78 12 119/62 83 96 12/03 1551 97.7 86 15 115/58 77 96 Nasal 2.0000 00 cannula 12/03 1530 82 12 115/58 84 95 12/03 1506 147/71 102 12/03 1430 88 13 96 12/03 1400 94 34 12/03 1230 69 10 140/97 115 96 12/03 1200 97.6 74 13 137/91 106 95 Nasal 2.000 [...] 2.0000 00 cannula 12/03 0744 98 Nasal 2.463031 28 cannula 12/03 0741 Nasal 2.306880 cannula 12/03 0730 73 27 122/82 98 [...] peripheral pulses Musculoskeletal: full range of motion Neuro/CUSTOMER SERVICE ADVOCATE: alert, oriented X 3, CN II-XII intact [...] current medical rx. Ambulate at 0617 RPT #:[id number] END OF REPORT 2018-12-04 [facility] 00:46:00-00:00 [facility] ([facility]) Hospitalist Progress Note REPORT#:[id number] REPORT STATUS: Signed DATE:12/04/18 TIME: 45 PATIENT: AMANDA CANNON UNIT #: [id number] ROOM/BED: [address] : 55 AGE: 63 SEX: F ATTEND: Augustus Rivera MD ADM AUTHOR: Darcy Price MD * ALL edits or amendments must be made on the [employer]/computer document * Subjective Chief Complaint: doing ok [...] 0030 79 12 100 12/04 0022 Nasal 2.237769 cannula 12/04 0000 82 26 97 12/03 2330 86 22 93 12/03 2300 86 25 145/79 103 95 12/03 2245 84 25 157/84 114 98 12/03 2230 85 25 156/74 107 93 12/03 2219 85 28 141/67 96 97 12/03 2215 90 32 172/79 114 95 12/03 2200 90 25 159/76 109 95 12/04 2015 96 Nasal 4.264272 36 cannula 12/04 1999 Nasal 3.428851 cannula 12/03 1920 92 31 94 12/03 1653 36.7 79 17 130/86 100.5 97 Nasal cannula 12/03 1600 78 12 119/62 83 96 12/03 1551 36.5 86 15 115/58 77 96 Nasal 2.0000 00 cannula 12/03 1530 82 12 115/58 84 95 12/03 1506 147/71 102 03/ 1430 88 13 96 03 1400 94 34 03 1230 69 10 140/97 115 96 12/03 1200 36.4 74 13 137/91 106 95 Nasal 2.000 000 cannula 12/03 1200 74 13 137/91 110 95 03 1130 75 12 115/71 87 95 03 1100 81 13 157/72 99 94 03 1030 81 20 142/90 112 95 03 0930 82 21 144/96 116 94 12/03 0900 81 15 149/68 97 96 12/03 0852 83 26 114/72 88 96 12/03 0800 36.2 81 20 114/72 86 96 Nasal 2.0000 00 cannula 12/03 0744 98 Nasal 2.170411 28 cannula 12/03 0741 Nasal 2.951073 cannula 12/03 0730 73 27 122/82 98 [...] of motion, no edema Musculoskeletal: normal inspection Neuro/CUSTOMER SERVICE ADVOCATE: alert, oriented X 3 Results Findings/Data: Laboratory Tests 12/035 Chemistry Sodium [...] % (Auto) (14 - 44 %) 16.4 Wilbarger % (Auto) (4 - 13 %) 11.2 Eos % (Auto) (0 - 6 %) 2.4 Baso % (Auto) (0 - 2 %) 0.6 Neut # (Auto) (2.0 - 7.6 K/mm3) 6.10 Lymph # (Auto) (1.0 - 3.8 K/mm3) 1.45 Wilbarger # (Auto) (0.1 - 0.8 K/mm3) 0.99 H Eos # (Auto) (0.0 - 0.2 K/mm3) 0.21 H Baso # (Auto) (0.0 - 0.2 K/mm3) 0.05 Immature Gran % (0.0 - 2.0 %) 0.5 Nucleated RBC % (0 - 1.0 %) 0.0 Nucleated RBCs # (Man) (0.0 - 0.1 K/mm3) 0.00 Radiology data: Recent Impressions: RADIOLOGY - XR CHEST 1V 12/03 4172 Report Impression - Status: SIGNED Entered: 12/03/2018 0749 IMPRESSION: 1. More pronounced perihilar infiltrates with fl uid and/or thickening of the right interlobar fissure. 2. Status post partial right lobectomy. No pneum othorax with right chest tube in place. Impression By: Ludwig Ghosh M.D. RADIOLOGY - XR CHEST 1V 12/03 1830 Report Impression - Status: SIGNED Entered: 12/03/2018 185 IMPRESSION: Stable right pneumothorax status post placement of right-sided chest tube. Interval development of extensive soft tis sonal emphysematous changes. Impression By: [email or web address] - Kraig Elizabeth M.D. Diagnosis, Assessment Plan Free Text [...] Price MD on 9 at 0048 RPT #:[id number] END OF REPORT 2018-12-04 [facility] 00:43:00-00:00 [facility] ([facility] Hospitalist Progress Note REPORT#:[id number] REPORT STATUS: Signed DATE:12/04/18 TIME: 004 PATIENT: AMANDA CANNON UNIT #: [id number] ROOM/BED: [address] : 55 AGE: 63 SEX: F ATTEND: Meg Rivera MD ADM AUTHOR: Darcy Price MD * ALL edits or amendments must be made on the el [employer]/computer document * Subjective Chief Complaint: doing ok [...] 0030 79 12 100 12/04 0022 Nasal 2.027473 cannula 12/04 0000 82 26 97 12/03 2330 86 22 93 12/03 2300 86 25 145/79 103 95 12/03 2245 84 25 157/84 114 98 12/03 2230 85 25 156/74 107 93 12/03 2219 85 28 141/67 96 97 12/03 2215 90 32 172/79 114 95 12/03 2200 90 25 159/76 109 95 12/04 2015 96 Nasal 4.968019 36 cannula 12/04 1999 Nasal 3.862757 cannula 12/03 1920 92 31 94 12/03 1653 36.7 79 17 130/86 100.5 97 Nasal cannula 12/03 1600 78 12 119/62 83 96 12/03 1551 36.5 86 15 115/58 77 96 Nasal 2.0000 00 cannula 12/03 1530 82 12 115/58 84 95 12/03 1506 147/71 102 12/03 1430 88 13 96 12/03 1400 94 34 12/03 1230 69 10 140/97 115 96 12/03 1200 36.4 74 13 137/91 106 95 Nasal 2.000 000 cannula 12/03 1200 74 13 137/91 110 95 12/03 1130 75 12 115/71 87 95 12/03 1100 81 13 157/72 99 94 03 1030 81 20 142/90 112 95 12/03 0930 82 21 144/96 116 94 12/03 0900 81 15 149/68 97 96 12/03 0852 83 26 114/72 88 96 / 0800 36.2 81 20 114/72 86 96 Nasal 2.0000 00 cannula 12/03 0744 98 Nasal 2.207204 28 cannula 12/03 0741 Nasal 2.582710 cannula 12/03 0730 73 27 122/82 98 96 12/03 0700 75 22 136/97 112 96 12/03 0530 79 27 121/89 101 94 / 0500 81 15 157/77 108 92 12/03 0430 77 14 127/85 103 96 / 0400 36.6 12/03 0400 79 24 97 [...] of motion, no edema Musculoskeletal: normal inspection Neuro/CUSTOMER SERVICE ADVOCATE: alert, oriented X 3 Treatment Prophylaxis Treatment [...] Price MD on 9 at 0046 RPT #:[id number] END OF REPORT 2018-12-03 [facility] 10:12:00-00:00 [facility] ([facility]) Cardiovascular Surgery Prog REPORT#:[id number] REPORT STATUS: Signed DATE:12/03/18 TIME: 1012 PATIENT: AMANDA CANNON UNIT #: [id number] [address] AGE: 63 SEX: F ATTEND: Augustus Rivera MD ADM AUTHOR: Oumou Stanley NP * ALL edits or amendments must be made on the el [employer]/computer document * General Post-op: day 3 Status [...] Ox 96 12/03 0800 B/P 114/72 12/03 08 B/P Mean 86 12/03 08 O2 Delivery Nasal cannula 12/04 799 O2 Flow Rate 2.954685 12/04 799 Temp 97.1 12/03 08 Pulse 81 12/03 [...] Docusate Sodium 100 MG BID PO Ipratropium Butler 0.5 MG RTQ6H NEB (DC) Metoprolol Tartrate [...] no william Extremities: moves all, no edema Neuro/CUSTOMER SERVICE ADVOCATE: alert, oriented X 3 Results Findings/Data: Laboratory [...] % (Auto) (14 - 44 %) 16.4 Wilbarger % (Auto) (4 - 13 %) 11.2 Eos % (Auto) (0 - 6 %) 2.4 Baso % (Auto) (0 - 2 %) 0.6 Neut # (Auto) (2.0 - 7.6 K/mm3) 6.10 Lymph # (Auto) (1.0 - 3.8 K/mm3) 1.45 [place] # (Auto) (0.1 - 0.8 K/mm3) 0.99 [...] right chest tube in place. Impression By: [facility] Rosalinda Ghosh M.D. Diagnosis, Assessment Plan Free [...] Rivera), nurse (at ) at 1027 RPT #:[id number] END OF REPORT 2018-12-03 [facility] 10:12:00-00:00 [facility] ([facility]) Cardiovascular Surgery Prog REPORT#:[id number] REPORT STATUS: Signed DATE:12/03/18 TIME: 1012 PATIENT: AMANDA CANNON UNIT #: [id number] [facility] AGE: 63 SEX: F ATTEND: Augustus Rivera MD ADM AUTHOR: Oumou Stanley NP * ALL edits or amendments must be made on the [employer]/computer document * General Post-op: day 3 Status [...] Nasal cannula 12/03 08 O2 Flow Rate 2.404695 12/03 0800 Temp 97.1 12/03 0800 Pulse [...] Docusate Sodium 100 MG BID PO Ipratropium Butler 0.5 MG RTQ6H NEB (DC) Metoprolol Tartrate [...] no william Extremities: moves all, no edema Neuro/CUSTOMER SERVICE ADVOCATE: alert, oriented X 3 Results Findings/Data: Laboratory [...] % (Auto) (14 - 44 %) 16.4 [place] % (Auto) (4 - 13 %) 11.2 Eos % (Auto) (0 - 6 %) 2.4 Baso % (Auto) (0 - 2 %) 0.6 Neut # (Auto) (2.0 - 7.6 K/mm3) 6.10 Lymph # (Auto) (1.0 - 3.8 K/mm3) 1.45 [place] # (Auto) (0.1 - 0.8 K/mm3) 0.99 [...] (at ) at 1027 at 1743 RPT #:[id number] END OF REPORT 2018-12-03 [facility] 10:12:00-00:00 [facility]) Cardiovascular Surgery Prog REPORT#:[id number] REPORT STATUS: Signed DATE:12/03/18 TIME: 1012 PATIENT: AMANDA CANNON UNIT #: [id number] ROOM/BED: [address] : 55 AGE: 63 SEX: F ATTEND: Augustus Rivera MD ADM AUTHOR: Oumou Stanley NP * ALL edits or amendments must be made on the 004 Technologies/computer document * See Addendum General Post-op: day [...] Nasal cannula 12/03 08 O2 Flow Rate 2.987262 12/03 0800 Temp 97.1 12/03 08 Pulse 81 12/03 [...] Docusate Sodium 100 MG BID PO Ipratropium Butler 0.5 MG RTQ6H NEB (DC) Metoprolol Tartrate [...] no william Extremities: moves all, no edema Neuro/CUSTOMER SERVICE ADVOCATE: alert, oriented X 3 Results Findings/Data: Laboratory [...] % (Auto) (14 - 44 %) 16.4 Wilbarger % (Auto) (4 - 13 %) 11.2 Eos % (Auto) (0 - 6 %) 2.4 Baso % (Auto) (0 - 2 %) 0.6 Neut # (Auto) (2.0 - 7.6 K/mm3) 6.10 Lymph # (Auto) (1.0 - 3.8 K/mm3) 1.45 Wilbarger # (Auto) (0.1 - 0.8 K/mm3) 0.99 H Eos # (Auto) (0.0 - 0.2 K/mm3) 0.21 H Baso # (Auto) (0.0 - 0.2 K/mm3) 0.05 Immature Gran % (0.0 - 2.0 %) 0.5 Nucleated RBC % (0 - 1.0 %) 0.0 Nucleated RBCs # (Man) (0.0 - 0.1 K/mm3) 0.00 Radiology data: Recent Impressions: RADIOLOGY - XR CHEST 1V 12/03 3620 Report Impression - Status: SIGNED Entered: 12/03/2018 9049 IMPRESSION: 1. More pronounced perihilar infiltrates with fl uid and/or thickening of the right interlobar fissure. 2. Status post partial right lobectomy. No pneum othorax with right chest tube in place. Impression By: [facility] Rosalinda Ghosh M.D. Diagnosis, Assessment Plan Free [...] Addendum 1: 12/03/18 1840 by Oumou Stanley PEDIATRICIAN MANAGING PARTNER for Chris Rivera MD To A/P Subq. [...] L. Denies SOB. Plan is to frankie ruth patient back to SICU for close monitoring. Dr. Rivera and baggage checker informed. at 1847 RPT #:[id number] END OF REPORT 2018-12-03 [facility] 10:12:00-00:00 [facility] ([facility]) Cardiovascular Surgery Prog REPORT#:[id number] REPORT STATUS: Signed DATE:12/03/18 TIME: 1012 PATIENT: AMANDA CANNON UNIT #: [id number] [address] AGE: 63 SEX: F ATTEND: Augustus Rivera MD ADM AUTHOR: Oumou Stanley NP * ALL edits or amendments must be made on the 004 Technologies/computer document * See Addendum General Post-op: day [...] 12/03 0800 O2 Delivery Nasal cannula 12/03 0800 O2 Flow Rate 2.434984 12/03 0800 Temp 97.1 12/03 0800 Pulse [...] Docusate Sodium 100 MG BID PO Ipratropium Butler 0.5 MG RTQ6H NEB (DC) Metoprolol Tartrate [...] no william Extremities: moves all, no edema Neuro/CUSTOMER SERVICE ADVOCATE: alert, oriented X 3 Results Findings/Data: Laboratory [...] % (Auto) (14 - 44 %) 16.4 Wilbarger % (Auto) (4 - 13 %) 11.2 Eos % (Auto) (0 - 6 %) 2.4 Baso % (Auto) (0 - 2 %) 0.6 Neut # (Auto) (2.0 - 7.6 K/mm3) 6.10 Lymph # (Auto) (1.0 - 3.8 K/mm3) 1.45 Wilbarger # (Auto) (0.1 - 0.8 K/mm3) 0.99 H Eos # (Auto) (0.0 - 0.2 K/mm3) 0.21 H Baso # (Auto) (0.0 - 0.2 K/mm3) 0.05 Immature Gran % (0.0 - 2.0 %) 0.5 Nucleated RBC % (0 - 1.0 %) 0.0 Nucleated RBCs # (Man) (0.0 - 0.1 K/mm3) 0.00 Radiology data: Recent Impressions: RADIOLOGY - XR CHEST 1V 12/03 0520 Report Impression - Status: SIGNED Entered: 12/03/2018 [...] Addendum 1: 12/03/18 1840 by Oumou Stanley NP To A/P Subq. Emphysema-received a call from [...] L. Denies SOB. Plan is to t ransfer patient back to SICU for close monitoring. Dr. Rivera and baggage checker informed. at 1847 at 2350 RPT #:[id number] END OF REPORT 2018-12-03 [facility] 06:38:00-00:00 [facility] ([facility] Cardiology Progress Note REPORT#:[id number] REPORT STATUS: Signed DATE:12/03/18 TIME: 06 PATIENT: AMANDA CANNON UNIT #: [id number] ROOM/BED: [address] : [birth year] AGE: 63 SEX: F ATTEND: Augustus Rivera MD ADM AUTHOR: Miguel Chawla MD * ALL edits or amendments must be made on the 004 Technologies/Servergy document * Subjective Chief Complaint: post-op CP, [...] 12/03 0500 81 15 157/77 108 92 03/ 0430 77 14 127/85 103 96 / 0400 97.8 12/03 0400 79 24 97 03/ 0330 76 24 126/86 102 97 12/03 0300 78 13 96 03 0230 78 24 132/87 104 97 12/03 [...] 12/02 2100 87 16 136/76 98 99 / 2030 88 112/81 93 97 12/02 2000 97.6 12/03 1999 Nasal 2.276729 cannula 12/02 1939 95 149/65 93 95 12/02 1900 77 28 129/69 91 100 12/02 1853 99 Nasal 3.260931 32 cannula 12/02 1830 76 14 134/69 90 99 / 1800 77 32 126/89 103 99 12/02 1730 81 39 132/70 95 97 12/02 1700 79 21 121/60 87 98 / 1630 84 42 121/65 85 96 12/02 1600 97.8 12/02 1600 83 32 124/69 90 96 12/02 1530 81 12 115/67 87 97 12/02 1500 86 13 125/67 88 96 12/02 1430 89 18 126/64 88 97 / 1400 87 15 120/59 82 98 / 1330 84 28 130/63 91 100 12/02 1300 90 29 131/84 102 96 12/02 1200 90 15 172/85 117 94 12/02 1131 97.7 12/02 1130 72 11 122/83 98 97 12/02 1100 73 11 140/71 98 96 12/02 1030 76 13 119/71 90 97 12/02 1015 97 12/02 1001 79 13 136/74 98 / 0930 77 23 112/59 81 94 12/02 0900 75 24 107/57 78 96 / 0830 73 23 100/53 73 97 12/02 0800 96.2 12/02 0800 Nasal 2.292040 cannula 12/02 0800 63 23 111/62 80 100 / 0754 96 Nasal 2.931891 28 cannula 12/02 0730 67 26 104/54 73 97 12/02 0700 67 12 138/72 100 97 Status [...] peripheral pulses Musculoskeletal: full range of motion Neuro/CUSTOMER SERVICE ADVOCATE: alert, oriented X 3, CN II-XII intact , no motor deficits Psychiatry: normal affect, normal judgment/insig ht, normal mood, no hallucinations Results Findings/Data: Laboratory Tests 12/03 414 Chemistry [...] % (Auto) (14 - 44 %) 16.4 Wilbarger % (Auto) (4 - 13 %) 11.2 Eos % (Auto) (0 - 6 %) 2.4 Baso % (Auto) (0 - 2 %) 0.6 Neut # (Auto) (2.0 - 7.6 K/mm3) 6.10 Lymph # (Auto) (1.0 - 3.8 K/mm3) 1.45 Wilbarger # (Auto) (0.1 - 0.8 K/mm3) 0.99 H Eos # (Auto) (0.0 - 0.2 K/mm3) 0.21 H Baso # (Auto) (0.0 - 0.2 K/mm3) 0.05 Immature Gran % (0.0 - 2.0 %) 0.5 Nucleated RBC % (0 - 1.0 %) 0.0 Nucleated RBCs # (Man) (0.0 - 0.1 K/mm3) 0.00 Laboratory Tests 12/03 0415 Chemistry Magnesium (1.6 - 2.3 MG/DL) 2.0 Diagnosis, Assessment Plan Free Text DxA P Notes Free Text DxA P Notes: IMPRESSION: S/P Robotic assisted excision of right upper lo be lung nodule. Staple excision of blebs right upper lobe of lung. CAD-stable HTN HLP PVC's PAD AAA S/P EVAR COPD RECOMMEND: Continue current medical rx. Ambulate at 0910 RPT #:[id number] END OF REPORT 2018-12-02 [id number] [facility] 09:50:00-00:[address] [place] [address] PATIENT NAME: AMANDA CANNON ADMIT JOHNNY E: 11/30/18 ACCOUNT NO: [id number] ROOM NO: [facility] AGE: 63 REPORT TYPE: ELECTROCARDIOGRAM SEX: F ADMITTING PHYSICIAN:Karen Vasquez MD ATTENDING PHYSICIAN:Chris Rivera MD Order: [id number] Test Reason : CAD Test Date/Time Stamp: [...] Confirmed by:ALEN BRADLEY at 0701 PATIENT NAME: AMANDA CANNON 2018[facility]12-02 [facility] 08:04:00-00:00 [facility] ([facility]) Cardiology Progress Note REPORT#:[id number] REPORT STATUS: Signed DATE:12/02/18 TIME: 08 PATIENT: AMANDA CANNON UNIT #: [id number] [address] AGE: 63 SEX: F ATTEND: Augustus Rivera MD ADM AUTHOR: Miguel Chawla MD * ALL edits or amendments must be made on the el [employer]/computer document * Subjective Chief Complaint: post-op CP, [...] 12/01 1932 81 15 124/81 95 97 12/01 1930 Nasal 2.813986 cannula 12/01 1927 97 Nasal 2.966491 28 cannula 12/01 1900 83 17 136/74 99 97 12/01 1800 84 21 125/71 93 98 12/01 1730 84 21 140/83 107 98 12/01 1700 96 42 125/70 92 94 12/01 [...] 77 40 100 12/01 0823 96 Nasal 2.519640 28 cannula 12/01 0815 80 31 96 [...] peripheral pulses Musculoskeletal: full range of motion Neuro/CUSTOMER SERVICE ADVOCATE: alert, oriented X 3, CN II-XII intact , no motor deficits Psychiatry: normal affect, normal judgment/insig ht, normal mood, no hallucinations Results Findings/Data: Laboratory Tests 12/02 12/01 0511 7 Chemistry Sodium (137 - 145 MMOL/L) 139 [...] (Auto) (14 - 44 %) 13.4 L Wilbarger % (Auto) (4 - 13 %) 9.9 Eos % (Auto) (0 - 6 %) 0.9 Baso % (Auto) (0 - 2 %) 0.4 Neut # (Auto) (2.0 - 7.6 K/mm3) 7.91 H Lymph # (Auto) (1.0 - 3.8 K/mm3) 1.42 Wilbarger # (Auto) (0.1 - 0.8 K/mm3) 1.05 [...] Impressions: RADIOLOGY - XR CHEST 1V 12/02 0506 Report Impression - Status: SIGNED Entered: 12/02/2018 [...] current medical rx. Ambulate at 1100 RPT #:[id number] END OF REPORT 2018-12-01 [facility] 19:28:00-00:00 [facility] ([facility]) Adult General Consultation REPORT#:[id number] REPORT STATUS: Signed DATE:12/01/18 TIME: 1927 PATIENT: AMANDA CANNON UNIT #: [id number] ROOM/BED: [address] : [birth year] AGE: 63 SEX: F ATTEND: Augustus Rivera MD ADM AUTHOR: Darcy Price MD * ALL edits or amendments must be made on the 004 Technologies/computer document * History of Present Illness Reason [...] right upper lobe blebs. Surgery completed at [facility] by Chris Rivera MD. Chest tub e [...] Reviewed ATORVASTATIN (LIPITOR) 40 MG PO BEDTIME 11/30/18 Strength: 40 MG TAB 1445 1140 TIOTROPIUM (SPIRIVA) (Unknown Dose) INH 6 11/30/18 Strength: (Unknown RT EVENING 1446 1140 Strength) INHALER FLUTICASONE (Unknown Dose) INH 11/28/18 9 FUROATE/VILANTEROL RT EVENING 1458 1140 100/25 MCG/ACT (BREO ELLIPTA 100/25 MCG/ACT) Strength: (Unknown Strength) INHALER PANTOPRAZOLE DR 20 MG PO BEDTIME 11/28/1811/30 (PROTONIX) 1458 1140 Strength: 20 MG TAB.DR METOPROLOL TARTRATE 25 MG PO EVENING 11/28/18 0 11/30/18 (LOPRESSOR) 1459 1140 Strength: 25 MG TAB ZOLPIDEM (AMBIEN) 10 MG PO BEDTIME 11/28/18 Strength: 10 MG TAB 1459 1140 ESCITALOPRAM (LEXAPRO) 10 MG PO EVENING 11/30/18 Strength: 10 MG TAB 1500 1140 Current Hospital Medications: Anti-Infective Agents Sig/Rimma Start time Last Medication Dose Route Stop Time Status Admin Cefazolin Sodium 1,000 MG Q8H 12/01 0100 DC (ANCEF) IV 12/01 1701 1709 Sodium Chloride 10 ML (SODIUM CHLORIDE 0.9%) Autonomic Drugs Sig/Rimma Start time Last Medication Dose Route Stop Time Status Admin Ipratropium Butler 0.5 MG RTQ6H 11/30 2100 AC 12/01 (ATROVENT U/D NEB 12/30 2100 1933 INHALATION) Albuterol Sulfate 2.5 MG RTQ6H 11/30 2000 AC 0 12/01 (ALBUTEROL SULFATE) NEB 12/30 2000 193 Cardiovascular Drugs Sig/Rimma Start time Last Medication Dose Route Stop Time Status Admin Atorvastatin Calcium 40 MG BEDTIME 11/30 2100 A C (LIPITOR) PO 12/30 2100 Metoprolol Tartrate 25 MG BEDTIME 11/30 2100 A C (LOPRESSOR) PO 12/30 2100 Central Nervous System Agents Sig/Rimma Start time Last Medication Dose Route Stop Time Status Admin Citalopram 20 MG BEDTIME 11/30 2100 AC Hydrobromide PO 12/30 2100 (CeleXA) Zolpidem Tartrate 10 MG BEDTIME 11/30 2099 AC (AMBIEN (C-IV)) PO 12/30 2100 Ketorolac [...] Time Status Admin Potassium Chloride/ 1,000 ML .[id number] 11/30 191 0 DC 12/01 Dextrose/Sod Cl IV 12/30 1910 0802 (DEXTROSE 5%-1/2NS- KCL 20MEQ) Eye, Ear, Nose And Throat (Een Sig/Rimma Start time Last Medication Dose Route Stop Time Status Admin Budesonide 0.25 MG RTQ12H 12/01 1999 AC 12/01 (PULMICORT) NEB 12/30 2000 1927 Gastrointestinal Drugs Sig/Rimma Start time Last Medication [...] DAILY PRN PRN 11/30 1 910 AC (MILK OF MAGNESIA) PO 12/30 [...] Nasal cannula 12/01 1926 O2 Flow Rate 2.265569 12/01 1927 B/P 125/71 12/01 1800 B/P Mean 93 [...] full range of motion, normal in spection Neuro/CUSTOMER SERVICE ADVOCATE: alert, oriented X 3 Results Findings/Data: Laboratory [...] (Auto) (14 - 44 %) 3.1 L Wilbarger % (Auto) (4 - 13 %) 3.6 L Eos % (Auto) (0 - 6 %) 0.0 Baso % (Auto) (0 - 2 %) 0.1 Neut # (Auto) (2.0 - 7.6 K/mm3) 11.50 H Lymph # (Auto) (1.0 - 3.8 K/mm3) 0.38 L Wilbarger # (Auto) (0.1 - 0.8 K/mm3) 0.44 [...] Ajay Duran M.D. Treatment Prophylaxis Treatment Prophylaxis Iwlliam documentation: The data below has been impo [...] by Darcy Price MD on 9 at 2023 RPT #:[id number] END OF REPORT 2018-12-01 [facility] 15:14:00-00:00 [facility] ([facility]) Cardiology Progress Note REPORT#:[id number] REPORT STATUS: Signed DATE:12/01/18 TIME: 1514 PATIENT: AMANDA CANNON UNIT #: [id number] ROOM/BED: [address] : 55 AGE: 63 SEX: F ATTEND: Augustus Rivera MD ADM AUTHOR: Alen Hanson MD * ALL edits or amendments must be made on the 004 [employer]/Servergy document * Subjective Chief Complaint: post-op CP, [...] 77 40 100 12/01 0823 96 Nasal 2.639520 28 cannula 12/01 0815 80 31 96 12/01 0800 97.5 12/01 0800 Nasal 2.613302 cannula 12/01 0800 72 12 96 12/01 0745 79 33 12/01 0730 74 25 95 12/01 0715 76 27 95 12/01 0700 77 28 97 12/01 0630 77 21 94 12/01 0615 78 21 96 12/01 0600 79 17 96 12/01 0545 81 24 96 12/01 0530 81 18 12/01 0500 77 21 97 12/01 0445 76 18 96 12/01 0430 78 17 95 12/01 0415 77 21 97 12/01 0400 97.4 12/01 0400 76 20 96 12/01 0345 77 15 96 12/01 0330 77 16 95 12/01 0315 86 23 95 12/01 0300 77 95 12/01 0245 78 11 96 12/01 0230 80 11 95 12/01 0215 82 15 95 12/01 0200 80 17 96 12/01 0145 87 18 12/01 0130 78 10 94 12/01 0115 77 11 94 12/01 0100 78 10 12/01 0045 80 11 94 12/01 0032 80 10 12/01 0017 79 12/01 0002 77 10 95 12/01 0000 97.6 11/30 2347 69 99 11/30 2332 70 11/30 2317 73 11/30 2302 72 10 95 11/30 2247 80 16 11/30 2232 75 12 95 11/30 2217 77 11 95 11/30 2202 76 11 95 11/30 2147 79 10 12/01 2131 82 13 11/30 2116 85 15 11/30 2049 96 Non 15.693236 100 rebreather mask 11/30 2046 81 14 97 12/01 2031 84 13 97 11/30 2001 87 14 96 12/01 1999 97.6 12/01 1999 Non 15.171787 rebreather mask Medications: Active Meds + DC'd Last 24 Hrs Cefazolin Sodium 1,000 MG Q8H IV Sodium Chloride 10 ML Mupirocin 1 APPLIC BID NASAL Atorvastatin Calcium 40 MG BEDTIME PO Citalopram Hydrobromide 20 MG BEDTIME PO Docusate Sodium 100 MG BID PO Ipratropium Butler 0.5 MG RTQ6H NEB Metoprolol Tartrate 25 [...] peripheral pulses Musculoskeletal: full range of motion Neuro/CUSTOMER SERVICE ADVOCATE: alert, oriented X 3, CN II-XII intact [...] Excess (-3.0 - 3.0 mmol/L) -8.7 L Rafa Test (CHECK) NA Temperature (37 C) 37.0 [...] 2.3 MG/DL) 1.9 1.9 Laboratory Tests 12/01 Hematology WBC (3.8 - 9.8 K/MM3) 12.4 [...] - 44 %) 3.1 L 13.6 L Wilbarger % (Auto) (4 - 13 %) 3.6 L 1.8 L Eos % (Auto) (0 - 6 %) 0.0 0.4 Baso % (Auto) (0 - 2 %) 0.1 0.5 Neut # (Auto) (2.0 - 7.6 K/mm3) 11.50 H 10.37 H Lymph # (Auto) (1.0 - 3.8 K/mm3) 0.38 L 1.70 Wilbarger # (Auto) (0.1 - 0.8 K/mm3) 0.44 0.22 Eos # (Auto) (0.0 - 0.2 K/mm3) 0.00 0.05 Baso # (Auto) (0.0 - 0.2 K/mm3) 0.01 0.06 Immature Gran % (0.0 - 2.0 %) 0.5 1.0 Nucleated RBC % (0 - 1.0 %) 0.0 0.0 Nucleated RBCs # (Man) (0.0 - 0.1 K/mm3) 0.00 0 .00 Laboratory Tests 12/010 5 Chemistry Magnesium (1.6 - 2.3 MG/DL) 1.9 1.9 Radiology data: Recent Impressions: RADIOLOGY - XR CHEST 1V 11/30 1920 Report Impression - Status: SIGNED Entered: 11/30/20181940 IMPRESSION: Mild cardiomegaly with mild congestive changes b ilaterally. No pneumothorax is identified. LOCATION: B2 Impression By: Dereck - Mahi Campa MD RADIOLOGY - XR CHEST 1V 12/01 5986 Report Impression - Status: SIGNED Entered: 12/01/2018 0630 Impression: Stable chest/no change. Impression By: Ajay Duran M.D. Results: labs reviewed, vital signs [...] full code Plan discussed with: patient, consultants, patie nt [...] MD on 0 12/01/18 at 1521 RPT #:[id number] END OF REPORT 2018-12-01 [id number] [facility]00 [address] [place] [address] PATIENT NAME: AMANDA CANNON ADMIT JOHNNY E: 11/30/18 ACCOUNT NO: [id number] ROOM NO: Z.SI04 AGE: 63 REPORT TYPE: ELECTROCARDIOGRAM SEX: F ADMITTING PHYSICIAN:Karen Vasquez MD ATTENDING PHYSICIAN:Chris Rivera MD Order: [id number] Test Reason : CAD Test Date/Time Stamp: [...] Confirmed by:ALEN BRADLEY at 0815 PATIENT NAME: AMANDA CANNON 2018-11-30 [id number] [facility] 19:27[facility] [address] [place] [address] PATIENT NAME: AMANDA CANNON ADMIT JOHNNY E: 11/30/18 ACCOUNT NO: [id number] ROOM NO: Z.SI04 AGE: 63 REPORT TYPE: ELECTROCARDIOGRAM SEX: F ADMITTING PHYSICIAN:Karen Vasquez MD ATTENDING PHYSICIAN:Chris Rivera MD Order: [id number] Test Reason : post op Test Date/Time Stamp: MonNov 30 2018 19:27:24 Blood Pressure : / mmHG Vent. Rate : 086 BPM Atrial Rate : 086 BPM P-R Int : 098 ms QRS Dur : 076 ms QT Int : 404 ms P-R-T Axes : 078 040 059 degree s QTc Int : 483 ms Sinus rhythm with short RI Nonspecific ST and T wave abnormality Prolonged QT Abnormal ECG No previous ECGs available Confirmed by ALEN HANSON ([id number]) on 12/01/2018 8:15:18 AM Referred By: Chris Rivera Confirmed by:ALEN BRADLEY at 0815 PATIENT NAME: AMANDA CANNON 2018-11-30 [id number] [facility] 19:25:00-00:00 [address] [place] [address] PATIENT NAME: AMANDA CANNON ADMIT JOHNNY E: 11/30/18 ACCOUNT NO: [id number] ROOM NO: Z.SI04 AGE: 63 REPORT TYPE: [...] upper lobe bulla. SURGEON: Chris Rivera MD WOOL HAT SANDING MACHINE OPERATOR: Mickie Coats PA-C ANESTHESIA: General. COMPLICATIONS: None. [...] of the lung along the PATIENT NAME: AMANDA CANNON major fissure. Lesion was sent out for pathology for permanent section. Following that, we irrigated with antibi otic saline solution. Progel placed on the staple lines. Wounds were irrigated with ant ibiotic saline solution. All instruments were removed. Ports were removed. A 24-[place] chest tube was placed and secured with 0 silks. The ports w ere removed. All surgical sites were closed after infi ltrating Exparel for pain control and all the wounds were closed in layers in the usual fashi on, dressings applied, and the patient to the surgical ICU in stable condition. Dictated By: Chris Rivera MD WT: OP:IVETT/SOPHIA/JANNIE Conf#: [id number]/DID#: [id number] cc: Alen Hanson MD Authenticated by Chris Rivera MD On 019 07:39:09 AM at 0739 PATIENT NAME: AMANDA CANNON 2018-11-30 [facility] 19:18:00-00:00 [facility] ([facility]) Brief Op Note REPORT#:[id number] REPORT STATUS: Signed DATE:11/30/18 TIME: 1917 PATIENT: AMANDA CANNON UNIT #: [id number] ROOM/BED: : 55 AGE: 63 SEX: F ATTEND: Augustus Rivera MD ADM AUTHOR: Chris Rivera MD * ALL edits or amendments must be made on the 004 [employer]/computer document * Op/Inv Proc Note - Brief Pre-procedure diagnosis: Right upper lobe lung nodule Blebs right upper lobe Post-procedure diagnosis: same as pre procedure dx Procedures performed: Robotic assisted excision of right upper lobe pancho ng nodule. Staple excision of blebs right upper lobe of lung. Primary Surgeon: Chris Rivera Cleaner(s): Mickie Coats PA-c Anesthesiologist: Dr. Valverde Anesthesia: general anesthesia Findings: See detailed op report Complications: none Estimated blood loss in ml's: 15cc Specimens removed/altered: Right upper lobe lung nodule Tube(s): Chest tube Disposition: ICU (in a stable condition) at 1922 RPT #:[id number] END OF REPORT 2018-11-28 [id number] [facility] 13:49:00-00:[address] [place] [address] PATIENT NAME: AMANDA CANNON ADMIT JOHNNY E: ACCOUNT NO: [id number] ROOM NO: AGE: 63 REPORT TYPE: ELECTROCARDIOGRAM SEX: F ADMITTING PHYSICIAN:Chris Rivera MD ATTENDING PHYSICIAN:Chris Rivera MD Order: [id number] Test Reason : PRE-OP Test Date/Time Stamp: [...] on 11/10 09/29 at 0727 PATIENT NAME: AMANDA CANNON 2018-09-[address] [facility] 13:04:03-00:00 CONSULTATION AMANDA CANNON FACILITY: [facility] Billing #: [id number] Room: [address] [place] [address] MR #: [id number] : 1955 DATE OF ADMISSION: 09/14/2018 DATE OF CONSULTATION: 09/17/2018 REQUESTING PHYSICIAN: ERP SPECIALIST: Jyoti Landis MD HISTORY OF PRESENT ILLNESS: Ms. Griselda garrido is a 63-year-old female who was admitted to [facility] with a perioperative spinal tear. She had a CAT scan done as a part of this workup which basically demonstrated that this patient had an increase in size of her abdominal aortic aneurysm from 4.2 to 4.[address] previous CT which was basically in 2017. She had an endovascular aneur ysm repair 3 years ago in the [facility]. It is unclear to me who [...] to the rehab or actually we co agueda also have her complete her rehab and then have her undergo this procedure. This procedure would be a minor outpatient-type procedure. I will attempt to coordinate this with her primary team. BERTO/FACUNDO /[id number] 2018-09-[address] [facility] 09:22:27-00:00 CONSULTATION CANNONAMANDA FACILITY: [facility] Billing #: [id number] Room: [address] [place] [address] MR #: [id number] : 1955 DATE OF ADMISSION: 09/14/2018 DATE OF CONSULTATION: 09/15/2018 REQUESTING PHYSICIAN: Amanda Irving ERP SPECIALIST: Ronald Varma MD REASON FOR CONSULTATION: Evaluate [...] aneurysm repair about 3 years back at [facility] and at that time CTA of [...] COPD, hypertension. PAST SURGICAL HISTORY: Abdominal aortic aneurysm repair, lumbar fusion. ALLERGIES: NO KNOWN DRUG [...] I do not have access to t CT angiogram. We shall follow her up as outpatient and get a new CT angiogram done at that ti me. I have given my card and asked her to follow up with me in my office. Currently she is stable. Thank you very much for asking me to see this bogdan greennt of yours. ZURI/FACUNDO /[id number] 2018-09-[address] [facility] 04:24:32-00:00 CONSULTATION AMANDA CANNON FACILITY: [facility] Billing #: [id number] Room: [facility] AS403 MR #: [id number] : 1955 DATE OF ADMISSION: 09/14/2018 DATE OF CONSULTATION: 09/14/2018 REQUESTING PHYSICIAN: ERP SPECIALIST: Daniel Ham MD Orthopedic Surgery Consultation REASON [...] morning at the emergency r oom at [facility] and diagnosed with dyspnea, hypoxia, endoleak of AAA, COPD with acute exacer bation, solitary pulmonary nodule, hypokalemia, and anem ia. She was transferred to [facility] fo r further care. I evaluated Ms. [...] do minant. 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 She quit smoking in 2010. She drinks [...] current dressing in place that was changed bibi montes today. She most likely will require inpatient rehab per Physical Therapy assessment in the hospital today. I woul d like to see her back in my office after she is discharged fr inpatient rehab. Thank you for the consult. Please reconsult as n eeearnest. With regard to questionable minimally displaced superior endplate fracture at L3, she is status post a pancho mbar fusion. There are no motor deficits at this time. We kristopher l follow this possible finding conservatively at this point in time. BETH/FACUNDO /[id number]"
[2023-05-20 13:37] LABS: Absolute Lymphocytes (CBC) 2.1 K/uL (0.7-4.9); Hematocrit 47.7 % (36.0-45.0); MCV 98.4 fL (80-100); MPV 7.1 fL (7.6-11.3); Platelets 272 thou/uL (152-406); RBC Red Blood Cell Count 4.85 M/uL (3.86-4.86)
[2023-05-20 13:42] LABS: Protime INR 0.89
--- NOTE | 2023-05-20 13:49 | RAD REPORT ---
EXAM DESCRIPTION: RAD - Chest Single View - 05/20/2023 1:36 pm CLINICAL HISTORY: COUGH Chest pain. COMPARISON: <Comparisons> FINDINGS: Portable technique limits examination quality. The lungs are grossly clear. Right pleural thickening. The heart is normal in size. No displaced frac tures.Cervical spine hardware. IMPRESSION: No acute intrathoracic process suspected.
[2023-05-20 13:55] LABS: Albumin 2.9 g/dL (3.4-5.0); Bilirubin Direct 0.1 mg/dL (0-0.2); Bilirubin Indirect, Calculated 0.3 mg/dL (0.2-0.8); Bilirubin Total 0.4 mg/dL (0.2-1.0); Magnesium 2.1 mg/dL (1.6-2.4); Protein, Total 6.3 g/dL (6.4-8.2); SARS-CoV-2 Antigen Rapid Res Negative (Negative)
--- NOTE | 2023-05-20 13:56 | RAD REPORT ---
EXAM DESCRIPTION: CT - Abdomen Pelvis Wo Contrast - 05/20/2023 1:39 pm CLINICAL HISTORY: Abdominal pain. Abd pain;Nausea / vomiting COMPARISON: Abdomen Pelvis W Contrast dated 04/02/2020 TECHNIQUE: CT imaging of the abdomen and pelvis was performed without contrast. Solid organ, bowel a nd vascular assessment is limited due to lack of IV and oral contrast. All CT scans are performed using dose optimization technique as appropriate and may include automated exposure control or mA/KV adjustment according to patient size. FINDINGS: The lower lung mancia are clear.Small hiatal hernia. The liver, spleen, pancreas, adrenal glands and kidneys are within normal limits for a limited non-co ntrast examination. No bowel obstruction, free air, free fluid or abscess. Abdominal aneurysm with endograft. Moderate st ool throughout the colon. Postsurgical lumbar spine. IMPRESSION: No acute intra-abdominal or pelvic findings. A limited non-contrast examination was performed as detailed.
[2023-05-20] MEDS ORDERED: NA CHLORIDE 0.9% 1,000 ML ONE (14:01)
[2023-05-20] MEDS ORDERED: FAMOTIDINE 20 MG/2 ML VIAL IV ONE (14:01)
[2023-05-20] MEDS ORDERED: PIPERACIL/TAZO 3.375 GM VIAL IV ONE (14:44)
--- NOTE | 2023-05-20 15:04 | EDPHYS ---
Physician Documentation [facility] Name: Amanda Malik Age: 67 yrs Sex: Female : 1955 Arrival Date: 05/20/2023 Time: 13:10 Bed 2 Private MD: GALILEA Physician Rd Chamorro HPI: 05/20 14:49 This 67 yrs old Unknown Female presents to ER via EMS with complaints of abd pain , moraima vomiting, hypotension. 14:49 The patient presents with abdominal pain in the upper abdomen, abdominal distention in moraima the upper abdomen, in the lower abdomen. Onset: The symptoms/episode began/occurred just prior to arrival. The patient presents to the emergency department with nausea, that is moderate, vomiting, that is continuous, described as bilious. Onset: The symptoms/episode began/occurred just prior to arrival. Possible causes: unknown. The symptoms are aggravated by nothing. The symptoms are alleviated by nothing. The patient has experienced near-syncope, almost passed out, felt faint, felt generally weak. Duration: This was a single episode, that lasted 30 second(s). Associated signs and symptoms: Pertinent positives: abdominal pain, nausea, vomiting. Context: the episode(s) was witnessed, by EMS personnel, by family. The symptoms do not radiate. Associated signs and symptoms: Pertinent positives: nausea and vomiting. Modifying factors: The symptoms are alleviated by nothing, the symptoms are aggravated by nothing. Associated injury: The patient did not suffer any apparent associated injury. Current symptoms: Currently, the patient is not experiencing any symptoms, the patient feels back to baseline. Severity of pain: At its worst the pain was mild moderate in the emergency department the pain has improved moderately. Severity of symptoms: At their worst the symptoms were moderate in the emergency department the symptoms have improved moderately. The patient has not experienced similar symptoms in the past. Historical: - Allergies: 13:59 No Known Drug Allergies; hb - PMHx: 13:19 AAA; COPD; GERD; High Cholesterol; Hypertension; ko1 - Immunization history:: Adult Immunizations up to date. - Family history:: not pertinent. - Social history:: Smoking status: Patient denies any tobacco usage or history of. ROS: 14:49 Constitutional: Negative for fever, chills, and weight loss, Eyes: Negative for injury, moraima pain, redness, and discharge, ENT: Negative for injury, pain, and discharge, Neck: Negative for injury, pain, and swelling, Cardiovascular: Negative for chest pain, palpitations, and edema, Respiratory: Negative for shortness of breath, cough, wheezing, and pleuritic chest pain, Back: Negative for injury and pain, : Negative for injury, bleeding, discharge, and swelling, MS/Extremity: Negative for injury and deformity, Skin: Negative for injury, rash, and discoloration, Neuro: Negative for headache, weakness, numbness, tingling, and seizure, Psych: Negative for depression, anxiety, suicide ideation, homicidal ideation, and hallucinations, Allergy/Immunology: Negative for hives, rash, and allergies, Endocrine: Negative for neck swelling, polydipsia, polyuria, polyphagia, and marked weight changes, Hematologic/Lymphatic: Negative for swollen nodes, abnormal bleeding, and unusual bruising. 14:49 Abdomen/GI: Positive for abdominal pain, nausea and vomiting, abdominal cramps, abdominal distension, of the epigastric area, right upper quadrant and left upper quadrant. Exam: 14:49 Constitutional: This is a well developed, well nourished patient who is awake, alert, moraima and in no acute distress. Head/Face: Normocephalic, atraumatic. Eyes: Pupils equal round and reactive to light, extra-ocular motions intact. Lids and lashes normal. Conjunctiva and sclera are non-icteric and not injected. Cornea within normal limits. Periorbital areas with no swelling, redness, or edema. ENT: Nares patent. No nasal discharge, no septal abnormalities noted. Tympanic membranes are normal and external auditory canals are clear. Oropharynx with no redness, swelling, or masses, exudates, or evidence of obstruction, uvula midline. Mucous membranes moist. Neck: Trachea midline, no thyromegaly or masses palpated, and no cervical lymphadenopathy. Supple, full range of motion without nuchal rigidity, or vertebral point tenderness. No Meningismus. Chest/axilla: Normal chest wall appearance and motion. Nontender with no deformity. No lesions are appreciated. Cardiovascular: Regular rate and rhythm with a normal S1 and S2. No gallops, murmurs, or rubs. Normal PMI, no JVD. No pulse deficits. Respiratory: Lungs have equal breath sounds bilaterally, clear to auscultation and percussion. No rales, rhonchi or wheezes noted. No increased work of breathing, no retractions or nasal flaring. Back: No spinal tenderness. No costovertebral tenderness. Full range of motion. Female : Normal external genitalia. Skin: Warm, dry with normal turgor. Normal color with no rashes, no lesions, and no evidence of cellulitis. MS/ Extremity: Pulses equal, no cyanosis. Neurovascular intact. Full, normal range of motion. Neuro: Awake and alert, GCS 15, oriented to person, place, time, and situation. Cranial nerves II-XII grossly intact. Motor strength 5/5 in all extremities. Sensory grossly intact. Cerebellar exam normal. Normal gait. Psych: Awake, alert, with orientation to person, place and time. Behavior, mood, and affect are within normal limits. 14:49 ECG was reviewed by the Attending Physician. 14:49 Abdomen/GI: Inspection: distension, that is moderate, in the right upper quadrant, left upper quadrant, right lower quadrant and left lower quadrant, Bowel sounds: normal, Palpation: mild abdominal tenderness, in the epigastric area, right upper quadrant and left upper quadrant, Liver: no appreciated palpable abnormalities, Hernia: not appreciated. Vital Signs: 13:13 BP 73 / 55; Pulse 64; Resp 18; Temp 98.8; Pulse Ox 98% on R/A; ko1 13:55 BP 102 / 70; Pulse 61; ko1 15:00 BP 129 / 72; Pulse 61; Resp 15; Pulse Ox 100% on R/A; hb 16:30 BP 124 / 74; Pulse 71; Resp 16; Pulse Ox 99% on R/A; hb 18:00 BP 100 / 71; Pulse 67; Resp 15; Pulse Ox 98% on R/A; hb MDM: 13:19 Patient medically screened. moraima 14:56 Differential Diagnosis: aortic aneurysm, cardiac arrhythmia, cerebrovascular accident, moraima GI bleed, seizure, vasovagal episode. Differential diagnosis: Nonspecific abd pain, gastritis, cholecystitis, pancreatitis, appendicitis, diverticulitis, viral gastroenteritis, gastroenteritis, bowel obstruction, cholecystitis, Cholelithiasis, diverticulitis, gastritis, gastroesophageal reflux disease, GI Bleed, Mesenteric ischemia or infarction, non-specific abd pain, pancreatitis, Peptic Ulcer Disease, Ureterolithiasis, urinary tract infection. Data reviewed: vital signs, nurses notes, EMS record, lab test result(s), EKG, radiologic studies, CT scan, plain films. Consideration of Admission/Observation Escalation of care including admission/observation considered. I considered the following discharge prescriptions or medication management in the emergency department Medications were administered in the Emergency Department. See MAR. Independent interpretation of the following test(s) in the Emergency Department EKG: See my EKG interpretation above. Test considered but Not performed: MRI: no mrcp. Care significantly affected by the following chronic conditions: Hypertension, Chronic Obstructive Pulmonary Disease, gerd, high cholesterolm aaa repai. Counseling: I had a detailed discussion with the patient and/or guardian regarding the historical points, exam findings, and any diagnostic results supporting the discharge/admit diagnosis, lab results, radiology results, the need for further work-up and treatment in the hospital. 05/20 13:23 Order name: Basic Metabolic Panel; Complete Time: 13:57 moraima 05/20 13:23 Order name: CBC with Diff; Complete Time: 13:57 moraima 05/20 13:23 Order name: LFT's; Complete Time: 13:57 05/20 13:23 Order name: Magnesium; Complete Time: 13:57 05/20 13:23 Order name: NT PRO-BNP; Complete Time: 13:57 05/20 13:23 Order name: PT-INR; Complete Time: 13:57 05/20 13:23 Order name: Troponin HS; Complete Time: 13:57 05/20 13:23 Order name: Lipase; Complete Time: 13:57 05/20 13:23 Order name: Urinalysis w/ reflexes 05/20 13:23 Order name: SARS RAPID; Complete Time: 13:57 05/20 13:23 Order name: Flu; Complete Time: 15:04 05/20 14:48 Order name: Lactate w/ 2H reflex if indic.; Complete Time: 15:46 05/20 13:23 Order name: XRAY Chest (1 view); Complete Time: 13:57 05/20 13:23 Order name: CT Abd/Pelvis - Without Contrast; Complete Time: 13:57 05/20 14:48 Order name: CT Aorta for Dissection; Complete Time: 16:20 05/20 14:48 Order name: US Abdomen Limited; Complete Time: 15:21 05/20 13:23 Order name: EKG; Complete Time: 13:25 [facility] 05/20 17:19 Order name: Heart Healthy EDMS 05/20 13:23 Order name: Cardiac monitoring; Complete Time: 13:25 [facility] 05/20 13:23 Order name: EKG - Nurse/Tech; Complete Time: 14:11 [facility] 05/20 13:23 Order name: IV Saline Lock; Complete Time: 13:25 [facility] 05/20 13:23 Order name: Labs collected and sent; Complete Time: 13:48 [facility] 05/20 13:23 Order name: O2 Per Protocol; Complete Time: 13:25 [facility] 05/20 13:23 Order name: O2 Sat Monitoring; Complete Time: 13:25 [facility] 05/20 13:58 Order name: IV Saline Lock - Large Bore; Complete Time: 14:34 [facility] EC:49 Rate is 58 beats/min. Rhythm is regular. QRS [place] is Normal. AL interval is normal. QRS moraima interval is normal. QT interval is normal. No Q waves. T waves are Normal. No ST changes noted. Clinical impression: NSR w/ Non-specific ST/T Changes and No evidence of ischemia. Interpreted by me. Reviewed by me. Administered Medications: 13:25 Drug: NS 0.9% IV 1000 ml Route: IV; Rate: 1 bolus; Site: right wrist; hb 13:55 Follow up: Response: No adverse reaction; IV Status: Completed infusion; IV Intake: ko1 900ml 13:54 Drug: Famotidine IVP 20 mg Route: IVP; Site: right hand; ko1 14:30 Follow up: Response: No adverse reaction hb 13:54 Drug: NS 0.9% IV 1000 ml Route: IV; Rate: 1 bolus; Site: right hand; ko1 14:55 Follow up: Response: No adverse reaction; IV Status: Completed infusion; IV Intake: hb 1000ml 14:37 Drug: Piperacillin-Tazobactam IVPB 3.375 grams Route: IVPB; Infused Over: 60 mins; ko1 Site: right wrist; 15:30 Follow up: Response: No adverse reaction; IV Status: Completed infusion; IV Intake: hb 100ml Disposition Summary: 05/20/23 19:38 Left Against Medical Advice Location: Home(05/20/23 19:38) as6 Condition: Stable(05/20/23 19:38) as6 Signatures: Dispatcher [employer] EDMS Promise Irizarry RN RN Rd Mercado MD MD cha Baxter, Heather, RN Robert Rodriguez RN RN as6 Daniela Langston RN RN ko1 Freda Jacobs, RN RN rd2 Corrections: (The following items were deleted from the chart) 13:20 13:19 PSHx: back and shoulder; ko1 ko1 13:20 13:19 PSHx: hyst; ko1 ko1 13:20 13:19 PSHx: AAA; ko1 ko1 18:21 15:[address] moraim[address]2 19:36 15:03 Telemetry/MedSurg (observation) moraima mw 19:36 18:21 208 rd2 mw 19:38 15:03 Observation moraima as6 19:38 15:03 Madan Pierre moraima as6 19:38 15:03 Fair moraima as6 19:38 15:03 new moraima as6 19:38 15:03 have improved moraima as6 19:38 15:03 Standard moraima as6 19:38 15:03 Epigastric abdominal tenderness moraima as6 19:38 15:03 Vomiting moraima as6 19:38 15:03 Hypotension, unspecified - resolved moraima as6 19:38 15:04 Elevated white blood cell count moraima as6 19:38 19:36 Telemetry/MedSurg (observation) mw as6 19:38 19:36 mw as6
--- NOTE | 2023-05-20 15:04 | ER ---
Nurse's Notes [facility] Name: Amanda Malik Age: 67 yrs Sex: Female : 1955 Arrival Date: 05/20/2023 Time: 13:10 Bed 2 Private MD: Diagnosis: Presentation: 05/20 13:13 Chief complaint: EMS states: patient was driving and pulled over due to abdominal pain ko1 and vomiting. She was diaphoretic with a sbp in the 80's on EMS arrival. 12 lead was negative. Symptoms started today. Chief complaint:. Coronavirus screen: At this time, the client does not indicate any symptoms associated with coronavirus-19. Ebola Screen: No symptoms or risks identified at this time. Initial Sepsis Screen: Does the patient meet any 2 criteria? No. Patient's initial sepsis screen is negative. Does the patient have a suspected source of infection? No. Patient's initial sepsis screen is negative. Risk Assessment: Do you want to hurt yourself or someone else? Patient reports no desire to harm self or others. Onset of symptoms was May 20, 2023. Care prior to arrival: Medication(s) given: Normal saline infusion, 500 mL, IV initiated. 20 GA, in the right wrist. Activity prior to arrival: vomiting. 13:13 Method Of Arrival: EMS: [facility] ko1 13:13 Acuity: EMILY 2 ko1 Triage Assessment: 13:30 General: Appears in no apparent distress. ill, Behavior is calm, cooperative, ko1 appropriate for age. Pain: Denies pain. Historical: - Allergies: 13:59 No Known Drug Allergies; hb - PMHx: 13:19 AAA; COPD; GERD; High Cholesterol; Hypertension; ko1 - Immunization history:: Adult Immunizations up to date. - Family history:: not pertinent. - Social history:: Smoking status: Patient denies any tobacco usage or history of. Screenin:12 [facility] ED Fall Risk Assessment (Adult) Score/Fall Risk Level 0 - 2 = Low Risk hb Oriented to surroundings, Maintained a safe environment. Abuse screen: Denies threats or abuse. Denies injuries from another. Nutritional screening: No deficits noted. Tuberculosis screening: No symptoms or risk factors identified. Assessment: 13:51 Reassessment: No changes from previously documented assessment. Patient and/or family ko1 updated on plan of care and expected duration. Pain level reassessed. Patient is alert, oriented x 3, equal unlabored respirations, skin warm/dry/pink. 15:00 Reassessment: Patient appears in no apparent distress at this time. Patient and/or hb family updated on plan of care and expected duration. Pain level reassessed. Patient is alert, oriented x 3, equal unlabored respirations, skin warm/dry/pink. 16:00 Reassessment: Patient appears in no apparent distress at this time. Patient and/or hb family updated on plan of care and expected duration. Pain level reassessed. Patient is alert, oriented x 3, equal unlabored respirations, skin warm/dry/pink. 17:00 Reassessment: Patient appears in no apparent distress at this time. Patient and/or hb family updated on plan of care and expected duration. Pain level reassessed. Patient is alert, oriented x 3, equal unlabored respirations, skin warm/dry/pink. 18:00 Reassessment: Patient appears in no apparent distress at this time. Patient and/or hb family updated on plan of care and expected duration. Pain level reassessed. Patient is alert, oriented x 3, equal unlabored respirations, skin warm/dry/pink. 19:16 General: pt refusing admission at this time. provider notified. AMA form signed. . lg3 Vital Signs: 13:13 BP 73 / 55; Pulse 64; Resp 18; Temp 98.8; Pulse Ox 98% on R/A; ko1 13:55 BP 102 / 70; Pulse 61; ko1 15:00 BP 129 / 72; Pulse 61; Resp 15; Pulse Ox 100% on R/A; hb 16:30 BP 124 / 74; Pulse 71; Resp 16; Pulse Ox 99% on R/A; hb 18:00 BP 100 / 71; Pulse 67; Resp 15; Pulse Ox 98% on R/A; hb ED Course: 13:12 Patient arrived in ED. mb9 13:16 Arm band placed on Patient placed in an exam room, on a stretcher. ll1 13:19 Rd Chamorro MD is Attending Physician. moraima 13:19 Triage completed. ko1 13:38 XRAY Chest (1 view) In Process Unspecified. EDMS 13:41 CT Abd/Pelvis - Without Contrast In Process Unspecified. EDMS 13:50 Greenberg, Hawa, RN is Primary Nurse. hb 14:00 Patient has correct armband on for positive identification. hb 14:00 Provided Education on: . hb 15:02 Madan Pierre is Hospitalizing Provider. moraima 15:04 US Abdomen Limited In Process Unspecified. EDMS 15:05 Maintain EMS IV. Dressing intact. Good blood return noted. Site clean \T\ dry. Gauge \T\ hb site: 20g R wrist. 15:10 Lactate w/ 2H reflex if indic. Sent. hb 15:45 CT Aorta for Dissection In Process Unspecified. EDMS 16:44 Urinalysis w/ reflexes Sent. ko1 18:46 No provider procedures requiring assistance completed. ko1 19:36 IV discontinued, intact, bleeding controlled, No redness/swelling at site. Pressure lg3 dressing applied. Administered Medications: 13:25 Drug: NS 0.9% IV 1000 ml Route: IV; Rate: 1 bolus; Site: right wrist; hb 13:55 Follow up: Response: No adverse reaction; IV Status: Completed infusion; IV Intake: ko1 900ml 13:54 Drug: Famotidine IVP 20 mg Route: IVP; Site: right hand; ko1 14:30 Follow up: Response: No adverse reaction hb 13:54 Drug: NS 0.9% IV 1000 ml Route: IV; Rate: 1 bolus; Site: right hand; ko1 14:55 Follow up: Response: No adverse reaction; IV Status: Completed infusion; IV Intake: hb 1000ml 14:37 Drug: Piperacillin-Tazobactam IVPB 3.375 grams Route: IVPB; Infused Over: 60 mins; ko1 Site: right wrist; 15:30 Follow up: Response: No adverse reaction; IV Status: Completed infusion; IV Intake: hb 100ml Medication: 14:00 VIS not applicable for this client. hb Intake: 13:55 IV: 900ml; Total: 900ml. ko1 14:55 IV: 1000ml; Total: 1900ml. hb 15:30 IV: 100ml; Total: 2000ml. hb Outcome: 15:03 Decision to Hospitalize by Provider. moraima 19:18 AMA AMA form signed lg3 19:18 Condition: stable 19:18 Instructed on AMA process 19:38 Patient left the ED. as6 Signatures: Dispatcher [employer] Rd Dale MD MD cha Baxter, Heather, RN RN hb Shey Joshua, RN RN lg3 Gabi Sandhu, RN RN ll1 Robert Woodward RN RN as6 Daniela Langston RN RN ko1 Dorina Barker RN RN mb9 Corrections: (The following items were deleted from the chart) 13:19 PSHx: back and shoulder; ko1 ko1 13:19 PSHx: hyst; ko1 ko1 : 13:19 PSHx: AAA; ko1 ko1 18:18 18:00 BP 137 / 83; Pulse 67bpm; Resp 15bpm; Pulse Ox 98% RA; hb hb 18:18 16:30 BP 132 / 82; Pulse 71bpm; Resp 16bpm; Pulse Ox 99% RA; hb hb
--- NOTE | 2023-05-20 15:09 | RAD REPORT ---
EXAM DESCRIPTION: US - Abdomen Exam Limited - 05/20/2023 3:02 pm CLINICAL HISTORY: ABD PAIN COMPARISON: Abdomen Exam Limited dated 05/22/2017 FINDINGS: The gallbladder demonstrates no gallstones. No pericholecystic fluid or gallbladder wall t hickening. The common bile duct is normal measuring 5-6 mm. The liver demonstrates no findings of intrahepatic biliary dilatation. IMPRESSION: Unremarkable examination.
--- NOTE | 2023-05-20 15:54 | RAD REPORT ---
EXAM DESCRIPTION: CT - Angio Aorta For Dissection - 05/20/2023 3:43 pm CLINICAL HISTORY: Chest pain radiating to the back. ABD PAIN COMPARISON: Angio Aorta For Dissection dated 05/24/2022; Angio Aorta For Dissection dated 09/14/2018; Abdomen Pelvis Wo Contrast dated 05/20/2023; Abdomen Exam Limited dated 05/20/2023 TECHNIQUE: CT angiography of the aorta was performed with MIPs. All CT scans are performed using dose optimization technique as appropriate and may include automated exposure control or mA/KV adjustment according to patient size. FINDINGS: A left aortic arch is present with normal branching pattern of the great vessels.No acute aortic finding is seen such as aneurysm, penetrating ulcer or dissection. Moderate atherosclerosis i nvolves the celiac axis, SMA origins. Infrarenal abdominal aortic aneurysm is seen, with endograft in place. Moderate mural thrombus is present throughout the endograft construct. No evidence of pulmonary embolism. The lungs are emphysematous but clear. Small hiatal hernia. Mild diffuse fatty liver.The spleen, pancreas, adrenal glands and kidneys are within normal limits fo r arterial phase imaging. No bowel obstruction, free fluid or abscess.Nonvisualized appendix.No pathologic enlarged lymphadenop athy identified.Small bilateral fat containing inguinal hernias. Hardware is present involving the lumbar spine. Postsurgical changes are present. IMPRESSION: No acute aortic finding is demonstrated. No acute abnormality seen.
[2023-05-20 16:53] LABS: Urine Bacteria None Seen /HPF (<20); Urine Bilirubin NEGATIVE (Negative); Urine Blood Negative (Negative); Urine Clarity Turbid (Clear); Urine Color Light-Yellow (Yellow); Urine Glucose NEGATIVE (Negative); Urine Mucus Slight /HPF (None Seen); Urine Protein NEGATIVE (Negative); Urine RBC <5 /HPF (None Seen); Urine Urobilinogen Normal (Normal); Urine pH 5.5 (5.0-7.0)
[2023-05-20] MEDS ORDERED: ONDANSETRON 4 MG/2 ML VIAL IV PRN (17:09)
[2023-05-20] MEDS ORDERED: ACETAMINOPHEN 500 MG TAB PO PRN (17:09)
[2023-05-20] MEDS ORDERED: ALBUTEROL 2.5 MG/3 ML NEB SOL NEB PRN (17:09)
--- NOTE | 2023-05-20 17:18 | P.HP ---
Certification for Inpatient Patient admitted to: Observation With expected LOS: <2 Midnights Patient will require the following post-hospital care: None Practitioner: I am a practitioner with admitting privileges, knowledge of patient current condition, hospital course, and medical plan of care. Services: Services provided to patient in accordance with Admission requirements found in Title 42 Section 412.3 of the Code of Federal Regulations Patient History Date of Service: 05/20/23 Reason for admission: Epigastric abdominal pain vomiting, hypertension History of Present Illness: This is a 76-year-old female with a history of AAA, COPD, GERD, high cholesterol, hypertension came to the ER with a complaint of abdominal pain and vomiting. The pain was sudden while patient was shopping ,sudden upper abdomen made her almost passed out, this only lasted for very short time. Patient reported nausea and bilious vomiting along with the pain. Patient denies fever, chills or weight loss, or any injury. Patient reports that she had similar episodes in the past but not this severe. ED course vital signs on admission 73/55, pulse rate 64, respiratory rate 18 pulse ox 98 on room air, heart rate is 58 bpm rhythm regular QRS axis is normal OK interval is normal QRS interval is normal QT interval is normal no Q waves T waves are normal no ST changes noted normal sinus rhythm with patient's blood pressure got better after receiving 2 L of normal saline, laboratory findings significant for WBC elevated 14. CT angio for dissection shows no acute aortic findings. Allergies No Known Drug Allergies Allergy (Verified 02/25/23 22:39) Unknown No Known Allergies Allergy (Uncoded 02/28/19 23:32) Unknown Home medications list reviewed: Yes Home Medications: Atorvastatin Calcium [Lipitor*] 10 mg PO BEDTIME 05/21/16 Escitalopram Oxalate 20 mg PO DAILY 02/28/19 Fluticasone/Vilanterol [Breo Ellipta 200-25 Mcg INH] 1 each IH DAILY 02/28/19 Omeprazole 20 mg PO BEDTIME 02/28/19 Benzonatate [Tessalon Perle*] 100 mg PO Q8HP PRN 7 Days #20 cap 02/28/23 levoFLOXacin [Levaquin*] 750 mg PO DAILY 5 Days #5 tab 02/28/23 - Past Medical/Surgical History Has patient received pneumonia vaccine in the past: Yes Diabetic: No -: Hyperlipidemia -: Hypertension -: GERD -: Depression -: COPD -: History of abdominal aortic aneurysm, status post stent -: Abdominal aortic aneurysm stent -: Cholecystectomy -: Appendectomy -: Hysterectomy -: Tonsillectomy -: Bladder suspension -: Shoulder Surgery -: Back Surgery Psychosocial/ Personal History: She is , has 3 children, 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 - Family History Sister History Unknown: Yes -: Heart disease, Hypertension, Lung disease, Cancer Father -: Heart disease, Lung disease, Diabetes Mother -: Heart disease, Other (see notes) Notes: COPD Osteoporosis - Social History Smoking Status: Never smoker Alcohol use: Yes CD- Drugs: No Caffeine use: Yes Review of Systems 10-point ROS is otherwise unremarkable General: As per HPI Eyes: Unremarkable ENT: Unremarkable Respiratory: Unremarkable Cardiovascular: As per HPI Gastrointestinal: Nausea, Vomiting, Abdominal Pain (Severe abdominal pain nausea vomiting just before admission) Musculoskeletal: Unremarkable Physical Examination - Physical Exam General: Alert, Oriented x3, Cooperative HEENT: Atraumatic, Normocephalic, PERRLA Neck: 2+ carotid pulse no bruit, JVD not distended Respiratory: Clear to auscultation bilaterally, Normal air movement Cardiovascular: No edema, Normal pulses, Regular rate/rhythm, Normal S1 S2 Capillary refill: >2 Seconds Gastrointestinal: Normal bowel sounds, No masses, No rebound, No guarding, Distended (Moderate, soft mild tenderness at this time) Musculoskeletal: No clubbing, No swelling Integumentary: No rashes, No breakdown, No significant lesion, No erythema Neurological: Normal gait, Normal speech, Normal strength at 5/5 x4 extr - Studies Laboratory Data (last 24 hrs) 05/20/23 05/20/23 05/20/23 13:29 13:29 13:29 WBC 14.00 H Hgb 15.8 H Hct 47.7 H Plt Count 272 PT 9.8 INR 0.89 Sodium 136 Potassium 4.0 BUN 15 Creatinine 0.80 Glucose 142 H Magnesium 2.1 Total Bilirubin 0.4 AST 12 L ALT 21 Alkaline Phosphatase 67 Lipase 49 Microbiology Data (last 24 hrs): 05/20/23 13:29 Nasopharnyx Influenza Type A Antigen Screen - Final 05/20/23 13:29 Nasopharnyx Influenza Type B Antigen Screen - Final Assessment and Plan - Plan Assessment and plan Abdominal pain and vomiting Hypotension Abdominal aortic aneurysm COPD GERD Hyperlipidemia Hypertension Assessment and plan Abdominal pain and vomiting: Abdominal aortic aneurysm: -Acute epigastric pain vomiting vomiting today. No pain at this time. -Ordered antibiotic, IV fluids rehydration -We will continue to monitor -Patient reports history of stable AAA for many years Hypotension Acute, blood pressure 73/55 in the ER, responded to fluid boluses of normal saline 1 L x 2. Patient reports that she has not been drinking well. Discussed the importance of hydration with the patient IV fluid ordered; will continue to monitor the patient's blood pressure closely COPD Chronic, controlled on Fluticasone/Vilanterol [Breo Ellipta 200-25 Mcg INH] 1 each IH DAILY. -Denies any recent exacerbation -Continue the current medications GERD: Chronic, controlled, on omeprazole, resume home medication -We will continue PPI Hyperlipidemia Chronic, controlled on atorvastatin, resume home medication Resume atorvastatin CODE STATUS full Diet heart healthy DVT prophylaxis ordered Discharge Plan: Home Plan to discharge in: 48 Hours - Advance Directives Does patient have a Living Will: No Does patient have a Durable POA for Healthcare: No - Code Status/Comfort Care Code Status Assessed: Yes (Full code) Code Status: Full Code Physician Review: Patient Assessed, Agree with Above Assessment and Plan Critical Care: No Time Spent Managing Pts Care (In Minutes): 55 (Minutes)
[2023-05-20] MEDS ORDERED: NA CHLORIDE 0.9% 1,000 ML IV SCH (18:00)
[2023-05-20 19:43] VITALS: TEMP 98.8
[2023-05-20 19:47] VITALS: BP 100/71; O2SAT 98
[2023-05-21] MEDS ORDERED: ENOXAPARIN 40 MG/0.4 ML SQ SCH (09:00)
--- NOTE | 2023-05-21 18:14 | P.DS ---
Admission Date: 05/20/23 Discharge Date: 05/21/23 Reason for Admission: Epigastric abdominal pain vomiting, hypertension Brief History of Present Illness: This is a 76-year-old female with a history of AAA, COPD, GERD, high cholesterol, hypertension came to the ER with a complaint of abdominal pain and vomiting. The the patient reported developing sudden upper abdomen while shopping which made her almost passed out. This only lasted for very short time. Patient reported nausea and bilious vomiting along with the pain. Patient reports that she had similar episodes in the past but not this severe. BP in the ED was 73/55, pulse rate 64, respiratory rate 18 pulse ox 98 on room air. Her blood pressure got better after receiving 2 L of normal saline, laboratory findings significant for WBC elevated 14. CT angio for dissection shows no acute aortic findings. Patient was hospitalized for further management Hospital Course: Diagnosis Hypotension Abdominal aortic aneurysm status post endograft COPD GERD Hyperlipidemia Patient was hospitalized for supportive measures including IV hydration and for BP monitoring. I was informed that patient signed out AGAINST MEDICAL ADVICE in the emergency department left. I was not informed and did not get a chance to convince her to stay for treatment. Vital Signs/Physical Exam: Temp Pulse Resp BP Pulse Ox 98.8 F 67 15 100/71 05/20/23 13:13 05/20/23 18:00 05/20/23 18:00 05/20/23 18:00 Laboratory Data at Discharge: WBC 14.00 thou/uL (4.3-10.9) H 05/20/23 13:29 Hgb 15.8 g/dL (12.0-15.0) H 05/20/23 13:29 Hct 47.7 % (36.0-45.0) H 05/20/23 13:29 Plt Count 272 thou/uL (152-406) 05/20/23 13:29 PT 9.8 SECONDS (9.5-12.5) 05/20/23 13:29 INR 0.89 05/20/23 13:29 Sodium 136 mEq/L (136-145) 05/20/23 13:29 Potassium 4.0 mEq/L (3.5-5.1) 05/20/23 13:29 BUN 15 mg/dL (7-18) 05/20/23 13:29 Creatinine 0.80 mg/dL (0.55-1.02) 05/20/23 13:29 Glucose 142 mg/dL (74-106) H 05/20/23 13:29 Magnesium 2.1 mg/dL (1.6-2.4) 05/20/23 13:29 Total Bilirubin 0.4 mg/dL (0.2-1.0) 05/20/23 13:29 AST 12 U/L (15-37) L 05/20/23 13:29 ALT 21 U/L (13-56) 05/20/23 13:29 Alkaline Phosphatase 67 U/L (45-117) 05/20/23 13:29 Lipase 49 U/L (13-75) 05/20/23 13:29 Home Medications: Atorvastatin Calcium [Lipitor*] 10 mg PO BEDTIME 05/21/16 Escitalopram Oxalate 20 mg PO DAILY 02/28/19 Fluticasone/Vilanterol [Breo Ellipta 200-25 Mcg INH] 1 each IH DAILY 02/28/19 Omeprazole 20 mg PO BEDTIME 02/28/19 Benzonatate [Tessalon Perle*] 100 mg PO Q8HP PRN 7 Days #20 cap 02/28/23 levoFLOXacin [Levaquin*] 750 mg PO DAILY 5 Days #5 tab 02/28/23 Followup: Herman Watkins MD [Primary Care Provider] -
--- NOTE | 2023-05-22 17:11 | EKG ---
Test Date: 2023-05-20 Test Time: 14:10:31 [employer] Supervisor: CJ MEASUREMENT RESULTS: Intervals: Rate: 58 TN: 130 QRSD: 68 QT: 462 QTc: 453 [place]: P: 85 TN: 130 QRS: 70 T: 73 INTERPRETIVE STATEMENTS: Sinus bradycardia Nonspecific T wave abnormality Abnormal ECG Electronically Signed On 05-22-23 17:06:46 CDT by Thien Joya
== END 2023-05-20 19:38 | disposition left against medical advice (07) | DRG 392 ==
LOC: ER 13:10 → ERHOLD 17:05
PROVIDERS: ADMIT Internal Medicine; ATTEND Internal Medicine
DX: R10.9 Unspecified abdominal pain (principal); I95.9 Hypotension, unspecified; K21.9 Gastro-esophageal reflux disease without esophagitis; I10 Essential (primary) hypertension; I71.40 Abdominal aortic aneurysm, without rupture, unspecified; E78.00 Pure hypercholesterolemia, unspecified; J44.9 Chronic obstructive pulmonary disease, unspecified; R11.0 Nausea; Z53.29 Procedure and treatment not carried out because of patient's decision for other reasons; Z90.49 Acquired absence of other specified parts of digestive tract; Z90.710 Acquired absence of both cervix and uterus; Z79.899 Other long term (current) drug therapy; Z20.822 Contact with and (suspected) exposure to COVID-19
CPT/HCPCS: 36415; 71045; 71275; 74175; 74176; 76705; 80048; 80076; 81001; 83605; 83690; 83735; 83880; 84484; 85025; 85610; 87804; 87811; 93005; 96361; 96365; 96375; 99284; J2543; J7030; Q9967

== ENCOUNTER 2023-06-03 20:46 | Observation (INO) | payer OTHER, BC ==
--- OUTSIDE RECORDS SUMMARY | 2023-06-03 20:59 | XMS REPORT | Continuity of Care Document ---
:1955 Author Organization [facility] t Address [address] [place] [address] [place] [id number] Care Team Providers Name Role Phone Herman Watkins Primary Care Physician Doctor Unassigned, [place] Attending Clinician Unavailable HERMAN WATKINS Attending Clinician Unavailable Herman Watkins MD Attending Clinician Lab, Ang - Db Attending Clinician Unavailable YUKI JOHNSON Attending Clinician Unavailable Eleni Nazario Attending Clinician YULIANA JACOBO Attending Clinician Unavailable Yuliana Lopez Attending Clinician REGLA REYNAGA Attending Clinician Unavailable Regla Patel Attending Clinician Ben Brush DO Attending Clinician ANGIE POOLE Attending Clinician Unavailable Virgilio ASCENCIO, Angie Pinto Attending Clinician Natali Baldwin MD Attending Clinician Sanchez ASCENCIO, Margarette Smyth Attending Clinician Vls-Lab Attending Clinician Unavailable ESAU SHIRLEY Attending Clinician Unavailable Nurse, [facility] Pob Immunization Attending Clinician Unavailable Esau Shirley DO Attending Clinician BEN BRUSH Attending Clinician Unavailable BEN BRUSH Attending Clinician Unavailable SKIP MERRILL Attending Clinician Unavailable Elias Bai MD Attending Clinician ELIAS BAI Attending Clinician Unavailable Gareth STATION ENGINEER MAIN LINE, Brandy A Attending Clinician BRANDY SERVIN Attending Clinician Unavailable Skip Merrill MD Attending Clinician Yemi Augustin S Attending Clinician Jack MUSEUM OR ZOO DIRECTOR, Jessika L Attending Clinician Brent OTYi L Attending Clinician Unavailable Lab, [facility] Fam Pob I Attending Clinician Unavailable EUGNEIA JIMENEZ Attending Clinician Unavailable Yuki Johnson MD Attending Clinician Lizeth STATION ENGINEER MAIN LINE, Aubrey Attending Clinician AUBREY WATERMAN Attending Clinician Unavailable KARL RUSSELL Attending [...] Active 2021-09 Overview : Univers a a 08 Formattin ity of 00:00: g of this [place] 00 note Medical might be Branch different from the original. Added automatic ally from request for surgery [id number] Reduced Reduced Disease Active Univers mobility mobility 5-12 ity of 00:00: [place] [facility] Dyspnea on Dyspnea on Disease Active U nivers minimal minimal 5-12 ity of exertion exertion 00:00: Medical Branch AAA AAA Disease Recurre [facility] (abdominal (abdominal nce 1-04 [facility] kes aortic aortic 00:00: Medical aneurysm) aneurysm) 00 Cent er Gastroesop Gastroesop Disease Active U nivers hageal hageal 3-26 ity of reflux reflux 00:00: [place] disease, disease, 00 Medica l esophagiti esophagiti [...] y of d type d type 00:00: [place] [facility] Essential Essential Disease Active Uni vers hypertensi hypertensi 1-27 it y of on on 00:00: [place] [facility] Chronic Chronic Disease Active 2015-09 Univers obstructiv obstructiv 0-05 it y of e e 00:00: [place] pulmonary pulmonary 00 Medi zan disease disease Branch with acute with acute exacerbati exacerbati on on Infection Infection Disease Active Uni vers of skin of skin 9 ity of due to due to 00:00: [place] methicilli methicilli 00 Me dical n n Branch resistant resistant Staphyloco Staphyloco ccus ccus aureus aureus (MRSA) (MRSA) Infection Infection Disease Active Uni vers of skin of skin 9 ity of due to due to 00:00: [place] methicilli methicilli 00 Me dical n n Branch resistant resistant Staphyloco Staphyloco ccus ccus aureus aureus (MRSA) (MRSA) Cyst of Cyst of Disease Active Univers left left 3-21 ity of kidney kidney 00:00: [place] [address] Medical Branch Hyperlipid Hyperlipid Disease Active 2014-09 U nivers emia emia 2-11 ity of 00:00: [place] [facility] 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 U nivers s of s of 2-11 ity of lumbosacra [place]umbosacra [place] 00 Medica l Branch Osteopenia Osteopenia Disease Active 2014-09 U nivers 2 ity of 00:00: [place] [address] Medical [place] Depression Depression Disease Active 2014-09 U nivers 2 ity of 00:00: [place] [address] Medical [place] Allergies, Adverse Reactions, Alerts Allergy Allergy Status Severity Reaction(s) Onset Inactive Treating Comm ents Source Name Type Date Date Clinician No Known DA Active U [facility] All[facility] 4-04 [place] s 00:00: [address] No Known DA Active U [facility]- [facility] 00:00: [address] No Known DA Active U [facility]- [facility] 00:00: [address] NO KNOWN Drug Active Univers ALLERGIE Class ity of S [facility] Social History Social Habit Start Date Stop Date Quantity Comments Source History SDOH University o f Alcohol Frequency [facility] edical Branch History SDOH University o f Alcohol Std Drinks [facility] History SDOH University o f Alcohol Binge [place] Medic [facility] [place] Gender identity Universit y of [facility] Sexual orientation Univer sity of [facility] Alcohol intake 2023-05-03 2023-05-03 Current drinker Unive rsity of 00:00:00 00:00:00 of alcohol [facility] (finding) Branch Exposure to 2022-11-29 2022-12-09 Not sure University SARS-CoV-2 (event) 00:00:00 13:34:[address] [facility] History of Social 2022-10-06 2022-10-06 Univers ity of function 00:00:00 00:00:[address] [facility] Tobacco use and 2022-08-24 2022-08-24 Smokeless tobacco Un iversity of exposure 00:00:00 00:00:00 non-user [facility] Alcohol Comment 2015-09-29 2015-09-29 occasional Universit y of 00:00:00 00:00:[address] [facility] History of tobacco 2008-09-29 Cigarette Smoker University of use 00:00:[address] [facility] Sex Assigned At [address] [address] [facility] 00:00:00 [facility]00 [facility] Smoking Status Start Date Stop Date Source Ex-smoker 2022-08-24 00:00:00 2022-08-24 00:00:00 [facility] Medical Branch Medications Ordered Filled Start Stop Current Ordering Indication Dosage Frequency Signature Comments Components Source Medication Medication Date Date Medication? Clinician (SIG) Name Name triamcinolo 2022- No [id number] 40mg U nivers ne 05-03 ity of acetonide 16:15: 15:12 [place] (KENALOG) 00 :00 Medical injection Branch 40 mg triamcinolo 2022- No [id number] 40mg 40 mg, Univers ne 05-03 Intramuscu ity of acetonide 16:15: 15:12 [place], ONCE, [place] (KE[place]LOG[place] 00 :00 1 dose, On Medi zan injection Wed Branch 40 mg 05/03/23 at 1115, Routine triamcinolo 2022- No [id number] 40mg U nivers ne 05-03 ity of acetonide 16:15: 15:12 [place] (KENALOG) 00 :00 Medical injection Branch 40 mg triamcinolo 2022- No [id number] 40mg 40 mg, Univers ne 05-03 Intramuscu ity of acetonide 16:15: 15:12 [place], ONCE, [place] (KE[place]LOG) 00 :00 1 dose, On Medi zan injection Wed Branch 40 mg 05/03/23 at 1115, Routine methylPREDN 2022-2022- No [id number] 80mg U nivers ISolone 05-03 ity of acetate 16:00: 15:21 [place] (DEPO-MEDRO 00 :00 Medical L) Branch injection 80 mg methylPREDN 2022- No [id number] 80mg 80 mg, Univers ISolone 05-03 Intramuscu ity o f acetate 16:00: 15:21 lar, ONCE, [place] (DEPO-MEDRO 00 :00 1 dose, On Me dical L) Wed Branch injection 05/03/23 at 80 mg 1100, Routine methylPREDN 2022-0 2022- No [id number] 80mg U nivers ISolone 05-03 ity of acetate 16:00: 15:21 [place] (DEPO-MEDRO 00 :00 Medical L) Branch injection 80 mg methylPREDN 2022-0 2022- No [id number] 80mg 80 mg, Univers ISolone 05-03 Intramuscu ity o f acetate 16:00: 15:21 lar, ONCE, [place] (DEPO-MEDRO 00 :00 1 dose, On Me dical L) Wed Branch injection 05/03/23 at 80 mg 1100, Routine semaglutide 2022-0 Yes [id number] .5mg inject 0.5 Univers (OZEMPIC) 7-31 mg under ity of 0.25 mg or 00:00: the skin [place] 0.5 mg (2 00 weekly. Medical mg/3 mL) Branch PnIj semaglutide 2022-0 Yes [id number] .5mg inject 0.5 Univers (OZEMPIC) 7-31 mg under ity of 0.25 mg or 00:00: the skin [place] 0.5 mg (2 00 weekly. Medical mg/3 mL) Branch PnIj semaglutide 2022-0 Yes [id number] .5mg inject 0.5 Univers (OZEMPIC) 7-31 mg under ity of 0.25 mg or 00:00: the skin [place] 0.5 mg (2 00 weekly. Medical mg/3 mL) Branch PnIj semaglutide 2022-0 Yes [id number] .5mg inject 0.5 Univers (OZEMPIC) 7-31 mg under ity of 0.25 mg or 00:00: the skin [place] 0.5 mg (2 00 weekly. Medical mg/3 mL) Branch PnIj semaglutide 2022-0 Yes [id number] .5mg inject 0.5 Univers (OZEMPIC) 7-31 mg under ity of 0.25 mg or 00:00: the skin [place] 0.5 mg (2 00 weekly. Medical mg/3 mL) Branch PnIj semaglutide 2022-0 Yes [id number] .5mg inject 0.5 Univers (OZEMPIC) 7-31 mg under ity of 0.25 mg or 00:00: the skin [place] 0.5 mg (2 00 weekly. Medical mg/3 mL) Branch PnIj semaglutide 2022-0 Yes [id number] .5mg inject 0.5 Univers (OZEMPIC) 7-31 mg under ity of 0.25 mg or 00:00: the skin [place] 0.5 mg (2 00 weekly. Medical mg/3 mL) Branch PnIj semaglutide 2022-0 Yes [id number] .5mg inject 0.5 Univers (OZEMPIC) 7-31 mg under ity of 0.25 mg or 00:00: the skin [place] 0.5 mg (2 00 weekly. Medical mg/3 mL) Branch PnIj semaglutide 2022-0 Yes [id number] .5mg inject 0.5 Univers (OZEMPIC) 7-31 mg under ity of 0.25 mg or 00:00: the skin [place] 0.5 mg (2 00 weekly. Medical mg/3 mL) Branch PnIj semaglutide 2022-0 Yes [id number] .5mg inject 0.5 Univers (OZEMPIC) 7-31 mg under ity of 0.25 mg or 00:00: the skin [place] 0.5 mg (2 00 weekly. Medical mg/3 mL) Branch PnIj semaglutide 2022-0 Yes [id number] .5mg inject 0.5 Univers (OZEMPIC) 7-31 mg under ity of 0.25 mg or 00:00: the skin [place] 0.5 mg (2 00 weekly. Medical mg/3 mL) Branch PnIj semaglutide 2022-0 Yes [id number] .5mg inject 0.5 Univers (OZEMPIC) 7-31 mg under ity of 0.25 mg or 00:00: the skin [place] 0.5 mg (2 00 weekly. Medical mg/3 mL) Branch PnIj semaglutide 2022-0 Yes [id number] .5mg inject 0.5 Univers (OZEMPIC) 7-31 mg under ity of 0.25 mg or 00:00: the skin [place] 0.5 mg (2 00 weekly. Medical mg/3 mL) Branch PnIj iopamidol 0 2022- No [id number] 100mL 100 mL, Univers (ISOVUE 02-2416 Intravenou ity o f 370-500 mL) 05:45: [...] 02-24 IV ity of (PHENERGAN) 02:30: 02:[facility] [place] 12.5 mg in 00 :00 ONCE, 1 Medica l NaCl 0.9% dose, On Branch (NS) 50 mL Ita IV 02/23/23 at piggyback 2130, GRACIELA proMETHazin 3-0 Yes [id number] 25mg Take 1 Univers e 25 mg 6-16 tablet by ity of tablet 00:00: mouth [place] 00 every 6 Medical (six) Branch hours as needed for Nausea and Vomiting (N/V). proMETHazin 2023-0 Yes [id number] 25mg Take 1 Univers e 25 mg 6-16 tablet by ity of tablet 00:00: mouth [place] 00 every 6 Medical (six) Branch hours as needed for Nausea and Vomiting (N/V). proMETHazin 2023-0 Yes [id number] 25mg Take 1 Univers e 25 mg 6-16 tablet by ity of tablet 00:00: mouth [place] 00 every 6 Medical (six) Branch hours as needed for Nausea and Vomiting (N/V). proMETHazin 2023-0 Yes [id number] 25mg Take 1 Univers e 25 mg 6-16 tablet by ity of tablet 00:00: mouth [place] 00 every 6 Medical (six) Branch hours as needed for Nausea and Vomiting (N/V). proMETHazin 2023-0 Yes [id number] 25mg Take 1 Univers e 25 mg 6-16 tablet by ity of tablet 00:00: mouth [place] 00 every 6 Medical (six) Branch hours as needed for Nausea and Vomiting (N/V). proMETHazin 2023-0 Yes [id number] 25mg Take 1 Univers e 25 mg 6-16 tablet by ity of tablet 00:00: mouth [place] 00 every 6 Medical (six) Branch hours as needed for Nausea and Vomiting (N/V). proMETHazin 2023-0 Yes [id number] 25mg Take 1 Univers e 25 mg 6-16 tablet by ity of tablet 00:00: mouth [place] 00 every 6 Medical (six) Branch hours as needed for Nausea and Vomiting (N/V). proMETHazin 2023-0 Yes [id number] 25mg Take 1 Univers e 25 mg 6-16 tablet by ity of tablet 00:00: mouth [place] 00 every 6 Medical (six) Branch hours as needed for Nausea and Vomiting (N/V). proMETHazin 3-0 Yes [id number] 25mg Take 1 Univers e 25 mg 6-16 tablet by ity of tablet 00:00: mouth [place] 00 every 6 Medical (six) Branch hours as needed for Nausea and Vomiting (N/V). proMETHazin 3-0 Yes [id number] 25mg Take 1 Univers e 25 mg 6-16 tablet by ity of tablet 00:00: mouth [place] 00 every 6 Medical (six) Branch hours as needed for Nausea and Vomiting (N/V). proMETHazin 3-0 Yes [id number] 25mg Take 1 Univers e 25 mg 6-16 tablet by ity of tablet 00:00: mouth [place] 00 every 6 Medical (six) Branch hours as needed for Nausea and Vomiting (N/V). proMETHazin 3-0 Yes [id number] 25mg Take 1 Univers e 25 mg 6-16 tablet by ity of tablet 00:00: mouth [place] 00 every 6 Medical (six) Branch hours as needed for Nausea and Vomiting (N/V). proMETHazin 2023-0 Yes [id number] 25mg Take 1 Univers e 25 mg 6-16 tablet by ity of tablet 00:00: mouth [place] 00 every 6 Medical (six) Branch hours as needed for Nausea and Vomiting (N/V). NaCl 0.9% 2022-0 2022- No 1000mL at 999 Uni vers (NS) bolus 6-15 06-16 mL/hr, ity of infusion 23:30: 00:48 1,000 [...] 02/23/23 at 1730, GRACIELA triamcinolo 2022- No [id number] 40mg Univers ne 02-13 ity of acetonide 16:15: 15:21 [place] (KENALOG) 00 :00 Medical injection Branch 40 mg triamcinolo 2022- No [id number] 40mg 40 mg, Univers ne 02-13 Intramuscu ity of acetonide 16:15: 15:21 [place], ONCE, [place] (KENALOG) 00 :00 1 dose, On Medi zan injection 02/13/23 Bran ch 40 mg at 1115, Routine triamcinolo 2022- No [id number] 40mg Univers ne 02-13 ity of acetonide 16:15: 15:21 [place] (KENALOG) 00 :00 Medical injection Branch 40 mg triamcinolo 2022- No [id number] 40mg 40 mg, Univers ne 02-13 Intramuscu ity of acetonide 16:15: 15:21 [place], ONCE, [place] (KENALOG) 00 :00 1 dose, On Medi zan injection 02/13/23 Bran ch 40 mg at 1115, Routine methylPREDN 2022- No [id number] 80mg Univers ISolone 02-13 ity of acetate 16:00: 15:20 [place] (DEPO-MEDRO 00 :00 Medical L) Branch injection 80 mg methylPREDN 2022- No [id number] 80mg 80 mg, Univers ISolone 02-13 Intramuscu ity o f acetate 16:00: 15:20 [place], ONCE, [place] (DEPO-MEDRO 00 :00 1 dose, On Va dical L) Mon02/13/23 Branch injection at 1100, 80 mg Routine methylPREDN 2022-0 2022- No [id number] 80mg Univers ISolone 02-13 06-05 ity of acetate 16:00: 15:20 [place] (DEPO-MEDRO 00 :00 Medical L) Branch injection 80 mg methylPREDN 2022-0 2022- No [id number] 80mg 80 mg, Univers ISolone 02-13 06-05 Intramuscu ity o f acetate 16:00: 15:20 lar, ONCE, [place] (DEPO-MEDRO 00 :00 1 dose, On Me dical L) Mon02/13/23 Branch injection at 1100, 80 mg Routine tretinoin 0 Yes [id number] Apply to Univers 0.025 % 6-05 area(s) at ity of cream 00:00: bedtime. [address] semaglutide Yes [id number] .25mg inject Univers (OZEMPIC) 6-05 0.25 mg ity of 0.25 mg or 00:00: under [place] 0.5 mg (2 00 skin Medical mg/3 mL) weekly. Branch PnIj tretinoin 0 Yes [id number] Apply to Univers 0.025 % 6-05 area(s) at ity of cream 00:00: bedtime. [address] semaglutide 0 Yes [id number] .25mg inject Univers (OZEMPIC) 6-05 0.25 mg ity of 0.25 mg or 00:00: under the [place] 0.5 mg (2 00 skin Medical mg/3 mL) weekly. Branch PnIj tretinoin 2022-0 Yes [id number] Apply to Univers 0.025 % 6-05 area(s) at ity of cream 00:00: bedtime. [address] semaglutide 0 Yes [id number] .25mg inject Univers (OZEMPIC) 6-05 0.25 mg ity of 0.25 mg or 00:00: under the [place] 0.5 mg (2 00 skin Medical mg/3 mL) weekly. Branch PnIj tretinoin 2022-0 Yes [id number] Apply to Univers 0.025 % 6-05 area(s) at ity of cream 00:00: bedtime. [address] semaglutide 2022-0 Yes [id number] .25mg inject Univers (OZEMPIC) 6-05 0.25 mg ity of 0.25 mg or 00:00: under the [place] 0.5 mg (2 00 skin Medical mg/3 mL) weekly. Branch PnIj tretinoin 2022-0 Yes [id number] Apply to Univers 0.025 % 6-05 area(s) at ity of cream 00:00: bedtime. [address] semaglutide 2022-0 Yes [id number] .25mg inject Univers (OZEMPIC) 6-05 0.25 mg ity of 0.25 mg or 00:00: under the [place] 0.5 mg (2 00 skin Medical mg/3 mL) weekly. Branch PnIj tretinoin 2022-0 Yes [id number] Apply to Univers 0.025 % 6-05 area(s) at ity of cream 00:00: bedtime. [address] semaglutide 2022-0 Yes [id number] .25mg inject Univers (OZEMPIC) 6-05 0.25 mg ity of 0.25 mg or 00:00: under the [place] 0.5 mg (2 00 skin Medical mg/3 mL) weekly. Branch PnIj tretinoin 2022-0 Yes [id number] Apply to Univers 0.025 % 6-05 area(s) at ity of cream 00:00: bedtime. [address] semaglutide 2022-0 Yes [id number] .25mg inject Univers (OZEMPIC) 6-05 0.25 mg ity of 0.25 mg or 00:00: under the [place] 0.5 mg (2 00 skin Medical mg/3 mL) weekly. Branch PnIj tretinoin 2022-0 Yes [id number] Apply to Univers 0.025 % 6-05 area(s) at ity of cream 00:00: bedtime. [address] semaglutide 2022-0 Yes [id number] .25mg inject Univers (OZEMPIC) 6-05 0.25 mg ity of 0.25 mg or 00:00: under the [place] 0.5 mg (2 00 skin Medical mg/3 mL) weekly. Branch PnIj tretinoin 2022-0 Yes [id number] Apply to Univers 0.025 % 6-05 area(s) at ity of cream 00:00: bedtime. [address] semaglutide 2022-0 Yes [id number] .25mg inject Univers (OZEMPIC) 6-05 0.25 mg ity of 0.25 mg or 00:00: under the [place] 0.5 mg (2 00 skin Medical mg/3 mL) weekly. Branch PnIj tretinoin 2022-0 Yes [id number] Apply to Univers 0.025 % 6-05 area(s) at ity of cream 00:00: bedtime. [address] semaglutide 0 Yes [id number] .25mg inject Univers (OZEMPIC) 6-05 0.25 mg ity of 0.25 mg or 00:00: under the [place] 0.5 mg (2 00 skin Medical mg/3 mL) weekly. Branch PnIj tretinoin 2022-0 Yes [id number] Apply to Univers 0.025 % 6-05 area(s) at ity of cream 00:00: bedtime. [address] semaglutide 0 Yes [id number] .25mg inject Univers (OZEMPIC) 6-05 0.25 mg ity of 0.25 mg or 00:00: under the [place] 0.5 mg (2 00 skin Medical mg/3 mL) weekly. Branch PnIj tretinoin 2022-0 Yes [id number] Apply to Univers 0.025 % 6-05 area(s) at ity of cream 00:00: bedtime. [address] semaglutide 0 Yes [id number] .25mg inject Univers (OZEMPIC) 6-05 0.25 mg ity of 0.25 mg or 00:00: under the [place] 0.5 mg (2 00 skin Medical mg/3 mL) weekly. Branch PnIj tretinoin 2022-0 Yes [id number] Apply to Univers 0.025 % 6-05 area(s) at ity of cream 00:00: bedtime. [address] semaglutide 0 Yes [id number] .25mg inject Univers (OZEMPIC) 6-05 0.25 mg ity of 0.25 mg or 00:00: under the [place] 0.5 mg (2 00 skin Medical mg/3 mL) weekly. Branch PnIj tretinoin 2022-0 Yes [id number] Apply to Univers 0.025 % 6-05 area(s) at ity of cream 00:00: bedtime. [address] Branch semaglutide 2022-0 Yes [id number] .25mg inject Univers (OZEMPIC) 6-05 0.25 mg ity of 0.25 mg or 00:00: under the [place] 0.5 mg (2 00 skin Medical mg/3 mL) weekly. Branch PnIj tretinoin 2022-0 Yes [id number] Apply to Univers 0.025 % 6-05 area(s) at ity of cream 00:00: bedtime. [address] semaglutide 2022-0 Yes [id number] .25mg inject Univers (OZEMPIC) 6-05 0.25 mg ity of 0.25 mg or 00:00: under the [place] 0.5 mg (2 00 skin Medical mg/3 mL) weekly. Branch PnIj tretinoin 2022-0 Yes [id number] Apply to Univers 0.025 % 6-05 area(s) at ity of cream 00:00: bedtime. [place] [address] Medical Branch tretinoin 2022-0 Yes [id number] Apply to Univers 0.025 % 6-05 area(s) at ity of cream 00:00: bedtime. [place] [address] Medical Branch tretinoin 2022-0 Yes [id number] Apply to Univers 0.025 % 6-05 area(s) at ity of cream 00:00: bedtime. [place] [address] Medical Branch tretinoin 2022-0 Yes [id number] Apply to Univers 0.025 % 6-05 area(s) at ity of cream 00:00: bedtime. [place] [address] Medical Branch tretinoin 2022-0 Yes [id number] Apply to Univers 0.025 % 6-05 area(s) at ity of cream 00:00: bedtime. [address] Branch tretinoin 2022-0 Yes [id number] Apply to Univers 0.025 % 6-05 area(s) at ity of cream 00:00: bedtime. [place] [facility] tretinoin 2022-0 Yes [id number] Apply to Univers 0.025 % 02-13 area(s) at ity of cream 00:00: bedtime. [place] [facility] semaglutide 0 2022- No [id number] .25mg inject Univers (OZEMPIC) 6 07-31 0.25 mg ity of 0.25 mg or 00:00: 00:00 under the [place] 0.5 mg (2 00 :00 skin Medical mg/3 mL) weekly. Branch PnIj OMEPRAZOLE 2022-0 Yes [id number] TAKE 1 Univers 20 mg 5-10 CAPSULE BY ity of capsule 00:00: MOUTH [place] EVERY DAY Medical Branch OMEPRAZOLE 2022-0 Yes [id number] TAKE 1 Univers 20 mg 5-10 CAPSULE BY ity of capsule 00:00: MOUTH [place] EVERY DAY Medical Branch OMEPRAZOLE 2022-0 Yes [id number] TAKE 1 Univers 20 mg 5-10 CAPSULE BY ity of capsule 00:00: MOUTH [place] EVERY DAY Medical Branch OMEPRAZOLE 2022-0 Yes [id number] TAKE 1 Univers 20 mg 5-10 CAPSULE BY ity of capsule 00:00: MOUTH [place] EVERY DAY Medical Branch OMEPRAZOLE 3-0 Yes [id number] TAKE 1 Univers 20 mg 5-10 CAPSULE BY ity of capsule 00:00: MOUTH [place] EVERY DAY Medical Branch OMEPRAZOLE 3-0 Yes [id number] TAKE 1 Univers 20 mg 5-10 CAPSULE BY ity of capsule 00:00: MOUTH [place] EVERY DAY Medical Branch OMEPRAZOLE 3-0 Yes [id number] TAKE 1 Univers 20 mg 5-10 CAPSULE BY ity of capsule 00:00: MOUTH [place] EVERY DAY Medical Branch OMEPRAZOLE 3-0 Yes [id number] TAKE 1 Univers 20 mg 5-10 CAPSULE BY ity of capsule 00:00: MOUTH [place] EVERY DAY Medical Branch OMEPRAZOLE 3-0 Yes [id number] TAKE 1 Univers 20 mg 5-10 CAPSULE BY ity of capsule 00:00: MOUTH [place] EVERY DAY Medical Branch OMEPRAZOLE 3-0 Yes [id number] TAKE 1 Univers 20 mg 5-10 CAPSULE BY ity of capsule 00:00: MOUTH [place] EVERY DAY Medical Branch OMEPRAZOLE 3-0 Yes [id number] TAKE 1 Univers 20 mg 5-10 CAPSULE BY ity of capsule 00:00: MOUTH [place] 00 EVERY DAY Medical Branch OMEPRAZOLE 2023-0 Yes [id number] TAKE 1 Univers 20 mg 5-10 CAPSULE BY ity of capsule 00:00: MOUTH [place] 00 EVERY DAY Medical Branch OMEPRAZOLE 2023-0 Yes [id number] TAKE 1 Univers 20 mg 5-10 CAPSULE BY ity of capsule 00:00: MOUTH [place] 00 EVERY DAY Medical Branch OMEPRAZOLE 2023-0 Yes [id number] TAKE 1 Univers 20 mg 5-10 CAPSULE BY ity of capsule 00:00: MOUTH [place] 00 EVERY DAY Medical Branch OMEPRAZOLE 2023-0 Yes [id number] TAKE 1 Univers 20 mg 5-10 CAPSULE BY ity of capsule 00:00: MOUTH [place] 00 EVERY DAY Medical Branch OMEPRAZOLE 2023-0 Yes [id number] TAKE 1 Univers 20 mg 5-10 CAPSULE BY ity of capsule 00:00: MOUTH [place] 00 EVERY DAY Medical Branch OMEPRAZOLE 2023-0 Yes [id number] TAKE 1 Univers 20 mg 5-10 CAPSULE BY ity of capsule 00:00: MOUTH [place] 00 EVERY DAY Medical Branch OMEPRAZOLE 2023-0 Yes [id number] TAKE 1 Univers 20 mg 5-10 CAPSULE BY ity of capsule 00:00: MOUTH [place] 00 EVERY DAY Medical Branch OMEPRAZOLE 2023-0 Yes [id number] TAKE 1 Univers 20 mg 5-10 CAPSULE BY ity of capsule 00:00: MOUTH [place] 00 EVERY DAY Medical Branch OMEPRAZOLE 2023-0 Yes [id number] TAKE 1 Univers 20 mg 5-10 CAPSULE BY ity of capsule 00:00: MOUTH [place] 00 EVERY DAY Medical Branch OMEPRAZOLE 2023-0 Yes [id number] TAKE 1 Univers 20 mg 5-10 CAPSULE BY ity of capsule 00:00: MOUTH [place] 00 EVERY DAY Medical Branch OMEPRAZOLE 2023-0 Yes [id number] TAKE 1 Univers 20 mg 5-10 CAPSULE BY ity of capsule 00:00: MOUTH [place] 00 EVERY DAY Medical Branch OMEPRAZOLE 2023-0 Yes [id number] TAKE 1 Univers 20 mg 5-10 CAPSULE BY ity of capsule 00:00: MOUTH [place] 00 EVERY DAY Medical Branch triamcinolo 2023-0 2023- No [id number] 40mg Univers ne 3-16 03-16 ity of acetonide 18:15: 17:42 [place] (KENALOG) 00 :00 Medical injection Branch 40 mg triamcinolo 0 2022- No [id number] 40mg 40 mg, Univers ne 11-24 Intramuscu ity of acetonide 18:15: 17:42 [place], ONCE, [place] (KENALOG) 00 :00 1 dose, On Medi zan injection Ita Branch 40 mg 11/24/22 at 1315, Routine triamcinolo 2022-0 2022- No [id number] 40mg Univers ne 11-24 ity of acetonide 18:15: 17:42 [place] (KENALOG) 00 :00 Medical injection Branch 40 mg triamcinolo 0 2022- No [id number] 40mg 40 mg, Univers ne 11-24 Intramuscu ity of acetonide 18:15: 17:42 [place], ONCE, [place] (KENALOG) 00 :00 1 dose, On Medi zan injection Ita Branch 40 mg 11/24/22 at 1315, Routine methylPREDN 2022-0 2022- No [id number] 80mg Univers ISolone 11-24 ity of acetate 18:00: 17:41 [place] (DEPO-MEDRO 00 :00 Medical L) Branch injection 80 mg methylPREDN 0 3- No [id number] 80mg 80 mg, Univers ISolone 11-24 Intramuscu ity o f acetate 18:00: 17:41 lar, ONCE, [place] (DEPO-MEDRO 00 :00 1 dose, On Me dical L) Ita Branch injection 11/24/22 at 80 mg 1300, Routine methylPREDN 0 2022- No [id number] 80mg Univers ISolone 11-24 ity of acetate 18:00: 17:41 [place] (DEPO-MEDRO 00 :00 Medical L) Branch injection 80 mg methylPREDN 0 3- No [id number] 80mg 80 mg, Univers ISolone 11-24 Intramuscu ity o f acetate 18:00: 17:41 lar, ONCE, [place] (DEPO-MEDRO 00 :00 1 dose, On Me dical L) [facility] injection 11/24/22 at 80 mg 1300, Routine diclofenac 2022-0 Yes [id number] 50mg Take 1 [facility] 50 mg EC 3-16 tablet by ity of tablet 00:00: mouth in [place] 00 the Medical morning Branch and 1 tablet in the evening. Take with meals. fluocinonid 2023-0 Yes [id number] Apply to Univers e 0.05 % 3-16 area(s) 2 ity of cream 00:00: (two) [place] 00 times Medical daily. Branch diclofenac 2023-0 Yes [id number] 50mg Take 1 [facility] 50 mg EC 3-16 tablet by ity of tablet 00:00: mouth in [place] 00 the Medical morning Branch and 1 tablet in the evening. Take with meals. fluocinonid 2023-0 Yes [id number] Apply to Univers e 0.05 % 3-16 area(s) 2 ity of cream 00:00: (two) [place] 00 times Medical daily. Branch diclofenac 3-0 Yes [id number] 50mg Take 1 [facility] 50 mg EC 3-16 tablet by ity of tablet 00:00: mouth in [place] [address] the Medical morning Branch and 1 tablet in the evening. Take with meals. fluocinonid 2023-0 Yes [id number] Apply to [facility] e 0.05 % 3-16 area(s) 2 ity of cream 00:00: (two) [place] 00 times Medical daily. Branch diclofenac 3-0 Yes [id number] 50mg Take 1 [facility] 50 mg EC 3-16 tablet by ity of tablet 00:00: mouth in [place] [address] the Medical morning Branch and 1 tablet in the evening. Take with meals. fluocinonid 2023-0 Yes [id number] Apply to Univers e 0.05 % 3-16 area(s) 2 ity of cream 00:00: (two) [place] 00 times Medical daily. Branch diclofenac 2023-0 Yes [id number] 50mg Take 1 [facility] 50 mg EC 3-16 tablet by ity of tablet 00:00: mouth in [place] 00 the Medical morning Branch and 1 tablet in the evening. Take with meals. fluocinonid 2023-0 Yes [id number] Apply to Univers e 0.05 % 3-16 area(s) 2 ity of cream 00:00: (two) [place] 00 times Medical daily. Branch diclofenac 2023-0 Yes [id number] 50mg Take 1 [facility] 50 mg EC 3-16 tablet by ity of tablet 00:00: mouth in [place] 00 the Medical morning Branch and 1 tablet in the evening. Take with meals. fluocinonid 2023-0 Yes [id number] Apply to [facility] e 0.05 % 3-16 area(s) 2 ity of cream 00:00: (two) [place] 00 times Medical daily. Branch diclofenac 2023-0 Yes [id number] 50mg Take 1 [facility] 50 mg EC 3-16 tablet by ity of tablet 00:00: mouth in [place] 00 the Medical morning Branch and 1 tablet in the evening. Take with meals. fluocinonid 2023-0 Yes [id number] Apply to [facility] e 0.05 % 3-16 area(s) 2 ity of cream 00:00: (two) [place] 00 times Medical daily. Branch diclofenac 2023-0 Yes [id number] 50mg Take 1 [facility] 50 mg EC 3-16 tablet by ity of tablet 00:00: mouth in [place] [address] the Medical morning Branch and 1 tablet in the evening. Take with meals. fluocinonid 3-0 Yes [id number] Apply to [facility] e 0.05 % 3-16 area(s) 2 ity of cream 00:00: (two) [place] 00 times Medical daily. Branch diclofenac 3-0 Yes [id number] 50mg Take 1 [facility] 50 mg EC 3-16 tablet by ity of tablet 00:00: mouth in [place] [address] the Medical morning Branch and 1 tablet in the evening. Take with meals. fluocinonid 3-0 Yes [id number] Apply to [facility] e 0.05 % 3-16 area(s) 2 ity of cream 00:00: (two) [place] 00 times Medical daily. Branch diclofenac 2023-0 Yes [id number] 50mg Take 1 [facility] 50 mg EC 3-16 tablet by ity of tablet 00:00: mouth in [place] [address] the Medical morning Branch and 1 tablet in the evening. Take with meals. fluocinonid 2023-0 Yes [id number] Apply to [facility] e 0.05 % 3-16 area(s) 2 ity of cream 00:00: (two) [place] 00 times Medical daily. Branch diclofenac 2023-0 Yes [id number] 50mg Take 1 [facility] 50 mg EC 3-16 tablet by ity of tablet 00:00: mouth in [place] [address] the Medical morning Branch and 1 tablet in the evening. Take with meals. fluocinonid 2023-0 Yes [id number] Apply to [facility] e 0.05 % 3-16 area(s) 2 ity of cream 00:00: (two) [place] 00 times Medical daily. Branch diclofenac 2023-0 Yes [id number] 50mg Take 1 [facility] 50 mg EC 3-16 tablet by ity of tablet 00:00: mouth in [place] 00 the Medical morning Branch and 1 tablet in the evening. Take with meals. fluocinonid 2023-0 Yes [id number] Apply to [facility] e 0.05 % 3-16 area(s) 2 ity of cream 00:00: (two) [place] 00 times Medical daily. Branch diclofenac 3-0 Yes [id number] 50mg Take 1 [facility] 50 mg EC 3-16 tablet by ity of tablet 00:00: mouth in [place] 00 the Medical morning Branch and 1 tablet in the evening. Take with meals. fluocinonid 3-0 Yes [id number] Apply to [facility] e 0.05 % 3-16 area(s) 2 ity of cream 00:00: (two) [place] 00 times Medical daily. Branch diclofenac 3-0 Yes [id number] 50mg Take 1 [facility] 50 mg EC 3-16 tablet by ity of tablet 00:00: mouth in [place] 00 the Medical morning Branch and 1 tablet in the evening. Take with meals. fluocinonid 2023-0 Yes [id number] Apply to [facility] e 0.05 % 3-16 area(s) 2 ity of cream 00:00: (two) [place] 00 times Medical daily. Branch diclofenac 2023-0 Yes [id number] 50mg Take 1 [facility] 50 mg EC 3-16 tablet by ity of tablet 00:00: mouth in [place] 00 the Medical morning Branch and 1 tablet in the evening. Take with meals. fluocinonid 2023-0 Yes [id number] Apply to [facility] e 0.05 % 3-16 area(s) 2 ity of cream 00:00: (two) [place] 00 times Medical daily. Branch diclofenac 2023-0 Yes [id number] 50mg Take 1 [facility] 50 mg EC 3-16 tablet by ity of tablet 00:00: mouth in [place] [address] the Medical morning Branch and 1 tablet in the evening. Take with meals. fluocinonid 2023-0 Yes [id number] Apply to [facility] e 0.05 % 3-16 area(s) 2 ity of cream 00:00: (two) [place] 00 times Medical daily. Branch diclofenac 3-0 Yes [id number] 50mg Take 1 [facility] 50 mg EC 3-16 tablet by ity of tablet 00:00: mouth in [place] 00 the Medical morning Branch and 1 tablet in the evening. Take with meals. fluocinonid 2023-0 Yes [id number] Apply to [facility] e 0.05 % 3-16 area(s) 2 ity of cream 00:00: (two) [place] 00 times Medical daily. Branch diclofenac 2023-0 Yes [id number] 50mg Take 1 [facility] 50 mg EC 3-16 tablet by ity of tablet 00:00: mouth in [place] 00 the Medical morning Branch and 1 tablet in the evening. Take with meals. fluocinonid 3-0 Yes [id number] Apply to [facility] e 0.05 % 3-16 area(s) 2 ity of cream 00:00: (two) [place] 00 times Medical daily. Branch diclofenac 2023-0 Yes [id number] 50mg Take 1 [facility] 50 mg EC 3-16 tablet by ity of tablet 00:00: mouth in [place] [address] the Medical morning Branch and 1 tablet in the evening. Take with meals. fluocinonid 3-0 Yes [id number] Apply to [facility] e 0.05 % 3-16 area(s) 2 ity of cream 00:00: (two) [place] 00 times Medical daily. Branch diclofenac 3-0 Yes [id number] 50mg Take 1 [facility] 50 mg EC 3-16 tablet by ity of tablet 00:00: mouth in [place] 00 the Medical morning Branch and 1 tablet in the evening. Take with meals. fluocinonid 2023-0 Yes [id number] Apply to [facility] e 0.05 % 3-16 area(s) 2 ity of cream 00:00: (two) [place] 00 times Medical daily. Branch diclofenac 2023-0 Yes [id number] 50mg Take 1 [facility] 50 mg EC 3-16 tablet by ity of tablet 00:00: mouth in [place] [address] the Medical morning Branch and 1 tablet in the evening. Take with meals. fluocinonid 2023-0 Yes [id number] Apply to [facility] e 0.05 % 3-16 area(s) 2 ity of cream 00:00: (two) [place] 00 times Medical daily. Branch diclofenac 3-0 Yes [id number] 50mg Take 1 [facility] 50 mg EC 3-16 tablet by ity of tablet 00:00: mouth in [place] 00 the Medical morning Branch and 1 tablet in the evening. Take with meals. fluocinonid 3-0 Yes [id number] Apply to [facility] e 0.05 % 3-16 area(s) 2 ity of cream 00:00: (two) [place] 00 times Medical daily. Branch diclofenac 3-0 Yes [id number] 50mg Take 1 [facility] 50 mg EC 3-16 tablet by ity of tablet 00:00: mouth in [place] 00 the Medical morning Branch and 1 tablet in the evening. Take with meals. fluocinonid 3-0 Yes [id number] Apply to [facility] e 0.05 % 3-16 area(s) 2 ity of cream 00:00: (two) [place] 00 times Medical daily. Branch diclofenac 3-0 Yes [id number] 50mg Take 1 [facility] 50 mg EC 3-16 tablet by ity of tablet 00:00: mouth in [place] [address] the Medical morning Branch and 1 tablet in the evening. Take with meals. fluocinonid 3-0 Yes [id number] Apply to [facility] e 0.05 % 3-16 area(s) 2 ity of cream 00:00: (two) [place] 00 times Medical daily. Branch diclofenac 3-0 Yes [id number] 50mg Take 1 [facility] 50 mg EC 3-16 tablet by ity of tablet 00:00: mouth in [place] [address] the Medical morning Branch and 1 tablet in the evening. Take with meals. fluocinonid 3-0 Yes [id number] Apply to [facility] e 0.05 % 3-16 area(s) 2 ity of cream 00:00: (two) [place] 00 times Medical daily. Branch diclofenac 3-0 Yes [id number] 50mg Take 1 [facility] 50 mg EC 3-16 tablet by ity of tablet 00:00: mouth in [place] [address] the Medical morning Branch and 1 tablet in the evening. Take with meals. fluocinonid 2023-0 Yes [id number] Apply to [facility] e 0.05 % 3-16 area(s) 2 ity of cream 00:00: (two) [place] 00 times Medical daily. Branch diclofenac 2023-0 Yes [id number] 50mg Take 1 [facility] 50 mg EC 3-16 tablet by ity of tablet 00:00: mouth in [place] 00 the Medical morning Branch and 1 tablet in the evening. Take with meals. fluocinonid Yes [id number] Apply to [facility] e 0.05 % 3-16 area(s) 2 ity of cream 00:00: (two) [place] 00 times Medical daily. Branch BREO Yes [id number] 1{puff} INHALE 1 U nivers ELLIPTA 2-15 PUFF DAILY ity of 100-25 00:00: [place] mcg/dose 00 Medical DsDv Branch BREO Yes [id number] 1{puff} INHALE 1 U nivers ELLIPTA 2-15 PUFF DAILY ity of 100-25 00:00: [place] mcg/dose 00 Medical DsDv Branch BREO Yes [id number] 1{puff} INHALE 1 U nivers ELLIPTA 2-15 PUFF DAILY ity of 100-25 00:00: [place] mcg/dose 00 Medical DsDv Branch BREO Yes [id number] 1{puff} INHALE 1 U nivers ELLIPTA 2-15 PUFF DAILY ity of 100-25 00:00: [place] mcg/dose 00 Medical DsDv Branch BREO Yes [id number] 1{puff} INHALE 1 U nivers ELLIPTA 2-15 PUFF DAILY ity of 100-25 00:00: [place] mcg/dose 00 Medical DsDv Branch BREO Yes [id number] 1{puff} INHALE 1 U nivers ELLIPTA 2-15 PUFF DAILY ity of 100-25 00:00: [place] mcg/dose 00 Medical DsDv Branch BREO Yes [id number] 1{puff} INHALE 1 U nivers ELLIPTA 2-15 PUFF DAILY ity of 100-25 00:00: [place] mcg/dose 00 Medical DsDv Branch BREO Yes [id number] 1{puff} INHALE 1 U nivers ELLIPTA 2-15 PUFF DAILY ity of 100-25 00:00: [place] mcg/dose 00 Medical DsDv Branch BREO Yes [id number] 1{puff} INHALE 1 U nivers ELLIPTA 2-15 PUFF DAILY ity of 100-25 00:00: [place] mcg/dose 00 Medical DsDv Branch BREO 2022-0 Yes [id number] 1{puff} INHALE 1 U nivers ELLIPTA 2-15 PUFF DAILY ity of 100-25 00:00: [place] mcg/dose 00 Medical DsDv Branch BREO 2022-0 Yes [id number] 1{puff} INHALE 1 U nivers ELLIPTA 2-15 PUFF DAILY ity of 100-25 00:00: [place] mcg/dose 00 Medical DsDv Branch BREO 2022-0 Yes [id number] 1{puff} INHALE 1 U nivers ELLIPTA 2-15 PUFF DAILY ity of 100-25 00:00: [place] mcg/dose 00 Medical DsDv Branch BREO 2022-0 Yes [id number] 1{puff} INHALE 1 U nivers ELLIPTA 2-15 PUFF DAILY ity of 100-25 00:00: [place] mcg/dose 00 Medical DsDv Branch BREO 2022-0 Yes [id number] 1{puff} INHALE 1 U nivers ELLIPTA 2-15 PUFF DAILY ity of 100-25 00:00: [place] mcg/dose 00 Medical DsDv Branch BREO 2022-0 Yes [id number] 1{puff} INHALE 1 U nivers ELLIPTA 2-15 PUFF DAILY ity of 100-25 00:00: [place] mcg/dose 00 Medical DsDv Branch BREO 2022-0 Yes [id number] 1{puff} INHALE 1 U nivers ELLIPTA 2-15 PUFF DAILY ity of 100-25 00:00: [place] mcg/dose 00 Medical DsDv Branch BREO 2022-0 Yes [id number] 1{puff} INHALE 1 U nivers ELLIPTA 2-15 PUFF DAILY ity of 100-25 00:00: [place] mcg/dose 00 Medical DsDv Branch BREO 2022-0 Yes [id number] 1{puff} INHALE 1 U nivers ELLIPTA 2-15 PUFF DAILY ity of 100-25 00:00: [place] mcg/dose 00 Medical DsDv Branch BREO 2022-0 Yes [id number] 1{puff} INHALE 1 U nivers ELLIPTA 2-15 PUFF DAILY ity of 100-25 00:00: [place] mcg/dose 00 Medical DsDv Branch BREO 2023-0 Yes [id number] 1{puff} INHALE 1 U nivers ELLIPTA 2-15 PUFF DAILY ity of 100-25 00:00: [place] mcg/dose 00 Medical DsDv Branch BREO 2022-0 Yes [id number] 1{puff} INHALE 1 U nivers ELLIPTA 2-15 PUFF DAILY ity of 100-25 00:00: [place] mcg/dose 00 Medical DsDv Branch BREO 2022-0 Yes [id number] 1{puff} INHALE 1 U nivers ELLIPTA 2-15 PUFF DAILY ity of 100-25 00:00: [place] mcg/dose 00 Medical DsDv Branch BREO 2022-0 Yes [id number] 1{puff} INHALE 1 U nivers ELLIPTA 2-15 PUFF DAILY ity of 100-25 00:00: [place] mcg/dose 00 Medical DsDv Branch BREO 2022-0 Yes [id number] 1{puff} INHALE 1 U nivers ELLIPTA 2-15 PUFF DAILY ity of 100-25 00:00: [place] mcg/dose 00 Medical DsDv Branch BREO 2022-0 Yes [id number] 1{puff} INHALE 1 U nivers ELLIPTA 2-15 PUFF DAILY ity of 100-25 00:00: [place] mcg/dose 00 Medical DsDv Branch BREO 2022-0 Yes [id number] 1{puff} INHALE 1 U nivers ELLIPTA 2-15 PUFF DAILY ity of 100-25 00:00: [place] mcg/dose 00 Medical DsDv Branch BREO 2022-0 Yes [id number] 1{puff} INHALE 1 U nivers ELLIPTA 2-15 PUFF DAILY ity of 100-25 00:00: [place] mcg/dose 00 Medical DsDv Branch BREO 2022-0 Yes [id number] 1{puff} INHALE 1 U nivers ELLIPTA 2-15 PUFF DAILY ity of 100-25 00:00: [place] mcg/dose 00 Medical DsDv Branch mupirocin 2 2022- No [id number] Apply to Univers % ointment 2-13 07 area(s) ity o f 00:00: 05:59 every 12 [place] 00 :00 (twelve) Medical hours for Branch 21 days. mupirocin 2 2022- No [id number] Apply to Univers % ointment 10-24-07 area(s) ity o f 00:00: 05:59 every 12 [place] 00 :00 (twelve) Medical hours for Branch 21 days. albuterol 2022- No 2.5mg 2.5 mg, Uni vers (PROVENTIL) 10-06 Inhalation i ty of 2.5 mg /3 18:00: 18:03 , ONCE, 1 [place] (0.083 00 :00 dose, On Medica l %) [facility] nebulizer 10/06/22 at solution 1215, 2.5 mg Routine, PACU albuterol 2022- No 2.5mg 2.5 mg, Uni vers (PROVENTIL) 10-06 Inhalation i ty of 2.5 mg /3 18:00: 18:03 , ONCE, 1 [place] (0.083 00 :00 dose, On Medica l %) [facility] nebulizer 10/06/22 at solution 1215, 2.5 mg [...] [place] (SENSORCAIN 00 :17 10/06/22 at [facility]) 0.5 0923, Branch % (5 mg/mL) Intra-op [...] 10/06/22 at Medical injection 0800, Branch Until Mon10/06/22 at 1131, Routine, Intra-op ceFAZolin 2022- No PRN, Univers (ANCEF) 3 10-06 Starting ity o f g, 13:15: 17:31 on [facility] gentamicin 00 :17 10/06/22 at Med ical 240 mg in 0715, [place] NaCl 0.9% Intra-op (NS) 3,000 mL OR irrigation gentian 2022- No PRN, Univers simni 1 % 10-06 Starting ity of solution 13:15: 17:31 on [facility] [place] 00 :17 10/06/22 at Medical 0715, Branch [...] 10/06/22 at 0615, Routine, DSU Pre-op lactated 2022-0 2022- No 1000mL at 42 Unive rs ringers IV 10-06 mL/hr, ity of infusion 11:30: 11:48 1,000 mL, [place] 1,000 mL 00 :00 IV Medical Infusion, Branch ONCE, 1 dose, On [place] 10/06/22 at 0530, Routine, DSU Pre-op lactated 2022-0 2022- No 1000mL at 42 Unive rs ringers IV 10-06 mL/hr, ity of infusion 11:30: 11:48 1,000 mL, [place] 1,000 mL 00 :00 IV Medical Infusion, Branch ONCE, 1 dose, On [place] 10/06/22 at 0530, Routine, DSU Pre-op acetaminoph 2022- No 1000mg 1,000 mg, Univers en 10-06 Oral, O.R. ity of (TYLENOL) 11:29: 11:47 [place] tablet 04 :00 ONCE, 1 Medical 1,000 mg dose, Branch Starting on [place] 10/06/22 at 0529, Until Discontinu ed, Routine, Pain (scale 1-3), DSU Pre-op acetaminoph 2022- No 1000mg 1,000 mg, Univers en 10-06 Oral, O.R. ity of (TYLENOL) 11:29: 11:47 [place] tablet 04 :00 ONCE, 1 Medical 1,000 mg dose, Branch Starting on [place] 10/06/22 at 0529, Until Discontinu ed, Routine, Pain [...] Surgery/Pr ocedure, DSU Pre-op celecoxib 2022-2022- No [id number] 100mg Take 1 [facility] (CELEBREX) 10-06 capsule by it y of 100 mg 00:00: 05:59 mouth in [place] capsule 00 :00 the Medical morning Branch and 1 capsule in the evening. Take with meals. Do all this for 7 days. celecoxib 2022-2022- No [id number] 100mg Take 1 [facility] (CELEBREX) 10-06 capsule by it y of 100 mg 00:00: 05:59 mouth in [place] capsule 00 :00 the Medical morning Branch and 1 capsule in the evening. Take with meals. Do all this for 7 days. celecoxib 2022-2022- No [id number] 100mg Take 1 [facility] (CELEBREX) 10-06- capsule by it y of 100 mg 00:00: 05:59 mouth in [place] capsule 00 :00 the Medical morning Branch and 1 capsule in the evening. Take with meals. Do all this for 7 days. celecoxib 2022-0 2022- No [id number] 100mg Take 1 [facility] (CELEBREX) 10-06- capsule by it y of 100 mg 00:00: 05:59 mouth in [place] capsule 00 :00 the Medical morning Branch and 1 capsule in the evening. Take with meals. Do all this for 7 days. celecoxib 2022-0 2022- No [id number] 100mg Take 1 [facility] (CELEBREX) 10-06- capsule by it y of 100 mg 00:00: 05:59 mouth in [place] capsule 00 :00 the Medical morning Branch and 1 capsule in the evening. Take with meals. Do all this for 7 days. celecoxib 2022-0 2022- No [id number] 100mg Take 1 [facility] (CELEBREX) 10-06 capsule by it y of 100 mg 00:00: 05:59 mouth in [place] capsule 00 :00 the Medical morning Branch and 1 capsule in the evening. Take with meals. Do all this for 7 days. gabapentin 2022-0 2022- No [id number] 600mg Take 2 [facility] 300 mg 1-10 -25 capsules ity of capsule 00:00: 05:59 by mouth [place] 00 :00 every 8 Medical (eight) Branch hours for 14 days. celecoxib 2022-0 2022- No [id number] 200mg Take 2 [facility] 100 mg -10 -25 capsules ity of capsule 00:00: 05:59 by mouth [place] 00 :00 in the Medical morning Branch and 2 capsules in the evening. Take with meals. Do all this for 14 days. acetaminoph 2023-0 2022- No [id number] 1000mg Take 2 Univers en 500 mg 1-10 -25 tablets by ity of tablet 00:00: 05:59 mouth [place] 00 :00 every 8 Medical (eight) Branch hours for 14 days. OTC gabapentin 202-0 2022- No [id number] 600mg Take 2 [facility] 300 mg 1-10 -25 capsules ity of capsule 00:00: 05:59 by mouth [place] 00 :00 every 8 Medical ([facility]) Branch hours for 14 days. celecoxib 2023-0 202- No [id number] 200mg Take 2 Univers 100 mg 1-10 01-25 capsules ity of capsule 00:00: 05:59 by mouth [place] 00 :00 in the Medical morning Branch and 2 capsules in the evening. Take with meals. Do all this for 14 days. acetaminoph 2023-0 202- No [id number] 1000mg Take 2 [facility] en 500 mg 1-10 01-25 tablets by ity of tablet 00:00: 05:59 mouth [place] 00 :00 every 8 Medical ([facility]) Branch hours for 14 days. OTC gabapentin 2023-0 202- No [id number] 600mg Take 2 [facility] 300 mg 1-10 -25 capsules ity of capsule 00:00: 05:59 by mouth [place] 00 :00 every 8 [facility] ([facility]) Branch hours for 14 days. celecoxib 2023-0 202- No [id number] 200mg Take 2 Univers 100 mg 1-10 01-25 capsules ity of capsule 00:00: 05:59 by mouth [place] 00 :00 in the Medical morning Branch and 2 capsules in the evening. Take with meals. Do all this for 14 days. acetaminoph 2023-0 2022- No [id number] 1000mg Take 2 Univers en 500 mg 1-10 -25 tablets by ity of tablet 00:00: 05:59 mouth [place] 00 :00 every 8 Medical ([facility]) Branch hours for 14 days. OTC gabapentin 2023-0 2022- No [id number] 600mg Take 2 [facility] 300 mg 1-10 01-25 capsules ity of capsule 00:00: 05:59 by mouth [place] 00 :00 every 8 Medical (eight) Branch hours for 14 days. celecoxib 2023-0 202- No [id number] 200mg Take 2 [facility] 100 mg 1-10 01-25 capsules ity of capsule 00:00: 05:59 by mouth [place] 00 :00 in the Medical morning Branch and 2 capsules in the evening. Take with meals. Do all this for 14 days. acetaminoph 2023-0 202- No [id number] 1000mg Take 2 [facility] en 500 mg 1-10 01-25 tablets by ity of tablet 00:00: 05:59 mouth [place] 00 :00 every 8 Medical ([facility]) Branch hours for 14 days. OTC gabapentin 2023-0 2023- No [id number] 600mg Take 2 [facility] 300 mg 1-10 -25 capsules ity of capsule 00:00: 05:59 by mouth [place] 00 :00 every 8 [facility] ([facility]) Branch hours for 14 days. celecoxib 2023-0 2023- No [id number] 200mg Take 2 [facility] 100 mg 1-10 -25 capsules ity of capsule 00:00: 05:59 by mouth [place] 00 :00 in the Medical morning Branch and 2 capsules in the evening. Take with meals. Do all this for 14 days. acetaminoph 2023-0 2023- No [id number] 1000mg Take 2 Univers en 500 mg 1-10 -25 tablets by ity of tablet 00:00: 05:59 mouth [place] 00 :00 every 8 [facility] ([facility]) Branch hours for 14 days. OTC gabapentin 2023-0 2023- No [id number] 600mg Take 2 [facility] 300 mg 1-10 -25 capsules ity of capsule 00:00: 05:59 by mouth [place] 00 :00 every 8 [facility] ([facility]) Branch hours for 14 days. celecoxib 2023-0 2023- No [id number] 200mg Take 2 [facility] 100 mg 1-10 -25 capsules ity of capsule 00:00: 05:59 by mouth [place] 00 :00 in the Medical morning Branch and 2 capsules in the evening. Take with meals. Do all this for 14 days. acetaminoph 2023-0 2023- No [id number] 1000mg Take 2 [facility] en 500 mg 1-10 -25 tablets by ity of tablet 00:00: 05:59 mouth [place] 00 :00 every 8 [facility] ([facility]) Branch hours for 14 days. OTC gabapentin 2023-0 2023- No [id number] 600mg Take 2 [facility] 300 mg 1-10 01-25 capsules ity of capsule 00:00: 05:59 by mouth [place] 00 :00 every 8 [facility] (eight) Branch hours for 14 days. celecoxib 2023-0 2023- No [id number] 200mg Take 2 Univers 100 mg 1-10 01-25 capsules ity of capsule 00:00: 05:59 by mouth [place] 00 :00 in the Medical morning Branch and 2 capsules in the evening. Take with meals. Do all this for 14 days. acetaminoph 2023-0 2023- No [id number] 1000mg Take 2 [facility] en 500 mg 1-10 -25 tablets by ity of tablet 00:00: 05:59 mouth [place] 00 :00 every 8 Medical (eight) Branch hours for 14 days. OTC gabapentin 2023-0 2023- No [id number] 600mg Take 2 [facility] 300 mg 1-10 -25 capsules ity of capsule 00:00: 05:59 by mouth [place] 00 :00 every 8 Medical (eight) Branch hours for 14 days. celecoxib 2023-0 2023- No [id number] 200mg Take 2 [facility] 100 mg 1-10 -25 capsules ity of capsule 00:00: 05:59 by mouth [place] 00 :00 in the Medical morning Branch and 2 capsules in the evening. Take with meals. Do all this for 14 days. acetaminoph 2023-0 2022- No [id number] 1000mg Take 2 [facility] en 500 mg 1-10 -25 tablets by ity of tablet 00:00: 05:59 mouth [place] 00 :00 every 8 [facility] ([facility]) Branch hours for 14 days. OTC gabapentin 2023-0 3- No [id number] 600mg Take 2 [facility] 300 mg 1-10 -25 capsules ity of capsule 00:00: 05:59 by mouth [place] 00 :00 every 8 [facility] ([facility]) Branch hours for 14 days. celecoxib 2023-0 3- No [id number] 200mg Take 2 [facility] 100 mg 1-10 -25 capsules ity of capsule 00:00: 05:59 by mouth [place] 00 :00 in the Medical morning Branch and 2 capsules in the evening. Take with meals. Do all this for 14 days. acetaminoph 2023-0 3- No [id number] 1000mg Take 2 [facility] en 500 mg 1-10 -25 tablets by ity of tablet 00:00: 05:59 mouth [place] 00 :00 every 8 [facility] (eight) Branch hours for 14 days. OTC gabapentin 2023-0 3- No [id number] 600mg Take 2 [facility] 300 mg 1-10 01-25 capsules ity of capsule 00:00: 05:59 by mouth [place] 00 :00 every 8 [facility] (eight) Branch hours for 14 days. celecoxib 2023-0 2023- No [id number] 200mg Take 2 [facility] 100 mg -10 -25 capsules ity of capsule 00:00: 05:59 by mouth [place] 00 :00 in the Medical morning Branch and 2 capsules in the evening. Take with meals. Do all this for 14 days. acetaminoph 202-0 2022- No [id number] 1000mg Take 2 [facility] en 500 mg -10 -25 tablets by ity of tablet 00:00: 05:59 mouth [place] 00 :00 every 8 Medical (eight) Branch hours for 14 days. OTC gabapentin 2022-0 2022- No [id number] 600mg Take 2 [facility] 300 mg -10 -25 capsules ity of capsule 00:00: 05:59 by mouth [place] 00 :00 every 8 Medical (eight) Branch hours for 14 days. acetaminoph 2022-0 2022- No [id number] 1000mg Take 2 Univers en 500 mg 09-20-25 tablets by ity of tablet 00:00: 05:59 mouth [place] 00 :00 every 8 Medical (eight) Branch hours for 14 days. OTC gabapentin 2022-0 2022- No [id number] 600mg Take 2 [facility] 300 mg 09-20-25 capsules ity of capsule 00:00: 05:59 by mouth [place] 00 :00 every 8 Medical (eight) Branch hours for 14 days. acetaminoph 2022-0 2022- No [id number] 1000mg Take 2 [facility] en 500 mg 09-20-25 tablets by ity of tablet 00:00: 05:59 mouth [place] 00 :00 every 8 Medical (eight) Branch hours for 14 days. OTC clindamycin 202-0 2022- No [id number] 300mg Take 1 [facility] 300 mg 09-20-18 capsule by ity of capsule 00:00: 05:59 mouth 4 [place] 00 :00 (four) Medical times Branch daily for 7 days. clindamycin 2023-0 2022- No [id number] 300mg Take 1 [facility] 300 mg -10 -18 capsule by ity of capsule 00:00: 05:59 mouth 4 [place] 00 :00 (four) Medical times Branch daily for 7 days. celecoxib 2023-0 2022- No [id number] 200mg Take 1 [facility] (CELEBREX) 1-10 01-18 capsule by it y of 200 mg 00:00: 05:59 mouth in [place] capsule 00 :00 the Medical morning Branch and 1 capsule in the evening. Take with meals. Do all this for 7 days. clindamycin 2023-0 2023- No [id number] 300mg Take 1 [facility] 300 mg 09-20 capsule by ity of capsule 00:00: 05:59 mouth 4 [place] 00 :00 ([facility] daily for 7 days. celecoxib 2022-0 202- No [id number] 200mg Take 1 [facility] (CELEBREX) 09-20 capsule by it y of 200 mg 00:00: 05:59 mouth in [place] capsule 00 :00 the Medical morning Branch and 1 capsule in the evening. Take with meals. Do all this for 7 days. clindamycin 202-0 202- No [id number] 300mg Take 1 [facility] 300 mg 09-20 capsule by ity of capsule 00:00: 05:59 mouth 4 [place] 00 :00 ([facility] daily for 7 days. celecoxib 2022-0 2022- No [id number] 200mg Take 1 [facility] (CELEBREX) 09-20 capsule by it y of 200 mg 00:00: 05:59 mouth in [place] capsule 00 :00 the [facility] morning Branch and 1 capsule in the evening. Take with meals. Do all this for 7 days. clindamycin 2023-0 2022- No [id number] 300mg Take 1 [facility] 300 mg 09-20 capsule by ity of capsule 00:00: 05:59 mouth 4 [place] 00 :00 ([facility] daily for 7 days. celecoxib 2023-0 3- No [id number] 200mg Take 1 [facility] (CELEBREX) 09-20 capsule by it y of 200 mg 00:00: 05:59 mouth in [place] capsule 00 :00 the [facility] morning Branch and 1 capsule in the evening. Take with meals. Do all this for 7 days. clindamycin 2023-0 202- No [id number] 300mg Take 1 [facility] 300 mg 09-20 capsule by ity of capsule 00:00: 05:59 mouth 4 [place] 00 :00 ([facility] daily for 7 days. celecoxib 2023-0 2023- No [id number] 200mg Take 1 [facility] (CELEBREX) 09-20 capsule by it y of 200 mg 00:00: 05:59 mouth in [place] capsule 00 :00 the Medical morning Branch and 1 capsule in the evening. Take with meals. Do all this for 7 days. clindamycin 2022-2022- No [id number] 300mg Take 1 [facility] 300 mg 09-20 capsule by ity of capsule 00:00: 05:59 mouth 4 [place] 00 :00 ([facility] times [place] daily for 7 days. celecoxib 2022- No [id number] 200mg Take 1 [facility] (CELEBREX) 09-20 capsule by it y of 200 mg 00:00: 05:59 mouth in [place] capsule 00 :00 the Medical morning Branch and 1 capsule in the evening. Take with meals. Do all this for 7 days. clindamycin 2022- No [id number] 300mg Take 1 [facility] 300 mg 09-20 capsule by ity of capsule 00:00: 05:59 mouth 4 [place] 00 :00 ([facility] times [place] daily for 7 days. celecoxib 2022- No [id number] 200mg Take 1 [facility] (CELEBREX) 09-20 capsule by it y of 200 mg 00:00: 05:59 mouth in [place] capsule 00 :00 the [facility] morning Branch and 1 capsule in the evening. Take with meals. Do all this for 7 days. ESCITALOPRA 2021-09 Yes [id number] TAKE 1 [facility] M OXALATE 2-28 TABLET BY ity o f 20 mg 00:00: MOUTH [place] tablet 00 EVERY DAY Medical Branch ESCITALOPRA 2021-09 Yes [id number] TAKE 1 [facility] M OXALATE 2-28 TABLET BY ity o f 20 mg 00:00: MOUTH [place] tablet 00 EVERY DAY Medical Branch ESCITALOPRA 2021-09 Yes [id number] TAKE 1 [facility] M OXALATE 2-28 TABLET BY ity o f 20 mg 00:00: MOUTH [place] tablet 00 EVERY DAY Medical Branch ESCITALOPRA 2021-09 Yes [id number] TAKE 1 [facility] M OXALATE 2-28 TABLET BY ity o f 20 mg 00:00: MOUTH [place] tablet 00 EVERY DAY Medical Branch ESCITALOPRA 2021-09 Yes [id number] TAKE 1 [facility] M OXALATE 2-28 TABLET BY ity o f 20 mg 00:00: MOUTH [place] tablet 00 EVERY DAY Medical Branch ESCITALOPRA 2021-09 Yes [id number] TAKE 1 [facility] M OXALATE 2-28 TABLET BY ity o f 20 mg 00:00: MOUTH [place] tablet 00 EVERY DAY Medical Branch ESCITALOPRA 2021-09 Yes [id number] TAKE 1 [facility] M OXALATE 2-28 TABLET BY ity o f 20 mg 00:00: MOUTH [place] tablet 00 EVERY DAY Medical Branch ESCITALOPRA 2021-09 Yes [id number] TAKE 1 [facility] M OXALATE 2-28 TABLET BY ity o f 20 mg 00:00: MOUTH [place] tablet 00 EVERY DAY Medical Branch ESCITALOPRA 2021-09 Yes [id number] TAKE 1 [facility] M OXALATE 2-28 TABLET BY ity o f 20 mg 00:00: MOUTH [place] tablet 00 EVERY DAY Medical Branch ESCITALOPRA 2021-09 Yes [id number] TAKE 1 [facility] M OXALATE 2-28 TABLET BY ity o f 20 mg 00:00: MOUTH [place] tablet 00 EVERY DAY Medical Branch ESCITALOPRA 2021-09 Yes [id number] TAKE 1 [facility] M OXALATE 2-28 TABLET BY ity o f 20 mg 00:00: MOUTH [place] tablet 00 EVERY DAY Medical Branch ESCITALOPRA 2021-09 Yes [id number] TAKE 1 [facility] M OXALATE 2-28 TABLET BY ity o f 20 mg 00:00: MOUTH [place] tablet 00 EVERY DAY Medical Branch ESCITALOPRA 2021-09 Yes [id number] TAKE 1 [facility] M OXALATE 2-28 TABLET BY ity o f 20 mg 00:00: MOUTH [place] tablet 00 EVERY DAY Medical Branch ESCITALOPRA 2021-09 Yes [id number] TAKE 1 [facility] M OXALATE 2-28 TABLET BY ity o f 20 mg 00:00: MOUTH [place] tablet 00 EVERY DAY Medical Branch ESCITALOPRA 2021-09 Yes [id number] TAKE 1 [facility] M OXALATE 2-28 TABLET BY ity o f 20 mg 00:00: MOUTH [place] tablet 00 EVERY DAY Medical Branch ESCITALOPRA 2021-09 Yes [id number] TAKE 1 [facility] M OXALATE 2-28 TABLET BY ity o f 20 mg 00:00: MOUTH [place] tablet 00 EVERY DAY Medical Branch ESCITALOPRA 2021-09 Yes [id number] TAKE 1 [facility] M OXALATE 2-28 TABLET BY ity o f 20 mg 00:00: MOUTH [place] tablet 00 EVERY DAY Medical Branch ESCITALOPRA 2021-09 Yes [id number] TAKE 1 [facility] M OXALATE 2-28 TABLET BY ity o f 20 mg 00:00: MOUTH [place] tablet 00 EVERY DAY Medical Branch ESCITALOPRA 2021-09 Yes [id number] TAKE 1 [facility] M OXALATE 2-28 TABLET BY ity o f 20 mg 00:00: MOUTH [place] tablet 00 EVERY DAY Medical Branch ESCITALOPRA 2021-09 Yes [id number] TAKE 1 [facility] M OXALATE 2-28 TABLET BY ity o f 20 mg 00:00: MOUTH [place] tablet 00 EVERY DAY Medical Branch ESCITALOPRA 2021-09 Yes [id number] TAKE 1 [facility] M OXALATE 2-28 TABLET BY ity o f 20 mg 00:00: MOUTH [place] tablet 00 EVERY DAY Medical Branch ESCITALOPRA 2021-09 Yes [id number] TAKE 1 [facility] M OXALATE 2-28 TABLET BY ity o f 20 mg 00:00: MOUTH [place] tablet 00 EVERY DAY Medical Branch ESCITALOPRA 2021-09 Yes [id number] TAKE 1 [facility] M OXALATE 2-28 TABLET BY ity o f 20 mg 00:00: MOUTH [place] tablet 00 EVERY DAY Medical Branch ESCITALOPRA 2021-09 Yes [id number] TAKE 1 [facility] M OXALATE 2-28 TABLET BY ity o f 20 mg 00:00: MOUTH [place] tablet 00 EVERY DAY Medical Branch ESCITALOPRA 2021-09 Yes [id number] TAKE 1 [facility] M OXALATE 2-28 TABLET BY ity o f 20 mg 00:00: MOUTH [place] tablet 00 EVERY DAY Medical Branch ESCITALOPRA 2021-09 Yes [id number] TAKE 1 [facility] M OXALATE 2-28 TABLET BY ity o f 20 mg 00:00: MOUTH [place] tablet 00 EVERY DAY Medical Branch ESCITALOPRA 2021-09 Yes [id number] TAKE 1 [facility] M OXALATE 2-28 TABLET BY ity o f 20 mg 00:00: MOUTH [place] tablet 00 EVERY DAY Medical Branch ESCITALOPRA 2021-09 Yes [id number] TAKE 1 [facility] M OXALATE 2-28 TABLET BY ity o f 20 mg 00:00: MOUTH [place] tablet 00 EVERY DAY Medical Branch ESCITALOPRA 2021-09 Yes [id number] TAKE 1 [facility] M OXALATE 2-28 TABLET BY ity o f 20 mg 00:00: MOUTH [place] tablet 00 EVERY DAY Medical Branch ESCITALOPRA 2021-09 Yes [id number] TAKE 1 [facility] M OXALATE 2-28 TABLET BY ity o f 20 mg 00:00: MOUTH [place] tablet 00 EVERY DAY Medical Branch ESCITALOPRA 2021-09 Yes [id number] TAKE 1 [facility] M OXALATE 2-28 TABLET BY ity o f 20 mg 00:00: MOUTH [place] tablet 00 EVERY DAY Medical Branch ESCITALOPRA 2021-09 Yes [id number] TAKE 1 [facility] M OXALATE 2-28 TABLET BY ity o f 20 mg 00:00: MOUTH [place] tablet 00 EVERY DAY Medical Branch ESCITALOPRA 2021-09 Yes [id number] TAKE 1 [facility] M OXALATE 2-28 TABLET BY ity o f 20 mg 00:00: MOUTH [place] tablet 00 EVERY DAY Medical Branch ESCITALOPRA 2021-09 Yes [id number] TAKE 1 [facility] M OXALATE 2-28 TABLET BY ity o f 20 mg 00:00: MOUTH [place] tablet 00 EVERY DAY Medical Branch ESCITALOPRA 2021-09 Yes [id number] TAKE 1 [facility] M OXALATE 2-28 TABLET BY ity o f 20 mg 00:00: MOUTH [place] tablet 00 EVERY DAY Medical Branch ESCITALOPRA 2021-09 Yes [id number] TAKE 1 [facility] M OXALATE 2-28 TABLET BY ity o f 20 mg 00:00: MOUTH [place] tablet 00 EVERY DAY Medical Branch ESCITALOPRA 2021-09 Yes [id number] TAKE 1 [facility] M OXALATE 2-28 TABLET BY ity o f 20 mg 00:00: MOUTH [place] tablet 00 EVERY DAY Medical Branch ESCITALOPRA 2021-09 Yes [id number] TAKE 1 [facility] M OXALATE 2-28 TABLET BY ity o f 20 mg 00:00: MOUTH [place] tablet 00 EVERY DAY Medical Branch ESCITALOPRA 2021-09 Yes [id number] TAKE 1 [facility] M OXALATE 2-28 TABLET BY ity o f 20 mg 00:00: MOUTH [place] tablet 00 EVERY DAY Medical Branch ESCITALOPRA 2021-09 Yes [id number] TAKE 1 [facility] M OXALATE 2-28 TABLET BY ity o f 20 mg 00:00: MOUTH [place] tablet 00 EVERY DAY Medical Branch ESCITALOPRA 2021-09 Yes [id number] TAKE 1 [facility] M OXALATE 2-28 TABLET BY ity o f 20 mg 00:00: MOUTH [place] tablet 00 EVERY DAY Medical Branch ESCITALOPRA 2021-09 Yes [id number] TAKE 1 [facility] M OXALATE 2-28 TABLET BY ity o f 20 mg 00:00: MOUTH [place] tablet 00 EVERY DAY Medical Branch ESCITALOPRA 2021-09 Yes [id number] TAKE 1 [facility] M OXALATE 2-28 TABLET BY ity o f 20 mg 00:00: MOUTH [place] tablet 00 EVERY DAY [facility] Yes [id number] TAKE 1 [facility] M OXALATE 2-28 TABLET BY ity o f 20 mg 00:00: MOUTH [place] tablet [facility] [id number] TAKE 1 [facility] M OXALATE 2-28 TABLET BY ity o f 20 mg 00:00: MOUTH [place] tablet 00 EVERY DAY [facility] ESCITALOPRA 2021-09 Yes [id number] TAKE 1 [facility] M OXALATE 2-28 TABLET BY ity o f 20 mg 00:00: MOUTH [place] tablet 00 [facility] Yes [id number] TAKE 1 [facility] M OXALATE 2-28 TABLET BY ity o f 20 mg 00:00: MOUTH [place] tablet 00 [facility] Yes [id number] TAKE 1 [facility] M OXALATE 2-28 TABLET BY ity o f 20 mg 00:00: MOUTH [place] tablet 00 EVERY DAY [facility] ESCITALOPRA 2021-09 Yes [id number] TAKE 1 [facility] M OXALATE 2-28 TABLET BY ity o f 20 mg 00:00: MOUTH [place] tablet 00 [facility] Yes [id number] TAKE 1 [facility] M OXALATE 2-28 TABLET BY ity o f 20 mg 00:00: MOUTH [place] tablet 00 EVERY DAY [facility] ketorolac 2021-09- No [id number] 60mg Uni vers (TORADOL) 2-24 08-14 ity of injection 19:00: 18:23 [place] 60 mg 00 :00 [facility] ketorolac 2021-09- No [id number] 60mg 60 mg, U nivers (TORADOL) -24 08-14 Intramuscu ity of injection 19:00: 18:23 [place], [place]CE, [place] 60 mg 00 :00 1 dose, On [facility] 08/24/22 at 1300, Routine ketorolac 2021-09- No [id number] 60mg Uni vers (TORADOL) 2-14 12-14 ity of injection 19:00: 18:23 [place] 60 mg 00 :00 Medical Branch ketorolac 2021-09 [id number] 60mg 60 mg, U nivers (TORADOL) 2-14 12-14 Intramuscu ity of injection 19:00: 18:23 [place], ONCE, [place] 60 mg 00 :00 1 dose, On [facility] Branch 08/24/22 at 1300, Routine MELOXICAM 2021-09 Yes [id number] TAKE 1 U nivers 7.5 mg 2-05 TABLET BY ity of tablet 00:00: MOUTH [place] 00 EVERY DAY [facility] MELOXICAM 2021-09 Yes [id number] TAKE 1 U nivers 7.5 mg 2-05 TABLET BY ity of tablet 00:00: MOUTH [place] 00 EVERY DAY [facility] MELOXICAM 2021-09 Yes [id number] TAKE 1 U nivers 7.5 mg 2-05 TABLET BY ity of tablet 00:00: MOUTH [place] 00 DAY [facility] MELOXICAM 2021-09 Yes [id number] TAKE 1 U nivers 7.5 mg 2-05 TABLET BY ity of tablet 00:00: MOUTH [place] 00 DAY [facility] MELOXICAM 2021-09 Yes [id number] TAKE 1 U nivers 7.5 mg 2-05 TABLET BY ity of tablet 00:00: MOUTH [place] 00 EVERY DAY [facility] MELOXICAM 2021-09 Yes [id number] TAKE 1 U nivers 7.5 mg 2-05 TABLET BY ity of tablet 00:00: MOUTH [place] 00 DAY [facility] MELOXICAM 2021-09 Yes [id number] TAKE 1 U nivers 7.5 mg 2-05 TABLET BY ity of tablet 00:00: MOUTH [place] 00 EVERY DAY [facility] MELOXICAM 2021-09 Yes [id number] TAKE 1 U nivers 7.5 mg 2-05 TABLET BY ity of tablet 00:00: MOUTH [place] 00 EVERY DAY [facility] MELOXICAM 2021-09 Yes [id number] TAKE 1 U nivers 7.5 mg 2-05 TABLET BY ity of tablet 00:00: MOUTH [place] 00 EVERY DAY [facility] MELOXICAM 2021-09 Yes [id number] TAKE 1 U nivers 7.5 mg 2-05 TABLET BY ity of tablet 00:00: MOUTH [place] 00 EVERY DAY [facility] MELOXICAM 2021-09 Yes [id number] TAKE 1 U nivers 7.5 mg 2-05 TABLET BY ity of tablet 00:00: MOUTH [place] 00 EVERY DAY Medical Branch MELOXICAM 2021-09 Yes [id number] TAKE 1 U nivers 7.5 mg 2-05 TABLET BY ity of tablet 00:00: MOUTH [place] 00 EVERY DAY Medical Branch MELOXICAM 2021-09 Yes [id number] TAKE 1 U nivers 7.5 mg 2-05 TABLET BY ity of tablet 00:00: MOUTH [place] 00 EVERY DAY Medical Branch MELOXICAM 2021-09 Yes [id number] TAKE 1 U nivers 7.5 mg 2-05 TABLET BY ity of tablet 00:00: MOUTH [place] 00 EVERY DAY Medical Branch MELOXICAM 2021-09 Yes [id number] TAKE 1 U nivers 7.5 mg 2-05 TABLET BY ity of tablet 00:00: MOUTH [place] 00 EVERY DAY Medical Branch MELOXICAM 2021-09 Yes [id number] TAKE 1 U nivers 7.5 mg 2-05 TABLET BY ity of tablet 00:00: MOUTH [place] 00 DAY Medical Branch MELOXICAM 2021-09- No [id number] TAKE 1 [facility] 7.5 mg 2-05 01-26 TABLET BY ity of tablet 00:00: 00:00 MOUTH [place] 00 :00 EVERY DAY Medical Branch triamcinolo 2021-09- No [id number] 40mg [facility] ne 006-20 ity of acetonide 20:00: 18:55 [place] (KENALOG) 00 :00 Medical injection Branch 40 mg triamcinolo 2021-09- No [id number] 40mg 40 mg, [facility] ne 006-20 55585 Intramuscu ity of acetonide 20:00: 18:55 lar, ONCE, [place] (KENALOG) 00 :00 1 dose, On Medi zan injection Mon Branch 40 mg 06/20/22 at 1500, Routine triamcinolo 2021-09- No [id number] 40mg Univers ne 0- [id number] ity of acetonide 20:00: 18:55 [place] (KENALOG) 00 :00 Medical injection Branch 40 mg triamcinolo 2021-09- No [id number] 40mg 40 mg, Univers ne 0- 92342 Intramuscu ity of acetonide 20:00: 18:55 lar, ONCE, [place] (KENALOG) 00 :00 1 dose, On Medi zan injection Mon Branch 40 mg 06/20/22 at 1500, Routine methylPREDN 2021-09- No [id number] 80mg [facility] ISolone 0-06-20 ity of acetate 19:45: 18:55 [place] (DEPO-MEDRO 00 :00 Medical L) Branch injection 80 mg methylPREDN 2021-09- No [id number] 80mg 80 mg, [facility] ISolone 006-20 Intramuscu ity of acetate 19:45: 18:55 [place], ONCE, [place] (DEPO-MEDRO 00 :00 1 dose, On Me dical L) Mon Branch injection 06/20/22 80 mg at 1445, Routine methylPREDN 2021-09- No [id number] 80mg [facility] ISolone 006-20 ity of acetate 19:45: 18:55 [place] (DEPO-MEDRO 00 :00 Medical L) Branch injection 80 mg methylPREDN 2021-09- No [id number] 80mg 80 mg, [facility] ISolone 006-20 Intramuscu ity of acetate 19:45: 18:55 [place], ONCE, [place] (DEPO-MEDRO 00 :00 1 dose, On Me dical L) Mon Branch injection 06/20/22 80 mg at 1445, Routine MELOXICAM 0 Yes [id number] TAKE 1 U nivers 7.5 mg 9-21 TABLET BY ity of tablet 00:00: MOUTH [place] 00 EVERY DAY Medical Branch MELOXICAM 0 Yes [id number] TAKE 1 U nivers 7.5 mg 9-21 TABLET BY ity of tablet 00:00: MOUTH [place] 00 EVERY DAY Medical Branch MELOXICAM 0 Yes [id number] TAKE 1 U nivers 7.5 mg 9-21 TABLET BY ity of tablet 00:00: MOUTH [place] 00 EVERY DAY Medical Branch MELOXICAM 0 Yes [id number] TAKE 1 U nivers 7.5 mg 9-21 TABLET BY ity of tablet 00:00: MOUTH [place] 00 EVERY DAY Medical Branch MELOXICAM 0 Yes [id number] TAKE 1 U nivers 7.5 mg 9-21 TABLET BY ity of tablet 00:00: MOUTH [place] 00 EVERY DAY Medical Branch MELOXICAM 2021-0 Yes [id number] TAKE 1 U nivers 7.5 mg 9-21 TABLET BY ity of tablet 00:00: MOUTH [place] 00 EVERY DAY Medical Branch MELOXICAM 2021-0 Yes [id number] TAKE 1 U nivers 7.5 mg 9-21 TABLET BY ity of tablet 00:00: MOUTH [place] 00 EVERY DAY Medical Branch MELOXICAM 2021-0 Yes [id number] TAKE 1 U nivers 7.5 mg 9-21 TABLET BY ity of tablet 00:00: MOUTH [place] 00 EVERY DAY Medical Branch MELOXICAM 2021-0 2022- No [id number] TAKE 1 [facility] 7.5 mg 9-21 12-05 TABLET BY ity of tablet 00:00: 00:00 MOUTH [place] 00 :00 EVERY DAY Medical Branch nystatin 2021-0 Yes [id number] Apply to U nivers 100,000 8-29 area(s) 2 ity of unit/gram 00:00: (two) [place] powder 00 times Medical daily. Branch nystatin 2021-0 Yes [id number] Apply to U nivers 100,000 8-29 area(s) 2 ity of unit/gram 00:00: (two) [place] powder 00 times Medical daily. Branch nystatin 2021-0 Yes [id number] Apply to U nivers 100,000 8-29 area(s) 2 ity of unit/gram 00:00: (two) [place] powder 00 times Medical daily. Branch nystatin 2-0 Yes [id number] Apply to U nivers 100,000 8-29 area(s) 2 ity of unit/gram 00:00: (two) [place] powder 00 times Medical daily. Branch nystatin 2-0 Yes [id number] Apply to U nivers 100,000 8-29 area(s) 2 ity of unit/gram 00:00: (two) [place] powder 00 times Medical daily. Branch nystatin 2022-0 Yes [id number] Apply to U nivers 100,000 8-29 area(s) 2 ity of unit/gram 00:00: (two) [place] powder 00 times Medical daily. Branch nystatin 2-0 Yes [id number] Apply to U nivers 100,000 8-29 area(s) 2 ity of unit/gram 00:00: (two) [place] powder 00 times Medical daily. Branch nystatin 2022-0 Yes [id number] Apply to U nivers 100,000 8-29 area(s) 2 ity of unit/gram 00:00: (two) [place] powder 00 times Medical daily. Branch nystatin 2022-0 Yes [id number] Apply to U nivers 100,000 8-29 area(s) 2 ity of unit/gram 00:00: (two) [place] powder 00 times Medical daily. Branch nystatin 2022-0 Yes [id number] Apply to U nivers 100,000 8-29 area(s) 2 ity of unit/gram 00:00: (two) [place] powder 00 times Medical daily. Branch nystatin 2022-0 Yes [id number] Apply to U nivers 100,000 8-29 area(s) 2 ity of unit/gram 00:00: (two) [place] powder 00 times Medical daily. Branch nystatin 2022-0 Yes [id number] Apply to U nivers 100,000 8-29 area(s) 2 ity of unit/gram 00:00: (two) [place] powder 00 times Medical daily. Branch nystatin 2022-0 Yes [id number] Apply to U nivers 100,000 8-29 area(s) 2 ity of unit/gram 00:00: (two) [place] powder 00 times Medical daily. Branch nystatin 2022-0 Yes [id number] Apply to U nivers 100,000 8-29 area(s) 2 ity of unit/gram 00:00: (two) [place] powder 00 times Medical daily. Branch nystatin 2022-0 Yes [id number] Apply to U nivers 100,000 8-29 area(s) 2 ity of unit/gram 00:00: (two) [place] powder 00 times Medical daily. Branch nystatin 2022-0 Yes [id number] Apply to U nivers 100,000 8-29 area(s) 2 ity of unit/gram 00:00: (two) [place] powder 00 times Medical daily. Branch nystatin 2022-0 Yes [id number] Apply to U nivers 100,000 8-29 area(s) 2 ity of unit/gram 00:00: (two) [place] powder 00 times Medical daily. Branch nystatin 2022-0 Yes [id number] Apply to U nivers 100,000 8-29 area(s) 2 ity of unit/gram 00:00: (two) [place] powder 00 times Medical daily. Branch nystatin 2022-0 Yes [id number] Apply to U nivers 100,000 8-29 area(s) 2 ity of unit/gram 00:00: (two) [place] powder 00 times Medical daily. Branch nystatin 2022-0 Yes [id number] Apply to U nivers 100,000 8-29 area(s) 2 ity of unit/gram 00:00: (two) [place] powder 00 times Medical daily. Branch nystatin 2022-0 Yes [id number] Apply to U nivers 100,000 8-29 area(s) 2 ity of unit/gram 00:00: (two) [place] powder 00 times Medical daily. Branch nystatin 2022-0 Yes [id number] Apply to U nivers 100,000 8-29 area(s) 2 ity of unit/gram 00:00: (two) [place] powder 00 times Medical daily. Branch nystatin 2022-0 Yes [id number] Apply to U nivers 100,000 8-29 area(s) 2 ity of unit/gram 00:00: (two) [place] powder 00 times Medical daily. Branch nystatin 2022-0 Yes [id number] Apply to U nivers 100,000 8-29 area(s) 2 ity of unit/gram 00:00: (two) [place] powder 00 times Medical daily. Branch nystatin 2022-0 Yes [id number] Apply to U nivers 100,000 8-29 area(s) 2 ity of unit/gram 00:00: (two) [place] powder 00 times Medical daily. Branch nystatin 2022-0 Yes [id number] Apply to U nivers 100,000 8-29 area(s) 2 ity of unit/gram 00:00: (two) [place] powder 00 times Medical daily. Branch nystatin 2022-0 Yes [id number] Apply to U nivers 100,000 8-29 area(s) 2 ity of unit/gram 00:00: (two) [place] powder 00 times Medical daily. Branch nystatin 2022-0 Yes [id number] Apply to U nivers 100,000 8-29 area(s) 2 ity of unit/gram 00:00: (two) [place] powder 00 times Medical daily. Branch nystatin 2022-0 Yes [id number] Apply to U nivers 100,000 8-29 area(s) 2 ity of unit/gram 00:00: (two) [place] powder 00 times Medical daily. Branch nystatin 2022-0 Yes [id number] Apply to U nivers 100,000 8-29 area(s) 2 ity of unit/gram 00:00: (two) [place] powder 00 times Medical daily. Branch nystatin 2022-0 Yes [id number] Apply to U nivers 100,000 8-29 area(s) 2 ity of unit/gram 00:00: (two) [place] powder 00 times Medical daily. Branch nystatin 2022-0 Yes [id number] Apply to U nivers 100,000 8-29 area(s) 2 ity of unit/gram 00:00: (two) [place] powder 00 times Medical daily. Branch nystatin 2022-0 Yes [id number] Apply to U nivers 100,000 8-29 area(s) 2 ity of unit/gram 00:00: (two) [place] powder 00 times Medical daily. Branch nystatin 2022-0 Yes [id number] Apply to U nivers 100,000 8-29 area(s) 2 ity of unit/gram 00:00: (two) [place] powder 00 times Medical daily. Branch nystatin 2022-0 Yes [id number] Apply to U nivers 100,000 8-29 area(s) 2 ity of unit/gram 00:00: (two) [place] powder 00 times Medical daily. Branch nystatin 2022-0 Yes [id number] Apply to U nivers 100,000 8-29 area(s) 2 ity of unit/gram 00:00: (two) [place] powder 00 times Medical daily. Branch nystatin 2022-0 Yes [id number] Apply to U nivers 100,000 8-29 area(s) 2 ity of unit/gram 00:00: (two) [place] powder 00 times Medical daily. Branch nystatin 2022-0 Yes [id number] Apply to U nivers 100,000 8-29 area(s) 2 ity of unit/gram 00:00: (two) [place] powder 00 times Medical daily. Branch nystatin 2022-0 Yes [id number] Apply to U nivers 100,000 8-29 area(s) 2 ity of unit/gram 00:00: (two) [place] powder 00 times Medical daily. Branch nystatin 2022-0 Yes [id number] Apply to U nivers 100,000 8-29 area(s) 2 ity of unit/gram 00:00: (two) [place] powder 00 times Medical daily. Branch nystatin 2022-0 Yes [id number] Apply to U nivers 100,000 8-29 area(s) 2 ity of unit/gram 00:00: (two) [place] powder 00 times Medical daily. Branch nystatin 2022-0 Yes [id number] Apply to U nivers 100,000 8-29 area(s) 2 ity of unit/gram 00:00: (two) [place] powder 00 times Medical daily. Branch nystatin 2022-0 Yes [id number] Apply to U nivers 100,000 8-29 area(s) 2 ity of unit/gram 00:00: (two) [place] powder 00 times Medical daily. Branch nystatin 2022-0 Yes [id number] Apply to U nivers 100,000 8-29 area(s) 2 ity of unit/gram 00:00: (two) [place] powder 00 times Medical daily. Branch nystatin 2022-0 Yes [id number] Apply to U nivers 100,000 8-29 area(s) 2 ity of unit/gram 00:00: (two) [place] powder 00 times Medical daily. Branch nystatin 2022-0 Yes [id number] Apply to U nivers 100,000 8-29 area(s) 2 ity of unit/gram 00:00: (two) [place] powder 00 times Medical daily. Branch nystatin 2022-0 Yes [id number] Apply to U nivers 100,000 8-29 area(s) 2 ity of unit/gram 00:00: (two) [place] powder 00 times Medical daily. Branch nystatin 2022-0 Yes [id number] Apply to U nivers 100,000 8-29 area(s) 2 ity of unit/gram 00:00: (two) [place] powder 00 times Medical daily. Branch nystatin 2022-0 Yes [id number] Apply to U nivers 100,000 8-29 area(s) 2 ity of unit/gram 00:00: (two) [place] powder 00 times Medical daily. Branch nystatin 2022-0 Yes [id number] Apply to U nivers 100,000 8-29 area(s) 2 ity of unit/gram 00:00: (two) [place] powder 00 times Medical daily. Branch nystatin 2022-0 Yes [id number] Apply to U nivers 100,000 8-29 area(s) 2 ity of unit/gram 00:00: (two) [place] powder 00 times Medical daily. Branch nystatin 2022-0 Yes [id number] Apply to U nivers 100,000 8-29 area(s) 2 ity of unit/gram 00:00: (two) [place] powder 00 times Medical daily. Branch nystatin 2022-0 Yes [id number] Apply to U nivers 100,000 8-29 area(s) 2 ity of unit/gram 00:00: (two) [place] powder 00 times Medical daily. Branch nystatin 2022-0 Yes [id number] Apply to U nivers 100,000 8-29 area(s) 2 ity of unit/gram 00:00: (two) [place] powder 00 times Medical daily. Branch nystatin 2022-0 Yes [id number] Apply to U nivers 100,000 8-29 area(s) 2 ity of unit/gram 00:00: (two) [place] powder 00 times Medical daily. Branch nystatin 2022-0 Yes [id number] Apply to U nivers 100,000 8-29 area(s) 2 ity of unit/gram 00:00: (two) [place] powder 00 times Medical daily. Branch nystatin 2022-0 Yes [id number] Apply to [facility] nivers 100,000 8-29 area(s) 2 ity of unit/gram 00:00: (two) [place] powder 00 times Medical daily. Branch nystatin 2022-0 Yes [id number] Apply to [facility] nivers 100,000 8-29 area(s) 2 ity of unit/gram 00:00: (two) [place] powder 00 times Medical daily. Branch nystatin 2022-0 Yes [id number] Apply to [facility] nivers 100,000 8-29 area(s) 2 ity of unit/gram 00:00: (two) [place] powder 00 times Medical daily. Branch nystatin 2022-0 Yes [id number] Apply to [facility] n[facility] 100,000 8-29 area(s) 2 ity of unit/gram 00:00: (two) [place] powder 00 times Medical daily. Branch nystatin 2022-0 Yes [id number] Apply to [facility] 100,000 8-29 area(s) 2 ity of unit/gram 00:00: (two) [place] powder 00 times Medical daily. Branch nystatin 2022-0 Yes [id number] Apply to [facility] 100,000 8-29 area(s) 2 ity of unit/gram 00:00: (two) [place] powder 00 times Medical daily. Branch nystatin 2022-0 Yes [id number] Apply to [facility] n[facility] 100,000 8-29 area(s) 2 ity of unit/gram 00:00: (two) [place] powder 00 times Medical daily. Branch nystatin 2-0 Yes [id number] Apply to [facility] n[facility] 100,000 8-29 area(s) 2 ity of unit/gram 00:00: (two) [place] powder 00 times Medical daily. Branch LOSARTAN 50 2021-0 Yes [id number] TAKE 1 [facility] mg tablet 7-15 TABLET BY ity o f 00:00: MOUTH [place] 00 EVERY DAY Medical Branch LOSARTAN 50 2021-0 Yes [id number] TAKE 1 [facility] mg tablet 7-15 TABLET BY ity o f 00:00: MOUTH [place] 00 EVERY DAY Medical Branch LOSARTAN 50 2-0 Yes [id number] TAKE 1 [facility] mg tablet 7-15 TABLET BY ity o f 00:00: MOUTH [place] 00 EVERY DAY Medical Branch LOSARTAN 50 2-0 Yes [id number] TAKE 1 [facility] mg tablet 7-15 TABLET BY ity o f 00:00: MOUTH [place] 00 EVERY DAY Medical Branch LOSARTAN 50 2-0 Yes [id number] TAKE 1 [facility] mg tablet 7-15 TABLET BY ity o f 00:00: MOUTH [place] 00 EVERY DAY Medical Branch LOSARTAN 50 2-0 Yes [id number] TAKE 1 [facility] mg tablet 7-15 TABLET BY ity o f 00:00: MOUTH [place] 00 EVERY DAY Medical Branch LOSARTAN 50 2-0 Yes [id number] TAKE 1 [facility] mg tablet 7-15 TABLET BY ity o f 00:00: MOUTH [place] 00 EVERY DAY Medical Branch LOSARTAN 50 2022-0 Yes [id number] TAKE 1 [facility] mg tablet 7-15 TABLET BY ity o f 00:00: MOUTH [place] 00 EVERY DAY Medical Branch LOSARTAN 50 2-0 Yes [id number] TAKE 1 [facility] mg tablet 7-15 TABLET BY ity o f 00:00: MOUTH [place] 00 EVERY DAY Medical Branch LOSARTAN 50 2-0 Yes [id number] TAKE 1 [facility] mg tablet 7-15 TABLET BY ity o f 00:00: MOUTH [place] 00 EVERY DAY Medical Branch LOSARTAN 50 2-0 Yes [id number] TAKE 1 [facility] mg tablet 7-15 TABLET BY ity o f 00:00: MOUTH [place] 00 EVERY DAY Medical Branch LOSARTAN 50 2-0 Yes [id number] TAKE 1 [facility] mg tablet 7-15 TABLET BY ity o f 00:00: MOUTH [place] 00 EVERY DAY Medical Branch LOSARTAN 50 2-0 Yes [id number] TAKE 1 [facility] mg tablet 7-15 TABLET BY ity o f 00:00: MOUTH [place] 00 EVERY DAY Medical Branch LOSARTAN 50 2-0 Yes [id number] TAKE 1 [facility] mg tablet 7-15 TABLET BY ity o f 00:00: MOUTH [place] 00 EVERY DAY Medical Branch LOSARTAN 50 2-0 Yes [id number] TAKE 1 [facility] mg tablet 7-15 TABLET BY ity o f 00:00: MOUTH [place] 00 EVERY DAY Medical Branch LOSARTAN 50 2-0 Yes [id number] TAKE 1 [facility] mg tablet 7-15 TABLET BY ity o f 00:00: MOUTH [place] 00 EVERY DAY Medical Branch LOSARTAN 50 2-0 Yes [id number] TAKE 1 [facility] mg tablet 7-15 TABLET BY ity o f 00:00: MOUTH [place] 00 EVERY DAY Medical Branch LOSARTAN 50 2-0 Yes [id number] TAKE 1 [facility] mg tablet 7-15 TABLET BY ity o f 00:00: MOUTH [place] 00 EVERY DAY Medical Branch LOSARTAN 50 2-0 Yes [id number] TAKE 1 [facility] mg tablet 7-15 TABLET BY ity o f 00:00: MOUTH [place] 00 EVERY DAY Medical Branch LOSARTAN 50 2022-0 Yes [id number] TAKE 1 [facility] mg tablet 7-15 TABLET BY ity o f 00:00: MOUTH [place] 00 EVERY DAY Medical Branch LOSARTAN 50 2022-0 Yes [id number] TAKE 1 [facility] mg tablet 7-15 TABLET BY ity o f 00:00: MOUTH [place] 00 EVERY DAY Medical Branch LOSARTAN 50 2-0 Yes [id number] TAKE 1 [facility] mg tablet 7-15 TABLET BY ity o f 00:00: MOUTH [place] 00 EVERY DAY Medical Branch LOSARTAN 50 2-0 Yes [id number] TAKE 1 [facility] mg tablet 7-15 TABLET BY ity o f 00:00: MOUTH [place] 00 EVERY DAY Medical Branch LOSARTAN 50 2022-0 Yes [id number] TAKE 1 [facility] mg tablet 7-15 TABLET BY ity o f 00:00: MOUTH [place] 00 EVERY DAY Medical Branch LOSARTAN 50 2-0 Yes [id number] TAKE 1 [facility] mg tablet 7-15 TABLET BY ity o f 00:00: MOUTH [place] 00 EVERY DAY Medical Branch LOSARTAN 50 2-0 Yes [id number] TAKE 1 [facility] mg tablet 7-15 TABLET BY ity o f 00:00: MOUTH [place] 00 EVERY DAY Medical Branch LOSARTAN 50 2-0 Yes [id number] TAKE 1 [facility] mg tablet 7-15 TABLET BY ity o f 00:00: MOUTH [place] 00 EVERY DAY Medical Branch LOSARTAN 50 2022-0 Yes [id number] TAKE 1 [facility] mg tablet 7-15 TABLET BY ity o f 00:00: MOUTH [place] 00 EVERY DAY Medical Branch LOSARTAN 50 2-0 Yes [id number] TAKE 1 [facility] mg tablet 7-15 TABLET BY ity o f 00:00: MOUTH [place] 00 EVERY DAY Medical Branch LOSARTAN 50 2-0 Yes [id number] TAKE 1 [facility] mg tablet 7-15 TABLET BY ity o f 00:00: MOUTH [place] 00 EVERY DAY Medical Branch LOSARTAN 50 2022-0 Yes [id number] TAKE 1 [facility] mg tablet 7-15 TABLET BY ity o f 00:00: MOUTH [place] 00 EVERY DAY Medical Branch LOSARTAN 50 2022-0 Yes [id number] TAKE 1 [facility] mg tablet 7-15 TABLET BY ity o f 00:00: MOUTH [place] 00 EVERY DAY Medical Branch LOSARTAN 50 2022-0 Yes [id number] TAKE 1 [facility] mg tablet 7-15 TABLET BY ity o f 00:00: MOUTH [place] 00 EVERY DAY Medical Branch LOSARTAN 50 2022-0 Yes [id number] TAKE 1 [facility] mg tablet 7-15 TABLET BY ity o f 00:00: MOUTH [place] 00 EVERY DAY Medical Branch LOSARTAN 50 2022-0 Yes [id number] TAKE 1 [facility] mg tablet 7-15 TABLET BY ity o f 00:00: MOUTH [place] 00 EVERY DAY Medical Branch LOSARTAN 50 2022-0 Yes [id number] TAKE 1 [facility] mg tablet 7-15 TABLET BY ity o f 00:00: MOUTH [place] 00 EVERY DAY Medical Branch LOSARTAN 50 2-0 Yes [id number] TAKE 1 [facility] mg tablet 7-15 TABLET BY ity o f 00:00: MOUTH [place] 00 EVERY DAY Medical Branch LOSARTAN 50 2-0 Yes [id number] TAKE 1 [facility] mg tablet 7-15 TABLET BY ity o f 00:00: MOUTH [place] 00 EVERY DAY Medical Branch LOSARTAN 50 2-0 Yes [id number] TAKE 1 [facility] mg tablet 7-15 TABLET BY ity o f 00:00: MOUTH [place] 00 EVERY DAY Medical Branch LOSARTAN 50 2-0 Yes [id number] TAKE 1 [facility] mg tablet 7-15 TABLET BY ity o f 00:00: MOUTH [place] 00 EVERY DAY Medical Branch LOSARTAN 50 2-0 Yes [id number] TAKE 1 [facility] mg tablet 7-15 TABLET BY ity o f 00:00: MOUTH [place] 00 EVERY DAY Medical Branch LOSARTAN 50 2-0 Yes [id number] TAKE 1 [facility] mg tablet 7-15 TABLET BY ity o f 00:00: MOUTH [place] 00 EVERY DAY Medical Branch LOSARTAN 50 2-0 Yes [id number] TAKE 1 [facility] mg tablet 7-15 TABLET BY ity o f 00:00: MOUTH [place] 00 EVERY DAY Medical Branch LOSARTAN 50 2-0 Yes [id number] TAKE 1 [facility] mg tablet 7-15 TABLET BY ity o f 00:00: MOUTH [place] 00 EVERY DAY Medical Branch LOSARTAN 50 2-0 Yes [id number] TAKE 1 [facility] mg tablet 7-15 TABLET BY ity o f 00:00: MOUTH [place] 00 EVERY DAY Medical Branch LOSARTAN 50 2022-0 Yes [id number] TAKE 1 [facility] mg tablet 7-15 TABLET BY ity o f 00:00: MOUTH [place] 00 EVERY DAY Medical Branch LOSARTAN 50 2-0 Yes [id number] TAKE 1 [facility] mg tablet 7-15 TABLET BY ity o f 00:00: MOUTH [place] 00 EVERY DAY Medical Branch LOSARTAN 50 2022-0 Yes [id number] TAKE 1 [facility] mg tablet 7-15 TABLET BY ity o f 00:00: MOUTH [place] 00 EVERY DAY Medical Branch LOSARTAN 50 2-0 Yes [id number] TAKE 1 [facility] mg tablet 7-15 TABLET BY ity o f 00:00: MOUTH [place] 00 EVERY DAY Medical Branch LOSARTAN 50 2022-0 Yes [id number] TAKE 1 [facility] mg tablet 7-15 TABLET BY ity o f 00:00: MOUTH [place] 00 EVERY DAY Medical Branch LOSARTAN 50 2-0 Yes [id number] TAKE 1 [facility] mg tablet 7-15 TABLET BY ity o f 00:00: MOUTH [place] 00 EVERY DAY Medical Branch LOSARTAN 50 2-0 Yes [id number] TAKE 1 [facility] mg tablet 7-15 TABLET BY ity o f 00:00: MOUTH [place] 00 EVERY DAY Medical Branch LOSARTAN 50 2-0 Yes [id number] TAKE 1 [facility] mg tablet 7-15 TABLET BY ity o f 00:00: MOUTH [place] 00 EVERY DAY Medical Branch LOSARTAN 50 2-0 Yes [id number] TAKE 1 [facility] mg tablet 7-15 TABLET BY ity o f 00:00: MOUTH [place] 00 EVERY DAY Medical Branch LOSARTAN 50 2-0 Yes [id number] TAKE 1 [facility] mg tablet 7-15 TABLET BY ity o f 00:00: MOUTH [place] 00 EVERY DAY Medical Branch LOSARTAN 50 2-0 Yes [id number] TAKE 1 [facility] mg tablet 7-15 TABLET BY ity o f 00:00: MOUTH [place] 00 EVERY DAY Medical Branch LOSARTAN 50 2-0 Yes [id number] TAKE 1 [facility] mg tablet 7-15 TABLET BY ity o f 00:00: MOUTH [place] 00 EVERY DAY Medical Branch LOSARTAN 50 2-0 Yes [id number] TAKE 1 [facility] mg tablet 7-15 TABLET BY ity o f 00:00: MOUTH [place] 00 EVERY DAY Medical Branch LOSARTAN 50 2-0 Yes [id number] TAKE 1 [facility] mg tablet 7-15 TABLET BY ity o f 00:00: MOUTH [place] 00 EVERY DAY Medical Branch LOSARTAN 50 2-0 Yes [id number] TAKE 1 [facility] mg tablet 7-15 TABLET BY ity o f 00:00: MOUTH [place] 00 EVERY DAY Medical Branch LOSARTAN 50 2-0 Yes [id number] TAKE 1 [facility] mg tablet 7-15 TABLET BY ity o f 00:00: MOUTH [place] 00 EVERY DAY Medical Branch LOSARTAN 50 2-0 Yes [id number] TAKE 1 [facility] mg tablet 7-15 TABLET BY ity o f 00:00: MOUTH [place] 00 EVERY DAY Medical Branch LOSARTAN 50 2-0 Yes [id number] TAKE 1 [facility] mg tablet 7-15 TABLET BY ity o f 00:00: MOUTH [place] 00 EVERY DAY Medical Branch LOSARTAN 50 2-0 Yes [id number] TAKE 1 [facility] mg tablet 7-15 TABLET BY ity o f 00:00: MOUTH [place] 00 EVERY DAY Medical Branch ATORVASTATI 2021-0 Yes [id number] TAKE 1 [facility] N 10 mg 6-30 TABLET BY ity of tablet 00:00: MOUTH [place] 00 EVERYDAY Medical AT BEDTIME [facility] Yes [id number] TAKE 1 [facility] N 10 mg 6-30 TABLET BY ity of tablet 00:00: MOUTH EVERYDAY Medical AT BEDTIME [facility] Yes [id number] TAKE 1 [facility] N 10 mg 6-30 TABLET BY ity of tablet 00:00: MOUTH EVERYDAY Medical AT BEDTIME [facility] Yes [id number] TAKE 1 [facility] N 10 mg 6-30 TABLET BY ity of tablet 00:00: MOUTH EVERYDAY Medical AT BEDTIME [facility] Yes [id number] TAKE 1 [facility] N 10 mg 6-30 TABLET BY ity of tablet 00:00: MOUTH EVERYDAY Medical AT BEDTIME [facility] Yes [id number] TAKE 1 [facility] N 10 mg 6-30 TABLET BY ity of tablet 00:00: MOUTH EVERYDAY Medical AT BEDTIME [facility] Yes [id number] TAKE 1 [facility] N 10 mg 6-30 TABLET BY ity of tablet 00:00: MOUTH EVERYDAY Medical AT BEDTIME [facility] Yes [id number] TAKE 1 [facility] N 10 mg 6-30 TABLET BY ity of tablet 00:00: MOUTH EVERYDAY Medical AT BEDTIME [facility] Yes [id number] TAKE 1 [facility] N 10 mg 6-30 TABLET BY ity of tablet 00:00: MOUTH EVERYDAY Medical AT BEDTIME [facility] 2021[facility] Yes [id number] TAKE 1 [facility] N 10 mg 6-30 TABLET BY ity of tablet 00:00: MOUTH EVERYDAY Medical AT BEDTIME [facility] 2021[facility] Yes [id number] TAKE 1 [facility] N 10 mg 6-30 TABLET BY ity of tablet 00:00: MOUTH [place] EVERYDAY Medical AT BEDTIME Branch ATORVASTA 2021-0 Yes [id number] TAKE 1 [facility] N 10 mg 6-30 TABLET BY ity of tablet 00:00: MOUTH EVERYDAY Medical AT BEDTIME Branch ATORVASTA 2021-0 Yes [id number] TAKE 1 [facility] N 10 mg 6-30 TABLET BY ity of tablet 00:00: MOUTH [place] 00 EVERYDAY [facility] BEDTIME [facility] Yes [id number] TAKE 1 [facility] N 10 mg 6-30 TABLET BY ity of tablet 00:00: MOUTH [place] EVERYDAY Medical AT BEDTIME [facility] Yes [id number] TAKE 1 [facility] N 10 mg 6-30 TABLET BY ity of tablet 00:00: MOUTH EVERYDAY Medical AT BEDTIME [place] [facility] 2021[facility] Yes [id number] TAKE 1 [facility] N 10 mg 6-30 TABLET BY ity of tablet 00:00: MOUTH EVERYDAY Medical AT BEDTIME [facility] 2021-0 Yes [id number] TAKE 1 [facility] N 10 mg 6-30 TABLET BY ity of tablet 00:00: MOUTH EVERYDAY Medical AT BEDTIME [facility] 2021[facility]0 Yes [id number] TAKE 1 [facility] N 10 mg 6-30 TABLET BY ity of tablet 00:00: MOUTH EVERYDAY Medical AT BEDTIME [place] [facility] 2021[facility]0 Yes [id number] TAKE 1 [facility] N 10 mg 6-30 TABLET BY ity of tablet 00:00: MOUTH EVERYDAY Medical AT BEDTIME [place] [facility] 2021-0 Yes [id number] TAKE 1 [facility] N 10 mg 6-30 TABLET BY ity of tablet 00:00: MOUTH EVERYDAY Medical AT BEDTIME [place] [facility] 2021[facility]0 Yes [id number] TAKE 1 [facility] N 10 mg 6-30 TABLET BY ity of tablet 00:00: MOUTH EVERYDAY Medical AT BEDTIME [facility] 2021-0 Yes [id number] TAKE 1 [facility] N 10 mg 6-30 TABLET BY ity of tablet 00:00: MOUTH 00 EVERYDAY Medical AT BEDTIME [place] ATORVASTA 2021-0 Yes [id number] TAKE 1 [facility] N 10 mg 6-30 TABLET BY ity of tablet 00:00: MOUTH 00 EVERYDAY Medical AT BEDTIME [place] [facility] 2021-0 Yes [id number] TAKE 1 [facility] N 10 mg 6-30 TABLET BY ity of tablet 00:00: MOUTH EVERYDAY Medical AT BEDTIME [place] [facility] 2021-0 Yes [id number] TAKE 1 [facility] N 10 mg 6-30 TABLET BY ity of tablet 00:00: MOUTH [place] 00 EVERYDAY Medical AT BEDTIME [facility] Yes [id number] TAKE 1 [facility] N 10 mg 6-30 TABLET BY ity of tablet 00:00: MOUTH [place] EVERYDAY Medical AT BEDTIME [facility] 2021[facility]0 Yes [id number] TAKE 1 [facility] N 10 mg 6-30 TABLET BY ity of tablet 00:00: MOUTH EVERYDAY Medical AT BEDTIME [place] [facility] 2021-0 Yes [id number] TAKE 1 [facility] N 10 mg 6-30 TABLET BY ity of tablet 00:00: MOUTH [place] 00 EVERYDAY Medical AT BEDTIME [place] [facility] 2021-0 Yes [id number] TAKE 1 [facility] N 10 mg 6-30 TABLET BY ity of tablet 00:00: MOUTH EVERYDAY Medical AT BEDTIME [place] [facility] 2021-0 Yes [id number] TAKE 1 [facility] N 10 mg 6-30 TABLET BY ity of tablet 00:00: MOUTH EVERYDAY Medical AT BEDTIME [place] [facility] 2021-0 Yes [id number] TAKE 1 [facility] N 10 mg 6-30 TABLET BY ity of tablet 00:00: MOUTH EVERYDAY Medical AT BEDTIME [place] [facility] 2021[facility]0 Yes [id number] TAKE 1 [facility] N 10 mg 6-30 TABLET BY ity of tablet 00:00: MOUTH EVERYDAY Medical AT BEDTIME [place] [facility] 2021-0 Yes [id number] TAKE 1 [facility] N 10 mg 6-30 TABLET BY ity of tablet 00:00: MOUTH EVERYDAY Medical AT BEDTIME [place] [facility] 2021-0 Yes [id number] TAKE 1 [facility] N 10 mg 6-30 TABLET BY ity of tablet 00:00: MOUTH EVERYDAY Medical AT BEDTIME [place] [facility] 2021-0 Yes [id number] TAKE 1 [facility] N 10 mg 6-30 TABLET BY ity of tablet 00:00: MOUTH EVERYDAY Medical AT BEDTIME [place] [facility] 2021-0 Yes [id number] TAKE 1 [facility] N 10 mg 6-30 TABLET BY ity of tablet 00:00: MOUTH EVERYDAY Medical AT BEDTIME [place] [facility] 2021-0 Yes [id number] TAKE 1 [facility] N 10 mg 6-30 TABLET BY ity of tablet 00:00: MOUTH [place] 00 EVERYDAY Medical AT BEDTIME [facility] 2021-0 Yes [id number] TAKE 1 [facility] N 10 mg 6-30 TABLET BY ity of tablet 00:00: MOUTH EVERYDAY Medical AT BEDTIME [facility] 2021-0 Yes [id number] TAKE 1 [facility] N 10 mg 6-30 TABLET BY ity of tablet 00:00: MOUTH EVERYDAY Medical AT BEDTIME [facility] 2021-0 Yes [id number] TAKE 1 [facility] N 10 mg 6-30 TABLET BY ity of tablet 00:00: MOUTH EVERYDAY Medical AT BEDTIME Branch ATORVASTA 2021-0 Yes [id number] TAKE 1 [facility] N 10 mg 6-30 TABLET BY ity of tablet 00:00: MOUTH EVERYDAY Medical AT BEDTIME Branch ATORVASTA 2021-0 Yes [id number] TAKE 1 [facility] N 10 mg 6-30 TABLET BY ity of tablet 00:00: MOUTH EVERYDAY Medical AT BEDTIME [facility] 2021[facility] Yes [id number] TAKE 1 [facility] N 10 mg 6-30 TABLET BY ity of tablet 00:00: MOUTH EVERYDAY Medical AT BEDTIME [facility] 2021-0 Yes [id number] TAKE 1 [facility] N 10 mg 6-30 TABLET BY ity of tablet 00:00: MOUTH EVERYDAY Medical AT BEDTIME [facility] 2021-0 Yes [id number] TAKE 1 [facility] N 10 mg 6-30 TABLET BY ity of tablet 00:00: MOUTH EVERYDAY Medical AT BEDTIME [facility] 2021-0 Yes [id number] TAKE 1 [facility] N 10 mg 6-30 TABLET BY ity of tablet 00:00: MOUTH EVERYDAY Medical AT BEDTIME Branch ATORVASTA 2021-0 Yes [id number] TAKE 1 [facility] N 10 mg 6-30 TABLET BY ity of tablet 00:00: MOUTH EVERYDAY Medical AT BEDTIME Branch ATORVASTA 2021-0 Yes [id number] TAKE 1 [facility] N 10 mg 6-30 TABLET BY ity of tablet 00:00: MOUTH EVERYDAY Medical AT BEDTIME Branch ATORVASTA 2021-0 Yes [id number] TAKE 1 [facility] N 10 mg 6-30 TABLET BY ity of tablet 00:00: MOUTH 00 EVERYDAY [facility]EDTIME [facility] Yes [id number] TAKE 1 [facility] N 10 mg 6-30 TABLET BY ity of tablet 00:00: MOUTH 00 EVERYDAY Medical AT BEDTIME [place] [facility] 2021-0 Yes [id number] TAKE 1 [facility] N 10 mg 6-30 TABLET BY ity of tablet 00:00: MOUTH EVERYDAY Medical AT BEDTIME [place] [facility] 2021-0 Yes [id number] TAKE 1 [facility] N 10 mg 6-30 TABLET BY ity of tablet 00:00: MOUTH EVERYDAY Medical AT BEDTIME [place] [facility] 2021[facility]0 Yes [id number] TAKE 1 [facility] N 10 mg 6-30 TABLET BY ity of tablet 00:00: MOUTH EVERYDAY Medical AT BEDTIME [place] [facility] Yes [id number] TAKE 1 [facility] N 10 mg 6-30 TABLET BY ity of tablet 00:00: MOUTH EVERYDAY Medical AT BEDTIME [place] [facility] Yes [id number] TAKE 1 [facility] N 10 mg 6-30 TABLET BY ity of tablet 00:00: MOUTH EVERYDAY Medical AT BEDTIME [place] [facility] 2021-0 Yes [id number] TAKE 1 [facility] N 10 mg 6-30 TABLET BY ity of tablet 00:00: MOUTH EVERYDAY Medical AT BEDTIME [place] [facility] 2021-0 Yes [id number] TAKE 1 [facility] N 10 mg 6-30 TABLET BY ity of tablet 00:00: MOUTH EVERYDAY Medical AT BEDTIME [place] [facility] 2021-0 Yes [id number] TAKE 1 [facility] N 10 mg 6-30 TABLET BY ity of tablet 00:00: MOUTH EVERYDAY Medical AT BEDTIME [place] [facility] 2021-0 Yes [id number] TAKE 1 [facility] N 10 mg 6-30 TABLET BY ity of tablet 00:00: MOUTH EVERYDAY Medical AT BEDTIME [place] [facility] 2021-0 Yes [id number] TAKE 1 [facility] N 10 mg 6-30 TABLET BY ity of tablet 00:00: MOUTH EVERYDAY Medical AT BEDTIME [place] [facility] 2021-0 Yes [id number] TAKE 1 [facility] N 10 mg 6-30 TABLET BY ity of tablet 00:00: MOUTH EVERYDAY Medical AT BEDTIME Branch ATORVASTATI 2022-0 Yes [id number] TAKE 1 [facility] N 10 mg 6-30 TABLET BY ity of tablet 00:00: MOUTH [place] 00 EVERYDAY Medical AT BEDTIME Branch ATORVASTATI 2021-0 Yes [id number] TAKE 1 [facility] N 10 mg 6-30 TABLET BY ity of tablet 00:00: MOUTH [place] 00 EVERYDAY Medical AT BEDTIME Branch ATORVASTATI 2021-0 Yes [id number] TAKE 1 [facility] N 10 mg 6-30 TABLET BY ity of tablet 00:00: MOUTH [place] 00 EVERYDAY Medical AT BEDTIME Branch OMEPRAZOLE 2021-0 Yes [id number] TAKE 1 [facility] 20 mg 6-27 CAPSULE BY ity of capsule 00:00: MOUTH [place] 00 EVERY DAY Medical Branch METOPROLOL 2021-0 Yes [id number] TAKE 1 U nivers SUCCINATE 6-27 TABLET BY ity o f XL 50 mg 24 00:00: MOUTH [place] hr tablet 00 EVERY DAY Medic al Branch OMEPRAZOLE 2021-0 Yes [id number] TAKE 1 [facility] 20 mg 6-27 CAPSULE BY ity of capsule 00:00: MOUTH [place] 00 EVERY DAY Medical Branch METOPROLOL 2021-0 Yes [id number] TAKE 1 [facility] nivers SUCCINATE 6-27 TABLET BY ity o f XL 50 mg 24 00:00: MOUTH [place] hr tablet 00 EVERY DAY Medic al Branch OMEPRAZOLE 2021-0 Yes [id number] TAKE 1 [facility] 20 mg 6-27 CAPSULE BY ity of capsule 00:00: MOUTH [place] 00 EVERY DAY Medical Branch METOPROLOL 2021-0 Yes [id number] TAKE 1 U nivers SUCCINATE 6-27 TABLET BY ity o f XL 50 mg 24 00:00: MOUTH [place] hr tablet 00 EVERY DAY Medic al Branch OMEPRAZOLE 2021-0 Yes [id number] TAKE 1 [facility] 20 mg 6-27 CAPSULE BY ity of capsule 00:00: MOUTH [place] 00 EVERY DAY Medical Branch METOPROLOL 2021-0 Yes [id number] TAKE 1 [facility] nivers SUCCINATE 6-27 TABLET BY ity o f XL 50 mg 24 00:00: MOUTH [place] hr tablet 00 EVERY DAY Medic al Branch OMEPRAZOLE 2021-0 Yes [id number] TAKE 1 [facility] 20 mg 6-27 CAPSULE BY ity of capsule 00:00: MOUTH [place] 00 EVERY DAY Medical Branch METOPROLOL 2021-0 Yes [id number] TAKE 1 [facility] nivers SUCCINATE 6-27 TABLET BY ity o f XL 50 mg 24 00:00: MOUTH [place] hr tablet 00 EVERY DAY Medic al Branch OMEPRAZOLE 2021-0 Yes [id number] TAKE 1 [facility] 20 mg 6-27 CAPSULE BY ity of capsule 00:00: MOUTH [place] 00 EVERY DAY Medical Branch METOPROLOL 2021-0 Yes [id number] TAKE 1 [facility] nivers SUCCINATE 6-27 TABLET BY ity o f XL 50 mg 24 00:00: MOUTH [place] hr tablet 00 EVERY DAY Medic al Branch OMEPRAZOLE 2021-0 Yes [id number] TAKE 1 [facility] 20 mg 6-27 CAPSULE BY ity of capsule 00:00: MOUTH [place] 00 EVERY DAY Medical Branch METOPROLOL 2021-0 Yes [id number] TAKE 1 [facility] nivers SUCCINATE 6-27 TABLET BY ity o f XL 50 mg 24 00:00: MOUTH [place] hr tablet 00 EVERY DAY Medic al Branch OMEPRAZOLE 2021-0 Yes [id number] TAKE 1 [facility] 20 mg 6-27 CAPSULE BY ity of capsule 00:00: MOUTH [place] 00 EVERY DAY Medical Branch METOPROLOL 2021-0 Yes [id number] TAKE 1 [facility] nivers SUCCINATE 6-27 TABLET BY ity o f XL 50 mg 24 00:00: MOUTH [place] hr tablet 00 EVERY DAY Medic al Branch OMEPRAZOLE 2021-0 Yes [id number] TAKE 1 [facility] 20 mg 6-27 CAPSULE BY ity of capsule 00:00: MOUTH [place] 00 EVERY DAY Medical Branch METOPROLOL 2021-0 Yes [id number] TAKE 1 [facility] nivers SUCCINATE 6-27 TABLET BY ity o f XL 50 mg 24 00:00: MOUTH [place] hr tablet 00 EVERY DAY Medic al Branch OMEPRAZOLE 2021-0 Yes [id number] TAKE 1 [facility] 20 mg 6-27 CAPSULE BY ity of capsule 00:00: MOUTH [place] 00 EVERY DAY Medical Branch METOPROLOL 2021-0 Yes [id number] TAKE 1 [facility] nivers SUCCINATE 6-27 TABLET BY ity o f XL 50 mg 24 00:00: MOUTH [place] hr tablet 00 EVERY DAY Medic al Branch OMEPRAZOLE 2021-0 Yes [id number] TAKE 1 [facility] 20 mg 6-27 CAPSULE BY ity of capsule 00:00: MOUTH [place] 00 EVERY DAY Medical Branch METOPROLOL 2021-0 Yes [id number] TAKE 1 [facility] nivers SUCCINATE 6-27 TABLET BY ity o f XL 50 mg 24 00:00: MOUTH [place] hr tablet 00 EVERY DAY Medic al Branch OMEPRAZOLE 2021-0 Yes [id number] TAKE 1 [facility] 20 mg 6-27 CAPSULE BY ity of capsule 00:00: MOUTH [place] 00 EVERY DAY Medical Branch METOPROLOL 2021-0 Yes [id number] TAKE 1 [facility] nivers SUCCINATE 6-27 TABLET BY ity o f XL 50 mg 24 00:00: MOUTH [place] hr tablet 00 EVERY DAY Medic al Branch OMEPRAZOLE 2021-0 Yes [id number] TAKE 1 [facility] 20 mg 6-27 CAPSULE BY ity of capsule 00:00: MOUTH [place] 00 EVERY DAY Medical Branch METOPROLOL 2021-0 Yes [id number] TAKE 1 [facility] nivers SUCCINATE 6-27 TABLET BY ity o f XL 50 mg 24 00:00: MOUTH [place] hr tablet 00 EVERY DAY Medic al Branch OMEPRAZOLE 2021-0 Yes [id number] TAKE 1 [facility] 20 mg 6-27 CAPSULE BY ity of capsule 00:00: MOUTH [place] 00 EVERY DAY Medical Branch METOPROLOL 2021-0 Yes [id number] TAKE 1 [facility] nivers SUCCINATE 6-27 TABLET BY ity o f XL 50 mg 24 00:00: MOUTH [place] hr tablet 00 EVERY DAY Medic al Branch OMEPRAZOLE 2021-0 Yes [id number] TAKE 1 [facility] 20 mg 6-27 CAPSULE BY ity of capsule 00:00: MOUTH [place] 00 EVERY DAY Medical Branch METOPROLOL 2021-0 Yes [id number] TAKE 1 [facility] nivers SUCCINATE 6-27 TABLET BY ity o f XL 50 mg 24 00:00: MOUTH [place] hr tablet 00 EVERY DAY Medic al Branch OMEPRAZOLE 2021-0 Yes [id number] TAKE 1 [facility] 20 mg 6-27 CAPSULE BY ity of capsule 00:00: MOUTH [place] 00 EVERY DAY Medical Branch METOPROLOL 2021-0 Yes [id number] TAKE 1 [facility] nivers SUCCINATE 6-27 TABLET BY ity o f XL 50 mg 24 00:00: MOUTH [place] hr tablet 00 EVERY DAY Medic al Branch OMEPRAZOLE 2021-0 Yes [id number] TAKE 1 [facility] 20 mg 6-27 CAPSULE BY ity of capsule 00:00: MOUTH [place] 00 EVERY DAY Medical Branch METOPROLOL 2021-0 Yes [id number] TAKE 1 [facility] nivers SUCCINATE 6-27 TABLET BY ity o f XL 50 mg 24 00:00: MOUTH [place] hr tablet 00 EVERY DAY Medic al Branch OMEPRAZOLE 2021-0 Yes [id number] TAKE 1 [facility] 20 mg 6-27 CAPSULE BY ity of capsule 00:00: MOUTH [place] 00 EVERY DAY Medical Branch METOPROLOL 2021-0 Yes [id number] TAKE 1 [facility] nivers SUCCINATE 6-27 TABLET BY ity o f XL 50 mg 24 00:00: MOUTH [place] hr tablet 00 EVERY DAY Medic al Branch OMEPRAZOLE 2021-0 Yes [id number] TAKE 1 [facility] 20 mg 6-27 CAPSULE BY ity of capsule 00:00: MOUTH [place] 00 EVERY DAY Medical Branch METOPROLOL 2021-0 Yes [id number] TAKE 1 U nivers SUCCINATE 6-27 TABLET BY ity o f XL 50 mg 24 00:00: MOUTH [place] hr tablet 00 EVERY DAY Medic al Branch OMEPRAZOLE 2021-0 Yes [id number] TAKE 1 [facility] 20 mg 6-27 CAPSULE BY ity of capsule 00:00: MOUTH [place] 00 EVERY DAY Medical Branch METOPROLOL 2021-0 Yes [id number] TAKE 1 [facility]ivers SUCCINATE 6-27 TABLET BY ity o f XL 50 mg 24 00:00: MOUTH [place] hr tablet 00 EVERY DAY Medic al Branch OMEPRAZOLE 2021-0 Yes [id number] TAKE 1 [facility] 20 mg 6-27 CAPSULE BY ity of capsule 00:00: MOUTH [place] 00 EVERY DAY Medical Branch METOPROLOL 2021-0 Yes [id number] TAKE 1 [facility] nivers SUCCINATE 6-27 TABLET BY ity o f XL 50 mg 24 00:00: MOUTH [place] hr tablet 00 EVERY DAY Medic al Branch OMEPRAZOLE 2021-0 Yes [id number] TAKE 1 [facility] 20 mg 6-27 CAPSULE BY ity of capsule 00:00: MOUTH [place] 00 EVERY DAY Medical Branch METOPROLOL 2021-0 Yes [id number] TAKE 1 [facility]ivers SUCCINATE 6-27 TABLET BY ity o f XL 50 mg 24 00:00: MOUTH [place] hr tablet 00 EVERY DAY Medic al Branch OMEPRAZOLE 2021-0 Yes [id number] TAKE 1 [facility] 20 mg 6-27 CAPSULE BY ity of capsule 00:00: MOUTH [place] 00 EVERY DAY Medical Branch METOPROLOL 2021-0 Yes [id number] TAKE 1 [facility]ivers SUCCINATE 6-27 TABLET BY ity o f XL 50 mg 24 00:00: MOUTH [place] hr tablet 00 EVERY DAY Medic al Branch OMEPRAZOLE 2021-0 Yes [id number] TAKE 1 [facility] 20 mg 6-27 CAPSULE BY ity of capsule 00:00: MOUTH [place] 00 EVERY DAY Medical Branch METOPROLOL 2022-0 Yes [id number] TAKE 1 [facility]ivers SUCCINATE 6-27 TABLET BY ity o f XL 50 mg 24 00:00: MOUTH [place] hr tablet 00 EVERY DAY Medic al Branch OMEPRAZOLE 2021-0 Yes [id number] TAKE 1 [facility] 20 mg 6-27 CAPSULE BY ity of capsule 00:00: MOUTH [place] 00 EVERY DAY Medical Branch METOPROLOL 0 Yes [id number] TAKE 1 [facility] SUCCINATE 6-27 TABLET BY ity o f XL 50 mg 24 00:00: MOUTH [place] hr tablet 00 EVERY DAY Medic al Branch OMEPRAZOLE 2021-0 Yes [id number] TAKE 1 [facility] 20 mg 6-27 CAPSULE BY ity of capsule 00:00: MOUTH [place] 00 EVERY DAY Medical Branch METOPROLOL Yes [id number] TAKE 1 [facility] SUCCINATE 6-27 TABLET BY ity o f XL 50 mg 24 00:00: MOUTH [place] hr tablet 00 EVERY DAY Medic al Branch OMEPRAZOLE 0 Yes [id number] TAKE 1 [facility] 20 mg 6-27 CAPSULE BY ity of capsule 00:00: MOUTH [place] 00 EVERY DAY Medical Branch METOPROLOL 0 Yes [id number] TAKE 1 [facility] SUCCINATE 6-27 TABLET BY ity o f XL 50 mg 24 00:00: MOUTH [place] hr tablet 00 EVERY DAY Medic al Branch OMEPRAZOLE 2021-0 Yes [id number] TAKE 1 [facility] 20 mg 6-27 CAPSULE BY ity of capsule 00:00: MOUTH [place] 00 EVERY DAY Medical Branch METOPROLOL 0 Yes [id number] TAKE 1 [facility] SUCCINATE 6-27 TABLET BY ity o f XL 50 mg 24 00:00: MOUTH [place] hr tablet 00 EVERY DAY Medic al Branch OMEPRAZOLE 2021-0 Yes [id number] TAKE 1 [facility] 20 mg 6-27 CAPSULE BY ity of capsule 00:00: MOUTH [place] 00 EVERY DAY Medical Branch METOPROLOL 2021-0 Yes [id number] TAKE 1 [facility] SUCCINATE 6-27 TABLET BY ity o f XL 50 mg 24 00:00: MOUTH [place] hr tablet 00 EVERY DAY Medic al Branch OMEPRAZOLE 2021-0 Yes [id number] TAKE 1 [facility] 20 mg 6-27 CAPSULE BY ity of capsule 00:00: MOUTH [place] 00 EVERY DAY Medical Branch METOPROLOL 2021-0 Yes [id number] TAKE 1 [facility] SUCCINATE 6-27 TABLET BY ity o f XL 50 mg 24 00:00: MOUTH [place] hr tablet 00 EVERY DAY Medic al Branch OMEPRAZOLE 2021-0 Yes [id number] TAKE 1 [facility] 20 mg 6-27 CAPSULE BY ity of capsule 00:00: MOUTH [place] 00 EVERY DAY Medical Branch METOPROLOL 2021-0 Yes [id number] TAKE 1 [facility] SUCCINATE 6-27 TABLET BY ity o f XL 50 mg 24 00:00: MOUTH [place] hr tablet 00 EVERY DAY Medic al Branch OMEPRAZOLE 2021-0 Yes [id number] TAKE 1 [facility] 20 mg 6-27 CAPSULE BY ity of capsule 00:00: MOUTH [place] 00 EVERY DAY Medical Branch METOPROLOL 2021-0 Yes [id number] TAKE 1 [facility] SUCCINATE 6-27 TABLET BY ity o f XL 50 mg 24 00:00: MOUTH [place] hr tablet 00 EVERY DAY Medic al Branch OMEPRAZOLE 2021-0 Yes [id number] TAKE 1 [facility] 20 mg 6-27 CAPSULE BY ity of capsule 00:00: MOUTH [place] 00 EVERY DAY Medical Branch METOPROLOL 2021-0 Yes [id number] TAKE 1 [facility]ivers SUCCINATE 6-27 TABLET BY ity o f XL 50 mg 24 00:00: MOUTH [place] hr tablet 00 EVERY DAY Medic al Branch OMEPRAZOLE 2021-0 Yes [id number] TAKE 1 [facility] 20 mg 6-27 CAPSULE BY ity of capsule 00:00: MOUTH [place] 00 EVERY DAY Medical Branch METOPROLOL 2021-0 Yes [id number] TAKE 1 [facility] SUCCINATE 6-27 TABLET BY ity o f XL 50 mg 24 00:00: MOUTH [place] hr tablet 00 EVERY DAY Medic al Branch OMEPRAZOLE 2021-0 Yes [id number] TAKE 1 [facility] 20 mg 6-27 CAPSULE BY ity of capsule 00:00: MOUTH [place] 00 EVERY DAY Medical Branch METOPROLOL 2021-0 Yes [id number] TAKE 1 [facility] SUCCINATE 6-27 TABLET BY ity o f XL 50 mg 24 00:00: MOUTH [place] hr tablet 00 EVERY DAY Medic al Branch OMEPRAZOLE 2021-0 Yes [id number] TAKE 1 [facility] 20 mg 6-27 CAPSULE BY ity of capsule 00:00: MOUTH [place] 00 EVERY DAY Medical Branch METOPROLOL 2021-0 Yes [id number] TAKE 1 [facility] SUCCINATE 6-27 TABLET BY ity o f XL 50 mg 24 00:00: MOUTH [place] hr tablet 00 EVERY DAY Medic al Branch OMEPRAZOLE 0 Yes [id number] TAKE 1 [facility] 20 mg 6-27 CAPSULE BY ity of capsule 00:00: MOUTH [place] 00 EVERY DAY Medical Branch METOPROLOL 0 Yes [id number] TAKE 1 [facility] SUCCINATE 6-27 TABLET BY ity o f XL 50 mg 24 00:00: MOUTH [place] hr tablet 00 EVERY DAY Medic al Branch OMEPRAZOLE 2021-0 Yes [id number] TAKE 1 [facility] 20 mg 6-27 CAPSULE BY ity of capsule 00:00: MOUTH [place] 00 EVERY DAY Medical Branch METOPROLOL 0 Yes [id number] TAKE 1 [facility] SUCCINATE 6-27 TABLET BY ity o f XL 50 mg 24 00:00: MOUTH [place] hr tablet 00 EVERY DAY Medic al Branch OMEPRAZOLE Yes [id number] TAKE 1 [facility] 20 mg 6-27 CAPSULE BY ity of capsule 00:00: MOUTH [place] 00 EVERY DAY Medical Branch METOPROLOL 0 Yes [id number] TAKE 1 [facility] SUCCINATE 6-27 TABLET BY ity o f XL 50 mg 24 00:00: MOUTH [place] hr tablet 00 EVERY DAY Medic al Branch OMEPRAZOLE 0 Yes [id number] TAKE 1 [facility] 20 mg 6-27 CAPSULE BY ity of capsule 00:00: MOUTH [place] 00 EVERY DAY Medical Branch METOPROLOL 0 Yes [id number] TAKE 1 [facility]ivers SUCCINATE 6-27 TABLET BY ity o f XL 50 mg 24 00:00: MOUTH [place] hr tablet 00 EVERY DAY Medic al Branch OMEPRAZOLE 0 Yes [id number] TAKE 1 [facility] 20 mg 6-27 CAPSULE BY ity of capsule 00:00: MOUTH [place] 00 EVERY DAY [facility] Branch METOPROLOL 0 Yes [id number] TAKE 1 [facility] nivers SUCCINATE 6-27 TABLET BY ity o f XL 50 mg 24 00:00: MOUTH [place] hr tablet 00 EVERY DAY Medic al Branch METOPROLOL 0 Yes [id number] TAKE 1 [facility] nivers SUCCINATE 6-27 TABLET BY ity o f XL 50 mg 24 00:00: MOUTH [place] hr tablet 00 EVERY DAY Medic al Branch METOPROLOL 0 Yes [id number] TAKE 1 [facility] nivers SUCCINATE 6-27 TABLET BY ity o f XL 50 mg 24 00:00: MOUTH [place] hr tablet 00 EVERY DAY Medic al Branch METOPROLOL 0 Yes [id number] TAKE 1 [facility] nivers SUCCINATE 6-27 TABLET BY ity o f XL 50 mg 24 00:00: MOUTH [place] hr tablet 00 EVERY DAY Medic al Branch METOPROLOL Yes [id number] TAKE 1 [facility] nivers SUCCINATE 6-27 TABLET BY ity o f XL 50 mg 24 00:00: MOUTH [place] hr tablet 00 EVERY DAY Medic al Branch METOPROLOL Yes [id number] TAKE 1 [facility] nivers SUCCINATE 6-27 TABLET BY ity o f XL 50 mg 24 00:00: MOUTH [place] hr tablet 00 EVERY DAY Medic al Branch METOPROLOL Yes [id number] TAKE 1 [facility] nivers SUCCINATE 6-27 TABLET BY ity o f XL 50 mg 24 00:00: MOUTH [place] hr tablet 00 EVERY DAY Medic al Branch METOPROLOL Yes [id number] TAKE 1 [facility] nivers SUCCINATE 6-27 TABLET BY ity o f XL 50 mg 24 00:00: MOUTH [place] hr tablet 00 EVERY DAY Medic al Branch METOPROLOL Yes [id number] TAKE 1 [facility] nivers SUCCINATE 6-27 TABLET BY ity o f XL 50 mg 24 00:00: MOUTH [place] hr tablet 00 EVERY DAY Medic al Branch METOPROLOL Yes [id number] TAKE 1 [facility] nivers SUCCINATE 6-27 TABLET BY ity o f XL 50 mg 24 00:00: MOUTH [place] hr tablet 00 EVERY DAY Medic al Branch METOPROLOL Yes [id number] TAKE 1 [facility] nivers SUCCINATE 6-27 TABLET BY ity o f XL 50 mg 24 00:00: MOUTH [place] hr tablet 00 EVERY DAY Medic al Branch METOPROLOL Yes [id number] TAKE 1 [facility] nivers SUCCINATE 6-27 TABLET BY ity o f XL 50 mg 24 00:00: MOUTH [place] hr tablet 00 EVERY DAY Medic al Branch METOPROLOL Yes [id number] TAKE 1 [facility] nivers SUCCINATE 6-27 TABLET BY ity o f XL 50 mg 24 00:00: MOUTH [place] hr tablet 00 EVERY DAY Medic al Branch METOPROLOL Yes [id number] TAKE 1 [facility] nivers SUCCINATE 6-27 TABLET BY ity o f XL 50 mg 24 00:00: MOUTH [place] hr tablet 00 EVERY DAY Medic al Branch METOPROLOL Yes [id number] TAKE 1 [facility] nivers SUCCINATE 6-27 TABLET BY ity o f XL 50 mg 24 00:00: MOUTH [place] hr tablet 00 EVERY DAY Medic al Branch METOPROLOL Yes [id number] TAKE 1 U nivers SUCCINATE 6-27 TABLET BY ity o f XL 50 mg 24 00:00: MOUTH [place] hr tablet 00 EVERY DAY Medic al Branch METOPROLOL Yes [id number] TAKE 1 U nivers SUCCINATE 6-27 TABLET BY ity o f XL 50 mg 24 00:00: MOUTH [place] hr tablet 00 EVERY DAY Medic al Branch METOPROLOL Yes [id number] TAKE 1 U nivers SUCCINATE 6-27 TABLET BY ity o f XL 50 mg 24 00:00: MOUTH [place] hr tablet 00 EVERY DAY Medic al Branch METOPROLOL Yes [id number] TAKE 1 [facility] nivers SUCCINATE 6-27 TABLET BY ity o f XL 50 mg 24 00:00: MOUTH [place] hr tablet 00 EVERY DAY Medic al Branch METOPROLOL Yes [id number] TAKE 1 U nivers SUCCINATE 6-27 TABLET BY ity o f XL 50 mg 24 00:00: MOUTH [place] hr tablet 00 EVERY DAY Medic al Branch METOPROLOL Yes [id number] TAKE 1 U nivers SUCCINATE 6-27 TABLET BY ity o f XL 50 mg 24 00:00: MOUTH [place] hr tablet 00 EVERY DAY Medic al Branch METOPROLOL Yes [id number] TAKE 1 U nivers SUCCINATE 6-27 TABLET BY ity o f XL 50 mg 24 00:00: MOUTH [place] hr tablet 00 EVERY DAY Medic al Branch METOPROLOL Yes [id number] TAKE 1 U nivers SUCCINATE 6-27 TABLET BY ity o f XL 50 mg 24 00:00: MOUTH [place] hr tablet 00 EVERY DAY Medic al Branch METOPROLOL Yes [id number] TAKE 1 U nivers SUCCINATE 6-27 TABLET BY ity o f XL 50 mg 24 00:00: MOUTH [place] hr tablet 00 EVERY DAY Medic al Branch OMEPRAZOLE 2022- No [id number] TAKE 1 [facility] 20 mg 6-27 05-10 CAPSULE BY ity of capsule 00:00: 00:00 MOUTH [place] 00 :00 EVERY DAY Medical Branch terbinafine 2021- No [id number] Apply to [facility] HCL 1 % 6-14 05-09 area(s) 2 ity of cream 00:00: 00:00 (two) [place] 00 :00 times Medical daily. Branch escitalopra Yes [id number] 20mg Take 1 [facility] m oxalate 6-08 tablet by ity o f 20 mg 00:00: mouth [place] tablet 00 daily. [facility] Branch escitalopra Yes [id number] 20mg Take 1 [facility] m oxalate 6-08 tablet by ity o f 20 mg 00:00: mouth [place] tablet 00 daily. [facility] escitalopra Yes [id number] 20mg Take 1 [facility] m oxalate 6-08 tablet by ity o f 20 mg 00:00: mouth [place] tablet 00 daily. [facility] Branch escitalopra Yes [id number] 20mg Take 1 [facility] m oxalate 6-08 tablet by ity o f 20 mg 00:00: mouth [place] tablet 00 daily. [facility] Branch escitalopra Yes [id number] 20mg Take 1 [facility] m oxalate 6-08 tablet by ity o f 20 mg 00:00: mouth [place] tablet 00 daily. [facility] escitalopra Yes [id number] 20mg Take 1 [facility] m oxalate 6-08 tablet by ity o f 20 mg 00:00: mouth [place] tablet 00 daily. [facility] Branch escitalopra Yes [id number] 20mg Take 1 [facility] m oxalate 6-08 tablet by ity o f 20 mg 00:00: mouth [place] tablet 00 daily. [facility] escitalopra Yes [id number] 20mg Take 1 [facility] m oxalate 6-08 tablet by ity o f 20 mg 00:00: mouth [place] tablet 00 daily. [facility] Branch escitalopra Yes [id number] 20mg Take 1 [facility] m oxalate 6-08 tablet by ity o f 20 mg 00:00: mouth [place] tablet 00 daily. [facility] Branch escitalopra Yes [id number] 20mg Take 1 [facility] m oxalate 6-08 tablet by ity o f 20 mg 00:00: mouth [place] tablet 00 daily. [facility] escitalopra Yes [id number] 20mg Take 1 [facility] m oxalate 6-08 tablet by ity o f 20 mg 00:00: mouth [place] tablet 00 daily. [facility] escitalopra Yes [id number] 20mg Take 1 [facility] m oxalate 6-08 tablet by ity o f 20 mg 00:00: mouth [place] tablet 00 daily. Medical Branch escitalopra Yes [id number] 20mg Take 1 [facility] m oxalate 6-08 tablet by ity o f 20 mg 00:00: mouth [place] tablet 00 daily. Medical Branch escitalopra Yes [id number] 20mg Take 1 [facility] m oxalate 6-08 tablet by ity o f 20 mg 00:00: mouth [place] tablet 00 daily. Medical Branch escitalopra 2021- No [id number] 20mg Take 1 [facility] m oxalate 6-08 12-28 tablet by ity of 20 mg 00:00: 00:00 mouth [place] tablet 00 :00 daily. Medical Branch zolpidem 2021- No [id number] 10mg Take 1 U nivers (AMBIEN) 10 4-18 08-29 tablet by it y of mg tablet 00:00: 00:00 mouth at [place] 00 :00 bedtime as Medical needed for Branch Insomnia. nystatin 2021- No [id number] Take 5 mL [facility] 100,000 1-24 08-29 by mouth 4 ity o f unit/mL 00:00: 00:00 (four) [place] suspension 00 :00 times Medical daily. Branch fluticasone 2020-09 Yes [id number] 1{puff} Inhale 1 [facility] furoate-anu 2-30 Puff ity of anteroL 00:00: daily. [place] ([place] 00 Medical ELLIPTA) Branch 100-25 mcg/dose DsDv albuterol 2020-09 Yes [id number] 2.5mg Inhale 3 [facility] 2.5 mg /3 2-30 mL every 4 ity of mL (0.083 00:00: (four) [place] %) 00 hours as Medical nebulizer needed for Bran ch solution Wheezing or Shortness of Breath. albuterol 2020-09 Yes [id number] 2{puff} Inhale 2 [facility] 90 2-30 Puffs ity of mcg/actuati 00:00: every 6 [place] on inhaler 00 (six) Medical hours as Branch needed for Wheezing or Shortness of Breath. fluticasone 2020-09 Yes [id number] 1{puff} Inhale 1 [facility] furoate-anu 2-30 Puff ity of anteroL 00:00: daily. [place] ([place] [id number] Medical ELLIPTA) Branch 100-25 mcg/dose DsDv albuterol 2020-09 Yes [id number] 2.5mg Inhale 3 [facility] 2.5 mg /3 2-30 mL every 4 ity of mL (0.083 00:00: (four) [place] %) 00 hours as Medical nebulizer needed for Bran ch solution Wheezing or Shortness of Breath. albuterol 2020-09 Yes [id number] 2{puff} Inhale 2 [facility] 90 2-30 Puffs ity of mcg/actuati 00:00: every 6 [place] on inhaler 00 (six) Medical hours as Branch needed for Wheezing or Shortness of Breath. fluticasone 2020-09 Yes [id number] 1{puff} Inhale 1 [facility] furoate-anu 2-30 Puff ity of anteroL 00:00: daily. [place] ([place] [address] Medical ELLIP) Branch 100-25 mcg/dose DsDv albuterol 2020-09 Yes [id number] 2.5mg Inhale 3 [facility] 2.5 mg /3 2-30 mL every 4 ity of mL (0.083 00:00: (four) [place] %) 00 hours as Medical nebulizer needed for Bran ch solution Wheezing or Shortness of Breath. albuterol 2020-09 Yes [id number] 2{puff} Inhale 2 [facility] 90 2-30 Puffs ity of mcg/actuati 00:00: every 6 [place] on inhaler 00 (six) Medical hours as Branch needed for Wheezing or Shortness of Breath. fluticasone 2020-09 Yes [id number] 1{puff} Inhale 1 [facility] furoate-anu 2-30 Puff ity of anteroL 00:00: daily. [place] ([place] [address] Medical ELLIP) Branch 100-25 mcg/dose DsDv albuterol 2020-09 Yes [id number] 2.5mg Inhale 3 [facility] 2.5 mg /3 2-30 mL every 4 ity of mL (0.083 00:00: (four) [place] %) 00 hours as Medical nebulizer needed for Bran ch solution Wheezing or Shortness of Breath. albuterol 2020-09 Yes [id number] 2{puff} Inhale 2 [facility] 90 2-30 Puffs ity of mcg/actuati 00:00: every 6 [place] on inhaler 00 (six) Medical hours as Branch needed for Wheezing or Shortness of Breath. fluticasone 2020-09 Yes [id number] 1{puff} Inhale 1 [facility] furoate-anu 2-30 Puff ity of anteroL 00:00: daily. [place] ([address]) Branch 100-25 mcg/dose DsDv albuterol 2020-09 Yes [id number] 2.5mg Inhale 3 Univers 2.5 mg /3 2-30 mL every 4 ity of mL (0.083 00:00: (four) [place] %) 00 hours as Medical nebulizer needed for Bran ch solution Wheezing or Shortness of Breath. albuterol 2020-09 Yes [id number] 2{puff} Inhale 2 [facility] 90 2-30 Puffs ity of mcg/actuati 00:00: every 6 [place] on inhaler 00 (six) Medical hours as Branch needed for Wheezing or Shortness of Breath. fluticasone 2020-09 Yes [id number] 1{puff} Inhale 1 [facility] furoate-anu 2-30 Puff ity of anteroL 00:00: daily. [place] ([address]) Branch 100-25 mcg/dose DsDv albuterol 2020-09 Yes [id number] 2.5mg Inhale 3 [facility] 2.5 mg /3 2-30 mL every 4 ity of mL (0.083 00:00: (four) [place] %) 00 hours as Medical nebulizer needed for Bran ch solution Wheezing or Shortness of Breath. albuterol 2020-09 Yes [id number] 2{puff} Inhale 2 [facility] 90 2-30 Puffs ity of mcg/actuati 00:00: every 6 [place] on inhaler 00 (six) Medical hours as Branch needed for Wheezing or Shortness of Breath. fluticasone 2020-09 Yes [id number] 1{puff} Inhale 1 [facility] furoate-anu 2-30 Puff ity of anteroL 00:00: daily. [place] ([address]) Branch 100-25 mcg/dose DsDv albuterol 2020-09 Yes [id number] 2.5mg Inhale 3 Univers 2.5 mg /3 2-30 mL every 4 ity of mL (0.083 00:00: (four) [place] %) 00 hours as Medical nebulizer needed for Bran ch solution Wheezing or Shortness of Breath. albuterol 2020-09 Yes [id number] 2{puff} Inhale 2 [facility] 90 2-30 Puffs ity of mcg/actuati 00:00: every 6 [place] on inhaler 00 (six) Medical hours as Branch needed for Wheezing or Shortness of Breath. fluticasone 2020-09 Yes [id number] 1{puff} Inhale 1 [facility] furoate-anu 2-30 Puff ity of anteroL 00:00: daily. [place] ([address]) Branch 100-25 mcg/dose DsDv albuterol 2020-09 Yes [id number] 2.5mg Inhale 3 Univers 2.5 mg /3 2-30 mL every 4 ity of mL (0.083 00:00: (four) [place] %) 00 hours as Medical nebulizer needed for Bran ch solution Wheezing or Shortness of Breath. albuterol 2020-09 Yes [id number] 2{puff} Inhale 2 [facility] 90 2-30 Puffs ity of mcg/actuati 00:00: every 6 [place] on inhaler 00 (six) Medical hours as Branch needed for Wheezing or Shortness of Breath. fluticasone 2020-09 Yes [id number] 1{puff} Inhale 1 [facility] furoate-anu 2-30 Puff ity of anteroL 00:00: daily. [place] ([address]) Branch 100-25 mcg/dose DsDv albuterol 2020-09 Yes [id number] 2.5mg Inhale 3 Univers 2.5 mg /3 2-30 mL every 4 ity of mL (0.083 00:00: (four) [place] %) 00 hours as Medical nebulizer needed for Bran ch solution Wheezing or Shortness of Breath. albuterol 2020-09 Yes [id number] 2{puff} Inhale 2 [facility] 90 2-30 Puffs ity of mcg/actuati 00:00: every 6 [place] on inhaler 00 (six) Medical hours as Branch needed for Wheezing or Shortness of Breath. fluticasone 2020-09 Yes [id number] 1{puff} Inhale 1 [facility] furoate-anu 2-30 Puff ity of anteroL 00:00: daily. [place] ([facility] 00 Medical ELLIP) Branch 100-25 mcg/dose DsDv albuterol 2020-09 Yes [id number] 2.5mg Inhale 3 Univers 2.5 mg /3 2-30 mL every 4 ity of mL (0.083 00:00: (four) [place] %) 00 hours as Medical nebulizer needed for Bran ch solution Wheezing or Shortness of Breath. albuterol 2020-09 Yes [id number] 2{puff} Inhale 2 [facility] 90 2-30 Puffs ity of mcg/actuati 00:00: every 6 [place] on inhaler 00 (six) Medical hours as Branch needed for Wheezing or Shortness of Breath. fluticasone 2020-09 Yes [id number] 1{puff} Inhale 1 [facility] furoate-anu 2-30 Puff ity of anteroL 00:00: daily. [place] ([address]) Branch 100-25 mcg/dose DsDv albuterol 2020-09 Yes [id number] 2.5mg Inhale 3 Univers 2.5 mg /3 2-30 mL every 4 ity of mL (0.083 00:00: (four) [place] %) 00 hours as Medical nebulizer needed for Bran ch solution Wheezing or Shortness of Breath. albuterol 2020-09 Yes [id number] 2{puff} Inhale 2 [facility] 90 2-30 Puffs ity of mcg/actuati 00:00: every 6 [place] on inhaler 00 (six) Medical hours as Branch needed for Wheezing or Shortness of Breath. fluticasone 2020-09 Yes [id number] 1{puff} Inhale 1 [facility] furoate-anu 2-30 Puff ity of anteroL 00:00: daily. [place] ([facility] 00 Medical ELLIPTA) Branch 100-25 mcg/dose DsDv albuterol 2020-09 Yes [id number] 2.5mg Inhale 3 Univers 2.5 mg /3 2-30 mL every 4 ity of mL (0.083 00:00: (four) [place] %) 00 hours as Medical nebulizer needed for Bran ch solution Wheezing or Shortness of Breath. albuterol 2020-09 Yes [id number] 2{puff} Inhale 2 Univers 90 2-30 Puffs ity of mcg/actuati 00:00: every 6 [place] on inhaler 00 (six) Medical hours as Branch needed for Wheezing or Shortness of Breath. fluticasone 2020-09 Yes [id number] 1{puff} Inhale 1 [facility] furoate-anu 2-30 Puff ity of anteroL 00:00: daily. [place] ([address]) Branch 100-25 mcg/dose DsDv albuterol 2020-09 Yes [id number] 2.5mg Inhale 3 Univers 2.5 mg /3 2-30 mL every 4 ity of mL (0.083 00:00: (four) [place] %) 00 hours as Medical nebulizer needed for Bran ch solution Wheezing or Shortness of Breath. albuterol 2020-09 Yes [id number] 2{puff} Inhale 2 Univers 90 2-30 Puffs ity of mcg/actuati 00:00: every 6 [place] on inhaler 00 (six) Medical hours as Branch needed for Wheezing or Shortness of Breath. fluticasone 2020-09 Yes [id number] 1{puff} Inhale 1 [facility] furoate-anu 2-30 Puff ity of anteroL 00:00: daily. [place] ([address]) Branch 100-25 mcg/dose DsDv albuterol 2020-09 Yes [id number] 2.5mg Inhale 3 Univers 2.5 mg /3 2-30 mL every 4 ity of mL (0.083 00:00: (four) [place] %) 00 hours as Medical nebulizer needed for Bran ch solution Wheezing or Shortness of Breath. albuterol 2020-09 Yes [id number] 2{puff} Inhale 2 Univers 90 2-30 Puffs ity of mcg/actuati 00:00: every 6 [place] on inhaler 00 (six) Medical hours as Branch needed for Wheezing or Shortness of Breath. fluticasone 2020-09 Yes [id number] 1{puff} Inhale 1 [facility] furoate-anu 2-30 Puff ity of anteroL 00:00: daily. [place] ([address]) Branch 100-25 mcg/dose DsDv albuterol 2020-09 Yes [id number] 2.5mg Inhale 3 Univers 2.5 mg /3 2-30 mL every 4 ity of mL (0.083 00:00: (four) [place] %) 00 hours as Medical nebulizer needed for Bran ch solution Wheezing or Shortness of Breath. albuterol 2020-09 Yes [id number] 2{puff} Inhale 2 Univers 90 2-30 Puffs ity of mcg/actuati 00:00: every 6 [place] on inhaler 00 (six) Medical hours as Branch needed for Wheezing or Shortness of Breath. fluticasone 2020-09 Yes [id number] 1{puff} Inhale 1 Univers furoate-anu 2-30 Puff ity of anteroL 00:00: daily. [place] ([address]) Branch 100-25 mcg/dose DsDv albuterol 2020-09 Yes [id number] 2.5mg Inhale 3 Univers 2.5 mg /3 2-30 mL every 4 ity of mL (0.083 00:00: (four) [place] %) 00 hours as Medical nebulizer needed for Bran ch solution Wheezing or Shortness of Breath. albuterol 2020-09 Yes [id number] 2{puff} Inhale 2 Univers 90 2-30 Puffs ity of mcg/actuati 00:00: every 6 [place] as on inhaler 00 (six) Medical hours as Branch needed for Wheezing or Shortness of Breath. fluticasone 2020-09 Yes [id number] 1{puff} Inhale 1 [facility] furoate-anu 2-30 Puff ity of anteroL 00:00: daily. [place] ([address]) Branch 100-25 mcg/dose DsDv albuterol 2020-09 Yes [id number] 2.5mg Inhale 3 Univers 2.5 mg /3 2-30 mL every 4 ity of mL (0.083 00:00: (four) [place] %) 00 hours as Medical nebulizer needed for Bran ch solution Wheezing or Shortness of Breath. albuterol 2020-09 Yes [id number] 2{puff} Inhale 2 Univers 90 2-30 Puffs ity of mcg/actuati 00:00: every 6 [place] as on inhaler 00 (six) Medical hours as Branch needed for Wheezing or Shortness of Breath. fluticasone 2020-09 Yes [id number] 1{puff} Inhale 1 Univers furoate-anu 2-30 Puff ity of anteroL 00:00: daily. [place] ([address]) Branch 100-25 mcg/dose DsDv albuterol 2020-09 Yes [id number] 2.5mg Inhale 3 Univers 2.5 mg /3 2-30 mL every 4 ity of mL (0.083 00:00: (four) [place] %) 00 hours as Medical nebulizer needed for Bran ch solution Wheezing or Shortness of Breath. albuterol 2020-09 Yes [id number] 2{puff} Inhale 2 Univers 90 2-30 Puffs ity of mcg/actuati 00:00: every 6 [place] as on inhaler 00 (six) Medical hours as Branch needed for Wheezing or Shortness of Breath. fluticasone 2020-09 Yes [id number] 1{puff} Inhale 1 [facility] furoate-anu 2-30 Puff ity of anteroL 00:00: daily. [place] ([address]) Branch 100-25 mcg/dose DsDv albuterol 2020-09 Yes [id number] 2.5mg Inhale 3 Univers 2.5 mg /3 2-30 mL every 4 ity of mL (0.083 00:00: (four) [place] %) 00 hours as Medical nebulizer needed for Bran ch solution Wheezing or Shortness of Breath. albuterol 2020-09 Yes [id number] 2{puff} Inhale 2 Univers 90 2-30 Puffs ity of mcg/actuati 00:00: every 6 [place] as on inhaler 00 (six) Medical hours as Branch needed for Wheezing or Shortness of Breath. fluticasone 2020-09 Yes [id number] 1{puff} Inhale 1 [facility] furoate-anu 2-30 Puff ity of anteroL 00:00: daily. [place] ([address]) Branch 100-25 mcg/dose DsDv albuterol 2020-09 Yes [id number] 2.5mg Inhale 3 [facility] 2.5 mg /3 2-30 mL every 4 ity of mL (0.083 00:00: (four) [place] %) 00 hours as Medical nebulizer needed for Bran ch solution Wheezing or Shortness of Breath. albuterol 2020-09 Yes [id number] 2{puff} Inhale 2 [facility] 90 2-30 Puffs ity of mcg/actuati 00:00: every 6 [facility] as on inhaler 00 (six) Medical hours as Branch needed for Wheezing or Shortness of Breath. fluticasone 2020-09 Yes [id number] 1{puff} Inhale 1 [facility] furoate-anu 2-30 Puff ity of anteroL 00:00: daily. [place] ([address]) Branch 100-25 mcg/dose DsDv albuterol 2020-09 Yes [id number] 2.5mg Inhale 3 [facility] 2.5 mg /3 2-30 mL every 4 ity of mL (0.083 00:00: (four) [place] %) 00 hours as Medical nebulizer needed for Bran ch solution Wheezing or Shortness of Breath. albuterol 2020-09 Yes [id number] 2{puff} Inhale 2 [facility] 90 2-30 Puffs ity of mcg/actuati 00:00: every 6 [facility] as on inhaler 00 (six) Medical hours as Branch needed for Wheezing or Shortness of Breath. fluticasone 2020-09 Yes [id number] 1{puff} Inhale 1 [facility] furoate-anu 2-30 Puff ity of anteroL 00:00: daily. [place] ([address]) Branch 100-25 mcg/dose DsDv albuterol 2020-09 Yes [id number] 2.5mg Inhale 3 [facility] 2.5 mg /3 2-30 mL every 4 ity of mL (0.083 00:00: (four) [place] %) 00 hours as Medical nebulizer needed for Bran ch solution Wheezing or Shortness of Breath. albuterol 2020-09 Yes [id number] 2{puff} Inhale 2 [facility] 90 2-30 Puffs ity of mcg/actuati 00:00: every 6 [facility] as on inhaler 00 (six) Medical hours as Branch needed for Wheezing or Shortness of Breath. fluticasone 2020-09 Yes [id number] 1{puff} Inhale 1 [facility] furoate-anu 2-30 Puff ity of anteroL 00:00: daily. [place] ([address]) Branch 100-25 mcg/dose DsDv albuterol 2020-09 Yes [id number] 2.5mg Inhale 3 [facility] 2.5 mg /3 2-30 mL every 4 ity of mL (0.083 00:00: (four) [place] %) 00 hours as Medical nebulizer needed for Bran ch solution Wheezing or Shortness of Breath. albuterol 2020-09 Yes [id number] 2{puff} Inhale 2 [facility] 90 2-30 Puffs ity of mcg/actuati 00:00: every 6 [facility] as on inhaler 00 (six) Medical hours as Branch needed for Wheezing or Shortness of Breath. fluticasone 2020-09 Yes [id number] 1{puff} Inhale 1 [facility] furoate-anu 2-30 Puff ity of anteroL 00:00: daily. [place] ([address]) Branch 100-25 mcg/dose DsDv albuterol 2020-09 Yes [id number] 2.5mg Inhale 3 [facility] 2.5 mg /3 2-30 mL every 4 ity of mL (0.083 00:00: (four) [place] %) 00 hours as Medical nebulizer needed for Bran ch solution Wheezing or Shortness of Breath. albuterol 2020-09 Yes [id number] 2{puff} Inhale 2 [facility] 90 2-30 Puffs ity of mcg/actuati 00:00: every 6 [facility] as on inhaler 00 (six) Medical hours as Branch needed for Wheezing or Shortness of Breath. fluticasone 2020-09 Yes [id number] 1{puff} Inhale 1 [facility] furoate-anu 2-30 Puff ity of anteroL 00:00: daily. [place] ([address]) Branch 100-25 mcg/dose DsDv albuterol 2020-09 Yes [id number] 2.5mg Inhale 3 [facility] 2.5 mg /3 2-30 mL every 4 ity of mL (0.083 00:00: (four) [place] %) 00 hours as Medical nebulizer needed for Bran ch solution Wheezing or Shortness of Breath. albuterol 2020-09 Yes [id number] 2{puff} Inhale 2 [facility] 90 2-30 Puffs ity of mcg/actuati 00:00: every 6 [facility] as on inhaler 00 (six) Medical hours as Branch needed for Wheezing or Shortness of Breath. fluticasone 2020-09 Yes [id number] 1{puff} Inhale 1 [facility] furoate-anu 2-30 Puff ity of anteroL 00:00: daily. [place] ([address]) Branch 100-25 mcg/dose DsDv albuterol 2020-09 Yes [id number] 2.5mg Inhale 3 [facility] 2.5 mg /3 2-30 mL every 4 ity of mL (0.083 00:00: (four) [place] %) 00 hours as Medical nebulizer needed for Bran ch solution Wheezing or Shortness of Breath. albuterol 2020-09 Yes [id number] 2{puff} Inhale 2 [facility] 90 2-30 Puffs ity of mcg/actuati 00:00: every 6 [facility] as on inhaler 00 (six) Medical hours as Branch needed for Wheezing or Shortness of Breath. fluticasone 2020-09 Yes [id number] 1{puff} Inhale 1 [facility] furoate-anu 2-30 Puff ity of anteroL 00:00: daily. [place] ([address]) Branch 100-25 mcg/dose DsDv albuterol 2020-09 Yes [id number] 2.5mg Inhale 3 [facility] 2.5 mg /3 2-30 mL every 4 ity of mL (0.083 00:00: (four) [place] %) 00 hours as Medical nebulizer needed for Bran ch solution Wheezing or Shortness of Breath. albuterol 2020-09 Yes [id number] 2{puff} Inhale 2 [facility] 90 2-30 Puffs ity of mcg/actuati 00:00: every 6 [facility] as on inhaler 00 (six) Medical hours as Branch needed for Wheezing or Shortness of Breath. fluticasone 2020-09 Yes [id number] 1{puff} Inhale 1 [facility] furoate-anu 2-30 Puff ity of anteroL 00:00: daily. [place] ([address]) Branch 100-25 mcg/dose DsDv albuterol 2020-09 Yes [id number] 2.5mg Inhale 3 [facility] 2.5 mg /3 2-30 mL every 4 ity of mL (0.083 00:00: (four) [place] %) 00 hours as Medical nebulizer needed for Bran ch solution Wheezing or Shortness of Breath. albuterol 2020-09 Yes [id number] 2{puff} Inhale 2 [facility] 90 2-30 Puffs ity of mcg/actuati 00:00: every 6 [facility] as on inhaler 00 (six) Medical hours as Branch needed for Wheezing or Shortness of Breath. fluticasone 2020-09 Yes [id number] 1{puff} Inhale 1 [facility] furoate-anu 2-30 Puff ity of anteroL 00:00: daily. [place] ([address]) Branch 100-25 mcg/dose DsDv albuterol 2020-09 Yes [id number] 2.5mg Inhale 3 [facility] 2.5 mg /3 2-30 mL every 4 ity of mL (0.083 00:00: (four) [place] %) 00 hours as Medical nebulizer needed for Bran ch solution Wheezing or Shortness of Breath. albuterol 2020-09 Yes [id number] 2{puff} Inhale 2 [facility] 90 2-30 Puffs ity of mcg/actuati 00:00: every 6 [facility] as on inhaler 00 (six) Medical hours as Branch needed for Wheezing or Shortness of Breath. fluticasone 2020-09 Yes [id number] 1{puff} Inhale 1 [facility] furoate-anu 2-30 Puff ity of anteroL 00:00: daily. [place] ([address]) Branch 100-25 mcg/dose DsDv albuterol 2020-09 Yes [id number] 2.5mg Inhale 3 [facility] 2.5 mg /3 2-30 mL every 4 ity of mL (0.083 00:00: (four) [place] %) 00 hours as Medical nebulizer needed for Bran ch solution Wheezing or Shortness of Breath. albuterol 2020-09 Yes [id number] 2{puff} Inhale 2 [facility] 90 2-30 Puffs ity of mcg/actuati 00:00: every 6 [facility] as on inhaler 00 (six) Medical hours as Branch needed for Wheezing or Shortness of Breath. fluticasone 2020-09 Yes [id number] 1{puff} Inhale 1 [facility] furoate-anu 2-30 Puff ity of anteroL 00:00: daily. [place] ([address]) Branch 100-25 mcg/dose DsDv albuterol 2020-09 Yes [id number] 2.5mg Inhale 3 [facility] 2.5 mg /3 2-30 mL every 4 ity of mL (0.083 00:00: (four) [place] %) 00 hours as Medical nebulizer needed for Bran ch solution Wheezing or Shortness of Breath. albuterol 2020-09 Yes [id number] 2{puff} Inhale 2 [facility] 90 2-30 Puffs ity of mcg/actuati 00:00: every 6 [facility] as on inhaler 00 (six) Medical hours as Branch needed for Wheezing or Shortness of Breath. fluticasone 2020-09 Yes [id number] 1{puff} Inhale 1 [facility] furoate-anu 2-30 Puff ity of anteroL 00:00: daily. [place] ([address]) Branch 100-25 mcg/dose DsDv albuterol 2020-09 Yes [id number] 2.5mg Inhale 3 [facility] 2.5 mg /3 2-30 mL every 4 ity of mL (0.083 00:00: (four) [place] %) 00 hours as Medical nebulizer needed for Bran ch solution Wheezing or Shortness of Breath. albuterol 2020-09 Yes [id number] 2{puff} Inhale 2 [facility] 90 2-30 Puffs ity of mcg/actuati 00:00: every 6 [facility] as on inhaler 00 (six) Medical hours as Branch needed for Wheezing or Shortness of Breath. fluticasone 2020-09 Yes [id number] 1{puff} Inhale 1 [facility] furoate-anu 2-30 Puff ity of anteroL 00:00: daily. [place] ([address]) Branch 100-25 mcg/dose DsDv albuterol 2020-09 Yes [id number] 2.5mg Inhale 3 [facility] 2.5 mg /3 2-30 mL every 4 ity of mL (0.083 00:00: (four) [place] %) 00 hours as Medical nebulizer needed for Bran ch solution Wheezing or Shortness of Breath. albuterol 2020-09 Yes [id number] 2{puff} Inhale 2 [facility] 90 2-30 Puffs ity of mcg/actuati 00:00: every 6 [facility] as on inhaler 00 (six) Medical hours as Branch needed for Wheezing or Shortness of Breath. fluticasone 2020-09 Yes [id number] 1{puff} Inhale 1 [facility] furoate-anu 2-30 Puff ity of anteroL 00:00: daily. [place] ([address]) Branch 100-25 mcg/dose DsDv albuterol 2020-09 Yes [id number] 2.5mg Inhale 3 [facility] 2.5 mg /3 2-30 mL every 4 ity of mL (0.083 00:00: (four) [place] %) 00 hours as Medical nebulizer needed for Bran ch solution Wheezing or Shortness of Breath. albuterol 2020-09 Yes [id number] 2{puff} Inhale 2 [facility] 90 2-30 Puffs ity of mcg/actuati 00:00: every 6 [facility] as on inhaler 00 (six) Medical hours as Branch needed for Wheezing or Shortness of Breath. fluticasone 2020-09 Yes [id number] 1{puff} Inhale 1 [facility] furoate-anu 2-30 Puff ity of anteroL 00:00: daily. [address]) Branch 100-25 mcg/dose DsDv albuterol 2020-09 Yes [id number] 2.5mg Inhale 3 [facility] 2.5 mg /3 2-30 mL every 4 ity of mL (0.083 00:00: (four) [place] %) 00 hours as Medical nebulizer needed for Bran ch solution Wheezing or Shortness of Breath. albuterol 2020-09 Yes [id number] 2{puff} Inhale 2 [facility] 90 2-30 Puffs ity of mcg/actuati 00:00: every 6 [facility] as on inhaler 00 (six) Medical hours as Branch needed for Wheezing or Shortness of Breath. fluticasone 2020-09 Yes [id number] 1{puff} Inhale 1 [facility] furoate-anu 2-30 Puff ity of anteroL 00:00: daily. [place] ([address]) Branch 100-25 mcg/dose DsDv albuterol 2020-09 Yes [id number] 2.5mg Inhale 3 [facility] 2.5 mg /3 2-30 mL every 4 ity of mL (0.083 00:00: (four) [place] %) 00 hours as Medical nebulizer needed for Bran ch solution Wheezing or Shortness of Breath. albuterol 2020-09 Yes [id number] 2{puff} Inhale 2 [facility] 90 2-30 Puffs ity of mcg/actuati 00:00: every 6 [facility] as on inhaler 00 (six) Medical hours as Branch needed for Wheezing or Shortness of Breath. albuterol 2020-09 Yes [id number] 2.5mg Inhale 3 [facility] 2.5 mg /3 2-30 mL every 4 ity of mL (0.083 00:00: (four) [place] %) 00 hours as Medical nebulizer needed for Bran ch solution Wheezing or Shortness of Breath. albuterol 2020-09 Yes [id number] 2{puff} Inhale 2 [facility] 90 2-30 Puffs ity of mcg/actuati 00:00: every 6 [facility] as on inhaler 00 (six) Medical hours as Branch needed for Wheezing or Shortness of Breath. albuterol 2020-09 Yes [id number] 2.5mg Inhale 3 [facility] 2.5 mg /3 2-30 mL every 4 ity of mL (0.083 00:00: (four) [place] %) 00 hours as Medical nebulizer needed for Bran ch solution Wheezing or Shortness of Breath. albuterol 2020-09 Yes [id number] 2{puff} Inhale 2 [facility] 90 2-30 Puffs ity of mcg/actuati 00:00: every 6 [facility] as on inhaler 00 (six) Medical hours as Branch needed for Wheezing or Shortness of Breath. albuterol 2020-09 Yes [id number] 2.5mg Inhale 3 [facility] 2.5 mg /3 2-30 mL every 4 ity of mL (0.083 00:00: (four) [place] %) 00 hours as Medical nebulizer needed for Bran ch solution Wheezing or Shortness of Breath. albuterol 2020-09 Yes [id number] 2{puff} Inhale 2 [facility] 90 2-30 Puffs ity of mcg/actuati 00:00: every 6 [facility] as on inhaler 00 (six) Medical hours as Branch needed for Wheezing or Shortness of Breath. albuterol 2020-09 Yes [id number] 2.5mg Inhale 3 [facility] 2.5 mg /3 2-30 mL every 4 ity of mL (0.083 00:00: (four) [place] %) 00 hours as Medical nebulizer needed for Bran ch solution Wheezing or Shortness of Breath. albuterol 2020-09 Yes [id number] 2{puff} Inhale 2 [facility] 90 2-30 Puffs ity of mcg/actuati 00:00: every 6 [facility] as on inhaler 00 (six) Medical hours as Branch needed for Wheezing or Shortness of Breath. albuterol 2020-09 Yes [id number] 2.5mg Inhale 3 [facility] 2.5 mg /3 2-30 mL every 4 ity of mL (0.083 00:00: (four) [place] %) 00 hours as Medical nebulizer needed for Bran ch solution Wheezing or Shortness of Breath. albuterol 2020-09 Yes [id number] 2{puff} Inhale 2 [facility] 90 2-30 Puffs ity of mcg/actuati 00:00: every 6 [facility] as on inhaler 00 (six) Medical hours as Branch needed for Wheezing or Shortness of Breath. albuterol 2020-09 Yes [id number] 2.5mg Inhale 3 [facility] 2.5 mg /3 2-30 mL every 4 ity of mL (0.083 00:00: (four) [place] %) 00 hours as Medical nebulizer needed for Bran ch solution Wheezing or Shortness of Breath. albuterol 2020-09 Yes [id number] 2{puff} Inhale 2 [facility] 90 2-30 Puffs ity of mcg/actuati 00:00: every 6 [facility] as on inhaler 00 (six) Medical hours as Branch needed for Wheezing or Shortness of Breath. albuterol 2020-09 Yes [id number] 2.5mg Inhale 3 [facility] 2.5 mg /3 2-30 mL every 4 ity of mL (0.083 00:00: (four) [place] %) 00 hours as Medical nebulizer needed for Bran ch solution Wheezing or Shortness of Breath. albuterol 2020-09 Yes [id number] 2{puff} Inhale 2 [facility] 90 2-30 Puffs ity of mcg/actuati 00:00: every 6 [facility] as on inhaler 00 (six) Medical hours as Branch needed for Wheezing or Shortness of Breath. albuterol 2020-09 Yes [id number] 2.5mg Inhale 3 [facility] 2.5 mg /3 2-30 mL every 4 ity of mL (0.083 00:00: (four) [place] %) 00 hours as Medical nebulizer needed for Bran ch solution Wheezing or Shortness of Breath. albuterol 2020-09 Yes [id number] 2{puff} Inhale 2 [facility] 90 2-30 Puffs ity of mcg/actuati 00:00: every 6 [facility] as on inhaler 00 (six) Medical hours as Branch needed for Wheezing or Shortness of Breath. albuterol 2020-09 Yes [id number] 2.5mg Inhale 3 [facility] 2.5 mg /3 2-30 mL every 4 ity of mL (0.083 00:00: (four) [place] %) 00 hours as Medical nebulizer needed for Bran ch solution Wheezing or Shortness of Breath. albuterol 2020-09 Yes [id number] 2{puff} Inhale 2 [facility] 90 2-30 Puffs ity of mcg/actuati 00:00: every 6 [facility] as on inhaler 00 (six) Medical hours as Branch needed for Wheezing or Shortness of Breath. albuterol 2020-09 Yes [id number] 2.5mg Inhale 3 [facility] 2.5 mg /3 2-30 mL every 4 ity of mL (0.083 00:00: (four) [place] %) 00 hours as Medical nebulizer needed for Bran ch solution Wheezing or Shortness of Breath. albuterol 2020-09 Yes [id number] 2{puff} Inhale 2 [facility] 90 2-30 Puffs ity of mcg/actuati 00:00: every 6 [facility] as on inhaler 00 (six) Medical hours as Branch needed for Wheezing or Shortness of Breath. albuterol 2020-09 Yes [id number] 2.5mg Inhale 3 [facility] 2.5 mg /3 2-30 mL every 4 ity of mL (0.083 00:00: (four) [place] %) 00 hours as Medical nebulizer needed for Bran ch solution Wheezing or Shortness of Breath. albuterol 2020-09 Yes [id number] 2{puff} Inhale 2 [facility] 90 2-30 Puffs ity of mcg/actuati 00:00: every 6 [facility] as on inhaler 00 (six) Medical hours as Branch needed for Wheezing or Shortness of Breath. albuterol 2020-09 Yes [id number] 2.5mg Inhale 3 [facility] 2.5 mg /3 2-30 mL every 4 ity of mL (0.083 00:00: (four) [place] %) 00 hours as Medical nebulizer needed for Bran ch solution Wheezing or Shortness of Breath. albuterol 2020-09 Yes [id number] 2{puff} Inhale 2 [facility] 90 2-30 Puffs ity of mcg/actuati 00:00: every 6 [facility] as on inhaler 00 (six) Medical hours as Branch needed for Wheezing or Shortness of Breath. albuterol 2020-09 Yes [id number] 2.5mg Inhale 3 [facility] 2.5 mg /3 2-30 mL every 4 ity of mL (0.083 00:00: (four) [place] %) 00 hours as Medical nebulizer needed for Bran ch solution Wheezing or Shortness of Breath. albuterol 2020-09 Yes [id number] 2{puff} Inhale 2 [facility] 90 2-30 Puffs ity of mcg/actuati 00:00: every 6 [facility] as on inhaler 00 (six) Medical hours as Branch needed for Wheezing or Shortness of Breath. albuterol 2020-09 Yes [id number] 2.5mg Inhale 3 [facility] 2.5 mg /3 2-30 mL every 4 ity of mL (0.083 00:00: (four) [place] %) 00 hours as Medical nebulizer needed for Bran ch solution Wheezing or Shortness of Breath. albuterol 2020-09 Yes [id number] 2{puff} Inhale 2 [facility] 90 2-30 Puffs ity of mcg/actuati 00:00: every 6 [facility] as on inhaler 00 (six) Medical hours as Branch needed for Wheezing or Shortness of Breath. albuterol 2020-09 Yes [id number] 2.5mg Inhale 3 [facility] 2.5 mg /3 2-30 mL every 4 ity of mL (0.083 00:00: (four) [place] %) 00 hours as Medical nebulizer needed for Bran ch solution Wheezing or Shortness of Breath. albuterol 2020-09 Yes [id number] 2{puff} Inhale 2 [facility] 90 2-30 Puffs ity of mcg/actuati 00:00: every 6 [facility] as on inhaler 00 (six) Medical hours as Branch needed for Wheezing or Shortness of Breath. albuterol 2020-09 Yes [id number] 2.5mg Inhale 3 [facility] 2.5 mg /3 2-30 mL every 4 ity of mL (0.083 00:00: (four) [place] %) 00 hours as Medical nebulizer needed for Bran ch solution Wheezing or Shortness of Breath. albuterol 2020-09 Yes [id number] 2{puff} Inhale 2 [facility] 90 2-30 Puffs ity of mcg/actuati 00:00: every 6 [facility] as on inhaler 00 (six) Medical hours as Branch needed for Wheezing or Shortness of Breath. albuterol 2020-09 Yes [id number] 2.5mg Inhale 3 [facility] 2.5 mg /3 2-30 mL every 4 ity of mL (0.083 00:00: (four) [place] %) 00 hours as Medical nebulizer needed for Bran ch solution Wheezing or Shortness of Breath. albuterol 2020-09 Yes [id number] 2{puff} Inhale 2 [facility] 90 2-30 Puffs ity of mcg/actuati 00:00: every 6 [facility] as on inhaler 00 (six) Medical hours as Branch needed for Wheezing or Shortness of Breath. albuterol 2020-09 Yes [id number] 2.5mg Inhale 3 [facility] 2.5 mg /3 2-30 mL every 4 ity of mL (0.083 00:00: (four) [place] %) 00 hours as Medical nebulizer needed for Bran ch solution Wheezing or Shortness of Breath. albuterol 2020-09 Yes [id number] 2{puff} Inhale 2 [facility] 90 2-30 Puffs ity of mcg/actuati 00:00: every 6 [facility] as on inhaler 00 (six) Medical hours as Branch needed for Wheezing or Shortness of Breath. albuterol 2020-09 Yes [id number] 2.5mg Inhale 3 [facility] 2.5 mg /3 2-30 mL every 4 ity of mL (0.083 00:00: (four) [place] %) 00 hours as Medical nebulizer needed for Bran ch solution Wheezing or Shortness of Breath. albuterol 2020-09 Yes [id number] 2{puff} Inhale 2 [facility] 90 2-30 Puffs ity of mcg/actuati 00:00: every 6 [facility] as on inhaler 00 (six) Medical hours as Branch needed for Wheezing or Shortness of Breath. albuterol 2020-09 Yes [id number] 2.5mg Inhale 3 [facility] 2.5 mg /3 2-30 mL every 4 ity of mL (0.083 00:00: (four) [place] %) 00 hours as Medical nebulizer needed for Bran ch solution Wheezing or Shortness of Breath. albuterol 2020-09 Yes [id number] 2{puff} Inhale 2 [facility] 90 2-30 Puffs ity of mcg/actuati 00:00: every 6 [facility] as on inhaler 00 (six) Medical hours as Branch needed for Wheezing or Shortness of Breath. albuterol 2020-09 Yes [id number] 2.5mg Inhale 3 [facility] 2.5 mg /3 2-30 mL every 4 ity of mL (0.083 00:00: (four) [place] %) 00 hours as Medical nebulizer needed for Bran ch solution Wheezing or Shortness of Breath. albuterol 2020-09 Yes [id number] 2{puff} Inhale 2 [facility] 90 2-30 Puffs ity of mcg/actuati 00:00: every 6 [facility] as on inhaler 00 (six) Medical hours as Branch needed for Wheezing or Shortness of Breath. albuterol 2020-09 Yes [id number] 2.5mg Inhale 3 [facility] 2.5 mg /3 2-30 mL every 4 ity of mL (0.083 00:00: (four) [place] %) 00 hours as Medical nebulizer needed for Bran ch solution Wheezing or Shortness of Breath. albuterol 2020-09 Yes [id number] 2{puff} Inhale 2 [facility] 90 2-30 Puffs ity of mcg/actuati 00:00: every 6 [facility] as on inhaler 00 (six) Medical hours as Branch needed for Wheezing or Shortness of Breath. albuterol 2020-09 Yes [id number] 2.5mg Inhale 3 [facility] 2.5 mg /3 2-30 mL every 4 ity of mL (0.083 00:00: (four) [place] %) 00 hours as Medical nebulizer needed for Bran ch solution Wheezing or Shortness of Breath. albuterol 2020-09 Yes [id number] 2{puff} Inhale 2 [facility] 90 2-30 Puffs ity of mcg/actuati 00:00: every 6 [facility] as on inhaler 00 (six) Medical hours as Branch needed for Wheezing or Shortness of Breath. albuterol 2020-09 Yes [id number] 2.5mg Inhale 3 [facility] 2.5 mg /3 2-30 mL every 4 ity of mL (0.083 00:00: (four) [place] %) 00 hours as Medical nebulizer needed for Bran ch solution Wheezing or Shortness of Breath. albuterol 2020-09 Yes [id number] 2{puff} Inhale 2 [facility] 90 2-30 Puffs ity of mcg/actuati 00:00: every 6 [facility] as on inhaler 00 (six) Medical hours as Branch needed for Wheezing or Shortness of Breath. albuterol 2020-09 Yes [id number] 2.5mg Inhale 3 [facility] 2.5 mg /3 2-30 mL every 4 ity of mL (0.083 00:00: (four) [place] %) 00 hours as Medical nebulizer needed for Bran ch solution Wheezing or Shortness of Breath. albuterol 2020-09 Yes [id number] 2{puff} Inhale 2 [facility] 90 2-30 Puffs ity of mcg/actuati 00:00: every 6 [facility] as on inhaler 00 (six) Medical hours as Branch needed for Wheezing or Shortness of Breath. albuterol 2020-09 Yes [id number] 2.5mg Inhale 3 [facility] 2.5 mg /3 2-30 mL every 4 ity of mL (0.083 00:00: (four) [place] %) 00 hours as Medical nebulizer needed for Bran ch solution Wheezing or Shortness of Breath. albuterol 2020-09 Yes [id number] 2{puff} Inhale 2 [facility] 90 2-30 Puffs ity of mcg/actuati 00:00: every 6 [place] as on inhaler 00 (six) Medical hours as Branch needed for Wheezing or Shortness of Breath. albuterol 2020-09 Yes [id number] 2.5mg Inhale 3 [facility] 2.5 mg /3 2-30 mL every 4 ity of mL (0.083 00:00: (four) [place] %) 00 hours as Medical nebulizer needed for Bran ch solution Wheezing or Shortness of Breath. albuterol 2020-09 Yes [id number] 2{puff} Inhale 2 [facility] 90 2-30 Puffs ity of mcg/actuati 00:00: every 6 [place] as on inhaler 00 (six) Medical hours as Branch needed for Wheezing or Shortness of Breath. albuterol 2020-09 Yes [id number] 2.5mg Inhale 3 [facility] 2.5 mg /3 2-30 mL every 4 ity of mL (0.083 00:00: (four) [place] %) 00 hours as Medical nebulizer needed for Bran ch solution Wheezing or Shortness of Breath. albuterol 2020-09 Yes [id number] 2{puff} Inhale 2 [facility] 90 2-30 Puffs ity of mcg/actuati 00:00: every 6 [place] as on inhaler 00 (six) Medical hours as Branch needed for Wheezing or Shortness of Breath. fluticasone 2020-09- No [id number] 1{puff} Inhale 1 [facility] furoate-anu 2-30 02-15 Puff ity of anteroL 00:00: 00:00 daily. [place] (BREO 00 :00 Medical ELLIPTA) Branch 100-25 mcg/dose DsDv oxybutynin Yes [id number] 10mg Take 1 U nivers 10 mg 24 hr 8-17 tablet by ity of tablet 00:00: mouth [place] 00 daily. Medical Branch oxybutynin Yes [id number] 10mg Take 1 U nivers 10 mg 24 hr 8-17 tablet by ity of tablet 00:00: mouth [place] 00 daily. [facility] oxybutynin Yes [id number] 10mg Take 1 U nivers 10 mg 24 hr 8-17 tablet by ity of tablet 00:00: mouth [place] 00 daily. [facility] oxybutynin Yes [id number] 10mg Take 1 U nivers 10 mg 24 hr 8-17 tablet by ity of tablet 00:00: mouth [place] 00 daily. [facility] oxybutynin Yes [id number] 10mg Take 1 U nivers 10 mg 24 hr 8-17 tablet by ity of tablet 00:00: mouth [place] 00 daily. [facility] oxybutynin Yes [id number] 10mg Take 1 U nivers 10 mg 24 hr 8-17 tablet by ity of tablet 00:00: mouth [place] 00 daily. [facility] oxybutynin Yes [id number] 10mg Take 1 U nivers 10 mg 24 hr 8-17 tablet by ity of tablet 00:00: mouth [place] 00 daily. [facility] oxybutynin 1-0 Yes [id number] 10mg Take 1 U nivers 10 mg 24 hr 8-17 tablet by ity of tablet 00:00: mouth [place] 00 daily. [facility] oxybutynin 2020-0 Yes [id number] 10mg Take 1 U nivers 10 mg 24 hr 8-17 tablet by ity of tablet 00:00: mouth [place] 00 daily. [facility] oxybutynin 2020-0 Yes [id number] 10mg Take 1 U nivers 10 mg 24 hr 8-17 tablet by ity of tablet 00:00: mouth [place] 00 daily. [facility] oxybutynin 2020-0 Yes [id number] 10mg Take 1 U nivers 10 mg 24 hr 8-17 tablet by ity of tablet 00:00: mouth [place] 00 daily. [facility] oxybutynin 2020-0 Yes [id number] 10mg Take 1 U nivers 10 mg 24 hr 8-17 tablet by ity of tablet 00:00: mouth [place] 00 daily. [facility] oxybutynin 2020-0 Yes [id number] 10mg Take 1 U nivers 10 mg 24 hr 8-17 tablet by ity of tablet 00:00: mouth [place] 00 daily. [facility] oxybutynin 2020-0 Yes [id number] 10mg Take 1 U nivers 10 mg 24 hr 8-17 tablet by ity of tablet 00:00: mouth [place] 00 daily. [facility] oxybutynin 2020-0 Yes [id number] 10mg Take 1 U nivers 10 mg 24 hr 8-17 tablet by ity of tablet 00:00: mouth [place] 00 daily. [facility] oxybutynin 2020-0 Yes [id number] 10mg Take 1 U nivers 10 mg 24 hr 8-17 tablet by ity of tablet 00:00: mouth [place] 00 daily. [facility] oxybutynin 2020-0 Yes [id number] 10mg Take 1 U nivers 10 mg 24 hr 8-17 tablet by ity of tablet 00:00: mouth [place] 00 daily. [facility] oxybutynin 2020-0 Yes [id number] 10mg Take 1 U nivers 10 mg 24 hr 8-17 tablet by [facility] tablet 00:00: mouth [place] 00 daily. [facility] oxybutynin 2020-0 Yes [id number] 10mg Take 1 [facility] nivers 10 mg 24 hr 8-17 tablet by [facility] tablet 00:00: mouth [place] 00 daily. [facility] oxybutynin 2020-0 Yes [id number] 10mg Take 1 U nivers 10 mg 24 hr 8-17 tablet by [facility] tablet 00:00: mouth [place] 00 daily. [facility] oxybutynin 2020-0 Yes [id number] 10mg Take 1 U nivers 10 mg 24 hr 8-17 tablet by [facility] tablet 00:00: mouth [place] 00 daily. [facility] oxybutynin 2020-0 Yes [id number] 10mg Take 1 U nivers 10 mg 24 hr 8-17 tablet by ity of tablet 00:00: mouth [place] 00 daily. [facility] oxybutynin 2020-0 Yes [id number] 10mg Take 1 U nivers 10 mg 24 hr 8-17 tablet by ity of tablet 00:00: mouth [place] 00 daily. [facility] oxybutynin 2020-0 Yes [id number] 10mg Take 1 U nivers 10 mg 24 hr 8-17 tablet by ity of tablet 00:00: mouth [place] 00 daily. [facility] oxybutynin 2020-0 Yes [id number] 10mg Take 1 U nivers 10 mg 24 hr 8-17 tablet by ity of tablet 00:00: mouth [place] 00 daily. [facility] oxybutynin 2020-0 Yes [id number] 10mg Take 1 U nivers 10 mg 24 hr 8-17 tablet by ity of tablet 00:00: mouth [place] 00 daily. [facility] oxybutynin 2020-0 Yes [id number] 10mg Take 1 U nivers 10 mg 24 hr 8-17 tablet by ity of tablet 00:00: mouth [place] 00 daily. [facility] oxybutynin 2020-0 Yes [id number] 10mg Take 1 U nivers 10 mg 24 hr 8-17 tablet by ity of tablet 00:00: mouth [place] 00 daily. [facility] oxybutynin 2020-0 Yes [id number] 10mg Take 1 U nivers 10 mg 24 hr 8-17 tablet by ity of tablet 00:00: mouth [place] 00 daily. [facility] oxybutynin 2020-0 Yes [id number] 10mg Take 1 U nivers 10 mg 24 hr 8-17 tablet by ity of tablet 00:00: mouth [place] 00 daily. [facility] oxybutynin 2020-0 Yes [id number] 10mg Take 1 U nivers 10 mg 24 hr 8-17 tablet by ity of tablet 00:00: mouth [place] 00 daily. [facility] oxybutynin 2020-0 Yes [id number] 10mg Take 1 U nivers 10 mg 24 hr 8-17 tablet by ity of tablet 00:00: mouth [place] 00 daily. [facility] oxybutynin 2020-0 Yes [id number] 10mg Take 1 U nivers 10 mg 24 hr 8-17 tablet by ity of tablet 00:00: mouth [place] 00 daily. [facility] oxybutynin 2020-0 Yes [id number] 10mg Take 1 U nivers 10 mg 24 hr 8-17 tablet by ity of tablet 00:00: mouth [place] 00 daily. [facility] oxybutynin 2020-0 Yes [id number] 10mg Take 1 U nivers 10 mg 24 hr 8-17 tablet by ity of tablet 00:00: mouth [place] 00 daily. [facility] oxybutynin 2020-0 Yes [id number] 10mg Take 1 U nivers 10 mg 24 hr 8-17 tablet by ity of tablet 00:00: mouth [place] 00 daily. [facility] oxybutynin 2020-0 Yes [id number] 10mg Take 1 U nivers 10 mg 24 hr 8-17 tablet by ity of tablet 00:00: mouth [place] 00 daily. [facility] oxybutynin 2020-0 Yes [id number] 10mg Take 1 U nivers 10 mg 24 hr 8-17 tablet by ity of tablet 00:00: mouth [place] 00 daily. [facility] oxybutynin 2020-0 Yes [id number] 10mg Take 1 U nivers 10 mg 24 hr 8-17 tablet by ity of tablet 00:00: mouth [place] 00 daily. [facility] oxybutynin 2020-0 Yes [id number] 10mg Take 1 U nivers 10 mg 24 hr 8-17 tablet by ity of tablet 00:00: mouth [place] 00 daily. [facility] oxybutynin 2020-0 Yes [id number] 10mg Take 1 U nivers 10 mg 24 hr 8-17 tablet by ity of tablet 00:00: mouth [place] 00 daily. [facility] oxybutynin 2021-0 Yes [id number] 10mg Take 1 U nivers 10 mg 24 hr 8-17 tablet by ity of tablet 00:00: mouth [place] 00 daily. [facility] oxybutynin 2020-0 Yes [id number] 10mg Take 1 U nivers 10 mg 24 hr 8-17 tablet by ity of tablet 00:00: mouth [place] 00 daily. [facility] oxybutynin 2020-0 Yes [id number] 10mg Take 1 U nivers 10 mg 24 hr 8-17 tablet by ity of tablet 00:00: mouth [place] 00 daily. [facility] oxybutynin 2020-0 Yes [id number] 10mg Take 1 U nivers 10 mg 24 hr 8-17 tablet by ity of tablet 00:00: mouth [place] 00 daily. [facility] oxybutynin 2020-0 Yes [id number] 10mg Take 1 U nivers 10 mg 24 hr 8-17 tablet by ity of tablet 00:00: mouth [place] 00 daily. [facility] oxybutynin 2020-0 Yes [id number] 10mg Take 1 U nivers 10 mg 24 hr 8-17 tablet by ity of tablet 00:00: mouth [place] 00 daily. [facility] oxybutynin 2020-0 Yes [id number] 10mg Take 1 U nivers 10 mg 24 hr 8-17 tablet by ity of tablet 00:00: mouth [place] 00 daily. [facility] oxybutynin 2020-0 Yes [id number] 10mg Take 1 U nivers 10 mg 24 hr 8-17 tablet by ity of tablet 00:00: mouth [place] 00 daily. [facility] oxybutynin 2020-0 Yes [id number] 10mg Take 1 U nivers 10 mg 24 hr 8-17 tablet by ity of tablet 00:00: mouth [place] 00 daily. [facility] oxybutynin 2020-0 Yes [id number] 10mg Take 1 U nivers 10 mg 24 hr 8-17 tablet by ity of tablet 00:00: mouth [place] 00 daily. [facility] oxybutynin 2020-0 Yes [id number] 10mg Take 1 U nivers 10 mg 24 hr 8-17 tablet by ity of tablet 00:00: mouth [place] 00 daily. [facility] oxybutynin 2020-0 Yes [id number] 10mg Take 1 U nivers 10 mg 24 hr 8-17 tablet by ity of tablet 00:00: mouth [place] 00 daily. [facility] oxybutynin 2020-0 Yes [id number] 10mg Take 1 U nivers 10 mg 24 hr 8-17 tablet by ity of tablet 00:00: mouth [place] 00 daily. [facility] oxybutynin 2020-0 Yes [id number] 10mg Take 1 U nivers 10 mg 24 hr 8-17 tablet by ity of tablet 00:00: mouth [place] 00 daily. [facility] oxybutynin 2020-0 Yes [id number] 10mg Take 1 U nivers 10 mg 24 hr 8-17 tablet by ity of tablet 00:00: mouth [place] 00 daily. [facility] oxybutynin 2020-0 Yes [id number] 10mg Take 1 U nivers 10 mg 24 hr 8-17 tablet by ity of tablet 00:00: mouth [place] 00 daily. [facility] oxybutynin 2020-0 Yes [id number] 10mg Take 1 U nivers 10 mg 24 hr 8-17 tablet by ity of tablet 00:00: mouth [place] 00 daily. [facility] oxybutynin 2020-0 Yes [id number] 10mg Take 1 U nivers 10 mg 24 hr 8-17 tablet by ity of tablet 00:00: mouth [place] 00 daily. [facility] oxybutynin 0 Yes [id number] 10mg Take 1 U nivers 10 mg 24 hr 8-17 tablet by ity of tablet 00:00: mouth [place] 00 daily. [facility] oxybutynin 2020-0 Yes [id number] 10mg Take 1 U nivers 10 mg 24 hr 8-17 tablet by ity of tablet 00:00: mouth [place] 00 daily. [facility] oxybutynin 2020-0 Yes [id number] 10mg Take 1 U nivers 10 mg 24 hr 8-17 tablet by ity of tablet 00:00: mouth [place] 00 daily. [facility] oxybutynin 2020-0 Yes [id number] 10mg Take 1 U nivers 10 mg 24 hr 8-17 tablet by ity of tablet 00:00: mouth [place] 00 daily. [facility] oxybutynin 2020-0 Yes [id number] 10mg Take 1 U nivers 10 mg 24 hr 8-17 tablet by ity of tablet 00:00: mouth [place] 00 daily. [facility] meloxicam 2020-0 Yes [id number] 7.5mg Take 1 Univers (MOBIC) 7.5 8-02 tablet by ity of mg tablet 00:00: mouth [place] 00 daily. [facility] meloxicam Yes [id number] 7.5mg Take 1 Univers (MOBIC) 7.5 8-02 tablet by ity of mg tablet 00:00: mouth [place] 00 daily. [facility] meloxicam 2021- No [id number] 7.5mg Take 1 Univers (MOBIC) 7.5 8-10 20- tablet by it y of mg tablet 00:00: 00:00 mouth [place] 00 :00 daily. [facility] HYDROCHLORO 2021- No [id number] TAKE 1 Univers THIAZIDE 04-16- CAPSULE BY ity of 12.5 mg 00:00: [...] MG 17:56: every Medical tablet 18 evening. [place] acetaminoph Yes 1{tbl} Take [address] en-codeine 1-10 tablet by Alex barnes (TYLENOL 17:56: mouth Medical #4) 300-60 18 every 4 Center mg per (four) tablet hours as needed for Pain. tiotropium Yes 18ug QD Inhale [address] bromide 2.5 1-10 mcg by Freddy mcg/actuati 17:56: mouth via Amanda anderson on Mist 18 inhaler Center daily. Missing or Yes 1.3% Apply 1.[address] Non-Formula 1-10 % Lisandrakes ry 17:56: topically Medical Medication 18 every [...] Medica l 10 MG 18 Center tablet escitalopra 2019-0 Yes 20mg QD Take [address] [facility] oxalate 1-10 by [facility] (LEXAPRO) 17:56: daily. Medica l 10 MG 18 Center tablet cyclobenzap 20190 Yes 10mg Take [address] [facility] rine 1-10 by mouth [facility] (FLEXERIL) 17:56: (three) Medi zan 10 MG 18 times Center tablet daily as needed for Muscle spasms. omeprazole 0 Yes 20mg QD Take 20 mg C [...] tablet hours as needed for Pain. tiotropium 0 Yes 18ug QD Inhale [address] bromide 2.5 1-10 mcg by Freddy mcg/actuati 17:56: mouth via M edical on Mist 18 inhaler Center daily. Missing or 2018- Yes 1.3% Apply 1.[address] [...] 18 night as Center needed for Insomnia. cyclobenzap 2018 Yes 10mg Take [address] [facility] [...] every Medical tablet 18 evening. Center acetaminoph 20190 Yes 1{tbl} Take [address] en-codeine 1-10 tablet by Alex s (TYLENOL 17:56: mouth Medical #4) 300-60 18 every 4 Center mg per (four) tablet hours as needed for Pain. tiotropium 0 Yes 18ug QD Inhale [address] bromide 2.5 1-10 mcg by Lisandrakes mcg/actuati 17:56: mouth via M edical on [...] every Medical tablet 18 evening. Center acetaminoph 20190 Yes 1{tbl} Take [address] en-codeine 1-10 tablet by Luravinder s (TYLENOL 17:56: mouth Medical #4) 300-60 18 every 4 Center mg per (four) tablet hours as needed for Pain. tiotropium 0 Yes 18ug QD Inhale 18 [facility] I [...] night as Center needed for Insomnia. escitalopra 2019 Yes 20mg QD Take [address] [facility] oxalate 1-10 by [facility] (LEXAPRO) 17:56: daily. Medica l 10 MG 18 Center tablet cyclobenzap Yes 10mg Take [address] [facility] [address] rine 1-10 by mouth 3 [facility] (FLEXERIL) 17:56: (three) Medi zan 10 MG 18 times Center tablet daily as needed for Muscle spasms. Vital Signs Vital Name Observation Time Observation Value Comments Source Systolic blood 2023-05-03 14:56:00 136 mm[Hg] Univer sity of pressure [facility] Diastolic blood 2023-05-03 14:56:00 84 [facility]Hg[facility]-03 14:56:00 61 /min [facility] [place] [facility] Respiratory rate 2023-05-03 14:56:00 18 /min Univ ers[facility] [place] [facility] Body height 2023-05-03 14:56:00 152.4 cm [facility] [place] [facility] Body weight 2023-05-03 14:56:00 53.479 kg [facility] [place] [facility] BMI 2023-05-03 14:56:00 23.03 kg/m2 [facility] [place] [facility] Oxygen saturation in 2023-05-03 14:56:00 97 /min University of Arterial blood by [place] Medi zan Pulse oximetry Branch Systolic blood 2023-03-16 14:19:00 124 mm[Hg] Univer sity of pressure [place] [facility] Diastolic blood 2023-03-16 14:19:00 74 mm[Hg] Unive rsity of pressure [place] [facility] Heart rate 2023-03-16 14:19:00 55 /min [facility] [place] [facility] Body height 2023-03-16 14:19:00 152.4 cm [facility] [place] [facility] Body weight 2023-03-16 14:19:00 55.248 kg [facility] [place] [facility] BMI 2023-03-16 14:19:00 23.79 kg/m2 [facility] [place] [facility] Oxygen saturation in 2023-03-16 14:19:00 96 /min [facility] Arterial blood by [place] [facility] Pulse oximetry Branch Systolic blood 2023-02-24 06:00:00 111 mm[Hg] Univer sity of pressure [place] [facility] Diastolic blood 2023-02-24 06:00:00 83 mm[Hg] Unive rsity of pressure [place] [facility] Heart rate 2023-02-24 06:00:00 97 /min [facility] [place] [facility] Oxygen saturation in 2023-02-24 06:00:00 94 /min [facility] Arterial blood by [place] [facility] Pulse oximetry Branch Body temperature 2023-02-24 03:00:00 38.33 Eliana [facility] [place] [facility] Respiratory rate 2023-02-24 03:00:00 19 /min [facility] [place] [facility] Body height 2023-02-23 22:21:00 162.6 cm [facility] [place] [facility] Body weight 2023-02-23 22:21:00 55.792 kg [facility] [place] [facility] BMI 2023-02-23 22:21:00 21.11 kg/m2 Universi ty of [facility] Systolic blood 2023-02-23 21:04:00 120 mm[Hg] Univer sity of pressure [place] [facility] Diastolic blood 2023-02-23 21:04:00 74 mm[Hg] Unive rsity of pressure [place] [facility] Heart rate 2023-02-23 21:04:00 133 /min [facility] [place] [facility] Body temperature 2023-02-23 21:04:00 37.5 Eliana Univ ersity of [facility] Body height 2023-02-23 21:04:00 152.4 cm Universi ty of [facility] Systolic blood 2023-02-13 14:50:00 132 mm[Hg] Univer sity of pressure [place] [facility] Diastolic blood 2023-02-13 14:50:00 88 mm[Hg] Unive rsity of pressure [facility] Heart rate 2023-02-13 14:49:00 67 /min [facility] [place] [facility] Respiratory rate 2023-02-13 14:49:00 18 /min Univ ersity of [facility] Body height 2023-02-13 14:49:00 157.5 cm [facility] [place] [facility] Body weight 2023-02-13 14:49:00 55.838 kg [facility] [place] [facility] BMI 2023-02-13 14:49:00 22.52 kg/m2 Universi ty of [facility] Oxygen saturation in 2023-02-13 14:49:00 97 /min University Arterial blood by [facility] Pulse oximetry Branch Systolic blood 2022-12-09 18:45:00 149 mm[Hg] Univer sity of pressure [facility] Diastolic blood 2022-12-09 18:45:00 83 mm[Hg] Unive rsity of pressure [place] [facility] Heart rate 2022-12-09 18:45:00 65 /min [facility] [place] [facility] Body temperature 2022-12-09 18:45:00 36.33 Eliana Univ ersity of [facility] Respiratory rate 2022-12-09 18:45:00 18 /min Univ ersity of [place] [facility] Body weight 2022-12-09 18:45:00 54.658 kg [facility] [place] [facility] BMI 2022-12-09 18:45:00 23.53 kg/m2 [facility] [place] [facility] Oxygen saturation in 2022-12-09 18:45:00 96 /min [facility] Arterial blood by [place] [facility] Pulse oximetry Branch Systolic blood 2022-11-24 16:59:00 133 mm[Hg] Univer sity of pressure [place] [facility] Diastolic blood 2022-11-24 16:59:00 85 mm[Hg] Unive rsity of pressure [place] [facility] Heart rate 2022-11-24 16:59:00 85 /min [facility] [place] [facility] Body weight 2022-11-24 16:59:00 56.79 kg [facility] [place] [facility] BMI 2022-11-24 16:59:00 24.45 kg/m2 [facility] [place] [facility] Oxygen saturation in 2022-11-24 16:59:00 91 /min University of Arterial blood by [facility] Pulse oximetry Branch Systolic blood 2022-10-24 16:25:00 120 mm[Hg] Univer sity of pressure [place] [facility] Diastolic blood 2022-10-24 16:25:00 75 mm[Hg] Unive rsity of pressure [place] [facility] Heart rate 2022-10-24 16:25:00 66 /min [facility] [place] [facility] Body temperature 2022-10-24 16:25:00 36 Eliana [facility] [place] [facility] Respiratory rate 2022-10-24 16:25:00 18 /min Univ [facility] [place] [facility] Body weight 2022-10-24 16:25:00 58.287 kg [facility] [place] [facility] BMI 2022-10-24 16:25:00 25.10 kg/m2 [facility] [place] [facility] Oxygen saturation in 2022-10-24 16:25:00 94 /min University of Arterial blood by [facility] Pulse oximetry Branch Systolic blood 2022-10-10 17:11:00 110 mm[Hg] Univer sity of pressure [place] [facility] Diastolic blood 2022-10-10 17:11:00 86 mm[Hg] Unive rsity of pressure [place] [facility] Heart rate 2022-10-10 17:11:00 73 /min [facility] [place] [facility] Body temperature 2022-10-10 17:11:00 36.11 Eliana [facility] [place] [facility] Respiratory rate 2022-10-10 17:11:00 18 /min [facility] [place] [facility] Body weight 2022-10-10 17:11:00 58.695 kg [facility] [place] [facility] BMI 2022-10-10 17:11:00 25.27 kg/m2 [facility] [place] [facility] Oxygen saturation in 2022-10-10 17:11:00 94 /min University of Arterial blood by [facility] Pulse oximetry Branch Systolic blood 2022-10-07 17:41:00 118 mm[Hg] Univer sity of pressure [place] [facility] Diastolic blood 2022-10-07 17:41:00 65 mm[Hg] Unive rsity of pressure [place] [facility] Heart rate 2022-10-07 17:41:00 86 /min [facility] [place] [facility] Body weight 2022-10-07 17:41:00 60.283 kg [facility] [place] [facility] BMI 2022-10-07 17:41:00 25.96 kg/m2 [facility] [place] [facility] Oxygen saturation in 2022-10-07 17:41:00 91 /min University of Arterial blood by [facility] Pulse oximetry Branch Systolic blood 2022-10-06 20:35:00 101 mm[Hg] Univer sity of pressure [place] [facility] Diastolic blood 2022-10-06 20:35:00 66 mm[Hg] Unive rsity of pressure [place] [facility] Heart rate 2022-10-06 20:35:00 90 /min [facility] [place] [facility] Oxygen saturation in 2022-10-06 20:35:00 95 /min University of Arterial blood by [facility] Pulse oximetry Branch Respiratory rate 2022-10-06 20:15:00 14 /min Univ [facility] [place] [facility] Body temperature 2022-10-06 17:22:00 36.89 Eliana [facility] [place] [facility] Body height 2022-10-06 11:29:00 152.4 cm [facility] [place] [facility] Body weight 2022-10-06 11:29:00 57.607 kg [facility] [place] [facility] BMI 2022-10-06 11:29:00 24.80 kg/m2 [facility] [place] [facility] Systolic blood 2022-10-06 18:00:00 114 mm[Hg] Univer sity of pressure [place] [facility] Diastolic blood 2022-10-06 18:00:00 68 mm[Hg] Unive rsity of pressure [place] [facility] Heart rate 2022-10-06 18:00:00 92 /min [facility] [place] [facility] Respiratory rate 2022-10-06 18:00:00 13 /min Univ [facility] [place] [facility] Oxygen saturation in 2022-10-06 18:00:00 92 /min University of Arterial blood by [place] [facility] Pulse oximetry Branch Body temperature 2022-10-06 17:22:00 36.89 Eliana [facility] [place] [facility] Body height 2022-10-06 11:29:00 152.4 cm [facility] [place] [facility] Body weight 2022-10-06 11:29:00 57.607 kg [facility] [place] [facility] BMI 2022-10-06 11:29:00 24.80 kg/m2 [facility] [place] [facility] Systolic blood 2022-09-20 17:17:00 130 mm[Hg] Univer sity of pressure [place] [facility] Diastolic blood 2022-09-20 17:17:00 83 mm[Hg] Unive rsity of pressure [place] [facility] Heart rate 2022-09-20 17:17:00 59 /min [facility] [place] [facility] Body temperature 2022-09-20 17:17:00 36.39 Eliana [facility] [place] [facility] Respiratory rate 2022-09-20 17:17:00 16 /min Univ [facility] [place] [facility] Body height 2022-09-20 17:17:00 152.4 [...] 18:04:00 73 mm[Hg] Unive rsity of pressure [place] [facility] Heart rate 2022-08-24 18:04:00 73 /min [facility] [place] [facility] Body height 2022-08-24 18:04:00 152.4 cm [facility] [place] [facility] Body weight 2022-08-24 18:04:00 58.469 kg [facility] [place] [facility] BMI 2022-08-24 18:04:00 25.17 kg/m2 [facility] [place] [facility] Oxygen saturation in 2022-08-24 18:04:00 98 /min University of Arterial blood by [place] Medi zan Pulse oximetry Branch Systolic blood 2022-07-19 19:24:00 123 mm[Hg] Univer sity of pressure [place] [facility] Diastolic blood 2022-07-19 19:24:00 66 mm[Hg] Unive rsity of pressure [place] [facility] Heart rate 2022-07-19 19:24:00 61 /min [facility] [place] [facility] Body temperature 2022-07-19 19:24:00 36.5 Eliana [facility] [place] [facility] Body height 2022-07-19 19:24:00 152.4 cm [facility] [place] [facility] Body weight 2022-07-19 19:24:00 57.267 kg [facility] [place] [facility] BMI 2022-07-19 19:24:00 24.66 kg/m2 [facility] [place] [facility] Systolic blood 2022-06-20 18:36:00 125 mm[Hg] Univer sity of pressure [place] [facility] Diastolic blood 2022-06-20 18:36:00 74 mm[Hg] Unive rsity of pressure [place] [facility] Heart rate 2022-06-20 18:36:00 47 /min [facility] ty [facility] [place] [facility] Body weight 2022-06-20 18:36:00 55.792 kg [facility] [place] [facility] BMI 2022-06-20 18:36:00 24.02 kg/m2 [facility] [place] [facility] Oxygen saturation in 2022-06-20 18:36:00 97 /min [facility] of Arterial blood by [place] Medi zan Pulse oximetry Branch Systolic blood 2022-05-09 15:19:00 128 mm[Hg] Univer sity of pressure [place] [facility] Diastolic blood 2022-05-09 15:19:00 71 mm[Hg] [facility] Heart rate 2022-05-09 15:19:00 52 /min [facility] Body weight 2022-05-09 15:19:00 58.469 kg [facility] BMI 2022-05-09 15:19:00 25.17 kg/m2 [facility] Procedures Procedure Date / Time Performing Clinician Source Performed DEXA AXIAL (HIP AND 2023-05-05 15:17:51 Herman Watkins [facility] SPINE) Medical [place] ASSIGNMENT OF BENEFITS 2023-05-05 14:27:04 [facility] XR HIPS 2 VW LEFT 2023-05-03 15:45:42 Roland [facility] ASSIGNMENT OF BENEFITS 2023-03-16 14:13:24 [facility] [place] [facility] ABDOMEN PELVIS W 2023-02-24 04:46:26 Eleni William [facility] CONTRAST [facility] XR CHEST 1 VW 2023-02-24 04:18:27 Eleni William [facility] URINALYSIS 2023-02-23 23:42:00 Eleni William [facility] RAPID INFLUENZA A/B 2023-02-23 23:05:00 Eleni William [facility] LIPASE 2023-02-23 22:34:00 Eleni William [facility] TROPONIN I 2023-02-23 22:34:00 Eleni William [facility] COMP. METABOLIC PANEL 2023-02-23 22:34:00 Eleni William [facility] ([id number]) [facility] CBC WITH DIFF 2023-02-23 22:34:00 Eleni William [facility] COVID-19 (ID NOW RAPID 2023-02-23 22:34:00 Eleni William [facility] TESTING) Medical Branch REDUCTION MAMMOPLASTY 2022-10-06 13:04:00 [facility] 2022-10-06 10:59:55 Doctor Unassigned, [facility] [place] [facility] PATIENT FINANCIAL 2022-09-21 06:01:00 Doctor Unassigned, [facility] RESPONSIBILITY - ALL [place] [facility] FORMS EXTERNAL PROVIDER RECORDS 2022-06-15 05:01:00 Doctor Unassigned, [facility] [place] [facility] Encounters Start End Encounter Admission Attending Care Care Encounter Source Date/Time Date/Time Type Type Clinicians Facility Department ID 2023-06-03 Preadmit nullFlavo [facility] [id number] Me moria 20:48:37 alex Peng 2023-05-21 2023-05-21 Patient Doctor [facility] 1.2.840.114 [id number] Univers 00:00:00 00:00:00 Secure Msg Unassigned, HEALTH 350.1.13.10 ity of [place] SAMANTHA [id number] Baljeet as STEVIE?BLEA [id number] Va douglas CRESPO [address] [place] MEDICAL OFFICE [facility] 2023-05-05 2023-05-05 [facility] [id number] Univers 09:26:51 23:59:00 HERMAN pito [facility] 2023-05-05 2023-05-05 [facility] 1.2.840.114 [id number] Univers 09:26:51 23:59:00 Encounter Herman SAMANTHA [id number] ity of [place] 4.2.7.[address] [place] [facility] [id number] [address] 2023-05-03 2023-05-03 [facility] 1.2.840.114 [id number] Univers 10:28:29 23:59:00 Encounter Herman HEALTH [id number] ity of [place] 4.2.7.2.686 Baljeet as STEVIE?BLEA [id number] Va douglas CRESPO [address] [place] MEDICAL OFFICE [facility] 2023-05-03 2023-05-03 Out[facility] [id number] Univers 10:00:00 10:25:46 HERMAN sheldon [facility] 2023-05-03 2023-05-[address] [facility] 1.2.840.114 [id number] Univers 10:00:00 10:25:46 Visit [facility] [id number] it y of [place] 4.2.7.2.686 Baljeet as STEVIE?BLEA [id number] [address] OFFICE [facility] 2023-04-10 2023-04-10 Refill HERMINIA [facility] 1.2.840.114 [id number] Univers 00:00:00 00:00:00 Herman SMITH 350.1.13.10 it y of HOSPITAL 4.2.7.2.686 Baljeet as [id number] [address] 2023-04-07 2023-04-[address] [facility] 1.2.840.114 [id number] Univers 00:00:00 00:00:00 Herman HEALTH 350.1.13.10 it y of [place] 4.2.7.2.686 Baljeet as STEVIE?BLEA [id number] [address] OFFICE [facility] 2023-03-16 2023-03-16 Quality Control Assessor Lab, Ang - Db [facility] 1.2.840.1 [id number] Univers 09:45:00 09:55:02 Visit Herman Watkins [facility] [id number] ity of [place] 4.2.7.2.686 Baljeet as STEVIE?BLEA [id number] [facility] [address] [facility] OFFICE [facility] 2023-03-16 2023-03-[address] [facility] 1.2.840.114 [id number] Univers 09:00:00 09:30:00 Visit [facility] 350.1.13.10 it y of [place] 4.2.7.2.686 Baljeet as STEVIE?BLEA [id number] [address] OFFICE [facility] 2023-03-16 2023-03-16 [facility] [id number] Univers 09:00:00 09:00:00 HERMAN ity [facility] 2023-03-16 2023-03-16 Orders Doctor HERMINIA 1.2.840.114 [id number] Univers 00:00:00 00:00:00 Only Unassigned, SARAH 350.1.13.10 ity of [place] [facility] 4.2.7.2.686 Baljeet as [id number] [facility] 009 [place] 2023-03-07 2023-03-07 Outpatient R ELIZABETH [facility] [id number] Univers 14:30:00 14:30:00 YUKI pito [facility] 2023-02-23 2023-02-24 Emergency [facility] 1.2.746.269 [id number] Univers 17:17:00 02:01:00 Eleni Molly [place] 350.1.13.10 i ty [facility] 4.2.[place].2.[place] [id number] [facility] 0[address] [place] 2023-02-23 2023-02-23 [facility] [id number] Univers 16:00:00 17:05:26 YULIANA pito [facility] 2023-02-23 2023-02-[address] [facility] ERT [id number] Univers 16:00:00 17:05:26 YULIANA [facility] 2023-02-23 2023-02-[address] [facility] 1.2.840.114 [id number] Univers 16:00:00 17:05:26 Visit Yuliana A [facility] 350.1.13.10 i ty [facility] 4.2.7.2.686 [place]et [place] STEVIE?BLEA [id number] [address] MEDICAL OFFICE [facility] 2023-02-20 2023-02-[address] [facility] 1.2.079.105 [id number] Univers 00:00:00 00:00:00 Herman HEALTH 350.1.13.10 it y of [place] 4.2.7.2.686 Baljeet as STEVIE?BLEA [phone] [address] MEDICAL OFFICE [facility] 2023-02-13 2023-02-13 [facility] [id number] Univers 09:45:00 11:55:15 [facility] 2023-02-13 2023-02-[address] [facility] 1.2.840.114 [id number] Univers 09:45:00 11:55:15 Visit [facility] 350.1.13.10 it y of [place] 4.2.7.2.686 Baljeet as STEVIE?BLEA [id number] [address] OFFICE [facility] 2023-01-18 2023-01-[address] [facility] 1.2.840.114 [id number] Univers 00:00:00 00:00:00 [facility] 350.1.13.10 it y of [place] 4.2.7.2.686 Baljeet as STEVIE?BLEA [phone] [address] OFFICE [facility] 2023-01-16 2023-01-16 [facility] [id number] Univers 14:00:00 14:00:00 [facility] 2022-12-09 2022-12-09 [facility] [id number] Univers 14:00:00 14:19:15 [facility] 2022-12-09 2022-12-09 Office Javier, [facility] 1.2.551.617 [id number] Univers 14:00:00 14:19:15 Visit [facility] 350.1.13.10 ity of [place].2.686 [place] [id number] [address] [facility] 2022-11-24 2022-11-24 [facility] [id number] Univers 12:00:00 12:20:27 [facility] 2022-11-24 2022-11-[address] [facility] 1.2.840.114 [id number] Univers 12:00:00 12:20:27 Visit [facility] 350.1.13.10 it y of [place] 4.2.7.2.686 Baljeet as STEVIE?BLEA [id number] [address] OFFICE [facility] 2022-10-24 2022-10-24 Outpatient R JAVIER, [facility] [id number] Univers 10:15:00 11:06:14 REGLA ity [facility] 2022-10-24 2022-10-[address] [facility] 1.2.605.342 [id number] Univers 10:15:00 11:06:14 Visit Regla [place] 350.1.13.10 ity of [place].2.7.2.[place] [id number] [address] [facility] 2022-10-22 2022-10-[address] [facility] 1.2.840.114 [id number] Univers 00:00:00 00:00:00 Ben SINGH 350.1.13.10 i ty [facility] 4.2.7.2.[place] [id number] Va dical [address] 2022-10-10 2022-10-10 Outpatient R JAVIER [facility] [id number] Univers 11:00:00 12:08:38 REGLA ity [facility] 2022-10-10 2022-10-[address] [facility] 1.2.875.354 [id number] Univers 11:00:00 12:08:38 Visit Regla [place] 350.1.13.10 ity of [place].7.2.[place] [id number] [address] [facility] 2022-10-07 2022-10-07 Outpatient R JAVIER [facility] [id number] Univers 11:30:00 12:15:14 REGLA ity [facility] 2022-10-07 2022-10-07 Office Javier, [facility] 1.2.500.536 [id number] Univers 11:30:00 12:15:14 Visit Regla [place] 350.1.13.10 ity of [place]2.7.2.[place] [id number] [address] [facility] 2022-10-06 2022-10-06 Outpatient R VIRGILIO [facility] SPL [id number] Univers 04:59:00 14:45:00 ANGIE ity of [facility] 2022-10-06 2022-10-06 Hospital [facility] 1.2.840.114 [id number] Univers 04:59:00 14:45:00 Encounter Angie Pinto HEALTH 350.1.13.10 ity of [place].2.7.2.686 [place] [facility] [id number] [address] ([facility]) 2022-10-06 2022-10-06 Surgery [facility] 1.2.579.339 [id number] Univers 07:05:00 12:07:00 Angie G SPECIALTY 350.1.13.10 ity of C[place] 4.2.7.2.[place] C[place] AT [id number] Va douglas MORRISSEY 020 [facility] 2022-10-06 2022-10-06 Orders Doctor HERMINIA 1.2.840.114 [id number] Univers 00:00:00 00:00:00 Only Unassigned, SARAH 350.1.13.10 ity of [place] [facility] 4.2.7.2.686 Baljeet as [id number] [address] 2022-10-04 2022-10-04 Telephone [facility] 1.2.840.114 10 [id number] Univers 00:00:00 00:00:00 Angie G SPECIALTY 350.1.13.10 ity of C[place] 4.2.7.2.[place] AT [id number] Va deionbekah ENGLISHAmy 201 [facility] 2022-10-03 2022-10-03 Telephone [facility] 1.2.840.114 10 [id number] Univers 00:00:00 00:00:00 Angie G SPECIALTY 350.1.13.10 ity of [place] 4.2.7.2.[place] AT [phone] Va deionbekah CHARTER OAKAmy [address] [place] [address] 2022-10-03 2022-10-03 Telephone HERMINIA Baldwin 1.2.667.309 [id number] [id number] Univers 00:00:00 00:00:00 Natali HOUGHY 350.1.13.10 it y of HOSPITAL 4.2.7.2.686 Baljeet as [phone] [facility] [address] [place] 2022-09-29 2022-09-29 Telephone Sanchez NYRENÉ 1.2.913.611 [id number] Univers 00:00:00 00:00:00 Margarette SPECIALTY 350.1.13.10 ity of [place] CARE 4.2.7.2.[place] AT [phone] Va douglas MORRISSEY [address] [place] [address] 2022-09-26 2022-09-26 Telephone Virgilio [facility] 1.2.840.114 [id number] Univers 00:00:00 00:00:00 Angie G SPECIALTY 350.1.13.10 ity of C[place] 4[place]2.[place].2.[place] C[place] AT [phone] Va deion[address] 2022-09-21 2022-09-21 Orders Doctor HERMINIA 1.2.840.114 [id number] Univers 00:00:00 00:00:00 Only Unassigned, SARAH 350.1.13.10 ity of [place] [facility] 4.2.7.2.686 Baljeet as [id number] [facility] [address] [place] 2022-09-21 2022-09-[address] [facility] 1.2.840.114 [id number] Univers 00:00:00 00:00:00 Angie G SPECIALTY 350.1.13.10 ity of C[place] 4.2.7.2.[place] AT [id number] Va douglas MORRISSEY [address] [place] [address] 2022-09-20 2022-09-20 Outpatient R VIRGILIO [facility] [id number] Univers 11:15:00 11:56:55 ANGIE ity of [facility] 2022-09-20 2022-09-[address] [facility] 1.2.401.941 [id number] Univers 11:15:00 11:56:55 Visit Angie G SPECIALTY 350.1.13.10 ity of C[place] 4.2.7.2.[place] AT [id number] Va douglas MORRISSEY [address] [place] [address] 2022-09-20 2022-09-20 Prep For Sanchez [facility] 1.2.840.114 [id number] Univers 00:00:00 00:00:00 Surgery Margarette SPECIALTY 350.1.13.10 ity of [place] C[place].2.7.2.[place] AT [id number] Va douglas Mae [facility] 2022-09-19 2022-09-[address] [facility] 1.2.867.851 [id number] Univers 00:00:00 00:00:00 [place] HEALTH 350.1.13.10 it y of [place] 4.2.7.2.686 Baljeet as STEVIE?BLEA [phone] [place] douglas CRESPO [address] [place] [address] MEDICAL OFFICE [facility] 2022-09-07 2022-09-[address] [facility] 1.2.840.114 [id number] Univers 00:00:00 00:00:00 [place] HEALTH 350.1.13.10 it y of [place] 4.2.7.2.686 Baljeet as STEVIE?BLEA [phone] [place] douglas CRESPO [address] [place] [address] OFFICE [facility] 2022-08-24 2022-08-24 [facility] [id number] Univers 12:00:00 12:22:07 [facility] 2022-08-24 2022-08-[address] [facility] 1.2.840.114 [id number] Univers 12:00:00 12:22:07 Visit [facility] 350.1.13.10 it y of [place] 4.2.7.2.686 Baljeet as STEVIE?BLEA [phone] [place] douglas CRESPO [address] [place] [address] OFFICE [facility] 2022-08-15 2022-08-15 [facility] 1.2.840.114 [id number] Univers 00:00:00 00:00:00 [place] HEALTH 350.1.13.10 it y of [place] 4.2.7.2.686 Baljeet as STEVIE?BLEA [id number] Va douglas CRESPO [address] [place] [address] OFFICE [facility] 2022-07-19 2022-07-19 Outpatient R VIRGILIO [facility] [id number] Univers 13:00:00 14:48:29 ANGIE amy [facility] 2022-07-19 2022-07-[address] [facility] 1.2.555.729 [id number] Univers 13:00:00 14:48:29 Visit Angie Blair SPECIALTY 350.1.13.10 ity of C[place].2.[place].2.[place] [id number] Va douglas MORRISSEY 201 [facility] 2022-06-20 2022-06-20 Outpatient R ROLAND [facility] [id number] Univers 13:45:00 13:55:51 HERMAN itamy [facility] 2022-06-20 2022-06-[address] [facility] 1.2.840.114 [id number] Univers 13:45:00 13:55:51 Visit Herman [facility] 350.1.13.10 it y of [place] 4.2.7.2.686 Baljeet as STEVIE?BLEA [id number] [address] OFFICE [facility] 2022-06-20 2022-06-[address] [facility] 1.2.840.114 [id number] Univers 00:00:00 00:00:00 Angie Blair SPECIALTY 350.1.13.10 ity [place] C[place]2.[place].2.[place] [id number] Va douglas MORRISSEY 201 [facility] 2022-06-15 2022-06-15 Orders Doctor HERMINIA 1.2.840.114 [id number] Univers 00:00:00 00:00:00 Only Unassigned, SARAH 350.1.13.10 ity of [place] [facility] 4.2.7.2.686 Baljeet as [id number] [address] 2022-05-31 2022-05-[address] [facility] 1.2.840.114 [id number] Univers 00:00:00 00:00:00 Herman [facility] 350.1.13.10 it [facility] 4.2.7.2.686 Baljeet as STEVIE?BLEA [id number] [address] MEDICAL OFFICE [facility] 2022-05-27 2022-05-[address] [facility] 1.2.840.114 [id number] Univers 00:00:00 00:00:00 Angie G SPECIALTY 350.1.13.10 ity of [place].2.[place] [id number] Va douglas MORRISSEY 201 [facility] 2022-05-25 2022-05-[address] [facility] 1.2.117.755 [id number] Univers 00:00:00 00:00:00 [facility] 350.1.13.10 it y of [place] 4.2.7.2.686 Baljeet as STEVIE?BLEA [id number] [address] MEDICAL OFFICE [facility] 2022-05-09 2022-05-09 [facility] [id number] Univers 10:15:00 10:42:15 HERMAN amy [facility] 2022-05-09 2022-05-[address] [facility] 1.2.840.114 [id number] Univers 10:15:00 10:30:00 Visit [facility] 350.1.13.10 it y of [place] 4.2.7.2.686 Baljeet as STEVIE?BLEA [id number] [address] MEDICAL OFFICE [facility] 2022-05-09 2022-05-09 Outpatient R ROLAND [facility] [id number] Univers 10:15:00 10:15:00 HERMAN [facility] 2022-04-08 2022-04-[address] [facility] 1.2.840.114 [id number] Univers 00:00:00 00:00:00 Angie G SPECIALTY 350.1.13.10 it[place]2.[place] [id number] Va douglas MORRISSEY [address] [place] [address] 2022-03-30 2022-03-30 Orders Doctor HERMINIA 1.2.840.114 [id number] Univers 00:00:00 00:00:00 Only Unassigned, SARAH 350.1.13.10 ity of [place] [facility] 4.2.7.2.686 Baljeet as [id number] [address] 2022-03-25 2022-03-[address] [facility] 1.2.840.114 [id number] Univers 00:00:00 00:00:00 Herman HEALTH 350.1.13.10 it y of [place] 4.2.7.2.686 Baljeet as STEVIE?BLEA [id number] Va deion[address] MEDICAL OFFICE [facility] 2022-03-25 2022-03-[address] [facility] 1.2.840.114 [id number] Univers 00:00:00 00:00:00 Angie G SPECIALTY 350.1.13.10 ity of [place].2.[place] AT [id number] Va douglas MORRISSEY [address] [place] [address] 2022-03-23 2022-03-23 Telephone [facility] 1.2.840.114 [id number] Univers 00:00:00 00:00:00 Angie G SPECIALTY 350.1.13.10 ity of [place].2.7.2.[place] AT [id number] Va douglas MORRISSEY [address] [place] [address] 2022-03-15 2022-03-15 [facility] [id number] Univers 15:00:00 16:32:46 ANGIE ity of [facility] 2022-03-15 2022-03-[address] [facility] 1.2.998.916 [id number] Univers 15:00:00 16:32:46 Visit Angie G SPECIALTY 350.1.13.10 ity of C[place] 4.2.7.2.[place] AT [id number] Va douglas MORRISSEY [address] [place] [address] 2022-03-15 2022-03-15 [facility] [id number] Univers 15:00:00 16:32:46 ANGIE ity of [facility] 2022-03-10 2022-03-[address] [facility] 1.2.840.114 [id number] Univers 00:00:00 00:00:00 Herman HEALTH 350.1.13.10 it y of [place] 4.2.7.2.686 Baljeet as STEVIE?BLEA [id number] [address] MEDICAL OFFICE [facility] 2022-03-08 2022-03-08 Outpatient R [facility] [id number] Univers 13:15:00 13:15:00 ANGIE sheldon [facility] 2022-03-06 2022-03-[address] [facility] 1.2.840.114 [id number] Univers 00:00:00 00:00:00 Herman [facility] 350.1.13.10 it y of [place] 4.2.7.2.686 Baljeet as STEVIE?BLEA [id number] Va douglas CRESPO [address] [place] [address] MEDICAL OFFICE BUILDING 2022-02-28 2022-02-28 [facility] [id number] Univers 13:49:26 23:59:00 ANGIE sheldon [facility] 2022-02-28 2022-02-28 Hospital [facility] 1.2.840.114 [id number] Univers 13:49:26 23:59:00 Encounter Angie Blair SINGH 350.1.13.10 ity of [place].2.7.2.[place] [id number] [facility] [address] [place] 2022-02-28 2022-02-28 Hospital [facility] 1.2.840.114 [id number] Univers 10:25:00 13:48:00 Encounter Angie SINGH 350.1.13.10 ity of [place] 4.2.7.2.[place] [id number] [facility] [address] [place] 2022-02-23 2022-02-23 Patient [facility] 1.2.088.488 [id number] Univers 00:00:00 00:00:00 Secure Msg Angie Pinto SPECIALTY 350.1.13.10 ity of C[place] 4.2.7.2.[place] AT [id number] Va douglas MORRISSEY 201 [facility] 2022-02-22 2022-02-22 Quality Control Assessor Vls-Lab [facility] 1.2.840.114 [id number] Univers 14:00:00 14:15:00 Visit Angie Poole SPECIALTY 350.1.13.1 0 ity of [place].2.7.2.[place] AT [id number] Va douglas MORRISSEY 353 [facility] 2022-02-22 2022-02-22 Outpatient Alex POOLE [facility] [id number] Univers 14:00:00 14:00:00 ANGIE pito [facility] 2022-02-22 2022-02-[address] [facility] 1.2.386.220 [id number] Univers 13:00:00 13:48:46 Visit Angie Blair ALAS 350.1.13.10 ity of [place] 4.2.7.2.[place] AT [id number] Va douglas MORRISSEY [address] [place] [address] 2022-02-22 2022-02-22 Outpatient [facility] [id number] Univers 13:00:00 13:48:46 ANGIE sheldon [facility] 2022-02-22 2022-02-22 Outpatient Alex [facility] [id number] Univers 13:00:00 13:48:46 ANGIE sheldon [facility] 2022-02-16 2022-02-[address] [facility] 1.2.840.114 [id number] Univers 14:15:00 14:20:13 Visit Herman SHAFER 350.1.13.10 it y of [place] 4.2.7.2.686 Baljeet as STEVIE?BLEA [phone] [place] douglas CRESPO [address] [place] MEDICAL OFFICE BUILDING 2022-02-16 2022-02-16 Outpatient [facility] [id number] Univers 14:15:00 14:20:13 HERMAN sheldon [facility] 2022-02-16 2022-02-16 Outpatient [facility] [id number] Univers 14:15:00 14:15:00 HERMAN sheldon [facility] 2022-02-16 2022-02-16 Orders Doctor HOPE 1.2.840.114 [id number] Univers 00:00:00 00:00:00 Only Unassigned, SARAH 350.1.13.10 ity of [place] [facility] 4.2.7.2.686 Baljeet as [id number] [address] 2022-01-05 2022-01-05 Orders Doctor HOPE 1.2.840.114 [id number] Univers 00:00:00 00:00:00 Only Unassigned, SARAH 350.1.13.10 ity of [place] [facility] 4.2.7.2.686 Baljeet as [id number] [address] 2022-01-03 2022-01-[address] [facility] 1.2.697.712 [id number] 0221 Univers 00:00:00 00:00:00 Herman HEALTH 350.1.13.10 it y of [place] 4.2.7.2.686 Baljeet as STEVIE?BLEA [id number] [address] MEDICAL OFFICE BUILDING 2021-12-27 2021-12-[address] [facility] 1.2.986.280 [id number] [id number] Univers 00:00:00 00:00:00 Herman HEALTH 350.1.13.10 it y of [place] 4.2.7.2.686 Baljeet as STEVIE?BLEA [id number] [address] OFFICE [facility] 2021-12-25 2021-12-[address] [facility] 1.2.840.114 [id number] Univers 00:00:00 00:00:00 Herman HEALTH 350.1.13.10 it y of [place] 4.2.7.2.686 Baljeet as PROFESSIO [id number] [address] OFFICE BUILDING ONE 2021-12-22 2021-12-[address] [facility] 1.2.609.512 [id number] Univers 00:00:00 00:00:00 Herman HEALTH 350.1.13.10 it y of [place] 4.2.7.2.686 Baljeet as STEVIE?BLEA [phone] [address] OFFICE BUILDING 2021-12-21 2021-12-21 Orders Doctor HERMINIA 1.2.840.114 [id number] Univers 00:00:00 00:00:00 Only Unassigned, SARAH 350.1.13.10 ity of [place] [facility] 4.2.7.2.686 Baljeet as [id number] [address] 2021-12-08 2021-12-08 Orders Doctor HERMINIA 1.2.840.114 [id number] Univers 00:00:00 00:00:00 Only Unassigned, SARAH 350.1.13.10 ity of [place] [facility] 4.2.7.2.686 Baljeet as [id number] [address] 2021-11-30 2021-11-30 Orders Doctor HERMINIA 1.2.840.114 [id number] Univers 00:00:00 00:00:00 Only Unassigned, SARAH 350.1.13.10 ity of [place] [facility] 4.2.7.2.686 Baljeet as [id number] [address] 2021-11-25 2021-11-25 Telephone Roland NYRENÉ 1.2.461.606 [id number] Univers 00:00:00 00:00:00 Herman HEALTH 350.1.13.10 it y of [place] 4.2.7.2.686 Baljeet as STEVIE?BLEA [id number] [address] MEDICAL OFFICE BUILDING 2021-11-09 2021-11-09 Reftammie Watkins NYRENÉ 1.2.840.114 [id number] Univers 00:00:00 00:00:00 Herman HEALTH 350.1.13.10 it y of [place] 4.2.7.2.686 Baljeet as PROFESSIO [phone] [place] [address] [address] OFFICE BUILDING ONE 2021-10-30 2021-10-30 Reftammie Watkins NYRENÉ 1.2.840.114 [id number] Univers 00:00:00 00:00:00 Herman HEALTH 350.1.13.10 it y of [place] 4.2.7.2.686 Baljeet as PROFESSIO [phone] [place] [address] [address] OFFICE BUILDING ONE 2021-10-25 2021-10-25 Reftammie Watkins NYRENÉ 1.2.840.114 [id number] Univers 00:00:00 00:00:00 Herman HEALTH 350.1.13.10 it y of [place] 4.2.7.2.686 Baljeet as PROFESSIO [phone] [address] OFFICE BUILDING ONE 2021-10-04 2021-10-04 Patient Roland NYRENÉ 1.2.840.114 [id number] Univers 00:00:00 00:00:00 Secure Msg [facility] 350.1.13.10 ity of [place] 4.2.7.2.686 Baljeet as STEVIE?BLEA [phone] Va dicbekah CRESPO 044 [facility] OFFICE [facility] 2021-09-15 2021-09-[address] [facility] 1.2.840.114 [id number] Univers 14:00:00 14:44:21 Visit [facility] 350.1.13.10 it y of [place] 4.2.7.2.686 Baljeet as STEVIE?BLEA [phone] [place] [address] 2021-09-15 2021-09-15 Outpatient Alex WATKINS [facility] [id number] Univers 14:00:00 14:44:21 [facility] 2021-09-15 Outpatient Alex WATKINS [facility] [id number] Univers 14:00:00 14:00:00 [facility] 2021-09-15 2021-09-15 Telephone [facility] [id number] Univers 00:00:00 00:00:00 [facility] 350.1.13.10 it y of [place] 4.2.7.2.686 Baljeet as STEVIE?BLEA [phone] [address] 2021-09-09 2021-09-09 Outpatient Alex SHIRLEY [facility] [id number] Univers 14:40:00 14:40:00 ESAU amy [facility] 2021-09-09 2021-09-09 Imm/Inj Nurse, Adc Pob Immunization [facility] 1.2.840.114 [id number] Univers 14:40:00 14:40:00 Visit Esau Shirley 350.1.13 .10 ity of [place] [id number] [place] douglas [address] 2021-09-09 2021-09-09 Outpatient Alex SHIRLEY [facility] [id number] Univers 14:40:00 14:33:08 ESAU ity of [facility] 2021-09-09 2021-09-09 Office Winsome [facility] 1.2.840.114 [id number] Univers 14:00:00 14:30:00 Visit Ben SINGH 350.1.13.10 i ty of [place] [phone] [place] dicid SANTHOSH 085 [facility] 2021-09-09 2021-09-09 Outpatient R BEN BRUSH [facility] [id number] Univers 14:00:00 14:00:00 BEN BRUSH i ty of [facility] 2021-08-19 2021-08-19 Telephone Roland [facility] [id number] Univers 00:00:00 00:00:00 [facility] 350.1.13.10 it y of [place] 4.2.7.2.686 Baljeet as STEVIE?BLEA [phone] [facility] 2021-08-10 2021-08-[address] [facility] 1.2.840.114 [id number] Univers 00:00:00 00:00:00 [facility] 350.1.13.10 it y of [place] 4.2.7.2.686 Baljeet as PROFESSIO [phone] [facility] 044 [facility] ONE 2021-08-09 2021-08-09 Orders Doctor HERMINIA 1.2.840.114 [id number] Univers 00:00:00 00:00:00 Only Unassigned, SARAH 350.1.13.10 ity of [place] [facility] 4.2.7.2.686 Baljeet as [phone] [address] 2021-08-06 2021-08-06 Reftammie Watkins NYRENÉ 1.2.840.114 [id number] Univers 00:00:00 00:00:00 [facility] 350.1.13.10 it y of [place] 4.2.7.2.686 Baljeet as PROFESSIO [phone] [facility] 044 [place] OFFICE [facility] ONE 2021-06-20 2021-06-[address] [facility] 1.2.840.114 [id number] Univers 00:00:00 00:00:00 Shimercedesn Samantha 350.1.13.10 i ty of [place] [phone] [facility] 085 [facility] 2021-05-13 2021-05-[address] [place] [address] [facility] [id number] Univers 00:00:00 00:00:00 [facility] 350.1.13.10 it y of [place] 4.2.7.2.686 Baljeet as Stevie?Blea [phone] [address] Office [facility] 2021-05-11 2021-05-11 [facility] [facility] 1.2.840.114 [id number] Univers 00:00:00 00:00:00 [facility] 350.1.13.10 it y of [place] 4.2.7.2.686 Baljeet as Professio [phone] [address] 2021-05-04 2021-05-04 [facility] 1.2.840.114 [id number] Univers 00:00:00 00:00:00 [facility] 350.1.13.10 it y of [place] 4.2.7.2.686 Baljeet as Professio [phone] [address] 2021-04-30 2021-04-30 Outpatient Alex MERRILL [facility] [id number] Univers 10:30:00 10:30:00 SKIP sheldon [facility] 2021-04-29 2021-04-29 Outpatient Alex MERRILL [facility] [id number] Univers 09:45:00 09:45:00 SKIP sheldon [facility] 2021-04-28 2021-04-28 [facility] 1.2.840.114 [id number] Univers 09:37:11 23:59:00 Encounter Herman Singh 350.1.13.10 ity of [place] [phone] [facility] [address] [place] [address] 2021-04-28 2021-04-28 Hospital [facility] 1.2.840.114 [id number] Univers 09:30:00 09:36:00 Encounter Elias Patel Samatnha 350.1.13.10 ity of [place] [phone] [facility] [address] 2021-04-28 2021-04-28 [facility] [id number] Univers 00:00:00 00:00:00 ELIAS ity [facility] 2021-04-27 2021-04-27 Orders Doctor HERMINIA 1.2.840.114 [id number] Univers 00:00:00 00:00:00 Only Unassigned, SARAH 350.1.13.10 ity of [place] [facility] 4.2.7.2.686 Baljeet as [phone] [facility] [address] 2021-04-27 2021-04-27 Telephone [facility] 1.2.040.319 [id number] Univers 00:00:00 00:00:00 Brandy Nuñez Samantha 350.1.13.10 it[place] of [place] [phone] [place] dical nal [address] [place] [address] 2021-04-26 2021-04-26 Office [facility] 1.2.840.114 [id number] Univers 14:49:46 15:40:00 Visit Brandy Nuñez Sam[place] 350.1.13.10 ity of [place] [phone] [place] dical nal [address] [place] [address] 2021-04-26 2021-04-26 Outpatient R GARETH [facility] [id number] Univers 15:00:00 15:00:00 BRANDY pito [facility] 2021-04-13 2021-04-[address] [facility] 1.2.188.436 [id number] Univers 00:00:00 00:00:00 Herman [facility] 350.1.13.10 it y of [place] 4.2.7.2.686 Baljeet as Professio [phone] [place] dical nal [address] Office [facility] 2021-04-12 2021-04-[address] [facility] 1.2.840.114 [id number] Univers 14:28:30 23:59:00 Encounter Herman Singh 350.1.13.10 ity of [place].7.2.[place] [phone] [facility] [address] 2021-04-12 2021-04-[address] [facility] 1.2.840.114 [id number] Univers 13:27:35 13:42:35 Visit Herman [facility] 350.1.13.10 it y of [place] 4.2.7.2.686 Baljeet as Professio [phone] Va dical nal 044 [facility] 2021-04-12 2021-04-12 [facility] [id number] Univers 13:30:00 13:30:00 HERMAN sheldon of [facility] 2021-04-12 2021-04-12 Orders Doctor HERMINIA 1.2.840.114 [id number] Univers 00:00:00 00:00:00 Only Unassigned, SARAH 350.1.13.10 ity of [place] [facility] 4.2.7.2.686 Baljeet as [phone] [facility] [address] 2021-04-05 2021-04-[address] [facility] 1.2.013.642 [id number] Univers 00:00:00 00:00:00 Herman [facility] 350.1.13.10 it y of [place] 4.2.7.2.686 Baljeet as Professio [phone] Va dical nal [address] Office [facility] 2021-04-02 2021-04-[address] [facility] 1.2.840.114 [id number] Univers 00:00:00 00:00:00 Skip L [facility] 350.1.13.10 it y of Surgical 4.2.7.2.686 Baljeet as Specialti [phone] Va dical es 198 [facility] 2021-04-01 2021-04-[address] [facility] 1.2.840.114 [id number] Univers 00:00:00 00:00:00 [facility] 350.1.13.10 it y of [place] 4.2.7.2.686 Baljeet as Professio [phone] Me dical nal [address] [place] Office [facility] 2021-03-22 2021-03-[address] [facility] 1.2.840.114 [id number] Univers 00:00:00 00:00:00 Skip [facility] 350.1.13.10 it y of Surgical 4.2.7.2.686 Baljeet as Specialti [phone] Me dical es 198 [facility] 2021-03-22 2021-03-22 Orders Doctor HERMINIA 1.2.840.114 [id number] Univers 00:00:00 00:00:00 Only Unassigned, SARAH 350.1.13.10 ity of [place] [facility] 4.2.7.2.686 Baljeet as [phone] [address] 2021-03-18 2021-03-[address] [facility] 1.2.840.114 [id number] Univers 00:00:00 00:00:00 Skip Singh 350.1.13.10 i [place] of [place] [phone] Va dical nal 198 [facility] 2021-03-16 2021-03-16 Telephone [facility] 1.2.314.286 [id number] Univers 00:00:00 00:00:00 Yemideirdre Singh 350.1.13.10 i ty of [place]2.[place].2.[place] [phone] Me dical nal 198 [facility] 2021-03-15 2021-03-[address] [facility] 1.2.950.242 [id number] Univers 13:38:05 14:13:02 Visit Skip Shafer 350.1.13.10 it y of Surgical 4.2.7.2.686 Baljeet as Specialti [phone] Me dical es 198 [facility] 2021-03-15 2021-03-15 Outpatient R DESIRAE [facility] [id number] Univers 13:45:00 13:45:00 SKIP itamy [facility] 2021-02-16 2021-02-16 [facility] 1.2.840.114 [id number] Univers 10:23:22 23:59:00 Encounter Herman Singh 350.1.13.10 ity of [place]2.7.2.[place] [phone] [facility] [address] 2021-02-16 2021-02-16 [facility] 1.2.840.114 [id number] [facility] 10:22:27 10:22:27 Encounter Herman Jack[place]onton 350.1.13.10 ity of [place]2.7.2.686 [place] [phone] [facility] [address] 2021-02-16 2021-02-16 Outpatient Alex WATKINS [facility] [id number] Univers 00:00:00 00:00:00 HERMAN sheldon [facility] 2021-02-16 2021-02-16 Refill Doctor [facility] 1.2.840.114 [id number] Univers 00:00:00 00:00:00 Unassigned, Health 350.1.13.10 ity of [place] 4.2.7.2.686 Baljeet as Professio [phone] [facility] 044 [facility] 2021-02-16 2021-02-16 Reftammie Brush [facility] 1.2.840.114 [id number] Univers 00:00:00 00:00:00 Ben Singh 350.1.13.10 i ty of [place]2.7.2.[place] [phone] Va dicid nal 085 [facility] 2021-02-11 2021-02-[address] [facility] 1.2.840.114 [id number] Univers 10:11:49 10:47:01 Visit [facility] 350.1.13.10 it y of [place] 4.2.7.2.686 Baljeet as Professio [phone] Va dicid nal [address] [place] Office [facility] 2021-02-11 2021-02-11 Outpatient R ROLAND [facility] [id number] Univers 10:15:00 10:15:00 HERMAN sheldon of [facility] 2021-02-05 2021-02-05 Orders Doctor HERMINIA 1.2.840.114 [id number] Univers 00:00:00 00:00:00 Only Unassigned, SARAH 350.1.13.10 ity of [place] HOSPITAL 4.2.7.2.686 Baljeet as [phone] [address] 2021-02-04 2021-02-[address] [facility] 1.2.840.114 [id number] Univers 00:00:00 00:00:00 [facility] 350.1.13.10 it y of [place] 4.2.7.2.686 Baljeet as Professio [phone] [address] Office [facility] 2021-02-02 2021-02-02 Patient Jack [facility] 1.2.840.114 [id number] Univers 00:00:00 00:00:00 Outreach Jessika Anibal [facility] 350.1.13.10 i ty of [place] 4.2.7.2.686 Baljeet as Professio [phone] [facility] nal [address] [place] [address] Office [facility] 2021-02-01 2021-02-01 Refill Doctor [facility] 1.2.840.114 [id number] Univers 00:00:00 00:00:00 Unassigned, Health 350.1.13.10 ity of [place] 4.2.7.2.686 Baljeet as Professio [phone] [facility] nal [address] [place] [address] Office [facility] 2021-01-27 2021-01-27 Orders Doctor HERMINIA 1.2.840.114 [id number] Univers 00:00:00 00:00:00 Only Unassigned, SARAH 350.1.13.10 ity of [place] [facility]OSPITAL 4.2.7.2.686 Baljeet as [phone] [address] 2021-01-21 2021-01-21 [facility] 1.2.840.114 [id number] Univers 12:40:28 23:59:00 Encounter Herman Singh 350.1.13.10 ity of [place]2.7.2.686 [place] [phone] [facility] [address] 2021-01-21 2021-01-[address] [facility] 1.2.840.114 [id number] 89 Univers 12:04:11 12:25:41 Visit [facility] 350.1.13.10 it y of [place] 4.2.7.2.686 Baljeet as Professio [phone] [facility] 044 [facility] 2021-01-21 2021-01-21 [facility] [id number] Univers 12:15:00 12:15:00 HERMAN amy [facility] 2021-01-21 2021-01-21 Orders Doctor HOPE 1.2.840.114 [id number] Univers 00:00:00 00:00:00 Only Unassigned, SARAH 350.1.13.10 ity of [place] [facility] 4.2.7.2.686 Baljeet as [phone] [facility] [address] 2021-01-20 2021-01-20 Ancillary Yi Kennedy [facility] 1 .2.840.114 [id number] Univers 09:53:52 10:53:52 Visit Skip Merrill [place] 350.1.13.10 ity of [place].2.7.2.686 [place] [phone] Va dicid nal 178 [facility] 2021-01-20 2021-01-20 Outpatient R DESIRAE [facility] [id number] Univers 10:15:00 10:15:00 SKIPQUIN sheldon [facility] 2021-01-07 2021-01-07 Telephone [facility] 1.2.717.825 [id number] Univers 00:00:00 00:00:00 [facility] 350.1.13.10 it y of [place] 4.2.7.2.686 Baljeet as Professio [phone] Va dicid nal 044 [facility] 2021-01-05 2021-01-[address] [facility] 1.2.840.114 [id number] Univers 12:07:20 23:59:00 Encounter Herman Singh 350.1.13.10 ity of [place].2.7.2.[place] [phone] [facility] [address] 2021-01-05 2021-01-05 Outpatient Alex WATKINS [facility] [id number] Univers 00:00:00 00:00:00 HERMAN sheldon [facility] 2021-01-05 2021-01-05 Orders Doctor HERMINIA 1.2.840.114 [id number] Univers 00:00:00 00:00:00 Only Unassigned, SARAH 350.1.13.10 ity of [place] [facility] 4.2.7.2.686 Baljeet as [phone] [facility] [address] 2020-12-30 2020-12-30 Outpatient [facility] [id number] Univers 00:00:00 00:00:00 HERMAN sheldon [facility] 2020-12-25 2020-12-[address] [facility] 1.2.840.114 [id number] Univers 00:00:00 00:00:00 Herman [facility] 350.1.13.10 it y of [place] 4.2.7.2.686 Baljeet as Professio [phone] Va dical nal [address] [place] [address] Office [facility] 2020-12-23 2020-12-[address] [facility] 1.2.840.114 [id number] Univers 12:28:15 13:38:28 Visit Herman Shafer 350.1.13.10 it y of [place] 4.2.7.2.686 Baljeet as Professio [phone] Va dical nal [address] [place] Office [facility] 2020-12-23 2020-12-23 Quality Control Assessor Lab, Adc Fam Pob I [facility] 1.2. 840.114 [id number] Univers 13:09:13 13:29:13 Visit Herman Watkins 350.1.13.10 ity of [place] 4.2.7.2.686 Baljeet as Professio [phone] Va dicid nal [address] [place] [address] Office [facility] 2020-12-23 2020-12-23 Outpatient Alex WATKINS [facility] [id number] Univers 12:30:00 12:30:00 [facility] 2020-10-22 2020-10-22 Outpatient R BARBARA [facility] [id number] Univers 10:20:00 10:20:00 EUGENIA [facility] 2020-10-09 2020-10-[address] [facility] 1.2.115.796 [id number] Univers 00:00:00 00:00:00 [facility] 350.1.13.10 it y of [place] 4.2.7.2.686 Baljeet as Professio [phone] [address] Office [facility] 2020-10-09 2020-10-[address] [facility] 1.2.162.522 [id number] 00:00:00 00:00:00 [facility] 350.1.13.10 [place] 4.2.7.2.686 Professio [phone] nal [address] [place] [address] One 2020-10-01 2020-10-01 Outpatient R BARBARA [facility] [id number] Univers 10:10:00 10:10:00 EUGENIA [facility] 2020-09-29 2020-09-[address] [facility] 1.2.797.041 [id number] Univers 00:00:00 00:00:00 [facility] 350.1.13.10 it y of [place] 4.2.7.2.686 Baljeet as Professio [phone] [address] Office [facility] 2020-09-29 2020-09-29 Patient Casper [facility] 1.2.840.114 [id number] Univers 00:00:00 00:00:00 Outreach Esau PRIMARY 350.1.13.10 i ty of [facility] 4.2.7.2.686 [place] [phone] [address] 2020-09-29 2020-09-[address] [facility] 1.2.125.386 [id number] 00:00:00 00:00:00 [facility] 350.1.13.10 [place] 4.2.7.2.686 Professio [phone] nal [facility] Office [facility] 2020-09-24 2020-09-24 Refill Winsome [facility] 1.2.840.114 [id number] Univers 00:00:00 00:00:00 Shiwan [place] 350.1.13.10 i ty of [place] 4.2.7.2.686 [place] [phone] [facility] [address] [place] [address] 2020-09-24 2020-09-24 Refill Winsome [facility] 1.2.840.114 [id number] 13 00:00:00 00:00:00 Shiwan [place] 350.1.13.10 [place] 4.2.7.2.686 Professio [phone] [address] 2020-09-23 2020-09-23 Outpatient R BARBARA [facility] [id number] Univers 15:40:00 15:40:00 EUGENIA ity of [facility] 2020-09-14 2020-09-14 Orders Doctor HERMINIA 1.2.840.114 [id number] Univers 00:00:00 00:00:00 Only Unassigned, SARAH 350.1.13.10 ity of [place] [facility] 4.2.7.2.686 Baljeet as [phone] [address] 2020-09-03 2020-09-03 Refill Roland [facility] 1.2.840.114 [id number] Univers 00:00:00 00:00:00 [facility] 350.1.13.10 it y of [place] 4.2.7.2.686 Baljeet as Professio [phone] [address] Office [facility] 2020-08-19 2020-08-19 Telephone Roland [facility] 1.2.062.239 [id number] Univers 00:00:00 00:00:00 [facility] 350.1.13.10 it y of [place] 4.2.7.2.686 Baljeet as Professio [phone] [address] Office [facility] 2020-08-17 2020-08-17 Quality Control Assessor Lab, Adc Fam Pob I [facility] 1.2. 840.114 [id number] Univers 09:30:19 09:47:15 Visit Roland [facility] 350.1.13.10 ity of [place] 4.2.7.2.686 Baljeet as Professio [phone] Va dical nal [address] [place] Office [facility] 2020-08-17 2020-08-17 [facility] [id number] Univers 09:00:00 09:00:00 HERMAN ity of [facility] 2020-08-14 2020-08-[address] [facility] 1.2.775.781 [id number] Univers 00:00:00 00:00:00 Herman [facility] 350.1.13.10 it y of [place] 4.2.7.2.686 Baljeet as Professio [phone] [facility] nal [address] [place] Office [facility] [address] [facility] 1.2.840.114 [id number] Univers 00:00:00 00:00:00 Ben [place] 350.1.13.10 i ty of [place]2.7.2.[place] [phone] [facility] 085 [facility] 2020-07-16 2020-07-16 Reftammie Johnson [facility] 1.2.840.114 [id number] Univers 00:00:00 00:00:00 [facility] 350.1.13.10 it y of [place] 4.2.7.2.686 Baljeet as Professio [phone] [facility] nal [address] [place] Office [facility] 2020-07-16 2020-07-[address] [facility] 1.2.840.114 [id number] Univers 00:00:00 00:00:00 [facility] 350.1.13.10 it y of [place] 4.2.7.2.686 Balje[place] as Professio [phone] [address] Office [facility] 2020-07-16 2020-07-16 Orders Doctor HOPE 1.2.840.114 [id number] Univers 00:00:00 00:00:00 Only Unassigned, SARAH 350.1.13.10 ity of [place] [facility] 4.2.7.2.686 Baljeet as [phone] [address] 2020-07-15 2020-07-15 Refill Winsome [facility] 1.2.840.114 [id number] Univers 00:00:00 00:00:00 Shiwan [place] 350.1.13.10 i ty of [place] 4.2.7.2.[place] [phone] Va dical nal 059 [facility] 2020-07-02 2020-07-02 Orders Doctor HERMINIA 1.2.840.114 [id number] Univers 00:00:00 00:00:00 Only Unassigned, SARAH 350.1.13.10 ity of [place] [facility]OSPITAL 4.2.7.2.686 Baljeet as [phone] [address] 2020-06-18 2020-06-18 Telephone [facility] 1.2.717.099 [id number] Univers 00:00:00 00:00:00 [facility] 350.1.13.10 it y of [place] 4.2.7.2.686 Baljeet as Professio [phone] Va dical nal 044 [facility] 2020-06-17 2020-06-[address] [facility] 1.2.840.114 [id number] Univers 00:00:00 00:00:00 Ben [place] 350.1.13.10 i ty of [place] 4.2.7.2.686 [place] [phone] Va dical nal 085 [facility] 2020-06-12 2020-06-12 Telephone [facility] 1.2.065.998 [id number] Univers 00:00:00 00:00:00 [facility] 350.1.13.10 it y of [place] 4.2.7.2.686 Bal[place] as Professio [phone] Va dical nal 044 [facility] 2020-05-25 2020-05-25 Reftammie Johnson [facility] 1.2.840.114 [id number] Univers 00:00:00 00:00:00 [facility] 350.1.13.10 it y of [place] 4.2.7.2.686 Baljeet as Professio [phone] Va dicid nal [address] [place] Office [facility] 2020-05-25 2020-05-[address] [facility] 1.2.840.114 [id number] Univers 00:00:00 00:00:00 [facility] 350.1.13.10 it y of [place] 4.2.7.2.686 Baljeet as Professio [phone] [facility] nal [address] [place] Office [facility] 2020-05-22 2020-05-22 Refill Elizabeth [facility] 1.2.840.114 [id number] Univers 00:00:00 00:00:00 [facility] 350.1.13.10 it y of Vishnu Singh 4.2.7.2.686 Bal[place] as Professio [phone] [facility] nal [address] [place] Office [facility] 2020-05-22 2020-05-22 Reftammie Brush [facility] 1.2.840.114 [id number] Univers 00:00:00 00:00:00 Shiwan [place] 350.1.13.10 i ty of [place] 4.2.7.2.[place] [phone] [facility] 085 [facility] 2020-05-21 2020-05-[address] [facility] 1.2.840.114 [id number] Univers 15:36:34 16:06:34 Visit [facility] 350.1.13.10 it y of [place] 4.2.7.2.686 Baljeet as Professio [phone] [address] Office [facility] 2020-05-21 2020-05-21 Outpatient R LIZETH [facility] [id number] Univers 16:00:00 16:00:00 AUBREY ity of [facility] 2020-05-04 2020-05-04 Orders Doctor HERMINIA 1.2.840.114 [id number] Univers 00:00:00 00:00:00 Only Unassigned, SARAH 350.1.13.10 ity of [place] [facility] 4.2.7.2.686 Baljeet as [phone] [address] 2020-04-22 2020-04-[address] [facility] 1.2.840.114 [id number] Univers 00:00:00 00:00:00 [facility] 350.1.13.10 it y of [place] 4.2.7.2.686 Bal[place] as Professio [phone] [address] Office [facility] 2020-04-22 2020-04-[address] [facility] [facility] [facility] 1.2.840.114 [id number] Univers 00:00:00 00:00:00 [facility] 350.1.13.10 it y of Vishnu Singh 4.2.7.2.686 [place] as Professio [phone] [address] Office Building One 2020-04-12 2020-04-12 [facility] 1.2.840.114 [id number] Univers 00:00:00 00:00:00 [facility] 350.1.13.10 it y of [place] 4.2.7.2.686 Baljeet as Professio [phone] [address] Office [facility] 2020-04-03 2020-04-03 Telephone [facility] 1.2.531.181 [id number] 0153 Univers 00:00:00 00:00:00 Herman Singh 350.1.13.10 i ty of [place]2.7.2.[place] [phone] [address] 2020-04-02 2020-04-02 Orders Doctor HERMINIA 1.2.840.114 [id number] Univers 00:00:00 00:00:00 Only Unassigned, SARAH 350.1.13.10 ity of [place] [facility] 4.2.7.2.686 Baljeet as [phone] [address] 2020-03-31 2020-03-31 Telephone [facility] 1.2.390.150 [id number] Univers 00:00:00 00:00:00 [facility] 350.1.13.10 it y of [place] 4.2.7.2.686 Bal[place] as Professio [phone] [address] Office [facility] 2020-03-11 2020-03-[address] [facility] 1.2.840.114 [id number] 846 Univers 00:00:00 00:00:00 [facility] 350.1.13.10 it y of [place] 4.2.7.2.686 Baljeet as Professio [phone] [address] 2020-02-15 2020-02-15 Reftammie Winsome [facility] 1.2.840.114 [id number] 50 Univers 00:00:00 00:00:00 Shiwan [place] 350.1.13.10 i ty [place].7.2.[place] [phone] [address] 2020-01-21 2020-01-[address] [facility] 1.2.848.480 [id number] 0989 Univers 00:00:00 00:00:00 Shitxn [place] 350.1.13.10 [place] 4[place]2.[place] [phone] [address] 2020-01-20 2020-01-[address] [facility] [facility] 1.2.840.114 [id number] Univers 00:00:00 00:00:00 [facility] [id number] it y of [place] 4.2.7.2.686 [place] Professio [phone] [address] 2020-01-17 2020-01-17 Telephone Roland [facility] [id number] Univers 00:00:00 00:00:00 [facility] [id number] it y of [place] 4.2.7.2.686 [place] Professio [phone] [address] 2020-01-16 2020-01-16 [facility] [facility] 1.2.840.114 [id number] Univers 00:00:00 00:00:00 [facility] [id number] it y of [place] 4.2.7.2.686 [place] Professio [phone] [address] 2020-01-16 2020-01-16 [facility] 1.2.840.114 [id number] Univers 00:00:00 00:00:00 Herman [place] 350.1.13.10 [place] 4[place]2.7.2.[place] [phone] [address] 2020-01-01 2020-01-[address] [facility] [id number] [id number] Univers 00:00:00 00:00:00 [facility] 350.1.13.10 it y of [place] 4.2.7.2.686 [place] Professio [phone] [address] 2019-12-24 2019-12-24 Outpatient R ELIZABETH [facility] [id number] Univers 11:00:00 11:00:00 YUKI ity of [facility] 2019-12-24 2019-12-[address] [facility] 1.2.840.114 [id number] Univers 10:28:50 10:43:50 ne Visit Yuki Samantha 350.1.13.10 ity of [place] [phone] [address] 2019-12-20 2019-12-20 Telephone [facility] [id number] Univers 00:00:00 00:00:00 Herman [place] 350.1.13.10 i ty of [place] [phone] [address] 2019-12-19 2019-12-19 Orders Doctor HERMINIA 1.2.840.114 [id number] Univers 00:00:00 00:00:00 Only Unassigned, SARAH 350.1.13.10 ity of [place] [facility] 4.2.7.2.686 Baljeet as [phone] [address] 2019-12-18 2019-12-18 Telephone [facility] 1.2.177.916 [id number] Univers 00:00:00 00:00:00 Herman [facility] 350.1.13.10 it y of [place] 4.2.7.2.686 [place] Professio [phone] [address] 2019-12-04 2019-12-04 Outpatient R ROLAND [facility] [id number] Univers 12:15:00 12:15:00 HERMAN sheldon [facility] 2019-12-04 2019-12-[address] [facility] 1.2.840.114 [id number] Univers 06:54:04 07:09:04 ne Visit Herman [facility] 350.1.13.10 i ty of [place] 4.2.7.2.686 [place] Professio [phone] [address] 2019-10-31 2019-10-[address] [facility] 1.2.840.114 [id number] Univers 00:00:00 00:00:00 [facility] 350.1.13.10 it y of [place] 4.2.7.2.686 [place] as Professio [phone] [address] Office [facility] 2019-10-25 2019-10-25 [facility] [id number] Univers 10:20:22 23:59:00 HERMAN sheldon [facility] 2019-10-25 2019-10-25 [facility] 1.2.840.114 [id number] Univers 10:00:00 23:59:00 Encounter Herman Singh 350.1.13.10 ity of [place].7.2.[place] Early [phone] [address] 2019-10-17 2019-10-[address] [facility] 1.2.840.114 [id number] Univers 14:16:28 14:31:28 Visit Herman [facility] 350.1.13.10 it y of [place] 4.2.7.2.686 [place] Professio [phone] [address] Office [facility] 2019-10-17 2019-10-17 Orders Doctor HOPE 1.2.840.114 [id number] Univers 00:00:00 00:00:00 Only Unassigned, SARAH 350.1.13.10 ity of [place] [facility] 4.2.7.2.686 [place] as [phone] [address] 2019-10-14 2019-10-14 [facility] [facility] 1.2.840.114 [id number] Univers 00:00:00 00:00:00 Yuki [facility] 350.1.13.10 it y of [place]nu [place] 4.2.7.2.686 [place] Professio [phone] [address] One 2019-09-25 2019-09-25 Orders Doctor HERMINIA 1.2.840.114 [id number] Univers 00:00:00 00:00:00 Only Unassigned, SARAH 350.1.13.10 ity of [place] [facility] 4.2.7.2.686 Bal[place]et as [phone] [address] 2019-05-17 2019-05-17 [facility] 1.2.840.114 [id number] Univers 00:00:00 00:00:00 [facility] 350.1.13.10 it y of [place] 4.2.7.2.686 [place] Professio [phone] [address] One 2019-05-15 2019-05-[address] [facility] 1.2.840.114 [id number] Univers 00:00:00 00:00:00 [facility] 350.1.13.10 it y of [place] 4.2.7.2.686 [place] Professio [phone] [address] One 2019-04-15 2019-04-[address] [facility] 1.2.369.973 [id number] Univers 00:00:00 00:00:00 [facility] 350.1.13.10 it y of [place] 4.2.7.2.686 [place] Professio [phone] [address] One 2007-07-09 2007-07-09 Orders Doctor HERMINIA 1.2.840.114 [id number] Univers 00:00:00 00:00:00 Only Unassigned, SARAH 350.1.13.10 ity of [place] [facility] 4.2.7.2.686 [place] as [phone] [address] Results Test Description Test Time Test Comments Results Result Comments Source TROPONIN I 2023-02-24 01:21:44 Test Item Value Reference Range Interpretation Comme nts TROPONIN I (test code = 9153522370) 0.002 ng/mL <=0.034 DEVENDRA (test code = [...] biotin. Lab Interpretation (test code = Normal 13827-3) [facility] (81514)2023-02-23 23:09:07 Test Item Value Reference Range Interpretation Comments NA (test code = 137 mmol/L 135-145 4534409186) K (test code = 3.1 mmol/L 3.5-5.0 L 5893415556) CL (test code = 98 mmol/L 98-108 1439178506) CO2 TOTAL (test code = 29 mmol/L 23-31 9652433204) AGAP (test code = 10 2-16 8245460879) BUN (test code = 10 mg/dL 7-23 6884817929) GLUCOSE (test code = 121 mg/dL 70-110 H 4114466842) CREATININE (test code = 0.53 mg/dL 0.50-1.04 5187288296) TOTAL BILI (test code = 0.9 mg/dL 0.1-1.8 4605838630) CALCIUM (test code = 8.9 mg/dL 8.6-10.6 8043301968) T PROTEIN (test code = 6.5 g/dL 6.3-8.2 6029656909) ALBUMIN (test code = 3.9 g/dL 3.5-5.0 0546995152) ALK PHOS (test code = 65 U/L 34-122 1258310456) ALTv (test code = 24 U/L 5-35 1742-6) AST(SGOT) (test code = 35 U/L 13-40 5598440461) eGFR (test code = 115.1 mL/min/1.73m2 0947017407) DEVENDRA (test code = DEVENDRA) Association of [...] tests). Lab Interpretation Abnormal (test code = 84263-2) [facility] 23:08:47 Test Item Value Reference Range Interpretation Comments LIPASE (test code = 9434224357) 58 U/L 0-220 Lab Interpretation (test code = Normal 81761-1) [facility] WITH [id number] 23:00:04 Test Item Value Reference Range Interpretation [...] (test code = 50.7 fL 39.0-49.9 H 84596-7) RDW-CV (test code = 15.2 % 12.0-15.5 788-0) PLT (test code = 253 See_Comment [Automated 777-3) message] The system which generated this result transmit aleksandra reference range : 166 - 358 10*3/ ?L. The reference range was not u sed to interpret th is result as normal/abnormal . MPV (test code = 9.4 fL 9.5-12.9 L 38617-7) NRBC/100 WBC (test 0.0 See_Comment [Automat ed code = 2956884443) message] The system which generated this result transmit aleksandra reference range : 0.0 - 10.0 /100 WBCs. The reference range was not used to interpret this result as normal/abnormal . NRBC x10^3 (test code See_Comment [Auto mated = 8753752534) message] The system which generated this result transmit aleksandra reference range : 10*3/?L. The reference range was not used to interpret this result as normal/abnormal . GRAN MAT (NEUT) % 84.0 % (test code = 770-8) IMM GRAN % (test code 0.50 % = 0117124322) LYMPH % (test code = 6.9 % 736-9) MONO % (test code = 8.1 % 5905-5) EOS % (test code = 0.2 % 713-8) BASO % (test code = 0.3 % 706-2) GRAN MAT x10^3(ANC) 11.37 10*3/uL 1.88-7.09 H (test code = 8917709202) IMM GRAN x10^3 (test 0.07 10*3/uL 0.00-0.06 H code = 8062706349) LYMPH x10^3 (test code 0.94 10*3/uL 1.32-3.29 L = 731-0) MONO x10^3 (test code 1.10 10*3/uL 0.33-0.92 H = 742-7) EOS x10^3 (test code = 0.03 10*3/uL 0.03-0.39 711-2) BASO x10^3 (test code 0.04 10*3/uL 0.01-0.07 = 704-7) Lab Interpretation Abnormal (test code = 34200-7) [facility] W/O [id number] 11:16:00 Test Item Value Reference Range Interpretation [...] = 0.00 K/mm3 0.0-0.1 N NRBC#) WBC [id number] 11:16:00 Test Item Value Reference Range Interpretation [...] = NORMAL NORMAL PLTMORPH) - XR CHEST [id number] 08:27:00 Patient Name: MOISÉS CANNON Unit No: [id number] EXAMS: CPT CODE: [id number] XR CHEST 1V 45789 EXAMINATION: - XR CHEST 1V. LOCATION: B2. [...] Giles RT(R) Transcrpt Date/Tm/Trnsp: 12/19/2018 (826) t.SDR.PR7 OrigPrint D/T: S: 12/19/2018 (829) [facility] NAME: MOISÉS CANNON [address] [place] PHYS: [place] [address] : 1955 AGE: 63 SEX: F LOC: Z.SI04 A PHONE #: [phone] EXAM DATE: 12/19/2018 STATUS: ADM IN FAX #: [phone] RADIOLOGY NO: PAGE 1 Signed ReportBASIC METABOLIC [id number] 06:07:00 Test Item Value Reference Range Interpretation [...] code = 9.2 MG/DL 8.4-10.2 N CA) [id number] 06:07:00 Test Item Value Reference Range Interpretation Comments MAGNESIUM (test code = MAG) 2.0 MG/DL 1.6-2.3 N CBC W/O [id number] 05:55:00 Test Item Value Reference Range Interpretation [...] = 0.00 K/mm3 0.0-0.1 N NRBC#) WBC [id number] 05:55:00 Test Item Value Reference Range Interpretation Comments RBC MORPHOLOGY REQUIRED (test code = RBCM) TOTAL CELLS COUNTED (test code = TCC) #CELLS SEGMENTED NEUTROPHILS (test code = % 36.2-73.8 SEG) LYMPHOCYTE (test code = LYMPH) % 12.9-45.1 MONOCYTE (test code = MON) % 0-11 PLATELET ESTIMATE (test code = ADEQUATE PLTEST) PLATELET MORPHOLOGY (test code = NORMAL PLTMORPH) CBC W/AUTO [id number] 05:55:00 Test Item Value Reference Range Interpretation [...] = 0.00 K/mm3 0.0-0.1 N NRBC#) WBC [id number] 05:55:00 Test Item Value Reference Range Interpretation Comments RBC MORPHOLOGY REQUIRED (test code = RBCM) TOTAL CELLS COUNTED (test code = TCC) #CELLS SEGMENTED NEUTROPHILS (test code = % 36.2-73.8 SEG) LYMPHOCYTE (test code = LYMPH) % 12.9-45.1 MONOCYTE (test code = MON) % 0-11 PLATELET ESTIMATE (test code = ADEQUATE PLTEST) PLATELET MORPHOLOGY (test code = NORMAL PLTMORPH) - XR CHEST [id number] 13:33:00 Patient Name: MOISÉS CANNON Unit No: [id number] EXAMS: CPT CODE: [id number] XR CHEST 1V 88270 Chest Radiograph History: RIGHT CHEST TUBE REMOVAL [...] Technologist: Jo-Ann Hall (RT) Transcrpt Date/Tm/Trnsp: 12/18/2018 (4057) tCHARISSEPMT Orig Print D/T: S: 12/18/2018 (9795) [facility] NAME: MOISÉS CANNON [address] [place] PHYS: DONY.Giovanna - [place] [address] : 1955 AGE: 63 SEX: F LOC: Z.SI04 A PHONE #: EXAM DATE: 12/18/2018 STATUS: ADM IN FAX #: [phone] RADIOLOGY NO: PAGE 1 Signed ReportCBC W/O [id number] 09:20:00 Test Item Value Reference Range Interpretation [...] = 0.00 K/mm3 0.0-0.1 N NRBC#) WBC [id number] 09:20:00 Test Item Value Reference Range Interpretation [...] = NORMAL NORMAL PLTMORPH) - XR CHEST [id number] 08:19:00 Patient Name: MOISÉS CANNON Unit No: [id number] EXAMS: CPT CODE: [id number] XR CHEST 1V 30856 EXAMINATION: - XR CHEST 1V. LOCATION: B2. [...] Mild left basilar opacities, likely representing atelectasis. [id number] Reported and signed by: Pushpa Wagoner MD CC: Chito Hanson MD Technologist: Maryjane Giles RT(R) Transcrpt Date/Tm/Trnsp: 12/18/2018 (08) t.SDR.PR7 Orig Print D/T: S: 12/18/2018 (08) [facility] NAME: MOISÉS CANNON [address] [place] PHYS: [place] [address] : 1955 AGE: 63 SEX: F LOC: Z.SI04 A PHONE #: [phone] EXAM DATE: 12/18/2018 STATUS: ADM IN FAX #: [phone] RADIOLOGY NO: PAGE 1 Signed ReportBASIC METABOLIC [id number] 05:44:00 Test Item Value Reference Range Interpretation [...] code = 8.8 MG/DL 8.4-10.2 N CA) [id number] 05:44:00 Test Item Value Reference Range Interpretation Comments MAGNESIUM (test code = MAG) 1.9 MG/DL 1.6-2.3 N CBC W/O [id number] 05:30:00 Test Item Value Reference Range Interpretation [...] = 0.00 K/mm3 0.0-0.1 N NRBC#) WBC [id number] 05:30:00 Test Item Value Reference Range Interpretation Comments RBC MORPHOLOGY REQUIRED (test code = RBCM) TOTAL CELLS COUNTED (test code = TCC) #CELLS SEGMENTED NEUTROPHILS (test code = % 36.2-73.8 SEG) LYMPHOCYTE (test code = LYMPH) % 12.9-45.1 MONOCYTE (test code = MON) % 0-11 PLATELET ESTIMATE (test code = ADEQUATE PLTEST) PLATELET MORPHOLOGY (test code = NORMAL PLTMORPH) CBC W/AUTO [id number] 05:30:00 Test Item Value Reference Range Interpretation [...] = 0.00 K/mm3 0.0-0.1 N NRBC#) WBC [id number] 05:30:00 Test Item Value Reference Range Interpretation Comments RBC MORPHOLOGY REQUIRED (test code = RBCM) TOTAL CELLS COUNTED (test code = TCC) #CELLS SEGMENTED NEUTROPHILS (test code = % 36.2-73.8 SEG) LYMPHOCYTE (test code = LYMPH) % 12.9-45.1 MONOCYTE (test code = MON) % 0-11 PLATELET ESTIMATE (test code = ADEQUATE PLTEST) PLATELET MORPHOLOGY (test code = NORMAL PLTMORPH) CBC W/O [id number] 09:18:00 Test Item Value Reference Range Interpretation [...] = 0.00 K/mm3 0.0-0.1 N NRBC#) WBC [id number] 09:18:00 Test Item Value Reference Range Interpretation [...] = NORMAL NORMAL PLTMORPH) - XR CHEST [id number] 08:48:00 Patient Name: MOISÉS CANNON Unit No: [id number] EXAMS: CPT CODE: [id number] XR CHEST 1V 43746 REASON FOR EXAM: Chest tube, lung lesion, [...] pneumonia or other interstitial process. Heart size isnormal. No left effusion or pneumothorax can be [...] Technologist: Maryjane Giles RT(R) Transcrpt Date/Tm/Trnsp: 12/17/2018 (0848) t.DEBBI.RCM Orig Print D/T: S: 12/17/2018 (0851) [facility] NAME: MOISÉS CANNON [address] [place] PHYS: [place] [address] : 1955 AGE: 63 SEX: F LOC: Z.SI04 A PHONE #: [phone] EXAM DATE: 12/17/2018 STATUS: ADM IN FAX #: [phone] RADIOLOGY NO: PAGE 1 Signed ReportBASIC METABOLIC [id number] 05:48:00 Test Item Value Reference Range Interpretation [...] code = 8.6 MG/DL 8.4-10.2 N CA) [id number] 05:48:00 Test Item Value Reference Range Interpretation Comments MAGNESIUM (test code = MAG) 2.0 MG/DL 1.6-2.3 N PROTHROMBIN [id number] 05:37:00 Test Item Value Reference Range Interpretation [...] myocar dial infarction. 2.0 - 3.0 3. Orthopaedic Technologist al prosthesis hear t valves, recurre nt systemic emboli sm. 3.0 - 4.5 CBC W/O [id number] 05:18:00 Test Item Value Reference Range Interpretation [...] = 0.00 K/mm3 0.0-0.1 N NRBC#) WBC [id number] 05:18:00 Test Item Value Reference Range Interpretation Comments RBC MORPHOLOGY REQUIRED (test code = RBCM) TOTAL CELLS COUNTED (test code = TCC) #CELLS SEGMENTED NEUTROPHILS (test code = % 36.2-73.8 SEG) LYMPHOCYTE (test code = LYMPH) % 12.9-45.1 MONOCYTE (test code = MON) % 0-11 PLATELET ESTIMATE (test code = ADEQUATE PLTEST) PLATELET MORPHOLOGY (test code = NORMAL PLTMORPH) CBC W/AUTO [id number] 05:18:00 Test Item Value Reference Range Interpretation [...] = 0.00 K/mm3 0.0-0.1 N NRBC#) WBC [id number] 05:18:00 Test Item Value Reference Range Interpretation Comments RBC MORPHOLOGY REQUIRED (test code = RBCM) TOTAL CELLS COUNTED (test code = TCC) #CELLS SEGMENTED NEUTROPHILS (test code = % 36.2-73.8 SEG) LYMPHOCYTE (test code = LYMPH) % 12.9-45.1 MONOCYTE (test code = MON) % 0-11 PLATELET ESTIMATE (test code = ADEQUATE PLTEST) PLATELET MORPHOLOGY (test code = NORMAL PLTMORPH) - XR CHEST [id number] 07:05:00 Patient Name: MOISÉS CANNON Unit No: [id number] EXAMS: CPT CODE: [id number] XR CHEST 1V 53130 Single View Chest. Location: B2 Clinical Indication: [...] Jericho Bates, RT(R) Transcrpt Date/Tm/Trnsp: 12/16/2018 (704) t.ANYAR.RB24 Orig Print D/T: S: 12/16/2018 (707) [facility] NAME: MOISÉS CANNON [address] [place] PHYS: [place] [address] : 1955 AGE: 63 SEX: F LOC: Z.SI04 A PHONE #: [phone] EXAM DATE: 12/16/2018 STATUS: ADM IN FAX#: [phone] RADIOLOGY NO: PAGE 1 Signed ReportBASIC METABOLIC [id number] 06:21:00 Test Item Value Reference Range Interpretation [...] code = 9.0 MG/DL 8.4-10.2 N CA) [id number] 06:21:00 Test Item Value Reference Range Interpretation Comments MAGNESIUM (test code = MAG) 2.0 MG/DL 1.6-2.3 N CBC W/AUTO [id number] 05:52:00 Test Item Value Reference Range Interpretation [...] K/mm3 0.0-0.1 N NRBC#) - XR CHEST [id number] 05:42:00 Patient Name: MOISÉS CANNON Unit No: [id number] EXAMS: CPT CODE: [id number] XR CHEST 1V 59099 Location: U19. CHEST, FRONTAL VIEW HISTORY: SUBQ [...] Jericho Bates, RT(R) Transcrpt Date/Tm/Trnsp: 12/15/2018 (0542) tMARITZAR.SP17 Orig Print D/T: S: 12/15/2018 (0545) [facility] NAME: MOISÉS CANNON [address] [place] PHYS: [place] [address] : 1955 AGE: 63 SEX: F LOC: Z.SI04 A PHONE #: [phone] EXAM DATE: 12/15/2018 STATUS: ADM IN FAX #: [phone] RADIOLOGY NO: PAGE 1 Signed Report- XR CHEST [id number] 08:24:00 Patient Name: MOISÉS CANNON Unit No: [id number] EXAMS: CPT CODE: [id number] XR CHEST 1V 30981 REASON FOR EXAM: Chest tube, thoracotomy.. COMPARISON: [...] MD Technologist: Maryjane Giles RT(R) Transcrpt Date/Tm/Trnsp: 12/14/2018 (08) t.ISAIAHM Orig PrintD/T: S: 12/14/2018 (08) [facility] NAME: MOISÉS CANNON [address] [place] PHYS: [place] [address] : 1955 AGE: 63 SEX: F LOC: Z.SI04 A PHONE #: [phone] EXAM DATE: 12/14/2018 STATUS: ADM IN FAX #: [phone] RADIOLOGY NO: PAGE 1 Signed ReportBASIC METABOLIC [id number] 07:39:00 Test Item Value Reference Range Interpretation [...] code = 8.6 MG/DL 8.4-10.2 N CA) [id number] 07:39:00 Test Item Value Reference Range Interpretation Comments MAGNESIUM (test code = MAG) 2.0 MG/DL 1.6-2.3 N CBC W/AUTO [id number] 07:24:00 Test Item Value Reference Range Interpretation [...] code = 0.00 K/mm3 0.0-0.1 N NRBC#) [id number] 11:49:00 Test Item Value Reference Range Interpretation Comments POTASSIUM (test code = K) 3.7 MMOL/L 3.5-5.1 N - XR CHEST [id number] 07:42:00 Patient Name: MOISÉS CANNON Unit No: [id number] EXAMS: CPT CODE: [id number] XR CHEST 1V 36336 EXAMINATION: - XR CHEST 1V. LOCATION: B2. HISTORY: F/U. COMPARISON: Radiograph dated 12/12/2018. TECHNIQUE: Single AP view of the chest was obtained. FINDINGS: Right IJ line and right chest tube are unchanged in position. The heart is normal in size. There is elevation of the right hemidiaphragm with mild blunting of the right costophrenic angle. Mild left basilar opacities are present. There is no pneumothorax. Extensive subcutaneous emphysema is seen throughout the visualized soft tissues, notsignificantly changed. There has been prior lower cervical spine surgery. No new osseous abnormalityis identified. IMPRESSION: Small right pleural effusion and/or atelectasis. Mild left basilar opacities, likely representing atelectasis. Extensive subcutaneous emphysema, unchanged. at 0742 Reported and signed by: Pushpa Wagoner MD CC: Chito Hanson MD Technologist: Maryjane Giles RT(R) Transcrpt Date/Tm/Trnsp: 12/13/2018 (0742) t.SDR.PR7 Orig Print D/T: S: 12/13/2018 (0745) [facility] NAME: MOISÉS CANNON [address] [place] PHYS:[place] [address] : 1955 AGE: 63 SEX: F LOC: Z.SI04 A PHONE #: [phone] EXAM DATE: 12/13/2018 STATUS: ADM IN FAX #: [phone] RADIOLOGY NO: PAGE 1 Signed Report TB TEST [id number] 07:32:00 Test Item Value Reference Range Interpretation Comments TB TEST IGRA (test code = TBTEST) Negative Negative BASIC METABOLIC [id number] 05:53:00 Test Item Value Reference Range Interpretation [...] code = 8.7 MG/DL 8.4-10.2 N CA) [id number] 05:53:00 Test Item Value Reference Range Interpretation Comments MAGNESIUM (test code = MAG) 1.8 MG/DL 1.6-2.3 N CBC W/AUTO [id number] 05:35:00 Test Item Value Reference Range Interpretation [...] K/mm3 0.0-0.1 N NRBC#) - XR CHEST [id number] 08:38:00 Patient Name: MOISÉS CANNON Unit No: [id number] EXAMS: CPT CODE: [id number] XR CHEST 1V 94427 REASON FOR EXAM: Lung tumor resection. COMPARISON: [...] limited study. Right chest tube, stable. Similar appearanceto subcutaneous emphysema. Location: U19 at 0838 Reported and signed by: Chris Ortiz MD CC: Chito Hanson MD Technologist: RT Luc(R) Transcrpt Date/Tm/Trnsp: 12/12/2018 (08) t.ANYAR.RCM Orig Print D/T: S: 12/12/2018 (0841) [facility] NAME: MOISÉS CANNON [address] [place] PHYS: [place] [address] : 1955 AGE: 63 SEX: F LOC: Z.SI04 A PHONE #: [phone] EXAM DATE: 12/12/2018 STATUS: ADM IN FAX #: [phone] RADIOLOGY NO: PAGE 1 Signed Report AB [id number] 07:36:00 Test Item Value Reference Range Interpretation Comments AB COCCIDIOIDES (test code = COCCIAB) <0.150 < 1:2 BASIC METABOLIC [id number] 05:56:00 Test Item Value Reference Range Interpretation [...] code = 8.7 MG/DL 8.4-10.2 N CA) [id number] 05:56:00 Test Item Value Reference Range Interpretation Comments MAGNESIUM (test code = MAG) 1.9 MG/DL 1.6-2.3 N CBC W/AUTO [id number] 05:42:00 Test Item Value Reference Range Interpretation [...] 0.00 K/mm3 0.0-0.1 N NRBC#) AG HISTOPLASMA [id number] 07:26:00 Test Item Value Reference Range Interpretation Comments AG HISTOPLASMA UA (test code = <0.5 EIA unit <0.5 ng/mL HISUAAG) - XR CHEST [id number] 06:56:00 Patient Name: MOISÉS CANNON Unit No: [id number] EXAMS: CPT CODE: [id number] XR CHEST 1V 62096 Location: U19. CHEST, FRONTAL VIEW HISTORY: S/P CT INSERTION, RIGHT FINDINGS: Since 12/08/18, the right chest tube is stable in position. There is extensive diffuse subcutaneous emphysema limitingassessment of the lungs. No definite pneumothorax. Probable [...] Maryjane Giles RT(R) Transcrpt Date/Tm/Trnsp: 12/11/2018 (0656) Marlena.SP17 Orig Print D/T: S: 12/11/2018 (0700) [facility] NAME: MOISÉS CANNON [address] [place] PHYS: [place] [address] : 1955 AGE: 63 SEX: F LOC: ZCourtneySI04 A PHONE #: [phone] EXAM DATE: 12/11/2018 STATUS: ADM IN FAX #: [phone] RADIOLOGY NO: PAGE 1 Signed Report BASIC METABOLIC [id number] 05:46:00 Test Item Value Reference Range Interpretation [...] code = 8.7 MG/DL 8.4-10.2 N CA) [id number] 05:46:00 Test Item Value Reference Range Interpretation Comments MAGNESIUM (test code = MAG) 1.9 MG/DL 1.6-2.3 N CBC W/AUTO [id number] 05:28:00 Test Item Value Reference Range Interpretation [...] 0.00 K/mm3 0.0-0.1 N NRBC#) BASIC METABOLIC [id number] 05:54:00 Test Item Value Reference Range Interpretation [...] 8.7 MG/DL 8.4-10.2 N CA) CBC W/AUTO [id number] 05:35:00 Test Item Value Reference Range Interpretation [...] 0.00 K/mm3 0.0-0.1 N NRBC#) BASIC METABOLIC [id number] 06:18:00 Test Item Value Reference Range Interpretation [...] 8.5 MG/DL 8.4-10.2 N CA) CBC W/AUTO [id number] 05:48:00 Test Item Value Reference Range Interpretation [...] K/mm3 0.0-0.1 N NRBC#) - XR CHEST [id number] 11:16:00 Patient Name: MOISÉS CANNON Unit No: [id number] EXAMS: CPT CODE: [id number] XR CHEST 1V 99490 Site ID: [id number] HISTORY: Subcutaneous emphysema, right chest tube placement COMPARISON: 4 hours prior FINDINGS: Extensive diffuse subcutaneous emphysema remains present, limiting lung field and pleural space evaluation on this portable frontal radiograph. A right apical chest tube is in place, there is evidence of prior right partial pneumonectomy. Cardiomediastinal [...] MD Technologist: Maksim Gonzales, RT(R) Transcrpt Date/Tm/Trnsp: 12/08/2018 (1116) [id number] Orig Print D/T: S: 12/08/2018 (1119) [facility] NAME: MOISÉS CANNON [id number] [place] PHYS: [place] [address] : 1955 AGE: 63 SEX: F LOC: [id number] A PHONE #: [phone] EXAM DATE: 12/08/2018 STATUS: ADM IN FAX #: [phone] RADIOLOGY NO: PAGE 1 Signed ReportMAGNSAN [facility] 2018-12-08 08:28:00 Test Item Value Reference Range Interpretation Comments MAGNESIUM (test code = MAG) 2.0 MG/DL 1.6-2.3 N - XR CHEST [id number] 07:15:00 Patient Name: MOISÉS CANNON Unit No: [id number] EXAMS: CPT CODE: [id number] XR CHEST 1V 18991 Location of dictation: B2 Portable chest one view. HISTORY: resp distress COMMENT: Compared tyson earlier study the same day. The right IJ central line remains present. Cardiac silhouette is stable. There are more pronounced interstitial infiltrates overlying the lungs. Accounting for the presence of extensive subcutaneous air, findings suggest possible interstitial edema. No new consolidation,pneumothorax or significant effusion seen. Visualized soft tissues and skeletal structures are unremarkable. IMPRESSION: Suspect mild interstitial edema. at 0715 Reported and signed by: Neelima Ghosh M.D. CC: Chito Hanson MD; Jose Luis De La Vega MD Technologist: Pavel Ma, (RT) (R) Transcrpt Date/Tm/Trnsp: 12/08/2018 (0715) [id number] Orig Print D/T: S: 12/08/2018 (0718) [facility] [facility] NAME: MOISÉS CANNON [address] PHYS: [place] [address] : 1955 AGE: 63 SEX: F LOC: Z.SI04 A PHONE #: [phone] EXAM DATE: 12/08/2018 STATUS: ADM IN FAX #: [phone] RADIOLOGY NO: PAGE 1 Signed Report- XR CHEST [id number] 07:08:00 Patient Name: MOISÉS CANNON Unit No: [id number] EXAMS: CPT CODE: [id number] XR CHEST 1V 54125 Location of dictation: B2 Portable chest one view. HISTORY: F/U SUBCUTANEOUS EMPHYSEMA COMMENT:Compared to one day prior. Right IJ central line and right chest tube remain in place. The appearance of the heart and lungs is not appreciably changed. No definite pneumothorax but evaluation obscuredby persistent but slightly improved subcutaneous emphysema. IMPRESSION: Stable appearance of the chest. at 0708 Reported and signed by: Neelima Ghosh M.D. CC: Chito Hanson MD; Oumou Stanley NP Technologist: Jericho Bates RT(R) Transcrpt Date/Tm/Trnsp: 12/08/2018 (0708) Marlena.PXC Orig Print D/T: S: 12/08/2018 (0711) [facility] NAME: MOISÉS CANNON [address] PHYS: [place] [address] : 1955 AGE: 63 SEX: F LOC: Z.SI04 A PHONE #: [phone] EXAM DATE: 12/08/2018 STATUS: ADM IN FAX #: [phone] RADIOLOGY NO: PAGE 1 Signed ReportPOC ARTERIAL BLOOD [id number] 07:01:00 Test Item Value Reference Range Interpretation Comments POC ARTERIAL BLOOD GAS PH 7.382 7.35-7.45 N (test code = POCPHA) POC ARTERIAL BLOOD GAS PCO2 51.4 mmHg 35.0-45.0 HH (test code = JEDMFG0K) POC ARTERIAL BLOOD GAS PO2 82 75.0-100.0 N (test code = LPCTL1Z) POC HCO3 ARTERIAL (test code 30.5 MMOL/L 20.0-26.0 HH = XJHHUY9R) POC BASE EXCESS (test code = 5.0 MMOL/L -3.0-3.0 H POCBEA) POC O2 SATURATION (test code 96 % 92.0-98.5 N = POCO2S) FIO2 (test code = FIO2A) 40 % 21-100 N ABG DELIVERY (test code = N/C MARCUS) ABG SITE (test code = SITEA) R Brachial ALLENS TEST (test code = N/A CHECK MD West/RBJob~ MARIXA) PROTHROMBIN [id number] 06:11:00 Test Item Value Reference Range Interpretation [...] myocar dial infarction. 2.0 - 3.0 3. Orthopaedic Technologist al prosthesis hear t valves, recurre nt systemic emboli sm. 3.0 - 4.5 PTT [id number] 06:11:00 Test Item Value Reference Range Interpretation Comments PTT ACTIVATED (test code = APTT) 23.2 SECONDS 22.0-33.0 N BASIC METABOLIC [id number] 06:09:00 Test Item Value Reference Range Interpretation [...] 9.0 MG/DL 8.4-10.2 N CA) CBC W/AUTO [id number] 05:57:00 Test Item Value Reference Range Interpretation [...] 0.00 K/mm3 0.0-0.1 N NRBC#) BASIC METABOLIC [id number] 12:08:00 Test Item Value Reference Range Interpretation [...] = 8.8 MG/DL 8.4-10.2 N CA) PROTHROMBIN [id number] 12:01:00 Test Item Value Reference Range Interpretation [...] myocar dial infarction. 2.0 - 3.0 3. Orthopaedic Technologist al prosthesis hear t valves, recurre nt systemic emboli sm. 3.0 - 4.5 PTT [id number] 12:01:00 Test Item Value Reference Range Interpretation Comments PTT ACTIVATED (test code = APTT) 24.1 SECONDS 21.0-33.0 N CBC W/AUTO [id number] 11:49:00 Test Item Value Reference Range Interpretation [...] K/mm3 0.0-0.1 N NRBC#) - XR CHEST [id number] 08:32:00 Patient Name: MOISÉS CANNON Unit No: [id number] EXAMS: CPT CODE: [id number] XR CHEST 1V 84072 Location of dictation: B2 Portable chest one [...] Ghosh M.D. CC: Chito Hanson MD Technologist: Maryjnae Giles RT(R) Transcrpt Date/Tm/Trnsp: 12/07/2018 (0832) LilianaC Orig Print D/T: S: 12/07/2018 (0835) [facility] NAME: MOISÉS CANNON [address] PHYS: [place] [address] : 1955 AGE: 63 SEX: F LOC: ZRIGOBERTO04 A PHONE #: [phone] EXAM DATE: 12/07/2018 STATUS:ADM IN FAX #: [phone] RADIOLOGY NO: PAGE 1 Signed Report - XR CHEST [id number] 07:52:00 Patient Name: MOISÉS CANNON Unit No: [id number] EXAMS: CPT CODE: [id number] XR CHEST 1V 73024 Location of dictation: B2 Portable chest one [...] JuanPXC Orig Print D/T: S: 12/06/2018 (0755) [facility] NAME: MOISÉS CANNON [address] PHYS: [place] [address] : 1955 AGE: 63 SEX: F LOC: ZRIGOBERTO04 [place] PHONE #: [phone] EXAM DATE: 12/06/2018 STATUS: ADMIN FAX #: [phone] RADIOLOGY NO: PAGE 1 Signed ReportBASIC METABOLIC [id number] 05:28:00 Test Item Value Reference Range Interpretation [...] code = 9.1 MG/DL 8.4-10.2 N CA) [id number] 05:28:00 Test Item Value Reference Range Interpretation Comments MAGNESIUM (test code = MAG) 2.0 MG/DL 1.6-2.3 N CBC W/AUTO [id number] 05:05:00 Test Item Value Reference Range Interpretation [...] code = 0.00 K/mm3 0.0-0.1 N NRBC#) [id number] 16:13:00 RUN DATE: 12/05/18 [facility] PAGE 1 RUN TIME: 1614 Specimen Inquiry RUN USER: INTERFACE P ATIENT: MOISÉS CANNON LOC: LAURA Castellanos #: [id number] AGE/SX: 63/F ROOM: [facility] RE11/30/18REG DR: Chris Rivera MD : 55 BED: A DIS: STATUS: ADM IN TLOC: SPEC #: [id number] RECD: 11/30/18 STATUS: BERTR[place] RE #: [id number] PAOLA: 11/30/18 [facility] DR: Chris Rivera MD ENTERED: 11/30/18 SP TYPE: LUNG OTHR DR: Chito Hanson MD ORDERED: SURG PATH LVL 5/2, FS, AFB/2, GMS/2, TOUCHPREP EA A CODES: D40735 C01599 - BRONCHUS OF RIG BIOPSY, NOS F85708 U88140 - BRONCHUS OF RIG INFLAMMATION, N N41746 D42590 - BRONCHUS OF RIG GRANULOMATOUS I D40501 O31309 - BRONCHUS OF RIG NECROTIZING GRA G98073 P11984 - BRONCHUS OF RIG NECROSIS, NOS B59026 L36859 - BRONCHUS OF RIG DYSPLASIA, NOS P51955 - LUNG, NOS RL5642 X19886 - BODY TISSUE, NO EMPHYSEMA, NOS TO9680 O70991 - BODY TISSUE, NO DYSPLASIA, NOS COPIES TO: Chito Hanson MD [address] [place] [address] [address] [place], [place] [address] [email or web address] [address] [facility] [place] [address] PROCEDURES: SURG PATH LVL 5 (11/30/181835) FS (11/30/18) AFB (12/05/18) GMS (03/27/19-1122) TOUCH PREP EA A (12/05/18-1118) TISSUES: A. LUNG, NOS - RUL TISSUE B. LUNG, NOS - RT UPPER LOBE BULLAE CLINICAL HISTORY LUNG LESION CPT CODES CPT CODE(S): 21999N8 , 99798 , 47117 , 15510V7 , , , CONTINUED ON NEXT PAGE RUN DATE: 12/05/18 [facility] PAGE 2 RUN TIME: 1614 Specimen Inquiry RUN USER: INTERFACE SPEC #: [id number] PATIENT: MOISÉS CANNON #[id number] (Continued) FINAL DIAGNOSIS A. Lung, right upper [...] 1.3 cm. The nodule is well- circumscribed. Permastone Mechanic sections of nodule submitted for frozen [...] are grossly identified. They are submitted each asB1-B3. /tc/nr MICROSCOPIC DESCRIPTION A. Right upper lobe. Sections show lung tissue with a large granuloma with necrotic center. Special stain (GMS, with good controls, blocks A2 and A3) shows numerous fungal organisms (yeast forms) within the granuloma. AFB stain (with good controls, blocks A2 and A3) is negative for acid-fast bacilli. Adjacent lung tissue has emphysematous changes. No dysplasia ormalignancy is identified. B. Right upper lobe bullae. Sections show fragments of lung tissue with emphysematous changes. Prominent bullae are seen. There is no evidence of dysplasia or malignancy. /paula-- Signed SIGNATURE ON FILE Chris Frank 12/05/18 1613 END OF REPORT - XR CHEST 1V 2018-12-05 08:14:00 Patient Name: MOISÉS CANNON Unit No: [id number] EXAMS: CPT CODE: [id number] XR CHEST 1V 51856 Location of dictation: B2 Portable chest one view. HISTORY: S/P R.A. RIGHT LUNG MASS RESECTIONCOMMENT: Compared to one day prior. A right [...] MD Technologist: Maryjane Giles RT(R) Transcrpt Date/Tm/Trnsp: 12/05/2018 (0814) t.PXC Orig Print D/T: S: 12/05/2018 (0817) [facility] NAME: MOISÉS CANNON [address] PHYS: [place] [address] : 1955 AGE: 63 SEX: F LOC: Z.SI04 A PHONE #: [phone] DATE: 12/05/2018 STATUS: ADM IN FAX #: [phone] RADIOLOGY NO: PAGE 1 Signed Report BASIC METABOLIC [id number] 06:36:00 Test Item Value Reference Range Interpretation [...] code = 9.0 MG/DL 8.4-10.2 N CA) [id number] 06:36:00 Test Item Value Reference Range Interpretation Comments MAGNESIUM (test code = MAG) 1.9 MG/DL 1.6-2.3 N CBC W/AUTO [id number] 06:20:00 Test Item Value Reference Range Interpretation [...] 0.00 K/mm3 0.0-0.1 N NRBC#) BASIC METABOLIC [id number] 21:07:00 Test Item Value Reference Range Interpretation [...] code = 9.0 MG/DL 8.4-10.2 N CA) [id number] 21:07:00 Test Item Value Reference Range Interpretation Comments MAGNESIUM (test code = MAG) 1.8 MG/DL 1.6-2.3 N ARTERIAL BLOOD [id number] 20:51:00 Test Item Value Reference Range Interpretation [...] code = 36 % COHBGFFIO2) GLUCOSE BEDSIDE [id number] 14:59:00 Test Item Value Reference Range Interpretation Comments GLUCOSE BEDSIDE TEST NOT PERFORMED 60-99 Previo usly reported TESTING (test MG/DL result: 55 code = GLUBED) MG/DLEdited b y: ZCorutneyLAB.TQL on 12/04/18:292559 1457: GLU BE D previously repo rted as: 55 L MG/DL GLUCOSE BEDSIDE [id number] 13:35:00 Test Item Value Reference Range Interpretation Comments GLUCOSE BEDSIDE TESTING (test code = 55 MG/DL 60-99 L GLUBED) CALCIUM [id number] 12:44:00 Test Item Value Reference Range Interpretation Comments CALCIUM IONIZED (test code = BABAK) 1.11 MMOL/L 1.12-1.30 L PROTHROMBIN [id number] 10:01:00 Test Item Value Reference Range Interpretation [...] myocar dial infarction. 2.0 - 3.0 3. Orthopaedic Technologist al prosthesis hear t valves, recurre nt systemic emboli sm. 3.0 - 4.5 Comments to Vending Machine Repairer: nonePTT [id number] 10:01:00 Test Item Value Reference Range Interpretation Comments PTT ACTIVATED (test code = APTT) 24.2 SECONDS 22.0-33.0 N Comments to Vending Machine Repairer: none- XR CHEST [id number] 09:06:00 Patient Name: MOISÉS CANNON Unit No: [id number] EXAMS: CPT CODE: [id number] XR CHEST 1V 13283 Location of dictation: B2 Portable chest one [...] (0906) JuanPXC Orig Print D/T: S: 12/04/2018 (0910) [facility] NAME: MOISÉS CANNON [address] [facility]: [place] [address] : 1955 AGE: 63 SEX: F LOC: TAWANNA Nuñez PHONE #: [phone] EXAM DATE: 12/04/2018 STATUS: ADM IN FAX #: [phone] RADIOLOGY NO: PAGE 1 Signed ReportBASIC METABOLIC [id number] 07:35:00 Test Item Value Reference Range Interpretation [...] code = 9.1 MG/DL 8.4-10.2 N CA) [id number] 07:35:00 Test Item Value Reference Range Interpretation Comments PHOSPHOROUS (test code = PHOS) 3.7 MG/DL 2.5-4.5 N [id number] 07:35:00 Test Item Value Reference Range Interpretation Comments MAGNESIUM (test code = MAG) 1.9 MG/DL 1.6-2.3 N CBC W/AUTO [id number] 07:25:00 Test Item Value Reference Range Interpretation [...] K/mm3 0.0-0.1 N NRBC#) - XR CHEST [id number] 18:47:00 Patient Name: MOISÉS CANNON Unit No: [id number] EXAMS: CPT CODE: [id number] XR CHEST 1V 89142 EXAM: Portable chest one view. Location code:J9 [...] Kraig Elizabeth M.D. CC: Chito Hanson MD; Gretchen LEE Technologist: Soumya Chapa RT(R) Transcrpt Date/Tm/Trnsp: 12/03/2018 (1846) JuanRR16 Orig Print D/T: S: 12/03/2018 (1849) [facility] NAME: MOISÉS CANNON [address] [address] PHYS: [place] [address] : 1955 AGE: 63 SEX: F LOC: Z.355 A PHONE #: [phone] EXAM DATE: 12/03/2018 STATUS: ADM IN FAX #: [phone] RADIOLOGY NO: PAGE 1 Signed Report- XR CHEST [id number] 07:46:00 Patient Name: MOISÉS CANNON Unit No: [id number] EXAMS: CPT CODE: [id number] XR CHEST 1V 79852 Location of dictation: B2 Portable chest one [...] More pronounced perihilar infiltrates with fluid and/or thickeningof the right interlobar fissure. 2. Status post partial right lobectomy. No pneumothorax with right chest tube in place. at 0746 Reported and signed by: Neelima Ghosh M.D. CC: Chito Hanson MD Technologist: Maryjane Giles RT(R) Transcrpt Date/Tm/Trnsp: 12/03/2018 (0746) JuanPXC Orig Print D/T: S: 12/03/2018 (0749) [facility] NAME: MOISÉS CANNON [address] PHYS: [place] [address] : [birth year]AGE: 63 SEX: F LOC: Z.SI04 A PHONE #: [phone] EXAM DATE: 12/03/2018 STATUS: ADM IN FAX #: [phone] RADIOLOGY NO: PAGE 1 Signed ReportBASIC METABOLIC [id number] 04:54:00 Test Item Value Reference Range Interpretation [...] code = 8.8 MG/DL 8.4-10.2 N CA) [id number] 04:54:00 Test Item Value Reference Range Interpretation Comments MAGNESIUM (test code = MAG) 2.0 MG/DL 1.6-2.3 N CBC W/AUTO [id number] 04:29:00 Test Item Value Reference Range Interpretation [...] K/mm3 0.0-0.1 N NRBC#) - XR CHEST [id number] 06:22:00 Patient Name: MOISÉS CANNON Unit No: [id number] EXAMS: CPT CODE: [id number] XR CHEST 1V 90702 AP VIEW OF THE CHEST LOCATION: R16 [...] Technologist: Jericho Bates, RT(R) Transcrpt Date/Tm/Trnsp: 12/02/2018 (06) t.SDR.JSL Orig Print D/T: S: 12/02/2018 (0644) [facility] NAME: MOISÉS CANNON [address] [address] PHYS: [place] [address] : 1955 AGE: 63 SEX: F LOC: Z.SI04 A PHONE #: [phone] EXAM DATE: 12/02/2018 STATUS: ADM IN FAX #: [phone] RADIOLOGY NO: PAGE1 Signed ReportBASIC METABOLIC [id number] 05:59:00 Test Item Value Reference Range Interpretation [...] code = 8.4 MG/DL 8.4-10.2 N CA) [id number] 05:59:00 Test Item Value Reference Range Interpretation Comments MAGNESIUM (test code = MAG) 2.1 MG/DL 1.6-2.3 N CBC W/AUTO [id number] 05:53:00 Test Item Value Reference Range Interpretation [...] code = 0.00 K/mm3 0.0-0.1 N NRBC#) [id number] 21:37:00 Test Item Value Reference Range Interpretation Comments POTASSIUM (test code = K) 3.2 MMOL/L 3.5-5.1 L Is this a LINE draw? YBASIC METABOLIC [id number] 07:40:00 Test Item Value Reference Range Interpretation [...] code = 8.4 MG/DL 8.4-10.2 N CA) [id number] 07:40:00 Test Item Value Reference Range Interpretation Comments MAGNESIUM (test code = MAG) 1.9 MG/DL 1.6-2.3 N CBC W/AUTO [id number] 07:27:00 Test Item Value Reference Range Interpretation [...] K/mm3 0.0-0.1 N NRBC#) - XR CHEST [id number] 06:27:00 Patient Name: MOISÉS CANNON Unit No: [id number] EXAMS: CPT CODE: [id number] XR CHEST 1V 35653 Exam: Chest portable erect Location: F6 History: [...] t.DEBBI.FC Orig Print D/T: S: 12/01/2018 (629) [facility] NAME: MOISÉS CANNON [address] PHYS: [place] [address] : 1955 AGE: 63 SEX: F LOC: Z.SI04 A PHONE #: [phone] EXAM DATE: 12/01/2018 STATUS: ADM IN FAX #: [phone] RADIOLOGY NO: PAGE1 Signed ReportBASIC METABOLIC [id number] 20:46:00 Test Item Value Reference Range Interpretation [...] code = 8.8 MG/DL 8.4-10.2 N CA) [id number] 20:46:00 Test Item Value Reference Range Interpretation Comments MAGNESIUM (test code = MAG) 1.9 MG/DL 1.6-2.3 N BASIC METABOLIC [id number] 20:42:00 Test Item Value Reference Range Interpretation [...] code = 8.8 MG/DL 8.4-10.2 N CA) [id number] 20:42:00 Test Item Value Reference Range Interpretation Comments MAGNESIUM (test code = MAG) 1.9 MG/DL 1.6-2.3 N CBC W/AUTO [id number] 20:04:00 Test Item Value Reference Range Interpretation [...] 0.00 K/mm3 0.0-0.1 N NRBC#) ARTERIAL BLOOD [id number] 19:53:00 Test Item Value Reference Range Interpretation [...] = 100 % COHBGFFIO2) - XR CHEST [id number] 19:38:00 Patient Name: MOISÉS CANNON Unit No: [id number] EXAMS: CPT CODE: [id number] XR CHEST 1V 74309 EXAM: CHEST ONE VIEW INDICATION: Post Op [...] are normal. IMPRESSION: Mild cardiomegaly with mild conge stive changes bilaterally. No pneumothorax is identified. LOCATION: B2 at 1938 Reported and signed by: Mahi Campa MD CC: Chito Adan Technologist: Jo-Ann Hlal (RT) Transcrpt Date/Tm/Trnsp: 11/30/2018 (1937) 16 Orig Print D/T: S: 11/30/2018 (1940) [facility] NAME: MOISÉS CANNON [address] [address] PHYS: [place] [address] : 1955 AGE: 63 SEX: F [facility] #: [phone] EXAM DATE: 11/30/2018 STATUS: REG [facility] FAX #: [phone] RADIOLOGY NO: PAGE 1Signed ReportHIV 12 AB [id number] 17:53:00 Test Item Value Reference Range Interpretation Comments AB HIV 1 2 NON REACTIVE NON-REAC NOTE: A NONREAC TIVE RESULT (test code = INDICATES THAT HIV-1 AND BUK08VH) HIV-2ANTIBODIES HAVE NOT BEEN FOUND IN T HIS PATIENT SPECIMEN. ANON- REACTIVE RESULT, HOWEVER , DOES NOT PRECLUDE PREVIO USEXPOSURE OR INFECTION WI TH HIV1. AG HIV1 P24 NON REACTIVE NONE REAC (test code = DWP7X19) PROTHROMBIN [id number] 15:49:00 Test Item Value Reference Range Interpretation [...] dial infarction. 2. 0 - 3.0 3. Orthopaedic Technologist al prosthesis hear t valves, recurre nt systemic emboli sm. 3.0 - 4.5 PTT [id number] 15:49:00 Test Item Value Reference Range Interpretation Comments PTT ACTIVATED (test code = APTT) 23.4 SECONDS 22.0-33.0 N - XR CHEST 2 [id number] 15:47:00 Patient Name: MOISÉS CANNON Unit No: [id number] EXAMS: CPT CODE: [id number] XR CHEST 2 V 40875 EXAM: CHEST 2 VIEWS INDICATION: PRE-OP COMPARISON: [...] signed by: Mahi Campa MD CC: Chito Calderon MD Technologist: [facility] STUDENT ; Christian Villavicencio, RT(R) Transcrpt Date/Tm/Trnsp: 11/28/2018 (1547) 16 Orig Print D/T: S: 11/28/2018 (9890) [facility] NAME: MOISÉS CANNON [address] PHYS: [place] [address] : 1955 AGE: 63 SEX: F LOC: Z.5MU PHONE #: [phone] EXAM DATE: 11/28/2018 STATUS: PRE IN FAX #: [phone] RADIOLOGY NO: PAGE 1 Signed ReportBASIC METABOLIC [id number] 15:42:00 Test Item Value Reference Range Interpretation [...] 9.2 MG/DL 8.4-10.2 N CA) CBC W/AUTO [id number] 15:32:00 Test Item Value Reference Range Interpretation [...] N NRBC#) - CTA ABD PEL W [id number] 10:28:00 Patient Name: MOISÉS CANNON Unit No: [id number] Report Has Been Amended EXAMS: CPTCODE: [id number] CTA ABD PEL W CONT 94744 Addendum - 11/15/2018 SIGNED 11/15/2018 ADDENDUM: [id number] CT/CTAAPWCONT Addendum: 3-D/MIP reconstructions of the central arteries were created. at 1028 Reported and signed by: Chris Simmons M.D. Transcribed: 11/15/2018 (1930) tCHARISSERB24 Report CTA Abdomen and Pelvis with and [...] splenic, and left gastric arteries. Superior mesent elias artery is patent. Bilateral main renal arteries [...] of the aortoiliac stent graft are patent. [facility] NAME: LYSSA CANNON [address] PHYS: [place] [address] : 1955 AGE: 63 SEX: F LOC: GarlandCTS PHONE #: [phone] EXAM DATE: 11/06/2018 STATUS: DEP CLI FAX#: [phone] RAD #: D/C DT PAGE 1 Signed Report (CONTINUED) Patient Name: MOISÉS CANNON Unit No: [id number] Report Has Been Amended EXAMS: CPT CODE: [id number] CTA ABD PEL W CONT 46986 (Continued) Bilateral external iliac arteries are patent. [...] RT(R); Kalen CTDI: DLP: Trnscrpt: 11/06/2018 (1346) t.ANYAR.RB24 [facility] NAME: MOISÉS CANNON [address] PHYS: [place] [address] : 1955 AGE: 63 SEX: F LOC: Garland[facility] PHONE #: [phone] EXAM DATE: 11/06/2018 STATUS: DEP CLI FAX #: [phone] RAD #: D/C DT PAGE 2 Signed Report Patient Name: MOISÉS CANNONUnit No: [id number] Report Has Been Amended EXAMS: CPT CODE: [id number] CTA ABD PEL W CONT 49971 (Continued) Orig Print D/T: S: 11/06/2018 (1349) [facility] NAME: MOISÉS CANNON [address] [address] PHYS: [place] [address] : 1955 AGE: 63 SEX: F LOC: Z.CTS PHONE #: [phone] EXAM DATE: 11/06/2018 STATUS: DEP CLI FAX #: [phone] RAD #: D/C DT PAGE 3 Signed ReportBEDSIDE [id number] 14:50:00 Test Item Value Reference Range Interpretation Comments BEDSIDE CREATININE (test code = 0.6 MG/DL 0.6-1.4 N CREATBED) - CT CHEST W/[id number] 14:06:00 Patient Name: MOISÉS CANNON Unit No: [id number] EXAMS: CPT CODE: [id number] CT CHEST W/CONTRAST 52175 EXAM: Chest CT with contrast Location: B2 INDICATION: Lung nodule COMPARISON: Chest x-ray on 12/21/2015 TECHNIQUE: Helical CT of the chest was performed following the administration of 100 mL Isovue-370 IV contrast. 5 mm axial and coronal and sagittal reformatted images were performed. DISCUSSION: Lungs and airways: A 14 mm rounded right upper lobe nodule is identified. This is visible onthe customer service driver film, but was not evident on the [...] pleural surface. This is visible on the customer service driver film, and was not present on theprior [...] size, and/or utilization of iterative reconstruction technique. [facility] NAME: MOISÉS CANNON [address] [address] PHYS: Chris Sky MD [place] [id number] : 1955 AGE: 63 SEX: F LOC: Z.CTS PHONE #: [phone] EXAM DATE: 11/06/2018 STATUS: REG CLI FAX #: [phone] RAD #: D/C DT PAGE 1 Signed Report (CONTINUED) Patient Name: MOISÉS CANNON Unit No: [id number] EXAMS: CPT CODE: [id number] CT CHEST W/CONTRAST 39787 (Continued) DLP: 1708 mGy-cm CTDI: 51 mGy at 1406 Reported and signed by: Jake Menchaca MD CC: Chito Hanson MD Technologist: Anam Bill RT(R); Kalen CTDI: DLP: Trnscrpt: 11/06/2018 (1406) t.SDR.BC0 [facility] NAME: MOISÉS CANNON [address] [address] PHYS: [place] [address] : 1955 AGE: 63 SEX: F LOC: Z.CTS PHONE #: [phone] EXAM DATE: 11/06/2018 STATUS: REG CLI FAX #: [phone] RAD #: D/C DT PAGE 2 Signed Report Patient Name: MOISÉS CANNON Unit No: [id number] EXAMS: CPT CODE: [id number] CT CHEST W/CONTRAST [address]4780 (Continued) Orig Print D/T: S: 11/06/2018 (1409) [facility] NAME: MOISÉS CANNON [address] [address] PHYS:[place] [address] : 1955 AGE: 63 SEX: F LOC: Z.CTS PHONE #: [phone] EXAM DATE: 11/06/2018 STATUS: REG CLI FAX #: [phone] RAD #: D/C DT PAGE 3 Signed Report- CTA ABD PEL W [id number] 13:46:00 Patient Name: MOISÉS CANNON Unit No: [id number] EXAMS: CPT CODE: [id number] CTA ABD PEL WCONT 21244 CTA Abdomen and Pelvis with and without contrast. Location: B2 Clinical indication: 63-year-old with endoleak following aneurysm repair Comparison: November 25, 2015 CT Technique: Computed axial images were obtained from the diaphragms through the pubic symphysis both before and after the IV ad ministration of 100 mL Isovue-370. Up to date CT equipment and radiation dose technique were utilized. Up-to-date CT equipment and radiation dose reduction technique were utilized. Findings: Abdomen: There has been prior stent graft repair of an aortic aneurysm. An aortobiiliac stent graft is present.The excluded sac measures up to 4.5 x [...] Small dissection of the right common femoral a rtery. 4. Interval right renal infarct. [facility] NAME: MOISÉS CANNON [id number] PHYS: [place] [address] : 1955 AGE: 63 SEX: F LOC: Z.CTS PHONE #: [phone] EXAM DATE: 11/06/2018 STATUS: REG CLI FAX #: [phone] RAD #: D/C DT PAGE 1 Signed Report (CONTINUED) Patient Name: MOISÉS CANNON Unit No: [id number] EXAMS:CPT CODE: [id number] CTA ABD PEL W CONT 76199 (Continued) at 1346 Reported and signed by: Chris Simmons M.D. CC: Chito Hanson MD Technologist: Anam Bill, RT(R); Kalen CTDI: DLP: Trnscrpt: 11/06/2018 (1346) [email or web address] [facility] NAME: MOISÉS CANNON [id number] PHYS: [place] [address] : 1955 AGE: 63 SEX: F LOC: KAYLYN PHONE #: [phone] EXAM DATE: 11/06/2018 STATUS: REG CLI FAX #: [phone] RAD #: D/C DT PAGE 2 Signed Report Patient Name: MOISÉS CANNON Unit No: [id number] EXAMS: CPT CODE: [id number] CTA ABD PEL W CONT 66039 (Continued) Orig Print D/T: S: 11/06/2018 (1349) [facility] [place] NAME: MOISÉS CANNON [id number] PHYS:[place] [address] : 1955 AGE: 63 SEX: F LOC: KAYLYN PHONE #: [phone] EXAM DATE: 11/06/2018 STATUS: REG CLI FAX #: [phone] RAD #: D/C DT PAGE 3 Signed [...] (BEAKER) (test code = 2801) BASIC METABOLIC [id number] 05:36:00 Test Item Value Reference Range Interpretation [...] DIALYSIS PATIEN TS. CT, CTA AAA, W/ [email or web address].[id number] 18:40:00Addendum BeginsREPORT STATUS:A Addendum: I agree with the previously described non vascular findings. Additionally there is mild skin thickening in the lower anterior abdominal wall and subcutaneous edema which may be secondary to cellulitis. Signed: Dain Mahmood MDReport Verified Date/Time: 09/17/2018 18:40:47 Reading Location: [place] [address] Angio Body Reading RoomAddendum EndsFINAL REPORT CT [...] and during intravenous contrast administration using a [employer]ing[employer] multidetector CT scanner. Images were obtained before [...] dictated regarding the non-vascular findings by the Career Development Associate Radiologist. Signed: Morteza Johnson MDReport Verified Date/Time: 09/17/2018 14:46:36 Reading Location: [place] [address] Cardiology MRI BASI METABOLIC [id number] 07:21:00 Test Item Value Reference Range Interpretation [...] S NOT APPLICABLE FOR DIALYSIS PATIEN TS. [id number] 07:20:00 Test Item Value Reference Range Interpretation Comments PHOSPHORUS (BEAKER) (test code = 3.8 mg/dL 2.5-4.5 604) [id number] 07:15:00 Test Item Value Reference Range Interpretation Comments MAGNESIUM (BEAKER) (test code = 1.9 mg/dL 1.5-3.0 627) CBC W/PLT COUNT & AUTO [id number] 06:56:00 Test Item Value Reference Range Interpretation [...] (BEAKER) (test code = 2801) BASIC METABOLIC [id number] 05:51:00 Test Item Value Reference Range Interpretation [...] PATIEN TS. CBC W/PLT COUNT & AUTO [id number] 05:23:00 Test Item Value Reference Range Interpretation [...] pg/mL 0-100 H (test code = 700) [id number] 05:49:00 Test Item Value Reference Range Interpretation Comments PHOSPHORUS (BEAKER) (test code = 1.5 mg/dL 2.5-4.5 LL 604) BASIC METABOLIC [id number] 05:45:00 Test Item Value Reference Range Interpretation [...] S NOT APPLICABLE FOR DIALYSIS PATIEN TS. [id number] 05:39:00 Test Item Value Reference Range Interpretation Comments MAGNESIUM (BEAKER) (test code = 2.3 mg/dL 1.5-3.0 627) CBC W/PLT COUNT & AUTO [id number] 05:24:00 Test Item Value Reference Range Interpretation [...] (BEAKER) (test code = 2801) BASIC METABOLIC [id number] 21:36:00 Test Item Value Reference Range Interpretation [...] PATIEN TS. CBC W/PLT COUNT & AUTO [id number] 16:26:00 Test Item Value Reference Range Interpretation [...] 0-0 H PERCENT (BEAKER) (test code = 0190)"
[2023-06-03] MEDS ORDERED: NA CHLORIDE 0.9% 1,000 ML ONE (21:23)
[2023-06-03] MEDS ORDERED: ONDANSETRON 4 MG/2 ML VIAL ONE (21:23)
[2023-06-03 21:26] LABS: Absolute Lymphocytes (CBC) 1.1 K/uL (0.7-4.9); Hematocrit 46.8 % (36.0-45.0); Lymphocytes % 8.5 % (15.3-44.8); MCV 96.6 fL (80-100); MPV 6.5 fL (7.6-11.3); Platelets 258 thou/uL (152-406); RBC Red Blood Cell Count 4.85 M/uL (3.86-4.86)
[2023-06-03 21:30] LABS: Protime INR 0.95
[2023-06-03 21:41] LABS: Albumin 3.5 g/dL (3.4-5.0); Potassium 3.5 mEq/L (3.5-5.1); Protein, Total 6.7 g/dL (6.4-8.2)
--- NOTE | 2023-06-03 22:30 | RAD REPORT ---
EXAM DESCRIPTION: CTAbdomen Pelvis W Contrast - 06/03/2023 10:21 pm CLINICAL HISTORY: Abdominal pain. ABD PAIN COMPARISON: <Comparisons> TECHNIQUE: Biphasic CT imaging of the abdomen and pelvis was performed with 100 ml non-ionic IV cont rast. All CT scans are performed using dose optimization technique as appropriate and may include automated exposure control or mA/KV adjustment according to patient size. FINDINGS: The lung bases are clear.Small hiatal hernia. The liver, spleen, pancreas, adrenal glands and kidneys are within normal limits. No bowel obstruction, free air, free fluid or abscess. The appendix is normal. Aortoiliac endograft is in place. No evidence of significant lymphadenopathy. Postsurgical lumbar spine with hardware in place. Neurostimulator device is present. Fat containing b ilateral inguinal hernias. IMPRESSION: No acute intra-abdominal or pelvic finding.
[2023-06-03 22:45] LABS: Specific Gravity > 1.030 (1.005-1.030); Urine Bilirubin NEGATIVE (Negative); Urine Blood Negative (Negative); Urine Clarity Clear (Clear); Urine Color Light-Yellow (Yellow); Urine Glucose NEGATIVE (Negative); Urine Protein NEGATIVE (Negative); Urine Urobilinogen Normal (Normal)
--- NOTE | 2023-06-03 23:19 | ER ---
Nurse's Notes [facility] Name: Amanda Malik Age: 67 yrs Sex: Female : 1955 Arrival Date: 06/03/2023 Time: 20:46 Bed 15 Private MD: Diagnosis: Hypotension, unspecified;Nausea with vomiting, unspecified;Diarrhea, unspecified;Abdominal pain, Generalized Presentation: 06/03 20:55 Chief complaint: Patient states: vomiting with diarrhea since 1300 today. cant keep lg3 anything down. kristie been taking Ozempic for weigh loss and this has happened more times then now. Coronavirus screen: Client denies travel out of the [place] in the last 14 days. At this time, the client does not indicate any symptoms associated with coronavirus-19. Ebola Screen: No symptoms or risks identified at this time. Initial Sepsis Screen: Does the patient meet any 2 criteria? No. Patient's initial sepsis screen is negative. Does the patient have a suspected source of infection? No. Patient's initial sepsis screen is negative. Risk Assessment: Do you want to hurt yourself or someone else? Patient reports no desire to harm self or others. Onset of symptoms was June 03, 2023. 20:55 Method Of Arrival: Wheelchair lg3 20:55 Acuity: EMILY 3 lg3 Triage Assessment: 20:58 General: Appears in no apparent distress. uncomfortable, Behavior is calm, cooperative. lg3 Pain: Complains of pain in abdomen. EENT: No deficits noted. No signs and/or symptoms were reported regarding the EENT system. Neuro: No deficits noted. Torre Agitation-Sedation Scale (RASS): 0 - Alert and Calm Level of Consciousness is awake, alert, obeys commands, Oriented to person, place, time, situation. Neuro: Reports weakness. Cardiovascular: No deficits noted. Denies chest pain, shortness of breath, Capillary refill < 3 seconds Clubbing of nail beds is absent JVD is absent Patient's skin is warm and dry. Respiratory: No deficits noted. Airway is patent Respiratory effort is even, unlabored, Respiratory pattern is regular, symmetrical. GI: Reports lower abdominal pain, upper abdominal pain, cramping, diarrhea, intolerance of fluids, intolerance of food, nausea. : No deficits noted. No signs and/or symptoms were reported regarding the genitourinary system. Derm: No deficits noted. No signs and/or symptoms reported regarding the dermatologic system. Skin is intact, is healthy with good turgor, Skin is dry, Skin is normal, Skin temperature is warm. Musculoskeletal: No deficits noted. No signs and/or symptoms reported regarding the musculoskeletal system. Circulation, motion, and sensation intact. Range of motion: intact in all extremities. Historical: - Allergies: 20:58 No Known Allergies; lg3 - PMHx: 20:58 AAA; COPD; GERD; High Cholesterol; Hypertension; lg3 - PSHx: 20:58 Appendectomy; hysterectomy; back; neck; shoulder; breast reduction; lg3 - Immunization history:: Adult Immunizations up to date. - Social history:: Smoking status: Patient denies any tobacco usage or history of. Patient uses alcohol, but reports only rare drinking. Screenin:51 [facility] ED Fall Risk Assessment (Adult) History of falling in the last 3 months, fu including since admission No falls in past 3 months (0 pts). Abuse screen: Denies threats or abuse. Nutritional screening: No deficits noted. Tuberculosis screening: No symptoms or risk factors identified. Assessment: 21:00 General: Appears uncomfortable, Behavior is calm, cooperative, appropriate for age, fu Denies fever, chills. Pain: Complains of pain in abdomen Pain does not radiate. Pain currently is 6 out of 10 on a pain scale. Neuro: Level of Consciousness is awake, alert, obeys commands, Oriented to person, place, time, situation, Moves all extremities. Speech is normal. Cardiovascular: Reports nausea, vomiting, Denies chest pain. Respiratory: Respiratory effort is even, unlabored, Respiratory pattern is regular. GI: Pt is actively vomiting Abd is soft Reports nausea, vomiting. Derm: multiple scabs, bruising from dog scratch as per patient. 21:30 Reassessment: Patient is alert, oriented x 3, equal unlabored respirations, skin fu warm/dry/pink. denies nausea, vomiting not noted Patient states feeling better. 23:01 Reassessment: Patient and/or family updated on plan of care and expected duration. Pain fu level reassessed. Patient is alert, oriented x 3, equal unlabored respirations, skin warm/dry/pink. Vital Signs: 20:55 BP 89 / 65; Pulse 123; Resp 16 S; Temp 97.7; Pulse Ox 98% on R/A; Weight 52.16 kg (R); lg3 Height 5 ft. 0 in. (R); 22:02 BP 107 / 68; Pulse 106; Resp 17; Temp 98.4(O); Pulse Ox 95% on R/A; Weight 52.16 kg fu (R); Height 5 ft. 0 in. (R); Pain 0/10; 23:00 BP 98 / 56; Pulse 105; Resp 15; Pulse Ox 93% on R/A; Pain 0/10; fu 22:02 Body Mass Index 22.46 (52.16 kg, 152.4 cm) fu 22:02 Pain Scale: Adult fu 23:00 Pain Scale: Adult fu ED Course: 20:49 Patient arrived in ED. ag3 20:58 Triage completed. lg3 20:58 Arm band placed on right wrist. lg3 20:59 Beni Rodrigues DO is Attending Physician. ms3 21:15 Vj Barajas, ZAYRA is Primary Nurse. fu 21:15 Inserted saline lock: 22 gauge in right forearm, using aseptic technique. Blood ap3 collected. 21:16 Initial lab(s) drawn, Repeat lab(s) drawn. sent to lab. First set of blood cultures ap3 drawn by me. 22:22 CT Abd/Pelvis - IV Contrast Only In Process Unspecified. EDMS 22:48 Second set of blood cultures drawn by me. fu 22:58 Patient has correct armband on for positive identification. Bed in low position. Call fu light in reach. Side rails up X2. draftsperson on. Pulse ox on. NIBP on. Warm blanket given. 23:18 Mayela Kee MD is Hospitalizing Provider. ms3 06/04 00:00 No provider procedures requiring assistance completed. fu 00:30 Patient admitted, IV remains in place. fu Administered Medications: 06/03 21:15 Drug: NS 0.9% IV 1000 ml IV at 1 bolus Per protocol; 1000 mL bolus Route: IV; Rate: 1 fu bolus; Site: right forearm; 22:59 Follow up: Response: No adverse reaction; IV Intake: 1000ml fu 21:15 Drug: Ondansetron IVP 4 mg IVP once; over 2 minutes Route: IVP; Site: right forearm; fu 22:15 Follow up: Response: Nausea is decreased fu Medication: 22:58 VIS not applicable for this client. fu Intake: 22:59 IV: 1000ml; Total: 1000ml. fu Outcome: 23:18 Decision to Hospitalize by Provider. ms3 06/04 00:30 Admitted to Med/surg accompanied by tech, room 208, Report called to Dari hooper Condition: stable Instructed on the need for admit, Demonstrated understanding of instructions, 00:32 Patient left the ED. fu Signatures: Dispatcher [employer] EDMS Vj Barajas, RN RN fu Emely Augustine RN RN ap3 Nicci Woodward3 Shey Joshua, RN RN lg3 Beni Rodrigues DO DO ms3 Corrections: (The following items were deleted from the chart) 06/03 20:59 20:58 PSHx: section; lg3 lg3
--- NOTE | 2023-06-03 23:19 | EDPHYS ---
Physician Documentation [facility] Name: Amanda Malik Age: 67 yrs Sex: Female : 1955 Arrival Date: 06/03/2023 Time: 20:46 Bed 15 Private MD: ED Physician Beni Rodrigues HPI: 06/03 21:09 This 67 yrs old Unknown Female presents to ER via Wheelchair with complaints of ms3 Vomiting, Weakness. 21:09 67-year-old female with past medical history of AAA, COPD, GERD, hyperlipidemia, ms3 hypertension, anxiety presents with her son for generalized weakness, diarrhea, vomiting, abdominal pain that began today. Patient's son states this is the third episode similar to this that the patient has had. Patient denies pain currently. Patient endorses nausea, vomiting, diarrhea. Patient denies alleviating or inciting factors. Historical: - Allergies: 20:58 No Known Allergies; lg3 - PMHx: 20:58 AAA; COPD; GERD; High Cholesterol; Hypertension; lg3 - PSHx: 20:58 Appendectomy; hysterectomy; back; neck; shoulder; breast reduction; lg3 - Immunization history:: Adult Immunizations up to date. - Social history:: Smoking status: Patient denies any tobacco usage or history of. Patient uses alcohol, but reports only rare drinking. ROS: 21:09 Constitutional: Negative for fever, and chills. Neck: Negative for injury, pain, and ms3 swelling, Cardiovascular: Negative for chest pain, and palpitations. Respiratory: Negative for shortness of breath, cough, wheezing, and pleuritic chest pain, 21:09 MS/Extremity: Negative for injury and deformity, Skin: Negative for injury, rash, and discoloration, 21:09 Abdomen/GI: Positive for abdominal pain, nausea, vomiting, and diarrhea, 21:09 All other systems are negative, Exam: 21:09 Constitutional: This is a well developed, well nourished patient who is awake, alert, ms3 and in no acute distress. Head/Face: Normocephalic, atraumatic. Neck: Trachea midline, no cervical lymphadenopathy. Supple, full range of motion without nuchal rigidity, or vertebral point tenderness. No Meningismus. Chest/axilla: Normal chest wall appearance and motion. Nontender with no deformity. Cardiovascular: Regular rate and rhythm with a normal S1 and S2. No gallops, murmurs, or rubs. Normal PMI, no JVD. No pulse deficits. Respiratory: Lungs have equal breath sounds bilaterally, clear to auscultation and percussion. No rales, rhonchi or wheezes noted. No increased work of breathing, no retractions or nasal flaring. 21:09 Abdomen/GI: Inspection: abdomen appears normal, Bowel sounds: normal, Palpation: moderate abdominal tenderness, in all quadrants, 21:55 ECG was reviewed by the Attending Physician. ms3 Vital Signs: 20:55 BP 89 / 65; Pulse 123; Resp 16 S; Temp 97.7; Pulse Ox 98% on R/A; Weight 52.16 kg (R); lg3 Height 5 ft. 0 in. (R); 22:02 BP 107 / 68; Pulse 106; Resp 17; Temp 98.4(O); Pulse Ox 95% on R/A; Weight 52.16 kg fu (R); Height 5 ft. 0 in. (R); Pain 0/10; 23:00 BP 98 / 56; Pulse 105; Resp 15; Pulse Ox 93% on R/A; Pain 0/10; fu 22:02 Body Mass Index 22.46 (52.16 kg, 152.4 cm) fu 22:02 Pain Scale: Adult fu 23:00 Pain Scale: Adult fu MDM: 21:07 Patient medically screened. ms3 21:09 Differential diagnosis: Nonspecific abd pain, gastritis, viral gastroenteritis, ms3 gastroenteritis, AAA versus bowel obstruction. 21:54 ED course: Lactate level 2.7. No source of infection identified at this time.. ms3 23:18 Data reviewed: vital signs, nurses notes, lab test result(s), EKG, radiologic studies, ms3 and as a result, I will admit patient. Consideration of Admission/Observation Patient was admitted/placed on observation. Management of patient was discussed with the following: Hospitalist: Brenda Prieto NP, on behalf of Dr Kee. I considered the following discharge prescriptions or medication management in the emergency department Medications were administered in the Emergency Department. See MAR. Independent interpretation of the following test(s) in the Emergency Department EKG: See my EKG interpretation above residential monitor: rate is 102 beats/min, Rhythm is sinus tachycardia, with no ectopy, Interpretation: normal rhythm, tachycardia. Counseling: I had a detailed discussion with the patient and/or guardian regarding the historical points, exam findings, and any diagnostic results supporting the discharge/admit diagnosis, lab results, radiology results, the need for further work-up and treatment in the hospital. 06/03 21:08 Order name: CBC with Diff; Complete Time: 22:00 ms3 06/03 21:08 Order name: CMP; Complete Time: 22:00 ms3 06/03 21:08 Order name: Lipase; Complete Time: 22:00 ms3 06/03 21:08 Order name: Urinalysis w/ reflexes; Complete Time: 22:59 ms3 06/03 21:08 Order name: Blood Culture Adult (2) ms3 06/03 21:08 Order name: Lactate w/ 2H reflex if indic.; Complete Time: 22:00 ms3 06/03 21:08 Order name: Protime (+inr); Complete Time: 22:00 ms3 06/03 21:08 Order name: Ptt, Activated; Complete Time: 22:00 ms3 06/03 21:32 Order name: Glucose, Ancillary Testing; Complete Time: 22:00 EDMS 06/03 23:42 Order name: Magnesium EDCT 06/03 23:42 Order name: Basic Metabolic Panel [facility] 06/03 23:42 Order name: Basic Metabolic Panel [facility] 06/03 23:42 Order name: Comprehensive Metabolic Panel [facility] 06/03 23:42 Order name: Comprehensive Metabolic Panel [facility] 06/04 00:01 Order name: Urinalysis w/ reflexes EDCT 06/04 00:27 Order name: Lactate Sepsis 2 HR Follow-up; Complete Time: 02:21 EDMS 06/03 21:08 Order name: CT Abd/Pelvis - IV Contrast Only; Complete Time: 22:32 ms3 06/03 21:08 Order name: EKG; Complete Time: 21:09 ms3 06/03 23:42 Order name: Clear Liquid EDCT 06/03 21:08 Order name: IV Saline Lock; Complete Time: 21:16 ms3 06/03 21:08 Order name: Labs collected and sent; Complete Time: 21:16 ms3 06/03 21:08 Order name: Accucheck; Complete Time: 21:20 ms3 06/03 21:08 Order name: Cardiac monitoring; Complete Time: 21:35 ms3 06/03 21:08 Order name: EKG - Nurse/Tech; Complete Time: 21:35 ms3 06/03 21:08 Order name: IV Saline Lock - Large Bore; Complete Time: 21:16 ms3 06/03 21:08 Order name: O2 Per Protocol; Complete Time: 21:16 ms3 06/03 21:08 Order name: O2 Sat Monitoring; Complete Time: 21:16 ms3 06/03 21:08 Order name: Vital Signs; Complete Time: 21:16 ms3 EC:55 Rate is 109 beats/min. Rhythm is regular. QRS [place] is Normal. NM interval is normal. ms3 Clinical impression: NSR w/ Non-specific ST/T Changes. Interpreted by me. Reviewed by me. Administered Medications: 21:15 Drug: NS 0.9% IV 1000 ml IV at 1 bolus Per protocol; 1000 mL bolus Route: IV; Rate: 1 fu bolus; Site: right forearm; 22:59 Follow up: Response: No adverse reaction; IV Intake: 1000ml fu 21:15 Drug: Ondansetron IVP 4 mg IVP once; over 2 minutes Route: IVP; Site: right forearm; fu 22:15 Follow up: Response: Nausea is decreased fu Disposition Summary: 06/03/23 23:18 Hospitalization Ordered Notes: Hospitalization Status: Observation ms3 Provider: Mayela Kee ms3 Location: Telemetry/MedSurg (observation) ms3 Condition: Stable ms3 Problem: new ms3 Symptoms: are unchanged ms3 Bed/Room Type: Standard ms3 Room Assignment: [facility](06/03/23 23:51) Diagnosis - Hypotension, unspecified ms3 - Nausea with vomiting, unspecified ms3 - Diarrhea, unspecified ms3 - Abdominal pain, Generalized ms3 Forms: - Medication Reconciliation Form ms3 - SBAR form ms3 - Leadership Thank You Letter ms3 Critical care time excluding procedures: 23:18 Critical care time: Bedside Care: 30 minutes, Consultation: 5 minutes. Total time: 35 ms3 minutes Signatures: Dispatcher [employer] Promise Alonso RN RN Vj Barajas RN RN fu Gibson, Lacie, RN RN [facility] Beni Rodrigues DO DO ms3 Corrections: (The following items were deleted from the chart) 20:59 20:58 PSHx: section; lg3 lg3 23:51 23:18 ms3 mw
--- NOTE | 2023-06-03 23:37 | P.HP ---
Certification for Inpatient Patient admitted to: Observation With expected LOS: <2 Midnights Patient will require the following post-hospital care: None Practitioner: I am a practitioner with admitting privileges, knowledge of patient current condition, hospital course, and medical plan of care. Services: Services provided to patient in accordance with Admission requirements found in Title 42 Section 412.3 of the Code of Federal Regulations Patient History Date of Service: 06/04/23 Reason for admission: Nausea vomiting diarrhea History of Present Illness: 67-year-old female with a past medical history of COPD, GERD, hyperlipidemia, hypertension presents to the emergency room with nausea vomiting. She reports associated weakness. She reports loose stools she reports 3 loose stools today. She reports her son has had similar symptoms of gastroenteritis with vomiting and diarrhea. She denies fever, cough, shortness of breath, chest pain edema. Vital signs on arrival to the emergency room hypotensive Signs: BP 89 / 65; Pulse 123; Resp 16 S; Temp 97.7; Pulse Ox 98% on R/A; EKG5 Rate is 109 beats/min. Rhythm is regular. QRS [place] is Normal. MA interval is normal. ms3 Clinical impression: NSR w/ Non-specific ST/T Changes. Plan to admit for hypotension, gastroenteritis with nausea vomiting diarrhea laboratory evaluation lactic 2.7, glucose 124, CBC leukocytosis third 13.0, neutrophils 83.7, CT of the abdomen pelvis IMPRESSION: No acute intra-abdominal or pelvic finding. Allergies No Known Drug Allergies Allergy (Verified 02/25/23 22:39) Unknown No Known Allergies Allergy (Uncoded 02/28/19 23:32) Unknown Home Medications: Atorvastatin Calcium [Lipitor*] 10 mg PO BEDTIME 05/21/16 Escitalopram Oxalate 20 mg PO DAILY 02/28/19 Fluticasone/Vilanterol [Breo Ellipta 200-25 Mcg INH] 1 each IH DAILY 02/28/19 Omeprazole 20 mg PO BEDTIME 02/28/19 Benzonatate [Tessalon [place]*] 100 mg PO Q8HP PRN 7 Days #20 cap 02/28/23 levoFLOXacin [Levaquin*] 750 mg PO DAILY 5 Days #5 tab 02/28/23 - Past Medical/Surgical History Diabetic: No -: Hyperlipidemia -: Hypertension -: GERD -: Depression -: COPD -: History of abdominal aortic aneurysm, status post stent -: Abdominal aortic aneurysm stent -: Cholecystectomy -: Appendectomy -: Hysterectomy -: Tonsillectomy -: Bladder suspension -: Shoulder Surgery -: Back Surgery Psychosocial/ Personal History: She is , has 3 children, 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 - Family History Sister -: Heart disease, Hypertension, Lung disease, Cancer Father -: Heart disease, Lung disease, Diabetes Mother -: Heart disease, Other (see notes) Notes: COPD Osteoporosis - Social History Alcohol use: Yes CD- Drugs: No Caffeine use: Yes Review of Systems 10-point ROS is otherwise unremarkable Physical Examination - Physical Exam General: Alert, In no apparent distress, Oriented x3 HEENT: Atraumatic, Normocephalic, PERRLA Neck: Supple, 2+ carotid pulse no bruit, JVD not distended Respiratory: Clear to auscultation bilaterally Cardiovascular: No edema, Normal pulses, Regular rate/rhythm Capillary refill: <2 Seconds Gastrointestinal: Normal bowel sounds, Soft and benign Musculoskeletal: No clubbing, No swelling Integumentary: No rashes, No breakdown Neurological: Normal speech, Normal strength at 5/5 x4 extr - Studies Laboratory Data (last 24 hrs) 06/03/23 06/03/23 06/03/23 21:12 21:12 21:12 WBC 13.00 H Hgb 16.0 H Hct 46.8 H Plt Count 258 PT 10.5 INR 0.95 APTT 27.8 Sodium 136 Potassium 3.5 BUN 14 Creatinine 0.68 Glucose 124 H Total Bilirubin 1.0 AST 16 ALT 31 Alkaline Phosphatase 68 Lipase 34 Assessment and Plan - Plan Assessment plan Sepsis with hypotension secondary to gastroenteritis Hypovolemic secondary to dehydration nausea vomiting diarrhea gastroenteritis acute Lactic acidosis secondary to viral gastroenteritis Hypotension acute History of COPD, GERD, hyperlipidemia, hypertension Assessment plan Sepsis with hypotension secondary to gastroenteritis Hypovolemic secondary to dehydration nausea vomiting diarrhea suspected viral Gastroenteritis Hypotension BP 89 / 65; Pulse 123; Resp 16 S; Temp 97.7; Pulse Ox 98% EKG5 Rate is 109 beats/min. Rhythm is regular. QRS [place] is Normal. MA interval is normal. ms3 Clinical impression: NSR w/ Non-specific ST/T Changes. IV fluids,IV antibiotics, as needed antiemetics, CT of the abdomen pelvis IMPRESSION: No acute intra-abdominal or pelvic finding. Lactic acidosis, IV fluids, trend lactic CBC leukocytosis third 13.0, neutrophils 83.7, lactic 2.7 History of COPD As needed nebs O2 2 L as needed keep sats greater than 92% GERD, hyperlipidemia, hypertension Resume appropriate home meds Diet clear liquids Full code DVT Lovenox . Discharge Plan: Home Plan to discharge in: 24 Hours - Advance Directives Does patient have a Living Will: No Does patient have a Durable POA for Healthcare: No - Code Status/Comfort Care Code Status: Full Code Physician Review: Patient Assessed, Agree with Above Assessment and Plan Critical Care: No Time Spent Managing Pts Care (In Minutes): 50
[2023-06-03] MEDS ORDERED: ONDANSETRON 4 MG/2 ML VIAL IV PRN (23:38)
[2023-06-03] MEDS ORDERED: NA CHLORIDE 0.9% 1,000 ML IV SCH (23:45)
[2023-06-03] MEDS ORDERED: ALBUTEROL 2.5 MG/3 ML NEB SOL NEB PRN (23:58)
[2023-06-04] MEDS: METRONIDAZOLE 500mg IVPB 500 MG/100 ML BAG IV SCH ×3 (00:55→17:28)
[2023-06-04 02:00] VITALS: O2SAT 93
[2023-06-04 04:54] VITALS: TEMP 97
[2023-06-04 07:02] LABS: Albumin 2.6 g/dL (3.4-5.0); Bilirubin Total 0.9 mg/dL (0.2-1.0); Potassium 3.4 mEq/L (3.5-5.1); Protein, Total 5.4 g/dL (6.4-8.2)
[2023-06-04] MEDS: ACETAMINOPHEN 500 MG TAB PO PRN ×2 (09:31→17:32)
[2023-06-04] MEDS ORDERED: POTASSIUM CL SA 10 MEQ TAB PO ONE (11:44)
[2023-06-04] MEDS ORDERED: PNEUMOCOCCAL VACCINE 0.5 ML IMVAC ONE (12:00)
[2023-06-04] MEDS ORDERED: INFLUENZA VACCINE (for 6+ mo) 0.5 ML DOSE IMVAC ONE (12:00)
[2023-06-04 15:53] VITALS: BP 109/63
--- NOTE | 2023-06-04 18:13 | P.DS ---
Discharge Date: 06/04/23 Disposition: ROUTINE DISCHARGE Discharge Condition: GOOD Reason for Admission: Nausea vomiting diarrhea Brief History of Present Illness: Pt is a 67-year-old female with a past medical history of COPD, GERD, hyperlipidemia, hypertension presents to the emergency room with nausea vomiting. She reports associated weakness. She reports loose stools she reports 3 loose stools today. She reports her son has had similar symptoms of gastroenteritis with vomiting and diarrhea. She denies fever, cough, shortness of breath, chest pain edema. Initially hypotensive. However after IV hydration patient's hemodynamics are improved. Patient has been using cannabis to alleviate pain issues that she deals with from time to time. Hospital Course: Patient is clinically doing well. Patient tolerated diet. Patient denies any new complaints. Patient is stable for discharge with outpatient follow-up. Vital Signs/Physical Exam: Temp Pulse Resp BP Pulse Ox 97 F 88 16 109/63 92 06/04/23 15:52 06/04/23 15:52 06/04/23 15:52 06/04/23 15:52 06/04/23 15:52 General: Alert, In no apparent distress, Oriented x3 Laboratory Data at Discharge: WBC 13.00 thou/uL (4.3-10.9) H 06/03/23 21:12 Hgb 16.0 g/dL (12.0-15.0) H 06/03/23 21:12 Hct 46.8 % (36.0-45.0) H 06/03/23 21:12 Plt Count 258 thou/uL (152-406) 06/03/23 21:12 PT 10.5 SECONDS (9.5-12.5) 06/03/23 21:12 INR 0.95 06/03/23 21:12 APTT 27.8 SECONDS (24.3-36.9) 06/03/23 21:12 Sodium 139 mEq/L (136-145) 06/04/23 05:38 Potassium 3.4 mEq/L (3.5-5.1) L 06/04/23 05:38 BUN 7 mg/dL (7-18) 06/04/23 05:38 Creatinine 0.50 mg/dL (0.55-1.02) L 06/04/23 05:38 Glucose 95 mg/dL (74-106) 06/04/23 05:38 Magnesium 2.0 mg/dL (1.6-2.4) 06/04/23 05:38 Total Bilirubin 0.9 mg/dL (0.2-1.0) 06/04/23 05:38 AST 13 U/L (15-37) L 06/04/23 05:38 ALT 25 U/L (13-56) 06/04/23 05:38 Alkaline Phosphatase 51 U/L (45-117) D 06/04/23 05:38 Lipase 34 U/L (13-75) 06/03/23 21:12 Home Medications: Atorvastatin Calcium [Lipitor*] 10 mg PO BEDTIME 05/21/16 Escitalopram Oxalate 20 mg PO DAILY 02/28/19 Fluticasone/Vilanterol [Breo Ellipta 200-25 Mcg INH] 1 each IH DAILY 02/28/19 Omeprazole 20 mg PO BEDTIME 02/28/19 Benzonatate [Tessalon Perle*] 100 mg PO Q8HP PRN 7 Days #20 cap 02/28/23 ALPRAZolam [Xanax] 0.5 mg PO BID PRN #30 tab 06/04/23 Ondansetron [Zofran] 4 mg PO Q6H PRN #30 tab 06/04/23 New Medications: ALPRAZolam [Xanax] 0.5 mg PO BID PRN #30 tab PRN Reason: Anxiety Ondansetron [Zofran] 4 mg PO Q6H PRN #30 tab PRN Reason: Nausea / Vomiting Physician Discharge Instructions: -DC IV and DC home -Follow-up with PCP in 1 to 2 weeks -Follow-up with Gastroenterology in 1 to 2 weeks -Please call Dr. Kee at [phone] if any questions regarding hospital stay -Please call nursing station at [phone] if any nursing or medication questions -Return to the emergency room if symptoms worsen Diet: Regular Activity: Fall precautions Followup: Herman Watkins MD [Primary Care Provider] - Time spent managing pt's care (in minutes): 35
--- NOTE | 2023-06-05 12:32 | EKG ---
Test Date: 2023-06-03 Test Time: 21:30:04 Tariff Expert: CONNIE MEASUREMENT RESULTS: Intervals: Rate: 109 OR: 124 QRSD: 66 QT: 296 QTc: 398 [place]: P: 38 OR: 124 QRS: 29 T: 57 INTERPRETIVE STATEMENTS: Sinus tachycardia Nonspecific ST and T wave abnormality Abnormal ECG Compared to ECG 05/20/2023 14:10:31 ST (T wave) deviation now present Sinus bradycardia no longer present T-wave abnormality no longer present Electronically Signed On 06-05-23 12:30:19 CDT by Thien Joya
== END 2023-06-04 19:15 | disposition home or self-care (01) ==
LOC: ER 20:46 → 2ND 23:37
PROVIDERS: ADMIT Hospitalist; ATTEND Hospitalist
DX: K52.9 Noninfective gastroenteritis and colitis, unspecified (principal); A41.9 Sepsis, unspecified organism; R11.2 Nausea with vomiting, unspecified; R19.7 Diarrhea, unspecified; E86.1 Hypovolemia; E87.20 Acidosis, unspecified; J44.9 Chronic obstructive pulmonary disease, unspecified; K21.9 Gastro-esophageal reflux disease without esophagitis; E78.5 Hyperlipidemia, unspecified; I10 Essential (primary) hypertension; R53.1 Weakness; I95.9 Hypotension, unspecified; D72.829 Elevated white blood cell count, unspecified; Z82.49 Family history of ischemic heart disease and other diseases of the circulatory system; Z83.6 Family history of other diseases of the respiratory system; Z80.9 Family history of malignant neoplasm, unspecified; F12.90 Cannabis use, unspecified, uncomplicated
CPT/HCPCS: 87040 ×2; 85025; 36415 ×2; 83735; 85610; 82947; 83605 ×2; 85730; 81003; 83690; 80053 ×2; 74177; Q9967; J2405; J7030 ×2; 93005; 96374; 99285; G0378

== ENCOUNTER 2024-02-06 08:14 | Emergency (ER) | payer OTHER, BC ==
[2024-02-06 09:39] LABS: Absolute Basophils 0.1 K/uL (0-0.5); Absolute Eosinophils 0.1 K/uL (0-0.5); Absolute Lymphocytes (CBC) 1.6 K/uL (0.7-4.9); Absolute Monocytes 1.6 K/uL (0.1-1.3); Basophils % 0.8 % (0-1.3); Eosinophils % 1.2 % (0-4.4); Hematocrit 44.7 % (36.0-45.0); Hemoglobin 14.7 g/dL (12.0-15.0); Lymphocytes % 15.3 % (15.3-44.8); MCH 31.7 pg (27.0-35.0); MCV 96.2 fL (80-100); MPV 7.1 fL (7.6-11.3); Monocytes % 15.2 % (3.3-12.3); Neutrophils % 67.5 % (41.7-73.7); Platelets 317 thou/uL (152-406); RBC Red Blood Cell Count 4.64 M/uL (3.86-4.86); Red Cell Distribution Width 14.8 % (12.1-15.2)
[2024-02-06 09:59] LABS: Albumin/Globulin Ratio 0.8 (1.1-1.8); Anion Gap 7.3 mEq/L (5.0-15.0); Globulin 3.8 g/dL (2.3-3.5); Potassium 3.3 mEq/L (3.5-5.1); Protein, Total 6.8 g/dL (6.4-8.2)
[2024-02-06 10:05] LABS: PT Prothrombin Time 11.5 SECONDS (9.5-12.5); PTT, Activated Partial Thromb 33.4 SECONDS (24.3-36.9); Protime INR 1.05
--- NOTE | 2024-02-06 10:37 | RAD REPORT ---
EXAM DESCRIPTION: RADChest Single View02/06/2024 9:38 am CLINICAL HISTORY: COUGH COMPARISON: Chest Single View dated 05/20/2023; Chest Pa And Lat (2 Views) dated 04/05/2023; Chest Sing le View dated 02/28/2023; Chest Single View dated 02/25/2023 TECHNIQUE: Portable AP view of the chest. FINDINGS: Postsurgical changes again seen on the right, with some hyperlucency in the upper right he mithorax, and layering opacity with blunting of the right costophrenic angle, which may relate to ate lectasis or chronic small effusion. No pneumothorax or other sizable effusion. The cardiomediastinal contours are unremarkable. Spinal stimulator electrodes in place. IMPRESSION: No acute cardiopulmonary process. No significant interval change.
[2024-02-06] MEDS ORDERED: POTASSIUM CL SA 10 MEQ TAB PO ONE (10:57)
[2024-02-06 11:09] LABS: Specific Gravity 1.008 (1.005-1.030); Sqamous Epithelial None Seen /HPF (None Seen); Urine Bacteria <20 /HPF (<20); Urine Bilirubin NEGATIVE (Negative); Urine Blood Negative (Negative); Urine Clarity Clear (Clear); Urine Color Light-Yellow (Yellow); Urine Culture Reflex Order NOT NEEDED; Urine Glucose NEGATIVE (Negative); Urine Ketones NEGATIVE (Negative); Urine Microscopic Reflex YN ORDER UMIC; Urine Nitrite NEGATIVE (Negative); Urine Protein NEGATIVE (Negative); Urine RBC <5 /HPF (None Seen); Urine Urobilinogen Normal (Normal); Urine WBC <5 /HPF (<5); Urine pH 6.5 (5.0-7.0)
--- NOTE | 2024-02-06 11:49 | EDPHYS ---
Physician Documentation [facility] Name: Amanda Malik Age: 68 yrs Sex: Female : 1955 Arrival Date: 02/06/2024 Time: 08:14 Bed 5 Private MD: ED Physician Beni Rodrigues HPI: 02/05 09:35 This 68 yrs old Female presents to ER via Ambulatory with complaints of Vomiting. ms3 09:35 68-year-old female with past medical history of AAA, COPD, GERD, hyperlipidemia, ms3 hypertension presents to the emergency department for cough that is productive of yellow phlegm, body aches, headaches. Patient states she began vomiting this morning. Patient endorses fever and chills. Patient denies any alleviating or inciting factors. Historical: - Allergies: 08:22 No Known Allergies; ap3 - PMHx: 08:22 AAA; COPD; GERD; High Cholesterol; Hypertension; ap3 - PSHx: 08:23 Appendectomy; back; breast reduction; hysterectomy; neck; Shoulder; ap3 - Immunization history:: Client reports receiving the 2nd dose of the Covid vaccine. - Infectious Disease History:: Denies. - Social history:: Smoking status: Patient denies any tobacco usage or history of. ROS: 09:35 Cardiovascular: Negative for chest pain, and palpitations. ms3 09:35 Skin: Negative for injury, rash, and discoloration, 09:35 Constitutional: Positive for body aches, chills, fever, 09:35 Respiratory: Positive for cough, 09:35 Abdomen/GI: Positive for nausea and vomiting, Exam: 09:35 Constitutional: This is a well developed, well nourished patient who is awake, alert, ms3 and in no acute distress. Head/Face: Normocephalic, atraumatic. Neck: Trachea midline, no cervical lymphadenopathy. Supple, full range of motion without nuchal rigidity, or vertebral point tenderness. No Meningismus. Chest/axilla: Normal chest wall appearance and motion. Nontender with no deformity. Cardiovascular: Regular rate and rhythm with a normal S1 and S2. No gallops, murmurs, or rubs. Normal PMI, no JVD. No pulse deficits. Respiratory: Lungs have equal breath sounds bilaterally, clear to auscultation and percussion. No rales, rhonchi or wheezes noted. No increased work of breathing, no retractions or nasal flaring. Abdomen/GI: Soft, non-tender, with normal bowel sounds. No distension or tympany. No guarding or rebound. No evidence of tenderness throughout. Skin: Warm, dry with normal turgor. Normal color with no rashes, no lesions, and no evidence of cellulitis. 10:07 ECG was reviewed by the Attending Physician. ms3 Vital Signs: 08:21 BP 134 / 92; Pulse 101; Resp 21; Temp 97.7(O); Pulse Ox 96% ; Weight 55.79 kg; Height 5 ap3 ft. 0 in. ; 09:20 BP 114 / 80; Pulse 90; Resp 18; Pulse Ox 96% on R/A; ko1 10:08 BP 118 / 68; Pulse 90; Resp 16; Pulse Ox 95% ; ko1 11:55 BP 150 / 90; Pulse 87; Resp 18; Pulse Ox 94% ; nj1 08:21 Body Mass Index 24.02 (55.79 kg, 152.4 cm) ap3 MDM: 08:41 Patient medically screened. ms3 09:35 Differential diagnosis: Nonspecific abd pain, gastritis, viral gastroenteritis, ms3 Pneumonia. 16:42 Data reviewed: vital signs, nurses notes, lab test result(s), EKG, radiologic studies, ms3 and as a result, I will discharge patient. I considered the following discharge prescriptions or medication management in the emergency department Medications were administered in the Emergency Department. See MAR. Independent interpretation of the following test(s) in the Emergency Department X-Ray: My interpretation is Chest x-ray image reviewed by me does not reveal pneumonia. Care significantly affected by the following chronic conditions: Hypertension. Counseling: I had a detailed discussion with the patient and/or guardian regarding the historical points, exam findings, and any diagnostic results supporting the discharge/admit diagnosis, lab results, radiology results, the need for outpatient follow up, to return to the emergency department if symptoms worsen or persist or if there are any questions or concerns that arise at home. Special discussion: I discussed with the patient/guardian in detail that at this point there is no indication for admission to the hospital. It is understood, however, that if the symptoms persist or worsen the patient needs to return immediately for re-evaluation. ED course: Discussed labs and chest x-ray finding with patient. Patient tolerating p.o., Improved, alert and orient x 4, no apparent distress, nontoxic-appearing. Patient to follow-up with primary care physician in 2 to 3 days. Patient understands and agrees with plan. All questions were answered. Return precautions discussed include worsening symptoms, or any other concerns. 02/05 09:07 Order name: Blood Culture Adult (2) ms3 02/05 09:07 Order name: CBC with Diff; Complete Time: 09:55 ms3 02/05 09:07 Order name: CMP; Complete Time: 10:32 ms3 02/05 09:07 Order name: Lactate w/ 2H reflex if indic.; Complete Time: 10:32 ms3 02/05 09:07 Order name: Protime (+inr); Complete Time: 10:32 ms3 02/05 09:07 Order name: Ptt, Activated; Complete Time: 10:32 ms3 02/05 09:07 Order name: Urinalysis w/ reflexes; Complete Time: 11:14 ms3 02/05 09:07 Order name: Chest Single View XRAY; Complete Time: 11:14 ms3 02/05 09:07 Order name: EKG; Complete Time: 09:08 ms3 02/05 09:07 Order name: Accucheck; Complete Time: 09:46 ms3 02/05 09:07 Order name: Cardiac monitoring; Complete Time: 09:08 ms3 02/05 09:07 Order name: EKG - Nurse/Tech; Complete Time: 09:46 ms3 02/05 09:07 Order name: IV Saline Lock - Large Bore; Complete Time: 09:36 ms3 02/05 09:07 Order name: Labs collected and sent; Complete Time: 09:36 ms3 02/05 09:07 Order name: O2 Per Protocol; Complete Time: 09:08 ms3 02/05 09:07 Order name: O2 Sat Monitoring; Complete Time: 09:08 ms3 02/05 09:07 Order name: Vital Signs; Complete Time: 09:08 ms3 EC:07 Rate is 85 beats/min. Rhythm is regular. QRS [place] is Normal. [place] interval is normal. QRS ms3 interval is normal. QT interval is normal. Clinical impression: Normal ECG. Interpreted by me. Reviewed by me. Administered Medications: 10:59 Drug: Potassium Chloride PO 20 mEq PO once Route: PO; ko1 11:59 Follow up: Response: No adverse reaction nj1 Disposition Summary: 02/06/24 11:48 Discharge Ordered Notes: Location: Home ms3 Condition: Stable ms3 Diagnosis - Cough ms3 - Vomiting ms3 - Myalgia ms3 Followup: ms3 - With: Private Physician - When: 2 - 3 days - Reason: Recheck today's complaints Discharge Instructions: - Discharge Summary Sheet ms3 - Cough, Adult, [id number] ms3 - Vomiting, Adult ms3 Forms: - Medication Reconciliation Form ms3 - Antibiotic Education ms3 - Prescription Opioid Use ms3 - Patient Portal Instructions ms3 - Leadership Thank You Letter ms3 Prescriptions: - ondansetron 4 mg Oral Tablet,disintegrating - take 1 tablet ORAL route every 8 hours as needed for nausea and vomiting; 15 ms3 tablet; Refills: 0, Product Selection Permitted - benzonatate 100 mg Oral capsule - take 1 capsule ORAL route 3 times per day; 20 capsule; Refills: 0, Product ms3 Selection Permitted Signatures: Dispatcher [employer] Emely Mazariegos RN RN ap3 Beni Rodrigues DO DO ms3 Daniela Langston RN RN ko1 Brooke Bartholomew RN nj1
--- NOTE | 2024-02-06 11:49 | ER ---
Nurse's Notes [facility] Name: Amanda Malik Age: 68 yrs Sex: Female : 1955 Arrival Date: 02/06/2024 Time: 08:14 Bed 5 Private MD: Diagnosis: Cough;Vomiting;Myalgia Presentation: 02/05 08:21 Chief complaint: Patient states: she has been vomiting, has had fevers, and has been ap3 having a productive cough for approx 3 days. patient reports her symptoms are not improving. Coronavirus screen: Client presents with at least one sign or symptom that may indicate coronavirus-19. Ebola Screen: No symptoms or risks identified at this time. Initial Sepsis Screen: Does the patient meet any 2 criteria? HR > 90 bpm. Does the patient have a suspected source of infection? No. Patient's initial sepsis screen is negative. Risk Assessment: Do you want to hurt yourself or someone else? Patient reports no desire to harm self or others. Onset of symptoms is unknown. 08:21 Method Of Arrival: Ambulatory ap3 08:21 Acuity: EMILY 3 ap3 Triage Assessment: 08:23 General: Appears ill, Behavior is calm, cooperative, appropriate for age, Reports ap3 chills for fever for feeling ill for fatigue for. Pain: Denies pain. Neuro: Level of Consciousness is awake, alert, obeys commands, Oriented to person, place, time, situation, Appropriate for age Reports headache. Cardiovascular: Patient's skin is warm and dry. Respiratory: Reports cough that is productive, Airway is patent Respiratory effort is even, unlabored, Respiratory pattern is regular, symmetrical. GI: Reports nausea, vomiting. Historical: - Allergies: 08:22 No Known Allergies; ap3 - PMHx: 08:22 AAA; COPD; GERD; High Cholesterol; Hypertension; ap3 - PSHx: 08:23 Appendectomy; back; breast reduction; hysterectomy; neck; Shoulder; ap3 - Immunization history:: Client reports receiving the 2nd dose of the Covid vaccine. - Infectious Disease History:: Denies. - Social history:: Smoking status: Patient denies any tobacco usage or history of. Screenin:24 Abuse screen: Denies threats or abuse. Nutritional screening: No deficits noted. ap3 Tuberculosis screening: No symptoms or risk factors identified. 09:00 [facility] ED Fall Risk Assessment (Adult) History of falling in the last 3 months, ko1 including since admission No falls in past 3 months (0 pts) Confusion or Disorientation No (0 pts) Intoxicated or Sedated No (0 pts) Impaired Gait No (0 pts) Mobility Assist Device Used No (0 pt) Altered Elimination No (0 pt) Score/Fall Risk Level 0 - 2 = Low Risk Oriented to surroundings, Maintained a safe environment, Educated pt \T\ family on fall prevention, incl call for assistance when getting out of bed, Assessed \T\ reinforced patient's understanding of fall precautions, Provided non-skid footwear, Hourly rounding (assess needs \T\ fall precautionary measures) done, Used ambulatory aids as needed (educated on \T\ assisted with). Assessment: 09:00 General: Appears ill, Behavior is calm, cooperative, appropriate for age. Pain: Denies ko1 pain. Neuro: No deficits noted. Cardiovascular: No deficits noted. Respiratory: No deficits noted. GI: Reports nausea, vomiting. : No deficits noted. EENT: No deficits noted. Derm: No deficits noted. Musculoskeletal: No deficits noted. 11:55 Reassessment: Patient appears in no apparent distress at this time. Patient is alert, nj1 oriented x 3, equal unlabored respirations, skin warm/dry/pink. Patient states feeling better. Vital Signs: 08:21 BP 134 / 92; Pulse 101; Resp 21; Temp 97.7(O); Pulse Ox 96% ; Weight 55.79 kg; Height 5 ap3 ft. 0 in. ; 09:20 BP 114 / 80; Pulse 90; Resp 18; Pulse Ox 96% on R/A; ko1 10:08 BP 118 / 68; Pulse 90; Resp 16; Pulse Ox 95% ; ko1 11:55 BP 150 / 90; Pulse 87; Resp 18; Pulse Ox 94% ; nj1 08:21 Body Mass Index 24.02 (55.79 kg, 152.4 cm) ap3 ED Course: 08:17 Patient arrived in ED. mr 08:21 Beni Rodrigues DO is Attending Physician. ms3 08:22 Triage completed. ap3 08:24 Arm band placed on right wrist. ap3 08:25 Daniela Langston, RN is Primary Nurse. ko1 08:32 Patient has correct armband on for positive identification. Bed in low position. Call ap3 light in reach. Adult w/ patient. Client placed on continuous cardiac and pulse oximetry monitoring. NIBP monitoring applied. wildlife officer on. Pulse ox on. NIBP on. Door closed. Noise minimized. Warm blanket given. Pillow given. 08:33 Provided Education on: call light education. ap3 09:00 No provider procedures requiring assistance completed. Initial lab(s) drawn, by me, ko1 sent to lab. EKG done, by ED staff, reviewed by Beni Rodrigues DO. Inserted saline lock: 22 gauge in right forearm, using aseptic technique. Blood collected. 09:36 Blood Culture Adult (2) Sent. ko1 09:37 CBC with Diff Sent. ko1 09:37 CMP Sent. ko1 09:37 Lactate w/ 2H reflex if indic. Sent. ko1 09:37 Protime (+inr) Sent. ko1 09:37 Ptt, Activated Sent. ko1 09:40 Chest Single View XRAY In Process Unspecified. EDMS 09:45 First set of blood cultures drawn by me, Second set of blood cultures drawn by me. ko1 11:04 Urine collected: clean catch specimen, clear. ko1 11:04 Urinalysis w/ reflexes Sent. ko1 11:55 IV discontinued, intact, bleeding controlled, Pressure dressing applied. nj1 Administered Medications: 10:59 Drug: Potassium Chloride PO 20 mEq PO once Route: PO; ko1 11:59 Follow up: Response: No adverse reaction nj1 Medication: 09:00 VIS not applicable for this client. ko1 Outcome: 11:48 Discharge ordered by . ms3 11:55 Discharged to home ambulatory, nj1 11:55 Condition: stable 11:55 Discharge instructions given to patient, Instructed on discharge instructions, follow up and referral plans. medication usage, Demonstrated understanding of instructions, follow-up care, medications, Prescriptions given X 2, 11:57 Patient left the ED. nj1 Signatures: Dispatcher [employer] EDNY RicoDorina, Karthik Reg mr JaclynallaEmely, RN RN ap3 Beni Rodrigues DO DO ms3 Daniela Langston, RN RN ko1 Brooke Bartholomew RN RN nj1
[2024-02-06 12:22] VITALS: BP 118/68; TEMP 97.7; O2SAT 95
--- NOTE | 2024-02-06 14:09 | EKG ---
Test Date: 2024-02-06 Test Time: 09:43:13 Vice President Of Consulting Services: LIZZY MEASUREMENT RESULTS: Intervals: Rate: 85 OR: 124 QRSD: 68 QT: 362 QTc: 430 [place]: P: 76 OR: 124 QRS: 75 T: 80 INTERPRETIVE STATEMENTS: Normal sinus rhythm Normal ECG Compared to ECG 06/03/2023 21:30:04 Sinus tachycardia no longer present ST (T wave) deviation no longer present Electronically Signed On 02-06-24 14:09:21 CDT by Thien Joya
== END 2024-02-06 11:57 | disposition home or self-care (01) ==
LOC: ER 08:14
DX: R05.9 Cough, unspecified (principal); R11.2 Nausea with vomiting, unspecified; M79.10 Myalgia, unspecified site; R51.9 Headache, unspecified
CPT/HCPCS: 36415; 71045; 80053; 81001; 83605; 85025; 85610; 85730; 87040; 93005; 99285

== ENCOUNTER 2024-06-12 08:03 | Day surgery (SDC) | payer OTHER, BC ==
[2024-06-12 08:44] LABS: Platelets 258 thou/uL (152-406)
[2024-06-12 08:57] LABS: PT Prothrombin Time 10.3 SECONDS (9.4-12.5); Protime INR 0.92
[2024-06-12 09:22] VITALS: BMI 24.4
[2024-06-12] MEDS: DIAZEPAM 5 MG TABLET ONE (11:58)
[2024-06-12 14:58] VITALS: BP 140/66; TEMP 97.3; O2SAT 97
--- NOTE | 2024-06-12 21:10 | RAD REPORT ---
Exam: Myelography Lumbar Clinical History: Back pain/radiculopathy Consent: Benefits and risks were explained to the patient. Informed consent was obtained. Timeout pro cedure was performed. Complication: None immediate. Risks, benefits and alternatives to the procedure explained to the patient performed Skin and deeper tissues anesthetized with lidocaine. Under radiographic guidance, a 22-gauge spinal needle was advanced into the thecal sac at the L3-4 le stew. 12 cc 200 Isovue-300 administered the sac. Frontal and lateral views of the lumbar spine were obtained. The patient was then transferred to the CT department for additional imaging Patient experienced no immediate complication Fluoroscopy time 1.1 minute. 2 fluoroscopic spot images obtained Impression: Lumbar myelogram
--- NOTE | 2024-06-12 21:39 | RAD REPORT ---
EXAMINATION: CT LUMBAR SPINE WITHOUT CONTRAST CLINICAL INDICATION: Back pain and radiculopathy TECHNIQUE: Axial CT images were obtained through the lumbar spine in soft tissue and bone windows wit hout intravenous contrast. Coronal and Sagittal reformatted images were created from the data set. One or more of the following dose reduction techniques were used: Automated exposure control, adjustm ent of the mA and/ or kV according to patient size, and/or iterative reconstruction. Unless otherwise specified, incidental findings do not require dedicated imaging follow-up. COMPARISON: 2019 FINDINGS: For labeling purposes 4 lumbar vertebra are present. T12-L1 unremarkable Mild to moderate old compression deformity L2 vertebral body. Pedicular screws united by rods have been placed L2-S1. The anterior aspects of the right and left pedicular screws at L2 extends into the disc. Minimal retr opulsion of bone L2. Disc bulge is present. Mild narrowing of the thecal sac. Mild narrowing left neural foramina. Laminectomies L2, L3 and L4. Bone plugs have been placed L2-3, L3-4 and L4 S1. No significant narrowing of the sac L2-3 and L3-4. Disc bulge L4-S1 mildly narrows the thecal sac to 9.5. Neural foramina patent. Aorto biiliac stent has been placed into an aortic aneurysm. IMPRESSION: The anterior aspects of the right and left pedicular screws at L2 extends into the disc. Post surgical changes lumbar spine and sacrum. No high-grade central/foraminal stenosis seen
== END 2024-06-12 14:55 | disposition home or self-care (01) ==
LOC: DS 08:03
PROVIDERS: ATTEND Orthopaedic Surgery
DX: M51.372 Other intervertebral disc degeneration, lumbosacral region with discogenic back pain and lower extremity pain (principal); M54.9 Dorsalgia, unspecified; M54.16 Radiculopathy, lumbar region
CPT/HCPCS: 36415; 62304; 72131; 85049; 85610; 85730

== ENCOUNTER 2024-09-21 14:04 | Emergency (ER) | payer OTHER, BC ==
--- NOTE | 2024-09-21 16:06 | ER ---
Nurse's Notes [facility] Name: Amanda Malik Age: 69 yrs Sex: Female : 1955 Arrival Date: 09/21/2024 Time: 14:04 Bed 10 Private MD: Diagnosis: Sprain of ankle Presentation: 09/21 14:43 Chief complaint: Patient states: Tripped on purse just RHIT. R knee and R ankle pain ll1 now. Abrasion noted R knee, no active bleeding. No head injury or LOC. Coronavirus screen: Client denies travel out of the [place] in the last 14 days. At this time, the client does not indicate any symptoms associated with coronavirus-19. Ebola Screen: Patient denies travel to an Ebola-affected area in the 21 days before illness onset. Initial Sepsis Screen: Does the patient meet any 2 criteria? No. Patient's initial sepsis screen is negative. Does the patient have a suspected source of infection? No. Patient's initial sepsis screen is negative. Risk Assessment: Do you want to hurt yourself or someone else? Patient reports no desire to harm self or others. Onset of symptoms was September 21, 2024. 14:43 Method Of Arrival: Wheelchair ll1 14:43 Acuity: EMILY 4 ll1 Triage Assessment: 14:43 General: Appears uncomfortable, Behavior is calm, cooperative, appropriate for age. ll1 Pain: Complains of pain in R knee and ankle Quality of pain is described as aching. Derm: Reports abrasion R knee. Musculoskeletal: Reports pain in R knee and R ankle. Injury Description: Bruise. Historical: - Allergies: 14:42 No Known Drug Allergies; ll1 - PMHx: 14:42 AAA; COPD; GERD; High Cholesterol; Hypertension; ll1 - PSHx: 14:42 Appendectomy; back; breast reduction; hysterectomy; neck; Shoulder; ll1 - Immunization history:: Adult Immunizations up to date. - Infectious Disease History:: Denies. - Social history:: Smoking status: Patient denies any tobacco usage or history of. Screenin:29 [facility] ED Fall Risk Assessment (Adult) History of falling in the last 3 months, ha1 including since admission Yes- single mechanical fall (1 pt) Confusion or Disorientation No (0 pts) Intoxicated or Sedated No (0 pts) Impaired Gait Yes (1 pt) Mobility Assist Device Used Yes (1 pt) Altered Elimination No (0 pt) Score/Fall Risk Level 3 or more points = High Risk Oriented to surroundings, Maintained a safe environment, Educated pt \T\ family on fall prevention, incl call for assistance when getting out of bed, Hourly rounding (assess needs \T\ fall precautionary measures) done, Used ambulatory aids as needed (educated on \T\ assisted with). Abuse screen: Denies threats or abuse. Denies injuries from another. Nutritional screening: No deficits noted. Tuberculosis screening: No symptoms or risk factors identified. Assessment: 15:34 Reassessment: No changes from previously documented assessment. Patient and/or family ll1 updated on plan of care and expected duration. Pain level reassessed. 16:29 Reassessment: Patient and/or family updated on plan of care and expected duration. Pain ha1 level reassessed. Patient is alert, oriented x 3, equal unlabored respirations, skin warm/dry/pink. Patient states feeling better. Patient states symptoms have improved. Vital Signs: 14:43 BP 115 / 73; Pulse 57; Resp 16; Temp 97; Pulse Ox 96% ; Weight 56.7 kg; Height 5 ft. 0 ll1 in. ; Pain 10/10; 16:29 BP 117 / 75; Pulse 59; Resp 17 S; Pulse Ox 96% on R/A; ha1 14:43 Body Mass Index 24.41 (56.70 kg, 152.4 cm) ll1 14:43 Pain Scale: Adult ll1 ED Course: 14:06 Patient arrived in ED. al6 14:37 Melvi Madden MD is Attending Physician. sp3 14:38 Patient has correct armband on for positive identification. Bed in low position. Call ha1 light in reach. Side rails up X 1. 14:43 Arm band placed on. ll1 14:44 Triage completed. ll1 15:30 Patient placed in an exam room, on a stretcher. ha1 16:04 Ankle Right 3 View XRAY In Process Unspecified. EDMS 16:04 Knee Right 3 View XRAY In Process Unspecified. EDMS 16:05 Raul Joyce MD is Referral Physician. sp3 16:09 Radha Holly RN is Primary Nurse. ha1 16:30 Provided Education on: use of crotches . ha1 16:30 No provider procedures requiring assistance completed. Patient did not have IV access ha1 during this emergency room visit. Administered Medications: 16:23 Drug: Acetaminophen PO 650 mg PO once Route: PO; ha1 16:29 Follow up: Response: No adverse reaction; Marked relief of symptoms ha1 Medication: 16:31 VIS not applicable for this client. ha1 Outcome: 16:06 Discharge ordered by . sp3 16:30 Discharged to home via wheelchair, ha1 16:30 Condition: stable 16:30 Discharge instructions given to patient, Instructed on discharge instructions, follow up and referral plans. Demonstrated understanding of instructions, follow-up care, 16:31 Patient left the ED. ha1 Signatures: Dispatcher [employer] Gabi Luna RN RN ll1 Melvi Madden MD MD sp3 Radha Holly RN RN ha1 Stephany [email or web address]
--- NOTE | 2024-09-21 16:06 | EDPHYS ---
Physician Documentation [facility] Name: Amanda Malik Age: 69 yrs Sex: Female : 1955 Arrival Date: 09/21/2024 Time: 14:04 Bed 10 Private MD: ED Physician Melvi Madden HPI: 09/21 16:01 This 69 yrs old Female presents to ER via Wheelchair with complaints of Ankle Injury, sp3 Knee Injury. 16:01 69-year-old female with a history of prior AAA, COPD, hyperlipidemia, hypertension sp3 presents with right knee and ankle injury after tripping and falling onto her right lower extremity. She denies full fall and denies hitting her head or any other part of her body. No LOC, medical prodrome, or ongoing symptoms other than the right knee and ankle pain. Her ankle hurts more than her knee particularly laterally. She states she cannot put weight on it but it is painful. No prior injury to that ankle. Review of systems otherwise negative for headache, head injury, neck pain, chest pain, shortness of breath, back pain, hip pain, left extremity pain, upper extremity pain or any other signs or symptoms on ROS at this time.. Historical: - Allergies: 14:42 No Known Drug Allergies; ll1 - PMHx: 14:42 AAA; COPD; GERD; High Cholesterol; Hypertension; ll1 - PSHx: 14:42 Appendectomy; back; breast reduction; hysterectomy; neck; Shoulder; ll1 - Immunization history:: Adult Immunizations up to date. - Infectious Disease History:: Denies. - Social history:: Smoking status: Patient denies any tobacco usage or history of. ROS: 16:03 Constitutional: Negative for fever, chills, and weight loss, Eyes: Negative for injury, sp3 pain, redness, and discharge, ENT: Negative for injury, pain, and discharge, Neck: Negative for injury, pain, and swelling, Cardiovascular: Negative for chest pain, palpitations, and edema, Respiratory: Negative for shortness of breath, cough, wheezing, and pleuritic chest pain, Abdomen/GI: Negative for abdominal pain, nausea, vomiting, diarrhea, and constipation, Back: Negative for injury and pain, Skin: Negative for injury, rash, and discoloration, Neuro: Negative for headache, weakness, numbness, tingling, and seizure, Psych: Negative for depression, anxiety, suicide ideation, homicidal ideation, and hallucinations, Allergy/Immunology: Negative for hives, rash, and allergies, Endocrine: Negative for neck swelling, polydipsia, polyuria, polyphagia, and marked weight changes, Hematologic/Lymphatic: Negative for swollen nodes, abnormal bleeding, and unusual bruising, 16:03 All other systems are negative, Exam: 16:03 Constitutional: This is a well developed, well nourished patient who is awake, alert, sp3 and in no acute distress. Head/Face: Normocephalic, atraumatic. Eyes: Pupils equal round and reactive to light, extra-ocular motions intact. Lids and lashes normal. Conjunctiva and sclera are non-icteric and not injected. Cornea within normal limits. Periorbital areas with no swelling, redness, or edema. Neck: Trachea midline, no thyromegaly or masses palpated, and no cervical lymphadenopathy. Supple, full range of motion without nuchal rigidity, or vertebral point tenderness. No Meningismus. Chest/axilla: Normal chest wall appearance and motion. Nontender with no deformity. No lesions are appreciated. Cardiovascular: Regular rate and rhythm with a normal S1 and S2. No gallops, murmurs, or rubs. Normal PMI, no JVD. No pulse deficits. Respiratory: Lungs have equal breath sounds bilaterally, clear to auscultation and percussion. No rales, rhonchi or wheezes noted. No increased work of breathing, no retractions or nasal flaring. Abdomen/GI: Soft, non-tender, with normal bowel sounds. No distension or tympany. No guarding or rebound. No evidence of tenderness throughout. Back: No spinal tenderness. No costovertebral tenderness. Full range of motion. Skin: Warm, dry with normal turgor. Normal color with no rashes, no lesions, and no evidence of cellulitis. Neuro: Awake and alert, GCS 15, oriented to person, place, time, and situation. Cranial nerves II-XII grossly intact. Motor strength 5/5 in all extremities. Sensory grossly intact. Cerebellar exam normal. Normal gait. Psych: Awake, alert, with orientation to person, place and time. Behavior, mood, and affect are within normal limits. 16:03 Musculoskeletal/extremity: Right ankle lateral swelling. No pain over the malleoli. No pain at the base of the fifth metatarsal. Neurovascularly intact at the foot. Right knee normal exam except mild pain over the patella where abrasion is present.. Vital Signs: 14:43 BP 115 / 73; Pulse 57; Resp 16; Temp 97; Pulse Ox 96% ; Weight 56.7 kg; Height 5 ft. 0 ll1 in. ; Pain 10/10; 16:29 BP 117 / 75; Pulse 59; Resp 17 S; Pulse Ox 96% on R/A; ha1 14:43 Body Mass Index 24.41 (56.70 kg, 152.4 cm) ll1 14:43 Pain Scale: Adult ll1 MDM: 14:43 Medical Screening Exam initiated sp3 16:04 Data reviewed: vital signs, nurses notes, radiologic studies. ED course: 69-year-old sp3 female with mechanical ground-level fall with right lower extremity pain at knee and ankle. Differential diagnosis includes abrasion versus contusion versus fracture. X-rays demonstrate no fracture. Will treat as ankle sprain with RICE therapy, crutches and OTC meds. Patient only request Tylenol for pain control here in the ED.. 09/21 15:19 Order name: Ankle Right 3 View XRAY ll1 09/21 15:19 Order name: Knee Right 3 View XRAY ll1 09/21 16:05 Order name: Crutch Training; Complete Time: 16:10 sp3 09/21 16:05 Order name: Joey Wrap; Complete Time: 16:10 sp3 Administered Medications: 16:23 Drug: Acetaminophen PO 650 mg PO once Route: PO; ha1 16:29 Follow up: Response: No adverse reaction; Marked relief of symptoms ha1 Disposition Summary: 09/21/24 16:06 Discharge Ordered Notes: Location: Home sp3 Condition: Stable sp3 Diagnosis - Sprain of ankle sp3 Followup: sp3 - With: Private Physician - When: Upon discharge from the Emergency Department - Reason: Continuance of care Followup: sp3 - With: Raul Joyce MD - When: Upon discharge from the Emergency Department - Reason: Recheck today's complaints Discharge Instructions: - Discharge Summary Sheet sp3 - Ankle Sprain sp3 Forms: - Medication Reconciliation Form sp3 - Antibiotic Education sp3 - Prescription Opioid Use sp3 - Patient Portal Instructions sp3 - Leadership Thank You Letter sp3 Signatures: Dispatcher [employer] EDGabi Youssef, ZAYRA RN ll1 Melvi Madden MD MD sp3 Radha Holly RN RN ha1 Corrections: (The following items were deleted from the chart) 14:52 14:52 Knee Right 3 View+RAD.RAD.BRZ ordered. EDMS EDMS 14:52 14:52 Ankle Right 3 View+RAD.RAD.BRZ ordered. EDMS EDMS 15:02 15:00 Ankle Right 3 View+RAD.RAD.BRZ ordered. EDMS EDMS 15:02 15:00 Knee Right 3 View+RAD.RAD.BRZ ordered. EDMS EDMS
[2024-09-21] MEDS ORDERED: ACETAMINOPHEN 325 MG TABLET ONE (16:15)
--- NOTE | 2024-09-21 16:28 | RAD REPORT ---
EXAMINATION: XR Ankle Right 3 View CLINICAL INDICATION: Female, 69 years old. [facility] MAIN Pain;Smash injury Bed Name: 2 TECHNIQUE: 3 view radiographs of the right ankle were obtained. COMPARISON: No prior exam. FINDINGS: No bone or joint abnormality seen. No significant soft tissue swelling. Mild midfoot degene rative changes. IMPRESSION: No acute or significant abnormalities.
--- NOTE | 2024-09-21 16:43 | RAD REPORT ---
EXAM: XR Knee Right 3 View HISTORY: [facility] MAIN Pain;Smash injury Bed Name: IW2 COMPARISON: None TECHNIQUE: 3 views of the right knee were obtained. FINDINGS: Moderate knee effusion is seen. There is no evidence of acute fracture or dislocation. No significant degenerative changes are seen. Mineralization along the lateral meniscus. IMPRESSION: No acute osseous abnormality. Moderate joint effusion. Mineralization along the lateral meniscus,, may relate to mineralizing arthropathy such as CPPD.
[2024-09-24 15:25] VITALS: BP 117/75; TEMP 97; O2SAT 96
== END 2024-09-21 16:31 | disposition home or self-care (01) ==
LOC: ER 14:04
DX: S93.401A Sprain of unspecified ligament of right ankle, initial encounter (principal); W01.0XXA Fall on same level from slipping, tripping and stumbling without subsequent striking against object, initial encounter; I10 Essential (primary) hypertension; J44.9 Chronic obstructive pulmonary disease, unspecified; E78.00 Pure hypercholesterolemia, unspecified
CPT/HCPCS: 99283

== ENCOUNTER 2025-06-17 09:29 | Emergency (ER) | payer OTHER, BC ==
[2025-06-17] MEDS ORDERED: NA CHLORIDE 0.9% 1,000 ML ONE (10:28)
[2025-06-17] MEDS ORDERED: ONDANSETRON 4 MG/2 ML VIAL ONE (10:28)
[2025-06-17 10:40] LABS: Absolute Lymphocytes (CBC) 2.2 K/uL (0.7-4.9); Hematocrit 40.4 % (36.0-45.0); Hemoglobin 13.5 g/dL (12.0-15.0); MCH 30.6 pg (27.0-35.0); MCHC 33.5 g/dL (32.0-36.0); MCV 91.3 fL (80-100); MPV 7.3 fL (7.6-11.3); Nucleated RBC Absolute Count 0.0 (0-0); Nucleated Red Blood Cells % 0.0 % (0-0); RBC Red Blood Cell Count 4.42 M/uL (3.86-4.86); White Blood Count 11.10 thou/uL (4.3-10.9)
[2025-06-17 10:48] LABS: PT Prothrombin Time 14.1 SECONDS (10-13.0); Protime INR 1.26
[2025-06-17 11:03] LABS: AST/SGOT 13 U/L (15-37); Albumin 2.8 g/dL (3.4-5.0); Albumin/Globulin Ratio 0.7 (1.1-1.8); Alkaline Phosphatase 73 U/L (45-117); Anion Gap 10.8 mEq/L (5.0-15.0); BUN Blood Urea Nitrogen 8 mg/dL (7-18); Bilirubin Indirect, Calculated 1.2 mg/dL (0.2-0.8); Globulin 4.0 g/dL (2.3-3.5); Glucose Level 125 mg/dL (74-106); Lipase 14 U/L (13-75); Magnesium 1.8 mg/dL (1.6-2.4); NT PRO-BNP 582 pg/mL (<125); Potassium 2.8 mEq/L (3.5-5.1); Troponin High Sensitivity 3.8 pg/mL (<58.9)
[2025-06-17 11:04] LABS: ALT/SGPT < 14 U/L (13-56)
--- NOTE | 2025-06-17 11:30 | RAD REPORT ---
EXAMINATION: CT ABDOMEN AND PELVIS WITH CONTRAST CLINICAL INDICATION: vomiting, h/o AAA TECHNIQUE: CT abdomen and pelvis was performed, after the administration of IV contrast, as per [facility] protocol. Axial, sagittal and coronal reconstructions were obtained. One or more of the following dose reduction techniques were used: Automated exposure control, adjustment of the mA and k V according to patient size, and iterative reconstruction. Unless otherwise specified, incidental findings do not require dedicated imaging follow-up. COMPARISON: 04/14/2025 FINDINGS: LOWER CHEST: Linear scarring in the right lung base laterally. LIVER: Normal in size and contour. No focal lesion. Cholecystectomy clips. SPLEEN: Normal size. No focal lesion. PANCREAS: No mass, ductal dilation, or estelle-pancreatic fluid. ADRENALS: Normal; no mass. KIDNEYS: Posterior right renal scarring. Normal left kidney with small cysts present. GASTROINTESTINAL TRACT: No evidence of free air, significant intra-abdominal free fluid, bowel obstru ction or abscess. There is mild diverticulosis coli of the sigmoid colon without diverticulitis. APPENDIX: Appendix surgically absent. LYMPH NODES: No lymphadenopathy. MUSCULOSKELETAL: Postoperative change with hardware in place lumbar spine. ADDITIONAL FINDINGS: Aortic endograft, with excluded infrarenal abdominal aortic aneurysm, unchanged. Moderate fat-containing bilateral internal hernias. IMPRESSION: No acute abnormalities seen in the abdomen or pelvis.
[2025-06-17] MEDS ORDERED: NA CHLORIDE 0.9% 250 ML ONE (12:07)
[2025-06-17] MEDS ORDERED: KCL 20 MEQ/100 mL IVPB 100 ML IV ONE (12:07)
[2025-06-17] MEDS ORDERED: POTASSIUM 25 MEQ EFFERV TAB ONE (12:07)
--- NOTE | 2025-06-17 12:37 | EDPHYS ---
Physician Documentation [facility] Name: Amanda Malik Age: 69 yrs Sex: Female : 1955 Arrival Date: 06/17/2025 Time: 09:29 Bed 6 Private MD: ED Physician Melvi Madden HPI: 06/17 10:50 This 69 yrs old Female presents to ER via Wheelchair with complaints of Vomiting. sp3 10:50 69-year-old female with history of AAA s/p repair 10 years ago, COPD, GERD, history of sp3 diverticulitis, hyperlipidemia, hypertension presents to the ED with chief complaint vomiting and epigastric pain over the last day or 2. Patient states he has been lightheaded her blood pressure has been low. Initial blood pressure was 64/45 which has come up spontaneously. Review of systems negative for headache, fever, neck pain, cough, congestion, sinus pressure, ear pain, neck pain, lymph node swelling, chest pain, shortness of breath, upper back pain, mid back pain, lower back pain, flank pain, rash, syncope, near syncope, known sick contacts, travel history, trauma, or any other signs or symptoms on ROS at this time. Patient denies any blood or mucus in her emesis or stool. No melena or dark stools reported.. Historical: - Allergies: 09:59 No Known Drug Allergies; bp - PMHx: 09:59 AAA; COPD; Diverticulitis; GERD; High Cholesterol; Hypertension; bp - PSHx: 09:59 Appendectomy; back; breast reduction; hysterectomy; neck; Shoulder; bp - Immunization history:: Adult Immunizations unknown. - Infectious Disease History:: Denies. - Social history:: Smoking status: Patient denies any tobacco usage or history of. ROS: 10:54 Constitutional: Negative for fever, chills, and weight loss, Eyes: Negative for injury, sp3 pain, redness, and discharge, ENT: Negative for injury, pain, and discharge, Neck: Negative for injury, pain, and swelling, Cardiovascular: Negative for chest pain, palpitations, and edema, Respiratory: Negative for shortness of breath, cough, wheezing, and pleuritic chest pain, Back: Negative for injury and pain, MS/Extremity: Negative for injury and deformity, Skin: Negative for injury, rash, and discoloration, Neuro: Negative for headache, weakness, numbness, tingling, and seizure, Psych: Negative for depression, anxiety, suicide ideation, homicidal ideation, and hallucinations, Allergy/Immunology: Negative for hives, rash, and allergies, Endocrine: Negative for neck swelling, polydipsia, polyuria, polyphagia, and marked weight changes, 10:54 All other systems are negative, Exam: 10:54 Constitutional: This is a well developed, well nourished patient who is awake, alert, sp3 and in no acute distress. Head/Face: Normocephalic, atraumatic. Eyes: Pupils equal round and reactive to light, extra-ocular motions intact. Lids and lashes normal. Conjunctiva and sclera are non-icteric and not injected. Cornea within normal limits. Periorbital areas with no swelling, redness, or edema. Neck: Trachea midline, no thyromegaly or masses palpated, and no cervical lymphadenopathy. Supple, full range of motion without nuchal rigidity, or vertebral point tenderness. No Meningismus. Chest/axilla: Normal chest wall appearance and motion. Nontender with no deformity. No lesions are appreciated. Cardiovascular: Regular rate and rhythm with a normal S1 and S2. No gallops, murmurs, or rubs. Normal PMI, no JVD. No pulse deficits. Respiratory: Lungs have equal breath sounds bilaterally, clear to auscultation and percussion. No rales, rhonchi or wheezes noted. No increased work of breathing, no retractions or nasal flaring. Back: No spinal tenderness. No costovertebral tenderness. Full range of motion. Skin: Warm, dry with normal turgor. Normal color with no rashes, no lesions, and no evidence of cellulitis. MS/ Extremity: Pulses equal, no cyanosis. Neurovascular intact. Full, normal range of motion. Neuro: Awake and alert, GCS 15, oriented to person, place, time, and situation. Cranial nerves II-XII grossly intact. Motor strength 5/5 in all extremities. Sensory grossly intact. Cerebellar exam normal. Normal gait. 10:54 Abdomen/GI: Mild epigastric abdominal pain noted on palpation. No peritoneal signs, rebound or guarding. Nonsurgical abdomen. No active emesis in ED., 11:07 ECG was reviewed by the Attending Physician. EKG demonstrates normal sinus rhythm at 85 sp3 bpm with normal intervals except QTc of 490, normal QRS, normal axis and nonspecific diffuse ST/T changes without evidence of acute ischemia. Vital Signs: 09:55 BP 64 / 45; Pulse 85; Resp 14; Pulse Ox 93% ; Weight 57.61 kg; Pain 0/10; ss 10:01 BP 90 / 51; Pulse 73; Resp 16; Pulse Ox 91% on R/A; dd2 10:45 BP 95 / 76; Pulse 79; Resp 16; Pulse Ox 97% on 2 lpm NC; dd2 12:22 BP 105 / 80; Pulse 87; Resp 16; Pulse Ox 95% ; bp 14:38 BP 123 / 83; Pulse 98; Resp 16; Pulse Ox 94% ; bp 09:55 Pain Scale: Adult ss MDM: 09:52 Medical Screening Exam initiated sp3 10:57 Data reviewed: vital signs, nurses notes, old medical records, lab test result(s), EKG, sp3 radiologic studies. ED course: 69-year-old female with epigastric pain and vomiting. Differential diagnosis includes foodborne illness, viral illness, pancreatitis, biliary pathology, colitis, among others. Workup will include CT scan of the abdomen pelvis with IV contrast, full laboratory workup and general supportive care with IV fluids. Blood pressure is significantly better and I believe the initial one was aberrant.. 11:53 ED course: Potassium of 2.8 yielding critical result. Will replace with 50 mill sp3 equivalents p.o. and 20 mill equivalents IV. Blood pressure significantly better. Will also give p.o. challenge. CT scan demonstrates no significant abnormality. Patient likely has viral versus foodborne illness causing hypokalemia and dehydration.. 06/17 10:02 Order name: Basic Metabolic Panel; Complete Time: 11:46 sp3 06/17 10:02 Order name: CBC with Diff; Complete Time: 11:46 sp3 06/17 10:02 Order name: LFT's; Complete Time: 11:46 sp3 06/17 10:02 Order name: Magnesium; Complete Time: 11:46 sp3 06/17 10:02 Order name: NT PRO-BNP; Complete Time: 11:46 sp3 06/17 10:02 Order name: PT-INR; Complete Time: 11:46 sp3 06/17 10:02 Order name: Troponin HS; Complete Time: 11:46 sp3 06/17 10:02 Order name: Lactate w/ 2H reflex if indic.; Complete Time: 11:46 sp3 06/17 10:02 Order name: Lipase; Complete Time: 11:46 sp3 06/17 10:32 Order name: CT Abd/Pelvis - IV Contrast Only; Complete Time: 11:46 sp3 06/17 10:02 Order name: Cardiac monitoring; Complete Time: 10:24 sp3 06/17 10:02 Order name: EKG - Nurse/Tech; Complete Time: 11:07 sp3 06/17 10:02 Order name: IV Saline Lock; Complete Time: 10:24 sp3 06/17 10:02 Order name: Labs collected and sent; Complete Time: 10:24 sp3 06/17 10:02 Order name: O2 Per Protocol; Complete Time: 10:24 sp3 06/17 10:02 Order name: O2 Sat Monitoring; Complete Time: 10:24 sp3 06/17 11:47 Order name: PO challenge; Complete Time: 12:21 sp3 Administered Medications: 10:15 Drug: NS 0.9% IV 1000 ml IV at 1 bolus Per protocol; to be given as a bolus over 60 bp minutes Route: IV; Rate: 1 bolus; Site: right antecubital; 14:21 Follow up: IV Status: Completed infusion bp 10:15 Drug: Ondansetron IVP 4 mg IVP once; over 2 minutes Route: IVP; Site: right antecubital;bp 14:21 Follow up: Response: No adverse reaction bp 12:21 Drug: Potassium PO Effervescent Tablet 50 mEq PO once; dissolve in 4 ounces of water or bp juice Route: PO; 14:21 Follow up: Response: No adverse reaction bp 12:21 Drug: Potassium Chloride IV 20 mEq IV at calculated rate once; administer over 1 hour bp Route: IV; Rate: calculated rate; Site: right antecubital; 14:21 Follow up: IV Status: Completed infusion bp 14:21 Drug: HYDROcodone-acetaminophen PO 5 mg-325 mg 2 tabs PO once Route: PO; bp 14:21 Follow up: Response: No adverse reaction bp Disposition Summary: 06/17/25 12:37 Discharge Ordered Notes: Location: Home sp3 Condition: Stable sp3 Diagnosis - Gastroenteritis, hypokalemia sp3 Followup: sp3 - With: Private Physician - When: Upon discharge from the Emergency Department - Reason: Continuance of care Discharge Instructions: - Discharge Summary Sheet sp3 - Hypokalemia sp3 - Vomiting, Adult sp3 Forms: - Medication Reconciliation Form sp3 - Antibiotic Education sp3 - Prescription Opioid Use sp3 - Patient Portal Instructions sp3 - Leadership Thank You Letter sp3 Prescriptions: - ondansetron 4 mg Oral Tablet,disintegrating - take 1 tablet ORAL route every 6 hours as needed for nausea and vomiting; 20 sp3 tablet; Refills: 0, Product Selection Permitted Critical care time excluding procedures: 11:54 Critical care time: Bedside Care: 20 minutes, Consultation: 5 minutes, Family sp3 Intervention: 5 minutes. Total time: 30 minutes Signatures: Dispatcher [employer] Jake Parnell RN RN Melvi Peraza MD MD sp3 Corrections: (The following items were deleted from the chart) 10:03 10:03 BASIC METABOLIC PANEL+C.LAB.BRZ ordered. EDMS EDMS 10:03 10:03 CBC+H.LAB.BRZ ordered. EDMS EDMS 10:03 10:03 HEPATIC FUNCTION+C.LAB.BRZ ordered. EDMS EDMS 10:03 10:03 MAGNESIUM+C.LAB.BRZ ordered. EDMS EDMS 10:03 10:03 PROBNP+C.LAB.BRZ ordered. EDMS EDMS 10:03 10:03 PROTIME (+INR)+COAG.LAB.BRZ ordered. EDMS EDMS 10:03 10:03 Troponin High Sensitivity+C.LAB.BRZ ordered. EDMS EDMS 10:03 10:03 LACTATE+C.LAB.BRZ ordered. EDMS EDMS 10:03 10:03 LIPASE+C.LAB.BRZ ordered. EDMS EDMS 10:03 10:03 UA Rfx Marty Cult if indicated+U.LAB.BRZ ordered. EDMS EDMS
--- NOTE | 2025-06-17 12:37 | ER ---
Nurse's Notes [facility] Name: Amanda Malik Age: 69 yrs Sex: Female : 1955 Arrival Date: 06/17/2025 Time: 09:29 Bed 6 Private MD: Diagnosis: Gastroenteritis, hypokalemia Presentation: 06/17 09:56 Chief complaint: Patient states: N/V/D x 3 days. Coronavirus screen: Client denies ss travel out of the [place] in the last 14 days. Ebola Screen: Patient denies exposure to infectious person. Patient denies travel to an Ebola-affected area in the 21 days before illness onset. Initial Sepsis Screen: Does the patient meet any 2 criteria? No. Patient's initial sepsis screen is negative. Does the patient have a suspected source of infection? No. Patient's initial sepsis screen is negative. Risk Assessment: Do you want to hurt yourself or someone else? Patient reports no desire to harm self or others. Onset of symptoms was June 14, 2025. 09:56 Acuity: EMILY 2 ss 09:56 Method Of Arrival: Wheelchair ss Triage Assessment: 09:59 General: Appears in no apparent distress. Behavior is appropriate for age. Pain: Denies bp pain. EENT: No signs and/or symptoms were reported regarding the EENT system. Neuro: No deficits noted. Cardiovascular: No deficits noted. Respiratory: No deficits noted. GI: Reports nausea, vomiting. : No signs and/or symptoms were reported regarding the genitourinary system. Derm: No deficits noted. Musculoskeletal: No deficits noted. Historical: - Allergies: 09:59 No Known Drug Allergies; bp - PMHx: 09:59 AAA; COPD; Diverticulitis; GERD; High Cholesterol; Hypertension; bp - PSHx: 09:59 Appendectomy; back; breast reduction; hysterectomy; neck; Shoulder; bp - Immunization history:: Adult Immunizations unknown. - Infectious Disease History:: Denies. - Social history:: Smoking status: Patient denies any tobacco usage or history of. Screenin:00 [facility] ED Fall Risk Assessment (Adult) History of falling in the last 3 months, bp including since admission No falls in past 3 months (0 pts) Confusion or Disorientation No (0 pts) Intoxicated or Sedated No (0 pts) Impaired Gait No (0 pts) Mobility Assist Device Used No (0 pt) Altered Elimination No (0 pt) Score/Fall Risk Level 0 - 2 = Low Risk Oriented to surroundings. Abuse screen: Denies threats or abuse. Denies injuries from another. Nutritional screening: No deficits noted. Tuberculosis screening: No symptoms or risk factors identified. Assessment: 10:00 General: SEE TRIAGE NOTE. bp 12:00 Reassessment: No changes from previously documented assessment. Patient is alert, bp oriented x 3, equal unlabored respirations, skin warm/dry/pink. GI: Abdomen is non-distended. Vital Signs: 09:55 BP 64 / 45; Pulse 85; Resp 14; Pulse Ox 93% ; Weight 57.61 kg; Pain 0/10; ss 10:01 BP 90 / 51; Pulse 73; Resp 16; Pulse Ox 91% on R/A; dd2 10:45 BP 95 / 76; Pulse 79; Resp 16; Pulse Ox 97% on 2 lpm NC; dd2 12:22 BP 105 / 80; Pulse 87; Resp 16; Pulse Ox 95% ; bp 14:38 BP 123 / 83; Pulse 98; Resp 16; Pulse Ox 94% ; bp 09:55 Pain Scale: Adult ss ED Course: 09:31 Patient arrived in ED. mr 09:32 Melvi Madden MD is Attending Physician. sp3 09:55 Arm band placed on right wrist. ss 09:56 Triage completed. ss 09:57 Jake Maya, ZAYRA is Primary Nurse. bp 10:24 Initial lab(s) drawn, by me, sent to lab. Inserted saline lock: 22 gauge in right bp antecubital area, using aseptic technique. Blood collected. Flushed with 10 mL NS. 11:22 CT Abd/Pelvis - IV Contrast Only In Process Unspecified. EDMS 12:00 Patient has correct armband on for positive identification. bp 14:38 No provider procedures requiring assistance completed. IV discontinued, intact, ss bleeding controlled, No redness/swelling at site. Pressure dressing applied. Administered Medications: 10:15 Drug: NS 0.9% IV 1000 ml IV at 1 bolus Per protocol; to be given as a bolus over 60 bp minutes Route: IV; Rate: 1 bolus; Site: right antecubital; 14:21 Follow up: IV Status: Completed infusion bp 10:15 Drug: Ondansetron IVP 4 mg IVP once; over 2 minutes Route: IVP; Site: right antecubital;bp 14:21 Follow up: Response: No adverse reaction bp 12:21 Drug: Potassium PO Effervescent Tablet 50 mEq PO once; dissolve in 4 ounces of water or bp juice Route: PO; 14:21 Follow up: Response: No adverse reaction bp 12:21 Drug: Potassium Chloride IV 20 mEq IV at calculated rate once; administer over 1 hour bp Route: IV; Rate: calculated rate; Site: right antecubital; 14:21 Follow up: IV Status: Completed infusion bp 14:21 Drug: HYDROcodone-acetaminophen PO 5 mg-325 mg 2 tabs PO once Route: PO; bp 14:21 Follow up: Response: No adverse reaction bp Medication: 12:00 VIS not applicable for this client. bp Outcome: 12:37 Discharge ordered by MD. hi 14:38 Discharged to home ambulatory, 14:38 Condition: good 14:38 Discharge instructions given to patient, Instructed on discharge instructions, follow up and referral plans. medication usage, Demonstrated understanding of instructions, follow-up care, medications, Prescriptions given X 1, 14:39 Patient left the ED. ss Signatures: Dispatcher [employer] EDIA Dorina Gómez, Reg Karthik mr Reina Dial, RN RN Jake Pettit RN RN Melvi Peraza MD MD sp3 YELITZA GRAY RN RN dd2
[2025-06-17] MEDS ORDERED: HYDROCODONE/APAP 5/325 MG TAB ONE (14:16)
[2025-06-17 14:56] VITALS: BP 123/83; O2SAT 94
== END 2025-06-17 14:39 | disposition home or self-care (01) ==
LOC: ER 09:29
DX: K52.9 Noninfective gastroenteritis and colitis, unspecified (principal); E87.6 Hypokalemia
CPT/HCPCS: 96365; 96361; 93005; 85025; 80048; 36415; 83735; 85610; 80076; 83605; 84484; 83690; 83880; 74177; 96375; 99284; 96366; Q9967; J3480; J2405; J7050; J7030